=== PATIENT | female | born 1940 | race African-American/Black ===

== ENCOUNTER → 2016-09-17 | Day surgery (SDC) | payer MEDICARE, OTHER ==
[~2016-09-17] MED LIST: ACET325T9 PO; ALBU0.63 NEB; ALPR0.25 PEG; AMLO5TAB2 PEG; ATEN25TA PEG; BYSTOLIC5 MG PO; CEPH-264 PO; CETI10TA16 PO; CITA10TA4 PEG; CYPR4TAB PEG; DIPH25CA58 PO; DONE5TAB33 PEG; DONE5TAB7 PO; FENT1PAT17 TP; FENT1PAT91 TD; FENTANYL PF 100 MCG/2 ML VIAL. IV PRN; IPRA3AMP23 IH; IV RINGERS,LACTATED 1000ML 1,000 ML IV SCH; LEVO750T31 PO; LIDOCAINE 1% 1 ML SYRINGE. ID PRN; METO5SOL2 PEG; MIDAZOLAM HCL 2 MG/2 ML VIAL. IV PRN; ONDA4TAB12 PEG; OXYC-250 PEG; OXYC-323 PEG; OXYC5CAP3 PO; OXYC5SOL PEG; POLY17PO5 PO; PROAIR HFA8.5 GM IH; PROPOFOL 20 ML IV ONE; SACC250C PEG; SULF1TAB3 PO; VALS160T3 PEG
[2016-09-17 09:04] VITALS: BP 149/65
--- NOTE | 2016-09-17 09:58 | PDOC ---
G I PROGRESS NOTE Reason for Follow-up Leaking g-tube. Subjective Patient called office yesterday complaining of leaking tube. Presumed due to tube failure and scheduled for replacement today. On inspection of tube and conversation with patient, the tube itself is still functional, but the "plugs" for the holes in the feeding adaptor have been torn off, hence the leak. Physical Exam Abdomen benign. Tube as above. Flushed easily. Review of Relevant I have reviewed the following items miko (where applicable) has been applied. Medications Lactated Ringer's (Iv Lactated Ringers) 1,000 ml @ 125 mls/hr Q8H IV Last administered on 09/17/16t 09:09; Start 09/17/16 at 09:07; Stop 09/17/16 at 21:06 Active Scripts Active Atenolol 25 Mg Tablet 50 Mg PEG DAILY Amlodipine Besylate 5 Mg Tablet 5 Mg PEG DAILY Reported Bystolic (Nebivolol) 5 Mg Tablet 5 Mg PO DAILY Sulfamethoxazole-Tmp Ds Tablet (Sulfamethoxazole/Trimethoprim) 1 Each Tablet 1 Tab PO BID Oxycodone Hcl 5 Mg/5 Ml Solution 5 Mg PEG Q 4HRS PRN PAIN PRN Aricept (Donepezil Hcl) 5 Mg Tablet 5 Mg PEG DAILY Proair Hfa Inhaler (Albuterol Sulfate) 8.5 Gm Hfa.aer.ad 2 Puff IH PRN Q4-6HRS Albuterol Sulfate Neb Soln (Albuterol Sulfate) 0.63 Mg/3 Ml Vial.neb 1 Vial NEB PRN PRN Florastor (Saccharomyces Boulardii) 250 Mg Capsule 250 Mg PEG DAILY FENTANYL 50mcg/hr (Fentanyl) 1 Each Patch.td72 1 Patch TP Q3DAYS Xanax (Alprazolam) 0.25 Mg Tablet 0.25 Mg PEG DAILY PRN Citalopram Hbr (Citalopram Hydrobromide) 10 Mg Tablet 1 Tab PEG DAILY Ondansetron Odt (Ondansetron) 4 Mg Tab.rapdis 4 Mg PEG QIDPRN PRN Metoclopramide Hcl 5 Mg/5 Ml Solution 2 Mg PEG TID Cyproheptadine Hcl 4 Mg Tablet 2 Mg PEG TID Diovan (Valsartan) 160 Mg Tablet 160 Mg PEG DAILY Vitals/I & O Vital Sign - Last 24 Hours 09/17/16 09/17/16 09:00 09:04 Temp 98.2 98.2 Pulse 78 Resp 18 Pulse Ox 99 O2 Delivery Trach Collar O2 Flow Rate 2 Assessment Damaged feeding adaptor. Plan of Care Note New feeding adaptor attached to tube. Procedure cancelled. To call if any problems. PERRY MARION MD Sep 17, 2016 09:58
== END ==
LOC: SURG 08:22
PROVIDERS: ATTEND Internal Medicine Gastroenterology
DX: Z43.1 Encounter for attention to gastrostomy (principal); Z41.8 Encounter for other procedures for purposes other than remedying health state
CPT/HCPCS: 99211; J2704

== ENCOUNTER 2016-11-18 13:22 | Inpatient (IN) | payer MEDICARE, OTHER ==
[~2016-11-18] VITALS: Ht 170.2 cm; Wt 58.1 kg
[~2016-11-18 13:22] MED LIST changes: -FENTANYL PF 100 MCG/2 ML VIAL. IV PRN; -IV RINGERS,LACTATED 1000ML 1,000 ML IV SCH; -LIDOCAINE 1% 1 ML SYRINGE. ID PRN; -MIDAZOLAM HCL 2 MG/2 ML VIAL. IV PRN; -PROPOFOL 20 ML IV ONE
--- NOTE | 2016-11-18 14:08 | EKG ---
[facility] [address] [place] [address] Test Date: 2016-11-18 Test Time: 13:33:22 Pat Name: BERNARDO DE LEON Department: Room: Gender: F [employer]: : 1940 Requested By: Amanda MONTENEGRO Order Number: [id number] Reading MD: Measurements Intervals [place] Rate: 80 P: 22 CO: 236 QRS: -8 QRSD: 102 T: 41 QT: 404 QTc: 470 Interpretive Statements SINUS RHYTHM PROLONGED CO INTERVAL LEFT ATRIAL ABNORMALITY LEFTWARD AXIS RI6.01 Unconfirmed report No previous ECG available for comparison
[2016-11-18 14:12] LABS: BASO # 0.1 x10^3/uL (0.0-0.2); BASO % 1 % (0-3); EOS % 0 % (0-3); HEMATOCRIT 35.5 % (36.0-47.0); HEMOGLOBIN 11.4 g/dL (12.0-15.5); LYMPH # 2.1 x10^3/uL (1.0-4.8); LYMPH % 13 % (24-48); MEAN CORPUSCULAR HEMOGLOBIN 28 pg (25-35); MEAN CORPUSCULAR HGB CONC 32 g/dL (31-37); MEAN CORPUSCULAR VOLUME 86 fL (79-100); MONO % 5 % (0-9); NEUT % 80 % (31-73); PLATELET COUNT 349 x10^3/uL (140-400); RED BLOOD COUNT 4.15 x10^6/uL (3.50-5.40); RED CELL DISTRIBUTION WIDTH 15.3 % (11.5-14.5); WHITE BLOOD COUNT 15.9 x10^3/uL (4.0-11.0)
[2016-11-18 14:31] LABS: CALCIUM 9.3 mg/dL (8.5-10.1); GFR 65.4; POTASSIUM 3.7 mmol/L (3.5-5.1)
[2016-11-18 14:37] LABS: % BASOS 1 % (0-3)
[2016-11-18 14:39] LABS: PLT ESTIMATE ADEQUATE (ADEQUATE)
[2016-11-18 14:40] LABS: STOMATOCYTES MANY
[2016-11-18 14:42] LABS: TOXIC GRANULATION SLIGHT; TOXIC VACUOLATION SLIGHT
--- NOTE | 2016-11-18 14:50 | RAD ---
EXAM: Chest 2 views. HISTORY: Cough, shortness of breath, lung cancer. COMPARISON: 05/09/2016. FINDINGS: Frontal and lateral views of the chest are obtained. A tracheostomy appliance projects in expected position. A right-sided port catheter has its tip in the superior cavoatrial junction. Surgical clips are seen at the hiatus. A gastrostomy catheter is also noted. Retrocardiac opacity and volume loss is unchanged and corresponds with posttreatment change on prior CT of 07/17/2016. There are mild predominant interstitial opacities in the right base, new since the prior study. There is no pneumothorax or pleural effusion. The heart is not enlarged. There are atherosclerotic calcifications of the aorta. Hyperinflation is consistent with chronic obstructive pulmonary disease. IMPRESSION: 1. Airspace opacity in the right base consistent with aspiration, mild pulmonary edema, or pneumonia. 2. Posttreatment changes in the left lower lobe.
--- NOTE | 2016-11-18 15:14 | PHYS DOC ---
Past Medical History Past Medical History: Cancer, Hypertension, MRSA, Other Additional Past Medical Histor: LUNG AND LYMPH NODES CANCER Past Surgical History: Other Additional Past Surgical Histo: cataract, PEG tube, ca, TRACH Alcohol Use: None Drug Use: None Adult General Chief Complaint Chief Complaint: SHORTNESS OF BREATH HPI HPI Patient is a 76 year old female who presents with cough, dyspnea, and purulent trach sputum worsening over the past few days. She had decreased activity and is not performing her daily activities as well as usual (not feeding herself or giving herself meds). Has some left lower chest pain that is mild and achy. Has been able to ambulate to the restroom with assistance. Denies palpitations , lightheadedness, dizziness, vision changes, numbness, tingling, focal weakness. Review of Systems Review of Systems Constitutional: Denies fever or chills [] Eyes: Denies change in visual acuity, redness, or eye pain [] HENT: Denies nasal congestion or sore throat [] Respiratory: Has cough and shortness of breath [] Cardiovascular: No additional information not addressed in HPI [] GI: Denies abdominal pain, nausea, vomiting, bloody stools or diarrhea [] : Denies dysuria or hematuria [] Musculoskeletal: Denies back pain or joint pain [] Integument: Denies rash or skin lesions [] Neurologic: Denies headache, focal weakness or sensory changes [] Endocrine: Denies polyuria or polydipsia [] Current Medications Current Medications Allergies Allergies Allergies Coded Allergies Type Severity Reaction Last Updated Verified No Known Medication Allergies Allergy Unknown 09/17/16 Yes Physical Exam Physical Exam Constitutional: Well developed, thin, no acute distress, non-toxic appearance. [ ] HENT: Normocephalic, atraumatic, bilateral external ears normal, oropharynx moist, nose normal. [] Eyes: PERRLA, EOMI. [] Neck: Normal range of motion, supple. Trach midline with small amount of purulent discharge, nontender trachea [] Cardiovascular:Heart rate regular rhythm [] Lungs & Thorax: Mildly course bilateral breath sounds, no crackles or wheezing [] Abdomen: Bowel sounds normal, soft, no tenderness. [] Skin: Warm, dry, no erythema, no rash. [] Back: No tenderness, no CVA tenderness. [] Extremities: No tenderness, ROM intact. [] Neurologic: Alert, normal motor function, normal sensory function, no focal deficits noted. [] Psychologic: Affect normal, judgement normal, mood normal. [] Current Patient Data Vital Signs Vital Signs Date Time Temp Pulse Resp B/P Pulse Ox O2 Delivery O2 Flow Rate FiO2 11/18/16 14:58 76 172/79 100 Nasal Cannula 3 11/18/16 13:27 97.8 26 97.8 Lab Values Laboratory Tests Test 11/18/16 14:00 White Blood Count 15.9x10^3/uL (4.0-11.0) H Red Blood Count 4.15x10^6/uL (3.50-5.40) Hemoglobin 11.4g/dL (12.0-15.5) L Hematocrit 35.5% (36.0-47.0) L Mean Corpuscular Volume 86fL (79-100) Mean Corpuscular Hemoglobin 28pg (25-35) Mean Corpuscular Hemoglobin Concent 32g/dL (31-37) Red Cell Distribution Width 15.3% (11.5-14.5) H Platelet Count 349x10^3/uL (140-400) Neutrophils (%) (Auto) 80% (31-73) H Lymphocytes (%) (Auto) 13% (24-48) L Monocytes (%) (Auto) 5% (0-9) Eosinophils (%) (Auto) 0% (0-3) Basophils (%) (Auto) 1% (0-3) Neutrophils # (Auto) 12.8x10^3uL (1.8-7.7) H Lymphocytes # (Auto) 2.1x10^3/uL (1.0-4.8) Monocytes # (Auto) 0.8x10^3/uL (0.0-1.1) Eosinophils # (Auto) 0.1x10^3/uL (0.0-0.7) Basophils # (Auto) 0.1x10^3/uL (0.0-0.2) Segmented Neutrophils % 82% (35-66) H Band Neutrophils % 8% (0-9) Lymphocytes % 8% (24-48) L Monocytes % 1% (0-10) Basophils % 1% (0-3) Toxic Granulation Slight Toxic Vacuolation Slight Platelet Estimate Adequate (ADEQUATE) Stomatocytes Many Sodium Level 135mmol/L (136-145) L Potassium Level 3.7mmol/L (3.5-5.1) Chloride Level 95mmol/L (98-107) L Carbon Dioxide Level 35mmol/L (21-32) H Anion Gap 5 (6-14) L Blood Urea Nitrogen 21mg/dL (7-20) H Creatinine 1.0mg/dL (0.6-1.0) Estimated GFR (Cockcroft-Gault) 65.4 Glucose Level 141mg/dL (70-99) H Calcium Level 9.3mg/dL (8.5-10.1) Laboratory Tests 11/18/16 14:00 Laboratory Tests 11/18/16 14:00 EKG EKG EKG as interpreted by me as normal sinus rhythm with first-degree block, rate 80 , no ST-T changes, AL 236, QTC 470, no ectopy Back there Radiology/Procedures Radiology/Procedures Chest x-ray as interpreted by me as new right lower lung field infiltrate, otherwise nonacute Course & Med Decision Making Course & Med Decision Making Pertinent Labs and Imaging studies reviewed. (See chart for details) She has new oxygen requirement, leukocytosis, and concerning chest film. Will admit for severe community acquired pneumonia. Discussed case with Dr. Nina, who will admit. Román Disclaimer Román Disclaimer This electronic medical record was generated, in whole or in part, using a voice recognition dictation system. Departure Departure Impression: Primary Impression: CAP (community acquired pneumonia) Disposition: ADMITTED INPATIENT Condition: STABLE Referrals: CATHERINE MOSCOSO MD (PCP) Amanda MONTENEGRO MD Nov 18, 2016 15:14
[2016-11-18] MEDS ORDERED: LEVOFLOXACIN PER PHARMACY MC PRN (15:15)
[2016-11-18] MEDS ORDERED: MAG HYDROX/ALUMINUM HYD/SIMETH 30 ML ORAL.SUSP PO PRN (15:45)
[2016-11-18] MEDS ORDERED: LACTULOSE 20 GM/30 ML SOLUTION. PO PRN (15:45)
[2016-11-18] MEDS ORDERED: CALCIUM CARBONATE 500 MG TAB.CHEW PO PRN (15:45)
[2016-11-18] MEDS ORDERED: MAGNESIUM HYDROXIDE 2,400 MG/30 ML ORAL.SUSP. PO PRN (15:45)
[2016-11-18] MEDS ORDERED: ACETAMINOPHEN 325 MG TABLET. PO PRN (15:45)
[2016-11-18] MEDS ORDERED: PIP/TAZO PER PHARMACY MC PRN (15:45)
[2016-11-18] MEDS ORDERED: IBUPROFEN 400 MG TABLET. PO PRN (15:45)
[2016-11-18] MEDS ORDERED: BISACODYL 10 MG SUPP.RECT PR PRN (15:45)
[2016-11-18] MEDS ORDERED: MORPHINE SULFATE 2 MG/ML DISP.SYRIN. IV PRN (15:45)
[2016-11-18] MEDS ORDERED: PROCHLORPERAZINE 10 MG/2 ML VIAL. IV PRN (15:45)
[2016-11-18] MEDS ORDERED: PROCHLORPERAZINE 25 MG SUPP.RECT. PR PRN (15:45)
--- NOTE | 2016-11-18 15:56 | PDOC1 ---
History and Physical Date of Admission Date of Admission DATE: 11/18/16 TIME: 15:48 Identification/Chief Complaint Chief Complaint change in sputum, lots of secretions in trach Source Source: Caregiver, Chart review, Patient History of Present Illness History of Present Illness 76 y.o AA female with hx laryngeal CA with indwelling trach, lung CA stage 3 NO MO s/p radiation and chemo - off tx ( cancer free now), comes in bec of [facility] in secretions in her trach, change in color from green, yellow, gramajo and some admixed with blood. NO fevers, HAs indwelling PEG and she does her own Jevity 1,.2 8 cans a day. Dtr at bedside but pt lives alone at home,. CXR shows PNA on R base and middle lobe with atelectasis, WBC 15.9, no lactate drawn, REst of labs ok,. VS ok Past Medical History Cardiovascular: HTN Pulmonary: Other CENTRAL NERVOUS SYSTEM: Other GI: Other Heme/Onc: Anemia NOS Hepatobiliary: No pertinent hx Psych: No pertinent hx Musculoskeletal: Osteoarthritis Rheumatologic: No pertinent hx Infectious disease: No pertinent hx Renal/: No pertinent hx Endocrine: No pertinent hx Past Surgical History Past Surgical History: Cataract Removal, Other Family History Family History: Heart Disease, Family History Unknown Social History Smoke: Quit ALCOHOL: none Drugs: None Current Problem List Problem List Problems Medical Problems: (1) CAP (community acquired pneumonia) Status: Acute (2) CAP (community acquired pneumonia) Status: Acute Problems: Current Medications Current Medications Current Medications Levofloxacin/ Dextrose 1 each 1 each PRN DAILY PRN MC SEE COMMENTS; Start at 15:15 Levofloxacin/ Dextrose 150 ml @ 100 mls/hr 1X ONCE IV Last administered on t 15:19; Start 11/18/16 at 15:45; Stop 11/18/16 at 17:14 Levofloxacin/ Dextrose (LEVAQUIN 750mg PREMIX) 150 ml @ 100 mls/hr Q48H IV ; Start 11/20/16 at 16:00 Ondansetron HCl (Zofran) 4 mg PRN Q6HRS PRN IV NAUSEA/VOMITING; Start 11/18/16 at 15:45; Status UNV Prochlorperazine Edisylate (Compazine) 10 mg PRN Q6HRS PRN IV NAUSEA/VOMITING; Start 11/18/16 at 15:45; Status UNV Prochlorperazine (Compazine) 25 mg PRN Q12HR PRN [place] NAUSEA/VOMITING; Start 11/18 at 15:45; Status UNV Al Hydroxide/Mg Hydroxide (Mylanta Plus Xs) 30 ml PRN Q3HRS PRN PO HEARTBURN / GAS; Start 11/18/16 at 15:45; Status UNV Calcium Carbonate/ Glycine (Tums) 500 mg PRN Q3HRS PRN PO UPSET STOMACH; Start 11/18/16 at 15:45; Status UNV Oxycodone HCl (Roxicodone) 5 mg PRN Q3HRS PRN PO BREAKTHROUGH PAIN; Start at 15:45; Status UNV Morphine Sulfate 1 mg PRN Q2HR PRN IV PAIN; Start 11/18/16 at 15:45; Status UNV Acetaminophen (Tylenol) 650 mg PRN Q6HRS PRN PO MILD PAIN / TEMP; Start at 15:45; Status UNV Ibuprofen (Motrin) 400 mg PRN Q6HRS PRN PO MILD PAIN; Start 11/18/16 at 15:45; Status UNV Docusate Sodium (Colace) 100 mg BID PO ; Start 11/18/16 at 21:00; Status UNV Magnesium Hydroxide (Milk Of Magnesia) 2,400 mg PRN Q12HR PRN PO CONSTIPATION; Start 11/18/16 at 15:45; Status UNV Lactulose 20 gm PRN Q12HR PRN PO CONSTIPATION; Start 11/18/16 at 15:45; Status UNV Bisacodyl (Dulcolax Supp) 10 mg PRN DAILY PRN [place] CONSTIPATION; Start 11/18/16 at 15:45; Status UNV Enoxaparin Sodium (Lovenox 40mg Syringe) 40 mg Q24H SQ ; Start 11/18/16 at 15:45 ; Status UNV Piperacillin Sod/ Tazobactam Sod (Zosyn Per Pharmacy) 1 each PRN DAILY PRN MC SEE COMMENTS; Start 11/18/16 at 15:45; Status UNV Guaifenesin (Robitussin Dm) 10 ml QID PO ; Start 11/18/16 at 17:00; Status UNV Active Scripts Active Atenolol 25 Mg Tablet 50 Mg PEG DAILY Amlodipine Besylate 5 Mg Tablet 5 Mg PEG DAILY Reported Bystolic (Nebivolol) 5 Mg Tablet 5 Mg PO DAILY Sulfamethoxazole-Tmp Ds Tablet (Sulfamethoxazole/Trimethoprim) 1 Each Tablet 1 Tab PO BID Oxycodone Hcl 5 Mg/5 Ml Solution 5 Mg PEG Q 4HRS PRN PAIN PRN Aricept (Donepezil Hcl) 5 Mg Tablet 5 Mg PEG DAILY Proair Hfa Inhaler (Albuterol Sulfate) 8.5 Gm Hfa.aer.ad 2 Puff IH PRN Q4-6HRS Albuterol Sulfate Neb Soln (Albuterol Sulfate) 0.63 Mg/3 Ml Vial.neb 1 Vial NEB PRN PRN Florastor (Saccharomyces Boulardii) 250 Mg Capsule 250 Mg PEG DAILY FENTANYL 50mcg/hr (Fentanyl) 1 Each Patch.td72 1 Patch TP Q3DAYS Xanax (Alprazolam) 0.25 Mg Tablet 0.25 Mg PEG DAILY PRN Citalopram Hbr (Citalopram Hydrobromide) 10 Mg Tablet 1 Tab PEG DAILY Ondansetron Odt (Ondansetron) 4 Mg Tab.rapdis 4 Mg PEG QIDPRN PRN Metoclopramide Hcl 5 Mg/5 Ml Solution 2 Mg PEG TID Cyproheptadine Hcl 4 Mg Tablet 2 Mg PEG TID Diovan (Valsartan) 160 Mg Tablet 160 Mg PEG DAILY Allergies Allergies: Coded Allergies: No Known Medication Allergies (Verified Allergy, Unknown, 09/17/16) ROS Review of System cant be obtained, trached, weak Physical Exam General: Oriented X3, Cooperative, Other (weak) HEENT: Atraumatic, PERRLA Lungs: Normal air movement, Other (dec BS R base, no wheezes) Heart: S1S2, RRR Cardiovascular: S1, S2 Breasts: Normal Abdomen: Normal bowel sounds, Soft, No tenderness, No hepatosplenomegaly, No masses, Other (indwelling PEG) Rectal Exam: not examined PELVIC: Nml ext genitalia Extremities: No clubbing, No cyanosis, No edema, Normal pulses, No tenderness/ swelling Skin: No rashes, No breakdown, No significant lesion Psych/Mental Status: Mental status NL, Mood NL Vitals Vitals Vital Signs Date Time Temp Pulse Resp B/P Pulse Ox O2 Delivery O2 Flow Rate FiO2 3/7/17 13:27 97.8 80 26 188/87 84 Room Air 97.8 Labs Labs Laboratory Tests Test 11/18/16 14:00 White Blood Count 15.9x10^3/uL (4.0-11.0) Red Blood Count 4.15x10^6/uL (3.50-5.40) Hemoglobin 11.4g/dL (12.0-15.5) Hematocrit 35.5% (36.0-47.0) Mean Corpuscular Volume 86fL (79-100) Mean Corpuscular Hemoglobin 28pg (25-35) Mean Corpuscular Hemoglobin Concent 32g/dL (31-37) Red Cell Distribution Width 15.3% (11.5-14.5) Platelet Count 349x10^3/uL (140-400) Neutrophils (%) (Auto) 80% (31-73) Lymphocytes (%) (Auto) 13% (24-48) Monocytes (%) (Auto) 5% (0-9) Eosinophils (%) (Auto) 0% (0-3) Basophils (%) (Auto) 1% (0-3) Neutrophils # (Auto) 12.8x10^3uL (1.8-7.7) Lymphocytes # (Auto) 2.1x10^3/uL (1.0-4.8) Monocytes # (Auto) 0.8x10^3/uL (0.0-1.1) Eosinophils # (Auto) 0.1x10^3/uL (0.0-0.7) Basophils # (Auto) 0.1x10^3/uL (0.0-0.2) Segmented Neutrophils % 82% (35-66) Band Neutrophils % 8% (0-9) Lymphocytes % 8% (24-48) Monocytes % 1% (0-10) Basophils % 1% (0-3) Toxic Granulation Slight Toxic Vacuolation Slight Platelet Estimate Adequate (ADEQUATE) Stomatocytes Many Sodium Level 135mmol/L (136-145) Potassium Level 3.7mmol/L (3.5-5.1) Chloride Level 95mmol/L (98-107) Carbon Dioxide Level 35mmol/L (21-32) Anion Gap 5 (6-14) Blood Urea Nitrogen 21mg/dL (7-20) Creatinine 1.0mg/dL (0.6-1.0) Estimated GFR (Cockcroft-Gault) 65.4 Glucose Level 141mg/dL (70-99) Calcium Level 9.3mg/dL (8.5-10.1) Laboratory Tests Test 11/18/16 14:00 White Blood Count 15.9x10^3/uL (4.0-11.0) Red Blood Count 4.15x10^6/uL (3.50-5.40) Hemoglobin 11.4g/dL (12.0-15.5) Hematocrit 35.5% (36.0-47.0) Mean Corpuscular Volume 86fL (79-100) Mean Corpuscular Hemoglobin 28pg (25-35) Mean Corpuscular Hemoglobin Concent 32g/dL (31-37) Red Cell Distribution Width 15.3% (11.5-14.5) Platelet Count 349x10^3/uL (140-400) Neutrophils (%) (Auto) 80% (31-73) Lymphocytes (%) (Auto) 13% (24-48) Monocytes (%) (Auto) 5% (0-9) Eosinophils (%) (Auto) 0% (0-3) Basophils (%) (Auto) 1% (0-3) Neutrophils # (Auto) 12.8x10^3uL (1.8-7.7) Lymphocytes # (Auto) 2.1x10^3/uL (1.0-4.8) Monocytes # (Auto) 0.8x10^3/uL (0.0-1.1) Eosinophils # (Auto) 0.1x10^3/uL (0.0-0.7) Basophils # (Auto) 0.1x10^3/uL (0.0-0.2) Segmented Neutrophils % 82% (35-66) Band Neutrophils % 8% (0-9) Lymphocytes % 8% (24-48) Monocytes % 1% (0-10) Basophils % 1% (0-3) Toxic Granulation Slight Toxic Vacuolation Slight Platelet Estimate Adequate (ADEQUATE) Stomatocytes Many Sodium Level 135mmol/L (136-145) Potassium Level 3.7mmol/L (3.5-5.1) Chloride Level 95mmol/L (98-107) Carbon Dioxide Level 35mmol/L (21-32) Anion Gap 5 (6-14) Blood Urea Nitrogen 21mg/dL (7-20) Creatinine 1.0mg/dL (0.6-1.0) Estimated GFR (Cockcroft-Gault) 65.4 Glucose Level 141mg/dL (70-99) Calcium Level 9.3mg/dL (8.5-10.1) VTE Prophylaxis Ordered VTE Prophylaxis Devices: Yes VTE Pharmacological Prophylaxi: Yes Assessment/Plan Assessment/Plan 1. CAP 2. SIRS POA, no sepsis 3. LUng CA stage 3 N0M0, s/p radiation and chemo - claims to be cancer free 4. Laryngeal CA currently trached 5. Dysphagia with indwelling pEG on TF 6. 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 AOCD 8. HTN 9. Hx DVT 10. HX COPD< prev heavy smoker 11. HTN, dyslipdimeia - chronic stable PLAN: Add zosyn to levaquin Consult pulmo given co morbiods DVT prophy given clinical hx Check sputum cx and gram stain NUtrition consult for tF PT/OT Resume home meds COugh med Dw ER and pt and dtr Seen at ER HEAVEN KRAUS MD Nov 18, 2016 15:56
[2016-11-18] MEDS ORDERED: ONDANSETRON ODT 4 MG TAB.RAPDIS PEG PRN (16:00)
--- NOTE | 2016-11-18 16:03 | ACF ---
Admission Forms Criteria PNEUMONIA, COMMUNITY ACQUIRED Clinical Indications for Admission to Inpatient Care ( Place 'X' for any and all applicable criteria): Admission is indicated for ANY ONE of the following (1)(2)(3): [ ]I. Hypoxemia indicated by ANY ONE of the following: [ ]a) Oxygen saturation less than 90% while breathing room air [ ]b) PO2 less than 60 mm Hg (8.0 kPa) while breathing room air [ ]c) Chronic lung disease with significant deterioration from baseline oxygenation [ ]II. Appropriate diagnostic testing and treatment unavailable in outpatient or recovery facility (eg,testing or infection control measures unavailable(10) [X]III. Moderate-risk or high-risk category patients (Pneumonia Severity Index (PSI) class IV or V, or CURB-65 score of 3 or greater). [ ]IV. Outpatient treatment failure as indicated by ANY ONE of the following(9) : [ ]a) Failure to respond to antibiotic (eg, resistant organism) [ ]b) Clinically significant adverse effects from medication (eg, vomiting) [ ]c) Complications of pneumonia (eg, empyema, bacteremia) [ ]d) Significant worsening of comorbid cond necessitating inpatient care (eg, chronic heart failure) [ ]V. Intermediate-risk category patients (eg, PSI class III or CURB-65 score 2) who do not improve with initial therapy and observation. [ ]. Immunocompromised patients (eg, AIDS, chronic steroid use) at moderate or high risk based on clinical evaluation. [ ]VII. Complicated pleural effusions (eg, exudative, loculated) [ ]VIII.Hemodynamic instability [ ] IX. Altered mental status that is severe or persistent. [ ]X. Dehydration that is severe or persistent. [ ]XI. Bacteremia [ ]XII. Respiratory finding (eg. tachypnea) that do not respond to outpatient or observation care treatment Extended stay beyond goal length of stay may be needed for (20) [ ]a) Unclear diagnosis [ ]b) Pleural disease [ ]c) Severe pneumonia or treatment failure (25 [ ]d) Respiratory failure (anticipate invasive or noninvasive ventilatory support) [ ]e) Abnormal serum electrolytes (serum Na concentration less than 135 mEq/L (mmol/L) (32)(33) [ ]f) Clinically significant comorbid illness (eg, heart failure, atrial fibrillation with rapid heart rate, alcohol withdrawal, renal insufficiency)(34)(35) [ ]g) Comorbid acute exacerbation of COPD(36) [ ]h) Concomitant diagnosis of malignancy that may be associated with malnutrition, immunologic impairment, or bronchial obstruction. [ ]i) Concomitant altered mental status [ ]j) Culture-identified Gram-negative or antibiotic-resistant organism (eg, Pseudomonas, methicillin-resistant Staphylococcus aureus)(30) [ ]k) Healthcare-associated pneumonia The original [employer] content created by [employer] has been revised. The portions of the content which have been revised are identified through the use of italic text or in bold, and [facility] has neither reviewed nor approved the modified material. All other unmodified content is copyright [employer]. Please see references footnoted in the original [facility] [employer] edition 2016 Admission Criteria Met?: Yes ENRRIQUE LEWIS Nov 18, 2016 16:03
[2016-11-18] MEDS ORDERED: ALBUTEROL SULFATE 2.5 MG/3 ML NEBU. NEB PRN (16:15)
[2016-11-18 16:24] VITALS: BP 137/80
[2016-11-18] MEDS: DONEPEZIL HCL 5 MG TABLET. PEG SCH (16:30)
[2016-11-18] MEDS: AMLODIPINE BESYLATE 5 MG TABLET PEG SCH (16:30)
[2016-11-18] MEDS: LOSARTAN POTASSIUM 50 MG TABLET. PO SCH (16:30)
[2016-11-18] MEDS: ATENOLOL 25 MG TABLET PEG SCH (16:30)
[2016-11-18] MEDS: PIPERACILLIN/TAZOBACTAM 3.375 GM in IV NORMAL SALINE 50ML 50 ML IV SCH ×2 (17:30→23:31)
[2016-11-18] MEDS: CITALOPRAM 10 MG TABLET. PEG SCH (17:32)
[2016-11-18] MEDS: OXYCODONE IR 5 MG TABLET. PO PRN (17:37)
[2016-11-18] MEDS: METOCLOPRAMIDE HCL 10 MG/10 ML SOLUTION. PO SCH (17:40)
[2016-11-18] MEDS: GUAIFENESIN DM 200MG/20MG 10 ML SYRUP. PO SCH ×2 (18:26→20:13)
[2016-11-18 18:58] VITALS: BP 137/80
[2016-11-18 19:00] VITALS: BP 136/71
[2016-11-18] MEDS: DOCUSATE SODIUM 100 MG CAPSULE PO SCH (20:13)
[2016-11-18] MEDS: METOPROLOL TART IMMED RELEASE 25 MG TABLET PO SCH (20:13)
[2016-11-18] MEDS: CYPROHEPTADINE 4 MG TABLET. PEG SCH (20:14)
[2016-11-18] MEDS: ONDANSETRON PF 4 MG/2 ML VIAL. IV PRN (20:14)
[2016-11-18] MEDS: ALPRAZOLAM 0.25 MG TABLET PEG PRN (20:15)
[2016-11-18] MEDS: ENOXAPARIN 40 MG/0.4 ML DISP.SYRIN. SQ SCH (20:15)
[2016-11-18] MEDS: IPRATRPIUM/ALBUTEROL 0.5/2.5MG 3 ML NEBU. NEB SCH ×2 (20:45→20:59)
[2016-11-18 23:00] VITALS: BP 173/88
[2016-11-19 03:00] VITALS: BP 135/70
[2016-11-19] MEDS: PIPERACILLIN/TAZOBACTAM 3.375 GM in IV NORMAL SALINE 50ML 50 ML IV SCH ×4 (06:23→23:58)
[2016-11-19 06:38] LABS: BASO % 0 % (0-3); EOS % 0 % (0-3); HEMATOCRIT 34.6 % (36.0-47.0); HEMOGLOBIN 10.9 g/dL (12.0-15.5); LYMPH # 2.4 x10^3/uL (1.0-4.8); LYMPH % 17 % (24-48); MEAN CORPUSCULAR HEMOGLOBIN 27 pg (25-35); MEAN CORPUSCULAR HGB CONC 31 g/dL (31-37); MEAN CORPUSCULAR VOLUME 86 fL (79-100); MONO % 6 % (0-9); NEUT % 77 % (31-73); PLATELET COUNT 337 x10^3/uL (140-400); RED BLOOD COUNT 4.01 x10^6/uL (3.50-5.40); RED CELL DISTRIBUTION WIDTH 15.5 % (11.5-14.5); WHITE BLOOD COUNT 13.9 x10^3/uL (4.0-11.0)
[2016-11-19 06:44] LABS: CALCIUM 9.5 mg/dL (8.5-10.1); CREATININE 1.1 mg/dL (0.6-1.0); GFR 58.6; POTASSIUM 3.6 mmol/L (3.5-5.1)
[2016-11-19 07:00] VITALS: BP 145/60
[2016-11-19] MEDS: IPRATRPIUM/ALBUTEROL 0.5/2.5MG 3 ML NEBU. NEB SCH ×4 (07:24→19:47)
[2016-11-19] MEDS: GUAIFENESIN DM 200MG/20MG 10 ML SYRUP. PO SCH ×4 (09:00→22:00)
[2016-11-19] MEDS: DOCUSATE SODIUM 100 MG CAPSULE PO SCH ×3 (09:00→22:02)
[2016-11-19] MEDS: METOCLOPRAMIDE HCL 10 MG/10 ML SOLUTION. PO SCH ×3 (09:42→18:14)
[2016-11-19] MEDS: CYPROHEPTADINE 4 MG TABLET. PEG SCH ×3 (09:43→22:01)
[2016-11-19] MEDS: AMLODIPINE BESYLATE 5 MG TABLET PEG SCH (09:44)
[2016-11-19] MEDS: LOSARTAN POTASSIUM 50 MG TABLET. PO SCH (09:44)
[2016-11-19] MEDS: CITALOPRAM 10 MG TABLET. PEG SCH (09:45)
[2016-11-19] MEDS: ATENOLOL 25 MG TABLET PEG SCH (09:45)
[2016-11-19] MEDS: SACCHAROMYCES BOULARDII 250 MG CAPSULE. PEG SCH (09:45)
[2016-11-19] MEDS: DONEPEZIL HCL 5 MG TABLET. PEG SCH (09:45)
[2016-11-19] MEDS: FENTANYL 50MCG/HR PATCH. TD SCH (09:46)
[2016-11-19] MEDS: METOPROLOL TART IMMED RELEASE 25 MG TABLET PO SCH ×2 (09:46→22:02)
[2016-11-19] MEDS: OXYCODONE IR 5 MG TABLET. PO PRN ×2 (09:58→13:55)
--- NOTE | 2016-11-19 10:37 | PDOC ---
PROGRESS NOTES Chief Complaint Chief Complaint 1. CAP 2. SIRS POA, no sepsis 3. LUng CA stage 3 N0M0, s/p radiation and chemo - claims to be cancer free 4. Laryngeal CA currently trached 5. Dysphagia with indwelling pEG on TF 6. 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 AOCD 8. HTN 9. Hx DVT 10. HX COPD< prev heavy smoker 11. HTN, dyslipdimeia - chronic stable History of Present Illness History of Present Illness Doing ok No fevers Tolerating tube feeds Tracheal secretions have just been sent PLAN: CPM Await pulmo Ff up tracheal secretions sent to lab PT/OT Monitor leukocytosis Vitals Vitals Vital Signs Date Time Temp Pulse Resp B/P Pulse Ox O2 Delivery O2 Flow Rate FiO2 11/19/16 09:58 88 Nasal Cannula 2.0 11/19/16 09:46 85 145/60 11/19/16 07:00 98.7 20 98.7 Physical Exam General: Oriented X3, Cooperative, Other (weak) Lungs: Clear, Other Abdomen: Normal bowel sounds, Soft, No tenderness, No hepatosplenomegaly, No masses, Other (indwelling PEG) Extremities: No clubbing, No cyanosis, No edema, Normal pulses, No tenderness/ swelling Skin: No rashes, No breakdown, No significant lesion Labs LABS Laboratory Tests Test 11/18/16 14:00 11/19/16 06:15 White Blood Count 15.9x10^3/uL (4.0-11.0) 13.9x10^3/uL (4.0-11.0) Red Blood Count 4.15x10^6/uL (3.50-5.40) 4.01x10^6/uL (3.50-5.40) Hemoglobin 11.4g/dL (12.0-15.5) 10.9g/dL (12.0-15.5) Hematocrit 35.5% (36.0-47.0) 34.6% (36.0-47.0) Mean Corpuscular Volume 86fL (79-100) 86fL (79-100) Mean Corpuscular Hemoglobin 28pg (25-35) 27pg (25-35) Mean Corpuscular Hemoglobin Concent 32g/dL (31-37) 31g/dL (31-37) Red Cell Distribution Width 15.3% (11.5-14.5) 15.5% (11.5-14.5) Platelet Count 349x10^3/uL (140-400) 337x10^3/uL (140-400) Neutrophils (%) (Auto) 80% (31-73) 77% (31-73) Lymphocytes (%) (Auto) 13% (24-48) 17% (24-48) Monocytes (%) (Auto) 5% (0-9) 6% (0-9) Eosinophils (%) (Auto) 0% (0-3) 0% (0-3) Basophils (%) (Auto) 1% (0-3) 0% (0-3) Neutrophils # (Auto) 12.8x10^3uL (1.8-7.7) 10.6x10^3uL (1.8-7.7) Lymphocytes # (Auto) 2.1x10^3/uL (1.0-4.8) 2.4x10^3/uL (1.0-4.8) Monocytes # (Auto) 0.8x10^3/uL (0.0-1.1) 0.8x10^3/uL (0.0-1.1) Eosinophils # (Auto) 0.1x10^3/uL (0.0-0.7) 0.0x10^3/uL (0.0-0.7) Basophils # (Auto) 0.1x10^3/uL (0.0-0.2) 0.0x10^3/uL (0.0-0.2) Segmented Neutrophils % 82% (35-66) Band Neutrophils % 8% (0-9) Lymphocytes % 8% (24-48) Monocytes % 1% (0-10) Basophils % 1% (0-3) Toxic Granulation Slight Toxic Vacuolation Slight Platelet Estimate Adequate (ADEQUATE) Stomatocytes Many Sodium Level 135mmol/L (136-145) 136mmol/L (136-145) Potassium Level 3.7mmol/L (3.5-5.1) 3.6mmol/L (3.5-5.1) Chloride Level 95mmol/L (98-107) 98mmol/L (98-107) Carbon Dioxide Level 35mmol/L (21-32) 37mmol/L (21-32) Anion Gap 5 (6-14) 1 (6-14) Blood Urea Nitrogen 21mg/dL (7-20) 19mg/dL (7-20) Creatinine 1.0mg/dL (0.6-1.0) 1.1mg/dL (0.6-1.0) Estimated GFR (Cockcroft-Gault) 65.4 58.6 Glucose Level 141mg/dL (70-99) 102mg/dL (70-99) Calcium Level 9.3mg/dL (8.5-10.1) 9.5mg/dL (8.5-10.1) Review of Systems Review of Systems dementia. trached - unable to obtain Assessment and Plan Assessmemt and Plan Problems Medical Problems: (1) CAP (community acquired pneumonia) Status: Acute (2) CAP (community acquired pneumonia) Status: Acute Problems: Comment Review of Relevant I have reviewed the following items miko (where applicable) has been applied. Labs Laboratory Tests Test 11/18/16 14:00 11/19/16 06:15 White Blood Count 15.9x10^3/uL (4.0-11.0) 13.9x10^3/uL (4.0-11.0) Red Blood Count 4.15x10^6/uL (3.50-5.40) 4.01x10^6/uL (3.50-5.40) Hemoglobin 11.4g/dL (12.0-15.5) 10.9g/dL (12.0-15.5) Hematocrit 35.5% (36.0-47.0) 34.6% (36.0-47.0) Mean Corpuscular Volume 86fL (79-100) 86fL (79-100) Mean Corpuscular Hemoglobin 28pg (25-35) 27pg (25-35) Mean Corpuscular Hemoglobin Concent 32g/dL (31-37) 31g/dL (31-37) Red Cell Distribution Width 15.3% (11.5-14.5) 15.5% (11.5-14.5) Platelet Count 349x10^3/uL (140-400) 337x10^3/uL (140-400) Neutrophils (%) (Auto) 80% (31-73) 77% (31-73) Lymphocytes (%) (Auto) 13% (24-48) 17% (24-48) Monocytes (%) (Auto) 5% (0-9) 6% (0-9) Eosinophils (%) (Auto) 0% (0-3) 0% (0-3) Basophils (%) (Auto) 1% (0-3) 0% (0-3) Neutrophils # (Auto) 12.8x10^3uL (1.8-7.7) 10.6x10^3uL (1.8-7.7) Lymphocytes # (Auto) 2.1x10^3/uL (1.0-4.8) 2.4x10^3/uL (1.0-4.8) Monocytes # (Auto) 0.8x10^3/uL (0.0-1.1) 0.8x10^3/uL (0.0-1.1) Eosinophils # (Auto) 0.1x10^3/uL (0.0-0.7) 0.0x10^3/uL (0.0-0.7) Basophils # (Auto) 0.1x10^3/uL (0.0-0.2) 0.0x10^3/uL (0.0-0.2) Segmented Neutrophils % 82% (35-66) Band Neutrophils % 8% (0-9) Lymphocytes % 8% (24-48) Monocytes % 1% (0-10) Basophils % 1% (0-3) Toxic Granulation Slight Toxic Vacuolation Slight Platelet Estimate Adequate (ADEQUATE) Stomatocytes Many Sodium Level 135mmol/L (136-145) 136mmol/L (136-145) Potassium Level 3.7mmol/L (3.5-5.1) 3.6mmol/L (3.5-5.1) Chloride Level 95mmol/L (98-107) 98mmol/L (98-107) Carbon Dioxide Level 35mmol/L (21-32) 37mmol/L (21-32) Anion Gap 5 (6-14) 1 (6-14) Blood Urea Nitrogen 21mg/dL (7-20) 19mg/dL (7-20) Creatinine 1.0mg/dL (0.6-1.0) 1.1mg/dL (0.6-1.0) Estimated GFR (Cockcroft-Gault) 65.4 58.6 Glucose Level 141mg/dL (70-99) 102mg/dL (70-99) Calcium Level 9.3mg/dL (8.5-10.1) 9.5mg/dL (8.5-10.1) Laboratory Tests Test 11/18/16 14:00 11/19/16 06:15 White Blood Count 15.9x10^3/uL (4.0-11.0) 13.9x10^3/uL (4.0-11.0) Red Blood Count 4.15x10^6/uL (3.50-5.40) 4.01x10^6/uL (3.50-5.40) Hemoglobin 11.4g/dL (12.0-15.5) 10.9g/dL (12.0-15.5) Hematocrit 35.5% (36.0-47.0) 34.6% (36.0-47.0) Mean Corpuscular Volume 86fL (79-100) 86fL (79-100) Mean Corpuscular Hemoglobin 28pg (25-35) 27pg (25-35) Mean Corpuscular Hemoglobin Concent 32g/dL (31-37) 31g/dL (31-37) Red Cell Distribution Width 15.3% (11.5-14.5) 15.5% (11.5-14.5) Platelet Count 349x10^3/uL (140-400) 337x10^3/uL (140-400) Neutrophils (%) (Auto) 80% (31-73) 77% (31-73) Lymphocytes (%) (Auto) 13% (24-48) 17% (24-48) Monocytes (%) (Auto) 5% (0-9) 6% (0-9) Eosinophils (%) (Auto) 0% (0-3) 0% (0-3) Basophils (%) (Auto) 1% (0-3) 0% (0-3) Neutrophils # (Auto) 12.8x10^3uL (1.8-7.7) 10.6x10^3uL (1.8-7.7) Lymphocytes # (Auto) 2.1x10^3/uL (1.0-4.8) 2.4x10^3/uL (1.0-4.8) Monocytes # (Auto) 0.8x10^3/uL (0.0-1.1) 0.8x10^3/uL (0.0-1.1) Eosinophils # (Auto) 0.1x10^3/uL (0.0-0.7) 0.0x10^3/uL (0.0-0.7) Basophils # (Auto) 0.1x10^3/uL (0.0-0.2) 0.0x10^3/uL (0.0-0.2) Segmented Neutrophils % 82% (35-66) Band Neutrophils % 8% (0-9) Lymphocytes % 8% (24-48) Monocytes % 1% (0-10) Basophils % 1% (0-3) Toxic Granulation Slight Toxic Vacuolation Slight Platelet Estimate Adequate (ADEQUATE) Stomatocytes Many Sodium Level 135mmol/L (136-145) 136mmol/L (136-145) Potassium Level 3.7mmol/L (3.5-5.1) 3.6mmol/L (3.5-5.1) Chloride Level 95mmol/L (98-107) 98mmol/L (98-107) Carbon Dioxide Level 35mmol/L (21-32) 37mmol/L (21-32) Anion Gap 5 (6-14) 1 (6-14) Blood Urea Nitrogen 21mg/dL (7-20) 19mg/dL (7-20) Creatinine 1.0mg/dL (0.6-1.0) 1.1mg/dL (0.6-1.0) Estimated GFR (Cockcroft-Gault) 65.4 58.6 Glucose Level 141mg/dL (70-99) 102mg/dL (70-99) Calcium Level 9.3mg/dL (8.5-10.1) 9.5mg/dL (8.5-10.1) Medications Current Medications Levofloxacin/ Dextrose 1 each 1 each PRN DAILY PRN MC SEE COMMENTS; Start at 15:15 Levofloxacin/ Dextrose 150 ml @ 100 mls/hr 1X ONCE IV Last administered on 15:19; Start 11/18/16 at 15:45; Stop 11/18/16 at 17:14; Status DC Levofloxacin/ Dextrose (LEVAQUIN 750mg PREMIX) 150 ml @ 100 mls/hr Q48H IV ; Start 11/20/16 at 16:00 Ondansetron HCl (Zofran) 4 mg PRN Q6HRS PRN IV NAUSEA/VOMITING Last administered on 11/18/16 20:14; Start 11/18/16 at 15:45 Prochlorperazine Edisylate (Compazine) 10 mg PRN Q6HRS PRN IV NAUSEA/VOMITING Last administered on 11/18/16 22:29; Start 11/18/16 at 15:45 Prochlorperazine (Compazine) 25 mg PRN Q12HR PRN DC NAUSEA/VOMITING; Start 11/18 at 15:45 Al Hydroxide/Mg Hydroxide (Mylanta Plus Xs) 30 ml PRN Q3HRS PRN PO HEARTBURN / GAS; Start 11/18/16 at 15:45 Calcium Carbonate/ Glycine (Tums) 500 mg PRN Q3HRS PRN PO UPSET STOMACH; Start 11/18/16 at 15:45 Oxycodone HCl (Roxicodone) 5 mg PRN Q3HRS PRN PO BREAKTHROUGH PAIN Last administered on 11/19/16 09:58; Start 11/18/16 at 15:45 Morphine Sulfate 1 mg PRN Q2HR PRN IV PAIN; Start 11/18/16 at 15:45 Acetaminophen (Tylenol) 650 mg PRN Q6HRS PRN PO MILD PAIN / TEMP; Start at 15:45 Ibuprofen (Motrin) 400 mg PRN Q6HRS PRN PO MILD PAIN; Start 11/18/16 at 15:45 Docusate Sodium (Colace) 100 mg BID PO Last administered on 11/18/16 20:13; Start 11/18/16 at 21:00 Magnesium Hydroxide (Milk Of Magnesia) 2,400 mg PRN Q12HR PRN PO CONSTIPATION; Start 11/18/16 at 15:45 Lactulose 20 gm PRN Q12HR PRN PO CONSTIPATION; Start 11/18/16 at 15:45 Bisacodyl (Dulcolax Supp) 10 mg PRN DAILY PRN DC CONSTIPATION; Start 11/18/16 at 15:45 Enoxaparin Sodium (Lovenox 40mg Syringe) 40 mg Q24H SQ Last administered on 11/18 20:15; Start 11/18/16 at 21:00 Piperacillin Sod/ Tazobactam Sod (Zosyn Per Pharmacy) 1 each PRN DAILY PRN MC SEE COMMENTS; Start 11/18/16 at 15:45 Guaifenesin 10 ml 10 ml QID PO Last administered on 11/18/16 20:13; Start at 17:00 Piperacillin Sod/ Tazobactam Sod/ Sodium Chloride (Zosyn/Iv Sodium Chloride 0.9 % 50ml) 50 ml @ 100 mls/hr Q6HRS IV Last administered on 11/19/16 06:23; Start 11/18/16 at 17:00 Alprazolam (Xanax) 0.25 mg PRN DAILY PRN PEG ANXIETY / AGITATION Last administered on 11/18/16 20:15; Start 11/18/16 at 16:00 Amlodipine Besylate (Norvasc) 5 mg DAILY PEG Last administered on 11/19/16 09: 44; Start 11/18/16 at 16:30 Atenolol (Tenormin) 50 mg DAILY PEG Last administered on 11/19/16 09:45; Start 11/18/16 at 16:30 Citalopram Hydrobromide (Celexa) 10 mg DAILY PEG Last administered on 11/19/16 09:45; Start 11/18/16 at 16:30 Cyproheptadine HCl (Periactin) 2 mg TID PEG Last administered on 11/19/16 09:43 ; Start 11/18/16 at 21:00 Donepezil HCl (Aricept) 5 mg DAILY PEG Last administered on 11/19/16 09:45; Start 11/18/16 at 16:30 Fentanyl (Duragesic 50mcg/ Hr Patch) 1 patch Q3DAYS TD Last administered on 11/19 09:46; Start 11/19/16 at 09:00 Ondansetron HCl (Zofran Odt) 4 mg QIDPRN PRN PEG NAUSEA/VOMITING; Start at 16:00 Oxycodone HCl 5 mg PRN QID PRN PEG PAIN; Start 11/18/16 at 16:00 Saccharomyces Boulardii (Florastor) 250 mg DAILY PEG Last administered on 09:45; Start 11/19/16 at 09:00 Albuterol Sulfate (Ventolin Neb Soln) 2.5 mg PRN Q4HRS PRN NEB SHORTNESS OF BREATH; Start 11/18/16 at 16:15 Metoclopramide HCl (Reglan) 2 mg TIDAC PO Last administered on 11/19/16 09:42; Start 11/18/16 at 16:30 Metoprolol Tartrate (Lopressor) 25 mg BID PO Last administered on 11/19/16 09: 46; Start 11/18/16 at 21:00 Losartan Potassium (Cozaar) 100 mg DAILY PO Last administered on 11/19/16 09:44 ; Start 11/18/16 at 16:30 Albuterol/ Ipratropium (Duoneb) 3 ml RTQID NEB Last administered on 11/19/16 07 :24; Start 11/18/16 at 16:30 Active Scripts Active Atenolol 25 Mg Tablet 50 Mg PEG DAILY Amlodipine Besylate 5 Mg Tablet 5 Mg PEG DAILY Reported Bystolic (Nebivolol) 5 Mg Tablet 5 Mg PO DAILY Sulfamethoxazole-Tmp Ds Tablet (Sulfamethoxazole/Trimethoprim) 1 Each Tablet 1 Tab PO BID Oxycodone Hcl 5 Mg/5 Ml Solution 5 Mg PEG Q 4HRS PRN PAIN PRN Aricept (Donepezil Hcl) 5 Mg Tablet 5 Mg PEG DAILY Proair Hfa Inhaler (Albuterol Sulfate) 8.5 Gm Hfa.aer.ad 2 Puff IH PRN Q4-6HRS Albuterol Sulfate Neb Soln (Albuterol Sulfate) 0.63 Mg/3 Ml Vial.neb 1 Vial NEB PRN PRN Florastor (Saccharomyces Boulardii) 250 Mg Capsule 250 Mg PEG DAILY FENTANYL 50mcg/hr (Fentanyl) 1 Each Patch.td72 1 Patch TP Q3DAYS Xanax (Alprazolam) 0.25 Mg Tablet 0.25 Mg PEG DAILY PRN Citalopram Hbr (Citalopram Hydrobromide) 10 Mg Tablet 1 Tab PEG DAILY Ondansetron Odt (Ondansetron) 4 Mg Tab.rapdis 4 Mg PEG QIDPRN PRN Metoclopramide Hcl 5 Mg/5 Ml Solution 2 Mg PEG TID Cyproheptadine Hcl 4 Mg Tablet 2 Mg PEG TID Diovan (Valsartan) 160 Mg Tablet 160 Mg PEG DAILY Vitals/I & O Vital Sign - Last 24 Hours 11/18/16 11/18/16 11/18/16 11/18/16 13:27 13:58 14:28 14:58 Temp 97.8 97.8 Pulse 80 76 74 76 Resp 26 B/P 188/87 173/81 169/78 172/79 Pulse Ox 84 100 99 100 O2 Delivery Room Air Nasal Cannula Nasal Cannula Nasal Cannula O2 Flow Rate 3 3 3 11/18/16 11/18/16 11/18/16 11/18/16 15:28 16:24 17:37 18:39 Temp 97.7 97.7 Pulse 76 76 Resp 18 B/P 159/74 137/80 Pulse Ox 100 96 96 O2 Delivery Nasal Cannula Nasal Cannula Nasal Cannula Nasal Cannula O2 Flow Rate 3 2.0 2.0 2.0 11/18/16 11/18/16 11/18/16 11/18/16 18:58 19:00 20:00 20:13 Temp 97.7 97.4 97.7 97.4 Pulse 76 88 76 Resp 20 B/P 137/80 136/71 137/80 Pulse Ox 96 95 O2 Delivery Nasal Cannula O2 Flow Rate 2.0 2.0 11/18/16 11/18/16 11/19/16 11/19/16 21:00 23:00 03:00 07:00 Temp 97.8 98.5 98.7 97.8 98.5 98.7 Pulse 90 81 85 Resp 22 18 20 B/P 173/88 135/70 145/60 Pulse Ox 94 96 95 88 O2 Delivery Nasal Cannula Room Air O2 Flow Rate 2.0 11/19/16 11/19/16 11/19/16 11/19/16 07:29 08:00 09:44 09:44 Pulse 85 85 B/P 145/60 145/60 O2 Delivery Nasal Cannula Nasal Cannula O2 Flow Rate 2.0 2.0 11/19/16 11/19/16 11/19/16 11/19/16 09:45 09:46 09:46 09:58 Pulse 85 85 B/P 145/60 145/60 Pulse Ox 88 88 O2 Delivery Nasal Cannula Nasal Cannula O2 Flow Rate 2.0 2.0 Intake and Output 11/18/16 11/18/16 11/19/16 15:00 23:00 07:00 Intake Total 250 ml 500 ml Balance 250 ml 500 ml HEAVEN KRAUS MD Nov 19, 2016 10:37
[2016-11-19 11:00] VITALS: BP 138/68
--- NOTE | 2016-11-19 13:45 | CONS ---
DATE OF CONSULTATION: ATTENDING PHYSICIAN: Dr. Nina. REASON FOR CONSULTATION: Pneumonia, laryngeal cancer, lung cancer, tracheostomy. 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 She was treated with radiation and chemotherapy. She then had biopsy proven recurrence and she underwent tracheostomy at [facility]. 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 The patient has chronic tracheostomy in place. She was brought into the hospital with complaint of increasing purulent secretions through her trach. The color was thick yellow and it was noticeable on her chest as well draining from her trach. It was occasionally mixed with blood. There were no subjective fevers. She has a PEG tube in place for which she receives enteral nutrition. I have reviewed the patient's chest x-ray, which showed new right lower lobe infiltrate. There were some prominent interstitial markings as well. There were post-treatment changes in the left lower lobe. The patient was started on antibiotic Levaquin and Zosyn. I have been asked to see for further evaluation. She has a trach in place with a speaking valve. She is unable to answer any questions, but nods yes and no to questions. PAST MEDICAL HISTORY: History of hypertension, history of osteoarthritis, history of lung cancer stage, status post radiation and chemo, history of laryngeal cancer/radiation, status post tracheostomy. PAST SURGICAL HISTORY: Tracheostomy and PEG tube. ALLERGIES: None. CURRENT MEDICATIONS: Reviewed including broad-spectrum antibiotics. REVIEW OF SYSTEMS: Unable to obtain from the patient. PHYSICAL EXAMINATION: VITAL SIGNS: Blood pressure stable, afebrile, pulse ox 97% on 2 liters. ____. HEENT: Sclerae nonicteric. Trach in place with a speaking valve. LUNGS: Diminished breath sounds with few rhonchi. CARDIOVASCULAR: Regular rate. ABDOMEN: Soft. PEG in place. EXTREMITIES: With no pitting edema. LABORATORY DATA: Reviewed. White cell count was 15.9, hemoglobin 10.9, platelets are 337. Chemistry showed a BUN of 19, creatinine of 1.1. IMPRESSION: 1. Community-acquired right lower lobe pneumonia. 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 I suspect gram-negative pneumonia. We will obtain cultures. 2. 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 Subsequently, she underwent tracheostomy and receive more radiation treatment. 3. 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 RECOMMENDATIONS: 1. Continue with present broad-spectrum antibiotics. 2. Obtain trach secretions./ culture 3. Continue with bronchodilators. 4. DVT prophylaxis with Lovenox. 5. P.r.n. pain medication. 6. Trach suctioning p.r.n. 7. We will follow along with you. MARY LANIER MD DR: AINSLEY/sena JOB#: [id number] / [id number] CATA
[2016-11-19 15:00] VITALS: BP 104/51
[2016-11-19] MEDS: OXYCODONE 5 MG/5 ML ORAL SOLUTION. PEG PRN (18:32)
[2016-11-19 19:00] VITALS: BP 116/54
[2016-11-19] MEDS: ENOXAPARIN 40 MG/0.4 ML DISP.SYRIN. SQ SCH (22:07)
[2016-11-19 23:00] VITALS: BP 121/56
[2016-11-20 02:49] VITALS: BP 131/65
[2016-11-20] MEDS: PIPERACILLIN/TAZOBACTAM 3.375 GM in IV NORMAL SALINE 50ML 50 ML IV SCH ×3 (05:54→16:55)
[2016-11-20] MEDS: OXYCODONE 5 MG/5 ML ORAL SOLUTION. PEG PRN ×2 (06:07→17:48)
[2016-11-20 07:00] VITALS: BP 114/48
[2016-11-20] MEDS: IPRATRPIUM/ALBUTEROL 0.5/2.5MG 3 ML NEBU. NEB SCH ×4 (07:04→19:36)
[2016-11-20] MEDS: CITALOPRAM 10 MG TABLET. PEG SCH (09:10)
[2016-11-20] MEDS: GUAIFENESIN DM 200MG/20MG 10 ML SYRUP. PO SCH ×4 (09:10→22:07)
[2016-11-20] MEDS: DONEPEZIL HCL 5 MG TABLET. PEG SCH (09:10)
[2016-11-20] MEDS: METOPROLOL TART IMMED RELEASE 25 MG TABLET PO SCH ×2 (09:11→22:04)
[2016-11-20] MEDS: SACCHAROMYCES BOULARDII 250 MG CAPSULE. PEG SCH (09:11)
[2016-11-20] MEDS: CYPROHEPTADINE 4 MG TABLET. PEG SCH ×3 (09:11→22:04)
[2016-11-20] MEDS: DOCUSATE SODIUM 100 MG CAPSULE PO SCH ×2 (09:11→21:00)
[2016-11-20] MEDS: LOSARTAN POTASSIUM 50 MG TABLET. PO SCH (09:11)
[2016-11-20] MEDS: METOCLOPRAMIDE HCL 10 MG/10 ML SOLUTION. PO SCH ×3 (09:12→15:51)
[2016-11-20] MEDS: AMLODIPINE BESYLATE 5 MG TABLET PEG SCH (09:12)
[2016-11-20] MEDS: ATENOLOL 25 MG TABLET PEG SCH (09:12)
[2016-11-20] MEDS ORDERED: VANCOMYCIN 1 GM in IV NORMAL SALINE 250ML 250 ML IV SCH (09:15)
[2016-11-20] MEDS ORDERED: VANCOMYCIN 1.5 GM in IV NORMAL SALINE 500ML BAG 500 ML IV ONE (10:00)
[2016-11-20 10:50] VITALS: BP 109/56
--- NOTE | 2016-11-20 11:18 | PDOC ---
PULMONARY PROGRESS NOTES Subjective no soa Vitals Vital Signs Date Time Temp Pulse Resp B/P Pulse Ox O2 Delivery O2 Flow Rate FiO2 11/20/16 10:50 97.8 81 18 109/56 92 Nasal Cannula 2.0 97.8 General: Alert, No acute distress Lungs: Other (decrease bs) Cardiovascular: S1, S2 Abdomen: Soft, Non-tender, Other Neuro Exam: Alert Extremities: No Edema Skin: Warm Labs Laboratory Tests Test 11/18/16 14:00 11/18/16 20:40 11/19/16 06:15 White Blood Count 15.9x10^3/uL (4.0-11.0) 13.9x10^3/uL (4.0-11.0) Red Blood Count 4.15x10^6/uL (3.50-5.40) 4.01x10^6/uL (3.50-5.40) Hemoglobin 11.4g/dL (12.0-15.5) 10.9g/dL (12.0-15.5) Hematocrit 35.5% (36.0-47.0) 34.6% (36.0-47.0) Mean Corpuscular Volume 86fL (79-100) 86fL (79-100) Mean Corpuscular Hemoglobin 28pg (25-35) 27pg (25-35) Mean Corpuscular Hemoglobin Concent 32g/dL (31-37) 31g/dL (31-37) Red Cell Distribution Width 15.3% (11.5-14.5) 15.5% (11.5-14.5) Platelet Count 349x10^3/uL (140-400) 337x10^3/uL (140-400) Neutrophils (%) (Auto) 80% (31-73) 77% (31-73) Lymphocytes (%) (Auto) 13% (24-48) 17% (24-48) Monocytes (%) (Auto) 5% (0-9) 6% (0-9) Eosinophils (%) (Auto) 0% (0-3) 0% (0-3) Basophils (%) (Auto) 1% (0-3) 0% (0-3) Neutrophils # (Auto) 12.8x10^3uL (1.8-7.7) 10.6x10^3uL (1.8-7.7) Lymphocytes # (Auto) 2.1x10^3/uL (1.0-4.8) 2.4x10^3/uL (1.0-4.8) Monocytes # (Auto) 0.8x10^3/uL (0.0-1.1) 0.8x10^3/uL (0.0-1.1) Eosinophils # (Auto) 0.1x10^3/uL (0.0-0.7) 0.0x10^3/uL (0.0-0.7) Basophils # (Auto) 0.1x10^3/uL (0.0-0.2) 0.0x10^3/uL (0.0-0.2) Segmented Neutrophils % 82% (35-66) Band Neutrophils % 8% (0-9) Lymphocytes % 8% (24-48) Monocytes % 1% (0-10) Basophils % 1% (0-3) Toxic Granulation Slight Toxic Vacuolation Slight Platelet Estimate Adequate (ADEQUATE) Stomatocytes Many Sodium Level 135mmol/L (136-145) 136mmol/L (136-145) Potassium Level 3.7mmol/L (3.5-5.1) 3.6mmol/L (3.5-5.1) Chloride Level 95mmol/L (98-107) 98mmol/L (98-107) Carbon Dioxide Level 35mmol/L (21-32) 37mmol/L (21-32) Anion Gap 5 (6-14) 1 (6-14) Blood Urea Nitrogen 21mg/dL (7-20) 19mg/dL (7-20) Creatinine 1.0mg/dL (0.6-1.0) 1.1mg/dL (0.6-1.0) Estimated GFR (Cockcroft-Gault) 65.4 58.6 Glucose Level 141mg/dL (70-99) 102mg/dL (70-99) Calcium Level 9.3mg/dL (8.5-10.1) 9.5mg/dL (8.5-10.1) Nasal Screen MRSA (PCR) Positive (Negative) Medications Active Scripts Medications Dose Route/Sig Days Date Category Bystolic (Nebivolol) 5 Mg Tablet 5 Mg PO DAILY 09/17/16 Reported Atenolol 25 Mg Tablet 50 Mg PEG DAILY 06/05/16 Rx Amlodipine Besylate 5 Mg Tablet 5 Mg PEG DAILY 06/05/16 Rx Sulfamethoxazole-Tmp Ds Tablet (Sulfamethoxazole/Trimethoprim) 1 Each Tablet 1 Tab PO BID 06/02/16 Reported Oxycodone Hcl 5 Mg/5 Ml Solution 5 Mg PEG Q 4HRS PRN PAIN PRN 09/10/15 Reported Aricept (Donepezil Hcl) 5 Mg Tablet 5 Mg PEG DAILY 08/16/15 Reported Proair Hfa Inhaler (Albuterol Sulfate) 8.5 Gm Hfa.aer.ad 2 Puff IH PRN Q4-6HRS 08/16/15 Reported Albuterol Sulfate Neb Soln (Albuterol Sulfate) 0.63 Mg/3 Ml Vial.neb 1 Vial NEB PRN PRN 06/19/14 Reported Florastor (Saccharomyces Boulardii) 250 Mg Capsule 250 Mg PEG DAILY 06/19/14 Reported FENTANYL 50mcg/hr (Fentanyl) 1 Each Patch.td72 1 Patch TP Q3DAYS 06/19/14 Reported Xanax (Alprazolam) 0.25 Mg Tablet 0.25 Mg PEG DAILY PRN 06/19/14 Reported Citalopram Hbr (Citalopram Hydrobromide) 10 Mg Tablet 1 Tab PEG DAILY 06/19/14 Reported Ondansetron Odt (Ondansetron) 4 Mg Tab.rapdis 4 Mg PEG QIDPRN PRN 06/19/14 Reported Metoclopramide Hcl 5 Mg/5 Ml Solution 2 Mg PEG TID 12/02/13 Reported Cyproheptadine Hcl 4 Mg Tablet 2 Mg PEG TID 12/02/13 Reported Diovan (Valsartan) 160 Mg Tablet 160 Mg PEG DAILY 12/02/13 Reported Impression . 1. Community-acquired right lower lobe pneumonia. 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 I suspect gram-negative pneumonia. We will obtain cultures. 2. 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 Subsequently, she underwent tracheostomy and receive more radiation treatment. 3. 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 Plan . 1. Continue with present broad-spectrum antibiotics. 2. Obtain trach secretions./ culture 3. Continue with bronchodilators. 4. DVT prophylaxis with Lovenox. 5. P.r.n. pain medication. 6. Trach suctioning p.r.n. 7. We will follow along with you. MARY LANIER MD Nov 20, 2016 11:17
[2016-11-20 11:25] LABS: OBC FLU VALID
--- NOTE | 2016-11-20 12:30 | PDOC ---
PROGRESS NOTES Chief Complaint Chief Complaint 1. CAP 2. SIRS POA, no sepsis 3. LUng CA stage 3 N0M0, s/p radiation and chemo - claims to be cancer free 4. Laryngeal CA currently trached 5. Dysphagia with indwelling pEG on TF 6. 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 AOCD 8. HTN 9. Hx DVT 10. HX COPD< prev heavy smoker 11. HTN, dyslipdimeia - chronic stable 12. Positive MRSA History of Present Illness History of Present Illness Doing ok - nods No fevers BUt WBc remains 13 NAsal swab is positive for mRSA Tolerating tube feeds Tracheal secretions have just been sent - WAS SPIT not sputum PLAN: Add vanco 1 gm IV qD PT/OT Cont levaquin and zosyn Elytes since on vanc and antibiotics Cont TF COnsider interval CXR rakesh, CBC recheck rakesh MAy include lactate AM labs cont dvt prophy Re send SPUTUM PLS - (tracheal secretions) Vitals Vitals Vital Signs Date Time Temp Pulse Resp B/P Pulse Ox O2 Delivery O2 Flow Rate FiO2 11/20/16 11:37 94 Nasal Cannula 2.0 11/20/16 10:50 97.8 81 18 109/56 97.8 Physical Exam General: Oriented X3, Cooperative, Other (weak) Lungs: Other (decrease bs) Abdomen: Normal bowel sounds, Soft, No tenderness, No hepatosplenomegaly, No masses, Other (indwelling PEG) Extremities: No clubbing, No cyanosis, No edema, Normal pulses, No tenderness/ swelling Skin: No rashes, No breakdown, No significant lesion Labs LABS Laboratory Tests Test 11/20/16 10:45 Influenza Type A Antigen Negative (NEGATIVE) Influenza Type B Antigen Negative (NEGATIVE) Review of Systems Review of Systems non verbal/trached Assessment and Plan Assessmemt and Plan Problems Medical Problems: (1) CAP (community acquired pneumonia) Status: Acute (2) CAP (community acquired pneumonia) Status: Acute Problems: Comment Review of Relevant I have reviewed the following items miko (where applicable) has been applied. Labs Laboratory Tests Test 11/18/16 14:00 11/18/16 20:40 11/19/16 06:15 11/20/16 10:45 White Blood Count 15.9x10^3/uL (4.0-11.0) 13.9x10^3/uL (4.0-11.0) Red Blood Count 4.15x10^6/uL (3.50-5.40) 4.01x10^6/uL (3.50-5.40) Hemoglobin 11.4g/dL (12.0-15.5) 10.9g/dL (12.0-15.5) Hematocrit 35.5% (36.0-47.0) 34.6% (36.0-47.0) Mean Corpuscular Volume 86fL (79-100) 86fL (79-100) Mean Corpuscular Hemoglobin 28pg (25-35) 27pg (25-35) Mean Corpuscular Hemoglobin Concent 32g/dL (31-37) 31g/dL (31-37) Red Cell Distribution Width 15.3% (11.5-14.5) 15.5% (11.5-14.5) Platelet Count 349x10^3/uL (140-400) 337x10^3/uL (140-400) Neutrophils (%) (Auto) 80% (31-73) 77% (31-73) Lymphocytes (%) (Auto) 13% (24-48) 17% (24-48) Monocytes (%) (Auto) 5% (0-9) 6% (0-9) Eosinophils (%) (Auto) 0% (0-3) 0% (0-3) Basophils (%) (Auto) 1% (0-3) 0% (0-3) Neutrophils # (Auto) 12.8x10^3uL (1.8-7.7) 10.6x10^3uL (1.8-7.7) Lymphocytes # (Auto) 2.1x10^3/uL (1.0-4.8) 2.4x10^3/uL (1.0-4.8) Monocytes # (Auto) 0.8x10^3/uL (0.0-1.1) 0.8x10^3/uL (0.0-1.1) Eosinophils # (Auto) 0.1x10^3/uL (0.0-0.7) 0.0x10^3/uL (0.0-0.7) Basophils # (Auto) 0.1x10^3/uL (0.0-0.2) 0.0x10^3/uL (0.0-0.2) Segmented Neutrophils % 82% (35-66) Band Neutrophils % 8% (0-9) Lymphocytes % 8% (24-48) Monocytes % 1% (0-10) Basophils % 1% (0-3) Toxic Granulation Slight Toxic Vacuolation Slight Platelet Estimate Adequate (ADEQUATE) Stomatocytes Many Sodium Level 135mmol/L (136-145) 136mmol/L (136-145) Potassium Level 3.7mmol/L (3.5-5.1) 3.6mmol/L (3.5-5.1) Chloride Level 95mmol/L (98-107) 98mmol/L (98-107) Carbon Dioxide Level 35mmol/L (21-32) 37mmol/L (21-32) Anion Gap 5 (6-14) 1 (6-14) Blood Urea Nitrogen 21mg/dL (7-20) 19mg/dL (7-20) Creatinine 1.0mg/dL (0.6-1.0) 1.1mg/dL (0.6-1.0) Estimated GFR (Cockcroft-Gault) 65.4 58.6 Glucose Level 141mg/dL (70-99) 102mg/dL (70-99) Calcium Level 9.3mg/dL (8.5-10.1) 9.5mg/dL (8.5-10.1) Nasal Screen MRSA (PCR) Positive (Negative) Influenza Type A Antigen Negative (NEGATIVE) Influenza Type B Antigen Negative (NEGATIVE) Laboratory Tests Test 11/20/16 10:45 Influenza Type A Antigen Negative (NEGATIVE) Influenza Type B Antigen Negative (NEGATIVE) Microbiology 11/18/16 Blood Culture - Preliminary, Resulted NO GROWTH AFTER 1 DAY 11/19/16 Gram Stain - Final, Complete Medications Current Medications Levofloxacin/ Dextrose 1 each 1 each PRN DAILY PRN MC SEE COMMENTS; Start at 15:15 Levofloxacin/ Dextrose 150 ml @ 100 mls/hr 1X ONCE IV Last administered on t 15:19; Start 11/18/16 at 15:45; Stop 11/18/16 at 17:14; Status DC Levofloxacin/ Dextrose (LEVAQUIN 750mg PREMIX) 150 ml @ 100 mls/hr Q48H IV ; Start 11/20/16 at 16:00 Ondansetron HCl (Zofran) 4 mg PRN Q6HRS PRN IV NAUSEA/VOMITING Last administered on 11/18/16 20:14; Start 11/18/16 at 15:45 Prochlorperazine Edisylate (Compazine) 10 mg PRN Q6HRS PRN IV NAUSEA/VOMITING Last administered on 11/18/16 22:29; Start 11/18/16 at 15:45 Prochlorperazine (Compazine) 25 mg PRN Q12HR PRN [place] NAUSEA/VOMITING; Start 11/18 at 15:45 Al Hydroxide/Mg Hydroxide (Mylanta Plus Xs) 30 ml PRN Q3HRS PRN PO HEARTBURN / GAS; Start 11/18/16 at 15:45 Calcium Carbonate/ Glycine (Tums) 500 mg PRN Q3HRS PRN PO UPSET STOMACH; Start 11/18/16 at 15:45 Oxycodone HCl (Roxicodone) 5 mg PRN Q3HRS PRN PO BREAKTHROUGH PAIN Last administered on 11/19/16 13:55; Start 11/18/16 at 15:45 Morphine Sulfate 1 mg PRN Q2HR PRN IV SEVERE PAIN; Start 11/18/16 at 15:45 Acetaminophen (Tylenol) 650 mg PRN Q6HRS PRN PO MILD PAIN / TEMP; Start at 15:45 Ibuprofen (Motrin) 400 mg PRN Q6HRS PRN PO MILD PAIN; Start 11/18/16 at 15:45 Docusate Sodium (Colace) 100 mg BID PO Last administered on 11/20/16 09:11; Start 11/18/16 at 21:00 Magnesium Hydroxide (Milk Of Magnesia) 2,400 mg PRN Q12HR PRN PO CONSTIPATION; Start 11/18/16 at 15:45 Lactulose 20 gm PRN Q12HR PRN PO CONSTIPATION; Start 11/18/16 at 15:45 Bisacodyl (Dulcolax Supp) 10 mg PRN DAILY PRN [place] CONSTIPATION; Start 11/18/16 at 15:45 Enoxaparin Sodium (Lovenox 40mg Syringe) 40 mg Q24H SQ Last administered on 11/19 22:07; Start 11/18/16 at 21:00 Piperacillin Sod/ Tazobactam Sod (Zosyn Per Pharmacy) 1 each PRN DAILY PRN MC SEE COMMENTS; Start 11/18/16 at 15:45 Guaifenesin 10 ml 10 ml QID PO Last administered on 11/20/16 09:10; Start at 17:00 Piperacillin Sod/ Tazobactam Sod/ Sodium Chloride (Zosyn/Iv Sodium Chloride 0.9 % 50ml) 50 ml @ 100 mls/hr Q6HRS IV Last administered on 11/20/16 05:54; Start 11/18/16 at 17:00 Alprazolam (Xanax) 0.25 mg PRN DAILY PRN PEG ANXIETY / AGITATION Last administered on 11/18/16 20:15; Start 11/18/16 at 16:00 Amlodipine Besylate (Norvasc) 5 mg DAILY PEG Last administered on 11/20/16 09: 12; Start 11/18/16 at 16:30 Atenolol (Tenormin) 50 mg DAILY PEG Last administered on 11/20/16 09:12; Start 11/18/16 at 16:30 Citalopram Hydrobromide (Celexa) 10 mg DAILY PEG Last administered on 11/20/16 09:10; Start 11/18/16 at 16:30 Cyproheptadine HCl (Periactin) 2 mg TID PEG Last administered on 11/20/16 09:11 ; Start 11/18/16 at 21:00 Donepezil HCl (Aricept) 5 mg DAILY PEG Last administered on 11/20/16 09:10; Start 11/18/16 at 16:30 Fentanyl (Duragesic 50mcg/ Hr Patch) 1 patch Q3DAYS TD Last administered on 11/19 09:46; Start 11/19/16 at 09:00 Ondansetron HCl (Zofran Odt) 4 mg QIDPRN PRN PEG NAUSEA/VOMITING; Start at 16:00 Oxycodone HCl 5 mg PRN QID PRN PEG PAIN Last administered on 11/20/16 06:07; Start 11/18/16 at 16:00 Saccharomyces Boulardii (Florastor) 250 mg DAILY PEG Last administered on 09:11; Start 11/19/16 at 09:00 Albuterol Sulfate (Ventolin Neb Soln) 2.5 mg PRN Q4HRS PRN NEB SHORTNESS OF BREATH; Start 11/18/16 at 16:15 Metoclopramide HCl (Reglan) 2 mg TIDAC PO Last administered on 11/20/16 09:12; Start 11/18/16 at 16:30 Metoprolol Tartrate (Lopressor) 25 mg BID PO Last administered on 11/20/16 09: 11; Start 11/18/16 at 21:00 Losartan Potassium (Cozaar) 100 mg DAILY PO Last administered on 11/20/16 09:11 ; Start 11/18/16 at 16:30 Albuterol/ Ipratropium 3 ml 3 ml RTQID NEB Last administered on 11/20/16 11:36 ; Start 11/18/16 at 16:30 Vancomycin HCl/ Sodium Chloride (Iv Sodium Chloride 0.9% 250ml) 250 ml @ 250 mls/hr Q24H IV ; Start 11/20/16 at 09:15; Stop 11/20/16 at 09:15; Status DC Vancomycin HCl 1 each 1 each PRN DAILY PRN MC SEE COMMENTS; Start 11/20/16 at 09 :15 Vancomycin HCl/ Sodium Chloride (Iv Sodium Chloride 0.9% 500ml Bag) 500 ml @ 250 mls/hr 1X ONCE IV Last administered on 11/20/16 09:51; Start 11/20/16 at 10 :00; Stop 11/20/16 at 11:59; Status DC Active Scripts Active Atenolol 25 Mg Tablet 50 Mg PEG DAILY Amlodipine Besylate 5 Mg Tablet 5 Mg PEG DAILY Reported Bystolic (Nebivolol) 5 Mg Tablet 5 Mg PO DAILY Sulfamethoxazole-Tmp Ds Tablet (Sulfamethoxazole/Trimethoprim) 1 Each Tablet 1 Tab PO BID Oxycodone Hcl 5 Mg/5 Ml Solution 5 Mg PEG Q 4HRS PRN PAIN PRN Aricept (Donepezil Hcl) 5 Mg Tablet 5 Mg PEG DAILY Proair Hfa Inhaler (Albuterol Sulfate) 8.5 Gm Hfa.aer.ad 2 Puff IH PRN Q4-6HRS Albuterol Sulfate Neb Soln (Albuterol Sulfate) 0.63 Mg/3 Ml Vial.neb 1 Vial NEB PRN PRN Florastor (Saccharomyces Boulardii) 250 Mg Capsule 250 Mg PEG DAILY FENTANYL 50mcg/hr (Fentanyl) 1 Each Patch.td72 1 Patch TP Q3DAYS Xanax (Alprazolam) 0.25 Mg Tablet 0.25 Mg PEG DAILY PRN Citalopram Hbr (Citalopram Hydrobromide) 10 Mg Tablet 1 Tab PEG DAILY Ondansetron Odt (Ondansetron) 4 Mg Tab.rapdis 4 Mg PEG QIDPRN PRN Metoclopramide Hcl 5 Mg/5 Ml Solution 2 Mg PEG TID Cyproheptadine Hcl 4 Mg Tablet 2 Mg PEG TID Diovan (Valsartan) 160 Mg Tablet 160 Mg PEG DAILY Vitals/I & O Vital Sign - Last 24 Hours 11/19/16 11/19/16 11/19/16 11/19/16 13:49 13:55 15:00 15:01 Temp 99.0 99.0 Pulse 88 Resp 22 B/P 104/51 Pulse Ox 88 88 92 88 O2 Delivery Nasal Cannula Nasal Cannula Nasal Cannula Nasal Cannula O2 Flow Rate 2.0 2.0 2.0 2.0 11/19/16 11/19/16 11/19/16 11/19/16 15:42 18:32 19:00 19:51 Temp 98.7 98.7 Pulse 91 Resp 18 B/P 116/54 Pulse Ox 94 94 92 O2 Delivery Nasal Cannula Nasal Cannula Nasal Cannula Nasal Cannula O2 Flow Rate 2.0 2.0 2.0 2.0 11/19/16 11/19/16 11/19/16 11/20/16 20:00 22:02 23:00 02:49 Temp 98.7 98.5 98.7 98.5 Pulse 91 79 77 Resp 18 16 B/P 116/54 121/56 131/65 Pulse Ox 91 95 O2 Delivery Nasal Cannula Nasal Cannula Nasal Cannula O2 Flow Rate 2.0 2.0 2.0 11/20/16 11/20/16 11/20/16 11/20/16 06:07 07:00 07:09 07:14 Temp 97.8 97.8 Pulse 78 Resp 19 18 16 B/P 114/48 Pulse Ox 95 93 95 O2 Delivery Nasal Cannula Nasal Cannula Nasal Cannula Nasal Cannula O2 Flow Rate 2.0 2.0 2.0 2.0 11/20/16 11/20/16 11/20/16 11/20/16 08:00 09:11 09:11 09:12 Pulse 78 78 78 B/P 114/48 114/48 114/48 O2 Delivery Nasal Cannula O2 Flow Rate 2.0 11/20/16 11/20/16 11/20/16 09:12 10:50 11:37 Temp 97.8 97.8 Pulse 78 81 Resp 18 B/P 114/48 109/56 Pulse Ox 92 94 O2 Delivery Nasal Cannula Nasal Cannula O2 Flow Rate 2.0 2.0 Intake and Output 11/19/16 11/19/16 11/20/16 15:00 23:00 07:00 Intake Total 350 ml 0 ml Balance 350 ml 0 ml Nutrition Consultation Dietary Evaluation: Recommendations by RD: PPN/TPN Expected Outcomes/Goals: to meet > 75% est nutr needs via PEG TF Malnutrition Findings: Body Fat Depletion (Non Severe: Mild Depletion Reduced Senior [employer] Strength: N/A Weight Status: Appropriate Fluid Accumulation (N/A): N/A HEAVEN KRAUS MD Nov 20, 2016 12:30
[2016-11-20 15:03] VITALS: BP 110/59
[2016-11-20] MEDS: VANCOMYCIN PER PHARMACY MC PRN (16:44)
[2016-11-20 19:00] VITALS: BP 126/66
[2016-11-20] MEDS: OXYCODONE IR 5 MG TABLET. PO PRN (22:04)
[2016-11-20] MEDS: ENOXAPARIN 40 MG/0.4 ML DISP.SYRIN. SQ SCH (22:08)
[2016-11-20] MEDS: ONDANSETRON PF 4 MG/2 ML VIAL. IV PRN (22:38)
[2016-11-20 23:00] VITALS: BP 107/54
[2016-11-21] MEDS: PIPERACILLIN/TAZOBACTAM 3.375 GM in IV NORMAL SALINE 50ML 50 ML IV SCH ×4 (00:10→17:58)
[2016-11-21] MEDS: ALPRAZOLAM 0.25 MG TABLET PEG PRN (02:07)
[2016-11-21 03:00] VITALS: BP 135/68
[2016-11-21 07:00] VITALS: BP 150/72
[2016-11-21] MEDS: IPRATRPIUM/ALBUTEROL 0.5/2.5MG 3 ML NEBU. NEB SCH ×4 (07:56→19:55)
[2016-11-21] MEDS: ONDANSETRON PF 4 MG/2 ML VIAL. IV PRN (08:36)
[2016-11-21] MEDS: METOCLOPRAMIDE HCL 10 MG/10 ML SOLUTION. PO SCH ×3 (08:37→17:58)
[2016-11-21] MEDS: LOSARTAN POTASSIUM 50 MG TABLET. PO SCH (08:38)
[2016-11-21] MEDS: ATENOLOL 25 MG TABLET PEG SCH (08:42)
[2016-11-21] MEDS: METOPROLOL TART IMMED RELEASE 25 MG TABLET PO SCH ×2 (08:44→22:29)
[2016-11-21] MEDS: DONEPEZIL HCL 5 MG TABLET. PEG SCH (08:45)
[2016-11-21] MEDS: DOCUSATE SODIUM 100 MG CAPSULE PO SCH ×2 (08:45→22:28)
[2016-11-21] MEDS: CYPROHEPTADINE 4 MG TABLET. PEG SCH ×3 (08:45→22:27)
[2016-11-21] MEDS: CITALOPRAM 10 MG TABLET. PEG SCH (08:45)
[2016-11-21] MEDS: SACCHAROMYCES BOULARDII 250 MG CAPSULE. PEG SCH (08:46)
[2016-11-21] MEDS: AMLODIPINE BESYLATE 5 MG TABLET PEG SCH (08:46)
[2016-11-21] MEDS: GUAIFENESIN DM 200MG/20MG 10 ML SYRUP. PO SCH ×4 (08:46→22:27)
[2016-11-21] MEDS: OXYCODONE 5 MG/5 ML ORAL SOLUTION. PEG PRN ×2 (08:47→17:58)
[2016-11-21 09:34] LABS: BASO # 0.1 x10^3/uL (0.0-0.2); BASO % 1 % (0-3); EOS % 1 % (0-3); HEMATOCRIT 36.1 % (36.0-47.0); HEMOGLOBIN 11.5 g/dL (12.0-15.5); LYMPH # 3.8 x10^3/uL (1.0-4.8); LYMPH % 22 % (24-48); MEAN CORPUSCULAR HEMOGLOBIN 27 pg (25-35); MEAN CORPUSCULAR HGB CONC 32 g/dL (31-37); MEAN CORPUSCULAR VOLUME 86 fL (79-100); MONO % 6 % (0-9); NEUT % 71 % (31-73); PLATELET COUNT 319 x10^3/uL (140-400); RED BLOOD COUNT 4.21 x10^6/uL (3.50-5.40); RED CELL DISTRIBUTION WIDTH 15.5 % (11.5-14.5); WHITE BLOOD COUNT 17.6 x10^3/uL (4.0-11.0)
--- NOTE | 2016-11-21 09:35 | RAD ---
EXAM: Chest one view. HISTORY: Lung cancer, shortness of breath, follow-up. COMPARISON: 11/18/2016. FINDINGS: A frontal view of the chest is obtained. A right-sided port catheter has its tip in the superior cavoatrial junction. A tracheostomy appliance is in expected position. There are surgical clips at the hiatus. Retrocardiac opacity and volume loss is stable. There is a new small infiltrate lateral to the left hilum. Right basilar infiltrates have improved but not completely resolved. Small pleural effusions cannot be excluded. There is no pneumothorax. The heart is not enlarged. IMPRESSION: 1. New small left perihilar infiltrate. 2. Right basilar infiltrates have improved but not completely resolved. 3. Stable posttreatment retrocardiac opacity and volume loss.
[2016-11-21 09:40] LABS: CALCIUM 9.7 mg/dL (8.5-10.1); GFR 65.4; POTASSIUM 3.7 mmol/L (3.5-5.1)
--- NOTE | 2016-11-21 10:16 | PDOC ---
PROGRESS NOTES Chief Complaint Chief Complaint 1. CAP 2. SIRS POA, no sepsis 3. LUng CA stage 3 N0M0, s/p radiation and chemo - claims to be cancer free 4. Laryngeal CA currently trached 5. Dysphagia with indwelling pEG on TF 6. 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 AOCD 8. HTN 9. Hx DVT 10. HX COPD< prev heavy smoker 11. HTN, dyslipdimeia - chronic stable 12. Positive MRSA nares History of Present Illness History of Present Illness WBC peaks at 17 today lactate normal 1.3 - (did order these labs earlier)_ Low grade temp last night 7 pm 99.3 Still secretions from trach First specimen is spit Second specimen sent now (did order earlier today) TF running via PEG no issues MRSa positive in nares Plan: Involve ID PT/OT TF Supprotve meds Dw RN Vitals Vitals Vital Signs Date Time Temp Pulse Resp B/P Pulse Ox O2 Delivery O2 Flow Rate FiO2 11/21/16 09:10 Nasal Cannula 2.0 11/21/16 08:46 86 150/72 11/21/16 07:59 97 11/21/16 07:00 97.8 18 97.8 Physical Exam General: Oriented X3, Cooperative, Other (weak) Lungs: Other (decrease bs) Abdomen: Normal bowel sounds, Soft, No tenderness, No hepatosplenomegaly, No masses, Other (indwelling PEG) Extremities: No clubbing, No cyanosis, No edema, Normal pulses, No tenderness/ swelling Skin: No rashes, No breakdown, No significant lesion Labs LABS Laboratory Tests Test 11/20/16 10:45 11/21/16 09:25 Influenza Type A Antigen Negative (NEGATIVE) Influenza Type B Antigen Negative (NEGATIVE) White Blood Count 17.6x10^3/uL (4.0-11.0) Red Blood Count 4.21x10^6/uL (3.50-5.40) Hemoglobin 11.5g/dL (12.0-15.5) Hematocrit 36.1% (36.0-47.0) Mean Corpuscular Volume 86fL (79-100) Mean Corpuscular Hemoglobin 27pg (25-35) Mean Corpuscular Hemoglobin Concent 32g/dL (31-37) Red Cell Distribution Width 15.5% (11.5-14.5) Platelet Count 319x10^3/uL (140-400) Neutrophils (%) (Auto) 71% (31-73) Lymphocytes (%) (Auto) 22% (24-48) Monocytes (%) (Auto) 6% (0-9) Eosinophils (%) (Auto) 1% (0-3) Basophils (%) (Auto) 1% (0-3) Neutrophils # (Auto) 12.6x10^3uL (1.8-7.7) Lymphocytes # (Auto) 3.8x10^3/uL (1.0-4.8) Monocytes # (Auto) 1.0x10^3/uL (0.0-1.1) Eosinophils # (Auto) 0.1x10^3/uL (0.0-0.7) Basophils # (Auto) 0.1x10^3/uL (0.0-0.2) Sodium Level 140mmol/L (136-145) Potassium Level 3.7mmol/L (3.5-5.1) Chloride Level 99mmol/L (98-107) Carbon Dioxide Level 33mmol/L (21-32) Anion Gap 8 (6-14) Blood Urea Nitrogen 14mg/dL (7-20) Creatinine 1.0mg/dL (0.6-1.0) Estimated GFR (Cockcroft-Gault) 65.4 Glucose Level 158mg/dL (70-99) Lactic Acid Level 1.3mmol/L (0.4-2.0) Calcium Level 9.7mg/dL (8.5-10.1) Review of Systems Review of Systems non verbal Assessment and Plan Assessmemt and Plan Problems Medical Problems: (1) CAP (community acquired pneumonia) Status: Acute (2) CAP (community acquired pneumonia) Status: Acute Problems: Comment Review of Relevant I have reviewed the following items miko (where applicable) has been applied. Labs Laboratory Tests Test 11/20/16 10:45 11/21/16 09:25 Influenza Type A Antigen Negative (NEGATIVE) Influenza Type B Antigen Negative (NEGATIVE) White Blood Count 17.6x10^3/uL (4.0-11.0) Red Blood Count 4.21x10^6/uL (3.50-5.40) Hemoglobin 11.5g/dL (12.0-15.5) Hematocrit 36.1% (36.0-47.0) Mean Corpuscular Volume 86fL (79-100) Mean Corpuscular Hemoglobin 27pg (25-35) Mean Corpuscular Hemoglobin Concent 32g/dL (31-37) Red Cell Distribution Width 15.5% (11.5-14.5) Platelet Count 319x10^3/uL (140-400) Neutrophils (%) (Auto) 71% (31-73) Lymphocytes (%) (Auto) 22% (24-48) Monocytes (%) (Auto) 6% (0-9) Eosinophils (%) (Auto) 1% (0-3) Basophils (%) (Auto) 1% (0-3) Neutrophils # (Auto) 12.6x10^3uL (1.8-7.7) Lymphocytes # (Auto) 3.8x10^3/uL (1.0-4.8) Monocytes # (Auto) 1.0x10^3/uL (0.0-1.1) Eosinophils # (Auto) 0.1x10^3/uL (0.0-0.7) Basophils # (Auto) 0.1x10^3/uL (0.0-0.2) Sodium Level 140mmol/L (136-145) Potassium Level 3.7mmol/L (3.5-5.1) Chloride Level 99mmol/L (98-107) Carbon Dioxide Level 33mmol/L (21-32) Anion Gap 8 (6-14) Blood Urea Nitrogen 14mg/dL (7-20) Creatinine 1.0mg/dL (0.6-1.0) Estimated GFR (Cockcroft-Gault) 65.4 Glucose Level 158mg/dL (70-99) Lactic Acid Level 1.3mmol/L (0.4-2.0) Calcium Level 9.7mg/dL (8.5-10.1) Laboratory Tests Test 11/20/16 10:45 11/21/16 09:25 Influenza Type A Antigen Negative (NEGATIVE) Influenza Type B Antigen Negative (NEGATIVE) White Blood Count 17.6x10^3/uL (4.0-11.0) Red Blood Count 4.21x10^6/uL (3.50-5.40) Hemoglobin 11.5g/dL (12.0-15.5) Hematocrit 36.1% (36.0-47.0) Mean Corpuscular Volume 86fL (79-100) Mean Corpuscular Hemoglobin 27pg (25-35) Mean Corpuscular Hemoglobin Concent 32g/dL (31-37) Red Cell Distribution Width 15.5% (11.5-14.5) Platelet Count 319x10^3/uL (140-400) Neutrophils (%) (Auto) 71% (31-73) Lymphocytes (%) (Auto) 22% (24-48) Monocytes (%) (Auto) 6% (0-9) Eosinophils (%) (Auto) 1% (0-3) Basophils (%) (Auto) 1% (0-3) Neutrophils # (Auto) 12.6x10^3uL (1.8-7.7) Lymphocytes # (Auto) 3.8x10^3/uL (1.0-4.8) Monocytes # (Auto) 1.0x10^3/uL (0.0-1.1) Eosinophils # (Auto) 0.1x10^3/uL (0.0-0.7) Basophils # (Auto) 0.1x10^3/uL (0.0-0.2) Sodium Level 140mmol/L (136-145) Potassium Level 3.7mmol/L (3.5-5.1) Chloride Level 99mmol/L (98-107) Carbon Dioxide Level 33mmol/L (21-32) Anion Gap 8 (6-14) Blood Urea Nitrogen 14mg/dL (7-20) Creatinine 1.0mg/dL (0.6-1.0) Estimated GFR (Cockcroft-Gault) 65.4 Glucose Level 158mg/dL (70-99) Lactic Acid Level 1.3mmol/L (0.4-2.0) Calcium Level 9.7mg/dL (8.5-10.1) Microbiology 11/18/16 Blood Culture - Preliminary, Resulted NO GROWTH AFTER 2 DAYS 11/19/16 Gram Stain - Final, Complete Medications Current Medications Levofloxacin/ Dextrose 1 each 1 each PRN DAILY PRN MC SEE COMMENTS; Start at 15:15 Levofloxacin/ Dextrose 150 ml @ 100 mls/hr 1X ONCE IV Last administered on 15:19; Start 11/18/16 at 15:45; Stop 11/18/16 at 17:14; Status DC Levofloxacin/ Dextrose (LEVAQUIN 750mg PREMIX) 150 ml @ 100 mls/hr Q48H IV Last administered on 11/20/16 15:50; Start 11/20/16 at 16:00 Ondansetron HCl (Zofran) 4 mg PRN Q6HRS PRN IV NAUSEA/VOMITING Last administered on 11/21/16 08:36; Start 11/18/16 at 15:45 Prochlorperazine Edisylate (Compazine) 10 mg PRN Q6HRS PRN IV NAUSEA/VOMITING Last administered on 11/18/16 22:29; Start 11/18/16 at 15:45 Prochlorperazine (Compazine) 25 mg PRN Q12HR PRN AK NAUSEA/VOMITING; Start 11/18 at 15:45 Al Hydroxide/Mg Hydroxide (Mylanta Plus Xs) 30 ml PRN Q3HRS PRN PO HEARTBURN / GAS; Start 11/18/16 at 15:45 Calcium Carbonate/ Glycine (Tums) 500 mg PRN Q3HRS PRN PO UPSET STOMACH; Start 11/18/16 at 15:45 Oxycodone HCl (Roxicodone) 5 mg PRN Q3HRS PRN PO BREAKTHROUGH PAIN Last administered on 11/20/16 22:04; Start 11/18/16 at 15:45 Morphine Sulfate 1 mg PRN Q2HR PRN IV SEVERE PAIN Last administered on 08:36; Start 11/18/16 at 15:45 Acetaminophen (Tylenol) 650 mg PRN Q6HRS PRN PO MILD PAIN / TEMP; Start at 15:45 Ibuprofen (Motrin) 400 mg PRN Q6HRS PRN PO MILD PAIN; Start 11/18/16 at 15:45 Docusate Sodium (Colace) 100 mg BID PO Last administered on 11/21/16 08:45; Start 11/18/16 at 21:00 Magnesium Hydroxide (Milk Of Magnesia) 2,400 mg PRN Q12HR PRN PO CONSTIPATION; Start 11/18/16 at 15:45 Lactulose 20 gm PRN Q12HR PRN PO CONSTIPATION; Start 11/18/16 at 15:45 Bisacodyl (Dulcolax Supp) 10 mg PRN DAILY PRN [place] CONSTIPATION; Start 11/18/16 at 15:45 Enoxaparin Sodium (Lovenox 40mg Syringe) 40 mg Q24H SQ Last administered on 11/20 22:08; Start 11/18/16 at 21:00 Piperacillin Sod/ Tazobactam Sod (Zosyn Per Pharmacy) 1 each PRN DAILY PRN MC SEE COMMENTS; Start 11/18/16 at 15:45 Guaifenesin 10 ml 10 ml QID PO Last administered on 11/21/16 08:46; Start 11/18 at 17:00 Piperacillin Sod/ Tazobactam Sod/ Sodium Chloride (Zosyn/Iv Sodium Chloride 0.9 % 50ml) 50 ml @ 100 mls/hr Q6HRS IV Last administered on 11/21/16 06:21; Start 11/18/16 at 17:00 Alprazolam (Xanax) 0.25 mg PRN DAILY PRN PEG ANXIETY / AGITATION Last administered on 11/21/16 02:07; Start 11/18/16 at 16:00 Amlodipine Besylate (Norvasc) 5 mg DAILY PEG Last administered on 11/21/16 08: 46; Start 11/18/16 at 16:30 Atenolol (Tenormin) 50 mg DAILY PEG Last administered on 11/21/16 08:42; Start 11/18/16 at 16:30 Citalopram Hydrobromide (Celexa) 10 mg DAILY PEG Last administered on 08:45; Start 11/18/16 at 16:30 Cyproheptadine HCl (Periactin) 2 mg TID PEG Last administered on 11/21/16 08: 45; Start 11/18/16 at 21:00 Donepezil HCl (Aricept) 5 mg DAILY PEG Last administered on 11/21/16 08:45; Start 11/18/16 at 16:30 Fentanyl (Duragesic 50mcg/ Hr Patch) 1 patch Q3DAYS TD Last administered on 11/19 09:46; Start 11/19/16 at 09:00 Ondansetron HCl (Zofran Odt) 4 mg QIDPRN PRN PEG NAUSEA/VOMITING; Start at 16:00 Oxycodone HCl 5 mg PRN QID PRN PEG PAIN Last administered on 11/21/16 08:47; Start 11/18/16 at 16:00 Saccharomyces Boulardii (Florastor) 250 mg DAILY PEG Last administered on 08:46; Start 11/19/16 at 09:00 Albuterol Sulfate (Ventolin Neb Soln) 2.5 mg PRN Q4HRS PRN NEB SHORTNESS OF BREATH; Start 11/18/16 at 16:15 Metoclopramide HCl (Reglan) 2 mg TIDAC PO Last administered on 11/21/16 08:37 ; Start 11/18/16 at 16:30 Metoprolol Tartrate (Lopressor) 25 mg BID PO Last administered on 11/21/16 08: 44; Start 11/18/16 at 21:00 Losartan Potassium (Cozaar) 100 mg DAILY PO Last administered on 11/21/16 08: 38; Start 11/18/16 at 16:30 Albuterol/ Ipratropium 3 ml 3 ml RTQID NEB Last administered on 11/21/16 07:56 ; Start 11/18/16 at 16:30 Vancomycin HCl/ Sodium Chloride (Iv Sodium Chloride 0.9% 250ml) 250 ml @ 250 mls/hr Q24H IV ; Start 11/20/16 at 09:15; Status Cancel Vancomycin HCl 1 each 1 each PRN DAILY PRN MC SEE COMMENTS Last administered on 11/20/16 16:44; Start 11/20/16 at 09:15 Vancomycin HCl 1.5 gm/Sodium Chloride 500 ml @ 250 mls/hr 1X ONCE IV Last administered on 11/20/16 09:51; Start 11/20/16 at 10:00; Stop 11/20/16 at 11:59; Status DC Vancomycin HCl/ Sodium Chloride (Iv Sodium Chloride 0.9% 250ml) 250 ml @ 250 mls/hr Q24H IV ; Start 11/21/16 at 10:00 Vancomycin HCl 1 each 1X ONCE MC ; Start 11/22/16 at 09:30; Stop 11/22/16 at 09 :31 Active Scripts Active Atenolol 25 Mg Tablet 50 Mg PEG DAILY Amlodipine Besylate 5 Mg Tablet 5 Mg PEG DAILY Reported Bystolic (Nebivolol) 5 Mg Tablet 5 Mg PO DAILY Sulfamethoxazole-Tmp Ds Tablet (Sulfamethoxazole/Trimethoprim) 1 Each Tablet 1 Tab PO BID Oxycodone Hcl 5 Mg/5 Ml Solution 5 Mg PEG Q 4HRS PRN PAIN PRN Aricept (Donepezil Hcl) 5 Mg Tablet 5 Mg PEG DAILY Proair Hfa Inhaler (Albuterol Sulfate) 8.5 Gm Hfa.aer.ad 2 Puff IH PRN Q4-6HRS Albuterol Sulfate Neb Soln (Albuterol Sulfate) 0.63 Mg/3 Ml Vial.neb 1 Vial NEB PRN PRN Florastor (Saccharomyces Boulardii) 250 Mg Capsule 250 Mg PEG DAILY FENTANYL 50mcg/hr (Fentanyl) 1 Each Patch.td72 1 Patch TP Q3DAYS Xanax (Alprazolam) 0.25 Mg Tablet 0.25 Mg PEG DAILY PRN Citalopram Hbr (Citalopram Hydrobromide) 10 Mg Tablet 1 Tab PEG DAILY Ondansetron Odt (Ondansetron) 4 Mg Tab.rapdis 4 Mg PEG QIDPRN PRN Metoclopramide Hcl 5 Mg/5 Ml Solution 2 Mg PEG TID Cyproheptadine Hcl 4 Mg Tablet 2 Mg PEG TID Diovan (Valsartan) 160 Mg Tablet 160 Mg PEG DAILY Vitals/I & O Vital Sign - Last 24 Hours 11/20/16 11/20/16 11/20/16 11/20/16 10:50 11:37 15:03 15:24 Temp 97.8 97.7 97.8 97.7 Pulse 81 82 Resp 18 18 B/P 109/56 110/59 Pulse Ox 92 94 93 94 O2 Delivery Nasal Cannula Nasal Cannula Nasal Cannula Nasal Cannula O2 Flow Rate 2.0 2.0 2.0 2.0 11/20/16 11/20/16 11/20/16 11/20/16 17:48 18:40 19:00 19:36 Temp 99.3 99.3 Pulse 90 Resp 18 B/P 126/66 Pulse Ox 94 94 100 94 O2 Delivery Nasal Cannula Nasal Cannula Nasal Cannula Nasal Cannula O2 Flow Rate 2.0 2.0 2.0 2.0 11/20/16 11/20/16 11/20/16 11/20/16 20:00 22:04 22:04 23:00 Temp 98.0 98.0 Pulse 90 87 Resp 16 18 B/P 126/66 107/54 Pulse Ox 94 94 O2 Delivery Nasal Cannula Nasal Cannula Nasal Cannula O2 Flow Rate 2.0 2.0 2.0 11/20/16 11/21/16 11/21/16 11/21/16 23:15 03:00 07:00 07:59 Temp 98.6 97.8 98.6 97.8 Pulse 83 86 Resp 19 18 18 B/P 135/68 150/72 Pulse Ox 94 99 92 97 O2 Delivery Nasal Cannula Nasal Cannula Nasal Cannula Nasal Cannula O2 Flow Rate 2.0 2.0 2.0 2.0 11/21/16 11/21/16 11/21/16 11/21/16 08:36 08:38 08:42 08:44 Pulse 86 86 86 B/P 150/72 150/72 150/72 O2 Delivery Nasal Cannula O2 Flow Rate 2.0 11/21/16 11/21/16 11/21/16 08:46 08:47 09:10 Pulse 86 B/P 150/72 O2 Delivery Nasal Cannula Nasal Cannula O2 Flow Rate 2.0 2.0 Intake and Output 11/20/16 11/20/16 11/21/16 15:00 23:00 07:00 Intake Total 1350 ml 1150 ml 550 ml Balance 1350 ml 1150 ml 550 ml Nutrition Consultation Dietary Evaluation: Recommendations by RD: PPN/TPN Expected Outcomes/Goals: to meet > 75% est nutr needs via PEG TF Malnutrition Findings: Body Fat Depletion (Non Severe: Mild Depletion Reduced Link Trainer Strength: N/A Weight Status: Appropriate Fluid Accumulation (N/A): N/A HEAVEN KRAUS MD Nov 21, 2016 10:16
[2016-11-21 10:41] VITALS: BP 133/62
[2016-11-21] MEDS: VANCOMYCIN 1 GM in IV NORMAL SALINE 250ML 250 ML IV SCH (11:24)
[2016-11-21] MEDS: VANCOMYCIN PER PHARMACY MC PRN (12:49)
--- NOTE | 2016-11-21 13:13 | PDOC ---
PULMONARY PROGRESS NOTES Subjective no soa Vitals Vital Signs Date Time Temp Pulse Resp B/P Pulse Ox O2 Delivery O2 Flow Rate FiO2 11/21/16 11:36 Nasal Cannula 2.0 11/21/16 10:41 97.8 82 18 133/62 98 97.8 General: Alert, No acute distress Lungs: Other (decrease bs) Cardiovascular: S1, S2 Abdomen: Soft, Non-tender, Other Neuro Exam: Alert Extremities: No Edema Skin: Warm Labs Laboratory Tests Test 11/20/16 10:45 11/21/16 09:25 Influenza Type A Antigen Negative (NEGATIVE) Influenza Type B Antigen Negative (NEGATIVE) White Blood Count 17.6x10^3/uL (4.0-11.0) Red Blood Count 4.21x10^6/uL (3.50-5.40) Hemoglobin 11.5g/dL (12.0-15.5) Hematocrit 36.1% (36.0-47.0) Mean Corpuscular Volume 86fL (79-100) Mean Corpuscular Hemoglobin 27pg (25-35) Mean Corpuscular Hemoglobin Concent 32g/dL (31-37) Red Cell Distribution Width 15.5% (11.5-14.5) Platelet Count 319x10^3/uL (140-400) Neutrophils (%) (Auto) 71% (31-73) Lymphocytes (%) (Auto) 22% (24-48) Monocytes (%) (Auto) 6% (0-9) Eosinophils (%) (Auto) 1% (0-3) Basophils (%) (Auto) 1% (0-3) Neutrophils # (Auto) 12.6x10^3uL (1.8-7.7) Lymphocytes # (Auto) 3.8x10^3/uL (1.0-4.8) Monocytes # (Auto) 1.0x10^3/uL (0.0-1.1) Eosinophils # (Auto) 0.1x10^3/uL (0.0-0.7) Basophils # (Auto) 0.1x10^3/uL (0.0-0.2) Sodium Level 140mmol/L (136-145) Potassium Level 3.7mmol/L (3.5-5.1) Chloride Level 99mmol/L (98-107) Carbon Dioxide Level 33mmol/L (21-32) Anion Gap 8 (6-14) Blood Urea Nitrogen 14mg/dL (7-20) Creatinine 1.0mg/dL (0.6-1.0) Estimated GFR (Cockcroft-Gault) 65.4 Glucose Level 158mg/dL (70-99) Lactic Acid Level 1.3mmol/L (0.4-2.0) Calcium Level 9.7mg/dL (8.5-10.1) Laboratory Tests Test 11/21/16 09:25 White Blood Count 17.6x10^3/uL (4.0-11.0) Red Blood Count 4.21x10^6/uL (3.50-5.40) Hemoglobin 11.5g/dL (12.0-15.5) Hematocrit 36.1% (36.0-47.0) Mean Corpuscular Volume 86fL (79-100) Mean Corpuscular Hemoglobin 27pg (25-35) Mean Corpuscular Hemoglobin Concent 32g/dL (31-37) Red Cell Distribution Width 15.5% (11.5-14.5) Platelet Count 319x10^3/uL (140-400) Neutrophils (%) (Auto) 71% (31-73) Lymphocytes (%) (Auto) 22% (24-48) Monocytes (%) (Auto) 6% (0-9) Eosinophils (%) (Auto) 1% (0-3) Basophils (%) (Auto) 1% (0-3) Neutrophils # (Auto) 12.6x10^3uL (1.8-7.7) Lymphocytes # (Auto) 3.8x10^3/uL (1.0-4.8) Monocytes # (Auto) 1.0x10^3/uL (0.0-1.1) Eosinophils # (Auto) 0.1x10^3/uL (0.0-0.7) Basophils # (Auto) 0.1x10^3/uL (0.0-0.2) Sodium Level 140mmol/L (136-145) Potassium Level 3.7mmol/L (3.5-5.1) Chloride Level 99mmol/L (98-107) Carbon Dioxide Level 33mmol/L (21-32) Anion Gap 8 (6-14) Blood Urea Nitrogen 14mg/dL (7-20) Creatinine 1.0mg/dL (0.6-1.0) Estimated GFR (Cockcroft-Gault) 65.4 Glucose Level 158mg/dL (70-99) Lactic Acid Level 1.3mmol/L (0.4-2.0) Calcium Level 9.7mg/dL (8.5-10.1) Medications Active Scripts Medications Dose Route/Sig Days Date Category Bystolic (Nebivolol) 5 Mg Tablet 5 Mg PO DAILY 09/17/16 Reported Atenolol 25 Mg Tablet 50 Mg PEG DAILY 06/05/16 Rx Amlodipine Besylate 5 Mg Tablet 5 Mg PEG DAILY 06/05/16 Rx Sulfamethoxazole-Tmp Ds Tablet (Sulfamethoxazole/Trimethoprim) 1 Each Tablet 1 Tab PO BID 06/02/16 Reported Oxycodone Hcl 5 Mg/5 Ml Solution 5 Mg PEG Q 4HRS PRN PAIN PRN 09/10/15 Reported Aricept (Donepezil Hcl) 5 Mg Tablet 5 Mg PEG DAILY 08/16/15 Reported Proair Hfa Inhaler (Albuterol Sulfate) 8.5 Gm Hfa.aer.ad 2 Puff IH PRN Q4-6HRS 08/16/15 Reported Albuterol Sulfate Neb Soln (Albuterol Sulfate) 0.63 Mg/3 Ml Vial.neb 1 Vial NEB PRN PRN 06/19/14 Reported Florastor (Saccharomyces Boulardii) 250 Mg Capsule 250 Mg PEG DAILY 06/19/14 Reported FENTANYL 50mcg/hr (Fentanyl) 1 Each Patch.td72 1 Patch TP Q3DAYS 06/19/14 Reported Xanax (Alprazolam) 0.25 Mg Tablet 0.25 Mg PEG DAILY PRN 06/19/14 Reported Citalopram Hbr (Citalopram Hydrobromide) 10 Mg Tablet 1 Tab PEG DAILY 06/19/14 Reported Ondansetron Odt (Ondansetron) 4 Mg Tab.rapdis 4 Mg PEG QIDPRN PRN 06/19/14 Reported Metoclopramide Hcl 5 Mg/5 Ml Solution 2 Mg PEG TID 12/02/13 Reported Cyproheptadine Hcl 4 Mg Tablet 2 Mg PEG TID 12/02/13 Reported Diovan (Valsartan) 160 Mg Tablet 160 Mg PEG DAILY 12/02/13 Reported Impression . 1. Community-acquired right lower lobe pneumonia. 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 I suspect gram-negative pneumonia. We will obtain cultures. 2. 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 Subsequently, she underwent tracheostomy and receive more radiation treatment. 3. 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 Plan . 1. Continue with present broad-spectrum antibiotics. 2. repeat trach secretions./ culture 3. Continue with bronchodilators. 4. DVT prophylaxis with Lovenox. 5. P.r.n. pain medication. 6. Trach suctioning p.r.n. 7. CXR 11/21 improving RLL infiltrates MARY LANIER MD Nov 21, 2016 13:13
[2016-11-21] MEDS: OXYCODONE IR 5 MG TABLET. PO PRN (13:38)
--- NOTE | 2016-11-21 14:45 | PDOC ---
Provider Note Provider Note 76 yo woman community acquired pneumonia. 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 She was to ponce seen in f/u 11/20/2016 but was here in hospital for treatment of pneumonia. Doing better overall. No neck ear or throat pain. All nutrition via PEG. No SOB , cough better. CT07/2016 of neck and chest stable. No recurrence or met disease seen. PE neck supple, larynx mobile non-tender, no cervical adenopathy. 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 Doing well 13 mo following retreatment.. Will see again in three months and repeat nasopharyngoscopy at that time. LIEN CUEVAS MD Nov 21, 2016 14:45
[2016-11-21 14:52] VITALS: BP 131/60
[2016-11-21 19:00] VITALS: BP 133/59
[2016-11-21] MEDS: ENOXAPARIN 40 MG/0.4 ML DISP.SYRIN. SQ SCH (22:30)
[2016-11-21 23:00] VITALS: BP 170/73
[2016-11-22] MEDS: PIPERACILLIN/TAZOBACTAM 3.375 GM in IV NORMAL SALINE 50ML 50 ML IV SCH ×4 (01:14→18:06)
[2016-11-22 03:00] VITALS: BP 175/88
[2016-11-22] MEDS: OXYCODONE 5 MG/5 ML ORAL SOLUTION. PEG PRN ×4 (03:37→18:06)
[2016-11-22 07:00] VITALS: BP 160/75
[2016-11-22] MEDS: VANCOMYCIN PER PHARMACY MC PRN ×3 (08:39→12:05)
[2016-11-22] MEDS: IPRATRPIUM/ALBUTEROL 0.5/2.5MG 3 ML NEBU. NEB SCH ×4 (09:10→20:55)
[2016-11-22] MEDS: ATENOLOL 25 MG TABLET PEG SCH (09:18)
[2016-11-22] MEDS: CYPROHEPTADINE 4 MG TABLET. PEG SCH ×3 (09:19→21:20)
[2016-11-22] MEDS: DONEPEZIL HCL 5 MG TABLET. PEG SCH (09:20)
[2016-11-22] MEDS: METOPROLOL TART IMMED RELEASE 25 MG TABLET PO SCH ×2 (09:20→21:21)
[2016-11-22] MEDS: SACCHAROMYCES BOULARDII 250 MG CAPSULE. PEG SCH (09:20)
[2016-11-22] MEDS: DOCUSATE SODIUM 100 MG CAPSULE PO SCH ×2 (09:20→21:19)
[2016-11-22] MEDS: AMLODIPINE BESYLATE 5 MG TABLET PEG SCH (09:21)
[2016-11-22] MEDS: LOSARTAN POTASSIUM 50 MG TABLET. PO SCH (09:21)
[2016-11-22] MEDS: CITALOPRAM 10 MG TABLET. PEG SCH (09:21)
[2016-11-22] MEDS: FENTANYL 50MCG/HR PATCH. TD SCH (09:22)
[2016-11-22] MEDS: GUAIFENESIN DM 200MG/20MG 10 ML SYRUP. PO SCH ×4 (09:22→21:19)
[2016-11-22] MEDS: METOCLOPRAMIDE HCL 10 MG/10 ML SOLUTION. PO SCH ×3 (09:23→16:18)
[2016-11-22 11:00] VITALS: BP 144/80
[2016-11-22] MEDS: VANCOMYCIN 750 MG in IV NORMAL SALINE 250ML 250 ML IV SCH (12:40)
--- NOTE | 2016-11-22 12:46 | PDOC ---
PULMONARY PROGRESS NOTES Subjective no soa Vitals Vital Signs Date Time Temp Pulse Resp B/P Pulse Ox O2 Delivery O2 Flow Rate FiO2 11/22/16 11:37 94 Nasal Cannula 2.0 11/22/16 11:00 97.6 80 22 144/80 97.6 General: Alert, No acute distress Lungs: Other (decrease bs) Cardiovascular: S1, S2 Abdomen: Soft, Non-tender, Other Neuro Exam: Alert Extremities: No Edema Skin: Warm Labs Laboratory Tests Test 11/21/16 09:25 11/22/16 11:00 White Blood Count 17.6x10^3/uL (4.0-11.0) Red Blood Count 4.21x10^6/uL (3.50-5.40) Hemoglobin 11.5g/dL (12.0-15.5) Hematocrit 36.1% (36.0-47.0) Mean Corpuscular Volume 86fL (79-100) Mean Corpuscular Hemoglobin 27pg (25-35) Mean Corpuscular Hemoglobin Concent 32g/dL (31-37) Red Cell Distribution Width 15.5% (11.5-14.5) Platelet Count 319x10^3/uL (140-400) Neutrophils (%) (Auto) 71% (31-73) Lymphocytes (%) (Auto) 22% (24-48) Monocytes (%) (Auto) 6% (0-9) Eosinophils (%) (Auto) 1% (0-3) Basophils (%) (Auto) 1% (0-3) Neutrophils # (Auto) 12.6x10^3uL (1.8-7.7) Lymphocytes # (Auto) 3.8x10^3/uL (1.0-4.8) Monocytes # (Auto) 1.0x10^3/uL (0.0-1.1) Eosinophils # (Auto) 0.1x10^3/uL (0.0-0.7) Basophils # (Auto) 0.1x10^3/uL (0.0-0.2) Sodium Level 140mmol/L (136-145) Potassium Level 3.7mmol/L (3.5-5.1) Chloride Level 99mmol/L (98-107) Carbon Dioxide Level 33mmol/L (21-32) Anion Gap 8 (6-14) Blood Urea Nitrogen 14mg/dL (7-20) Creatinine 1.0mg/dL (0.6-1.0) Estimated GFR (Cockcroft-Gault) 65.4 Glucose Level 158mg/dL (70-99) Lactic Acid Level 1.3mmol/L (0.4-2.0) Calcium Level 9.7mg/dL (8.5-10.1) Vancomycin Level Trough 8.3mcg/mL (10.0-20.0) Vancomycin Last Dose Date 11/21/16 Vancomycin Last Dose Time 1000 Laboratory Tests Test 11/22/16 11:00 Vancomycin Level Trough 8.3mcg/mL (10.0-20.0) Vancomycin Last Dose Date 11/21/16 Vancomycin Last Dose Time 1000 Medications Active Scripts Medications Dose Route/Sig Days Date Category Bystolic (Nebivolol) 5 Mg Tablet 5 Mg PO DAILY 09/17/16 Reported Atenolol 25 Mg Tablet 50 Mg PEG DAILY 06/05/16 Rx Amlodipine Besylate 5 Mg Tablet 5 Mg PEG DAILY 06/05/16 Rx Sulfamethoxazole-Tmp Ds Tablet (Sulfamethoxazole/Trimethoprim) 1 Each Tablet 1 Tab PO BID 06/02/16 Reported Oxycodone Hcl 5 Mg/5 Ml Solution 5 Mg PEG Q 4HRS PRN PAIN PRN 09/10/15 Reported Aricept (Donepezil Hcl) 5 Mg Tablet 5 Mg PEG DAILY 08/16/15 Reported Proair Hfa Inhaler (Albuterol Sulfate) 8.5 Gm Hfa.aer.ad 2 Puff IH PRN Q4-6HRS 08/16/15 Reported Albuterol Sulfate Neb Soln (Albuterol Sulfate) 0.63 Mg/3 Ml Vial.neb 1 Vial NEB PRN PRN 06/19/14 Reported Florastor (Saccharomyces Boulardii) 250 Mg Capsule 250 Mg PEG DAILY 06/19/14 Reported FENTANYL 50mcg/hr (Fentanyl) 1 Each Patch.td72 1 Patch TP Q3DAYS 06/19/14 Reported Xanax (Alprazolam) 0.25 Mg Tablet 0.25 Mg PEG DAILY PRN 06/19/14 Reported Citalopram Hbr (Citalopram Hydrobromide) 10 Mg Tablet 1 Tab PEG DAILY 06/19/14 Reported Ondansetron Odt (Ondansetron) 4 Mg Tab.rapdis 4 Mg PEG QIDPRN PRN 06/19/14 Reported Metoclopramide Hcl 5 Mg/5 Ml Solution 2 Mg PEG TID 12/02/13 Reported Cyproheptadine Hcl 4 Mg Tablet 2 Mg PEG TID 12/02/13 Reported Diovan (Valsartan) 160 Mg Tablet 160 Mg PEG DAILY 12/02/13 Reported Impression . 1. Community-acquired right lower lobe pneumonia. 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 I suspect gram-negative pneumonia. We will obtain cultures. 2. 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 Subsequently, she underwent tracheostomy and receive more radiation treatment. 3. 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 Plan . 1. Continue with present broad-spectrum antibiotics. 2. repeat trach secretions./ culture WITH GRAM POSITIVE RODS 3. Continue with bronchodilators. 4. DVT prophylaxis with Lovenox. 5. P.r.n. pain medication. 6. Trach suctioning p.r.n. 7. CXR 11/21 improving RLL infiltrates MARY LANIER MD Nov 22, 2016 12:46
[2016-11-22] MEDS: VANCOMYCIN 1 GM in IV NORMAL SALINE 250ML 250 ML IV SCH (12:51)
--- NOTE | 2016-11-22 14:41 | PDOC ---
PROGRESS NOTES Chief Complaint Chief Complaint 1. bl CAP 2. SIRS POA, no sepsis 3. LUng CA stage 3 N0M0, s/p radiation and chemo - claims to be cancer free 4. Laryngeal CA currently trached 5. Dysphagia with indwelling pEG on TF 6. 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 AOCD 8. HTN 9. Hx DVT 10. HX COPD< prev heavy smoker 11. HTN, dyslipdimeia - chronic stable 12. Positive MRSA nares plan: 1. fu with RT, PULM, ID 2. onvanco, zosyn, leva 3. TRACH care 4. PEG for feeding guarded prognosis SNF? History of Present Illness History of Present Illness WBC peaks at 17 today lactate normal 1.3 - (did order these labs earlier)_ Low grade temp last night 7 pm 99.3 Still secretions from trach First specimen is spit Second specimen sent now (did order earlier today) TF running via PEG no issues MRSa positive in nares very weak Vitals Vitals Vital Signs Date Time Temp Pulse Resp B/P Pulse Ox O2 Delivery O2 Flow Rate FiO2 11/22/16 11:37 94 Nasal Cannula 2.0 11/22/16 11:00 97.6 80 22 144/80 97.6 Physical Exam General: Oriented X3, Cooperative, Other (weak) Lungs: Other (decrease bs) Abdomen: Normal bowel sounds, Soft, No tenderness, No hepatosplenomegaly, No masses, Other (indwelling PEG) Extremities: No clubbing, No cyanosis, No edema, Normal pulses, No tenderness/ swelling Skin: No rashes, No breakdown, No significant lesion Labs LABS Laboratory Tests Test 11/22/16 11:00 Vancomycin Level Trough 8.3mcg/mL (10.0-20.0) Vancomycin Last Dose Date 11/21/16 Vancomycin Last Dose Time 1000 Review of Systems Review of Systems no fever, chills, chest pain Assessment and Plan Assessmemt and Plan Problems Medical Problems: (1) CAP (community acquired pneumonia) Status: Acute (2) CAP (community acquired pneumonia) Status: Acute Problems: Comment Review of Relevant I have reviewed the following items miko (where applicable) has been applied. Labs Laboratory Tests Test 11/21/16 09:25 11/22/16 11:00 White Blood Count 17.6x10^3/uL (4.0-11.0) Red Blood Count 4.21x10^6/uL (3.50-5.40) Hemoglobin 11.5g/dL (12.0-15.5) Hematocrit 36.1% (36.0-47.0) Mean Corpuscular Volume 86fL (79-100) Mean Corpuscular Hemoglobin 27pg (25-35) Mean Corpuscular Hemoglobin Concent 32g/dL (31-37) Red Cell Distribution Width 15.5% (11.5-14.5) Platelet Count 319x10^3/uL (140-400) Neutrophils (%) (Auto) 71% (31-73) Lymphocytes (%) (Auto) 22% (24-48) Monocytes (%) (Auto) 6% (0-9) Eosinophils (%) (Auto) 1% (0-3) Basophils (%) (Auto) 1% (0-3) Neutrophils # (Auto) 12.6x10^3uL (1.8-7.7) Lymphocytes # (Auto) 3.8x10^3/uL (1.0-4.8) Monocytes # (Auto) 1.0x10^3/uL (0.0-1.1) Eosinophils # (Auto) 0.1x10^3/uL (0.0-0.7) Basophils # (Auto) 0.1x10^3/uL (0.0-0.2) Sodium Level 140mmol/L (136-145) Potassium Level 3.7mmol/L (3.5-5.1) Chloride Level 99mmol/L (98-107) Carbon Dioxide Level 33mmol/L (21-32) Anion Gap 8 (6-14) Blood Urea Nitrogen 14mg/dL (7-20) Creatinine 1.0mg/dL (0.6-1.0) Estimated GFR (Cockcroft-Gault) 65.4 Glucose Level 158mg/dL (70-99) Lactic Acid Level 1.3mmol/L (0.4-2.0) Calcium Level 9.7mg/dL (8.5-10.1) Vancomycin Level Trough 8.3mcg/mL (10.0-20.0) Vancomycin Last Dose Date 11/21/16 Vancomycin Last Dose Time 1000 Laboratory Tests Test 11/22/16 11:00 Vancomycin Level Trough 8.3mcg/mL (10.0-20.0) Vancomycin Last Dose Date 11/21/16 Vancomycin Last Dose Time 1000 Microbiology 11/18/16 Blood Culture - Preliminary, Resulted NO GROWTH AFTER 3 DAYS 11/21/16 Gram Stain - Final, Complete Medications Current Medications Levofloxacin/ Dextrose 1 each 1 each PRN DAILY PRN MC SEE COMMENTS; Start at 15:15 Levofloxacin/ Dextrose 150 ml @ 100 mls/hr 1X ONCE IV Last administered on 15:19; Start 11/18/16 at 15:45; Stop 11/18/16 at 17:14; Status DC Levofloxacin/ Dextrose (LEVAQUIN 750mg PREMIX) 150 ml @ 100 mls/hr Q48H IV Last administered on 11/20/16 15:50; Start 11/20/16 at 16:00 Ondansetron HCl (Zofran) 4 mg PRN Q6HRS PRN IV NAUSEA/VOMITING Last administered on 11/21/16 08:36; Start 11/18/16 at 15:45 Prochlorperazine Edisylate (Compazine) 10 mg PRN Q6HRS PRN IV NAUSEA/VOMITING Last administered on 11/18/16 22:29; Start 11/18/16 at 15:45 Prochlorperazine (Compazine) 25 mg PRN Q12HR PRN UT NAUSEA/VOMITING; Start 11/18 at 15:45 Al Hydroxide/Mg Hydroxide (Mylanta Plus Xs) 30 ml PRN Q3HRS PRN PO HEARTBURN / GAS; Start 11/18/16 at 15:45 Calcium Carbonate/ Glycine (Tums) 500 mg PRN Q3HRS PRN PO UPSET STOMACH; Start 11/18/16 at 15:45 Oxycodone HCl (Roxicodone) 5 mg PRN Q3HRS PRN PO BREAKTHROUGH PAIN Last administered on 11/21/16 13:38; Start 11/18/16 at 15:45 Morphine Sulfate 1 mg PRN Q2HR PRN IV SEVERE PAIN Last administered on 08:36; Start 11/18/16 at 15:45 Acetaminophen (Tylenol) 650 mg PRN Q6HRS PRN PO MILD PAIN / TEMP; Start at 15:45 Ibuprofen (Motrin) 400 mg PRN Q6HRS PRN PO MILD PAIN; Start 11/18/16 at 15:45 Docusate Sodium (Colace) 100 mg BID PO Last administered on 11/22/16 09:20; Start 11/18/16 at 21:00 Magnesium Hydroxide (Milk Of Magnesia) 2,400 mg PRN Q12HR PRN PO CONSTIPATION; Start 11/18/16 at 15:45 Lactulose 20 gm PRN Q12HR PRN PO CONSTIPATION; Start 11/18/16 at 15:45 Bisacodyl (Dulcolax Supp) 10 mg PRN DAILY PRN UT CONSTIPATION; Start 11/18/16 at 15:45 Enoxaparin Sodium (Lovenox 40mg Syringe) 40 mg Q24H SQ Last administered on 22:30; Start 11/18/16 at 21:00 Piperacillin Sod/ Tazobactam Sod (Zosyn Per Pharmacy) 1 each PRN DAILY PRN MC SEE COMMENTS; Start 11/18/16 at 15:45 Guaifenesin 10 ml 10 ml QID PO Last administered on 11/22/16 12:40; Start 11/18 at 17:00 Piperacillin Sod/ Tazobactam Sod/ Sodium Chloride (Zosyn/Iv Sodium Chloride 0.9 % 50ml) 50 ml @ 100 mls/hr Q6HRS IV Last administered on 11/22/16 11:59; Start 11/18/16 at 17:00 Alprazolam (Xanax) 0.25 mg PRN DAILY PRN PEG ANXIETY / AGITATION Last administered on 11/21/16 02:07; Start 11/18/16 at 16:00 Amlodipine Besylate (Norvasc) 5 mg DAILY PEG Last administered on 11/22/16 09: 21; Start 11/18/16 at 16:30 Atenolol (Tenormin) 50 mg DAILY PEG Last administered on 11/22/16 09:18; Start 11/18/16 at 16:30 Citalopram Hydrobromide (Celexa) 10 mg DAILY PEG Last administered on 09:21; Start 11/18/16 at 16:30 Cyproheptadine HCl (Periactin) 2 mg TID PEG Last administered on 11/22/16 13: 58; Start 11/18/16 at 21:00 Donepezil HCl (Aricept) 5 mg DAILY PEG Last administered on 11/22/16 09:20; Start 11/18/16 at 16:30 Fentanyl (Duragesic 50mcg/ Hr Patch) 1 patch Q3DAYS TD Last administered on 09:22; Start 11/19/16 at 09:00 Ondansetron HCl (Zofran Odt) 4 mg QIDPRN PRN PEG NAUSEA/VOMITING Last administered on 11/22/16 09:47; Start 11/18/16 at 16:00 Oxycodone HCl 5 mg PRN QID PRN PEG PAIN Last administered on 11/22/16 13:59; Start 11/18/16 at 16:00 Saccharomyces Boulardii (Florastor) 250 mg DAILY PEG Last administered on 09:20; Start 11/19/16 at 09:00 Albuterol Sulfate (Ventolin Neb Soln) 2.5 mg PRN Q4HRS PRN NEB SHORTNESS OF BREATH; Start 11/18/16 at 16:15 Metoclopramide HCl (Reglan) 2 mg TIDAC PO Last administered on 11/22/16 12:41 ; Start 11/18/16 at 16:30 Metoprolol Tartrate (Lopressor) 25 mg BID PO Last administered on 11/22/16 09: 20; Start 11/18/16 at 21:00 Losartan Potassium (Cozaar) 100 mg DAILY PO Last administered on 11/22/16 09: 21; Start 11/18/16 at 16:30 Albuterol/ Ipratropium 3 ml 3 ml RTQID NEB Last administered on 11/22/16 11:36 ; Start 11/18/16 at 16:30 Vancomycin HCl/ Sodium Chloride (Iv Sodium Chloride 0.9% 250ml) 250 ml @ 250 mls/hr Q24H IV ; Start 11/20/16 at 09:15; Status Cancel Vancomycin HCl 1 each 1 each PRN DAILY PRN MC SEE COMMENTS Last administered on 11/22/16 12:05; Start 11/20/16 at 09:15 Vancomycin HCl 1.5 gm/Sodium Chloride 500 ml @ 250 mls/hr 1X ONCE IV Last administered on 11/20/16 09:51; Start 11/20/16 at 10:00; Stop 11/20/16 at 11:59; Status DC Vancomycin HCl/ Sodium Chloride (Iv Sodium Chloride 0.9% 250ml) 250 ml @ 250 mls/hr Q24H IV Last administered on 11/21/16 11:24; Start 11/21/16 at 10:00; Stop 11/22/16 at 11:57; Status DC Vancomycin HCl 1 each 1 each 1X ONCE MC Last administered on 11/22/16 10:30; Start 11/22/16 at 09:30; Stop 11/22/16 at 09:31; Status DC Vancomycin HCl/ Sodium Chloride (Iv Sodium Chloride 0.9% 250ml) 250 ml @ 250 mls/hr Q12H IV Last administered on 11/22/16 12:40; Start 11/22/16 at 12:00 Active Scripts Active Atenolol 25 Mg Tablet 50 Mg PEG DAILY Amlodipine Besylate 5 Mg Tablet 5 Mg PEG DAILY Reported Bystolic (Nebivolol) 5 Mg Tablet 5 Mg PO DAILY Sulfamethoxazole-Tmp Ds Tablet (Sulfamethoxazole/Trimethoprim) 1 Each Tablet 1 Tab PO BID Oxycodone Hcl 5 Mg/5 Ml Solution 5 Mg PEG Q 4HRS PRN PAIN PRN Aricept (Donepezil Hcl) 5 Mg Tablet 5 Mg PEG DAILY Proair Hfa Inhaler (Albuterol Sulfate) 8.5 Gm Hfa.aer.ad 2 Puff IH PRN Q4-6HRS Albuterol Sulfate Neb Soln (Albuterol Sulfate) 0.63 Mg/3 Ml Vial.neb 1 Vial NEB PRN PRN Florastor (Saccharomyces Boulardii) 250 Mg Capsule 250 Mg PEG DAILY FENTANYL 50mcg/hr (Fentanyl) 1 Each Patch.td72 1 Patch TP Q3DAYS Xanax (Alprazolam) 0.25 Mg Tablet 0.25 Mg PEG DAILY PRN Citalopram Hbr (Citalopram Hydrobromide) 10 Mg Tablet 1 Tab PEG DAILY Ondansetron Odt (Ondansetron) 4 Mg Tab.rapdis 4 Mg PEG QIDPRN PRN Metoclopramide Hcl 5 Mg/5 Ml Solution 2 Mg PEG TID Cyproheptadine Hcl 4 Mg Tablet 2 Mg PEG TID Diovan (Valsartan) 160 Mg Tablet 160 Mg PEG DAILY Vitals/I & O Vital Sign - Last 24 Hours 11/21/16 11/21/16 11/21/16 11/21/16 14:40 14:52 15:50 17:58 Temp 97.8 97.8 Pulse 88 Resp 18 B/P 131/60 Pulse Ox 92 O2 Delivery Nasal Cannula Nasal Cannula Nasal Cannula Nasal Cannula O2 Flow Rate 2.0 2.0 2.0 2.0 11/21/16 11/21/16 11/21/16 11/21/16 19:00 19:58 20:00 22:18 Temp 98.9 98.9 Pulse 94 Resp 22 B/P 133/59 Pulse Ox 89 93 O2 Delivery Nasal Cannula Nasal Cannula Nasal Cannula O2 Flow Rate 2.0 2.0 2.0 11/21/16 11/21/16 11/22/16 11/22/16 22:29 23:00 03:00 03:37 Temp 98.1 98.5 98.1 98.5 Pulse 83 78 85 Resp 20 20 18 B/P 156/78 170/73 175/88 Pulse Ox 93 98 93 O2 Delivery Nasal Cannula O2 Flow Rate 2.0 11/22/16 11/22/16 11/22/16 11/22/16 04:30 07:00 08:00 09:14 Temp 98.0 98.0 Pulse 78 Resp 20 B/P 160/75 Pulse Ox 97 93 O2 Delivery Nasal Cannula Room Air Nasal Cannula Nasal Cannula O2 Flow Rate 2.0 2.0 2.0 11/22/16 11/22/16 11/22/16 11/22/16 09:18 09:20 09:21 09:21 Pulse 78 78 78 78 B/P 160/75 160/75 160/75 160/75 11/22/16 11/22/16 11:00 11:37 Temp 97.6 97.6 Pulse 80 Resp 22 B/P 144/80 Pulse Ox 94 94 O2 Delivery Nasal Cannula Nasal Cannula O2 Flow Rate 2.0 2.0 Intake and Output 11/21/16 11/21/16 11/22/16 15:00 23:00 07:00 Intake Total 2425 ml 1425 ml 1300 ml Balance 2425 ml 1425 ml 1300 ml Nutrition Consultation Dietary Evaluation: Recommendations by RD: PPN/TPN Comments: continue bolus TF Expected Outcomes/Goals: to meet > 75% est nutr needs via PEG TF - met, goal on going Malnutrition Findings: Body Fat Depletion (Non Severe: Mild Depletion Reduced Straightener And Aligner Strength: N/A Weight Status: Appropriate Fluid Accumulation (N/A): N/A JAVIER IRVIN MD Nov 22, 2016 14:41
--- NOTE | 2016-11-22 14:46 | PDOC ---
Infectious Disease Note Vital Sign Vital Signs Vital Signs Date Time Temp Pulse Resp B/P Pulse Ox O2 Delivery O2 Flow Rate FiO2 11/22/16 11:37 94 Nasal Cannula 2.0 11/22/16 09:21 78 160/75 11/22/16 07:00 98.0 20 98.0 Labs Lab Laboratory Tests Test 11/22/16 11:00 Vancomycin Level Trough 8.3mcg/mL (10.0-20.0) Vancomycin Last Dose Date 11/21/16 Vancomycin Last Dose Time 1000 CXR IMPRESSION: 1. New small left perihilar infiltrate. 2. Right basilar infiltrates have improved but not completely resolved. 3. Stable posttreatment retrocardiac opacity and volume loss. Micro BLOOD CULTURE Preliminary NO GROWTH AFTER 3 DAYS Objective Assessment Leukocytosis - clinically looks ok Pneumonia - New on left Abdominal pain -Peg. 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 Plan Plan of Care Vanc, Zosyn and Levaquin Monitor labs and f/u cultures CMP/Procalcitonin in am Thank you Attending Co-Sign Attending Co-Sign The patient was seen and interviewed as well as examined at the bedside. The chart was reviewed. The case was discussed. Agree with the plan of care. ANA PAULA VILLAR APRN Nov 22, 2016 11:56 GWEN MCQUEEN MD Nov 22, 2016 15:05
[2016-11-22 15:00] VITALS: BP 136/67
[2016-11-22 19:00] VITALS: BP 123/64
[2016-11-22] MEDS: ENOXAPARIN 40 MG/0.4 ML DISP.SYRIN. SQ SCH (21:22)
[2016-11-22 22:33] VITALS: BP 139/74
[2016-11-23] MEDS: PIPERACILLIN/TAZOBACTAM 3.375 GM in IV NORMAL SALINE 50ML 50 ML IV SCH ×4 (00:17→17:11)
[2016-11-23] MEDS: VANCOMYCIN 750 MG in IV NORMAL SALINE 250ML 250 ML IV SCH ×2 (01:02→12:35)
[2016-11-23 03:00] VITALS: BP 141/76
[2016-11-23 06:01] LABS: ALBUMIN 2.5 g/dL (3.4-5.0); ALBUMIN/GLOBULIN RATIO 0.5 (1.0-1.7); ALK PHOS 79 U/L (46-116); ALT (SGPT) 29 U/L (14-59); ANION GAP 8 (6-14); AST (SGOT) 18 U/L (15-37); BLOOD UREA NITROGEN 15 mg/dL (7-20); BUN/CREATININE RATIO 17 (6-20); CALCIUM 9.6 mg/dL (8.5-10.1); CARBON DIOXIDE 29 mmol/L (21-32); CHLORIDE 105 mmol/L (98-107); CREATININE 0.9 mg/dL (0.6-1.0); GFR 73.9; GLUCOSE 96 mg/dL (70-99); POTASSIUM 3.6 mmol/L (3.5-5.1); SODIUM 142 mmol/L (136-145); TOTAL BILIRUBIN 0.3 mg/dL (0.2-1.0); TOTAL PROTEIN 7.8 g/dL (6.4-8.2)
[2016-11-23 06:38] LABS: PROCALCITONIN < 0.10 ng/mL (0.00-0.10)
[2016-11-23 07:00] VITALS: BP 149/75
[2016-11-23] MEDS: IPRATRPIUM/ALBUTEROL 0.5/2.5MG 3 ML NEBU. NEB SCH ×4 (07:25→19:18)
[2016-11-23] MEDS: GUAIFENESIN DM 200MG/20MG 10 ML SYRUP. PO SCH ×4 (08:27→21:51)
[2016-11-23] MEDS: METOCLOPRAMIDE HCL 10 MG/10 ML SOLUTION. PO SCH ×3 (08:27→17:11)
[2016-11-23] MEDS: CYPROHEPTADINE 4 MG TABLET. PEG SCH ×3 (08:28→21:49)
[2016-11-23] MEDS: DONEPEZIL HCL 5 MG TABLET. PEG SCH (08:28)
[2016-11-23] MEDS: SACCHAROMYCES BOULARDII 250 MG CAPSULE. PEG SCH (08:28)
[2016-11-23] MEDS: DOCUSATE SODIUM 100 MG CAPSULE PO SCH ×2 (08:28→21:00)
[2016-11-23] MEDS: CITALOPRAM 10 MG TABLET. PEG SCH (08:28)
[2016-11-23] MEDS: LOSARTAN POTASSIUM 50 MG TABLET. PO SCH (08:29)
[2016-11-23] MEDS: METOPROLOL TART IMMED RELEASE 25 MG TABLET PO SCH ×2 (08:29→21:50)
[2016-11-23] MEDS: AMLODIPINE BESYLATE 5 MG TABLET PEG SCH (08:29)
[2016-11-23] MEDS: ATENOLOL 25 MG TABLET PEG SCH (08:30)
--- NOTE | 2016-11-23 11:27 | PDOC ---
PULMONARY PROGRESS NOTES Subjective no soa Vitals Vital Signs Date Time Temp Pulse Resp B/P Pulse Ox O2 Delivery O2 Flow Rate FiO2 11/23/16 11:18 85 18 11/23/16 11:13 Nasal Cannula 2.0 11/23/16 08:30 149/75 11/23/16 07:00 98.6 92 98.6 General: Alert, No acute distress Lungs: Other (decrease bs) Cardiovascular: S1, S2 Abdomen: Soft, Non-tender, Other Neuro Exam: Alert Extremities: No Edema Skin: Warm Labs Laboratory Tests Test 11/22/16 11:00 11/23/16 05:20 Vancomycin Level Trough 8.3mcg/mL (10.0-20.0) Vancomycin Last Dose Date 11/21/16 Vancomycin Last Dose Time 1000 Sodium Level 142mmol/L (136-145) Potassium Level 3.6mmol/L (3.5-5.1) Chloride Level 105mmol/L (98-107) Carbon Dioxide Level 29mmol/L (21-32) Anion Gap 8 (6-14) Blood Urea Nitrogen 15mg/dL (7-20) Creatinine 0.9mg/dL (0.6-1.0) Estimated GFR (Cockcroft-Gault) 73.9 BUN/Creatinine Ratio 17 (6-20) Glucose Level 96mg/dL (70-99) Calcium Level 9.6mg/dL (8.5-10.1) Total Bilirubin 0.3mg/dL (0.2-1.0) Aspartate Amino Transf (AST/SGOT) 18U/L (15-37) Alanine Aminotransferase (ALT/SGPT) 29U/L (14-59) Alkaline Phosphatase 79U/L (46-116) Total Protein 7.8g/dL (6.4-8.2) Albumin 2.5g/dL (3.4-5.0) Albumin/Globulin Ratio 0.5 (1.0-1.7) Procalcitonin < 0.10ng/mL (0.00-0.10) Laboratory Tests Test 11/23/16 05:20 Sodium Level 142mmol/L (136-145) Potassium Level 3.6mmol/L (3.5-5.1) Chloride Level 105mmol/L (98-107) Carbon Dioxide Level 29mmol/L (21-32) Anion Gap 8 (6-14) Blood Urea Nitrogen 15mg/dL (7-20) Creatinine 0.9mg/dL (0.6-1.0) Estimated GFR (Cockcroft-Gault) 73.9 BUN/Creatinine Ratio 17 (6-20) Glucose Level 96mg/dL (70-99) Calcium Level 9.6mg/dL (8.5-10.1) Total Bilirubin 0.3mg/dL (0.2-1.0) Aspartate Amino Transf (AST/SGOT) 18U/L (15-37) Alanine Aminotransferase (ALT/SGPT) 29U/L (14-59) Alkaline Phosphatase 79U/L (46-116) Total Protein 7.8g/dL (6.4-8.2) Albumin 2.5g/dL (3.4-5.0) Albumin/Globulin Ratio 0.5 (1.0-1.7) Procalcitonin < 0.10ng/mL (0.00-0.10) Medications Active Scripts Medications Dose Route/Sig Days Date Category Bystolic (Nebivolol) 5 Mg Tablet 5 Mg PO DAILY 09/17/16 Reported Atenolol 25 Mg Tablet 50 Mg PEG DAILY 06/05/16 Rx Amlodipine Besylate 5 Mg Tablet 5 Mg PEG DAILY 06/05/16 Rx Sulfamethoxazole-Tmp Ds Tablet (Sulfamethoxazole/Trimethoprim) 1 Each Tablet 1 Tab PO BID 06/02/16 Reported Oxycodone Hcl 5 Mg/5 Ml Solution 5 Mg PEG Q 4HRS PRN PAIN PRN 09/10/15 Reported Aricept (Donepezil Hcl) 5 Mg Tablet 5 Mg PEG DAILY 08/16/15 Reported Proair Hfa Inhaler (Albuterol Sulfate) 8.5 Gm Hfa.aer.ad 2 Puff IH PRN Q4-6HRS 08/16/15 Reported Albuterol Sulfate Neb Soln (Albuterol Sulfate) 0.63 Mg/3 Ml Vial.neb 1 Vial NEB PRN PRN 06/19/14 Reported Florastor (Saccharomyces Boulardii) 250 Mg Capsule 250 Mg PEG DAILY 06/19/14 Reported FENTANYL 50mcg/hr (Fentanyl) 1 Each Patch.td72 1 Patch TP Q3DAYS 06/19/14 Reported Xanax (Alprazolam) 0.25 Mg Tablet 0.25 Mg PEG DAILY PRN 06/19/14 Reported Citalopram Hbr (Citalopram Hydrobromide) 10 Mg Tablet 1 Tab PEG DAILY 06/19/14 Reported Ondansetron Odt (Ondansetron) 4 Mg Tab.rapdis 4 Mg PEG QIDPRN PRN 06/19/14 Reported Metoclopramide Hcl 5 Mg/5 Ml Solution 2 Mg PEG TID 12/02/13 Reported Cyproheptadine Hcl 4 Mg Tablet 2 Mg PEG TID 12/02/13 Reported Diovan (Valsartan) 160 Mg Tablet 160 Mg PEG DAILY 12/02/13 Reported Impression . 1. Community-acquired right lower lobe pneumonia. 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 I suspect gram-negative pneumonia. We will obtain cultures. 2. 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 Subsequently, she underwent tracheostomy and receive more radiation treatment. 3. 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 Plan . 1. Continue with present broad-spectrum antibiotics per ID 2. repeat trach secretions./ culture WITH GRAM POSITIVE RODS 3. Continue with bronchodilators. 4. DVT prophylaxis with Lovenox. 5. P.r.n. pain medication. 6. Trach suctioning p.r.n. 7. CXR 11/21 improving RLL infiltrates MARY LANIER MD Nov 23, 2016 11:27
[2016-11-23] MEDS: OXYCODONE 5 MG/5 ML ORAL SOLUTION. PEG PRN ×2 (11:52→21:53)
[2016-11-23 12:45] LABS: BASO # 0.1 x10^3/uL (0.0-0.2); BASO % 1 % (0-3); EOS % 2 % (0-3); HEMATOCRIT 37.7 % (36.0-47.0); LYMPH # 2.3 x10^3/uL (1.0-4.8); LYMPH % 25 % (24-48); MEAN CORPUSCULAR HEMOGLOBIN 27 pg (25-35); MEAN CORPUSCULAR HGB CONC 32 g/dL (31-37); MEAN CORPUSCULAR VOLUME 85 fL (79-100); MONO % 8 % (0-9); NEUT % 65 % (31-73); PLATELET COUNT 353 x10^3/uL (140-400); RED BLOOD COUNT 4.42 x10^6/uL (3.50-5.40); RED CELL DISTRIBUTION WIDTH 15.2 % (11.5-14.5); WHITE BLOOD COUNT 9.4 x10^3/uL (4.0-11.0)
--- NOTE | 2016-11-23 14:03 | PDOC ---
PROGRESS NOTES Chief Complaint Chief Complaint 1. bl CAP 2. SIRS POA, no sepsis 3. LUng CA stage 3 N0M0, s/p radiation and chemo - claims to be cancer free 4. Laryngeal CA currently trached 5. Dysphagia with indwelling pEG on TF 6. 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 AOCD 8. HTN 9. Hx DVT 10. HX COPD< prev heavy smoker 11. HTN, dyslipdimeia - chronic stable 12. Positive MRSA nares plan: 1. fu with RT, PULM, ID 2. onvanco, zosyn, leva 3. TRACH care 4. PEG for feeding guarded prognosis SNF? History of Present Illness History of Present Illness WBC peaks at 17 today lactate normal 1.3 - (did order these labs earlier)_ Low grade temp last night 7 pm 99.3 Still secretions from trach First specimen is spit Second specimen sent now (did order earlier today) TF running via PEG no issues MRSa positive in nares very weak, more awake today Vitals Vitals Vital Signs Date Time Temp Pulse Resp B/P Pulse Ox O2 Delivery O2 Flow Rate FiO2 11/23/16 12:41 18 Nasal Cannula 2.0 11/23/16 11:18 85 11/23/16 08:30 149/75 11/23/16 07:00 98.6 92 98.6 Physical Exam General: Oriented X3, Cooperative, Other (weak) Lungs: Other (decrease bs) Abdomen: Normal bowel sounds, Soft, No tenderness, No hepatosplenomegaly, No masses, Other (indwelling PEG) Extremities: No clubbing, No cyanosis, No edema, Normal pulses, No tenderness/ swelling Skin: No rashes, No breakdown, No significant lesion Labs LABS Laboratory Tests Test 11/23/16 05:20 11/23/16 11:45 Sodium Level 142mmol/L (136-145) Potassium Level 3.6mmol/L (3.5-5.1) Chloride Level 105mmol/L (98-107) Carbon Dioxide Level 29mmol/L (21-32) Anion Gap 8 (6-14) Blood Urea Nitrogen 15mg/dL (7-20) Creatinine 0.9mg/dL (0.6-1.0) Estimated GFR (Cockcroft-Gault) 73.9 BUN/Creatinine Ratio 17 (6-20) Glucose Level 96mg/dL (70-99) Calcium Level 9.6mg/dL (8.5-10.1) Total Bilirubin 0.3mg/dL (0.2-1.0) Aspartate Amino Transf (AST/SGOT) 18U/L (15-37) Alanine Aminotransferase (ALT/SGPT) 29U/L (14-59) Alkaline Phosphatase 79U/L (46-116) Total Protein 7.8g/dL (6.4-8.2) Albumin 2.5g/dL (3.4-5.0) Albumin/Globulin Ratio 0.5 (1.0-1.7) Procalcitonin < 0.10ng/mL (0.00-0.10) White Blood Count 9.4x10^3/uL (4.0-11.0) Red Blood Count 4.42x10^6/uL (3.50-5.40) Hemoglobin 12.0g/dL (12.0-15.5) Hematocrit 37.7% (36.0-47.0) Mean Corpuscular Volume 85fL (79-100) Mean Corpuscular Hemoglobin 27pg (25-35) Mean Corpuscular Hemoglobin Concent 32g/dL (31-37) Red Cell Distribution Width 15.2% (11.5-14.5) Platelet Count 353x10^3/uL (140-400) Neutrophils (%) (Auto) 65% (31-73) Lymphocytes (%) (Auto) 25% (24-48) Monocytes (%) (Auto) 8% (0-9) Eosinophils (%) (Auto) 2% (0-3) Basophils (%) (Auto) 1% (0-3) Neutrophils # (Auto) 6.1x10^3uL (1.8-7.7) Lymphocytes # (Auto) 2.3x10^3/uL (1.0-4.8) Monocytes # (Auto) 0.8x10^3/uL (0.0-1.1) Eosinophils # (Auto) 0.2x10^3/uL (0.0-0.7) Basophils # (Auto) 0.1x10^3/uL (0.0-0.2) Review of Systems Review of Systems no fever, chills, sob or chest pain Assessment and Plan Assessmemt and Plan Problems Medical Problems: (1) CAP (community acquired pneumonia) Status: Acute (2) CAP (community acquired pneumonia) Status: Acute Problems: Comment Review of Relevant I have reviewed the following items miko (where applicable) has been applied. Labs Laboratory Tests Test 11/22/16 11:00 11/23/16 05:20 11/23/16 11:45 Vancomycin Level Trough 8.3mcg/mL (10.0-20.0) Vancomycin Last Dose Date 11/21/16 Vancomycin Last Dose Time 1000 Sodium Level 142mmol/L (136-145) Potassium Level 3.6mmol/L (3.5-5.1) Chloride Level 105mmol/L (98-107) Carbon Dioxide Level 29mmol/L (21-32) Anion Gap 8 (6-14) Blood Urea Nitrogen 15mg/dL (7-20) Creatinine 0.9mg/dL (0.6-1.0) Estimated GFR (Cockcroft-Gault) 73.9 BUN/Creatinine Ratio 17 (6-20) Glucose Level 96mg/dL (70-99) Calcium Level 9.6mg/dL (8.5-10.1) Total Bilirubin 0.3mg/dL (0.2-1.0) Aspartate Amino Transf (AST/SGOT) 18U/L (15-37) Alanine Aminotransferase (ALT/SGPT) 29U/L (14-59) Alkaline Phosphatase 79U/L (46-116) Total Protein 7.8g/dL (6.4-8.2) Albumin 2.5g/dL (3.4-5.0) Albumin/Globulin Ratio 0.5 (1.0-1.7) Procalcitonin < 0.10ng/mL (0.00-0.10) White Blood Count 9.4x10^3/uL (4.0-11.0) Red Blood Count 4.42x10^6/uL (3.50-5.40) Hemoglobin 12.0g/dL (12.0-15.5) Hematocrit 37.7% (36.0-47.0) Mean Corpuscular Volume 85fL (79-100) Mean Corpuscular Hemoglobin 27pg (25-35) Mean Corpuscular Hemoglobin Concent 32g/dL (31-37) Red Cell Distribution Width 15.2% (11.5-14.5) Platelet Count 353x10^3/uL (140-400) Neutrophils (%) (Auto) 65% (31-73) Lymphocytes (%) (Auto) 25% (24-48) Monocytes (%) (Auto) 8% (0-9) Eosinophils (%) (Auto) 2% (0-3) Basophils (%) (Auto) 1% (0-3) Neutrophils # (Auto) 6.1x10^3uL (1.8-7.7) Lymphocytes # (Auto) 2.3x10^3/uL (1.0-4.8) Monocytes # (Auto) 0.8x10^3/uL (0.0-1.1) Eosinophils # (Auto) 0.2x10^3/uL (0.0-0.7) Basophils # (Auto) 0.1x10^3/uL (0.0-0.2) Laboratory Tests Test 11/23/16 05:20 11/23/16 11:45 Sodium Level 142mmol/L (136-145) Potassium Level 3.6mmol/L (3.5-5.1) Chloride Level 105mmol/L (98-107) Carbon Dioxide Level 29mmol/L (21-32) Anion Gap 8 (6-14) Blood Urea Nitrogen 15mg/dL (7-20) Creatinine 0.9mg/dL (0.6-1.0) Estimated GFR (Cockcroft-Gault) 73.9 BUN/Creatinine Ratio 17 (6-20) Glucose Level 96mg/dL (70-99) Calcium Level 9.6mg/dL (8.5-10.1) Total Bilirubin 0.3mg/dL (0.2-1.0) Aspartate Amino Transf (AST/SGOT) 18U/L (15-37) Alanine Aminotransferase (ALT/SGPT) 29U/L (14-59) Alkaline Phosphatase 79U/L (46-116) Total Protein 7.8g/dL (6.4-8.2) Albumin 2.5g/dL (3.4-5.0) Albumin/Globulin Ratio 0.5 (1.0-1.7) Procalcitonin < 0.10ng/mL (0.00-0.10) White Blood Count 9.4x10^3/uL (4.0-11.0) Red Blood Count 4.42x10^6/uL (3.50-5.40) Hemoglobin 12.0g/dL (12.0-15.5) Hematocrit 37.7% (36.0-47.0) Mean Corpuscular Volume 85fL (79-100) Mean Corpuscular Hemoglobin 27pg (25-35) Mean Corpuscular Hemoglobin Concent 32g/dL (31-37) Red Cell Distribution Width 15.2% (11.5-14.5) Platelet Count 353x10^3/uL (140-400) Neutrophils (%) (Auto) 65% (31-73) Lymphocytes (%) (Auto) 25% (24-48) Monocytes (%) (Auto) 8% (0-9) Eosinophils (%) (Auto) 2% (0-3) Basophils (%) (Auto) 1% (0-3) Neutrophils # (Auto) 6.1x10^3uL (1.8-7.7) Lymphocytes # (Auto) 2.3x10^3/uL (1.0-4.8) Monocytes # (Auto) 0.8x10^3/uL (0.0-1.1) Eosinophils # (Auto) 0.2x10^3/uL (0.0-0.7) Basophils # (Auto) 0.1x10^3/uL (0.0-0.2) Microbiology 11/18/16 Blood Culture - Preliminary, Resulted NO GROWTH AFTER 4 DAYS 11/21/16 Gram Stain - Final, Complete Medications Current Medications Levofloxacin/ Dextrose 1 each 1 each PRN DAILY PRN MC SEE COMMENTS; Start at 15:15 Levofloxacin/ Dextrose 150 ml @ 100 mls/hr 1X ONCE IV Last administered on t 15:19; Start 11/18/16 at 15:45; Stop 11/18/16 at 17:14; Status DC Levofloxacin/ Dextrose (LEVAQUIN 750mg PREMIX) 150 ml @ 100 mls/hr Q48H IV Last administered on 11/22/16 16:18; Start 11/20/16 at 16:00 Ondansetron HCl (Zofran) 4 mg PRN Q6HRS PRN IV NAUSEA/VOMITING Last administered on 11/21/16 08:36; Start 11/18/16 at 15:45 Prochlorperazine Edisylate (Compazine) 10 mg PRN Q6HRS PRN IV NAUSEA/VOMITING Last administered on 11/18/16 22:29; Start 11/18/16 at 15:45 Prochlorperazine (Compazine) 25 mg PRN Q12HR PRN MN NAUSEA/VOMITING; Start 11/18 at 15:45 Al Hydroxide/Mg Hydroxide (Mylanta Plus Xs) 30 ml PRN Q3HRS PRN PO HEARTBURN / GAS; Start 11/18/16 at 15:45 Calcium Carbonate/ Glycine (Tums) 500 mg PRN Q3HRS PRN PO UPSET STOMACH; Start 11/18/16 at 15:45 Oxycodone HCl (Roxicodone) 5 mg PRN Q3HRS PRN PO BREAKTHROUGH PAIN Last administered on 11/21/16 13:38; Start 11/18/16 at 15:45 Morphine Sulfate 1 mg PRN Q2HR PRN IV SEVERE PAIN Last administered on 08:36; Start 11/18/16 at 15:45 Acetaminophen (Tylenol) 650 mg PRN Q6HRS PRN PO MILD PAIN / TEMP; Start at 15:45 Ibuprofen (Motrin) 400 mg PRN Q6HRS PRN PO MILD PAIN; Start 11/18/16 at 15:45 Docusate Sodium (Colace) 100 mg BID PO Last administered on 11/23/16 08:28; Start 11/18/16 at 21:00 Magnesium Hydroxide (Milk Of Magnesia) 2,400 mg PRN Q12HR PRN PO CONSTIPATION; Start 11/18/16 at 15:45 Lactulose 20 gm PRN Q12HR PRN PO CONSTIPATION; Start 11/18/16 at 15:45 Bisacodyl (Dulcolax Supp) 10 mg PRN DAILY PRN MN CONSTIPATION; Start 11/18/16 at 15:45 Enoxaparin Sodium (Lovenox 40mg Syringe) 40 mg Q24H SQ Last administered on 21:22; Start 11/18/16 at 21:00 Piperacillin Sod/ Tazobactam Sod (Zosyn Per Pharmacy) 1 each PRN DAILY PRN MC SEE COMMENTS; Start 11/18/16 at 15:45 Guaifenesin 10 ml 10 ml QID PO Last administered on 11/23/16 11:51; Start 11/18 at 17:00 Piperacillin Sod/ Tazobactam Sod/ Sodium Chloride (Zosyn/Iv Sodium Chloride 0.9 % 50ml) 50 ml @ 100 mls/hr Q6HRS IV Last administered on 11/23/16 11:54; Start 11/18/16 at 17:00 Alprazolam (Xanax) 0.25 mg PRN DAILY PRN PEG ANXIETY / AGITATION Last administered on 11/21/16 02:07; Start 11/18/16 at 16:00 Amlodipine Besylate (Norvasc) 5 mg DAILY PEG Last administered on 11/23/16 08: 29; Start 11/18/16 at 16:30 Atenolol (Tenormin) 50 mg DAILY PEG Last administered on 11/23/16 08:30; Start 11/18/16 at 16:30 Citalopram Hydrobromide (Celexa) 10 mg DAILY PEG Last administered on 08:28; Start 11/18/16 at 16:30 Cyproheptadine HCl (Periactin) 2 mg TID PEG Last administered on 11/23/16 12: 56; Start 11/18/16 at 21:00 Donepezil HCl (Aricept) 5 mg DAILY PEG Last administered on 11/23/16 08:28; Start 11/18/16 at 16:30 Fentanyl (Duragesic 50mcg/ Hr Patch) 1 patch Q3DAYS TD Last administered on 09:22; Start 11/19/16 at 09:00 Ondansetron HCl (Zofran Odt) 4 mg QIDPRN PRN PEG NAUSEA/VOMITING Last administered on 11/22/16 09:47; Start 11/18/16 at 16:00 Oxycodone HCl 5 mg PRN QID PRN PEG PAIN Last administered on 11/23/16 11:52; Start 11/18/16 at 16:00 Saccharomyces Boulardii (Florastor) 250 mg DAILY PEG Last administered on 08:28; Start 11/19/16 at 09:00 Albuterol Sulfate (Ventolin Neb Soln) 2.5 mg PRN Q4HRS PRN NEB SHORTNESS OF BREATH; Start 11/18/16 at 16:15 Metoclopramide HCl (Reglan) 2 mg TIDAC PO Last administered on 11/23/16 11:51 ; Start 11/18/16 at 16:30 Metoprolol Tartrate (Lopressor) 25 mg BID PO Last administered on 11/23/16 08: 29; Start 11/18/16 at 21:00 Losartan Potassium (Cozaar) 100 mg DAILY PO Last administered on 11/23/16 08: 29; Start 11/18/16 at 16:30 Albuterol/ Ipratropium 3 ml 3 ml RTQID NEB Last administered on 11/23/16 11:13 ; Start 11/18/16 at 16:30 Vancomycin HCl/ Sodium Chloride (Iv Sodium Chloride 0.9% 250ml) 250 ml @ 250 mls/hr Q24H IV ; Start 11/20/16 at 09:15; Status Cancel Vancomycin HCl 1 each 1 each PRN DAILY PRN MC SEE COMMENTS Last administered on 11/22/16 12:05; Start 11/20/16 at 09:15 Vancomycin HCl 1.5 gm/Sodium Chloride 500 ml @ 250 mls/hr 1X ONCE IV Last administered on 11/20/16 09:51; Start 11/20/16 at 10:00; Stop 11/20/16 at 11:59; Status DC Vancomycin HCl/ Sodium Chloride (Iv Sodium Chloride 0.9% 250ml) 250 ml @ 250 mls/hr Q24H IV Last administered on 11/21/16 11:24; Start 11/21/16 at 10:00; Stop 11/22/16 at 11:57; Status DC Vancomycin HCl 1 each 1 each 1X ONCE MC Last administered on 11/22/16 10:30; Start 11/22/16 at 09:30; Stop 11/22/16 at 09:31; Status DC Vancomycin HCl/ Sodium Chloride (Iv Sodium Chloride 0.9% 250ml) 250 ml @ 250 mls/hr Q12H IV Last administered on 3/12/17at 12:35; Start 11/22/16 at 12:00 Active Scripts Active Atenolol 25 Mg Tablet 50 Mg PEG DAILY Amlodipine Besylate 5 Mg Tablet 5 Mg PEG DAILY Reported Bystolic (Nebivolol) 5 Mg Tablet 5 Mg PO DAILY Sulfamethoxazole-Tmp Ds Tablet (Sulfamethoxazole/Trimethoprim) 1 Each Tablet 1 Tab PO BID Oxycodone Hcl 5 Mg/5 Ml Solution 5 Mg PEG Q 4HRS PRN PAIN PRN Aricept (Donepezil Hcl) 5 Mg Tablet 5 Mg PEG DAILY Proair Hfa Inhaler (Albuterol Sulfate) 8.5 Gm Hfa.aer.ad 2 Puff IH PRN Q4-6HRS Albuterol Sulfate Neb Soln (Albuterol Sulfate) 0.63 Mg/3 Ml Vial.neb 1 Vial NEB PRN PRN Florastor (Saccharomyces Boulardii) 250 Mg Capsule 250 Mg PEG DAILY FENTANYL 50mcg/hr (Fentanyl) 1 Each Patch.td72 1 Patch TP Q3DAYS Xanax (Alprazolam) 0.25 Mg Tablet 0.25 Mg PEG DAILY PRN Citalopram Hbr (Citalopram Hydrobromide) 10 Mg Tablet 1 Tab PEG DAILY Ondansetron Odt (Ondansetron) 4 Mg Tab.rapdis 4 Mg PEG QIDPRN PRN Metoclopramide Hcl 5 Mg/5 Ml Solution 2 Mg PEG TID Cyproheptadine Hcl 4 Mg Tablet 2 Mg PEG TID Diovan (Valsartan) 160 Mg Tablet 160 Mg PEG DAILY Vitals/I & O Vital Sign - Last 24 Hours 11/22/16 11/22/16 11/22/16 11/22/16 15:00 17:03 18:06 19:00 Temp 97.9 98.1 97.9 98.1 Pulse 69 79 Resp 22 18 B/P 136/67 123/64 Pulse Ox 95 94 94 91 O2 Delivery Nasal Cannula Nasal Cannula Nasal Cannula Nasal Cannula O2 Flow Rate 2.0 2.0 2.0 2.0 11/22/16 11/22/16 11/22/16 11/22/16 20:20 20:59 21:21 22:33 Temp 97.6 97.6 Pulse 80 79 Resp 18 B/P 139/74 139/74 Pulse Ox 99 99 O2 Delivery Nasal Cannula Nasal Cannula Nasal Cannula O2 Flow Rate 2.0 2.0 2.0 11/23/16 11/23/16 11/23/16 11/23/16 03:00 04:36 07:00 07:25 Temp 97.9 98.6 97.9 98.6 Pulse 73 105 Resp 16 22 B/P 141/76 149/75 Pulse Ox 96 92 O2 Delivery Nasal Cannula Nasal Cannula Nasal Cannula Nasal Cannula O2 Flow Rate 2.0 2.0 2.0 2.0 11/23/16 11/23/16 11/23/16 11/23/16 08:00 08:29 08:29 08:29 Pulse 105 105 105 B/P 149/75 149/75 149/75 O2 Delivery Nasal Cannula O2 Flow Rate 2.0 11/23/16 11/23/16 11/23/16 11/23/16 08:30 11:13 11:18 11:52 Pulse 105 85 Resp 18 18 B/P 149/75 O2 Delivery Nasal Cannula Nasal Cannula O2 Flow Rate 2.0 2.0 11/23/16 12:41 Resp 18 O2 Delivery Nasal Cannula O2 Flow Rate 2.0 Intake and Output 11/22/16 11/22/16 11/23/16 15:00 23:00 07:00 Intake Total 650 ml 1950 ml 0 ml Output Total 650 ml 300 ml Balance 0 ml 1650 ml 0 ml Nutrition Consultation Dietary Evaluation: Recommendations by RD: PPN/TPN Comments: continue bolus TF Expected Outcomes/Goals: to meet > 75% est nutr needs via PEG TF - met, goal on going Malnutrition Findings: Body Fat Depletion (Non Severe: Mild Depletion 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
--- NOTE | 2016-11-23 14:41 | PDOC ---
Infectious Disease Note Subjective Subjective Sleepy but awakens momentarily ROS ROS Not reliable currently - not as cooperative at the moment Has been doing well today d/w nursing Vital Sign Vital Signs Vital Signs Date Time Temp Pulse Resp B/P Pulse Ox O2 Delivery O2 Flow Rate FiO2 11/23/16 12:41 18 Nasal Cannula 2.0 11/23/16 11:18 85 11/23/16 08:30 149/75 11/23/16 07:00 98.6 92 98.6 Physical Exam PHYSICAL EXAM GENERAL: NAD, resting comfortably. Arouses but back to sleep HEENT: trach NECK: Supple, no JVD, no LN LUNGS: Clear HEART: S1S2, no gallop, no murmur ABD: Soft, NT, no organomegaly, no rebound. 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 3, no focal neurologic deficit SKIN: No rash IV: Right chest port - clean Labs Lab Laboratory Tests Test 11/23/16 05:20 11/23/16 11:45 Sodium Level 142mmol/L (136-145) Potassium Level 3.6mmol/L (3.5-5.1) Chloride Level 105mmol/L (98-107) Carbon Dioxide Level 29mmol/L (21-32) Anion Gap 8 (6-14) Blood Urea Nitrogen 15mg/dL (7-20) Creatinine 0.9mg/dL (0.6-1.0) Estimated GFR (Cockcroft-Gault) 73.9 BUN/Creatinine Ratio 17 (6-20) Glucose Level 96mg/dL (70-99) Calcium Level 9.6mg/dL (8.5-10.1) Total Bilirubin 0.3mg/dL (0.2-1.0) Aspartate Amino Transf (AST/SGOT) 18U/L (15-37) Alanine Aminotransferase (ALT/SGPT) 29U/L (14-59) Alkaline Phosphatase 79U/L (46-116) Total Protein 7.8g/dL (6.4-8.2) Albumin 2.5g/dL (3.4-5.0) Albumin/Globulin Ratio 0.5 (1.0-1.7) Procalcitonin < 0.10ng/mL (0.00-0.10) White Blood Count 9.4x10^3/uL (4.0-11.0) Red Blood Count 4.42x10^6/uL (3.50-5.40) Hemoglobin 12.0g/dL (12.0-15.5) Hematocrit 37.7% (36.0-47.0) Mean Corpuscular Volume 85fL (79-100) Mean Corpuscular Hemoglobin 27pg (25-35) Mean Corpuscular Hemoglobin Concent 32g/dL (31-37) Red Cell Distribution Width 15.2% (11.5-14.5) Platelet Count 353x10^3/uL (140-400) Neutrophils (%) (Auto) 65% (31-73) Lymphocytes (%) (Auto) 25% (24-48) Monocytes (%) (Auto) 8% (0-9) Eosinophils (%) (Auto) 2% (0-3) Basophils (%) (Auto) 1% (0-3) Neutrophils # (Auto) 6.1x10^3uL (1.8-7.7) Lymphocytes # (Auto) 2.3x10^3/uL (1.0-4.8) Monocytes # (Auto) 0.8x10^3/uL (0.0-1.1) Eosinophils # (Auto) 0.2x10^3/uL (0.0-0.7) Basophils # (Auto) 0.1x10^3/uL (0.0-0.2) Objective Assessment Leukocytosis - clinically looks ok - improved. normal Procalcitonin Pneumonia - New on left Abdominal pain -Peg. 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 Plan Plan of Care Cont Vanc, Zosyn and Levaquin for now wean soon Monitor labs and f/u cultures BMP/CBC in am GWEN MCQUEEN MD Nov 23, 2016 14:41
[2016-11-23 15:00] VITALS: BP 149/86
[2016-11-23] MEDS: VANCOMYCIN PER PHARMACY MC PRN (16:17)
--- NOTE | 2016-11-23 18:43 | CONS ---
DATE OF CONSULTATION: 11/21/2016 REFERRING PHYSICIAN: Phylicia Nina MD REASON FOR CONSULTATION: Leukocytosis and low-grade temp. HISTORY OF PRESENT ILLNESS: This patient is a 76-year-old -[place] female with history of stage III carcinoma of piriform sinus status post radiation and chemotherapy in February 2009 with local reoccurrence status post radiation and chemotherapy in 09/2015. She has a chronic tracheostomy as well as a PEG tube for nutritional support. On 11/18/2016, she presented with increased shortness of air, cough, and tracheal secretions associated with generalized malaise and weakness. She had elevated white blood cell count of 15,900 with, seg is 82% and bands 8%. Chest x-ray revealed a right lower lobe infiltrate. Influenza screen negative. No fever reported. She was admitted with pneumonia and started on vancomycin, Zosyn, and levofloxacin. Since admission, however, her white blood cell count has continued to increase. She developed a low-grade temperature of 99.3 last night. Other than feeling tired, the patient is breathing overall. She has less cough, shortness of air, and secretions. Denies headache or sinus issues. Denies chest pain. She has had some mild nausea and abdominal discomfort. Denies vomiting, diarrhea, or constipation. Denies dysuria. Denies muscle aches or joint pains. Denies rash. 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 PAST SURGICAL HISTORY: Cataract extraction, tracheostomy, neck dissection. FAMILY HISTORY: Positive for heart disease, cancer. SOCIAL HISTORY: The patient lives at home. Former smoker. She is . History of heavy alcohol use. ALLERGIES: No known drug allergies. CURRENT MEDICATIONS: Vancomycin, Zosyn, levofloxacin. Other medications are available and have been reviewed on the NOV. REVIEW OF SYSTEMS: Per HPI. PHYSICAL EXAMINATION: GENERAL: Thin -[place] female, propped up in bed, in no apparent distress. VITAL SIGNS: Temperature is 98.0, T-max 99.3, blood pressure 160/75, heart rate 78, respiratory rate 20, pulse oximetry is 94% on 2 L nasal cannula, weight is 128.19 pounds. HEENT: Pupils equally round, normal conjunctivae. Oral mucosa is pink and dry. NECK: She has tracheostomy with a cap. LUNGS: Clear to auscultation, nonlabored. HEART: Normal S1, S2. ABDOMEN: Mildly distended. Bowel sounds are present, soft, and nontender. PEG tube intact. EXTREMITIES: No gross edema or cyanosis. SKIN: Without rash. Warm to touch. NEUROLOGIC: Alert. Responds to questions appropriately. Moves all extremities. LABORATORY DATA: Today's WBC 17.6, hemoglobin 11.5, hematocrit 36.1, platelet count 319,000. Electrolytes are unremarkable. Creatinine 1.0, BUN 14, glucose 158, lactic acid 1.3, vancomycin trough 8.3. MRSA screen positive. Influenza screen negative. Recent chest x-ray shows new small left perihilar infiltrate; right basilar infiltrate have improved but not completely resolved; and stable post-treatment retrocardiac opacity and volume loss. Blood cultures negative to date. Gram-positive rods on sputum Gram stain. IMPRESSION: 1. Leukocytosis. 2. Pneumonia with new infiltrate on the left. 3. Abdominal pain. 4. Methicillin-resistant Staphylococcus aureus screen positive. 5. Chronic tracheostomy. 6. History of stage III squamous cell carcinoma of piriform sinus, status post radiation and chemotherapy. PLAN: The patient clinically looks well. Continue the vancomycin, Zosyn, and levofloxacin. Monitor laboratory values and we will follow up on cultures. Check CMP and procalcitonin in a.m. Supportive care. Thank you Dr. Nina for asking us to participate in this patient's care. Should you have further questions or concerns, please call. The patient was seen, examined, and plan of care implemented by Dr. Gwen Mcqueen. GWEN MCQUEEN MD DR: KIMMY/sena JOB#: [id number] / [id number]
[2016-11-23 19:00] VITALS: BP 165/89
[2016-11-23] MEDS: ENOXAPARIN 40 MG/0.4 ML DISP.SYRIN. SQ SCH (21:52)
[2016-11-23 23:00] VITALS: BP 181/96
[2016-11-24] MEDS: PIPERACILLIN/TAZOBACTAM 3.375 GM in IV NORMAL SALINE 50ML 50 ML IV SCH ×4 (00:38→16:58)
[2016-11-24] MEDS: VANCOMYCIN 750 MG in IV NORMAL SALINE 250ML 250 ML IV SCH (01:46)
[2016-11-24] MEDS ORDERED: BENZONATATE 100 MG CAPSULE. PO PRN (02:15)
[2016-11-24] MEDS: OXYCODONE IR 5 MG TABLET. PO PRN (02:21)
[2016-11-24 03:00] VITALS: BP 160/89
[2016-11-24 06:47] LABS: CALCIUM 9.4 mg/dL (8.5-10.1); CREATININE 0.9 mg/dL (0.6-1.0); GFR 73.9; POTASSIUM 3.9 mmol/L (3.5-5.1)
[2016-11-24 06:54] LABS: BASO % 0 % (0-3); EOS % 2 % (0-3); HEMATOCRIT 35.1 % (36.0-47.0); HEMOGLOBIN 11.2 g/dL (12.0-15.5); LYMPH % 30 % (24-48); MEAN CORPUSCULAR HEMOGLOBIN 27 pg (25-35); MEAN CORPUSCULAR HGB CONC 32 g/dL (31-37); MEAN CORPUSCULAR VOLUME 85 fL (79-100); MONO % 7 % (0-9); NEUT % 61 % (31-73); PLATELET COUNT 335 x10^3/uL (140-400); RED BLOOD COUNT 4.12 x10^6/uL (3.50-5.40); RED CELL DISTRIBUTION WIDTH 15.6 % (11.5-14.5); WHITE BLOOD COUNT 9.7 x10^3/uL (4.0-11.0)
[2016-11-24 07:00] VITALS: BP 128/72
[2016-11-24] MEDS: IPRATRPIUM/ALBUTEROL 0.5/2.5MG 3 ML NEBU. NEB SCH ×4 (07:47→19:57)
[2016-11-24] MEDS: METOCLOPRAMIDE HCL 10 MG/10 ML SOLUTION. PO SCH ×3 (09:20→16:57)
[2016-11-24] MEDS: CYPROHEPTADINE 4 MG TABLET. PEG SCH ×3 (09:21→22:14)
[2016-11-24] MEDS: DOCUSATE SODIUM 100 MG CAPSULE PO SCH ×2 (09:21→22:14)
[2016-11-24] MEDS: ATENOLOL 25 MG TABLET PEG SCH (09:21)
[2016-11-24] MEDS: DONEPEZIL HCL 5 MG TABLET. PEG SCH (09:22)
[2016-11-24] MEDS: CITALOPRAM 10 MG TABLET. PEG SCH (09:22)
[2016-11-24] MEDS: SACCHAROMYCES BOULARDII 250 MG CAPSULE. PEG SCH (09:22)
[2016-11-24] MEDS: AMLODIPINE BESYLATE 5 MG TABLET PEG SCH (09:22)
[2016-11-24] MEDS: METOPROLOL TART IMMED RELEASE 25 MG TABLET PO SCH ×2 (09:23→22:14)
[2016-11-24] MEDS: LOSARTAN POTASSIUM 50 MG TABLET. PO SCH (09:24)
[2016-11-24] MEDS: OXYCODONE 5 MG/5 ML ORAL SOLUTION. PEG PRN ×2 (09:24→14:43)
[2016-11-24] MEDS: GUAIFENESIN DM 200MG/20MG 10 ML SYRUP. PO SCH ×4 (09:24→22:14)
[2016-11-24 11:00] VITALS: BP 140/80
--- NOTE | 2016-11-24 11:48 | PDOC ---
Infectious Disease Note Subjective Subjective Doing well and wants to go home No fever. Occ nausea ROS ROS GEN: Denies fevers, chills, sweats HEENT: Denies blurred vision, sore throat CV: Denies chest pain RESP: Denies shortness of air, cough GI: Denies n/v/d NEURO: Denies confusion, dizziness MSK: Denies weakness, joint pain/swelling Vital Sign Vital Signs Vital Signs Date Time Temp Pulse Resp B/P Pulse Ox O2 Delivery O2 Flow Rate FiO2 11/24/16 11:24 Nasal Cannula 2.0 11/24/16 09:24 74 171/78 11/24/16 07:48 96 11/24/16 07:00 98.0 20 98.0 Physical Exam PHYSICAL EXAM GENERAL: NAD, Alert, coop HEENT: PERRL, OC/OP -clear NECK: Supple, no JVD, no LN, trach LUNGS: Clear HEART: S1S2, no gallop, no murmur ABD: Soft, NT, no organomegaly, no rebound. 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, no focal neurologic deficit SKIN: No rash IV: ok Labs Lab Laboratory Tests Test 11/23/16 11:45 11/24/16 06:20 White Blood Count 9.4x10^3/uL (4.0-11.0) 9.7x10^3/uL (4.0-11.0) Red Blood Count 4.42x10^6/uL (3.50-5.40) 4.12x10^6/uL (3.50-5.40) Hemoglobin 12.0g/dL (12.0-15.5) 11.2g/dL (12.0-15.5) Hematocrit 37.7% (36.0-47.0) 35.1% (36.0-47.0) Mean Corpuscular Volume 85fL (79-100) 85fL (79-100) Mean Corpuscular Hemoglobin 27pg (25-35) 27pg (25-35) Mean Corpuscular Hemoglobin Concent 32g/dL (31-37) 32g/dL (31-37) Red Cell Distribution Width 15.2% (11.5-14.5) 15.6% (11.5-14.5) Platelet Count 353x10^3/uL (140-400) 335x10^3/uL (140-400) Neutrophils (%) (Auto) 65% (31-73) 61% (31-73) Lymphocytes (%) (Auto) 25% (24-48) 30% (24-48) Monocytes (%) (Auto) 8% (0-9) 7% (0-9) Eosinophils (%) (Auto) 2% (0-3) 2% (0-3) Basophils (%) (Auto) 1% (0-3) 0% (0-3) Neutrophils # (Auto) 6.1x10^3uL (1.8-7.7) 5.9x10^3uL (1.8-7.7) Lymphocytes # (Auto) 2.3x10^3/uL (1.0-4.8) 3.0x10^3/uL (1.0-4.8) Monocytes # (Auto) 0.8x10^3/uL (0.0-1.1) 0.7x10^3/uL (0.0-1.1) Eosinophils # (Auto) 0.2x10^3/uL (0.0-0.7) 0.2x10^3/uL (0.0-0.7) Basophils # (Auto) 0.1x10^3/uL (0.0-0.2) 0.0x10^3/uL (0.0-0.2) Sodium Level 142mmol/L (136-145) Potassium Level 3.9mmol/L (3.5-5.1) Chloride Level 104mmol/L (98-107) Carbon Dioxide Level 30mmol/L (21-32) Anion Gap 8 (6-14) Blood Urea Nitrogen 12mg/dL (7-20) Creatinine 0.9mg/dL (0.6-1.0) Estimated GFR (Cockcroft-Gault) 73.9 Glucose Level 95mg/dL (70-99) Calcium Level 9.4mg/dL (8.5-10.1) Objective Assessment Leukocytosis - clinically looks ok - improved. normal Procalcitonin Pneumonia - New on left Abdominal pain -Peg. 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 Plan Plan of Care Discont Vanc Change to Levaquin/Doxy per GWEN GREGG MD Nov 24, 2016 11:48
--- NOTE | 2016-11-24 12:44 | PDOC ---
PROGRESS NOTES Chief Complaint Chief Complaint 1. CAP, bilateral 2. SIRS POA, no sepsis 3. lung cancer stage 3 N0M0, s/p radiation and chemo 4. 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 dysphagia with indwelling PEG on TF 6. mild to mod protein caloric malnutrition 7. AOCD 8. HTN 9. hx DVT 10. hx COPD< prev heavy smoker 11. 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 SW has been in to see the pt, and pt reports wanting to go home instead of going to SNU. Pt has been ambulating, according to RN. Overall, patient continues to be quite weak, but has no new complaints. WBC improved to 9.7 today. Continues to be afebrile. Tube feeding running via PEG, without any problems. Vitals Vitals Vital Signs Date Time Temp Pulse Resp B/P Pulse Ox O2 Delivery O2 Flow Rate FiO2 11/24/16 11:24 Nasal Cannula 2.0 11/24/16 11:00 97.2 69 22 140/80 96 97.2 Physical Exam General: Oriented X3, Cooperative, Other (weak) Heart: Regular rate, Normal S1 Lungs: Other (decrease bs) Abdomen: Normal bowel sounds, Soft, No tenderness, No hepatosplenomegaly, No masses, Other (indwelling PEG) Extremities: No clubbing, No cyanosis, No edema, Normal pulses, No tenderness/ swelling Skin: No rashes, No breakdown, No significant lesion Labs LABS Laboratory Tests Test 11/24/16 06:20 White Blood Count 9.7x10^3/uL (4.0-11.0) Red Blood Count 4.12x10^6/uL (3.50-5.40) Hemoglobin 11.2g/dL (12.0-15.5) Hematocrit 35.1% (36.0-47.0) Mean Corpuscular Volume 85fL (79-100) Mean Corpuscular Hemoglobin 27pg (25-35) Mean Corpuscular Hemoglobin Concent 32g/dL (31-37) Red Cell Distribution Width 15.6% (11.5-14.5) Platelet Count 335x10^3/uL (140-400) Neutrophils (%) (Auto) 61% (31-73) Lymphocytes (%) (Auto) 30% (24-48) Monocytes (%) (Auto) 7% (0-9) Eosinophils (%) (Auto) 2% (0-3) Basophils (%) (Auto) 0% (0-3) Neutrophils # (Auto) 5.9x10^3uL (1.8-7.7) Lymphocytes # (Auto) 3.0x10^3/uL (1.0-4.8) Monocytes # (Auto) 0.7x10^3/uL (0.0-1.1) Eosinophils # (Auto) 0.2x10^3/uL (0.0-0.7) Basophils # (Auto) 0.0x10^3/uL (0.0-0.2) Sodium Level 142mmol/L (136-145) Potassium Level 3.9mmol/L (3.5-5.1) Chloride Level 104mmol/L (98-107) Carbon Dioxide Level 30mmol/L (21-32) Anion Gap 8 (6-14) Blood Urea Nitrogen 12mg/dL (7-20) Creatinine 0.9mg/dL (0.6-1.0) Estimated GFR (Cockcroft-Gault) 73.9 Glucose Level 95mg/dL (70-99) Calcium Level 9.4mg/dL (8.5-10.1) Review of Systems Review of Systems denies fever, chills denies chest pain + occasional nausea Assessment and Plan Assessmemt and Plan ASSESSMENT: - CAP, bilateral - SIRS POA, no sepsis - lung cancer stage 3 N0M0, s/p radiation and chemo - laryngeal cancer currently trach in place - dysphagia with indwelling PEG on TF - mild to mod protein caloric malnutrition - AOCD - HTN - hx DVT - hx COPD< prev heavy smoker - HTN, dyslipdimeia - chronic stable - positive MRSA nares PLAN: - social work in the process of SNU vs HH; pt wanting to go home - Per ID: discontinue Vanc, change to Levaquin/Doxy per PEG - cont trach care - cont PEG feeding - cont trach suctioning PRN, bronchodilators - PTOT - appreciate subspecialist input Problems: Comment Review of Relevant I have reviewed the following items miko (where applicable) has been applied. Labs Laboratory Tests Test 11/23/16 05:20 11/23/16 11:45 11/24/16 06:20 Sodium Level 142mmol/L (136-145) 142mmol/L (136-145) Potassium Level 3.6mmol/L (3.5-5.1) 3.9mmol/L (3.5-5.1) Chloride Level 105mmol/L (98-107) 104mmol/L (98-107) Carbon Dioxide Level 29mmol/L (21-32) 30mmol/L (21-32) Anion Gap 8 (6-14) 8 (6-14) Blood Urea Nitrogen 15mg/dL (7-20) 12mg/dL (7-20) Creatinine 0.9mg/dL (0.6-1.0) 0.9mg/dL (0.6-1.0) Estimated GFR (Cockcroft-Gault) 73.9 73.9 BUN/Creatinine Ratio 17 (6-20) Glucose Level 96mg/dL (70-99) 95mg/dL (70-99) Calcium Level 9.6mg/dL (8.5-10.1) 9.4mg/dL (8.5-10.1) Total Bilirubin 0.3mg/dL (0.2-1.0) Aspartate Amino Transf (AST/SGOT) 18U/L (15-37) Alanine Aminotransferase (ALT/SGPT) 29U/L (14-59) Alkaline Phosphatase 79U/L (46-116) Total Protein 7.8g/dL (6.4-8.2) Albumin 2.5g/dL (3.4-5.0) Albumin/Globulin Ratio 0.5 (1.0-1.7) Procalcitonin < 0.10ng/mL (0.00-0.10) White Blood Count 9.4x10^3/uL (4.0-11.0) 9.7x10^3/uL (4.0-11.0) Red Blood Count 4.42x10^6/uL (3.50-5.40) 4.12x10^6/uL (3.50-5.40) Hemoglobin 12.0g/dL (12.0-15.5) 11.2g/dL (12.0-15.5) Hematocrit 37.7% (36.0-47.0) 35.1% (36.0-47.0) Mean Corpuscular Volume 85fL (79-100) 85fL (79-100) Mean Corpuscular Hemoglobin 27pg (25-35) 27pg (25-35) Mean Corpuscular Hemoglobin Concent 32g/dL (31-37) 32g/dL (31-37) Red Cell Distribution Width 15.2% (11.5-14.5) 15.6% (11.5-14.5) Platelet Count 353x10^3/uL (140-400) 335x10^3/uL (140-400) Neutrophils (%) (Auto) 65% (31-73) 61% (31-73) Lymphocytes (%) (Auto) 25% (24-48) 30% (24-48) Monocytes (%) (Auto) 8% (0-9) 7% (0-9) Eosinophils (%) (Auto) 2% (0-3) 2% (0-3) Basophils (%) (Auto) 1% (0-3) 0% (0-3) Neutrophils # (Auto) 6.1x10^3uL (1.8-7.7) 5.9x10^3uL (1.8-7.7) Lymphocytes # (Auto) 2.3x10^3/uL (1.0-4.8) 3.0x10^3/uL (1.0-4.8) Monocytes # (Auto) 0.8x10^3/uL (0.0-1.1) 0.7x10^3/uL (0.0-1.1) Eosinophils # (Auto) 0.2x10^3/uL (0.0-0.7) 0.2x10^3/uL (0.0-0.7) Basophils # (Auto) 0.1x10^3/uL (0.0-0.2) 0.0x10^3/uL (0.0-0.2) Laboratory Tests Test 11/24/16 06:20 White Blood Count 9.7x10^3/uL (4.0-11.0) Red Blood Count 4.12x10^6/uL (3.50-5.40) Hemoglobin 11.2g/dL (12.0-15.5) Hematocrit 35.1% (36.0-47.0) Mean Corpuscular Volume 85fL (79-100) Mean Corpuscular Hemoglobin 27pg (25-35) Mean Corpuscular Hemoglobin Concent 32g/dL (31-37) Red Cell Distribution Width 15.6% (11.5-14.5) Platelet Count 335x10^3/uL (140-400) Neutrophils (%) (Auto) 61% (31-73) Lymphocytes (%) (Auto) 30% (24-48) Monocytes (%) (Auto) 7% (0-9) Eosinophils (%) (Auto) 2% (0-3) Basophils (%) (Auto) 0% (0-3) Neutrophils # (Auto) 5.9x10^3uL (1.8-7.7) Lymphocytes # (Auto) 3.0x10^3/uL (1.0-4.8) Monocytes # (Auto) 0.7x10^3/uL (0.0-1.1) Eosinophils # (Auto) 0.2x10^3/uL (0.0-0.7) Basophils # (Auto) 0.0x10^3/uL (0.0-0.2) Sodium Level 142mmol/L (136-145) Potassium Level 3.9mmol/L (3.5-5.1) Chloride Level 104mmol/L (98-107) Carbon Dioxide Level 30mmol/L (21-32) Anion Gap 8 (6-14) Blood Urea Nitrogen 12mg/dL (7-20) Creatinine 0.9mg/dL (0.6-1.0) Estimated GFR (Cockcroft-Gault) 73.9 Glucose Level 95mg/dL (70-99) Calcium Level 9.4mg/dL (8.5-10.1) Microbiology 11/18/16 Blood Culture - Final, Complete NO GROWTH AFTER 5 DAYS 11/21/16 Sputum Culture - Final, Complete 11/21/16 Sputum Result 1 - Final, Complete Medications Current Medications Levofloxacin/ Dextrose 1 each 1 each PRN DAILY PRN MC SEE COMMENTS; Start at 15:15 Levofloxacin/ Dextrose 150 ml @ 100 mls/hr 1X ONCE IV Last administered on 15:19; Start 11/18/16 at 15:45; Stop 11/18/16 at 17:14; Status DC Levofloxacin/ Dextrose (LEVAQUIN 750mg PREMIX) 150 ml @ 100 mls/hr Q48H IV Last administered on 11/22/16 16:18; Start 11/20/16 at 16:00; Stop 11/24/16 at 11:47; Status DC Ondansetron HCl (Zofran) 4 mg PRN Q6HRS PRN IV NAUSEA/VOMITING Last administered on 11/21/16 08:36; Start 11/18/16 at 15:45 Prochlorperazine Edisylate (Compazine) 10 mg PRN Q6HRS PRN IV NAUSEA/VOMITING Last administered on 11/18/16 22:29; Start 11/18/16 at 15:45 Prochlorperazine (Compazine) 25 mg PRN Q12HR PRN OK NAUSEA/VOMITING; Start 11/18 at 15:45 Al Hydroxide/Mg Hydroxide (Mylanta Plus Xs) 30 ml PRN Q3HRS PRN PO HEARTBURN / GAS; Start 11/18/16 at 15:45 Calcium Carbonate/ Glycine (Tums) 500 mg PRN Q3HRS PRN PO UPSET STOMACH; Start 11/18/16 at 15:45 Oxycodone HCl (Roxicodone) 5 mg PRN Q3HRS PRN PO BREAKTHROUGH PAIN Last administered on 11/24/16 02:21; Start 11/18/16 at 15:45 Morphine Sulfate 1 mg PRN Q2HR PRN IV SEVERE PAIN Last administered on 08:36; Start 11/18/16 at 15:45 Acetaminophen (Tylenol) 650 mg PRN Q6HRS PRN PO MILD PAIN / TEMP; Start at 15:45 Ibuprofen (Motrin) 400 mg PRN Q6HRS PRN PO MILD PAIN; Start 11/18/16 at 15:45 Docusate Sodium (Colace) 100 mg BID PO Last administered on 11/24/16 09:21; Start 11/18/16 at 21:00 Magnesium Hydroxide (Milk Of Magnesia) 2,400 mg PRN Q12HR PRN PO CONSTIPATION; Start 11/18/16 at 15:45 Lactulose 20 gm PRN Q12HR PRN PO CONSTIPATION; Start 11/18/16 at 15:45 Bisacodyl (Dulcolax Supp) 10 mg PRN DAILY PRN OK CONSTIPATION; Start 11/18/16 at 15:45 Enoxaparin Sodium (Lovenox 40mg Syringe) 40 mg Q24H SQ Last administered on 21:52; Start 11/18/16 at 21:00 Piperacillin Sod/ Tazobactam Sod (Zosyn Per Pharmacy) 1 each PRN DAILY PRN MC SEE COMMENTS; Start 11/18/16 at 15:45 Guaifenesin 10 ml 10 ml QID PO Last administered on 11/24/16 09:24; Start 11/18 at 17:00 Piperacillin Sod/ Tazobactam Sod/ Sodium Chloride (Zosyn/Iv Sodium Chloride 0.9 % 50ml) 50 ml @ 100 mls/hr Q6HRS IV Last administered on 11/24/16 06:00; Start 11/18/16 at 17:00 Alprazolam (Xanax) 0.25 mg PRN DAILY PRN PEG ANXIETY / AGITATION Last administered on 11/21/16 02:07; Start 11/18/16 at 16:00 Amlodipine Besylate (Norvasc) 5 mg DAILY PEG Last administered on 11/24/16 09: 22; Start 11/18/16 at 16:30 Atenolol (Tenormin) 50 mg DAILY PEG Last administered on 11/24/16 09:21; Start 11/18/16 at 16:30 Citalopram Hydrobromide (Celexa) 10 mg DAILY PEG Last administered on 09:22; Start 11/18/16 at 16:30 Cyproheptadine HCl (Periactin) 2 mg TID PEG Last administered on 11/24/16 09: 21; Start 11/18/16 at 21:00 Donepezil HCl (Aricept) 5 mg DAILY PEG Last administered on 11/24/16 09:22; Start 11/18/16 at 16:30 Fentanyl (Duragesic 50mcg/ Hr Patch) 1 patch Q3DAYS TD Last administered on 09:22; Start 11/19/16 at 09:00 Ondansetron HCl (Zofran Odt) 4 mg QIDPRN PRN PEG NAUSEA/VOMITING Last administered on 11/22/16 09:47; Start 11/18/16 at 16:00 Oxycodone HCl 5 mg PRN QID PRN PEG PAIN Last administered on 11/24/16 09:24; Start 11/18/16 at 16:00 Saccharomyces Boulardii (Florastor) 250 mg DAILY PEG Last administered on 09:22; Start 11/19/16 at 09:00 Albuterol Sulfate (Ventolin Neb Soln) 2.5 mg PRN Q4HRS PRN NEB SHORTNESS OF BREATH; Start 11/18/16 at 16:15 Metoclopramide HCl (Reglan) 2 mg TIDAC PO Last administered on 11/24/16 09:20 ; Start 11/18/16 at 16:30 Metoprolol Tartrate (Lopressor) 25 mg BID PO Last administered on 11/24/16 09: 23; Start 11/18/16 at 21:00 Losartan Potassium (Cozaar) 100 mg DAILY PO Last administered on 11/24/16 09: 24; Start 11/18/16 at 16:30 Albuterol/ Ipratropium 3 ml 3 ml RTQID NEB Last administered on 11/24/16 11:24 ; Start 11/18/16 at 16:30 Vancomycin HCl/ Sodium Chloride (Iv Sodium Chloride 0.9% 250ml) 250 ml @ 250 mls/hr Q24H IV ; Start 11/20/16 at 09:15; Status Cancel Vancomycin HCl 1 each 1 each PRN DAILY PRN MC SEE COMMENTS Last administered on 11/23/16 16:17; Start 11/20/16 at 09:15; Stop 11/24/16 at 11:47; Status DC Vancomycin HCl 1.5 gm/Sodium Chloride 500 ml @ 250 mls/hr 1X ONCE IV Last administered on 11/20/16 09:51; Start 11/20/16 at 10:00; Stop 11/20/16 at 11:59; Status DC Vancomycin HCl/ Sodium Chloride (Iv Sodium Chloride 0.9% 250ml) 250 ml @ 250 mls/hr Q24H IV Last administered on 11/21/16 11:24; Start 11/21/16 at 10:00; Stop 11/22/16 at 11:57; Status DC Vancomycin HCl 1 each 1 each 1X ONCE MC Last administered on 11/22/16 10:30; Start 11/22/16 at 09:30; Stop 11/22/16 at 09:31; Status DC Vancomycin HCl/ Sodium Chloride (Iv Sodium Chloride 0.9% 250ml) 250 ml @ 250 mls/hr Q12H IV Last administered on 11/24/16 01:46; Start 11/22/16 at 12:00; Stop 11/24/16 at 11:47; Status DC Benzonatate (Tessalon Perle) 100 mg PRN TID PRN PO COUGH Last administered on 02:21; Start 11/24/16 at 02:15 Levofloxacin (Levaquin) 500 mg DAILY06 PEG ; Start 11/25/16 at 12:00 Doxycycline Hyclate (Vibra-Tab) 100 mg BID PEG ; Start 11/24/16 at 21:00 Active Scripts Active Atenolol 25 Mg Tablet 50 Mg PEG DAILY Amlodipine Besylate 5 Mg Tablet 5 Mg PEG DAILY Reported Bystolic (Nebivolol) 5 Mg Tablet 5 Mg PO DAILY Sulfamethoxazole-Tmp Ds Tablet (Sulfamethoxazole/Trimethoprim) 1 Each Tablet 1 Tab PO BID Oxycodone Hcl 5 Mg/5 Ml Solution 5 Mg PEG Q 4HRS PRN PAIN PRN Aricept (Donepezil Hcl) 5 Mg Tablet 5 Mg PEG DAILY Proair Hfa Inhaler (Albuterol Sulfate) 8.5 Gm Hfa.aer.ad 2 Puff IH PRN Q4-6HRS Albuterol Sulfate Neb Soln (Albuterol Sulfate) 0.63 Mg/3 Ml Vial.neb 1 Vial NEB PRN PRN Florastor (Saccharomyces Boulardii) 250 Mg Capsule 250 Mg PEG DAILY FENTANYL 50mcg/hr (Fentanyl) 1 Each Patch.td72 1 Patch TP Q3DAYS Xanax (Alprazolam) 0.25 Mg Tablet 0.25 Mg PEG DAILY PRN Citalopram Hbr (Citalopram Hydrobromide) 10 Mg Tablet 1 Tab PEG DAILY Ondansetron Odt (Ondansetron) 4 Mg Tab.rapdis 4 Mg PEG QIDPRN PRN Metoclopramide Hcl 5 Mg/5 Ml Solution 2 Mg PEG TID Cyproheptadine Hcl 4 Mg Tablet 2 Mg PEG TID Diovan (Valsartan) 160 Mg Tablet 160 Mg PEG DAILY Vitals/I & O Vital Sign - Last 24 Hours 11/23/16 11/23/16 11/23/16 11/23/16 12:41 15:00 15:08 19:00 Temp 98.4 98.6 98.4 98.6 Pulse 81 89 Resp 18 16 20 B/P 149/86 165/89 Pulse Ox 94 91 O2 Delivery Nasal Cannula Nasal Cannula Tracheal Collar O2 Flow Rate 2.0 2.0 11/23/16 11/23/16 11/23/16 11/23/16 19:19 20:00 21:50 21:53 Pulse 81 B/P 163/86 O2 Delivery Nasal Cannula Nasal Cannula Nasal Cannula O2 Flow Rate 2.0 2.0 2.0 11/23/16 11/23/16 11/24/16 11/24/16 22:53 23:00 02:21 03:00 Temp 98.6 98.6 98.6 98.6 Pulse 93 78 Resp 20 18 B/P 181/96 160/89 Pulse Ox 91 92 O2 Delivery Nasal Cannula Tracheal Collar Nasal Cannula Room Air O2 Flow Rate 2.0 2.0 2.0 11/24/16 11/24/16 11/24/16 11/24/16 07:00 07:48 08:00 09:21 Temp 98.0 98.0 Pulse 74 74 Resp 20 B/P 128/72 171/78 Pulse Ox 98 96 O2 Delivery Room Air Nasal Cannula Nasal Cannula O2 Flow Rate 2.0 2.0 11/24/16 11/24/16 11/24/16 11/24/16 09:22 09:23 09:24 11:00 Temp 97.2 97.2 Pulse 74 74 74 69 Resp 22 B/P 171/78 171/18 171/78 140/80 Pulse Ox 96 O2 Delivery Room Air O2 Flow Rate 2.0 11/24/16 11:24 O2 Delivery Nasal Cannula O2 Flow Rate 2.0 Intake and Output 11/23/16 11/23/16 11/24/16 15:00 23:00 07:00 Intake Total 825 ml 1115 ml 600 ml Output Total 400 ml Balance 825 ml 715 ml 600 ml Nutrition Consultation Dietary Evaluation: Recommendations by RD: PPN/TPN Comments: continue bolus TF Expected Outcomes/Goals: to meet > 75% est nutr needs via PEG TF - met, goal on going Malnutrition Findings: Body Fat Depletion (Non Severe: Mild Depletion Reduced Fixture Maker Strength: N/A Weight Status: Appropriate Fluid Accumulation (N/A): N/A SAMMY WILEY III DO Nov 24, 2016 12:44
[2016-11-24 15:00] VITALS: BP 136/86
--- NOTE | 2016-11-24 15:48 | PDOC ---
PULMONARY PROGRESS NOTES Subjective no soa Vitals Vital Signs Date Time Temp Pulse Resp B/P Pulse Ox O2 Delivery O2 Flow Rate FiO2 11/24/16 11:24 Nasal Cannula 2.0 11/24/16 11:00 97.2 69 22 140/80 96 97.2 General: Alert, No acute distress Lungs: Other (decrease bs) Cardiovascular: S1, S2 Abdomen: Soft, Non-tender, Other Neuro Exam: Alert Extremities: No Edema Skin: Warm Labs Laboratory Tests Test 11/23/16 05:20 11/23/16 11:45 11/24/16 06:20 Sodium Level 142mmol/L (136-145) 142mmol/L (136-145) Potassium Level 3.6mmol/L (3.5-5.1) 3.9mmol/L (3.5-5.1) Chloride Level 105mmol/L (98-107) 104mmol/L (98-107) Carbon Dioxide Level 29mmol/L (21-32) 30mmol/L (21-32) Anion Gap 8 (6-14) 8 (6-14) Blood Urea Nitrogen 15mg/dL (7-20) 12mg/dL (7-20) Creatinine 0.9mg/dL (0.6-1.0) 0.9mg/dL (0.6-1.0) Estimated GFR (Cockcroft-Gault) 73.9 73.9 BUN/Creatinine Ratio 17 (6-20) Glucose Level 96mg/dL (70-99) 95mg/dL (70-99) Calcium Level 9.6mg/dL (8.5-10.1) 9.4mg/dL (8.5-10.1) Total Bilirubin 0.3mg/dL (0.2-1.0) Aspartate Amino Transf (AST/SGOT) 18U/L (15-37) Alanine Aminotransferase (ALT/SGPT) 29U/L (14-59) Alkaline Phosphatase 79U/L (46-116) Total Protein 7.8g/dL (6.4-8.2) Albumin 2.5g/dL (3.4-5.0) Albumin/Globulin Ratio 0.5 (1.0-1.7) Procalcitonin < 0.10ng/mL (0.00-0.10) White Blood Count 9.4x10^3/uL (4.0-11.0) 9.7x10^3/uL (4.0-11.0) Red Blood Count 4.42x10^6/uL (3.50-5.40) 4.12x10^6/uL (3.50-5.40) Hemoglobin 12.0g/dL (12.0-15.5) 11.2g/dL (12.0-15.5) Hematocrit 37.7% (36.0-47.0) 35.1% (36.0-47.0) Mean Corpuscular Volume 85fL (79-100) 85fL (79-100) Mean Corpuscular Hemoglobin 27pg (25-35) 27pg (25-35) Mean Corpuscular Hemoglobin Concent 32g/dL (31-37) 32g/dL (31-37) Red Cell Distribution Width 15.2% (11.5-14.5) 15.6% (11.5-14.5) Platelet Count 353x10^3/uL (140-400) 335x10^3/uL (140-400) Neutrophils (%) (Auto) 65% (31-73) 61% (31-73) Lymphocytes (%) (Auto) 25% (24-48) 30% (24-48) Monocytes (%) (Auto) 8% (0-9) 7% (0-9) Eosinophils (%) (Auto) 2% (0-3) 2% (0-3) Basophils (%) (Auto) 1% (0-3) 0% (0-3) Neutrophils # (Auto) 6.1x10^3uL (1.8-7.7) 5.9x10^3uL (1.8-7.7) Lymphocytes # (Auto) 2.3x10^3/uL (1.0-4.8) 3.0x10^3/uL (1.0-4.8) Monocytes # (Auto) 0.8x10^3/uL (0.0-1.1) 0.7x10^3/uL (0.0-1.1) Eosinophils # (Auto) 0.2x10^3/uL (0.0-0.7) 0.2x10^3/uL (0.0-0.7) Basophils # (Auto) 0.1x10^3/uL (0.0-0.2) 0.0x10^3/uL (0.0-0.2) Laboratory Tests Test 11/24/16 06:20 White Blood Count 9.7x10^3/uL (4.0-11.0) Red Blood Count 4.12x10^6/uL (3.50-5.40) Hemoglobin 11.2g/dL (12.0-15.5) Hematocrit 35.1% (36.0-47.0) Mean Corpuscular Volume 85fL (79-100) Mean Corpuscular Hemoglobin 27pg (25-35) Mean Corpuscular Hemoglobin Concent 32g/dL (31-37) Red Cell Distribution Width 15.6% (11.5-14.5) Platelet Count 335x10^3/uL (140-400) Neutrophils (%) (Auto) 61% (31-73) Lymphocytes (%) (Auto) 30% (24-48) Monocytes (%) (Auto) 7% (0-9) Eosinophils (%) (Auto) 2% (0-3) Basophils (%) (Auto) 0% (0-3) Neutrophils # (Auto) 5.9x10^3uL (1.8-7.7) Lymphocytes # (Auto) 3.0x10^3/uL (1.0-4.8) Monocytes # (Auto) 0.7x10^3/uL (0.0-1.1) Eosinophils # (Auto) 0.2x10^3/uL (0.0-0.7) Basophils # (Auto) 0.0x10^3/uL (0.0-0.2) Sodium Level 142mmol/L (136-145) Potassium Level 3.9mmol/L (3.5-5.1) Chloride Level 104mmol/L (98-107) Carbon Dioxide Level 30mmol/L (21-32) Anion Gap 8 (6-14) Blood Urea Nitrogen 12mg/dL (7-20) Creatinine 0.9mg/dL (0.6-1.0) Estimated GFR (Cockcroft-Gault) 73.9 Glucose Level 95mg/dL (70-99) Calcium Level 9.4mg/dL (8.5-10.1) Medications Active Scripts Medications Dose Route/Sig Days Date Category Bystolic (Nebivolol) 5 Mg Tablet 5 Mg PO DAILY 09/17/16 Reported Atenolol 25 Mg Tablet 50 Mg PEG DAILY 06/05/16 Rx Amlodipine Besylate 5 Mg Tablet 5 Mg PEG DAILY 06/05/16 Rx Sulfamethoxazole-Tmp Ds Tablet (Sulfamethoxazole/Trimethoprim) 1 Each Tablet 1 Tab PO BID 06/02/16 Reported Oxycodone Hcl 5 Mg/5 Ml Solution 5 Mg PEG Q 4HRS PRN PAIN PRN 09/10/15 Reported Aricept (Donepezil Hcl) 5 Mg Tablet 5 Mg PEG DAILY 08/16/15 Reported Proair Hfa Inhaler (Albuterol Sulfate) 8.5 Gm Hfa.aer.ad 2 Puff IH PRN Q4-6HRS 08/16/15 Reported Albuterol Sulfate Neb Soln (Albuterol Sulfate) 0.63 Mg/3 Ml Vial.neb 1 Vial NEB PRN PRN 06/19/14 Reported Florastor (Saccharomyces Boulardii) 250 Mg Capsule 250 Mg PEG DAILY 06/19/14 Reported FENTANYL 50mcg/hr (Fentanyl) 1 Each Patch.td72 1 Patch TP Q3DAYS 06/19/14 Reported Xanax (Alprazolam) 0.25 Mg Tablet 0.25 Mg PEG DAILY PRN 06/19/14 Reported Citalopram Hbr (Citalopram Hydrobromide) 10 Mg Tablet 1 Tab PEG DAILY 06/19/14 Reported Ondansetron Odt (Ondansetron) 4 Mg Tab.rapdis 4 Mg PEG QIDPRN PRN 06/19/14 Reported Metoclopramide Hcl 5 Mg/5 Ml Solution 2 Mg PEG TID 12/02/13 Reported Cyproheptadine Hcl 4 Mg Tablet 2 Mg PEG TID 12/02/13 Reported Diovan (Valsartan) 160 Mg Tablet 160 Mg PEG DAILY 12/02/13 Reported Impression . 1. Community-acquired right lower lobe pneumonia. 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 I suspect gram-negative pneumonia. 2. 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 Subsequently, she underwent tracheostomy and receive more radiation treatment. 3. 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 Plan . slowly improving continue the same 1. Continue with present broad-spectrum antibiotics per ID 2. repeat trach secretions./ culture normal jewell 3. Continue with bronchodilators. 4. DVT prophylaxis with Lovenox. 5. P.r.n. pain medication. 6. Trach suctioning p.r.n. 7. CXR 11/21 improving RLL infiltrates ANURAG LOO MD Nov 24, 2016 15:48
[2016-11-24] MEDS: ONDANSETRON PF 4 MG/2 ML VIAL. IV PRN (18:02)
[2016-11-24 19:00] VITALS: BP 171/90
[2016-11-24] MEDS: DOXYCYCLINE HYCLATE 100 MG TABLET PEG SCH (22:14)
[2016-11-24] MEDS: ENOXAPARIN 40 MG/0.4 ML DISP.SYRIN. SQ SCH (22:15)
[2016-11-24 23:00] VITALS: BP 163/81
[2016-11-25] MEDS: PIPERACILLIN/TAZOBACTAM 3.375 GM in IV NORMAL SALINE 50ML 50 ML IV SCH ×3 (00:12→12:57)
[2016-11-25] MEDS: OXYCODONE 5 MG/5 ML ORAL SOLUTION. PEG PRN ×2 (00:12→07:56)
[2016-11-25] MEDS: ONDANSETRON PF 4 MG/2 ML VIAL. IV PRN (00:23)
[2016-11-25 03:00] VITALS: BP 168/90
[2016-11-25 05:27] LABS: BASO # 0.1 x10^3/uL (0.0-0.2); BASO % 1 % (0-3); EOS % 3 % (0-3); HEMATOCRIT 36.1 % (36.0-47.0); HEMOGLOBIN 11.5 g/dL (12.0-15.5); LYMPH # 2.6 x10^3/uL (1.0-4.8); LYMPH % 29 % (24-48); MEAN CORPUSCULAR HEMOGLOBIN 27 pg (25-35); MEAN CORPUSCULAR HGB CONC 32 g/dL (31-37); MEAN CORPUSCULAR VOLUME 85 fL (79-100); MONO % 7 % (0-9); NEUT % 60 % (31-73); PLATELET COUNT 340 x10^3/uL (140-400); RED BLOOD COUNT 4.24 x10^6/uL (3.50-5.40); RED CELL DISTRIBUTION WIDTH 15.2 % (11.5-14.5)
[2016-11-25 05:44] LABS: CALCIUM 9.5 mg/dL (8.5-10.1); CREATININE 0.8 mg/dL (0.6-1.0); GFR 84.6; POTASSIUM 3.7 mmol/L (3.5-5.1)
[2016-11-25] MEDS: METOCLOPRAMIDE HCL 10 MG/10 ML SOLUTION. PO SCH ×2 (06:24→12:57)
[2016-11-25 07:00] VITALS: BP 122/70
[2016-11-25] MEDS: GUAIFENESIN DM 200MG/20MG 10 ML SYRUP. PO SCH ×2 (07:52→12:57)
[2016-11-25] MEDS: LOSARTAN POTASSIUM 50 MG TABLET. PO SCH (07:53)
[2016-11-25] MEDS: DOXYCYCLINE HYCLATE 100 MG TABLET PEG SCH (07:53)
[2016-11-25] MEDS: DOCUSATE SODIUM 100 MG CAPSULE PO SCH (07:53)
[2016-11-25] MEDS: AMLODIPINE BESYLATE 5 MG TABLET PEG SCH (07:53)
[2016-11-25] MEDS: METOPROLOL TART IMMED RELEASE 25 MG TABLET PO SCH (07:54)
[2016-11-25] MEDS: CITALOPRAM 10 MG TABLET. PEG SCH (07:55)
[2016-11-25] MEDS: SACCHAROMYCES BOULARDII 250 MG CAPSULE. PEG SCH (07:55)
[2016-11-25] MEDS: ATENOLOL 25 MG TABLET PEG SCH (07:55)
[2016-11-25] MEDS: DONEPEZIL HCL 5 MG TABLET. PEG SCH (07:55)
[2016-11-25] MEDS: CYPROHEPTADINE 4 MG TABLET. PEG SCH (07:55)
[2016-11-25] MEDS: FENTANYL 50MCG/HR PATCH. TD SCH (07:56)
[2016-11-25] MEDS: IPRATRPIUM/ALBUTEROL 0.5/2.5MG 3 ML NEBU. NEB SCH ×2 (08:31→11:19)
--- NOTE | 2016-11-25 09:50 | PDOC ---
PULMONARY PROGRESS NOTES Subjective no soa Vitals Vital Signs Date Time Temp Pulse Resp B/P Pulse Ox O2 Delivery O2 Flow Rate FiO2 11/25/16 08:34 100 Nasal Cannula 2.0 11/25/16 07:55 72 122/70 11/25/16 07:00 98.3 16 98.3 General: Alert, No acute distress Lungs: Other (decrease bs) Cardiovascular: S1, S2 Abdomen: Soft, Non-tender, Other Neuro Exam: Alert Extremities: No Edema Skin: Warm Labs Laboratory Tests Test 11/23/16 11:45 11/24/16 06:20 11/25/16 05:20 White Blood Count 9.4x10^3/uL (4.0-11.0) 9.7x10^3/uL (4.0-11.0) 9.0x10^3/uL (4.0-11.0) Red Blood Count 4.42x10^6/uL (3.50-5.40) 4.12x10^6/uL (3.50-5.40) 4.24x10^6/uL (3.50-5.40) Hemoglobin 12.0g/dL (12.0-15.5) 11.2g/dL (12.0-15.5) 11.5g/dL (12.0-15.5) Hematocrit 37.7% (36.0-47.0) 35.1% (36.0-47.0) 36.1% (36.0-47.0) Mean Corpuscular Volume 85fL (79-100) 85fL (79-100) 85fL (79-100) Mean Corpuscular Hemoglobin 27pg (25-35) 27pg (25-35) 27pg (25-35) Mean Corpuscular Hemoglobin Concent 32g/dL (31-37) 32g/dL (31-37) 32g/dL (31-37) Red Cell Distribution Width 15.2% (11.5-14.5) 15.6% (11.5-14.5) 15.2% (11.5-14.5) Platelet Count 353x10^3/uL (140-400) 335x10^3/uL (140-400) 340x10^3/uL (140-400) Neutrophils (%) (Auto) 65% (31-73) 61% (31-73) 60% (31-73) Lymphocytes (%) (Auto) 25% (24-48) 30% (24-48) 29% (24-48) Monocytes (%) (Auto) 8% (0-9) 7% (0-9) 7% (0-9) Eosinophils (%) (Auto) 2% (0-3) 2% (0-3) 3% (0-3) Basophils (%) (Auto) 1% (0-3) 0% (0-3) 1% (0-3) Neutrophils # (Auto) 6.1x10^3uL (1.8-7.7) 5.9x10^3uL (1.8-7.7) 5.4x10^3uL (1.8-7.7) Lymphocytes # (Auto) 2.3x10^3/uL (1.0-4.8) 3.0x10^3/uL (1.0-4.8) 2.6x10^3/uL (1.0-4.8) Monocytes # (Auto) 0.8x10^3/uL (0.0-1.1) 0.7x10^3/uL (0.0-1.1) 0.7x10^3/uL (0.0-1.1) Eosinophils # (Auto) 0.2x10^3/uL (0.0-0.7) 0.2x10^3/uL (0.0-0.7) 0.3x10^3/uL (0.0-0.7) Basophils # (Auto) 0.1x10^3/uL (0.0-0.2) 0.0x10^3/uL (0.0-0.2) 0.1x10^3/uL (0.0-0.2) Sodium Level 142mmol/L (136-145) 142mmol/L (136-145) Potassium Level 3.9mmol/L (3.5-5.1) 3.7mmol/L (3.5-5.1) Chloride Level 104mmol/L (98-107) 103mmol/L (98-107) Carbon Dioxide Level 30mmol/L (21-32) 31mmol/L (21-32) Anion Gap 8 (6-14) 8 (6-14) Blood Urea Nitrogen 12mg/dL (7-20) 12mg/dL (7-20) Creatinine 0.9mg/dL (0.6-1.0) 0.8mg/dL (0.6-1.0) Estimated GFR (Cockcroft-Gault) 73.9 84.6 Glucose Level 95mg/dL (70-99) 96mg/dL (70-99) Calcium Level 9.4mg/dL (8.5-10.1) 9.5mg/dL (8.5-10.1) Laboratory Tests Test 11/25/16 05:20 White Blood Count 9.0x10^3/uL (4.0-11.0) Red Blood Count 4.24x10^6/uL (3.50-5.40) Hemoglobin 11.5g/dL (12.0-15.5) Hematocrit 36.1% (36.0-47.0) Mean Corpuscular Volume 85fL (79-100) Mean Corpuscular Hemoglobin 27pg (25-35) Mean Corpuscular Hemoglobin Concent 32g/dL (31-37) Red Cell Distribution Width 15.2% (11.5-14.5) Platelet Count 340x10^3/uL (140-400) Neutrophils (%) (Auto) 60% (31-73) Lymphocytes (%) (Auto) 29% (24-48) Monocytes (%) (Auto) 7% (0-9) Eosinophils (%) (Auto) 3% (0-3) Basophils (%) (Auto) 1% (0-3) Neutrophils # (Auto) 5.4x10^3uL (1.8-7.7) Lymphocytes # (Auto) 2.6x10^3/uL (1.0-4.8) Monocytes # (Auto) 0.7x10^3/uL (0.0-1.1) Eosinophils # (Auto) 0.3x10^3/uL (0.0-0.7) Basophils # (Auto) 0.1x10^3/uL (0.0-0.2) Sodium Level 142mmol/L (136-145) Potassium Level 3.7mmol/L (3.5-5.1) Chloride Level 103mmol/L (98-107) Carbon Dioxide Level 31mmol/L (21-32) Anion Gap 8 (6-14) Blood Urea Nitrogen 12mg/dL (7-20) Creatinine 0.8mg/dL (0.6-1.0) Estimated GFR (Cockcroft-Gault) 84.6 Glucose Level 96mg/dL (70-99) Calcium Level 9.5mg/dL (8.5-10.1) Medications Active Scripts Medications Dose Route/Sig Days Date Category Bystolic (Nebivolol) 5 Mg Tablet 5 Mg PO DAILY 09/17/16 Reported Atenolol 25 Mg Tablet 50 Mg PEG DAILY 06/05/16 Rx Amlodipine Besylate 5 Mg Tablet 5 Mg PEG DAILY 06/05/16 Rx Sulfamethoxazole-Tmp Ds Tablet (Sulfamethoxazole/Trimethoprim) 1 Each Tablet 1 Tab PO BID 06/02/16 Reported Oxycodone Hcl 5 Mg/5 Ml Solution 5 Mg PEG Q 4HRS PRN PAIN PRN 09/10/15 Reported Aricept (Donepezil Hcl) 5 Mg Tablet 5 Mg PEG DAILY 08/16/15 Reported Proair Hfa Inhaler (Albuterol Sulfate) 8.5 Gm Hfa.aer.ad 2 Puff IH PRN Q4-6HRS 08/16/15 Reported Albuterol Sulfate Neb Soln (Albuterol Sulfate) 0.63 Mg/3 Ml Vial.neb 1 Vial NEB PRN PRN 06/19/14 Reported Florastor (Saccharomyces Boulardii) 250 Mg Capsule 250 Mg PEG DAILY 06/19/14 Reported FENTANYL 50mcg/hr (Fentanyl) 1 Each Patch.td72 1 Patch TP Q3DAYS 06/19/14 Reported Xanax (Alprazolam) 0.25 Mg Tablet 0.25 Mg PEG DAILY PRN 06/19/14 Reported Citalopram Hbr (Citalopram Hydrobromide) 10 Mg Tablet 1 Tab PEG DAILY 06/19/14 Reported Ondansetron Odt (Ondansetron) 4 Mg Tab.rapdis 4 Mg PEG QIDPRN PRN 06/19/14 Reported Metoclopramide Hcl 5 Mg/5 Ml Solution 2 Mg PEG TID 12/02/13 Reported Cyproheptadine Hcl 4 Mg Tablet 2 Mg PEG TID 12/02/13 Reported Diovan (Valsartan) 160 Mg Tablet 160 Mg PEG DAILY 12/02/13 Reported Impression . 1. Community-acquired right lower lobe pneumonia. 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 I suspect gram-negative pneumonia. 2. 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 Subsequently, she underwent tracheostomy and receive more radiation treatment. 3. 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 Plan . slowly improving continue the same 1. Continue with present broad-spectrum antibiotics per ID 2. repeat trach secretions./ culture normal jewell 3. Continue with bronchodilators. 4. DVT prophylaxis with Lovenox. 5. P.r.n. pain medication. 6. Trach suctioning p.r.n. 7. CXR 11/21 improving RLL infiltrates ANURAG LOO MD Nov 25, 2016 09:50
--- NOTE | 2016-11-25 10:12 | PDOC ---
Infectious Disease Note Subjective Subjective Doing well and wants to go home No fever. no nausea ROS ROS GEN: Denies fevers, chills, sweats HEENT: Denies blurred vision, sore throat CV: Denies chest pain RESP: Denies shortness of air, cough GI: Denies n/v/d NEURO: Denies confusion, dizziness MSK: Denies weakness, joint pain/swelling Vital Sign Vital Signs Vital Signs Date Time Temp Pulse Resp B/P Pulse Ox O2 Delivery O2 Flow Rate FiO2 11/25/16 08:34 100 Nasal Cannula 2.0 11/25/16 07:55 72 122/70 11/25/16 07:00 98.3 16 98.3 Physical Exam PHYSICAL EXAM GENERAL: NAD, Alert, coop HEENT: PERRL, OC/OP -clear NECK: Supple, no JVD, no LN, trach LUNGS: Clear HEART: S1S2, no gallop, no murmur ABD: Soft, NT, no organomegaly, no rebound. PEG clean EXT: No edema, no cyanosis [employer]: Alert, oriented x 3, no focal neurologic deficit SKIN: No rash IV: ok Labs Lab Laboratory Tests Test 11/25/16 05:20 White Blood Count 9.0x10^3/uL (4.0-11.0) Red Blood Count 4.24x10^6/uL (3.50-5.40) Hemoglobin 11.5g/dL (12.0-15.5) Hematocrit 36.1% (36.0-47.0) Mean Corpuscular Volume 85fL (79-100) Mean Corpuscular Hemoglobin 27pg (25-35) Mean Corpuscular Hemoglobin Concent 32g/dL (31-37) Red Cell Distribution Width 15.2% (11.5-14.5) Platelet Count 340x10^3/uL (140-400) Neutrophils (%) (Auto) 60% (31-73) Lymphocytes (%) (Auto) 29% (24-48) Monocytes (%) (Auto) 7% (0-9) Eosinophils (%) (Auto) 3% (0-3) Basophils (%) (Auto) 1% (0-3) Neutrophils # (Auto) 5.4x10^3uL (1.8-7.7) Lymphocytes # (Auto) 2.6x10^3/uL (1.0-4.8) Monocytes # (Auto) 0.7x10^3/uL (0.0-1.1) Eosinophils # (Auto) 0.3x10^3/uL (0.0-0.7) Basophils # (Auto) 0.1x10^3/uL (0.0-0.2) Sodium Level 142mmol/L (136-145) Potassium Level 3.7mmol/L (3.5-5.1) Chloride Level 103mmol/L (98-107) Carbon Dioxide Level 31mmol/L (21-32) Anion Gap 8 (6-14) Blood Urea Nitrogen 12mg/dL (7-20) Creatinine 0.8mg/dL (0.6-1.0) Estimated GFR (Cockcroft-Gault) 84.6 Glucose Level 96mg/dL (70-99) Calcium Level 9.5mg/dL (8.5-10.1) Objective Assessment Leukocytosis - clinically looks ok - improved. normal Procalcitonin Pneumonia - New on left Abdominal pain -Peg. 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 Plan Plan of Group Home on Levaquin/Doxy per PEG for 5 days ok Ok to d/c home GWEN MCQUEEN MD Nov 25, 2016 10:12
[2016-11-25 11:02] VITALS: BP 130/69
--- NOTE | 2016-11-25 11:13 | PDOC ---
PROGRESS NOTES Chief Complaint Chief Complaint 1. CAP, bilateral 2. SIRS POA, no sepsis 3. lung cancer stage 3 N0M0, s/p radiation and chemo 4. 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 dysphagia with indwelling PEG on TF 6. mild to mod protein caloric malnutrition 7. AOCD 8. HTN 9. hx DVT 10. hx COPD< prev heavy smoker 11. 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 Patient reports she is feeling well and continues to state she wants to go home. She is still slightly fatigued but overall is improving. PT/OT evaluated patient and recommended home with home health. Vitals Vitals Vital Signs Date Time Temp Pulse Resp B/P Pulse Ox O2 Delivery O2 Flow Rate FiO2 11/25/16 11:02 97.4 70 14 130/69 98 Nasal Cannula 2.0 97.4 Physical Exam General: Oriented X3, Cooperative, Other (mild fatigue) Heart: Regular rate, Normal S1 Lungs: Clear, Other (decreased breath sounds bilaterally ) Abdomen: Soft, No tenderness, Other (PEG in place without surrounding erythema) Extremities: No cyanosis, No edema Skin: No breakdown, No significant lesion Labs LABS Laboratory Tests Test 11/25/16 05:20 White Blood Count 9.0x10^3/uL (4.0-11.0) Red Blood Count 4.24x10^6/uL (3.50-5.40) Hemoglobin 11.5g/dL (12.0-15.5) Hematocrit 36.1% (36.0-47.0) Mean Corpuscular Volume 85fL (79-100) Mean Corpuscular Hemoglobin 27pg (25-35) Mean Corpuscular Hemoglobin Concent 32g/dL (31-37) Red Cell Distribution Width 15.2% (11.5-14.5) Platelet Count 340x10^3/uL (140-400) Neutrophils (%) (Auto) 60% (31-73) Lymphocytes (%) (Auto) 29% (24-48) Monocytes (%) (Auto) 7% (0-9) Eosinophils (%) (Auto) 3% (0-3) Basophils (%) (Auto) 1% (0-3) Neutrophils # (Auto) 5.4x10^3uL (1.8-7.7) Lymphocytes # (Auto) 2.6x10^3/uL (1.0-4.8) Monocytes # (Auto) 0.7x10^3/uL (0.0-1.1) Eosinophils # (Auto) 0.3x10^3/uL (0.0-0.7) Basophils # (Auto) 0.1x10^3/uL (0.0-0.2) Sodium Level 142mmol/L (136-145) Potassium Level 3.7mmol/L (3.5-5.1) Chloride Level 103mmol/L (98-107) Carbon Dioxide Level 31mmol/L (21-32) Anion Gap 8 (6-14) Blood Urea Nitrogen 12mg/dL (7-20) Creatinine 0.8mg/dL (0.6-1.0) Estimated GFR (Cockcroft-Gault) 84.6 Glucose Level 96mg/dL (70-99) Calcium Level 9.5mg/dL (8.5-10.1) Review of Systems Review of Systems Patient denies shortness of breath. Denies chest pain. Denies fever and chills. Reports she is feeling better. Assessment and Plan Assessmemt and Plan Problems Medical Problems: (1) CAP (community acquired pneumonia) Status: Acute (2) CAP (community acquired pneumonia) Status: Acute ASSESSMENT: 1. CAP, bilateral 2. SIRS POA, no sepsis 3. lung cancer stage 3 N0M0, s/p radiation and chemo 4. 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 dysphagia with indwelling PEG on TF 6. mild to mod protein caloric malnutrition 7. AOCD 8. HTN 9. hx DVT 10. hx COPD< prev heavy smoker 11. 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 Labs Laboratory Tests Test 11/23/16 11:45 11/24/16 06:20 11/25/16 05:20 White Blood Count 9.4x10^3/uL (4.0-11.0) 9.7x10^3/uL (4.0-11.0) 9.0x10^3/uL (4.0-11.0) Red Blood Count 4.42x10^6/uL (3.50-5.40) 4.12x10^6/uL (3.50-5.40) 4.24x10^6/uL (3.50-5.40) Hemoglobin 12.0g/dL (12.0-15.5) 11.2g/dL (12.0-15.5) 11.5g/dL (12.0-15.5) Hematocrit 37.7% (36.0-47.0) 35.1% (36.0-47.0) 36.1% (36.0-47.0) Mean Corpuscular Volume 85fL (79-100) 85fL (79-100) 85fL (79-100) Mean Corpuscular Hemoglobin 27pg (25-35) 27pg (25-35) 27pg (25-35) Mean Corpuscular Hemoglobin Concent 32g/dL (31-37) 32g/dL (31-37) 32g/dL (31-37) Red Cell Distribution Width 15.2% (11.5-14.5) 15.6% (11.5-14.5) 15.2% (11.5-14.5) Platelet Count 353x10^3/uL (140-400) 335x10^3/uL (140-400) 340x10^3/uL (140-400) Neutrophils (%) (Auto) 65% (31-73) 61% (31-73) 60% (31-73) Lymphocytes (%) (Auto) 25% (24-48) 30% (24-48) 29% (24-48) Monocytes (%) (Auto) 8% (0-9) 7% (0-9) 7% (0-9) Eosinophils (%) (Auto) 2% (0-3) 2% (0-3) 3% (0-3) Basophils (%) (Auto) 1% (0-3) 0% (0-3) 1% (0-3) Neutrophils # (Auto) 6.1x10^3uL (1.8-7.7) 5.9x10^3uL (1.8-7.7) 5.4x10^3uL (1.8-7.7) Lymphocytes # (Auto) 2.3x10^3/uL (1.0-4.8) 3.0x10^3/uL (1.0-4.8) 2.6x10^3/uL (1.0-4.8) Monocytes # (Auto) 0.8x10^3/uL (0.0-1.1) 0.7x10^3/uL (0.0-1.1) 0.7x10^3/uL (0.0-1.1) Eosinophils # (Auto) 0.2x10^3/uL (0.0-0.7) 0.2x10^3/uL (0.0-0.7) 0.3x10^3/uL (0.0-0.7) Basophils # (Auto) 0.1x10^3/uL (0.0-0.2) 0.0x10^3/uL (0.0-0.2) 0.1x10^3/uL (0.0-0.2) Sodium Level 142mmol/L (136-145) 142mmol/L (136-145) Potassium Level 3.9mmol/L (3.5-5.1) 3.7mmol/L (3.5-5.1) Chloride Level 104mmol/L (98-107) 103mmol/L (98-107) Carbon Dioxide Level 30mmol/L (21-32) 31mmol/L (21-32) Anion Gap 8 (6-14) 8 (6-14) Blood Urea Nitrogen 12mg/dL (7-20) 12mg/dL (7-20) Creatinine 0.9mg/dL (0.6-1.0) 0.8mg/dL (0.6-1.0) Estimated GFR (Cockcroft-Gault) 73.9 84.6 Glucose Level 95mg/dL (70-99) 96mg/dL (70-99) Calcium Level 9.4mg/dL (8.5-10.1) 9.5mg/dL (8.5-10.1) Laboratory Tests Test 11/25/16 05:20 White Blood Count 9.0x10^3/uL (4.0-11.0) Red Blood Count 4.24x10^6/uL (3.50-5.40) Hemoglobin 11.5g/dL (12.0-15.5) Hematocrit 36.1% (36.0-47.0) Mean Corpuscular Volume 85fL (79-100) Mean Corpuscular Hemoglobin 27pg (25-35) Mean Corpuscular Hemoglobin Concent 32g/dL (31-37) Red Cell Distribution Width 15.2% (11.5-14.5) Platelet Count 340x10^3/uL (140-400) Neutrophils (%) (Auto) 60% (31-73) Lymphocytes (%) (Auto) 29% (24-48) Monocytes (%) (Auto) 7% (0-9) Eosinophils (%) (Auto) 3% (0-3) Basophils (%) (Auto) 1% (0-3) Neutrophils # (Auto) 5.4x10^3uL (1.8-7.7) Lymphocytes # (Auto) 2.6x10^3/uL (1.0-4.8) Monocytes # (Auto) 0.7x10^3/uL (0.0-1.1) Eosinophils # (Auto) 0.3x10^3/uL (0.0-0.7) Basophils # (Auto) 0.1x10^3/uL (0.0-0.2) Sodium Level 142mmol/L (136-145) Potassium Level 3.7mmol/L (3.5-5.1) Chloride Level 103mmol/L (98-107) Carbon Dioxide Level 31mmol/L (21-32) Anion Gap 8 (6-14) Blood Urea Nitrogen 12mg/dL (7-20) Creatinine 0.8mg/dL (0.6-1.0) Estimated GFR (Cockcroft-Gault) 84.6 Glucose Level 96mg/dL (70-99) Calcium Level 9.5mg/dL (8.5-10.1) Microbiology 11/18/16 Blood Culture - Final, Complete NO GROWTH AFTER 5 DAYS 11/21/16 Sputum Culture - Final, Complete 11/21/16 Sputum Result 1 - Final, Complete Medications Current Medications Levofloxacin/ Dextrose 1 each 1 each PRN DAILY PRN MC SEE COMMENTS; Start at 15:15; Stop 11/24/16 at 13:55; Status DC Levofloxacin/ Dextrose 150 ml @ 100 mls/hr 1X ONCE IV Last administered on 15:19; Start 11/18/16 at 15:45; Stop 11/18/16 at 17:14; Status DC Levofloxacin/ Dextrose (LEVAQUIN 750mg PREMIX) 150 ml @ 100 mls/hr Q48H IV Last administered on 11/22/16 16:18; Start 11/20/16 at 16:00; Stop 11/24/16 at 11:47; Status DC Ondansetron HCl (Zofran) 4 mg PRN Q6HRS PRN IV NAUSEA/VOMITING, 1ST CHOICE Last administered on 11/25/16 00:23; Start 11/18/16 at 15:45 Prochlorperazine Edisylate (Compazine) 10 mg PRN Q6HRS PRN IV NAUSEA/VOMITING, 2ND CHOICE Last administered on 11/18/16 22:29; Start 11/18/16 at 15:45 Prochlorperazine (Compazine) 25 mg PRN Q12HR PRN [place] NAUSEA/VOMITING; Start 11/18 at 15:45 Al Hydroxide/Mg Hydroxide (Mylanta Plus Xs) 30 ml PRN Q3HRS PRN PO HEARTBURN / GAS; Start 11/18/16 at 15:45 Calcium Carbonate/ Glycine (Tums) 500 mg PRN Q3HRS PRN PO UPSET STOMACH; Start 11/18/16 at 15:45 Oxycodone HCl (Roxicodone) 5 mg PRN Q3HRS PRN PO BREAKTHROUGH PAIN Last administered on 11/24/16 02:21; Start 11/18/16 at 15:45 Morphine Sulfate 1 mg PRN Q2HR PRN IV SEVERE PAIN Last administered on 08:36; Start 11/18/16 at 15:45 Acetaminophen (Tylenol) 650 mg PRN Q6HRS PRN PO MILD PAIN / TEMP; Start at 15:45 Ibuprofen (Motrin) 400 mg PRN Q6HRS PRN PO MILD PAIN; Start 11/18/16 at 15:45 Docusate Sodium (Colace) 100 mg BID PO Last administered on 11/25/16 07:53; Start 11/18/16 at 21:00 Magnesium Hydroxide (Milk Of Magnesia) 2,400 mg PRN Q12HR PRN PO CONSTIPATION; Start 11/18/16 at 15:45 Lactulose 20 gm PRN Q12HR PRN PO CONSTIPATION; Start 11/18/16 at 15:45 Bisacodyl (Dulcolax Supp) 10 mg PRN DAILY PRN [place] CONSTIPATION; Start 11/18/16 at 15:45 Enoxaparin Sodium (Lovenox 40mg Syringe) 40 mg Q24H SQ Last administered on 22:15; Start 11/18/16 at 21:00 Piperacillin Sod/ Tazobactam Sod (Zosyn Per Pharmacy) 1 each PRN DAILY PRN MC SEE COMMENTS; Start 11/18/16 at 15:45 Guaifenesin 10 ml 10 ml QID PO Last administered on 11/25/16 07:52; Start 11/18 at 17:00 Piperacillin Sod/ Tazobactam Sod/ Sodium Chloride (Zosyn/Iv Sodium Chloride 0.9 % 50ml) 50 ml @ 100 mls/hr Q6HRS IV Last administered on 11/25/16 06:24; Start 11/18/16 at 17:00 Alprazolam (Xanax) 0.25 mg PRN DAILY PRN PEG ANXIETY / AGITATION Last administered on 11/21/16 02:07; Start 11/18/16 at 16:00 Amlodipine Besylate (Norvasc) 5 mg DAILY PEG Last administered on 11/25/16 07: 53; Start 11/18/16 at 16:30 Atenolol (Tenormin) 50 mg DAILY PEG Last administered on 11/25/16 07:55; Start 11/18/16 at 16:30 Citalopram Hydrobromide (Celexa) 10 mg DAILY PEG Last administered on 07:55; Start 11/18/16 at 16:30 Cyproheptadine HCl (Periactin) 2 mg TID PEG Last administered on 11/25/16 07: 55; Start 11/18/16 at 21:00 Donepezil HCl (Aricept) 5 mg DAILY PEG Last administered on 11/25/16 07:55; Start 11/18/16 at 16:30 Fentanyl (Duragesic 50mcg/ Hr Patch) 1 patch Q3DAYS TD Last administered on 07:56; Start 11/19/16 at 09:00 Ondansetron HCl (Zofran Odt) 4 mg QIDPRN PRN PEG NAUSEA/VOMITING Last administered on 11/22/16 09:47; Start 11/18/16 at 16:00 Oxycodone HCl 5 mg PRN QID PRN PEG PAIN Last administered on 11/25/16 07:56; Start 11/18/16 at 16:00 Saccharomyces Boulardii (Florastor) 250 mg DAILY PEG Last administered on 07:55; Start 11/19/16 at 09:00 Albuterol Sulfate (Ventolin Neb Soln) 2.5 mg PRN Q4HRS PRN NEB SHORTNESS OF BREATH; Start 11/18/16 at 16:15 Metoclopramide HCl (Reglan) 2 mg TIDAC PO Last administered on 11/25/16 06:24 ; Start 11/18/16 at 16:30 Metoprolol Tartrate (Lopressor) 25 mg BID PO Last administered on 11/25/16 07: 54; Start 11/18/16 at 21:00 Losartan Potassium (Cozaar) 100 mg DAILY PO Last administered on 11/25/16 07: 53; Start 11/18/16 at 16:30 Albuterol/ Ipratropium 3 ml 3 ml RTQID NEB Last administered on 11/25/16 08:31 ; Start 11/18/16 at 16:30 Vancomycin HCl/ Sodium Chloride (Iv Sodium Chloride 0.9% 250ml) 250 ml @ 250 mls/hr Q24H IV ; Start 11/20/16 at 09:15; Status Cancel Vancomycin HCl 1 each 1 each PRN DAILY PRN MC SEE COMMENTS Last administered on 11/23/16 16:17; Start 11/20/16 at 09:15; Stop 11/24/16 at 11:47; Status DC Vancomycin HCl 1.5 gm/Sodium Chloride 500 ml @ 250 mls/hr 1X ONCE IV Last administered on 11/20/16 09:51; Start 11/20/16 at 10:00; Stop 11/20/16 at 11:59; Status DC Vancomycin HCl/ Sodium Chloride (Iv Sodium Chloride 0.9% 250ml) 250 ml @ 250 mls/hr Q24H IV Last administered on 11/21/16 11:24; Start 11/21/16 at 10:00; Stop 11/22/16 at 11:57; Status DC Vancomycin HCl 1 each 1 each 1X ONCE MC Last administered on 11/22/16 10:30; Start 11/22/16 at 09:30; Stop 11/22/16 at 09:31; Status DC Vancomycin HCl/ Sodium Chloride (Iv Sodium Chloride 0.9% 250ml) 250 ml @ 250 mls/hr Q12H IV Last administered on 11/24/16 01:46; Start 11/22/16 at 12:00; Stop 11/24/16 at 11:47; Status DC Benzonatate (Tessalon Perle) 100 mg PRN TID PRN PO COUGH Last administered on 02:21; Start 11/24/16 at 02:15 Levofloxacin (Levaquin) 500 mg DAILY06 PEG ; Start 11/25/16 at 12:00 Doxycycline Hyclate (Vibra-Tab) 100 mg BID PEG Last administered on 11/25/16 07:53; Start 11/24/16 at 21:00 Active Scripts Active Atenolol 25 Mg Tablet 50 Mg PEG DAILY Amlodipine Besylate 5 Mg Tablet 5 Mg PEG DAILY Reported Bystolic (Nebivolol) 5 Mg Tablet 5 Mg PO DAILY Sulfamethoxazole-Tmp Ds Tablet (Sulfamethoxazole/Trimethoprim) 1 Each Tablet 1 Tab PO BID Oxycodone Hcl 5 Mg/5 Ml Solution 5 Mg PEG Q 4HRS PRN PAIN PRN Aricept (Donepezil Hcl) 5 Mg Tablet 5 Mg PEG DAILY Proair Hfa Inhaler (Albuterol Sulfate) 8.5 Gm Hfa.aer.ad 2 Puff IH PRN Q4-6HRS Albuterol Sulfate Neb Soln (Albuterol Sulfate) 0.63 Mg/3 Ml Vial.neb 1 Vial NEB PRN PRN Florastor (Saccharomyces Boulardii) 250 Mg Capsule 250 Mg PEG DAILY FENTANYL 50mcg/hr (Fentanyl) 1 Each Patch.td72 1 Patch TP Q3DAYS Xanax (Alprazolam) 0.25 Mg Tablet 0.25 Mg PEG DAILY PRN Citalopram Hbr (Citalopram Hydrobromide) 10 Mg Tablet 1 Tab PEG DAILY Ondansetron Odt (Ondansetron) 4 Mg Tab.rapdis 4 Mg PEG QIDPRN PRN Metoclopramide Hcl 5 Mg/5 Ml Solution 2 Mg PEG TID Cyproheptadine Hcl 4 Mg Tablet 2 Mg PEG TID Diovan (Valsartan) 160 Mg Tablet 160 Mg PEG DAILY Vitals/I & O Vital Sign - Last 24 Hours 11/24/16 11/24/16 11/24/16 11/24/16 11:24 15:00 17:15 19:00 Temp 97.6 97.5 97.6 97.5 Pulse 78 81 Resp 24 20 B/P 136/86 171/90 Pulse Ox 97 100 O2 Delivery Nasal Cannula Room Air Nasal Cannula Nasal Cannula O2 Flow Rate 2.0 2.0 2.0 2.0 11/24/16 11/24/16 11/24/16 11/24/16 19:58 20:00 22:14 23:00 Temp 98.1 98.1 Pulse 81 88 Resp 20 B/P 171/90 163/81 Pulse Ox 95 100 O2 Delivery Nasal Cannula Nasal Cannula Nasal Cannula O2 Flow Rate 2.0 2.0 2.0 11/25/16 11/25/16 11/25/16 11/25/16 00:12 03:00 07:00 07:53 Temp 98.9 98.3 98.9 98.3 Pulse 75 72 72 Resp 20 16 B/P 168/90 122/70 122/70 Pulse Ox 100 100 92 O2 Delivery Nasal Cannula Nasal Cannula Nasal Cannula O2 Flow Rate 2.0 2.0 2.0 11/25/16 11/25/16 11/25/16 11/25/16 07:53 07:54 07:55 08:22 Pulse 72 72 72 B/P 122/70 122/70 122/70 O2 Delivery Nasal Cannula O2 Flow Rate 2.0 11/25/16 11/25/16 08:34 11:02 Temp 97.4 97.4 Pulse 70 Resp 14 B/P 130/69 Pulse Ox 100 98 O2 Delivery Nasal Cannula Nasal Cannula O2 Flow Rate 2.0 2.0 Intake and Output 11/24/16 11/24/16 11/25/16 15:00 23:00 07:00 Intake Total 900 ml 1075 ml 50 ml Output Total 0 ml Balance 900 ml 1075 ml 50 ml Nutrition Consultation Dietary Evaluation: Recommendations by RD: PPN/TPN Comments: continue bolus TF Expected Outcomes/Goals: to meet > 75% est nutr needs via PEG TF - met, goal on going Malnutrition Findings: Body Fat Depletion (Non Severe: Mild Depletion Reduced Gamb Cutter Strength: N/A Weight Status: Appropriate Fluid Accumulation (N/A): N/A SAMMY WILEY III DO Nov 25, 2016 11:13
[2016-11-25] MEDS ORDERED: HEPARIN PF 500 UNIT/5 ML DISP.SYRIN. IV ONE (11:30)
[2016-11-25] MEDS ORDERED: LEVOFLOXACIN 500 MG TABLET PEG SCH (12:00)
== END 2016-11-25 14:00 | disposition home or self-care (01) | DRG 193 ==
LOC: ER 13:22 → 5 SOUTH 15:00
PROVIDERS: ADMIT Internal Medicine; ATTEND Internal Medicine
DX: J18.9 Pneumonia, unspecified organism (principal); J96.20 Acute and chronic respiratory failure, unspecified whether with hypoxia or hypercapnia; J44.0 Chronic obstructive pulmonary disease with (acute) lower respiratory infection; E44.0 Moderate protein-calorie malnutrition; C34.32 Malignant neoplasm of lower lobe, left bronchus or lung; D63.8 Anemia in other chronic diseases classified elsewhere; Z68.20 Body mass index [BMI] 20.0-20.9, adult; E78.00 Pure hypercholesterolemia, unspecified; F03.90 Unspecified dementia, unspecified severity, without behavioral disturbance, psychotic disturbance, mood disturbance, and anxiety; I10 Essential (primary) hypertension; J45.909 Unspecified asthma, uncomplicated; F41.9 Anxiety disorder, unspecified; M19.90 Unspecified osteoarthritis, unspecified site; B95.62 Methicillin resistant Staphylococcus aureus infection as the cause of diseases classified elsewhere; C32.9 Malignant neoplasm of larynx, unspecified; K21.9 Gastro-esophageal reflux disease without esophagitis; R13.10 Dysphagia, unspecified; Z85.118 Personal history of other malignant neoplasm of bronchus and lung; Z85.21 Personal history of malignant neoplasm of larynx; Z85.818 Personal history of malignant neoplasm of other sites of lip, oral cavity, and pharynx; Z86.718 Personal history of other venous thrombosis and embolism; Z87.11 Personal history of peptic ulcer disease; Z87.891 Personal history of nicotine dependence; Z92.21 Personal history of antineoplastic chemotherapy; Z92.3 Personal history of irradiation; Z93.0 Tracheostomy status; Z93.1 Gastrostomy status
CPT/HCPCS: 31720; 36415; 71010; 71020; 80048; 80053; 80202; 83605; 84145; 85007; 85027; 87040; 87070; 87205; 87641; 87804; 93005; 94250; 94640; 94760; 96374; J0780; J1650; J1956; J2270; J2405; J2543; J3370; J7040; J7050; J7620; J8597; Q0162; 97110; 99285-25; J7030

== ENCOUNTER 2017-01-29 10:26 | Inpatient (IN) | payer MEDICARE, OTHER ==
[~2017-01-29] VITALS: Ht 170.2 cm; Wt 65.1 kg
[~2017-01-29 10:26] MED LIST changes: +POLY17PO29 PO; -POLY17PO5 PO
--- NOTE | 2017-01-29 10:41 | PHYS DOC ---
Past Medical History Past Medical History: Cancer, Hypertension, MRSA, Other Additional Past Medical Histor: LUNG AND LYMPH NODES CANCER Past Surgical History: Other Additional Past Surgical Histo: cataract, PEG tube, ca, TRACH Alcohol Use: None Drug Use: None Adult General Chief Complaint Chief Complaint: CHEST PAIN HPI HPI Patient is a 76 year old -[place] female who presents with chest pain. She states it started this morning it comes and goes and nothing she does makes it feel better or worse, she states is substernal under her left chest and does not radiate. She denies any nausea or vomiting. She denies any shortness of breath associated with this. She states she's never had discomfort like this before. She does have a history of COPD and lung cancer and is on 2-3 L nasal cannula at home. Review of Systems Review of Systems Constitutional: Denies fever or chills [] Eyes: Denies change in visual acuity, redness, or eye pain [] HENT: Denies nasal congestion or sore throat [] Respiratory: Denies cough or shortness of breath [] Cardiovascular: No additional information not addressed in HPI [] GI: Denies abdominal pain, nausea, vomiting, bloody stools or diarrhea [] : Denies dysuria or hematuria [] Musculoskeletal: Denies back pain or joint pain [] Integument: Denies rash or skin lesions [] Neurologic: Denies headache, focal weakness or sensory changes [] Endocrine: Denies polyuria or polydipsia [] Current Medications Current Medications Current Medications Medications (Trade) Dose Ordered Sig/[facility] Start Time Stop Time Status Last Admin Dose Admin Aspirin (Socorro Aspirin) 325 mg 1X ONCE 01/29/17 12:00 01/29/17 12:01 DC 01/29/17 12:00 325 MG Ondansetron HCl (Zofran) 4 mg PRN Q8HRS PRN 01/29/17 13:45 01/30/17 13:44 Allergies Allergies Allergies Coded Allergies Type Severity Reaction Last Updated Verified I S O L A T I O N *CONTACT* Allergy Unknown 11/20/16 Yes No Known Medication Allergies Allergy Unknown 09/17/16 Yes Physical Exam Physical Exam Constitutional: Well developed, well nourished, no acute distress, non-toxic appearance. [] HENT: Normocephalic, atraumatic, bilateral external ears normal, oropharynx moist, no oral exudates, nose normal. [] Eyes: PERRLA, EOMI, conjunctiva normal, no discharge. [] Neck: Normal range of motion, no tenderness, supple, no stridor. [] Cardiovascular:Heart rate regular rhythm, no murmur [] Lungs & Thorax: Breath sounds coarse bilaterally. Abdomen: Bowel sounds normal, soft, no tenderness, no masses, no pulsatile masses. [] Skin: Warm, dry, no erythema, no rash. [] Back: No tenderness, no CVA tenderness. [] Extremities: No tenderness, no cyanosis, no clubbing, ROM intact, no edema. [] Neurologic: Alert and oriented X 3, normal motor function, normal sensory function, no focal deficits noted. [] Psychologic: Affect normal, judgement normal, mood normal. [] Current Patient Data Vital Signs Vital Signs Date Time Temp Pulse Resp B/P (MAP) Pulse Ox O2 Delivery O2 Flow Rate FiO2 01/29/17 13:47 82 20 141/66 (91) 94 01/29/17 10:33 98.3 Room Air 98.3 Lab Values Laboratory Tests Test 01/29/17 11:10 White Blood Count 15.8 x10^3/uL (4.0-11.0) H Red Blood Count 4.56 x10^6/uL (3.50-5.40) Hemoglobin 12.3 g/dL (12.0-15.5) Hematocrit 39.2 % (36.0-47.0) Mean Corpuscular Volume 86 fL (79-100) Mean Corpuscular Hemoglobin 27 pg (25-35) Mean Corpuscular Hemoglobin Concent 31 g/dL (31-37) Red Cell Distribution Width 15.6 % (11.5-14.5) H Platelet Count 404 x10^3/uL (140-400) H Neutrophils (%) (Auto) 71 % (31-73) Lymphocytes (%) (Auto) 22 % (24-48) L Monocytes (%) (Auto) 6 % (0-9) Eosinophils (%) (Auto) 0 % (0-3) Basophils (%) (Auto) 1 % (0-3) Neutrophils # (Auto) 11.2 x10^3uL (1.8-7.7) H Lymphocytes # (Auto) 3.5 x10^3/uL (1.0-4.8) Monocytes # (Auto) 0.9 x10^3/uL (0.0-1.1) Eosinophils # (Auto) 0.1 x10^3/uL (0.0-0.7) Basophils # (Auto) 0.1 x10^3/uL (0.0-0.2) Prothrombin Time 15.1 SEC (11.7-14.0) H Prothrombin Time INR 1.3 (0.8-1.1) H D-Dimer (Deandra) 2.19 ug/mlFEU (0.00-0.50) H Sodium Level 136 mmol/L (136-145) Potassium Level 3.9 mmol/L (3.5-5.1) Chloride Level 94 mmol/L (98-107) L Carbon Dioxide Level 38 mmol/L (21-32) H Anion Gap 4 (6-14) L Blood Urea Nitrogen 32 mg/dL (7-20) H Creatinine 1.3 mg/dL (0.6-1.0) H Estimated GFR (Cockcroft-Gault) 48.3 Glucose Level 120 mg/dL (70-99) H Calcium Level 9.0 mg/dL (8.5-10.1) Magnesium Level 3.4 mg/dL (1.8-2.4) H Total Bilirubin 0.3 mg/dL (0.2-1.0) Direct Bilirubin 0.2 mg/dL (0.0-0.2) Aspartate Amino Transferase (AST) 21 U/L (15-37) Alanine Aminotransferase (ALT) 20 U/L (14-59) Alkaline Phosphatase 72 U/L (46-116) Creatine Kinase 76 U/L (26-192) Creatine Kinase MB (Mass) 0.9 ng/mL (0.0-3.6) Creatine Kinase MB Relative Index 1.2 % (0-4) Troponin I Quantitative 0.069 ng/mL (0.000-0.055) HZ-Ziv-H-Type Natriuretic Peptide 3261 pg/mL (0-449) H Total Protein 8.7 g/dL (6.4-8.2) H Albumin 2.9 g/dL (3.4-5.0) L Lipase 119 U/L (73-393) Thyroid Stimulating Hormone (TSH) 1.839 uIU/mL (0.358-3.74) Laboratory Tests 01/29/17 11:10 Laboratory Tests 01/29/17 11:10 EKG EKG EKG shows sinus rhythm with a rate of 87 bpm, ST elevations noted in leads V2, T -wave inversions noted in leads aVL, left axis deviation, QTC 460 5L sinus, as interpreted by me. Similar to an EKG done November 18, 2016 Radiology/Procedures Radiology/Procedures [facility] [address] [place] [address] IMAGING REPORT Signed PATIENT: BERNARDO DE LEON ACCOUNT: [id number] : 1940 LOCATION: ER AGE: 76 SEX: F EXAM STATUS: PRE ER ORD. PHYSICIAN: BING SOLER MD REASON: chest pain PROCEDURE: PORTABLE CHEST 1V Examination: Single frontal view the chest History: History of chest pain Comparison: 11/21/2016 Findings: Tracheostomy tube appears in place. Mild cardiomegaly. A right-sided Port-A-Cath is unchanged. Minimal prominent appearing bilateral interstitial lung markings grossly similar to prior exam. Mild airspace opacity identified in the left lung base likely atelectasis or infiltrate grossly similar to prior exam. Impression: 1. Mild left lung base airspace opacity likely atelectasis or infiltrate grossly similar to prior exam. 2. Minimal prominent appearing bilateral interstitial lung markings similar to prior exam likely chronic. DICTATED and SIGNED BY: FANNIE PEDERSEN MD DATE: 01/29/17 1050 CC: IBNG SOLER MD; CATHERINE MOSCOSO MD ~ Impressions: Chest pain Elevated d-dimer Course & Med Decision Making Course & Med Decision Making Pertinent Labs and Imaging studies reviewed. (See chart for details) EKG is similar to the previous EKG however her troponin is slightly elevated. She received aspirin and cardiology has been consult.Patient is being admitted to Dr. Garcia . D-dimer is positive a CT angiogram is pending at this time. Cardiology consultation has also been placed. Interim orders have been written. Dragon Disclaimer Dragon Disclaimer This electronic medical record was generated, in whole or in part, using a voice recognition dictation system. Departure Departure Referrals: CATHERINE MOSCOSO MD (PCP) BING SOLER MD January 29, 2017 10:41
--- NOTE | 2017-01-29 10:56 | RAD ---
Examination: Single frontal view the chest History: History of chest pain Comparison: 11/21/2016 Findings: Tracheostomy tube appears in place. Mild cardiomegaly. A right-sided Port-A-Cath is unchanged. Minimal prominent appearing bilateral interstitial lung markings grossly similar to prior exam. Mild airspace opacity identified in the left lung base likely atelectasis or infiltrate grossly similar to prior exam. Impression: 1. Mild left lung base airspace opacity likely atelectasis or infiltrate grossly similar to prior exam. 2. Minimal prominent appearing bilateral interstitial lung markings similar to prior exam likely chronic.
[2017-01-29 11:17] LABS: BASO # 0.1 x10^3/uL (0.0-0.2); BASO % 1 % (0-3); EOS % 0 % (0-3); HEMATOCRIT 39.2 % (36.0-47.0); HEMOGLOBIN 12.3 g/dL (12.0-15.5); LYMPH # 3.5 x10^3/uL (1.0-4.8); LYMPH % 22 % (24-48); MEAN CORPUSCULAR HEMOGLOBIN 27 pg (25-35); MEAN CORPUSCULAR HGB CONC 31 g/dL (31-37); MEAN CORPUSCULAR VOLUME 86 fL (79-100); MONO % 6 % (0-9); NEUT % 71 % (31-73); PLATELET COUNT 404 x10^3/uL (140-400); RED BLOOD COUNT 4.56 x10^6/uL (3.50-5.40); RED CELL DISTRIBUTION WIDTH 15.6 % (11.5-14.5); WHITE BLOOD COUNT 15.8 x10^3/uL (4.0-11.0)
[2017-01-29 11:32] LABS: INR 1.3 (0.8-1.1); PROTHROMBIN TIME PATIENT 15.1 SEC (11.7-14.0)
[2017-01-29 11:39] LABS: CREATININE 1.3 mg/dL (0.6-1.0); GFR 48.3; POTASSIUM 3.9 mmol/L (3.5-5.1)
[2017-01-29 11:45] LABS: ALBUMIN 2.9 g/dL (3.4-5.0); DIRECT BILIRUBIN 0.2 mg/dL (0.0-0.2); MAGNESIUM 3.4 mg/dL (1.8-2.4); TOTAL BILIRUBIN 0.3 mg/dL (0.2-1.0); TOTAL PROTEIN 8.7 g/dL (6.4-8.2)
[2017-01-29 11:56] LABS: CKMB MASS 0.9 ng/mL (0.0-3.6)
[2017-01-29] MEDS ORDERED: ASPIRIN 325 MG TABLET PO ONE (12:00)
--- NOTE | 2017-01-29 12:09 | EKG ---
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
--- NOTE | 2017-01-29 12:21 | ACF ---
Admit Criteria Forms Admit Criteria Forms Admit Criteria Forms CHEST PAIN Clinical Indications for Admission to Inpatient Care (Place 'X' for any and all applicable criteria): Admission is indicated for chest pain and ANY ONE of the following(1)(2)(3)(4)(5 ): [ ]I. Angina with acute coronary syndrome (Also use Myocardial Infarction or Angina guideline) [ ]II. Hemodynamic instability [ ]III. Angina needing acute intervention as indicated by ALL of the following( 11)(12): [ ]a) Unstable angina is present as indicated by angina that is ANY ONE of the following: [ ]i) New onset [ ]ii) Nocturnal [ ]iii) Prolonged at rest [ ]iv) Progressive [ ]b) Angina warrants acute intervention as indicated by ANY ONE of the following: [ ]i) Recurrent angina (e.g, not responding as previously to treatment) [ ]ii) Angina at rest or with low-level activities despite initial medical therapy [ ]iii) New or presumably new ST-segment depression on ECG [ ]iv) Signs or symptoms of heart failure (eg, dyspnea, pulmonary edema) [ ]v) New or worsening mitral regurgitation [ ]vi) Hemodynamic instability [ ]vii) Dangerous arrhythmia (eg, sustained ventricular tachycardia) [ ]viii) History of percutaneous coronary intervention within 6 months [ ]ix) History of coronary artery bypass graft surgery [ ]x) BRODY risk score of 2 or greater[A] [ ]xi) History of Diabetes(14) [ ]xii) High-risk cardiac ischemia findings on noninvasive testing (e.g, echocardiogram, treadmill testing, nuclear scan) [ ]xiii) Chronic renal insufficiency (ie, estimated GFR less than 60 mL/min/1.732m) [ ]xiv) Left ventricular ejection fraction less than 40% [x ]IV. Evidence of TN (eg, cardiac biomarkers positive, ST-segment elevation on ECG) also use Myocardial Infarction Criteria Form. [ ]V. Pulmonary edema [ ]. Respiratory distress [ ]VII. Chest pain indicative of serious diagnosis other than coronary artery disease (eg, aortic dissection) [ ]VIII. Contraindications and/or Inappropriate clinical situations for Observational Care in patients with Chest Pain, when ANY ONE of the following is required: [ ]a) Patient with risk factor for pulmonary embolism, acute coronary syndrome and myocardial infarction (18) [ ]b) Patient with Pulmonary embolism require an average LOS of 4.3 days, therefore emergency department observation management is inappropriate 18,23 [ ]c) Painful condition/s in the elderly, have the highest rate of recidivism after emergency department observation management (10.8%) 20,21,22 [ ]d) Elevated cardiac biomarker requires intensive and exhaustive care (19) [x ]IX. General contraindications and/or Inappropriate clinical situations for Observational Care in patients with Chest Pain, when ANY ONE of the following is required: [ x]a) Prediction of prolongation of LOS based on ANY ONE of the following may be considered as a contraindication for observational care 2, 3, 4, 5, 6, 7, 8, 9, 10, 11 [ x]i) Age > 65 yrs. [ ]ii) Patient arriving by ambulance [ ]iii) Patient with high acuity [ ]iv) Patient requiring vital sign monitoring [ ]v) Patient on IV medication [ ]b) Systolic blood pressures 180mmHg 3,12 [ ]c) Patient with altered mental status including delirium and other alteration of consciousness, (3) [ ]d) Patient whose discharge disposition will be to a [facility] home or rehabilitation home should not be managed in Emergency Department Observation Unit. CMS rule requires 3 days hospital stay before such placement. 3,13 [ ]e) Patient with failure to thrive due to broad array of etiologies 3,16,17 [ ]f) Inability to ambulate 3,14 Extended stay beyond goal length of stay may be needed for (1)(28): [ ]a) Specific condition diagnosed after evaluation (eg, pulmonary embolism, aortic dissection) [ ]b) Unstable angina [ ]c) Continued suspicion of acute coronary syndrome with inability to complete needed cardiac evaluation (eg, patient clinically unable to undergo stress testing) [ ]d) Myocardial infarction (Contents from ANGINA and CHEST PAIN clinical indications for admission to inpatient care have been integrated in this form) The original [employer] content created by [employer] has been revised. The portions of the content which have been revised are identified through the use of italic text or in bold, and [facility] has neither reviewed nor approved the modified material. All other unmodified content is copyright [employer]. Please see references footnoted in the original [facility] edition 2016 CYNDEE MARIA January 29, 2017 12:21
[2017-01-29] MEDS ORDERED: ONDANSETRON PF 4 MG/2 ML VIAL. IV PRN (13:45)
[2017-01-29] MEDS ORDERED: IOHEXOL 300 MG/ML 75 ML VIAL IV ONE (14:00)
[2017-01-29] MEDS ORDERED: CONTRAST GIVEN MC PRN (14:15)
--- NOTE | 2017-01-29 14:20 | PDOC2 ---
CARDIAC CONSULT DATE OF CONSULT Date of Consult DATE: 01/29/17 TIME: 13:49 REASON FOR CONSULT Reason for Consult: chest pain REFERRING PHYSICIAN Referring Physician: Dr. Kiran Goyal SOURCE Source: Caregiver (sister), Chart review HISTORY OF PRESENT ILLNESS HISTORY OF PRESENT ILLNESS 76 year old female with a one month history of hypoxia and O2 sats in the 70s at home. Seen by PCP yesterday with recommendation for hospitalization, however, patient declined this and was started on oral antibiotics. Contacted sister earlier today requesting to go to hospital for left lower sternal chest pain. EKG with T wave inversion in aVL only. No acute changes. Initial troponin was 0.06. Patient too sedated to provide significant information or participate in interview. 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; recurrence treated with radiation) Renal/: No pertinent hx Endocrine: No pertinent hx Dermatology: No pertinent hx PAST SURGICAL HISTORY Past Surgical History Cataract Removal, Other (trach & PEG) FAMILY HISTORY Family History Heart Disease SOCIAL HISTORY Social History Smoke: No ALCOHOL: none Drugs: None CURRENT MEDICATIONS CURRENT MEDICATIONS Current Medications Medications (Trade) Dose Ordered Sig/Yuliana Route PRN Reason Start Time Stop Time Status Last Admin Dose Admin Aspirin (Socorro Aspirin) 325 mg 1X ONCE PO 01/29/17 12:00 01/29/17 12:01 DC 01/29/17 12:00 ALLERGIES ALLERGIES: Coded Allergies: I S O L A T I O N *CONTACT* (Verified Allergy, Unknown, 11/20/16) mrsa No Known Medication Allergies (Verified Allergy, Unknown, 09/17/16) ROS Review of System unobtainable due to sedation PHYSICAL EXAM General: No acute distress, Other (sedated) HEENT: Atraumatic Lungs: Other (diminished anteriorly; coarse; right pectoral port) Heart: Regular rate, Normal S1, Normal S2 Abdomen: Normal bowel sounds, Soft Extremities: Normal pulses, Other (trace LE edema) Skin: No rashes Neuro: Other (unable to assess due to sedation/pain meds) Psych/Mental Status: Other (sedated; on chronic pain meds) MUSCULOSKELETAL: Osteoarthritic changes both hands VITALS VITALS Vital Signs Date Time Temp Pulse Resp B/P (MAP) Pulse Ox O2 Delivery O2 Flow Rate FiO2 01/29/17 13:47 82 20 141/66 (91) 94 01/29/17 10:33 98.3 Room Air 98.3 LABS Lab: Laboratory Tests Test 01/29/17 11:10 White Blood Count 15.8 x10^3/uL (4.0-11.0) Red Blood Count 4.56 x10^6/uL (3.50-5.40) Hemoglobin 12.3 g/dL (12.0-15.5) Hematocrit 39.2 % (36.0-47.0) Mean Corpuscular Volume 86 fL (79-100) Mean Corpuscular Hemoglobin 27 pg (25-35) Mean Corpuscular Hemoglobin Concent 31 g/dL (31-37) Red Cell Distribution Width 15.6 % (11.5-14.5) Platelet Count 404 x10^3/uL (140-400) Neutrophils (%) (Auto) 71 % (31-73) Lymphocytes (%) (Auto) 22 % (24-48) Monocytes (%) (Auto) 6 % (0-9) Eosinophils (%) (Auto) 0 % (0-3) Basophils (%) (Auto) 1 % (0-3) Neutrophils # (Auto) 11.2 x10^3uL (1.8-7.7) Lymphocytes # (Auto) 3.5 x10^3/uL (1.0-4.8) Monocytes # (Auto) 0.9 x10^3/uL (0.0-1.1) Eosinophils # (Auto) 0.1 x10^3/uL (0.0-0.7) Basophils # (Auto) 0.1 x10^3/uL (0.0-0.2) Prothrombin Time 15.1 SEC (11.7-14.0) Prothromb Time International Ratio 1.3 (0.8-1.1) D-Dimer (Deandra) 2.19 ug/mlFEU (0.00-0.50) Sodium Level 136 mmol/L (136-145) Potassium Level 3.9 mmol/L (3.5-5.1) Chloride Level 94 mmol/L (98-107) Carbon Dioxide Level 38 mmol/L (21-32) Anion Gap 4 (6-14) Blood Urea Nitrogen 32 mg/dL (7-20) Creatinine 1.3 mg/dL (0.6-1.0) Estimated GFR (Cockcroft-Gault) 48.3 Glucose Level 120 mg/dL (70-99) Calcium Level 9.0 mg/dL (8.5-10.1) Magnesium Level 3.4 mg/dL (1.8-2.4) Total Bilirubin 0.3 mg/dL (0.2-1.0) Direct Bilirubin 0.2 mg/dL (0.0-0.2) Aspartate Amino Transf (AST/SGOT) 21 U/L (15-37) Alanine Aminotransferase (ALT/SGPT) 20 U/L (14-59) Alkaline Phosphatase 72 U/L (46-116) Creatine Kinase 76 U/L (26-192) Creatine Kinase MB (Mass) 0.9 ng/mL (0.0-3.6) Creatine Kinase MB Relative Index 1.2 % (0-4) Troponin I Quantitative 0.069 ng/mL (0.000-0.055) EB-Nmc-T-Type Natriuretic Peptide 3261 pg/mL (0-449) Total Protein 8.7 g/dL (6.4-8.2) Albumin 2.9 g/dL (3.4-5.0) Lipase 119 U/L (73-393) Thyroid Stimulating Hormone (TSH) 1.839 uIU/mL (0.358-3.74) IMAGES IMAGES CXR: Tracheostomy tube appears in place. Mild cardiomegaly. A right-sided Port-A-Cath is unchanged. Minimal prominent appearing bilateral interstitial lung markings grossly similar to prior exam. Mild airspace opacity identified in the left lung base likely atelectasis or infiltrate grossly similar to prior exam. Impression: 1. Mild left lung base airspace opacity likely atelectasis or infiltrate grossly similar to prior exam. 2. Minimal prominent appearing bilateral interstitial lung markings similar to prior exam likely chronic. EKG EKG no acute changes ECHOCARDIOGRAM ECHOCARDIOGRAM 06/02/2016: TTE: The left ventricular systolic function is normal. The Ejection Fraction is estimated at 60-65%. There is normal LV segmental wall motion. Transmitral Doppler flow pattern is Grade I-abnormal relaxation pattern. Mild mitral regurgitation. Mild tricuspid regurgitation. The PA pressure was estimated at 67 mmHg. There is moderate-severe pulmonary hypertension. There is no evidence of significant pericardial effusion. ASSESSMENT/PLAN ASSESSMENT/PLAN 1. chest pain not clearly reproducible; ? related to GERD or history of esophageal strictures IV Protonix today; thene PPI per FT starting tomorrow no acute changes in EKG and initial troponin with trivial elevation and not consistent with ACS continue serial markers ASA in ER; resume home beta-blockers and ARB limited echo to evaluate LV function and assess for WMA limited functional capacity - ? aggressive evaluation vs medical management - await serial markers and echo results 2. hypertensive heart disease diastolic dysfunction on echo of 05/2016 continue medications 3. 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
[2017-01-29] MEDS ORDERED: PANTOPRAZOLE IV PUSH 40 MG VIAL. IVP ONE (14:30)
--- NOTE | 2017-01-29 14:56 | RAD ---
Examination: CT angiography chest History: History of chest pain Comparison: 05/09/2016 Technique: Axial CT and radiographic images were performed with IV contrast. Coronal sagittal 3-D MIP reformatted performed PQRS Compliance Statement: One or more of the following individualized dose reduction techniques were utilized for this examination: 1. Automated exposure control 2. Adjustment of the mA and/or kV according to patient size 3. Use of iterative reconstruction technique Findings: There is no evidence of filling defect identified in the main pulmonary artery trunk and right and left main pulmonary arteries. There is thinning of the left lower lobe segmental pulmonary arterial branches in the left lower lobe consolidation or atelectasis or mass region grossly similar to prior exam. Left lower lobe medial lung consolidation or atelectasis or mass grossly similar to prior exam. No evidence of aortic aneurysm identified Cardiomegaly unchanged. Diffuse coronary artery calcifications identified. Small mediastinal lymph nodes are identified in the precarinal region with the largest measuring 1.6 cm grossly similar to prior exam. Right-sided Port-A-Cath is identified. Tracheostomy tube is in place. Diffuse bilateral interstitial opacities are again identified particularly in the bibasal lungs which have slightly increased compared to prior exam. There are faint airspace opacities identified in the right middle lobe, bibasal lungs. Emphysematous changes identified in the bilateral lungs. The visualized liver, adrenals grossly appears unremarkable. Small hiatal hernia identified. Mild degenerative disease thoracic spine. Impression: 1. No evidence of central pulmonary embolism. There is thinning of the of the left lower lobe segmental arterial branches in the region of the left lower lobe consolidation or mass grossly similar to prior exam could be extrinsic compression or tumor invasion or thrombus or post therapeutic changes. This is unchanged compared to prior exam. 2. Diffuse bilateral interstitial opacities likely chronic interstitial changes with patchy airspace opacities identified in the bilateral lungs with atelectasis or infiltrates due to pneumonia. 3. Emphysematous changes identified in the lungs. 4. Mediastinal lymphadenopathy similar to prior exam.
[2017-01-29 15:14] VITALS: BP 150/67
[2017-01-29] MEDS ORDERED: ACETAMINOPHEN 325 MG TABLET. PO PRN (15:15)
[2017-01-29] MEDS ORDERED: ALBUTEROL SULFATE 2.5 MG/3 ML NEBU. NEB PRN (15:15)
[2017-01-29] MEDS ORDERED: hydrALAZINE 20 MG/ML VIAL. IVP PRN (15:15)
--- NOTE | 2017-01-29 15:41 | PDOC1 ---
History and Physical Past Medical History Cardiovascular: HTN Pulmonary: Other CENTRAL NERVOUS SYSTEM: Other GI: Other Heme/Onc: Anemia NOS Hepatobiliary: No pertinent hx Psych: No pertinent hx Rheumatologic: No pertinent hx Infectious disease: No pertinent hx Renal/: No pertinent hx Endocrine: No pertinent hx Past Surgical History Past Surgical History: Cataract Removal, Other Family History Family History: Heart Disease, Family History Unknown Social History ALCOHOL: none Drugs: None Current Medications Current Medications Current Medications Medications (Trade) Dose Ordered Sig/Yuliana Start Time Stop Time Status Last Admin Dose Admin Acetaminophen (Tylenol) 325 mg PRN Q6HRS PRN 01/29/17 15:15 Acetaminophen/ Hydrocodone Bitart (Lortab 5/325) 1 tab PRN Q6HRS PRN 01/29/17 15:15 Albuterol Sulfate (Ventolin Neb Soln) 2.5 mg PRN Q4HRS PRN 01/29/17 15:15 Aspirin ([place] Aspirin) 325 mg 1X ONCE 01/29/17 12:00 01/29/17 12:01 DC 01/29/17 12:00 325 MG Hydralazine HCl (Apresoline) 10 mg PRN Q4HRS PRN 01/29/17 15:15 Info (Do NOT chart on this entry -- for MONITORING) 1 each PRN DAILY PRN 01/29/17 14:15 01/31/17 14:14 Iohexol (Omnipaque 300 Mg/ml) 60 ml 1X ONCE 01/29/17 14:00 01/29/17 14:04 DC 01/29/17 14:16 60 ML Lansoprazole (Prevacid) 30 mg DAILY 01/30/17 09:00 Ondansetron HCl (Zofran) 4 mg PRN Q8HRS PRN 01/29/17 13:45 01/30/17 13:44 Pantoprazole Sodium (Protonix Vial) 40 mg 1X ONCE 01/29/17 14:30 01/29/17 14:31 DC Allergies Allergies Allergies Coded Allergies Type Severity Reaction Last Updated Verified I S O L A T I O N *CONTACT* Allergy Unknown 11/20/16 Yes No Known Medication Allergies Allergy Unknown 09/17/16 Yes ROS Review of System CONSTITUTIONAL: No fever or chills EYES: No recent changes SKIN: No rash or itching CARDIOVASCULAR: chest pain, syncope, palpitations, or edema RESPIRATORY: lots of secretions GASTROINTESTINAL: No nausea, vomiting or abdominal pain NEUROLOGICAL: No headaches or weakness ENDOCRINE: No cold or heat intolerance GENITOURINARY: No urgency or frequency of urination MUSCULOSKELETAL: No back pain or joint pain LYMPHATICS: No enlarged lymph nodes PSYCHIATRIC: No anxiety or depression Physical Exam Physical Exam GEN.: No apparent distress. Alert and oriented. HEENT: Head is normocephalic, atraumatic NECK: trach collar LUNGS: Clear to auscultation. rales HEART: RRR, S1, S2 present. Peripheral pulses intact ABDOMEN: Soft, nontender. Positive bowel sounds. PEG for 6 years EXTREMITIES: Without any cyanosis. NEUROLOGIC: Normal speech, normal tone PSYCHIATRIC: Normal affect, normal mood. SKIN: dry. Vitals Vitals Vital Signs Date Time Temp Pulse Resp B/P (MAP) Pulse Ox O2 Delivery O2 Flow Rate FiO2 01/29/17 15:14 97.7 81 18 150/67 (94) 100 97.7 01/29/17 10:33 Room Air Labs Labs Laboratory Tests Test 01/29/17 11:10 White Blood Count 15.8 x10^3/uL (4.0-11.0) Red Blood Count 4.56 x10^6/uL (3.50-5.40) Hemoglobin 12.3 g/dL (12.0-15.5) Hematocrit 39.2 % (36.0-47.0) Mean Corpuscular Volume 86 fL (79-100) Mean Corpuscular Hemoglobin 27 pg (25-35) Mean Corpuscular Hemoglobin Concent 31 g/dL (31-37) Red Cell Distribution Width 15.6 % (11.5-14.5) Platelet Count 404 x10^3/uL (140-400) Neutrophils (%) (Auto) 71 % (31-73) Lymphocytes (%) (Auto) 22 % (24-48) Monocytes (%) (Auto) 6 % (0-9) Eosinophils (%) (Auto) 0 % (0-3) Basophils (%) (Auto) 1 % (0-3) Neutrophils # (Auto) 11.2 x10^3uL (1.8-7.7) Lymphocytes # (Auto) 3.5 x10^3/uL (1.0-4.8) Monocytes # (Auto) 0.9 x10^3/uL (0.0-1.1) Eosinophils # (Auto) 0.1 x10^3/uL (0.0-0.7) Basophils # (Auto) 0.1 x10^3/uL (0.0-0.2) Prothrombin Time 15.1 SEC (11.7-14.0) Prothromb Time International Ratio 1.3 (0.8-1.1) D-Dimer (Deandra) 2.19 ug/mlFEU (0.00-0.50) Sodium Level 136 mmol/L (136-145) Potassium Level 3.9 mmol/L (3.5-5.1) Chloride Level 94 mmol/L (98-107) Carbon Dioxide Level 38 mmol/L (21-32) Anion Gap 4 (6-14) Blood Urea Nitrogen 32 mg/dL (7-20) Creatinine 1.3 mg/dL (0.6-1.0) Estimated GFR (Cockcroft-Gault) 48.3 Glucose Level 120 mg/dL (70-99) Calcium Level 9.0 mg/dL (8.5-10.1) Magnesium Level 3.4 mg/dL (1.8-2.4) Total Bilirubin 0.3 mg/dL (0.2-1.0) Direct Bilirubin 0.2 mg/dL (0.0-0.2) Aspartate Amino Transf (AST/SGOT) 21 U/L (15-37) Alanine Aminotransferase (ALT/SGPT) 20 U/L (14-59) Alkaline Phosphatase 72 U/L (46-116) Creatine Kinase 76 U/L (26-192) Creatine Kinase MB (Mass) 0.9 ng/mL (0.0-3.6) Creatine Kinase MB Relative Index 1.2 % (0-4) Troponin I Quantitative 0.069 ng/mL (0.000-0.055) CE-Njx-C-Type Natriuretic Peptide 3261 pg/mL (0-449) Total Protein 8.7 g/dL (6.4-8.2) Albumin 2.9 g/dL (3.4-5.0) Lipase 119 U/L (73-393) Thyroid Stimulating Hormone (TSH) 1.839 uIU/mL (0.358-3.74) Laboratory Tests Test 01/29/17 11:10 White Blood Count 15.8 x10^3/uL (4.0-11.0) Red Blood Count 4.56 x10^6/uL (3.50-5.40) Hemoglobin 12.3 g/dL (12.0-15.5) Hematocrit 39.2 % (36.0-47.0) Mean Corpuscular Volume 86 fL (79-100) Mean Corpuscular Hemoglobin 27 pg (25-35) Mean Corpuscular Hemoglobin Concent 31 g/dL (31-37) Red Cell Distribution Width 15.6 % (11.5-14.5) Platelet Count 404 x10^3/uL (140-400) Neutrophils (%) (Auto) 71 % (31-73) Lymphocytes (%) (Auto) 22 % (24-48) Monocytes (%) (Auto) 6 % (0-9) Eosinophils (%) (Auto) 0 % (0-3) Basophils (%) (Auto) 1 % (0-3) Neutrophils # (Auto) 11.2 x10^3uL (1.8-7.7) Lymphocytes # (Auto) 3.5 x10^3/uL (1.0-4.8) Monocytes # (Auto) 0.9 x10^3/uL (0.0-1.1) Eosinophils # (Auto) 0.1 x10^3/uL (0.0-0.7) Basophils # (Auto) 0.1 x10^3/uL (0.0-0.2) Prothrombin Time 15.1 SEC (11.7-14.0) Prothromb Time International Ratio 1.3 (0.8-1.1) D-Dimer (Deandra) 2.19 ug/mlFEU (0.00-0.50) Sodium Level 136 mmol/L (136-145) Potassium Level 3.9 mmol/L (3.5-5.1) Chloride Level 94 mmol/L (98-107) Carbon Dioxide Level 38 mmol/L (21-32) Anion Gap 4 (6-14) Blood Urea Nitrogen 32 mg/dL (7-20) Creatinine 1.3 mg/dL (0.6-1.0) Estimated GFR (Cockcroft-Gault) 48.3 Glucose Level 120 mg/dL (70-99) Calcium Level 9.0 mg/dL (8.5-10.1) Magnesium Level 3.4 mg/dL (1.8-2.4) Total Bilirubin 0.3 mg/dL (0.2-1.0) Direct Bilirubin 0.2 mg/dL (0.0-0.2) Aspartate Amino Transf (AST/SGOT) 21 U/L (15-37) Alanine Aminotransferase (ALT/SGPT) 20 U/L (14-59) Alkaline Phosphatase 72 U/L (46-116) Creatine Kinase 76 U/L (26-192) Creatine Kinase MB (Mass) 0.9 ng/mL (0.0-3.6) Creatine Kinase MB Relative Index 1.2 % (0-4) Troponin I Quantitative 0.069 ng/mL (0.000-0.055) LV-Mhx-I-Type Natriuretic Peptide 3261 pg/mL (0-449) Total Protein 8.7 g/dL (6.4-8.2) Albumin 2.9 g/dL (3.4-5.0) Lipase 119 U/L (73-393) Thyroid Stimulating Hormone (TSH) 1.839 uIU/mL (0.358-3.74) VTE Prophylaxis Ordered VTE Prophylaxis Devices: Yes VTE Pharmacological Prophylaxi: Yes AMY MTZ MD January 29, 2017 15:41
[2017-01-29] MEDS ORDERED: VANCOMYCIN 1.5 GM in IV NORMAL SALINE 500ML BAG 500 ML IV ONE (16:00)
[2017-01-29] MEDS ORDERED: NON FORMULARY ITEM (Albuterol Sulfate (Proair Hfa Inhaler) 2 PUFF) IH SCH (16:15)
[2017-01-29] MEDS ORDERED: NON FORMULARY ITEM (Albuterol Sulfate (Albuterol Sulfate Neb Soln) 1 VIAL) NEB PRN (16:15)
[2017-01-29] MEDS ORDERED: ALPRAZolam 0.25 MG TABLET PEG PRN (16:15)
[2017-01-29] MEDS ORDERED: ONDANSETRON ODT 4 MG TAB.RAPDIS. PEG PRN (16:15)
--- NOTE | 2017-01-29 17:52 | CARD ---
APPROVED REPORT EXAM: LIMITED Two-dimensional echocardiogram. Other Information Quality : Average Rhythm : NSR INDICATION LV Function:Systolic 2D DIMENSIONS RVDd2.8 (2.9-3.5cm)Left Atrium(2D)3.0 (1.6-4.0cm) IVSd1.4 (0.7-1.1cm)Aortic Root(2D)3.1 (2.0-3.7cm) LVDd3.2 (3.9-5.9cm)PWd1.4 (0.7-1.1cm) LVDs2.1 (2.5-4.0cm)FS (%) 33.2 % SV25.7 mlLVEF(%)63.2 (>50%) LEFT VENTRICLE The left ventricle is normal size. There is mild concentric left ventricular hypertrophy. Left ventri giovanna systolic function is normal. The Ejection Fraction is 60-65%. There is normal LV segmental wall m otion. RIGHT VENTRICLE The right ventricle is normal size. The right ventricular systolic function is normal. ATRIA The left atrium size is normal. The right atrium size is normal. MITRAL VALVE Posterior mitral leaflet calcification is noted. GREAT VESSELS The aortic root is normal in size. PERICARDIAL EFFUSION There is no evidence of significant pericardial effusion. Critical Notification Critical Value: No <Conclusion> There is mild concentric left ventricular hypertrophy. Left ventricle systolic function is normal. The Ejection Fraction is 60-65%. Posterior mitral leaflet calcification is noted. Limited echo only for LVEF.
[2017-01-29] MEDS: ENOXAPARIN 40 MG/0.4 ML SYRINGE. SQ SCH (17:55)
[2017-01-29] MEDS: VANCOMYCIN PER PHARMACY MC PRN (18:35)
[2017-01-29 19:05] VITALS: BP 150/70
--- NOTE | 2017-01-29 20:20 | HP ---
ADMIT DATE: 01/29/2017 CHIEF COMPLAINT: Chest pain. HISTORY OF THE PRESENT ILLNESS: A 76-year-old female with prior history of laryngeal cancer, currently on tracheostomy and a PEG, brought to the hospital for chest pain symptoms noted this morning, described it as a left lower sternal area, lasting for a few hours. Symptoms resolved at the time of my examination. The patient was seen by primary care doctor yesterday for low saturations. The patient has been running around low 70s. However, the patient declined to come to the hospital. Most of the history is obtained from the old records and the patient's sister at bedside. Her initial EKGs showed a T-wave inversions in the AVL, and troponin was 0.06. She denies any active chest pain, palpitations, shortness of breath, or leg swellings. The patient was diagnosed with laryngeal cancer and lung cancer in 2008. From then, she has been getting chemotherapy and radiations, following with Dr. Stokes and Dr. Bennett, and as per the sister, currently she is cancer-free, taking care of her trach at home and tube feeds. 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 PAST SURGICAL HISTORY: Cataract removal, tracheostomy, and PEG placement. FAMILY HISTORY: Heart disease. PERSONAL HISTORY: No smoking, no alcohol, no drug abuse. Lives at home with sister. ALLERGIES: NKDA. REVIEW OF SYSTEMS: Please see my electronic H and P. PHYSICAL EXAMINATION: Please see my electronic H and P. LABORATORY FINDINGS: CBC: WBC 15.8, hemoglobin is 12.3, and platelets are 404. MCV is 86. Chemistry: Sodium 136, potassium 3.9, chloride is 94, carbon dioxide 38, anion gap is 4, BUN is 32, creatinine is 1.3, and troponin is 0.069. ProBNP is 3261. D-Dimer is 2.19. INR is 1.3. IMAGING STUDIES: CTA of the chest showed diffuse bilateral interstitial opacities, likely chronic interstitial changes with patchy airspace opacities. Emphysematous changes. Mediastinal lymphadenopathy. Chest x-ray with mild left lung base airspace opacity. ASSESSMENT AND PLAN: 1. Chest pain, unclear etiology, less likely acute coronary syndrome, possible gastroesophageal reflux disease related or esophageal stricture related. 2. Pneumonia, present on admission with hypoxic respiratory failure. Currently, the patient was requiring 8 to 9 liters of oxygen. 3. Hypertensive heart disease. 4. History of laryngeal cancer, on tracheostomy. 5. Increased oral secretions. 6. Dysphagia, currently on PEG tube. PLAN: 1. The patient has been started on 9 liters of oxygen for respiratory failure, and I will continue periodic nebulizations with Mucomyst, and consult Pulmonology, and also start her on IV Zosyn for now. 2. Blood cultures will be ordered. 3. Two more sets of troponins are ordered, and Cardiology will follow the patient. 4. Lovenox for DVT prophylaxis. 5. Home medications were reviewed and reconciled. 6. Prior history of MRSA. I will add vancomycin. Pharmacy to dose. 7. Tracheostomy care. 8. Tube feeds. We will consult Nutrition. Prognosis is guarded. Plan was explained to the patient's sister at bedside. AMY MTZ MD DR: SEA/sena JOB#: [id number] / [id number] CATA
[2017-01-29] MEDS: ACETYLCYSTEINE 20% 800 MG/4 ML VIAL. NEB SCH (21:00)
[2017-01-29] MEDS: oxyCODONE IR 5 MG TABLET PEG PRN (21:20)
[2017-01-29] MEDS: CYPROHEPTADINE 4 MG TABLET. PEG SCH (21:21)
[2017-01-29] MEDS: METOPROLOL TART IMMED RELEASE 25 MG TABLET. PEG SCH (21:21)
[2017-01-29] MEDS: METOCLOPRAMIDE HCL 10 MG/10 ML SOLUTION. PO SCH (21:21)
[2017-01-29] MEDS: PIPERACILLIN/TAZOBACTAM 3.375 GM in IV NORMAL SALINE 50ML 50 ML IV SCH (21:22)
[2017-01-29 23:05] VITALS: BP 153/75
[2017-01-30] MEDS: HYDROcodone/APAP 5/325MG 1 TAB TABLET PO PRN (00:14)
[2017-01-30 01:35] LABS: BASO # 0.1 x10^3/uL (0.0-0.2); BASO % 1 % (0-3); EOS % 1 % (0-3); HEMATOCRIT 40.7 % (36.0-47.0); HEMOGLOBIN 12.4 g/dL (12.0-15.5); LYMPH # 2.6 x10^3/uL (1.0-4.8); LYMPH % 23 % (24-48); MEAN CORPUSCULAR HEMOGLOBIN 27 pg (25-35); MEAN CORPUSCULAR HGB CONC 31 g/dL (31-37); MEAN CORPUSCULAR VOLUME 87 fL (79-100); MONO % 5 % (0-9); NEUT % 71 % (31-73); PLATELET COUNT 391 x10^3/uL (140-400); RED BLOOD COUNT 4.66 x10^6/uL (3.50-5.40); RED CELL DISTRIBUTION WIDTH 15.5 % (11.5-14.5); WHITE BLOOD COUNT 11.4 x10^3/uL (4.0-11.0)
[2017-01-30 02:00] LABS: CALCIUM 8.6 mg/dL (8.5-10.1); CREATININE 1.3 mg/dL (0.6-1.0); GFR 48.3
[2017-01-30] MEDS: PIPERACILLIN/TAZOBACTAM 3.375 GM in IV NORMAL SALINE 50ML 50 ML IV SCH ×4 (02:00→17:35)
[2017-01-30 03:10] VITALS: BP 155/74
[2017-01-30 04:10] LABS: CHOLESTEROL/HDL RATIO 3.3
[2017-01-30 07:00] VITALS: BP 137/60
[2017-01-30] MEDS: METOCLOPRAMIDE HCL 10 MG/10 ML SOLUTION. PO SCH ×2 (08:10→21:57)
[2017-01-30] MEDS: METOPROLOL TART IMMED RELEASE 25 MG TABLET. PEG SCH ×2 (08:11→21:58)
[2017-01-30] MEDS: CITALOPRAM 10 MG TABLET. PEG SCH (08:11)
[2017-01-30] MEDS: SACCHAROMYCES BOULARDII 250 MG CAPSULE. PEG SCH (08:11)
[2017-01-30] MEDS: ATENOLOL 25 MG TABLET. PEG SCH (08:11)
[2017-01-30] MEDS: LANSOPRAZOLE 30 MG TAB.RAP.DR FT SCH (08:12)
[2017-01-30] MEDS: CYPROHEPTADINE 4 MG TABLET. PEG SCH ×3 (08:12→21:58)
[2017-01-30] MEDS: DONEPEZIL HCL 5 MG TABLET. PEG SCH (08:12)
[2017-01-30] MEDS: LOSARTAN POTASSIUM 50 MG TABLET. PEG SCH (08:12)
[2017-01-30] MEDS: amLODIPine BESYLATE 5 MG TABLET PEG SCH (08:13)
[2017-01-30] MEDS: oxyCODONE IR 5 MG TABLET PEG PRN ×2 (08:18→18:08)
[2017-01-30] MEDS ORDERED: fentaNYL 50MCG/HR PATCH 1 PATCH PATCH.TD72 TD SCH (09:00)
[2017-01-30] MEDS: ACETYLCYSTEINE 20% 800 MG/4 ML VIAL. NEB SCH (09:00)
--- NOTE | 2017-01-30 09:57 | PDOC ---
Provider Note Provider Note dictated MARY LANIER MD January 30, 2017 09:57
--- NOTE | 2017-01-30 10:06 | PDOC ---
CARDIO Progress Notes Date and Time Date of Service 01/30/17 Time of Evaluation 1015 Subjective Subjective: No Chest Pain, No shortness of breath, Other (cough with increased secretions ) Vitals Vitals Vital Signs Date Time Temp Pulse Resp B/P (MAP) Pulse Ox O2 Delivery O2 Flow Rate FiO2 01/30/17 09:18 91 8.0 01/30/17 08:13 81 137/60 01/30/17 08:00 Trach Collar 01/30/17 07:00 97.3 20 97.3 Weight Weight [ ] Input and Output Intake and Output Intake and Output 01/30/17 07:00 Intake Total 1040 ml Output Total 600 ml Balance 440 ml Intake Oral 0 ml Tube Feeding 1040 ml Output Urine/Stool Mix 600 ml # Voids 1 Laboratory Labs Laboratory Tests Test 01/29/17 11:10 01/29/17 19:15 01/30/17 01:15 White Blood Count 15.8 x10^3/uL (4.0-11.0) 11.4 x10^3/uL (4.0-11.0) Red Blood Count 4.56 x10^6/uL (3.50-5.40) 4.66 x10^6/uL (3.50-5.40) Hemoglobin 12.3 g/dL (12.0-15.5) 12.4 g/dL (12.0-15.5) Hematocrit 39.2 % (36.0-47.0) 40.7 % (36.0-47.0) Mean Corpuscular Volume 86 fL (79-100) 87 fL (79-100) Mean Corpuscular Hemoglobin 27 pg (25-35) 27 pg (25-35) Mean Corpuscular Hemoglobin Concent 31 g/dL (31-37) 31 g/dL (31-37) Red Cell Distribution Width 15.6 % (11.5-14.5) 15.5 % (11.5-14.5) Platelet Count 404 x10^3/uL (140-400) 391 x10^3/uL (140-400) Neutrophils (%) (Auto) 71 % (31-73) 71 % (31-73) Lymphocytes (%) (Auto) 22 % (24-48) 23 % (24-48) Monocytes (%) (Auto) 6 % (0-9) 5 % (0-9) Eosinophils (%) (Auto) 0 % (0-3) 1 % (0-3) Basophils (%) (Auto) 1 % (0-3) 1 % (0-3) Neutrophils # (Auto) 11.2 x10^3uL (1.8-7.7) 8.1 x10^3uL (1.8-7.7) Lymphocytes # (Auto) 3.5 x10^3/uL (1.0-4.8) 2.6 x10^3/uL (1.0-4.8) Monocytes # (Auto) 0.9 x10^3/uL (0.0-1.1) 0.5 x10^3/uL (0.0-1.1) Eosinophils # (Auto) 0.1 x10^3/uL (0.0-0.7) 0.1 x10^3/uL (0.0-0.7) Basophils # (Auto) 0.1 x10^3/uL (0.0-0.2) 0.1 x10^3/uL (0.0-0.2) Prothrombin Time 15.1 SEC (11.7-14.0) Prothromb Time International Ratio 1.3 (0.8-1.1) D-Dimer (Deandra) 2.19 ug/mlFEU (0.00-0.50) Sodium Level 136 mmol/L (136-145) 142 mmol/L (136-145) Potassium Level 3.9 mmol/L (3.5-5.1) 4.0 mmol/L (3.5-5.1) Chloride Level 94 mmol/L (98-107) 101 mmol/L (98-107) Carbon Dioxide Level 38 mmol/L (21-32) 34 mmol/L (21-32) Anion Gap 4 (6-14) 7 (6-14) Blood Urea Nitrogen 32 mg/dL (7-20) 30 mg/dL (7-20) Creatinine 1.3 mg/dL (0.6-1.0) 1.3 mg/dL (0.6-1.0) Estimated GFR (Cockcroft-Gault) 48.3 48.3 Glucose Level 120 mg/dL (70-99) 212 mg/dL (70-99) Calcium Level 9.0 mg/dL (8.5-10.1) 8.6 mg/dL (8.5-10.1) Magnesium Level 3.4 mg/dL (1.8-2.4) Total Bilirubin 0.3 mg/dL (0.2-1.0) Direct Bilirubin 0.2 mg/dL (0.0-0.2) Aspartate Amino Transf (AST/SGOT) 21 U/L (15-37) Alanine Aminotransferase (ALT/SGPT) 20 U/L (14-59) Alkaline Phosphatase 72 U/L (46-116) Creatine Kinase 76 U/L (26-192) Creatine Kinase MB (Mass) 0.9 ng/mL (0.0-3.6) Creatine Kinase MB Relative Index 1.2 % (0-4) Troponin I Quantitative 0.069 ng/mL (0.000-0.055) 0.079 ng/mL (0.000-0.055) 0.060 ng/mL (0.000-0.055) YF-Rjn-B-Type Natriuretic Peptide 3261 pg/mL (0-449) Total Protein 8.7 g/dL (6.4-8.2) Albumin 2.9 g/dL (3.4-5.0) Lipase 119 U/L (73-393) Thyroid Stimulating Hormone (TSH) 1.839 uIU/mL (0.358-3.74) Triglycerides Level 77 mg/dL (0-150) Cholesterol Level 124 mg/dL (0-200) LDL Cholesterol, Calculated 71 mg/dL (0-100) VLDL Cholesterol, Calculated 15 mg/dL (0-40) Non-HDL Cholesterol Calculated 86 mg/dL (0-129) HDL Cholesterol 38 mg/dL (40-60) Cholesterol/HDL Ratio 3.3 Microbiology Micro Microbiology 01/29/17 Gram Stain - Final, Complete Physical Exam HEENT: Neck Supple W Full Motion, Other (trach) Chest: Symmetric LUNGS: Other (diminished bases, right pectoral port) Heart: S1S2, RRR Abdomen: Soft N/T Extremities: Other (trace bilateral LE edema ) Neurology: alert, oriented, follow commands Assessment Assessment 1. chest pain, atypical resolved; ? related to GERD or history of esophageal strictures; continue PPI. GI consulted. troponin peak 0.079; no acute changes in EKG limited echo reveals preserved LV function with an EF of 60-65% discussed further aggressive evaluation including possible stress test/ cardiac cath; patient with like to defer at this time, which is appropriate given preserved LV function and other significant comorbidities. continue medical management 2. hypertensive heart disease diastolic dysfunction on echo of 05/2016 limited echo with preserved LV function continue medications 3. 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
--- NOTE | 2017-01-30 10:38 | PDOC2 ---
GI CONSULT Reason For Consult: Chest pain, ?esophageal stricture HPI: HPI: This 76 y/o AA female known to GI. Consult requested for chest pain and concern for esophageal stricture. Cardiology and pulm also following, has been hypoxic at home (sats in 70s). PMH is significant for pharyngeal cancer s/p chemo/radiation w/ resultant dysphagia requiring PEG tube since about 2008. Additionally, she has h/o lung cancer s/p radiation and has a tracheostomy. EGD w/ PEG replacement performed by Dr. Taylor in 05/2016. Non-erosive gastritis noted. Currently denies pain. She just received oxycodone and is a bit drowsy, not providing much history. Previously pain has been noted sometimes after tube feeds. Sometimes she has nausea. Denies diarrhea, constipation, bleeding. No previous colonoscopy. No PO intake, manages feedings at home by herself. Per RN, feedings going well here, QID. RN has noticed some belching w/ flushing tube after med administration. On Prevacid QD. Additionally on Reglan w/ presumed h/o gastroparesis. In 2013, abd US and upper GI series were unremarkable (w/o obstruction and w/ normal gallbladder). Last year, CT A/P noted unchanged mild dilation of common bile and pancreatic ducts noted along with unchanged mild gallbladder wall thickening/distention were noted. HIDA recommended then; she declined. PMH: PMH: pharyngeal cancer 2008 s/p chemo/radiation, lung cancer 2009 s/p radiation, PEG tube, tracheostomy, HTN/heart disease, COPD, gastroparesis, HTN, squamous cell of pyriform sinus, OA FH: Family History: CAD Social History: ALCOHOL: none Drugs: None ROS: GEN: Denies fevers, chills, sweats HEENT: Denies blurred vision, sore throat CV: +chest pain RESP: +SOA GI: Per HPI : Denies hematuria, dysuria ENDO: Denies weight changes NEURO: Denies confusion, dizziness MSK: Denies weakness, joint pain/swelling SKIN: Denies jaundice, pruritus Vitals: Vitals: Vital Signs Date Time Temp Pulse Resp B/P (MAP) Pulse Ox O2 Delivery O2 Flow Rate FiO2 01/30/17 09:18 91 8.0 01/30/17 08:13 81 137/60 01/30/17 08:00 Trach Collar 01/30/17 07:00 97.3 20 97.3 Labs: Labs: Laboratory Tests Test 01/29/17 11:10 01/29/17 19:15 01/30/17 01:15 White Blood Count 15.8 x10^3/uL (4.0-11.0) 11.4 x10^3/uL (4.0-11.0) Red Blood Count 4.56 x10^6/uL (3.50-5.40) 4.66 x10^6/uL (3.50-5.40) Hemoglobin 12.3 g/dL (12.0-15.5) 12.4 g/dL (12.0-15.5) Hematocrit 39.2 % (36.0-47.0) 40.7 % (36.0-47.0) Mean Corpuscular Volume 86 fL (79-100) 87 fL (79-100) Mean Corpuscular Hemoglobin 27 pg (25-35) 27 pg (25-35) Mean Corpuscular Hemoglobin Concent 31 g/dL (31-37) 31 g/dL (31-37) Red Cell Distribution Width 15.6 % (11.5-14.5) 15.5 % (11.5-14.5) Platelet Count 404 x10^3/uL (140-400) 391 x10^3/uL (140-400) Neutrophils (%) (Auto) 71 % (31-73) 71 % (31-73) Lymphocytes (%) (Auto) 22 % (24-48) 23 % (24-48) Monocytes (%) (Auto) 6 % (0-9) 5 % (0-9) Eosinophils (%) (Auto) 0 % (0-3) 1 % (0-3) Basophils (%) (Auto) 1 % (0-3) 1 % (0-3) Neutrophils # (Auto) 11.2 x10^3uL (1.8-7.7) 8.1 x10^3uL (1.8-7.7) Lymphocytes # (Auto) 3.5 x10^3/uL (1.0-4.8) 2.6 x10^3/uL (1.0-4.8) Monocytes # (Auto) 0.9 x10^3/uL (0.0-1.1) 0.5 x10^3/uL (0.0-1.1) Eosinophils # (Auto) 0.1 x10^3/uL (0.0-0.7) 0.1 x10^3/uL (0.0-0.7) Basophils # (Auto) 0.1 x10^3/uL (0.0-0.2) 0.1 x10^3/uL (0.0-0.2) Prothrombin Time 15.1 SEC (11.7-14.0) Prothromb Time International Ratio 1.3 (0.8-1.1) D-Dimer (Deandra) 2.19 ug/mlFEU (0.00-0.50) Sodium Level 136 mmol/L (136-145) 142 mmol/L (136-145) Potassium Level 3.9 mmol/L (3.5-5.1) 4.0 mmol/L (3.5-5.1) Chloride Level 94 mmol/L (98-107) 101 mmol/L (98-107) Carbon Dioxide Level 38 mmol/L (21-32) 34 mmol/L (21-32) Anion Gap 4 (6-14) 7 (6-14) Blood Urea Nitrogen 32 mg/dL (7-20) 30 mg/dL (7-20) Creatinine 1.3 mg/dL (0.6-1.0) 1.3 mg/dL (0.6-1.0) Estimated GFR (Cockcroft-Gault) 48.3 48.3 Glucose Level 120 mg/dL (70-99) 212 mg/dL (70-99) Calcium Level 9.0 mg/dL (8.5-10.1) 8.6 mg/dL (8.5-10.1) Magnesium Level 3.4 mg/dL (1.8-2.4) Total Bilirubin 0.3 mg/dL (0.2-1.0) Direct Bilirubin 0.2 mg/dL (0.0-0.2) Aspartate Amino Transf (AST/SGOT) 21 U/L (15-37) Alanine Aminotransferase (ALT/SGPT) 20 U/L (14-59) Alkaline Phosphatase 72 U/L (46-116) Creatine Kinase 76 U/L (26-192) Creatine Kinase MB (Mass) 0.9 ng/mL (0.0-3.6) Creatine Kinase MB Relative Index 1.2 % (0-4) Troponin I Quantitative 0.069 ng/mL (0.000-0.055) 0.079 ng/mL (0.000-0.055) 0.060 ng/mL (0.000-0.055) KA-Law-D-Type Natriuretic Peptide 3261 pg/mL (0-449) Total Protein 8.7 g/dL (6.4-8.2) Albumin 2.9 g/dL (3.4-5.0) Lipase 119 U/L (73-393) Thyroid Stimulating Hormone (TSH) 1.839 uIU/mL (0.358-3.74) Triglycerides Level 77 mg/dL (0-150) Cholesterol Level 124 mg/dL (0-200) LDL Cholesterol, Calculated 71 mg/dL (0-100) VLDL Cholesterol, Calculated 15 mg/dL (0-40) Non-HDL Cholesterol Calculated 86 mg/dL (0-129) HDL Cholesterol 38 mg/dL (40-60) Cholesterol/HDL Ratio 3.3 Allergies: Coded Allergies: I S O L A T I O N *CONTACT* (Verified Allergy, Unknown, 11/20/16) mrsa No Known Medication Allergies (Verified Allergy, Unknown, 09/17/16) Medications: Current Medications Medications (Trade) Dose Ordered Sig/Yuliana Route PRN Reason Start Time Stop Time Status Last Admin Dose Admin Aspirin (Socorro Aspirin) 325 mg 1X ONCE PO 01/29/17 12:00 01/29/17 12:01 DC 01/29/17 12:00 Ondansetron HCl (Zofran) 4 mg PRN Q8HRS PRN IV NAUSEA/VOMITING 01/29/17 13:45 01/30/17 13:44 01/29/17 18:37 Iohexol (Omnipaque 300 Mg/ml) 60 ml 1X ONCE IV 01/29/17 14:00 01/29/17 14:04 DC 01/29/17 14:16 Pantoprazole Sodium (Protonix Vial) 40 mg 1X ONCE IVP 01/29/17 14:30 01/29/17 14:31 DC 01/29/17 17:55 Lansoprazole (Prevacid) 30 mg DAILY FT 01/30/17 09:00 01/30/17 08:12 Acetaminophen/ Hydrocodone Bitart (Lortab 5/325) 1 tab PRN Q6HRS PRN PO MODERATE TO SEVERE PAIN 01/29/17 15:15 01/30/17 00:14 Piperacillin Sod/ Tazobactam Sod 3.375 gm/Sodium Chloride 50 ml @ 100 mls/hr Q6HRS IV 01/29/17 16:00 01/30/17 06:36 Enoxaparin Sodium (Lovenox 40mg Syringe) 40 mg Q24H SQ 01/29/17 16:00 01/29/17 17:55 Vancomycin HCl (Vanco Per Pharmacy) 1 each PRN DAILY PRN MC SEE COMMENTS 01/29/17 15:45 01/29/17 18:35 Vancomycin HCl 1.5 gm/Sodium Chloride 500 ml @ 250 mls/hr 1X ONCE IV 01/29/17 16:00 01/29/17 17:59 DC 01/29/17 17:54 Amlodipine Besylate (Norvasc) 5 mg DAILY PEG 01/30/17 09:00 01/30/17 08:13 Atenolol (Tenormin) 50 mg DAILY PEG 01/30/17 09:00 01/30/17 08:11 Citalopram Hydrobromide (CeleXA) 10 mg DAILY PEG 01/30/17 09:00 01/30/17 08:11 Cyproheptadine HCl (Periactin) 2 mg TID PEG 01/29/17 21:00 01/30/17 08:12 Donepezil HCl (Aricept) 5 mg DAILY PEG 01/30/17 09:00 01/30/17 08:12 Fentanyl (Duragesic 50mcg/ Hr Patch) 1 patch Q3DAYS TD 01/30/17 09:00 01/30/17 08:18 Saccharomyces Boulardii (Florastor) 250 mg DAILY PEG 01/30/17 09:00 01/30/17 08:11 Metoclopramide HCl (Reglan) 2 mg BID PO 01/29/17 21:00 01/30/17 08:10 Metoprolol Tartrate (Lopressor) 25 mg BID PEG 01/29/17 21:00 01/30/17 08:11 Oxycodone HCl (Roxicodone) 5 mg PRN Q4HRS PRN PEG PAIN 01/29/17 16:30 01/30/17 08:18 Losartan Potassium (Cozaar) 100 mg DAILY PEG 01/30/17 09:00 01/30/17 08:12 Imaging: Imaging: Echocardiogram <Conclusion> There is mild concentric left ventricular hypertrophy. Left ventricle systolic function is normal. The Ejection Fraction is 60-65%. Posterior mitral leaflet calcification is noted. Limited echo only for LVEF. Chest CTA Impression: 1. No evidence of central pulmonary embolism. There is thinning of the of the left lower lobe segmental arterial branches in the region of the left lower lobe consolidation or mass grossly similar to prior exam could be extrinsic compression or tumor invasion or thrombus or post therapeutic changes. This is unchanged compared to prior exam. 2. Diffuse bilateral interstitial opacities likely chronic interstitial changes with patchy airspace opacities identified in the bilateral lungs with atelectasis or infiltrates due to pneumonia. 3. Emphysematous changes identified in the lungs. 4. Mediastinal lymphadenopathy similar to prior exam. CXR Impression: 1. Mild left lung base airspace opacity likely atelectasis or infiltrate grossly similar to prior exam. 2. Minimal prominent appearing bilateral interstitial lung markings similar to prior exam likely chronic. PE: GEN: NAD, sleeping HEENT: Atraumatic, PERRL LUNGS: trach collar, decreased bilaterally HEART: RRR ABD: NABS, S/ND/NT, PEG in place - tube looks old EXTREMITY: No edema SKIN: No rashes, no jaundice, right Port NEURO/PSYCH: A & O 3, drowsy A/P: A/P: ?chest/abd pain -cardiology following Hypoxia, COPD, h/o lung cancer -elevated D-dimer, no PE -trach, pulm following Dysphagia, h/o laryngeal cancer, PEG in place -replaced 05/2016 H/o gastroparesis -on Reglan Belching -noted by RN when flushing PEG tube -on Prevacid -small hiatal hernia on CT CRC screen -no previous colonoscopy -- Currently denies pain. Continue PPI and Reglan. Poor endoscopy candidate w/ hypoxia. LE ROSENTHAL January 30, 2017 10:38
[2017-01-30 11:00] VITALS: BP 121/60
--- NOTE | 2017-01-30 11:18 | CONS ---
DATE OF CONSULTATION: ATTENDING PHYSICIAN: Dr. Tran. REASON FOR CONSULTATION: Dyspnea, pneumonia, abnormal CT of the chest. HISTORY OF PRESENT ILLNESS: The patient is known to us from previous admission. 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 She was treated with radiation and chemotherapy and she then had biopsy proven reoccurrence and she underwent tracheostomy at [facility]. She has a chronic tracheostomy since then. 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 The patient was brought back to [facility] with complaint of some shortness of breath. She also had some cough with greenish sputum production through her tracheostomy tube. The patient was seen in the Emergency Room. CT of the chest was also performed, which was reviewed by me. The patient has evidence of chronic collapse involving the left lower lobe. There is also new infiltrates involving the right lower lobe and also some in the right middle lobe as well. The patient has no evidence of any pulmonary embolism. There was evidence of emphysematous changes in the lungs and mediastinal adenopathy which is similar to previous exam was noted as well. She did receive her oxycodone, so she did appear to be a bit lethargic, but she is arousable and following commands. PAST MEDICAL HISTORY: History of laryngeal cancer with recurrence, status post tracheostomy. History of squamous cell carcinoma of the lungs, status post sterotactic radiation at [facility], history of hypertension, esophageal stricture, osteoarthritis and COPD. PAST SURGICAL HISTORY: Cataract removal, tracheostomy and PEG tube. FAMILY HISTORY: Heart disease. SOCIAL HISTORY: Has a history of tobacco use for 30 years before quitting. ALLERGIES: None. CURRENT MEDICATIONS: Reviewed as listed in the MRAD including broad-spectrum antibiotic, Zosyn and vancomycin. REVIEW OF SYSTEMS: A 10-point system obtained. Pertinent positives discussed in my history of present illness, otherwise noncontributory. All systems that were negative were reviewed as well. PHYSICAL EXAMINATION: GENERAL: She is awake, following commands, but she appears lethargic. VITAL SIGNS: Blood pressure 137/60. Pulse ox ____ on 8 liters via trach shield. HEENT: Sclerae nonicteric. NECK: Supple. Trach in place. LUNGS: Diminished breath sounds. CARDIOVASCULAR: Regular ____. ABDOMEN: Soft. PEG tube is in place. EXTREMITIES: With trace pitting edema. LABORATORY DATA: Reviewed. White cell count was 15.8 on admission. Platelets 404, hemoglobin 12.3, BUN 30 and creatinine 1.3. IMPRESSION: 1. Acute on chronic hypoxic respiratory failure secondary to healthcare-associated pneumonia. 2. Abnormal CT chest with chronic collapse of the left lower lobe. This is related to her history of known cancer with post-therapeutic radiation changes. There is, however, new infiltrate seen in the right middle and right lower lobe consistent with pneumonia. There is unchanged mediastinal adenopathy. 3. History of chronic obstructive pulmonary disease. 4. 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 5. Dysphagia, currently on PEG tube. RECOMMENDATIONS: 1. Continue with broad-spectrum antibiotics. 2. Gradually wean oxygen, keeping saturation 92% and above. 3. Follow blood cultures. 4. Follow sputum cultures. 5. Lovenox for deep venous thrombosis prophylaxis. 6. Continue enteral nutrition. 7. P.r.n. tracheostomy suctioning. 8. We will follow the clinical response to antibiotics. MARY LANIER MD DR: AINSLEY/sena JOB#: [id number] / [id number] Y Castillo MD MTDD
--- NOTE | 2017-01-30 12:21 | PDOC ---
PROGRESS NOTES Chief Complaint Chief Complaint 1. CP, r.o esoph stricture, vasospasm 2. 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 Dysphagia with indwelling pEG on TF 4. 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 AOCD 6. HTN, controlled 7. Hx DVT 8. HX COPD, prev heavy smoker 9 HTN, dyslipdimeia - chronic stable 10. Hx Sepsis History of Present Illness History of Present Illness Does not complain of CP now On bolus feeding at home Lives at home with sister Verbal NOds to me CAncer free per Sister Follows with Dr. Stokes and Sabrina PEG inspected - RN cocnerned pt might be overfeeding herself? Abd tymnpanitic, non tender, positive BS PEG is brownish, not getting flushed post feedings? PLAN: Can check [facility] consult for hx esoph structure - last EGD was May per GI Supprotive care On DVT prophy Await recs from GI Dw RN and pt Turn q2/PT/OT? Vitals Vitals Vital Signs Date Time Temp Pulse Resp B/P (MAP) Pulse Ox O2 Delivery O2 Flow Rate FiO2 01/30/17 11:00 97.8 79 20 121/60 (80) 90 Tracheal Collar 8.0 97.8 Physical Exam General: No acute distress, Other (sedated) Heart: Regular rate, Normal S1, Normal S2 Lungs: Clear, Other Abdomen: Normal bowel sounds, Soft Extremities: Normal pulses, Other (trace LE edema) Skin: No rashes Labs LABS Laboratory Tests Test 01/29/17 19:15 01/30/17 01:15 Troponin I Quantitative 0.079 ng/mL (0.000-0.055) 0.060 ng/mL (0.000-0.055) White Blood Count 11.4 x10^3/uL (4.0-11.0) Red Blood Count 4.66 x10^6/uL (3.50-5.40) Hemoglobin 12.4 g/dL (12.0-15.5) Hematocrit 40.7 % (36.0-47.0) Mean Corpuscular Volume 87 fL (79-100) Mean Corpuscular Hemoglobin 27 pg (25-35) Mean Corpuscular Hemoglobin Concent 31 g/dL (31-37) Red Cell Distribution Width 15.5 % (11.5-14.5) Platelet Count 391 x10^3/uL (140-400) Neutrophils (%) (Auto) 71 % (31-73) Lymphocytes (%) (Auto) 23 % (24-48) Monocytes (%) (Auto) 5 % (0-9) Eosinophils (%) (Auto) 1 % (0-3) Basophils (%) (Auto) 1 % (0-3) Neutrophils # (Auto) 8.1 x10^3uL (1.8-7.7) Lymphocytes # (Auto) 2.6 x10^3/uL (1.0-4.8) Monocytes # (Auto) 0.5 x10^3/uL (0.0-1.1) Eosinophils # (Auto) 0.1 x10^3/uL (0.0-0.7) Basophils # (Auto) 0.1 x10^3/uL (0.0-0.2) Sodium Level 142 mmol/L (136-145) Potassium Level 4.0 mmol/L (3.5-5.1) Chloride Level 101 mmol/L (98-107) Carbon Dioxide Level 34 mmol/L (21-32) Anion Gap 7 (6-14) Blood Urea Nitrogen 30 mg/dL (7-20) Creatinine 1.3 mg/dL (0.6-1.0) Estimated GFR (Cockcroft-Gault) 48.3 Glucose Level 212 mg/dL (70-99) Calcium Level 8.6 mg/dL (8.5-10.1) Triglycerides Level 77 mg/dL (0-150) Cholesterol Level 124 mg/dL (0-200) LDL Cholesterol, Calculated 71 mg/dL (0-100) VLDL Cholesterol, Calculated 15 mg/dL (0-40) Non-HDL Cholesterol Calculated 86 mg/dL (0-129) HDL Cholesterol 38 mg/dL (40-60) Cholesterol/HDL Ratio 3.3 Review of Systems Review of Systems denies CP, Soa or abd pain, emesis, n/v Comment Review of Relevant I have reviewed the following items miko (where applicable) has been applied. Labs Laboratory Tests Test 01/29/17 11:10 01/29/17 19:15 01/30/17 01:15 White Blood Count 15.8 x10^3/uL (4.0-11.0) 11.4 x10^3/uL (4.0-11.0) Red Blood Count 4.56 x10^6/uL (3.50-5.40) 4.66 x10^6/uL (3.50-5.40) Hemoglobin 12.3 g/dL (12.0-15.5) 12.4 g/dL (12.0-15.5) Hematocrit 39.2 % (36.0-47.0) 40.7 % (36.0-47.0) Mean Corpuscular Volume 86 fL (79-100) 87 fL (79-100) Mean Corpuscular Hemoglobin 27 pg (25-35) 27 pg (25-35) Mean Corpuscular Hemoglobin Concent 31 g/dL (31-37) 31 g/dL (31-37) Red Cell Distribution Width 15.6 % (11.5-14.5) 15.5 % (11.5-14.5) Platelet Count 404 x10^3/uL (140-400) 391 x10^3/uL (140-400) Neutrophils (%) (Auto) 71 % (31-73) 71 % (31-73) Lymphocytes (%) (Auto) 22 % (24-48) 23 % (24-48) Monocytes (%) (Auto) 6 % (0-9) 5 % (0-9) Eosinophils (%) (Auto) 0 % (0-3) 1 % (0-3) Basophils (%) (Auto) 1 % (0-3) 1 % (0-3) Neutrophils # (Auto) 11.2 x10^3uL (1.8-7.7) 8.1 x10^3uL (1.8-7.7) Lymphocytes # (Auto) 3.5 x10^3/uL (1.0-4.8) 2.6 x10^3/uL (1.0-4.8) Monocytes # (Auto) 0.9 x10^3/uL (0.0-1.1) 0.5 x10^3/uL (0.0-1.1) Eosinophils # (Auto) 0.1 x10^3/uL (0.0-0.7) 0.1 x10^3/uL (0.0-0.7) Basophils # (Auto) 0.1 x10^3/uL (0.0-0.2) 0.1 x10^3/uL (0.0-0.2) Prothrombin Time 15.1 SEC (11.7-14.0) Prothromb Time International Ratio 1.3 (0.8-1.1) D-Dimer (Deandra) 2.19 ug/mlFEU (0.00-0.50) Sodium Level 136 mmol/L (136-145) 142 mmol/L (136-145) Potassium Level 3.9 mmol/L (3.5-5.1) 4.0 mmol/L (3.5-5.1) Chloride Level 94 mmol/L (98-107) 101 mmol/L (98-107) Carbon Dioxide Level 38 mmol/L (21-32) 34 mmol/L (21-32) Anion Gap 4 (6-14) 7 (6-14) Blood Urea Nitrogen 32 mg/dL (7-20) 30 mg/dL (7-20) Creatinine 1.3 mg/dL (0.6-1.0) 1.3 mg/dL (0.6-1.0) Estimated GFR (Cockcroft-Gault) 48.3 48.3 Glucose Level 120 mg/dL (70-99) 212 mg/dL (70-99) Calcium Level 9.0 mg/dL (8.5-10.1) 8.6 mg/dL (8.5-10.1) Magnesium Level 3.4 mg/dL (1.8-2.4) Total Bilirubin 0.3 mg/dL (0.2-1.0) Direct Bilirubin 0.2 mg/dL (0.0-0.2) Aspartate Amino Transf (AST/SGOT) 21 U/L (15-37) Alanine Aminotransferase (ALT/SGPT) 20 U/L (14-59) Alkaline Phosphatase 72 U/L (46-116) Creatine Kinase 76 U/L (26-192) Creatine Kinase MB (Mass) 0.9 ng/mL (0.0-3.6) Creatine Kinase MB Relative Index 1.2 % (0-4) Troponin I Quantitative 0.069 ng/mL (0.000-0.055) 0.079 ng/mL (0.000-0.055) 0.060 ng/mL (0.000-0.055) EF-Yzx-L-Type Natriuretic Peptide 3261 pg/mL (0-449) Total Protein 8.7 g/dL (6.4-8.2) Albumin 2.9 g/dL (3.4-5.0) Lipase 119 U/L (73-393) Thyroid Stimulating Hormone (TSH) 1.839 uIU/mL (0.358-3.74) Triglycerides Level 77 mg/dL (0-150) Cholesterol Level 124 mg/dL (0-200) LDL Cholesterol, Calculated 71 mg/dL (0-100) VLDL Cholesterol, Calculated 15 mg/dL (0-40) Non-HDL Cholesterol Calculated 86 mg/dL (0-129) HDL Cholesterol 38 mg/dL (40-60) Cholesterol/HDL Ratio 3.3 Laboratory Tests Test 01/29/17 19:15 01/30/17 01:15 Troponin I Quantitative 0.079 ng/mL (0.000-0.055) 0.060 ng/mL (0.000-0.055) White Blood Count 11.4 x10^3/uL (4.0-11.0) Red Blood Count 4.66 x10^6/uL (3.50-5.40) Hemoglobin 12.4 g/dL (12.0-15.5) Hematocrit 40.7 % (36.0-47.0) Mean Corpuscular Volume 87 fL (79-100) Mean Corpuscular Hemoglobin 27 pg (25-35) Mean Corpuscular Hemoglobin Concent 31 g/dL (31-37) Red Cell Distribution Width 15.5 % (11.5-14.5) Platelet Count 391 x10^3/uL (140-400) Neutrophils (%) (Auto) 71 % (31-73) Lymphocytes (%) (Auto) 23 % (24-48) Monocytes (%) (Auto) 5 % (0-9) Eosinophils (%) (Auto) 1 % (0-3) Basophils (%) (Auto) 1 % (0-3) Neutrophils # (Auto) 8.1 x10^3uL (1.8-7.7) Lymphocytes # (Auto) 2.6 x10^3/uL (1.0-4.8) Monocytes # (Auto) 0.5 x10^3/uL (0.0-1.1) Eosinophils # (Auto) 0.1 x10^3/uL (0.0-0.7) Basophils # (Auto) 0.1 x10^3/uL (0.0-0.2) Sodium Level 142 mmol/L (136-145) Potassium Level 4.0 mmol/L (3.5-5.1) Chloride Level 101 mmol/L (98-107) Carbon Dioxide Level 34 mmol/L (21-32) Anion Gap 7 (6-14) Blood Urea Nitrogen 30 mg/dL (7-20) Creatinine 1.3 mg/dL (0.6-1.0) Estimated GFR (Cockcroft-Gault) 48.3 Glucose Level 212 mg/dL (70-99) Calcium Level 8.6 mg/dL (8.5-10.1) Triglycerides Level 77 mg/dL (0-150) Cholesterol Level 124 mg/dL (0-200) LDL Cholesterol, Calculated 71 mg/dL (0-100) VLDL Cholesterol, Calculated 15 mg/dL (0-40) Non-HDL Cholesterol Calculated 86 mg/dL (0-129) HDL Cholesterol 38 mg/dL (40-60) Cholesterol/HDL Ratio 3.3 Microbiology 01/29/17 Gram Stain - Final, Complete Medications Current Medications Aspirin ([place]orro Aspirin) 325 mg 1X ONCE PO Last administered on 01/29/17 12:00 ; Start 01/29/17 at 12:00; Stop 01/29/17 at 12:01; Status DC Ondansetron HCl (Zofran) 4 mg PRN Q8HRS PRN IV NAUSEA/VOMITING Last administered on 01/29/17 18:37; Start 01/29/17 at 13:45; Stop 01/30/17 at 13:44 Iohexol (Omnipaque 300 Mg/ml) 60 ml 1X ONCE IV Last administered on 01/29/17 14:16; Start 01/29/17 at 14:00; Stop 01/29/17 at 14:04; Status DC Info (Do NOT chart on this entry -- for MONITORING) 1 each PRN DAILY PRN MC SEE COMMENTS; Start 01/29/17 at 14:15; Stop 01/31/17 at 14:14 Pantoprazole Sodium (Protonix Vial) 40 mg 1X ONCE IVP Last administered on 17:55; Start 01/29/17 at 14:30; Stop 01/29/17 at 14:31; Status DC Lansoprazole (Prevacid) 30 mg DAILY FT Last administered on 01/30/17 08:12; Start 01/30/17 at 09:00 Acetaminophen (Tylenol) 325 mg PRN Q6HRS PRN PO MILD PAIN / TEMP; Start at 15:15 Acetaminophen/ Hydrocodone Bitart (Lortab 5/325) 1 tab PRN Q6HRS PRN PO MODERATE TO SEVERE PAIN Last administered on 01/30/17 00:14; Start 01/29/17 at 15:15 Hydralazine HCl (Apresoline) 10 mg PRN Q4HRS PRN IVP ELEVATED BP, SEE COMMENTS ; Start 01/29/17 at 15:15 Albuterol Sulfate (Ventolin Neb Soln) 2.5 mg PRN Q4HRS PRN NEB SHORTNESS OF BREATH; Start 01/29/17 at 15:15 Piperacillin Sod/ Tazobactam Sod 3.375 gm/Sodium Chloride 50 ml @ 100 mls/hr Q6HRS IV Last administered on 01/30/17 06:36; Start 01/29/17 at 16:00 Enoxaparin Sodium (Lovenox 40mg Syringe) 40 mg Q24H SQ Last administered on 17:55; Start 01/29/17 at 16:00 Vancomycin HCl (Vanco Per Pharmacy) 1 each PRN DAILY PRN MC SEE COMMENTS Last administered on 01/29/17 18:35; Start 01/29/17 at 15:45 Acetylcysteine (Mucomyst 20%) 600 mg BID NEB ; Start 01/29/17 at 21:00; Stop at 20:59 Vancomycin HCl 1.5 gm/Sodium Chloride 500 ml @ 250 mls/hr 1X ONCE IV Last administered on 01/29/17 17:54; Start 01/29/17 at 16:00; Stop 01/29/17 at 17:59 ; Status DC Alprazolam (Xanax) 0.25 mg DAILY PRN PEG ANXIETY / AGITATION; Start 01/29/17 at 16:15 Amlodipine Besylate (Norvasc) 5 mg DAILY PEG Last administered on 01/30/17 08: 13; Start 01/30/17 at 09:00 Atenolol (Tenormin) 50 mg DAILY PEG Last administered on 01/30/17 08:11; Start 01/30/17 at 09:00 Citalopram Hydrobromide (CeleXA) 10 mg DAILY PEG Last administered on 08:11; Start 01/30/17 at 09:00 Cyproheptadine HCl (Periactin) 2 mg TID PEG Last administered on 01/30/17 08: 12; Start 01/29/17 at 21:00 Donepezil HCl (Aricept) 5 mg DAILY PEG Last administered on 01/30/17 08:12; Start 01/30/17 at 09:00 Fentanyl (Duragesic 50mcg/ Hr Patch) 1 patch Q3DAYS TD Last administered on 08:18; Start 01/30/17 at 09:00 Ondansetron HCl (Zofran Odt) 4 mg QIDPRN PRN PEG NAUSEA/VOMITING; Start at 16:15 Saccharomyces Boulardii (Florastor) 250 mg DAILY PEG Last administered on 08:11; Start 01/30/17 at 09:00 Non-Formulary Medication 1 vial PRN PRN NEB SHORTNESS OF BREATH; Start 01/29/17 at 16:15; Status UNV Non-Formulary Medication 2 puff PRN Q4-6HRS IH ; Start 01/29/17 at 16:15; Status UNV Metoclopramide HCl (Reglan) 2 mg BID PO Last administered on 01/30/17 08:10; Start 01/29/17 at 21:00 Metoprolol Tartrate (Lopressor) 25 mg BID PEG Last administered on 01/30/17 08 :11; Start 01/29/17 at 21:00 Oxycodone HCl (Roxicodone) 5 mg PRN Q4HRS PRN PEG PAIN Last administered on 08:18; Start 01/29/17 at 16:30 Losartan Potassium (Cozaar) 100 mg DAILY PEG Last administered on 01/30/17t 08: 12; Start 01/30/17 at 09:00 Active Scripts Active Atenolol 25 Mg Tablet 50 Mg PEG DAILY Amlodipine Besylate 5 Mg Tablet 5 Mg PEG DAILY Reported Bystolic (Nebivolol) 5 Mg Tablet 5 Mg PO DAILY Oxycodone Hcl 5 Mg/5 Ml Solution 5 Mg PEG Q 4HRS PRN PAIN PRN Aricept (Donepezil Hcl) 5 Mg Tablet 5 Mg PEG DAILY Proair Hfa Inhaler (Albuterol Sulfate) 8.5 Gm Hfa.aer.ad 2 Puff IH PRN Q4-6HRS Albuterol Sulfate Neb Soln (Albuterol Sulfate) 0.63 Mg/3 Ml Vial.neb 1 Vial NEB PRN PRN Florastor (Saccharomyces Boulardii) 250 Mg Capsule 250 Mg PEG DAILY FENTANYL 50mcg/hr (Fentanyl) 1 Each Patch.td72 1 Patch TP Q3DAYS Xanax (Alprazolam) 0.25 Mg Tablet 0.25 Mg PEG DAILY PRN Citalopram Hbr (Citalopram Hydrobromide) 10 Mg Tablet 1 Tab PEG DAILY Ondansetron Odt (Ondansetron) 4 Mg Tab.rapdis 4 Mg PEG QIDPRN PRN Metoclopramide Hcl 5 Mg/5 Ml Solution 2 Mg PEG TID Cyproheptadine Hcl 4 Mg Tablet 2 Mg PEG TID Diovan (Valsartan) 160 Mg Tablet 160 Mg PEG DAILY Vitals/I & O Vital Sign - Last 24 Hours 01/29/17 01/29/17 01/29/17 01/29/17 13:00 13:47 15:14 15:14 Temp 97.7 97.7 97.7 97.7 Pulse 80 82 81 81 Resp 20 20 18 18 B/P (MAP) 110/57 (74) 141/66 (91) 150/67 (94) 150/67 (94) Pulse Ox 96 94 100 100 01/29/17 01/29/17 01/29/17 01/29/17 16:38 19:05 20:00 21:21 Temp 98.6 98.6 Pulse 104 104 Resp 24 B/P (MAP) 150/70 (96) 150/70 Pulse Ox 93 O2 Delivery Trach Collar Tracheal Collar Trach Collar O2 Flow Rate 8.0 8.0 01/29/17 01/30/17 01/30/17 01/30/17 23:05 03:10 07:00 08:00 Temp 97.7 96.6 97.3 97.7 96.6 97.3 Pulse 86 80 81 Resp 24 24 20 B/P (MAP) 153/75 (101) 155/74 (101) 137/60 (85) Pulse Ox 96 93 91 O2 Delivery Tracheal Collar Tracheal Collar Tracheal Collar Trach Collar O2 Flow Rate 8.0 8.0 8.0 8.0 01/30/17 01/30/17 01/30/17 01/30/17 08:11 08:11 08:12 08:13 Pulse 81 81 81 81 B/P (MAP) 137/60 137/60 137/60 137/60 01/30/17 01/30/17 01/30/17 01/30/17 08:18 08:18 09:18 11:00 Temp 97.8 97.8 Pulse 79 Resp 20 B/P (MAP) 121/60 (80) Pulse Ox 91 91 91 90 O2 Delivery Tracheal Collar O2 Flow Rate 8.0 8.0 8.0 8.0 Intake and Output 01/29/17 01/29/17 01/30/17 15:00 23:00 07:00 Intake Total 560 ml 480 ml Output Total 600 ml Balance 560 ml -120 ml HEAVEN KRAUS MD January 30, 2017 12:21
[2017-01-30] MEDS: VANCOMYCIN PER PHARMACY MC PRN (14:08)
[2017-01-30 15:00] VITALS: BP 142/69
[2017-01-30] MEDS: ONDANSETRON PF 4 MG/2 ML VIAL. IV PRN (16:08)
[2017-01-30] MEDS: ENOXAPARIN 40 MG/0.4 ML SYRINGE. SQ SCH (16:12)
--- NOTE | 2017-01-30 16:47 | RAD ---
Portable abdomen, 01/30/2017: History: Constipation Comparison is made to a study from 03/09/2015. A tube overlying the mid abdomen presumably represents a gastrostomy tube. There are coarse pelvic calcifications related to a fibroid uterus. There is contrast material in the urinary tract from yesterdays CT chest exam. Gas is present in large and small bowel in a nonspecific pattern. There is no evidence of organomegaly. Moderate aortoiliac calcific plaquing is present. Mild degenerative changes are present in the spine. IMPRESSION: 1. No acute abdominal abnormality is detected. 2. Calcified uterine fibroids.
[2017-01-30] MEDS: VANCOMYCIN 1.25 GM in IV NORMAL SALINE 250ML 250 ML IV SCH (17:37)
[2017-01-30 19:15] VITALS: BP 127/76
[2017-01-30 23:15] VITALS: BP 145/61
[2017-01-31] MEDS: PIPERACILLIN/TAZOBACTAM 3.375 GM in IV NORMAL SALINE 50ML 50 ML IV SCH ×5 (01:00→22:58)
[2017-01-31 03:15] VITALS: BP 155/76
[2017-01-31 07:00] VITALS: BP 156/76
[2017-01-31] MEDS: DONEPEZIL HCL 5 MG TABLET. PEG SCH (08:17)
[2017-01-31] MEDS: SACCHAROMYCES BOULARDII 250 MG CAPSULE. PEG SCH (08:17)
[2017-01-31] MEDS: CYPROHEPTADINE 4 MG TABLET. PEG SCH ×5 (08:17→22:51)
[2017-01-31] MEDS: METOPROLOL TART IMMED RELEASE 25 MG TABLET. PEG SCH ×2 (08:18→22:53)
[2017-01-31] MEDS: LANSOPRAZOLE 30 MG TAB.RAP.DR FT SCH (08:18)
[2017-01-31] MEDS: CITALOPRAM 10 MG TABLET. PEG SCH (08:18)
[2017-01-31] MEDS: amLODIPine BESYLATE 5 MG TABLET PEG SCH (08:19)
[2017-01-31] MEDS: LOSARTAN POTASSIUM 50 MG TABLET. PEG SCH (08:20)
[2017-01-31] MEDS: ATENOLOL 25 MG TABLET. PEG SCH (08:20)
[2017-01-31] MEDS: METOCLOPRAMIDE HCL 10 MG/10 ML SOLUTION. PO SCH ×2 (08:21→22:51)
[2017-01-31] MEDS: oxyCODONE IR 5 MG TABLET PEG PRN ×2 (08:30→22:52)
[2017-01-31 10:48] VITALS: BP 116/60
--- NOTE | 2017-01-31 10:54 | PDOC ---
PULMONARY PROGRESS NOTES Subjective no soa Vitals Vital Signs Date Time Temp Pulse Resp B/P (MAP) Pulse Ox O2 Delivery O2 Flow Rate FiO2 01/31/17 10:48 97.5 72 16 116/60 (78) 91 Tracheal Collar 8.0 97.5 General: Alert, No acute distress Lungs: Other (decrease bs) Cardiovascular: S1, S2 Abdomen: Soft, Non-tender, Other Extremities: No Edema Skin: Warm Labs Laboratory Tests Test 01/29/17 11:10 01/29/17 19:15 01/30/17 01:15 White Blood Count 15.8 x10^3/uL (4.0-11.0) 11.4 x10^3/uL (4.0-11.0) Red Blood Count 4.56 x10^6/uL (3.50-5.40) 4.66 x10^6/uL (3.50-5.40) Hemoglobin 12.3 g/dL (12.0-15.5) 12.4 g/dL (12.0-15.5) Hematocrit 39.2 % (36.0-47.0) 40.7 % (36.0-47.0) Mean Corpuscular Volume 86 fL (79-100) 87 fL (79-100) Mean Corpuscular Hemoglobin 27 pg (25-35) 27 pg (25-35) Mean Corpuscular Hemoglobin Concent 31 g/dL (31-37) 31 g/dL (31-37) Red Cell Distribution Width 15.6 % (11.5-14.5) 15.5 % (11.5-14.5) Platelet Count 404 x10^3/uL (140-400) 391 x10^3/uL (140-400) Neutrophils (%) (Auto) 71 % (31-73) 71 % (31-73) Lymphocytes (%) (Auto) 22 % (24-48) 23 % (24-48) Monocytes (%) (Auto) 6 % (0-9) 5 % (0-9) Eosinophils (%) (Auto) 0 % (0-3) 1 % (0-3) Basophils (%) (Auto) 1 % (0-3) 1 % (0-3) Neutrophils # (Auto) 11.2 x10^3uL (1.8-7.7) 8.1 x10^3uL (1.8-7.7) Lymphocytes # (Auto) 3.5 x10^3/uL (1.0-4.8) 2.6 x10^3/uL (1.0-4.8) Monocytes # (Auto) 0.9 x10^3/uL (0.0-1.1) 0.5 x10^3/uL (0.0-1.1) Eosinophils # (Auto) 0.1 x10^3/uL (0.0-0.7) 0.1 x10^3/uL (0.0-0.7) Basophils # (Auto) 0.1 x10^3/uL (0.0-0.2) 0.1 x10^3/uL (0.0-0.2) Prothrombin Time 15.1 SEC (11.7-14.0) Prothromb Time International Ratio 1.3 (0.8-1.1) D-Dimer (Deandra) 2.19 ug/mlFEU (0.00-0.50) Sodium Level 136 mmol/L (136-145) 142 mmol/L (136-145) Potassium Level 3.9 mmol/L (3.5-5.1) 4.0 mmol/L (3.5-5.1) Chloride Level 94 mmol/L (98-107) 101 mmol/L (98-107) Carbon Dioxide Level 38 mmol/L (21-32) 34 mmol/L (21-32) Anion Gap 4 (6-14) 7 (6-14) Blood Urea Nitrogen 32 mg/dL (7-20) 30 mg/dL (7-20) Creatinine 1.3 mg/dL (0.6-1.0) 1.3 mg/dL (0.6-1.0) Estimated GFR (Cockcroft-Gault) 48.3 48.3 Glucose Level 120 mg/dL (70-99) 212 mg/dL (70-99) Calcium Level 9.0 mg/dL (8.5-10.1) 8.6 mg/dL (8.5-10.1) Magnesium Level 3.4 mg/dL (1.8-2.4) Total Bilirubin 0.3 mg/dL (0.2-1.0) Direct Bilirubin 0.2 mg/dL (0.0-0.2) Aspartate Amino Transf (AST/SGOT) 21 U/L (15-37) Alanine Aminotransferase (ALT/SGPT) 20 U/L (14-59) Alkaline Phosphatase 72 U/L (46-116) Creatine Kinase 76 U/L (26-192) Creatine Kinase MB (Mass) 0.9 ng/mL (0.0-3.6) Creatine Kinase MB Relative Index 1.2 % (0-4) Troponin I Quantitative 0.069 ng/mL (0.000-0.055) 0.079 ng/mL (0.000-0.055) 0.060 ng/mL (0.000-0.055) LY-Hdx-X-Type Natriuretic Peptide 3261 pg/mL (0-449) Total Protein 8.7 g/dL (6.4-8.2) Albumin 2.9 g/dL (3.4-5.0) Lipase 119 U/L (73-393) Thyroid Stimulating Hormone (TSH) 1.839 uIU/mL (0.358-3.74) Triglycerides Level 77 mg/dL (0-150) Cholesterol Level 124 mg/dL (0-200) LDL Cholesterol, Calculated 71 mg/dL (0-100) VLDL Cholesterol, Calculated 15 mg/dL (0-40) Non-HDL Cholesterol Calculated 86 mg/dL (0-129) HDL Cholesterol 38 mg/dL (40-60) Cholesterol/HDL Ratio 3.3 Medications Active Scripts Medications Dose Route/Sig Max Daily Dose Days Date Category Bystolic (Nebivolol) 5 Mg Tablet 5 Mg PO DAILY 09/17/16 Reported Atenolol 25 Mg Tablet 50 Mg PEG DAILY 06/05/16 Rx Amlodipine Besylate 5 Mg Tablet 5 Mg PEG DAILY 06/05/16 Rx Oxycodone Hcl 5 Mg/5 Ml Solution 5 Mg PEG Q 4HRS PRN PAIN PRN 09/10/15 Reported Aricept (Donepezil Hcl) 5 Mg Tablet 5 Mg PEG DAILY 08/16/15 Reported Proair Hfa Inhaler (Albuterol Sulfate) 8.5 Gm Hfa.aer.ad 2 Puff IH PRN Q4-6HRS 08/16/15 Reported Albuterol Sulfate Neb Soln (Albuterol Sulfate) 0.63 Mg/3 Ml Vial.neb 1 Vial NEB PRN PRN 06/19/14 Reported Florastor (Saccharomyces Boulardii) 250 Mg Capsule 250 Mg PEG DAILY 06/19/14 Reported FENTANYL 50mcg/hr (Fentanyl) 1 Each Patch.td72 1 Patch TP Q3DAYS 06/19/14 Reported Xanax (Alprazolam) 0.25 Mg Tablet 0.25 Mg PEG DAILY PRN 06/19/14 Reported Citalopram Hbr (Citalopram Hydrobromide) 10 Mg Tablet 1 Tab PEG DAILY 06/19/14 Reported Ondansetron Odt (Ondansetron) 4 Mg Tab.rapdis 4 Mg PEG QIDPRN PRN 06/19/14 Reported Metoclopramide Hcl 5 Mg/5 Ml Solution 2 Mg PEG TID 12/02/13 Reported Cyproheptadine Hcl 4 Mg Tablet 2 Mg PEG TID 12/02/13 Reported Diovan (Valsartan) 160 Mg Tablet 160 Mg PEG DAILY 12/02/13 Reported Impression . 1. Acute on chronic hypoxic respiratory failure secondary to healthcare-associated pneumonia. 2. Abnormal CT chest with chronic collapse of the left lower lobe. This is related to her history of known cancer with post-therapeutic radiation changes. There is, however, new infiltrate seen in the right middle and right lower lobe consistent with pneumonia. There is unchanged mediastinal adenopathy. 3. History of chronic obstructive pulmonary disease. 4. 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 5. Dysphagia, currently on PEG tube. Plan . 1. Continue with broad-spectrum antibiotics. 2. Gradually wean oxygen, keeping saturation 92% and above. 3. Follow blood cultures. 4. Follow sputum cultures. 5. Lovenox for deep venous thrombosis prophylaxis. 6. Continue enteral nutrition. 7. P.r.n. tracheostomy suctioning. 8. We will follow the clinical response to antibiotics. MARY LANIER MD January 31, 2017 10:54
--- NOTE | 2017-01-31 13:53 | PDOC ---
PROGRESS NOTES Chief Complaint Chief Complaint 1. CP, r.o esoph stricture, vasospasm 2. 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 Dysphagia with indwelling pEG on TF 4. 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 AOCD 6. HTN, controlled 7. Hx DVT 8. HX COPD, prev heavy smoker 9 HTN, dyslipdimeia - chronic stable 10. Hx Sepsis History of Present Illness History of Present Illness On iV zosyn NO white ct, no fevers Pt does not voice any complaints PLanned for Home with her current set up EARLIER ENTRY: Does not complain of CP now On bolus feeding at home Lives at home with sister Verbal NOds to me CAncer free per Sister Follows with Dr. Stokes and Sabrina castro - RN cocnerned pt might be overfeeding herself? Abd tymnpanitic, non tender, positive BS PEG is brownish, not getting flushed post feedings? PLAN: No GI plans COnt IV zosyn Check labs rakes[place] I believe if ok i can dc home ra[place] if ok with pulmo Vitals Vitals Vital Signs Date Time Temp Pulse Resp B/P (MAP) Pulse Ox O2 Delivery O2 Flow Rate FiO2 01/31/17 10:48 97.5 72 16 116/60 (78) 91 Tracheal Collar 8.0 97.5 Physical Exam General: No acute distress, Other (sedated) Heart: Regular rate, Normal S1, Normal S2 Lungs: Other (decrease bs) Abdomen: Normal bowel sounds, Soft Extremities: Normal pulses, Other (trace LE edema) Skin: No rashes Review of Systems Review of Systems denies 14 pt Comment Review of Relevant I have reviewed the following items miko (where applicable) has been applied. Labs Laboratory Tests Test 01/29/17 19:15 01/30/17 01:15 Troponin I Quantitative 0.079 ng/mL (0.000-0.055) 0.060 ng/mL (0.000-0.055) White Blood Count 11.4 x10^3/uL (4.0-11.0) Red Blood Count 4.66 x10^6/uL (3.50-5.40) Hemoglobin 12.4 g/dL (12.0-15.5) Hematocrit 40.7 % (36.0-47.0) Mean Corpuscular Volume 87 fL (79-100) Mean Corpuscular Hemoglobin 27 pg (25-35) Mean Corpuscular Hemoglobin Concent 31 g/dL (31-37) Red Cell Distribution Width 15.5 % (11.5-14.5) Platelet Count 391 x10^3/uL (140-400) Neutrophils (%) (Auto) 71 % (31-73) Lymphocytes (%) (Auto) 23 % (24-48) Monocytes (%) (Auto) 5 % (0-9) Eosinophils (%) (Auto) 1 % (0-3) Basophils (%) (Auto) 1 % (0-3) Neutrophils # (Auto) 8.1 x10^3uL (1.8-7.7) Lymphocytes # (Auto) 2.6 x10^3/uL (1.0-4.8) Monocytes # (Auto) 0.5 x10^3/uL (0.0-1.1) Eosinophils # (Auto) 0.1 x10^3/uL (0.0-0.7) Basophils # (Auto) 0.1 x10^3/uL (0.0-0.2) Sodium Level 142 mmol/L (136-145) Potassium Level 4.0 mmol/L (3.5-5.1) Chloride Level 101 mmol/L (98-107) Carbon Dioxide Level 34 mmol/L (21-32) Anion Gap 7 (6-14) Blood Urea Nitrogen 30 mg/dL (7-20) Creatinine 1.3 mg/dL (0.6-1.0) Estimated GFR (Cockcroft-Gault) 48.3 Glucose Level 212 mg/dL (70-99) Calcium Level 8.6 mg/dL (8.5-10.1) Triglycerides Level 77 mg/dL (0-150) Cholesterol Level 124 mg/dL (0-200) LDL Cholesterol, Calculated 71 mg/dL (0-100) VLDL Cholesterol, Calculated 15 mg/dL (0-40) Non-HDL Cholesterol Calculated 86 mg/dL (0-129) HDL Cholesterol 38 mg/dL (40-60) Cholesterol/HDL Ratio 3.3 Microbiology 01/29/17 Gram Stain - Final, Complete Medications Current Medications Aspirin ([place] Aspirin) 325 mg 1X ONCE PO Last administered on 5/18/17at 12:00 ; Start 01/29/17 at 12:00; Stop 01/29/17 at 12:01; Status DC Ondansetron HCl (Zofran) 4 mg PRN Q8HRS PRN IV NAUSEA/VOMITING Last administered on 01/29/17 18:37; Start 01/29/17 at 13:45; Stop 01/30/17 at 13:44 ; Status DC Iohexol (Omnipaque 300 Mg/ml) 60 ml 1X ONCE IV Last administered on 01/29/17 14:16; Start 01/29/17 at 14:00; Stop 01/29/17 at 14:04; Status DC Info (Do NOT chart on this entry -- for MONITORING) 1 each PRN DAILY PRN MC SEE COMMENTS; Start 01/29/17 at 14:15; Stop 01/31/17 at 14:14 Pantoprazole Sodium (Protonix Vial) 40 mg 1X ONCE IVP Last administered on 17:55; Start 01/29/17 at 14:30; Stop 01/29/17 at 14:31; Status DC Lansoprazole (Prevacid) 30 mg DAILY FT Last administered on 01/31/17 08:18; Start 01/30/17 at 09:00 Acetaminophen (Tylenol) 325 mg PRN Q6HRS PRN PO MILD PAIN / TEMP; Start at 15:15 Acetaminophen/ Hydrocodone Bitart (Lortab 5/325) 1 tab PRN Q6HRS PRN PO MODERATE PAIN Last administered on 01/30/17 00:14; Start 01/29/17 at 15:15 Hydralazine HCl (Apresoline) 10 mg PRN Q4HRS PRN IVP ELEVATED BP, SEE COMMENTS ; Start 01/29/17 at 15:15 Albuterol Sulfate (Ventolin Neb Soln) 2.5 mg PRN Q4HRS PRN NEB SHORTNESS OF BREATH; Start 01/29/17 at 15:15 Piperacillin Sod/ Tazobactam Sod 3.375 gm/Sodium Chloride 50 ml @ 100 mls/hr Q6HRS IV Last administered on 01/31/17 12:41; Start 01/29/17 at 16:00 Enoxaparin Sodium (Lovenox 40mg Syringe) 40 mg Q24H SQ Last administered on 16:12; Start 01/29/17 at 16:00 Vancomycin HCl (Vanco Per Pharmacy) 1 each PRN DAILY PRN MC SEE COMMENTS Last administered on 01/30/17 14:08; Start 01/29/17 at 15:45 Acetylcysteine (Mucomyst 20%) 600 mg BID NEB ; Start 01/29/17 at 21:00; Stop at 20:59; Status DC Vancomycin HCl 1.5 gm/Sodium Chloride 500 ml @ 250 mls/hr 1X ONCE IV Last administered on 01/29/17 17:54; Start 01/29/17 at 16:00; Stop 01/29/17 at 17:59 ; Status DC Alprazolam (Xanax) 0.25 mg DAILY PRN PEG ANXIETY / AGITATION; Start 01/29/17 at 16:15 Amlodipine Besylate (Norvasc) 5 mg DAILY PEG Last administered on 01/31/17 08: 19; Start 01/30/17 at 09:00 Atenolol (Tenormin) 50 mg DAILY PEG Last administered on 01/31/17 08:20; Start 01/30/17 at 09:00 Citalopram Hydrobromide (CeleXA) 10 mg DAILY PEG Last administered on 08:18; Start 01/30/17 at 09:00 Cyproheptadine HCl (Periactin) 2 mg TID PEG Last administered on 01/31/17 12: 42; Start 01/29/17 at 21:00 Donepezil HCl (Aricept) 5 mg DAILY PEG Last administered on 01/31/17 08:17; Start 01/30/17 at 09:00 Fentanyl (Duragesic 50mcg/ Hr Patch) 1 patch Q3DAYS TD Last administered on 08:18; Start 01/30/17 at 09:00 Ondansetron HCl (Zofran Odt) 4 mg QIDPRN PRN PEG NAUSEA/VOMITING; Start at 16:15 Saccharomyces Boulardii (Florastor) 250 mg DAILY PEG Last administered on 08:17; Start 01/30/17 at 09:00 Non-Formulary Medication 1 vial PRN PRN NEB SHORTNESS OF BREATH; Start 01/29/17 at 16:15; Status UNV Non-Formulary Medication 2 puff PRN Q4-6HRS IH ; Start 01/29/17 at 16:15; Status UNV Metoclopramide HCl (Reglan) 2 mg BID PO Last administered on 01/31/17 08:21; Start 01/29/17 at 21:00 Metoprolol Tartrate (Lopressor) 25 mg BID PEG Last administered on 01/31/17 08 :18; Start 01/29/17 at 21:00 Oxycodone HCl (Roxicodone) 5 mg PRN Q4HRS PRN PEG SEVERE PAIN Last administered on 01/31/17 08:30; Start 01/29/17 at 16:30 Losartan Potassium (Cozaar) 100 mg DAILY PEG Last administered on 01/31/17 08: 20; Start 01/30/17 at 09:00 Vancomycin HCl 1.25 gm/Sodium Chloride 250 ml @ 167 mls/hr Q24H IV Last administered on 01/30/17 17:37; Start 01/30/17 at 18:00 Vancomycin HCl 1 each 1X ONCE MC ; Start 01/31/17 at 17:30; Stop 01/31/17 at 17 :31 Ondansetron HCl (Zofran) 4 mg PRN Q6HRS PRN IV NAUSEA/VOMITING Last administered on 01/30/17 16:08; Start 01/30/17 at 16:00 Active Scripts Active Atenolol 25 Mg Tablet 50 Mg PEG DAILY Amlodipine Besylate 5 Mg Tablet 5 Mg PEG DAILY Reported Bystolic (Nebivolol) 5 Mg Tablet 5 Mg PO DAILY Oxycodone Hcl 5 Mg/5 Ml Solution 5 Mg PEG Q 4HRS PRN PAIN PRN Aricept (Donepezil Hcl) 5 Mg Tablet 5 Mg PEG DAILY Proair Hfa Inhaler (Albuterol Sulfate) 8.5 Gm Hfa.aer.ad 2 Puff IH PRN Q4-6HRS Albuterol Sulfate Neb Soln (Albuterol Sulfate) 0.63 Mg/3 Ml Vial.neb 1 Vial NEB PRN PRN Florastor (Saccharomyces Boulardii) 250 Mg Capsule 250 Mg PEG DAILY FENTANYL 50mcg/hr (Fentanyl) 1 Each Patch.td72 1 Patch TP Q3DAYS Xanax (Alprazolam) 0.25 Mg Tablet 0.25 Mg PEG DAILY PRN Citalopram Hbr (Citalopram Hydrobromide) 10 Mg Tablet 1 Tab PEG DAILY Ondansetron Odt (Ondansetron) 4 Mg Tab.rapdis 4 Mg PEG QIDPRN PRN Metoclopramide Hcl 5 Mg/5 Ml Solution 2 Mg PEG TID Cyproheptadine Hcl 4 Mg Tablet 2 Mg PEG TID Diovan (Valsartan) 160 Mg Tablet 160 Mg PEG DAILY Vitals/I & O Vital Sign - Last 24 Hours 01/30/17 01/30/17 01/30/17 01/30/17 15:00 18:08 19:08 19:15 Temp 97.3 97.9 97.3 97.9 Pulse 83 83 Resp 20 24 B/P (MAP) 142/69 (93) 127/76 (93) Pulse Ox 91 91 83 O2 Delivery Tracheal Collar Tracheal Collar Tracheal Collar O2 Flow Rate 8.0 8.0 8.0 01/30/17 01/30/17 01/30/17 01/31/17 20:00 21:58 23:15 03:15 Temp 97.7 97.7 97.7 97.7 Pulse 83 83 78 Resp 24 20 B/P (MAP) 127/76 145/61 (89) 155/76 (102) Pulse Ox 94 87 O2 Delivery Trach Collar Tracheal Collar Tracheal Collar O2 Flow Rate 8.0 8.0 8.0 01/31/17 01/31/17 01/31/17 01/31/17 07:00 07:54 08:00 08:18 Temp 98.1 98.1 Pulse 77 77 Resp 19 B/P (MAP) 156/76 (102) 156/76 Pulse Ox 98 98 O2 Delivery Tracheal Collar Tracheal Collar Trach Collar O2 Flow Rate 98.0 10.0 10.0 01/31/17 01/31/17 01/31/17 01/31/17 08:19 08:20 08:20 08:30 Pulse 77 77 77 Resp 16 B/P (MAP) 156/76 156/76 156/76 Pulse Ox 98 O2 Flow Rate 10.0 01/31/17 01/31/17 09:30 10:48 Temp 97.5 97.5 Pulse 72 Resp 16 16 B/P (MAP) 116/60 (78) Pulse Ox 98 91 O2 Delivery Tracheal Collar O2 Flow Rate 10.0 8.0 Intake and Output 01/30/17 01/30/17 01/31/17 15:00 23:00 07:00 Intake Total 1200 ml 0 ml 0 ml Output Total 800 ml 1000 ml Balance 1200 ml -800 ml -1000 ml HEAVEN KRAUS MD January 31, 2017 13:53
[2017-01-31] MEDS: VANCOMYCIN PER PHARMACY MC PRN ×2 (14:43→18:35)
[2017-01-31 15:00] VITALS: BP 130/64
[2017-01-31] MEDS: ENOXAPARIN 40 MG/0.4 ML SYRINGE. SQ SCH (16:33)
[2017-01-31] MEDS: ONDANSETRON PF 4 MG/2 ML VIAL. IV PRN (18:14)
[2017-01-31] MEDS: VANCOMYCIN 1.25 GM in IV NORMAL SALINE 250ML 250 ML IV SCH (18:21)
[2017-01-31 19:15] VITALS: BP 121/59
[2017-01-31 23:52] VITALS: BP 144/67
[2017-02-01 03:37] VITALS: BP 169/89
[2017-02-01] MEDS: PIPERACILLIN/TAZOBACTAM 3.375 GM in IV NORMAL SALINE 50ML 50 ML IV SCH ×3 (06:01→17:04)
[2017-02-01 06:31] LABS: CALCIUM 8.8 mg/dL (8.5-10.1); GFR 65.4; POTASSIUM 3.6 mmol/L (3.5-5.1)
[2017-02-01 06:42] LABS: BASO # 0.1 x10^3/uL (0.0-0.2); BASO % 1 % (0-3); EOS % 4 % (0-3); HEMATOCRIT 38.7 % (36.0-47.0); HEMOGLOBIN 12.6 g/dL (12.0-15.5); LYMPH # 2.7 x10^3/uL (1.0-4.8); LYMPH % 24 % (24-48); MEAN CORPUSCULAR HEMOGLOBIN 27 pg (25-35); MEAN CORPUSCULAR HGB CONC 33 g/dL (31-37); MEAN CORPUSCULAR VOLUME 84 fL (79-100); MONO % 6 % (0-9); NEUT % 66 % (31-73); PLATELET COUNT 460 x10^3/uL (140-400); RED CELL DISTRIBUTION WIDTH 15.3 % (11.5-14.5)
[2017-02-01 07:00] VITALS: BP 157/75
[2017-02-01] MEDS: CYPROHEPTADINE 4 MG TABLET. PEG SCH ×4 (09:05→21:34)
[2017-02-01] MEDS: ATENOLOL 25 MG TABLET. PEG SCH (09:05)
[2017-02-01] MEDS: SACCHAROMYCES BOULARDII 250 MG CAPSULE. PEG SCH (09:06)
[2017-02-01] MEDS: METOCLOPRAMIDE HCL 10 MG/10 ML SOLUTION. PO SCH ×2 (09:06→21:34)
[2017-02-01] MEDS: METOPROLOL TART IMMED RELEASE 25 MG TABLET. PEG SCH ×2 (09:06→21:36)
[2017-02-01] MEDS: LOSARTAN POTASSIUM 50 MG TABLET. PEG SCH (09:06)
[2017-02-01] MEDS: LANSOPRAZOLE 30 MG TAB.RAP.DR FT SCH (09:06)
[2017-02-01] MEDS: HYDROcodone/APAP 5/325MG 1 TAB TABLET PO PRN (09:07)
[2017-02-01] MEDS: CITALOPRAM 10 MG TABLET. PEG SCH (09:07)
[2017-02-01] MEDS: DONEPEZIL HCL 5 MG TABLET. PEG SCH (09:07)
[2017-02-01] MEDS: amLODIPine BESYLATE 5 MG TABLET PEG SCH (09:07)
--- NOTE | 2017-02-01 10:46 | PDOC ---
PULMONARY PROGRESS NOTES Subjective no soa Vitals Vital Signs Date Time Temp Pulse Resp B/P (MAP) Pulse Ox O2 Delivery O2 Flow Rate FiO2 02/01/17 09:07 72 157/75 02/01/17 09:07 Room Air 02/01/17 07:00 98.2 16 97 8.0 98.2 General: Alert, No acute distress Lungs: Other (decrease bs) Cardiovascular: S1, S2 Abdomen: Soft, Non-tender, Other Extremities: No Edema Skin: Warm Labs Laboratory Tests Test 01/31/17 17:35 02/01/17 06:00 Vancomycin Level Trough 12.5 mcg/mL (10.0-20.0) Vancomycin Last Dose Date Vancomycin Last Dose Time White Blood Count 11.0 x10^3/uL (4.0-11.0) Red Blood Count 4.60 x10^6/uL (3.50-5.40) Hemoglobin 12.6 g/dL (12.0-15.5) Hematocrit 38.7 % (36.0-47.0) Mean Corpuscular Volume 84 fL (79-100) Mean Corpuscular Hemoglobin 27 pg (25-35) Mean Corpuscular Hemoglobin Concent 33 g/dL (31-37) Red Cell Distribution Width 15.3 % (11.5-14.5) Platelet Count 460 x10^3/uL (140-400) Neutrophils (%) (Auto) 66 % (31-73) Lymphocytes (%) (Auto) 24 % (24-48) Monocytes (%) (Auto) 6 % (0-9) Eosinophils (%) (Auto) 4 % (0-3) Basophils (%) (Auto) 1 % (0-3) Neutrophils # (Auto) 7.2 x10^3uL (1.8-7.7) Lymphocytes # (Auto) 2.7 x10^3/uL (1.0-4.8) Monocytes # (Auto) 0.6 x10^3/uL (0.0-1.1) Eosinophils # (Auto) 0.4 x10^3/uL (0.0-0.7) Basophils # (Auto) 0.1 x10^3/uL (0.0-0.2) Sodium Level 137 mmol/L (136-145) Potassium Level 3.6 mmol/L (3.5-5.1) Chloride Level 100 mmol/L (98-107) Carbon Dioxide Level 31 mmol/L (21-32) Anion Gap 6 (6-14) Blood Urea Nitrogen 13 mg/dL (7-20) Creatinine 1.0 mg/dL (0.6-1.0) Estimated GFR (Cockcroft-Gault) 65.4 Glucose Level 85 mg/dL (70-99) Calcium Level 8.8 mg/dL (8.5-10.1) Laboratory Tests Test 01/31/17 17:35 02/01/17 06:00 Vancomycin Level Trough 12.5 mcg/mL (10.0-20.0) Vancomycin Last Dose Date Vancomycin Last Dose Time White Blood Count 11.0 x10^3/uL (4.0-11.0) Red Blood Count 4.60 x10^6/uL (3.50-5.40) Hemoglobin 12.6 g/dL (12.0-15.5) Hematocrit 38.7 % (36.0-47.0) Mean Corpuscular Volume 84 fL (79-100) Mean Corpuscular Hemoglobin 27 pg (25-35) Mean Corpuscular Hemoglobin Concent 33 g/dL (31-37) Red Cell Distribution Width 15.3 % (11.5-14.5) Platelet Count 460 x10^3/uL (140-400) Neutrophils (%) (Auto) 66 % (31-73) Lymphocytes (%) (Auto) 24 % (24-48) Monocytes (%) (Auto) 6 % (0-9) Eosinophils (%) (Auto) 4 % (0-3) Basophils (%) (Auto) 1 % (0-3) Neutrophils # (Auto) 7.2 x10^3uL (1.8-7.7) Lymphocytes # (Auto) 2.7 x10^3/uL (1.0-4.8) Monocytes # (Auto) 0.6 x10^3/uL (0.0-1.1) Eosinophils # (Auto) 0.4 x10^3/uL (0.0-0.7) Basophils # (Auto) 0.1 x10^3/uL (0.0-0.2) Sodium Level 137 mmol/L (136-145) Potassium Level 3.6 mmol/L (3.5-5.1) Chloride Level 100 mmol/L (98-107) Carbon Dioxide Level 31 mmol/L (21-32) Anion Gap 6 (6-14) Blood Urea Nitrogen 13 mg/dL (7-20) Creatinine 1.0 mg/dL (0.6-1.0) Estimated GFR (Cockcroft-Gault) 65.4 Glucose Level 85 mg/dL (70-99) Calcium Level 8.8 mg/dL (8.5-10.1) Medications Active Scripts Medications Dose Route/Sig Max Daily Dose Days Date Category Bystolic (Nebivolol) 5 Mg Tablet 5 Mg PO DAILY 09/17/16 Reported Atenolol 25 Mg Tablet 50 Mg PEG DAILY 06/05/16 Rx Amlodipine Besylate 5 Mg Tablet 5 Mg PEG DAILY 06/05/16 Rx Oxycodone Hcl 5 Mg/5 Ml Solution 5 Mg PEG Q 4HRS PRN PAIN PRN 09/10/15 Reported Aricept (Donepezil Hcl) 5 Mg Tablet 5 Mg PEG DAILY 08/16/15 Reported Proair Hfa Inhaler (Albuterol Sulfate) 8.5 Gm Hfa.aer.ad 2 Puff IH PRN Q4-6HRS 08/16/15 Reported Albuterol Sulfate Neb Soln (Albuterol Sulfate) 0.63 Mg/3 Ml Vial.neb 1 Vial NEB PRN PRN 06/19/14 Reported Florastor (Saccharomyces Boulardii) 250 Mg Capsule 250 Mg PEG DAILY 06/19/14 Reported FENTANYL 50mcg/hr (Fentanyl) 1 Each Patch.td72 1 Patch TP Q3DAYS 06/19/14 Reported Xanax (Alprazolam) 0.25 Mg Tablet 0.25 Mg PEG DAILY PRN 06/19/14 Reported Citalopram Hbr (Citalopram Hydrobromide) 10 Mg Tablet 1 Tab PEG DAILY 06/19/14 Reported Ondansetron Odt (Ondansetron) 4 Mg Tab.rapdis 4 Mg PEG QIDPRN PRN 06/19/14 Reported Metoclopramide Hcl 5 Mg/5 Ml Solution 2 Mg PEG TID 12/02/13 Reported Cyproheptadine Hcl 4 Mg Tablet 2 Mg PEG TID 12/02/13 Reported Diovan (Valsartan) 160 Mg Tablet 160 Mg PEG DAILY 12/02/13 Reported Impression . 1. Acute on chronic hypoxic respiratory failure secondary to healthcare-associated pneumonia. 2. Abnormal CT chest with chronic collapse of the left lower lobe. This is related to her history of known cancer with post-therapeutic radiation changes. There is, however, new infiltrate seen in the right middle and right lower lobe consistent with pneumonia. There is unchanged mediastinal adenopathy. 3. History of chronic obstructive pulmonary disease. 4. 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 5. Dysphagia, currently on PEG tube. 6. Sputum with heavy growth of PSA Plan . 1. dc vanc. continue Zosyn. can dc home on PO cipro in am 2. Gradually wean oxygen, keeping saturation 92% and above. 3. Follow blood cultures. 5. Lovenox for deep venous thrombosis prophylaxis. 6. Continue enteral nutrition. 7. P.r.n. tracheostomy suctioning. 8. d/w MARY Bacon MD February 01, 2017 10:46
[2017-02-01 11:00] VITALS: BP 150/71
[2017-02-01] MEDS: VANCOMYCIN PER PHARMACY MC PRN (11:28)
--- NOTE | 2017-02-01 11:40 | PDOC ---
PROGRESS NOTES Chief Complaint Chief Complaint 1. PSEUDOMONAS IN SPUTUM CX 1. CP, r.o esoph stricture, vasospasm 2. 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 Dysphagia with indwelling pEG on TF 4. 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 AOCD 6. HTN, controlled 7. Hx DVT 8. HX COPD, prev heavy smoker 9 HTN, dyslipdimeia - chronic stable 10. Hx Sepsis History of Present Illness History of Present Illness On iV zosyn NO white ct, no fevers Pt does not voice any complaints Wants to go home Will go home with current HH set up -sister very involved NO more CP BUt sputum cx did grow PSEUDOMONAS< pansensitive almost Dw Dr. Ortiz, 1 more day IV zosyn then dc home rakesh on PO CIPRO Dw pt and RN Vitals Vitals Vital Signs Date Time Temp Pulse Resp B/P (MAP) Pulse Ox O2 Delivery O2 Flow Rate FiO2 02/01/17 11:00 98.2 76 18 150/71 (97) 96 Tracheal Collar 8.0 98.2 Physical Exam General: No acute distress, Other (sedated) Heart: Regular rate, Normal S1, Normal S2 Lungs: Other (decrease bs) Abdomen: Normal bowel sounds, Soft Extremities: Normal pulses, Other (trace LE edema) Skin: No rashes Labs LABS Laboratory Tests Test 01/31/17 17:35 02/01/17 06:00 Vancomycin Level Trough 12.5 mcg/mL (10.0-20.0) Vancomycin Last Dose Date Vancomycin Last Dose Time White Blood Count 11.0 x10^3/uL (4.0-11.0) Red Blood Count 4.60 x10^6/uL (3.50-5.40) Hemoglobin 12.6 g/dL (12.0-15.5) Hematocrit 38.7 % (36.0-47.0) Mean Corpuscular Volume 84 fL (79-100) Mean Corpuscular Hemoglobin 27 pg (25-35) Mean Corpuscular Hemoglobin Concent 33 g/dL (31-37) Red Cell Distribution Width 15.3 % (11.5-14.5) Platelet Count 460 x10^3/uL (140-400) Neutrophils (%) (Auto) 66 % (31-73) Lymphocytes (%) (Auto) 24 % (24-48) Monocytes (%) (Auto) 6 % (0-9) Eosinophils (%) (Auto) 4 % (0-3) Basophils (%) (Auto) 1 % (0-3) Neutrophils # (Auto) 7.2 x10^3uL (1.8-7.7) Lymphocytes # (Auto) 2.7 x10^3/uL (1.0-4.8) Monocytes # (Auto) 0.6 x10^3/uL (0.0-1.1) Eosinophils # (Auto) 0.4 x10^3/uL (0.0-0.7) Basophils # (Auto) 0.1 x10^3/uL (0.0-0.2) Sodium Level 137 mmol/L (136-145) Potassium Level 3.6 mmol/L (3.5-5.1) Chloride Level 100 mmol/L (98-107) Carbon Dioxide Level 31 mmol/L (21-32) Anion Gap 6 (6-14) Blood Urea Nitrogen 13 mg/dL (7-20) Creatinine 1.0 mg/dL (0.6-1.0) Estimated GFR (Cockcroft-Gault) 65.4 Glucose Level 85 mg/dL (70-99) Calcium Level 8.8 mg/dL (8.5-10.1) Assessment and Plan Assessmemt and Plan denies 14 pt systems Problems: Comment Review of Relevant I have reviewed the following items miko (where applicable) has been applied. Labs Laboratory Tests Test 01/31/17 17:35 02/01/17 06:00 Vancomycin Level Trough 12.5 mcg/mL (10.0-20.0) Vancomycin Last Dose Date Vancomycin Last Dose Time White Blood Count 11.0 x10^3/uL (4.0-11.0) Red Blood Count 4.60 x10^6/uL (3.50-5.40) Hemoglobin 12.6 g/dL (12.0-15.5) Hematocrit 38.7 % (36.0-47.0) Mean Corpuscular Volume 84 fL (79-100) Mean Corpuscular Hemoglobin 27 pg (25-35) Mean Corpuscular Hemoglobin Concent 33 g/dL (31-37) Red Cell Distribution Width 15.3 % (11.5-14.5) Platelet Count 460 x10^3/uL (140-400) Neutrophils (%) (Auto) 66 % (31-73) Lymphocytes (%) (Auto) 24 % (24-48) Monocytes (%) (Auto) 6 % (0-9) Eosinophils (%) (Auto) 4 % (0-3) Basophils (%) (Auto) 1 % (0-3) Neutrophils # (Auto) 7.2 x10^3uL (1.8-7.7) Lymphocytes # (Auto) 2.7 x10^3/uL (1.0-4.8) Monocytes # (Auto) 0.6 x10^3/uL (0.0-1.1) Eosinophils # (Auto) 0.4 x10^3/uL (0.0-0.7) Basophils # (Auto) 0.1 x10^3/uL (0.0-0.2) Sodium Level 137 mmol/L (136-145) Potassium Level 3.6 mmol/L (3.5-5.1) Chloride Level 100 mmol/L (98-107) Carbon Dioxide Level 31 mmol/L (21-32) Anion Gap 6 (6-14) Blood Urea Nitrogen 13 mg/dL (7-20) Creatinine 1.0 mg/dL (0.6-1.0) Estimated GFR (Cockcroft-Gault) 65.4 Glucose Level 85 mg/dL (70-99) Calcium Level 8.8 mg/dL (8.5-10.1) Laboratory Tests Test 01/31/17 17:35 02/01/17 06:00 Vancomycin Level Trough 12.5 mcg/mL (10.0-20.0) Vancomycin Last Dose Date Vancomycin Last Dose Time White Blood Count 11.0 x10^3/uL (4.0-11.0) Red Blood Count 4.60 x10^6/uL (3.50-5.40) Hemoglobin 12.6 g/dL (12.0-15.5) Hematocrit 38.7 % (36.0-47.0) Mean Corpuscular Volume 84 fL (79-100) Mean Corpuscular Hemoglobin 27 pg (25-35) Mean Corpuscular Hemoglobin Concent 33 g/dL (31-37) Red Cell Distribution Width 15.3 % (11.5-14.5) Platelet Count 460 x10^3/uL (140-400) Neutrophils (%) (Auto) 66 % (31-73) Lymphocytes (%) (Auto) 24 % (24-48) Monocytes (%) (Auto) 6 % (0-9) Eosinophils (%) (Auto) 4 % (0-3) Basophils (%) (Auto) 1 % (0-3) Neutrophils # (Auto) 7.2 x10^3uL (1.8-7.7) Lymphocytes # (Auto) 2.7 x10^3/uL (1.0-4.8) Monocytes # (Auto) 0.6 x10^3/uL (0.0-1.1) Eosinophils # (Auto) 0.4 x10^3/uL (0.0-0.7) Basophils # (Auto) 0.1 x10^3/uL (0.0-0.2) Sodium Level 137 mmol/L (136-145) Potassium Level 3.6 mmol/L (3.5-5.1) Chloride Level 100 mmol/L (98-107) Carbon Dioxide Level 31 mmol/L (21-32) Anion Gap 6 (6-14) Blood Urea Nitrogen 13 mg/dL (7-20) Creatinine 1.0 mg/dL (0.6-1.0) Estimated GFR (Cockcroft-Gault) 65.4 Glucose Level 85 mg/dL (70-99) Calcium Level 8.8 mg/dL (8.5-10.1) Microbiology 01/29/17 Gram Stain - Final, Complete Medications Current Medications Aspirin ([place] Aspirin) 325 mg 1X ONCE PO Last administered on 01/29/17 12:00 ; Start 01/29/17 at 12:00; Stop 01/29/17 at 12:01; Status DC Ondansetron HCl (Zofran) 4 mg PRN Q8HRS PRN IV NAUSEA/VOMITING Last administered on 01/29/17 18:37; Start 01/29/17 at 13:45; Stop 01/30/17 at 13:44 ; Status DC Iohexol (Omnipaque 300 Mg/ml) 60 ml 1X ONCE IV Last administered on 01/29/17 14:16; Start 01/29/17 at 14:00; Stop 01/29/17 at 14:04; Status DC Info (Do NOT chart on this entry -- for MONITORING) 1 each PRN DAILY PRN MC SEE COMMENTS; Start 01/29/17 at 14:15; Stop 01/31/17 at 14:14; Status DC Pantoprazole Sodium (Protonix Vial) 40 mg 1X ONCE IVP Last administered on 17:55; Start 01/29/17 at 14:30; Stop 01/29/17 at 14:31; Status DC Lansoprazole (Prevacid) 30 mg DAILY FT Last administered on 02/01/17 09:06; Start 01/30/17 at 09:00 Acetaminophen (Tylenol) 325 mg PRN Q6HRS PRN PO MILD PAIN / TEMP; Start at 15:15 Acetaminophen/ Hydrocodone Bitart (Lortab 5/325) 1 tab PRN Q6HRS PRN PO MODERATE PAIN Last administered on 02/01/17 09:07; Start 01/29/17 at 15:15 Hydralazine HCl (Apresoline) 10 mg PRN Q4HRS PRN IVP ELEVATED BP, SEE COMMENTS ; Start 01/29/17 at 15:15 Albuterol Sulfate (Ventolin Neb Soln) 2.5 mg PRN Q4HRS PRN NEB SHORTNESS OF BREATH; Start 01/29/17 at 15:15 Piperacillin Sod/ Tazobactam Sod 3.375 gm/Sodium Chloride 50 ml @ 100 mls/hr Q6HRS IV Last administered on 02/01/17 06:01; Start 01/29/17 at 16:00 Enoxaparin Sodium (Lovenox 40mg Syringe) 40 mg Q24H SQ Last administered on 16:33; Start 01/29/17 at 16:00 Vancomycin HCl (Vanco Per Pharmacy) 1 each PRN DAILY PRN MC SEE COMMENTS Last administered on 02/01/17 11:28; Start 01/29/17 at 15:45 Acetylcysteine (Mucomyst 20%) 600 mg BID NEB ; Start 01/29/17 at 21:00; Stop at 20:59; Status DC Vancomycin HCl 1.5 gm/Sodium Chloride 500 ml @ 250 mls/hr 1X ONCE IV Last administered on 01/29/17 17:54; Start 01/29/17 at 16:00; Stop 01/29/17 at 17:59 ; Status DC Alprazolam (Xanax) 0.25 mg DAILY PRN PEG ANXIETY / AGITATION; Start 01/29/17 at 16:15 Amlodipine Besylate (Norvasc) 5 mg DAILY PEG Last administered on 02/01/17 09: 07; Start 01/30/17 at 09:00 Atenolol (Tenormin) 50 mg DAILY PEG Last administered on 02/01/17 09:05; Start 01/30/17 at 09:00 Citalopram Hydrobromide (CeleXA) 10 mg DAILY PEG Last administered on 09:07; Start 01/30/17 at 09:00 Cyproheptadine HCl (Periactin) 2 mg TID PEG Last administered on 01/31/17 17: 48; Start 01/29/17 at 21:00; Stop 01/31/17 at 18:40; Status DC Donepezil HCl (Aricept) 5 mg DAILY PEG Last administered on 02/01/17 09:07; Start 01/30/17 at 09:00 Fentanyl (Duragesic 50mcg/ Hr Patch) 1 patch Q3DAYS TD Last administered on 08:18; Start 01/30/17 at 09:00 Ondansetron HCl (Zofran Odt) 4 mg QIDPRN PRN PEG NAUSEA/VOMITING; Start at 16:15 Saccharomyces Boulardii (Florastor) 250 mg DAILY PEG Last administered on 09:06; Start 01/30/17 at 09:00 Non-Formulary Medication 1 vial PRN PRN NEB SHORTNESS OF BREATH; Start 01/29/17 at 16:15; Status UNV Non-Formulary Medication 2 puff PRN Q4-6HRS IH ; Start 01/29/17 at 16:15; Status UNV Metoclopramide HCl (Reglan) 2 mg BID PO Last administered on 02/01/17 09:06; Start 01/29/17 at 21:00 Metoprolol Tartrate (Lopressor) 25 mg BID PEG Last administered on 02/01/17 09 :06; Start 01/29/17 at 21:00 Oxycodone HCl (Roxicodone) 5 mg PRN Q4HRS PRN PEG SEVERE PAIN Last administered on 01/31/17 22:52; Start 01/29/17 at 16:30 Losartan Potassium (Cozaar) 100 mg DAILY PEG Last administered on 02/01/17 09: 06; Start 01/30/17 at 09:00 Vancomycin HCl 1.25 gm/Sodium Chloride 250 ml @ 167 mls/hr Q24H IV Last administered on 01/31/17 18:21; Start 01/30/17 at 18:00; Stop 01/31/17 at 23:59 ; Status DC Vancomycin HCl 1 each 1X ONCE MC ; Start 01/31/17 at 17:30; Stop 01/31/17 at 17 :31; Status DC Ondansetron HCl (Zofran) 4 mg PRN Q6HRS PRN IV NAUSEA/VOMITING Last administered on 01/31/17 18:14; Start 01/30/17 at 16:00 Cyproheptadine HCl (Periactin) 2 mg QID PEG Last administered on 02/01/17 09: 05; Start 01/31/17 at 18:45 Vancomycin HCl 1.5 gm/Sodium Chloride 500 ml @ 250 mls/hr Q24H IV ; Start 02/01 at 18:00 Active Scripts Active Atenolol 25 Mg Tablet 50 Mg PEG DAILY Amlodipine Besylate 5 Mg Tablet 5 Mg PEG DAILY Reported Bystolic (Nebivolol) 5 Mg Tablet 5 Mg PO DAILY Oxycodone Hcl 5 Mg/5 Ml Solution 5 Mg PEG Q 4HRS PRN PAIN PRN Aricept (Donepezil Hcl) 5 Mg Tablet 5 Mg PEG DAILY Proair Hfa Inhaler (Albuterol Sulfate) 8.5 Gm Hfa.aer.ad 2 Puff IH PRN Q4-6HRS Albuterol Sulfate Neb Soln (Albuterol Sulfate) 0.63 Mg/3 Ml Vial.neb 1 Vial NEB PRN PRN Florastor (Saccharomyces Boulardii) 250 Mg Capsule 250 Mg PEG DAILY FENTANYL 50mcg/hr (Fentanyl) 1 Each Patch.td72 1 Patch TP Q3DAYS Xanax (Alprazolam) 0.25 Mg Tablet 0.25 Mg PEG DAILY PRN Citalopram Hbr (Citalopram Hydrobromide) 10 Mg Tablet 1 Tab PEG DAILY Ondansetron Odt (Ondansetron) 4 Mg Tab.rapdis 4 Mg PEG QIDPRN PRN Metoclopramide Hcl 5 Mg/5 Ml Solution 2 Mg PEG TID Cyproheptadine Hcl 4 Mg Tablet 2 Mg PEG TID Diovan (Valsartan) 160 Mg Tablet 160 Mg PEG DAILY Vitals/I & O Vital Sign - Last 24 Hours 01/31/17 01/31/17 01/31/17 01/31/17 15:00 19:15 20:00 22:53 Temp 97.9 98.6 97.9 98.6 Pulse 72 80 80 Resp 16 16 B/P (MAP) 130/64 (86) 121/59 (79) 121/59 Pulse Ox 95 87 O2 Delivery Tracheal Collar Trach Collar O2 Flow Rate 8.0 01/31/17 01/31/17 02/01/17 02/01/17 23:52 23:58 03:37 07:00 Temp 98.5 98.4 98.2 98.5 98.4 98.2 Pulse 78 74 72 Resp 16 16 16 B/P (MAP) 144/67 (92) 169/89 (115) 157/75 (102) Pulse Ox 93 99 97 O2 Delivery Room Air Room Air Tracheal Collar Tracheal Collar O2 Flow Rate 8.0 8.0 02/01/17 02/01/17 02/01/17 02/01/17 09:05 09:06 09:06 09:07 Pulse 72 72 72 B/P (MAP) 157/75 157/75 157/75 O2 Delivery Room Air 02/01/17 02/01/17 09:07 11:00 Temp 98.2 98.2 Pulse 72 76 Resp 18 B/P (MAP) 157/75 150/71 (97) Pulse Ox 96 O2 Delivery Tracheal Collar O2 Flow Rate 8.0 Intake and Output 01/31/17 01/31/17 02/01/17 15:00 23:00 07:00 Intake Total 100 ml 700 ml 200 ml Output Total 700 ml 950 ml Balance 100 ml 0 ml -750 ml HEAVEN KRAUS MD February 01, 2017 11:40
--- NOTE | 2017-02-01 12:43 | EKG ---
[facility] [address] [place] [address] Test Date: 2017-02-01 Test Time: 11:35:59 Pat Name: BERNARDO DE LEON Department: Room: [facility] Gender: F Assistant Corporate Secretary: : 1940 Requested By: HEAVEN KRAUS Order Number: [id number] Reading MD: Alessandra Bruce Measurements Intervals [place] Rate: 71 P: 56 AR: 208 QRS: -15 QRSD: 94 T: 51 QT: 406 QTc: 441 Interpretive Statements SINUS RHYTHM LEFTWARD AXIS CONSIDER LEFT VENTRICULAR HYPERTROPHY POSSIBLY ABNORMAL ECG Electronically Signed On 02-02-2017 21:39:35 CDT by Alessandra Bruce
[2017-02-01] MEDS ORDERED: fentaNYL 50MCG/HR PATCH 1 PATCH PATCH.TD72 TD SCH (13:00)
[2017-02-01] MEDS: ONDANSETRON PF 4 MG/2 ML VIAL. IV PRN (13:21)
[2017-02-01 15:00] VITALS: BP 166/76
[2017-02-01] MEDS: ENOXAPARIN 40 MG/0.4 ML SYRINGE. SQ SCH (17:03)
[2017-02-01] MEDS: oxyCODONE IR 5 MG TABLET PEG PRN (17:05)
[2017-02-01] MEDS ORDERED: VANCOMYCIN 1.5 GM in IV NORMAL SALINE 500ML BAG 500 ML IV SCH (18:00)
[2017-02-01 19:15] VITALS: BP 167/78
[2017-02-01 23:15] VITALS: BP 169/74
[2017-02-02] MEDS: PIPERACILLIN/TAZOBACTAM 3.375 GM in IV NORMAL SALINE 50ML 50 ML IV SCH ×3 (01:06→12:40)
[2017-02-02 03:20] VITALS: BP 182/85
[2017-02-02 07:00] VITALS: BP 139/71
[2017-02-02] MEDS: METOCLOPRAMIDE HCL 10 MG/10 ML SOLUTION. PO SCH (09:04)
[2017-02-02] MEDS: LOSARTAN POTASSIUM 50 MG TABLET. PEG SCH (09:06)
[2017-02-02] MEDS: SACCHAROMYCES BOULARDII 250 MG CAPSULE. PEG SCH (09:06)
[2017-02-02] MEDS: ATENOLOL 25 MG TABLET. PEG SCH (09:10)
[2017-02-02] MEDS: CYPROHEPTADINE 4 MG TABLET. PEG SCH ×2 (09:10→12:39)
[2017-02-02] MEDS: LANSOPRAZOLE 30 MG TAB.RAP.DR FT SCH (09:11)
[2017-02-02] MEDS: CITALOPRAM 10 MG TABLET. PEG SCH (09:14)
[2017-02-02] MEDS: METOPROLOL TART IMMED RELEASE 25 MG TABLET. PEG SCH (09:14)
[2017-02-02] MEDS: amLODIPine BESYLATE 5 MG TABLET PEG SCH (09:15)
[2017-02-02] MEDS: DONEPEZIL HCL 5 MG TABLET. PEG SCH (09:15)
[2017-02-02] MEDS: HYDROcodone/APAP 5/325MG 1 TAB TABLET PO PRN (09:17)
[2017-02-02] MEDS: VANCOMYCIN PER PHARMACY MC PRN (10:22)
[2017-02-02 11:00] VITALS: BP 125/80
--- NOTE | 2017-02-02 11:21 | PDOC ---
Objective: Objective: Per RN - no chest/abd pain. Did c/o leg pain, given hydrocodone. PEG tube working well. Possible DC today. Vital Signs: Vital Signs Date Time Temp Pulse Resp B/P (MAP) Pulse Ox O2 Delivery O2 Flow Rate FiO2 02/02/17 10:33 92 Room Air 8.0 02/02/17 09:15 72 139/71 02/02/17 07:00 97.9 20 97.9 Labs: Laboratory Tests Test 02/02/17 01:15 02/02/17 05:45 Troponin I Quantitative 0.025 ng/mL 0.019 ng/mL PE: GEN: NAD, was asleep LUNGS: trach HEART: RRR ABD: NABS, S/ND/NT, PEG in place NEURO/PSYCH: opens eyes, nods, doesn't speak A/P: Resp failure w/ trach, hypoxia -h/o lung cancer, HAP Dysphagia, h/o laryngeal cancer, PEG in place -last replaced 05/2016, tube functioning H/o gastroparesis -on Reglan and Prevacid Chest/abd pain - resolved -- PEG functioning. DC per primary. LE ROSENTHAL February 02, 2017 11:21
[2017-02-02] MEDS ORDERED: CEFP100T PO (13:22)
[2017-02-02] MEDS ORDERED: CEFPODOXIME PROXETIL 100 MG TABLET. PO SCH (14:00)
--- NOTE | 2017-02-02 14:09 | PDOC3 ---
Discharge Summary [facility] Date of Admission: January 29, 2017 Discharge Date: February 02, 2017 Admitting Diagnosis 1. PSEUDOMONAS IN SPUTUM CX 1. CP, r.o esoph stricture, vasospasm 2. 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 Dysphagia with indwelling pEG on TF 4. 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 AOCD 6. HTN, controlled 7. Hx DVT 8. HX COPD, prev heavy smoker 9 HTN, dyslipdimeia - chronic stable 10. Hx Sepsis 11. h/o larygeal Ca with PEG, trach Problems: CONSULTS gi pulm Brief Hospital Course Ms. Ch is a 76 old F, with h/o lung Ca, laryngeal Ca with trach, and PEG, comes for chest pain, likely 2/2 gi issues, and cough. sputum + for pseudomonas and ecoli, on zosyn and vanco, dc home with vantin for another 1 week dc time 35min General: No acute distress, Other (sedated) Heart: Regular rate, Normal S1, Normal S2 Lungs: Other (decrease bs) Abdomen: Normal bowel sounds, Soft Extremities: Normal pulses, Other (trace LE edema) Skin: No rashes trach, PEG in place Patient History: Problems: Disposition home CONDITION AT DISCHARGE: Improved Diet PEG feeding Scheduled Albuterol Sulfate (Proair Hfa Inhaler), 2 PUFF IH PRN Q4-6HRS, (Reported) Amlodipine Besylate (Amlodipine Besylate), 5 MG PEG DAILY Atenolol (Atenolol), 50 MG PEG DAILY Cefpodoxime Proxetil (Cefpodoxime Proxetil), 200 MG PO BID Citalopram Hydrobromide (Citalopram Hbr), 1 TAB PEG DAILY, (Reported) Cyproheptadine Hcl (Cyproheptadine Hcl), 2 MG PEG TID, (Reported) Donepezil Hcl (Aricept), 5 MG PEG DAILY, (Reported) Fentanyl (FENTANYL 50mcg/hr), 1 PATCH TP Q3DAYS, (Reported) Metoclopramide Hcl (Metoclopramide Hcl), 2 MG PEG TID, (Reported) Nebivolol Hcl (Bystolic), 5 MG PO DAILY, (Reported) Saccharomyces Boulardii (Florastor), 250 MG PEG DAILY, (Reported) Valsartan (Diovan), 160 MG PEG DAILY, (Reported) Scheduled PRN Albuterol Sulfate (Albuterol Sulfate Neb Soln), 1 VIAL NEB PRN PRN for SHORTNESS OF BREATH, (Reported) Alprazolam (Xanax), 0.25 MG PEG DAILY PRN for ANXIETY / AGITATION, (Reported) Ondansetron (Ondansetron Odt), 4 MG PEG QIDPRN PRN for NAUSEA/VOMITING, ( Reported) Oxycodone Hcl (Oxycodone Hcl), 5 MG PEG q 4hrs prn pain PRN for PAIN, (Reported) Discontinued Medications Sulfamethoxazole/Trimethoprim (Sulfamethoxazole-Tmp Ds Tablet), 1 TAB PO BID, ( Reported) Follow Up fu with pcp in 2 weeks JAVIER IRVIN MD February 02, 2017 14:09
[2017-02-02] MEDS ORDERED: HEPARIN PF 500 UNIT/5 ML DISP.SYRIN. IV ONE (14:15)
--- NOTE | 2017-02-02 16:22 | PDOC ---
PULMONARY PROGRESS NOTES Subjective no soa Vitals Vital Signs Date Time Temp Pulse Resp B/P (MAP) Pulse Ox O2 Delivery O2 Flow Rate FiO2 02/02/17 11:00 98.0 76 20 125/80 (95) 91 Tracheal Collar 8.0 98.0 General: Alert, No acute distress Lungs: Other (decrease bs) Cardiovascular: S1, S2 Abdomen: Soft, Non-tender, Other Extremities: No Edema Skin: Warm Labs Laboratory Tests Test 01/31/17 17:35 02/01/17 06:00 02/01/17 21:53 02/02/17 01:15 Vancomycin Level Trough 12.5 mcg/mL (10.0-20.0) Vancomycin Last Dose Date Vancomycin Last Dose Time White Blood Count 11.0 x10^3/uL (4.0-11.0) Red Blood Count 4.60 x10^6/uL (3.50-5.40) Hemoglobin 12.6 g/dL (12.0-15.5) Hematocrit 38.7 % (36.0-47.0) Mean Corpuscular Volume 84 fL (79-100) Mean Corpuscular Hemoglobin 27 pg (25-35) Mean Corpuscular Hemoglobin Concent 33 g/dL (31-37) Red Cell Distribution Width 15.3 % (11.5-14.5) Platelet Count 460 x10^3/uL (140-400) Neutrophils (%) (Auto) 66 % (31-73) Lymphocytes (%) (Auto) 24 % (24-48) Monocytes (%) (Auto) 6 % (0-9) Eosinophils (%) (Auto) 4 % (0-3) Basophils (%) (Auto) 1 % (0-3) Neutrophils # (Auto) 7.2 x10^3uL (1.8-7.7) Lymphocytes # (Auto) 2.7 x10^3/uL (1.0-4.8) Monocytes # (Auto) 0.6 x10^3/uL (0.0-1.1) Eosinophils # (Auto) 0.4 x10^3/uL (0.0-0.7) Basophils # (Auto) 0.1 x10^3/uL (0.0-0.2) Sodium Level 137 mmol/L (136-145) Potassium Level 3.6 mmol/L (3.5-5.1) Chloride Level 100 mmol/L (98-107) Carbon Dioxide Level 31 mmol/L (21-32) Anion Gap 6 (6-14) Blood Urea Nitrogen 13 mg/dL (7-20) Creatinine 1.0 mg/dL (0.6-1.0) Estimated GFR (Cockcroft-Gault) 65.4 Glucose Level 85 mg/dL (70-99) Calcium Level 8.8 mg/dL (8.5-10.1) Nasal Screen MRSA (PCR) Negative (Negative) Troponin I Quantitative 0.025 ng/mL (0.000-0.055) Test 02/02/17 05:45 Troponin I Quantitative 0.019 ng/mL (0.000-0.055) Laboratory Tests Test 02/01/17 21:53 02/02/17 01:15 02/02/17 05:45 Nasal Screen MRSA (PCR) Negative (Negative) Troponin I Quantitative 0.025 ng/mL (0.000-0.055) 0.019 ng/mL (0.000-0.055) Medications Active Scripts Medications Dose Route/Sig Max Daily Dose Days Date Category Bystolic (Nebivolol) 5 Mg Tablet 5 Mg PO DAILY 09/17/16 Reported Atenolol 25 Mg Tablet 50 Mg PEG DAILY 06/05/16 Rx Amlodipine Besylate 5 Mg Tablet 5 Mg PEG DAILY 06/05/16 Rx Oxycodone Hcl 5 Mg/5 Ml Solution 5 Mg PEG Q 4HRS PRN PAIN PRN 09/10/15 Reported Aricept (Donepezil Hcl) 5 Mg Tablet 5 Mg PEG DAILY 08/16/15 Reported Proair Hfa Inhaler (Albuterol Sulfate) 8.5 Gm Hfa.aer.ad 2 Puff IH PRN Q4-6HRS 08/16/15 Reported Albuterol Sulfate Neb Soln (Albuterol Sulfate) 0.63 Mg/3 Ml Vial.neb 1 Vial NEB PRN PRN 06/19/14 Reported Florastor (Saccharomyces Boulardii) 250 Mg Capsule 250 Mg PEG DAILY 06/19/14 Reported FENTANYL 50mcg/hr (Fentanyl) 1 Each Patch.td72 1 Patch TP Q3DAYS 06/19/14 Reported Xanax (Alprazolam) 0.25 Mg Tablet 0.25 Mg PEG DAILY PRN 06/19/14 Reported Citalopram Hbr (Citalopram Hydrobromide) 10 Mg Tablet 1 Tab PEG DAILY 06/19/14 Reported Ondansetron Odt (Ondansetron) 4 Mg Tab.rapdis 4 Mg PEG QIDPRN PRN 06/19/14 Reported Metoclopramide Hcl 5 Mg/5 Ml Solution 2 Mg PEG TID 12/02/13 Reported Cyproheptadine Hcl 4 Mg Tablet 2 Mg PEG TID 12/02/13 Reported Diovan (Valsartan) 160 Mg Tablet 160 Mg PEG DAILY 12/02/13 Reported Impression . 1. Acute on chronic hypoxic respiratory failure secondary to healthcare-associated pneumonia. 2. Abnormal CT chest with chronic collapse of the left lower lobe. This is related to her history of known cancer with post-therapeutic radiation changes. There is, however, new infiltrate seen in the right middle and right lower lobe consistent with pneumonia. There is unchanged mediastinal adenopathy. 3. History of chronic obstructive pulmonary disease. 4. 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 5. Dysphagia, currently on PEG tube. 6. Sputum with heavy growth of PSA Plan . resp status is compensated 1. dc vanc. continue Zosyn. can dc home on PO cipro today 2. Gradually wean oxygen, keeping saturation 92% and above. 3. Follow blood cultures. 5. Lovenox for deep venous thrombosis prophylaxis. 6. Continue enteral nutrition. 7. P.r.n. tracheostomy suctioning. ANURAG LOO MD February 02, 2017 16:22
== END 2017-02-02 18:00 | disposition home or self-care (01) | DRG 177 ==
LOC: ER 10:26 → OBSVTOIN 13:20 → 6 SOUTH 13:20
PROVIDERS: ADMIT Internal Medicine; ATTEND Internal Medicine
DX: J15.1 Pneumonia due to Pseudomonas (principal); J96.21 Acute and chronic respiratory failure with hypoxia; E44.0 Moderate protein-calorie malnutrition; J44.0 Chronic obstructive pulmonary disease with (acute) lower respiratory infection; K21.9 Gastro-esophageal reflux disease without esophagitis; I11.9 Hypertensive heart disease without heart failure; M19.90 Unspecified osteoarthritis, unspecified site; K29.70 Gastritis, unspecified, without bleeding; R13.12 Dysphagia, oropharyngeal phase; Y95 Nosocomial condition; I73.9 Peripheral vascular disease, unspecified; I27.2 Other secondary pulmonary hypertension; I08.1 Rheumatic disorders of both mitral and tricuspid valves; K22.2 Esophageal obstruction; K31.84 Gastroparesis; D63.8 Anemia in other chronic diseases classified elsewhere; Z82.49 Family history of ischemic heart disease and other diseases of the circulatory system; Z85.21 Personal history of malignant neoplasm of larynx; Z85.818 Personal history of malignant neoplasm of other sites of lip, oral cavity, and pharynx; Z87.891 Personal history of nicotine dependence; Z92.21 Personal history of antineoplastic chemotherapy; Z92.3 Personal history of irradiation; Z93.0 Tracheostomy status; Z93.1 Gastrostomy status; Z86.718 Personal history of other venous thrombosis and embolism; Z85.118 Personal history of other malignant neoplasm of bronchus and lung; Z98.49 Cataract extraction status, unspecified eye; Z79.899 Other long term (current) drug therapy; Z86.14 Personal history of Methicillin resistant Staphylococcus aureus infection
CPT/HCPCS: 36415; 71010; 71275; 74000; 80048; 80061; 80076; 80202; 82553; 83690; 83735; 83880; 84443; 84484; 85027; 85379; 85610; 87070; 87186; 87205; 87641; 93005; 93308; 94640; 94760; C9113; J1650; J2405; J2543; J3370; J7040; J7050; J8597; Q9967; 99285-25; J7030

== ENCOUNTER 2017-02-11 12:13 | Emergency (ER) | payer MEDICARE, OTHER ==
[~2017-02-11] VITALS: Ht 175.3 cm; Wt 64.9 kg
[~2017-02-11 12:13] MED LIST changes: +CEFP100T PO
[2017-02-11] MEDS ORDERED: IV NORMAL SALINE 1000ML BAG 1,000 ML IV SCH (12:42)
[2017-02-11] MEDS ORDERED: 0.9 % SODIUM CHLORIDE 10 ML DISP.SYRIN. IV ONE (12:45)
[2017-02-11] MEDS ORDERED: ASPIRIN CHEWABLE 81 MG TABLET. PO ONE (12:45)
--- NOTE | 2017-02-11 12:55 | PHYS DOC ---
Past Medical History Past Medical History: Cancer, Hypertension, MRSA, Other Additional Past Medical Histor: LUNG AND LYMPH NODES CANCER Past Surgical History: Other Additional Past Surgical Histo: cataract, PEG tube, ca, TRACH Alcohol Use: None Drug Use: None Adult General Chief Complaint Chief Complaint: SHORTNESS OF BREATH [facility] HPI 76-year-old female with prior history of laryngeal cancer, currently on tracheostomy and a PEG, brought to the hospital for shortness of breath symptoms noted this morning, when she woke up this morning described it as a left lower sternal area, lasting for a few hours. Symptoms resolved at the time of my examination. The patient was seen by primary care doctor and in the ER last week for similar symptoms. She denies any fevers, chills but has had a productive cough with this shortness of breath. She denies any recent sick contacts or travel outside the country. Most of the history is obtained from the old records and the patient's sister at bedside. She denies any active chest pain, palpitations,or leg swellings. The patient was diagnosed with laryngeal cancer and lung cancer in 2008. From then, she has been getting chemotherapy and radiations, following with Dr. Stokes and Dr. Bennett, and as per the sister, currently she is cancer-free, taking care of her trach at home and tube feeds. Review of Systems Review of Systems Constitutional: Denies fever or chills [] Eyes: Denies change in visual acuity, redness, or eye pain [] HENT: Denies nasal congestion or sore throat [] Respiratory: She does have a productive cough and shortness of breath Cardiovascular: No additional information not addressed in HPI [] GI: Denies she does have mild abdominal pain with coughing across the anterior portion of her belly. No change in discharge from the PEG tube : Denies dysuria or hematuria [] Musculoskeletal: Denies back pain or joint pain [] Integument: Denies rash or skin lesions [] Neurologic: Denies headache, focal weakness or sensory changes [] Endocrine: Denies polyuria or polydipsia [] Current Medications Current Medications Current Medications Medications (Trade) Dose Ordered Sig/Yuliana Start Time Stop Time Status Last Admin Dose Admin Aspirin (Children'S Aspirin) 324 mg 1X ONCE 02/11/17 12:45 02/11/17 12:47 DC Sodium Chloride 1,000 ml @ 1,000 mls/hr Q1H 02/11/17 12:42 02/11/17 13:41 DC 02/11/17 14:07 1,000 MLS/HR Sodium Chloride (Normal Saline Flush) 10 ml 1X ONCE 02/11/17 12:45 02/11/17 12:47 DC Allergies Allergies Allergies Coded Allergies Type Severity Reaction Last Updated Verified aspirin Allergy Intermediate hives 02/11/17 Yes I S O L A T I O N *CONTACT* Allergy Unknown 11/20/16 Yes No Known Medication Allergies Allergy Unknown 09/17/16 Yes Physical Exam Physical Exam Constitutional: Cachectic looking frail 76-year-old female with trach in place with yellowish mucoid discharge from the trachea. HENT: Normocephalic, atraumatic, bilateral external ears normal, dry mucous membranes with no oral exudates Eyes: PERRLA, EOMI, conjunctiva normal, no discharge. [] Neck: Normal range of motion, no tenderness, supple, no stridor. [] Cardiovascular:Heart rate regular rhythm, no murmur [] 50 g fentanyl patches noted on the left chest wall. Lungs & Thorax: Patient is course rhonchi left greater than right over the posterior portion of the lung szymanski. No wheezing noted Abdomen: Bowel sounds normal, soft, no tenderness, no masses, no pulsatile masses. [] PEG tube in place clean dry and intact Skin: Warm, dry, no erythema, no rash. [] Back: No tenderness, no CVA tenderness. [] Extremities: No tenderness, no cyanosis, no clubbing, ROM intact, no edema. [] Neurologic: Alert and oriented X 3, normal motor function, normal sensory function, no focal deficits noted. [] Psychologic: Affect normal, judgement normal, mood normal. [] Current Patient Data Vital Signs Vital Signs Date Time Temp Pulse Resp B/P (MAP) Pulse Ox O2 Delivery O2 Flow Rate FiO2 02/11/17 15:03 82 18 173/79 (110) 95 Nasal Cannula 2.0 02/11/17 12:30 98.0 98.0 Lab Values Laboratory Tests Test 02/11/17 13:55 02/11/17 14:15 02/11/17 15:00 White Blood Count 11.6 x10^3/uL (4.0-11.0) H Red Blood Count 4.67 x10^6/uL (3.50-5.40) Hemoglobin 12.3 g/dL (12.0-15.5) Hematocrit 39.4 % (36.0-47.0) Mean Corpuscular Volume 84 fL (79-100) Mean Corpuscular Hemoglobin 26 pg (25-35) Mean Corpuscular Hemoglobin Concent 31 g/dL (31-37) Red Cell Distribution Width 15.5 % (11.5-14.5) H Platelet Count 413 x10^3/uL (140-400) H Neutrophils (%) (Auto) 65 % (31-73) Lymphocytes (%) (Auto) 27 % (24-48) Monocytes (%) (Auto) 6 % (0-9) Eosinophils (%) (Auto) 1 % (0-3) Basophils (%) (Auto) 1 % (0-3) Neutrophils # (Auto) 7.5 x10^3uL (1.8-7.7) Lymphocytes # (Auto) 3.2 x10^3/uL (1.0-4.8) Monocytes # (Auto) 0.7 x10^3/uL (0.0-1.1) Eosinophils # (Auto) 0.1 x10^3/uL (0.0-0.7) Basophils # (Auto) 0.1 x10^3/uL (0.0-0.2) Sodium Level 137 mmol/L (136-145) Potassium Level 4.0 mmol/L (3.5-5.1) Chloride Level 97 mmol/L (98-107) L Carbon Dioxide Level 35 mmol/L (21-32) H Anion Gap 5 (6-14) L Blood Urea Nitrogen 26 mg/dL (7-20) H Creatinine 0.8 mg/dL (0.6-1.0) Estimated GFR (Cockcroft-Gault) 84.6 BUN/Creatinine Ratio 33 (6-20) H Glucose Level 93 mg/dL (70-99) Lactic Acid Level 1.1 mmol/L (0.4-2.0) Calcium Level 9.7 mg/dL (8.5-10.1) Magnesium Level 2.8 mg/dL (1.8-2.4) H Total Bilirubin 0.3 mg/dL (0.2-1.0) Aspartate Amino Transferase (AST) 21 U/L (15-37) Alanine Aminotransferase (ALT) 15 U/L (14-59) Alkaline Phosphatase 69 U/L (46-116) Creatine Kinase 64 U/L (26-192) Creatine Kinase MB (Mass) 10.7 ng/mL (0.0-3.6) H Creatine Kinase MB Relative Index 16.7 % (0-4) H Troponin I Quantitative < 0.017 ng/mL (0.000-0.055) RL-Som-S-Type Natriuretic Peptide 426 pg/mL (0-449) Total Protein 8.3 g/dL (6.4-8.2) H Albumin 3.2 g/dL (3.4-5.0) L Albumin/Globulin Ratio 0.6 (1.0-1.7) L Lipase 141 U/L (73-393) Thyroid Stimulating Hormone (TSH) 1.929 uIU/mL (0.358-3.74) Urine Collection Type Unknown Urine Color Yellow Urine Clarity Clear Urine pH 8.0 Urine Specific [place] 1.010 Urine Protein Negative mg/dL (NEG-TRACE) Urine Glucose (UA) Negative mg/dL (NEG) Urine Ketones (Stick) Negative mg/dL (NEG) Urine Blood Negative (NEG) Urine Nitrite Negative (NEG) Urine Bilirubin Negative (NEG) Urine Urobilinogen Dipstick 0.2 mg/dL (0.2 mg/dL) Urine Leukocyte Esterase Negative (NEG) Urine RBC Occ /HPF (0-2) Urine WBC Occ /HPF (0-4) Urine Squamous Epithelial Cells Few /LPF Urine Bacteria 0 /HPF (0-FEW) O2 Saturation 95 % (92-99) Arterial Blood pH 7.45 (7.35-7.45) Arterial Blood pCO2 at Patient Temp 48 mmHg (35-46) H Arterial Blood pO2 at Patient Temp 77 mmHg (65-108) Arterial Blood HCO3 33 mmol/L (21-28) H Arterial Blood Base Excess 8 mmol/L (-3-3) H Oxyhemoglobin 93.4 % Methemoglobin 0.5 % (0.0-1.9) Carbon Monoxide, Quantitative 1.0 % (0.0-1.9) FiO2 28.0 Laboratory Tests 02/11/17 13:55 Laboratory Tests 02/11/17 13:55 EKG EKG EKG timed 12:38 PM 02/11/2017 demonstrates a heart rate of 76 with normal sinus rhythm left atrial enlargement noted by large P wave in lead 2 there is significant left axis deviation read by Dr. Anaya Radiology/Procedures Radiology/Procedures [] Course & Med Decision Making Course & Med Decision Making Pertinent Labs and Imaging studies reviewed. (See chart for details) I reviewed nursing notes vital signs which demonstrated continued hypertension here in the emergency without hypoxia or tachypnea. Patient's x-ray series reviewed by me read by radiology infiltrate not identified. Patient has a slight elevated white blood cell count without left shift this may be margination secondary to pain. Patient's troponin is negative patient's other laboratory work is unremarkable. Patient has a mild elevation in her BUN/ creatinine are presents mild dehydration. Given physical exam findings I can see this is appropriate Impression dyspnea chronic in nature unclear etiology. Disposition PCP follow-up and referral to pulmonology for continued evaluation of chronic COPD/dyspnea [] Dragon Disclaimer Dragon Disclaimer This electronic medical record was generated, in whole or in part, using a voice recognition dictation system. Departure Departure Impression: Primary Impression: Dyspnea Additional Impressions: Hypertension Unspecified protein-calorie malnutrition Disposition: HOME, SELF-CARE Condition: IMPROVED Referrals: CATHERINE MOSCOSO MD (PCP) Patient Instructions: Dehydration, Adult, Hypertension, Shortness of Breath Additional Instructions: you don't have any heart damage on evaluation at this time this is not mean you do not have heart disease. There is no evidence of pulmonary infiltrate at this time or fluid overload in your lungs I would advise continue follow-up with your primary security trainer given your history of lung cancer. I would ask you to return for any questions or concerns might have or worsening symptoms. Problem Qualifiers RADHA ANAYA MD February 11, 2017 12:55
--- NOTE | 2017-02-11 13:26 | RAD ---
Exam: AP portable chest. History: Cough, chest pain. Comparison: 01/29/2017. Findings: Tracheostomy tube is unchanged as is the right chest port. Cardiac silhouette appears within normal limits for size. No pneumothorax or large pleural effusion is seen. Accentuation of interstitial markings is similar previous study. Persistent retrocardiac density is similar to previous study. Impression: 1. No significant interval change. Persistent retrocardiac parenchymal density.
--- NOTE | 2017-02-11 13:56 | EKG ---
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
[2017-02-11 14:13] LABS: BASO # 0.1 x10^3/uL (0.0-0.2); BASO % 1 % (0-3); EOS % 1 % (0-3); HEMATOCRIT 39.4 % (36.0-47.0); HEMOGLOBIN 12.3 g/dL (12.0-15.5); LYMPH # 3.2 x10^3/uL (1.0-4.8); LYMPH % 27 % (24-48); MEAN CORPUSCULAR HEMOGLOBIN 26 pg (25-35); MEAN CORPUSCULAR HGB CONC 31 g/dL (31-37); MEAN CORPUSCULAR VOLUME 84 fL (79-100); MONO % 6 % (0-9); NEUT % 65 % (31-73); PLATELET COUNT 413 x10^3/uL (140-400); RED BLOOD COUNT 4.67 x10^6/uL (3.50-5.40); RED CELL DISTRIBUTION WIDTH 15.5 % (11.5-14.5); WHITE BLOOD COUNT 11.6 x10^3/uL (4.0-11.0)
[2017-02-11 14:23] LABS: BILIRUBIN,URINE NEGATIVE (NEG); GLUCOSE,URINE NEGATIVE (NEG); NITRITE,URINE NEGATIVE (NEG); PROTEIN,URINE NEGATIVE (NEG-TRACE); UROBILINOGEN,URINE 0.2 mg/dL (0.2 mg/dL)
[2017-02-11 14:25] LABS: CALCIUM 9.7 mg/dL (8.5-10.1); CREATININE 0.8 mg/dL (0.6-1.0); GFR 84.6
[2017-02-11 14:31] LABS: BACTERIA,URINE 0 /HPF (0-FEW); RBC,URINE OCC /HPF (0-2); SQUAMOUS EPITHELIAL CELL,UR FEW /LPF; WBC,URINE OCC /HPF (0-4)
[2017-02-11 14:34] LABS: ALBUMIN 3.2 g/dL (3.4-5.0); ALBUMIN/GLOBULIN RATIO 0.6 (1.0-1.7); MAGNESIUM 2.8 mg/dL (1.8-2.4); TOTAL BILIRUBIN 0.3 mg/dL (0.2-1.0); TOTAL PROTEIN 8.3 g/dL (6.4-8.2)
[2017-02-11 14:39] LABS: CKMB MASS 10.7 ng/mL (0.0-3.6)
[2017-02-11 15:02] LABS: BASE EXCESS COOX 8 mmol/L (-3-3); HCO3 COOX 33 mmol/L (21-28); METHEMOGLOBIN 0.5 % (0.0-1.9); OXYHEMOGLOBIN 93.4 %; PCO2 COOX 48 mmHg (35-46); PH COOX 7.45 (7.35-7.45); PO2 COOX 77 mmHg (65-108); SAT O2 COOX 95 % (92-99); TOTAL HEMOGLOBIN 13.1 g/dL
[2017-02-11 15:03] VITALS: BP 173/79
== END 2017-02-11 15:42 | disposition home or self-care (01) ==
LOC: ER 12:13
DX: R06.00 Dyspnea, unspecified (principal); I10 Essential (primary) hypertension; E46 Unspecified protein-calorie malnutrition; Z68.21 Body mass index [BMI] 21.0-21.9, adult; Z88.6 Allergy status to analgesic agent; Z91.041 Radiographic dye allergy status; Z51.11 Encounter for antineoplastic chemotherapy; C78.00 Secondary malignant neoplasm of unspecified lung
CPT/HCPCS: 36415; 36600; 71010; 80053; 81001; 82553; 82805; 83605; 83690; 83735; 83880; 84443; 84484; 85027; 87040; 93005; 96360; 99285; J7030

== ENCOUNTER 2017-06-06 22:44 | Inpatient (IN) | payer MEDICARE, OTHER ==
[~2017-06-06] VITALS: Ht 175.3 cm; Wt 93.0 kg
[~2017-06-06 22:44] MED LIST changes: +ATEN1TAB3 PEG; +CYPR2SYR6 PEG; -DONE5TAB33 PEG; +DONE5TAB56 PEG; +DONE5TAB7 PEG; +METO10TA81 PO; -OXYC-250 PEG; +OXYC-327 PO; +OXYC-328 PEG; +OXYC5CAP PO; -OXYC5CAP3 PO; +PANT40TA5 PEG; +SULF-143 PO; -SULF1TAB3 PO
[2017-06-06] MEDS ORDERED: IPRATRPIUM/ALBUTEROL 0.5/2.5MG 3 ML NEBU. NEB ONE (23:30)
[2017-06-06 23:48] LABS: BASO # 0.1 x10^3/uL (0.0-0.2); BASO % 1 % (0-3); EOS % 0 % (0-3); HEMATOCRIT 38.8 % (36.0-47.0); LYMPH # 1.2 x10^3/uL (1.0-4.8); LYMPH % 5 % (24-48); MEAN CORPUSCULAR HEMOGLOBIN 25 pg (25-35); MEAN CORPUSCULAR HGB CONC 31 g/dL (31-37); MEAN CORPUSCULAR VOLUME 82 fL (79-100); MONO % 4 % (0-9); NEUT % 91 % (31-73); PLATELET COUNT 388 x10^3/uL (140-400); RED BLOOD COUNT 4.76 x10^6/uL (3.50-5.40); RED CELL DISTRIBUTION WIDTH 16.9 % (11.5-14.5); WHITE BLOOD COUNT 24.2 x10^3/uL (4.0-11.0)
[2017-06-07] VITALS (26 sets, daily range): BP systolic 81–153; BP diastolic 45–89
[2017-06-07 00:02] LABS: CALCIUM 9.2 mg/dL (8.5-10.1); CREATININE 1.8 mg/dL (0.6-1.0); GFR 33.1; POTASSIUM 4.1 mmol/L (3.5-5.1)
[2017-06-07 00:04] LABS: ALBUMIN 3.2 g/dL (3.4-5.0); ALBUMIN/GLOBULIN RATIO 0.5 (1.0-1.7); TOTAL BILIRUBIN 0.4 mg/dL (0.2-1.0); TOTAL PROTEIN 9.1 g/dL (6.4-8.2)
--- NOTE | 2017-06-07 00:53 | PHYS DOC ---
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 History is obtained from the sister. Sister reports that the patient lives with her grandkids and they help take care of her. Daughter reports that she comes once a day to help take with care of the trach site. Sr. reports that at baseline the patient is ambulatory and self-care. She reports that she takes care of herself and feeds herself food. She reports that she is right-hand dominant. Reports that she is currently on oxygen all the time. He reports that this evening she had altered mental status and was not acting appropriate and so she came to the ER. Last known well was this morning when she saw her. She reports that this morning the patient was alert awake and oriented 3 and at her baseline mental status. Daughter reports that she's had a partial gastrectomy in the past. No history of kidney disease. No history of diabetes. Does have a history of hypertension. No liver problems in the past no strokes or coronary artery disease. Upon arrival to the ER the patient had a significantly diminished mental status and was not able to follow commands well. Patient's pulse ox was 80-88% on a Ventimask patient had a significant amount of yellow-green secretions coming from her trach site. Patient was not able to maintain her oxygenation despite oxygenation a Ventimask around the trach site. This is soon after aggressive suctioning of her trach site was made to change her over to a 6 Shiley cuffed trach tube and to mechanically ventilate her to assist her with her oxygenation. After mechanical ventilation in the ED the patient's pulse ox improved to 95% and the patient became much more alert awake and responsive to commands. The patient initially had generalized weakness with a questionable weakness to the right side of her body greater than the left however after oxygenation the patient now is able to follow commands much better and is able to squeeze with her right hand 5 out of 5 and right lower extremity 5 out of 5 and equal bilaterally. Constitutional: Denies fever or chills Eyes: Denies change in visual acuity, redness, or eye pain Review of systems difficult to obtain secondary to the patient's mental status and hypoxia. Constitutional: Cachectic appearing female in moderate respiratory distress. HENT: Normocephalic, atraumatic, bilateral external ears normal, oropharynx moist, no oral exudates, nose normal. Eyes: PERRLA, EOMI, conjunctiva normal, Neck: Trach site with copious purulent material around it. Cardiovascular: Tachycardic Lungs & Thorax: Diffuse rhonchi Abdomen: Bowel sounds normal, soft, no tenderness, no masses, no pulsatile masses. Skin: Warm to touch. Diaphoretic. Back: No tenderness, no CVA tenderness. Extremities: No tenderness, no cyanosis, no clubbing, ROM intact, no edema. Neurologic: After ventilation patient is currently Alert and oriented X 3, normal motor function, normal sensory function, no focal deficits noted. Psychologic: Affect normal, judgement normal, mood normal. Assessment and plan This is a 77-year-old female with multiple comorbidities who presents here with a fever shortness of breath and increased tracheal secretions. Patient's chest x -ray is consistent with right lower lobe infiltrate. Patient was started on IV antibiotics for a hospital-acquired pneumonia and will be admitted to the hospital. Critical care time of 35 minutes were utilizing a treatment and management of this patient's respiratory failure and hypoxia. Current Medications Current Medications Current Medications Medications (Trade) Dose Ordered Sig/Yuliana Start Time Stop Time Status Last Admin Dose Admin Albuterol/ Ipratropium (Duoneb) 3 ml 1X ONCE 06/06/17 23:30 06/06/17 23:31 DC 06/07/17 00:01 3 ML Ondansetron HCl (Zofran) 4 mg PRN Q8HRS PRN 06/07/17 01:00 06/08/17 00:59 Piperacillin Sod/ Tazobactam Sod (Zosyn Per Pharmacy) 1 each PRN DAILY PRN 06/07/17 01:00 Sodium Chloride 2,790 ml @ 2,790 mls/hr Q1H 06/07/17 01:00 06/07/17 04:26 DC 06/07/17 04:20 2,790 MLS/HR Vancomycin HCl (Vanco Per Pharmacy) 1 each PRN DAILY PRN 06/07/17 01:00 06/07/17 02:26 1 EACH Allergies Allergies Allergies Coded Allergies Type Severity Reaction Last Updated Verified aspirin Allergy Intermediate hives 03/16/17 Yes Current Patient Data Vital Signs Vital Signs Date Time Temp Pulse Resp B/P (MAP) Pulse Ox O2 Delivery O2 Flow Rate FiO2 06/07/17 01:00 100 Ventilator 06/07/17 00:36 90 22 192/91 (124) 06/06/17 22:44 100.5 100.5 Lab Values Laboratory Tests Test 06/06/17 23:35 06/07/17 00:52 06/07/17 01:00 White Blood Count 24.2 x10^3/uL (4.0-11.0) H Red Blood Count 4.76 x10^6/uL (3.50-5.40) Hemoglobin 12.0 g/dL (12.0-15.5) Hematocrit 38.8 % (36.0-47.0) Mean Corpuscular Volume 82 fL (79-100) Mean Corpuscular Hemoglobin 25 pg (25-35) Mean Corpuscular Hemoglobin Concent 31 g/dL (31-37) Red Cell Distribution Width 16.9 % (11.5-14.5) H Platelet Count 388 x10^3/uL (140-400) Neutrophils (%) (Auto) 91 % (31-73) H Lymphocytes (%) (Auto) 5 % (24-48) L Monocytes (%) (Auto) 4 % (0-9) Eosinophils (%) (Auto) 0 % (0-3) Basophils (%) (Auto) 1 % (0-3) Neutrophils # (Auto) 22.0 x10^3uL (1.8-7.7) H Lymphocytes # (Auto) 1.2 x10^3/uL (1.0-4.8) Monocytes # (Auto) 0.9 x10^3/uL (0.0-1.1) Eosinophils # (Auto) 0.0 x10^3/uL (0.0-0.7) Basophils # (Auto) 0.1 x10^3/uL (0.0-0.2) Segmented Neutrophils % 92 % (35-66) H Lymphocytes % 5 % (24-48) L Monocytes % 3 % (0-10) Platelet Estimate Adequate (ADEQUATE) Polychromasia Slight Anisocytosis Slight Sodium Level 138 mmol/L (136-145) Potassium Level 4.1 mmol/L (3.5-5.1) Chloride Level 95 mmol/L (98-107) L Carbon Dioxide Level 38 mmol/L (21-32) H Anion Gap 5 (6-14) L Blood Urea Nitrogen 70 mg/dL (7-20) H Creatinine 1.8 mg/dL (0.6-1.0) H Estimated GFR (Cockcroft-Gault) 33.1 BUN/Creatinine Ratio 39 (6-20) H Glucose Level 166 mg/dL (70-99) H Calcium Level 9.2 mg/dL (8.5-10.1) Total Bilirubin 0.4 mg/dL (0.2-1.0) Aspartate Amino Transferase (AST) 34 U/L (15-37) Alanine Aminotransferase (ALT) 23 U/L (14-59) Alkaline Phosphatase 96 U/L (46-116) Total Protein 9.1 g/dL (6.4-8.2) H Albumin 3.2 g/dL (3.4-5.0) L Albumin/Globulin Ratio 0.5 (1.0-1.7) L O2 Saturation 100 % (92-99) H Arterial Blood pH 7.44 (7.35-7.45) Arterial Blood pCO2 at Patient Temp 55 mmHg (35-46) H Arterial Blood pO2 at Patient Temp 492 mmHg (65-108) H Arterial Blood HCO3 37 mmol/L (21-28) H Arterial Blood Base Excess 10 mmol/L (-3-3) H FiO2 100.0 Lactic Acid Level 1.4 mmol/L (0.4-2.0) Laboratory Tests 06/06/17 23:35 Laboratory Tests 06/06/17 23:35 EKG EKG [] Radiology/Procedures Radiology/Procedures [] Course & Med Decision Making Course & Med Decision Making Pertinent Labs and Imaging studies reviewed. (See chart for details) [] Dragon Disclaimer Dragon Disclaimer This electronic medical record was generated, in whole or in part, using a voice recognition dictation system. Departure Departure Impression: Primary Impression: Healthcare-associated pneumonia Additional Impression: Sepsis Disposition: 09 ADMITTED INPATIENT Admitting Physician: Leslie Watson Condition: GUARDED Referrals: CATHERINE MOSCOSO MD (PCP) Problem Qualifiers INOCENCIO PEARSON MD Jun 07, 2017 00:53
[2017-06-07 00:55] LABS: HCO3 ABG 37 mmol/L (21-28); PCO2 ABG 55 mmHg (35-46); PH ABG 7.44 (7.35-7.45); PO2 ABG 492 mmHg (65-108); SAT O2 ABG 100 % (92-99)
[2017-06-07] MEDS ORDERED: ONDANSETRON PF 4 MG/2 ML VIAL. IV PRN (01:00)
[2017-06-07] MEDS ORDERED: PIP/TAZO PER PHARMACY MC PRN (01:00)
[2017-06-07] MEDS ORDERED: VANCOMYCIN 1.5 GM in IV NORMAL SALINE 500ML BAG 500 ML IV ONE (01:30)
[2017-06-07] MEDS: IV NORMAL SALINE 1000ML BAG 2,790 ML IV SCH ×4 (01:52→04:20)
[2017-06-07] MEDS: PIPERACILLIN/TAZOBACTAM 2.25 GM in IV NORMAL SALINE 50ML 50 ML IV SCH ×5 (01:53→23:24)
[2017-06-07] MEDS: VANCOMYCIN PER PHARMACY MC PRN ×2 (02:22→02:26)
[2017-06-07 04:21] LABS: ANISOCYTOSIS SLIGHT; PLT ESTIMATE ADEQUATE (ADEQUATE); POLYCHROMASIA SLIGHT
--- NOTE | 2017-06-07 07:49 | PDOC ---
Provider Note Provider Note [id number] acute on chronic resp fail abnl cxr pneumonia ? sepsis cont vent support see orders. SUZANNE STEINER MD Jun 07, 2017 07:49
[2017-06-07] MEDS ORDERED: INFLUENZA VAX SCREEN BY RX. MC ONE (08:00)
[2017-06-07] MEDS ORDERED: PANTOPRAZOLE 40 MG TABLET.DR. PO SCH ×2 (08:00→09:00)
[2017-06-07] MEDS: BUDESONIDE 0.5 MG/2 ML NEBU. NEB SCH ×2 (08:16→19:56)
[2017-06-07] MEDS: IPRATRPIUM/ALBUTEROL 0.5/2.5MG 3 ML NEBU. NEB SCH ×4 (08:16→19:56)
[2017-06-07] MEDS: ENOXAPARIN 30 MG/0.3 ML SYRINGE. SQ SCH (08:31)
[2017-06-07] MEDS ORDERED: traMADol 50 MG TABLET PO PRN (08:45)
[2017-06-07] MEDS ORDERED: ACETAMINOPHEN 325 MG TABLET. PO PRN (08:45)
[2017-06-07] MEDS ORDERED: DOCUSATE SODIUM 100 MG CAPSULE. PO PRN (08:45)
[2017-06-07] MEDS: MORPHINE SULFATE 4 MG/ML DISP.SYRIN. IV PRN ×6 (08:54→23:19)
[2017-06-07 08:57] LABS: HCO3 ABG 29 mmol/L (21-28); PCO2 ABG 37 mmHg (35-46); PH ABG 7.51 (7.35-7.45); PO2 ABG 115 mmHg (65-108); SAT O2 ABG 98 % (92-99)
[2017-06-07 08:58] LABS: FIO2 ABG 40
[2017-06-07] MEDS ORDERED: fentaNYL 50MCG/HR PATCH 1 PATCH PATCH.TD72 TD SCH (09:00)
[2017-06-07] MEDS ORDERED: FLU VACC QS2017-18 (36MOS+)/PF 0.5 ML SYRINGE. VAX IM ONE (09:00)
[2017-06-07] MEDS ORDERED: VALSARTAN 160 MG PEG SCH (09:00)
[2017-06-07] MEDS ORDERED: ALBUTEROL SULFATE 2.5 MG/3 ML NEBU. NEB PRN (09:15)
--- NOTE | 2017-06-07 09:26 | RAD ---
AP portable chest radiograph 06/06/2017 Clinical History: Shortness of breath. An AP portable erect digital radiograph of the chest was obtained. Comparison study is dated 03/15/2017. A tracheostomy tube and right internal jugular Lirzzu-p-Tutb type catheter are unchanged in position. Surgical clips overlie the region of the aortic hiatus. The cardiac silhouette is mildly enlarged. The thoracic aorta is tortuous. Atherosclerotic calcification of the thoracic aorta is seen. Patchy areas of infiltrate/atelectasis are seen involving both lower lobes new since the previous examination. No pneumothorax or pleural effusion is seen. The osseous structures are unchanged. Impression: Patchy areas of infiltrate/atelectasis are seen involving both lower lobes.
[2017-06-07] MEDS: CHLORTHALIDONE 25 MG TABLET. PEG SCH (09:30)
[2017-06-07] MEDS: ATENOLOL 50 MG TABLET. PEG SCH (09:30)
[2017-06-07] MEDS: DONEPEZIL HCL 5 MG TABLET. PEG SCH ×2 (10:00→20:42)
[2017-06-07] MEDS: CYPROHEPTADINE 4 MG TABLET. PEG SCH ×2 (10:00→20:42)
[2017-06-07] MEDS: LANSOPRAZOLE 30 MG TAB.RAP.DR PEG SCH ×2 (10:01→16:30)
[2017-06-07] MEDS: METOCLOPRAMIDE 5 MG TABLET. PO SCH ×4 (10:02→20:42)
--- NOTE | 2017-06-07 10:57 | PDOC ---
Infectious Disease Note Vital Sign Vital Signs Vital Signs Date Time Temp Pulse Resp B/P (MAP) Pulse Ox O2 Delivery O2 Flow Rate FiO2 06/07/17 09:19 100 Ventilator 06/07/17 06:00 69 18 121/59 (79) 06/07/17 04:00 99.0 99.0 Labs Lab Laboratory Tests Test 06/06/17 23:35 06/07/17 00:52 06/07/17 01:00 06/07/17 07:30 White Blood Count 24.2 x10^3/uL (4.0-11.0) Red Blood Count 4.76 x10^6/uL (3.50-5.40) Hemoglobin 12.0 g/dL (12.0-15.5) Hematocrit 38.8 % (36.0-47.0) Mean Corpuscular Volume 82 fL (79-100) Mean Corpuscular Hemoglobin 25 pg (25-35) Mean Corpuscular Hemoglobin Concent 31 g/dL (31-37) Red Cell Distribution Width 16.9 % (11.5-14.5) Platelet Count 388 x10^3/uL (140-400) Neutrophils (%) (Auto) 91 % (31-73) Lymphocytes (%) (Auto) 5 % (24-48) Monocytes (%) (Auto) 4 % (0-9) Eosinophils (%) (Auto) 0 % (0-3) Basophils (%) (Auto) 1 % (0-3) Neutrophils # (Auto) 22.0 x10^3uL (1.8-7.7) Lymphocytes # (Auto) 1.2 x10^3/uL (1.0-4.8) Monocytes # (Auto) 0.9 x10^3/uL (0.0-1.1) Eosinophils # (Auto) 0.0 x10^3/uL (0.0-0.7) Basophils # (Auto) 0.1 x10^3/uL (0.0-0.2) Segmented Neutrophils % 92 % (35-66) Lymphocytes % 5 % (24-48) Monocytes % 3 % (0-10) Platelet Estimate Adequate (ADEQUATE) Polychromasia Slight Anisocytosis Slight Sodium Level 138 mmol/L (136-145) Potassium Level 4.1 mmol/L (3.5-5.1) Chloride Level 95 mmol/L (98-107) Carbon Dioxide Level 38 mmol/L (21-32) Anion Gap 5 (6-14) Blood Urea Nitrogen 70 mg/dL (7-20) Creatinine 1.8 mg/dL (0.6-1.0) Estimated GFR (Cockcroft-Gault) 33.1 BUN/Creatinine Ratio 39 (6-20) Glucose Level 166 mg/dL (70-99) Calcium Level 9.2 mg/dL (8.5-10.1) Total Bilirubin 0.4 mg/dL (0.2-1.0) Aspartate Amino Transf (AST/SGOT) 34 U/L (15-37) Alanine Aminotransferase (ALT/SGPT) 23 U/L (14-59) Alkaline Phosphatase 96 U/L (46-116) Total Protein 9.1 g/dL (6.4-8.2) Albumin 3.2 g/dL (3.4-5.0) Albumin/Globulin Ratio 0.5 (1.0-1.7) O2 Saturation 100 % (92-99) 98 % (92-99) Arterial Blood pH 7.44 (7.35-7.45) 7.51 (7.35-7.45) Arterial Blood pCO2 at Patient Temp 55 mmHg (35-46) 37 mmHg (35-46) Arterial Blood pO2 at Patient Temp 492 mmHg (65-108) 115 mmHg (65-108) Arterial Blood HCO3 37 mmol/L (21-28) 29 mmol/L (21-28) Arterial Blood Base Excess 10 mmol/L (-3-3) 6 mmol/L (-3-3) FiO2 100.0 40 Lactic Acid Level 1.4 mmol/L (0.4-2.0) Objective Assessment HCAP Leukocytosis Acute-on chronic respiratory failure SANCHEZ Hx laryngeal and lung cancer s/p chemoradiation HX MRSA, PSA and C. diff Plan Plan of Care Clinically improving, continue vanc and Zosyn for now. Monitor WBC, renal function and temp f/u cultures Off load heels Thank you [id number] Patient seen and examined. Chart reviewed in detail. Case discussed with MEDIA CONSULTANT [employer]. Agree with above plan. ANA PAULA VILLAR APRN Jun 07, 2017 10:57 EMBER MADDEN MD Jun 07, 2017 21:00
--- NOTE | 2017-06-07 12:52 | EKG ---
[facility] [address] [place] [address] Test Date: 2017-06-06 Test Time: 23:08:18 Pat Name: BERNARDO DE LEON Department: Room: [facility] Gender: F Bone Plant Supervisor: MATT : 1940 Requested By: INOCENCIO PEARSON Order Number: [id number] Reading MD: Alessandra Bruce Measurements Intervals [place] Rate: 88 P: 56 SC: 182 QRS: -18 QRSD: 96 T: 47 QT: 382 QTc: 466 Interpretive Statements SINUS RHYTHM LEFT ATRIAL ABNORMALITY LEFTWARD AXIS CONSIDER LEFT VENTRICULAR HYPERTROPHY Electronically Signed On 06-08-2017 12:13:33 CDT by Alessandra Bruce
--- NOTE | 2017-06-07 13:17 | PDOC1 ---
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 Pt come to this hosp every 1-2 months for same reason. She has trach usually has lots of secretion when has PNA. also has PEG, which was just changed in 2016 for leaking. pt now in ICU, on vent with trach, history is from nurse and ERP. Pt Baseline is ambulatory and self-care, living with grand kids. She is on home o2 all the tiem. Last night ,she was found AMS, not acting well and sent to ER. She was found desat in ER, and then on vent. still has lots of secretions in ICU. c/o chest pain sometime with breathing. no fever, chills, N/V. usually use reglan with PEG feeding qid. h/o cdiff, MRSA, PSA PNA. Past Medical History Cardiovascular: HTN Pulmonary: COPD, Pneumonia, Other CENTRAL NERVOUS SYSTEM: Other GI: Other Heme/Onc: Anemia NOS, Cancer Hepatobiliary: No pertinent hx Psych: No pertinent hx Rheumatologic: No pertinent hx Infectious disease: No pertinent hx Renal/: No pertinent hx Endocrine: No pertinent hx Past Surgical History Past Surgical History: Cataract Removal, Other Family History Family History: Heart Disease Social History Smoke: No ALCOHOL: none Drugs: None Current Problem List Problem List Problems Medical Problems: (1) Healthcare-associated pneumonia Status: Acute (2) Sepsis Status: Acute Current Medications Current Medications Current Medications Medications (Trade) Dose Ordered Sig/Yuliana Start Time Stop Time Status Last Admin Dose Admin Acetaminophen (Tylenol) 650 mg PRN Q6HRS PRN 06/07/17 08:45 Albuterol Sulfate (Ventolin Neb Soln) 2.5 mg PRN Q4HRS PRN 06/07/17 09:15 Albuterol/ Ipratropium (Duoneb) 3 ml RTQID 06/07/17 08:00 06/07/17 11:24 3 ML Atenolol (Tenormin) 50 mg DAILY 06/07/17 09:30 Budesonide (Pulmicort) 0.5 mg RTBID 06/07/17 08:00 06/07/17 08:16 0.5 MG Chlorthalidone (Thalitone) 25 mg DAILY 06/07/17 09:30 Cyproheptadine HCl (Periactin) 2 mg BID 06/07/17 09:30 06/07/17 10:00 2 MG Docusate Sodium (Colace) 100 mg PRN DAILY PRN 06/07/17 08:45 Donepezil HCl (Aricept) 5 mg BID 06/07/17 09:30 06/07/17 10:00 5 MG Enoxaparin Sodium (Lovenox 30mg Syringe) 30 mg Q24H 06/07/17 08:00 06/07/17 08:31 30 MG Famotidine (Pepcid) 20 mg QHS 06/07/17 21:00 06/07/17 21:00 DC Fentanyl (Duragesic 50mcg/ Hr Patch) 1 patch Q3DAYS 06/09/17 09:00 Hydralazine HCl (Apresoline) 10 mg PRN Q4HRS PRN 06/07/17 08:45 Influenza Virus Vaccine Quadrival (Fluarix Quad [id number] Syringe) 0.5 ml ONCE ONCE 06/07/17 09:00 06/07/17 09:04 DC Info (Do NOT chart on this placeholder) 1 each 1X ONCE 06/07/17 08:00 06/07/17 08:01 UNV Lansoprazole (Prevacid) 30 mg BIDBFRMEAL 06/07/17 09:30 06/07/17 10:01 30 MG Metoclopramide HCl (Reglan) 5 mg QIDAFTMEAL 06/07/17 09:30 06/07/17 10:02 5 MG Morphine Sulfate 2 mg PRN Q2HR PRN 06/07/17 09:00 06/07/17 12:55 2 MG Non-Formulary Medication 160 mg DAILY 06/07/17 09:00 06/07/17 09:00 DC Ondansetron HCl (Zofran) 4 mg PRN Q6HRS PRN 06/07/17 08:45 Oxycodone/ Acetaminophen (Percocet 7.5/ 325) 1 tab PRN QID PRN 06/07/17 08:45 Pantoprazole Sodium (Protonix) 40 mg BID 06/07/17 09:00 06/07/17 09:05 DC Piperacillin Sod/ Tazobactam Sod (Zosyn Per Pharmacy) 1 each PRN DAILY PRN 06/07/17 01:00 Piperacillin Sod/ Tazobactam Sod 2.25 gm/Sodium Chloride 50 ml @ 100 mls/hr Q6HRS 06/07/17 01:30 06/07/17 12:55 100 MLS/HR Sodium Chloride 2,790 ml @ 2,790 mls/hr Q1H 06/07/17 01:00 06/07/17 04:26 DC 06/07/17 04:20 2,790 MLS/HR Tramadol HCl (Ultram) 50 mg PRN Q6HRS PRN 06/07/17 08:45 Vancomycin HCl 1 each 1X ONCE 06/09/17 01:30 06/09/17 01:31 Vancomycin HCl (Vanco Per Pharmacy) 1 each PRN DAILY PRN 06/07/17 01:00 06/07/17 02:26 1 EACH Vancomycin HCl 1.5 gm/Sodium Chloride 500 ml @ 250 mls/hr 1X ONCE 06/07/17 01:30 06/07/17 03:29 DC 06/07/17 01:53 250 MLS/HR Vancomycin HCl 1 gm/Sodium Chloride 250 ml @ 250 mls/hr Q24H 06/08/17 02:00 Allergies Allergies Allergies Coded Allergies Type Severity Reaction Last Updated Verified aspirin Allergy Intermediate hives 03/16/17 Yes ROS Review of System CONSTITUTIONAL: No fever or chills EYES: No recent changes SKIN: No rash or itching CARDIOVASCULAR: No chest pain, syncope, palpitations, or edema RESPIRATORY: No SOB or cough GASTROINTESTINAL: No nausea, vomiting or abdominal pain NEUROLOGICAL: No headaches or weakness ENDOCRINE: No cold or heat intolerance GENITOURINARY: No urgency or frequency of urination MUSCULOSKELETAL: No back pain or joint pain LYMPHATICS: No enlarged lymph nodes PSYCHIATRIC: No anxiety or depression Physical Exam Physical Exam GEN.: No apparent distress. Alert and oriented. HEENT: Head is normocephalic, atraumatic NECK: Supple. LUNGS: bl coarse bs. trach on vent. HEART: RRR, S1, S2 present. Peripheral pulses intact ABDOMEN: Soft, nontender. Positive bowel sounds. EXTREMITIES: Without any cyanosis. NEUROLOGIC: Normal speech, normal tone PSYCHIATRIC: Normal affect, normal mood. SKIN: No ulcerations Vitals Vitals Vital Signs Date Time Temp Pulse Resp B/P (MAP) Pulse Ox O2 Delivery O2 Flow Rate FiO2 06/07/17 12:55 Ventilator 06/07/17 11:25 100 06/07/17 06:00 69 18 121/59 (79) 06/07/17 04:00 99.0 99.0 Labs Labs Laboratory Tests Test 06/06/17 23:35 06/07/17 00:52 06/07/17 01:00 06/07/17 07:30 White Blood Count 24.2 x10^3/uL (4.0-11.0) Red Blood Count 4.76 x10^6/uL (3.50-5.40) Hemoglobin 12.0 g/dL (12.0-15.5) Hematocrit 38.8 % (36.0-47.0) Mean Corpuscular Volume 82 fL (79-100) Mean Corpuscular Hemoglobin 25 pg (25-35) Mean Corpuscular Hemoglobin Concent 31 g/dL (31-37) Red Cell Distribution Width 16.9 % (11.5-14.5) Platelet Count 388 x10^3/uL (140-400) Neutrophils (%) (Auto) 91 % (31-73) Lymphocytes (%) (Auto) 5 % (24-48) Monocytes (%) (Auto) 4 % (0-9) Eosinophils (%) (Auto) 0 % (0-3) Basophils (%) (Auto) 1 % (0-3) Neutrophils # (Auto) 22.0 x10^3uL (1.8-7.7) Lymphocytes # (Auto) 1.2 x10^3/uL (1.0-4.8) Monocytes # (Auto) 0.9 x10^3/uL (0.0-1.1) Eosinophils # (Auto) 0.0 x10^3/uL (0.0-0.7) Basophils # (Auto) 0.1 x10^3/uL (0.0-0.2) Segmented Neutrophils % 92 % (35-66) Lymphocytes % 5 % (24-48) Monocytes % 3 % (0-10) Platelet Estimate Adequate (ADEQUATE) Polychromasia Slight Anisocytosis Slight Sodium Level 138 mmol/L (136-145) Potassium Level 4.1 mmol/L (3.5-5.1) Chloride Level 95 mmol/L (98-107) Carbon Dioxide Level 38 mmol/L (21-32) Anion Gap 5 (6-14) Blood Urea Nitrogen 70 mg/dL (7-20) Creatinine 1.8 mg/dL (0.6-1.0) Estimated GFR (Cockcroft-Gault) 33.1 BUN/Creatinine Ratio 39 (6-20) Glucose Level 166 mg/dL (70-99) Calcium Level 9.2 mg/dL (8.5-10.1) Total Bilirubin 0.4 mg/dL (0.2-1.0) Aspartate Amino Transf (AST/SGOT) 34 U/L (15-37) Alanine Aminotransferase (ALT/SGPT) 23 U/L (14-59) Alkaline Phosphatase 96 U/L (46-116) Total Protein 9.1 g/dL (6.4-8.2) Albumin 3.2 g/dL (3.4-5.0) Albumin/Globulin Ratio 0.5 (1.0-1.7) O2 Saturation 100 % (92-99) 98 % (92-99) Arterial Blood pH 7.44 (7.35-7.45) 7.51 (7.35-7.45) Arterial Blood pCO2 at Patient Temp 55 mmHg (35-46) 37 mmHg (35-46) Arterial Blood pO2 at Patient Temp 492 mmHg (65-108) 115 mmHg (65-108) Arterial Blood HCO3 37 mmol/L (21-28) 29 mmol/L (21-28) Arterial Blood Base Excess 10 mmol/L (-3-3) 6 mmol/L (-3-3) FiO2 100.0 40 Lactic Acid Level 1.4 mmol/L (0.4-2.0) Laboratory Tests Test 06/06/17 23:35 06/07/17 00:52 06/07/17 01:00 06/07/17 07:30 White Blood Count 24.2 x10^3/uL (4.0-11.0) Red Blood Count 4.76 x10^6/uL (3.50-5.40) Hemoglobin 12.0 g/dL (12.0-15.5) Hematocrit 38.8 % (36.0-47.0) Mean Corpuscular Volume 82 fL (79-100) Mean Corpuscular Hemoglobin 25 pg (25-35) Mean Corpuscular Hemoglobin Concent 31 g/dL (31-37) Red Cell Distribution Width 16.9 % (11.5-14.5) Platelet Count 388 x10^3/uL (140-400) Neutrophils (%) (Auto) 91 % (31-73) Lymphocytes (%) (Auto) 5 % (24-48) Monocytes (%) (Auto) 4 % (0-9) Eosinophils (%) (Auto) 0 % (0-3) Basophils (%) (Auto) 1 % (0-3) Neutrophils # (Auto) 22.0 x10^3uL (1.8-7.7) Lymphocytes # (Auto) 1.2 x10^3/uL (1.0-4.8) Monocytes # (Auto) 0.9 x10^3/uL (0.0-1.1) Eosinophils # (Auto) 0.0 x10^3/uL (0.0-0.7) Basophils # (Auto) 0.1 x10^3/uL (0.0-0.2) Segmented Neutrophils % 92 % (35-66) Lymphocytes % 5 % (24-48) Monocytes % 3 % (0-10) Platelet Estimate Adequate (ADEQUATE) Polychromasia Slight Anisocytosis Slight Sodium Level 138 mmol/L (136-145) Potassium Level 4.1 mmol/L (3.5-5.1) Chloride Level 95 mmol/L (98-107) Carbon Dioxide Level 38 mmol/L (21-32) Anion Gap 5 (6-14) Blood Urea Nitrogen 70 mg/dL (7-20) Creatinine 1.8 mg/dL (0.6-1.0) Estimated GFR (Cockcroft-Gault) 33.1 BUN/Creatinine Ratio 39 (6-20) Glucose Level 166 mg/dL (70-99) Calcium Level 9.2 mg/dL (8.5-10.1) Total Bilirubin 0.4 mg/dL (0.2-1.0) Aspartate Amino Transf (AST/SGOT) 34 U/L (15-37) Alanine Aminotransferase (ALT/SGPT) 23 U/L (14-59) Alkaline Phosphatase 96 U/L (46-116) Total Protein 9.1 g/dL (6.4-8.2) Albumin 3.2 g/dL (3.4-5.0) Albumin/Globulin Ratio 0.5 (1.0-1.7) O2 Saturation 100 % (92-99) 98 % (92-99) Arterial Blood pH 7.44 (7.35-7.45) 7.51 (7.35-7.45) Arterial Blood pCO2 at Patient Temp 55 mmHg (35-46) 37 mmHg (35-46) Arterial Blood pO2 at Patient Temp 492 mmHg (65-108) 115 mmHg (65-108) Arterial Blood HCO3 37 mmol/L (21-28) 29 mmol/L (21-28) Arterial Blood Base Excess 10 mmol/L (-3-3) 6 mmol/L (-3-3) FiO2 100.0 40 Lactic Acid Level 1.4 mmol/L (0.4-2.0) VTE Prophylaxis Ordered VTE Prophylaxis Devices: Yes VTE Pharmacological Prophylaxi: Yes Assessment/Plan Assessment/Plan AMS, 2/2 hypoxia likely HAP acute on chronic hypoxic and hypercapnic resp failure h/o larygneal Ca with lung meds post chemo and RT, has trach Dysphagia , PEG htn COPD h/o cdiff h/o MRSA h/O pseudomanos PNA SANCHEZ, vasomotor mild malnutrition Sepsis with HAP plan: PULM, ID consult cont home meds, hold ACEi got 2.6L in ER cont PEG feeding ICU care, on vent with trach duoneb, albuterol prn on zosyn and vanco sputum cx labs tmr DVT, GI PPX PTOT admit >2 nights JAVIER IRVIN MD Jun 07, 2017 13:17
--- NOTE | 2017-06-07 20:12 | CONS ---
DATE OF CONSULTATION: 06/07/2017 REASON FOR CONSULTATION: I was asked to see this 77-year-old lady for [id number] respiratory failure, pneumonia. HISTORY OF PRESENT ILLNESS: The patient is currently on the ventilator and opens eyes with verbal stimuli and answers some question with nodding her head, but she does not nod appropriately. All of the information was obtained from chart and nursing staff. She has history of laryngeal cancer and tracheostomy tube and has been on oxygen. She started to have mental status changes yesterday. She had copious amount of secretion. She was brought to the Emergency Room. Oxygen saturation was between 80%-88%. Her tracheostomy tube was changed to cuffed 6 Shiley and she was placed on the ventilator. She has copious amount of secretion. She opens her eyes, answers some of the questions, like when I ask her if she smokes, at the beginning she said yes, then no. Currently, she is on assist control rate of 18, tidal volume of 450, PEEP of 5, FiO2 40%. PAST MEDICAL HISTORY: Laryngeal cancer, status post laryngectomy; tracheostomy tube placement with metastasis; hypertension; PEG tube and cataract. ALLERGIES: ASPIRIN. MEDICATIONS: Currently, she is on vancomycin and Zosyn. SOCIAL HISTORY: Positive for smoking, details are not known. REVIEW OF SYSTEMS: Unable to obtain. REVIEW OF SYSTEMS: As mentioned as above. I have discussed the patient with RN and RT. Other systems are otherwise negative. PHYSICAL EXAMINATION: GENERAL: This is an elderly lady. VITAL SIGNS: Her O2 saturation on 40% FIO2 is 98%, respiratory rate 18, heart rate 69, blood pressure 121/59, temperature 99. HEENT: Normocephalic, atraumatic. Pupils equal, round, reactive to light. Nose is clear. NECK: Tracheostomy tube site is okay, there is some drainage coming around the tracheostomy tube site. There is no JVD, lymphadenopathy or thyromegaly. CARDIOVASCULAR: Regular rate and rhythm. Distant heart sounds. CHEST: Inspection is normal. LUNGS: There are bibasilar crackles, dullness at the bases. ABDOMEN: Soft. Bowel sounds are good. There is no mass. EXTREMITIES: There is no edema. LYMPHATICS: There is no lymphadenopathy. NEUROLOGIC: She opens her eyes at times and follows some commands at times. SKIN: Warm, chronic changes. LYMPHATICS: There is no lymphadenopathy. LABORATORY DATA: I reviewed the following lab data: Chest x-ray shows lower lobe infiltrate, right more than left. WBC 24.2, hemoglobin 12, platelets 388. Sodium 138, potassium 4.1, chloride 95, CO2 38, glucose 166, BUN 70, creatinine 1.8. ABG at midnight, pH 7.44, pCO2 55, pO2 49 on ventilator and 100% FIO2. IMPRESSION: 1. [id number] respiratory failure, multifactorial in etiology. 2. Abnormal chest x-ray. 3. Healthcare-associated pneumonia, I suspect this is bacterial pneumonia. 4. Laryngeal cancer status post laryngectomy. 5. Tracheostomy tube status. 6. History of methicillin-resistant staphylococcus aureus. 7. Leukocytosis. 8. Acute kidney injury. PLAN AND RECOMMENDATIONS: 1. Titrate FiO2 to keep O2 saturation 94%. 2. Continue ventilator support. Ventilator setting was reviewed. 3. Continue antibiotic. 4. Sputum culture and blood culture. Follow up cultures. 5. Bronchodilator. 6. Inhaled corticosteroid. 7. Protonix for stress ulcer prophylaxis. 8. Lovenox for DVT prophylaxis. 9. Continue IV fluid. 10. The findings and recommendations were discussed with RN and RT. Thank you very much for allowing me to participate in care of this very nice lady. SUZANNE STEINER M.D. LIZA Purcell JOB#: [id number] / [id number]
--- NOTE | 2017-06-07 20:15 | CONS ---
DATE OF CONSULTATION: 06/07/2017 REFERRING PHYSICIAN: Dr. Daily. REASON FOR CONSULTATION: Pneumonia. HISTORY OF PRESENT ILLNESS: This patient is a 77-year-old -Burm[place] female who presented to the Emergency Room with altered mental status changes and hypoxia, which have both since improved with mechanical ventilation. She has a history of chronic respiratory failure, status post tracheostomy. She was febrile with elevated white blood cell count of 24,000, segs 92% and a lactic acid of 1.4. A chest x-ray showed patchy areas of infiltrates/atelectasis involving both lower lobes. She was admitted with pneumonia and she was dosed with vancomycin and Zosyn. The patient has a history of laryngeal cancer and squamous cell carcinoma of the left lower lobe, status post chemoradiation. She has had multiple hospitalizations as well as recurrent pneumonia. Previous sputum cultures grew Pseudomonas aeruginosas, intermittent levofloxacin, otherwise sensitive; E. coli sensitive to cefepime, ceftriaxone, imipenem, gentamicin, otherwise resistant. The patient is currently in the intensive care unit. She remains on mechanical ventilation via tracheostomy. She mouths words and nods to questions. She is complaining of left heel pain. Denies injury/trauma to her foot. She denies shortness of air, chest discomfort or increased tracheal secretions. She denies chills or body aches. Denies nausea, vomiting or diarrhea. She has a PEG tube for nutritional support. Denies dysuria. Denies rash. PAST MEDICAL HISTORY: MRSA. Clostridium difficile in February 2017. Pseudomonas aeruginosas, intermediate levofloxacin, otherwise sensitive. E. coli sensitive to cefepime, ceftriaxone, imipenem, gentamicin, otherwise resistant. 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 Chronic respiratory failure. Hypertension, hypercholesterolemia, chronic obstructive pulmonary disease, asthma, sleep apnea, gastroesophageal reflux disease, arthritis, anxiety, chronic leukocytosis, peptic ulcer disease, deep vein thrombosis. PAST SURGICAL HISTORY: Tracheostomy, neck dissections, PEG tube placement, cataract extraction. FAMILY HISTORY: Positive for heart disease and cancer. SOCIAL HISTORY: The patient lives at home. She is a former smoker. She is a . She has a history of heavy alcohol use. ALLERGIES: ASPIRIN. MEDICATIONS: Vancomycin and Zosyn. Other medications are available and have been reviewed on the MAR. REVIEW OF SYSTEMS: Per HPI, otherwise all other review of systems are negative. PHYSICAL EXAMINATION: GENERAL: An -Burmese female, relaxed appearance, in no apparent distress. VITAL SIGNS: Temperature is 99.0, T-max 100.5, blood pressure 121/59, heart rate 69, respiratory rate 18, pulse oximetry is 100% on FiO2 at 40%. HEENT: Pupils equally round. Normal conjunctivae. Oral mucosa is pink and dry. Edentulous. NECK: She has a tracheostomy with clear secretions at the stoma site. LUNGS: Diminished aeration. HEART: Normal S1, S2. Regular rhythm. ABDOMEN: Mildly distended. Bowel sounds are present, soft, nontender. PEG tube intact. EXTREMITIES: No gross edema or cyanosis. SKIN: Without rash. No wounds noted. NEUROLOGIC: Arouses easily to name. Nods and mouths words. Follows commands. Port-A-Cath without signs of infection. LABORATORY DATA: Recent WBC 24.2, hemoglobin 12.0, platelet count 388,000, segs 92%, lymphocytes 5%. Sodium 138, potassium 4.1, creatinine 1.8, BUN 70, glucose 166. Lactic acid 1.4, total bilirubin 0.4, AST 34, ALT 23, albumin 3.2. Blood and sputum culture is pending. MRSA screen pending. Chest x-ray per HPI. IMPRESSION: 1. Healthcare acquired pneumonia. 2. Leukocytosis. 3. Acute on chronic respiratory failure. 4. Acute kidney injury. 5. History of laryngeal and lung cancer. 6. History of methicillin-resistant Staphylococcus aureus, pseudomonas and Clostridium difficile. PLAN: The patient is clinically improving. Continue the vancomycin and Zosyn for now. Monitor WBC count, renal function and temperature. We will follow up on morning laboratory values and cultures. Offload heels. Thank you, Dr. Daily for asking us to participate in this patient's care. Should you have further questions or concerns, please call. EMBER MADDEN MD DR: BROWN/sena JOB#: [id number] / [id number]
[2017-06-07] MEDS ORDERED: FAMOTIDINE 20 MG/2 ML VIAL IVP SCH (21:00)
[2017-06-08] VITALS (24 sets, daily range): BP systolic 97–188; BP diastolic 41–88
[2017-06-08] MEDS: MORPHINE SULFATE 4 MG/ML DISP.SYRIN. IV PRN ×2 (02:11→05:48)
[2017-06-08] MEDS: VANCOMYCIN 1 GM in IV NORMAL SALINE 250ML 250 ML IV SCH (02:20)
[2017-06-08 04:30] LABS: BASO % 0 % (0-3); EOS % 1 % (0-3); HEMATOCRIT 33.2 % (36.0-47.0); LYMPH # 2.3 x10^3/uL (1.0-4.8); LYMPH % 18 % (24-48); MEAN CORPUSCULAR HEMOGLOBIN 25 pg (25-35); MEAN CORPUSCULAR HGB CONC 30 g/dL (31-37); MEAN CORPUSCULAR VOLUME 83 fL (79-100); MONO % 9 % (0-9); NEUT % 73 % (31-73); PLATELET COUNT 313 x10^3/uL (140-400); RED BLOOD COUNT 4.01 x10^6/uL (3.50-5.40); RED CELL DISTRIBUTION WIDTH 16.5 % (11.5-14.5); WHITE BLOOD COUNT 13.1 x10^3/uL (4.0-11.0)
[2017-06-08 04:48] LABS: CALCIUM 8.1 mg/dL (8.5-10.1); CREATININE 1.2 mg/dL (0.6-1.0); GFR 52.9; POTASSIUM 3.5 mmol/L (3.5-5.1)
[2017-06-08] MEDS: PIPERACILLIN/TAZOBACTAM 2.25 GM in IV NORMAL SALINE 50ML 50 ML IV SCH ×3 (05:50→17:17)
--- NOTE | 2017-06-08 07:45 | PDOC ---
Infectious Disease Note Subjective Subjective pt is sleepy, on vent ROS ROS unable to do Vital Sign Vital Signs Vital Signs Date Time Temp Pulse Resp B/P (MAP) Pulse Ox O2 Delivery O2 Flow Rate FiO2 06/08/17 07:00 98.8 92 30 168/76 (106) 100 Ventilator 98.8 Physical Exam PHYSICAL EXAM GENERAL: NAD, on vent HEENT: PERRL, OC/OP NECK: Supple, no JVD, no LN LUNGS: Clear HEART: S1S2, no gallop, no murmur ABD: Soft, NT, no organomegaly, no rebound EXT: No edema, no cyanosis ADVERTISING JOB TITLES: Alert, oriented x 3, no focal neurologic deficit SKIN: No rash IV: ok Labs Lab Laboratory Tests Test 06/08/17 04:05 White Blood Count 13.1 x10^3/uL (4.0-11.0) Red Blood Count 4.01 x10^6/uL (3.50-5.40) Hemoglobin 10.0 g/dL (12.0-15.5) Hematocrit 33.2 % (36.0-47.0) Mean Corpuscular Volume 83 fL (79-100) Mean Corpuscular Hemoglobin 25 pg (25-35) Mean Corpuscular Hemoglobin Concent 30 g/dL (31-37) Red Cell Distribution Width 16.5 % (11.5-14.5) Platelet Count 313 x10^3/uL (140-400) Neutrophils (%) (Auto) 73 % (31-73) Lymphocytes (%) (Auto) 18 % (24-48) Monocytes (%) (Auto) 9 % (0-9) Eosinophils (%) (Auto) 1 % (0-3) Basophils (%) (Auto) 0 % (0-3) Neutrophils # (Auto) 9.6 x10^3uL (1.8-7.7) Lymphocytes # (Auto) 2.3 x10^3/uL (1.0-4.8) Monocytes # (Auto) 1.2 x10^3/uL (0.0-1.1) Eosinophils # (Auto) 0.1 x10^3/uL (0.0-0.7) Basophils # (Auto) 0.0 x10^3/uL (0.0-0.2) Sodium Level 145 mmol/L (136-145) Potassium Level 3.5 mmol/L (3.5-5.1) Chloride Level 108 mmol/L (98-107) Carbon Dioxide Level 33 mmol/L (21-32) Anion Gap 4 (6-14) Blood Urea Nitrogen 31 mg/dL (7-20) Creatinine 1.2 mg/dL (0.6-1.0) Estimated GFR (Cockcroft-Gault) 52.9 Glucose Level 91 mg/dL (70-99) Calcium Level 8.1 mg/dL (8.5-10.1) Micro culture neg Objective Assessment HCAP Leukocytosis Acute-on chronic respiratory failure SANCHEZ Hx laryngeal and lung cancer s/p chemoradiation HX MRSA, PSA and C. diff Dehydration Plan Plan of Care Clinically improving, continue vanc and Zosyn for now. Monitor WBC, renal function and temp f/u cultures Off load heels ASTER MATOS MD Jun 08, 2017 07:45
[2017-06-08] MEDS: IPRATRPIUM/ALBUTEROL 0.5/2.5MG 3 ML NEBU. NEB SCH ×5 (08:06→20:22)
[2017-06-08] MEDS: BUDESONIDE 0.5 MG/2 ML NEBU. NEB SCH (08:06)
[2017-06-08] MEDS: CHLORTHALIDONE 25 MG TABLET. PEG SCH (08:38)
[2017-06-08] MEDS: CYPROHEPTADINE 4 MG TABLET. PEG SCH ×2 (08:38→21:06)
[2017-06-08] MEDS: METOCLOPRAMIDE 5 MG TABLET. PO SCH ×4 (08:39→21:06)
[2017-06-08] MEDS: LANSOPRAZOLE 30 MG TAB.RAP.DR PEG SCH ×2 (08:39→17:16)
[2017-06-08] MEDS: ATENOLOL 50 MG TABLET. PEG SCH (08:39)
[2017-06-08] MEDS: DONEPEZIL HCL 5 MG TABLET. PEG SCH ×2 (08:39→21:06)
[2017-06-08] MEDS: oxyCODONE/APAP 7.5/325 1 TAB TABLET PO PRN ×2 (08:40→17:16)
[2017-06-08] MEDS: ENOXAPARIN 30 MG/0.3 ML SYRINGE. SQ SCH (08:40)
[2017-06-08] MEDS: VANCOMYCIN PER PHARMACY MC PRN (08:52)
[2017-06-08 09:49] LABS: HCO3 ABG 24 mmol/L (21-28); PCO2 ABG 36 mmHg (35-46); PH ABG 7.43 (7.35-7.45); PO2 ABG 107 mmHg (65-108); SAT O2 ABG 98 % (92-99)
[2017-06-08 09:53] LABS: FIO2 ABG 35
--- NOTE | 2017-06-08 10:24 | RAD ---
Examination: Single frontal view of the chest History: History of respiratory failure Comparison: 06/06/2017 Findings: The cardiomediastinal silhouette grossly appears unremarkable. Right-sided Port-A-Cath is unchanged. Tracheostomy tube is in place. The cardiomediastinal silhouette grossly appears unchanged. Patchy foci of airspace opacities identified in the bibasal lungs, right greater than left , grossly similar to prior exam. Impression: Patchy airspace opacities identified in the bibasal lungs, right greater than left , appear similar to prior exam.
[2017-06-08] MEDS: fentaNYL 50MCG/HR PATCH 1 PATCH PATCH.TD72 TD SCH (10:30)
--- NOTE | 2017-06-08 10:41 | PDOC ---
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, has trach Dysphagia , PEG htn COPD h/o cdiff h/o MRSA h/O pseudomanos PNA SANCHEZ, vasomotor mild malnutrition Sepsis with HAP plan: PULM, ID consulted cont home meds, hold ACEi got 2.6L in ER cont PEG feeding ICU care, on vent with trach, fu with pulm to see if can off vent duoneb, albuterol prn on zosyn and vanco sputum cx labs tmr DVT, GI PPX PTOT check cdiff for diarrhea given h/o cdiff History of Present Illness History of Present Illness ROS: no fever, chills, still trach with vent on c/o chest pain some time on PEG feeding has diarrhea overnight labs better Vitals Vitals Vital Signs Date Time Temp Pulse Resp B/P (MAP) Pulse Ox O2 Delivery O2 Flow Rate FiO2 06/08/17 10:00 90 28 97/41 (59) 100 Ventilator 06/08/17 07:00 98.8 98.8 Physical Exam General: Alert, Oriented X3 Heart: Regular rate, Normal S1, Normal S2 Lungs: Other (bl coarse bs) Abdomen: Normal bowel sounds, Soft Extremities: No clubbing, No cyanosis Skin: No rashes, No breakdown Labs LABS Laboratory Tests Test 06/08/17 04:05 06/08/17 09:20 White Blood Count 13.1 x10^3/uL (4.0-11.0) Red Blood Count 4.01 x10^6/uL (3.50-5.40) Hemoglobin 10.0 g/dL (12.0-15.5) Hematocrit 33.2 % (36.0-47.0) Mean Corpuscular Volume 83 fL (79-100) Mean Corpuscular Hemoglobin 25 pg (25-35) Mean Corpuscular Hemoglobin Concent 30 g/dL (31-37) Red Cell Distribution Width 16.5 % (11.5-14.5) Platelet Count 313 x10^3/uL (140-400) Neutrophils (%) (Auto) 73 % (31-73) Lymphocytes (%) (Auto) 18 % (24-48) Monocytes (%) (Auto) 9 % (0-9) Eosinophils (%) (Auto) 1 % (0-3) Basophils (%) (Auto) 0 % (0-3) Neutrophils # (Auto) 9.6 x10^3uL (1.8-7.7) Lymphocytes # (Auto) 2.3 x10^3/uL (1.0-4.8) Monocytes # (Auto) 1.2 x10^3/uL (0.0-1.1) Eosinophils # (Auto) 0.1 x10^3/uL (0.0-0.7) Basophils # (Auto) 0.0 x10^3/uL (0.0-0.2) Sodium Level 145 mmol/L (136-145) Potassium Level 3.5 mmol/L (3.5-5.1) Chloride Level 108 mmol/L (98-107) Carbon Dioxide Level 33 mmol/L (21-32) Anion Gap 4 (6-14) Blood Urea Nitrogen 31 mg/dL (7-20) Creatinine 1.2 mg/dL (0.6-1.0) Estimated GFR (Cockcroft-Gault) 52.9 Glucose Level 91 mg/dL (70-99) Calcium Level 8.1 mg/dL (8.5-10.1) O2 Saturation 98 % (92-99) Arterial Blood pH 7.43 (7.35-7.45) Arterial Blood pCO2 at Patient Temp 36 mmHg (35-46) Arterial Blood pO2 at Patient Temp 107 mmHg (65-108) Arterial Blood HCO3 24 mmol/L (21-28) Arterial Blood Base Excess 0 mmol/L (-3-3) FiO2 35 Assessment and Plan Assessmemt and Plan Problems Medical Problems: (1) Healthcare-associated pneumonia Status: Acute (2) Sepsis Status: Acute Problems: Comment Review of Relevant I have reviewed the following items miko (where applicable) has been applied. Labs Laboratory Tests Test 06/06/17 23:35 06/07/17 00:52 06/07/17 01:00 06/07/17 01:50 White Blood Count 24.2 x10^3/uL (4.0-11.0) Red Blood Count 4.76 x10^6/uL (3.50-5.40) Hemoglobin 12.0 g/dL (12.0-15.5) Hematocrit 38.8 % (36.0-47.0) Mean Corpuscular Volume 82 fL (79-100) Mean Corpuscular Hemoglobin 25 pg (25-35) Mean Corpuscular Hemoglobin Concent 31 g/dL (31-37) Red Cell Distribution Width 16.9 % (11.5-14.5) Platelet Count 388 x10^3/uL (140-400) Neutrophils (%) (Auto) 91 % (31-73) Lymphocytes (%) (Auto) 5 % (24-48) Monocytes (%) (Auto) 4 % (0-9) Eosinophils (%) (Auto) 0 % (0-3) Basophils (%) (Auto) 1 % (0-3) Neutrophils # (Auto) 22.0 x10^3uL (1.8-7.7) Lymphocytes # (Auto) 1.2 x10^3/uL (1.0-4.8) Monocytes # (Auto) 0.9 x10^3/uL (0.0-1.1) Eosinophils # (Auto) 0.0 x10^3/uL (0.0-0.7) Basophils # (Auto) 0.1 x10^3/uL (0.0-0.2) Segmented Neutrophils % 92 % (35-66) Lymphocytes % 5 % (24-48) Monocytes % 3 % (0-10) Platelet Estimate Adequate (ADEQUATE) Polychromasia Slight Anisocytosis Slight Sodium Level 138 mmol/L (136-145) Potassium Level 4.1 mmol/L (3.5-5.1) Chloride Level 95 mmol/L (98-107) Carbon Dioxide Level 38 mmol/L (21-32) Anion Gap 5 (6-14) Blood Urea Nitrogen 70 mg/dL (7-20) Creatinine 1.8 mg/dL (0.6-1.0) Estimated GFR (Cockcroft-Gault) 33.1 BUN/Creatinine Ratio 39 (6-20) Glucose Level 166 mg/dL (70-99) Calcium Level 9.2 mg/dL (8.5-10.1) Total Bilirubin 0.4 mg/dL (0.2-1.0) Aspartate Amino Transf (AST/SGOT) 34 U/L (15-37) Alanine Aminotransferase (ALT/SGPT) 23 U/L (14-59) Alkaline Phosphatase 96 U/L (46-116) Total Protein 9.1 g/dL (6.4-8.2) Albumin 3.2 g/dL (3.4-5.0) Albumin/Globulin Ratio 0.5 (1.0-1.7) O2 Saturation 100 % (92-99) Arterial Blood pH 7.44 (7.35-7.45) Arterial Blood pCO2 at Patient Temp 55 mmHg (35-46) Arterial Blood pO2 at Patient Temp 492 mmHg (65-108) Arterial Blood HCO3 37 mmol/L (21-28) Arterial Blood Base Excess 10 mmol/L (-3-3) FiO2 100.0 Lactic Acid Level 1.4 mmol/L (0.4-2.0) Nasal Screen MRSA (PCR) Negative (Negative) Test 06/07/17 07:30 06/08/17 04:05 06/08/17 09:20 O2 Saturation 98 % (92-99) 98 % (92-99) Arterial Blood pH 7.51 (7.35-7.45) 7.43 (7.35-7.45) Arterial Blood pCO2 at Patient Temp 37 mmHg (35-46) 36 mmHg (35-46) Arterial Blood pO2 at Patient Temp 115 mmHg (65-108) 107 mmHg (65-108) Arterial Blood HCO3 29 mmol/L (21-28) 24 mmol/L (21-28) Arterial Blood Base Excess 6 mmol/L (-3-3) 0 mmol/L (-3-3) FiO2 40 35 White Blood Count 13.1 x10^3/uL (4.0-11.0) Red Blood Count 4.01 x10^6/uL (3.50-5.40) Hemoglobin 10.0 g/dL (12.0-15.5) Hematocrit 33.2 % (36.0-47.0) Mean Corpuscular Volume 83 fL (79-100) Mean Corpuscular Hemoglobin 25 pg (25-35) Mean Corpuscular Hemoglobin Concent 30 g/dL (31-37) Red Cell Distribution Width 16.5 % (11.5-14.5) Platelet Count 313 x10^3/uL (140-400) Neutrophils (%) (Auto) 73 % (31-73) Lymphocytes (%) (Auto) 18 % (24-48) Monocytes (%) (Auto) 9 % (0-9) Eosinophils (%) (Auto) 1 % (0-3) Basophils (%) (Auto) 0 % (0-3) Neutrophils # (Auto) 9.6 x10^3uL (1.8-7.7) Lymphocytes # (Auto) 2.3 x10^3/uL (1.0-4.8) Monocytes # (Auto) 1.2 x10^3/uL (0.0-1.1) Eosinophils # (Auto) 0.1 x10^3/uL (0.0-0.7) Basophils # (Auto) 0.0 x10^3/uL (0.0-0.2) Sodium Level 145 mmol/L (136-145) Potassium Level 3.5 mmol/L (3.5-5.1) Chloride Level 108 mmol/L (98-107) Carbon Dioxide Level 33 mmol/L (21-32) Anion Gap 4 (6-14) Blood Urea Nitrogen 31 mg/dL (7-20) Creatinine 1.2 mg/dL (0.6-1.0) Estimated GFR (Cockcroft-Gault) 52.9 Glucose Level 91 mg/dL (70-99) Calcium Level 8.1 mg/dL (8.5-10.1) Laboratory Tests Test 06/08/17 04:05 06/08/17 09:20 White Blood Count 13.1 x10^3/uL (4.0-11.0) Red Blood Count 4.01 x10^6/uL (3.50-5.40) Hemoglobin 10.0 g/dL (12.0-15.5) Hematocrit 33.2 % (36.0-47.0) Mean Corpuscular Volume 83 fL (79-100) Mean Corpuscular Hemoglobin 25 pg (25-35) Mean Corpuscular Hemoglobin Concent 30 g/dL (31-37) Red Cell Distribution Width 16.5 % (11.5-14.5) Platelet Count 313 x10^3/uL (140-400) Neutrophils (%) (Auto) 73 % (31-73) Lymphocytes (%) (Auto) 18 % (24-48) Monocytes (%) (Auto) 9 % (0-9) Eosinophils (%) (Auto) 1 % (0-3) Basophils (%) (Auto) 0 % (0-3) Neutrophils # (Auto) 9.6 x10^3uL (1.8-7.7) Lymphocytes # (Auto) 2.3 x10^3/uL (1.0-4.8) Monocytes # (Auto) 1.2 x10^3/uL (0.0-1.1) Eosinophils # (Auto) 0.1 x10^3/uL (0.0-0.7) Basophils # (Auto) 0.0 x10^3/uL (0.0-0.2) Sodium Level 145 mmol/L (136-145) Potassium Level 3.5 mmol/L (3.5-5.1) Chloride Level 108 mmol/L (98-107) Carbon Dioxide Level 33 mmol/L (21-32) Anion Gap 4 (6-14) Blood Urea Nitrogen 31 mg/dL (7-20) Creatinine 1.2 mg/dL (0.6-1.0) Estimated GFR (Cockcroft-Gault) 52.9 Glucose Level 91 mg/dL (70-99) Calcium Level 8.1 mg/dL (8.5-10.1) O2 Saturation 98 % (92-99) Arterial Blood pH 7.43 (7.35-7.45) Arterial Blood pCO2 at Patient Temp 36 mmHg (35-46) Arterial Blood pO2 at Patient Temp 107 mmHg (65-108) Arterial Blood HCO3 24 mmol/L (21-28) Arterial Blood Base Excess 0 mmol/L (-3-3) FiO2 35 Microbiology 06/07/17 Blood Culture - Preliminary, Resulted NO GROWTH AFTER 1 DAY 06/07/17 - Final, Complete 06/07/17 - Final, Complete 06/07/17 - Final, Complete 06/07/17 Gram Stain Evaluation - Final, Complete Medications Current Medications Albuterol/ Ipratropium (Duoneb) 3 ml 1X ONCE NEB Last administered on 00:01; Start 06/06/17 at 23:30; Stop 06/06/17 at 23:31; Status DC Vancomycin HCl (Vanco Per Pharmacy) 1 each PRN DAILY PRN MC SEE COMMENTS Last administered on 06/08/17 08:52; Start 06/07/17 at 01:00 Piperacillin Sod/ Tazobactam Sod (Zosyn Per Pharmacy) 1 each PRN DAILY PRN MC SEE COMMENTS; Start 06/07/17 at 01:00 Sodium Chloride 2,790 ml @ 2,790 mls/hr Q1H IV Last administered on 06/07/17 04:20; Start 06/07/17 at 01:00; Stop 06/07/17 at 04:26; Status DC Ondansetron HCl (Zofran) 4 mg PRN Q8HRS PRN IV NAUSEA/VOMITING; Start 06/07/17 at 01:00; Stop 06/07/17 at 09:00; Status DC Vancomycin HCl 1.5 gm/Sodium Chloride 500 ml @ 250 mls/hr 1X ONCE IV Last administered on 06/07/17 01:53; Start 06/07/17 at 01:30; Stop 06/07/17 at 03:29 ; Status DC Piperacillin Sod/ Tazobactam Sod 2.25 gm/Sodium Chloride 50 ml @ 100 mls/hr Q6HRS IV Last administered on 06/08/17 05:50; Start 06/07/17 at 01:30 Vancomycin HCl 1 gm/Sodium Chloride 250 ml @ 250 mls/hr Q24H IV Last administered on 06/08/17 02:20; Start 06/08/17 at 02:00 Vancomycin HCl 1 each 1X ONCE MC ; Start 06/09/17 at 01:30; Stop 06/09/17 at 01 :31 Info (Do NOT chart on this placeholder) 1 each 1X ONCE MC ; Start 06/07/17 at 08:00; Stop 06/07/17 at 08:01; Status UNV Influenza Virus Vaccine Quadrival (Fluarix Quad [id number] Syringe) 0.5 ml ONCE ONCE VAX IM ; Start 06/07/17 at 09:00; Stop 06/07/17 at 09:01; Status Cancel Pantoprazole Sodium (Protonix) 40 mg DAILYAC PO ; Start 06/07/17 at 08:00; Stop 06/07/17 at 08:12; Status DC Enoxaparin Sodium (Lovenox 30mg Syringe) 30 mg Q24H SQ Last administered on 08:40; Start 06/07/17 at 08:00 Albuterol/ Ipratropium (Duoneb) 3 ml RTQID NEB Last administered on 06/08/17 08:06; Start 06/07/17 at 08:00 Budesonide (Pulmicort) 0.5 mg RTBID NEB Last administered on 06/08/17 08:06; Start 06/07/17 at 08:00 Famotidine (Pepcid) 20 mg QHS IVP ; Start 06/07/17 at 21:00; Stop 06/07/17 at 21 :00; Status DC Donepezil HCl (Aricept) 5 mg BID PEG Last administered on 06/08/17 08:39; Start 06/07/17 at 09:30 Fentanyl (Duragesic 50mcg/ Hr Patch) 1 patch Q3DAYS TD ; Start 06/07/17 at 09:00 ; Stop 06/07/17 at 09:00; Status DC Metoclopramide HCl (Reglan) 5 mg QIDAFTMEAL PO Last administered on 06/08/17 08:39; Start 06/07/17 at 09:30 Oxycodone/ Acetaminophen (Percocet 7.5/ 325) 1 tab PRN QID PRN PO PAIN Last administered on 06/08/17 08:40; Start 06/07/17 at 08:45 Pantoprazole Sodium (Protonix) 40 mg BID PO ; Start 06/07/17 at 09:00; Stop at 09:05; Status DC Albuterol Sulfate (Ventolin Neb Soln) 2.5 mg PRN Q4HRS PRN NEB SHORTNESS OF BREATH; Start 06/07/17 at 09:15 Atenolol (Tenormin) 50 mg DAILY PEG Last administered on 06/08/17 08:39; Start 06/07/17 at 09:30 Cyproheptadine HCl (Periactin) 2 mg BID PEG Last administered on 06/08/17 08: 38; Start 06/07/17 at 09:30 Non-Formulary Medication 160 mg DAILY PEG ; Start 06/07/17 at 09:00; Stop at 09:00; Status DC Acetaminophen (Tylenol) 650 mg PRN Q6HRS PRN PO FEVER; Start 06/07/17 at 08:45 Ondansetron HCl (Zofran) 4 mg PRN Q6HRS PRN IV NAUSEA/VOMITING; Start 06/07/17 at 08:45 Morphine Sulfate 2 mg PRN Q2HR PRN IV PAIN Last administered on 06/08/17 05:48 ; Start 06/07/17 at 09:00 Tramadol HCl (Ultram) 50 mg PRN Q6HRS PRN PO PAIN; Start 06/07/17 at 08:45 Hydralazine HCl (Apresoline) 10 mg PRN Q4HRS PRN IVP ELEVATED BP, SEE COMMENTS ; Start 06/07/17 at 08:45 Docusate Sodium (Colace) 100 mg PRN DAILY PRN PO CONSTIPATION; Start 06/07/17 at 08:45 Fentanyl (Duragesic 50mcg/ Hr Patch) 1 patch Q3DAYS TD ; Start 06/08/17 at 10:30 Lansoprazole (Prevacid) 30 mg BIDBFRMEAL PEG Last administered on 06/08/17 08: 39; Start 06/07/17 at 09:30 Chlorthalidone (Thalitone) 25 mg DAILY PEG Last administered on 06/08/17 08:38 ; Start 06/07/17 at 09:30 Influenza Virus Vaccine Quadrival (Fluarix Quad [id number] Syringe) 0.5 ml ONCE ONCE VAX IM ; Start 06/10/17 at 09:00; Stop 06/10/17 at 09:01 Active Scripts Active Reported Diovan (Valsartan) 160 Mg Tablet 160 Mg PEG DAILY Pantoprazole Sodium 40 Mg Tablet. 40 Mg PEG BID Donepezil Hcl 5 Mg Tablet 5 Mg PEG BID Reglan (Metoclopramide Hcl) 10 Mg Tablet 5 Mg PO QIDAFTMEAL Atenolol-Chlorthal 50-25 Tb (Atenolol/Chlorthalidone) 1 Each Tablet 1 Tab PEG DAILY Cyproheptadine Hcl 2 Mg/5 Ml Syrup 2 Mg PEG BID Percocet 7.5-325 Mg Tablet (Oxycodone/Acetaminophen) 1 Each Tablet 1 Tab PO QID PRN Proair Hfa Inhaler (Albuterol Sulfate) 8.5 Gm Hfa.aer.ad 2 Puff IH PRN Q4-6HRS FENTANYL 50mcg/hr (Fentanyl) 1 Each Patch.td72 1 Patch TP Q3DAYS Ondansetron Odt (Ondansetron) 4 Mg Tab.rapdis 4 Mg PEG QIDPRN PRN Vitals/I & O Vital Sign - Last 24 Hours 06/07/17 06/07/17 06/07/17 06/07/17 11:00 11:25 12:00 12:00 Temp 99.1 99.1 Pulse 71 78 Resp 15 15 B/P (MAP) 104/54 (71) 120/54 (76) Pulse Ox 100 100 100 O2 Delivery Ventilator Ventilator Ventilator Mechanical Ventilator 06/07/17 06/07/17 06/07/17 06/07/17 12:55 13:00 13:34 14:00 Pulse 80 76 Resp 15 15 B/P (MAP) 153/60 (91) 118/57 (77) Pulse Ox 100 100 99 O2 Delivery Ventilator Ventilator Ventilator Ventilator 06/07/17 06/07/17 06/07/17 06/07/17 15:00 15:12 15:31 16:00 Temp 98.9 98.9 Pulse 75 73 Resp 15 15 B/P (MAP) 117/68 (84) 101/52 (68) Pulse Ox 100 100 99 O2 Delivery Ventilator Ventilator Ventilator Ventilator 06/07/17 06/07/17 06/07/17 06/07/17 16:00 17:00 18:00 18:00 Pulse 72 76 Resp 15 15 B/P (MAP) 105/52 (69) 109/50 (69) Pulse Ox 100 100 99 O2 Delivery Mechanical Ventilator Ventilator Ventilator Ventilator 06/07/17 06/07/17 06/07/17 06/07/17 19:00 19:57 19:59 20:00 Temp 98.3 98.3 Pulse 84 Resp 19 B/P (MAP) 118/54 (75) Pulse Ox 99 100 100 O2 Delivery Ventilator Ventilator Ventilator Mechanical Ventilator 06/07/17 06/07/17 06/07/17 06/07/17 20:00 20:42 21:00 22:00 Pulse 82 80 69 Resp 18 24 24 16 B/P (MAP) 140/64 (89) 122/58 (79) 115/60 (78) Pulse Ox 99 100 100 100 O2 Delivery Ventilator Ventilator Ventilator Ventilator 06/07/17 06/07/17 06/07/17 06/08/17 22:23 23:00 23:19 00:00 Temp 98.7 98.7 Pulse 70 Resp 15 B/P (MAP) 137/62 (87) Pulse Ox 100 100 100 O2 Delivery Ventilator Ventilator Ventilator Mechanical Ventilator 06/08/17 06/08/17 06/08/17 06/08/17 00:19 01:00 02:00 02:11 Pulse 70 71 Resp 18 18 23 B/P (MAP) 145/68 (93) 156/74 (101) Pulse Ox 100 100 100 100 O2 Delivery Ventilator Ventilator Ventilator 06/08/17 06/08/17 06/08/17 06/08/17 02:25 03:00 04:00 04:00 Temp 98.5 98.5 Pulse 67 75 Resp 15 18 B/P (MAP) 147/67 (93) 141/71 (94) Pulse Ox 100 100 100 O2 Delivery Ventilator Ventilator Mechanical Ventilator Ventilator 06/08/17 06/08/17 06/08/17 06/08/17 05:00 05:16 05:48 06:00 Temp 98.5 98.5 Pulse 74 81 Resp 23 23 30 B/P (MAP) 178/84 (115) 188/79 (115) Pulse Ox 100 100 100 100 O2 Delivery Ventilator Ventilator Ventilator Ventilator 06/08/17 06/08/17 06/08/17 06/08/17 07:00 07:55 08:00 08:06 Temp 98.8 98.8 Pulse 92 87 Resp 30 24 B/P (MAP) 168/76 (106) 121/53 (75) Pulse Ox 100 100 100 O2 Delivery Ventilator Mechanical Ventilator Ventilator Ventilator 06/08/17 06/08/17 06/08/17 06/08/17 08:39 08:40 09:00 09:45 Pulse 87 90 Resp 28 28 22 B/P (MAP) 121/53 142/80 (100) Pulse Ox 100 100 100 O2 Delivery Ventilator Ventilator Ventilator 06/08/17 10:00 Pulse 90 Resp 28 B/P (MAP) 97/41 (59) Pulse Ox 100 O2 Delivery Ventilator Intake and Output 06/08/17 06/08/17 06/09/17 15:00 23:00 07:00 Intake Total 440 ml Balance 440 ml JAVIER IRVIN MD Jun 08, 2017 10:41
[2017-06-08] MEDS: ONDANSETRON PF 4 MG/2 ML VIAL. IV PRN (10:43)
[2017-06-08] MEDS: hydrALAZINE 20 MG/ML VIAL. IVP PRN ×2 (11:12→22:40)
--- NOTE | 2017-06-08 12:32 | PDOC ---
PULMONARY PROGRESS NOTES Subjective PT ON VENT COMPLAINTS OF SOA AND CHEST DISCOMFORT Vitals Vital Signs Date Time Temp Pulse Resp B/P (MAP) Pulse Ox O2 Delivery O2 Flow Rate FiO2 06/08/17 12:00 78 20 99/57 (71) 99 Ventilator 06/08/17 11:00 99.0 99.0 General: Alert Lungs: Crackles Cardiovascular: S1, S2 Abdomen: Soft, Non-tender, Other Neuro Exam: Alert Extremities: No Edema Skin: Warm, Dry Labs Laboratory Tests Test 06/06/17 23:35 06/07/17 00:52 06/07/17 01:00 06/07/17 01:50 White Blood Count 24.2 x10^3/uL (4.0-11.0) Red Blood Count 4.76 x10^6/uL (3.50-5.40) Hemoglobin 12.0 g/dL (12.0-15.5) Hematocrit 38.8 % (36.0-47.0) Mean Corpuscular Volume 82 fL (79-100) Mean Corpuscular Hemoglobin 25 pg (25-35) Mean Corpuscular Hemoglobin Concent 31 g/dL (31-37) Red Cell Distribution Width 16.9 % (11.5-14.5) Platelet Count 388 x10^3/uL (140-400) Neutrophils (%) (Auto) 91 % (31-73) Lymphocytes (%) (Auto) 5 % (24-48) Monocytes (%) (Auto) 4 % (0-9) Eosinophils (%) (Auto) 0 % (0-3) Basophils (%) (Auto) 1 % (0-3) Neutrophils # (Auto) 22.0 x10^3uL (1.8-7.7) Lymphocytes # (Auto) 1.2 x10^3/uL (1.0-4.8) Monocytes # (Auto) 0.9 x10^3/uL (0.0-1.1) Eosinophils # (Auto) 0.0 x10^3/uL (0.0-0.7) Basophils # (Auto) 0.1 x10^3/uL (0.0-0.2) Segmented Neutrophils % 92 % (35-66) Lymphocytes % 5 % (24-48) Monocytes % 3 % (0-10) Platelet Estimate Adequate (ADEQUATE) Polychromasia Slight Anisocytosis Slight Sodium Level 138 mmol/L (136-145) Potassium Level 4.1 mmol/L (3.5-5.1) Chloride Level 95 mmol/L (98-107) Carbon Dioxide Level 38 mmol/L (21-32) Anion Gap 5 (6-14) Blood Urea Nitrogen 70 mg/dL (7-20) Creatinine 1.8 mg/dL (0.6-1.0) Estimated GFR (Cockcroft-Gault) 33.1 BUN/Creatinine Ratio 39 (6-20) Glucose Level 166 mg/dL (70-99) Calcium Level 9.2 mg/dL (8.5-10.1) Total Bilirubin 0.4 mg/dL (0.2-1.0) Aspartate Amino Transf (AST/SGOT) 34 U/L (15-37) Alanine Aminotransferase (ALT/SGPT) 23 U/L (14-59) Alkaline Phosphatase 96 U/L (46-116) Total Protein 9.1 g/dL (6.4-8.2) Albumin 3.2 g/dL (3.4-5.0) Albumin/Globulin Ratio 0.5 (1.0-1.7) O2 Saturation 100 % (92-99) Arterial Blood pH 7.44 (7.35-7.45) Arterial Blood pCO2 at Patient Temp 55 mmHg (35-46) Arterial Blood pO2 at Patient Temp 492 mmHg (65-108) Arterial Blood HCO3 37 mmol/L (21-28) Arterial Blood Base Excess 10 mmol/L (-3-3) FiO2 100.0 Lactic Acid Level 1.4 mmol/L (0.4-2.0) Nasal Screen MRSA (PCR) Negative (Negative) Test 06/07/17 07:30 06/08/17 04:05 06/08/17 09:20 O2 Saturation 98 % (92-99) 98 % (92-99) Arterial Blood pH 7.51 (7.35-7.45) 7.43 (7.35-7.45) Arterial Blood pCO2 at Patient Temp 37 mmHg (35-46) 36 mmHg (35-46) Arterial Blood pO2 at Patient Temp 115 mmHg (65-108) 107 mmHg (65-108) Arterial Blood HCO3 29 mmol/L (21-28) 24 mmol/L (21-28) Arterial Blood Base Excess 6 mmol/L (-3-3) 0 mmol/L (-3-3) FiO2 40 35 White Blood Count 13.1 x10^3/uL (4.0-11.0) Red Blood Count 4.01 x10^6/uL (3.50-5.40) Hemoglobin 10.0 g/dL (12.0-15.5) Hematocrit 33.2 % (36.0-47.0) Mean Corpuscular Volume 83 fL (79-100) Mean Corpuscular Hemoglobin 25 pg (25-35) Mean Corpuscular Hemoglobin Concent 30 g/dL (31-37) Red Cell Distribution Width 16.5 % (11.5-14.5) Platelet Count 313 x10^3/uL (140-400) Neutrophils (%) (Auto) 73 % (31-73) Lymphocytes (%) (Auto) 18 % (24-48) Monocytes (%) (Auto) 9 % (0-9) Eosinophils (%) (Auto) 1 % (0-3) Basophils (%) (Auto) 0 % (0-3) Neutrophils # (Auto) 9.6 x10^3uL (1.8-7.7) Lymphocytes # (Auto) 2.3 x10^3/uL (1.0-4.8) Monocytes # (Auto) 1.2 x10^3/uL (0.0-1.1) Eosinophils # (Auto) 0.1 x10^3/uL (0.0-0.7) Basophils # (Auto) 0.0 x10^3/uL (0.0-0.2) Sodium Level 145 mmol/L (136-145) Potassium Level 3.5 mmol/L (3.5-5.1) Chloride Level 108 mmol/L (98-107) Carbon Dioxide Level 33 mmol/L (21-32) Anion Gap 4 (6-14) Blood Urea Nitrogen 31 mg/dL (7-20) Creatinine 1.2 mg/dL (0.6-1.0) Estimated GFR (Cockcroft-Gault) 52.9 Glucose Level 91 mg/dL (70-99) Calcium Level 8.1 mg/dL (8.5-10.1) Laboratory Tests Test 06/08/17 04:05 06/08/17 09:20 White Blood Count 13.1 x10^3/uL (4.0-11.0) Red Blood Count 4.01 x10^6/uL (3.50-5.40) Hemoglobin 10.0 g/dL (12.0-15.5) Hematocrit 33.2 % (36.0-47.0) Mean Corpuscular Volume 83 fL (79-100) Mean Corpuscular Hemoglobin 25 pg (25-35) Mean Corpuscular Hemoglobin Concent 30 g/dL (31-37) Red Cell Distribution Width 16.5 % (11.5-14.5) Platelet Count 313 x10^3/uL (140-400) Neutrophils (%) (Auto) 73 % (31-73) Lymphocytes (%) (Auto) 18 % (24-48) Monocytes (%) (Auto) 9 % (0-9) Eosinophils (%) (Auto) 1 % (0-3) Basophils (%) (Auto) 0 % (0-3) Neutrophils # (Auto) 9.6 x10^3uL (1.8-7.7) Lymphocytes # (Auto) 2.3 x10^3/uL (1.0-4.8) Monocytes # (Auto) 1.2 x10^3/uL (0.0-1.1) Eosinophils # (Auto) 0.1 x10^3/uL (0.0-0.7) Basophils # (Auto) 0.0 x10^3/uL (0.0-0.2) Sodium Level 145 mmol/L (136-145) Potassium Level 3.5 mmol/L (3.5-5.1) Chloride Level 108 mmol/L (98-107) Carbon Dioxide Level 33 mmol/L (21-32) Anion Gap 4 (6-14) Blood Urea Nitrogen 31 mg/dL (7-20) Creatinine 1.2 mg/dL (0.6-1.0) Estimated GFR (Cockcroft-Gault) 52.9 Glucose Level 91 mg/dL (70-99) Calcium Level 8.1 mg/dL (8.5-10.1) O2 Saturation 98 % (92-99) Arterial Blood pH 7.43 (7.35-7.45) Arterial Blood pCO2 at Patient Temp 36 mmHg (35-46) Arterial Blood pO2 at Patient Temp 107 mmHg (65-108) Arterial Blood HCO3 24 mmol/L (21-28) Arterial Blood Base Excess 0 mmol/L (-3-3) FiO2 35 Medications Active Scripts Medications Dose Route/Sig Max Daily Dose Days Date Category Diovan (Valsartan) 160 Mg Tablet 160 Mg PEG DAILY 03/11/17 Reported Pantoprazole Sodium 40 Mg Tablet.dr 40 Mg PEG BID 03/11/17 Reported Donepezil Hcl 5 Mg Tablet 5 Mg PEG BID 03/11/17 Reported Reglan (Metoclopramide Hcl) 10 Mg Tablet 5 Mg PO QIDAFTMEAL 03/11/17 Reported Atenolol-Chlorthal 50-25 Tb (Atenolol/Chlorthalidone) 1 Each Tablet 1 Tab PEG DAILY 03/11/17 Reported Cyproheptadine Hcl 2 Mg/5 Ml Syrup 2 Mg PEG BID 03/11/17 Reported Percocet 7.5-325 Mg Tablet (Oxycodone/Acetaminophen) 1 Each Tablet 1 Tab PO QID PRN 03/11/17 Reported Proair Hfa Inhaler (Albuterol Sulfate) 8.5 Gm Hfa.aer.ad 2 Puff IH PRN Q4-6HRS 08/16/15 Reported FENTANYL 50mcg/hr (Fentanyl) 1 Each Patch.td72 1 Patch TP Q3DAYS 06/19/14 Reported Ondansetron Odt (Ondansetron) 4 Mg Tab.rapdis 4 Mg PEG QIDPRN PRN 06/19/14 Reported Impression . 1. Nqviq-vl-veqxvak respiratory failure, multifactorial in etiology. 2. Abnormal chest x-ray. 3. suspect Gram pos and gram neg pneumonia 4. Laryngeal cancer status post laryngectomy. 5. Tracheostomy tube 6. History of methicillin-resistant staphylococcus aureus. 7. Leukocytosis. 8. Acute kidney injury. Plan . Continue antibx will change tube feeding to continues DVT/GI prophylaxis add benzo for anxiety d/w ANURAG SMITH MD Jun 08, 2017 12:32
[2017-06-08] MEDS ORDERED: FAMOTIDINE 20 MG TABLET. PEG SCH (21:00)
[2017-06-09] VITALS (20 sets, daily range): BP systolic 120–186; BP diastolic 60–104
[2017-06-09] MEDS: PIPERACILLIN/TAZOBACTAM 2.25 GM in IV NORMAL SALINE 50ML 50 ML IV SCH ×2 (00:17→05:31)
[2017-06-09] MEDS: VANCOMYCIN 1 GM in IV NORMAL SALINE 250ML 250 ML IV SCH (02:03)
[2017-06-09] MEDS: VANCOMYCIN PER PHARMACY MC PRN (02:39)
[2017-06-09 05:56] LABS: BASO % 0 % (0-3); EOS % 1 % (0-3); HEMATOCRIT 33.9 % (36.0-47.0); HEMOGLOBIN 10.4 g/dL (12.0-15.5); LYMPH # 2.1 x10^3/uL (1.0-4.8); LYMPH % 17 % (24-48); MEAN CORPUSCULAR HEMOGLOBIN 25 pg (25-35); MEAN CORPUSCULAR HGB CONC 31 g/dL (31-37); MEAN CORPUSCULAR VOLUME 81 fL (79-100); MONO % 8 % (0-9); NEUT % 74 % (31-73); PLATELET COUNT 356 x10^3/uL (140-400); RED BLOOD COUNT 4.19 x10^6/uL (3.50-5.40); RED CELL DISTRIBUTION WIDTH 16.8 % (11.5-14.5); WHITE BLOOD COUNT 12.9 x10^3/uL (4.0-11.0)
[2017-06-09 06:20] LABS: CALCIUM 8.8 mg/dL (8.5-10.1); GFR 65.2; POTASSIUM 3.7 mmol/L (3.5-5.1)
--- NOTE | 2017-06-09 07:46 | PDOC ---
Infectious Disease Note Subjective Subjective awake on vent ROS ROS no n/v/d/pain/fever Vital Sign Vital Signs Vital Signs Date Time Temp Pulse Resp B/P (MAP) Pulse Ox O2 Delivery O2 Flow Rate FiO2 06/09/17 06:00 77 15 165/78 (107) 93 Ventilator 06/09/17 04:00 99.1 99.1 Physical Exam PHYSICAL EXAM GENERAL: NAD, Alert on vent HEENT: PERRL, OC/OP NECK: Supple, no JVD, no LN LUNGS: Clear HEART: S1S2, no gallop, no murmur ABD: Soft, NT, no organomegaly, no rebound EXT: No edema, no cyanosis DERMATOLOGY PHYSICIAN: Alert, oriented x 3, no focal neurologic deficit SKIN: No rash IV: ok Labs Lab Laboratory Tests Test 06/08/17 09:20 06/09/17 01:24 06/09/17 05:35 O2 Saturation 98 % (92-99) Arterial Blood pH 7.43 (7.35-7.45) Arterial Blood pCO2 at Patient Temp 36 mmHg (35-46) Arterial Blood pO2 at Patient Temp 107 mmHg (65-108) Arterial Blood HCO3 24 mmol/L (21-28) Arterial Blood Base Excess 0 mmol/L (-3-3) FiO2 35 Vancomycin Level Trough 11.8 mcg/mL (10.0-20.0) Vancomycin Last Dose Date Vancomycin Last Dose Time 0200 White Blood Count 12.9 x10^3/uL (4.0-11.0) Red Blood Count 4.19 x10^6/uL (3.50-5.40) Hemoglobin 10.4 g/dL (12.0-15.5) Hematocrit 33.9 % (36.0-47.0) Mean Corpuscular Volume 81 fL (79-100) Mean Corpuscular Hemoglobin 25 pg (25-35) Mean Corpuscular Hemoglobin Concent 31 g/dL (31-37) Red Cell Distribution Width 16.8 % (11.5-14.5) Platelet Count 356 x10^3/uL (140-400) Neutrophils (%) (Auto) 74 % (31-73) Lymphocytes (%) (Auto) 17 % (24-48) Monocytes (%) (Auto) 8 % (0-9) Eosinophils (%) (Auto) 1 % (0-3) Basophils (%) (Auto) 0 % (0-3) Neutrophils # (Auto) 9.5 x10^3uL (1.8-7.7) Lymphocytes # (Auto) 2.1 x10^3/uL (1.0-4.8) Monocytes # (Auto) 1.0 x10^3/uL (0.0-1.1) Eosinophils # (Auto) 0.2 x10^3/uL (0.0-0.7) Basophils # (Auto) 0.0 x10^3/uL (0.0-0.2) Sodium Level 143 mmol/L (136-145) Potassium Level 3.7 mmol/L (3.5-5.1) Chloride Level 107 mmol/L (98-107) Carbon Dioxide Level 31 mmol/L (21-32) Anion Gap 5 (6-14) Blood Urea Nitrogen 17 mg/dL (7-20) Creatinine 1.0 mg/dL (0.6-1.0) Estimated GFR (Cockcroft-Gault) 65.2 Glucose Level 104 mg/dL (70-99) Calcium Level 8.8 mg/dL (8.5-10.1) Micro BC culture neg Sputum G neg rehan Objective Assessment HCAP Leukocytosis Acute-on chronic respiratory failure SANCHEZ Hx laryngeal and lung cancer s/p chemoradiation HX MRSA, PSA and C. diff Dehydration Plan Plan of Care Clinically improving, continue Zosyn for now. d/c vanc Monitor WBC, renal function and temp f/u cultures Off load heels ASTER MATOS MD Jun 09, 2017 07:46
[2017-06-09] MEDS: IPRATRPIUM/ALBUTEROL 0.5/2.5MG 3 ML NEBU. NEB SCH ×4 (08:02→19:27)
[2017-06-09 08:13] LABS: HCO3 ABG 27 mmol/L (21-28); PCO2 ABG 40 mmHg (35-46); PH ABG 7.44 (7.35-7.45); PO2 ABG 53 mmHg (65-108); SAT O2 ABG 87 % (92-99)
[2017-06-09 08:20] LABS: FIO2 ABG 35
[2017-06-09] MEDS: MORPHINE SULFATE 4 MG/ML DISP.SYRIN. IV PRN (09:01)
[2017-06-09] MEDS: CHLORTHALIDONE 25 MG TABLET. PEG SCH (09:20)
[2017-06-09] MEDS: CYPROHEPTADINE 4 MG TABLET. PEG SCH ×2 (09:21→21:22)
[2017-06-09] MEDS: ENOXAPARIN 30 MG/0.3 ML SYRINGE. SQ SCH (09:22)
[2017-06-09] MEDS: DONEPEZIL HCL 5 MG TABLET. PEG SCH ×2 (09:22→21:22)
[2017-06-09] MEDS: ATENOLOL 50 MG TABLET. PEG SCH (09:22)
[2017-06-09] MEDS: METOCLOPRAMIDE 5 MG TABLET. PO SCH ×4 (09:26→21:21)
[2017-06-09] MEDS: LANSOPRAZOLE 30 MG TAB.RAP.DR PEG SCH ×2 (09:26→18:56)
--- NOTE | 2017-06-09 11:05 | PDOC ---
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, has trach Dysphagia , PEG htn COPD h/o cdiff h/o MRSA h/O pseudomonas PNA SANCHEZ, vasomotor mild malnutrition Sepsis with HAP History of Present Illness History of Present Illness KNown to me Seen in ICU Awake watching tv, no distress TF running thru PEG On the vent thru trach Otherwise at baseline hAS GOOD ADLS - plays with grandkids ONIV ABx by ID - fulfilled sepsis criteria NO leg edema PLAN: CPm LAbs NO new IM orders COnt other supportive meds Vitals Vitals Vital Signs Date Time Temp Pulse Resp B/P (MAP) Pulse Ox O2 Delivery O2 Flow Rate FiO2 06/09/17 09:22 83 170/77 06/09/17 09:09 94 Ventilator 06/09/17 09:01 16 06/09/17 04:00 99.1 99.1 Physical Exam General: Alert, Oriented X3 Heart: Regular rate, Normal S1, Normal S2 Lungs: Crackles Abdomen: Normal bowel sounds, Soft Extremities: No clubbing, No cyanosis Skin: No rashes, No breakdown Labs LABS Laboratory Tests Test 06/09/17 01:24 06/09/17 05:35 06/09/17 08:05 Vancomycin Level Trough 11.8 mcg/mL (10.0-20.0) Vancomycin Last Dose Date Vancomycin Last Dose Time 020 White Blood Count 12.9 x10^3/uL (4.0-11.0) Red Blood Count 4.19 x10^6/uL (3.50-5.40) Hemoglobin 10.4 g/dL (12.0-15.5) Hematocrit 33.9 % (36.0-47.0) Mean Corpuscular Volume 81 fL (79-100) Mean Corpuscular Hemoglobin 25 pg (25-35) Mean Corpuscular Hemoglobin Concent 31 g/dL (31-37) Red Cell Distribution Width 16.8 % (11.5-14.5) Platelet Count 356 x10^3/uL (140-400) Neutrophils (%) (Auto) 74 % (31-73) Lymphocytes (%) (Auto) 17 % (24-48) Monocytes (%) (Auto) 8 % (0-9) Eosinophils (%) (Auto) 1 % (0-3) Basophils (%) (Auto) 0 % (0-3) Neutrophils # (Auto) 9.5 x10^3uL (1.8-7.7) Lymphocytes # (Auto) 2.1 x10^3/uL (1.0-4.8) Monocytes # (Auto) 1.0 x10^3/uL (0.0-1.1) Eosinophils # (Auto) 0.2 x10^3/uL (0.0-0.7) Basophils # (Auto) 0.0 x10^3/uL (0.0-0.2) Sodium Level 143 mmol/L (136-145) Potassium Level 3.7 mmol/L (3.5-5.1) Chloride Level 107 mmol/L (98-107) Carbon Dioxide Level 31 mmol/L (21-32) Anion Gap 5 (6-14) Blood Urea Nitrogen 17 mg/dL (7-20) Creatinine 1.0 mg/dL (0.6-1.0) Estimated GFR (Cockcroft-Gault) 65.2 Glucose Level 104 mg/dL (70-99) Calcium Level 8.8 mg/dL (8.5-10.1) O2 Saturation 87 % (92-99) Arterial Blood pH 7.44 (7.35-7.45) Arterial Blood pCO2 at Patient Temp 40 mmHg (35-46) Arterial Blood pO2 at Patient Temp 53 mmHg (65-108) Arterial Blood HCO3 27 mmol/L (21-28) Arterial Blood Base Excess 3 mmol/L (-3-3) FiO2 35 Review of Systems Review of Systems denies 14 pt Assessment and Plan Assessmemt and Plan Problems Medical Problems: (1) Healthcare-associated pneumonia Status: Acute (2) Sepsis Status: Acute Problems: Comment Review of Relevant I have reviewed the following items miko (where applicable) has been applied. Labs Laboratory Tests Test 06/08/17 04:05 06/08/17 09:20 06/09/17 01:24 06/09/17 05:35 White Blood Count 13.1 x10^3/uL (4.0-11.0) 12.9 x10^3/uL (4.0-11.0) Red Blood Count 4.01 x10^6/uL (3.50-5.40) 4.19 x10^6/uL (3.50-5.40) Hemoglobin 10.0 g/dL (12.0-15.5) 10.4 g/dL (12.0-15.5) Hematocrit 33.2 % (36.0-47.0) 33.9 % (36.0-47.0) Mean Corpuscular Volume 83 fL (79-100) 81 fL (79-100) Mean Corpuscular Hemoglobin 25 pg (25-35) 25 pg (25-35) Mean Corpuscular Hemoglobin Concent 30 g/dL (31-37) 31 g/dL (31-37) Red Cell Distribution Width 16.5 % (11.5-14.5) 16.8 % (11.5-14.5) Platelet Count 313 x10^3/uL (140-400) 356 x10^3/uL (140-400) Neutrophils (%) (Auto) 73 % (31-73) 74 % (31-73) Lymphocytes (%) (Auto) 18 % (24-48) 17 % (24-48) Monocytes (%) (Auto) 9 % (0-9) 8 % (0-9) Eosinophils (%) (Auto) 1 % (0-3) 1 % (0-3) Basophils (%) (Auto) 0 % (0-3) 0 % (0-3) Neutrophils # (Auto) 9.6 x10^3uL (1.8-7.7) 9.5 x10^3uL (1.8-7.7) Lymphocytes # (Auto) 2.3 x10^3/uL (1.0-4.8) 2.1 x10^3/uL (1.0-4.8) Monocytes # (Auto) 1.2 x10^3/uL (0.0-1.1) 1.0 x10^3/uL (0.0-1.1) Eosinophils # (Auto) 0.1 x10^3/uL (0.0-0.7) 0.2 x10^3/uL (0.0-0.7) Basophils # (Auto) 0.0 x10^3/uL (0.0-0.2) 0.0 x10^3/uL (0.0-0.2) Sodium Level 145 mmol/L (136-145) 143 mmol/L (136-145) Potassium Level 3.5 mmol/L (3.5-5.1) 3.7 mmol/L (3.5-5.1) Chloride Level 108 mmol/L (98-107) 107 mmol/L (98-107) Carbon Dioxide Level 33 mmol/L (21-32) 31 mmol/L (21-32) Anion Gap 4 (6-14) 5 (6-14) Blood Urea Nitrogen 31 mg/dL (7-20) 17 mg/dL (7-20) Creatinine 1.2 mg/dL (0.6-1.0) 1.0 mg/dL (0.6-1.0) Estimated GFR (Cockcroft-Gault) 52.9 65.2 Glucose Level 91 mg/dL (70-99) 104 mg/dL (70-99) Calcium Level 8.1 mg/dL (8.5-10.1) 8.8 mg/dL (8.5-10.1) O2 Saturation 98 % (92-99) Arterial Blood pH 7.43 (7.35-7.45) Arterial Blood pCO2 at Patient Temp 36 mmHg (35-46) Arterial Blood pO2 at Patient Temp 107 mmHg (65-108) Arterial Blood HCO3 24 mmol/L (21-28) Arterial Blood Base Excess 0 mmol/L (-3-3) FiO2 35 Vancomycin Level Trough 11.8 mcg/mL (10.0-20.0) Vancomycin Last Dose Date Vancomycin Last Dose Time 199 Test 06/09/17 08:05 O2 Saturation 87 % (92-99) Arterial Blood pH 7.44 (7.35-7.45) Arterial Blood pCO2 at Patient Temp 40 mmHg (35-46) Arterial Blood pO2 at Patient Temp 53 mmHg (65-108) Arterial Blood HCO3 27 mmol/L (21-28) Arterial Blood Base Excess 3 mmol/L (-3-3) FiO2 35 Laboratory Tests Test 06/09/17 01:24 06/09/17 05:35 06/09/17 08:05 Vancomycin Level Trough 11.8 mcg/mL (10.0-20.0) Vancomycin Last Dose Date [id number] Vancomycin Last Dose Time 0200 White Blood Count 12.9 x10^3/uL (4.0-11.0) Red Blood Count 4.19 x10^6/uL (3.50-5.40) Hemoglobin 10.4 g/dL (12.0-15.5) Hematocrit 33.9 % (36.0-47.0) Mean Corpuscular Volume 81 fL (79-100) Mean Corpuscular Hemoglobin 25 pg (25-35) Mean Corpuscular Hemoglobin Concent 31 g/dL (31-37) Red Cell Distribution Width 16.8 % (11.5-14.5) Platelet Count 356 x10^3/uL (140-400) Neutrophils (%) (Auto) 74 % (31-73) Lymphocytes (%) (Auto) 17 % (24-48) Monocytes (%) (Auto) 8 % (0-9) Eosinophils (%) (Auto) 1 % (0-3) Basophils (%) (Auto) 0 % (0-3) Neutrophils # (Auto) 9.5 x10^3uL (1.8-7.7) Lymphocytes # (Auto) 2.1 x10^3/uL (1.0-4.8) Monocytes # (Auto) 1.0 x10^3/uL (0.0-1.1) Eosinophils # (Auto) 0.2 x10^3/uL (0.0-0.7) Basophils # (Auto) 0.0 x10^3/uL (0.0-0.2) Sodium Level 143 mmol/L (136-145) Potassium Level 3.7 mmol/L (3.5-5.1) Chloride Level 107 mmol/L (98-107) Carbon Dioxide Level 31 mmol/L (21-32) Anion Gap 5 (6-14) Blood Urea Nitrogen 17 mg/dL (7-20) Creatinine 1.0 mg/dL (0.6-1.0) Estimated GFR (Cockcroft-Gault) 65.2 Glucose Level 104 mg/dL (70-99) Calcium Level 8.8 mg/dL (8.5-10.1) O2 Saturation 87 % (92-99) Arterial Blood pH 7.44 (7.35-7.45) Arterial Blood pCO2 at Patient Temp 40 mmHg (35-46) Arterial Blood pO2 at Patient Temp 53 mmHg (65-108) Arterial Blood HCO3 27 mmol/L (21-28) Arterial Blood Base Excess 3 mmol/L (-3-3) FiO2 35 Microbiology 06/07/17 Blood Culture - Preliminary, Resulted NO GROWTH AFTER 2 DAYS 06/07/17 - Final, Resulted 06/07/17 - Final, Resulted 06/07/17 - Final, Resulted 06/07/17 Gram Stain Evaluation - Final, Resulted 06/07/17 Sputum Culture - Preliminary, Resulted 06/07/17 Sputum Result 1 - Final, Resulted Medications Current Medications Albuterol/ Ipratropium (Duoneb) 3 ml 1X ONCE NEB Last administered on 00:01; Start 06/06/17 at 23:30; Stop 06/06/17 at 23:31; Status DC Vancomycin HCl (Vanco Per Pharmacy) 1 each PRN DAILY PRN MC SEE COMMENTS Last administered on 06/09/17 02:39; Start 06/07/17 at 01:00; Stop 06/09/17 at 07:47 ; Status DC Piperacillin Sod/ Tazobactam Sod (Zosyn Per Pharmacy) 1 each PRN DAILY PRN MC SEE COMMENTS; Start 06/07/17 at 01:00; Stop 06/09/17 at 09:12; Status DC Sodium Chloride 2,790 ml @ 2,790 mls/hr Q1H IV Last administered on 06/07/17 04:20; Start 06/07/17 at 01:00; Stop 06/07/17 at 04:26; Status DC Ondansetron HCl (Zofran) 4 mg PRN Q8HRS PRN IV NAUSEA/VOMITING; Start 06/07/17 at 01:00; Stop 06/07/17 at 09:00; Status DC Vancomycin HCl 1.5 gm/Sodium Chloride 500 ml @ 250 mls/hr 1X ONCE IV Last administered on 06/07/17 01:53; Start 06/07/17 at 01:30; Stop 06/07/17 at 03:29 ; Status DC Piperacillin Sod/ Tazobactam Sod 2.25 gm/Sodium Chloride 50 ml @ 100 mls/hr Q6HRS IV Last administered on 06/09/17 05:31; Start 06/07/17 at 01:30; Stop at 10:59; Status DC Vancomycin HCl 1 gm/Sodium Chloride 250 ml @ 250 mls/hr Q24H IV Last administered on 06/09/17 02:03; Start 06/08/17 at 02:00; Stop 06/09/17 at 02:25 ; Status DC Vancomycin HCl 1 each 1X ONCE MC Last administered on 06/09/17 01:30; Start 06/09/17 at 01:30; Stop 06/09/17 at 01:31; Status DC Info (Do NOT chart on this placeholder) 1 each 1X ONCE MC ; Start 06/07/17 at 08:00; Stop 06/07/17 at 08:01; Status UNV Influenza Virus Vaccine Quadrival (Fluarix Quad 0230-0642 Syringe) 0.5 ml ONCE ONCE VAX IM ; Start 06/07/17 at 09:00; Stop 06/07/17 at 09:01; Status Cancel Pantoprazole Sodium (Protonix) 40 mg DAILYAC PO ; Start 06/07/17 at 08:00; Stop 06/07/17 at 08:12; Status DC Enoxaparin Sodium (Lovenox 30mg Syringe) 30 mg Q24H SQ Last administered on 09:22; Start 06/07/17 at 08:00; Stop 06/09/17 at 11:00; Status DC Albuterol/ Ipratropium (Duoneb) 3 ml RTQID NEB Last administered on 06/09/17 10:59; Start 06/07/17 at 08:00 Budesonide (Pulmicort) 0.5 mg RTBID NEB Last administered on 06/08/17 08:06; Start 06/07/17 at 08:00; Stop 06/08/17 at 15:40; Status DC Famotidine (Pepcid) 20 mg QHS IVP ; Start 06/07/17 at 21:00; Stop 06/07/17 at 21 :00; Status DC Donepezil HCl (Aricept) 5 mg BID PEG Last administered on 06/09/17 09:22; Start 06/07/17 at 09:30 Fentanyl (Duragesic 50mcg/ Hr Patch) 1 patch Q3DAYS TD ; Start 06/07/17 at 09:00 ; Stop 06/07/17 at 09:00; Status DC Metoclopramide HCl (Reglan) 5 mg QIDAFTMEAL PO Last administered on 06/09/17 09:26; Start 06/07/17 at 09:30 Oxycodone/ Acetaminophen (Percocet 7.5/ 325) 1 tab PRN QID PRN PO PAIN Last administered on 06/08/17 17:16; Start 06/07/17 at 08:45 Pantoprazole Sodium (Protonix) 40 mg BID PO ; Start 06/07/17 at 09:00; Stop at 09:05; Status DC Albuterol Sulfate (Ventolin Neb Soln) 2.5 mg PRN Q4HRS PRN NEB SHORTNESS OF BREATH; Start 06/07/17 at 09:15 Atenolol (Tenormin) 50 mg DAILY PEG Last administered on 06/09/17 09:22; Start 06/07/17 at 09:30 Cyproheptadine HCl (Periactin) 2 mg BID PEG Last administered on 06/09/17 09: 21; Start 06/07/17 at 09:30 Non-Formulary Medication 160 mg DAILY PEG ; Start 06/07/17 at 09:00; Stop at 09:00; Status DC Acetaminophen (Tylenol) 650 mg PRN Q6HRS PRN PO FEVER; Start 06/07/17 at 08:45 Ondansetron HCl (Zofran) 4 mg PRN Q6HRS PRN IV NAUSEA/VOMITING Last administered on 06/08/17 10:43; Start 06/07/17 at 08:45 Morphine Sulfate 2 mg PRN Q2HR PRN IV PAIN Last administered on 06/09/17 09:01 ; Start 06/07/17 at 09:00 Tramadol HCl (Ultram) 50 mg PRN Q6HRS PRN PO PAIN; Start 06/07/17 at 08:45; Stop 06/08/17 at 15:40; Status DC Hydralazine HCl (Apresoline) 10 mg PRN Q4HRS PRN IVP ELEVATED BP, SEE COMMENTS Last administered on 06/08/17 22:40; Start 06/07/17 at 08:45 Docusate Sodium (Colace) 100 mg PRN DAILY PRN PO CONSTIPATION; Start 06/07/17 at 08:45 Fentanyl (Duragesic 50mcg/ Hr Patch) 1 patch Q3DAYS TD Last administered on 10:30; Start 06/08/17 at 10:30 Lansoprazole (Prevacid) 30 mg BIDBFRMEAL PEG Last administered on 06/09/17 09: 26; Start 06/07/17 at 09:30 Chlorthalidone (Thalitone) 25 mg DAILY PEG Last administered on 06/09/17 09:20 ; Start 06/07/17 at 09:30 Influenza Virus Vaccine Quadrival (Fluarix Quad 4778-1750 Syringe) 0.5 ml ONCE ONCE VAX IM ; Start 06/10/17 at 09:00; Stop 06/10/17 at 09:01 Famotidine (Pepcid) 20 mg QHS PEG ; Start 06/08/17 at 21:00; Status Cancel Lorazepam (Ativan) 2 mg PRN Q4HRS PRN IV ANXIETY / AGITATION; Start 06/08/17 at 15:45 Vancomycin HCl 1.25 gm/Sodium Chloride 250 ml @ 167 mls/hr Q24H IV ; Start at 14:00; Stop 06/09/17 at 14:00; Status DC Vancomycin HCl 1 each 1X ONCE MC ; Start 06/11/17 at 13:30; Stop 06/11/17 at 13 :31; Status Cancel Piperacillin Sod/ Tazobactam Sod 4.5 gm/Sodium Chloride 100 ml @ 200 mls/hr Q6HRS IV ; Start 06/09/17 at 12:00 Enoxaparin Sodium (Lovenox 40mg Syringe) 40 mg DAILY SQ ; Start 06/10/17 at 09: 00 Active Scripts Active Reported Diovan (Valsartan) 160 Mg Tablet 160 Mg PEG DAILY Pantoprazole Sodium 40 Mg Tablet.dr 40 Mg PEG BID Donepezil Hcl 5 Mg Tablet 5 Mg PEG BID Reglan (Metoclopramide Hcl) 10 Mg Tablet 5 Mg PO QIDAFTMEAL Atenolol-Chlorthal 50-25 Tb (Atenolol/Chlorthalidone) 1 Each Tablet 1 Tab PEG DAILY Cyproheptadine Hcl 2 Mg/5 Ml Syrup 2 Mg PEG BID Percocet 7.5-325 Mg Tablet (Oxycodone/Acetaminophen) 1 Each Tablet 1 Tab PO QID PRN Proair Hfa Inhaler (Albuterol Sulfate) 8.5 Gm Hfa.aer.ad 2 Puff IH PRN Q4-6HRS FENTANYL 50mcg/hr (Fentanyl) 1 Each Patch.td72 1 Patch TP Q3DAYS Ondansetron Odt (Ondansetron) 4 Mg Tab.rapdis 4 Mg PEG QIDPRN PRN Vitals/I & O Vital Sign - Last 24 Hours 06/08/17 06/08/17 06/08/17 06/08/17 11:12 12:00 12:00 12:08 Pulse 84 78 Resp 20 B/P (MAP) 205/106 99/57 (71) Pulse Ox 99 100 O2 Delivery Ventilator Mechanical Ventilator Ventilator 06/08/17 06/08/17 06/08/17 06/08/17 13:00 13:45 14:00 14:30 Pulse 88 78 Resp 18 18 20 B/P (MAP) 97/46 (63) 113/55 (74) Pulse Ox 99 100 99 100 O2 Delivery Ventilator Ventilator Ventilator 06/08/17 06/08/17 06/08/17 06/08/17 15:00 15:45 16:00 16:00 Temp 99.1 99.1 Pulse 82 88 Resp 18 18 B/P (MAP) 124/63 (83) 163/80 (107) Pulse Ox 100 100 100 O2 Delivery Ventilator Ventilator Ventilator Mechanical Ventilator 06/08/17 06/08/17 06/08/17 06/08/17 17:00 17:05 17:16 18:00 Pulse 82 83 Resp 24 20 22 B/P (MAP) 149/72 (97) 131/63 (85) Pulse Ox 100 100 100 100 O2 Delivery Ventilator Ventilator Ventilator Ventilator 06/08/17 06/08/17 06/08/17 06/08/17 18:16 19:00 19:35 20:00 Pulse 86 Resp 20 17 B/P (MAP) 133/61 (85) Pulse Ox 100 100 100 O2 Delivery Ventilator Ventilator Ventilator Mechanical Ventilator 06/08/17 06/08/17 06/08/17 06/08/17 20:00 20:22 21:00 22:00 Temp 99.0 99.0 Pulse 78 82 86 Resp 24 25 20 B/P (MAP) 153/72 (99) 169/78 (108) 178/88 (118) Pulse Ox 100 100 100 100 O2 Delivery Ventilator Ventilator Ventilator Ventilator 06/08/17 06/08/17 06/08/17 06/08/17 22:30 22:40 23:00 23:50 Pulse 79 78 Resp 18 B/P (MAP) 178/81 (113) 178/81 142/67 (92) Pulse Ox 100 99 O2 Delivery Ventilator Ventilator 06/09/17 06/09/17 06/09/17 06/09/17 00:00 00:00 01:00 02:00 Temp 99.1 99.1 Pulse 84 78 73 Resp 23 12 16 B/P (MAP) 140/64 (89) 130/63 (85) 150/70 (96) Pulse Ox 100 100 99 O2 Delivery Ventilator Mechanical Ventilator Ventilator Ventilator 06/09/17 06/09/17 06/09/17 06/09/17 02:20 03:00 04:00 04:00 Temp 99.1 99.1 Pulse 79 72 Resp 23 20 B/P (MAP) 149/75 (99) 146/67 (93) Pulse Ox 100 99 99 O2 Delivery Ventilator Ventilator Mechanical Ventilator Ventilator 06/09/17 06/09/17 06/09/17 06/09/17 05:00 05:30 06:00 07:05 Pulse 70 77 Resp 20 15 B/P (MAP) 120/60 (80) 165/78 (107) Pulse Ox 92 100 93 94 O2 Delivery Ventilator Ventilator Ventilator Ventilator 06/09/17 06/09/17 06/09/17 06/09/17 08:00 08:15 09:01 09:09 Resp 16 Pulse Ox 45 94 O2 Delivery Mechanical Ventilator Ventilator Ventilator Ventilator 06/09/17 09:22 Pulse 83 B/P (MAP) 170/77 Intake and Output 06/09/17 06/09/17 06/10/17 15:00 23:00 07:00 Intake Total 80 ml Output Total 0 ml Balance 80 ml HEAVEN KRAUS MD Jun 09, 2017 11:05
[2017-06-09] MEDS ORDERED: FLU VACC QS2017-18 (36MOS+)/PF 0.5 ML SYRINGE. VAX IM ONE (11:30)
--- NOTE | 2017-06-09 12:10 | PDOC ---
PULMONARY PROGRESS NOTES Subjective PT OFF VENT NO DISTRESS SITTING ON CHAIR Vitals Vital Signs Date Time Temp Pulse Resp B/P (MAP) Pulse Ox O2 Delivery O2 Flow Rate FiO2 06/09/17 11:00 100 Ventilator 06/09/17 09:22 83 170/77 06/09/17 09:01 16 06/09/17 04:00 99.1 99.1 ROS: No Nausea, No Chest Pain, No Abdominal Pain, No Increase Cough General: Alert Lungs: Crackles Cardiovascular: S1, S2 Abdomen: Soft, Non-tender, Other Neuro Exam: Alert Extremities: No Edema Skin: Warm, Dry Labs Laboratory Tests Test 06/08/17 04:05 06/08/17 09:20 06/09/17 01:24 06/09/17 05:35 White Blood Count 13.1 x10^3/uL (4.0-11.0) 12.9 x10^3/uL (4.0-11.0) Red Blood Count 4.01 x10^6/uL (3.50-5.40) 4.19 x10^6/uL (3.50-5.40) Hemoglobin 10.0 g/dL (12.0-15.5) 10.4 g/dL (12.0-15.5) Hematocrit 33.2 % (36.0-47.0) 33.9 % (36.0-47.0) Mean Corpuscular Volume 83 fL (79-100) 81 fL (79-100) Mean Corpuscular Hemoglobin 25 pg (25-35) 25 pg (25-35) Mean Corpuscular Hemoglobin Concent 30 g/dL (31-37) 31 g/dL (31-37) Red Cell Distribution Width 16.5 % (11.5-14.5) 16.8 % (11.5-14.5) Platelet Count 313 x10^3/uL (140-400) 356 x10^3/uL (140-400) Neutrophils (%) (Auto) 73 % (31-73) 74 % (31-73) Lymphocytes (%) (Auto) 18 % (24-48) 17 % (24-48) Monocytes (%) (Auto) 9 % (0-9) 8 % (0-9) Eosinophils (%) (Auto) 1 % (0-3) 1 % (0-3) Basophils (%) (Auto) 0 % (0-3) 0 % (0-3) Neutrophils # (Auto) 9.6 x10^3uL (1.8-7.7) 9.5 x10^3uL (1.8-7.7) Lymphocytes # (Auto) 2.3 x10^3/uL (1.0-4.8) 2.1 x10^3/uL (1.0-4.8) Monocytes # (Auto) 1.2 x10^3/uL (0.0-1.1) 1.0 x10^3/uL (0.0-1.1) Eosinophils # (Auto) 0.1 x10^3/uL (0.0-0.7) 0.2 x10^3/uL (0.0-0.7) Basophils # (Auto) 0.0 x10^3/uL (0.0-0.2) 0.0 x10^3/uL (0.0-0.2) Sodium Level 145 mmol/L (136-145) 143 mmol/L (136-145) Potassium Level 3.5 mmol/L (3.5-5.1) 3.7 mmol/L (3.5-5.1) Chloride Level 108 mmol/L (98-107) 107 mmol/L (98-107) Carbon Dioxide Level 33 mmol/L (21-32) 31 mmol/L (21-32) Anion Gap 4 (6-14) 5 (6-14) Blood Urea Nitrogen 31 mg/dL (7-20) 17 mg/dL (7-20) Creatinine 1.2 mg/dL (0.6-1.0) 1.0 mg/dL (0.6-1.0) Estimated GFR (Cockcroft-Gault) 52.9 65.2 Glucose Level 91 mg/dL (70-99) 104 mg/dL (70-99) Calcium Level 8.1 mg/dL (8.5-10.1) 8.8 mg/dL (8.5-10.1) O2 Saturation 98 % (92-99) Arterial Blood pH 7.43 (7.35-7.45) Arterial Blood pCO2 at Patient Temp 36 mmHg (35-46) Arterial Blood pO2 at Patient Temp 107 mmHg (65-108) Arterial Blood HCO3 24 mmol/L (21-28) Arterial Blood Base Excess 0 mmol/L (-3-3) FiO2 35 Vancomycin Level Trough 11.8 mcg/mL (10.0-20.0) Vancomycin Last Dose Date Vancomycin Last Dose Time 0200 Test 06/09/17 08:05 O2 Saturation 87 % (92-99) Arterial Blood pH 7.44 (7.35-7.45) Arterial Blood pCO2 at Patient Temp 40 mmHg (35-46) Arterial Blood pO2 at Patient Temp 53 mmHg (65-108) Arterial Blood HCO3 27 mmol/L (21-28) Arterial Blood Base Excess 3 mmol/L (-3-3) FiO2 35 Laboratory Tests Test 06/09/17 01:24 06/09/17 05:35 06/09/17 08:05 Vancomycin Level Trough 11.8 mcg/mL (10.0-20.0) Vancomycin Last Dose Date Vancomycin Last Dose Time 0200 White Blood Count 12.9 x10^3/uL (4.0-11.0) Red Blood Count 4.19 x10^6/uL (3.50-5.40) Hemoglobin 10.4 g/dL (12.0-15.5) Hematocrit 33.9 % (36.0-47.0) Mean Corpuscular Volume 81 fL (79-100) Mean Corpuscular Hemoglobin 25 pg (25-35) Mean Corpuscular Hemoglobin Concent 31 g/dL (31-37) Red Cell Distribution Width 16.8 % (11.5-14.5) Platelet Count 356 x10^3/uL (140-400) Neutrophils (%) (Auto) 74 % (31-73) Lymphocytes (%) (Auto) 17 % (24-48) Monocytes (%) (Auto) 8 % (0-9) Eosinophils (%) (Auto) 1 % (0-3) Basophils (%) (Auto) 0 % (0-3) Neutrophils # (Auto) 9.5 x10^3uL (1.8-7.7) Lymphocytes # (Auto) 2.1 x10^3/uL (1.0-4.8) Monocytes # (Auto) 1.0 x10^3/uL (0.0-1.1) Eosinophils # (Auto) 0.2 x10^3/uL (0.0-0.7) Basophils # (Auto) 0.0 x10^3/uL (0.0-0.2) Sodium Level 143 mmol/L (136-145) Potassium Level 3.7 mmol/L (3.5-5.1) Chloride Level 107 mmol/L (98-107) Carbon Dioxide Level 31 mmol/L (21-32) Anion Gap 5 (6-14) Blood Urea Nitrogen 17 mg/dL (7-20) Creatinine 1.0 mg/dL (0.6-1.0) Estimated GFR (Cockcroft-Gault) 65.2 Glucose Level 104 mg/dL (70-99) Calcium Level 8.8 mg/dL (8.5-10.1) O2 Saturation 87 % (92-99) Arterial Blood pH 7.44 (7.35-7.45) Arterial Blood pCO2 at Patient Temp 40 mmHg (35-46) Arterial Blood pO2 at Patient Temp 53 mmHg (65-108) Arterial Blood HCO3 27 mmol/L (21-28) Arterial Blood Base Excess 3 mmol/L (-3-3) FiO2 35 Medications Active Scripts Medications Dose Route/Sig Max Daily Dose Days Date Category Diovan (Valsartan) 160 Mg Tablet 160 Mg PEG DAILY 03/11/17 Reported Pantoprazole Sodium 40 Mg Tablet.dr 40 Mg PEG BID 03/11/17 Reported Donepezil Hcl 5 Mg Tablet 5 Mg PEG BID 03/11/17 Reported Reglan (Metoclopramide Hcl) 10 Mg Tablet 5 Mg PO QIDAFTMEAL 03/11/17 Reported Atenolol-Chlorthal 50-25 Tb (Atenolol/Chlorthalidone) 1 Each Tablet 1 Tab PEG DAILY 03/11/17 Reported Cyproheptadine Hcl 2 Mg/5 Ml Syrup 2 Mg PEG BID 03/11/17 Reported Percocet 7.5-325 Mg Tablet (Oxycodone/Acetaminophen) 1 Each Tablet 1 Tab PO QID PRN 03/11/17 Reported Proair Hfa Inhaler (Albuterol Sulfate) 8.5 Gm Hfa.aer.ad 2 Puff IH PRN Q4-6HRS 08/16/15 Reported FENTANYL 50mcg/hr (Fentanyl) 1 Each Patch.td72 1 Patch TP Q3DAYS 06/19/14 Reported Ondansetron Odt (Ondansetron) 4 Mg Tab.rapdis 4 Mg PEG QIDPRN PRN 06/19/14 Reported Impression . 1. [id number] respiratory failure, multifactorial in etiology. 2. Abnormal chest x-ray. 3. suspect Gram pos and gram neg pneumonia 4. Laryngeal cancer status post laryngectomy. 5. Tracheostomy tube 6. History of methicillin-resistant staphylococcus aureus. 7. Leukocytosis. 8. Acute kidney injury. Plan . Off vent unless distress Continue antibx will change tube feeding to continues DVT/GI prophylaxis add benzo for anxiety d/w RN/RT ANURAG LOO MD Jun 09, 2017 12:10
[2017-06-09] MEDS: PIPERACILLIN/TAZOBACTAM 4.5 GM in IV NORMAL SALINE 100ML 100 ML IV SCH ×2 (12:11→18:56)
[2017-06-09] MEDS ORDERED: VANCOMYCIN 1.25 GM in IV NORMAL SALINE 250ML 250 ML IV SCH (14:00)
[2017-06-09] MEDS: hydrALAZINE 20 MG/ML VIAL. IVP PRN (14:57)
[2017-06-10] VITALS (24 sets, daily range): BP systolic 105–189; BP diastolic 56–99
[2017-06-10] MEDS: PIPERACILLIN/TAZOBACTAM 4.5 GM in IV NORMAL SALINE 100ML 100 ML IV SCH (00:10)
[2017-06-10] MEDS: oxyCODONE/APAP 7.5/325 1 TAB TABLET PO PRN (04:56)
[2017-06-10] MEDS ORDERED: ALPRAZolam 0.25 MG TABLET PO PRN (05:00)
[2017-06-10] MEDS ORDERED: ALTEPLASE 2 MG VIAL INT CAT ONE (05:30)
[2017-06-10 07:15] LABS: BASO # 0.1 x10^3/uL (0.0-0.2); BASO % 1 % (0-3); EOS % 4 % (0-3); HEMATOCRIT 36.5 % (36.0-47.0); LYMPH # 2.1 x10^3/uL (1.0-4.8); LYMPH % 18 % (24-48); MEAN CORPUSCULAR HEMOGLOBIN 24 pg (25-35); MEAN CORPUSCULAR HGB CONC 30 g/dL (31-37); MEAN CORPUSCULAR VOLUME 81 fL (79-100); MONO % 7 % (0-9); NEUT % 70 % (31-73); PLATELET COUNT 368 x10^3/uL (140-400); RED CELL DISTRIBUTION WIDTH 16.6 % (11.5-14.5); WHITE BLOOD COUNT 11.5 x10^3/uL (4.0-11.0)
[2017-06-10 07:37] LABS: CALCIUM 9.2 mg/dL (8.5-10.1); GFR 65.2; POTASSIUM 3.7 mmol/L (3.5-5.1)
--- NOTE | 2017-06-10 07:59 | PDOC ---
Infectious Disease Note Subjective Subjective awake, feeling good, says ready to go home ROS ROS GEN: Denies fevers, chills, sweats HEENT: Denies blurred vision, sore throat CV: Denies chest pain RESP: Denies shortness of air, cough GI: Denies n/v/d NEURO: Denies confusion, dizziness MSK: Denies weakness, joint pain/swelling Vital Sign Vital Signs Vital Signs Date Time Temp Pulse Resp B/P (MAP) Pulse Ox O2 Delivery O2 Flow Rate FiO2 06/10/17 07:00 66 19 133/66 (88) 100 Ventilator 06/10/17 04:00 98.3 98.3 Physical Exam PHYSICAL EXAM GENERAL: NAD, Alert , trach shield HEENT: PERRL, OC/OP NECK: Supple, no JVD, no LN LUNGS: Clear HEART: S1S2, no gallop, no murmur ABD: Soft, NT, no organomegaly, no rebound EXT: No edema, no cyanosis 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, 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 3, no focal neurologic deficit SKIN: No rash IV: ok Labs Lab Laboratory Tests Test 06/09/17 08:05 06/10/17 07:03 O2 Saturation 87 % (92-99) Arterial Blood pH 7.44 (7.35-7.45) Arterial Blood pCO2 at Patient Temp 40 mmHg (35-46) Arterial Blood pO2 at Patient Temp 53 mmHg (65-108) Arterial Blood HCO3 27 mmol/L (21-28) Arterial Blood Base Excess 3 mmol/L (-3-3) FiO2 35 White Blood Count 11.5 x10^3/uL (4.0-11.0) Red Blood Count 4.50 x10^6/uL (3.50-5.40) Hemoglobin 11.0 g/dL (12.0-15.5) Hematocrit 36.5 % (36.0-47.0) Mean Corpuscular Volume 81 fL (79-100) Mean Corpuscular Hemoglobin 24 pg (25-35) Mean Corpuscular Hemoglobin Concent 30 g/dL (31-37) Red Cell Distribution Width 16.6 % (11.5-14.5) Platelet Count 368 x10^3/uL (140-400) Neutrophils (%) (Auto) 70 % (31-73) Lymphocytes (%) (Auto) 18 % (24-48) Monocytes (%) (Auto) 7 % (0-9) Eosinophils (%) (Auto) 4 % (0-3) Basophils (%) (Auto) 1 % (0-3) Neutrophils # (Auto) 8.1 x10^3uL (1.8-7.7) Lymphocytes # (Auto) 2.1 x10^3/uL (1.0-4.8) Monocytes # (Auto) 0.8 x10^3/uL (0.0-1.1) Eosinophils # (Auto) 0.4 x10^3/uL (0.0-0.7) Basophils # (Auto) 0.1 x10^3/uL (0.0-0.2) Sodium Level 141 mmol/L (136-145) Potassium Level 3.7 mmol/L (3.5-5.1) Chloride Level 105 mmol/L (98-107) Carbon Dioxide Level 30 mmol/L (21-32) Anion Gap 6 (6-14) Blood Urea Nitrogen 14 mg/dL (7-20) Creatinine 1.0 mg/dL (0.6-1.0) Estimated GFR (Cockcroft-Gault) 65.2 Glucose Level 105 mg/dL (70-99) Calcium Level 9.2 mg/dL (8.5-10.1) Micro BC culture neg Sputum SPUTUM CULT RES 1 Final Escherichia coli Light growth * This is a corrected result. * A prior result that was reported as final has been changed. ANTIMICROBIAL SUSCEPTIBILITY Final Comment CONTINUED ON NEXT PAGE RUN DATE: 06/09/17 PAGE 2 RUN TIME: 1119 [facility] [address] [place] [address] Jorge Tierney M.D., Director Institution SPEC: [id number] PATIENT: BERNARDO DE LEON [id number] ( Continued) Procedure Result ANTIMICROBIAL SUSCEPTIBILITY Final (continued) S = Susceptible; I = Intermediate; R = Resistant P = Positive; N = Negative MICS are expressed in micrograms per mL Antibiotic RSLT#1 RSLT#2 RSLT#3 RSLT#4 Amoxicillin/Clavulanic Acid S Ampicillin R Cefepime S Ceftriaxone S Cefuroxime S Ciprofloxacin R Ertapenem S Gentamicin S Imipenem S Levofloxacin R Piperacillin R Tetracycline R Tobramycin I Trimethoprim/Sulfa R Performed at: [address] [id number] Technical Coordinator: Nicole Freire MD, Phone: [phone] Objective Assessment HCAP Leukocytosis Acute-on chronic respiratory failure SANCHEZ Hx laryngeal and lung cancer s/p chemoradiation HX MRSA, PSA and C. diff Dehydration Plan Plan of Care Clinically improving, change zosyn to meropenem, cont until pt is here, for d/c change to vantin through tube Monitor WBC, renal function and temp f/u cultures Off load heels ASTER MATOS MD Jun 10, 2017 07:59
[2017-06-10] MEDS: IPRATRPIUM/ALBUTEROL 0.5/2.5MG 3 ML NEBU. NEB SCH ×4 (08:29→20:15)
[2017-06-10] MEDS: CHLORTHALIDONE 25 MG TABLET. PEG SCH (08:41)
[2017-06-10] MEDS: MEROPENEM 500 MG in IV NORMAL SALINE 50ML 50 ML IV SCH ×3 (08:41→22:15)
[2017-06-10] MEDS: CYPROHEPTADINE 4 MG TABLET. PEG SCH ×2 (08:41→20:50)
[2017-06-10] MEDS: DONEPEZIL HCL 5 MG TABLET. PEG SCH ×2 (08:41→20:50)
[2017-06-10] MEDS: ENOXAPARIN 40 MG/0.4 ML SYRINGE. SQ SCH (08:41)
[2017-06-10] MEDS: LANSOPRAZOLE 30 MG TAB.RAP.DR PEG SCH ×2 (08:42→16:41)
[2017-06-10] MEDS: ATENOLOL 50 MG TABLET. PEG SCH (08:42)
--- NOTE | 2017-06-10 09:10 | PDOC ---
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, has trach Dysphagia , PEG htn COPD h/o cdiff h/o MRSA h/O pseudomonas PNA SANCHEZ, vasomotor mild malnutrition Sepsis with HAP History of Present Illness History of Present Illness KNown to me Seen in ICU Awake watching tv, no distress E coli on sputum cx - on IV zosyn, ID will shift to PO when we will dc to home NO fevers WBC coming down ON trach shield started mid day yesterday ON PSV during the nights PLAN: WIll dc when ok with pulmo, and to shift on PO abx TYRONE [employer] Vitals Vitals Vital Signs Date Time Temp Pulse Resp B/P (MAP) Pulse Ox O2 Delivery O2 Flow Rate FiO2 06/10/17 08:42 77 143/68 06/10/17 08:30 100 Ventilator 06/10/17 08:00 98.3 98.3 06/10/17 07:00 19 Physical Exam General: Alert, Oriented X3 Heart: Regular rate, Normal S1, Normal S2 Lungs: Crackles Abdomen: Normal bowel sounds, Soft Extremities: No clubbing, No cyanosis Skin: No rashes, No breakdown Labs LABS Laboratory Tests Test 06/10/17 07:03 White Blood Count 11.5 x10^3/uL (4.0-11.0) Red Blood Count 4.50 x10^6/uL (3.50-5.40) Hemoglobin 11.0 g/dL (12.0-15.5) Hematocrit 36.5 % (36.0-47.0) Mean Corpuscular Volume 81 fL (79-100) Mean Corpuscular Hemoglobin 24 pg (25-35) Mean Corpuscular Hemoglobin Concent 30 g/dL (31-37) Red Cell Distribution Width 16.6 % (11.5-14.5) Platelet Count 368 x10^3/uL (140-400) Neutrophils (%) (Auto) 70 % (31-73) Lymphocytes (%) (Auto) 18 % (24-48) Monocytes (%) (Auto) 7 % (0-9) Eosinophils (%) (Auto) 4 % (0-3) Basophils (%) (Auto) 1 % (0-3) Neutrophils # (Auto) 8.1 x10^3uL (1.8-7.7) Lymphocytes # (Auto) 2.1 x10^3/uL (1.0-4.8) Monocytes # (Auto) 0.8 x10^3/uL (0.0-1.1) Eosinophils # (Auto) 0.4 x10^3/uL (0.0-0.7) Basophils # (Auto) 0.1 x10^3/uL (0.0-0.2) Sodium Level 141 mmol/L (136-145) Potassium Level 3.7 mmol/L (3.5-5.1) Chloride Level 105 mmol/L (98-107) Carbon Dioxide Level 30 mmol/L (21-32) Anion Gap 6 (6-14) Blood Urea Nitrogen 14 mg/dL (7-20) Creatinine 1.0 mg/dL (0.6-1.0) Estimated GFR (Cockcroft-Gault) 65.2 Glucose Level 105 mg/dL (70-99) Calcium Level 9.2 mg/dL (8.5-10.1) Review of Systems Review of Systems denies 14 pt Assessment and Plan Assessmemt and Plan Problems Medical Problems: (1) Healthcare-associated pneumonia Status: Acute (2) Sepsis Status: Acute Problems: Comment Review of Relevant I have reviewed the following items miko (where applicable) has been applied. Labs Laboratory Tests Test 06/08/17 09:20 06/09/17 01:24 06/09/17 05:35 06/09/17 08:05 O2 Saturation 98 % (92-99) 87 % (92-99) Arterial Blood pH 7.43 (7.35-7.45) 7.44 (7.35-7.45) Arterial Blood pCO2 at Patient Temp 36 mmHg (35-46) 40 mmHg (35-46) Arterial Blood pO2 at Patient Temp 107 mmHg (65-108) 53 mmHg (65-108) Arterial Blood HCO3 24 mmol/L (21-28) 27 mmol/L (21-28) Arterial Blood Base Excess 0 mmol/L (-3-3) 3 mmol/L (-3-3) FiO2 35 35 Vancomycin Level Trough 11.8 mcg/mL (10.0-20.0) Vancomycin Last Dose Date Vancomycin Last Dose Time 0200 White Blood Count 12.9 x10^3/uL (4.0-11.0) Red Blood Count 4.19 x10^6/uL (3.50-5.40) Hemoglobin 10.4 g/dL (12.0-15.5) Hematocrit 33.9 % (36.0-47.0) Mean Corpuscular Volume 81 fL (79-100) Mean Corpuscular Hemoglobin 25 pg (25-35) Mean Corpuscular Hemoglobin Concent 31 g/dL (31-37) Red Cell Distribution Width 16.8 % (11.5-14.5) Platelet Count 356 x10^3/uL (140-400) Neutrophils (%) (Auto) 74 % (31-73) Lymphocytes (%) (Auto) 17 % (24-48) Monocytes (%) (Auto) 8 % (0-9) Eosinophils (%) (Auto) 1 % (0-3) Basophils (%) (Auto) 0 % (0-3) Neutrophils # (Auto) 9.5 x10^3uL (1.8-7.7) Lymphocytes # (Auto) 2.1 x10^3/uL (1.0-4.8) Monocytes # (Auto) 1.0 x10^3/uL (0.0-1.1) Eosinophils # (Auto) 0.2 x10^3/uL (0.0-0.7) Basophils # (Auto) 0.0 x10^3/uL (0.0-0.2) Sodium Level 143 mmol/L (136-145) Potassium Level 3.7 mmol/L (3.5-5.1) Chloride Level 107 mmol/L (98-107) Carbon Dioxide Level 31 mmol/L (21-32) Anion Gap 5 (6-14) Blood Urea Nitrogen 17 mg/dL (7-20) Creatinine 1.0 mg/dL (0.6-1.0) Estimated GFR (Cockcroft-Gault) 65.2 Glucose Level 104 mg/dL (70-99) Calcium Level 8.8 mg/dL (8.5-10.1) Test 06/10/17 07:03 White Blood Count 11.5 x10^3/uL (4.0-11.0) Red Blood Count 4.50 x10^6/uL (3.50-5.40) Hemoglobin 11.0 g/dL (12.0-15.5) Hematocrit 36.5 % (36.0-47.0) Mean Corpuscular Volume 81 fL (79-100) Mean Corpuscular Hemoglobin 24 pg (25-35) Mean Corpuscular Hemoglobin Concent 30 g/dL (31-37) Red Cell Distribution Width 16.6 % (11.5-14.5) Platelet Count 368 x10^3/uL (140-400) Neutrophils (%) (Auto) 70 % (31-73) Lymphocytes (%) (Auto) 18 % (24-48) Monocytes (%) (Auto) 7 % (0-9) Eosinophils (%) (Auto) 4 % (0-3) Basophils (%) (Auto) 1 % (0-3) Neutrophils # (Auto) 8.1 x10^3uL (1.8-7.7) Lymphocytes # (Auto) 2.1 x10^3/uL (1.0-4.8) Monocytes # (Auto) 0.8 x10^3/uL (0.0-1.1) Eosinophils # (Auto) 0.4 x10^3/uL (0.0-0.7) Basophils # (Auto) 0.1 x10^3/uL (0.0-0.2) Sodium Level 141 mmol/L (136-145) Potassium Level 3.7 mmol/L (3.5-5.1) Chloride Level 105 mmol/L (98-107) Carbon Dioxide Level 30 mmol/L (21-32) Anion Gap 6 (6-14) Blood Urea Nitrogen 14 mg/dL (7-20) Creatinine 1.0 mg/dL (0.6-1.0) Estimated GFR (Cockcroft-Gault) 65.2 Glucose Level 105 mg/dL (70-99) Calcium Level 9.2 mg/dL (8.5-10.1) Laboratory Tests Test 06/10/17 07:03 White Blood Count 11.5 x10^3/uL (4.0-11.0) Red Blood Count 4.50 x10^6/uL (3.50-5.40) Hemoglobin 11.0 g/dL (12.0-15.5) Hematocrit 36.5 % (36.0-47.0) Mean Corpuscular Volume 81 fL (79-100) Mean Corpuscular Hemoglobin 24 pg (25-35) Mean Corpuscular Hemoglobin Concent 30 g/dL (31-37) Red Cell Distribution Width 16.6 % (11.5-14.5) Platelet Count 368 x10^3/uL (140-400) Neutrophils (%) (Auto) 70 % (31-73) Lymphocytes (%) (Auto) 18 % (24-48) Monocytes (%) (Auto) 7 % (0-9) Eosinophils (%) (Auto) 4 % (0-3) Basophils (%) (Auto) 1 % (0-3) Neutrophils # (Auto) 8.1 x10^3uL (1.8-7.7) Lymphocytes # (Auto) 2.1 x10^3/uL (1.0-4.8) Monocytes # (Auto) 0.8 x10^3/uL (0.0-1.1) Eosinophils # (Auto) 0.4 x10^3/uL (0.0-0.7) Basophils # (Auto) 0.1 x10^3/uL (0.0-0.2) Sodium Level 141 mmol/L (136-145) Potassium Level 3.7 mmol/L (3.5-5.1) Chloride Level 105 mmol/L (98-107) Carbon Dioxide Level 30 mmol/L (21-32) Anion Gap 6 (6-14) Blood Urea Nitrogen 14 mg/dL (7-20) Creatinine 1.0 mg/dL (0.6-1.0) Estimated GFR (Cockcroft-Gault) 65.2 Glucose Level 105 mg/dL (70-99) Calcium Level 9.2 mg/dL (8.5-10.1) Microbiology 06/07/17 Blood Culture - Preliminary, Resulted NO GROWTH AFTER 3 DAYS 06/07/17 - Final, Complete 06/07/17 - Final, Complete 06/07/17 - Final, Complete 06/07/17 Gram Stain Evaluation - Final, Complete 06/07/17 Sputum Culture - Final, Complete 06/07/17 Sputum Result 1 - Final, Complete 06/07/17 Antimicrobic Susceptibility - Final, Complete Medications Current Medications Albuterol/ Ipratropium (Duoneb) 3 ml 1X ONCE NEB Last administered on 00:01; Start 06/06/17 at 23:30; Stop 06/06/17 at 23:31; Status DC Vancomycin HCl (Vanco Per Pharmacy) 1 each PRN DAILY PRN MC SEE COMMENTS Last administered on 06/09/17 02:39; Start 06/07/17 at 01:00; Stop 06/09/17 at 07:47 ; Status DC Piperacillin Sod/ Tazobactam Sod (Zosyn Per Pharmacy) 1 each PRN DAILY PRN MC SEE COMMENTS; Start 06/07/17 at 01:00; Stop 06/09/17 at 09:12; Status DC Sodium Chloride 2,790 ml @ 2,790 mls/hr Q1H IV Last administered on 06/07/17 04:20; Start 06/07/17 at 01:00; Stop 06/07/17 at 04:26; Status DC Ondansetron HCl (Zofran) 4 mg PRN Q8HRS PRN IV NAUSEA/VOMITING; Start 06/07/17 at 01:00; Stop 06/07/17 at 09:00; Status DC Vancomycin HCl 1.5 gm/Sodium Chloride 500 ml @ 250 mls/hr 1X ONCE IV Last administered on 06/07/17 01:53; Start 06/07/17 at 01:30; Stop 06/07/17 at 03:29 ; Status DC Piperacillin Sod/ Tazobactam Sod 2.25 gm/Sodium Chloride 50 ml @ 100 mls/hr Q6HRS IV Last administered on 06/09/17 05:31; Start 06/07/17 at 01:30; Stop at 10:59; Status DC Vancomycin HCl 1 gm/Sodium Chloride 250 ml @ 250 mls/hr Q24H IV Last administered on 06/09/17 02:03; Start 06/08/17 at 02:00; Stop 06/09/17 at 02:25 ; Status DC Vancomycin HCl 1 each 1X ONCE MC Last administered on 06/09/17 01:30; Start 06/09/17 at 01:30; Stop 06/09/17 at 01:31; Status DC Info (Do NOT chart on this placeholder) 1 each 1X ONCE MC ; Start 06/07/17 at 08:00; Stop 06/07/17 at 08:01; Status UNV Influenza Virus Vaccine Quadrival (Fluarix Quad 5316-4777 Syringe) 0.5 ml ONCE ONCE VAX IM ; Start 06/07/17 at 09:00; Stop 06/07/17 at 09:01; Status Cancel Pantoprazole Sodium (Protonix) 40 mg DAILYAC PO ; Start 06/07/17 at 08:00; Stop 06/07/17 at 08:12; Status DC Enoxaparin Sodium (Lovenox 30mg Syringe) 30 mg Q24H SQ Last administered on 09:22; Start 06/07/17 at 08:00; Stop 06/09/17 at 11:00; Status DC Albuterol/ Ipratropium (Duoneb) 3 ml RTQID NEB Last administered on 06/10/17 08:29; Start 06/07/17 at 08:00 Budesonide (Pulmicort) 0.5 mg RTBID NEB Last administered on 06/08/17 08:06; Start 06/07/17 at 08:00; Stop 06/08/17 at 15:40; Status DC Famotidine (Pepcid) 20 mg QHS IVP ; Start 06/07/17 at 21:00; Stop 06/07/17 at 21 :00; Status DC Donepezil HCl (Aricept) 5 mg BID PEG Last administered on 06/10/17 08:41; Start 06/07/17 at 09:30 Fentanyl (Duragesic 50mcg/ Hr Patch) 1 patch Q3DAYS TD ; Start 06/07/17 at 09:00 ; Stop 06/07/17 at 09:00; Status DC Metoclopramide HCl (Reglan) 5 mg QIDAFTMEAL PO Last administered on 06/09/17 21:21; Start 06/07/17 at 09:30 Oxycodone/ Acetaminophen (Percocet 7.5/ 325) 1 tab PRN QID PRN PO PAIN Last administered on 06/10/17 04:56; Start 06/07/17 at 08:45 Pantoprazole Sodium (Protonix) 40 mg BID PO ; Start 06/07/17 at 09:00; Stop at 09:05; Status DC Albuterol Sulfate (Ventolin Neb Soln) 2.5 mg PRN Q4HRS PRN NEB SHORTNESS OF BREATH; Start 06/07/17 at 09:15 Atenolol (Tenormin) 50 mg DAILY PEG Last administered on 06/10/17 08:42; Start 06/07/17 at 09:30 Cyproheptadine HCl (Periactin) 2 mg BID PEG Last administered on 06/10/17 08: 41; Start 06/07/17 at 09:30 Non-Formulary Medication 160 mg DAILY PEG ; Start 06/07/17 at 09:00; Stop at 09:00; Status DC Acetaminophen (Tylenol) 650 mg PRN Q6HRS PRN PO FEVER; Start 06/07/17 at 08:45 Ondansetron HCl (Zofran) 4 mg PRN Q6HRS PRN IV NAUSEA/VOMITING Last administered on 06/08/17 10:43; Start 06/07/17 at 08:45 Morphine Sulfate 2 mg PRN Q2HR PRN IV PAIN Last administered on 06/09/17 09:01 ; Start 06/07/17 at 09:00 Tramadol HCl (Ultram) 50 mg PRN Q6HRS PRN PO PAIN; Start 06/07/17 at 08:45; Stop 06/08/17 at 15:40; Status DC Hydralazine HCl (Apresoline) 10 mg PRN Q4HRS PRN IVP ELEVATED BP, SEE COMMENTS Last administered on 06/09/17 14:57; Start 06/07/17 at 08:45 Docusate Sodium (Colace) 100 mg PRN DAILY PRN PO CONSTIPATION; Start 06/07/17 at 08:45 Fentanyl (Duragesic 50mcg/ Hr Patch) 1 patch Q3DAYS TD Last administered on 10:30; Start 06/08/17 at 10:30 Lansoprazole (Prevacid) 30 mg BIDBFRMEAL PEG Last administered on 06/10/17 08: 42; Start 06/07/17 at 09:30 Chlorthalidone (Thalitone) 25 mg DAILY PEG Last administered on 06/10/17 08:41 ; Start 06/07/17 at 09:30 Influenza Virus Vaccine Quadrival (Fluarix Quad 5332-5040 Syringe) 0.5 ml ONCE ONCE VAX IM Last administered on 06/09/17 11:44; Start 06/09/17 at 11:30; Stop 06/09/17 at 11:31; Status DC Famotidine (Pepcid) 20 mg QHS PEG ; Start 06/08/17 at 21:00; Status Cancel Lorazepam (Ativan) 2 mg PRN Q4HRS PRN IV ANXIETY / AGITATION; Start 06/08/17 at 15:45 Vancomycin HCl 1.25 gm/Sodium Chloride 250 ml @ 167 mls/hr Q24H IV ; Start at 14:00; Stop 06/09/17 at 14:00; Status DC Vancomycin HCl 1 each 1X ONCE MC ; Start 06/11/17 at 13:30; Stop 06/11/17 at 13 :31; Status Cancel Piperacillin Sod/ Tazobactam Sod 4.5 gm/Sodium Chloride 100 ml @ 200 mls/hr Q6HRS IV Last administered on 06/10/17 00:10; Start 06/09/17 at 12:00; Stop at 07:56; Status DC Enoxaparin Sodium (Lovenox 40mg Syringe) 40 mg DAILY SQ Last administered on 08:41; Start 06/10/17 at 09:00 Alprazolam (Xanax) 0.25 mg PRN Q8HRS PRN PO ANXIETY / AGITATION; Start at 05:00 Alteplase, Recombinant (Cathflo) 2 mg 1X ONCE INT CAT Last administered on 05:30; Start 06/10/17 at 05:30; Stop 06/10/17 at 05:31; Status DC Meropenem 500 mg/ Sodium Chloride 50 ml @ 100 mls/hr Q8HRS IV Last administered on 06/10/17 08:41; Start 06/10/17 at 08:00 Active Scripts Active Reported Diovan (Valsartan) 160 Mg Tablet 160 Mg PEG DAILY Pantoprazole Sodium 40 Mg Tablet.dr 40 Mg PEG BID Donepezil Hcl 5 Mg Tablet 5 Mg PEG BID Reglan (Metoclopramide Hcl) 10 Mg Tablet 5 Mg PO QIDAFTMEAL Atenolol-Chlorthal 50-25 Tb (Atenolol/Chlorthalidone) 1 Each Tablet 1 Tab PEG DAILY Cyproheptadine Hcl 2 Mg/5 Ml Syrup 2 Mg PEG BID Percocet 7.5-325 Mg Tablet (Oxycodone/Acetaminophen) 1 Each Tablet 1 Tab PO QID PRN Proair Hfa Inhaler (Albuterol Sulfate) 8.5 Gm Hfa.aer.ad 2 Puff IH PRN Q4-6HRS FENTANYL 50mcg/hr (Fentanyl) 1 Each Patch.td72 1 Patch TP Q3DAYS Ondansetron Odt (Ondansetron) 4 Mg Tab.rapdis 4 Mg PEG QIDPRN PRN Vitals/I & O Vital Sign - Last 24 Hours 06/09/17 06/09/17 06/09/17 06/09/17 09:09 09:22 10:00 11:00 Pulse 83 76 82 Resp 24 26 B/P (MAP) 170/77 152/72 (98) 166/80 (108) Pulse Ox 94 95 99 O2 Delivery Ventilator Ventilator Tracheal Collar 06/09/17 06/09/17 06/09/17 06/09/17 11:00 12:00 12:00 13:00 Pulse 78 Resp 28 24 B/P (MAP) 180/60 (100) Pulse Ox 100 99 96 O2 Delivery Ventilator Mechanical Ventilator Tracheal Collar Tracheal Collar 06/09/17 06/09/17 06/09/17 06/09/17 13:05 13:40 14:57 15:00 Temp 98.4 98.4 Pulse 76 75 76 Resp 24 24 B/P (MAP) 173/76 (108) 186/104 186/104 (131) Pulse Ox 100 94 O2 Delivery Tracheal Collar Tracheal Collar Tracheal Collar 06/09/17 06/09/17 06/09/17 06/09/17 16:00 16:18 18:00 19:00 Pulse 77 77 Resp 22 21 B/P (MAP) 166/76 (106) 157/66 (96) Pulse Ox 99 100 O2 Delivery Mechanical Ventilator Tracheal Collar Tracheal Collar Tracheal Collar 06/09/17 06/09/17 06/09/17 06/09/17 19:27 20:00 20:00 21:00 Temp 98.9 98.9 Pulse 82 76 Resp 21 15 B/P (MAP) 155/69 (97) 174/76 (108) Pulse Ox 100 100 100 O2 Delivery Tracheal Collar Tracheal Collar Trach Collar Tracheal Collar 06/09/17 06/09/17 06/09/17 06/09/17 22:00 22:00 23:00 23:30 Pulse 70 66 Resp 19 17 B/P (MAP) 167/77 (107) 123/62 (82) Pulse Ox 100 100 99 100 O2 Delivery Ventilator Ventilator Ventilator Ventilator 06/10/17 06/10/17 06/10/17 06/10/17 00:00 00:00 01:00 02:00 Temp 98.9 98.9 Pulse 72 68 68 Resp 23 22 16 B/P (MAP) 144/68 (93) 105/57 (73) 119/60 (79) Pulse Ox 100 100 100 O2 Delivery Ventilator Mechanical Ventilator Ventilator Ventilator 06/10/17 06/10/17 06/10/17 06/10/17 02:10 03:00 04:00 04:00 Temp 98.3 98.3 Pulse 70 68 Resp 15 16 B/P (MAP) 116/61 (79) 113/62 (79) Pulse Ox 100 100 100 O2 Delivery Ventilator Ventilator Ventilator Mechanical Ventilator 06/10/17 06/10/17 06/10/17 06/10/17 04:56 05:00 05:00 06:00 Pulse 77 67 Resp 16 12 B/P (MAP) 150/77 (101) 143/69 (93) Pulse Ox 100 100 100 O2 Delivery Ventilator Ventilator Ventilator Ventilator 06/10/17 06/10/17 06/10/17 06/10/17 07:00 08:00 08:30 08:42 Temp 98.3 98.3 Pulse 66 82 77 Resp 19 B/P (MAP) 133/66 (88) 143/68 (93) 143/68 Pulse Ox 100 100 100 O2 Delivery Ventilator Tracheal Collar Ventilator Intake and Output 06/10/17 06/10/17 06/11/17 15:00 23:00 07:00 Intake Total 30 ml Balance 30 ml HEAVEN KRAUS MD Jun 10, 2017 09:10
--- NOTE | 2017-06-10 10:02 | PDOC ---
PULMONARY PROGRESS NOTES Subjective PT OFF VENT NO DISTRESS Vitals Vital Signs Date Time Temp Pulse Resp B/P (MAP) Pulse Ox O2 Delivery O2 Flow Rate FiO2 06/10/17 09:00 77 16 170/80 (110) 100 Tracheal Collar 06/10/17 08:00 98.3 98.3 ROS: No Nausea, No Chest Pain, No Abdominal Pain, No Increase Cough General: Alert Lungs: Crackles Cardiovascular: S1, S2 Abdomen: Soft, Non-tender, Other Neuro Exam: Alert Extremities: No Edema Skin: Warm, Dry Labs Laboratory Tests Test 06/09/17 01:24 06/09/17 05:35 06/09/17 08:05 06/10/17 07:03 Vancomycin Level Trough 11.8 mcg/mL (10.0-20.0) Vancomycin Last Dose Date Vancomycin Last Dose Time 0200 White Blood Count 12.9 x10^3/uL (4.0-11.0) 11.5 x10^3/uL (4.0-11.0) Red Blood Count 4.19 x10^6/uL (3.50-5.40) 4.50 x10^6/uL (3.50-5.40) Hemoglobin 10.4 g/dL (12.0-15.5) 11.0 g/dL (12.0-15.5) Hematocrit 33.9 % (36.0-47.0) 36.5 % (36.0-47.0) Mean Corpuscular Volume 81 fL (79-100) 81 fL (79-100) Mean Corpuscular Hemoglobin 25 pg (25-35) 24 pg (25-35) Mean Corpuscular Hemoglobin Concent 31 g/dL (31-37) 30 g/dL (31-37) Red Cell Distribution Width 16.8 % (11.5-14.5) 16.6 % (11.5-14.5) Platelet Count 356 x10^3/uL (140-400) 368 x10^3/uL (140-400) Neutrophils (%) (Auto) 74 % (31-73) 70 % (31-73) Lymphocytes (%) (Auto) 17 % (24-48) 18 % (24-48) Monocytes (%) (Auto) 8 % (0-9) 7 % (0-9) Eosinophils (%) (Auto) 1 % (0-3) 4 % (0-3) Basophils (%) (Auto) 0 % (0-3) 1 % (0-3) Neutrophils # (Auto) 9.5 x10^3uL (1.8-7.7) 8.1 x10^3uL (1.8-7.7) Lymphocytes # (Auto) 2.1 x10^3/uL (1.0-4.8) 2.1 x10^3/uL (1.0-4.8) Monocytes # (Auto) 1.0 x10^3/uL (0.0-1.1) 0.8 x10^3/uL (0.0-1.1) Eosinophils # (Auto) 0.2 x10^3/uL (0.0-0.7) 0.4 x10^3/uL (0.0-0.7) Basophils # (Auto) 0.0 x10^3/uL (0.0-0.2) 0.1 x10^3/uL (0.0-0.2) Sodium Level 143 mmol/L (136-145) 141 mmol/L (136-145) Potassium Level 3.7 mmol/L (3.5-5.1) 3.7 mmol/L (3.5-5.1) Chloride Level 107 mmol/L (98-107) 105 mmol/L (98-107) Carbon Dioxide Level 31 mmol/L (21-32) 30 mmol/L (21-32) Anion Gap 5 (6-14) 6 (6-14) Blood Urea Nitrogen 17 mg/dL (7-20) 14 mg/dL (7-20) Creatinine 1.0 mg/dL (0.6-1.0) 1.0 mg/dL (0.6-1.0) Estimated GFR (Cockcroft-Gault) 65.2 65.2 Glucose Level 104 mg/dL (70-99) 105 mg/dL (70-99) Calcium Level 8.8 mg/dL (8.5-10.1) 9.2 mg/dL (8.5-10.1) O2 Saturation 87 % (92-99) Arterial Blood pH 7.44 (7.35-7.45) Arterial Blood pCO2 at Patient Temp 40 mmHg (35-46) Arterial Blood pO2 at Patient Temp 53 mmHg (65-108) Arterial Blood HCO3 27 mmol/L (21-28) Arterial Blood Base Excess 3 mmol/L (-3-3) FiO2 35 Laboratory Tests Test 06/10/17 07:03 White Blood Count 11.5 x10^3/uL (4.0-11.0) Red Blood Count 4.50 x10^6/uL (3.50-5.40) Hemoglobin 11.0 g/dL (12.0-15.5) Hematocrit 36.5 % (36.0-47.0) Mean Corpuscular Volume 81 fL (79-100) Mean Corpuscular Hemoglobin 24 pg (25-35) Mean Corpuscular Hemoglobin Concent 30 g/dL (31-37) Red Cell Distribution Width 16.6 % (11.5-14.5) Platelet Count 368 x10^3/uL (140-400) Neutrophils (%) (Auto) 70 % (31-73) Lymphocytes (%) (Auto) 18 % (24-48) Monocytes (%) (Auto) 7 % (0-9) Eosinophils (%) (Auto) 4 % (0-3) Basophils (%) (Auto) 1 % (0-3) Neutrophils # (Auto) 8.1 x10^3uL (1.8-7.7) Lymphocytes # (Auto) 2.1 x10^3/uL (1.0-4.8) Monocytes # (Auto) 0.8 x10^3/uL (0.0-1.1) Eosinophils # (Auto) 0.4 x10^3/uL (0.0-0.7) Basophils # (Auto) 0.1 x10^3/uL (0.0-0.2) Sodium Level 141 mmol/L (136-145) Potassium Level 3.7 mmol/L (3.5-5.1) Chloride Level 105 mmol/L (98-107) Carbon Dioxide Level 30 mmol/L (21-32) Anion Gap 6 (6-14) Blood Urea Nitrogen 14 mg/dL (7-20) Creatinine 1.0 mg/dL (0.6-1.0) Estimated GFR (Cockcroft-Gault) 65.2 Glucose Level 105 mg/dL (70-99) Calcium Level 9.2 mg/dL (8.5-10.1) Medications Active Scripts Medications Dose Route/Sig Max Daily Dose Days Date Category Diovan (Valsartan) 160 Mg Tablet 160 Mg PEG DAILY 03/11/17 Reported Pantoprazole Sodium 40 Mg Tablet.dr 40 Mg PEG BID 03/11/17 Reported Donepezil Hcl 5 Mg Tablet 5 Mg PEG BID 03/11/17 Reported Reglan (Metoclopramide Hcl) 10 Mg Tablet 5 Mg PO QIDAFTMEAL 03/11/17 Reported Atenolol-Chlorthal 50-25 Tb (Atenolol/Chlorthalidone) 1 Each Tablet 1 Tab PEG DAILY 03/11/17 Reported Cyproheptadine Hcl 2 Mg/5 Ml Syrup 2 Mg PEG BID 03/11/17 Reported Percocet 7.5-325 Mg Tablet (Oxycodone/Acetaminophen) 1 Each Tablet 1 Tab PO QID PRN 03/11/17 Reported Proair Hfa Inhaler (Albuterol Sulfate) 8.5 Gm Hfa.aer.ad 2 Puff IH PRN Q4-6HRS 08/16/15 Reported FENTANYL 50mcg/hr (Fentanyl) 1 Each Patch.td72 1 Patch TP Q3DAYS 06/19/14 Reported Ondansetron Odt (Ondansetron) 4 Mg Tab.rapdis 4 Mg PEG QIDPRN PRN 06/19/14 Reported Impression . 1. [id number] respiratory failure, multifactorial in etiology. 2. Abnormal chest x-ray. 3. suspect Gram pos and gram neg pneumonia 4. Laryngeal cancer status post laryngectomy. 5. Tracheostomy tube 6. History of methicillin-resistant staphylococcus aureus. 7. Leukocytosis. 8. Acute kidney injury. Plan . Vent QHS Continue antibx Tolerating tube feeding DVT/GI prophylaxis add benzo for anxiety d/w RN/RT ANURAG LOO MD Jun 10, 2017 10:02
[2017-06-10] MEDS: ONDANSETRON PF 4 MG/2 ML VIAL. IV PRN (10:18)
[2017-06-10] MEDS: METOCLOPRAMIDE 5 MG TABLET. PO SCH ×4 (10:18→20:50)
[2017-06-10] MEDS: MORPHINE SULFATE 4 MG/ML DISP.SYRIN. IV PRN (20:50)
[2017-06-10] MEDS: hydrALAZINE 20 MG/ML VIAL. IVP PRN (21:15)
[2017-06-11] VITALS (8 sets, daily range): BP systolic 98–175; BP diastolic 51–82
[2017-06-11] MEDS: oxyCODONE/APAP 7.5/325 1 TAB TABLET PO PRN ×2 (05:10→13:12)
[2017-06-11] MEDS: MEROPENEM 500 MG in IV NORMAL SALINE 50ML 50 ML IV SCH ×2 (06:03→14:00)
--- NOTE | 2017-06-11 07:57 | PDOC ---
Infectious Disease Note Subjective Subjective awake, feeling good, says ready to go home ROS ROS no n/v/d/pain Vital Sign Vital Signs Vital Signs Date Time Temp Pulse Resp B/P (MAP) Pulse Ox O2 Delivery O2 Flow Rate FiO2 06/11/17 06:00 94 18 156/75 (102) 97 Tracheal Collar 06/11/17 04:00 98.0 98.0 06/10/17 20:16 15.0 Physical Exam PHYSICAL EXAM GENERAL: NAD, Alert HEENT: PERRL, OC/OP NECK: Supple, no JVD, no LN LUNGS: Clear HEART: S1S2, no gallop, no murmur ABD: Soft, NT, no organomegaly, no rebound EXT: No edema, no cyanosis CERTIFIED DRUG COUNSELOR: Alert, oriented x 3, no focal neurologic deficit SKIN: No rash IV: ok Labs Micro BC culture neg Sputum SPUTUM CULT RES 1 Final Escherichia coli Light growth * This is a corrected result. * A prior result that was reported as final has been changed. ANTIMICROBIAL SUSCEPTIBILITY Final Comment CONTINUED ON NEXT PAGE RUN DATE: 06/09/17 PAGE 2 RUN TIME: 1119 [facility] [address] [place] [address] Jroge Tierney M.D., Trim Master Operator SPEC: [id number] PATIENT: BERNARDO DE LEON [id number] ( Continued) Procedure Result ANTIMICROBIAL SUSCEPTIBILITY Final (continued) S = Susceptible; I = Intermediate; R = Resistant P = Positive; N = Negative MICS are expressed in micrograms per mL Antibiotic RSLT#1 RSLT#2 RSLT#3 RSLT#4 Amoxicillin/Clavulanic Acid S Ampicillin R Cefepime S Ceftriaxone S Cefuroxime S Ciprofloxacin R Ertapenem S Gentamicin S Imipenem S Levofloxacin R Piperacillin R Tetracycline R Tobramycin I Trimethoprim/Sulfa R Performed at: [address] [id number] Flavor Tank Tender: Nicole Freire MD, Phone: [phone] Objective Assessment HCAP Leukocytosis Acute-on chronic respiratory failure SANCHEZ Hx laryngeal and lung cancer s/p chemoradiation HX MRSA, PSA and C. diff Dehydration Plan Plan of Care meropenem, cont until pt is here, for d/c change to vantin through tube,, d/c today ok Monitor WBC, renal function and temp f/u cultures Off load heels ASTER MATOS MD Jun 11, 2017 07:57
--- NOTE | 2017-06-11 08:50 | PDOC3 ---
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, has trach Dysphagia , PEG htn COPD h/o cdiff h/o MRSA h/O pseudomonas PNA SANCHEZ, vasomotor mild malnutrition Sepsis with HAP Final Diagnosis Problems Medical Problems: (1) Healthcare-associated pneumonia Status: Acute (2) Sepsis Status: Acute Brief Hospital Course Allergies Allergies Coded Allergies Type Severity Reaction Last Updated Verified aspirin Allergy Intermediate hives 03/16/17 Yes Vital Signs Vital Signs Date Time Temp Pulse Resp B/P (MAP) Pulse Ox O2 Delivery O2 Flow Rate FiO2 06/11/17 06:00 94 18 156/75 (102) 97 Tracheal Collar 06/11/17 04:00 98.0 98.0 06/10/17 20:16 15.0 Lab Results Laboratory Tests Test 06/10/17 07:03 White Blood Count 11.5 x10^3/uL (4.0-11.0) Red Blood Count 4.50 x10^6/uL (3.50-5.40) Hemoglobin 11.0 g/dL (12.0-15.5) Hematocrit 36.5 % (36.0-47.0) Mean Corpuscular Volume 81 fL (79-100) Mean Corpuscular Hemoglobin 24 pg (25-35) Mean Corpuscular Hemoglobin Concent 30 g/dL (31-37) Red Cell Distribution Width 16.6 % (11.5-14.5) Platelet Count 368 x10^3/uL (140-400) Neutrophils (%) (Auto) 70 % (31-73) Lymphocytes (%) (Auto) 18 % (24-48) Monocytes (%) (Auto) 7 % (0-9) Eosinophils (%) (Auto) 4 % (0-3) Basophils (%) (Auto) 1 % (0-3) Neutrophils # (Auto) 8.1 x10^3uL (1.8-7.7) Lymphocytes # (Auto) 2.1 x10^3/uL (1.0-4.8) Monocytes # (Auto) 0.8 x10^3/uL (0.0-1.1) Eosinophils # (Auto) 0.4 x10^3/uL (0.0-0.7) Basophils # (Auto) 0.1 x10^3/uL (0.0-0.2) Sodium Level 141 mmol/L (136-145) Potassium Level 3.7 mmol/L (3.5-5.1) Chloride Level 105 mmol/L (98-107) Carbon Dioxide Level 30 mmol/L (21-32) Anion Gap 6 (6-14) Blood Urea Nitrogen 14 mg/dL (7-20) Creatinine 1.0 mg/dL (0.6-1.0) Estimated GFR (Cockcroft-Gault) 65.2 Glucose Level 105 mg/dL (70-99) Calcium Level 9.2 mg/dL (8.5-10.1) Brief Hospital Course Ms. Ch is a 77 old AA female who despite stage 4 cancer (trached and pegd) has good ADLs, admitted for pneumonia in an immuncomp,. COmanaged with ID , grew E coli in sputum, resistant to zosyn so was shifted to meropnemen, BC always neg, No fevers, WBC signif came down, To dc on PO vantin 200 BID x [address] Kavya unger, Lots of secretions which she will have, CAn try scopolamine patch and some robitussin with phenergan for CP while coughing Discharge Information Condition at Discharge: Improved, Stable Disposition/Orders: D/C to Home w/ HH Scheduled Albuterol Sulfate (Proair Hfa Inhaler), 2 PUFF IH PRN Q4-6HRS, (Reported) Atenolol/Chlorthalidone (Atenolol-Chlorthal 50-25 Tb), 1 TAB PEG DAILY, ( Reported) Cyproheptadine Hcl (Cyproheptadine Hcl), 2 MG PEG BID, (Reported) Donepezil Hcl (Donepezil Hcl), 5 MG PEG BID, (Reported) Fentanyl (FENTANYL 50mcg/hr), 1 PATCH TP Q3DAYS, (Reported) Metoclopramide Hcl (Reglan), 5 MG PO QIDAFTMEAL, (Reported) Pantoprazole Sodium (Pantoprazole Sodium), 40 MG PEG BID, (Reported) Valsartan (Diovan), 160 MG PEG DAILY, (Reported) Scheduled PRN Ondansetron (Ondansetron Odt), 4 MG PEG QIDPRN PRN for NAUSEA/VOMITING, ( Reported) Oxycodone/Apap 7.5-325 (Percocet 7.5-325 Mg Tablet), 1 TAB PO QID PRN for PAIN, (Reported) HEAVEN KRAUS MD Jun 11, 2017 08:50
[2017-06-11] MEDS: IPRATRPIUM/ALBUTEROL 0.5/2.5MG 3 ML NEBU. NEB SCH ×2 (09:00→12:15)
[2017-06-11] MEDS ORDERED: SCOPOLAMINE 1.5MG PATCH. TD SCH (09:00)
[2017-06-11] MEDS ORDERED: PROMETH/CODEINE 6.25/10MG 5 ML SYRUP. PO PRN (09:00)
[2017-06-11] MEDS: fentaNYL 50MCG/HR PATCH 1 PATCH PATCH.TD72 TD SCH (09:14)
[2017-06-11] MEDS: CHLORTHALIDONE 25 MG TABLET. PEG SCH (09:15)
[2017-06-11] MEDS: DONEPEZIL HCL 5 MG TABLET. PEG SCH (09:15)
[2017-06-11] MEDS: CYPROHEPTADINE 4 MG TABLET. PEG SCH (09:15)
[2017-06-11] MEDS: METOCLOPRAMIDE 5 MG TABLET. PO SCH ×2 (09:15→13:11)
[2017-06-11] MEDS: ENOXAPARIN 40 MG/0.4 ML SYRINGE. SQ SCH (09:15)
[2017-06-11] MEDS: ATENOLOL 50 MG TABLET. PEG SCH (09:15)
[2017-06-11] MEDS: LANSOPRAZOLE 30 MG TAB.RAP.DR PEG SCH (09:16)
--- NOTE | 2017-06-11 09:29 | PDOC ---
PULMONARY PROGRESS NOTES Subjective PT OFF VENT NO DISTRESS wants to go home Vitals Vital Signs Date Time Temp Pulse Resp B/P (MAP) Pulse Ox O2 Delivery O2 Flow Rate FiO2 06/11/17 09:15 90 165/82 06/11/17 09:14 28 100 06/11/17 09:05 Tracheal Collar 8.0 06/11/17 04:00 98.0 98.0 ROS: No Nausea, No Chest Pain, No Abdominal Pain, No Increase Cough General: Alert Lungs: Crackles Cardiovascular: S1, S2 Abdomen: Soft, Non-tender, Other Neuro Exam: Alert Extremities: No Edema Skin: Warm, Dry Labs Laboratory Tests Test 06/10/17 07:03 White Blood Count 11.5 x10^3/uL (4.0-11.0) Red Blood Count 4.50 x10^6/uL (3.50-5.40) Hemoglobin 11.0 g/dL (12.0-15.5) Hematocrit 36.5 % (36.0-47.0) Mean Corpuscular Volume 81 fL (79-100) Mean Corpuscular Hemoglobin 24 pg (25-35) Mean Corpuscular Hemoglobin Concent 30 g/dL (31-37) Red Cell Distribution Width 16.6 % (11.5-14.5) Platelet Count 368 x10^3/uL (140-400) Neutrophils (%) (Auto) 70 % (31-73) Lymphocytes (%) (Auto) 18 % (24-48) Monocytes (%) (Auto) 7 % (0-9) Eosinophils (%) (Auto) 4 % (0-3) Basophils (%) (Auto) 1 % (0-3) Neutrophils # (Auto) 8.1 x10^3uL (1.8-7.7) Lymphocytes # (Auto) 2.1 x10^3/uL (1.0-4.8) Monocytes # (Auto) 0.8 x10^3/uL (0.0-1.1) Eosinophils # (Auto) 0.4 x10^3/uL (0.0-0.7) Basophils # (Auto) 0.1 x10^3/uL (0.0-0.2) Sodium Level 141 mmol/L (136-145) Potassium Level 3.7 mmol/L (3.5-5.1) Chloride Level 105 mmol/L (98-107) Carbon Dioxide Level 30 mmol/L (21-32) Anion Gap 6 (6-14) Blood Urea Nitrogen 14 mg/dL (7-20) Creatinine 1.0 mg/dL (0.6-1.0) Estimated GFR (Cockcroft-Gault) 65.2 Glucose Level 105 mg/dL (70-99) Calcium Level 9.2 mg/dL (8.5-10.1) Medications Active Scripts Medications Dose Route/Sig Max Daily Dose Days Date Category Diovan (Valsartan) 160 Mg Tablet 160 Mg PEG DAILY 03/11/17 Reported Pantoprazole Sodium 40 Mg Tablet.dr 40 Mg PEG BID 03/11/17 Reported Donepezil Hcl 5 Mg Tablet 5 Mg PEG BID 03/11/17 Reported Reglan (Metoclopramide Hcl) 10 Mg Tablet 5 Mg PO QIDAFTMEAL 03/11/17 Reported Atenolol-Chlorthal 50-25 Tb (Atenolol/Chlorthalidone) 1 Each Tablet 1 Tab PEG DAILY 03/11/17 Reported Cyproheptadine Hcl 2 Mg/5 Ml Syrup 2 Mg PEG BID 03/11/17 Reported Percocet 7.5-325 Mg Tablet (Oxycodone/Acetaminophen) 1 Each Tablet 1 Tab PO QID PRN 03/11/17 Reported Proair Hfa Inhaler (Albuterol Sulfate) 8.5 Gm Hfa.aer.ad 2 Puff IH PRN Q4-6HRS 08/16/15 Reported FENTANYL 50mcg/hr (Fentanyl) 1 Each Patch.td72 1 Patch TP Q3DAYS 06/19/14 Reported Ondansetron Odt (Ondansetron) 4 Mg Tab.rapdis 4 Mg PEG QIDPRN PRN 06/19/14 Reported Impression . 1. Azawm-rs-hdqqggz respiratory failure, multifactorial in etiology. 2. Abnormal chest x-ray. 3. suspect Gram pos and gram neg pneumonia 4. Laryngeal cancer status post laryngectomy. 5. Tracheostomy tube 6. History of methicillin-resistant staphylococcus aureus. 7. Leukocytosis. 8. Acute kidney injury. Plan . Ok to d/c home follow up with me as needed anitbx per ANURAG ELLER MD Jun 11, 2017 09:29
== END 2017-06-11 16:25 | disposition home health service (06) | DRG 871 ==
LOC: ER 22:44 → 1 WEST ICU 06-07 01:01
PROVIDERS: ADMIT Internal Medicine; ATTEND Internal Medicine
PROC: 5A1945Z Respiratory Ventilation, 24-96 Consecutive Hours (ICD-10-PCS; principal; 2017-06-07)
PROC: 0BH17EZ Insertion of Endotracheal Airway into Trachea, Via Natural or Artificial Opening (ICD-10-PCS; 2017-06-07)
DX: A41.9 Sepsis, unspecified organism (principal); J96.21 Acute and chronic respiratory failure with hypoxia; N17.0 Acute kidney failure with tubular necrosis; J18.9 Pneumonia, unspecified organism; J44.0 Chronic obstructive pulmonary disease with (acute) lower respiratory infection; Z93.0 Tracheostomy status; Z99.81 Dependence on supplemental oxygen; E86.0 Dehydration; J96.22 Acute and chronic respiratory failure with hypercapnia; E44.1 Mild protein-calorie malnutrition; E78.00 Pure hypercholesterolemia, unspecified; G47.30 Sleep apnea, unspecified; I10 Essential (primary) hypertension; K21.9 Gastro-esophageal reflux disease without esophagitis; B96.20 Unspecified Escherichia coli [E. coli] as the cause of diseases classified elsewhere; Z16.20 Resistance to unspecified antibiotic; Y95 Nosocomial condition; Z68.30 Body mass index [BMI] 30.0-30.9, adult; Z85.118 Personal history of other malignant neoplasm of bronchus and lung; Z85.21 Personal history of malignant neoplasm of larynx; Z86.14 Personal history of Methicillin resistant Staphylococcus aureus infection; Z87.01 Personal history of pneumonia (recurrent); Z87.11 Personal history of peptic ulcer disease; Z87.891 Personal history of nicotine dependence; Z90.02 Acquired absence of larynx; Z90.3 Acquired absence of stomach [part of]; Z92.21 Personal history of antineoplastic chemotherapy; Z92.3 Personal history of irradiation; Z93.3 Colostomy status; Z98.49 Cataract extraction status, unspecified eye; Z82.49 Family history of ischemic heart disease and other diseases of the circulatory system; Z88.8 Allergy status to other drugs, medicaments and biological substances
CPT/HCPCS: 36415; 36600; 71010; 80048; 80053; 80202; 82805; 83605; 85007; 85025; 86850; 86900; 86901; 87040; 87070; 87186; 87205; 87641; 90686; 93005; 94002; 94003; 94640; J0360; J1650; J2060; J2185; J2270; J2405; J2543; J2997; J3370; J7030; J7040; J7050; J7620; J7626; J8597; 97110; 97116; 97535; 99291-25

== ENCOUNTER 2017-06-30 11:08 | Inpatient (IN) | payer MEDICARE, OTHER ==
[~2017-06-30] VITALS: Ht 167.6 cm; Wt 58.5 kg
[2017-06-30] MEDS ORDERED: IV NORMAL SALINE 1000ML BAG 1,000 ML IV SCH (11:53)
[2017-06-30] MEDS ORDERED: 0.9 % SODIUM CHLORIDE 10 ML DISP.SYRIN. IV PRN (12:00)
--- NOTE | 2017-06-30 12:05 | PHYS DOC ---
Past Medical History Past Medical History: Cancer, Hypertension, MRSA, Pneumonia, Other Additional Past Medical Histor: LUNG AND LYMPH NODES CANCER, orig dx: 2009. Had chemo & radiation in 2008 Past Surgical History: Other Additional Past Surgical Histo: cataract, PEG tube, ca, TRACH, COLOSTOMY Alcohol Use: None Drug Use: None Adult General Chief Complaint Chief Complaint: SHORTNESS OF BREATH HPI HPI She is a pleasant 77-year-old female who lives at home with family with a history of hypertension, and prior lung lung cancer requiring chemotherapy and radiation therapy, who has a residual PEG tube and tracheostomy secondary to respiratory problems who presents with respiratory distress. Patient on Thursday had an issue with hypertensive episode and possible aspiration pneumonia. Family did not seek treatment at that time but they did note increasing oxygen demand from 3 L normally to now 5 L of nasal cannula is.. Patient today was found this morning with decreased saturation to 51% and decreased mental status changes. Patient has had no change in medications but family has noted increased oxygen demand as well as URI symptoms of increasing secretions in her nose, production of a cough and mucus from her tracheostomy. Family is also increased weakness and decreased oral intake or patient is now so somnolent she actually does not complete her feedings through her PEG tube. There is no apparent complaint of abdominal pain change in stooling habits. No fevers been documented. Family is initially concerned with this increased weakness that they actually had follow-up arranged for later this week. Review of Systems Review of Systems Constitutional: Subjective fevers but nothing measured. Eyes: Denies change in visual acuity, redness, or eye pain [] HENT: Crease nasal congestion secretions from the tracheostomy tube Respiratory: cough and increasing shortness of breath noted Cardiovascular: No additional information not addressed in HPI [] GI: Denies abdominal pain, nausea, vomiting, bloody stools or diarrhea [] : Denies dysuria or hematuria [] Musculoskeletal: Denies back pain or joint pain [] Integument: Denies rash or skin lesions [] Neurologic: She has no specific complaint of headache but increasing weakness generally. Current Medications Current Medications Current Medications Medications (Trade) Dose Ordered Sig/Yuliana Start Time Stop Time Status Last Admin Dose Admin Azithromycin 250 ml @ 250 mls/hr 1X ONCE 06/30/17 13:30 06/30/17 14:29 Azithromycin 500 mg/Sodium Chloride 250 ml @ 250 mls/hr 1X ONCE 06/30/17 13:15 06/30/17 14:14 UNV Ceftriaxone Sodium 1 gm/ Dextrose 50 ml @ 100 mls/hr Q24H 07/01/17 14:00 Ceftriaxone Sodium 50 ml @ 100 mls/hr 1X ONCE 06/30/17 13:30 06/30/17 13:59 Sodium Chloride (NORMAL SALINE FLUSH for STERILE FIELD) 10 ml STK-MED ONCE 06/30/17 12:44 06/30/17 12:45 DC Sodium Chloride (Normal Saline Flush) 10 ml QSHIFT PRN 06/30/17 12:00 Allergies Allergies Allergies Coded Allergies Type Severity Reaction Last Updated Verified aspirin Allergy Intermediate hives 03/16/17 Yes Physical Exam Physical Exam Vital signs recorded on the chart within normal limits. Patient not hypoxic on 3 L by nasal cannula Constitutional: sHe is thin and cachectic with a significant dehydrated state with dry mucous membranes, tracheostomy tube with secretions noted around the base. HENT: Normocephalic, atraumatic, bilateral external ears normal, very dry mucous membrane no oral exudates, nose normal. [] Eyes: PERRLA, EOMI, conjunctiva normal, no discharge. [] Neck: Normal range of motion, no tenderness, supple, no stridor. [] Cardiovascular:Heart rate regular rhythm, no murmur [] Lungs & Thorax: Significantly coarse breath sounds and decreased breath sounds throughout coarse rhonchi's. Abdomen: Bowel sounds normal, soft, no tenderness, no masses, no pulsatile masses. [] Skin: Warm, dry, no erythema, no rash. [] Back: No tenderness, no CVA tenderness. [] Extremities: No tenderness, no cyanosis, no clubbing, ROM intact, no edema. [] Neurologic: Patient is somnolent but arousable Current Patient Data Vital Signs Vital Signs Date Time Temp Pulse Resp B/P (MAP) Pulse Ox O2 Delivery O2 Flow Rate FiO2 06/30/17 12:04 100 Tracheal Collar 3.0 06/30/17 11:10 99.0 86 18 116/63 (80) 99.0 Lab Values Laboratory Tests Test 06/30/17 12:14 O2 Saturation 98 % (92-99) Arterial Blood pH 7.42 (7.35-7.45) Arterial Blood pCO2 at Patient Temp 51 mmHg (35-46) H Arterial Blood pO2 at Patient Temp 135 mmHg (65-108) H Arterial Blood HCO3 32 mmol/L (21-28) H Arterial Blood Base Excess 7 mmol/L (-3-3) H FiO2 32 EKG EKG []EKG timed 11:28 AM 06/30/2017 read by me demonstrate a heart rate of 84 with or is a P to every QRS Imitrex normal sinus rhythm, there is a left axis deviation, left atrial murmurs based on P wave morphology in lead 2 patient has some nonspecific T-wave inversion in the anterior leads V1 physical or T-wave inversion cyst with acute cardiac ischemia. Radiology/Procedures Radiology/Procedures [] [facility] [address] [place] [address] IMAGING REPORT Signed PATIENT: BERNARDO DE LEON ACCOUNT: [id number] : 1940 LOCATION: ER AGE: 77 SEX: F EXAM STATUS: REG ER ORD. PHYSICIAN: RADHA ANAYA MD REASON: cough hypoxia PROCEDURE: PORTABLE CHEST 1V Indication cough. Difficulty breathing. A single view of the chest was obtained. Comparison is made to an examination 06/08/2017. Volume loss at the lung bases left greater than right has worsened relative to the previous exam. Findings are compatible with atelectasis or pneumonia. There are bilateral pleural effusions which appear larger. There are suspect background changes of mild congestive heart failure. Tracheostomy tube and right Port-A-Cath are noted. IMPRESSION: Interval worsening. Volume loss at the lung bases has progressed. Findings may reflect atelectasis or pneumonia. There are bilateral pleural effusions which appear somewhat larger. There are suspect background changes of mild congestive heart failure DICTATED and SIGNED BY: MIKE DURHAM MD DATE: 06/30/17 1221 CC: RADHA ANAYA MD; CATHERINE MOSCOSO MD ~ Course & Med Decision Making Course & Med Decision Making Pertinent Labs and Imaging studies reviewed. (See chart for details) []A she presents with difficulty breathing and hypoxia noted at home by the family. Questionable aspiration 3 days ago while at home. Patient is normally on tube feeds and she has had difficulty tolerating feeds with increasing and was weakness and ability.Differential diagnosis: Acute myocardial ischemia, heart failure, cardiac tamponade, bronchospasm, pulmonary embolism, pneumothorax, pulmonary infection i.e. bronchitis or pneumonia, upper airway obstruction, anaphylaxis, aspiration, psychogenic, pulmonary contusion, toxidrome, pneumomediastinum, noncardiogenic pulmonary edema or ARDS, COPD, tuberculosis, cystic fibrosis, asthma, high altitude pulmonary edema, valvular dysfunction, cardiac dysrhythmia, stroke, neuromuscular diseases like myasthenia gravis gravis, ALS, Guillain-Diaz syndrome, metabolic acidosis to include diabetic ketoacidosis, sepsis, and obstructive disorders like massive obesity she first arrived patient was initially suctioned through the tracheostomy and had improvement of her saturation from 60% to 100% on 3 L nasal cannula's. Patient' s family did note increasing oxygen demand over the last several days increased to 3 L to 5 L. In the history of possible aspiration I've elected to do blood cultures, CMP, CBC, troponin, lactic acid, EKG and appropriate supportive medications. Time is now 12:30 laboratory work still not returned patient is resting comfortably normotensive not hypoxic. I'm is now 12:40 PM chest x-ray read by radiology shows increasing interval change of decreasing lung volumes and possible pneumonia. Patient's laboratory work still has not returned. Time is now 1:30 PM it is noted that the staff has had a difficult time getting non-lysed blood specimens for laboratory work and now has just completed that withdrawal symptoms to lab. In the interim given patient's pneumonia patient is received fluids, antibiotics to include Rocephin and azithromycin and I've elected to admit her to the hospital under the care of the hospitalist group Dynamics Ax Developer note: Dr. Nina Dynamics Ax Developer called at of the service internal medicine service 1:30 pm Consult called back at 1:30 physician was in ER Discussed the case I presented and they agreed with admission. Time of acceptance 1:30 Román Disclaimer Lulyon Disclaimer This electronic medical record was generated, in whole or in part, using a voice recognition dictation system. Departure Departure Impression: Primary Impression: CAP (community acquired pneumonia) Additional Impressions: Dyspnea Unspecified protein-calorie malnutrition Disposition: ADMITTED INPATIENT Admitting Physician: Phylicia Nina Condition: GUARDED Referrals: CATHERINE MOSCOSO MD (PCP) Problem Qualifiers RADHA ANAYA MD Jun 30, 2017 12:05
[2017-06-30 12:20] LABS: HCO3 ABG 32 mmol/L (21-28); PCO2 ABG 51 mmHg (35-46); PH ABG 7.42 (7.35-7.45); PO2 ABG 135 mmHg (65-108); SAT O2 ABG 98 % (92-99)
[2017-06-30 12:21] LABS: FIO2 ABG 32
--- NOTE | 2017-06-30 12:25 | RAD ---
Indication cough. Difficulty breathing. A single view of the chest was obtained. Comparison is made to an examination 06/08/2017. Volume loss at the lung bases left greater than right has worsened relative to the previous exam. Findings are compatible with atelectasis or pneumonia. There are bilateral pleural effusions which appear larger. There are suspect background changes of mild congestive heart failure. Tracheostomy tube and right Port-A-Cath are noted. IMPRESSION: Interval worsening. Volume loss at the lung bases has progressed. Findings may reflect atelectasis or pneumonia. There are bilateral pleural effusions which appear somewhat larger. There are suspect background changes of mild congestive heart failure
[2017-06-30] MEDS ORDERED: 0.9 % SOD CHL for STERILE FIELD 10 ML DISP.SYRIN. ONE (12:44)
--- NOTE | 2017-06-30 12:48 | EKG ---
[facility] [address] [place] [address] Test Date: 2017-06-30 Test Time: 11:28:42 Pat Name: BERNARDO DE LEON Department: Room: Gender: F Obstetrics Gynecology Physician: : 1940 Requested By: RADHA ANAYA Order Number: [id number] Reading MD: Measurements Intervals Gaston Rate: 84 P: 36 ND: 176 QRS: -22 QRSD: 86 T: 34 QT: 378 QTc: 450 Interpretive Statements SINUS RHYTHM LEFT ATRIAL ABNORMALITY LEFTWARD AXIS QRS(T) CONTOUR ABNORMALITY CONSIDER ANTEROLATERAL MYOCARDIAL DAMAGE RI6.01 Unconfirmed report No previous ECG available for comparison
[2017-06-30] MEDS ORDERED: AZITHROMYCIN 500 MG in IV NORMAL SALINE 250ML 250 ML IV ONE (13:15)
[2017-06-30] MEDS ORDERED: AZITHRMYCN 500MG IVPB FOR OMNI 250 ML IV ONE (13:30)
[2017-06-30 13:43] LABS: BASO # 0.1 x10^3/uL (0.0-0.2); BASO % 1 % (0-3); EOS % 1 % (0-3); HEMOGLOBIN 10.5 g/dL (12.0-15.5); LYMPH # 3.5 x10^3/uL (1.0-4.8); LYMPH % 17 % (24-48); MEAN CORPUSCULAR HEMOGLOBIN 25 pg (25-35); MEAN CORPUSCULAR HGB CONC 31 g/dL (31-37); MEAN CORPUSCULAR VOLUME 80 fL (79-100); MONO % 8 % (0-9); NEUT % 74 % (31-73); PLATELET COUNT 387 x10^3/uL (140-400); RED BLOOD COUNT 4.23 x10^6/uL (3.50-5.40); RED CELL DISTRIBUTION WIDTH 18.1 % (11.5-14.5); WHITE BLOOD COUNT 20.2 x10^3/uL (4.0-11.0)
[2017-06-30] MEDS ORDERED: ONDANSETRON PF 4 MG/2 ML VIAL. IV PRN (13:45)
--- NOTE | 2017-06-30 14:01 | PDOC1 ---
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, has trach Dysphagia , PEG htn COPD h/o cdiff h/o MRSA h/O pseudomonas PNA SANCHEZ, vasomotor mild malnutrition Sepsis with HAP She was reportedly weak, falling asleep while doing tube feeds herself,.She does have HH, I did ask the sisters who are at bedside re codes tatus and this time considering hospice, THE ISSUE IS THEY ASKED THE PATIENT HERSELF THIS BEFORE COMING TO HOSP, AND THE PATIENT HERSELF WANTS TO BE AGGRESSIVE, I couldnot verify this with potato chip frier t ER now as she doxes off, VS ok, getting labs now, all else is pending, BUt likely given hx and clinical picture, AGAIN ASPIRATING. Past Medical History Cardiovascular: HTN Pulmonary: COPD, Pneumonia, Other CENTRAL NERVOUS SYSTEM: Other GI: Other Heme/Onc: Anemia NOS, Cancer Hepatobiliary: No pertinent hx Psych: No pertinent hx Musculoskeletal: Osteoarthritis Rheumatologic: No pertinent hx Infectious disease: No pertinent hx Renal/: No pertinent hx Endocrine: No pertinent hx Past Surgical History Past Surgical History: Cataract Removal, Other Family History Family History: Heart Disease Social History Smoke: No ALCOHOL: none Drugs: None Current Problem List Problem List Problems Medical Problems: (1) CAP (community acquired pneumonia) Status: Acute (2) Dyspnea Status: Acute (3) Unspecified protein-calorie malnutrition Status: Acute Problems: Current Medications Current Medications Current Medications Sodium Chloride 1,000 ml @ 1,000 mls/hr Q1H IV Last administered on t 12:18; Start 06/30/17 at 11:53; Stop 06/30/17 at 12:52; Status DC Sodium Chloride (Normal Saline Flush) 10 ml QSHIFT PRN IV AFTER MEDS AND BLOOD DRAWS; Start 06/30/17 at 12:00 Sodium Chloride (NORMAL SALINE FLUSH for STERILE FIELD) 10 ml STK-MED ONCE .ROUTE ; Start 06/30/17 at 12:44; Stop 06/30/17 at 12:45; Status DC Ceftriaxone Sodium 1 gm/ Dextrose 50 ml @ 100 mls/hr Q24H IV ; Start 07/01/17 at 14:00 Azithromycin 500 mg/Sodium Chloride 250 ml @ 250 mls/hr 1X ONCE IV ; Start at 13:15; Stop 06/30/17 at 14:14; Status UNV Ceftriaxone Sodium 50 ml @ 100 mls/hr 1X ONCE IV ; Start 06/30/17 at 13:30; Stop 06/30/17 at 13:59 Azithromycin 250 ml @ 250 mls/hr 1X ONCE IV ; Start 06/30/17 at 13:30; Stop 06/30/17 at 14:29 Ondansetron HCl (Zofran) 4 mg PRN Q8HRS PRN IV NAUSEA/VOMITING; Start at 13:45; Stop 07/01/17 at 13:44 Sodium Chloride 1,000 ml @ 100 mls/hr Q10H IV ; Start 06/30/17 at 14:00; Stop 07/01/17 at 13:59 Active Scripts Active Reported Diovan (Valsartan) 160 Mg Tablet 160 Mg PEG DAILY Pantoprazole Sodium 40 Mg Tablet.dr 40 Mg PEG BID Donepezil Hcl 5 Mg Tablet 5 Mg PEG BID Reglan (Metoclopramide Hcl) 10 Mg Tablet 5 Mg PO QIDAFTMEAL Atenolol-Chlorthal 50-25 Tb (Atenolol/Chlorthalidone) 1 Each Tablet 1 Tab PEG DAILY Cyproheptadine Hcl 2 Mg/5 Ml Syrup 2 Mg PEG BID Percocet 7.5-325 Mg Tablet (Oxycodone/Acetaminophen) 1 Each Tablet 1 Tab PO QID PRN Proair Hfa Inhaler (Albuterol Sulfate) 8.5 Gm Hfa.aer.ad 2 Puff IH PRN Q4-6HRS FENTANYL 50mcg/hr (Fentanyl) 1 Each Patch.td72 1 Patch TP Q3DAYS Ondansetron Odt (Ondansetron) 4 Mg Tab.rapdis 4 Mg PEG QIDPRN PRN Allergies Allergies: Coded Allergies: aspirin (Verified Allergy, Intermediate, hives, 03/16/17) ROS Review of System drowsy. limited ROS Physical Exam General: No acute distress, Other (yellowish sputum in trach) Lungs: Normal air movement, Other (dec BS, crackles, no wheezes) Heart: S1S2, RRR, no thrills, no rubs, no gallops, no murmurs Cardiovascular: S1, S2 Breasts: Normal, Rt breast nml w/o mass, Lt breast nml w/o mass, Nipples normal Abdomen: Soft, Other (PEg in place) Rectal Exam: not examined PELVIC: Nml ext genitalia Extremities: Other (minimal subQ tissue) Skin: No rashes, No breakdown, No significant lesion Neuro: Reflexes 2+ Vitals Vitals Vital Signs Date Time Temp Pulse Resp B/P (MAP) Pulse Ox O2 Delivery O2 Flow Rate FiO2 06/30/17 12:04 100 Tracheal Collar 3.0 06/30/17 11:10 99.0 86 18 116/63 (80) 99.0 Labs Labs Laboratory Tests Test 06/30/17 12:14 06/30/17 13:25 O2 Saturation 98 % (92-99) Arterial Blood pH 7.42 (7.35-7.45) Arterial Blood pCO2 at Patient Temp 51 mmHg (35-46) Arterial Blood pO2 at Patient Temp 135 mmHg (65-108) Arterial Blood HCO3 32 mmol/L (21-28) Arterial Blood Base Excess 7 mmol/L (-3-3) FiO2 32 White Blood Count 20.2 x10^3/uL (4.0-11.0) Red Blood Count 4.23 x10^6/uL (3.50-5.40) Hemoglobin 10.5 g/dL (12.0-15.5) Hematocrit 34.0 % (36.0-47.0) Mean Corpuscular Volume 80 fL (79-100) Mean Corpuscular Hemoglobin 25 pg (25-35) Mean Corpuscular Hemoglobin Concent 31 g/dL (31-37) Red Cell Distribution Width 18.1 % (11.5-14.5) Platelet Count 387 x10^3/uL (140-400) Neutrophils (%) (Auto) 74 % (31-73) Lymphocytes (%) (Auto) 17 % (24-48) Monocytes (%) (Auto) 8 % (0-9) Eosinophils (%) (Auto) 1 % (0-3) Basophils (%) (Auto) 1 % (0-3) Neutrophils # (Auto) 15.0 x10^3uL (1.8-7.7) Lymphocytes # (Auto) 3.5 x10^3/uL (1.0-4.8) Monocytes # (Auto) 1.6 x10^3/uL (0.0-1.1) Eosinophils # (Auto) 0.1 x10^3/uL (0.0-0.7) Basophils # (Auto) 0.1 x10^3/uL (0.0-0.2) Laboratory Tests Test 06/30/17 12:14 06/30/17 13:25 O2 Saturation 98 % (92-99) Arterial Blood pH 7.42 (7.35-7.45) Arterial Blood pCO2 at Patient Temp 51 mmHg (35-46) Arterial Blood pO2 at Patient Temp 135 mmHg (65-108) Arterial Blood HCO3 32 mmol/L (21-28) Arterial Blood Base Excess 7 mmol/L (-3-3) FiO2 32 White Blood Count 20.2 x10^3/uL (4.0-11.0) Red Blood Count 4.23 x10^6/uL (3.50-5.40) Hemoglobin 10.5 g/dL (12.0-15.5) Hematocrit 34.0 % (36.0-47.0) Mean Corpuscular Volume 80 fL (79-100) Mean Corpuscular Hemoglobin 25 pg (25-35) Mean Corpuscular Hemoglobin Concent 31 g/dL (31-37) Red Cell Distribution Width 18.1 % (11.5-14.5) Platelet Count 387 x10^3/uL (140-400) Neutrophils (%) (Auto) 74 % (31-73) Lymphocytes (%) (Auto) 17 % (24-48) Monocytes (%) (Auto) 8 % (0-9) Eosinophils (%) (Auto) 1 % (0-3) Basophils (%) (Auto) 1 % (0-3) Neutrophils # (Auto) 15.0 x10^3uL (1.8-7.7) Lymphocytes # (Auto) 3.5 x10^3/uL (1.0-4.8) Monocytes # (Auto) 1.6 x10^3/uL (0.0-1.1) Eosinophils # (Auto) 0.1 x10^3/uL (0.0-0.7) Basophils # (Auto) 0.1 x10^3/uL (0.0-0.2) VTE Prophylaxis Ordered VTE Prophylaxis Devices: Yes VTE Pharmacological Prophylaxi: Yes Assessment/Plan Assessment/Plan ASpiration HIGH LIKELIHOOD, PNEUMONITIS VS PNA - pENDING CXR AMS, 2/2 above HAP, GNR ( E tali on sputum cx in may 2017) 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
[2017-06-30 14:02] LABS: CALCIUM 8.2 mg/dL (8.5-10.1); CREATININE 2.1 mg/dL (0.6-1.0); GFR 27.7; POTASSIUM 4.6 mmol/L (3.5-5.1)
[2017-06-30 14:07] LABS: ALBUMIN 2.2 g/dL (3.4-5.0); ALBUMIN/GLOBULIN RATIO 0.4 (1.0-1.7); MAGNESIUM 4.4 mg/dL (1.8-2.4); TOTAL BILIRUBIN 0.2 mg/dL (0.2-1.0); TOTAL PROTEIN 8.1 g/dL (6.4-8.2)
[2017-06-30 14:18] LABS: CREATINE KINASE 36 U/L (26-192)
[2017-06-30 14:20] LABS: % EOS 1 % (0-5)
[2017-06-30 14:22] LABS: ANISOCYTOSIS SLIGHT; HYPOCHROMIA MOD; PLT ESTIMATE ADEQUATE (ADEQUATE); TOXIC GRANULATION SLIGHT; TOXIC VACUOLATION SLIGHT
[2017-06-30 14:39] LABS: CKMB MASS < 0.5 ng/mL (0.0-3.6)
[2017-06-30] MEDS ORDERED: ALBUTEROL SULFATE 2.5 MG/3 ML NEBU. NEB PRN (14:45)
[2017-06-30] MEDS ORDERED: PANTOPRAZOLE 40 MG TABLET.DR. PO SCH (16:30)
[2017-06-30] MEDS: IV NORMAL SALINE 1000ML BAG 1,000 ML IV SCH (16:32)
[2017-06-30 16:51] VITALS: BP 123/83
[2017-06-30] MEDS: METOCLOPRAMIDE 5 MG TABLET. PO SCH ×2 (17:48→23:31)
[2017-06-30] MEDS ORDERED: PIP/TAZO PER PHARMACY MC PRN ×2 (18:00→21:00)
--- NOTE | 2017-06-30 18:22 | PDOC ---
PULMONARY PROGRESS NOTES Vitals Vital Signs Date Time Temp Pulse Resp B/P (MAP) Pulse Ox O2 Delivery O2 Flow Rate FiO2 06/30/17 16:51 98.3 88 17 123/83 (96) 94 Nasal Cannula 4.0 98.3 Lungs: Crackles Cardiovascular: S1, S2 Abdomen: Soft, Non-tender, Other Extremities: No Edema Labs Laboratory Tests Test 06/30/17 12:14 06/30/17 13:25 O2 Saturation 98 % (92-99) Arterial Blood pH 7.42 (7.35-7.45) Arterial Blood pCO2 at Patient Temp 51 mmHg (35-46) Arterial Blood pO2 at Patient Temp 135 mmHg (65-108) Arterial Blood HCO3 32 mmol/L (21-28) Arterial Blood Base Excess 7 mmol/L (-3-3) FiO2 32 White Blood Count 20.2 x10^3/uL (4.0-11.0) Red Blood Count 4.23 x10^6/uL (3.50-5.40) Hemoglobin 10.5 g/dL (12.0-15.5) Hematocrit 34.0 % (36.0-47.0) Mean Corpuscular Volume 80 fL (79-100) Mean Corpuscular Hemoglobin 25 pg (25-35) Mean Corpuscular Hemoglobin Concent 31 g/dL (31-37) Red Cell Distribution Width 18.1 % (11.5-14.5) Platelet Count 387 x10^3/uL (140-400) Neutrophils (%) (Auto) 74 % (31-73) Lymphocytes (%) (Auto) 17 % (24-48) Monocytes (%) (Auto) 8 % (0-9) Eosinophils (%) (Auto) 1 % (0-3) Basophils (%) (Auto) 1 % (0-3) Neutrophils # (Auto) 15.0 x10^3uL (1.8-7.7) Lymphocytes # (Auto) 3.5 x10^3/uL (1.0-4.8) Monocytes # (Auto) 1.6 x10^3/uL (0.0-1.1) Eosinophils # (Auto) 0.1 x10^3/uL (0.0-0.7) Basophils # (Auto) 0.1 x10^3/uL (0.0-0.2) Segmented Neutrophils % 62 % (35-66) Band Neutrophils % 12 % (0-9) Lymphocytes % 20 % (24-48) Monocytes % 4 % (0-10) Eosinophils % 1 % (0-5) Myelocytes % 1 % (0-0) Toxic Granulation Slight Toxic Vacuolation Slight Platelet Estimate Adequate (ADEQUATE) Hypochromasia Mod Anisocytosis Slight Sodium Level 135 mmol/L (136-145) Potassium Level 4.6 mmol/L (3.5-5.1) Chloride Level 96 mmol/L (98-107) Carbon Dioxide Level 35 mmol/L (21-32) Anion Gap 4 (6-14) Blood Urea Nitrogen 68 mg/dL (7-20) Creatinine 2.1 mg/dL (0.6-1.0) Estimated GFR (Cockcroft-Gault) 27.7 BUN/Creatinine Ratio 32 (6-20) Glucose Level 105 mg/dL (70-99) Lactic Acid Level 1.0 mmol/L (0.4-2.0) Calcium Level 8.2 mg/dL (8.5-10.1) Magnesium Level 4.4 mg/dL (1.8-2.4) Total Bilirubin 0.2 mg/dL (0.2-1.0) Aspartate Amino Transf (AST/SGOT) 19 U/L (15-37) Alanine Aminotransferase (ALT/SGPT) 15 U/L (14-59) Alkaline Phosphatase 91 U/L (46-116) Creatine Kinase 36 U/L (26-192) Creatine Kinase MB (Mass) < 0.5 ng/mL (0.0-3.6) Creatine Kinase MB Relative Index 1.4 % (0-4) Troponin I Quantitative 0.026 ng/mL (0.000-0.055) VS-Msr-I-Type Natriuretic Peptide 9203 pg/mL (0-449) Total Protein 8.1 g/dL (6.4-8.2) Albumin 2.2 g/dL (3.4-5.0) Albumin/Globulin Ratio 0.4 (1.0-1.7) Lipase 110 U/L (73-393) Thyroid Stimulating Hormone (TSH) 2.016 uIU/mL (0.358-3.74) Laboratory Tests Test 06/30/17 12:14 06/30/17 13:25 O2 Saturation 98 % (92-99) Arterial Blood pH 7.42 (7.35-7.45) Arterial Blood pCO2 at Patient Temp 51 mmHg (35-46) Arterial Blood pO2 at Patient Temp 135 mmHg (65-108) Arterial Blood HCO3 32 mmol/L (21-28) Arterial Blood Base Excess 7 mmol/L (-3-3) FiO2 32 White Blood Count 20.2 x10^3/uL (4.0-11.0) Red Blood Count 4.23 x10^6/uL (3.50-5.40) Hemoglobin 10.5 g/dL (12.0-15.5) Hematocrit 34.0 % (36.0-47.0) Mean Corpuscular Volume 80 fL (79-100) Mean Corpuscular Hemoglobin 25 pg (25-35) Mean Corpuscular Hemoglobin Concent 31 g/dL (31-37) Red Cell Distribution Width 18.1 % (11.5-14.5) Platelet Count 387 x10^3/uL (140-400) Neutrophils (%) (Auto) 74 % (31-73) Lymphocytes (%) (Auto) 17 % (24-48) Monocytes (%) (Auto) 8 % (0-9) Eosinophils (%) (Auto) 1 % (0-3) Basophils (%) (Auto) 1 % (0-3) Neutrophils # (Auto) 15.0 x10^3uL (1.8-7.7) Lymphocytes # (Auto) 3.5 x10^3/uL (1.0-4.8) Monocytes # (Auto) 1.6 x10^3/uL (0.0-1.1) Eosinophils # (Auto) 0.1 x10^3/uL (0.0-0.7) Basophils # (Auto) 0.1 x10^3/uL (0.0-0.2) Segmented Neutrophils % 62 % (35-66) Band Neutrophils % 12 % (0-9) Lymphocytes % 20 % (24-48) Monocytes % 4 % (0-10) Eosinophils % 1 % (0-5) Myelocytes % 1 % (0-0) Toxic Granulation Slight Toxic Vacuolation Slight Platelet Estimate Adequate (ADEQUATE) Hypochromasia Mod Anisocytosis Slight Sodium Level 135 mmol/L (136-145) Potassium Level 4.6 mmol/L (3.5-5.1) Chloride Level 96 mmol/L (98-107) Carbon Dioxide Level 35 mmol/L (21-32) Anion Gap 4 (6-14) Blood Urea Nitrogen 68 mg/dL (7-20) Creatinine 2.1 mg/dL (0.6-1.0) Estimated GFR (Cockcroft-Gault) 27.7 BUN/Creatinine Ratio 32 (6-20) Glucose Level 105 mg/dL (70-99) Lactic Acid Level 1.0 mmol/L (0.4-2.0) Calcium Level 8.2 mg/dL (8.5-10.1) Magnesium Level 4.4 mg/dL (1.8-2.4) Total Bilirubin 0.2 mg/dL (0.2-1.0) Aspartate Amino Transf (AST/SGOT) 19 U/L (15-37) Alanine Aminotransferase (ALT/SGPT) 15 U/L (14-59) Alkaline Phosphatase 91 U/L (46-116) Creatine Kinase 36 U/L (26-192) Creatine Kinase MB (Mass) < 0.5 ng/mL (0.0-3.6) Creatine Kinase MB Relative Index 1.4 % (0-4) Troponin I Quantitative 0.026 ng/mL (0.000-0.055) TD-Ant-O-Type Natriuretic Peptide 9203 pg/mL (0-449) Total Protein 8.1 g/dL (6.4-8.2) Albumin 2.2 g/dL (3.4-5.0) Albumin/Globulin Ratio 0.4 (1.0-1.7) Lipase 110 U/L (73-393) Thyroid Stimulating Hormone (TSH) 2.016 uIU/mL (0.358-3.74) Medications Active Scripts Medications Dose Route/Sig Max Daily Dose Days Date Category Diovan (Valsartan) 160 Mg Tablet 160 Mg PEG DAILY 03/11/17 Reported Pantoprazole Sodium 40 Mg Tablet.dr 40 Mg PEG BID 03/11/17 Reported Donepezil Hcl 5 Mg Tablet 5 Mg PEG BID 03/11/17 Reported Reglan (Metoclopramide Hcl) 10 Mg Tablet 5 Mg PO QIDAFTMEAL 03/11/17 Reported Atenolol-Chlorthal 50-25 Tb (Atenolol/Chlorthalidone) 1 Each Tablet 1 Tab PEG DAILY 03/11/17 Reported Cyproheptadine Hcl 2 Mg/5 Ml Syrup 2 Mg PEG BID 03/11/17 Reported Percocet 7.5-325 Mg Tablet (Oxycodone/Acetaminophen) 1 Each Tablet 1 Tab PO QID PRN 03/11/17 Reported Proair Hfa Inhaler (Albuterol Sulfate) 8.5 Gm Hfa.aer.ad 2 Puff IH PRN Q4-6HRS 08/16/15 Reported FENTANYL 50mcg/hr (Fentanyl) 1 Each Patch.td72 1 Patch TP Q3DAYS 06/19/14 Reported Ondansetron Odt (Ondansetron) 4 Mg Tab.rapdis 4 Mg PEG QIDPRN PRN 06/19/14 Reported Impression . NOTE DICTATED A/C RF GRAM -/+ PNEUMONIA ZYVOX ANURAG LOO MD Jun 30, 2017 18:22
[2017-06-30] MEDS: PIPERACILLIN/TAZOBACTAM 2.25 GM in IV NORMAL SALINE 50ML 50 ML IV SCH ×2 (18:32→23:46)
[2017-06-30 19:00] VITALS: BP 115/55
[2017-06-30] MEDS: IPRATRPIUM/ALBUTEROL 0.5/2.5MG 3 ML NEBU. NEB SCH (20:02)
[2017-06-30] MEDS ORDERED: FUROSEMIDE 20 MG/2 ML VIAL. IVP ONE (22:00)
[2017-06-30 23:00] VITALS: BP 95/49
[2017-06-30] MEDS: DONEPEZIL HCL 5 MG TABLET. PEG SCH (23:30)
[2017-06-30] MEDS: CYPROHEPTADINE 4 MG TABLET. PEG SCH (23:31)
[2017-06-30] MEDS: SCOPOLAMINE 1.5MG PATCH. TD SCH (23:33)
[2017-07-01 03:00] VITALS: BP 92/69
--- NOTE | 2017-07-01 03:51 | CONS ---
DATE OF CONSULTATION: 06/30/2017 ATTENDING PHYSICIAN: Phylicia Nnia MD. REASON FOR CONSULTATION: The patient seen in pulmonary consultation at the request of Dr. Nina for increasing shortness of breath, abnormal chest x-ray in a patient with a history of lung cancer diagnosed in 2008. The patient is a 77-year-old with chronic trach in place, has a prior history of lung cancer requiring chemotherapy and radiation. She has status post PEG tube and tracheostomy tube, presented with increasing respiratory distress. She had some emesis. There was some concern about the possibility of aspiration. She was noted to have increased oxygen demands from 3 liters now to 5 liters in the Emergency Department. The patient also had decreased saturation down to 51% and decreased level of consciousness. She was admitted. Chest x-ray was obtained, which revealed bilateral pulmonary infiltrates. I reviewed and in comparison to previous films, is worsening volume loss in the bases. There is also bilateral effusions, may be some underlying vascular congestion. No further history is obtained from the patient herself. She is somnolent, but awakens to stimuli. PAST MEDICAL HISTORY: 1. Chronic respiratory failure, status post tracheotomy for laryngeal carcinoma, diagnosed initially in 2008, treated with chemo and radiation. 2. MRSA pneumonia. 3. Hypertension. 4. Status post PEG. CURRENT MEDICATION: List was reviewed. Please see the MRAD. ALLERGIES: ASPIRIN. REVIEW OF SYSTEMS: As indicated above. Otherwise other systems could not be adequately reviewed. SOCIAL HISTORY: There is a remote history of tobacco use. PHYSICAL EXAMINATION: GENERAL: The patient appeared to be in no respiratory distress, currently on trach shield, afebrile. HEENT: Eyes: The sclerae were nonicteric. NECK: Jugular venous distention was not elevated. LUNGS: Bilateral rhonchi, diminished breath sounds in the bases. CARDIOVASCULAR: Regular rate and rhythm with S1 and S2, no S3. ABDOMEN: Soft, nontender, nondistended. EXTREMITIES: No clubbing, cyanosis or edema. NEUROLOGIC: The patient was somnolent, but arousable. A detailed neuro exam was not performed. LABORATORY DATA: Arterial blood gas; pH of 7.42, PaCO2 of 51, pO2 of 135 on 32%. White count was elevated at 20,000. Hemoglobin and hematocrit were noted. Electrolytes were abnormal. BUN was elevated. Creatinine was elevated. BNP was elevated. Albumin was low. IMPRESSION: 1. Acute on chronic respiratory failure, multifactorial. 2. Gram-negative and gram-positive pneumonia. 3. Abnormal x-ray compatible with the above. 4. 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 5. History of Pseudomonas and methicillin-resistant Staphylococcus aureus pneumonia. PLAN: 1. I recommend continue oxygen supplementation. 2. Broad antibiotics will cover both gram negative such as Pseudomonas and gram-positive. 3. Continue tube feeding. 4. I believe palliative care has been involved in the past. I recommend discharge home with hospice once she has improved. I do appreciate the privilege in sharing in the patient's care. ANURAG LOO MD DR: MAGGIE/sena JOB#: [id number] / [id number]
[2017-07-01] MEDS: IV NORMAL SALINE 1000ML BAG 1,000 ML IV SCH (05:47)
[2017-07-01] MEDS: PIPERACILLIN/TAZOBACTAM 2.25 GM in IV NORMAL SALINE 50ML 50 ML IV SCH (05:47)
[2017-07-01 07:00] VITALS: BP 148/67
[2017-07-01] MEDS: IPRATRPIUM/ALBUTEROL 0.5/2.5MG 3 ML NEBU. NEB SCH ×4 (07:36→20:22)
--- NOTE | 2017-07-01 08:52 | PDOC ---
PULMONARY PROGRESS NOTES Subjective PT MORE RESPONSIVE THAN YESTERDAY NOT MORE SOA Vitals Vital Signs Date Time Temp Pulse Resp B/P (MAP) Pulse Ox O2 Delivery O2 Flow Rate FiO2 07/01/17 07:53 90 ap neb 8.0 07/01/17 07:00 97.9 83 18 148/67 (94) 97.9 ROS: No Nausea, No Chest Pain, No Abdominal Pain, No Increase Cough General: Alert Lungs: Wheezing, Crackles Cardiovascular: S1, S2 Abdomen: Soft, Non-tender, Other Neuro Exam: Alert Extremities: No Edema Skin: Warm Labs Laboratory Tests Test 06/30/17 12:14 06/30/17 13:25 O2 Saturation 98 % (92-99) Arterial Blood pH 7.42 (7.35-7.45) Arterial Blood pCO2 at Patient Temp 51 mmHg (35-46) Arterial Blood pO2 at Patient Temp 135 mmHg (65-108) Arterial Blood HCO3 32 mmol/L (21-28) Arterial Blood Base Excess 7 mmol/L (-3-3) FiO2 32 White Blood Count 20.2 x10^3/uL (4.0-11.0) Red Blood Count 4.23 x10^6/uL (3.50-5.40) Hemoglobin 10.5 g/dL (12.0-15.5) Hematocrit 34.0 % (36.0-47.0) Mean Corpuscular Volume 80 fL (79-100) Mean Corpuscular Hemoglobin 25 pg (25-35) Mean Corpuscular Hemoglobin Concent 31 g/dL (31-37) Red Cell Distribution Width 18.1 % (11.5-14.5) Platelet Count 387 x10^3/uL (140-400) Neutrophils (%) (Auto) 74 % (31-73) Lymphocytes (%) (Auto) 17 % (24-48) Monocytes (%) (Auto) 8 % (0-9) Eosinophils (%) (Auto) 1 % (0-3) Basophils (%) (Auto) 1 % (0-3) Neutrophils # (Auto) 15.0 x10^3uL (1.8-7.7) Lymphocytes # (Auto) 3.5 x10^3/uL (1.0-4.8) Monocytes # (Auto) 1.6 x10^3/uL (0.0-1.1) Eosinophils # (Auto) 0.1 x10^3/uL (0.0-0.7) Basophils # (Auto) 0.1 x10^3/uL (0.0-0.2) Segmented Neutrophils % 62 % (35-66) Band Neutrophils % 12 % (0-9) Lymphocytes % 20 % (24-48) Monocytes % 4 % (0-10) Eosinophils % 1 % (0-5) Myelocytes % 1 % (0-0) Toxic Granulation Slight Toxic Vacuolation Slight Platelet Estimate Adequate (ADEQUATE) Hypochromasia Mod Anisocytosis Slight Sodium Level 135 mmol/L (136-145) Potassium Level 4.6 mmol/L (3.5-5.1) Chloride Level 96 mmol/L (98-107) Carbon Dioxide Level 35 mmol/L (21-32) Anion Gap 4 (6-14) Blood Urea Nitrogen 68 mg/dL (7-20) Creatinine 2.1 mg/dL (0.6-1.0) Estimated GFR (Cockcroft-Gault) 27.7 BUN/Creatinine Ratio 32 (6-20) Glucose Level 105 mg/dL (70-99) Lactic Acid Level 1.0 mmol/L (0.4-2.0) Calcium Level 8.2 mg/dL (8.5-10.1) Magnesium Level 4.4 mg/dL (1.8-2.4) Total Bilirubin 0.2 mg/dL (0.2-1.0) Aspartate Amino Transf (AST/SGOT) 19 U/L (15-37) Alanine Aminotransferase (ALT/SGPT) 15 U/L (14-59) Alkaline Phosphatase 91 U/L (46-116) Creatine Kinase 36 U/L (26-192) Creatine Kinase MB (Mass) < 0.5 ng/mL (0.0-3.6) Creatine Kinase MB Relative Index 1.4 % (0-4) Troponin I Quantitative 0.026 ng/mL (0.000-0.055) EU-Wlf-E-Type Natriuretic Peptide 9203 pg/mL (0-449) Total Protein 8.1 g/dL (6.4-8.2) Albumin 2.2 g/dL (3.4-5.0) Albumin/Globulin Ratio 0.4 (1.0-1.7) Lipase 110 U/L (73-393) Thyroid Stimulating Hormone (TSH) 2.016 uIU/mL (0.358-3.74) Laboratory Tests Test 06/30/17 12:14 06/30/17 13:25 O2 Saturation 98 % (92-99) Arterial Blood pH 7.42 (7.35-7.45) Arterial Blood pCO2 at Patient Temp 51 mmHg (35-46) Arterial Blood pO2 at Patient Temp 135 mmHg (65-108) Arterial Blood HCO3 32 mmol/L (21-28) Arterial Blood Base Excess 7 mmol/L (-3-3) FiO2 32 White Blood Count 20.2 x10^3/uL (4.0-11.0) Red Blood Count 4.23 x10^6/uL (3.50-5.40) Hemoglobin 10.5 g/dL (12.0-15.5) Hematocrit 34.0 % (36.0-47.0) Mean Corpuscular Volume 80 fL (79-100) Mean Corpuscular Hemoglobin 25 pg (25-35) Mean Corpuscular Hemoglobin Concent 31 g/dL (31-37) Red Cell Distribution Width 18.1 % (11.5-14.5) Platelet Count 387 x10^3/uL (140-400) Neutrophils (%) (Auto) 74 % (31-73) Lymphocytes (%) (Auto) 17 % (24-48) Monocytes (%) (Auto) 8 % (0-9) Eosinophils (%) (Auto) 1 % (0-3) Basophils (%) (Auto) 1 % (0-3) Neutrophils # (Auto) 15.0 x10^3uL (1.8-7.7) Lymphocytes # (Auto) 3.5 x10^3/uL (1.0-4.8) Monocytes # (Auto) 1.6 x10^3/uL (0.0-1.1) Eosinophils # (Auto) 0.1 x10^3/uL (0.0-0.7) Basophils # (Auto) 0.1 x10^3/uL (0.0-0.2) Segmented Neutrophils % 62 % (35-66) Band Neutrophils % 12 % (0-9) Lymphocytes % 20 % (24-48) Monocytes % 4 % (0-10) Eosinophils % 1 % (0-5) Myelocytes % 1 % (0-0) Toxic Granulation Slight Toxic Vacuolation Slight Platelet Estimate Adequate (ADEQUATE) Hypochromasia Mod Anisocytosis Slight Sodium Level 135 mmol/L (136-145) Potassium Level 4.6 mmol/L (3.5-5.1) Chloride Level 96 mmol/L (98-107) Carbon Dioxide Level 35 mmol/L (21-32) Anion Gap 4 (6-14) Blood Urea Nitrogen 68 mg/dL (7-20) Creatinine 2.1 mg/dL (0.6-1.0) Estimated GFR (Cockcroft-Gault) 27.7 BUN/Creatinine Ratio 32 (6-20) Glucose Level 105 mg/dL (70-99) Lactic Acid Level 1.0 mmol/L (0.4-2.0) Calcium Level 8.2 mg/dL (8.5-10.1) Magnesium Level 4.4 mg/dL (1.8-2.4) Total Bilirubin 0.2 mg/dL (0.2-1.0) Aspartate Amino Transf (AST/SGOT) 19 U/L (15-37) Alanine Aminotransferase (ALT/SGPT) 15 U/L (14-59) Alkaline Phosphatase 91 U/L (46-116) Creatine Kinase 36 U/L (26-192) Creatine Kinase MB (Mass) < 0.5 ng/mL (0.0-3.6) Creatine Kinase MB Relative Index 1.4 % (0-4) Troponin I Quantitative 0.026 ng/mL (0.000-0.055) AD-Rkb-F-Type Natriuretic Peptide 9203 pg/mL (0-449) Total Protein 8.1 g/dL (6.4-8.2) Albumin 2.2 g/dL (3.4-5.0) Albumin/Globulin Ratio 0.4 (1.0-1.7) Lipase 110 U/L (73-393) Thyroid Stimulating Hormone (TSH) 2.016 uIU/mL (0.358-3.74) Medications Active Scripts Medications Dose Route/Sig Max Daily Dose Days Date Category Diovan (Valsartan) 160 Mg Tablet 160 Mg PEG DAILY 03/11/17 Reported Pantoprazole Sodium 40 Mg Tablet.dr 40 Mg PEG BID 03/11/17 Reported Donepezil Hcl 5 Mg Tablet 5 Mg PEG BID 03/11/17 Reported Reglan (Metoclopramide Hcl) 10 Mg Tablet 5 Mg PO QIDAFTMEAL 03/11/17 Reported Atenolol-Chlorthal 50-25 Tb (Atenolol/Chlorthalidone) 1 Each Tablet 1 Tab PEG DAILY 03/11/17 Reported Cyproheptadine Hcl 2 Mg/5 Ml Syrup 2 Mg PEG BID 03/11/17 Reported Percocet 7.5-325 Mg Tablet (Oxycodone/Acetaminophen) 1 Each Tablet 1 Tab PO QID PRN 03/11/17 Reported Proair Hfa Inhaler (Albuterol Sulfate) 8.5 Gm Hfa.aer.ad 2 Puff IH PRN Q4-6HRS 08/16/15 Reported FENTANYL 50mcg/hr (Fentanyl) 1 Each Patch.td72 1 Patch TP Q3DAYS 06/19/14 Reported Ondansetron Odt (Ondansetron) 4 Mg Tab.rapdis 4 Mg PEG QIDPRN PRN 06/19/14 Reported Impression . 1. Acute on chronic respiratory failure, multifactorial. 2. Gram-negative and gram-positive pneumonia. 3. Abnormal x-ray compatible with the above. 4. 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 5. History of Pseudomonas and methicillin-resistant Staphylococcus aureus pneumonia. 6. Possible Aspiration PN Plan . d/w DNR WITH PT SHE WISHES TO BE RESUSCITATED 1. I recommend continue oxygen supplementation. 2. Broad antibiotics will cover both gram negative such as Pseudomonas and gram-positive. 3. Continue tube feeding. ANURAG LOO MD Jul 01, 2017 08:52
[2017-07-01] MEDS: DONEPEZIL HCL 5 MG TABLET. PEG SCH ×2 (09:01→21:00)
[2017-07-01] MEDS: METOCLOPRAMIDE 5 MG TABLET. PO SCH ×4 (09:01→21:01)
[2017-07-01] MEDS: CYPROHEPTADINE 4 MG TABLET. PEG SCH ×2 (09:02→21:01)
[2017-07-01] MEDS: LOSARTAN POTASSIUM 50 MG TABLET. PO SCH (09:02)
[2017-07-01] MEDS: LANSOPRAZOLE 30 MG TAB.RAP.DR FT SCH ×2 (09:02→17:20)
[2017-07-01] MEDS: oxyCODONE/APAP 7.5/325 1 TAB TABLET PO PRN ×3 (09:03→21:02)
[2017-07-01] MEDS: ATENOLOL 50 MG TABLET. PEG SCH (09:03)
[2017-07-01] MEDS: fentaNYL 50MCG/HR PATCH 1 PATCH PATCH.TD72 TD SCH (09:04)
--- NOTE | 2017-07-01 09:27 | PDOC ---
Infectious Disease Note ROS ROS Vital Sign Vital Signs Vital Signs Date Time Temp Pulse Resp B/P (MAP) Pulse Ox O2 Delivery O2 Flow Rate FiO2 07/01/17 07:53 90 ap neb 8.0 07/01/17 07:00 97.9 83 18 148/67 (94) 97.9 Physical Exam PHYSICAL EXAM Labs Lab Laboratory Tests Test 06/30/17 12:14 06/30/17 13:25 O2 Saturation 98 % (92-99) Arterial Blood pH 7.42 (7.35-7.45) Arterial Blood pCO2 at Patient Temp 51 mmHg (35-46) Arterial Blood pO2 at Patient Temp 135 mmHg (65-108) Arterial Blood HCO3 32 mmol/L (21-28) Arterial Blood Base Excess 7 mmol/L (-3-3) FiO2 32 White Blood Count 20.2 x10^3/uL (4.0-11.0) Red Blood Count 4.23 x10^6/uL (3.50-5.40) Hemoglobin 10.5 g/dL (12.0-15.5) Hematocrit 34.0 % (36.0-47.0) Mean Corpuscular Volume 80 fL (79-100) Mean Corpuscular Hemoglobin 25 pg (25-35) Mean Corpuscular Hemoglobin Concent 31 g/dL (31-37) Red Cell Distribution Width 18.1 % (11.5-14.5) Platelet Count 387 x10^3/uL (140-400) Neutrophils (%) (Auto) 74 % (31-73) Lymphocytes (%) (Auto) 17 % (24-48) Monocytes (%) (Auto) 8 % (0-9) Eosinophils (%) (Auto) 1 % (0-3) Basophils (%) (Auto) 1 % (0-3) Neutrophils # (Auto) 15.0 x10^3uL (1.8-7.7) Lymphocytes # (Auto) 3.5 x10^3/uL (1.0-4.8) Monocytes # (Auto) 1.6 x10^3/uL (0.0-1.1) Eosinophils # (Auto) 0.1 x10^3/uL (0.0-0.7) Basophils # (Auto) 0.1 x10^3/uL (0.0-0.2) Segmented Neutrophils % 62 % (35-66) Band Neutrophils % 12 % (0-9) Lymphocytes % 20 % (24-48) Monocytes % 4 % (0-10) Eosinophils % 1 % (0-5) Myelocytes % 1 % (0-0) Toxic Granulation Slight Toxic Vacuolation Slight Platelet Estimate Adequate (ADEQUATE) Hypochromasia Mod Anisocytosis Slight Sodium Level 135 mmol/L (136-145) Potassium Level 4.6 mmol/L (3.5-5.1) Chloride Level 96 mmol/L (98-107) Carbon Dioxide Level 35 mmol/L (21-32) Anion Gap 4 (6-14) Blood Urea Nitrogen 68 mg/dL (7-20) Creatinine 2.1 mg/dL (0.6-1.0) Estimated GFR (Cockcroft-Gault) 27.7 BUN/Creatinine Ratio 32 (6-20) Glucose Level 105 mg/dL (70-99) Lactic Acid Level 1.0 mmol/L (0.4-2.0) Calcium Level 8.2 mg/dL (8.5-10.1) Magnesium Level 4.4 mg/dL (1.8-2.4) Total Bilirubin 0.2 mg/dL (0.2-1.0) Aspartate Amino Transf (AST/SGOT) 19 U/L (15-37) Alanine Aminotransferase (ALT/SGPT) 15 U/L (14-59) Alkaline Phosphatase 91 U/L (46-116) Creatine Kinase 36 U/L (26-192) Creatine Kinase MB (Mass) < 0.5 ng/mL (0.0-3.6) Creatine Kinase MB Relative Index 1.4 % (0-4) Troponin I Quantitative 0.026 ng/mL (0.000-0.055) WO-Bap-G-Type Natriuretic Peptide 9203 pg/mL (0-449) Total Protein 8.1 g/dL (6.4-8.2) Albumin 2.2 g/dL (3.4-5.0) Albumin/Globulin Ratio 0.4 (1.0-1.7) Lipase 110 U/L (73-393) Thyroid Stimulating Hormone (TSH) 2.016 uIU/mL (0.358-3.74) Objective Assessment Acute resp failure ? aspiration Leukocytosis SANCHEZ Recent Ecoli as mentions above Plan Plan of Care Agree with Zyvox I added zosyn yesterday after informed of aspiration change to meropenem ( received Rocephin 06/30) given worsening oxygenation Labs now F/u labs and cults in am Thank you # [id number] GWEN MCQUEEN MD Jul 01, 2017 09:27
--- NOTE | 2017-07-01 10:11 | PDOC ---
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, has trach Dysphagia , PEG htn COPD h/o cdiff h/o MRSA h/O pseudomonas PNA SANCHEZ, vasomotor mild malnutrition Sepsis with HAP History of Present Illness History of Present Illness Wakes to my voice then falls asleep\ WBC better NO fevers ON IV zyvox and IV meropnem by pulmo and ID, respectively CXR some effusion and edema On IVF at [id number] - ER bridge Creat 2-3 PLAN COnsult renal - Ji meyers Dr Let IVF ER bridge fall off Lytes tmr PT/OT DVt ppx Supportive care Pt HERSELF WANTS FULL CODE and AGGRESSIVE CARE Vitals Vitals Vital Signs Date Time Temp Pulse Resp B/P (MAP) Pulse Ox O2 Delivery O2 Flow Rate FiO2 07/01/17 09:04 Tracheal Collar 07/01/17 09:03 83 148/67 07/01/17 09:03 3.0 07/01/17 07:53 90 07/01/17 07:00 97.9 18 97.9 Physical Exam General: Cooperative, No acute distress, Other (yellowish sputum in trach) Heart: Regular rate Lungs: Crackles Abdomen: Soft, Other (PEg in place) Extremities: Other (minimal subQ tissue) Skin: No rashes, No breakdown, No significant lesion Labs LABS Laboratory Tests Test 06/30/17 12:14 06/30/17 13:25 O2 Saturation 98 % (92-99) Arterial Blood pH 7.42 (7.35-7.45) Arterial Blood pCO2 at Patient Temp 51 mmHg (35-46) Arterial Blood pO2 at Patient Temp 135 mmHg (65-108) Arterial Blood HCO3 32 mmol/L (21-28) Arterial Blood Base Excess 7 mmol/L (-3-3) FiO2 32 White Blood Count 20.2 x10^3/uL (4.0-11.0) Red Blood Count 4.23 x10^6/uL (3.50-5.40) Hemoglobin 10.5 g/dL (12.0-15.5) Hematocrit 34.0 % (36.0-47.0) Mean Corpuscular Volume 80 fL (79-100) Mean Corpuscular Hemoglobin 25 pg (25-35) Mean Corpuscular Hemoglobin Concent 31 g/dL (31-37) Red Cell Distribution Width 18.1 % (11.5-14.5) Platelet Count 387 x10^3/uL (140-400) Neutrophils (%) (Auto) 74 % (31-73) Lymphocytes (%) (Auto) 17 % (24-48) Monocytes (%) (Auto) 8 % (0-9) Eosinophils (%) (Auto) 1 % (0-3) Basophils (%) (Auto) 1 % (0-3) Neutrophils # (Auto) 15.0 x10^3uL (1.8-7.7) Lymphocytes # (Auto) 3.5 x10^3/uL (1.0-4.8) Monocytes # (Auto) 1.6 x10^3/uL (0.0-1.1) Eosinophils # (Auto) 0.1 x10^3/uL (0.0-0.7) Basophils # (Auto) 0.1 x10^3/uL (0.0-0.2) Segmented Neutrophils % 62 % (35-66) Band Neutrophils % 12 % (0-9) Lymphocytes % 20 % (24-48) Monocytes % 4 % (0-10) Eosinophils % 1 % (0-5) Myelocytes % 1 % (0-0) Toxic Granulation Slight Toxic Vacuolation Slight Platelet Estimate Adequate (ADEQUATE) Hypochromasia Mod Anisocytosis Slight Sodium Level 135 mmol/L (136-145) Potassium Level 4.6 mmol/L (3.5-5.1) Chloride Level 96 mmol/L (98-107) Carbon Dioxide Level 35 mmol/L (21-32) Anion Gap 4 (6-14) Blood Urea Nitrogen 68 mg/dL (7-20) Creatinine 2.1 mg/dL (0.6-1.0) Estimated GFR (Cockcroft-Gault) 27.7 BUN/Creatinine Ratio 32 (6-20) Glucose Level 105 mg/dL (70-99) Lactic Acid Level 1.0 mmol/L (0.4-2.0) Calcium Level 8.2 mg/dL (8.5-10.1) Magnesium Level 4.4 mg/dL (1.8-2.4) Total Bilirubin 0.2 mg/dL (0.2-1.0) Aspartate Amino Transf (AST/SGOT) 19 U/L (15-37) Alanine Aminotransferase (ALT/SGPT) 15 U/L (14-59) Alkaline Phosphatase 91 U/L (46-116) Creatine Kinase 36 U/L (26-192) Creatine Kinase MB (Mass) < 0.5 ng/mL (0.0-3.6) Creatine Kinase MB Relative Index 1.4 % (0-4) Troponin I Quantitative 0.026 ng/mL (0.000-0.055) MB-Hcp-X-Type Natriuretic Peptide 9203 pg/mL (0-449) Total Protein 8.1 g/dL (6.4-8.2) Albumin 2.2 g/dL (3.4-5.0) Albumin/Globulin Ratio 0.4 (1.0-1.7) Lipase 110 U/L (73-393) Thyroid Stimulating Hormone (TSH) 2.016 uIU/mL (0.358-3.74) Review of Systems Review of Systems weak, no cp, abd pain, emesis, no edema Assessment and Plan Assessmemt and Plan Problems Medical Problems: (1) CAP (community acquired pneumonia) Status: Acute (2) Dyspnea Status: Acute (3) Unspecified protein-calorie malnutrition Status: Acute Problems: Comment Review of Relevant I have reviewed the following items miko (where applicable) has been applied. Labs Laboratory Tests Test 06/30/17 12:14 06/30/17 13:25 O2 Saturation 98 % (92-99) Arterial Blood pH 7.42 (7.35-7.45) Arterial Blood pCO2 at Patient Temp 51 mmHg (35-46) Arterial Blood pO2 at Patient Temp 135 mmHg (65-108) Arterial Blood HCO3 32 mmol/L (21-28) Arterial Blood Base Excess 7 mmol/L (-3-3) FiO2 32 White Blood Count 20.2 x10^3/uL (4.0-11.0) Red Blood Count 4.23 x10^6/uL (3.50-5.40) Hemoglobin 10.5 g/dL (12.0-15.5) Hematocrit 34.0 % (36.0-47.0) Mean Corpuscular Volume 80 fL (79-100) Mean Corpuscular Hemoglobin 25 pg (25-35) Mean Corpuscular Hemoglobin Concent 31 g/dL (31-37) Red Cell Distribution Width 18.1 % (11.5-14.5) Platelet Count 387 x10^3/uL (140-400) Neutrophils (%) (Auto) 74 % (31-73) Lymphocytes (%) (Auto) 17 % (24-48) Monocytes (%) (Auto) 8 % (0-9) Eosinophils (%) (Auto) 1 % (0-3) Basophils (%) (Auto) 1 % (0-3) Neutrophils # (Auto) 15.0 x10^3uL (1.8-7.7) Lymphocytes # (Auto) 3.5 x10^3/uL (1.0-4.8) Monocytes # (Auto) 1.6 x10^3/uL (0.0-1.1) Eosinophils # (Auto) 0.1 x10^3/uL (0.0-0.7) Basophils # (Auto) 0.1 x10^3/uL (0.0-0.2) Segmented Neutrophils % 62 % (35-66) Band Neutrophils % 12 % (0-9) Lymphocytes % 20 % (24-48) Monocytes % 4 % (0-10) Eosinophils % 1 % (0-5) Myelocytes % 1 % (0-0) Toxic Granulation Slight Toxic Vacuolation Slight Platelet Estimate Adequate (ADEQUATE) Hypochromasia Mod Anisocytosis Slight Sodium Level 135 mmol/L (136-145) Potassium Level 4.6 mmol/L (3.5-5.1) Chloride Level 96 mmol/L (98-107) Carbon Dioxide Level 35 mmol/L (21-32) Anion Gap 4 (6-14) Blood Urea Nitrogen 68 mg/dL (7-20) Creatinine 2.1 mg/dL (0.6-1.0) Estimated GFR (Cockcroft-Gault) 27.7 BUN/Creatinine Ratio 32 (6-20) Glucose Level 105 mg/dL (70-99) Lactic Acid Level 1.0 mmol/L (0.4-2.0) Calcium Level 8.2 mg/dL (8.5-10.1) Magnesium Level 4.4 mg/dL (1.8-2.4) Total Bilirubin 0.2 mg/dL (0.2-1.0) Aspartate Amino Transf (AST/SGOT) 19 U/L (15-37) Alanine Aminotransferase (ALT/SGPT) 15 U/L (14-59) Alkaline Phosphatase 91 U/L (46-116) Creatine Kinase 36 U/L (26-192) Creatine Kinase MB (Mass) < 0.5 ng/mL (0.0-3.6) Creatine Kinase MB Relative Index 1.4 % (0-4) Troponin I Quantitative 0.026 ng/mL (0.000-0.055) PP-Urt-W-Type Natriuretic Peptide 9203 pg/mL (0-449) Total Protein 8.1 g/dL (6.4-8.2) Albumin 2.2 g/dL (3.4-5.0) Albumin/Globulin Ratio 0.4 (1.0-1.7) Lipase 110 U/L (73-393) Thyroid Stimulating Hormone (TSH) 2.016 uIU/mL (0.358-3.74) Laboratory Tests Test 06/30/17 12:14 06/30/17 13:25 O2 Saturation 98 % (92-99) Arterial Blood pH 7.42 (7.35-7.45) Arterial Blood pCO2 at Patient Temp 51 mmHg (35-46) Arterial Blood pO2 at Patient Temp 135 mmHg (65-108) Arterial Blood HCO3 32 mmol/L (21-28) Arterial Blood Base Excess 7 mmol/L (-3-3) FiO2 32 White Blood Count 20.2 x10^3/uL (4.0-11.0) Red Blood Count 4.23 x10^6/uL (3.50-5.40) Hemoglobin 10.5 g/dL (12.0-15.5) Hematocrit 34.0 % (36.0-47.0) Mean Corpuscular Volume 80 fL (79-100) Mean Corpuscular Hemoglobin 25 pg (25-35) Mean Corpuscular Hemoglobin Concent 31 g/dL (31-37) Red Cell Distribution Width 18.1 % (11.5-14.5) Platelet Count 387 x10^3/uL (140-400) Neutrophils (%) (Auto) 74 % (31-73) Lymphocytes (%) (Auto) 17 % (24-48) Monocytes (%) (Auto) 8 % (0-9) Eosinophils (%) (Auto) 1 % (0-3) Basophils (%) (Auto) 1 % (0-3) Neutrophils # (Auto) 15.0 x10^3uL (1.8-7.7) Lymphocytes # (Auto) 3.5 x10^3/uL (1.0-4.8) Monocytes # (Auto) 1.6 x10^3/uL (0.0-1.1) Eosinophils # (Auto) 0.1 x10^3/uL (0.0-0.7) Basophils # (Auto) 0.1 x10^3/uL (0.0-0.2) Segmented Neutrophils % 62 % (35-66) Band Neutrophils % 12 % (0-9) Lymphocytes % 20 % (24-48) Monocytes % 4 % (0-10) Eosinophils % 1 % (0-5) Myelocytes % 1 % (0-0) Toxic Granulation Slight Toxic Vacuolation Slight Platelet Estimate Adequate (ADEQUATE) Hypochromasia Mod Anisocytosis Slight Sodium Level 135 mmol/L (136-145) Potassium Level 4.6 mmol/L (3.5-5.1) Chloride Level 96 mmol/L (98-107) Carbon Dioxide Level 35 mmol/L (21-32) Anion Gap 4 (6-14) Blood Urea Nitrogen 68 mg/dL (7-20) Creatinine 2.1 mg/dL (0.6-1.0) Estimated GFR (Cockcroft-Gault) 27.7 BUN/Creatinine Ratio 32 (6-20) Glucose Level 105 mg/dL (70-99) Lactic Acid Level 1.0 mmol/L (0.4-2.0) Calcium Level 8.2 mg/dL (8.5-10.1) Magnesium Level 4.4 mg/dL (1.8-2.4) Total Bilirubin 0.2 mg/dL (0.2-1.0) Aspartate Amino Transf (AST/SGOT) 19 U/L (15-37) Alanine Aminotransferase (ALT/SGPT) 15 U/L (14-59) Alkaline Phosphatase 91 U/L (46-116) Creatine Kinase 36 U/L (26-192) Creatine Kinase MB (Mass) < 0.5 ng/mL (0.0-3.6) Creatine Kinase MB Relative Index 1.4 % (0-4) Troponin I Quantitative 0.026 ng/mL (0.000-0.055) DP-Stk-O-Type Natriuretic Peptide 9203 pg/mL (0-449) Total Protein 8.1 g/dL (6.4-8.2) Albumin 2.2 g/dL (3.4-5.0) Albumin/Globulin Ratio 0.4 (1.0-1.7) Lipase 110 U/L (73-393) Thyroid Stimulating Hormone (TSH) 2.016 uIU/mL (0.358-3.74) Medications Current Medications Sodium Chloride 1,000 ml @ 1,000 mls/hr Q1H IV Last administered on 12:18; Start 06/30/17 at 11:53; Stop 06/30/17 at 12:52; Status DC Sodium Chloride (Normal Saline Flush) 10 ml QSHIFT PRN IV AFTER MEDS AND BLOOD DRAWS; Start 06/30/17 at 12:00 Sodium Chloride (NORMAL SALINE FLUSH for STERILE FIELD) 10 ml STK-MED ONCE .ROUTE ; Start 06/30/17 at 12:44; Stop 06/30/17 at 12:45; Status DC Ceftriaxone Sodium 1 gm/ Dextrose 50 ml @ 100 mls/hr Q24H IV ; Start 07/01/17 at 14:00; Stop 07/01/17 at 14:00; Status DC Azithromycin 500 mg/Sodium Chloride 250 ml @ 250 mls/hr 1X ONCE IV ; Start at 13:15; Stop 06/30/17 at 14:14; Status UNV Ceftriaxone Sodium 50 ml @ 100 mls/hr 1X ONCE IV Last administered on 13:50; Start 06/30/17 at 13:30; Stop 06/30/17 at 13:59; Status DC Azithromycin 250 ml @ 250 mls/hr 1X ONCE IV Last administered on 06/30/17t 14:25; Start 06/30/17 at 13:30; Stop 06/30/17 at 14:29; Status DC Ondansetron HCl (Zofran) 4 mg PRN Q8HRS PRN IV NAUSEA/VOMITING; Start at 13:45; Stop 06/30/17 at 14:30; Status DC Sodium Chloride 1,000 ml @ 75 mls/hr [id number] IV Last administered on 05:47; Start 06/30/17 at 14:00; Stop 07/01/17 at 13:59 Prochlorperazine Edisylate (Compazine) 10 mg PRN Q6HRS PRN IV NAUSEA/VOMITING; Start 06/30/17 at 14:15 Ondansetron HCl (Zofran) 4 mg PRN Q6HRS PRN IV NAUSEA/VOMITING; Start at 14:15 Donepezil HCl (Aricept) 5 mg BID PEG Last administered on 07/01/17 09:01; Start 06/30/17 at 21:00 Fentanyl (Duragesic 50mcg/ Hr Patch) 1 patch Q3DAYS TD ; Start 07/03/17 at 09: 00; Stop 07/03/17 at 09:00; Status DC Metoclopramide HCl (Reglan) 5 mg QIDAFTMEAL PO Last administered on 07/01/17 09:01; Start 06/30/17 at 18:00 Ondansetron HCl (Zofran Odt) 4 mg QIDPRN PRN PEG NAUSEA/VOMITING; Start at 14:15 Oxycodone/ Acetaminophen (Percocet 7.5/ 325) 1 tab PRN QID PRN PO PAIN Last administered on 07/01/17 09:03; Start 06/30/17 at 14:15 Pantoprazole Sodium (Protonix) 40 mg BIDAC PO ; Start 06/30/17 at 16:30; Stop 06/30/17 at 16:49; Status DC Albuterol Sulfate (Ventolin Neb Soln) 2.5 mg PRN Q4HRS PRN NEB SHORTNESS OF BREATH Last administered on 06/30/17 16:17; Start 06/30/17 at 14:45 Atenolol (Tenormin) 50 mg DAILY PEG Last administered on 07/01/17 09:03; Start 07/01/17 at 09:00 Cyproheptadine HCl (Periactin) 2 mg BID PEG Last administered on 07/01/17 09: 02; Start 06/30/17 at 21:00 Losartan Potassium (Cozaar) 100 mg DAILY PO Last administered on 07/01/17 09: 02; Start 07/01/17 at 09:00 Chlorthalidone (Thalitone) 25 mg DAILY PEG ; Start 07/01/17 at 09:00 Lansoprazole (Prevacid) 30 mg BIDBFRMEAL FT Last administered on 07/01/17 09: 02; Start 07/01/17 at 07:30 Piperacillin Sod/ Tazobactam Sod (Zosyn Per Pharmacy) 1 each PRN DAILY PRN MC SEE COMMENTS; Start 06/30/17 at 21:00; Stop 06/30/17 at 21:00; Status DC Piperacillin Sod/ Tazobactam Sod (Zosyn Per Pharmacy) 1 each PRN DAILY PRN MC SEE COMMENTS; Start 06/30/17 at 18:00; Stop 07/01/17 at 09:25; Status DC Piperacillin Sod/ Tazobactam Sod 2.25 gm/Sodium Chloride 50 ml @ 100 mls/hr Q6HRS IV Last administered on 07/01/17 05:47; Start 06/30/17 at 18:30; Stop 07/01/17 at 09:25; Status DC Linezolid 300 ml @ 300 mls/hr Q12HR IV Last administered on 07/01/17 09:01; Start 06/30/17 at 19:30 Albuterol/ Ipratropium (Duoneb) 3 ml RTQID NEB Last administered on 07/01/17 07:36; Start 06/30/17 at 20:00 Scopolamine (Transderm-Scop) 1 patch Q3DAYS TD Last administered on 06/30/17 23:33; Start 06/30/17 at 22:00 Furosemide (Lasix) 20 mg 1X ONCE IVP Last administered on 06/30/17 23:25; Start 06/30/17 at 22:00; Stop 06/30/17 at 22:01; Status DC Fentanyl (Duragesic 50mcg/ Hr Patch) 1 patch Q3DAYS TD Last administered on 09:04; Start 07/01/17 at 09:00 Meropenem 1 gm/ Sodium Chloride 100 ml @ 200 mls/hr Q12HR IV ; Start 07/01/17 at 10:00 Active Scripts Active Reported Diovan (Valsartan) 160 Mg Tablet 160 Mg PEG DAILY Pantoprazole Sodium 40 Mg Tablet.dr 40 Mg PEG BID Donepezil Hcl 5 Mg Tablet 5 Mg PEG BID Reglan (Metoclopramide Hcl) 10 Mg Tablet 5 Mg PO QIDAFTMEAL Atenolol-Chlorthal 50-25 Tb (Atenolol/Chlorthalidone) 1 Each Tablet 1 Tab PEG DAILY Cyproheptadine Hcl 2 Mg/5 Ml Syrup 2 Mg PEG BID Percocet 7.5-325 Mg Tablet (Oxycodone/Acetaminophen) 1 Each Tablet 1 Tab PO QID PRN Proair Hfa Inhaler (Albuterol Sulfate) 8.5 Gm Hfa.aer.ad 2 Puff IH PRN Q4-6HRS FENTANYL 50mcg/hr (Fentanyl) 1 Each Patch.td72 1 Patch TP Q3DAYS Ondansetron Odt (Ondansetron) 4 Mg Tab.rapdis 4 Mg PEG QIDPRN PRN Vitals/I & O Vital Sign - Last 24 Hours 06/30/17 06/30/17 06/30/17 06/30/17 11:10 11:44 12:04 12:44 Temp 99.0 99.0 Pulse 86 80 78 Resp 18 23 23 B/P (MAP) 116/63 (80) 104/62 (76) 98/61 (73) Pulse Ox 99 100 100 100 O2 Delivery Tracheal Collar Tracheal Collar Tracheal Collar Tracheal Collar O2 Flow Rate 3.0 3.0 3.0 3.0 06/30/17 06/30/17 06/30/17 06/30/17 13:44 14:44 15:15 15:15 Pulse 78 76 78 Resp 23 18 20 B/P (MAP) 92/55 (67) 101/65 (77) 120/67 (84) Pulse Ox 100 100 100 O2 Delivery Tracheal Collar Tracheal Collar Tracheal Collar Tracheal Collar O2 Flow Rate 3.0 3.0 3.0 2.0 06/30/17 06/30/17 06/30/17 06/30/17 16:20 16:51 18:04 19:00 Temp 98.3 97.9 98.3 97.9 Pulse 88 89 Resp 17 16 B/P (MAP) 123/83 (96) 115/55 (75) Pulse Ox 85 94 77 O2 Delivery Tracheal Collar Nasal Cannula Trach Collar Tracheal Collar O2 Flow Rate 5.0 4.0 4.0 06/30/17 06/30/17 06/30/17 07/01/17 20:00 20:06 23:00 00:11 Temp 97.6 97.6 Pulse 77 Resp 18 B/P (MAP) 95/49 (64) Pulse Ox 70 100 94 O2 Delivery Trach Collar Tracheal Collar Tracheal Collar ap neb O2 Flow Rate 3.0 5.0 4.0 8.0 07/01/17 07/01/17 07/01/17 07/01/17 01:43 03:00 05:44 07:00 Temp 97.6 97.9 97.6 97.9 Pulse 77 83 Resp 18 18 B/P (MAP) 92/69 (77) 148/67 (94) Pulse Ox 94 94 92 93 O2 Delivery ap neb Tracheal Collar ap neb Tracheal Collar O2 Flow Rate 8.0 4.0 8.0 4.0 07/01/17 07/01/17 07/01/17 07/01/17 07:53 09:02 09:03 09:03 Pulse 83 83 B/P (MAP) 148/67 148/67 Pulse Ox 90 O2 Delivery ap neb Tracheal Collar O2 Flow Rate 8.0 3.0 07/01/17 09:04 O2 Delivery Tracheal Collar HEAVEN KRAUS MD Jul 01, 2017 10:11
[2017-07-01] MEDS: CHLORTHALIDONE 25 MG TABLET. PEG SCH (10:28)
[2017-07-01] MEDS: MEROPENEM 1 GM in IV NORMAL SALINE 100ML 100 ML IV SCH ×2 (10:29→20:59)
[2017-07-01 10:33] LABS: BASO # 0.1 x10^3/uL (0.0-0.2); BASO % 0 % (0-3); EOS % 2 % (0-3); HEMOGLOBIN 10.6 g/dL (12.0-15.5); LYMPH # 1.9 x10^3/uL (1.0-4.8); LYMPH % 14 % (24-48); MEAN CORPUSCULAR HEMOGLOBIN 25 pg (25-35); MEAN CORPUSCULAR HGB CONC 31 g/dL (31-37); MEAN CORPUSCULAR VOLUME 80 fL (79-100); MONO % 9 % (0-9); NEUT % 76 % (31-73); PLATELET COUNT 364 x10^3/uL (140-400); RED BLOOD COUNT 4.28 x10^6/uL (3.50-5.40); RED CELL DISTRIBUTION WIDTH 18.2 % (11.5-14.5)
[2017-07-01 10:39] LABS: CALCIUM 8.5 mg/dL (8.5-10.1); CREATININE 1.5 mg/dL (0.6-1.0); GFR 40.9; POTASSIUM 3.7 mmol/L (3.5-5.1)
[2017-07-01 11:00] VITALS: BP 139/63
--- NOTE | 2017-07-01 13:57 | PDOC2 ---
CONSULT Date of Consult Date of Consult DATE: 07/01/17 TIME: 13:51 Reason for Consult Reason for Consult: SANCHEZ Referring Physician Referring Physician: Dr Nina Identification/Chief Complaint Chief Complaint ^ed O2 Needs Problems: Source Source: Caregiver History of Present Illness Reason for Visit: as dictated Past Medical History Cardiovascular: HTN Pulmonary: COPD, Pneumonia, Other CENTRAL NERVOUS SYSTEM: Other GI: Other Heme/Onc: Anemia NOS, Cancer Hepatobiliary: No pertinent hx Psych: No pertinent hx Musculoskeletal: Osteoarthritis Rheumatologic: No pertinent hx Infectious disease: No pertinent hx Renal/: No pertinent hx Endocrine: No pertinent hx Past Surgical History Past Surgical History: Cataract Removal, Other Family History Family History: Heart Disease Social History No ALCOHOL: none Drugs: None Lives: with Family Domestic Violence: Neg Current Problem List Problem List Problems Medical Problems: (1) CAP (community acquired pneumonia) Status: Acute (2) Dyspnea Status: Acute (3) Unspecified protein-calorie malnutrition Status: Acute Current Medications Current Medications Current Medications Sodium Chloride 1,000 ml @ 1,000 mls/hr Q1H IV Last administered on 12:18; Start 06/30/17 at 11:53; Stop 06/30/17 at 12:52; Status DC Sodium Chloride (Normal Saline Flush) 10 ml QSHIFT PRN IV AFTER MEDS AND BLOOD DRAWS; Start 06/30/17 at 12:00 Sodium Chloride (NORMAL SALINE FLUSH for STERILE FIELD) 10 ml STK-MED ONCE .ROUTE ; Start 06/30/17 at 12:44; Stop 06/30/17 at 12:45; Status DC Ceftriaxone Sodium 1 gm/ Dextrose 50 ml @ 100 mls/hr Q24H IV ; Start 07/01/17 at 14:00; Stop 07/01/17 at 14:00; Status DC Azithromycin 500 mg/Sodium Chloride 250 ml @ 250 mls/hr 1X ONCE IV ; Start at 13:15; Stop 06/30/17 at 14:14; Status UNV Ceftriaxone Sodium 50 ml @ 100 mls/hr 1X ONCE IV Last administered on 13:50; Start 06/30/17 at 13:30; Stop 06/30/17 at 13:59; Status DC Azithromycin 250 ml @ 250 mls/hr 1X ONCE IV Last administered on 06/30/17 14:25; Start 06/30/17 at 13:30; Stop 06/30/17 at 14:29; Status DC Ondansetron HCl (Zofran) 4 mg PRN Q8HRS PRN IV NAUSEA/VOMITING; Start at 13:45; Stop 06/30/17 at 14:30; Status DC Sodium Chloride 1,000 ml @ 75 mls/hr [id number] IV Last administered on 05:47; Start 06/30/17 at 14:00; Stop 07/01/17 at 13:59 Prochlorperazine Edisylate (Compazine) 10 mg PRN Q6HRS PRN IV NAUSEA/VOMITING; Start 06/30/17 at 14:15 Ondansetron HCl (Zofran) 4 mg PRN Q6HRS PRN IV NAUSEA/VOMITING; Start at 14:15 Donepezil HCl (Aricept) 5 mg BID PEG Last administered on 07/01/17 09:01; Start 06/30/17 at 21:00 Fentanyl (Duragesic 50mcg/ Hr Patch) 1 patch Q3DAYS TD ; Start 07/03/17 at 09: 00; Stop 07/03/17 at 09:00; Status DC Metoclopramide HCl (Reglan) 5 mg QIDAFTMEAL PO Last administered on 07/01/17 09:01; Start 06/30/17 at 18:00 Ondansetron HCl (Zofran Odt) 4 mg QIDPRN PRN PEG NAUSEA/VOMITING; Start at 14:15 Oxycodone/ Acetaminophen (Percocet 7.5/ 325) 1 tab PRN QID PRN PO PAIN Last administered on 07/01/17 09:03; Start 06/30/17 at 14:15 Pantoprazole Sodium (Protonix) 40 mg BIDAC PO ; Start 06/30/17 at 16:30; Stop 06/30/17 at 16:49; Status DC Albuterol Sulfate (Ventolin Neb Soln) 2.5 mg PRN Q4HRS PRN NEB SHORTNESS OF BREATH Last administered on 06/30/17 16:17; Start 06/30/17 at 14:45 Atenolol (Tenormin) 50 mg DAILY PEG Last administered on 07/01/17 09:03; Start 07/01/17 at 09:00 Cyproheptadine HCl (Periactin) 2 mg BID PEG Last administered on 07/01/17 09: 02; Start 06/30/17 at 21:00 Losartan Potassium (Cozaar) 100 mg DAILY PO Last administered on 07/01/17 09: 02; Start 07/01/17 at 09:00 Chlorthalidone (Thalitone) 25 mg DAILY PEG Last administered on 07/01/17 10: 28; Start 07/01/17 at 09:00 Lansoprazole (Prevacid) 30 mg BIDBFRMEAL FT Last administered on 07/01/17 09: 02; Start 07/01/17 at 07:30 Piperacillin Sod/ Tazobactam Sod (Zosyn Per Pharmacy) 1 each PRN DAILY PRN MC SEE COMMENTS; Start 06/30/17 at 21:00; Stop 06/30/17 at 21:00; Status DC Piperacillin Sod/ Tazobactam Sod (Zosyn Per Pharmacy) 1 each PRN DAILY PRN MC SEE COMMENTS; Start 06/30/17 at 18:00; Stop 07/01/17 at 09:25; Status DC Piperacillin Sod/ Tazobactam Sod 2.25 gm/Sodium Chloride 50 ml @ 100 mls/hr Q6HRS IV Last administered on 07/01/17 05:47; Start 06/30/17 at 18:30; Stop 07/01/17 at 09:25; Status DC Linezolid 300 ml @ 300 mls/hr Q12HR IV Last administered on 07/01/17 09:01; Start 06/30/17 at 19:30 Albuterol/ Ipratropium (Duoneb) 3 ml RTQID NEB Last administered on 07/01/17 10:55; Start 06/30/17 at 20:00 Scopolamine (Transderm-Scop) 1 patch Q3DAYS TD Last administered on 06/30/17 23:33; Start 06/30/17 at 22:00 Furosemide (Lasix) 20 mg 1X ONCE IVP Last administered on 06/30/17 23:25; Start 06/30/17 at 22:00; Stop 06/30/17 at 22:01; Status DC Fentanyl (Duragesic 50mcg/ Hr Patch) 1 patch Q3DAYS TD Last administered on 09:04; Start 07/01/17 at 09:00 Meropenem 1 gm/ Sodium Chloride 100 ml @ 200 mls/hr Q12HR IV Last administered on 07/01/17t 10:29; Start 07/01/17 at 10:00 Active Scripts Active Reported Diovan (Valsartan) 160 Mg Tablet 160 Mg PEG DAILY Pantoprazole Sodium 40 Mg Tablet.dr 40 Mg PEG BID Donepezil Hcl 5 Mg Tablet 5 Mg PEG BID Reglan (Metoclopramide Hcl) 10 Mg Tablet 5 Mg PO QIDAFTMEAL Atenolol-Chlorthal 50-25 Tb (Atenolol/Chlorthalidone) 1 Each Tablet 1 Tab PEG DAILY Cyproheptadine Hcl 2 Mg/5 Ml Syrup 2 Mg PEG BID Percocet 7.5-325 Mg Tablet (Oxycodone/Acetaminophen) 1 Each Tablet 1 Tab PO QID PRN Proair Hfa Inhaler (Albuterol Sulfate) 8.5 Gm Hfa.aer.ad 2 Puff IH PRN Q4-6HRS FENTANYL 50mcg/hr (Fentanyl) 1 Each Patch.td72 1 Patch TP Q3DAYS Ondansetron Odt (Ondansetron) 4 Mg Tab.rapdis 4 Mg PEG QIDPRN PRN Allergies Allergies: Coded Allergies: aspirin (Verified Allergy, Intermediate, hives, 03/16/17) ROS Review of System Unable to obtain from pt dueto trached status, she does nod her head to yes/no Qs. Caregiver answers ROS as outlined in HPI Physical Exam Physical Exam General Appearance: Awake rel Alert Oriented x ? In no obvious Distress Eyes: sclera Anicteric Conjunctiva Normal EN: No EN Drainage Mucous Memb. moist Neck: no JVD min JVP Supple no Thyromegaly - Trached and T-tube CVS: S1 S2 no Murmur No Gallop No Rub no Edema Resp: + richy Rales no Rhonchi no Acc. Muscle use GI: BAS +ve NO Bruit Non Tender Non Distended PEG tube : no CVA tenderness; no Suprapubic Tenderness SKIN: no visible Rashes Breast Exam deferred Mu.Sk: Adequate ROM ch Muscle Atrophy Heme: Unable to palpate Obvious LAD no plap Splenomegaly NEURO: decreased strength, OK tone. no asterixis Psych: ? Depressed no Active hallucination Vital Signs Vital Signs Date Time Temp Pulse Resp B/P (MAP) Pulse Ox O2 Delivery O2 Flow Rate FiO2 07/01/17 11:00 74 18 139/63 (88) 90 Tracheal Collar 4.0 07/01/17 07:00 97.9 97.9 Assessment & Plan SANCHEZ - suspect due to NSAID use. Creat is better despite Lasix use yest. Agree with DC IVF for now given tenous resp status. Current FLuid and E-lyte status does not necessitate emergent need for Dialysis. Will re-evaluate for Dialysis in am a SOB - defer to Pulm - ? Asp Pn HypoAlbuminemia - consider Eval for GI issues - since pt does not [place] TF well per family in room ? intravascualr Vol depelton is a possibiility - (^ed Bicarb) hold IVF since Resp status is tenous currently Discussed Plan of Care and prognosis etc. at length with family. Labs Labs Laboratory Tests Test 06/30/17 12:14 06/30/17 13:25 06/30/17 16:20 07/01/17 09:50 O2 Saturation 98 % (92-99) Arterial Blood pH 7.42 (7.35-7.45) Arterial Blood pCO2 at Patient Temp 51 mmHg (35-46) Arterial Blood pO2 at Patient Temp 135 mmHg (65-108) Arterial Blood HCO3 32 mmol/L (21-28) Arterial Blood Base Excess 7 mmol/L (-3-3) FiO2 32 White Blood Count 20.2 x10^3/uL (4.0-11.0) 14.0 x10^3/uL (4.0-11.0) Red Blood Count 4.23 x10^6/uL (3.50-5.40) 4.28 x10^6/uL (3.50-5.40) Hemoglobin 10.5 g/dL (12.0-15.5) 10.6 g/dL (12.0-15.5) Hematocrit 34.0 % (36.0-47.0) 34.0 % (36.0-47.0) Mean Corpuscular Volume 80 fL (79-100) 80 fL (79-100) Mean Corpuscular Hemoglobin 25 pg (25-35) 25 pg (25-35) Mean Corpuscular Hemoglobin Concent 31 g/dL (31-37) 31 g/dL (31-37) Red Cell Distribution Width 18.1 % (11.5-14.5) 18.2 % (11.5-14.5) Platelet Count 387 x10^3/uL (140-400) 364 x10^3/uL (140-400) Neutrophils (%) (Auto) 74 % (31-73) 76 % (31-73) Lymphocytes (%) (Auto) 17 % (24-48) 14 % (24-48) Monocytes (%) (Auto) 8 % (0-9) 9 % (0-9) Eosinophils (%) (Auto) 1 % (0-3) 2 % (0-3) Basophils (%) (Auto) 1 % (0-3) 0 % (0-3) Neutrophils # (Auto) 15.0 x10^3uL (1.8-7.7) 10.6 x10^3uL (1.8-7.7) Lymphocytes # (Auto) 3.5 x10^3/uL (1.0-4.8) 1.9 x10^3/uL (1.0-4.8) Monocytes # (Auto) 1.6 x10^3/uL (0.0-1.1) 1.2 x10^3/uL (0.0-1.1) Eosinophils # (Auto) 0.1 x10^3/uL (0.0-0.7) 0.2 x10^3/uL (0.0-0.7) Basophils # (Auto) 0.1 x10^3/uL (0.0-0.2) 0.1 x10^3/uL (0.0-0.2) Segmented Neutrophils % 62 % (35-66) Band Neutrophils % 12 % (0-9) Lymphocytes % 20 % (24-48) Monocytes % 4 % (0-10) Eosinophils % 1 % (0-5) Myelocytes % 1 % (0-0) Toxic Granulation Slight Toxic Vacuolation Slight Platelet Estimate Adequate (ADEQUATE) Hypochromasia Mod Anisocytosis Slight Sodium Level 135 mmol/L (136-145) 141 mmol/L (136-145) Potassium Level 4.6 mmol/L (3.5-5.1) 3.7 mmol/L (3.5-5.1) Chloride Level 96 mmol/L (98-107) 101 mmol/L (98-107) Carbon Dioxide Level 35 mmol/L (21-32) 37 mmol/L (21-32) Anion Gap 4 (6-14) 3 (6-14) Blood Urea Nitrogen 68 mg/dL (7-20) 43 mg/dL (7-20) Creatinine 2.1 mg/dL (0.6-1.0) 1.5 mg/dL (0.6-1.0) Estimated GFR (Cockcroft-Gault) 27.7 40.9 BUN/Creatinine Ratio 32 (6-20) Glucose Level 105 mg/dL (70-99) 144 mg/dL (70-99) Lactic Acid Level 1.0 mmol/L (0.4-2.0) Calcium Level 8.2 mg/dL (8.5-10.1) 8.5 mg/dL (8.5-10.1) Magnesium Level 4.4 mg/dL (1.8-2.4) Total Bilirubin 0.2 mg/dL (0.2-1.0) Aspartate Amino Transf (AST/SGOT) 19 U/L (15-37) Alanine Aminotransferase (ALT/SGPT) 15 U/L (14-59) Alkaline Phosphatase 91 U/L (46-116) Creatine Kinase 36 U/L (26-192) Creatine Kinase MB (Mass) < 0.5 ng/mL (0.0-3.6) Creatine Kinase MB Relative Index 1.4 % (0-4) Troponin I Quantitative 0.026 ng/mL (0.000-0.055) VG-Yjg-P-Type Natriuretic Peptide 9203 pg/mL (0-449) Total Protein 8.1 g/dL (6.4-8.2) Albumin 2.2 g/dL (3.4-5.0) Albumin/Globulin Ratio 0.4 (1.0-1.7) Lipase 110 U/L (73-393) Thyroid Stimulating Hormone (TSH) 2.016 uIU/mL (0.358-3.74) Nasal Screen MRSA (PCR) Negative (Negative) Laboratory Tests Test 06/30/17 16:20 07/01/17 09:50 Nasal Screen MRSA (PCR) Negative (Negative) White Blood Count 14.0 x10^3/uL (4.0-11.0) Red Blood Count 4.28 x10^6/uL (3.50-5.40) Hemoglobin 10.6 g/dL (12.0-15.5) Hematocrit 34.0 % (36.0-47.0) Mean Corpuscular Volume 80 fL (79-100) Mean Corpuscular Hemoglobin 25 pg (25-35) Mean Corpuscular Hemoglobin Concent 31 g/dL (31-37) Red Cell Distribution Width 18.2 % (11.5-14.5) Platelet Count 364 x10^3/uL (140-400) Neutrophils (%) (Auto) 76 % (31-73) Lymphocytes (%) (Auto) 14 % (24-48) Monocytes (%) (Auto) 9 % (0-9) Eosinophils (%) (Auto) 2 % (0-3) Basophils (%) (Auto) 0 % (0-3) Neutrophils # (Auto) 10.6 x10^3uL (1.8-7.7) Lymphocytes # (Auto) 1.9 x10^3/uL (1.0-4.8) Monocytes # (Auto) 1.2 x10^3/uL (0.0-1.1) Eosinophils # (Auto) 0.2 x10^3/uL (0.0-0.7) Basophils # (Auto) 0.1 x10^3/uL (0.0-0.2) Sodium Level 141 mmol/L (136-145) Potassium Level 3.7 mmol/L (3.5-5.1) Chloride Level 101 mmol/L (98-107) Carbon Dioxide Level 37 mmol/L (21-32) Anion Gap 3 (6-14) Blood Urea Nitrogen 43 mg/dL (7-20) Creatinine 1.5 mg/dL (0.6-1.0) Estimated GFR (Cockcroft-Gault) 40.9 Glucose Level 144 mg/dL (70-99) Calcium Level 8.5 mg/dL (8.5-10.1) Images Images IMPRESSION: Interval worsening. Volume loss at the lung bases has progressed. Findings may reflect atelectasis or pneumonia. There are bilateral pleural effusions which appear somewhat larger. There are suspect background changes of mild congestive heart failure FRANCISCO MATOS MD Jul 01, 2017 13:57
[2017-07-01 15:00] VITALS: BP 133/65
--- NOTE | 2017-07-01 15:02 | CONS ---
DATE OF CONSULTATION: 07/01/2017 DATE OF SERVICE: 07/01/2017 PRIMARY PHYSICIAN: Dr. Nina. REASON FOR CONSULTATION: Acute renal failure. HISTORY OF PRESENT ILLNESS: The patient is a 77-year-old -[place] female who lives at home with help from family members, but mostly independent. She is known to have a tracheostomy and uses minimal oxygen. She is also known to have a PEG tube and feeds herself through it. She is known to have a prior history of lung cancer requiring chemotherapy and radiation. She had increased oxygen demands at home and was brought to the ER. She thinks she urinates adequately especially after she was given Lasix in the ER. She was treated for community-acquired pneumonia through the ER. She has also had increased weakness. The family thinks that she does not take all her tube feeds as outlined because she falls asleep and they have noticed quite some of the tube feeds leaked out onto the furniture at home. At presentation, she did have a temperature of 99. They are not aware of known underlying renal insufficiency. Baseline creatinine available to me as recently as last month was 1.0. She was noted to have an abnormal chest x-ray as outlined in the electronic renal consult note. At presentation, she was noted to have a creatinine of 2.1, which despite negative fluid balance and diureses is down to 1.5 today. The patient admits to taking Advil from time to time. She could not tell me how much she has taken in the recent past. REVIEW OF SYSTEMS: She denies nausea, vomiting, diarrhea, dysuria, urgency or frequency currently as best ascertainable from the patient. Other review of systems were unable to be obtained. She is noted to be on chlorthalidone also. DICTATION ENDS HERE FRANCISCO MATOS MD DR: FCO/sena JOB#: [id number] / [id number]
--- NOTE | 2017-07-01 16:47 | CONS ---
DATE OF CONSULTATION: 07/01/2017 DATE OF CONSULTATION: 07/01/2017. LOCATION: The patient is in room 512. REQUESTING PHYSICIAN: Dr. Nina. REASON FOR CONSULTATION: Aspiration pneumonia. HISTORY OF PRESENT ILLNESS: The patient is a 77-year-old -[place] female with a history of laryngeal cancer, squamous cell carcinoma of the left lung, has received radiation and has a chronic trach. She was recently treated for healthcare-associated pneumonia. She does have a history of MRSA, pseudomonas C. diff and an E. coli from her sputum on the that was resistant to ampicillin, ciprofloxacin, tetracycline, Bactrim and piperacillin, but she received Zosyn during her last hospitalization and was discharged on Vantin and did fairly well. She is now brought back to [facility] Emergency Room on 06/30/2017 secondary to hypertensive episode and possible aspiration. Apparently, her oxygen demand increased from 3 liters to 5 liters, but developed decreased saturations 51% and decreased mental status change on the 06/30/2017. Hence, she was brought to [facility]. T-max has been 99. On arrival, her white blood cell count was 20.2 with 12% bands and her creatinine was at 2.1. Chest x-ray was performed and showed interval worsening, some volume loss and progressed, findings may reflect atelectasis or pneumonia, some bilateral pleural effusions, left was worse than the right. No urine was obtained. I was contacted yesterday afternoon with report of aspiration pneumonia and instituted Zosyn. She had received azithromycin and Rocephin x 1 and Zyvox has since been ordered. Currently, the patient is sitting upright in bed. She appeared weak, but cooperative. She is on oxygen via trach. PAST MEDICAL HISTORY: Positive for MRSA, history of Clostridium difficile, Pseudomonas aeruginosa, intermediate to Levaquin and otherwise sensitive E. coli as mentioned above. 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 She has chronic respiratory failure, hypertension, hypercholesterolemia, chronic obstructive pulmonary disease, asthma, sleep apnea, gastroesophageal reflux disease, arthritis, anxiety, chronic leukocytosis, peptic ulcer disease and deep vein thrombosis. PAST SURGICAL HISTORY: Positive for tracheostomy, neck dissections, PEG tube placement, cataract extraction. REVIEW OF SYSTEMS: Difficult to ascertain. ALLERGIES: Listed as aspirin. SOCIAL HISTORY: Lives at home. Former smoker and history of heavy alcohol use. FAMILY HISTORY: Positive for heart disease and cancer. CURRENT MEDICATIONS: Include azithromycin, Rocephin x 1, currently on Zyvox, also on Zosyn, albuterol, Tenormin, chlorthalidone, fentanyl patch, Lasix, Prevacid, Cozaar, Reglan, Protonix, scopolamine. Other meds are available and reviewed in the chart. PHYSICAL EXAMINATION: VITAL SIGNS: She is afebrile, temperature 97.9, pulse 83, respirations 18, blood pressure 148/67 and satting 90% now on 8 liters of oxygen. CONSTITUTIONAL: She is alert, but she appears fatigued. She is in no acute distress. HEENT: Pupils are equal and reactive. She has normal conjunctivae. Oral cavity, pharynx is edentulous and dry. NECK: Trach in place. LUNGS: Had decreased base sounds. No gross crackles. HEART: S1, S2. ABDOMEN: Soft, nontender. PEG without signs of any complications. EXTREMITIES: No clubbing, cyanosis or gross edema. SKIN: Without signs of rash. Warm to touch. NEUROLOGIC: She is alert and follows simple commands. Right-sided Port-A-Cath without signs of complications. LABORATORY DATA: On arrival, white cell count was 20.2, hemoglobin 10.5, platelets 307, neutrophils 62, bands 12, lymphs 20, creatinine was 2.1, glucose of 105. Normal liver function study tests. Chest x-ray reviewed in the history of present illness. IMPRESSION: 1. Acute respiratory failure, questionable aspiration. 2. Leukocytosis. 3. Acute kidney injury. 4. Recent Escherichia coli as mentioned above. RECOMMENDATIONS: Agree with Zyvox. I did add Zosyn yesterday and after informed for aspiration; however, and she has received a dose of Rocephin to which her previous E. coli was sensitive to, however, now with increasing oxygen to 8 liters, changed to Merrem and we will followup, will order a CBC, BMP now as there were no labs ordered this morning. We will follow up labs and cultures. Thank you for allowing me to see and participate in the patient's care. If you have any questions, please do not hesitate to contact me. GWEN MCQUEEN MD DR: Alexandra JOB#: [id number] / [id number]
[2017-07-01 19:00] VITALS: BP 157/71
[2017-07-01] MEDS: ONDANSETRON PF 4 MG/2 ML VIAL. IV PRN (22:40)
[2017-07-01 22:58] VITALS: BP 116/53
[2017-07-02 03:33] VITALS: BP 153/75
[2017-07-02 05:00] LABS: BASO # 0.1 x10^3/uL (0.0-0.2); BASO % 1 % (0-3); EOS % 3 % (0-3); HEMATOCRIT 33.1 % (36.0-47.0); HEMOGLOBIN 10.2 g/dL (12.0-15.5); LYMPH # 2.6 x10^3/uL (1.0-4.8); LYMPH % 16 % (24-48); MEAN CORPUSCULAR HEMOGLOBIN 25 pg (25-35); MEAN CORPUSCULAR HGB CONC 31 g/dL (31-37); MEAN CORPUSCULAR VOLUME 80 fL (79-100); MONO % 6 % (0-9); NEUT % 75 % (31-73); PLATELET COUNT 367 x10^3/uL (140-400); RED BLOOD COUNT 4.13 x10^6/uL (3.50-5.40); RED CELL DISTRIBUTION WIDTH 17.5 % (11.5-14.5); WHITE BLOOD COUNT 16.4 x10^3/uL (4.0-11.0)
[2017-07-02 05:20] LABS: CALCIUM 9.1 mg/dL (8.5-10.1); CREATININE 1.1 mg/dL (0.6-1.0); GFR 58.4
[2017-07-02] MEDS: oxyCODONE/APAP 7.5/325 1 TAB TABLET PO PRN ×3 (05:35→20:57)
[2017-07-02 07:30] VITALS: BP 152/83
[2017-07-02] MEDS: IPRATRPIUM/ALBUTEROL 0.5/2.5MG 3 ML NEBU. NEB SCH ×4 (07:30→19:31)
[2017-07-02] MEDS: LOSARTAN POTASSIUM 50 MG TABLET. PO SCH (08:46)
[2017-07-02] MEDS: CYPROHEPTADINE 4 MG TABLET. PEG SCH ×2 (08:46→20:57)
[2017-07-02] MEDS: LANSOPRAZOLE 30 MG TAB.RAP.DR FT SCH ×2 (08:47→16:30)
[2017-07-02] MEDS: CHLORTHALIDONE 25 MG TABLET. PEG SCH (08:47)
[2017-07-02] MEDS: DONEPEZIL HCL 5 MG TABLET. PEG SCH ×2 (08:47→20:57)
[2017-07-02] MEDS: METOCLOPRAMIDE 5 MG TABLET. PO SCH ×4 (08:47→20:58)
[2017-07-02] MEDS: ATENOLOL 50 MG TABLET. PEG SCH (08:47)
[2017-07-02] MEDS: MEROPENEM 1 GM in IV NORMAL SALINE 100ML 100 ML IV SCH ×2 (08:48→20:58)
--- NOTE | 2017-07-02 09:44 | PDOC ---
SUBJECTIVE ROS F/up for SANCHEZ Doing same OBJECTIVE Vital Signs Vital Signs Date Time Temp Pulse Resp B/P (MAP) Pulse Ox O2 Delivery O2 Flow Rate FiO2 07/02/17 08:47 85 152/83 07/02/17 07:32 92 ap neb 8.0 07/02/17 07:30 98.6 18 98.6 PHYSICAL EXAM Physical Exam General Appearance: Awake: Alert Oriented x 1-2 Neck: No JVD or JVP Chest: CTA Jens - occ rales Heart: S1 S2 Abdomen - Soft NTND Extremities - No Edema DIAGNOSIS/ASSESSMENT Assessment & Plan SANCHEZ - resolved Will be available prn Problems: COMMENT/RELEVANT DATA Meds Current Medications Medications (Trade) Dose Ordered Sig/Yuliana Start Time Stop Time Status Last Admin Dose Admin Albuterol Sulfate (Ventolin Neb Soln) 2.5 mg PRN Q4HRS PRN 06/30/17 14:45 06/30/17 16:17 2.5 MG Albuterol/ Ipratropium (Duoneb) 3 ml RTQID 06/30/17 20:00 07/02/17 07:30 3 ML Atenolol (Tenormin) 50 mg DAILY 07/01/17 09:00 07/02/17 08:47 50 MG Azithromycin 250 ml @ 250 mls/hr 1X ONCE 06/30/17 13:30 06/30/17 14:29 DC 06/30/17 14:25 250 MLS/HR Azithromycin 500 mg/Sodium Chloride 250 ml @ 250 mls/hr 1X ONCE 06/30/17 13:15 06/30/17 14:14 UNV Ceftriaxone Sodium 1 gm/ Dextrose 50 ml @ 100 mls/hr Q24H 07/01/17 14:00 07/01/17 14:00 DC Ceftriaxone Sodium 50 ml @ 100 mls/hr 1X ONCE 06/30/17 13:30 06/30/17 13:59 DC 06/30/17 13:50 100 MLS/HR Chlorthalidone (Thalitone) 25 mg DAILY 07/01/17 09:00 07/02/17 08:47 25 MG Cyproheptadine HCl (Periactin) 2 mg BID 06/30/17 21:00 07/02/17 08:46 2 MG Donepezil HCl (Aricept) 5 mg BID 06/30/17 21:00 07/02/17 08:47 5 MG Fentanyl (Duragesic 50mcg/ Hr Patch) 1 patch Q3DAYS 07/01/17 09:00 07/01/17 09:04 1 PATCH Furosemide (Lasix) 20 mg 1X ONCE 06/30/17 22:00 06/30/17 22:01 DC 06/30/17 23:25 20 MG Lansoprazole (Prevacid) 30 mg BIDBFRMEAL 07/01/17 07:30 07/02/17 08:47 30 MG Linezolid 300 ml @ 300 mls/hr Q12HR 06/30/17 19:30 07/02/17 08:48 300 MLS/HR Losartan Potassium (Cozaar) 100 mg DAILY 07/01/17 09:00 07/02/17 08:46 100 MG Meropenem 1 gm/ Sodium Chloride 100 ml @ 200 mls/hr Q12HR 07/01/17 10:00 07/02/17 08:48 200 MLS/HR Metoclopramide HCl (Reglan) 5 mg QIDAFTMEAL 06/30/17 18:00 07/02/17 08:47 5 MG Ondansetron HCl (Zofran Odt) 4 mg QIDPRN PRN 06/30/17 14:15 Ondansetron HCl (Zofran) 4 mg PRN Q6HRS PRN 06/30/17 14:15 07/01/17 22:40 4 MG Oxycodone/ Acetaminophen (Percocet 7.5/ 325) 1 tab PRN QID PRN 06/30/17 14:15 07/02/17 05:35 1 TAB Pantoprazole Sodium (Protonix) 40 mg BIDAC 06/30/17 16:30 06/30/17 16:49 DC Piperacillin Sod/ Tazobactam Sod (Zosyn Per Pharmacy) 1 each PRN DAILY PRN 06/30/17 18:00 07/01/17 09:25 DC Piperacillin Sod/ Tazobactam Sod 2.25 gm/Sodium Chloride 50 ml @ 100 mls/hr Q6HRS 06/30/17 18:30 07/01/17 09:25 DC 07/01/17 05:47 100 MLS/HR Prochlorperazine Edisylate (Compazine) 10 mg PRN Q6HRS PRN 06/30/17 14:15 Scopolamine (Transderm-Scop) 1 patch Q3DAYS 06/30/17 22:00 06/30/17 23:33 1 PATCH Sodium Chloride 1,000 ml @ 75 mls/hr [id number] 06/30/17 14:00 07/01/17 13:59 DC 07/01/17 05:47 75 MLS/HR Sodium Chloride (NORMAL SALINE FLUSH for STERILE FIELD) 10 ml STK-MED ONCE 06/30/17 12:44 06/30/17 12:45 DC Sodium Chloride (Normal Saline Flush) 10 ml QSHIFT PRN 06/30/17 12:00 Lab Laboratory Tests Test 07/01/17 09:50 07/02/17 04:40 White Blood Count 14.0 x10^3/uL (4.0-11.0) 16.4 x10^3/uL (4.0-11.0) Red Blood Count 4.28 x10^6/uL (3.50-5.40) 4.13 x10^6/uL (3.50-5.40) Hemoglobin 10.6 g/dL (12.0-15.5) 10.2 g/dL (12.0-15.5) Hematocrit 34.0 % (36.0-47.0) 33.1 % (36.0-47.0) Mean Corpuscular Volume 80 fL (79-100) 80 fL (79-100) Mean Corpuscular Hemoglobin 25 pg (25-35) 25 pg (25-35) Mean Corpuscular Hemoglobin Concent 31 g/dL (31-37) 31 g/dL (31-37) Red Cell Distribution Width 18.2 % (11.5-14.5) 17.5 % (11.5-14.5) Platelet Count 364 x10^3/uL (140-400) 367 x10^3/uL (140-400) Neutrophils (%) (Auto) 76 % (31-73) 75 % (31-73) Lymphocytes (%) (Auto) 14 % (24-48) 16 % (24-48) Monocytes (%) (Auto) 9 % (0-9) 6 % (0-9) Eosinophils (%) (Auto) 2 % (0-3) 3 % (0-3) Basophils (%) (Auto) 0 % (0-3) 1 % (0-3) Neutrophils # (Auto) 10.6 x10^3uL (1.8-7.7) 12.3 x10^3uL (1.8-7.7) Lymphocytes # (Auto) 1.9 x10^3/uL (1.0-4.8) 2.6 x10^3/uL (1.0-4.8) Monocytes # (Auto) 1.2 x10^3/uL (0.0-1.1) 1.1 x10^3/uL (0.0-1.1) Eosinophils # (Auto) 0.2 x10^3/uL (0.0-0.7) 0.4 x10^3/uL (0.0-0.7) Basophils # (Auto) 0.1 x10^3/uL (0.0-0.2) 0.1 x10^3/uL (0.0-0.2) Sodium Level 141 mmol/L (136-145) 142 mmol/L (136-145) Potassium Level 3.7 mmol/L (3.5-5.1) 4.0 mmol/L (3.5-5.1) Chloride Level 101 mmol/L (98-107) 103 mmol/L (98-107) Carbon Dioxide Level 37 mmol/L (21-32) 32 mmol/L (21-32) Anion Gap 3 (6-14) 7 (6-14) Blood Urea Nitrogen 43 mg/dL (7-20) 29 mg/dL (7-20) Creatinine 1.5 mg/dL (0.6-1.0) 1.1 mg/dL (0.6-1.0) Estimated GFR (Cockcroft-Gault) 40.9 58.4 Glucose Level 144 mg/dL (70-99) 93 mg/dL (70-99) Calcium Level 8.5 mg/dL (8.5-10.1) 9.1 mg/dL (8.5-10.1) FRANCISCO MATOS MD Jul 02, 2017 09:44
--- NOTE | 2017-07-02 10:03 | PDOC2 ---
GI CONSULT Reason For Consult: Bloody stool, constipation HPI: HPI: 77 y/o AA female well-known to GI. PMH is significant for laryngeal cancer s/p chemo/radiation w/ resultant dysphagia requiring PEG tube since about 2008. Additionally, she has h/o lung cancer s/p radiation and has a tracheostomy. Admitted w/ resp failure/hypoxia, possible aspiration. Overnight had two bloody stools. She denies abd pain, asks when she can go home. Hgb has remained stable in 10s. SANCHEZ this admission; BUN and Cr improving. EGD w/ PEG replacement performed by Dr. Taylor in 05/2016. Attempted endoscopic replacement in 03/2017 - not successful due to upper esophageal stricture/extrinsic compression from trach and scar tissue. Surgery replaced at bedside. PEG functioning currently. On Prevacid QD. No previous colonoscopy. Additionally on Reglan w/ suspected h/o gastroparesis. H/o C Diff. CTs have noted chronic mild dilation of CBD. HIDA has been recommended in the past; she declined. 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 Denies pain. Says breathing okay. Vitals: Vitals: Vital Signs Date Time Temp Pulse Resp B/P (MAP) Pulse Ox O2 Delivery O2 Flow Rate FiO2 07/02/17 08:47 85 152/83 07/02/17 08:00 Trach Collar 10.0 07/02/17 07:32 92 07/02/17 07:30 98.6 18 98.6 Labs: Labs: Laboratory Tests Test 07/02/17 04:40 White Blood Count 16.4 x10^3/uL (4.0-11.0) Red Blood Count 4.13 x10^6/uL (3.50-5.40) Hemoglobin 10.2 g/dL (12.0-15.5) Hematocrit 33.1 % (36.0-47.0) Mean Corpuscular Volume 80 fL (79-100) Mean Corpuscular Hemoglobin 25 pg (25-35) Mean Corpuscular Hemoglobin Concent 31 g/dL (31-37) Red Cell Distribution Width 17.5 % (11.5-14.5) Platelet Count 367 x10^3/uL (140-400) Neutrophils (%) (Auto) 75 % (31-73) Lymphocytes (%) (Auto) 16 % (24-48) Monocytes (%) (Auto) 6 % (0-9) Eosinophils (%) (Auto) 3 % (0-3) Basophils (%) (Auto) 1 % (0-3) Neutrophils # (Auto) 12.3 x10^3uL (1.8-7.7) Lymphocytes # (Auto) 2.6 x10^3/uL (1.0-4.8) Monocytes # (Auto) 1.1 x10^3/uL (0.0-1.1) Eosinophils # (Auto) 0.4 x10^3/uL (0.0-0.7) Basophils # (Auto) 0.1 x10^3/uL (0.0-0.2) Sodium Level 142 mmol/L (136-145) Potassium Level 4.0 mmol/L (3.5-5.1) Chloride Level 103 mmol/L (98-107) Carbon Dioxide Level 32 mmol/L (21-32) Anion Gap 7 (6-14) Blood Urea Nitrogen 29 mg/dL (7-20) Creatinine 1.1 mg/dL (0.6-1.0) Estimated GFR (Cockcroft-Gault) 58.4 Glucose Level 93 mg/dL (70-99) Calcium Level 9.1 mg/dL (8.5-10.1) Allergies: Coded Allergies: aspirin (Verified Allergy, Intermediate, hives, 03/16/17) Medications: Current Medications Medications (Trade) Dose Ordered Sig/Yuliana Route PRN Reason Start Time Stop Time Status Last Admin Dose Admin Meropenem 1 gm/ Sodium Chloride 100 ml @ 200 mls/hr Q12HR IV 07/01/17 10:00 07/02/17 08:48 Imaging: Imaging: CXR IMPRESSION: Interval worsening. Volume loss at the lung bases has progressed. Findings may reflect atelectasis or pneumonia. There are bilateral pleural effusions which appear somewhat larger. There are suspect background changes of mild congestive heart failure. PE: GEN: NAD HEENT: Atraumatic, PERRL LUNGS: trach/shield HEART: RRR ABD: NABS, S/ND/NT, PEG tube looks old, site clean EXTREMITY: No edema SKIN: No rashes, no jaundice NEURO/PSYCH: A & O 3 A/P: A/P: Bloody stools -twice overnight, stable Hgb -no previous colonoscopy -on PPI -h/o C Diff Resp failure Oropharyngeal dysphagia -h/o laryngeal and lung cancer w/ trach and PEG in place -unable to replace endoscopically in 03/2017; surgery replaced at bedside -- Stable Hgb - monitor for now. If rebleeds, consider imaging. ?constipation/?stercoral ulcer Has C Diff history... if stools not formed, check this. LE ROSENTHAL Jul 02, 2017 10:03
--- NOTE | 2017-07-02 10:10 | PDOC ---
Infectious Disease Note Subjective Subjective More alert but still weak ROS ROS GEN: Denies fevers, chills, sweats HEENT: sore throat CV: Denies chest pain RESP: Denies shortness of air, does have a cough GI: Denies n/v/d NEURO: Denies confusion, dizziness MSK: Denies weakness, joint pain/swelling Vital Sign Vital Signs Vital Signs Date Time Temp Pulse Resp B/P (MAP) Pulse Ox O2 Delivery O2 Flow Rate FiO2 07/02/17 08:47 85 152/83 07/02/17 08:00 Trach Collar 10.0 07/02/17 07:32 92 07/02/17 07:30 98.6 18 98.6 Physical Exam PHYSICAL EXAM GENERAL: NAD, Alert but appears weak HEENT: PERRL, OC/OP - dry NECK: Supple, no JVD, no LN. Trach clean but with colored sputum on chest LUNGS: Clear HEART: S1S2, no gallop, no murmur ABD: Soft, NT, no organomegaly, no rebound. PEG - clean EXT: No edema, no cyanosis [employer] FI[employer]ER: Alert, oriented x 3, no focal neurologic deficit SKIN: No rash IV: Port Right chest clean Labs Lab Laboratory Tests Test 07/02/17 04:40 White Blood Count 16.4 x10^3/uL (4.0-11.0) Red Blood Count 4.13 x10^6/uL (3.50-5.40) Hemoglobin 10.2 g/dL (12.0-15.5) Hematocrit 33.1 % (36.0-47.0) Mean Corpuscular Volume 80 fL (79-100) Mean Corpuscular Hemoglobin 25 pg (25-35) Mean Corpuscular Hemoglobin Concent 31 g/dL (31-37) Red Cell Distribution Width 17.5 % (11.5-14.5) Platelet Count 367 x10^3/uL (140-400) Neutrophils (%) (Auto) 75 % (31-73) Lymphocytes (%) (Auto) 16 % (24-48) Monocytes (%) (Auto) 6 % (0-9) Eosinophils (%) (Auto) 3 % (0-3) Basophils (%) (Auto) 1 % (0-3) Neutrophils # (Auto) 12.3 x10^3uL (1.8-7.7) Lymphocytes # (Auto) 2.6 x10^3/uL (1.0-4.8) Monocytes # (Auto) 1.1 x10^3/uL (0.0-1.1) Eosinophils # (Auto) 0.4 x10^3/uL (0.0-0.7) Basophils # (Auto) 0.1 x10^3/uL (0.0-0.2) Sodium Level 142 mmol/L (136-145) Potassium Level 4.0 mmol/L (3.5-5.1) Chloride Level 103 mmol/L (98-107) Carbon Dioxide Level 32 mmol/L (21-32) Anion Gap 7 (6-14) Blood Urea Nitrogen 29 mg/dL (7-20) Creatinine 1.1 mg/dL (0.6-1.0) Estimated GFR (Cockcroft-Gault) 58.4 Glucose Level 93 mg/dL (70-99) Calcium Level 9.1 mg/dL (8.5-10.1) Objective Assessment Acute resp failure ? aspiration on 9 liters Leukocytosis - mild increase today SANCHEZ - better Encephalopathy - some better today Recent Ecoli as mentions above Plan Plan of Care Agree with Zyvox Cont meropenem (received Rocephin 06/30) added 07/01 given worsening oxygenation Sputum cult C-diff ordered per GI recent + 02/2017 F/u labs and cults in am GWEN MCQUEEN MD Jul 02, 2017 10:10
[2017-07-02 10:30] VITALS: BP 131/75
[2017-07-02 13:12] LABS: NEG OBC FOB NEG; POS OBC FOB POS
--- NOTE | 2017-07-02 14:01 | PDOC ---
PROGRESS NOTES Chief Complaint Chief Complaint ASpiration HIGH LIKELIHOOD, PNEUMONITIS VS PNA - pENDING CXR AMS, 2/2 above, resolved HAP, GNR ( E coli on sputum cx in may 2017) acute on chronic hypoxic and hypercapnic resp failure h/o larygneal Ca with lung meds post chemo and RT, has trach Dysphagia , PEG htn COPD h/o cdiff h/o MRSA h/O pseudomonas PNA SANCHEZ, vasomotor CKD 3 mild malnutrition Sepsis with HAP plan: FU WIth Gi, bleeding scan ordered fobt neg, hb stable on zyvox and meropenum, fu with ID duoneb trach collar o2 8-10L local trach care cdiff pending PEG feeding History of Present Illness History of Present Illness ROS: no fever, chills, sob or chest pain WBC up to 16, still need high O2 on trach collar 8-10L NO fevers ON IV zyvox and IV meropnem by pulmo and ID, respectively CXR some effusion and edema bloody stool neg fobt Vitals Vitals Vital Signs Date Time Temp Pulse Resp B/P (MAP) Pulse Ox O2 Delivery O2 Flow Rate FiO2 07/02/17 11:05 92 ap neb 8.0 07/02/17 10:30 98.5 81 18 131/75 (93) 98.5 Physical Exam General: Cooperative, No acute distress, Other (yellowish sputum in trach) Heart: Regular rate Lungs: Crackles, Other (bl rhonchis) Abdomen: Soft, Other (PEg in place) Extremities: Other (minimal subQ tissue) Skin: No rashes, No breakdown, No significant lesion Labs LABS Laboratory Tests Test 07/02/17 04:40 07/02/17 12:50 White Blood Count 16.4 x10^3/uL (4.0-11.0) Red Blood Count 4.13 x10^6/uL (3.50-5.40) Hemoglobin 10.2 g/dL (12.0-15.5) Hematocrit 33.1 % (36.0-47.0) Mean Corpuscular Volume 80 fL (79-100) Mean Corpuscular Hemoglobin 25 pg (25-35) Mean Corpuscular Hemoglobin Concent 31 g/dL (31-37) Red Cell Distribution Width 17.5 % (11.5-14.5) Platelet Count 367 x10^3/uL (140-400) Neutrophils (%) (Auto) 75 % (31-73) Lymphocytes (%) (Auto) 16 % (24-48) Monocytes (%) (Auto) 6 % (0-9) Eosinophils (%) (Auto) 3 % (0-3) Basophils (%) (Auto) 1 % (0-3) Neutrophils # (Auto) 12.3 x10^3uL (1.8-7.7) Lymphocytes # (Auto) 2.6 x10^3/uL (1.0-4.8) Monocytes # (Auto) 1.1 x10^3/uL (0.0-1.1) Eosinophils # (Auto) 0.4 x10^3/uL (0.0-0.7) Basophils # (Auto) 0.1 x10^3/uL (0.0-0.2) Sodium Level 142 mmol/L (136-145) Potassium Level 4.0 mmol/L (3.5-5.1) Chloride Level 103 mmol/L (98-107) Carbon Dioxide Level 32 mmol/L (21-32) Anion Gap 7 (6-14) Blood Urea Nitrogen 29 mg/dL (7-20) Creatinine 1.1 mg/dL (0.6-1.0) Estimated GFR (Cockcroft-Gault) 58.4 Glucose Level 93 mg/dL (70-99) Calcium Level 9.1 mg/dL (8.5-10.1) Stool Occult Blood Negative (NEG) Assessment and Plan Assessmemt and Plan Problems Medical Problems: (1) CAP (community acquired pneumonia) Status: Acute (2) Dyspnea Status: Acute (3) Unspecified protein-calorie malnutrition Status: Acute Problems: Comment Review of Relevant I have reviewed the following items miko (where applicable) has been applied. Labs Laboratory Tests Test 06/30/17 16:20 07/01/17 09:50 07/02/17 04:40 07/02/17 12:50 Nasal Screen MRSA (PCR) Negative (Negative) White Blood Count 14.0 x10^3/uL (4.0-11.0) 16.4 x10^3/uL (4.0-11.0) Red Blood Count 4.28 x10^6/uL (3.50-5.40) 4.13 x10^6/uL (3.50-5.40) Hemoglobin 10.6 g/dL (12.0-15.5) 10.2 g/dL (12.0-15.5) Hematocrit 34.0 % (36.0-47.0) 33.1 % (36.0-47.0) Mean Corpuscular Volume 80 fL (79-100) 80 fL (79-100) Mean Corpuscular Hemoglobin 25 pg (25-35) 25 pg (25-35) Mean Corpuscular Hemoglobin Concent 31 g/dL (31-37) 31 g/dL (31-37) Red Cell Distribution Width 18.2 % (11.5-14.5) 17.5 % (11.5-14.5) Platelet Count 364 x10^3/uL (140-400) 367 x10^3/uL (140-400) Neutrophils (%) (Auto) 76 % (31-73) 75 % (31-73) Lymphocytes (%) (Auto) 14 % (24-48) 16 % (24-48) Monocytes (%) (Auto) 9 % (0-9) 6 % (0-9) Eosinophils (%) (Auto) 2 % (0-3) 3 % (0-3) Basophils (%) (Auto) 0 % (0-3) 1 % (0-3) Neutrophils # (Auto) 10.6 x10^3uL (1.8-7.7) 12.3 x10^3uL (1.8-7.7) Lymphocytes # (Auto) 1.9 x10^3/uL (1.0-4.8) 2.6 x10^3/uL (1.0-4.8) Monocytes # (Auto) 1.2 x10^3/uL (0.0-1.1) 1.1 x10^3/uL (0.0-1.1) Eosinophils # (Auto) 0.2 x10^3/uL (0.0-0.7) 0.4 x10^3/uL (0.0-0.7) Basophils # (Auto) 0.1 x10^3/uL (0.0-0.2) 0.1 x10^3/uL (0.0-0.2) Sodium Level 141 mmol/L (136-145) 142 mmol/L (136-145) Potassium Level 3.7 mmol/L (3.5-5.1) 4.0 mmol/L (3.5-5.1) Chloride Level 101 mmol/L (98-107) 103 mmol/L (98-107) Carbon Dioxide Level 37 mmol/L (21-32) 32 mmol/L (21-32) Anion Gap 3 (6-14) 7 (6-14) Blood Urea Nitrogen 43 mg/dL (7-20) 29 mg/dL (7-20) Creatinine 1.5 mg/dL (0.6-1.0) 1.1 mg/dL (0.6-1.0) Estimated GFR (Cockcroft-Gault) 40.9 58.4 Glucose Level 144 mg/dL (70-99) 93 mg/dL (70-99) Calcium Level 8.5 mg/dL (8.5-10.1) 9.1 mg/dL (8.5-10.1) Stool Occult Blood Negative (NEG) Laboratory Tests Test 07/02/17 04:40 07/02/17 12:50 White Blood Count 16.4 x10^3/uL (4.0-11.0) Red Blood Count 4.13 x10^6/uL (3.50-5.40) Hemoglobin 10.2 g/dL (12.0-15.5) Hematocrit 33.1 % (36.0-47.0) Mean Corpuscular Volume 80 fL (79-100) Mean Corpuscular Hemoglobin 25 pg (25-35) Mean Corpuscular Hemoglobin Concent 31 g/dL (31-37) Red Cell Distribution Width 17.5 % (11.5-14.5) Platelet Count 367 x10^3/uL (140-400) Neutrophils (%) (Auto) 75 % (31-73) Lymphocytes (%) (Auto) 16 % (24-48) Monocytes (%) (Auto) 6 % (0-9) Eosinophils (%) (Auto) 3 % (0-3) Basophils (%) (Auto) 1 % (0-3) Neutrophils # (Auto) 12.3 x10^3uL (1.8-7.7) Lymphocytes # (Auto) 2.6 x10^3/uL (1.0-4.8) Monocytes # (Auto) 1.1 x10^3/uL (0.0-1.1) Eosinophils # (Auto) 0.4 x10^3/uL (0.0-0.7) Basophils # (Auto) 0.1 x10^3/uL (0.0-0.2) Sodium Level 142 mmol/L (136-145) Potassium Level 4.0 mmol/L (3.5-5.1) Chloride Level 103 mmol/L (98-107) Carbon Dioxide Level 32 mmol/L (21-32) Anion Gap 7 (6-14) Blood Urea Nitrogen 29 mg/dL (7-20) Creatinine 1.1 mg/dL (0.6-1.0) Estimated GFR (Cockcroft-Gault) 58.4 Glucose Level 93 mg/dL (70-99) Calcium Level 9.1 mg/dL (8.5-10.1) Stool Occult Blood Negative (NEG) Microbiology 06/30/17 Blood Culture - Preliminary, Resulted NO GROWTH AFTER 1 DAY Medications Current Medications Sodium Chloride 1,000 ml @ 1,000 mls/hr Q1H IV Last administered on t 12:18; Start 06/30/17 at 11:53; Stop 06/30/17 at 12:52; Status DC Sodium Chloride (Normal Saline Flush) 10 ml QSHIFT PRN IV AFTER MEDS AND BLOOD DRAWS; Start 06/30/17 at 12:00 Sodium Chloride (NORMAL SALINE FLUSH for STERILE FIELD) 10 ml STK-MED ONCE .ROUTE ; Start 06/30/17 at 12:44; Stop 06/30/17 at 12:45; Status DC Ceftriaxone Sodium 1 gm/ Dextrose 50 ml @ 100 mls/hr Q24H IV ; Start 07/01/17 at 14:00; Stop 07/01/17 at 14:00; Status DC Azithromycin 500 mg/Sodium Chloride 250 ml @ 250 mls/hr 1X ONCE IV ; Start at 13:15; Stop 06/30/17 at 14:14; Status UNV Ceftriaxone Sodium 50 ml @ 100 mls/hr 1X ONCE IV Last administered on t 13:50; Start 06/30/17 at 13:30; Stop 06/30/17 at 13:59; Status DC Azithromycin 250 ml @ 250 mls/hr 1X ONCE IV Last administered on 06/30/17 14:25; Start 06/30/17 at 13:30; Stop 06/30/17 at 14:29; Status DC Ondansetron HCl (Zofran) 4 mg PRN Q8HRS PRN IV NAUSEA/VOMITING; Start at 13:45; Stop 06/30/17 at 14:30; Status DC Sodium Chloride 1,000 ml @ 75 mls/hr [id number] IV Last administered on 05:47; Start 06/30/17 at 14:00; Stop 07/01/17 at 13:59; Status DC Prochlorperazine Edisylate (Compazine) 10 mg PRN Q6HRS PRN IV NAUSEA/VOMITING; Start 06/30/17 at 14:15 Ondansetron HCl (Zofran) 4 mg PRN Q6HRS PRN IV NAUSEA/VOMITING Last administered on 07/01/17 22:40; Start 06/30/17 at 14:15 Donepezil HCl (Aricept) 5 mg BID PEG Last administered on 07/02/17 08:47; Start 06/30/17 at 21:00 Fentanyl (Duragesic 50mcg/ Hr Patch) 1 patch Q3DAYS TD ; Start 07/03/17 at 09: 00; Stop 07/03/17 at 09:00; Status DC Metoclopramide HCl (Reglan) 5 mg QIDAFTMEAL PO Last administered on 07/02/17 08:47; Start 06/30/17 at 18:00 Ondansetron HCl (Zofran Odt) 4 mg QIDPRN PRN PEG NAUSEA/VOMITING; Start at 14:15 Oxycodone/ Acetaminophen (Percocet 7.5/ 325) 1 tab PRN QID PRN PO PAIN Last administered on 07/02/17 05:35; Start 06/30/17 at 14:15 Pantoprazole Sodium (Protonix) 40 mg BIDAC PO ; Start 06/30/17 at 16:30; Stop 06/30/17 at 16:49; Status DC Albuterol Sulfate (Ventolin Neb Soln) 2.5 mg PRN Q4HRS PRN NEB SHORTNESS OF BREATH Last administered on 06/30/17 16:17; Start 06/30/17 at 14:45 Atenolol (Tenormin) 50 mg DAILY PEG Last administered on 07/02/17 08:47; Start 07/01/17 at 09:00 Cyproheptadine HCl (Periactin) 2 mg BID PEG Last administered on 07/02/17 08: 46; Start 06/30/17 at 21:00 Losartan Potassium (Cozaar) 100 mg DAILY PO Last administered on 07/02/17 08: 46; Start 07/01/17 at 09:00 Chlorthalidone (Thalitone) 25 mg DAILY PEG Last administered on 07/02/17 08: 47; Start 07/01/17 at 09:00 Lansoprazole (Prevacid) 30 mg BIDBFRMEAL FT Last administered on 07/02/17 08: 47; Start 07/01/17 at 07:30 Piperacillin Sod/ Tazobactam Sod (Zosyn Per Pharmacy) 1 each PRN DAILY PRN MC SEE COMMENTS; Start 06/30/17 at 21:00; Stop 06/30/17 at 21:00; Status DC Piperacillin Sod/ Tazobactam Sod (Zosyn Per Pharmacy) 1 each PRN DAILY PRN MC SEE COMMENTS; Start 06/30/17 at 18:00; Stop 07/01/17 at 09:25; Status DC Piperacillin Sod/ Tazobactam Sod 2.25 gm/Sodium Chloride 50 ml @ 100 mls/hr Q6HRS IV Last administered on 07/01/17 05:47; Start 06/30/17 at 18:30; Stop 07/01/17 at 09:25; Status DC Linezolid 300 ml @ 300 mls/hr Q12HR IV Last administered on 07/02/17 08:48; Start 06/30/17 at 19:30 Albuterol/ Ipratropium (Duoneb) 3 ml RTQID NEB Last administered on 07/02/17 11:04; Start 06/30/17 at 20:00 Scopolamine (Transderm-Scop) 1 patch Q3DAYS TD Last administered on 06/30/17 23:33; Start 06/30/17 at 22:00 Furosemide (Lasix) 20 mg 1X ONCE IVP Last administered on 06/30/17 23:25; Start 06/30/17 at 22:00; Stop 06/30/17 at 22:01; Status DC Fentanyl (Duragesic 50mcg/ Hr Patch) 1 patch Q3DAYS TD Last administered on 09:04; Start 07/01/17 at 09:00 Meropenem 1 gm/ Sodium Chloride 100 ml @ 200 mls/hr Q12HR IV Last administered on 07/02/17 08:48; Start 07/01/17 at 10:00 Active Scripts Active Reported Diovan (Valsartan) 160 Mg Tablet 160 Mg PEG DAILY Pantoprazole Sodium 40 Mg Tablet.dr 40 Mg PEG BID Donepezil Hcl 5 Mg Tablet 5 Mg PEG BID Reglan (Metoclopramide Hcl) 10 Mg Tablet 5 Mg PO QIDAFTMEAL Atenolol-Chlorthal 50-25 Tb (Atenolol/Chlorthalidone) 1 Each Tablet 1 Tab PEG DAILY Cyproheptadine Hcl 2 Mg/5 Ml Syrup 2 Mg PEG BID Percocet 7.5-325 Mg Tablet (Oxycodone/Acetaminophen) 1 Each Tablet 1 Tab PO QID PRN Proair Hfa Inhaler (Albuterol Sulfate) 8.5 Gm Hfa.aer.ad 2 Puff IH PRN Q4-6HRS FENTANYL 50mcg/hr (Fentanyl) 1 Each Patch.td72 1 Patch TP Q3DAYS Ondansetron Odt (Ondansetron) 4 Mg Tab.rapdis 4 Mg PEG QIDPRN PRN Vitals/I & O Vital Sign - Last 24 Hours 07/01/17 07/01/17 07/01/17 07/01/17 15:00 15:35 19:00 20:00 Temp 97.7 96.4 97.7 96.4 Pulse 92 80 Resp 18 18 B/P (MAP) 133/65 (87) 157/71 (99) Pulse Ox 98 92 98 O2 Delivery Tracheal Collar ap neb Tracheal Collar Trach Collar O2 Flow Rate 4.0 8.0 4.0 07/01/17 07/01/17 07/01/17 07/01/17 20:36 21:02 22:02 22:58 Temp 97.7 97.7 Pulse 89 Resp 18 B/P (MAP) 116/53 (74) Pulse Ox 92 93 O2 Delivery ap neb Tracheal Collar Tracheal Collar Tracheal Collar O2 Flow Rate 8.0 4.0 07/02/17 07/02/17 07/02/17 07/02/17 03:33 05:35 07:30 07:32 Temp 97.9 98.6 97.9 98.6 Pulse 82 85 Resp 22 18 B/P (MAP) 153/75 (101) 152/83 (106) Pulse Ox 90 90 92 O2 Delivery Tracheal Collar Tracheal Collar Tracheal Collar ap neb O2 Flow Rate 10.0 8.0 07/02/17 07/02/17 07/02/17 07/02/17 08:00 08:46 08:47 10:30 Temp 98.5 98.5 Pulse 85 85 81 Resp 18 B/P (MAP) 152/83 152/83 131/75 (93) Pulse Ox 90 O2 Delivery Trach Collar Tracheal Collar O2 Flow Rate 10.0 10.0 07/02/17 11:05 Pulse Ox 92 O2 Delivery ap neb O2 Flow Rate 8.0 Intake and Output 07/02/17 07/02/17 07/03/17 15:00 23:00 07:00 Output Total 501 ml Balance -501 ml Nutrition Consultation Dietary Evaluation: Comments: continue TF for total nutrition Expected Outcomes/Goals: to meet > 75% est nutr needs Malnutrition Findings: Body Fat Depletion (Non Severe: Mild Depletion Weight Status: Appropriate JAVIER IRVIN MD Jul 02, 2017 14:00
[2017-07-02 14:39] VITALS: BP 156/82
--- NOTE | 2017-07-02 16:08 | RAD ---
Tagged with blood cell scan 07/02/2017 Indication: Hematochezia Comparison study: None Discussion: Imaging over the abdomen was performed following the administration of the patient's own red blood cells labeled with technetium 99 (UltraTag protocol). No abnormal accumulation of radiotracer suggesting active gastrointestinal hemorrhage is identified. No other abnormal radiotracer uptake is appreciated. Impression: No evidence of active gastrointestinal hemorrhage
--- NOTE | 2017-07-02 17:52 | PDOC ---
PULMONARY PROGRESS NOTES Subjective PT MORE RESPONSIVE THAN YESTERDAY NOT MORE SOA Vitals Vital Signs Date Time Temp Pulse Resp B/P (MAP) Pulse Ox O2 Delivery O2 Flow Rate FiO2 07/02/17 14:39 97.8 77 17 156/82 (106) 96 Tracheal Collar 10.0 97.8 ROS: No Nausea, No Chest Pain, No Abdominal Pain, No Increase Cough General: Alert Lungs: Crackles, Other Cardiovascular: S1, S2 Abdomen: Soft, Non-tender, Other Neuro Exam: Alert Extremities: No Edema Skin: Warm Labs Laboratory Tests Test 07/01/17 09:50 07/02/17 04:40 07/02/17 12:50 White Blood Count 14.0 x10^3/uL (4.0-11.0) 16.4 x10^3/uL (4.0-11.0) Red Blood Count 4.28 x10^6/uL (3.50-5.40) 4.13 x10^6/uL (3.50-5.40) Hemoglobin 10.6 g/dL (12.0-15.5) 10.2 g/dL (12.0-15.5) Hematocrit 34.0 % (36.0-47.0) 33.1 % (36.0-47.0) Mean Corpuscular Volume 80 fL (79-100) 80 fL (79-100) Mean Corpuscular Hemoglobin 25 pg (25-35) 25 pg (25-35) Mean Corpuscular Hemoglobin Concent 31 g/dL (31-37) 31 g/dL (31-37) Red Cell Distribution Width 18.2 % (11.5-14.5) 17.5 % (11.5-14.5) Platelet Count 364 x10^3/uL (140-400) 367 x10^3/uL (140-400) Neutrophils (%) (Auto) 76 % (31-73) 75 % (31-73) Lymphocytes (%) (Auto) 14 % (24-48) 16 % (24-48) Monocytes (%) (Auto) 9 % (0-9) 6 % (0-9) Eosinophils (%) (Auto) 2 % (0-3) 3 % (0-3) Basophils (%) (Auto) 0 % (0-3) 1 % (0-3) Neutrophils # (Auto) 10.6 x10^3uL (1.8-7.7) 12.3 x10^3uL (1.8-7.7) Lymphocytes # (Auto) 1.9 x10^3/uL (1.0-4.8) 2.6 x10^3/uL (1.0-4.8) Monocytes # (Auto) 1.2 x10^3/uL (0.0-1.1) 1.1 x10^3/uL (0.0-1.1) Eosinophils # (Auto) 0.2 x10^3/uL (0.0-0.7) 0.4 x10^3/uL (0.0-0.7) Basophils # (Auto) 0.1 x10^3/uL (0.0-0.2) 0.1 x10^3/uL (0.0-0.2) Sodium Level 141 mmol/L (136-145) 142 mmol/L (136-145) Potassium Level 3.7 mmol/L (3.5-5.1) 4.0 mmol/L (3.5-5.1) Chloride Level 101 mmol/L (98-107) 103 mmol/L (98-107) Carbon Dioxide Level 37 mmol/L (21-32) 32 mmol/L (21-32) Anion Gap 3 (6-14) 7 (6-14) Blood Urea Nitrogen 43 mg/dL (7-20) 29 mg/dL (7-20) Creatinine 1.5 mg/dL (0.6-1.0) 1.1 mg/dL (0.6-1.0) Estimated GFR (Cockcroft-Gault) 40.9 58.4 Glucose Level 144 mg/dL (70-99) 93 mg/dL (70-99) Calcium Level 8.5 mg/dL (8.5-10.1) 9.1 mg/dL (8.5-10.1) Stool Occult Blood Negative (NEG) Laboratory Tests Test 07/02/17 04:40 07/02/17 12:50 White Blood Count 16.4 x10^3/uL (4.0-11.0) Red Blood Count 4.13 x10^6/uL (3.50-5.40) Hemoglobin 10.2 g/dL (12.0-15.5) Hematocrit 33.1 % (36.0-47.0) Mean Corpuscular Volume 80 fL (79-100) Mean Corpuscular Hemoglobin 25 pg (25-35) Mean Corpuscular Hemoglobin Concent 31 g/dL (31-37) Red Cell Distribution Width 17.5 % (11.5-14.5) Platelet Count 367 x10^3/uL (140-400) Neutrophils (%) (Auto) 75 % (31-73) Lymphocytes (%) (Auto) 16 % (24-48) Monocytes (%) (Auto) 6 % (0-9) Eosinophils (%) (Auto) 3 % (0-3) Basophils (%) (Auto) 1 % (0-3) Neutrophils # (Auto) 12.3 x10^3uL (1.8-7.7) Lymphocytes # (Auto) 2.6 x10^3/uL (1.0-4.8) Monocytes # (Auto) 1.1 x10^3/uL (0.0-1.1) Eosinophils # (Auto) 0.4 x10^3/uL (0.0-0.7) Basophils # (Auto) 0.1 x10^3/uL (0.0-0.2) Sodium Level 142 mmol/L (136-145) Potassium Level 4.0 mmol/L (3.5-5.1) Chloride Level 103 mmol/L (98-107) Carbon Dioxide Level 32 mmol/L (21-32) Anion Gap 7 (6-14) Blood Urea Nitrogen 29 mg/dL (7-20) Creatinine 1.1 mg/dL (0.6-1.0) Estimated GFR (Cockcroft-Gault) 58.4 Glucose Level 93 mg/dL (70-99) Calcium Level 9.1 mg/dL (8.5-10.1) Stool Occult Blood Negative (NEG) Medications Active Scripts Medications Dose Route/Sig Max Daily Dose Days Date Category Diovan (Valsartan) 160 Mg Tablet 160 Mg PEG DAILY 03/11/17 Reported Pantoprazole Sodium 40 Mg Tablet.dr 40 Mg PEG BID 03/11/17 Reported Donepezil Hcl 5 Mg Tablet 5 Mg PEG BID 03/11/17 Reported Reglan (Metoclopramide Hcl) 10 Mg Tablet 5 Mg PO QIDAFTMEAL 03/11/17 Reported Atenolol-Chlorthal 50-25 Tb (Atenolol/Chlorthalidone) 1 Each Tablet 1 Tab PEG DAILY 03/11/17 Reported Cyproheptadine Hcl 2 Mg/5 Ml Syrup 2 Mg PEG BID 03/11/17 Reported Percocet 7.5-325 Mg Tablet (Oxycodone/Acetaminophen) 1 Each Tablet 1 Tab PO QID PRN 03/11/17 Reported Proair Hfa Inhaler (Albuterol Sulfate) 8.5 Gm Hfa.aer.ad 2 Puff IH PRN Q4-6HRS 08/16/15 Reported FENTANYL 50mcg/hr (Fentanyl) 1 Each Patch.td72 1 Patch TP Q3DAYS 06/19/14 Reported Ondansetron Odt (Ondansetron) 4 Mg Tab.rapdis 4 Mg PEG QIDPRN PRN 06/19/14 Reported Impression . 1. Acute on chronic respiratory failure, multifactorial. 2. Gram-negative and gram-positive pneumonia. 3. Abnormal x-ray compatible with the above. 4. 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 5. History of Pseudomonas and methicillin-resistant Staphylococcus aureus pneumonia. 6. Possible Aspiration PN Plan . CONTINUE THE SAME d/w DNR WITH PT SHE WISHES TO BE RESUSCITATED 1. I recommend continue oxygen supplementation. 2. Broad antibiotics will cover both gram negative such as Pseudomonas and gram-positive. 3. Continue tube feeding. ANURAG LOO MD Jul 02, 2017 17:52
[2017-07-02 19:00] VITALS: BP 156/68
[2017-07-02] MEDS: metroNIDAZOLE 500 MG TABLET PO SCH (20:57)
[2017-07-02] MEDS: LACTOBACILLUS RHAMNOSUS GG 1 CAPSULE. PO SCH (20:57)
[2017-07-02] MEDS: IV NORMAL SALINE 1000ML BAG 1,000 ML IV SCH (20:58)
[2017-07-02 23:00] VITALS: BP 155/67
[2017-07-03 03:00] VITALS: BP 175/77
[2017-07-03] MEDS: metroNIDAZOLE 500 MG TABLET PO SCH (04:51)
[2017-07-03 06:26] LABS: BASO # 0.2 x10^3/uL (0.0-0.2); BASO % 1 % (0-3); EOS % 3 % (0-3); HEMOGLOBIN 10.5 g/dL (12.0-15.5); LYMPH # 2.6 x10^3/uL (1.0-4.8); LYMPH % 18 % (24-48); MEAN CORPUSCULAR HEMOGLOBIN 25 pg (25-35); MEAN CORPUSCULAR HGB CONC 31 g/dL (31-37); MEAN CORPUSCULAR VOLUME 81 fL (79-100); MONO % 6 % (0-9); NEUT % 72 % (31-73); PLATELET COUNT 341 x10^3/uL (140-400); RED BLOOD COUNT 4.18 x10^6/uL (3.50-5.40); RED CELL DISTRIBUTION WIDTH 18.1 % (11.5-14.5); WHITE BLOOD COUNT 14.6 x10^3/uL (4.0-11.0)
[2017-07-03 06:44] LABS: CALCIUM 9.3 mg/dL (8.5-10.1); CREATININE 0.9 mg/dL (0.6-1.0); GFR 73.7; POTASSIUM 3.6 mmol/L (3.5-5.1)
[2017-07-03 07:00] VITALS: BP 163/81
[2017-07-03] MEDS: IPRATRPIUM/ALBUTEROL 0.5/2.5MG 3 ML NEBU. NEB SCH ×4 (07:42→19:57)
[2017-07-03] MEDS: MEROPENEM 1 GM in IV NORMAL SALINE 100ML 100 ML IV SCH ×2 (08:10→21:33)
[2017-07-03] MEDS: LANSOPRAZOLE 30 MG TAB.RAP.DR FT SCH ×2 (08:11→17:36)
[2017-07-03] MEDS: DONEPEZIL HCL 5 MG TABLET. PEG SCH ×2 (08:11→21:00)
[2017-07-03] MEDS: SCOPOLAMINE 1.5MG PATCH. TD SCH (08:11)
[2017-07-03] MEDS: CYPROHEPTADINE 4 MG TABLET. PEG SCH ×2 (08:12→21:00)
[2017-07-03] MEDS: LOSARTAN POTASSIUM 50 MG TABLET. PO SCH (08:13)
[2017-07-03] MEDS: ATENOLOL 50 MG TABLET. PEG SCH (08:13)
[2017-07-03] MEDS: CHLORTHALIDONE 25 MG TABLET. PEG SCH (08:14)
[2017-07-03] MEDS: METOCLOPRAMIDE 5 MG TABLET. PO SCH ×4 (08:14→21:00)
[2017-07-03] MEDS: oxyCODONE/APAP 7.5/325 1 TAB TABLET PO PRN ×2 (08:14→15:02)
[2017-07-03] MEDS: LACTOBACILLUS RHAMNOSUS GG 1 CAPSULE. PO SCH ×2 (08:14→21:00)
[2017-07-03] MEDS: IV NORMAL SALINE 1000ML BAG 1,000 ML IV SCH ×2 (08:15→21:17)
[2017-07-03] MEDS ORDERED: fentaNYL 50MCG/HR PATCH 1 PATCH PATCH.TD72 TD SCH (09:00)
--- NOTE | 2017-07-03 09:25 | PDOC ---
PULMONARY PROGRESS NOTES Subjective PT WITH NO SOA Vitals Vital Signs Date Time Temp Pulse Resp B/P (MAP) Pulse Ox O2 Delivery O2 Flow Rate FiO2 07/03/17 08:13 78 163/81 07/03/17 07:42 92 ap neb 8.0 07/03/17 07:00 98.3 18 98.3 ROS: No Nausea, No Chest Pain, No Abdominal Pain, No Increase Cough General: Alert Lungs: Other Cardiovascular: S1, S2 Abdomen: Soft, Non-tender, Other Neuro Exam: Alert Extremities: No Edema Skin: Warm Labs Laboratory Tests Test 07/01/17 09:50 07/02/17 04:40 07/02/17 12:50 07/03/17 05:10 White Blood Count 14.0 x10^3/uL (4.0-11.0) 16.4 x10^3/uL (4.0-11.0) 14.6 x10^3/uL (4.0-11.0) Red Blood Count 4.28 x10^6/uL (3.50-5.40) 4.13 x10^6/uL (3.50-5.40) 4.18 x10^6/uL (3.50-5.40) Hemoglobin 10.6 g/dL (12.0-15.5) 10.2 g/dL (12.0-15.5) 10.5 g/dL (12.0-15.5) Hematocrit 34.0 % (36.0-47.0) 33.1 % (36.0-47.0) 34.0 % (36.0-47.0) Mean Corpuscular Volume 80 fL (79-100) 80 fL (79-100) 81 fL (79-100) Mean Corpuscular Hemoglobin 25 pg (25-35) 25 pg (25-35) 25 pg (25-35) Mean Corpuscular Hemoglobin Concent 31 g/dL (31-37) 31 g/dL (31-37) 31 g/dL (31-37) Red Cell Distribution Width 18.2 % (11.5-14.5) 17.5 % (11.5-14.5) 18.1 % (11.5-14.5) Platelet Count 364 x10^3/uL (140-400) 367 x10^3/uL (140-400) 341 x10^3/uL (140-400) Neutrophils (%) (Auto) 76 % (31-73) 75 % (31-73) 72 % (31-73) Lymphocytes (%) (Auto) 14 % (24-48) 16 % (24-48) 18 % (24-48) Monocytes (%) (Auto) 9 % (0-9) 6 % (0-9) 6 % (0-9) Eosinophils (%) (Auto) 2 % (0-3) 3 % (0-3) 3 % (0-3) Basophils (%) (Auto) 0 % (0-3) 1 % (0-3) 1 % (0-3) Neutrophils # (Auto) 10.6 x10^3uL (1.8-7.7) 12.3 x10^3uL (1.8-7.7) 10.5 x10^3uL (1.8-7.7) Lymphocytes # (Auto) 1.9 x10^3/uL (1.0-4.8) 2.6 x10^3/uL (1.0-4.8) 2.6 x10^3/uL (1.0-4.8) Monocytes # (Auto) 1.2 x10^3/uL (0.0-1.1) 1.1 x10^3/uL (0.0-1.1) 0.9 x10^3/uL (0.0-1.1) Eosinophils # (Auto) 0.2 x10^3/uL (0.0-0.7) 0.4 x10^3/uL (0.0-0.7) 0.5 x10^3/uL (0.0-0.7) Basophils # (Auto) 0.1 x10^3/uL (0.0-0.2) 0.1 x10^3/uL (0.0-0.2) 0.2 x10^3/uL (0.0-0.2) Sodium Level 141 mmol/L (136-145) 142 mmol/L (136-145) 139 mmol/L (136-145) Potassium Level 3.7 mmol/L (3.5-5.1) 4.0 mmol/L (3.5-5.1) 3.6 mmol/L (3.5-5.1) Chloride Level 101 mmol/L (98-107) 103 mmol/L (98-107) 101 mmol/L (98-107) Carbon Dioxide Level 37 mmol/L (21-32) 32 mmol/L (21-32) 31 mmol/L (21-32) Anion Gap 3 (6-14) 7 (6-14) 7 (6-14) Blood Urea Nitrogen 43 mg/dL (7-20) 29 mg/dL (7-20) 15 mg/dL (7-20) Creatinine 1.5 mg/dL (0.6-1.0) 1.1 mg/dL (0.6-1.0) 0.9 mg/dL (0.6-1.0) Estimated GFR (Cockcroft-Gault) 40.9 58.4 73.7 Glucose Level 144 mg/dL (70-99) 93 mg/dL (70-99) 84 mg/dL (70-99) Calcium Level 8.5 mg/dL (8.5-10.1) 9.1 mg/dL (8.5-10.1) 9.3 mg/dL (8.5-10.1) Stool Occult Blood Negative (NEG) Clostridium difficile Toxin (PCR) Positive (Negative) Laboratory Tests Test 07/02/17 12:50 07/03/17 05:10 Stool Occult Blood Negative (NEG) Clostridium difficile Toxin (PCR) Positive (Negative) White Blood Count 14.6 x10^3/uL (4.0-11.0) Red Blood Count 4.18 x10^6/uL (3.50-5.40) Hemoglobin 10.5 g/dL (12.0-15.5) Hematocrit 34.0 % (36.0-47.0) Mean Corpuscular Volume 81 fL (79-100) Mean Corpuscular Hemoglobin 25 pg (25-35) Mean Corpuscular Hemoglobin Concent 31 g/dL (31-37) Red Cell Distribution Width 18.1 % (11.5-14.5) Platelet Count 341 x10^3/uL (140-400) Neutrophils (%) (Auto) 72 % (31-73) Lymphocytes (%) (Auto) 18 % (24-48) Monocytes (%) (Auto) 6 % (0-9) Eosinophils (%) (Auto) 3 % (0-3) Basophils (%) (Auto) 1 % (0-3) Neutrophils # (Auto) 10.5 x10^3uL (1.8-7.7) Lymphocytes # (Auto) 2.6 x10^3/uL (1.0-4.8) Monocytes # (Auto) 0.9 x10^3/uL (0.0-1.1) Eosinophils # (Auto) 0.5 x10^3/uL (0.0-0.7) Basophils # (Auto) 0.2 x10^3/uL (0.0-0.2) Sodium Level 139 mmol/L (136-145) Potassium Level 3.6 mmol/L (3.5-5.1) Chloride Level 101 mmol/L (98-107) Carbon Dioxide Level 31 mmol/L (21-32) Anion Gap 7 (6-14) Blood Urea Nitrogen 15 mg/dL (7-20) Creatinine 0.9 mg/dL (0.6-1.0) Estimated GFR (Cockcroft-Gault) 73.7 Glucose Level 84 mg/dL (70-99) Calcium Level 9.3 mg/dL (8.5-10.1) Medications Active Scripts Medications Dose Route/Sig Max Daily Dose Days Date Category Diovan (Valsartan) 160 Mg Tablet 160 Mg PEG DAILY 03/11/17 Reported Pantoprazole Sodium 40 Mg Tablet.dr 40 Mg PEG BID 03/11/17 Reported Donepezil Hcl 5 Mg Tablet 5 Mg PEG BID 03/11/17 Reported Reglan (Metoclopramide Hcl) 10 Mg Tablet 5 Mg PO QIDAFTMEAL 03/11/17 Reported Atenolol-Chlorthal 50-25 Tb (Atenolol/Chlorthalidone) 1 Each Tablet 1 Tab PEG DAILY 03/11/17 Reported Cyproheptadine Hcl 2 Mg/5 Ml Syrup 2 Mg PEG BID 03/11/17 Reported Percocet 7.5-325 Mg Tablet (Oxycodone/Acetaminophen) 1 Each Tablet 1 Tab PO QID PRN 03/11/17 Reported Proair Hfa Inhaler (Albuterol Sulfate) 8.5 Gm Hfa.aer.ad 2 Puff IH PRN Q4-6HRS 08/16/15 Reported FENTANYL 50mcg/hr (Fentanyl) 1 Each Patch.td72 1 Patch TP Q3DAYS 06/19/14 Reported Ondansetron Odt (Ondansetron) 4 Mg Tab.rapdis 4 Mg PEG QIDPRN PRN 06/19/14 Reported Impression . 1. Acute on chronic respiratory failure, multifactorial. 2. Suspected Gram-negative and gram-positive pneumonia. 3. Abnormal x-ray compatible with the above. 4. 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 5. History of Pseudomonas and methicillin-resistant Staphylococcus aureus pneumonia. 6. Possible Aspiration PN Plan . CONTINUE THE SAME d/w DNR WITH PT SHE WISHES TO BE RESUSCITATED 1. I recommend continue oxygen supplementation. 2. Broad antibiotics will cover both gram negative such as Pseudomonas and gram-positive. 3. Continue tube feeding. 4. repeat CXR in few days MARY LANIER MD Jul 03, 2017 09:25
--- NOTE | 2017-07-03 09:53 | PDOC ---
Subjective: Subjective: Denies further bleeding, would like to restart feeds. Objective: Vital Signs: Vital Signs Date Time Temp Pulse Resp B/P (MAP) Pulse Ox O2 Delivery O2 Flow Rate FiO2 07/03/17 08:13 78 163/81 07/03/17 07:42 92 ap neb 8.0 07/03/17 07:00 98.3 18 98.3 Labs: Laboratory Tests Test 07/02/17 12:50 07/03/17 05:10 Stool Occult Blood Negative Clostridium difficile Toxin (PCR) Positive White Blood Count 14.6 x10^3/uL Red Blood Count 4.18 x10^6/uL Hemoglobin 10.5 g/dL Hematocrit 34.0 % Mean Corpuscular Volume 81 fL Mean Corpuscular Hemoglobin 25 pg Mean Corpuscular Hemoglobin Concent 31 g/dL Red Cell Distribution Width 18.1 % Platelet Count 341 x10^3/uL Neutrophils (%) (Auto) 72 % Lymphocytes (%) (Auto) 18 % Monocytes (%) (Auto) 6 % Eosinophils (%) (Auto) 3 % Basophils (%) (Auto) 1 % Neutrophils # (Auto) 10.5 x10^3uL Lymphocytes # (Auto) 2.6 x10^3/uL Monocytes # (Auto) 0.9 x10^3/uL Eosinophils # (Auto) 0.5 x10^3/uL Basophils # (Auto) 0.2 x10^3/uL Sodium Level 139 mmol/L Potassium Level 3.6 mmol/L Chloride Level 101 mmol/L Carbon Dioxide Level 31 mmol/L Anion Gap 7 Blood Urea Nitrogen 15 mg/dL Creatinine 0.9 mg/dL Estimated GFR (Cockcroft-Gault) 73.7 Glucose Level 84 mg/dL Calcium Level 9.3 mg/dL Imaging: GI Bleed Scan 07/02/17 Impression: No evidence of active gastrointestinal hemorrhage. PE: GEN: NAD LUNGS: trach HEART: RRR ABD: non-tender, PEG site clean NEURO/PSYCH: A & O 3 A/P: C Diff, recurrent "Bloody stools" - fecal occult negative -Hgb stable w/ normal BUN, no previous colonoscopy -on PPI Resp failure Oropharyngeal dysphagia -h/o laryngeal and lung cancer w/ trach and PEG in place -unable to replace endoscopically in 03/2017; surgery replaced at bedside -- Resume tube feeds. Continue atbx for C Diff - she is on Flagyl, would consider PO vanc. LE ROSENTHAL Jul 03, 2017 09:53
[2017-07-03 11:00] VITALS: BP 138/75
--- NOTE | 2017-07-03 11:18 | PDOC ---
Infectious Disease Note Subjective Subjective c/o abdominal pain, recent pain med Tube feeds ROS ROS GEN: Denies fevers, chills, sweats CV: Denies chest pain RESP: Denies shortness of air, cough GI: Denies n/v/d Vital Sign Vital Signs Vital Signs Date Time Temp Pulse Resp B/P (MAP) Pulse Ox O2 Delivery O2 Flow Rate FiO2 07/03/17 11:08 92 ap neb 8.0 07/03/17 08:13 78 163/81 07/03/17 07:00 98.3 18 98.3 Physical Exam PHYSICAL EXAM GENERAL: Propped up in bed, tired, weak appearance NECK: Tach shield LUNGS: Clear anteriorly HEART: S1 and S2 ABD: Soft, NT, BS active, PEG EXT: No edema, no cyanosis STEAM TABLE ATTENDANT: Awake, responds appropriately SKIN: No rash Labs Lab Laboratory Tests Test 07/02/17 12:50 07/03/17 05:10 Stool Occult Blood Negative (NEG) Clostridium difficile Toxin (PCR) Positive (Negative) White Blood Count 14.6 x10^3/uL (4.0-11.0) Red Blood Count 4.18 x10^6/uL (3.50-5.40) Hemoglobin 10.5 g/dL (12.0-15.5) Hematocrit 34.0 % (36.0-47.0) Mean Corpuscular Volume 81 fL (79-100) Mean Corpuscular Hemoglobin 25 pg (25-35) Mean Corpuscular Hemoglobin Concent 31 g/dL (31-37) Red Cell Distribution Width 18.1 % (11.5-14.5) Platelet Count 341 x10^3/uL (140-400) Neutrophils (%) (Auto) 72 % (31-73) Lymphocytes (%) (Auto) 18 % (24-48) Monocytes (%) (Auto) 6 % (0-9) Eosinophils (%) (Auto) 3 % (0-3) Basophils (%) (Auto) 1 % (0-3) Neutrophils # (Auto) 10.5 x10^3uL (1.8-7.7) Lymphocytes # (Auto) 2.6 x10^3/uL (1.0-4.8) Monocytes # (Auto) 0.9 x10^3/uL (0.0-1.1) Eosinophils # (Auto) 0.5 x10^3/uL (0.0-0.7) Basophils # (Auto) 0.2 x10^3/uL (0.0-0.2) Sodium Level 139 mmol/L (136-145) Potassium Level 3.6 mmol/L (3.5-5.1) Chloride Level 101 mmol/L (98-107) Carbon Dioxide Level 31 mmol/L (21-32) Anion Gap 7 (6-14) Blood Urea Nitrogen 15 mg/dL (7-20) Creatinine 0.9 mg/dL (0.6-1.0) Estimated GFR (Cockcroft-Gault) 73.7 Glucose Level 84 mg/dL (70-99) Calcium Level 9.3 mg/dL (8.5-10.1) Micro BLOOD CULTURE Preliminary NO GROWTH AFTER 2 DAYS Objective Assessment + C. diff 07/02 Acute resp failure ? aspiration Leukocytosis - better SANCHEZ - better Encephalopathy - some better today Recent Ecoli as mentions above Plan Plan of Care Zyvox and meropenem Sputum cult pending Attending Co-Sign The patient was seen and interviewed as well as examined at the bedside. The chart was reviewed. The case was discussed. Agree with the plan of care. d/c zyvox, change flagyl to po ANA PAULA Chu APRN Jul 03, 2017 11:18 ASTER MATOS MD Jul 03, 2017 14:02
--- NOTE | 2017-07-03 12:42 | PDOC ---
PROGRESS NOTES Chief Complaint Chief Complaint ASpiration HIGH LIKELIHOOD, PNEUMONITIS VS PNA AMS, 2/2 above, resolved HAP, GNR ( E coli on sputum cx in may 2017) acute on chronic hypoxic and hypercapnic resp failure h/o larygneal Ca with lung meds post chemo and RT, has trach chronic Dysphagia , PEG htn COPD h/o cdiff, pos+ 07/02 h/o MRSA h/O pseudomonas PNA SANCHEZ, vasomotor CKD 3 mild malnutrition Sepsis with HAP bloody stool with neg FOBT AND neg bleeding scan plan: FU WIth Gi fobt neg, hb stable on zyvox and meropenum, fu with ID cdiff +. add flagyl po, fu with id duoneb trach collar o2 8-10L local trach care PEG feeding resume 07/03, dc IVF tmr History of Present Illness History of Present Illness ROS: no fever, chills, sob or chest pain WBC up to 16, then back to 14.6 today still need high O2 on trach collar 8-10L NO fevers ON IV zyvox and IV meropnem by pulmo and ID, respectively CXR some effusion and edema bloody stool on night of 07/01, 07/02, but neg fobt, neg bleeding scan. hb stable at 10.5 Vitals Vitals Vital Signs Date Time Temp Pulse Resp B/P (MAP) Pulse Ox O2 Delivery O2 Flow Rate FiO2 07/03/17 11:08 92 ap neb 8.0 07/03/17 11:00 97.2 69 18 138/75 (96) 97.2 Physical Exam General: Cooperative, No acute distress, Other (yellowish sputum in trach) Heart: Regular rate, Normal S1, Normal S2 Lungs: Other (bl coarse bs) Abdomen: Soft, Other (PEg in place) Extremities: Other (minimal subQ tissue) Skin: No rashes, No breakdown, No significant lesion Labs LABS Laboratory Tests Test 07/02/17 12:50 07/03/17 05:10 Stool Occult Blood Negative (NEG) Clostridium difficile Toxin (PCR) Positive (Negative) White Blood Count 14.6 x10^3/uL (4.0-11.0) Red Blood Count 4.18 x10^6/uL (3.50-5.40) Hemoglobin 10.5 g/dL (12.0-15.5) Hematocrit 34.0 % (36.0-47.0) Mean Corpuscular Volume 81 fL (79-100) Mean Corpuscular Hemoglobin 25 pg (25-35) Mean Corpuscular Hemoglobin Concent 31 g/dL (31-37) Red Cell Distribution Width 18.1 % (11.5-14.5) Platelet Count 341 x10^3/uL (140-400) Neutrophils (%) (Auto) 72 % (31-73) Lymphocytes (%) (Auto) 18 % (24-48) Monocytes (%) (Auto) 6 % (0-9) Eosinophils (%) (Auto) 3 % (0-3) Basophils (%) (Auto) 1 % (0-3) Neutrophils # (Auto) 10.5 x10^3uL (1.8-7.7) Lymphocytes # (Auto) 2.6 x10^3/uL (1.0-4.8) Monocytes # (Auto) 0.9 x10^3/uL (0.0-1.1) Eosinophils # (Auto) 0.5 x10^3/uL (0.0-0.7) Basophils # (Auto) 0.2 x10^3/uL (0.0-0.2) Sodium Level 139 mmol/L (136-145) Potassium Level 3.6 mmol/L (3.5-5.1) Chloride Level 101 mmol/L (98-107) Carbon Dioxide Level 31 mmol/L (21-32) Anion Gap 7 (6-14) Blood Urea Nitrogen 15 mg/dL (7-20) Creatinine 0.9 mg/dL (0.6-1.0) Estimated GFR (Cockcroft-Gault) 73.7 Glucose Level 84 mg/dL (70-99) Calcium Level 9.3 mg/dL (8.5-10.1) Assessment and Plan Assessmemt and Plan Problems Medical Problems: (1) CAP (community acquired pneumonia) Status: Acute (2) Dyspnea Status: Acute (3) Unspecified protein-calorie malnutrition Status: Acute Problems: Comment Review of Relevant I have reviewed the following items miko (where applicable) has been applied. Labs Laboratory Tests Test 07/02/17 04:40 07/02/17 12:50 07/03/17 05:10 White Blood Count 16.4 x10^3/uL (4.0-11.0) 14.6 x10^3/uL (4.0-11.0) Red Blood Count 4.13 x10^6/uL (3.50-5.40) 4.18 x10^6/uL (3.50-5.40) Hemoglobin 10.2 g/dL (12.0-15.5) 10.5 g/dL (12.0-15.5) Hematocrit 33.1 % (36.0-47.0) 34.0 % (36.0-47.0) Mean Corpuscular Volume 80 fL (79-100) 81 fL (79-100) Mean Corpuscular Hemoglobin 25 pg (25-35) 25 pg (25-35) Mean Corpuscular Hemoglobin Concent 31 g/dL (31-37) 31 g/dL (31-37) Red Cell Distribution Width 17.5 % (11.5-14.5) 18.1 % (11.5-14.5) Platelet Count 367 x10^3/uL (140-400) 341 x10^3/uL (140-400) Neutrophils (%) (Auto) 75 % (31-73) 72 % (31-73) Lymphocytes (%) (Auto) 16 % (24-48) 18 % (24-48) Monocytes (%) (Auto) 6 % (0-9) 6 % (0-9) Eosinophils (%) (Auto) 3 % (0-3) 3 % (0-3) Basophils (%) (Auto) 1 % (0-3) 1 % (0-3) Neutrophils # (Auto) 12.3 x10^3uL (1.8-7.7) 10.5 x10^3uL (1.8-7.7) Lymphocytes # (Auto) 2.6 x10^3/uL (1.0-4.8) 2.6 x10^3/uL (1.0-4.8) Monocytes # (Auto) 1.1 x10^3/uL (0.0-1.1) 0.9 x10^3/uL (0.0-1.1) Eosinophils # (Auto) 0.4 x10^3/uL (0.0-0.7) 0.5 x10^3/uL (0.0-0.7) Basophils # (Auto) 0.1 x10^3/uL (0.0-0.2) 0.2 x10^3/uL (0.0-0.2) Sodium Level 142 mmol/L (136-145) 139 mmol/L (136-145) Potassium Level 4.0 mmol/L (3.5-5.1) 3.6 mmol/L (3.5-5.1) Chloride Level 103 mmol/L (98-107) 101 mmol/L (98-107) Carbon Dioxide Level 32 mmol/L (21-32) 31 mmol/L (21-32) Anion Gap 7 (6-14) 7 (6-14) Blood Urea Nitrogen 29 mg/dL (7-20) 15 mg/dL (7-20) Creatinine 1.1 mg/dL (0.6-1.0) 0.9 mg/dL (0.6-1.0) Estimated GFR (Cockcroft-Gault) 58.4 73.7 Glucose Level 93 mg/dL (70-99) 84 mg/dL (70-99) Calcium Level 9.1 mg/dL (8.5-10.1) 9.3 mg/dL (8.5-10.1) Stool Occult Blood Negative (NEG) Clostridium difficile Toxin (PCR) Positive (Negative) Laboratory Tests Test 07/02/17 12:50 07/03/17 05:10 Stool Occult Blood Negative (NEG) Clostridium difficile Toxin (PCR) Positive (Negative) White Blood Count 14.6 x10^3/uL (4.0-11.0) Red Blood Count 4.18 x10^6/uL (3.50-5.40) Hemoglobin 10.5 g/dL (12.0-15.5) Hematocrit 34.0 % (36.0-47.0) Mean Corpuscular Volume 81 fL (79-100) Mean Corpuscular Hemoglobin 25 pg (25-35) Mean Corpuscular Hemoglobin Concent 31 g/dL (31-37) Red Cell Distribution Width 18.1 % (11.5-14.5) Platelet Count 341 x10^3/uL (140-400) Neutrophils (%) (Auto) 72 % (31-73) Lymphocytes (%) (Auto) 18 % (24-48) Monocytes (%) (Auto) 6 % (0-9) Eosinophils (%) (Auto) 3 % (0-3) Basophils (%) (Auto) 1 % (0-3) Neutrophils # (Auto) 10.5 x10^3uL (1.8-7.7) Lymphocytes # (Auto) 2.6 x10^3/uL (1.0-4.8) Monocytes # (Auto) 0.9 x10^3/uL (0.0-1.1) Eosinophils # (Auto) 0.5 x10^3/uL (0.0-0.7) Basophils # (Auto) 0.2 x10^3/uL (0.0-0.2) Sodium Level 139 mmol/L (136-145) Potassium Level 3.6 mmol/L (3.5-5.1) Chloride Level 101 mmol/L (98-107) Carbon Dioxide Level 31 mmol/L (21-32) Anion Gap 7 (6-14) Blood Urea Nitrogen 15 mg/dL (7-20) Creatinine 0.9 mg/dL (0.6-1.0) Estimated GFR (Cockcroft-Gault) 73.7 Glucose Level 84 mg/dL (70-99) Calcium Level 9.3 mg/dL (8.5-10.1) Microbiology 06/30/17 Blood Culture - Preliminary, Resulted NO GROWTH AFTER 2 DAYS Medications Current Medications Sodium Chloride 1,000 ml @ 1,000 mls/hr Q1H IV Last administered on t 12:18; Start 06/30/17 at 11:53; Stop 06/30/17 at 12:52; Status DC Sodium Chloride (Normal Saline Flush) 10 ml QSHIFT PRN IV AFTER MEDS AND BLOOD DRAWS; Start 06/30/17 at 12:00 Sodium Chloride (NORMAL SALINE FLUSH for STERILE FIELD) 10 ml STK-MED ONCE .ROUTE ; Start 06/30/17 at 12:44; Stop 06/30/17 at 12:45; Status DC Ceftriaxone Sodium 1 gm/ Dextrose 50 ml @ 100 mls/hr Q24H IV ; Start 07/01/17 at 14:00; Stop 07/01/17 at 14:00; Status DC Azithromycin 500 mg/Sodium Chloride 250 ml @ 250 mls/hr 1X ONCE IV ; Start at 13:15; Stop 06/30/17 at 14:14; Status UNV Ceftriaxone Sodium 50 ml @ 100 mls/hr 1X ONCE IV Last administered on 13:50; Start 06/30/17 at 13:30; Stop 06/30/17 at 13:59; Status DC Azithromycin 250 ml @ 250 mls/hr 1X ONCE IV Last administered on 06/30/17 14:25; Start 06/30/17 at 13:30; Stop 06/30/17 at 14:29; Status DC Ondansetron HCl (Zofran) 4 mg PRN Q8HRS PRN IV NAUSEA/VOMITING; Start at 13:45; Stop 06/30/17 at 14:30; Status DC Sodium Chloride 1,000 ml @ 75 mls/hr [id number] IV Last administered on 05:47; Start 06/30/17 at 14:00; Stop 07/01/17 at 13:59; Status DC Prochlorperazine Edisylate (Compazine) 10 mg PRN Q6HRS PRN IV NAUSEA/VOMITING; Start 06/30/17 at 14:15 Ondansetron HCl (Zofran) 4 mg PRN Q6HRS PRN IV NAUSEA/VOMITING Last administered on 07/01/17 22:40; Start 06/30/17 at 14:15 Donepezil HCl (Aricept) 5 mg BID PEG Last administered on 07/03/17 08:11; Start 06/30/17 at 21:00 Fentanyl (Duragesic 50mcg/ Hr Patch) 1 patch Q3DAYS TD ; Start 07/03/17 at 09: 00; Stop 07/03/17 at 09:00; Status DC Metoclopramide HCl (Reglan) 5 mg QIDAFTMEAL PO Last administered on 07/03/17 08:14; Start 06/30/17 at 18:00 Ondansetron HCl (Zofran Odt) 4 mg QIDPRN PRN PEG NAUSEA/VOMITING; Start at 14:15 Oxycodone/ Acetaminophen (Percocet 7.5/ 325) 1 tab PRN QID PRN PO PAIN Last administered on 07/03/17 08:14; Start 06/30/17 at 14:15 Pantoprazole Sodium (Protonix) 40 mg BIDAC PO ; Start 06/30/17 at 16:30; Stop 06/30/17 at 16:49; Status DC Albuterol Sulfate (Ventolin Neb Soln) 2.5 mg PRN Q4HRS PRN NEB SHORTNESS OF BREATH Last administered on 06/30/17 16:17; Start 06/30/17 at 14:45 Atenolol (Tenormin) 50 mg DAILY PEG Last administered on 07/03/17 08:13; Start 07/01/17 at 09:00 Cyproheptadine HCl (Periactin) 2 mg BID PEG Last administered on 07/03/17 08: 12; Start 06/30/17 at 21:00 Losartan Potassium (Cozaar) 100 mg DAILY PO Last administered on 07/03/17 08: 13; Start 07/01/17 at 09:00 Chlorthalidone (Thalitone) 25 mg DAILY PEG Last administered on 07/03/17 08: 14; Start 07/01/17 at 09:00 Lansoprazole (Prevacid) 30 mg BIDBFRMEAL FT Last administered on 07/03/17 08: 11; Start 07/01/17 at 07:30 Piperacillin Sod/ Tazobactam Sod (Zosyn Per Pharmacy) 1 each PRN DAILY PRN MC SEE COMMENTS; Start 06/30/17 at 21:00; Stop 06/30/17 at 21:00; Status DC Piperacillin Sod/ Tazobactam Sod (Zosyn Per Pharmacy) 1 each PRN DAILY PRN MC SEE COMMENTS; Start 06/30/17 at 18:00; Stop 07/01/17 at 09:25; Status DC Piperacillin Sod/ Tazobactam Sod 2.25 gm/Sodium Chloride 50 ml @ 100 mls/hr Q6HRS IV Last administered on 07/01/17 05:47; Start 06/30/17 at 18:30; Stop 07/01/17 at 09:25; Status DC Linezolid 300 ml @ 300 mls/hr Q12HR IV Last administered on 07/03/17 10:13; Start 06/30/17 at 19:30 Albuterol/ Ipratropium (Duoneb) 3 ml RTQID NEB Last administered on 07/03/17 11:03; Start 06/30/17 at 20:00 Scopolamine (Transderm-Scop) 1 patch Q3DAYS TD Last administered on 07/03/17 08:11; Start 06/30/17 at 22:00 Furosemide (Lasix) 20 mg 1X ONCE IVP Last administered on 06/30/17 23:25; Start 06/30/17 at 22:00; Stop 06/30/17 at 22:01; Status DC Fentanyl (Duragesic 50mcg/ Hr Patch) 1 patch Q3DAYS TD Last administered on 09:04; Start 07/01/17 at 09:00 Meropenem 1 gm/ Sodium Chloride 100 ml @ 200 mls/hr Q12HR IV Last administered on 07/03/17 08:10; Start 07/01/17 at 10:00 Sodium Chloride 1,000 ml @ 75 mls/hr [id number] IV Last administered on 08:15; Start 07/02/17 at 17:45 Lactobacillus Rhamnosus (Culturelle) 1 cap BID PO Last administered on 08:14; Start 07/02/17 at 21:00 Metronidazole (Flagyl) 500 mg Q8HRS PO Last administered on 07/03/17 04:51; Start 07/02/17 at 20:00 Active Scripts Active Reported Diovan (Valsartan) 160 Mg Tablet 160 Mg PEG DAILY Pantoprazole Sodium 40 Mg Tablet.dr 40 Mg PEG BID Donepezil Hcl 5 Mg Tablet 5 Mg PEG BID Reglan (Metoclopramide Hcl) 10 Mg Tablet 5 Mg PO QIDAFTMEAL Atenolol-Chlorthal 50-25 Tb (Atenolol/Chlorthalidone) 1 Each Tablet 1 Tab PEG DAILY Cyproheptadine Hcl 2 Mg/5 Ml Syrup 2 Mg PEG BID Percocet 7.5-325 Mg Tablet (Oxycodone/Acetaminophen) 1 Each Tablet 1 Tab PO QID PRN Proair Hfa Inhaler (Albuterol Sulfate) 8.5 Gm Hfa.aer.ad 2 Puff IH PRN Q4-6HRS FENTANYL 50mcg/hr (Fentanyl) 1 Each Patch.td72 1 Patch TP Q3DAYS Ondansetron Odt (Ondansetron) 4 Mg Tab.rapdis 4 Mg PEG QIDPRN PRN Vitals/I & O Vital Sign - Last 24 Hours 07/02/17 07/02/17 07/02/17 07/02/17 14:18 14:39 19:00 20:14 Temp 97.8 97.5 97.8 97.5 Pulse 77 77 Resp 17 18 B/P (MAP) 156/82 (106) 156/68 (97) Pulse Ox 96 93 O2 Delivery Tracheal Collar Tracheal Collar Trach Collar O2 Flow Rate 8.0 10.0 10.0 10.0 07/02/17 07/02/17 07/03/17 07/03/17 20:57 23:00 03:00 07:00 Temp 97.7 97.5 98.3 97.7 97.5 98.3 Pulse 76 78 78 Resp 18 18 18 B/P (MAP) 155/67 (96) 175/77 (109) 163/81 (108) Pulse Ox 96 91 94 94 O2 Delivery Tracheal Collar Tracheal Collar Room Air O2 Flow Rate 10.0 10.0 10.0 07/03/17 07/03/17 07/03/17 07/03/17 07:42 08:13 08:13 09:14 Pulse 78 78 B/P (MAP) 163/81 163/81 Pulse Ox 92 92 O2 Delivery ap neb O2 Flow Rate 8.0 8.0 07/03/17 07/03/17 11:00 11:08 Temp 97.2 97.2 Pulse 69 Resp 18 B/P (MAP) 138/75 (96) Pulse Ox 97 92 O2 Delivery Room Air ap neb O2 Flow Rate 8.0 Nutrition Consultation Dietary Evaluation: Comments: continue TF for total nutrition Expected Outcomes/Goals: to meet > 75% est nutr needs- not met, TF on hold for GI scan, resumed and bolus feeding given this am per nursing - tolerating well- goal ongoing Malnutrition Findings: Body Fat Depletion (Non Severe: Mild Depletion Weight Status: Appropriate JAVIER IRVIN MD Jul 03, 2017 12:42
[2017-07-03 15:00] VITALS: BP 133/63
[2017-07-03] MEDS: VANCOMYCIN 125 MG/2.5 ML ORAL SOLUTION. PO SCH ×2 (17:36→21:00)
[2017-07-03 19:00] VITALS: BP 178/88
[2017-07-03] MEDS ORDERED: methylPREDNISolone SOD SUCC PF 125 MG/2 ML VIAL. IV ONE (20:00)
[2017-07-03] MEDS ORDERED: FUROSEMIDE 20 MG/2 ML VIAL. IVP ONE (20:00)
--- NOTE | 2017-07-03 20:13 | RAD ---
Exam: AP portable chest History: Evaluate for aspiration, shortness of air. Comparison: June 06, 2017. Findings: Cardiac silhouette appears within normal limits for size. Tracheostomy tube is seen. Right chest port and catheter are unchanged. There is interval improvement in aeration of the right lung base. There is patchy density involving the left lower lung field. Impression: 1. Improved aeration of the right lung base. 2. Persistent patchy density involving the left lung. This is nonspecific and could represent atelectasis versus pneumonia versus aspiration. Electronically signed by: Thuan Schaefer MD (07/03/2017 8:10 PM) [facility]
[2017-07-03] MEDS: PROCHLORPERAZINE 10 MG/2 ML VIAL. IV PRN (21:14)
[2017-07-03] MEDS: ONDANSETRON PF 4 MG/2 ML VIAL. IV PRN (21:15)
[2017-07-03] MEDS: MORPHINE SULFATE 4 MG/ML DISP.SYRIN. IV PRN (21:15)
[2017-07-03 23:00] VITALS: BP 169/91
[2017-07-04] MEDS: MORPHINE SULFATE 4 MG/ML DISP.SYRIN. IV PRN ×3 (02:52→17:09)
[2017-07-04 03:00] VITALS: BP 158/83
[2017-07-04] MEDS: IPRATRPIUM/ALBUTEROL 0.5/2.5MG 3 ML NEBU. NEB SCH ×7 (03:38→23:52)
[2017-07-04 07:00] VITALS: BP 128/72
[2017-07-04] MEDS: LANSOPRAZOLE 30 MG TAB.RAP.DR FT SCH ×2 (07:30→10:38)
--- NOTE | 2017-07-04 09:14 | PDOC ---
PULMONARY PROGRESS NOTES Subjective yesterday evening, had vomiting, then increase 02 need, steroid given, bronchodilators increased to q 4hrs, now back on 02 3lpm, via tm, feels better, has occ cough, sob better, no pain Vitals Vital Signs Date Time Temp Pulse Resp B/P (MAP) Pulse Ox O2 Delivery O2 Flow Rate FiO2 07/04/17 08:15 99 ap neb 10.0 07/04/17 07:00 97.6 80 24 128/72 (90) 97.6 ROS: No Nausea, No Chest Pain, No Abdominal Pain, No Increase Cough General: Alert Lungs: Wheezing, Other (bl coarse bs) Cardiovascular: S1, S2 Abdomen: Soft, Non-tender, Other Neuro Exam: Alert Extremities: No Edema Skin: Warm Labs Laboratory Tests Test 07/02/17 12:50 07/03/17 05:10 Stool Occult Blood Negative (NEG) Clostridium difficile Toxin (PCR) Positive (Negative) White Blood Count 14.6 x10^3/uL (4.0-11.0) Red Blood Count 4.18 x10^6/uL (3.50-5.40) Hemoglobin 10.5 g/dL (12.0-15.5) Hematocrit 34.0 % (36.0-47.0) Mean Corpuscular Volume 81 fL (79-100) Mean Corpuscular Hemoglobin 25 pg (25-35) Mean Corpuscular Hemoglobin Concent 31 g/dL (31-37) Red Cell Distribution Width 18.1 % (11.5-14.5) Platelet Count 341 x10^3/uL (140-400) Neutrophils (%) (Auto) 72 % (31-73) Lymphocytes (%) (Auto) 18 % (24-48) Monocytes (%) (Auto) 6 % (0-9) Eosinophils (%) (Auto) 3 % (0-3) Basophils (%) (Auto) 1 % (0-3) Neutrophils # (Auto) 10.5 x10^3uL (1.8-7.7) Lymphocytes # (Auto) 2.6 x10^3/uL (1.0-4.8) Monocytes # (Auto) 0.9 x10^3/uL (0.0-1.1) Eosinophils # (Auto) 0.5 x10^3/uL (0.0-0.7) Basophils # (Auto) 0.2 x10^3/uL (0.0-0.2) Sodium Level 139 mmol/L (136-145) Potassium Level 3.6 mmol/L (3.5-5.1) Chloride Level 101 mmol/L (98-107) Carbon Dioxide Level 31 mmol/L (21-32) Anion Gap 7 (6-14) Blood Urea Nitrogen 15 mg/dL (7-20) Creatinine 0.9 mg/dL (0.6-1.0) Estimated GFR (Cockcroft-Gault) 73.7 Glucose Level 84 mg/dL (70-99) Calcium Level 9.3 mg/dL (8.5-10.1) Medications Active Scripts Medications Dose Route/Sig Max Daily Dose Days Date Category Diovan (Valsartan) 160 Mg Tablet 160 Mg PEG DAILY 03/11/17 Reported Pantoprazole Sodium 40 Mg Tablet.dr 40 Mg PEG BID 03/11/17 Reported Donepezil Hcl 5 Mg Tablet 5 Mg PEG BID 03/11/17 Reported Reglan (Metoclopramide Hcl) 10 Mg Tablet 5 Mg PO QIDAFTMEAL 03/11/17 Reported Atenolol-Chlorthal 50-25 Tb (Atenolol/Chlorthalidone) 1 Each Tablet 1 Tab PEG DAILY 03/11/17 Reported Cyproheptadine Hcl 2 Mg/5 Ml Syrup 2 Mg PEG BID 03/11/17 Reported Percocet 7.5-325 Mg Tablet (Oxycodone/Acetaminophen) 1 Each Tablet 1 Tab PO QID PRN 03/11/17 Reported Proair Hfa Inhaler (Albuterol Sulfate) 8.5 Gm Hfa.aer.ad 2 Puff IH PRN Q4-6HRS 08/16/15 Reported FENTANYL 50mcg/hr (Fentanyl) 1 Each Patch.td72 1 Patch TP Q3DAYS 06/19/14 Reported Ondansetron Odt (Ondansetron) 4 Mg Tab.rapdis 4 Mg PEG QIDPRN PRN 06/19/14 Reported Impression . 1. Acute on chronic respiratory failure, multifactorial. 2. Suspected Gram-negative and gram-positive pneumonia. 3. Abnormal x-ray compatible with the above. 4. 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 5. History of Pseudomonas and methicillin-resistant Staphylococcus aureus pneumonia. 6. Possible Aspiration PN 7. wheezing 8. c diff colitis Plan . CONTINUE THE SAME dr bullock discussed code status with PT SHE WISHES TO BE RESUSCITATED 1. I recommend continue oxygen supplementation. cont bronchodilator q 4hrs, add ics, 2. Broad antibiotics per id 3. restart tube feeding cautiously, dc iv fluid if tolerates tf 4. repeat CXR in few days 5. elevate hob discussed w rn, pt SUZANNE STEINER MD Jul 04, 2017 09:14
[2017-07-04] MEDS: IV NORMAL SALINE 1000ML BAG 1,000 ML IV SCH ×2 (09:45→23:05)
[2017-07-04] MEDS: ATENOLOL 50 MG TABLET. PEG SCH (10:37)
[2017-07-04] MEDS: fentaNYL 50MCG/HR PATCH 1 PATCH PATCH.TD72 TD SCH (10:37)
[2017-07-04] MEDS: LACTOBACILLUS RHAMNOSUS GG 1 CAPSULE. PO SCH ×2 (10:37→20:58)
[2017-07-04] MEDS: VANCOMYCIN 125 MG/2.5 ML ORAL SOLUTION. PO SCH ×4 (10:37→20:58)
[2017-07-04] MEDS: METOCLOPRAMIDE 5 MG TABLET. PO SCH ×4 (10:38→20:58)
[2017-07-04] MEDS: PROCHLORPERAZINE 10 MG/2 ML VIAL. IV PRN ×2 (10:38→17:06)
[2017-07-04] MEDS: DONEPEZIL HCL 5 MG TABLET. PEG SCH ×2 (10:38→20:58)
[2017-07-04] MEDS: LOSARTAN POTASSIUM 50 MG TABLET. PO SCH (10:38)
[2017-07-04] MEDS: oxyCODONE/APAP 7.5/325 1 TAB TABLET PO PRN ×2 (10:39→20:58)
[2017-07-04] MEDS: CHLORTHALIDONE 25 MG TABLET. PEG SCH (10:39)
[2017-07-04] MEDS: CYPROHEPTADINE 4 MG TABLET. PEG SCH ×2 (10:39→20:58)
[2017-07-04] MEDS: MEROPENEM 1 GM in IV NORMAL SALINE 100ML 100 ML IV SCH ×2 (10:49→20:58)
[2017-07-04 11:23] VITALS: BP 103/56
--- NOTE | 2017-07-04 14:19 | PDOC ---
PROGRESS NOTES Chief Complaint Chief Complaint Aspiration, PNEUMONITIS VS PNA and sepsis acute metabolic encephalopathy improved HAP, GNR ( E coli on sputum cx in may 2017) acute on chronic hypoxic and hypercapnic respiratory failure h/o larygneal Ca with lung meds post chemo and RT, has trach chronic Dysphagia , PEG COPD h/o cdiff, pos+ 07/02 h/o MRSA h/O pseudomonas PNA SANCHEZ, vasomotor on CKD 3 mild malnutrition POA History of Present Illness History of Present Illness plan: FU WIth Gi fobt neg, hb stable on zyvox and meropenum, fu with ID cdiff +. add flagyl po, fu with id duoneb trach collar o2 8-10L local trach care PEG feeding resume 07/03, dc IVF tmr Vitals Vitals Vital Signs Date Time Temp Pulse Resp B/P (MAP) Pulse Ox O2 Delivery O2 Flow Rate FiO2 07/04/17 13:43 20 97 Tracheal Collar 3.0 07/04/17 11:23 97.5 102 103/56 (72) 97.5 Physical Exam General: Cooperative, No acute distress, Other (yellowish sputum in trach) Heart: Regular rate, Normal S1, Normal S2 Lungs: Wheezing, Other (bl coarse bs) Abdomen: Soft, Other (PEg in place) Extremities: Other (minimal subQ tissue) Skin: No rashes, No breakdown, No significant lesion Review of Systems Review of Systems ROS: no fever, chills, sob or chest pain WBC ok still need high O2 on trach collar 3 liters at baseline, cont IV abx NO fevers ON IV zyvox and IV meropnem by pulmo and ID, Assessment and Plan Assessmemt and Plan consider DC soon, Problems Medical Problems: (1) CAP (community acquired pneumonia) Status: Acute (2) Dyspnea Status: Acute (3) Unspecified protein-calorie malnutrition Status: Acute Problems: Comment Review of Relevant I have reviewed the following items miko (where applicable) has been applied. Labs Laboratory Tests Test 07/03/17 05:10 White Blood Count 14.6 x10^3/uL (4.0-11.0) Red Blood Count 4.18 x10^6/uL (3.50-5.40) Hemoglobin 10.5 g/dL (12.0-15.5) Hematocrit 34.0 % (36.0-47.0) Mean Corpuscular Volume 81 fL (79-100) Mean Corpuscular Hemoglobin 25 pg (25-35) Mean Corpuscular Hemoglobin Concent 31 g/dL (31-37) Red Cell Distribution Width 18.1 % (11.5-14.5) Platelet Count 341 x10^3/uL (140-400) Neutrophils (%) (Auto) 72 % (31-73) Lymphocytes (%) (Auto) 18 % (24-48) Monocytes (%) (Auto) 6 % (0-9) Eosinophils (%) (Auto) 3 % (0-3) Basophils (%) (Auto) 1 % (0-3) Neutrophils # (Auto) 10.5 x10^3uL (1.8-7.7) Lymphocytes # (Auto) 2.6 x10^3/uL (1.0-4.8) Monocytes # (Auto) 0.9 x10^3/uL (0.0-1.1) Eosinophils # (Auto) 0.5 x10^3/uL (0.0-0.7) Basophils # (Auto) 0.2 x10^3/uL (0.0-0.2) Sodium Level 139 mmol/L (136-145) Potassium Level 3.6 mmol/L (3.5-5.1) Chloride Level 101 mmol/L (98-107) Carbon Dioxide Level 31 mmol/L (21-32) Anion Gap 7 (6-14) Blood Urea Nitrogen 15 mg/dL (7-20) Creatinine 0.9 mg/dL (0.6-1.0) Estimated GFR (Cockcroft-Gault) 73.7 Glucose Level 84 mg/dL (70-99) Calcium Level 9.3 mg/dL (8.5-10.1) Microbiology 06/30/17 Blood Culture - Preliminary, Resulted NO GROWTH AFTER 3 DAYS 07/02/17 - Final, Resulted 07/02/17 - Final, Resulted 07/02/17 - Final, Resulted 07/02/17 Gram Stain Evaluation - Final, Resulted 07/02/17 Sputum Culture - Preliminary, Resulted 07/02/17 Sputum Result 1 - Final, Resulted Medications Current Medications Sodium Chloride 1,000 ml @ 1,000 mls/hr Q1H IV Last administered on t 12:18; Start 06/30/17 at 11:53; Stop 06/30/17 at 12:52; Status DC Sodium Chloride (Normal Saline Flush) 10 ml QSHIFT PRN IV AFTER MEDS AND BLOOD DRAWS; Start 06/30/17 at 12:00 Sodium Chloride (NORMAL SALINE FLUSH for STERILE FIELD) 10 ml STK-MED ONCE .ROUTE ; Start 06/30/17 at 12:44; Stop 06/30/17 at 12:45; Status DC Ceftriaxone Sodium 1 gm/ Dextrose 50 ml @ 100 mls/hr Q24H IV ; Start 07/01/17 at 14:00; Stop 07/01/17 at 14:00; Status DC Azithromycin 500 mg/Sodium Chloride 250 ml @ 250 mls/hr 1X ONCE IV ; Start at 13:15; Stop 06/30/17 at 14:14; Status UNV Ceftriaxone Sodium 50 ml @ 100 mls/hr 1X ONCE IV Last administered on 13:50; Start 06/30/17 at 13:30; Stop 06/30/17 at 13:59; Status DC Azithromycin 250 ml @ 250 mls/hr 1X ONCE IV Last administered on 06/30/17t 14:25; Start 06/30/17 at 13:30; Stop 06/30/17 at 14:29; Status DC Ondansetron HCl (Zofran) 4 mg PRN Q8HRS PRN IV NAUSEA/VOMITING; Start at 13:45; Stop 06/30/17 at 14:30; Status DC Sodium Chloride 1,000 ml @ 75 mls/hr [id number] IV Last administered on 05:47; Start 06/30/17 at 14:00; Stop 07/01/17 at 13:59; Status DC Prochlorperazine Edisylate (Compazine) 10 mg PRN Q6HRS PRN IV NAUSEA/VOMITING Last administered on 07/04/17t 10:38; Start 06/30/17 at 14:15 Ondansetron HCl (Zofran) 4 mg PRN Q6HRS PRN IV NAUSEA/VOMITING Last administered on 07/03/17 21:15; Start 06/30/17 at 14:15 Donepezil HCl (Aricept) 5 mg BID PEG Last administered on 07/04/17 10:38; Start 06/30/17 at 21:00 Fentanyl (Duragesic 50mcg/ Hr Patch) 1 patch Q3DAYS TD ; Start 07/03/17 at 09: 00; Stop 07/03/17 at 09:00; Status DC Metoclopramide HCl (Reglan) 5 mg QIDAFTMEAL PO Last administered on 07/04/17 12:59; Start 06/30/17 at 18:00 Ondansetron HCl (Zofran Odt) 4 mg QIDPRN PRN PEG NAUSEA/VOMITING; Start at 14:15 Oxycodone/ Acetaminophen (Percocet 7.5/ 325) 1 tab PRN QID PRN PO PAIN Last administered on 07/04/17 10:39; Start 06/30/17 at 14:15 Pantoprazole Sodium (Protonix) 40 mg BIDAC PO ; Start 06/30/17 at 16:30; Stop 06/30/17 at 16:49; Status DC Albuterol Sulfate (Ventolin Neb Soln) 2.5 mg PRN Q4HRS PRN NEB SHORTNESS OF BREATH Last administered on 06/30/17 16:17; Start 06/30/17 at 14:45 Atenolol (Tenormin) 50 mg DAILY PEG Last administered on 07/04/17 10:37; Start 07/01/17 at 09:00 Cyproheptadine HCl (Periactin) 2 mg BID PEG Last administered on 07/04/17 10: 39; Start 06/30/17 at 21:00 Losartan Potassium (Cozaar) 100 mg DAILY PO Last administered on 07/04/17 10: 38; Start 07/01/17 at 09:00 Chlorthalidone (Thalitone) 25 mg DAILY PEG Last administered on 07/04/17 10: 39; Start 07/01/17 at 09:00 Lansoprazole (Prevacid) 30 mg BIDBFRMEAL FT Last administered on 07/04/17 10: 38; Start 07/01/17 at 07:30; Stop 07/04/17 at 13:20; Status DC Piperacillin Sod/ Tazobactam Sod (Zosyn Per Pharmacy) 1 each PRN DAILY PRN MC SEE COMMENTS; Start 06/30/17 at 21:00; Stop 06/30/17 at 21:00; Status DC Piperacillin Sod/ Tazobactam Sod (Zosyn Per Pharmacy) 1 each PRN DAILY PRN MC SEE COMMENTS; Start 06/30/17 at 18:00; Stop 07/01/17 at 09:25; Status DC Piperacillin Sod/ Tazobactam Sod 2.25 gm/Sodium Chloride 50 ml @ 100 mls/hr Q6HRS IV Last administered on 07/01/17 05:47; Start 06/30/17 at 18:30; Stop 07/01/17 at 09:25; Status DC Linezolid 300 ml @ 300 mls/hr Q12HR IV Last administered on 07/03/17 10:13; Start 06/30/17 at 19:30; Stop 07/03/17 at 14:01; Status DC Albuterol/ Ipratropium (Duoneb) 3 ml RTQID NEB Last administered on 07/03/17 16:27; Start 06/30/17 at 20:00; Stop 07/03/17 at 19:53; Status DC Scopolamine (Transderm-Scop) 1 patch Q3DAYS TD Last administered on 07/03/17 08:11; Start 06/30/17 at 22:00 Furosemide (Lasix) 20 mg 1X ONCE IVP Last administered on 06/30/17 23:25; Start 06/30/17 at 22:00; Stop 06/30/17 at 22:01; Status DC Fentanyl (Duragesic 50mcg/ Hr Patch) 1 patch Q3DAYS TD Last administered on 10:37; Start 07/01/17 at 09:00 Meropenem 1 gm/ Sodium Chloride 100 ml @ 200 mls/hr Q12HR IV Last administered on 07/04/17 10:49; Start 07/01/17 at 10:00 Sodium Chloride 1,000 ml @ 75 mls/hr [id number] IV Last administered on 21:17; Start 07/02/17 at 17:45 Lactobacillus Rhamnosus (Culturelle) 1 cap BID PO Last administered on 10:37; Start 07/02/17 at 21:00 Metronidazole (Flagyl) 500 mg Q8HRS PO Last administered on 07/03/17 04:51; Start 07/02/17 at 20:00; Stop 07/03/17 at 14:01; Status DC Vancomycin HCl 125 mg [id number] PO Last administered on 07/04/17 13:00; Start 07/03/17 at 17:00 Albuterol/ Ipratropium (Duoneb) 3 ml Q4HRS NEB Last administered on 07/04/17 11:00; Start 07/03/17 at 20:00 Furosemide (Lasix) 20 mg 1X ONCE IVP Last administered on 07/03/17 21:14; Start 07/03/17 at 20:00; Stop 07/03/17 at 20:01; Status DC Methylprednisolone Sodium Succinate (SOLU-Medrol 125MG VIAL) 125 mg 1X ONCE IV Last administered on 07/03/17 21:14; Start 07/03/17 at 20:00; Stop at 20:01; Status DC Morphine Sulfate 4 mg PRN Q2HR PRN IV PAIN Last administered on 07/04/17 13: 43; Start 07/03/17 at 20:45 Famotidine (Pepcid) 20 mg BID PO ; Start 07/04/17 at 21:00 Active Scripts Active Reported Diovan (Valsartan) 160 Mg Tablet 160 Mg PEG DAILY Pantoprazole Sodium 40 Mg Tablet.dr 40 Mg PEG BID Donepezil Hcl 5 Mg Tablet 5 Mg PEG BID Reglan (Metoclopramide Hcl) 10 Mg Tablet 5 Mg PO QIDAFTMEAL Atenolol-Chlorthal 50-25 Tb (Atenolol/Chlorthalidone) 1 Each Tablet 1 Tab PEG DAILY Cyproheptadine Hcl 2 Mg/5 Ml Syrup 2 Mg PEG BID Percocet 7.5-325 Mg Tablet (Oxycodone/Acetaminophen) 1 Each Tablet 1 Tab PO QID PRN Proair Hfa Inhaler (Albuterol Sulfate) 8.5 Gm Hfa.aer.ad 2 Puff IH PRN Q4-6HRS FENTANYL 50mcg/hr (Fentanyl) 1 Each Patch.td72 1 Patch TP Q3DAYS Ondansetron Odt (Ondansetron) 4 Mg Tab.rapdis 4 Mg PEG QIDPRN PRN Vitals/I & O Vital Sign - Last 24 Hours 07/03/17 07/03/17 07/03/17 07/03/17 15:00 15:02 16:27 19:00 Temp 97.7 97.6 97.7 97.6 Pulse 74 82 Resp 18 21 B/P (MAP) 133/63 (86) 178/88 (118) Pulse Ox 94 93 95 O2 Delivery Room Air Tracheal Collar ap neb Tracheal Collar O2 Flow Rate 10.0 8.0 10.0 07/03/17 07/03/17 07/03/17 07/03/17 19:59 20:16 21:15 21:45 Resp 18 Pulse Ox 98 98 98 O2 Delivery BiPAP/CPAP Trach Collar BiPAP/CPAP O2 Flow Rate 8.0 8.0 07/03/17 07/03/17 07/03/17 07/04/17 21:55 23:00 23:59 02:52 Temp 97.8 97.8 Pulse 86 Resp 22 20 B/P (MAP) 169/91 (117) Pulse Ox 97 90 90 O2 Delivery Tracheal Collar Tracheal Collar ap neb O2 Flow Rate 10.0 10.0 10.0 07/04/17 07/04/17 07/04/17 07/04/17 03:00 03:25 03:37 07:00 Temp 97.5 97.6 97.5 97.6 Pulse 87 80 Resp 22 20 24 B/P (MAP) 158/83 (108) 128/72 (90) Pulse Ox 93 93 92 100 O2 Delivery Tracheal Collar ap neb Tracheal Collar O2 Flow Rate 10.0 10.0 10.0 10.0 07/04/17 07/04/17 07/04/17 07/04/17 08:00 08:15 10:37 10:37 Pulse 80 Resp 15 B/P (MAP) 128/72 Pulse Ox 99 100 O2 Delivery Trach Collar ap neb Tracheal Collar O2 Flow Rate 10.0 10.0 3.0 07/04/17 07/04/17 07/04/17 07/04/17 10:38 11:00 11:23 11:39 Temp 97.5 97.5 Pulse 80 102 Resp 20 B/P (MAP) 128/72 103/56 (72) Pulse Ox 98 98 O2 Delivery ap neb Tracheal Collar O2 Flow Rate 10.0 10.0 10.0 07/04/17 13:43 Resp 20 Pulse Ox 97 O2 Delivery Tracheal Collar O2 Flow Rate 3.0 Intake and Output 07/04/17 07/04/17 07/05/17 15:00 23:00 07:00 Intake Total 900 ml Balance 900 ml Nutrition Consultation Dietary Evaluation: Comments: continue TF for total nutrition Expected Outcomes/Goals: to meet > 75% est nutr needs- not met, TF on hold for GI scan, resumed and bolus feeding given this am per nursing - tolerating well- goal ongoing Malnutrition Findings: Body Fat Depletion (Non Severe: Mild Depletion Weight Status: Appropriate RUDDY QUEZADA MD Jul 04, 2017 14:19
--- NOTE | 2017-07-04 14:35 | PDOC ---
Infectious Disease Note Subjective Subjective Sleeping, didn't wake her Vital Sign Vital Signs Vital Signs Date Time Temp Pulse Resp B/P (MAP) Pulse Ox O2 Delivery O2 Flow Rate FiO2 07/04/17 13:43 20 97 Tracheal Collar 3.0 07/04/17 11:23 97.5 102 103/56 (72) 97.5 Physical Exam PHYSICAL EXAM GENERAL: Resting, appears comfortable NECK: Tach shield LUNGS: Clear anteriorly HEART: S1 and S2 ABD: Soft, BS active, PEG EXT: No edema, no cyanosis BELT BACK OPERATOR: NA SKIN: No rash Port clean Labs Micro BLOOD CULTURE NO GROWTH to date SPUTUM CULT RES 1 Final Pseudomonas species Objective Assessment + C. diff 07/02 Acute resp failure ? aspiration. Pseudomonas Leukocytosis - better SANCHEZ - better Encephalopathy - some better today Recent Ecoli Plan Plan of Care meropenem and po vanc Await PSA susceptibilities f/u am labs Patient seen and examined. Chart reviewed in detail. Case discussed with ELECTRICAL SUBCONTRACTOR. Agree with above plan. ANA PAULA VILLAR APRN Jul 04, 2017 14:35 EMBER MADDEN MD Jul 04, 2017 17:37
[2017-07-04 15:15] VITALS: BP 103/58
[2017-07-04 19:00] VITALS: BP 138/113
[2017-07-04] MEDS: FAMOTIDINE 20 MG TABLET. PO SCH (20:57)
[2017-07-04] MEDS: ONDANSETRON ODT 4 MG TAB.RAPDIS. PEG PRN (20:58)
[2017-07-04 23:00] VITALS: BP 115/53
[2017-07-05 03:00] VITALS: BP 132/68
[2017-07-05] MEDS: IPRATRPIUM/ALBUTEROL 0.5/2.5MG 3 ML NEBU. NEB SCH ×5 (03:51→20:13)
[2017-07-05 04:58] LABS: BASO # 0.1 x10^3/uL (0.0-0.2); BASO % 0 % (0-3); EOS % 0 % (0-3); HEMATOCRIT 35.7 % (36.0-47.0); LYMPH # 2.9 x10^3/uL (1.0-4.8); LYMPH % 12 % (24-48); MEAN CORPUSCULAR HEMOGLOBIN 25 pg (25-35); MEAN CORPUSCULAR HGB CONC 31 g/dL (31-37); MEAN CORPUSCULAR VOLUME 81 fL (79-100); MONO % 4 % (0-9); NEUT % 83 % (31-73); PLATELET COUNT 428 x10^3/uL (140-400); RED BLOOD COUNT 4.39 x10^6/uL (3.50-5.40); RED CELL DISTRIBUTION WIDTH 18.2 % (11.5-14.5); WHITE BLOOD COUNT 24.9 x10^3/uL (4.0-11.0)
[2017-07-05 05:26] LABS: ALBUMIN 2.2 g/dL (3.4-5.0); ALBUMIN/GLOBULIN RATIO 0.4 (1.0-1.7); CALCIUM 9.3 mg/dL (8.5-10.1); CREATININE 1.1 mg/dL (0.6-1.0); GFR 58.4; POTASSIUM 3.8 mmol/L (3.5-5.1); TOTAL BILIRUBIN 0.2 mg/dL (0.2-1.0)
[2017-07-05 07:00] VITALS: BP 126/61
[2017-07-05] MEDS: CYPROHEPTADINE 4 MG TABLET. PEG SCH ×2 (07:37→20:46)
[2017-07-05] MEDS: CHLORTHALIDONE 25 MG TABLET. PEG SCH (07:37)
[2017-07-05] MEDS: PROCHLORPERAZINE 10 MG/2 ML VIAL. IV PRN (07:37)
[2017-07-05] MEDS: ATENOLOL 50 MG TABLET. PEG SCH (07:38)
[2017-07-05] MEDS: METOCLOPRAMIDE 5 MG TABLET. PO SCH ×4 (07:38→20:46)
[2017-07-05] MEDS: DONEPEZIL HCL 5 MG TABLET. PEG SCH ×2 (07:39→20:46)
[2017-07-05] MEDS: oxyCODONE/APAP 7.5/325 1 TAB TABLET PO PRN ×2 (07:39→20:46)
[2017-07-05] MEDS: LOSARTAN POTASSIUM 50 MG TABLET. PO SCH (07:39)
[2017-07-05] MEDS: MEROPENEM 1 GM in IV NORMAL SALINE 100ML 100 ML IV SCH ×2 (07:40→20:47)
[2017-07-05] MEDS: FAMOTIDINE 20 MG TABLET. PO SCH ×2 (07:40→20:46)
[2017-07-05] MEDS: LACTOBACILLUS RHAMNOSUS GG 1 CAPSULE. PO SCH (07:40)
[2017-07-05] MEDS: VANCOMYCIN 125 MG/2.5 ML ORAL SOLUTION. PO SCH ×4 (07:46→20:46)
--- NOTE | 2017-07-05 09:17 | PDOC ---
PULMONARY PROGRESS NOTES Subjective on 02 3lpm, via tm, feels better, has occ cough, sob better, no pain, has nausea Vitals Vital Signs Date Time Temp Pulse Resp B/P (MAP) Pulse Ox O2 Delivery O2 Flow Rate FiO2 07/05/17 08:39 92 3.0 07/05/17 08:30 ap neb 07/05/17 07:39 77 121/61 07/05/17 03:00 18 07/04/17 23:00 98.0 98.0 ROS: No Chest Pain, No Abdominal Pain, No Increase Cough General: Alert HEENT: Other (nc at perrl) Lungs: Other (bl coarse bs) Cardiovascular: S1, S2 Abdomen: Soft, Non-tender, Other Neuro Exam: Alert Extremities: No Edema Skin: Warm Labs Laboratory Tests Test 07/05/17 04:20 White Blood Count 24.9 x10^3/uL (4.0-11.0) Red Blood Count 4.39 x10^6/uL (3.50-5.40) Hemoglobin 11.0 g/dL (12.0-15.5) Hematocrit 35.7 % (36.0-47.0) Mean Corpuscular Volume 81 fL (79-100) Mean Corpuscular Hemoglobin 25 pg (25-35) Mean Corpuscular Hemoglobin Concent 31 g/dL (31-37) Red Cell Distribution Width 18.2 % (11.5-14.5) Platelet Count 428 x10^3/uL (140-400) Neutrophils (%) (Auto) 83 % (31-73) Lymphocytes (%) (Auto) 12 % (24-48) Monocytes (%) (Auto) 4 % (0-9) Eosinophils (%) (Auto) 0 % (0-3) Basophils (%) (Auto) 0 % (0-3) Neutrophils # (Auto) 20.7 x10^3uL (1.8-7.7) Lymphocytes # (Auto) 2.9 x10^3/uL (1.0-4.8) Monocytes # (Auto) 1.1 x10^3/uL (0.0-1.1) Eosinophils # (Auto) 0.0 x10^3/uL (0.0-0.7) Basophils # (Auto) 0.1 x10^3/uL (0.0-0.2) Sodium Level 143 mmol/L (136-145) Potassium Level 3.8 mmol/L (3.5-5.1) Chloride Level 107 mmol/L (98-107) Carbon Dioxide Level 28 mmol/L (21-32) Anion Gap 8 (6-14) Blood Urea Nitrogen 31 mg/dL (7-20) Creatinine 1.1 mg/dL (0.6-1.0) Estimated GFR (Cockcroft-Gault) 58.4 BUN/Creatinine Ratio 28 (6-20) Glucose Level 92 mg/dL (70-99) Calcium Level 9.3 mg/dL (8.5-10.1) Total Bilirubin 0.2 mg/dL (0.2-1.0) Aspartate Amino Transf (AST/SGOT) 22 U/L (15-37) Alanine Aminotransferase (ALT/SGPT) 13 U/L (14-59) Alkaline Phosphatase 81 U/L (46-116) Total Protein 8.0 g/dL (6.4-8.2) Albumin 2.2 g/dL (3.4-5.0) Albumin/Globulin Ratio 0.4 (1.0-1.7) Laboratory Tests Test 07/05/17 04:20 White Blood Count 24.9 x10^3/uL (4.0-11.0) Red Blood Count 4.39 x10^6/uL (3.50-5.40) Hemoglobin 11.0 g/dL (12.0-15.5) Hematocrit 35.7 % (36.0-47.0) Mean Corpuscular Volume 81 fL (79-100) Mean Corpuscular Hemoglobin 25 pg (25-35) Mean Corpuscular Hemoglobin Concent 31 g/dL (31-37) Red Cell Distribution Width 18.2 % (11.5-14.5) Platelet Count 428 x10^3/uL (140-400) Neutrophils (%) (Auto) 83 % (31-73) Lymphocytes (%) (Auto) 12 % (24-48) Monocytes (%) (Auto) 4 % (0-9) Eosinophils (%) (Auto) 0 % (0-3) Basophils (%) (Auto) 0 % (0-3) Neutrophils # (Auto) 20.7 x10^3uL (1.8-7.7) Lymphocytes # (Auto) 2.9 x10^3/uL (1.0-4.8) Monocytes # (Auto) 1.1 x10^3/uL (0.0-1.1) Eosinophils # (Auto) 0.0 x10^3/uL (0.0-0.7) Basophils # (Auto) 0.1 x10^3/uL (0.0-0.2) Sodium Level 143 mmol/L (136-145) Potassium Level 3.8 mmol/L (3.5-5.1) Chloride Level 107 mmol/L (98-107) Carbon Dioxide Level 28 mmol/L (21-32) Anion Gap 8 (6-14) Blood Urea Nitrogen 31 mg/dL (7-20) Creatinine 1.1 mg/dL (0.6-1.0) Estimated GFR (Cockcroft-Gault) 58.4 BUN/Creatinine Ratio 28 (6-20) Glucose Level 92 mg/dL (70-99) Calcium Level 9.3 mg/dL (8.5-10.1) Total Bilirubin 0.2 mg/dL (0.2-1.0) Aspartate Amino Transf (AST/SGOT) 22 U/L (15-37) Alanine Aminotransferase (ALT/SGPT) 13 U/L (14-59) Alkaline Phosphatase 81 U/L (46-116) Total Protein 8.0 g/dL (6.4-8.2) Albumin 2.2 g/dL (3.4-5.0) Albumin/Globulin Ratio 0.4 (1.0-1.7) Medications Active Scripts Medications Dose Route/Sig Max Daily Dose Days Date Category Diovan (Valsartan) 160 Mg Tablet 160 Mg PEG DAILY 03/11/17 Reported Pantoprazole Sodium 40 Mg Tablet.dr 40 Mg PEG BID 03/11/17 Reported Donepezil Hcl 5 Mg Tablet 5 Mg PEG BID 03/11/17 Reported Reglan (Metoclopramide Hcl) 10 Mg Tablet 5 Mg PO QIDAFTMEAL 03/11/17 Reported Atenolol-Chlorthal 50-25 Tb (Atenolol/Chlorthalidone) 1 Each Tablet 1 Tab PEG DAILY 03/11/17 Reported Cyproheptadine Hcl 2 Mg/5 Ml Syrup 2 Mg PEG BID 03/11/17 Reported Percocet 7.5-325 Mg Tablet (Oxycodone/Acetaminophen) 1 Each Tablet 1 Tab PO QID PRN 03/11/17 Reported Proair Hfa Inhaler (Albuterol Sulfate) 8.5 Gm Hfa.aer.ad 2 Puff IH PRN Q4-6HRS 08/16/15 Reported FENTANYL 50mcg/hr (Fentanyl) 1 Each Patch.td72 1 Patch TP Q3DAYS 06/19/14 Reported Ondansetron Odt (Ondansetron) 4 Mg Tab.rapdis 4 Mg PEG QIDPRN PRN 06/19/14 Reported Impression . 1. Acute on chronic respiratory failure, multifactorial. 2. Suspected Gram-negative and gram-positive pneumonia. 3. Abnormal x-ray compatible with the above. 4. 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 5. History of Pseudomonas and methicillin-resistant Staphylococcus aureus pneumonia. 6. Possible Aspiration PN 7. wheezing 8. c diff colitis Plan . dr bullock discussed code status with PT SHE WISHES TO BE RESUSCITATED 1. continue oxygen supplementation. cont bronchodilator q 4hrs, ics, 2. Broad antibiotics per id 3. tolerating tube feeding 4. repeat CXR in am 5. elevate hob discussed w rn, pt SUZANNE STEINER MD Jul 05, 2017 09:17
--- NOTE | 2017-07-05 10:55 | PDOC ---
Infectious Disease Note Subjective Subjective Breathing w/o effort Denies increase cough, tracheal secessions or sanctioning No increase FiO2 demands Diarrhea and nausea ROS ROS GEN: Denies fevers, chills, sweats CV: Denies chest pain GI: Denies vomiting Vital Sign Vital Signs Vital Signs Date Time Temp Pulse Resp B/P (MAP) Pulse Ox O2 Delivery O2 Flow Rate FiO2 07/05/17 08:39 92 3.0 07/05/17 08:30 ap neb 07/05/17 07:39 77 121/61 07/05/17 07:00 97.7 18 97.7 Physical Exam PHYSICAL EXAM GENERAL: Resting, appears comfortable NECK: Tach shield LUNGS: Clear anteriorly HEART: S1 and S2 ABD: Soft, BS active, PEG EXT: No edema, no cyanosis JEWELRY COATER: Arouses easily to name, nods o questions appropriately SKIN: No rash Port clean Labs Lab Laboratory Tests Test 07/05/17 04:20 White Blood Count 24.9 x10^3/uL (4.0-11.0) Red Blood Count 4.39 x10^6/uL (3.50-5.40) Hemoglobin 11.0 g/dL (12.0-15.5) Hematocrit 35.7 % (36.0-47.0) Mean Corpuscular Volume 81 fL (79-100) Mean Corpuscular Hemoglobin 25 pg (25-35) Mean Corpuscular Hemoglobin Concent 31 g/dL (31-37) Red Cell Distribution Width 18.2 % (11.5-14.5) Platelet Count 428 x10^3/uL (140-400) Neutrophils (%) (Auto) 83 % (31-73) Lymphocytes (%) (Auto) 12 % (24-48) Monocytes (%) (Auto) 4 % (0-9) Eosinophils (%) (Auto) 0 % (0-3) Basophils (%) (Auto) 0 % (0-3) Neutrophils # (Auto) 20.7 x10^3uL (1.8-7.7) Lymphocytes # (Auto) 2.9 x10^3/uL (1.0-4.8) Monocytes # (Auto) 1.1 x10^3/uL (0.0-1.1) Eosinophils # (Auto) 0.0 x10^3/uL (0.0-0.7) Basophils # (Auto) 0.1 x10^3/uL (0.0-0.2) Sodium Level 143 mmol/L (136-145) Potassium Level 3.8 mmol/L (3.5-5.1) Chloride Level 107 mmol/L (98-107) Carbon Dioxide Level 28 mmol/L (21-32) Anion Gap 8 (6-14) Blood Urea Nitrogen 31 mg/dL (7-20) Creatinine 1.1 mg/dL (0.6-1.0) Estimated GFR (Cockcroft-Gault) 58.4 BUN/Creatinine Ratio 28 (6-20) Glucose Level 92 mg/dL (70-99) Calcium Level 9.3 mg/dL (8.5-10.1) Total Bilirubin 0.2 mg/dL (0.2-1.0) Aspartate Amino Transf (AST/SGOT) 22 U/L (15-37) Alanine Aminotransferase (ALT/SGPT) 13 U/L (14-59) Alkaline Phosphatase 81 U/L (46-116) Total Protein 8.0 g/dL (6.4-8.2) Albumin 2.2 g/dL (3.4-5.0) Albumin/Globulin Ratio 0.4 (1.0-1.7) Micro BLOOD CULTURE NO GROWTH to date SPUTUM CULT RES 1 Final Pseudomonas species Objective Assessment + C. diff 07/02 Acute resp failure ? aspiration. Pseudomonas Leukocytosis - better SANCHEZ - better Encephalopathy - some better today Recent Ecoli Plan Plan of Care meropenem and po vanc Await PSA susceptibilities f/u cxr Patient see and examined. Chart reviewed in detail. Case discussed with REEL [employer]ADE [employer]. Agree with above plan. ANA PAULA VILLAR APRN Jul 05, 2017 10:55 EMBER MADDEN MD Jul 05, 2017 17:32
[2017-07-05 11:00] VITALS: BP 105/56
--- NOTE | 2017-07-05 12:14 | PDOC ---
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 add flagyl po, fu with id duoneb trach collar o2 8-10L local trach care PEG feeding resume 07/03, dc IVF tmr Vitals Vitals Vital Signs Date Time Temp Pulse Resp B/P (MAP) Pulse Ox O2 Delivery O2 Flow Rate FiO2 07/05/17 08:39 92 3.0 07/05/17 08:30 ap neb 07/05/17 07:39 77 121/61 07/05/17 07:00 97.7 18 97.7 Physical Exam General: Cooperative, No acute distress, Other (yellowish sputum in trach) Heart: Regular rate, Normal S1, Normal S2 Lungs: Wheezing, Other (bl coarse bs) Abdomen: Soft, Other (PEg in place) Extremities: Other (minimal subQ tissue) Skin: No rashes, No breakdown, No significant lesion Labs LABS Laboratory Tests Test 07/05/17 04:20 White Blood Count 24.9 x10^3/uL (4.0-11.0) Red Blood Count 4.39 x10^6/uL (3.50-5.40) Hemoglobin 11.0 g/dL (12.0-15.5) Hematocrit 35.7 % (36.0-47.0) Mean Corpuscular Volume 81 fL (79-100) Mean Corpuscular Hemoglobin 25 pg (25-35) Mean Corpuscular Hemoglobin Concent 31 g/dL (31-37) Red Cell Distribution Width 18.2 % (11.5-14.5) Platelet Count 428 x10^3/uL (140-400) Neutrophils (%) (Auto) 83 % (31-73) Lymphocytes (%) (Auto) 12 % (24-48) Monocytes (%) (Auto) 4 % (0-9) Eosinophils (%) (Auto) 0 % (0-3) Basophils (%) (Auto) 0 % (0-3) Neutrophils # (Auto) 20.7 x10^3uL (1.8-7.7) Lymphocytes # (Auto) 2.9 x10^3/uL (1.0-4.8) Monocytes # (Auto) 1.1 x10^3/uL (0.0-1.1) Eosinophils # (Auto) 0.0 x10^3/uL (0.0-0.7) Basophils # (Auto) 0.1 x10^3/uL (0.0-0.2) Sodium Level 143 mmol/L (136-145) Potassium Level 3.8 mmol/L (3.5-5.1) Chloride Level 107 mmol/L (98-107) Carbon Dioxide Level 28 mmol/L (21-32) Anion Gap 8 (6-14) Blood Urea Nitrogen 31 mg/dL (7-20) Creatinine 1.1 mg/dL (0.6-1.0) Estimated GFR (Cockcroft-Gault) 58.4 BUN/Creatinine Ratio 28 (6-20) Glucose Level 92 mg/dL (70-99) Calcium Level 9.3 mg/dL (8.5-10.1) Total Bilirubin 0.2 mg/dL (0.2-1.0) Aspartate Amino Transf (AST/SGOT) 22 U/L (15-37) Alanine Aminotransferase (ALT/SGPT) 13 U/L (14-59) Alkaline Phosphatase 81 U/L (46-116) Total Protein 8.0 g/dL (6.4-8.2) Albumin 2.2 g/dL (3.4-5.0) Albumin/Globulin Ratio 0.4 (1.0-1.7) Review of Systems Review of Systems no n.v.d weak Assessment and Plan Assessmemt and Plan Problems Medical Problems: (1) CAP (community acquired pneumonia) Status: Acute (2) Dyspnea Status: Acute (3) Unspecified protein-calorie malnutrition Status: Acute Problems: Comment Review of Relevant I have reviewed the following items miko (where applicable) has been applied. Labs Laboratory Tests Test 07/05/17 04:20 White Blood Count 24.9 x10^3/uL (4.0-11.0) Red Blood Count 4.39 x10^6/uL (3.50-5.40) Hemoglobin 11.0 g/dL (12.0-15.5) Hematocrit 35.7 % (36.0-47.0) Mean Corpuscular Volume 81 fL (79-100) Mean Corpuscular Hemoglobin 25 pg (25-35) Mean Corpuscular Hemoglobin Concent 31 g/dL (31-37) Red Cell Distribution Width 18.2 % (11.5-14.5) Platelet Count 428 x10^3/uL (140-400) Neutrophils (%) (Auto) 83 % (31-73) Lymphocytes (%) (Auto) 12 % (24-48) Monocytes (%) (Auto) 4 % (0-9) Eosinophils (%) (Auto) 0 % (0-3) Basophils (%) (Auto) 0 % (0-3) Neutrophils # (Auto) 20.7 x10^3uL (1.8-7.7) Lymphocytes # (Auto) 2.9 x10^3/uL (1.0-4.8) Monocytes # (Auto) 1.1 x10^3/uL (0.0-1.1) Eosinophils # (Auto) 0.0 x10^3/uL (0.0-0.7) Basophils # (Auto) 0.1 x10^3/uL (0.0-0.2) Sodium Level 143 mmol/L (136-145) Potassium Level 3.8 mmol/L (3.5-5.1) Chloride Level 107 mmol/L (98-107) Carbon Dioxide Level 28 mmol/L (21-32) Anion Gap 8 (6-14) Blood Urea Nitrogen 31 mg/dL (7-20) Creatinine 1.1 mg/dL (0.6-1.0) Estimated GFR (Cockcroft-Gault) 58.4 BUN/Creatinine Ratio 28 (6-20) Glucose Level 92 mg/dL (70-99) Calcium Level 9.3 mg/dL (8.5-10.1) Total Bilirubin 0.2 mg/dL (0.2-1.0) Aspartate Amino Transf (AST/SGOT) 22 U/L (15-37) Alanine Aminotransferase (ALT/SGPT) 13 U/L (14-59) Alkaline Phosphatase 81 U/L (46-116) Total Protein 8.0 g/dL (6.4-8.2) Albumin 2.2 g/dL (3.4-5.0) Albumin/Globulin Ratio 0.4 (1.0-1.7) Laboratory Tests Test 07/05/17 04:20 White Blood Count 24.9 x10^3/uL (4.0-11.0) Red Blood Count 4.39 x10^6/uL (3.50-5.40) Hemoglobin 11.0 g/dL (12.0-15.5) Hematocrit 35.7 % (36.0-47.0) Mean Corpuscular Volume 81 fL (79-100) Mean Corpuscular Hemoglobin 25 pg (25-35) Mean Corpuscular Hemoglobin Concent 31 g/dL (31-37) Red Cell Distribution Width 18.2 % (11.5-14.5) Platelet Count 428 x10^3/uL (140-400) Neutrophils (%) (Auto) 83 % (31-73) Lymphocytes (%) (Auto) 12 % (24-48) Monocytes (%) (Auto) 4 % (0-9) Eosinophils (%) (Auto) 0 % (0-3) Basophils (%) (Auto) 0 % (0-3) Neutrophils # (Auto) 20.7 x10^3uL (1.8-7.7) Lymphocytes # (Auto) 2.9 x10^3/uL (1.0-4.8) Monocytes # (Auto) 1.1 x10^3/uL (0.0-1.1) Eosinophils # (Auto) 0.0 x10^3/uL (0.0-0.7) Basophils # (Auto) 0.1 x10^3/uL (0.0-0.2) Sodium Level 143 mmol/L (136-145) Potassium Level 3.8 mmol/L (3.5-5.1) Chloride Level 107 mmol/L (98-107) Carbon Dioxide Level 28 mmol/L (21-32) Anion Gap 8 (6-14) Blood Urea Nitrogen 31 mg/dL (7-20) Creatinine 1.1 mg/dL (0.6-1.0) Estimated GFR (Cockcroft-Gault) 58.4 BUN/Creatinine Ratio 28 (6-20) Glucose Level 92 mg/dL (70-99) Calcium Level 9.3 mg/dL (8.5-10.1) Total Bilirubin 0.2 mg/dL (0.2-1.0) Aspartate Amino Transf (AST/SGOT) 22 U/L (15-37) Alanine Aminotransferase (ALT/SGPT) 13 U/L (14-59) Alkaline Phosphatase 81 U/L (46-116) Total Protein 8.0 g/dL (6.4-8.2) Albumin 2.2 g/dL (3.4-5.0) Albumin/Globulin Ratio 0.4 (1.0-1.7) Microbiology 06/30/17 Blood Culture - Preliminary, Resulted NO GROWTH AFTER 4 DAYS 07/02/17 - Final, Resulted 07/02/17 - Final, Resulted 07/02/17 - Final, Resulted 07/02/17 Gram Stain Evaluation - Final, Resulted 07/02/17 Sputum Culture - Preliminary, Resulted 07/02/17 Sputum Result 1 - Final, Resulted Medications Current Medications Sodium Chloride 1,000 ml @ 1,000 mls/hr Q1H IV Last administered on t 12:18; Start 06/30/17 at 11:53; Stop 06/30/17 at 12:52; Status DC Sodium Chloride (Normal Saline Flush) 10 ml QSHIFT PRN IV AFTER MEDS AND BLOOD DRAWS; Start 06/30/17 at 12:00 Sodium Chloride (NORMAL SALINE FLUSH for STERILE FIELD) 10 ml STK-MED ONCE .ROUTE ; Start 06/30/17 at 12:44; Stop 06/30/17 at 12:45; Status DC Ceftriaxone Sodium 1 gm/ Dextrose 50 ml @ 100 mls/hr Q24H IV ; Start 07/01/17 at 14:00; Stop 07/01/17 at 14:00; Status DC Azithromycin 500 mg/Sodium Chloride 250 ml @ 250 mls/hr 1X ONCE IV ; Start at 13:15; Stop 06/30/17 at 14:14; Status UNV Ceftriaxone Sodium 50 ml @ 100 mls/hr 1X ONCE IV Last administered on 13:50; Start 06/30/17 at 13:30; Stop 06/30/17 at 13:59; Status DC Azithromycin 250 ml @ 250 mls/hr 1X ONCE IV Last administered on 06/30/17 14:25; Start 06/30/17 at 13:30; Stop 06/30/17 at 14:29; Status DC Ondansetron HCl (Zofran) 4 mg PRN Q8HRS PRN IV NAUSEA/VOMITING; Start at 13:45; Stop 06/30/17 at 14:30; Status DC Sodium Chloride 1,000 ml @ 75 mls/hr [id number] IV Last administered on 05:47; Start 06/30/17 at 14:00; Stop 07/01/17 at 13:59; Status DC Prochlorperazine Edisylate (Compazine) 10 mg PRN Q6HRS PRN IV NAUSEA/VOMITING Last administered on 07/05/17 07:37; Start 06/30/17 at 14:15 Ondansetron HCl (Zofran) 4 mg PRN Q6HRS PRN IV NAUSEA/VOMITING Last administered on 07/03/17 21:15; Start 06/30/17 at 14:15 Donepezil HCl (Aricept) 5 mg BID PEG Last administered on 07/05/17 07:39; Start 06/30/17 at 21:00 Fentanyl (Duragesic 50mcg/ Hr Patch) 1 patch Q3DAYS TD ; Start 07/03/17 at 09: 00; Stop 07/03/17 at 09:00; Status DC Metoclopramide HCl (Reglan) 5 mg QIDAFTMEAL PO Last administered on 07/05/17 07:38; Start 06/30/17 at 18:00 Ondansetron HCl (Zofran Odt) 4 mg QIDPRN PRN PEG NAUSEA/VOMITING Last administered on 07/04/17 20:58; Start 06/30/17 at 14:15 Oxycodone/ Acetaminophen (Percocet 7.5/ 325) 1 tab PRN QID PRN PO PAIN Last administered on 07/05/17 07:39; Start 06/30/17 at 14:15 Pantoprazole Sodium (Protonix) 40 mg BIDAC PO ; Start 06/30/17 at 16:30; Stop 06/30/17 at 16:49; Status DC Albuterol Sulfate (Ventolin Neb Soln) 2.5 mg PRN Q4HRS PRN NEB SHORTNESS OF BREATH Last administered on 06/30/17 16:17; Start 06/30/17 at 14:45 Atenolol (Tenormin) 50 mg DAILY PEG Last administered on 07/05/17 07:38; Start 07/01/17 at 09:00 Cyproheptadine HCl (Periactin) 2 mg BID PEG Last administered on 07/05/17 07: 37; Start 06/30/17 at 21:00 Losartan Potassium (Cozaar) 100 mg DAILY PO Last administered on 07/05/17 07: 39; Start 07/01/17 at 09:00 Chlorthalidone (Thalitone) 25 mg DAILY PEG Last administered on 07/05/17 07: 37; Start 07/01/17 at 09:00 Lansoprazole (Prevacid) 30 mg BIDBFRMEAL FT Last administered on 07/04/17 10: 38; Start 07/01/17 at 07:30; Stop 07/04/17 at 13:20; Status DC Piperacillin Sod/ Tazobactam Sod (Zosyn Per Pharmacy) 1 each PRN DAILY PRN MC SEE COMMENTS; Start 06/30/17 at 21:00; Stop 06/30/17 at 21:00; Status DC Piperacillin Sod/ Tazobactam Sod (Zosyn Per Pharmacy) 1 each PRN DAILY PRN MC SEE COMMENTS; Start 06/30/17 at 18:00; Stop 07/01/17 at 09:25; Status DC Piperacillin Sod/ Tazobactam Sod 2.25 gm/Sodium Chloride 50 ml @ 100 mls/hr Q6HRS IV Last administered on 07/01/17 05:47; Start 06/30/17 at 18:30; Stop 07/01/17 at 09:25; Status DC Linezolid 300 ml @ 300 mls/hr Q12HR IV Last administered on 07/03/17 10:13; Start 06/30/17 at 19:30; Stop 07/03/17 at 14:01; Status DC Albuterol/ Ipratropium (Duoneb) 3 ml RTQID NEB Last administered on 07/03/17 16:27; Start 06/30/17 at 20:00; Stop 07/03/17 at 19:53; Status DC Scopolamine (Transderm-Scop) 1 patch Q3DAYS TD Last administered on 07/03/17 08:11; Start 06/30/17 at 22:00 Furosemide (Lasix) 20 mg 1X ONCE IVP Last administered on 06/30/17 23:25; Start 06/30/17 at 22:00; Stop 06/30/17 at 22:01; Status DC Fentanyl (Duragesic 50mcg/ Hr Patch) 1 patch Q3DAYS TD Last administered on 10:37; Start 07/01/17 at 09:00 Meropenem 1 gm/ Sodium Chloride 100 ml @ 200 mls/hr Q12HR IV Last administered on 07/05/17 07:40; Start 07/01/17 at 10:00 Sodium Chloride 1,000 ml @ 75 mls/hr [id number] IV Last administered on 21:17; Start 07/02/17 at 17:45 Lactobacillus Rhamnosus (Culturelle) 1 cap BID PO Last administered on 07:40; Start 07/02/17 at 21:00; Stop 07/05/17 at 07:49; Status DC Metronidazole (Flagyl) 500 mg Q8HRS PO Last administered on 07/03/17 04:51; Start 07/02/17 at 20:00; Stop 07/03/17 at 14:01; Status DC Vancomycin HCl 125 mg [id number] PO Last administered on 07/05/17 07:46; Start 07/03/17 at 17:00 Albuterol/ Ipratropium (Duoneb) 3 ml Q4HRS NEB Last administered on 07/05/17 08:28; Start 07/03/17 at 20:00 Furosemide (Lasix) 20 mg 1X ONCE IVP Last administered on 07/03/17 21:14; Start 07/03/17 at 20:00; Stop 07/03/17 at 20:01; Status DC Methylprednisolone Sodium Succinate (SOLU-Medrol 125MG VIAL) 125 mg 1X ONCE IV Last administered on 07/03/17 21:14; Start 07/03/17 at 20:00; Stop at 20:01; Status DC Morphine Sulfate 4 mg PRN Q2HR PRN IV PAIN Last administered on 07/04/17 17: 09; Start 07/03/17 at 20:45 Famotidine (Pepcid) 20 mg BID PO Last administered on 07/05/17 07:40; Start 07/04/17 at 21:00 Lactobacillus Rhamnosus (Culturelle) 1 cap BID PO ; Start 07/06/17 at 21:00 Active Scripts Active Reported Diovan (Valsartan) 160 Mg Tablet 160 Mg PEG DAILY Pantoprazole Sodium 40 Mg Tablet.dr 40 Mg PEG BID Donepezil Hcl 5 Mg Tablet 5 Mg PEG BID Reglan (Metoclopramide Hcl) 10 Mg Tablet 5 Mg PO QIDAFTMEAL Atenolol-Chlorthal 50-25 Tb (Atenolol/Chlorthalidone) 1 Each Tablet 1 Tab PEG DAILY Cyproheptadine Hcl 2 Mg/5 Ml Syrup 2 Mg PEG BID Percocet 7.5-325 Mg Tablet (Oxycodone/Acetaminophen) 1 Each Tablet 1 Tab PO QID PRN Proair Hfa Inhaler (Albuterol Sulfate) 8.5 Gm Hfa.aer.ad 2 Puff IH PRN Q4-6HRS FENTANYL 50mcg/hr (Fentanyl) 1 Each Patch.td72 1 Patch TP Q3DAYS Ondansetron Odt (Ondansetron) 4 Mg Tab.rapdis 4 Mg PEG QIDPRN PRN Vitals/I & O Vital Sign - Last 24 Hours 07/04/17 07/04/17 07/04/17 07/04/17 13:43 14:13 14:37 14:59 Resp 20 Pulse Ox 97 94 94 O2 Delivery Tracheal Collar ap neb O2 Flow Rate 3.0 3.0 10.0 07/04/17 07/04/17 07/04/17 07/04/17 15:15 17:09 17:39 19:00 Temp 97.5 97.9 97.5 97.9 Pulse 105 81 Resp 20 18 B/P (MAP) 103/58 (73) 138/113 (121) Pulse Ox 94 91 O2 Delivery Tracheal Collar Tracheal Collar O2 Flow Rate 10.0 3.0 3.0 10.0 07/04/17 07/04/17 07/04/17 07/04/17 20:06 20:13 20:58 23:00 Temp 98.0 98.0 Pulse 87 Resp 20 B/P (MAP) 115/53 (73) Pulse Ox 96 96 98 O2 Delivery ap neb Trach Collar Tracheal Collar O2 Flow Rate 10.0 10.0 10.0 10.0 07/04/17 07/05/17 07/05/17 07/05/17 23:51 03:00 03:35 07:00 Temp 97.7 97.7 Pulse 87 77 Resp 18 18 B/P (MAP) 132/68 (89) 126/61 (82) Pulse Ox 92 92 97 O2 Delivery ap neb Tracheal Collar ap neb Tracheal Collar O2 Flow Rate 8.0 10.0 8.0 10.0 07/05/17 07/05/17 07/05/17 07/05/17 07:38 07:39 07:39 08:00 Pulse 77 77 B/P (MAP) 121/61 121/61 O2 Delivery Tracheal Collar Trach Collar O2 Flow Rate 3.0 3.0 07/05/17 07/05/17 08:30 08:39 Pulse Ox 92 O2 Delivery ap neb O2 Flow Rate 8.0 3.0 Intake and Output 07/05/17 07/05/17 07/06/17 15:00 23:00 07:00 Intake Total 250 ml Balance 250 ml Nutrition Consultation Dietary Evaluation: Comments: continue TF for total nutrition Expected Outcomes/Goals: to meet > 75% est nutr needs- not met, TF on hold for GI scan, resumed and bolus feeding given this am per nursing - tolerating well- goal ongoing Malnutrition Findings: Body Fat Depletion (Non Severe: Mild Depletion Weight Status: Appropriate RUDDY QUEZADA MD Jul 05, 2017 12:14
[2017-07-05] MEDS: IV NORMAL SALINE 1000ML BAG 1,000 ML IV SCH (12:25)
[2017-07-05] MEDS: MORPHINE SULFATE 4 MG/ML DISP.SYRIN. IV PRN (12:59)
[2017-07-05] MEDS: ONDANSETRON PF 4 MG/2 ML VIAL. IV PRN (12:59)
[2017-07-05 15:00] VITALS: BP 87/47
[2017-07-05] MEDS: ONDANSETRON ODT 4 MG TAB.RAPDIS. PEG PRN ×2 (18:22→20:46)
[2017-07-05 19:00] VITALS: BP 123/67
[2017-07-05 22:52] VITALS: BP 138/69
[2017-07-06] MEDS: IPRATRPIUM/ALBUTEROL 0.5/2.5MG 3 ML NEBU. NEB SCH ×7 (00:01→23:05)
[2017-07-06] MEDS: IV NORMAL SALINE 1000ML BAG 1,000 ML IV SCH (01:23)
[2017-07-06 03:00] VITALS: BP 135/70
[2017-07-06] MEDS: oxyCODONE/APAP 7.5/325 1 TAB TABLET PO PRN ×2 (05:21→18:14)
[2017-07-06 07:00] VITALS: BP 172/85
[2017-07-06] MEDS: CYPROHEPTADINE 4 MG TABLET. PEG SCH ×2 (10:05→22:00)
[2017-07-06] MEDS: LOSARTAN POTASSIUM 50 MG TABLET. PO SCH (10:06)
[2017-07-06] MEDS: DONEPEZIL HCL 5 MG TABLET. PEG SCH ×2 (10:07→21:59)
[2017-07-06] MEDS: CHLORTHALIDONE 25 MG TABLET. PEG SCH (10:07)
[2017-07-06] MEDS: ATENOLOL 50 MG TABLET. PEG SCH (10:07)
[2017-07-06] MEDS: FAMOTIDINE 20 MG TABLET. PO SCH ×2 (10:07→21:59)
[2017-07-06] MEDS: ONDANSETRON ODT 4 MG TAB.RAPDIS. PEG PRN (10:08)
[2017-07-06] MEDS: METOCLOPRAMIDE 5 MG TABLET. PO SCH ×4 (10:08→21:59)
[2017-07-06] MEDS: VANCOMYCIN 125 MG/2.5 ML ORAL SOLUTION. PO SCH ×4 (10:09→21:59)
[2017-07-06] MEDS: SCOPOLAMINE 1.5MG PATCH. TD SCH (10:09)
--- NOTE | 2017-07-06 10:35 | PDOC ---
Subjective: Subjective: No bleeding, no abd pain. Objective: Objective: No GI concerns per RN - PEG functioning, no bleeding, no diarrhea. Vital Signs: Vital Signs Date Time Temp Pulse Resp B/P (MAP) Pulse Ox O2 Delivery O2 Flow Rate FiO2 07/06/17 10:07 82 172/85 07/06/17 07:39 98 ap neb 8.0 07/06/17 07:00 98.1 18 98.1 PE: GEN: NAD, on bedpan LUNGS: trach HEART: RRR ABD: PEG site clean/dry, soft, non-tender NEURO/PSYCH: A & O 3 A/P: C Diff, recurrent -on PO vanc "Bloody stools" (fecal occult negative, Hgb stable) - resolved -Hgb stable w/ normal BUN, no previous colonoscopy -apparently PPI stopped but is on BID H2 dinora Resp failure, oropharyngeal dysphagia -h/o laryngeal and lung cancer w/ trach and PEG in place/functioning -unable to replace PEG endoscopically in 03/2017; surgery replaced at bedside -- Improved/stable GI-locke. Continue atbx for C Diff. LE ROSENTHAL Jul 06, 2017 10:35
--- NOTE | 2017-07-06 11:07 | PDOC ---
Infectious Disease Note Subjective Subjective Better Denies increase cough, tracheal secessions or sanctioning No increase FiO2 demands Diarrhea and nausea ROS ROS GEN: Denies fevers, chills, sweats HEENT: Denies blurred vision, sore throat CV: Denies chest pain RESP: Denies shortness of air, cough NEURO: Denies confusion, dizziness MSK: Denies weakness, Vital Sign Vital Signs Vital Signs Date Time Temp Pulse Resp B/P (MAP) Pulse Ox O2 Delivery O2 Flow Rate FiO2 07/06/17 10:07 82 172/85 07/06/17 07:39 98 ap neb 8.0 07/06/17 07:00 98.1 18 98.1 Physical Exam PHYSICAL EXAM GENERAL: Resting, appears comfortable. alert and coop NECK: Tach shield LUNGS: Clear anteriorly HEART: S1 and S2 ABD: Soft, BS active, PEG EXT: No edema, no cyanosis CAUSTIC PREPARER: Arouses easily to name, nods to questions appropriately SKIN: No rash Port clean Periperal IV - out Labs Micro Pseudomonas aeruginosa Moderate growth * This is a corrected result. * A prior result that was reported as final has been changed. CONTINUED ON NEXT PAGE RUN DATE: 07/05/17 PAGE 2 RUN TIME: 1214 [facility] [address] [place] [address] Jorge Tierney M.D., Cell Phone Repair Technician SPEC: [id number] PATIENT: BERNARDO DE LEON [id number] ( Continued) Procedure Result ANTIMICROBIAL SUSCEPTIBILITY Final Sputum 07/02 Comment S = Susceptible; I = Intermediate; R = Resistant P = Positive; N = Negative MICS are expressed in micrograms per mL Antibiotic RSLT#1 RSLT#2 RSLT#3 RSLT#4 Amikacin S Cefepime S Ceftazidime S Ciprofloxacin S Gentamicin S Imipenem R Levofloxacin S Meropenem S Piperacillin S Ticarcillin R Tobramycin S Performed at: [facility] Objective Assessment Acute resp failure ? aspiration PSA in sputum 07/02 on Meropenem Leukocytosis - mild increase today -solumedrol 07/03 SANHCEZ - better Encephalopathy - some better today Recent Ecoli as mentions above Plan Plan of Care D/c meropenem and narrow to cipro per PEG Cont po vanc/probiotics . GWEN MCQUEEN MD Jul 06, 2017 11:07
[2017-07-06 11:30] VITALS: BP 155/85
--- NOTE | 2017-07-06 12:41 | PDOC ---
PULMONARY PROGRESS NOTES Subjective on 02 3lpm, via tm, feels better, has occ cough, sob better, no pain, has nausea Vitals Vital Signs Date Time Temp Pulse Resp B/P (MAP) Pulse Ox O2 Delivery O2 Flow Rate FiO2 07/06/17 11:30 98.4 84 18 155/85 (108) 100 Tracheal Collar 98.4 07/06/17 07:39 8.0 ROS: No Chest Pain, No Abdominal Pain, No Increase Cough General: Alert HEENT: Other (nc at perrl) Lungs: Other (bl coarse bs) Cardiovascular: S1, S2 Abdomen: Soft, Non-tender, Other Neuro Exam: Alert Extremities: No Edema Skin: Warm Labs Laboratory Tests Test 07/05/17 04:20 White Blood Count 24.9 x10^3/uL (4.0-11.0) Red Blood Count 4.39 x10^6/uL (3.50-5.40) Hemoglobin 11.0 g/dL (12.0-15.5) Hematocrit 35.7 % (36.0-47.0) Mean Corpuscular Volume 81 fL (79-100) Mean Corpuscular Hemoglobin 25 pg (25-35) Mean Corpuscular Hemoglobin Concent 31 g/dL (31-37) Red Cell Distribution Width 18.2 % (11.5-14.5) Platelet Count 428 x10^3/uL (140-400) Neutrophils (%) (Auto) 83 % (31-73) Lymphocytes (%) (Auto) 12 % (24-48) Monocytes (%) (Auto) 4 % (0-9) Eosinophils (%) (Auto) 0 % (0-3) Basophils (%) (Auto) 0 % (0-3) Neutrophils # (Auto) 20.7 x10^3uL (1.8-7.7) Lymphocytes # (Auto) 2.9 x10^3/uL (1.0-4.8) Monocytes # (Auto) 1.1 x10^3/uL (0.0-1.1) Eosinophils # (Auto) 0.0 x10^3/uL (0.0-0.7) Basophils # (Auto) 0.1 x10^3/uL (0.0-0.2) Sodium Level 143 mmol/L (136-145) Potassium Level 3.8 mmol/L (3.5-5.1) Chloride Level 107 mmol/L (98-107) Carbon Dioxide Level 28 mmol/L (21-32) Anion Gap 8 (6-14) Blood Urea Nitrogen 31 mg/dL (7-20) Creatinine 1.1 mg/dL (0.6-1.0) Estimated GFR (Cockcroft-Gault) 58.4 BUN/Creatinine Ratio 28 (6-20) Glucose Level 92 mg/dL (70-99) Calcium Level 9.3 mg/dL (8.5-10.1) Total Bilirubin 0.2 mg/dL (0.2-1.0) Aspartate Amino Transf (AST/SGOT) 22 U/L (15-37) Alanine Aminotransferase (ALT/SGPT) 13 U/L (14-59) Alkaline Phosphatase 81 U/L (46-116) Total Protein 8.0 g/dL (6.4-8.2) Albumin 2.2 g/dL (3.4-5.0) Albumin/Globulin Ratio 0.4 (1.0-1.7) Medications Active Scripts Medications Dose Route/Sig Max Daily Dose Days Date Category Diovan (Valsartan) 160 Mg Tablet 160 Mg PEG DAILY 03/11/17 Reported Pantoprazole Sodium 40 Mg Tablet.dr 40 Mg PEG BID 03/11/17 Reported Donepezil Hcl 5 Mg Tablet 5 Mg PEG BID 03/11/17 Reported Reglan (Metoclopramide Hcl) 10 Mg Tablet 5 Mg PO QIDAFTMEAL 03/11/17 Reported Atenolol-Chlorthal 50-25 Tb (Atenolol/Chlorthalidone) 1 Each Tablet 1 Tab PEG DAILY 03/11/17 Reported Cyproheptadine Hcl 2 Mg/5 Ml Syrup 2 Mg PEG BID 03/11/17 Reported Percocet 7.5-325 Mg Tablet (Oxycodone/Acetaminophen) 1 Each Tablet 1 Tab PO QID PRN 03/11/17 Reported Proair Hfa Inhaler (Albuterol Sulfate) 8.5 Gm Hfa.aer.ad 2 Puff IH PRN Q4-6HRS 08/16/15 Reported FENTANYL 50mcg/hr (Fentanyl) 1 Each Patch.td72 1 Patch TP Q3DAYS 06/19/14 Reported Ondansetron Odt (Ondansetron) 4 Mg Tab.rapdis 4 Mg PEG QIDPRN PRN 06/19/14 Reported Impression . 1. Acute on chronic respiratory failure, multifactorial. 2. Suspected Gram-negative and gram-positive pneumonia. 3. Abnormal x-ray compatible with the above. 4. 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 5. History of Pseudomonas and methicillin-resistant Staphylococcus aureus pneumonia. 6. Possible Aspiration PN 7. wheezing 8. c diff colitis Plan . 1. continue oxygen supplementation. cont bronchodilator , ics, 2. Broad antibiotics per id. change to PO today. d/w Dr Aparicio 3. tolerating tube feeding 4. possible dc home in 24 hrs 5. elevate hob 6. monitor wbc MARY LANIER MD Jul 06, 2017 12:41
[2017-07-06] MEDS: CIPROFLOXACIN HCL 250 MG TABLET. PEG SCH ×2 (12:51→21:59)
--- NOTE | 2017-07-06 13:15 | PDOC ---
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, has trach chronic Dysphagia , PEG htn COPD h/o cdiff, pos+ 07/02 h/o MRSA h/O pseudomonas PNA SANCHEZ, vasomotor CKD 3 mild malnutrition Sepsis with HAP bloody stool with neg FOBT AND neg bleeding scan family always wants aggressive treatment, FC, no refused snf plan: FU WIth Gi , pulm, ID fobt neg, hb stable dc zyvox and meropenum, change to cipro on 07/06 with ID cdiff + on vancop ol duoneb trach collar o2 8-10L, asked nurse to taper local trach care PEG feeding resume 07/03, dc IVF History of Present Illness History of Present Illness ROS: no fever, chills, sob or chest pain WBC up to 24 07/06 still need high O2 on trach collar 8L, some sputum from trach NO fevers repeated CXR last week better bloody stool on night of 07/01, 07/02, but neg fobt, neg bleeding scan. hb stable at 10.5-11 Vitals Vitals Vital Signs Date Time Temp Pulse Resp B/P (MAP) Pulse Ox O2 Delivery O2 Flow Rate FiO2 07/06/17 11:30 98.4 84 18 155/85 (108) 100 Tracheal Collar 98.4 07/06/17 07:39 8.0 Physical Exam General: Cooperative, No acute distress, Other (yellowish sputum in trach) Heart: Regular rate, Normal S1, Normal S2 Lungs: Other (bl coarse bs) Abdomen: Soft, Other (PEg in place) Extremities: Other (minimal subQ tissue) Skin: No rashes, No breakdown, No significant lesion Assessment and Plan Assessmemt and Plan Problems Medical Problems: (1) CAP (community acquired pneumonia) Status: Acute (2) Dyspnea Status: Acute (3) Unspecified protein-calorie malnutrition Status: Acute Problems: Comment Review of Relevant I have reviewed the following items miko (where applicable) has been applied. Labs Laboratory Tests Test 07/05/17 04:20 White Blood Count 24.9 x10^3/uL (4.0-11.0) Red Blood Count 4.39 x10^6/uL (3.50-5.40) Hemoglobin 11.0 g/dL (12.0-15.5) Hematocrit 35.7 % (36.0-47.0) Mean Corpuscular Volume 81 fL (79-100) Mean Corpuscular Hemoglobin 25 pg (25-35) Mean Corpuscular Hemoglobin Concent 31 g/dL (31-37) Red Cell Distribution Width 18.2 % (11.5-14.5) Platelet Count 428 x10^3/uL (140-400) Neutrophils (%) (Auto) 83 % (31-73) Lymphocytes (%) (Auto) 12 % (24-48) Monocytes (%) (Auto) 4 % (0-9) Eosinophils (%) (Auto) 0 % (0-3) Basophils (%) (Auto) 0 % (0-3) Neutrophils # (Auto) 20.7 x10^3uL (1.8-7.7) Lymphocytes # (Auto) 2.9 x10^3/uL (1.0-4.8) Monocytes # (Auto) 1.1 x10^3/uL (0.0-1.1) Eosinophils # (Auto) 0.0 x10^3/uL (0.0-0.7) Basophils # (Auto) 0.1 x10^3/uL (0.0-0.2) Sodium Level 143 mmol/L (136-145) Potassium Level 3.8 mmol/L (3.5-5.1) Chloride Level 107 mmol/L (98-107) Carbon Dioxide Level 28 mmol/L (21-32) Anion Gap 8 (6-14) Blood Urea Nitrogen 31 mg/dL (7-20) Creatinine 1.1 mg/dL (0.6-1.0) Estimated GFR (Cockcroft-Gault) 58.4 BUN/Creatinine Ratio 28 (6-20) Glucose Level 92 mg/dL (70-99) Calcium Level 9.3 mg/dL (8.5-10.1) Total Bilirubin 0.2 mg/dL (0.2-1.0) Aspartate Amino Transf (AST/SGOT) 22 U/L (15-37) Alanine Aminotransferase (ALT/SGPT) 13 U/L (14-59) Alkaline Phosphatase 81 U/L (46-116) Total Protein 8.0 g/dL (6.4-8.2) Albumin 2.2 g/dL (3.4-5.0) Albumin/Globulin Ratio 0.4 (1.0-1.7) Microbiology 06/30/17 Blood Culture - Final, Complete NO GROWTH AFTER 5 DAYS 07/02/17 - Final, Complete 07/02/17 - Final, Complete 07/02/17 - Final, Complete 07/02/17 Gram Stain Evaluation - Final, Complete 07/02/17 Sputum Culture - Final, Complete 07/02/17 Sputum Result 1 - Final, Complete 07/02/17 Antimicrobic Susceptibility - Final, Complete Medications Current Medications Sodium Chloride 1,000 ml @ 1,000 mls/hr Q1H IV Last administered on t 12:18; Start 06/30/17 at 11:53; Stop 06/30/17 at 12:52; Status DC Sodium Chloride (Normal Saline Flush) 10 ml QSHIFT PRN IV AFTER MEDS AND BLOOD DRAWS; Start 06/30/17 at 12:00 Sodium Chloride (NORMAL SALINE FLUSH for STERILE FIELD) 10 ml STK-MED ONCE .ROUTE ; Start 06/30/17 at 12:44; Stop 06/30/17 at 12:45; Status DC Ceftriaxone Sodium 1 gm/ Dextrose 50 ml @ 100 mls/hr Q24H IV ; Start 07/01/17 at 14:00; Stop 07/01/17 at 14:00; Status DC Azithromycin 500 mg/Sodium Chloride 250 ml @ 250 mls/hr 1X ONCE IV ; Start at 13:15; Stop 06/30/17 at 14:14; Status UNV Ceftriaxone Sodium 50 ml @ 100 mls/hr 1X ONCE IV Last administered on t 13:50; Start 06/30/17 at 13:30; Stop 06/30/17 at 13:59; Status DC Azithromycin 250 ml @ 250 mls/hr 1X ONCE IV Last administered on 06/30/17t 14:25; Start 06/30/17 at 13:30; Stop 06/30/17 at 14:29; Status DC Ondansetron HCl (Zofran) 4 mg PRN Q8HRS PRN IV NAUSEA/VOMITING; Start at 13:45; Stop 06/30/17 at 14:30; Status DC Sodium Chloride 1,000 ml @ 75 mls/hr [id number] IV Last administered on 05:47; Start 06/30/17 at 14:00; Stop 07/01/17 at 13:59; Status DC Prochlorperazine Edisylate (Compazine) 10 mg PRN Q6HRS PRN IV NAUSEA/VOMITING Last administered on 07/05/17 07:37; Start 06/30/17 at 14:15 Ondansetron HCl (Zofran) 4 mg PRN Q6HRS PRN IV NAUSEA/VOMITING Last administered on 07/05/17 12:59; Start 06/30/17 at 14:15 Donepezil HCl (Aricept) 5 mg BID PEG Last administered on 07/06/17 10:07; Start 06/30/17 at 21:00 Fentanyl (Duragesic 50mcg/ Hr Patch) 1 patch Q3DAYS TD ; Start 07/03/17 at 09: 00; Stop 07/03/17 at 09:00; Status DC Metoclopramide HCl (Reglan) 5 mg QIDAFTMEAL PO Last administered on 07/06/17 12:51; Start 06/30/17 at 18:00 Ondansetron HCl (Zofran Odt) 4 mg QIDPRN PRN PEG NAUSEA/VOMITING Last administered on 07/06/17 10:08; Start 06/30/17 at 14:15 Oxycodone/ Acetaminophen (Percocet 7.5/ 325) 1 tab PRN QID PRN PO PAIN Last administered on 07/06/17 05:21; Start 06/30/17 at 14:15 Pantoprazole Sodium (Protonix) 40 mg BIDAC PO ; Start 06/30/17 at 16:30; Stop 06/30/17 at 16:49; Status DC Albuterol Sulfate (Ventolin Neb Soln) 2.5 mg PRN Q4HRS PRN NEB SHORTNESS OF BREATH Last administered on 06/30/17 16:17; Start 06/30/17 at 14:45 Atenolol (Tenormin) 50 mg DAILY PEG Last administered on 07/06/17 10:07; Start 07/01/17 at 09:00 Cyproheptadine HCl (Periactin) 2 mg BID PEG Last administered on 07/06/17 10: 05; Start 06/30/17 at 21:00 Losartan Potassium (Cozaar) 100 mg DAILY PO Last administered on 07/06/17 10: 06; Start 07/01/17 at 09:00 Chlorthalidone (Thalitone) 25 mg DAILY PEG Last administered on 07/06/17 10: 07; Start 07/01/17 at 09:00 Lansoprazole (Prevacid) 30 mg BIDBFRMEAL FT Last administered on 07/04/17 10: 38; Start 07/01/17 at 07:30; Stop 07/04/17 at 13:20; Status DC Piperacillin Sod/ Tazobactam Sod (Zosyn Per Pharmacy) 1 each PRN DAILY PRN MC SEE COMMENTS; Start 06/30/17 at 21:00; Stop 06/30/17 at 21:00; Status DC Piperacillin Sod/ Tazobactam Sod (Zosyn Per Pharmacy) 1 each PRN DAILY PRN MC SEE COMMENTS; Start 06/30/17 at 18:00; Stop 07/01/17 at 09:25; Status DC Piperacillin Sod/ Tazobactam Sod 2.25 gm/Sodium Chloride 50 ml @ 100 mls/hr Q6HRS IV Last administered on 07/01/17 05:47; Start 06/30/17 at 18:30; Stop 07/01/17 at 09:25; Status DC Linezolid 300 ml @ 300 mls/hr Q12HR IV Last administered on 07/03/17 10:13; Start 06/30/17 at 19:30; Stop 07/03/17 at 14:01; Status DC Albuterol/ Ipratropium (Duoneb) 3 ml RTQID NEB Last administered on 07/03/17 16:27; Start 06/30/17 at 20:00; Stop 07/03/17 at 19:53; Status DC Scopolamine (Transderm-Scop) 1 patch Q3DAYS TD Last administered on 07/06/17 10:09; Start 06/30/17 at 22:00 Furosemide (Lasix) 20 mg 1X ONCE IVP Last administered on 06/30/17 23:25; Start 06/30/17 at 22:00; Stop 06/30/17 at 22:01; Status DC Fentanyl (Duragesic 50mcg/ Hr Patch) 1 patch Q3DAYS TD Last administered on 10:37; Start 07/01/17 at 09:00 Meropenem 1 gm/ Sodium Chloride 100 ml @ 200 mls/hr Q12HR IV Last administered on 07/05/17 20:47; Start 07/01/17 at 10:00; Stop 07/06/17 at 11 :08; Status DC Sodium Chloride 1,000 ml @ 75 mls/hr [id number] IV Last administered on 21:17; Start 07/02/17 at 17:45; Stop 07/06/17 at 11:31; Status DC Lactobacillus Rhamnosus (Culturelle) 1 cap BID PO Last administered on 07:40; Start 07/02/17 at 21:00; Stop 07/05/17 at 07:49; Status DC Metronidazole (Flagyl) 500 mg Q8HRS PO Last administered on 07/03/17 04:51; Start 07/02/17 at 20:00; Stop 07/03/17 at 14:01; Status DC Vancomycin HCl 125 mg [id number] PO Last administered on 07/06/17 12:51; Start 07/03/17 at 17:00 Albuterol/ Ipratropium (Duoneb) 3 ml Q4HRS NEB Last administered on 07/06/17 12:21; Start 07/03/17 at 20:00 Furosemide (Lasix) 20 mg 1X ONCE IVP Last administered on 07/03/17 21:14; Start 07/03/17 at 20:00; Stop 07/03/17 at 20:01; Status DC Methylprednisolone Sodium Succinate (SOLU-Medrol 125MG VIAL) 125 mg 1X ONCE IV Last administered on 07/03/17 21:14; Start 07/03/17 at 20:00; Stop at 20:01; Status DC Morphine Sulfate 4 mg PRN Q2HR PRN IV PAIN Last administered on 07/05/17 12: 59; Start 07/03/17 at 20:45 Famotidine (Pepcid) 20 mg BID PO Last administered on 07/06/17 10:07; Start 07/04/17 at 21:00 Lactobacillus Rhamnosus (Culturelle) 1 cap BID PO ; Start 07/06/17 at 21:00 Ciprofloxacin (Cipro) 500 mg BID PEG Last administered on 07/06/17 12:51; Start 07/06/17 at 11:00 Active Scripts Active Reported Diovan (Valsartan) 160 Mg Tablet 160 Mg PEG DAILY Pantoprazole Sodium 40 Mg Tablet.dr 40 Mg PEG BID Donepezil Hcl 5 Mg Tablet 5 Mg PEG BID Reglan (Metoclopramide Hcl) 10 Mg Tablet 5 Mg PO QIDAFTMEAL Atenolol-Chlorthal 50-25 Tb (Atenolol/Chlorthalidone) 1 Each Tablet 1 Tab PEG DAILY Cyproheptadine Hcl 2 Mg/5 Ml Syrup 2 Mg PEG BID Percocet 7.5-325 Mg Tablet (Oxycodone/Acetaminophen) 1 Each Tablet 1 Tab PO QID PRN Proair Hfa Inhaler (Albuterol Sulfate) 8.5 Gm Hfa.aer.ad 2 Puff IH PRN Q4-6HRS FENTANYL 50mcg/hr (Fentanyl) 1 Each Patch.td72 1 Patch TP Q3DAYS Ondansetron Odt (Ondansetron) 4 Mg Tab.rapdis 4 Mg PEG QIDPRN PRN Vitals/I & O Vital Sign - Last 24 Hours 07/05/17 07/05/17 07/05/17 07/05/17 13:29 15:00 15:44 19:00 Temp 97.6 97.7 97.6 97.7 Pulse 80 89 Resp 18 18 B/P (MAP) 87/47 (60) 123/67 (85) Pulse Ox 98 94 98 O2 Delivery Tracheal Collar ap neb Tracheal Collar O2 Flow Rate 3.0 10.0 8.0 10.0 07/05/17 07/05/17 07/05/17 07/05/17 19:45 20:14 20:46 22:52 Temp 97.7 97.7 Pulse 85 Resp 18 B/P (MAP) 138/69 (92) Pulse Ox 98 98 97 O2 Delivery Trach Collar ap neb Tracheal Collar O2 Flow Rate 8.0 8.0 8.0 10.0 1007/06/17 07/06/17 07/06/17 00:01 03:00 04:01 05:21 Temp 96.8 96.8 Pulse 79 Resp 18 B/P (MAP) 135/70 (91) Pulse Ox 99 100 99 99 O2 Delivery ap neb Tracheal Collar ap neb O2 Flow Rate 8.0 10.0 8.0 8.0 07/06/17 07/06/17 07/06/17 07/06/17 06:21 07:00 07:39 10:06 Temp 98.1 98.1 Pulse 82 82 Resp 18 B/P (MAP) 172/85 (114) 172/85 Pulse Ox 99 95 98 O2 Delivery Tracheal Collar ap neb O2 Flow Rate 8.0 8.0 07/06/17 07/06/17 10:07 11:30 Temp 98.4 98.4 Pulse 82 84 Resp 18 B/P (MAP) 172/85 155/85 (108) Pulse Ox 100 O2 Delivery Tracheal Collar Nutrition Consultation Dietary Evaluation: Comments: continue TF for total nutrition Expected Outcomes/Goals: to meet > 75% est nutr needs- not met, TF on hold for GI scan, resumed and bolus feeding given this am per nursing - tolerating well- goal ongoing Malnutrition Findings: Body Fat Depletion (Non Severe: Mild Depletion Weight Status: Appropriate JAVIER IRVIN MD Jul 06, 2017 13:15
[2017-07-06 15:00] VITALS: BP 160/81
--- NOTE | 2017-07-06 17:33 | RAD ---
INDICATION: resp fail COMPARISON: 07/03/2017 FINDINGS: Single view of chest obtained. Tracheostomy tube is seen. Port with tip near the expected location of the atriocaval junction. Mild interstitial opacities within the bilateral lungs. IMPRESSION: Mild interstitial opacities within the bilateral lungs as well as mild alveolar component near lung base is again seen. Could be secondary to mild edema or interstitial infiltrate although a portion of this is likely secondary to the patient's known chronic lung disease. Overall similar in severity when compared to prior.
[2017-07-06 19:00] VITALS: BP 140/77
[2017-07-06] MEDS: LACTOBACILLUS RHAMNOSUS GG 1 CAPSULE. PO SCH (21:59)
[2017-07-06 23:08] VITALS: BP 176/89
[2017-07-06] MEDS ORDERED: SCOPOLAMINE 1.5MG PATCH. TD ONE (23:30)
[2017-07-07] MEDS: oxyCODONE/APAP 7.5/325 1 TAB TABLET PO PRN ×2 (00:21→09:02)
[2017-07-07 02:53] VITALS: BP 170/92
[2017-07-07] MEDS: IPRATRPIUM/ALBUTEROL 0.5/2.5MG 3 ML NEBU. NEB SCH ×4 (03:23→15:07)
[2017-07-07 06:32] LABS: BASO # 0.1 x10^3/uL (0.0-0.2); BASO % 1 % (0-3); EOS % 2 % (0-3); HEMATOCRIT 36.7 % (36.0-47.0); HEMOGLOBIN 11.4 g/dL (12.0-15.5); LYMPH # 3.3 x10^3/uL (1.0-4.8); LYMPH % 22 % (24-48); MEAN CORPUSCULAR HEMOGLOBIN 25 pg (25-35); MEAN CORPUSCULAR HGB CONC 31 g/dL (31-37); MEAN CORPUSCULAR VOLUME 80 fL (79-100); MONO % 6 % (0-9); NEUT % 69 % (31-73); PLATELET COUNT 400 x10^3/uL (140-400); RED BLOOD COUNT 4.57 x10^6/uL (3.50-5.40); RED CELL DISTRIBUTION WIDTH 18.2 % (11.5-14.5); WHITE BLOOD COUNT 15.2 x10^3/uL (4.0-11.0)
[2017-07-07 06:48] LABS: CALCIUM 9.8 mg/dL (8.5-10.1); CREATININE 0.9 mg/dL (0.6-1.0); GFR 73.7; POTASSIUM 3.9 mmol/L (3.5-5.1)
[2017-07-07 07:00] VITALS: BP 182/90
[2017-07-07] MEDS: FAMOTIDINE 20 MG TABLET. PO SCH (09:03)
[2017-07-07] MEDS: LACTOBACILLUS RHAMNOSUS GG 1 CAPSULE. PO SCH (09:03)
[2017-07-07] MEDS: fentaNYL 50MCG/HR PATCH 1 PATCH PATCH.TD72 TD SCH (09:03)
[2017-07-07] MEDS: CIPROFLOXACIN HCL 250 MG TABLET. PEG SCH (09:03)
[2017-07-07] MEDS: LOSARTAN POTASSIUM 50 MG TABLET. PO SCH (09:03)
[2017-07-07] MEDS: CHLORTHALIDONE 25 MG TABLET. PEG SCH (09:04)
[2017-07-07] MEDS: ATENOLOL 50 MG TABLET. PEG SCH (09:04)
[2017-07-07] MEDS: CYPROHEPTADINE 4 MG TABLET. PEG SCH (09:05)
[2017-07-07] MEDS: VANCOMYCIN 125 MG/2.5 ML ORAL SOLUTION. PO SCH ×2 (09:05→12:39)
[2017-07-07] MEDS: METOCLOPRAMIDE 5 MG TABLET. PO SCH ×2 (09:05→12:39)
[2017-07-07] MEDS: DONEPEZIL HCL 5 MG TABLET. PEG SCH (09:05)
--- NOTE | 2017-07-07 10:31 | PDOC ---
Infectious Disease Note Subjective Subjective Better Denies increase cough, tracheal secessions or sanctioning No increase FiO2 demands Diarrhea and nausea ROS ROS GEN: Denies fevers, chills, sweats HEENT: Denies blurred vision, sore throat CV: Denies chest pain RESP: Denies shortness of air, cough GI: Denies n/v/d NEURO: Denies confusion, dizziness MSK: Denies weakness, joint pain/swelling Vital Sign Vital Signs Vital Signs Date Time Temp Pulse Resp B/P (MAP) Pulse Ox O2 Delivery O2 Flow Rate FiO2 07/07/17 09:04 90 182/90 07/07/17 09:03 Tracheal Collar 7.0 07/07/17 07:32 99 07/07/17 07:00 97.9 18 97.9 Physical Exam PHYSICAL EXAM GENERAL: NAD, coop, appears comfortable. alert and coop NECK: Tach shield LUNGS: Clear anteriorly HEART: S1 and S2 ABD: Soft, BS active, PEG EXT: No edema, no cyanosis PORTFOLIO ADMINISTRATOR: Arouses easily to name, nods to questions appropriately SKIN: No rash Port clean Periperal IV - out Labs Lab Laboratory Tests Test 07/07/17 05:05 White Blood Count 15.2 x10^3/uL (4.0-11.0) Red Blood Count 4.57 x10^6/uL (3.50-5.40) Hemoglobin 11.4 g/dL (12.0-15.5) Hematocrit 36.7 % (36.0-47.0) Mean Corpuscular Volume 80 fL (79-100) Mean Corpuscular Hemoglobin 25 pg (25-35) Mean Corpuscular Hemoglobin Concent 31 g/dL (31-37) Red Cell Distribution Width 18.2 % (11.5-14.5) Platelet Count 400 x10^3/uL (140-400) Neutrophils (%) (Auto) 69 % (31-73) Lymphocytes (%) (Auto) 22 % (24-48) Monocytes (%) (Auto) 6 % (0-9) Eosinophils (%) (Auto) 2 % (0-3) Basophils (%) (Auto) 1 % (0-3) Neutrophils # (Auto) 10.5 x10^3uL (1.8-7.7) Lymphocytes # (Auto) 3.3 x10^3/uL (1.0-4.8) Monocytes # (Auto) 0.9 x10^3/uL (0.0-1.1) Eosinophils # (Auto) 0.4 x10^3/uL (0.0-0.7) Basophils # (Auto) 0.1 x10^3/uL (0.0-0.2) Sodium Level 134 mmol/L (136-145) Potassium Level 3.9 mmol/L (3.5-5.1) Chloride Level 96 mmol/L (98-107) Carbon Dioxide Level 31 mmol/L (21-32) Anion Gap 7 (6-14) Blood Urea Nitrogen 19 mg/dL (7-20) Creatinine 0.9 mg/dL (0.6-1.0) Estimated GFR (Cockcroft-Gault) 73.7 Glucose Level 90 mg/dL (70-99) Calcium Level 9.8 mg/dL (8.5-10.1) Micro Pseudomonas aeruginosa Moderate growth * This is a corrected result. * A prior result that was reported as final has been changed. CONTINUED ON NEXT PAGE RUN DATE: 07/05/17 PAGE 2 RUN TIME: 1214 [facility] [address] [place] [address] Jorge Tierney M.D., Electronic Data Processing Auditor SPEC: [id number] PATIENT: BERNARDO DE LEON [id number] ( Continued) Procedure Result ANTIMICROBIAL SUSCEPTIBILITY Final Sputum 07/02 Comment S = Susceptible; I = Intermediate; R = Resistant P = Positive; N = Negative MICS are expressed in micrograms per mL Antibiotic RSLT#1 RSLT#2 RSLT#3 RSLT#4 Amikacin S Cefepime S Ceftazidime S Ciprofloxacin S Gentamicin S Imipenem R Levofloxacin S Meropenem S Piperacillin S Ticarcillin R Tobramycin S Performed at: [facility] Objective Assessment Acute resp failure ? aspiration PSA in sputum 07/02 on Meropenem Leukocytosis - mild increase today -solumedrol 07/03 SANCHEZ - better Encephalopathy - some better today Recent Ecoli as mentions above Plan Plan of Care Cont cipro per PEG until 07/12 Cont po vanc/probiotics QID until 07/25 then begin BID for 30 days F/u ID office 3 weeks [phone] . GWEN MCQUEEN MD Jul 07, 2017 10:30
[2017-07-07 11:00] VITALS: BP 144/73
--- NOTE | 2017-07-07 11:21 | PDOC ---
Objective: Objective: Per RN - no GI concerns. Vital Signs: Vital Signs Date Time Temp Pulse Resp B/P (MAP) Pulse Ox O2 Delivery O2 Flow Rate FiO2 07/07/17 11:06 Nasal Cannula 7.0 07/07/17 11:00 98.1 82 18 144/73 (96) 97 98.1 Labs: Laboratory Tests Test 07/07/17 05:05 White Blood Count 15.2 x10^3/uL Red Blood Count 4.57 x10^6/uL Hemoglobin 11.4 g/dL Hematocrit 36.7 % Mean Corpuscular Volume 80 fL Mean Corpuscular Hemoglobin 25 pg Mean Corpuscular Hemoglobin Concent 31 g/dL Red Cell Distribution Width 18.2 % Platelet Count 400 x10^3/uL Neutrophils (%) (Auto) 69 % Lymphocytes (%) (Auto) 22 % Monocytes (%) (Auto) 6 % Eosinophils (%) (Auto) 2 % Basophils (%) (Auto) 1 % Neutrophils # (Auto) 10.5 x10^3uL Lymphocytes # (Auto) 3.3 x10^3/uL Monocytes # (Auto) 0.9 x10^3/uL Eosinophils # (Auto) 0.4 x10^3/uL Basophils # (Auto) 0.1 x10^3/uL Sodium Level 134 mmol/L Potassium Level 3.9 mmol/L Chloride Level 96 mmol/L Carbon Dioxide Level 31 mmol/L Anion Gap 7 Blood Urea Nitrogen 19 mg/dL Creatinine 0.9 mg/dL Estimated GFR (Cockcroft-Gault) 73.7 Glucose Level 90 mg/dL Calcium Level 9.8 mg/dL PE: GEN: NAD LUNGS: trach HEART: RRR ABD: soft NEURO/PSYCH: sleeping, did not awaken during exam A/P: C Diff, recurrent -on PO vanc "Bloody stools" (fecal occult negative, Hgb stable) - resolved -Hgb stable w/ normal BUN, no previous colonoscopy -on BID H2 dinora Resp failure, oropharyngeal dysphagia -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 DC per primary. LE ROSENTHAL Jul 07, 2017 11:21
[2017-07-07] MEDS ORDERED: VANC500V PO (12:00)
[2017-07-07] MEDS ORDERED: CIPR250T30 PEG (12:00)
[2017-07-07] MEDS ORDERED: LACT1CAP19 PO (12:00)
--- NOTE | 2017-07-07 14:23 | PDOC3 ---
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 Ch is a 77 old F, has h/o larygeal Ca with mets, s/p sx. has trach , usually requires night o2, comes to hosp every month for PNA, sob, resp failure. family always wants aggressive treatment and cont FC. This time, again, pt is treated with iv abx for HAP, sputum cx + pseudomonas. need trach collar 8-10L for a few days, now off o2, and sat is ok. She also has thick sputum coming out around trach sometimes. She has PEG feeding, was found some bloody stool x2 nights, hb stable, fobt neg , gi on board, bleeding scan neg, no intervention. cdiff + again this time, no diarrhea, vanco started. dc home with HH, cont cipro for another 5ds, cont vanco then bid x30d. dc time 35min. General: Cooperative, No acute distress, Other (yellowish sputum in trach) Heart: Regular rate, Normal S1, Normal S2 Lungs: Other (bl coarse bs) Abdomen: Soft, Other (PEg in place) Extremities: Other (minimal subQ tissue) Skin: No rashes, No breakdown, No significant lesion Patient History: FH: HTN (hypertension) G8 BROTHER, Onset:Unknown G8 SISTER, Onset:Unknown G8 SISTER, Onset:Unknown G8 SISTER, Onset:Unknown G8 SISTER, Onset:Unknown FH: cancer G8 BROTHER, , Age:Unknown, Onset:Unknown G8 BROTHER, , Age:Unknown, Onset:Unknown G8 BROTHER, , Age:Unknown, Onset:Unknown G8 SON, , Age:Unknown, Onset:Unknown G8 SISTER, , Age:Unknown, Onset:Unknown G8 SISTER, , Age:Unknown, Onset:Unknown FH: diabetes mellitus G8 BROTHER, Onset:Unknown 32 MOTHER, , Age:60 years and older, Onset:Unknown G8 SISTER, Onset:Unknown FH: heart disease 32 MOTHER, , Age:60 years and older, Onset:Unknown FH: lung cancer 33 FATHER, , Age:40's - 50, Onset:Unknown Problems: Disposition HH CONDITION AT DISCHARGE: Improved, Stable Diet PEG feeding Scheduled Albuterol Sulfate (Proair Hfa Inhaler), 2 PUFF IH PRN Q4-6HRS, (Reported) Atenolol/Chlorthalidone (Atenolol-Chlorthal 50-25 Tb), 1 TAB PEG DAILY, ( Reported) Ciprofloxacin Hcl (Cipro), 500 MG PEG BID Cyproheptadine Hcl (Cyproheptadine Hcl), 2 MG PEG BID, (Reported) Donepezil Hcl (Donepezil Hcl), 5 MG PEG BID, (Reported) Fentanyl (FENTANYL 50mcg/hr), 1 PATCH TP Q3DAYS, (Reported) Lactobacillus Rhamnosus Gg (Culturelle), 1 CAP PO BID Metoclopramide Hcl (Reglan), 5 MG PO QIDAFTMEAL, (Reported) Pantoprazole Sodium (Pantoprazole Sodium), 40 MG PEG BID, (Reported) Valsartan (Diovan), 160 MG PEG DAILY, (Reported) Vancomycin Hcl (Vancomycin Hcl), 125 MG PO [id number] Scheduled PRN Ondansetron (Ondansetron Odt), 4 MG PEG QIDPRN PRN for NAUSEA/VOMITING, ( Reported) Oxycodone/Apap 7.5-325 (Percocet 7.5-325 Mg Tablet), 1 TAB PO QID PRN for PAIN, (Reported) Follow Up pcp in 2 weeks JAVIER IRVIN MD Jul 07, 2017 14:23
--- NOTE | 2017-07-07 14:39 | PDOC ---
PULMONARY PROGRESS NOTES Subjective PT FEELS BETTER LESS SOA Vitals Vital Signs Date Time Temp Pulse Resp B/P (MAP) Pulse Ox O2 Delivery O2 Flow Rate FiO2 07/07/17 11:16 96 ap neb 8.0 07/07/17 11:00 98.1 82 18 144/73 (96) 98.1 ROS: No Chest Pain, No Increase Cough General: Alert HEENT: Other Lungs: Other (bl coarse bs) Cardiovascular: S1, S2 Abdomen: Soft, Non-tender, Other Neuro Exam: Alert Extremities: No Edema Skin: Warm Labs Laboratory Tests Test 07/07/17 05:05 White Blood Count 15.2 x10^3/uL (4.0-11.0) Red Blood Count 4.57 x10^6/uL (3.50-5.40) Hemoglobin 11.4 g/dL (12.0-15.5) Hematocrit 36.7 % (36.0-47.0) Mean Corpuscular Volume 80 fL (79-100) Mean Corpuscular Hemoglobin 25 pg (25-35) Mean Corpuscular Hemoglobin Concent 31 g/dL (31-37) Red Cell Distribution Width 18.2 % (11.5-14.5) Platelet Count 400 x10^3/uL (140-400) Neutrophils (%) (Auto) 69 % (31-73) Lymphocytes (%) (Auto) 22 % (24-48) Monocytes (%) (Auto) 6 % (0-9) Eosinophils (%) (Auto) 2 % (0-3) Basophils (%) (Auto) 1 % (0-3) Neutrophils # (Auto) 10.5 x10^3uL (1.8-7.7) Lymphocytes # (Auto) 3.3 x10^3/uL (1.0-4.8) Monocytes # (Auto) 0.9 x10^3/uL (0.0-1.1) Eosinophils # (Auto) 0.4 x10^3/uL (0.0-0.7) Basophils # (Auto) 0.1 x10^3/uL (0.0-0.2) Sodium Level 134 mmol/L (136-145) Potassium Level 3.9 mmol/L (3.5-5.1) Chloride Level 96 mmol/L (98-107) Carbon Dioxide Level 31 mmol/L (21-32) Anion Gap 7 (6-14) Blood Urea Nitrogen 19 mg/dL (7-20) Creatinine 0.9 mg/dL (0.6-1.0) Estimated GFR (Cockcroft-Gault) 73.7 Glucose Level 90 mg/dL (70-99) Calcium Level 9.8 mg/dL (8.5-10.1) Laboratory Tests Test 07/07/17 05:05 White Blood Count 15.2 x10^3/uL (4.0-11.0) Red Blood Count 4.57 x10^6/uL (3.50-5.40) Hemoglobin 11.4 g/dL (12.0-15.5) Hematocrit 36.7 % (36.0-47.0) Mean Corpuscular Volume 80 fL (79-100) Mean Corpuscular Hemoglobin 25 pg (25-35) Mean Corpuscular Hemoglobin Concent 31 g/dL (31-37) Red Cell Distribution Width 18.2 % (11.5-14.5) Platelet Count 400 x10^3/uL (140-400) Neutrophils (%) (Auto) 69 % (31-73) Lymphocytes (%) (Auto) 22 % (24-48) Monocytes (%) (Auto) 6 % (0-9) Eosinophils (%) (Auto) 2 % (0-3) Basophils (%) (Auto) 1 % (0-3) Neutrophils # (Auto) 10.5 x10^3uL (1.8-7.7) Lymphocytes # (Auto) 3.3 x10^3/uL (1.0-4.8) Monocytes # (Auto) 0.9 x10^3/uL (0.0-1.1) Eosinophils # (Auto) 0.4 x10^3/uL (0.0-0.7) Basophils # (Auto) 0.1 x10^3/uL (0.0-0.2) Sodium Level 134 mmol/L (136-145) Potassium Level 3.9 mmol/L (3.5-5.1) Chloride Level 96 mmol/L (98-107) Carbon Dioxide Level 31 mmol/L (21-32) Anion Gap 7 (6-14) Blood Urea Nitrogen 19 mg/dL (7-20) Creatinine 0.9 mg/dL (0.6-1.0) Estimated GFR (Cockcroft-Gault) 73.7 Glucose Level 90 mg/dL (70-99) Calcium Level 9.8 mg/dL (8.5-10.1) Medications Active Scripts Medications Dose Route/Sig Max Daily Dose Days Date Category Diovan (Valsartan) 160 Mg Tablet 160 Mg PEG DAILY 03/11/17 Reported Pantoprazole Sodium 40 Mg Tablet.dr 40 Mg PEG BID 03/11/17 Reported Donepezil Hcl 5 Mg Tablet 5 Mg PEG BID 03/11/17 Reported Reglan (Metoclopramide Hcl) 10 Mg Tablet 5 Mg PO QIDAFTMEAL 03/11/17 Reported Atenolol-Chlorthal 50-25 Tb (Atenolol/Chlorthalidone) 1 Each Tablet 1 Tab PEG DAILY 03/11/17 Reported Cyproheptadine Hcl 2 Mg/5 Ml Syrup 2 Mg PEG BID 03/11/17 Reported Percocet 7.5-325 Mg Tablet (Oxycodone/Acetaminophen) 1 Each Tablet 1 Tab PO QID PRN 03/11/17 Reported Proair Hfa Inhaler (Albuterol Sulfate) 8.5 Gm Hfa.aer.ad 2 Puff IH PRN Q4-6HRS 08/16/15 Reported FENTANYL 50mcg/hr (Fentanyl) 1 Each Patch.td72 1 Patch TP Q3DAYS 06/19/14 Reported Ondansetron Odt (Ondansetron) 4 Mg Tab.rapdis 4 Mg PEG QIDPRN PRN 06/19/14 Reported Impression . 1. Acute on chronic respiratory failure, multifactorial. 2. Suspected Gram-negative and gram-positive pneumonia. 3. Abnormal x-ray compatible with the above. 4. 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 5. History of Pseudomonas and methicillin-resistant Staphylococcus aureus pneumonia. 6. Possible Aspiration PN 7. wheezing 8. c diff colitis Plan . D/C TODAY 1. continue oxygen supplementation. cont bronchodilator , ics, 2. ANTIBX PE ID 3. tolerating tube feeding 4. D/C TODAY 5. elevate hob 6. monitor wbc ANURAG LOO MD Jul 07, 2017 14:39
[2017-07-07 15:00] VITALS: BP 153/81
[2017-07-09] MEDS ORDERED: SCOPOLAMINE 1.5MG PATCH. TD SCH (09:00)
== END 2017-07-07 18:40 | disposition home health service (06) | DRG 871 ==
LOC: ER 11:08 → ED HOLD 11:10 → 5 NORTH 15:20
PROVIDERS: ADMIT Internal Medicine; ATTEND Internal Medicine
DX: A41.9 Sepsis, unspecified organism (principal); J69.0 Pneumonitis due to inhalation of food and vomit; J96.21 Acute and chronic respiratory failure with hypoxia; N17.0 Acute kidney failure with tubular necrosis; G93.41 Metabolic encephalopathy; A04.71 Enterocolitis due to Clostridium difficile, recurrent; J90 Pleural effusion, not elsewhere classified; J96.22 Acute and chronic respiratory failure with hypercapnia; C78.00 Secondary malignant neoplasm of unspecified lung; E44.1 Mild protein-calorie malnutrition; Z43.1 Encounter for attention to gastrostomy; C32.9 Malignant neoplasm of larynx, unspecified; E11.22 Type 2 diabetes mellitus with diabetic chronic kidney disease; E11.43 Type 2 diabetes mellitus with diabetic autonomic (poly)neuropathy; Z68.20 Body mass index [BMI] 20.0-20.9, adult; E78.00 Pure hypercholesterolemia, unspecified; G47.30 Sleep apnea, unspecified; I12.9 Hypertensive chronic kidney disease with stage 1 through stage 4 chronic kidney disease, or unspecified chronic kidney disease; J44.9 Chronic obstructive pulmonary disease, unspecified; K21.9 Gastro-esophageal reflux disease without esophagitis; K31.84 Gastroparesis; K59.00 Constipation, unspecified; N18.3 Chronic kidney disease, stage 3 (moderate); R13.12 Dysphagia, oropharyngeal phase; Y95 Nosocomial condition; F41.9 Anxiety disorder, unspecified; M19.90 Unspecified osteoarthritis, unspecified site; R13.10 Dysphagia, unspecified; Z16.11 Resistance to penicillins; Z82.49 Family history of ischemic heart disease and other diseases of the circulatory system; Z85.118 Personal history of other malignant neoplasm of bronchus and lung; Z85.21 Personal history of malignant neoplasm of larynx; Z86.14 Personal history of Methicillin resistant Staphylococcus aureus infection; Z87.11 Personal history of peptic ulcer disease; Z87.891 Personal history of nicotine dependence; Z92.21 Personal history of antineoplastic chemotherapy; Z92.3 Personal history of irradiation; Z93.0 Tracheostomy status; Z93.1 Gastrostomy status; Z93.3 Colostomy status
CPT/HCPCS: 36415; 36600; 71010; 78278; 80048; 80053; 82274; 82553; 82805; 83605; 83690; 83735; 83880; 84443; 84484; 85007; 85025; 87040; 87070; 87186; 87205; 87324; 87641; 93005; 94640; 94660; 94760; 96361; 96365; 96367; 96374; A9560; J0456; J0690; J0780; J2020; J2185; J2270; J2405; J2543; J2930; J7030; J7613; J7620; J8597; Q0162; 97110; 99285-25

== ENCOUNTER 2017-08-01 23:44 | Emergency (ER) | payer MEDICARE, OTHER ==
[~2017-08-01] VITALS: Ht 175.3 cm; Wt 59.0 kg
[~2017-08-01 23:44] MED LIST changes: +CIPR250T30 PEG; +LACT1CAP19 PO; +VANC500V PO
--- NOTE | 2017-08-01 23:58 | PHYS DOC ---
Past Medical History Past Medical History: Cancer, Hypertension, MRSA, Pneumonia, Other Additional Past Medical Histor: LUNG AND LYMPH NODES CANCER, orig dx: 2009. Had chemo & radiation in 2008 Past Surgical History: Other Additional Past Surgical Histo: cataract, PEG tube, ca, TRACH, COLOSTOMY Alcohol Use: None Drug Use: None Adult General Chief Complaint Chief Complaint: OTHER COMPLAINTS HPI HPI Patient is a 77 year old F who presents with PEG tube pulled out. Patient was brought in by daughter who is her caregiver and states they were attempting to use the feeding tube tonight and it fell out. Patient has no other complaints. Patient did bring in the feeding tube however unable to read what Austrian it is. Review of Systems Review of Systems GEN: Denies fevers, chills, sweats HEENT: Denies blurred vision, sore throat CV: Denies chest pain RESP: Denies shortness of air, cough GI: Denies n/v/d NEURO: Denies confusion, dizziness MSK: Denies weakness, joint pain/swelling All other systems were reviewed and found to be within normal limits, except as documented in this note. Allergies Allergies Allergies Coded Allergies Type Severity Reaction Last Updated Verified aspirin Allergy Intermediate hives 03/16/17 Yes Physical Exam Physical Exam GEN.: No apparent distress. Alert and oriented. HEENT: Head is normocephalic, atraumatic NECK: Supple, trachea whole in place LUNGS: Coarse breath sounds bilaterally. HEART: RRR, S1, S2 present. Peripheral pulses intact ABDOMEN: Soft, nontender, G-tube hole left upper quadrant. Positive bowel sounds. EXTREMITIES: Without any cyanosis. NEUROLOGIC: Normal speech, normal tone PSYCHIATRIC: Normal affect, normal mood. SKIN: No ulcerations Current Patient Data Vital Signs Vital Signs Date Time Temp Pulse Resp B/P (MAP) Pulse Ox O2 Delivery O2 Flow Rate FiO2 08/02/17 01:25 80 18 175/75 (108) 94 Tracheal Collar 4.0 08/01/17 23:50 98.6 98.6 EKG EKG [] Radiology/Procedures Radiology/Procedures PEG-tube insertion: Area was cleaned and prepped with chlorhexidine 18 Austrian PEG tube was inserted and 6 mL of sterile water was used to inflate the balloon Confirmatory x-ray was ordered KUB: PEG tube in place[] Course & Med Decision Making Course & Med Decision Making Pertinent Labs and Imaging studies reviewed. (See chart for details) MDM: After reviewing the chart, CC/HPI/PMH, physical exam, [radiological results], I do not believe the patient has emergent medical condition warranting further workup and/or admission at this time. Patient just needed her PEG tube replaced and the tube was replaced without any complications and a confirmatory x-ray confirmed placement. She was stable for discharge. Additional verbal discharge instructions were provided to the patient and that if symptoms get worse or any new symptoms arise that are worrisome to the patient she is to return to the emergency room immediately [] Dragon Disclaimer Dragon Disclaimer This electronic medical record was generated, in whole or in part, using a voice recognition dictation system. Departure Departure Impression: Primary Impression: PEG tube malfunction Disposition: 01 HOME, SELF-CARE Condition: STABLE Referrals: CATHERINE MOSCOSO MD (PCP) Patient Instructions: PEG, Home Care, [id number] Additional Instructions: Please follow-up with your family doctor in the next one to 2 days return if symptoms increase JAMEEL ROMERO DO Aug 01, 2017 23:58
--- NOTE | 2017-08-02 01:12 | RAD ---
KUB: Reason for examination: G-tube was pulled on. G-tube placement with contrast. 20 cc Omnipaque 240 was administered through the G-tube during G tube placement. G-tube is present in the right upper quadrant and there is contrast seen in the region of the stomach. There is no gross organomegaly. Psoas muscles are symmetric. The bowel gas pattern is nonspecific. IMPRESSION: G-tube present in the right upper quadrant with contrast appearing to be within the stomach. Electronically signed by: Eleanor Strauss MD (08/02/2017 1:10 AM) [facility]
[2017-08-02 01:25] VITALS: BP 175/75
== END 2017-08-02 01:25 | disposition home or self-care (01) ==
LOC: ER 23:44
DX: K94.23 Gastrostomy malfunction (principal); I10 Essential (primary) hypertension; Z88.6 Allergy status to analgesic agent; Z87.01 Personal history of pneumonia (recurrent); Z98.49 Cataract extraction status, unspecified eye
CPT/HCPCS: 43760; 74000; 99284-25

== ENCOUNTER 2017-11-03 13:07 | Emergency (ER) | payer MEDICARE, OTHER ==
[2017-11-03 13:58] LABS: BILIRUBIN,URINE NEGATIVE (NEG); CLARITY,URINE CLOUDY; COLOR,URINE YELLOW; GLUCOSE,URINE NEGATIVE (NEG); NITRITE,URINE NEGATIVE (NEG); PROTEIN,URINE NEGATIVE (NEG-TRACE); UROBILINOGEN,URINE 0.2 mg/dL (0.2 mg/dL)
[2017-11-03 13:59] LABS: BACTERIA,URINE 0 /HPF (0-FEW); RBC,URINE 0 /HPF (0-2); SQUAMOUS EPITHELIAL CELL,UR FEW /LPF; WBC,URINE 0 /HPF (0-4)
[2017-11-03] MEDS: IV NORMAL SALINE 1000ML BAG 1,000 ML IV ×2 (14:29)
[2017-11-03 14:37] LABS: ADD MAN DIFF? NO
[2017-11-03 14:41] LABS: BASO # 0.1 x10^3/uL (0.0-0.2); BASO % 1 % (0-3); EOS # 0.2 x10^3/uL (0.0-0.7); EOS % 2 % (0-3); HEMATOCRIT 34.4 % (36.0-47.0); HEMOGLOBIN 11.1 g/dL (12.0-15.5); LYMPH # 3.4 x10^3/uL (1.0-4.8); LYMPH % 38 % (24-48); MEAN CORPUSCULAR HEMOGLOBIN 27 pg (25-35); MEAN CORPUSCULAR HGB CONC 32 g/dL (31-37); MEAN CORPUSCULAR VOLUME 84 fL (79-100); MONO # 0.7 x10^3/uL (0.0-1.1); MONO % 8 % (0-9); NEUT # 4.6 x10^3uL (1.8-7.7); NEUT % 52 % (31-73); PLATELET COUNT 318 x10^3/uL (140-400); RED BLOOD COUNT 4.08 x10^6/uL (3.50-5.40); RED CELL DISTRIBUTION WIDTH 15.7 % (11.5-14.5); WHITE BLOOD COUNT 8.9 x10^3/uL (4.0-11.0)
[2017-11-03 14:48] LABS: ANION GAP 5 (6-14); BLOOD UREA NITROGEN 50 mg/dL (7-20); BUN/CREATININE RATIO 28 (6-20); CALCIUM 8.8 mg/dL (8.5-10.1); CARBON DIOXIDE 38 mmol/L (21-32); CHLORIDE 94 mmol/L (98-107); CREATININE 1.8 mg/dL (0.6-1.0); GFR 33.1; GLUCOSE 82 mg/dL (70-99); POTASSIUM 3.7 mmol/L (3.5-5.1); SODIUM 137 mmol/L (136-145)
[2017-11-03 14:55] LABS: ALBUMIN 2.9 g/dL (3.4-5.0); ALBUMIN/GLOBULIN RATIO 0.5 (1.0-1.7); ALK PHOS 81 U/L (46-116); ALT (SGPT) 30 U/L (14-59); AST (SGOT) 32 U/L (15-37); TOTAL BILIRUBIN 0.4 mg/dL (0.2-1.0); TOTAL PROTEIN 8.2 g/dL (6.4-8.2)
[2017-11-03] MEDS: HEPARIN PF 500 UNIT/5 ML DISP.SYRIN. IV ×2 (16:13)
== END 2017-11-03 16:20 | disposition home or self-care (01) ==
LOC: ER 13:07
DX: N28.9 Disorder of kidney and ureter, unspecified (principal); E86.0 Dehydration; I10 Essential (primary) hypertension; Z93.3 Colostomy status; Z88.6 Allergy status to analgesic agent
CPT/HCPCS: 36415; 80053; 81001; 85025; 87086; 93005; 96361; 96374; 99285-25; J7030

== ENCOUNTER 2017-12-05 08:08 | Emergency (ER) | payer MEDICARE, OTHER ==
[2017-12-05] MEDS: OXYMETAZOLINE 0.05% NASAL SPRAY 30ML BOTTLE. NS (08:35)
[2017-12-05] MEDS: PHYTONADIONE 10 MG/ML AMPUL. IM (08:48)
[2017-12-05 08:50] LABS: ADD MAN DIFF? NO
[2017-12-05 08:57] LABS: BASO % 1 % (0-3); EOS # 0.2 x10^3/uL (0.0-0.7); EOS % 2 % (0-3); HEMATOCRIT 37.8 % (36.0-47.0); LYMPH # 2.5 x10^3/uL (1.0-4.8); LYMPH % 31 % (24-48); MEAN CORPUSCULAR HEMOGLOBIN 27 pg (25-35); MEAN CORPUSCULAR HGB CONC 32 g/dL (31-37); MEAN CORPUSCULAR VOLUME 85 fL (79-100); MONO # 0.7 x10^3/uL (0.0-1.1); MONO % 9 % (0-9); NEUT # 4.6 x10^3uL (1.8-7.7); NEUT % 58 % (31-73); PLATELET COUNT 387 x10^3/uL (140-400); RED BLOOD COUNT 4.44 x10^6/uL (3.50-5.40); RED CELL DISTRIBUTION WIDTH 15.3 % (11.5-14.5)
[2017-12-05 09:06] LABS: ANION GAP 5 (6-14); BLOOD UREA NITROGEN 33 mg/dL (7-20); BUN/CREATININE RATIO 28 (6-20); CALCIUM 9.6 mg/dL (8.5-10.1); CARBON DIOXIDE 35 mmol/L (21-32); CHLORIDE 98 mmol/L (98-107); CREATININE 1.2 mg/dL (0.6-1.0); GFR 52.9; GLUCOSE 107 mg/dL (70-99); POTASSIUM 3.7 mmol/L (3.5-5.1); SODIUM 138 mmol/L (136-145)
[2017-12-05 09:11] LABS: ALBUMIN 3.1 g/dL (3.4-5.0); ALBUMIN/GLOBULIN RATIO 0.6 (1.0-1.7); ALK PHOS 77 U/L (46-116); ALT (SGPT) 22 U/L (14-59); AST (SGOT) 22 U/L (15-37); TOTAL BILIRUBIN 0.3 mg/dL (0.2-1.0); TOTAL PROTEIN 8.6 g/dL (6.4-8.2)
[2017-12-05 13:33] LABS: ISTAT INR 1.2 (0.9-1.1); ISTAT PT 14.7 Sec (10.0-14.0)
== END 2017-12-05 11:20 | disposition home or self-care (01) ==
LOC: ER 11:20
DX: R04.0 Epistaxis (principal); I10 Essential (primary) hypertension; Z86.14 Personal history of Methicillin resistant Staphylococcus aureus infection; Z88.6 Allergy status to analgesic agent
CPT/HCPCS: 31502; 36415; 80053; 85025; 85610; 96372; 99284-25; J3430

== ENCOUNTER 2017-12-14 10:50 | Inpatient (IN) | payer MEDICARE, OTHER ==
[2017-12-14] MEDS: IPRATRPIUM/ALBUTEROL 0.5/2.5MG 3 ML NEBU. NEB ×3 (11:51→19:51)
[2017-12-14] MEDS: oxyCODONE/APAP 7.5/325 1 TAB TABLET PO (11:57)
[2017-12-14 12:04] LABS: BASO # 0.1 x10^3/uL (0.0-0.2); BASO % 0 % (0-3); EOS % 0 % (0-3); HEMATOCRIT 34.4 % (36.0-47.0); HEMOGLOBIN 11.1 g/dL (12.0-15.5); LYMPH % 9 % (24-48); MEAN CORPUSCULAR HEMOGLOBIN 27 pg (25-35); MEAN CORPUSCULAR HGB CONC 32 g/dL (31-37); MEAN CORPUSCULAR VOLUME 84 fL (79-100); MONO # 0.6 x10^3/uL (0.0-1.1); MONO % 3 % (0-9); NEUT # 19.5 x10^3uL (1.8-7.7); NEUT % 88 % (31-73); PLATELET COUNT 375 x10^3/uL (140-400); RED BLOOD COUNT 4.09 x10^6/uL (3.50-5.40); RED CELL DISTRIBUTION WIDTH 15.1 % (11.5-14.5); WHITE BLOOD COUNT 22.2 x10^3/uL (4.0-11.0)
[2017-12-14 12:06] LABS: ADD MAN DIFF? YES
[2017-12-14 12:13] LABS: ANION GAP 7 (6-14); BLOOD UREA NITROGEN 30 mg/dL (7-20); CALCIUM 9.6 mg/dL (8.5-10.1); CARBON DIOXIDE 35 mmol/L (21-32); CHLORIDE 97 mmol/L (98-107); CREATININE 1.3 mg/dL (0.6-1.0); GFR 48.2; GLUCOSE 144 mg/dL (70-99); POTASSIUM 3.8 mmol/L (3.5-5.1); SODIUM 139 mmol/L (136-145)
[2017-12-14 13:02] LABS: % LYMPHS 7 % (24-48); % MONOS 7 % (0-10); % SEGS 86 % (35-66); ANISOCYTOSIS SLIGHT; PLT ESTIMATE ADEQUATE (ADEQUATE)
[2017-12-14] MEDS ORDERED: levOFLOXacin PER PHARMACY. MC (13:30)
[2017-12-14] MEDS ORDERED: PIP/TAZO PER PHARMACY MC (13:30)
[2017-12-14] MEDS: PIPERACILLIN/TAZOBACTAM 3.375 GM in IV NORMAL SALINE 100ML 100 ML IV (13:57)
[2017-12-14] MEDS: IV NORMAL SALINE 1000ML BAG 1,000 ML IV ×2 (13:58→23:39)
[2017-12-14] MEDS: VANCOMYCIN 1.5 GM in IV DEXTROSE 5% 500 ML IV (13:59)
[2017-12-14] MEDS: ACETAMINOPHEN 325 MG TABLET. PO (14:36)
[2017-12-14 15:39] LABS: LACTIC ACID 1.3 mmol/L (0.4-2.0)
[2017-12-14] MEDS: VANCOMYCIN PER PHARMACY MC ×2 (16:38→16:45)
[2017-12-14] MEDS ORDERED: METOCLOPRAMIDE 10 MG TABLET. PO (18:00)
[2017-12-14] MEDS ORDERED: ONDANSETRON ODT 4 MG TAB.RAPDIS. PEG (18:00)
[2017-12-14] MEDS ORDERED: oxyCODONE/APAP 7.5/325 1 TAB TABLET PO (18:00)
[2017-12-14] MEDS ORDERED: ALBUTEROL SULFATE 2.5 MG/3 ML NEBU. NEB (18:15)
[2017-12-14] MEDS: fentaNYL 50MCG/HR PATCH 1 PATCH PATCH.TD72 TD (18:42)
[2017-12-14] MEDS: LANSOPRAZOLE 30 MG TAB.RAP.DR FT (18:43)
[2017-12-14] MEDS: METOCLOPRAMIDE 10 MG TABLET. PEG ×2 (18:43→21:13)
[2017-12-14] MEDS: PIPERACILLIN/TAZOBACTAM 3.375 GM in IV NORMAL SALINE 50ML 50 ML IV (21:11)
[2017-12-14] MEDS: LACTOBACILLUS RHAMNOSUS GG 1 CAPSULE. PO (21:12)
[2017-12-14] MEDS: DONEPEZIL HCL 5 MG TABLET. PEG (21:12)
[2017-12-14] MEDS: CYPROHEPTADINE 4 MG TABLET. PEG (21:12)
[2017-12-14] MEDS: oxyCODONE/APAP 7.5/325 1 TAB TABLET PEG (21:12)
[2017-12-14] MEDS: ONDANSETRON PF 4 MG/2 ML VIAL. IV (21:49)
[2017-12-15] MEDS: PIPERACILLIN/TAZOBACTAM 3.375 GM in IV NORMAL SALINE 50ML 50 ML IV ×5 (00:44→23:17)
[2017-12-15 06:17] LABS: ADD MAN DIFF? NO
[2017-12-15 06:29] LABS: BASO # 0.1 x10^3/uL (0.0-0.2); BASO % 0 % (0-3); EOS # 0.1 x10^3/uL (0.0-0.7); EOS % 1 % (0-3); HEMATOCRIT 31.2 % (36.0-47.0); HEMOGLOBIN 9.8 g/dL (12.0-15.5); LYMPH # 2.9 x10^3/uL (1.0-4.8); LYMPH % 18 % (24-48); MEAN CORPUSCULAR HEMOGLOBIN 27 pg (25-35); MEAN CORPUSCULAR HGB CONC 31 g/dL (31-37); MEAN CORPUSCULAR VOLUME 86 fL (79-100); MONO # 1.2 x10^3/uL (0.0-1.1); MONO % 7 % (0-9); NEUT % 74 % (31-73); PLATELET COUNT 321 x10^3/uL (140-400); RED BLOOD COUNT 3.64 x10^6/uL (3.50-5.40); RED CELL DISTRIBUTION WIDTH 15.5 % (11.5-14.5); WHITE BLOOD COUNT 16.2 x10^3/uL (4.0-11.0)
[2017-12-15 06:51] LABS: ANION GAP 9 (6-14); BLOOD UREA NITROGEN 21 mg/dL (7-20); CARBON DIOXIDE 30 mmol/L (21-32); CHLORIDE 102 mmol/L (98-107); CREATININE 1.3 mg/dL (0.6-1.0); GFR 48.2; GLUCOSE 84 mg/dL (70-99); POTASSIUM 3.1 mmol/L (3.5-5.1); SODIUM 141 mmol/L (136-145)
[2017-12-15] MEDS: IPRATRPIUM/ALBUTEROL 0.5/2.5MG 3 ML NEBU. NEB ×4 (08:02→20:00)
[2017-12-15] MEDS: IV NORMAL SALINE 1000ML BAG 1,000 ML IV (08:46)
[2017-12-15] MEDS: ATENOLOL 50 MG TABLET. PEG (08:47)
[2017-12-15] MEDS: LANSOPRAZOLE 30 MG TAB.RAP.DR FT ×2 (08:47→16:00)
[2017-12-15] MEDS: LOSARTAN POTASSIUM 50 MG TABLET. PEG (08:48)
[2017-12-15] MEDS: LACTOBACILLUS RHAMNOSUS GG 1 CAPSULE. PO ×2 (08:48→21:28)
[2017-12-15] MEDS: DONEPEZIL HCL 5 MG TABLET. PEG ×2 (08:48→21:28)
[2017-12-15] MEDS: CYPROHEPTADINE 4 MG TABLET. PEG ×2 (08:48→21:28)
[2017-12-15] MEDS: METOCLOPRAMIDE 10 MG TABLET. PEG ×4 (08:48→21:28)
[2017-12-15] MEDS: VANCOMYCIN 1 GM in IV DEXTROSE 5 %-0.2 % NACL 250 ML IV (15:58)
[2017-12-16] MEDS: PIPERACILLIN/TAZOBACTAM 3.375 GM in IV NORMAL SALINE 50ML 50 ML IV ×3 (05:10→21:10)
[2017-12-16 06:22] LABS: CREATININE 0.9 mg/dL (0.6-1.0)
[2017-12-16 06:22] LABS: GFR 73.7
[2017-12-16] MEDS: IPRATRPIUM/ALBUTEROL 0.5/2.5MG 3 ML NEBU. NEB ×4 (07:57→19:39)
[2017-12-16] MEDS: CYPROHEPTADINE 4 MG TABLET. PEG ×2 (08:29→21:11)
[2017-12-16] MEDS: LACTOBACILLUS RHAMNOSUS GG 1 CAPSULE. PO ×2 (08:29→21:11)
[2017-12-16] MEDS: METOCLOPRAMIDE 10 MG TABLET. PEG ×4 (08:29→21:11)
[2017-12-16] MEDS: LANSOPRAZOLE 30 MG TAB.RAP.DR FT ×2 (08:29→17:35)
[2017-12-16] MEDS: DONEPEZIL HCL 5 MG TABLET. PEG ×2 (08:29→21:11)
[2017-12-16] MEDS: ATENOLOL 50 MG TABLET. PEG (08:30)
[2017-12-16] MEDS: oxyCODONE/APAP 7.5/325 1 TAB TABLET PEG ×3 (08:30→21:56)
[2017-12-16] MEDS: LOSARTAN POTASSIUM 50 MG TABLET. PEG (08:31)
[2017-12-16 13:57] LABS: VANC TR 11.5 mcg/mL (10.0-20.0)
[2017-12-16] MEDS: VANCOMYCIN PER PHARMACY MC (14:50)
[2017-12-16] MEDS: VANCOMYCIN 1 GM in IV DEXTROSE 5 %-0.2 % NACL 250 ML IV (16:07)
[2017-12-17] MEDS: PIPERACILLIN/TAZOBACTAM 3.375 GM in IV NORMAL SALINE 50ML 50 ML IV ×4 (01:34→17:39)
[2017-12-17] MEDS: oxyCODONE/APAP 7.5/325 1 TAB TABLET PEG ×2 (04:15→17:27)
[2017-12-17 06:24] LABS: CREATININE 0.9 mg/dL (0.6-1.0)
[2017-12-17 06:24] LABS: GFR 73.7
[2017-12-17] MEDS: IPRATRPIUM/ALBUTEROL 0.5/2.5MG 3 ML NEBU. NEB ×4 (07:38→20:11)
[2017-12-17] MEDS: VANCOMYCIN 1 GM in IV DEXTROSE 5 %-0.2 % NACL 250 ML IV (08:19)
[2017-12-17] MEDS: DONEPEZIL HCL 5 MG TABLET. PEG ×2 (08:20→20:50)
[2017-12-17] MEDS: fentaNYL 50MCG/HR PATCH 1 PATCH PATCH.TD72 TD (08:20)
[2017-12-17] MEDS: LANSOPRAZOLE 30 MG TAB.RAP.DR FT ×2 (08:20→17:27)
[2017-12-17] MEDS: LOSARTAN POTASSIUM 50 MG TABLET. PEG (08:21)
[2017-12-17] MEDS: METOCLOPRAMIDE 10 MG TABLET. PEG ×4 (08:21→20:51)
[2017-12-17] MEDS: CYPROHEPTADINE 4 MG TABLET. PEG ×2 (08:22→20:50)
[2017-12-17] MEDS: ATENOLOL 50 MG TABLET. PEG (08:22)
[2017-12-17] MEDS: LACTOBACILLUS RHAMNOSUS GG 1 CAPSULE. PO ×2 (08:22→20:50)
[2017-12-17] MEDS: VANCOMYCIN PER PHARMACY MC ×2 (14:49→14:51)
[2017-12-17] MEDS ORDERED: VANCOMYCIN 1 GM in IV DEXTROSE 5 %-0.2 % NACL 250 ML IV (21:00)
[2017-12-18] MEDS: PIPERACILLIN/TAZOBACTAM 3.375 GM in IV NORMAL SALINE 50ML 50 ML IV ×2 (00:39→06:22)
[2017-12-18] MEDS: oxyCODONE/APAP 7.5/325 1 TAB TABLET PEG ×2 (00:43→09:36)
[2017-12-18] MEDS: VANCOMYCIN 1 GM in IV DEXTROSE 5 %-0.2 % NACL 250 ML IV (00:56)
[2017-12-18] MEDS: IPRATRPIUM/ALBUTEROL 0.5/2.5MG 3 ML NEBU. NEB ×3 (08:00→15:54)
[2017-12-18] MEDS: ATENOLOL 50 MG TABLET. PEG (09:30)
[2017-12-18] MEDS: METOCLOPRAMIDE 10 MG TABLET. PEG ×2 (09:30→13:29)
[2017-12-18] MEDS: LANSOPRAZOLE 30 MG TAB.RAP.DR FT (09:30)
[2017-12-18] MEDS: LACTOBACILLUS RHAMNOSUS GG 1 CAPSULE. PO (09:30)
[2017-12-18] MEDS: LOSARTAN POTASSIUM 50 MG TABLET. PEG (09:31)
[2017-12-18] MEDS: CYPROHEPTADINE 4 MG TABLET. PEG (09:31)
[2017-12-18] MEDS: DONEPEZIL HCL 5 MG TABLET. PEG (09:31)
[2017-12-18] MEDS: VANCOMYCIN PER PHARMACY MC (11:17)
[2017-12-18 12:49] LABS: HEMATOCRIT 31.8 % (36.0-47.0); HEMOGLOBIN 10.2 g/dL (12.0-15.5); MEAN CORPUSCULAR HEMOGLOBIN 27 pg (25-35); MEAN CORPUSCULAR HGB CONC 32 g/dL (31-37); MEAN CORPUSCULAR VOLUME 84 fL (79-100); PLATELET COUNT 374 x10^3/uL (140-400); RED BLOOD COUNT 3.77 x10^6/uL (3.50-5.40); RED CELL DISTRIBUTION WIDTH 15.4 % (11.5-14.5); WHITE BLOOD COUNT 10.3 x10^3/uL (4.0-11.0)
[2017-12-18] MEDS: HEPARIN PF 500 UNIT/5 ML DISP.SYRIN. IV (16:03)
[2017-12-18] MEDS ORDERED: AMOXICILLIN/K CLAV 500/125MG TABLET. PO (21:00)
== END 2017-12-18 17:00 | disposition home health service (06) | DRG 177 ==
LOC: ER 10:50 → 6 SOUTH 13:15
DX: J15.6 Pneumonia due to other Gram-negative bacteria (principal); E43 Unspecified severe protein-calorie malnutrition; J96.21 Acute and chronic respiratory failure with hypoxia; J44.0 Chronic obstructive pulmonary disease with (acute) lower respiratory infection; J98.11 Atelectasis; K94.23 Gastrostomy malfunction; K22.2 Esophageal obstruction; F03.90 Unspecified dementia, unspecified severity, without behavioral disturbance, psychotic disturbance, mood disturbance, and anxiety; I10 Essential (primary) hypertension; K31.84 Gastroparesis; R13.12 Dysphagia, oropharyngeal phase; Y95 Nosocomial condition; M19.90 Unspecified osteoarthritis, unspecified site; Z82.49 Family history of ischemic heart disease and other diseases of the circulatory system; Z85.118 Personal history of other malignant neoplasm of bronchus and lung; Z85.21 Personal history of malignant neoplasm of larynx; Z86.14 Personal history of Methicillin resistant Staphylococcus aureus infection; Z87.01 Personal history of pneumonia (recurrent); Z87.891 Personal history of nicotine dependence; Z92.21 Personal history of antineoplastic chemotherapy; Z92.3 Personal history of irradiation; Z88.8 Allergy status to other drugs, medicaments and biological substances; Z68.21 Body mass index [BMI] 21.0-21.9, adult
CPT/HCPCS: 36415; 71045; 71250; 80048; 80202; 82565; 83605; 83735; 85007; 85025; 85027; 87040; 93005; 94640; 94760; J1956; J2405; J2543; J3370; J7030; J7620; J8597

== ENCOUNTER 2018-04-15 09:41 | Emergency (ER) | payer MEDICARE, OTHER ==
[2018-04-15] MEDS: IPRATRPIUM/ALBUTEROL 0.5/2.5MG 3 ML NEBU. NEB (10:11)
== END 2018-04-15 12:58 | disposition home or self-care (01) ==
LOC: ER 09:41
DX: S09.90XA Unspecified injury of head, initial encounter (principal); I10 Essential (primary) hypertension; J44.1 Chronic obstructive pulmonary disease with (acute) exacerbation; Z86.14 Personal history of Methicillin resistant Staphylococcus aureus infection; Z91.041 Radiographic dye allergy status; Z88.6 Allergy status to analgesic agent; W18.39XA Other fall on same level, initial encounter; Y93.89 Activity, other specified; Y99.8 Other external cause status; Y92.89 Other specified places as the place of occurrence of the external cause
CPT/HCPCS: 70450; 72125; 94640; 99284-25; J7620

== ENCOUNTER 2018-04-22 21:48 | Emergency (ER) | payer MEDICARE, OTHER ==
[~2018-04-22] VITALS: Ht 175.3 cm; Wt 59.0 kg
[~2018-04-22 21:48] MED LIST changes: +AMLO10TA2 PO; +AMOX1TAB10 PO; -CYPR4TAB PEG; +CYPR4TAB31 PEG; +GABA300C8 PO
[2018-04-22 21:55] VITALS: BP 120/65
--- NOTE | 2018-04-22 22:09 | PHYS DOC ---
Past Medical History Past Medical History: Hypertension, MRSA, Pneumonia, Other Additional Past Medical Histor: Lung CA Past Surgical History: Other Additional Past Surgical Histo: Cataract,PEG tube,CA trach,PORT Alcohol Use: None Drug Use: None Adult General Chief Complaint Chief Complaint: GTUBE REPLACEMENT/MALFUNCTION HPI HPI Patient is a 78 year old who needs a new topical to the tip of the G-tube the plastic piece broke Allergies Allergies Allergies Coded Allergies Type Severity Reaction Last Updated Verified aspirin Allergy Intermediate hives 03/16/17 Yes I S O L A T I O N *CONTACT* Allergy Unknown 02/15/18 Yes Physical Exam Physical Exam Constitutional: Well developed, well nourished, no acute distress, non-toxic appearance. [] HENT: Normocephalic, atraumatic, bilateral external ears normal, oropharynx moist, no oral exudates, nose normal. [] Eyes: PERRLA, EOMI, conjunctiva normal, no discharge. [] Neck: Normal range of motion, no tenderness, supple, no stridor. [] Normal effort no increased work of breathing Abdomen: G-tube in position the purple plastic piece does look broken. EKG EKG [] Radiology/Procedures Radiology/Procedures [] Course & Med Decision Making Course & Med Decision Making Pertinent Labs and Imaging studies reviewed. (See chart for details) []Did give the patient a new purple plastic piece she was reassured she had no further issues. Dragon Disclaimer Dragon Disclaimer This electronic medical record was generated, in whole or in part, using a voice recognition dictation system. Departure Departure Impression: Primary Impression: Malfunction of gastrostomy tube Disposition: HOME, SELF-CARE Condition: STABLE Referrals: CATHERINE MOSCOSO MD (PCP) Additional Instructions: Thank you for coming to the emergency room we did give you a new Tear G-tube please return for any new concerns or issues. KELVIN PICHARDO MD Apr 22, 2018 22:09
== END 2018-04-22 22:15 | disposition home or self-care (01) ==
LOC: ER 21:48
DX: K94.23 Gastrostomy malfunction (principal); I10 Essential (primary) hypertension; Z86.14 Personal history of Methicillin resistant Staphylococcus aureus infection; Z88.6 Allergy status to analgesic agent; Z91.041 Radiographic dye allergy status
CPT/HCPCS: 99284

== ENCOUNTER 2018-04-29 17:14 | Inpatient (IN) | payer MEDICARE, OTHER ==
[~2018-04-29] VITALS: Ht 175.3 cm; Wt 54.4 kg
[2018-04-29] MEDS ORDERED: IPRATRPIUM/ALBUTEROL 0.5/2.5MG 3 ML NEBU. NEB ONE (17:45)
[2018-04-29 17:54] LABS: BILIRUBIN,URINE NEGATIVE (NEG); CLARITY,URINE CLEAR; COLOR,URINE YELLOW; NITRITE,URINE NEGATIVE (NEG); PH,URINE 7.5; PROTEIN,URINE NEGATIVE (NEG-TRACE); UROBILINOGEN,URINE 0.2 mg/dL (0.2 mg/dL)
[2018-04-29 18:00] LABS: BACTERIA,URINE FEW /HPF (0-FEW); SQUAMOUS EPITHELIAL CELL,UR FEW /LPF
[2018-04-29 18:01] LABS: RBC,URINE OCC /HPF (0-2)
--- NOTE | 2018-04-29 18:12 | PHYS DOC ---
Past Medical History Past Medical History: Hypertension, MRSA, Pneumonia, Other Additional Past Medical Histor: Lung CA Past Surgical History: Other Additional Past Surgical Histo: Cataract,PEG tube,CA trach,PORT Alcohol Use: None Drug Use: None Adult General Chief Complaint Chief Complaint: SHORTNESS OF BREATH HPI HPI Pt is a 78 y/o AAF who has a Hx of a PEG and Trach, who presents to the ED from home for increased SOB. The patient's arrival in the emergency department proceeded my arrival at 6 PM, so I was not present on the patient's initial presentation but reports were that the patient was increasingly short of breath. She required several rounds of suctioning by respiratory therapy, and by the time I unable to assess the patient she appears to be breathing comfortably on a tracheostomy collar, with a normal oxygen saturation. The patient is sleepy, and is not complaining of any pain, and is a very limited historian. She is unable to provide any meaningful history. There are no known alleviating or exacerbating factors to her symptoms. She does have a history of sepsis and pneumonia in the past. Review of Systems Review of Systems Unable to abscess review of systems, secondary to patient being a poor historian. Current Medications Current Medications Current Medications Medications (Trade) Dose Ordered Sig/Yuliana Start Time Stop Time Status Last Admin Dose Admin Albuterol/ Ipratropium (Duoneb) 3 ml 1X ONCE 04/29/18 17:45 04/29/18 17:46 DC 04/29/18 17:56 3 ML Piperacillin Sod/ Tazobactam Sod (Zosyn Per Pharmacy) 1 each PRN DAILY PRN 04/29/18 19:30 UNV Vancomycin HCl (Vanco Per Pharmacy) 1 each PRN DAILY PRN 04/29/18 19:30 UNV Allergies Allergies Allergies Coded Allergies Type Severity Reaction Last Updated Verified aspirin Allergy Intermediate hives 03/16/17 Yes I S O L A T I O N *CONTACT* Allergy Unknown 02/15/18 Yes Physical Exam Physical Exam PHYSICAL EXAM: CONSTITUTIONAL: Well developed, well nourished HEAD: normocephalic, atraumatic EENT: PERRL, EOMI. pupils are 2-3 mm bilaterally and reactive. Conjunctivae normal color, sclerae non-icteric; moist mucous membranes. NECK: Supple, non-tender; no meningismus. Tracheostomy tube is present. LUNGS: Are coarse, scattered rhonchi in all lung szymanski, with unlabored breathing. Normal air movement. HEART: Regular rate and rhythm, no murmur CHEST: No deformity; non-tender ABDOMEN: The abdomen is soft, and non-tender, no masses or bruits. EXTREM: Normal ROM; no deformity, no calf tenderness. Normal pulses palpable in all extremities. There is no pedal edema. SKIN: No rash; no diaphoresis. There is a fentanyl patch on the anterior chest. NEURO: Patient is somnolent, but arousable, denies any pain and is able to follow very basic commands ; CN's grossly intact; strength grossly intact without focal deficit. BACK: No CVA TTP. Current Patient Data Vital Signs Vital Signs Date Time Temp Pulse Resp B/P (MAP) Pulse Ox O2 Delivery O2 Flow Rate FiO2 04/29/18 18:47 Tracheal Collar 15.0 04/29/18 18:05 98 04/29/18 17:32 99.5 84 20 142/67 (92) 99.5 Lab Values Laboratory Tests Test 04/29/18 17:40 04/29/18 18:10 04/29/18 18:29 Urine Collection Type Unknown Urine Color Yellow Urine Clarity Clear Urine pH 7.5 Urine Specific [place] 1.010 Urine Protein Negative mg/dL (NEG-TRACE) Urine Glucose (UA) Negative mg/dL (NEG) Urine Ketones (Stick) Negative mg/dL (NEG) Urine Blood Negative (NEG) Urine Nitrite Negative (NEG) Urine Bilirubin Negative (NEG) Urine Urobilinogen Dipstick 0.2 mg/dL (0.2 mg/dL) Urine Leukocyte Esterase Trace (NEG) Urine RBC Occ /HPF (0-2) Urine WBC 1-4 /HPF (0-4) Urine Squamous Epithelial Cells Few /LPF Urine Bacteria Few /HPF (0-FEW) White Blood Count 14.3 x10^3/uL (4.0-11.0) H Red Blood Count 4.18 x10^6/uL (3.50-5.40) Hemoglobin 10.5 g/dL (12.0-15.5) L Hematocrit 34.3 % (36.0-47.0) L Mean Corpuscular Volume 82 fL (79-100) Mean Corpuscular Hemoglobin 25 pg (25-35) Mean Corpuscular Hemoglobin Concent 31 g/dL (31-37) Red Cell Distribution Width 18.8 % (11.5-14.5) H Platelet Count 415 x10^3/uL (140-400) H Neutrophils (%) (Auto) 72 % (31-73) Lymphocytes (%) (Auto) 17 % (24-48) L Monocytes (%) (Auto) 8 % (0-9) Eosinophils (%) (Auto) 2 % (0-3) Basophils (%) (Auto) 1 % (0-3) Neutrophils # (Auto) 10.4 x10^3uL (1.8-7.7) H Lymphocytes # (Auto) 2.4 x10^3/uL (1.0-4.8) Monocytes # (Auto) 1.1 x10^3/uL (0.0-1.1) Eosinophils # (Auto) 0.3 x10^3/uL (0.0-0.7) Basophils # (Auto) 0.1 x10^3/uL (0.0-0.2) Prothrombin Time 14.1 SEC (11.7-14.0) H Prothrombin Time INR 1.1 (0.8-1.1) PTT 35 SEC (24-38) Sodium Level 136 mmol/L (136-145) Potassium Level 4.5 mmol/L (3.5-5.1) Chloride Level 98 mmol/L (98-107) Carbon Dioxide Level 35 mmol/L (21-32) H Anion Gap 3 (6-14) L Blood Urea Nitrogen 43 mg/dL (7-20) H Creatinine 1.2 mg/dL (0.6-1.0) H Estimated GFR (Cockcroft-Gault) 52.7 Glucose Level 103 mg/dL (70-99) H Lactic Acid Level 0.6 mmol/L (0.4-2.0) Calcium Level 8.9 mg/dL (8.5-10.1) Total Bilirubin 0.3 mg/dL (0.2-1.0) Direct Bilirubin 0.1 mg/dL (0.0-0.2) Aspartate Amino Transferase (AST) 17 U/L (15-37) Alanine Aminotransferase (ALT) 13 U/L (14-59) L Alkaline Phosphatase 82 U/L (46-116) Troponin I Quantitative 0.017 ng/mL (0.000-0.055) DN-Ryj-R-Type Natriuretic Peptide 8964 pg/mL (0-449) H Total Protein 8.2 g/dL (6.4-8.2) Albumin 3.0 g/dL (3.4-5.0) L Procalcitonin 0.27 ng/mL (0.00-0.10) H O2 Saturation 96 % (92-99) Arterial Blood pH 7.37 (7.35-7.45) Arterial Blood pCO2 at Patient Temp 64 mmHg (35-46) *H Arterial Blood pO2 at Patient Temp 88 mmHg (65-108) Arterial Blood HCO3 36 mmol/L (21-28) H Arterial Blood Base Excess 9 mmol/L (-3-3) H FiO2 50 Laboratory Tests 04/29/18 18:10 Laboratory Tests 04/29/18 18:10 EKG EKG [Normal sinus rhythm at a rate of 90 bpm, left axis deviation, normal intervals , there are no acute ischemic ST/T changes.] Radiology/Procedures Radiology/Procedures ER physician preliminary chest X interpretation: Patchy prominent interstitial markings without definite confluent infiltrate.[] Course & Med Decision Making Course & Med Decision Making Pertinent Labs and Imaging studies reviewed. (See chart for details) [] Dragon Disclaimer Dragon Disclaimer This electronic medical record was generated, in whole or in part, using a voice recognition dictation system. Departure Departure Impression: Primary Impression: Dyspnea Additional Impression: Chronic respiratory failure Disposition: ADMITTED INPATIENT Admitting Physician: Miguel Eng Condition: GUARDED Referrals: CATHERINE MOSCOSO MD (PCP) Problem Qualifiers MARYSE REDDY MD Apr 29, 2018 18:12
[2018-04-29 18:27] LABS: BASO # 0.1 x10^3/uL (0.0-0.2); BASO % 1 % (0-3); EOS # 0.3 x10^3/uL (0.0-0.7); EOS % 2 % (0-3); HEMATOCRIT 34.3 % (36.0-47.0); HEMOGLOBIN 10.5 g/dL (12.0-15.5); LYMPH # 2.4 x10^3/uL (1.0-4.8); LYMPH % 17 % (24-48); MEAN CORPUSCULAR HEMOGLOBIN 25 pg (25-35); MEAN CORPUSCULAR HGB CONC 31 g/dL (31-37); MEAN CORPUSCULAR VOLUME 82 fL (79-100); MONO # 1.1 x10^3/uL (0.0-1.1); MONO % 8 % (0-9); NEUT # 10.4 x10^3uL (1.8-7.7); NEUT % 72 % (31-73); PLATELET COUNT 415 x10^3/uL (140-400); RED BLOOD COUNT 4.18 x10^6/uL (3.50-5.40); RED CELL DISTRIBUTION WIDTH 18.8 % (11.5-14.5); WHITE BLOOD COUNT 14.3 x10^3/uL (4.0-11.0)
[2018-04-29 18:35] LABS: PROTHROMBIN TIME PATIENT 14.1 SEC (11.7-14.0)
[2018-04-29 18:37] LABS: CALCIUM 8.9 mg/dL (8.5-10.1); CREATININE 1.2 mg/dL (0.6-1.0); GFR 52.7; POTASSIUM 4.5 mmol/L (3.5-5.1)
[2018-04-29 18:41] LABS: BASE EXCESS ABG 9 mmol/L (-3-3); HCO3 ABG 36 mmol/L (21-28); PO2 ABG 88 mmHg (65-108); SAT O2 ABG 96 % (92-99)
[2018-04-29 18:46] LABS: PCO2 ABG 64 mmHg (35-46)
[2018-04-29 18:47] LABS: FIO2 ABG 50
[2018-04-29 18:54] LABS: DIRECT BILIRUBIN 0.1 mg/dL (0.0-0.2); TOTAL BILIRUBIN 0.3 mg/dL (0.2-1.0); TOTAL PROTEIN 8.2 g/dL (6.4-8.2)
[2018-04-29] MEDS ORDERED: VANCOMYCIN PER PHARMACY MC PRN (19:30)
[2018-04-29] MEDS ORDERED: PIP/TAZO PER PHARMACY MC PRN (19:30)
[2018-04-29] MEDS ORDERED: PIPERACILLIN/TAZOBACTAM 4.5 GM in IV NORMAL SALINE 100ML 100 ML IV ONE (19:45)
[2018-04-29] MEDS ORDERED: VANCOMYCIN 1.25 GM in IV NORMAL SALINE 250ML 250 ML IV ONE (20:00)
--- NOTE | 2018-04-29 20:39 | EKG ---
[facility] [address] [place] [address] Test Date: 2018-04-29 Test Time: 17:47:37 Pat Name: BERNARDO DE LEON Department: Room: Gender: F [employer]: : 1940 Requested By: BERENICE ROBLES Order Number: [id number] Reading MD: Glen Dyson MD Measurements Intervals [place] Rate: 90 P: 41 DE: 182 QRS: -24 QRSD: 92 T: 42 QT: 356 QTc: 440 Interpretive Statements SINUS RHYTHM Electronically Signed On 05-03-2018 10:33:11 CDT by Glen Dyson MD
[2018-04-29] MEDS ORDERED: oxyCODONE/APAP 7.5/325 1 TAB TABLET PO ONE (21:15)
[2018-04-29 23:00] VITALS: BP 149/96
[2018-04-30 03:05] VITALS: BP 129/66
[2018-04-30 06:15] LABS: BASO # 0.1 x10^3/uL (0.0-0.2); BASO % 1 % (0-3); EOS # 0.4 x10^3/uL (0.0-0.7); EOS % 2 % (0-3); HEMATOCRIT 34.3 % (36.0-47.0); HEMOGLOBIN 10.7 g/dL (12.0-15.5); LYMPH % 13 % (24-48); MEAN CORPUSCULAR HEMOGLOBIN 26 pg (25-35); MEAN CORPUSCULAR HGB CONC 31 g/dL (31-37); MEAN CORPUSCULAR VOLUME 81 fL (79-100); MONO # 0.9 x10^3/uL (0.0-1.1); MONO % 6 % (0-9); NEUT # 12.2 x10^3uL (1.8-7.7); NEUT % 78 % (31-73); PLATELET COUNT 424 x10^3/uL (140-400); RED BLOOD COUNT 4.21 x10^6/uL (3.50-5.40); RED CELL DISTRIBUTION WIDTH 18.4 % (11.5-14.5); WHITE BLOOD COUNT 15.6 x10^3/uL (4.0-11.0)
[2018-04-30 06:25] LABS: CALCIUM 9.1 mg/dL (8.5-10.1); CREATININE 1.1 mg/dL (0.6-1.0); GFR 58.3
[2018-04-30] MEDS: PIPERACILLIN/TAZOBACTAM 2.25 GM in IV NORMAL SALINE 50ML 50 ML IV SCH ×2 (06:29→11:44)
[2018-04-30 07:00] VITALS: BP 162/66
--- NOTE | 2018-04-30 07:55 | RAD ---
EXAM: Portable AP upright view of the chest DATE: 04/29/2018 5:41 PM INDICATION: HYPOXIA COMPARISON: 03/19/2018, 04/06/2018 FINDINGS: Tracheostomy tube is in stable position. Right Port-A-Cath tip terminates over the distal SVC. Surgical clips project over the lower chest. Cardiomediastinal silhouette is grossly stable accounting for differences in positioning and technique. Dense left lung base parenchymal airspace opacities possibly atelectasis or developing consolidation. Diffuse bilateral interstitial prominence. Small left pleural effusion. No pneumothorax. IMPRESSION: 1. Interstitial prominence with small left pleural effusion, nonspecific but suspect interstitial edema or atypical infection. 2. Dense left lung base airspace opacities is increased, possibly atelectasis or consolidative process such as pneumonia. Electronically signed by: Tremaine Neal MD (04/30/2018 7:51 AM) [facility]
[2018-04-30] MEDS ORDERED: NON FORMULARY ITEM (Albuterol Sulfate (Proair Hfa Inhaler) 2 PUFF) IH SCH (08:45)
[2018-04-30] MEDS ORDERED: guaiFENesin DM 200MG/20MG 10 ML SYRUP PO PRN (08:45)
[2018-04-30] MEDS ORDERED: ACETAMINOPHEN 650 MG/20.3 ML SOLUTION. PEG PRN (08:45)
[2018-04-30] MEDS ORDERED: oxyCODONE/APAP 7.5/325 1 TAB TABLET PO PRN (08:45)
[2018-04-30] MEDS ORDERED: ONDANSETRON ODT 4 MG TAB.RAPDIS. PO PRN (08:45)
[2018-04-30] MEDS ORDERED: LACTOBACILLUS RHAMNOSUS GG 1 CAPSULE. PO SCH (09:00)
[2018-04-30] MEDS ORDERED: CYPROHEPTADINE 4 MG TABLET. PO SCH (09:45)
[2018-04-30] MEDS ORDERED: METOCLOPRAMIDE 10 MG TABLET. PO SCH (09:45)
[2018-04-30] MEDS ORDERED: PANTOPRAZOLE 40 MG TABLET.DR. PO SCH (09:45)
[2018-04-30] MEDS ORDERED: guaiFENesin DM 200MG/20MG 10 ML SYRUP PEG PRN (09:48)
[2018-04-30] MEDS ORDERED: ALBUTEROL SULFATE 2.5 MG/3 ML NEBU. NEB PRN (10:00)
[2018-04-30] MEDS ORDERED: SCOPOLAMINE 1.5MG PATCH. TD ONE (10:15)
--- NOTE | 2018-04-30 10:21 | PDOC1 ---
History and Physical Date of Admission Date of Admission DATE: 04/30/18 TIME: 10:15 Identification/Chief Complaint Chief Complaint SOA, lots of secretions Source Source: Caregiver, Chart review History of Present Illness History of Present Illness 78-year-old female has current home health, known to us because of previous admits for pneumonia, lots of secretions. She is trached and pegged. Full code. Usually she can play with her grandkids if she is well. She is chronically tube feed. Comes in because of SOA and lots of secretions. Chest x-ray reads maybe some atelectasis and interstitial edema, may be pneumonia. I consulted pulmonary. Hitting with broad-spectrum antibiotics, continuing meds-I have resume home meds And adding scopo patch Very well known to pulmonary and ID services ABG shows normal pH CO2 60s, normal O2 LOoks not in distress in my encounter Past Medical History Cardiovascular: HTN Pulmonary: COPD, Pneumonia, Other CENTRAL NERVOUS SYSTEM: Other GI: Other Heme/Onc: Anemia NOS, Cancer Hepatobiliary: No pertinent hx Psych: No pertinent hx Musculoskeletal: Osteoarthritis Rheumatologic: No pertinent hx Infectious disease: No pertinent hx Renal/: No pertinent hx Endocrine: No pertinent hx Past Surgical History Past Surgical History: Cataract Removal, Other Family History Family History: Heart Disease Social History Smoke: No ALCOHOL: none Drugs: None Current Problem List Problem List Problems Medical Problems: (1) Chronic respiratory failure Status: Acute (2) Dyspnea Status: Acute Current Medications Current Medications Current Medications Albuterol/ Ipratropium (Duoneb) 3 ml 1X ONCE NEB Last administered on at 17:56; Start 04/29/18 at 17:45; Stop 04/29/18 at 17:46; Status DC Piperacillin Sod/ Tazobactam Sod (Zosyn Per Pharmacy) 1 each PRN DAILY PRN MC SEE COMMENTS; Start 04/29/18 at 19:30 Vancomycin HCl (Vanco Per Pharmacy) 1 each PRN DAILY PRN MC SEE COMMENTS Last administered on 04/30/18at 01:00; Start 04/29/18 at 19:30 Piperacillin Sod/ Tazobactam Sod 4.5 gm/Sodium Chloride 100 ml @ 200 mls/hr 1X ONCE IV Last administered on 04/29/18at 19:56; Start 04/29/18 at 19:45; Stop 04/29/18 at 20:14; Status DC Vancomycin HCl 1.25 gm/Sodium Chloride 250 ml @ 167 mls/hr ONCE ONCE IV Last administered on 04/29/18at 19:56; Start 04/29/18 at 20:00; Stop 04/29/18 at 21:29 ; Status DC Oxycodone/ Acetaminophen (Percocet 7.5/ 325) 1 tab 1X ONCE PO Last administered on 04/29/18at 21:44; Start 04/29/18 at 21:15; Stop 04/29/18 at 21:16 ; Status DC Piperacillin Sod/ Tazobactam Sod 2.25 gm/Sodium Chloride 50 ml @ 100 mls/hr Q6HRS IV Last administered on 04/30/18at 06:29; Start 04/30/18 at 06:00 Vancomycin HCl 1 gm/Sodium Chloride 250 ml @ 250 mls/hr Q24H IV ; Start at 20:00 Vancomycin HCl (Vancomycin Trough Level) 1 each 1X ONCE MC ; Start 05/01/18 at 19:30; Stop 05/01/18 at 19:31 Lactobacillus Rhamnosus (Culturelle) 1 cap BID PO ; Start 04/30/18 at 09:00; Status Cancel Acetaminophen (Tylenol) 650 mg PRN Q6HRS PRN PEG MILD PAIN / TEMP; Start at 08:45 Ondansetron HCl (Zofran) 4 mg PRN Q6HRS PRN IV NAUSEA/VOMITING; Start 04/30/18 at 08:45 Ondansetron HCl (Zofran Odt) 4 mg PRN Q6HRS PRN PO NAUSEA/VOMITING; Start 04/30 at 08:45; Status Cancel Fentanyl (Duragesic 50mcg/ Hr Patch) 1 patch Q3DAYS TD ; Start 04/30/18 at 10:00 Lactobacillus Rhamnosus (Culturelle) 1 cap BID PO ; Start 04/30/18 at 10:00 Metoclopramide HCl (Reglan) 5 mg QIDAFTMEAL PO ; Start 04/30/18 at 09:45; Stop 04/30/18 at 09:47; Status DC Ondansetron HCl (Zofran Odt) 4 mg QIDPRN PRN PEG NAUSEA/VOMITING; Start at 08:45 Oxycodone/ Acetaminophen (Percocet 7.5/ 325) 1 tab PRN QID PRN PO MODERATE TO SEVERE PAIN; Start 04/30/18 at 08:45; Stop 04/30/18 at 09:49; Status DC Pantoprazole Sodium (Protonix) 40 mg BIDAC PO ; Start 04/30/18 at 09:45; Stop at 09:52; Status DC Non-Formulary Medication (Albuterol Sulfate (Proair Hfa Inhaler)) 2 puff PRN Q4- 6HRS IH ; Start 04/30/18 at 08:45; Status UNV Atenolol (Tenormin) 50 mg DAILY PEG ; Start 04/30/18 at 10:00 Cyproheptadine HCl (Periactin) 2 mg BID PO ; Start 04/30/18 at 09:45; Stop 04/30 at 09:48; Status DC Donepezil HCl (Aricept) 5 mg BID PEG ; Start 05/01/18 at 10:00 Gabapentin (Neurontin) 300 mg TID PO ; Start 04/30/18 at 10:00 Losartan Potassium (Cozaar) 100 mg DAILY PEG ; Start 05/01/18 at 09:00 Enoxaparin Sodium (Lovenox 40mg Syringe) 40 mg Q24H SQ ; Start 04/30/18 at 10:00 Morphine Sulfate (Morphine Sulfate) 1 mg PRN Q2HR PRN IV PAIN; Start 04/30/18 at 08:45 Albuterol/ Ipratropium (Duoneb) 3 ml RTQID NEB ; Start 04/30/18 at 12:00 Guaifenesin (Robitussin Dm) 10 ml PRN Q6HRS PRN PO COUGH; Start 04/30/18 at 08: 45; Stop 04/30/18 at 09:48; Status DC Metoclopramide HCl (Reglan Oral Solution) 5 mg QIDAFTMEAL PEG ; Start 04/30/18 at 09:47 Cyproheptadine HCl (Periactin) 2 mg BID PEG ; Start 04/30/18 at 09:48 Guaifenesin (Robitussin Dm) 10 ml PRN Q6HRS PRN PEG COUGH; Start 04/30/18 at 09 :48 Oxycodone/ Acetaminophen (Percocet 7.5/ 325) 1 tab PRN QID PRN PEG MODERATE TO SEVERE PAIN; Start 04/30/18 at 09:49 Lansoprazole (Prevacid) 30 mg BIDAC PEG ; Start 04/30/18 at 10:00 Chlorthalidone (Thalitone) 25 mg DAILY PEG ; Start 04/30/18 at 10:00 Albuterol Sulfate (Ventolin Neb Soln) 2.5 mg PRN Q4HRS PRN NEB SHORTNESS OF BREATH; Start 04/30/18 at 10:00 Active Scripts Active Gabapentin 300 Mg Capsule 300 Mg PO TID 30 Days Culturelle (Lactobacillus Rhamnosus Gg) 1 Each Cap.sprink 1 Cap PO BID 30 Days Reported Diovan (Valsartan) 160 Mg Tablet 160 Mg PEG DAILY Pantoprazole Sodium 40 Mg Tablet.dr 40 Mg PEG BID Donepezil Hcl 5 Mg Tablet 5 Mg PEG BID Reglan (Metoclopramide Hcl) 10 Mg Tablet 5 Mg PO QIDAFTMEAL Atenolol-Chlorthal 50-25 Tb (Atenolol/Chlorthalidone) 1 Each Tablet 1 Tab PEG DAILY Cyproheptadine Hcl 2 Mg/5 Ml Syrup 2 Mg PEG BID Percocet 7.5-325 Mg Tablet (Oxycodone/Acetaminophen) 1 Each Tablet 1 Tab PO QID PRN Proair Hfa Inhaler (Albuterol Sulfate) 8.5 Gm Hfa.aer.ad 2 Puff IH PRN Q4-6HRS FENTANYL 50mcg/hr (Fentanyl) 1 Each Patch.td72 1 Patch TP Q3DAYS Ondansetron Odt (Ondansetron) 4 Mg Tab.rapdis 4 Mg PEG QIDPRN PRN Allergies Allergies: Coded Allergies: aspirin (Verified Allergy, Intermediate, hives, 03/16/17) I S O L A T I O N *CONTACT* (Verified Allergy, Unknown, 02/15/18) (R) PSA in sputum ROS Review of System Trach and PEG, weak today hence limited ROS Physical Exam General: No acute distress HEENT: Atraumatic, PERRLA, EOMI Lungs: Normal air movement, Other (no wheezing, course, decreased breath sounds tender to poor effort) Heart: S1S2, RRR, no thrills, no rubs, no gallops, no murmurs Cardiovascular: S1, S2 Breasts: Normal, Rt breast nml w/o mass, Lt breast nml w/o mass, Nipples normal Abdomen: Normal bowel sounds, Soft, No tenderness, No hepatosplenomegaly, No masses, Other (PEG) Extremities: No clubbing, No cyanosis, No edema, Normal pulses, No tenderness/ swelling Skin: Other (Minimal subcutaneous tissue, senile skin turgor) Vitals Vitals Vital Signs Date Time Temp Pulse Resp B/P (MAP) Pulse Ox O2 Delivery O2 Flow Rate FiO2 04/30/18 07:45 Trach Collar 15.0 04/30/18 07:00 98.1 92 18 162/66 (98) 98 98.1 Labs Labs Laboratory Tests Test 04/29/18 17:40 04/29/18 18:10 04/29/18 18:29 04/30/18 05:50 Urine Collection Type Unknown Urine Color Yellow Urine Clarity Clear Urine pH 7.5 Urine Specific [place] 1.010 Urine Protein Negative mg/dL (NEG-TRACE) Urine Glucose (UA) Negative mg/dL (NEG) Urine Ketones (Stick) Negative mg/dL (NEG) Urine Blood Negative (NEG) Urine Nitrite Negative (NEG) Urine Bilirubin Negative (NEG) Urine Urobilinogen Dipstick 0.2 mg/dL (0.2 mg/dL) Urine Leukocyte Esterase Trace (NEG) Urine RBC Occ /HPF (0-2) Urine WBC 1-4 /HPF (0-4) Urine Squamous Epithelial Cells Few /LPF Urine Bacteria Few /HPF (0-FEW) White Blood Count 14.3 x10^3/uL (4.0-11.0) 15.6 x10^3/uL (4.0-11.0) Red Blood Count 4.18 x10^6/uL (3.50-5.40) 4.21 x10^6/uL (3.50-5.40) Hemoglobin 10.5 g/dL (12.0-15.5) 10.7 g/dL (12.0-15.5) Hematocrit 34.3 % (36.0-47.0) 34.3 % (36.0-47.0) Mean Corpuscular Volume 82 fL (79-100) 81 fL (79-100) Mean Corpuscular Hemoglobin 25 pg (25-35) 26 pg (25-35) Mean Corpuscular Hemoglobin Concent 31 g/dL (31-37) 31 g/dL (31-37) Red Cell Distribution Width 18.8 % (11.5-14.5) 18.4 % (11.5-14.5) Platelet Count 415 x10^3/uL (140-400) 424 x10^3/uL (140-400) Neutrophils (%) (Auto) 72 % (31-73) 78 % (31-73) Lymphocytes (%) (Auto) 17 % (24-48) 13 % (24-48) Monocytes (%) (Auto) 8 % (0-9) 6 % (0-9) Eosinophils (%) (Auto) 2 % (0-3) 2 % (0-3) Basophils (%) (Auto) 1 % (0-3) 1 % (0-3) Neutrophils # (Auto) 10.4 x10^3uL (1.8-7.7) 12.2 x10^3uL (1.8-7.7) Lymphocytes # (Auto) 2.4 x10^3/uL (1.0-4.8) 2.0 x10^3/uL (1.0-4.8) Monocytes # (Auto) 1.1 x10^3/uL (0.0-1.1) 0.9 x10^3/uL (0.0-1.1) Eosinophils # (Auto) 0.3 x10^3/uL (0.0-0.7) 0.4 x10^3/uL (0.0-0.7) Basophils # (Auto) 0.1 x10^3/uL (0.0-0.2) 0.1 x10^3/uL (0.0-0.2) Prothrombin Time 14.1 SEC (11.7-14.0) Prothromb Time International Ratio 1.1 (0.8-1.1) Activated Partial Thromboplast Time 35 SEC (24-38) Sodium Level 136 mmol/L (136-145) 137 mmol/L (136-145) Potassium Level 4.5 mmol/L (3.5-5.1) 4.0 mmol/L (3.5-5.1) Chloride Level 98 mmol/L (98-107) 100 mmol/L (98-107) Carbon Dioxide Level 35 mmol/L (21-32) 37 mmol/L (21-32) Anion Gap 3 (6-14) 0 (6-14) Blood Urea Nitrogen 43 mg/dL (7-20) 31 mg/dL (7-20) Creatinine 1.2 mg/dL (0.6-1.0) 1.1 mg/dL (0.6-1.0) Estimated GFR (Cockcroft-Gault) 52.7 58.3 Glucose Level 103 mg/dL (70-99) 122 mg/dL (70-99) Lactic Acid Level 0.6 mmol/L (0.4-2.0) Calcium Level 8.9 mg/dL (8.5-10.1) 9.1 mg/dL (8.5-10.1) Total Bilirubin 0.3 mg/dL (0.2-1.0) Direct Bilirubin 0.1 mg/dL (0.0-0.2) Aspartate Amino Transf (AST/SGOT) 17 U/L (15-37) Alanine Aminotransferase (ALT/SGPT) 13 U/L (14-59) Alkaline Phosphatase 82 U/L (46-116) Troponin I Quantitative 0.017 ng/mL (0.000-0.055) < 0.017 ng/mL (0.000-0.055) WK-Xzx-C-Type Natriuretic Peptide 8964 pg/mL (0-449) Total Protein 8.2 g/dL (6.4-8.2) Albumin 3.0 g/dL (3.4-5.0) Procalcitonin 0.27 ng/mL (0.00-0.10) O2 Saturation 96 % (92-99) Arterial Blood pH 7.37 (7.35-7.45) Arterial Blood pCO2 at Patient Temp 64 mmHg (35-46) Arterial Blood pO2 at Patient Temp 88 mmHg (65-108) Arterial Blood HCO3 36 mmol/L (21-28) Arterial Blood Base Excess 9 mmol/L (-3-3) FiO2 50 Laboratory Tests Test 04/29/18 17:40 04/29/18 18:10 04/29/18 18:29 04/30/18 05:50 Urine Collection Type Unknown Urine Color Yellow Urine Clarity Clear Urine pH 7.5 Urine Specific [place] 1.010 Urine Protein Negative mg/dL (NEG-TRACE) Urine Glucose (UA) Negative mg/dL (NEG) Urine Ketones (Stick) Negative mg/dL (NEG) Urine Blood Negative (NEG) Urine Nitrite Negative (NEG) Urine Bilirubin Negative (NEG) Urine Urobilinogen Dipstick 0.2 mg/dL (0.2 mg/dL) Urine Leukocyte Esterase Trace (NEG) Urine RBC Occ /HPF (0-2) Urine WBC 1-4 /HPF (0-4) Urine Squamous Epithelial Cells Few /LPF Urine Bacteria Few /HPF (0-FEW) White Blood Count 14.3 x10^3/uL (4.0-11.0) 15.6 x10^3/uL (4.0-11.0) Red Blood Count 4.18 x10^6/uL (3.50-5.40) 4.21 x10^6/uL (3.50-5.40) Hemoglobin 10.5 g/dL (12.0-15.5) 10.7 g/dL (12.0-15.5) Hematocrit 34.3 % (36.0-47.0) 34.3 % (36.0-47.0) Mean Corpuscular Volume 82 fL (79-100) 81 fL (79-100) Mean Corpuscular Hemoglobin 25 pg (25-35) 26 pg (25-35) Mean Corpuscular Hemoglobin Concent 31 g/dL (31-37) 31 g/dL (31-37) Red Cell Distribution Width 18.8 % (11.5-14.5) 18.4 % (11.5-14.5) Platelet Count 415 x10^3/uL (140-400) 424 x10^3/uL (140-400) Neutrophils (%) (Auto) 72 % (31-73) 78 % (31-73) Lymphocytes (%) (Auto) 17 % (24-48) 13 % (24-48) Monocytes (%) (Auto) 8 % (0-9) 6 % (0-9) Eosinophils (%) (Auto) 2 % (0-3) 2 % (0-3) Basophils (%) (Auto) 1 % (0-3) 1 % (0-3) Neutrophils # (Auto) 10.4 x10^3uL (1.8-7.7) 12.2 x10^3uL (1.8-7.7) Lymphocytes # (Auto) 2.4 x10^3/uL (1.0-4.8) 2.0 x10^3/uL (1.0-4.8) Monocytes # (Auto) 1.1 x10^3/uL (0.0-1.1) 0.9 x10^3/uL (0.0-1.1) Eosinophils # (Auto) 0.3 x10^3/uL (0.0-0.7) 0.4 x10^3/uL (0.0-0.7) Basophils # (Auto) 0.1 x10^3/uL (0.0-0.2) 0.1 x10^3/uL (0.0-0.2) Prothrombin Time 14.1 SEC (11.7-14.0) Prothromb Time International Ratio 1.1 (0.8-1.1) Activated Partial Thromboplast Time 35 SEC (24-38) Sodium Level 136 mmol/L (136-145) 137 mmol/L (136-145) Potassium Level 4.5 mmol/L (3.5-5.1) 4.0 mmol/L (3.5-5.1) Chloride Level 98 mmol/L (98-107) 100 mmol/L (98-107) Carbon Dioxide Level 35 mmol/L (21-32) 37 mmol/L (21-32) Anion Gap 3 (6-14) 0 (6-14) Blood Urea Nitrogen 43 mg/dL (7-20) 31 mg/dL (7-20) Creatinine 1.2 mg/dL (0.6-1.0) 1.1 mg/dL (0.6-1.0) Estimated GFR (Cockcroft-Gault) 52.7 58.3 Glucose Level 103 mg/dL (70-99) 122 mg/dL (70-99) Lactic Acid Level 0.6 mmol/L (0.4-2.0) Calcium Level 8.9 mg/dL (8.5-10.1) 9.1 mg/dL (8.5-10.1) Total Bilirubin 0.3 mg/dL (0.2-1.0) Direct Bilirubin 0.1 mg/dL (0.0-0.2) Aspartate Amino Transf (AST/SGOT) 17 U/L (15-37) Alanine Aminotransferase (ALT/SGPT) 13 U/L (14-59) Alkaline Phosphatase 82 U/L (46-116) Troponin I Quantitative 0.017 ng/mL (0.000-0.055) < 0.017 ng/mL (0.000-0.055) JT-Tpi-B-Type Natriuretic Peptide 8964 pg/mL (0-449) Total Protein 8.2 g/dL (6.4-8.2) Albumin 3.0 g/dL (3.4-5.0) Procalcitonin 0.27 ng/mL (0.00-0.10) O2 Saturation 96 % (92-99) Arterial Blood pH 7.37 (7.35-7.45) Arterial Blood pCO2 at Patient Temp 64 mmHg (35-46) Arterial Blood pO2 at Patient Temp 88 mmHg (65-108) Arterial Blood HCO3 36 mmol/L (21-28) Arterial Blood Base Excess 9 mmol/L (-3-3) FiO2 50 VTE Prophylaxis Ordered VTE Prophylaxis Devices: Yes VTE Pharmacological Prophylaxi: Yes Assessment/Plan Assessment/Plan Acute hypercapnic respiratory failure on top of chronic respiratory failure, chronically trached Lots of secretions History of H,CAP Atelectasis Small pleural effusion Cachexia Chronic dysphagia, chronically PEG on tube feeds Severe PCM Allergies to aspirin History bacteremia Full code Anemia of chronic disease Plan: Admit 2 midnights, scopolamine patch I have reconciled home meds Lovenox for DVT prophylaxis Nutrition consult for tube feeds and PCM severe ID and primary consults DuoNedonna's Cough medicine Supportive meds Full code PT OT when able Discussed with infectious disease HEAVEN KRAUS MD Apr 30, 2018 10:21
[2018-04-30] MEDS: fentaNYL 50MCG/HR PATCH 1 PATCH PATCH.TD72 TD SCH (10:27)
[2018-04-30] MEDS: ATENOLOL 50 MG TABLET. PEG SCH (10:28)
[2018-04-30] MEDS: GABAPENTIN 300 MG CAPSULE. PO SCH ×3 (10:28→21:15)
[2018-04-30] MEDS: LACTOBACILLUS RHAMNOSUS GG 1 CAPSULE. PO SCH ×2 (10:28→21:15)
[2018-04-30] MEDS: CHLORTHALIDONE 25 MG TABLET. PEG SCH (10:28)
[2018-04-30] MEDS: ENOXAPARIN 40 MG/0.4 ML SYRINGE. SQ SCH (10:29)
[2018-04-30 10:36] VITALS: BP 177/83
[2018-04-30] MEDS: SCOPOLAMINE 1.5MG PATCH. TD SCH (10:47)
--- NOTE | 2018-04-30 11:42 | CONS ---
DATE OF CONSULTATION: ATTENDING PHYSICIAN: Dr. Nina. REASON FOR CONSULTATION: Pneumonia, abnormal ABGs, respiratory failure. HISTORY OF PRESENT ILLNESS: The patient is very well known to us. She is a 78-year-old female who has history of multiple admissions for pneumonias including MRSA, pseudomonas. 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 She has received radiation. She was brought into the hospital with increasing trach secretions. She has copious amount of secretions coming out of the trach. She was a bit lethargic as well. Arterial blood gases revealed a pH of 7.37, pCO2 of 64, and pO2 of 88 on 50% FiO2. I have reviewed her chest x-ray and it shows some left lower lobe infiltrates along with atelectasis. The patient was started on antibiotics, vancomycin and Zosyn. I have been asked to see her for further evaluation. Her recent hospitalization in March had shown that she had pseudomonas which was sensitive only to aminoglycosides. PAST MEDICAL HISTORY: Extensive and has been well mentioned in past consults, remarkable for chronic respiratory failure secondary to history of laryngeal carcinoma and history of carcinoma of the left lung, status post radiation and has a chronic tracheostomy. Multiple hospitalizations for pneumonia including MRSA and multidrug resistant pseudomonas. C. diff along with the previous E. coli. History of gastroesophageal reflux, sleep apnea, peptic ulcer disease, DVT in the past and gastroparesis, history of chronic back surgeries, tracheostomy, neck dissection, cataract extraction, Port-A-Cath and PEG. ALLERGIES: None. MEDICATIONS: Reviewed as listed in the MRAD. REVIEW OF SYSTEMS: Unable to obtain from the patient. PHYSICAL EXAMINATION: GENERAL: She is awake, somewhat lethargic, but answers "yes" and "no" to questions. VITAL SIGNS: Blood pressure 177/83, afebrile. Pulse ox 95% on trach collar. HEENT: Sclerae nonicteric. NECK: Supple. Trach in place. LUNGS: With diminished breath sounds with few anterior rhonchi. CARDIOVASCULAR: Regular rate. ABDOMEN: Soft. PEG in place. EXTREMITIES: No pitting edema. LABORATORY DATA: Reviewed. ABGs as discussed in my history of present illness. BUN 31, creatinine 1.1. INR 1.1. White cell count 15.6, hemoglobin 10.7, platelets are 424. IMPRESSION: 1. Acute on chronic respiratory failure secondary to severe, recurrent tracheobronchitis and suspected left lung pneumonia. This is a patient who had pneumonias with multiple organisms including MRSA and multi-resistant pseudomonas pneumonia recently in March. I would recommend Infectious Disease consult. 2. History of chronic respiratory failure with chronic tracheostomy. 3. History of laryngeal carcinoma and history of left lung cancer, status post radiation. 4. Leukocytosis. 5. Chronic dysphagia. RECOMMENDATIONS: 1. Continue with present Trach care with p.r.n. aggressive suction. 2. We will hold bronchoscopy for now. 3. Broad-spectrum antibiotics have been initiated. Would recommend Infectious Disease consult due to history of multi-resistant pseudomonas pneumonia and MRSA. 4. Aggressive bronchodilators. 5. Pulmonary toilet. 6. Discussed with RN and we will follow along with you. d/w Dr Workman MARY LANIER MD DR: AINSLEY/sena JOB#: [id number] / [id number] CATA
[2018-04-30] MEDS: IPRATRPIUM/ALBUTEROL 0.5/2.5MG 3 ML NEBU. NEB SCH ×3 (12:34→20:49)
[2018-04-30] MEDS: METOCLOPRAMIDE ORAL SOLN 10 MG/10 ML SOLUTION. PEG SCH ×3 (12:59→21:15)
[2018-04-30] MEDS: MORPHINE SULFATE 2 MG/ML VIAL. IV PRN (13:20)
[2018-04-30] MEDS: CEFTOLOZANE/TAZOBACTAM 1,500 MG in IV NORMAL SALINE 100ML 100 ML IV SCH ×2 (14:39→21:18)
[2018-04-30 15:00] VITALS: BP 118/58
[2018-04-30] MEDS: LANSOPRAZOLE 30 MG TAB.RAP.DR PEG SCH (16:44)
[2018-04-30 19:00] VITALS: BP 133/53
[2018-04-30] MEDS ORDERED: VANCOMYCIN 1 GM in IV NORMAL SALINE 250ML 250 ML IV SCH (20:00)
[2018-04-30] MEDS: CYPROHEPTADINE 4 MG TABLET. PEG SCH (21:16)
--- NOTE | 2018-04-30 22:37 | CONS ---
DATE OF CONSULTATION: 04/30/2018 REQUESTING PHYSICIAN: Dr. Ortiz. REASON FOR CONSULTATION: Multidrug-resistant Pseudomonas history with pneumonia. HISTORY OF PRESENT ILLNESS: This is a 78-year-old female, with a history of trach and multidrug-resistant Pseudomonas in the past, comes in with shortness of breath, cough, thick purulent secretion from the trach. The patient has been started on vancomycin and Zosyn and consult has been requested. The patient denies any fever, denies any nausea, vomiting, diarrhea. Denies any chest pain, abdominal pain, urinary symptoms or bowel symptoms. PAST MEDICAL HISTORY: Positive for chronic respiratory failure, has had laryngeal carcinoma and carcinoma of the lung, received surgery and radiation and has a trach for a long time. The patient has had multiple hospitalizations with a history of multidrug-resistant Pseudomonas, also has had MRSA, history of C. diff. SOCIAL HISTORY: Negative for smoking, alcohol or illicit drug use. ALLERGIES: No known drug allergies. CURRENT MEDICATIONS: The patient is on vancomycin and Zosyn. REVIEW OF SYSTEMS: As per HPI. All other systems reviewed and are negative. PHYSICAL EXAMINATION: GENERAL: Alert and oriented female, not in any distress. VITAL SIGNS: Stable, afebrile. HEENT: NAD. NECK: Supple, no JVP, no lymphadenopathy. Tracheostomy in place. LUNGS: Decreased breath sounds. HEART: S1, S2 regular. No gallop or murmur. ABDOMEN: Soft, nontender, no organomegaly. EXTREMITIES: No edema or cyanosis. SKIN: Unremarkable other than being thin and cachectic. LABORATORY DATA: White count is 15.6. BUN 31, creatinine 1.1. Urinalysis unremarkable. Culture from the tracheal aspirate is not ordered, I will order it. Chest x-ray is showing interstitial prominence with small left pleural effusion, dense left lung base airspace opacity, which is increased. Her last month Pseudomonas was multidrug resistant, is resistant to everything except aminoglycoside. IMPRESSION: 1. Pneumonia with multidrug-resistant organism in the past. 2. Chronic respiratory failure. 3. Leukocytosis. 4. History of lung cancer. 5. History of laryngeal cancer. RECOMMENDATIONS: We will change vancomycin and Zosyn to Zerbaxa. Supportive care. We will get the tracheal aspirate for culture. Blood culture has been done and we will continue to follow. Thank you very much, Dr. Ortiz, for giving me the opportunity to participate in this patient's care. ASTER MATOS MD DR: BAUTISTA/sena JOB#: [id number] / [id number]
[2018-04-30 23:00] VITALS: BP 124/62
[2018-05-01 03:16] VITALS: BP 114/64
[2018-05-01] MEDS: CEFTOLOZANE/TAZOBACTAM 1,500 MG in IV NORMAL SALINE 100ML 100 ML IV SCH ×3 (06:10→22:58)
[2018-05-01 07:00] VITALS: BP 150/74
[2018-05-01] MEDS: IPRATRPIUM/ALBUTEROL 0.5/2.5MG 3 ML NEBU. NEB SCH ×4 (07:30→20:29)
[2018-05-01] MEDS: GABAPENTIN 300 MG CAPSULE. PO SCH ×3 (08:30→21:23)
[2018-05-01] MEDS: LANSOPRAZOLE 30 MG TAB.RAP.DR PEG SCH ×2 (08:30→17:18)
[2018-05-01] MEDS: ATENOLOL 50 MG TABLET. PEG SCH (08:31)
[2018-05-01] MEDS: CHLORTHALIDONE 25 MG TABLET. PEG SCH (08:31)
[2018-05-01] MEDS: CYPROHEPTADINE 4 MG TABLET. PEG SCH ×2 (08:31→21:00)
[2018-05-01] MEDS: METOCLOPRAMIDE ORAL SOLN 10 MG/10 ML SOLUTION. PEG SCH ×4 (08:32→21:23)
[2018-05-01] MEDS: LACTOBACILLUS RHAMNOSUS GG 1 CAPSULE. PO SCH ×2 (08:32→21:23)
[2018-05-01] MEDS: LOSARTAN POTASSIUM 50 MG TABLET. PEG SCH (08:32)
--- NOTE | 2018-05-01 09:54 | PDOC ---
PULMONARY PROGRESS NOTES Subjective trach, sob, cough better, no pain, is tired Vitals Vital Signs Date Time Temp Pulse Resp B/P (MAP) Pulse Ox O2 Delivery O2 Flow Rate FiO2 05/01/18 08:32 81 150/74 05/01/18 07:32 100 10.0 05/01/18 07:00 97.7 18 Tracheal Collar 97.7 ROS: No Nausea, No Chest Pain General: Alert HEENT: Other (nc at perrl. nose throat clear. trach site ok) Lungs: Wheezing, Crackles Cardiovascular: S1, S2 Abdomen: Soft, Non-tender Neuro Exam: Alert Extremities: No Edema Skin: Warm Labs Laboratory Tests Test 04/29/18 17:40 04/29/18 18:10 04/29/18 18:29 04/29/18 23:28 Urine Collection Type Unknown Urine Color Yellow Urine Clarity Clear Urine pH 7.5 Urine Specific [place] 1.010 Urine Protein Negative mg/dL (NEG-TRACE) Urine Glucose (UA) Negative mg/dL (NEG) Urine Ketones (Stick) Negative mg/dL (NEG) Urine Blood Negative (NEG) Urine Nitrite Negative (NEG) Urine Bilirubin Negative (NEG) Urine Urobilinogen Dipstick 0.2 mg/dL (0.2 mg/dL) Urine Leukocyte Esterase Trace (NEG) Urine RBC Occ /HPF (0-2) Urine WBC 1-4 /HPF (0-4) Urine Squamous Epithelial Cells Few /LPF Urine Bacteria Few /HPF (0-FEW) White Blood Count 14.3 x10^3/uL (4.0-11.0) Red Blood Count 4.18 x10^6/uL (3.50-5.40) Hemoglobin 10.5 g/dL (12.0-15.5) Hematocrit 34.3 % (36.0-47.0) Mean Corpuscular Volume 82 fL (79-100) Mean Corpuscular Hemoglobin 25 pg (25-35) Mean Corpuscular Hemoglobin Concent 31 g/dL (31-37) Red Cell Distribution Width 18.8 % (11.5-14.5) Platelet Count 415 x10^3/uL (140-400) Neutrophils (%) (Auto) 72 % (31-73) Lymphocytes (%) (Auto) 17 % (24-48) Monocytes (%) (Auto) 8 % (0-9) Eosinophils (%) (Auto) 2 % (0-3) Basophils (%) (Auto) 1 % (0-3) Neutrophils # (Auto) 10.4 x10^3uL (1.8-7.7) Lymphocytes # (Auto) 2.4 x10^3/uL (1.0-4.8) Monocytes # (Auto) 1.1 x10^3/uL (0.0-1.1) Eosinophils # (Auto) 0.3 x10^3/uL (0.0-0.7) Basophils # (Auto) 0.1 x10^3/uL (0.0-0.2) Prothrombin Time 14.1 SEC (11.7-14.0) Prothromb Time International Ratio 1.1 (0.8-1.1) Activated Partial Thromboplast Time 35 SEC (24-38) Sodium Level 136 mmol/L (136-145) Potassium Level 4.5 mmol/L (3.5-5.1) Chloride Level 98 mmol/L (98-107) Carbon Dioxide Level 35 mmol/L (21-32) Anion Gap 3 (6-14) Blood Urea Nitrogen 43 mg/dL (7-20) Creatinine 1.2 mg/dL (0.6-1.0) Estimated GFR (Cockcroft-Gault) 52.7 Glucose Level 103 mg/dL (70-99) Lactic Acid Level 0.6 mmol/L (0.4-2.0) Calcium Level 8.9 mg/dL (8.5-10.1) Total Bilirubin 0.3 mg/dL (0.2-1.0) Direct Bilirubin 0.1 mg/dL (0.0-0.2) Aspartate Amino Transf (AST/SGOT) 17 U/L (15-37) Alanine Aminotransferase (ALT/SGPT) 13 U/L (14-59) Alkaline Phosphatase 82 U/L (46-116) Troponin I Quantitative 0.017 ng/mL (0.000-0.055) EF-Rjl-W-Type Natriuretic Peptide 8964 pg/mL (0-449) Total Protein 8.2 g/dL (6.4-8.2) Albumin 3.0 g/dL (3.4-5.0) Procalcitonin 0.27 ng/mL (0.00-0.10) O2 Saturation 96 % (92-99) Arterial Blood pH 7.37 (7.35-7.45) Arterial Blood pCO2 at Patient Temp 64 mmHg (35-46) Arterial Blood pO2 at Patient Temp 88 mmHg (65-108) Arterial Blood HCO3 36 mmol/L (21-28) Arterial Blood Base Excess 9 mmol/L (-3-3) FiO2 50 Nasal Screen MRSA (PCR) Negative (Negative) Test 04/30/18 05:50 White Blood Count 15.6 x10^3/uL (4.0-11.0) Red Blood Count 4.21 x10^6/uL (3.50-5.40) Hemoglobin 10.7 g/dL (12.0-15.5) Hematocrit 34.3 % (36.0-47.0) Mean Corpuscular Volume 81 fL (79-100) Mean Corpuscular Hemoglobin 26 pg (25-35) Mean Corpuscular Hemoglobin Concent 31 g/dL (31-37) Red Cell Distribution Width 18.4 % (11.5-14.5) Platelet Count 424 x10^3/uL (140-400) Neutrophils (%) (Auto) 78 % (31-73) Lymphocytes (%) (Auto) 13 % (24-48) Monocytes (%) (Auto) 6 % (0-9) Eosinophils (%) (Auto) 2 % (0-3) Basophils (%) (Auto) 1 % (0-3) Neutrophils # (Auto) 12.2 x10^3uL (1.8-7.7) Lymphocytes # (Auto) 2.0 x10^3/uL (1.0-4.8) Monocytes # (Auto) 0.9 x10^3/uL (0.0-1.1) Eosinophils # (Auto) 0.4 x10^3/uL (0.0-0.7) Basophils # (Auto) 0.1 x10^3/uL (0.0-0.2) Sodium Level 137 mmol/L (136-145) Potassium Level 4.0 mmol/L (3.5-5.1) Chloride Level 100 mmol/L (98-107) Carbon Dioxide Level 37 mmol/L (21-32) Anion Gap 0 (6-14) Blood Urea Nitrogen 31 mg/dL (7-20) Creatinine 1.1 mg/dL (0.6-1.0) Estimated GFR (Cockcroft-Gault) 58.3 Glucose Level 122 mg/dL (70-99) Calcium Level 9.1 mg/dL (8.5-10.1) Troponin I Quantitative < 0.017 ng/mL (0.000-0.055) Medications Active Scripts Medications Dose Route/Sig Max Daily Dose Days Date Category Gabapentin 300 Mg Capsule 300 Mg PO TID 30 02/18/18 Rx Culturelle (Lactobacillus Rhamnosus Gg) 1 Each Cap.sprink 1 Cap PO BID 30 07/07/17 Rx Diovan (Valsartan) 160 Mg Tablet 160 Mg PEG DAILY 03/11/17 Reported Pantoprazole Sodium 40 Mg Tablet.dr 40 Mg PEG BID 03/11/17 Reported Donepezil Hcl 5 Mg Tablet 5 Mg PEG BID 03/11/17 Reported Reglan (Metoclopramide Hcl) 10 Mg Tablet 5 Mg PO QIDAFTMEAL 03/11/17 Reported Atenolol-Chlorthal 50-25 Tb (Atenolol/Chlorthalidone) 1 Each Tablet 1 Tab PEG DAILY 03/11/17 Reported Cyproheptadine Hcl 2 Mg/5 Ml Syrup 2 Mg PEG BID 03/11/17 Reported Percocet 7.5-325 Mg Tablet (Oxycodone/Acetaminophen) 1 Each Tablet 1 Tab PO QID PRN 03/11/17 Reported Proair Hfa Inhaler (Albuterol Sulfate) 8.5 Gm Hfa.aer.ad 2 Puff IH PRN Q4-6HRS 08/16/15 Reported FENTANYL 50mcg/hr (Fentanyl) 1 Each Patch.td72 1 Patch TP Q3DAYS 06/19/14 Reported Ondansetron Odt (Ondansetron) 4 Mg Tab.rapdis 4 Mg PEG QIDPRN PRN 06/19/14 Reported Impression . IMPRESSION: 1. Acute on chronic respiratory failure secondary to severe, recurrent tracheobronchitis and suspected left lung pneumonia. This is a patient who had pneumonias with multiple organisms including MRSA and multi-resistant pseudomonas pneumonia recently in March. I would recommend Infectious Disease consult. 2. History of chronic respiratory failure with chronic tracheostomy. 3. History of laryngeal carcinoma and history of left lung cancer, status post radiation. 4. Leukocytosis. 5. Chronic dysphagia. Plan . RECOMMENDATIONS: 1. Continue with present Trach care with p.r.n. aggressive suction. 2. no need for bronchoscopy now. 3. antibiotics per ID. has history of multi-resistant pseudomonas pneumonia and MRSA. 4. Aggressive bronchodilators. add ICS 5. Pulmonary toilet. 6. Lovenox, Prevacid for prophylaxis discussed w SUZANNE Gallagher MD May 01, 2018 09:54
[2018-05-01] MEDS: ONDANSETRON PF 4 MG/2 ML VIAL. IV PRN (10:42)
[2018-05-01] MEDS: BUDESONIDE 0.5 MG/2 ML NEBU. NEB SCH ×2 (11:16→20:25)
[2018-05-01] MEDS: ENOXAPARIN 40 MG/0.4 ML SYRINGE. SQ SCH (11:26)
[2018-05-01] MEDS: DONEPEZIL HCL 5 MG TABLET. PEG SCH ×2 (11:26→21:23)
--- NOTE | 2018-05-01 11:55 | PDOC ---
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 14.History of lung cancer. 15.History of laryngeal cancer. 16.GNR in urine from 04/29. UA neg History of Present Illness History of Present Illness continue ABx Lovenox for DVT prophylaxis Nutrition consult for tube feeds and PCM severe DuoNeb's Cough medicine Supportive meds Full code PT OT when able Vitals Vitals Vital Signs Date Time Temp Pulse Resp B/P (MAP) Pulse Ox O2 Delivery O2 Flow Rate FiO2 05/01/18 11:19 100 10.0 05/01/18 08:32 81 150/74 05/01/18 08:15 Trach Collar 05/01/18 07:00 97.7 18 97.7 Physical Exam General: Alert, No acute distress Heart: Regular rate, Normal S1, No murmurs Lungs: Wheezing, Crackles Abdomen: Normal bowel sounds, Soft, No tenderness, No hepatosplenomegaly, No masses, Other (PEG) Extremities: No clubbing, No cyanosis, No edema, Normal pulses, No tenderness/ swelling Skin: Other (Minimal subcutaneous tissue, senile skin turgor) Assessment and Plan Assessmemt and Plan Problems Medical Problems: (1) Chronic respiratory failure Status: Acute (2) Dyspnea Status: Acute Comment Review of Relevant I have reviewed the following items miko (where applicable) has been applied. Labs Laboratory Tests Test 04/29/18 17:40 04/29/18 18:10 04/29/18 18:29 04/29/18 23:28 Urine Collection Type Unknown Urine Color Yellow Urine Clarity Clear Urine pH 7.5 Urine Specific [place] 1.010 Urine Protein Negative mg/dL (NEG-TRACE) Urine Glucose (UA) Negative mg/dL (NEG) Urine Ketones (Stick) Negative mg/dL (NEG) Urine Blood Negative (NEG) Urine Nitrite Negative (NEG) Urine Bilirubin Negative (NEG) Urine Urobilinogen Dipstick 0.2 mg/dL (0.2 mg/dL) Urine Leukocyte Esterase Trace (NEG) Urine RBC Occ /HPF (0-2) Urine WBC 1-4 /HPF (0-4) Urine Squamous Epithelial Cells Few /LPF Urine Bacteria Few /HPF (0-FEW) White Blood Count 14.3 x10^3/uL (4.0-11.0) Red Blood Count 4.18 x10^6/uL (3.50-5.40) Hemoglobin 10.5 g/dL (12.0-15.5) Hematocrit 34.3 % (36.0-47.0) Mean Corpuscular Volume 82 fL (79-100) Mean Corpuscular Hemoglobin 25 pg (25-35) Mean Corpuscular Hemoglobin Concent 31 g/dL (31-37) Red Cell Distribution Width 18.8 % (11.5-14.5) Platelet Count 415 x10^3/uL (140-400) Neutrophils (%) (Auto) 72 % (31-73) Lymphocytes (%) (Auto) 17 % (24-48) Monocytes (%) (Auto) 8 % (0-9) Eosinophils (%) (Auto) 2 % (0-3) Basophils (%) (Auto) 1 % (0-3) Neutrophils # (Auto) 10.4 x10^3uL (1.8-7.7) Lymphocytes # (Auto) 2.4 x10^3/uL (1.0-4.8) Monocytes # (Auto) 1.1 x10^3/uL (0.0-1.1) Eosinophils # (Auto) 0.3 x10^3/uL (0.0-0.7) Basophils # (Auto) 0.1 x10^3/uL (0.0-0.2) Prothrombin Time 14.1 SEC (11.7-14.0) Prothromb Time International Ratio 1.1 (0.8-1.1) Activated Partial Thromboplast Time 35 SEC (24-38) Sodium Level 136 mmol/L (136-145) Potassium Level 4.5 mmol/L (3.5-5.1) Chloride Level 98 mmol/L (98-107) Carbon Dioxide Level 35 mmol/L (21-32) Anion Gap 3 (6-14) Blood Urea Nitrogen 43 mg/dL (7-20) Creatinine 1.2 mg/dL (0.6-1.0) Estimated GFR (Cockcroft-Gault) 52.7 Glucose Level 103 mg/dL (70-99) Lactic Acid Level 0.6 mmol/L (0.4-2.0) Calcium Level 8.9 mg/dL (8.5-10.1) Total Bilirubin 0.3 mg/dL (0.2-1.0) Direct Bilirubin 0.1 mg/dL (0.0-0.2) Aspartate Amino Transf (AST/SGOT) 17 U/L (15-37) Alanine Aminotransferase (ALT/SGPT) 13 U/L (14-59) Alkaline Phosphatase 82 U/L (46-116) Troponin I Quantitative 0.017 ng/mL (0.000-0.055) EU-Nqc-S-Type Natriuretic Peptide 8964 pg/mL (0-449) Total Protein 8.2 g/dL (6.4-8.2) Albumin 3.0 g/dL (3.4-5.0) Procalcitonin 0.27 ng/mL (0.00-0.10) O2 Saturation 96 % (92-99) Arterial Blood pH 7.37 (7.35-7.45) Arterial Blood pCO2 at Patient Temp 64 mmHg (35-46) Arterial Blood pO2 at Patient Temp 88 mmHg (65-108) Arterial Blood HCO3 36 mmol/L (21-28) Arterial Blood Base Excess 9 mmol/L (-3-3) FiO2 50 Nasal Screen MRSA (PCR) Negative (Negative) Test 04/30/18 05:50 White Blood Count 15.6 x10^3/uL (4.0-11.0) Red Blood Count 4.21 x10^6/uL (3.50-5.40) Hemoglobin 10.7 g/dL (12.0-15.5) Hematocrit 34.3 % (36.0-47.0) Mean Corpuscular Volume 81 fL (79-100) Mean Corpuscular Hemoglobin 26 pg (25-35) Mean Corpuscular Hemoglobin Concent 31 g/dL (31-37) Red Cell Distribution Width 18.4 % (11.5-14.5) Platelet Count 424 x10^3/uL (140-400) Neutrophils (%) (Auto) 78 % (31-73) Lymphocytes (%) (Auto) 13 % (24-48) Monocytes (%) (Auto) 6 % (0-9) Eosinophils (%) (Auto) 2 % (0-3) Basophils (%) (Auto) 1 % (0-3) Neutrophils # (Auto) 12.2 x10^3uL (1.8-7.7) Lymphocytes # (Auto) 2.0 x10^3/uL (1.0-4.8) Monocytes # (Auto) 0.9 x10^3/uL (0.0-1.1) Eosinophils # (Auto) 0.4 x10^3/uL (0.0-0.7) Basophils # (Auto) 0.1 x10^3/uL (0.0-0.2) Sodium Level 137 mmol/L (136-145) Potassium Level 4.0 mmol/L (3.5-5.1) Chloride Level 100 mmol/L (98-107) Carbon Dioxide Level 37 mmol/L (21-32) Anion Gap 0 (6-14) Blood Urea Nitrogen 31 mg/dL (7-20) Creatinine 1.1 mg/dL (0.6-1.0) Estimated GFR (Cockcroft-Gault) 58.3 Glucose Level 122 mg/dL (70-99) Calcium Level 9.1 mg/dL (8.5-10.1) Troponin I Quantitative < 0.017 ng/mL (0.000-0.055) Microbiology 04/29/18 Blood Culture - Preliminary, Resulted NO GROWTH AFTER 1 DAY 04/29/18 Urine Culture - Preliminary, Resulted 04/29/18 Urine Culture Result 1 (VANITA) - Preliminary, Resulted Medications Current Medications Albuterol/ Ipratropium (Duoneb) 3 ml 1X ONCE NEB Last administered on at 17:56; Start 04/29/18 at 17:45; Stop 04/29/18 at 17:46; Status DC Piperacillin Sod/ Tazobactam Sod (Zosyn Per Pharmacy) 1 each PRN DAILY PRN MC SEE COMMENTS; Start 04/29/18 at 19:30 Vancomycin HCl (Vanco Per Pharmacy) 1 each PRN DAILY PRN MC SEE COMMENTS Last administered on 04/30/18at 01:00; Start 04/29/18 at 19:30; Stop 04/30/18 at 12:28 ; Status DC Piperacillin Sod/ Tazobactam Sod 4.5 gm/Sodium Chloride 100 ml @ 200 mls/hr 1X ONCE IV Last administered on 04/29/18at 19:56; Start 04/29/18 at 19:45; Stop 04/29/18 at 20:14; Status DC Vancomycin HCl 1.25 gm/Sodium Chloride 250 ml @ 167 mls/hr ONCE ONCE IV Last administered on 04/29/18at 19:56; Start 04/29/18 at 20:00; Stop 04/29/18 at 21:29 ; Status DC Oxycodone/ Acetaminophen (Percocet 7.5/ 325) 1 tab 1X ONCE PO Last administered on 04/29/18at 21:44; Start 04/29/18 at 21:15; Stop 04/29/18 at 21:16 ; Status DC Piperacillin Sod/ Tazobactam Sod 2.25 gm/Sodium Chloride 50 ml @ 100 mls/hr Q6HRS IV Last administered on 04/30/18at 11:44; Start 04/30/18 at 06:00; Stop at 12:12; Status DC Vancomycin HCl 1 gm/Sodium Chloride 250 ml @ 250 mls/hr Q24H IV ; Start at 20:00; Stop 04/30/18 at 20:00; Status DC Vancomycin HCl (Vancomycin Trough Level) 1 each 1X ONCE MC ; Start 05/01/18 at 19:30; Stop 05/01/18 at 19:30; Status DC Lactobacillus Rhamnosus (Culturelle) 1 cap BID PO ; Start 04/30/18 at 09:00; Status Cancel Acetaminophen (Tylenol) 650 mg PRN Q6HRS PRN PEG MILD PAIN / TEMP; Start at 08:45 Ondansetron HCl (Zofran) 4 mg PRN Q6HRS PRN IV NAUSEA/VOMITING Last administered on 05/01/18at 10:42; Start 04/30/18 at 08:45 Ondansetron HCl (Zofran Odt) 4 mg PRN Q6HRS PRN PO NAUSEA/VOMITING; Start 04/30 at 08:45; Status Cancel Fentanyl (Duragesic 50mcg/ Hr Patch) 1 patch Q3DAYS TD Last administered on at 10:27; Start 04/30/18 at 10:00 Lactobacillus Rhamnosus (Culturelle) 1 cap BID PO Last administered on at 08:32; Start 04/30/18 at 10:00 Metoclopramide HCl (Reglan) 5 mg QIDAFTMEAL PO ; Start 04/30/18 at 09:45; Stop 04/30/18 at 09:47; Status DC Ondansetron HCl (Zofran Odt) 4 mg QIDPRN PRN PEG NAUSEA/VOMITING; Start at 08:45 Oxycodone/ Acetaminophen (Percocet 7.5/ 325) 1 tab PRN QID PRN PO MODERATE TO SEVERE PAIN; Start 04/30/18 at 08:45; Stop 04/30/18 at 09:49; Status DC Pantoprazole Sodium (Protonix) 40 mg BIDAC PO ; Start 04/30/18 at 09:45; Stop at 09:52; Status DC Non-Formulary Medication (Albuterol Sulfate (Proair Hfa Inhaler)) 2 puff PRN Q4- 6HRS IH ; Start 04/30/18 at 08:45; Status UNV Atenolol (Tenormin) 50 mg DAILY PEG Last administered on 05/01/18at 08:31; Start 04/30/18 at 10:00 Cyproheptadine HCl (Periactin) 2 mg BID PO ; Start 04/30/18 at 09:45; Stop 04/30 at 09:48; Status DC Donepezil HCl (Aricept) 5 mg BID PEG Last administered on 05/01/18at 11:26; Start 05/01/18 at 10:00 Gabapentin (Neurontin) 300 mg TID PO Last administered on 05/01/18 08:30; Start 04/30/18 at 10:00 Losartan Potassium (Cozaar) 100 mg DAILY PEG Last administered on 05/01/18at 08: 32; Start 05/01/18 at 09:00 Enoxaparin Sodium (Lovenox 40mg Syringe) 40 mg Q24H SQ Last administered on at 11:26; Start 04/30/18 at 10:00 Morphine Sulfate (Morphine Sulfate) 1 mg PRN Q2HR PRN IV PAIN Last administered on 04/30/18at 13:20; Start 04/30/18 at 08:45 Albuterol/ Ipratropium (Duoneb) 3 ml RTQID NEB Last administered on 05/01/18at 11:16; Start 04/30/18 at 12:00 Guaifenesin (Robitussin Dm) 10 ml PRN Q6HRS PRN PO COUGH; Start 04/30/18 at 08: 45; Stop 04/30/18 at 09:48; Status DC Metoclopramide HCl (Reglan Oral Solution) 5 mg QIDAFTMEAL PEG Last administered on 05/01/18 08:32; Start 04/30/18 at 09:47 Cyproheptadine HCl (Periactin) 2 mg BID PEG Last administered on 05/01/18at 08: 31; Start 04/30/18 at 09:48 Guaifenesin (Robitussin Dm) 10 ml PRN Q6HRS PRN PEG COUGH; Start 04/30/18 at 09 :48 Oxycodone/ Acetaminophen (Percocet 7.5/ 325) 1 tab PRN QID PRN PEG MODERATE TO SEVERE PAIN; Start 04/30/18 at 09:49 Lansoprazole (Prevacid) 30 mg BIDAC PEG Last administered on 05/01/18at 08:30; Start 04/30/18 at 10:00 Chlorthalidone (Thalitone) 25 mg DAILY PEG Last administered on 05/01/18at 08:31 ; Start 04/30/18 at 10:00 Albuterol Sulfate (Ventolin Neb Soln) 2.5 mg PRN Q4HRS PRN NEB SHORTNESS OF BREATH; Start 04/30/18 at 10:00 Scopolamine (Transderm-Scop) 1 patch Q3DAYS TD Last administered on 04/30/18at 10:47; Start 04/30/18 at 11:00 Scopolamine (Transderm-Scop) 1 patch 1X ONCE TD ; Start 04/30/18 at 10:15; Stop 04/30/18 at 10:16; Status UNV Ceftolozane/ Tazobactam 1500 mg/Sodium Chloride 100 ml @ 100 mls/hr Q8HRS IV Last administered on 05/01/18at 06:10; Start 04/30/18 at 14:00 Budesonide (Pulmicort) 0.5 mg RTBID NEB Last administered on 05/01/18at 11:16; Start 05/01/18 at 10:30 Active Scripts Active Gabapentin 300 Mg Capsule 300 Mg PO TID 30 Days Culturelle (Lactobacillus Rhamnosus Gg) 1 Each Cap.sprink 1 Cap PO BID 30 Days Reported Diovan (Valsartan) 160 Mg Tablet 160 Mg PEG DAILY Pantoprazole Sodium 40 Mg Tablet.dr 40 Mg PEG BID Donepezil Hcl 5 Mg Tablet 5 Mg PEG BID Reglan (Metoclopramide Hcl) 10 Mg Tablet 5 Mg PO QIDAFTMEAL Atenolol-Chlorthal 50-25 Tb (Atenolol/Chlorthalidone) 1 Each Tablet 1 Tab PEG DAILY Cyproheptadine Hcl 2 Mg/5 Ml Syrup 2 Mg PEG BID Percocet 7.5-325 Mg Tablet (Oxycodone/Acetaminophen) 1 Each Tablet 1 Tab PO QID PRN Proair Hfa Inhaler (Albuterol Sulfate) 8.5 Gm Hfa.aer.ad 2 Puff IH PRN Q4-6HRS FENTANYL 50mcg/hr (Fentanyl) 1 Each Patch.td72 1 Patch TP Q3DAYS Ondansetron Odt (Ondansetron) 4 Mg Tab.rapdis 4 Mg PEG QIDPRN PRN Vitals/I & O Vital Sign - Last 24 Hours 04/30/18 04/30/18 04/30/18 04/30/18 12:50 13:20 14:39 14:39 Pulse Ox 100 O2 Delivery Tracheal Collar Tracheal Collar Tracheal Collar Tracheal Collar O2 Flow Rate 10.0 04/30/18 04/30/18 04/30/18 04/30/18 15:00 15:43 19:00 20:00 Temp 97.7 98.8 97.7 98.8 Pulse 91 94 Resp 18 20 B/P (MAP) 118/58 (78) 133/53 (79) Pulse Ox 86 91 O2 Delivery Tracheal Collar Tracheal Collar Tracheal Collar Trach Collar O2 Flow Rate 10.0 10.0 04/30/18 04/30/18 05/01/18 05/01/18 20:49 23:00 03:16 04:00 Temp 99.0 99.2 99.0 99.2 Pulse 100 87 Resp 20 20 B/P (MAP) 124/62 (82) 114/64 (81) Pulse Ox 100 91 92 100 O2 Delivery Tracheal Collar Tracheal Collar Tracheal Collar O2 Flow Rate 10.0 10.0 05/01/18 05/01/18 05/01/18 05/01/18 07:00 07:32 08:15 08:31 Temp 97.7 97.7 Pulse 81 81 Resp 18 B/P (MAP) 150/74 (99) 150/74 Pulse Ox 94 100 O2 Delivery Tracheal Collar Trach Collar O2 Flow Rate 10.0 10.0 05/01/18 05/01/18 08:32 11:19 Pulse 81 B/P (MAP) 150/74 Pulse Ox 100 O2 Flow Rate 10.0 Intake and Output 04/30/18 04/30/18 05/01/18 15:00 23:00 07:00 Intake Total 50 ml 0 ml 700 ml Output Total 550 ml 300 ml Balance 50 ml -550 ml 400 ml Nutrition Consultation Dietary Evaluation: Comments: continue bolus TF via PEG Expected Outcomes/Goals: wt maintanence Malnutrition Findings: Body Fat Depletion (Non Severe: Mild Depletion Weight Status: Underweight HELEN DICKSON MD May 01, 2018 11:55
[2018-05-01 15:00] VITALS: BP 112/56
--- NOTE | 2018-05-01 16:39 | PDOC ---
Infectious Disease Note Subjective Subjective Not feeling well Denies SOA/CP Denies F/C/aches Denies N/V/D ROS ROS per HPI Vital Sign Vital Signs Vital Signs Date Time Temp Pulse Resp B/P (MAP) Pulse Ox O2 Delivery O2 Flow Rate FiO2 05/01/18 15:36 100 10.0 05/01/18 08:32 81 150/74 05/01/18 08:15 Trach Collar 05/01/18 07:00 97.7 18 97.7 Physical Exam PHYSICAL EXAM GENERAL: Propped up in bed, weak appearing NECK: Tracheostomy in place, LUNGS: Decreased breath sounds. HEART: S1, S2 regular. ABDOMEN: Soft, nontender, PEG EXTREMITIES: No edema or cyanosis. SKIN: without rash [employer]: Arouses easily to name, nods to questions Port Labs Micro URINE CULTURE RES 1 Preliminary Gram negative rods 10,000-25,000 colony forming units per mL BLOOD CULTURE Preliminary NO GROWTH AFTER 1 DAY Objective Assessment Pneumonia with multidrug-resistant organism in the past. Chronic respiratory failure. Leukocytosis. History of lung cancer. History of laryngeal cancer. GNR in urine from 04/29. UA neg Plan Plan of Care Zerbaxa f/u am labs and cultures Supportive care RAISA VILLAR APRN May 01, 2018 16:39 EMBER MADDEN MD May 01, 2018 19:48
[2018-05-01 20:05] VITALS: BP 108/58
[2018-05-01 23:28] VITALS: BP 107/62
[2018-05-02] MEDS: MORPHINE SULFATE 2 MG/ML VIAL. IV PRN (01:51)
[2018-05-02 03:00] VITALS: BP 136/73
[2018-05-02 05:50] LABS: HEMATOCRIT 31.4 % (36.0-47.0); HEMOGLOBIN 9.8 g/dL (12.0-15.5); RED BLOOD COUNT 3.82 x10^6/uL (3.50-5.40); RED CELL DISTRIBUTION WIDTH 18.7 % (11.5-14.5); WHITE BLOOD COUNT 11.1 x10^3/uL (4.0-11.0)
[2018-05-02] MEDS: CEFTOLOZANE/TAZOBACTAM 1,500 MG in IV NORMAL SALINE 100ML 100 ML IV SCH ×3 (06:11→21:56)
[2018-05-02 06:12] LABS: ALBUMIN 2.4 g/dL (3.4-5.0); ALBUMIN/GLOBULIN RATIO 0.4 (1.0-1.7); CALCIUM 9.5 mg/dL (8.5-10.1); CREATININE 1.1 mg/dL (0.6-1.0); GFR 58.3; POTASSIUM 3.9 mmol/L (3.5-5.1); TOTAL BILIRUBIN 0.3 mg/dL (0.2-1.0)
[2018-05-02 07:00] VITALS: BP 165/69
[2018-05-02] MEDS: BUDESONIDE 0.5 MG/2 ML NEBU. NEB SCH ×2 (07:15→19:53)
[2018-05-02] MEDS: IPRATRPIUM/ALBUTEROL 0.5/2.5MG 3 ML NEBU. NEB SCH ×4 (07:15→19:53)
[2018-05-02] MEDS: CHLORTHALIDONE 25 MG TABLET. PEG SCH (08:37)
[2018-05-02] MEDS: ATENOLOL 50 MG TABLET. PEG SCH (08:37)
[2018-05-02] MEDS: METOCLOPRAMIDE ORAL SOLN 10 MG/10 ML SOLUTION. PEG SCH ×4 (08:37→21:10)
[2018-05-02] MEDS: LANSOPRAZOLE 30 MG TAB.RAP.DR PEG SCH ×2 (08:38→14:25)
[2018-05-02] MEDS: LACTOBACILLUS RHAMNOSUS GG 1 CAPSULE. PO SCH ×2 (08:38→21:02)
[2018-05-02] MEDS: DONEPEZIL HCL 5 MG TABLET. PEG SCH ×2 (08:38→21:02)
[2018-05-02] MEDS: GABAPENTIN 300 MG CAPSULE. PO SCH ×3 (08:38→21:02)
[2018-05-02] MEDS: LOSARTAN POTASSIUM 50 MG TABLET. PEG SCH (08:38)
[2018-05-02] MEDS: CYPROHEPTADINE 4 MG TABLET. PEG SCH ×2 (08:38→21:00)
[2018-05-02] MEDS: ENOXAPARIN 40 MG/0.4 ML SYRINGE. SQ SCH (08:39)
--- NOTE | 2018-05-02 09:29 | PDOC ---
PULMONARY PROGRESS NOTES Subjective trach, sob, cough better, no pain Vitals Vital Signs Date Time Temp Pulse Resp B/P (MAP) Pulse Ox O2 Delivery O2 Flow Rate FiO2 05/02/18 08:38 81 136/73 05/02/18 07:17 96 10.0 05/02/18 07:00 97.8 18 Tracheal Collar 97.8 ROS: No Nausea, No Chest Pain General: Alert HEENT: Other (nc at perrl. nose throat clear. trach site ok) Lungs: Crackles Cardiovascular: S1, S2 Abdomen: Soft, Non-tender Neuro Exam: Alert Extremities: No Edema Skin: Warm Labs Laboratory Tests Test 05/02/18 05:25 White Blood Count 11.1 x10^3/uL (4.0-11.0) Red Blood Count 3.82 x10^6/uL (3.50-5.40) Hemoglobin 9.8 g/dL (12.0-15.5) Hematocrit 31.4 % (36.0-47.0) Mean Corpuscular Volume 82 fL (79-100) Mean Corpuscular Hemoglobin 26 pg (25-35) Mean Corpuscular Hemoglobin Concent 31 g/dL (31-37) Red Cell Distribution Width 18.7 % (11.5-14.5) Platelet Count 402 x10^3/uL (140-400) Sodium Level 142 mmol/L (136-145) Potassium Level 3.9 mmol/L (3.5-5.1) Chloride Level 104 mmol/L (98-107) Carbon Dioxide Level 33 mmol/L (21-32) Anion Gap 5 (6-14) Blood Urea Nitrogen 25 mg/dL (7-20) Creatinine 1.1 mg/dL (0.6-1.0) Estimated GFR (Cockcroft-Gault) 58.3 BUN/Creatinine Ratio 23 (6-20) Glucose Level 128 mg/dL (70-99) Calcium Level 9.5 mg/dL (8.5-10.1) Total Bilirubin 0.3 mg/dL (0.2-1.0) Aspartate Amino Transf (AST/SGOT) 17 U/L (15-37) Alanine Aminotransferase (ALT/SGPT) 18 U/L (14-59) Alkaline Phosphatase 76 U/L (46-116) Total Protein 8.0 g/dL (6.4-8.2) Albumin 2.4 g/dL (3.4-5.0) Albumin/Globulin Ratio 0.4 (1.0-1.7) Laboratory Tests Test 05/02/18 05:25 White Blood Count 11.1 x10^3/uL (4.0-11.0) Red Blood Count 3.82 x10^6/uL (3.50-5.40) Hemoglobin 9.8 g/dL (12.0-15.5) Hematocrit 31.4 % (36.0-47.0) Mean Corpuscular Volume 82 fL (79-100) Mean Corpuscular Hemoglobin 26 pg (25-35) Mean Corpuscular Hemoglobin Concent 31 g/dL (31-37) Red Cell Distribution Width 18.7 % (11.5-14.5) Platelet Count 402 x10^3/uL (140-400) Sodium Level 142 mmol/L (136-145) Potassium Level 3.9 mmol/L (3.5-5.1) Chloride Level 104 mmol/L (98-107) Carbon Dioxide Level 33 mmol/L (21-32) Anion Gap 5 (6-14) Blood Urea Nitrogen 25 mg/dL (7-20) Creatinine 1.1 mg/dL (0.6-1.0) Estimated GFR (Cockcroft-Gault) 58.3 BUN/Creatinine Ratio 23 (6-20) Glucose Level 128 mg/dL (70-99) Calcium Level 9.5 mg/dL (8.5-10.1) Total Bilirubin 0.3 mg/dL (0.2-1.0) Aspartate Amino Transf (AST/SGOT) 17 U/L (15-37) Alanine Aminotransferase (ALT/SGPT) 18 U/L (14-59) Alkaline Phosphatase 76 U/L (46-116) Total Protein 8.0 g/dL (6.4-8.2) Albumin 2.4 g/dL (3.4-5.0) Albumin/Globulin Ratio 0.4 (1.0-1.7) Medications Active Scripts Medications Dose Route/Sig Max Daily Dose Days Date Category Gabapentin 300 Mg Capsule 300 Mg PO TID 30 02/18/18 Rx Culturelle (Lactobacillus Rhamnosus Gg) 1 Each Cap.sprink 1 Cap PO BID 30 07/07/17 Rx Diovan (Valsartan) 160 Mg Tablet 160 Mg PEG DAILY 03/11/17 Reported Pantoprazole Sodium 40 Mg Tablet.dr 40 Mg PEG BID 03/11/17 Reported Donepezil Hcl 5 Mg Tablet 5 Mg PEG BID 03/11/17 Reported Reglan (Metoclopramide Hcl) 10 Mg Tablet 5 Mg PO QIDAFTMEAL 03/11/17 Reported Atenolol-Chlorthal 50-25 Tb (Atenolol/Chlorthalidone) 1 Each Tablet 1 Tab PEG DAILY 03/11/17 Reported Cyproheptadine Hcl 2 Mg/5 Ml Syrup 2 Mg PEG BID 03/11/17 Reported Percocet 7.5-325 Mg Tablet (Oxycodone/Acetaminophen) 1 Each Tablet 1 Tab PO QID PRN 03/11/17 Reported Proair Hfa Inhaler (Albuterol Sulfate) 8.5 Gm Hfa.aer.ad 2 Puff IH PRN Q4-6HRS 08/16/15 Reported FENTANYL 50mcg/hr (Fentanyl) 1 Each Patch.td72 1 Patch TP Q3DAYS 06/19/14 Reported Ondansetron Odt (Ondansetron) 4 Mg Tab.rapdis 4 Mg PEG QIDPRN PRN 06/19/14 Reported Impression . IMPRESSION: 1. Acute on chronic respiratory failure secondary to severe, recurrent tracheobronchitis and suspected left lung pneumonia. This is a patient who had pneumonias with multiple organisms including MRSA and multi-resistant pseudomonas pneumonia recently in March. . 2. History of chronic respiratory failure with chronic tracheostomy. 3. History of laryngeal carcinoma and history of left lung cancer, status post radiation. 4. Leukocytosis. 5. Chronic dysphagia. Plan . RECOMMENDATIONS: 1. Continue with present Trach care with p.r.n. aggressive suction. 2. no need for bronchoscopy now. 3. antibiotics per ID. has history of multi-resistant pseudomonas pneumonia and MRSA. 4. Aggressive bronchodilators. ICS 5. Pulmonary toilet. 6. Lovenox, Prevacid for prophylaxis discussed w SUZANNE Gallagher MD May 02, 2018 09:29
[2018-05-02 10:49] VITALS: BP 162/64
--- NOTE | 2018-05-02 11:34 | PDOC ---
Infectious Disease Note Subjective Subjective Feeling better today Fever Tmax 101.7 last evening Denies SOA/CP Denies N/V/D ROS ROS per HPI Vital Sign Vital Signs Vital Signs Date Time Temp Pulse Resp B/P (MAP) Pulse Ox O2 Delivery O2 Flow Rate FiO2 05/02/18 10:49 97.9 98 18 162/64 (96) 92 Tracheal Collar 97.9 05/02/18 08:00 10.0 Physical Exam PHYSICAL EXAM GENERAL: Propped up in bed, weak appearing NECK: Tracheostomy in place, LUNGS: Decreased breath sounds. HEART: S1, S2 regular. ABDOMEN: Soft, nontender, PEG EXTREMITIES: No edema or cyanosis. 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: Arouses easily to name, nods to questions Port Labs Lab Laboratory Tests Test 05/02/18 05:25 White Blood Count 11.1 x10^3/uL (4.0-11.0) Red Blood Count 3.82 x10^6/uL (3.50-5.40) Hemoglobin 9.8 g/dL (12.0-15.5) Hematocrit 31.4 % (36.0-47.0) Mean Corpuscular Volume 82 fL (79-100) Mean Corpuscular Hemoglobin 26 pg (25-35) Mean Corpuscular Hemoglobin Concent 31 g/dL (31-37) Red Cell Distribution Width 18.7 % (11.5-14.5) Platelet Count 402 x10^3/uL (140-400) Sodium Level 142 mmol/L (136-145) Potassium Level 3.9 mmol/L (3.5-5.1) Chloride Level 104 mmol/L (98-107) Carbon Dioxide Level 33 mmol/L (21-32) Anion Gap 5 (6-14) Blood Urea Nitrogen 25 mg/dL (7-20) Creatinine 1.1 mg/dL (0.6-1.0) Estimated GFR (Cockcroft-Gault) 58.3 BUN/Creatinine Ratio 23 (6-20) Glucose Level 128 mg/dL (70-99) Calcium Level 9.5 mg/dL (8.5-10.1) Total Bilirubin 0.3 mg/dL (0.2-1.0) Aspartate Amino Transf (AST/SGOT) 17 U/L (15-37) Alanine Aminotransferase (ALT/SGPT) 18 U/L (14-59) Alkaline Phosphatase 76 U/L (46-116) Total Protein 8.0 g/dL (6.4-8.2) Albumin 2.4 g/dL (3.4-5.0) Albumin/Globulin Ratio 0.4 (1.0-1.7) Micro URINE CULTURE RES 1 Final Comment Mixed urogenital jewell 10,000-25,000 colony forming units per mL THIS IS AN UPDATED REPORT BLOOD CULTURE Preliminary NO GROWTH AFTER 2 DAY Objective Assessment Pneumonia with multidrug-resistant organism in the past. Chronic respiratory failure. Leukocytosis - trending down History of lung cancer. History of laryngeal cancer. Normal jewell in urine from 04/29. Previous reported GNR. UA neg. Plan Plan of Care Zerbaxa Sputum culture pending Supportive care Patient seen and examined. Chart reviewed in detail. Case discussed with OPTICIAN MANAGER. Agree with above plan. RAISA VILLAR APRN May 02, 2018 11:34 EMBER MADDEN MD May 02, 2018 21:27
[2018-05-02] MEDS: oxyCODONE/APAP 7.5/325 1 TAB TABLET PEG PRN ×2 (14:33→21:11)
[2018-05-02 15:00] VITALS: BP 124/64
--- NOTE | 2018-05-02 15:03 | PDOC ---
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 14.History of lung cancer. 15.History of laryngeal cancer. 16.GNR in urine from 04/29. UA neg History of Present Illness History of Present Illness continue ABx Lovenox for DVT prophylaxis Nutrition consult for tube feeds and PCM severe DuoNeb's Cough medicine Supportive meds Full code PT OT when able slight improvement Vitals Vitals Vital Signs Date Time Temp Pulse Resp B/P (MAP) Pulse Ox O2 Delivery O2 Flow Rate FiO2 05/02/18 14:33 96 10.0 05/02/18 10:49 97.9 98 18 162/64 (96) Tracheal Collar 97.9 Physical Exam Physical Exam GENERAL: Propped up in bed, weak appearing NECK: Tracheostomy in place, LUNGS: Decreased breath sounds. HEART: S1, S2 regular. ABDOMEN: Soft, nontender, PEG EXTREMITIES: No edema or cyanosis. SKIN: without rash PROJECT MANAGEMENT SPECIALIST: Arouses easily to name, nods to questions Port General: Alert, No acute distress Heart: Regular rate, Normal S1, No murmurs Lungs: Crackles Abdomen: Normal bowel sounds, Soft, No tenderness, No hepatosplenomegaly, No masses, Other (PEG) Extremities: No clubbing, No cyanosis, No edema, Normal pulses, No tenderness/ swelling Skin: Other (Minimal subcutaneous tissue, senile skin turgor) Labs LABS Laboratory Tests Test 05/02/18 05:25 White Blood Count 11.1 x10^3/uL (4.0-11.0) Red Blood Count 3.82 x10^6/uL (3.50-5.40) Hemoglobin 9.8 g/dL (12.0-15.5) Hematocrit 31.4 % (36.0-47.0) Mean Corpuscular Volume 82 fL (79-100) Mean Corpuscular Hemoglobin 26 pg (25-35) Mean Corpuscular Hemoglobin Concent 31 g/dL (31-37) Red Cell Distribution Width 18.7 % (11.5-14.5) Platelet Count 402 x10^3/uL (140-400) Sodium Level 142 mmol/L (136-145) Potassium Level 3.9 mmol/L (3.5-5.1) Chloride Level 104 mmol/L (98-107) Carbon Dioxide Level 33 mmol/L (21-32) Anion Gap 5 (6-14) Blood Urea Nitrogen 25 mg/dL (7-20) Creatinine 1.1 mg/dL (0.6-1.0) Estimated GFR (Cockcroft-Gault) 58.3 BUN/Creatinine Ratio 23 (6-20) Glucose Level 128 mg/dL (70-99) Calcium Level 9.5 mg/dL (8.5-10.1) Total Bilirubin 0.3 mg/dL (0.2-1.0) Aspartate Amino Transf (AST/SGOT) 17 U/L (15-37) Alanine Aminotransferase (ALT/SGPT) 18 U/L (14-59) Alkaline Phosphatase 76 U/L (46-116) Total Protein 8.0 g/dL (6.4-8.2) Albumin 2.4 g/dL (3.4-5.0) Albumin/Globulin Ratio 0.4 (1.0-1.7) Assessment and Plan Assessmemt and Plan Problems Medical Problems: (1) Chronic respiratory failure Status: Acute (2) Dyspnea Status: Acute Comment Review of Relevant I have reviewed the following items miko (where applicable) has been applied. Labs Laboratory Tests Test 05/02/18 05:25 White Blood Count 11.1 x10^3/uL (4.0-11.0) Red Blood Count 3.82 x10^6/uL (3.50-5.40) Hemoglobin 9.8 g/dL (12.0-15.5) Hematocrit 31.4 % (36.0-47.0) Mean Corpuscular Volume 82 fL (79-100) Mean Corpuscular Hemoglobin 26 pg (25-35) Mean Corpuscular Hemoglobin Concent 31 g/dL (31-37) Red Cell Distribution Width 18.7 % (11.5-14.5) Platelet Count 402 x10^3/uL (140-400) Sodium Level 142 mmol/L (136-145) Potassium Level 3.9 mmol/L (3.5-5.1) Chloride Level 104 mmol/L (98-107) Carbon Dioxide Level 33 mmol/L (21-32) Anion Gap 5 (6-14) Blood Urea Nitrogen 25 mg/dL (7-20) Creatinine 1.1 mg/dL (0.6-1.0) Estimated GFR (Cockcroft-Gault) 58.3 BUN/Creatinine Ratio 23 (6-20) Glucose Level 128 mg/dL (70-99) Calcium Level 9.5 mg/dL (8.5-10.1) Total Bilirubin 0.3 mg/dL (0.2-1.0) Aspartate Amino Transf (AST/SGOT) 17 U/L (15-37) Alanine Aminotransferase (ALT/SGPT) 18 U/L (14-59) Alkaline Phosphatase 76 U/L (46-116) Total Protein 8.0 g/dL (6.4-8.2) Albumin 2.4 g/dL (3.4-5.0) Albumin/Globulin Ratio 0.4 (1.0-1.7) Laboratory Tests Test 05/02/18 05:25 White Blood Count 11.1 x10^3/uL (4.0-11.0) Red Blood Count 3.82 x10^6/uL (3.50-5.40) Hemoglobin 9.8 g/dL (12.0-15.5) Hematocrit 31.4 % (36.0-47.0) Mean Corpuscular Volume 82 fL (79-100) Mean Corpuscular Hemoglobin 26 pg (25-35) Mean Corpuscular Hemoglobin Concent 31 g/dL (31-37) Red Cell Distribution Width 18.7 % (11.5-14.5) Platelet Count 402 x10^3/uL (140-400) Sodium Level 142 mmol/L (136-145) Potassium Level 3.9 mmol/L (3.5-5.1) Chloride Level 104 mmol/L (98-107) Carbon Dioxide Level 33 mmol/L (21-32) Anion Gap 5 (6-14) Blood Urea Nitrogen 25 mg/dL (7-20) Creatinine 1.1 mg/dL (0.6-1.0) Estimated GFR (Cockcroft-Gault) 58.3 BUN/Creatinine Ratio 23 (6-20) Glucose Level 128 mg/dL (70-99) Calcium Level 9.5 mg/dL (8.5-10.1) Total Bilirubin 0.3 mg/dL (0.2-1.0) Aspartate Amino Transf (AST/SGOT) 17 U/L (15-37) Alanine Aminotransferase (ALT/SGPT) 18 U/L (14-59) Alkaline Phosphatase 76 U/L (46-116) Total Protein 8.0 g/dL (6.4-8.2) Albumin 2.4 g/dL (3.4-5.0) Albumin/Globulin Ratio 0.4 (1.0-1.7) Microbiology 04/29/18 Blood Culture - Preliminary, Resulted NO GROWTH AFTER 2 DAYS 04/29/18 Urine Culture - Final, Complete 04/29/18 Urine Culture Result 1 (VANITA) - Final, Complete Medications Current Medications Albuterol/ Ipratropium (Duoneb) 3 ml 1X ONCE NEB Last administered on at 17:56; Start 04/29/18 at 17:45; Stop 04/29/18 at 17:46; Status DC Piperacillin Sod/ Tazobactam Sod (Zosyn Per Pharmacy) 1 each PRN DAILY PRN MC SEE COMMENTS; Start 04/29/18 at 19:30; Stop 05/01/18 at 14:22; Status DC Vancomycin HCl (Vanco Per Pharmacy) 1 each PRN DAILY PRN MC SEE COMMENTS Last administered on 04/30/18at 01:00; Start 04/29/18 at 19:30; Stop 04/30/18 at 12:28 ; Status DC Piperacillin Sod/ Tazobactam Sod 4.5 gm/Sodium Chloride 100 ml @ 200 mls/hr 1X ONCE IV Last administered on 04/29/18at 19:56; Start 04/29/18 at 19:45; Stop 04/29/18 at 20:14; Status DC Vancomycin HCl 1.25 gm/Sodium Chloride 250 ml @ 167 mls/hr ONCE ONCE IV Last administered on 04/29/18at 19:56; Start 04/29/18 at 20:00; Stop 04/29/18 at 21:29 ; Status DC Oxycodone/ Acetaminophen (Percocet 7.5/ 325) 1 tab 1X ONCE PO Last administered on 04/29/18at 21:44; Start 04/29/18 at 21:15; Stop 04/29/18 at 21:16 ; Status DC Piperacillin Sod/ Tazobactam Sod 2.25 gm/Sodium Chloride 50 ml @ 100 mls/hr Q6HRS IV Last administered on 04/30/18at 11:44; Start 04/30/18 at 06:00; Stop at 12:12; Status DC Vancomycin HCl 1 gm/Sodium Chloride 250 ml @ 250 mls/hr Q24H IV ; Start at 20:00; Stop 04/30/18 at 20:00; Status DC Vancomycin HCl (Vancomycin Trough Level) 1 each 1X ONCE MC ; Start 05/01/18 at 19:30; Stop 05/01/18 at 19:30; Status DC Lactobacillus Rhamnosus (Culturelle) 1 cap BID PO ; Start 04/30/18 at 09:00; Status Cancel Acetaminophen (Tylenol) 650 mg PRN Q6HRS PRN PEG MILD PAIN / TEMP; Start at 08:45 Ondansetron HCl (Zofran) 4 mg PRN Q6HRS PRN IV NAUSEA/VOMITING Last administered on 05/01/18at 10:42; Start 04/30/18 at 08:45 Ondansetron HCl (Zofran Odt) 4 mg PRN Q6HRS PRN PO NAUSEA/VOMITING; Start 04/30 at 08:45; Status Cancel Fentanyl (Duragesic 50mcg/ Hr Patch) 1 patch Q3DAYS TD Last administered on at 10:27; Start 04/30/18 at 10:00 Lactobacillus Rhamnosus (Culturelle) 1 cap BID PO Last administered on at 08:38; Start 04/30/18 at 10:00 Metoclopramide HCl (Reglan) 5 mg QIDAFTMEAL PO ; Start 04/30/18 at 09:45; Stop 04/30/18 at 09:47; Status DC Ondansetron HCl (Zofran Odt) 4 mg QIDPRN PRN PEG NAUSEA/VOMITING; Start at 08:45 Oxycodone/ Acetaminophen (Percocet 7.5/ 325) 1 tab PRN QID PRN PO MODERATE TO SEVERE PAIN; Start 04/30/18 at 08:45; Stop 04/30/18 at 09:49; Status DC Pantoprazole Sodium (Protonix) 40 mg BIDAC PO ; Start 04/30/18 at 09:45; Stop at 09:52; Status DC Non-Formulary Medication (Albuterol Sulfate (Proair Hfa Inhaler)) 2 puff PRN Q4- 6HRS IH ; Start 04/30/18 at 08:45; Status UNV Atenolol (Tenormin) 50 mg DAILY PEG Last administered on 05/02/18at 08:37; Start 04/30/18 at 10:00 Cyproheptadine HCl (Periactin) 2 mg BID PO ; Start 04/30/18 at 09:45; Stop 04/30 at 09:48; Status DC Donepezil HCl (Aricept) 5 mg BID PEG Last administered on 05/02/18at 08:38; Start 05/01/18 at 10:00 Gabapentin (Neurontin) 300 mg TID PO Last administered on 05/02/18 14:25; Start 04/30/18 at 10:00 Losartan Potassium (Cozaar) 100 mg DAILY PEG Last administered on 05/02/18at 08: 38; Start 05/01/18 at 09:00 Enoxaparin Sodium (Lovenox 40mg Syringe) 40 mg Q24H SQ Last administered on 08:39; Start 04/30/18 at 10:00 Morphine Sulfate (Morphine Sulfate) 1 mg PRN Q2HR PRN IV PAIN Last administered on 05/02/18at 01:51; Start 04/30/18 at 08:45 Albuterol/ Ipratropium (Duoneb) 3 ml RTQID NEB Last administered on 05/02/18at 11:43; Start 04/30/18 at 12:00 Guaifenesin (Robitussin Dm) 10 ml PRN Q6HRS PRN PO COUGH; Start 04/30/18 at 08: 45; Stop 04/30/18 at 09:48; Status DC Metoclopramide HCl (Reglan Oral Solution) 5 mg QIDAFTMEAL PEG Last administered on 05/02/18at 14:25; Start 04/30/18 at 09:47 Cyproheptadine HCl (Periactin) 2 mg BID PEG Last administered on 05/02/18at 08: 38; Start 04/30/18 at 09:48 Guaifenesin (Robitussin Dm) 10 ml PRN Q6HRS PRN PEG COUGH; Start 04/30/18 at 09 :48 Oxycodone/ Acetaminophen (Percocet 7.5/ 325) 1 tab PRN QID PRN PEG MODERATE TO SEVERE PAIN Last administered on 05/02/18at 14:33; Start 04/30/18 at 09:49 Lansoprazole (Prevacid) 30 mg BIDAC PEG Last administered on 05/02/18at 14:25; Start 04/30/18 at 10:00 Chlorthalidone (Thalitone) 25 mg DAILY PEG Last administered on 05/02/18at 08:37 ; Start 04/30/18 at 10:00 Albuterol Sulfate (Ventolin Neb Soln) 2.5 mg PRN Q4HRS PRN NEB SHORTNESS OF BREATH; Start 04/30/18 at 10:00 Scopolamine (Transderm-Scop) 1 patch Q3DAYS TD Last administered on 04/30/18at 10:47; Start 04/30/18 at 11:00 Scopolamine (Transderm-Scop) 1 patch 1X ONCE TD ; Start 04/30/18 at 10:15; Stop 04/30/18 at 10:16; Status UNV Ceftolozane/ Tazobactam 1500 mg/Sodium Chloride 100 ml @ 100 mls/hr Q8HRS IV Last administered on 05/02/18at 14:25; Start 04/30/18 at 14:00 Budesonide (Pulmicort) 0.5 mg RTBID NEB Last administered on 05/02/18at 07:15; Start 05/01/18 at 10:30 Active Scripts Active Gabapentin 300 Mg Capsule 300 Mg PO TID 30 Days Culturelle (Lactobacillus Rhamnosus Gg) 1 Each Cap.sprink 1 Cap PO BID 30 Days Reported Diovan (Valsartan) 160 Mg Tablet 160 Mg PEG DAILY Pantoprazole Sodium 40 Mg Tablet.dr 40 Mg PEG BID Donepezil Hcl 5 Mg Tablet 5 Mg PEG BID Reglan (Metoclopramide Hcl) 10 Mg Tablet 5 Mg PO QIDAFTMEAL Atenolol-Chlorthal 50-25 Tb (Atenolol/Chlorthalidone) 1 Each Tablet 1 Tab PEG DAILY Cyproheptadine Hcl 2 Mg/5 Ml Syrup 2 Mg PEG BID Percocet 7.5-325 Mg Tablet (Oxycodone/Acetaminophen) 1 Each Tablet 1 Tab PO QID PRN Proair Hfa Inhaler (Albuterol Sulfate) 8.5 Gm Hfa.aer.ad 2 Puff IH PRN Q4-6HRS FENTANYL 50mcg/hr (Fentanyl) 1 Each Patch.td72 1 Patch TP Q3DAYS Ondansetron Odt (Ondansetron) 4 Mg Tab.rapdis 4 Mg PEG QIDPRN PRN Vitals/I & O Vital Sign - Last 24 Hours 05/01/18 05/01/18 05/01/18 05/01/18 15:36 19:00 20:00 20:05 Temp 98.7 98.7 Pulse 83 Resp 17 B/P (MAP) 108/58 (75) Pulse Ox 100 91 O2 Delivery Tracheal Collar Trach Collar Tracheal Collar O2 Flow Rate 10.0 10.0 05/01/18 05/01/18 05/01/18 05/01/18 20:30 20:32 21:00 23:28 Temp 101.7 98.3 101.7 98.3 Pulse 92 Resp 17 B/P (MAP) 107/62 (77) Pulse Ox 94 94 91 O2 Delivery Tracheal Collar O2 Flow Rate 10.0 10.0 05/02/18 05/02/18 05/02/18 05/02/18 01:51 02:30 03:00 07:00 Temp 98.7 97.8 98.7 97.8 Pulse 81 98 Resp 18 18 18 B/P (MAP) 136/73 (94) 165/69 (101) Pulse Ox 91 91 96 93 O2 Delivery Tracheal Collar Tracheal Collar Tracheal Collar O2 Flow Rate 10.0 10.0 05/02/18 05/02/18 05/02/18 05/02/18 07:17 08:00 08:37 08:38 Pulse 81 81 B/P (MAP) 136/73 136/73 Pulse Ox 96 O2 Delivery Trach Collar O2 Flow Rate 10.0 10.0 05/02/18 05/02/18 05/02/18 10:49 11:45 14:33 Temp 97.9 97.9 Pulse 98 Resp 18 B/P (MAP) 162/64 (96) Pulse Ox 92 96 96 O2 Delivery Tracheal Collar O2 Flow Rate 10.0 10.0 Intake and Output 05/01/18 05/01/18 05/02/18 15:01 23:01 07:01 Intake Total 560 ml 1810 ml 320 ml Output Total 0 ml Balance 560 ml 1810 ml 320 ml Nutrition Consultation Dietary Evaluation: Comments: continue bolus TF via PEG Expected Outcomes/Goals: wt maintanence Malnutrition Findings: Body Fat Depletion (Non Severe: Mild Depletion Weight Status: Underweight HELEN DICKSON MD May 02, 2018 15:03
[2018-05-02 19:00] VITALS: BP 132/69
[2018-05-02 23:00] VITALS: BP 113/62
[2018-05-03 03:00] VITALS: BP 147/77
[2018-05-03] MEDS: METOCLOPRAMIDE ORAL SOLN 10 MG/10 ML SOLUTION. PEG SCH ×4 (04:12→21:42)
[2018-05-03 04:39] LABS: HEMATOCRIT 34.4 % (36.0-47.0); HEMOGLOBIN 10.7 g/dL (12.0-15.5); RED BLOOD COUNT 4.2 x10^6/uL (3.50-5.40); RED CELL DISTRIBUTION WIDTH 18.3 % (11.5-14.5)
[2018-05-03] MEDS: CEFTOLOZANE/TAZOBACTAM 1,500 MG in IV NORMAL SALINE 100ML 100 ML IV SCH ×3 (05:47→23:18)
[2018-05-03 05:50] LABS: ALBUMIN 2.6 g/dL (3.4-5.0); ALBUMIN/GLOBULIN RATIO 0.4 (1.0-1.7); CALCIUM 9.5 mg/dL (8.5-10.1); CREATININE 0.9 mg/dL (0.6-1.0); GFR 73.5; TOTAL BILIRUBIN 0.5 mg/dL (0.2-1.0); TOTAL PROTEIN 8.7 g/dL (6.4-8.2)
[2018-05-03 07:00] VITALS: BP 152/76
[2018-05-03] MEDS: LACTOBACILLUS RHAMNOSUS GG 1 CAPSULE. PO SCH ×2 (08:33→21:42)
[2018-05-03] MEDS: ATENOLOL 50 MG TABLET. PEG SCH (08:34)
[2018-05-03] MEDS: LANSOPRAZOLE 30 MG TAB.RAP.DR PEG SCH ×2 (08:34→21:02)
[2018-05-03] MEDS: LOSARTAN POTASSIUM 50 MG TABLET. PEG SCH (08:34)
[2018-05-03] MEDS: GABAPENTIN 300 MG CAPSULE. PO SCH ×3 (08:35→21:42)
[2018-05-03] MEDS: CHLORTHALIDONE 25 MG TABLET. PEG SCH (08:35)
[2018-05-03] MEDS: DONEPEZIL HCL 5 MG TABLET. PEG SCH ×2 (08:35→21:42)
[2018-05-03] MEDS: ENOXAPARIN 40 MG/0.4 ML SYRINGE. SQ SCH (08:35)
[2018-05-03] MEDS: CYPROHEPTADINE 4 MG TABLET. PEG SCH ×2 (08:36→21:00)
[2018-05-03] MEDS: SCOPOLAMINE 1.5MG PATCH. TD SCH (08:41)
[2018-05-03] MEDS: BUDESONIDE 0.5 MG/2 ML NEBU. NEB SCH ×2 (08:42→19:54)
[2018-05-03] MEDS: fentaNYL 50MCG/HR PATCH 1 PATCH PATCH.TD72 TD SCH (08:42)
[2018-05-03] MEDS: IPRATRPIUM/ALBUTEROL 0.5/2.5MG 3 ML NEBU. NEB SCH ×4 (08:42→19:54)
--- NOTE | 2018-05-03 10:08 | PDOC ---
PULMONARY PROGRESS NOTES Subjective trach, sob, cough better, no pain Vitals Vital Signs Date Time Temp Pulse Resp B/P (MAP) Pulse Ox O2 Delivery O2 Flow Rate FiO2 05/03/18 08:48 97 10.0 05/03/18 08:42 18 Tracheal Collar 05/03/18 08:34 82 152/76 05/03/18 07:00 97.8 97.8 ROS: No Nausea, No Chest Pain General: Alert, No acute distress HEENT: Other (nc at perrl. nose throat clear. trach site ok) Lungs: Other (decrease bs) Cardiovascular: S1, S2 Abdomen: Soft, Non-tender Neuro Exam: Alert Extremities: No Edema Skin: Warm Labs Laboratory Tests Test 05/02/18 05:25 05/03/18 04:30 White Blood Count 11.1 x10^3/uL (4.0-11.0) 15.0 x10^3/uL (4.0-11.0) Red Blood Count 3.82 x10^6/uL (3.50-5.40) 4.20 x10^6/uL (3.50-5.40) Hemoglobin 9.8 g/dL (12.0-15.5) 10.7 g/dL (12.0-15.5) Hematocrit 31.4 % (36.0-47.0) 34.4 % (36.0-47.0) Mean Corpuscular Volume 82 fL (79-100) 82 fL (79-100) Mean Corpuscular Hemoglobin 26 pg (25-35) 25 pg (25-35) Mean Corpuscular Hemoglobin Concent 31 g/dL (31-37) 31 g/dL (31-37) Red Cell Distribution Width 18.7 % (11.5-14.5) 18.3 % (11.5-14.5) Platelet Count 402 x10^3/uL (140-400) 438 x10^3/uL (140-400) Sodium Level 142 mmol/L (136-145) 138 mmol/L (136-145) Potassium Level 3.9 mmol/L (3.5-5.1) 4.0 mmol/L (3.5-5.1) Chloride Level 104 mmol/L (98-107) 102 mmol/L (98-107) Carbon Dioxide Level 33 mmol/L (21-32) 31 mmol/L (21-32) Anion Gap 5 (6-14) 5 (6-14) Blood Urea Nitrogen 25 mg/dL (7-20) 17 mg/dL (7-20) Creatinine 1.1 mg/dL (0.6-1.0) 0.9 mg/dL (0.6-1.0) Estimated GFR (Cockcroft-Gault) 58.3 73.5 BUN/Creatinine Ratio 23 (6-20) 19 (6-20) Glucose Level 128 mg/dL (70-99) 171 mg/dL (70-99) Calcium Level 9.5 mg/dL (8.5-10.1) 9.5 mg/dL (8.5-10.1) Total Bilirubin 0.3 mg/dL (0.2-1.0) 0.5 mg/dL (0.2-1.0) Aspartate Amino Transf (AST/SGOT) 17 U/L (15-37) 17 U/L (15-37) Alanine Aminotransferase (ALT/SGPT) 18 U/L (14-59) 6 U/L (14-59) Alkaline Phosphatase 76 U/L (46-116) 80 U/L (46-116) Total Protein 8.0 g/dL (6.4-8.2) 8.7 g/dL (6.4-8.2) Albumin 2.4 g/dL (3.4-5.0) 2.6 g/dL (3.4-5.0) Albumin/Globulin Ratio 0.4 (1.0-1.7) 0.4 (1.0-1.7) Laboratory Tests Test 05/03/18 04:30 White Blood Count 15.0 x10^3/uL (4.0-11.0) Red Blood Count 4.20 x10^6/uL (3.50-5.40) Hemoglobin 10.7 g/dL (12.0-15.5) Hematocrit 34.4 % (36.0-47.0) Mean Corpuscular Volume 82 fL (79-100) Mean Corpuscular Hemoglobin 25 pg (25-35) Mean Corpuscular Hemoglobin Concent 31 g/dL (31-37) Red Cell Distribution Width 18.3 % (11.5-14.5) Platelet Count 438 x10^3/uL (140-400) Sodium Level 138 mmol/L (136-145) Potassium Level 4.0 mmol/L (3.5-5.1) Chloride Level 102 mmol/L (98-107) Carbon Dioxide Level 31 mmol/L (21-32) Anion Gap 5 (6-14) Blood Urea Nitrogen 17 mg/dL (7-20) Creatinine 0.9 mg/dL (0.6-1.0) Estimated GFR (Cockcroft-Gault) 73.5 BUN/Creatinine Ratio 19 (6-20) Glucose Level 171 mg/dL (70-99) Calcium Level 9.5 mg/dL (8.5-10.1) Total Bilirubin 0.5 mg/dL (0.2-1.0) Aspartate Amino Transf (AST/SGOT) 17 U/L (15-37) Alanine Aminotransferase (ALT/SGPT) 6 U/L (14-59) Alkaline Phosphatase 80 U/L (46-116) Total Protein 8.7 g/dL (6.4-8.2) Albumin 2.6 g/dL (3.4-5.0) Albumin/Globulin Ratio 0.4 (1.0-1.7) Medications Active Scripts Medications Dose Route/Sig Max Daily Dose Days Date Category Gabapentin 300 Mg Capsule 300 Mg PO TID 30 02/18/18 Rx Culturelle (Lactobacillus Rhamnosus Gg) 1 Each Cap.sprink 1 Cap PO BID 30 07/07/17 Rx Diovan (Valsartan) 160 Mg Tablet 160 Mg PEG DAILY 03/11/17 Reported Pantoprazole Sodium 40 Mg Tablet.dr 40 Mg PEG BID 03/11/17 Reported Donepezil Hcl 5 Mg Tablet 5 Mg PEG BID 03/11/17 Reported Reglan (Metoclopramide Hcl) 10 Mg Tablet 5 Mg PO QIDAFTMEAL 03/11/17 Reported Atenolol-Chlorthal 50-25 Tb (Atenolol/Chlorthalidone) 1 Each Tablet 1 Tab PEG DAILY 03/11/17 Reported Cyproheptadine Hcl 2 Mg/5 Ml Syrup 2 Mg PEG BID 03/11/17 Reported Percocet 7.5-325 Mg Tablet (Oxycodone/Acetaminophen) 1 Each Tablet 1 Tab PO QID PRN 03/11/17 Reported Proair Hfa Inhaler (Albuterol Sulfate) 8.5 Gm Hfa.aer.ad 2 Puff IH PRN Q4-6HRS 08/16/15 Reported FENTANYL 50mcg/hr (Fentanyl) 1 Each Patch.td72 1 Patch TP Q3DAYS 06/19/14 Reported Ondansetron Odt (Ondansetron) 4 Mg Tab.rapdis 4 Mg PEG QIDPRN PRN 06/19/14 Reported Impression . IMPRESSION: 1. Acute on chronic respiratory failure secondary to severe, recurrent tracheobronchitis and suspected left lung pneumonia. This is a patient who had pneumonias with multiple organisms including MRSA and multi-resistant pseudomonas pneumonia recently in March. . 2. History of chronic respiratory failure with chronic tracheostomy. 3. History of laryngeal carcinoma and history of left lung cancer, status post radiation. 4. Leukocytosis. 5. Chronic dysphagia. Plan . RECOMMENDATIONS: 1. Continue with present Trach care with p.r.n. aggressive suction. 2. no need for bronchoscopy now. 3. antibiotics per ID. has history of multi-resistant pseudomonas pneumonia and MRSA. Gram neg rods on sputum now 4. Aggressive bronchodilators. ICS 5. Pulmonary toilet. 6. Lovenox, Prevacid for prophylaxis discussed w pt MARY LANIER MD May 03, 2018 10:08
--- NOTE | 2018-05-03 10:21 | PDOC ---
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 14.History of lung cancer. 15.History of laryngeal cancer. 16.GNR in urine from 04/29. UA neg History of Present Illness History of Present Illness continue ABx Lovenox for DVT prophylaxis Nutrition consult for tube feeds and PCM severe DuoNeb's Cough medicine Supportive meds Full code PT OT when able slight improvement Vitals Vitals Vital Signs Date Time Temp Pulse Resp B/P (MAP) Pulse Ox O2 Delivery O2 Flow Rate FiO2 05/03/18 08:48 97 10.0 05/03/18 08:42 18 Tracheal Collar 05/03/18 08:34 82 152/76 05/03/18 07:00 97.8 97.8 Physical Exam Physical Exam GENERAL: Propped up in bed, weak appearing NECK: Tracheostomy in place, LUNGS: Decreased breath sounds. HEART: S1, S2 regular. ABDOMEN: Soft, nontender, PEG EXTREMITIES: No edema or cyanosis. 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 Port General: Alert, Cooperative, No acute distress Heart: Regular rate, Normal S1, No murmurs Lungs: Crackles, Other (decrease bs) Abdomen: Normal bowel sounds, Soft, No tenderness, No hepatosplenomegaly, No masses, Other (PEG) Extremities: No clubbing, No cyanosis, No edema, Normal pulses, No tenderness/ swelling Skin: Other (Minimal subcutaneous tissue, senile skin turgor) Labs LABS Laboratory Tests Test 05/03/18 04:30 White Blood Count 15.0 x10^3/uL (4.0-11.0) Red Blood Count 4.20 x10^6/uL (3.50-5.40) Hemoglobin 10.7 g/dL (12.0-15.5) Hematocrit 34.4 % (36.0-47.0) Mean Corpuscular Volume 82 fL (79-100) Mean Corpuscular Hemoglobin 25 pg (25-35) Mean Corpuscular Hemoglobin Concent 31 g/dL (31-37) Red Cell Distribution Width 18.3 % (11.5-14.5) Platelet Count 438 x10^3/uL (140-400) Sodium Level 138 mmol/L (136-145) Potassium Level 4.0 mmol/L (3.5-5.1) Chloride Level 102 mmol/L (98-107) Carbon Dioxide Level 31 mmol/L (21-32) Anion Gap 5 (6-14) Blood Urea Nitrogen 17 mg/dL (7-20) Creatinine 0.9 mg/dL (0.6-1.0) Estimated GFR (Cockcroft-Gault) 73.5 BUN/Creatinine Ratio 19 (6-20) Glucose Level 171 mg/dL (70-99) Calcium Level 9.5 mg/dL (8.5-10.1) Total Bilirubin 0.5 mg/dL (0.2-1.0) Aspartate Amino Transf (AST/SGOT) 17 U/L (15-37) Alanine Aminotransferase (ALT/SGPT) 6 U/L (14-59) Alkaline Phosphatase 80 U/L (46-116) Total Protein 8.7 g/dL (6.4-8.2) Albumin 2.6 g/dL (3.4-5.0) Albumin/Globulin Ratio 0.4 (1.0-1.7) Assessment and Plan Assessmemt and Plan Problems Medical Problems: (1) Chronic respiratory failure Status: Acute (2) Dyspnea Status: Acute Comment Review of Relevant I have reviewed the following items miko (where applicable) has been applied. Labs Laboratory Tests Test 05/02/18 05:25 05/03/18 04:30 White Blood Count 11.1 x10^3/uL (4.0-11.0) 15.0 x10^3/uL (4.0-11.0) Red Blood Count 3.82 x10^6/uL (3.50-5.40) 4.20 x10^6/uL (3.50-5.40) Hemoglobin 9.8 g/dL (12.0-15.5) 10.7 g/dL (12.0-15.5) Hematocrit 31.4 % (36.0-47.0) 34.4 % (36.0-47.0) Mean Corpuscular Volume 82 fL (79-100) 82 fL (79-100) Mean Corpuscular Hemoglobin 26 pg (25-35) 25 pg (25-35) Mean Corpuscular Hemoglobin Concent 31 g/dL (31-37) 31 g/dL (31-37) Red Cell Distribution Width 18.7 % (11.5-14.5) 18.3 % (11.5-14.5) Platelet Count 402 x10^3/uL (140-400) 438 x10^3/uL (140-400) Sodium Level 142 mmol/L (136-145) 138 mmol/L (136-145) Potassium Level 3.9 mmol/L (3.5-5.1) 4.0 mmol/L (3.5-5.1) Chloride Level 104 mmol/L (98-107) 102 mmol/L (98-107) Carbon Dioxide Level 33 mmol/L (21-32) 31 mmol/L (21-32) Anion Gap 5 (6-14) 5 (6-14) Blood Urea Nitrogen 25 mg/dL (7-20) 17 mg/dL (7-20) Creatinine 1.1 mg/dL (0.6-1.0) 0.9 mg/dL (0.6-1.0) Estimated GFR (Cockcroft-Gault) 58.3 73.5 BUN/Creatinine Ratio 23 (6-20) 19 (6-20) Glucose Level 128 mg/dL (70-99) 171 mg/dL (70-99) Calcium Level 9.5 mg/dL (8.5-10.1) 9.5 mg/dL (8.5-10.1) Total Bilirubin 0.3 mg/dL (0.2-1.0) 0.5 mg/dL (0.2-1.0) Aspartate Amino Transf (AST/SGOT) 17 U/L (15-37) 17 U/L (15-37) Alanine Aminotransferase (ALT/SGPT) 18 U/L (14-59) 6 U/L (14-59) Alkaline Phosphatase 76 U/L (46-116) 80 U/L (46-116) Total Protein 8.0 g/dL (6.4-8.2) 8.7 g/dL (6.4-8.2) Albumin 2.4 g/dL (3.4-5.0) 2.6 g/dL (3.4-5.0) Albumin/Globulin Ratio 0.4 (1.0-1.7) 0.4 (1.0-1.7) Laboratory Tests Test 05/03/18 04:30 White Blood Count 15.0 x10^3/uL (4.0-11.0) Red Blood Count 4.20 x10^6/uL (3.50-5.40) Hemoglobin 10.7 g/dL (12.0-15.5) Hematocrit 34.4 % (36.0-47.0) Mean Corpuscular Volume 82 fL (79-100) Mean Corpuscular Hemoglobin 25 pg (25-35) Mean Corpuscular Hemoglobin Concent 31 g/dL (31-37) Red Cell Distribution Width 18.3 % (11.5-14.5) Platelet Count 438 x10^3/uL (140-400) Sodium Level 138 mmol/L (136-145) Potassium Level 4.0 mmol/L (3.5-5.1) Chloride Level 102 mmol/L (98-107) Carbon Dioxide Level 31 mmol/L (21-32) Anion Gap 5 (6-14) Blood Urea Nitrogen 17 mg/dL (7-20) Creatinine 0.9 mg/dL (0.6-1.0) Estimated GFR (Cockcroft-Gault) 73.5 BUN/Creatinine Ratio 19 (6-20) Glucose Level 171 mg/dL (70-99) Calcium Level 9.5 mg/dL (8.5-10.1) Total Bilirubin 0.5 mg/dL (0.2-1.0) Aspartate Amino Transf (AST/SGOT) 17 U/L (15-37) Alanine Aminotransferase (ALT/SGPT) 6 U/L (14-59) Alkaline Phosphatase 80 U/L (46-116) Total Protein 8.7 g/dL (6.4-8.2) Albumin 2.6 g/dL (3.4-5.0) Albumin/Globulin Ratio 0.4 (1.0-1.7) Microbiology 04/29/18 Blood Culture - Preliminary, Resulted NO GROWTH AFTER 3 DAYS 04/30/18 - Final, Resulted 04/30/18 - Final, Resulted 04/30/18 - Final, Resulted 04/30/18 Gram Stain Evaluation - Final, Resulted 04/30/18 Sputum Culture, Resulted Pending 04/29/18 Urine Culture - Final, Complete 04/29/18 Urine Culture Result 1 (VANITA) - Final, Complete Medications Current Medications Albuterol/ Ipratropium (Duoneb) 3 ml 1X ONCE NEB Last administered on at 17:56; Start 04/29/18 at 17:45; Stop 04/29/18 at 17:46; Status DC Piperacillin Sod/ Tazobactam Sod (Zosyn Per Pharmacy) 1 each PRN DAILY PRN MC SEE COMMENTS; Start 04/29/18 at 19:30; Stop 05/01/18 at 14:22; Status DC Vancomycin HCl (Vanco Per Pharmacy) 1 each PRN DAILY PRN MC SEE COMMENTS Last administered on 04/30/18at 01:00; Start 04/29/18 at 19:30; Stop 04/30/18 at 12:28 ; Status DC Piperacillin Sod/ Tazobactam Sod 4.5 gm/Sodium Chloride 100 ml @ 200 mls/hr 1X ONCE IV Last administered on 04/29/18at 19:56; Start 04/29/18 at 19:45; Stop 04/29/18 at 20:14; Status DC Vancomycin HCl 1.25 gm/Sodium Chloride 250 ml @ 167 mls/hr ONCE ONCE IV Last administered on 04/29/18at 19:56; Start 04/29/18 at 20:00; Stop 04/29/18 at 21:29 ; Status DC Oxycodone/ Acetaminophen (Percocet 7.5/ 325) 1 tab 1X ONCE PO Last administered on 04/29/18at 21:44; Start 04/29/18 at 21:15; Stop 04/29/18 at 21:16 ; Status DC Piperacillin Sod/ Tazobactam Sod 2.25 gm/Sodium Chloride 50 ml @ 100 mls/hr Q6HRS IV Last administered on 04/30/18at 11:44; Start 04/30/18 at 06:00; Stop at 12:12; Status DC Vancomycin HCl 1 gm/Sodium Chloride 250 ml @ 250 mls/hr Q24H IV ; Start at 20:00; Stop 04/30/18 at 20:00; Status DC Vancomycin HCl (Vancomycin Trough Level) 1 each 1X ONCE MC ; Start 05/01/18 at 19:30; Stop 05/01/18 at 19:30; Status DC Lactobacillus Rhamnosus (Culturelle) 1 cap BID PO ; Start 04/30/18 at 09:00; Status Cancel Acetaminophen (Tylenol) 650 mg PRN Q6HRS PRN PEG MILD PAIN / TEMP; Start at 08:45 Ondansetron HCl (Zofran) 4 mg PRN Q6HRS PRN IV NAUSEA/VOMITING Last administered on 05/01/18at 10:42; Start 04/30/18 at 08:45 Ondansetron HCl (Zofran Odt) 4 mg PRN Q6HRS PRN PO NAUSEA/VOMITING; Start 04/30 at 08:45; Status Cancel Fentanyl (Duragesic 50mcg/ Hr Patch) 1 patch Q3DAYS TD Last administered on at 08:42; Start 04/30/18 at 10:00 Lactobacillus Rhamnosus (Culturelle) 1 cap BID PO Last administered on at 08:33; Start 04/30/18 at 10:00 Metoclopramide HCl (Reglan) 5 mg QIDAFTMEAL PO ; Start 04/30/18 at 09:45; Stop 04/30/18 at 09:47; Status DC Ondansetron HCl (Zofran Odt) 4 mg QIDPRN PRN PEG NAUSEA/VOMITING; Start at 08:45 Oxycodone/ Acetaminophen (Percocet 7.5/ 325) 1 tab PRN QID PRN PO MODERATE TO SEVERE PAIN; Start 04/30/18 at 08:45; Stop 04/30/18 at 09:49; Status DC Pantoprazole Sodium (Protonix) 40 mg BIDAC PO ; Start 04/30/18 at 09:45; Stop at 09:52; Status DC Non-Formulary Medication (Albuterol Sulfate (Proair Hfa Inhaler)) 2 puff PRN Q4- 6HRS IH ; Start 04/30/18 at 08:45; Status UNV Atenolol (Tenormin) 50 mg DAILY PEG Last administered on 05/03/18 08:34; Start 04/30/18 at 10:00 Cyproheptadine HCl (Periactin) 2 mg BID PO ; Start 04/30/18 at 09:45; Stop 04/30 at 09:48; Status DC Donepezil HCl (Aricept) 5 mg BID PEG Last administered on 05/03/18 08:35; Start 05/01/18 at 10:00 Gabapentin (Neurontin) 300 mg TID PO Last administered on 05/03/18 08:35; Start 04/30/18 at 10:00 Losartan Potassium (Cozaar) 100 mg DAILY PEG Last administered on 05/03/18 08: 34; Start 05/01/18 at 09:00 Enoxaparin Sodium (Lovenox 40mg Syringe) 40 mg Q24H SQ Last administered on 08:35; Start 04/30/18 at 10:00 Morphine Sulfate (Morphine Sulfate) 1 mg PRN Q2HR PRN IV PAIN Last administered on 05/02/18at 01:51; Start 04/30/18 at 08:45 Albuterol/ Ipratropium (Duoneb) 3 ml RTQID NEB Last administered on 05/03/18at 08:42; Start 04/30/18 at 12:00 Guaifenesin (Robitussin Dm) 10 ml PRN Q6HRS PRN PO COUGH; Start 04/30/18 at 08: 45; Stop 04/30/18 at 09:48; Status DC Metoclopramide HCl (Reglan Oral Solution) 5 mg QIDAFTMEAL PEG Last administered on 05/02/18at 16:50; Start 04/30/18 at 09:47; Stop 05/02/18 at 17:22 ; Status DC Cyproheptadine HCl (Periactin) 2 mg BID PEG Last administered on 05/03/18at 08: 36; Start 04/30/18 at 09:48 Guaifenesin (Robitussin Dm) 10 ml PRN Q6HRS PRN PEG COUGH; Start 04/30/18 at 09 :48 Oxycodone/ Acetaminophen (Percocet 7.5/ 325) 1 tab PRN QID PRN PEG MODERATE TO SEVERE PAIN Last administered on 05/02/18 21:11; Start 04/30/18 at 09:49 Lansoprazole (Prevacid) 30 mg BIDAC PEG Last administered on 05/02/18 14:25; Start 04/30/18 at 10:00; Stop 05/02/18 at 17:22; Status DC Chlorthalidone (Thalitone) 25 mg DAILY PEG Last administered on 05/03/18 08:35 ; Start 04/30/18 at 10:00 Albuterol Sulfate (Ventolin Neb Soln) 2.5 mg PRN Q4HRS PRN NEB SHORTNESS OF BREATH; Start 04/30/18 at 10:00 Scopolamine (Transderm-Scop) 1 patch Q3DAYS TD Last administered on 05/03/18 08:41; Start 04/30/18 at 11:00 Scopolamine (Transderm-Scop) 1 patch 1X ONCE TD ; Start 04/30/18 at 10:15; Stop 04/30/18 at 10:16; Status UNV Ceftolozane/ Tazobactam 1500 mg/Sodium Chloride 100 ml @ 100 mls/hr Q8HRS IV Last administered on 05/03/18 05:47; Start 04/30/18 at 14:00 Budesonide (Pulmicort) 0.5 mg RTBID NEB Last administered on 05/03/18 08:42; Start 05/01/18 at 10:30 Lansoprazole (Prevacid) 30 mg 0800,2000 PEG Last administered on 05/03/18 08: 34; Start 05/03/18 at 08:00 Metoclopramide HCl (Reglan Oral Solution) 5 mg 0400,1000,1600,2200 PEG Last administered on 05/03/18at 08:33; Start 05/02/18 at 22:00 Active Scripts Active Gabapentin 300 Mg Capsule 300 Mg PO TID 30 Days Culturelle (Lactobacillus Rhamnosus Gg) 1 Each Cap.sprink 1 Cap PO BID 30 Days Reported Diovan (Valsartan) 160 Mg Tablet 160 Mg PEG DAILY Pantoprazole Sodium 40 Mg Tablet.dr 40 Mg PEG BID Donepezil Hcl 5 Mg Tablet 5 Mg PEG BID Reglan (Metoclopramide Hcl) 10 Mg Tablet 5 Mg PO QIDAFTMEAL Atenolol-Chlorthal 50-25 Tb (Atenolol/Chlorthalidone) 1 Each Tablet 1 Tab PEG DAILY Cyproheptadine Hcl 2 Mg/5 Ml Syrup 2 Mg PEG BID Percocet 7.5-325 Mg Tablet (Oxycodone/Acetaminophen) 1 Each Tablet 1 Tab PO QID PRN Proair Hfa Inhaler (Albuterol Sulfate) 8.5 Gm Hfa.aer.ad 2 Puff IH PRN Q4-6HRS FENTANYL 50mcg/hr (Fentanyl) 1 Each Patch.td72 1 Patch TP Q3DAYS Ondansetron Odt (Ondansetron) 4 Mg Tab.rapdis 4 Mg PEG QIDPRN PRN Vitals/I & O Vital Sign - Last 24 Hours 05/02/18 05/02/18 05/02/18 05/02/18 10:49 11:45 14:33 15:00 Temp 97.9 97.9 97.9 97.9 Pulse 98 91 Resp 18 18 B/P (MAP) 162/64 (96) 124/64 (84) Pulse Ox 92 96 96 97 O2 Delivery Tracheal Collar Tracheal Collar O2 Flow Rate 10.0 10.0 05/02/18 05/02/18 05/02/18 05/02/18 15:29 19:00 20:00 20:01 Temp 98.7 98.7 Pulse 78 Resp 20 B/P (MAP) 132/69 (90) Pulse Ox 96 99 O2 Delivery Tracheal Collar Trach Collar O2 Flow Rate 10.0 50.0 10.0 10.0 05/02/18 05/02/18 05/02/18 05/02/18 20:02 21:11 22:22 23:00 Temp 98.7 98.7 Pulse 84 Resp 18 20 B/P (MAP) 113/62 (79) Pulse Ox 99 99 96 O2 Delivery Tracheal Collar Tracheal Collar O2 Flow Rate 10.0 10.0 10.0 50.0 05/03/18 05/03/18 05/03/18 05/03/18 03:00 07:00 08:00 08:34 Temp 98.8 97.8 98.8 97.8 Pulse 77 82 82 Resp 20 18 B/P (MAP) 147/77 (100) 152/76 (101) 152/76 Pulse Ox 98 97 O2 Delivery Tracheal Collar Tracheal Collar Trach Collar O2 Flow Rate 50.0 10.0 05/03/18 05/03/18 05/03/18 05/03/18 08:34 08:42 08:45 08:48 Pulse 82 Resp 18 B/P (MAP) 152/76 Pulse Ox 98 97 97 O2 Delivery Tracheal Collar O2 Flow Rate 10.0 10.0 Intake and Output 05/02/18 05/02/18 05/03/18 15:01 23:01 07:01 Intake Total 1040 ml 1000 ml 620 ml Output Total 200 ml Balance 1040 ml 800 ml 620 ml Nutrition Consultation Dietary Evaluation: Comments: continue bolus TF via PEG Expected Outcomes/Goals: wt maintanence Malnutrition Findings: Body Fat Depletion (Non Severe: Mild Depletion Weight Status: Underweight CUONG SHIRLEY MD May 03, 2018 10:21
[2018-05-03 11:00] VITALS: BP 128/69
--- NOTE | 2018-05-03 11:43 | PDOC ---
Infectious Disease Note Subjective Subjective Feeling better today Denies SOA/CP Denies N/V/D Vital Sign Vital Signs Vital Signs Date Time Temp Pulse Resp B/P (MAP) Pulse Ox O2 Delivery O2 Flow Rate FiO2 05/03/18 08:48 97 10.0 05/03/18 08:42 18 Tracheal Collar 05/03/18 08:34 82 152/76 05/03/18 07:00 97.8 97.8 Physical Exam PHYSICAL EXAM GENERAL: Propped up in bed, weak appearing NECK: Tracheostomy in place, LUNGS: Decreased breath sounds. HEART: S1, S2 regular. ABDOMEN: Soft, nontender, PEG EXTREMITIES: No edema or cyanosis. 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 Port Labs Lab Laboratory Tests Test 05/03/18 04:30 White Blood Count 15.0 x10^3/uL (4.0-11.0) Red Blood Count 4.20 x10^6/uL (3.50-5.40) Hemoglobin 10.7 g/dL (12.0-15.5) Hematocrit 34.4 % (36.0-47.0) Mean Corpuscular Volume 82 fL (79-100) Mean Corpuscular Hemoglobin 25 pg (25-35) Mean Corpuscular Hemoglobin Concent 31 g/dL (31-37) Red Cell Distribution Width 18.3 % (11.5-14.5) Platelet Count 438 x10^3/uL (140-400) Sodium Level 138 mmol/L (136-145) Potassium Level 4.0 mmol/L (3.5-5.1) Chloride Level 102 mmol/L (98-107) Carbon Dioxide Level 31 mmol/L (21-32) Anion Gap 5 (6-14) Blood Urea Nitrogen 17 mg/dL (7-20) Creatinine 0.9 mg/dL (0.6-1.0) Estimated GFR (Cockcroft-Gault) 73.5 BUN/Creatinine Ratio 19 (6-20) Glucose Level 171 mg/dL (70-99) Calcium Level 9.5 mg/dL (8.5-10.1) Total Bilirubin 0.5 mg/dL (0.2-1.0) Aspartate Amino Transf (AST/SGOT) 17 U/L (15-37) Alanine Aminotransferase (ALT/SGPT) 6 U/L (14-59) Alkaline Phosphatase 80 U/L (46-116) Total Protein 8.7 g/dL (6.4-8.2) Albumin 2.6 g/dL (3.4-5.0) Albumin/Globulin Ratio 0.4 (1.0-1.7) Micro G neg rehan Objective Assessment 1. Pneumonia with multidrug-resistant organism in the past. 2. Chronic respiratory failure. 3. Leukocytosis. 4. History of lung cancer. 5. History of laryngeal cancer. Plan Plan of Care Zerbaxa Sputum culture pending Supportive care ASTER MATOS MD May 03, 2018 11:43
[2018-05-03 15:00] VITALS: BP 125/72
--- NOTE | 2018-05-03 16:45 | RAD ---
Portable chest, 05/03/2018: HISTORY: Follow-up pneumonia Comparison is made to a study from January 27, 2018. The tracheostomy tube in the right Port-A-Cath are unchanged in positions. The heart is at the upper limits of normal in size. Interstitial prominence has improved with better definition of the pulmonary vasculature. Mild left basilar infiltrate persists. No new pulmonary abnormality is seen. No definite pleural fluid is identified. IMPRESSION: Improving pulmonary infiltrates. Electronically signed by: Jarret Gallegos MD (05/03/2018 4:41 PM) [facility]
[2018-05-03 19:00] VITALS: BP 143/71
[2018-05-03 23:00] VITALS: BP 141/68
[2018-05-04] MEDS ORDERED: fentaNYL 50MCG/HR PATCH 1 PATCH PATCH.TD72 TD SCH (01:00)
[2018-05-04] MEDS: ONDANSETRON PF 4 MG/2 ML VIAL. IV PRN ×2 (01:33→09:44)
[2018-05-04 03:00] VITALS: BP 175/82
[2018-05-04] MEDS: METOCLOPRAMIDE ORAL SOLN 10 MG/10 ML SOLUTION. PEG SCH ×4 (03:47→21:14)
[2018-05-04] MEDS: oxyCODONE/APAP 7.5/325 1 TAB TABLET PEG PRN ×2 (03:47→21:14)
[2018-05-04] MEDS: CEFTOLOZANE/TAZOBACTAM 1,500 MG in IV NORMAL SALINE 100ML 100 ML IV SCH ×3 (06:00→21:14)
[2018-05-04 07:00] VITALS: BP 176/82
[2018-05-04] MEDS: IPRATRPIUM/ALBUTEROL 0.5/2.5MG 3 ML NEBU. NEB SCH ×4 (07:50→19:36)
[2018-05-04] MEDS: BUDESONIDE 0.5 MG/2 ML NEBU. NEB SCH ×2 (07:50→19:36)
[2018-05-04] MEDS: CYPROHEPTADINE 4 MG TABLET. PEG SCH ×2 (09:00→21:14)
[2018-05-04] MEDS: CHLORTHALIDONE 25 MG TABLET. PEG SCH (09:39)
[2018-05-04] MEDS: LACTOBACILLUS RHAMNOSUS GG 1 CAPSULE. PO SCH ×2 (09:40→21:14)
[2018-05-04] MEDS: MORPHINE SULFATE 2 MG/ML VIAL. IV PRN ×2 (09:40→14:51)
[2018-05-04] MEDS: ATENOLOL 50 MG TABLET. PEG SCH (09:41)
[2018-05-04] MEDS: LOSARTAN POTASSIUM 50 MG TABLET. PEG SCH (09:41)
[2018-05-04] MEDS: DONEPEZIL HCL 5 MG TABLET. PEG SCH ×2 (09:42→21:14)
[2018-05-04] MEDS: LANSOPRAZOLE 30 MG TAB.RAP.DR PEG SCH ×2 (09:42→21:14)
[2018-05-04] MEDS: ENOXAPARIN 40 MG/0.4 ML SYRINGE. SQ SCH (09:43)
[2018-05-04] MEDS: GABAPENTIN 300 MG CAPSULE. PO SCH ×3 (09:43→21:13)
[2018-05-04 11:00] VITALS: BP 145/82
--- NOTE | 2018-05-04 11:13 | PDOC ---
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 14.History of lung cancer. 15.History of laryngeal cancer. 16.GNR in urine from 04/29. UA neg Zerbaxa Sputum culture pending History of Present Illness History of Present Illness continue ABx Lovenox for DVT prophylaxis Nutrition consult for tube feeds and PCM severe DuoNeb's Cough medicine Supportive meds Full code PT OT when able slight improvement Vitals Vitals Vital Signs Date Time Temp Pulse Resp B/P (MAP) Pulse Ox O2 Delivery O2 Flow Rate FiO2 05/04/18 10:10 14 100 10.0 05/04/18 09:41 76 176/82 05/04/18 07:00 97.7 Tracheal Collar 97.7 Physical Exam Physical Exam GENERAL: Propped up in bed, weak appearing NECK: Tracheostomy in place, LUNGS: Decreased breath sounds. HEART: S1, S2 regular. ABDOMEN: Soft, nontender, PEG EXTREMITIES: No edema or cyanosis. 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 Port General: Alert, Cooperative, No acute distress, mild distress Heart: Regular rate, Normal S1, No murmurs Lungs: Crackles (LLL CRACKLES), Other (decrease bs) Abdomen: Normal bowel sounds, Soft, No tenderness, No hepatosplenomegaly, No masses, Other (PEG) Extremities: No clubbing, No cyanosis, No edema, Normal pulses, No tenderness/ swelling Skin: Other (Minimal subcutaneous tissue, senile skin turgor) Assessment and Plan Assessmemt and Plan Problems Medical Problems: (1) Chronic respiratory failure Status: Acute (2) Dyspnea Status: Acute Comment Review of Relevant I have reviewed the following items miko (where applicable) has been applied. Labs Laboratory Tests Test 05/03/18 04:30 White Blood Count 15.0 x10^3/uL (4.0-11.0) Red Blood Count 4.20 x10^6/uL (3.50-5.40) Hemoglobin 10.7 g/dL (12.0-15.5) Hematocrit 34.4 % (36.0-47.0) Mean Corpuscular Volume 82 fL (79-100) Mean Corpuscular Hemoglobin 25 pg (25-35) Mean Corpuscular Hemoglobin Concent 31 g/dL (31-37) Red Cell Distribution Width 18.3 % (11.5-14.5) Platelet Count 438 x10^3/uL (140-400) Sodium Level 138 mmol/L (136-145) Potassium Level 4.0 mmol/L (3.5-5.1) Chloride Level 102 mmol/L (98-107) Carbon Dioxide Level 31 mmol/L (21-32) Anion Gap 5 (6-14) Blood Urea Nitrogen 17 mg/dL (7-20) Creatinine 0.9 mg/dL (0.6-1.0) Estimated GFR (Cockcroft-Gault) 73.5 BUN/Creatinine Ratio 19 (6-20) Glucose Level 171 mg/dL (70-99) Calcium Level 9.5 mg/dL (8.5-10.1) Total Bilirubin 0.5 mg/dL (0.2-1.0) Aspartate Amino Transf (AST/SGOT) 17 U/L (15-37) Alanine Aminotransferase (ALT/SGPT) 6 U/L (14-59) Alkaline Phosphatase 80 U/L (46-116) Total Protein 8.7 g/dL (6.4-8.2) Albumin 2.6 g/dL (3.4-5.0) Albumin/Globulin Ratio 0.4 (1.0-1.7) Microbiology 04/29/18 Blood Culture - Preliminary, Resulted NO GROWTH AFTER 4 DAYS 04/30/18 - Final, Resulted 04/30/18 - Final, Resulted 04/30/18 - Final, Resulted 04/30/18 Gram Stain Evaluation - Final, Resulted 04/30/18 Sputum Culture, Resulted Pending 04/29/18 Urine Culture - Final, Complete 04/29/18 Urine Culture Result 1 (VANITA) - Final, Complete Medications Current Medications Albuterol/ Ipratropium (Duoneb) 3 ml 1X ONCE NEB Last administered on at 17:56; Start 04/29/18 at 17:45; Stop 04/29/18 at 17:46; Status DC Piperacillin Sod/ Tazobactam Sod (Zosyn Per Pharmacy) 1 each PRN DAILY PRN MC SEE COMMENTS; Start 04/29/18 at 19:30; Stop 05/01/18 at 14:22; Status DC Vancomycin HCl (Vanco Per Pharmacy) 1 each PRN DAILY PRN MC SEE COMMENTS Last administered on 04/30/18at 01:00; Start 04/29/18 at 19:30; Stop 04/30/18 at 12:28 ; Status DC Piperacillin Sod/ Tazobactam Sod 4.5 gm/Sodium Chloride 100 ml @ 200 mls/hr 1X ONCE IV Last administered on 04/29/18at 19:56; Start 04/29/18 at 19:45; Stop 04/29/18 at 20:14; Status DC Vancomycin HCl 1.25 gm/Sodium Chloride 250 ml @ 167 mls/hr ONCE ONCE IV Last administered on 04/29/18at 19:56; Start 04/29/18 at 20:00; Stop 04/29/18 at 21:29 ; Status DC Oxycodone/ Acetaminophen (Percocet 7.5/ 325) 1 tab 1X ONCE PO Last administered on 04/29/18at 21:44; Start 04/29/18 at 21:15; Stop 04/29/18 at 21:16 ; Status DC Piperacillin Sod/ Tazobactam Sod 2.25 gm/Sodium Chloride 50 ml @ 100 mls/hr Q6HRS IV Last administered on 04/30/18at 11:44; Start 04/30/18 at 06:00; Stop at 12:12; Status DC Vancomycin HCl 1 gm/Sodium Chloride 250 ml @ 250 mls/hr Q24H IV ; Start at 20:00; Stop 04/30/18 at 20:00; Status DC Vancomycin HCl (Vancomycin Trough Level) 1 each 1X ONCE MC ; Start 05/01/18 at 19:30; Stop 05/01/18 at 19:30; Status DC Lactobacillus Rhamnosus (Culturelle) 1 cap BID PO ; Start 04/30/18 at 09:00; Status Cancel Acetaminophen (Tylenol) 650 mg PRN Q6HRS PRN PEG MILD PAIN / TEMP; Start at 08:45 Ondansetron HCl (Zofran) 4 mg PRN Q6HRS PRN IV NAUSEA/VOMITING Last administered on 05/04/18at 09:44; Start 04/30/18 at 08:45 Ondansetron HCl (Zofran Odt) 4 mg PRN Q6HRS PRN PO NAUSEA/VOMITING; Start 04/30 at 08:45; Status Cancel Fentanyl (Duragesic 50mcg/ Hr Patch) 1 patch Q3DAYS TD Last administered on at 08:42; Start 04/30/18 at 10:00; Stop 05/04/18 at 00:35; Status DC Lactobacillus Rhamnosus (Culturelle) 1 cap BID PO Last administered on at 09:40; Start 04/30/18 at 10:00 Metoclopramide HCl (Reglan) 5 mg QIDAFTMEAL PO ; Start 04/30/18 at 09:45; Stop 04/30/18 at 09:47; Status DC Ondansetron HCl (Zofran Odt) 4 mg QIDPRN PRN PEG NAUSEA/VOMITING; Start at 08:45 Oxycodone/ Acetaminophen (Percocet 7.5/ 325) 1 tab PRN QID PRN PO MODERATE TO SEVERE PAIN; Start 04/30/18 at 08:45; Stop 04/30/18 at 09:49; Status DC Pantoprazole Sodium (Protonix) 40 mg BIDAC PO ; Start 04/30/18 at 09:45; Stop at 09:52; Status DC Non-Formulary Medication (Albuterol Sulfate (Proair Hfa Inhaler)) 2 puff PRN Q4- 6HRS IH ; Start 04/30/18 at 08:45; Status UNV Atenolol (Tenormin) 50 mg DAILY PEG Last administered on 05/04/18at 09:41; Start 04/30/18 at 10:00 Cyproheptadine HCl (Periactin) 2 mg BID PO ; Start 04/30/18 at 09:45; Stop 04/30 at 09:48; Status DC Donepezil HCl (Aricept) 5 mg BID PEG Last administered on 05/04/18at 09:42; Start 05/01/18 at 10:00 Gabapentin (Neurontin) 300 mg TID PO Last administered on 05/04/18 09:43; Start 04/30/18 at 10:00 Losartan Potassium (Cozaar) 100 mg DAILY PEG Last administered on 05/04/18 09: 41; Start 05/01/18 at 09:00 Enoxaparin Sodium (Lovenox 40mg Syringe) 40 mg Q24H SQ Last administered on 09:43; Start 04/30/18 at 10:00 Morphine Sulfate (Morphine Sulfate) 1 mg PRN Q2HR PRN IV PAIN Last administered on 05/04/18 09:40; Start 04/30/18 at 08:45 Albuterol/ Ipratropium (Duoneb) 3 ml RTQID NEB Last administered on 05/04/18 07:50; Start 04/30/18 at 12:00 Guaifenesin (Robitussin Dm) 10 ml PRN Q6HRS PRN PO COUGH; Start 04/30/18 at 08: 45; Stop 04/30/18 at 09:48; Status DC Metoclopramide HCl (Reglan Oral Solution) 5 mg QIDAFTMEAL PEG Last administered on 05/02/18 16:50; Start 04/30/18 at 09:47; Stop 05/02/18 at 17:22 ; Status DC Cyproheptadine HCl (Periactin) 2 mg BID PEG Last administered on 05/04/18 09: 00; Start 04/30/18 at 09:48 Guaifenesin (Robitussin Dm) 10 ml PRN Q6HRS PRN PEG COUGH; Start 04/30/18 at 09 :48 Oxycodone/ Acetaminophen (Percocet 7.5/ 325) 1 tab PRN QID PRN PEG MODERATE TO SEVERE PAIN Last administered on 05/04/18 03:47; Start 04/30/18 at 09:49 Lansoprazole (Prevacid) 30 mg BIDAC PEG Last administered on 05/02/18 14:25; Start 04/30/18 at 10:00; Stop 05/02/18 at 17:22; Status DC Chlorthalidone (Thalitone) 25 mg DAILY PEG Last administered on 05/04/18 09:39 ; Start 04/30/18 at 10:00 Albuterol Sulfate (Ventolin Neb Soln) 2.5 mg PRN Q4HRS PRN NEB SHORTNESS OF BREATH; Start 04/30/18 at 10:00 Scopolamine (Transderm-Scop) 1 patch Q3DAYS TD Last administered on 05/03/18at 08:41; Start 04/30/18 at 11:00 Scopolamine (Transderm-Scop) 1 patch 1X ONCE TD ; Start 04/30/18 at 10:15; Stop 04/30/18 at 10:16; Status UNV Ceftolozane/ Tazobactam 1500 mg/Sodium Chloride 100 ml @ 100 mls/hr Q8HRS IV Last administered on 05/03/18at 23:18; Start 04/30/18 at 14:00 Budesonide (Pulmicort) 0.5 mg RTBID NEB Last administered on 05/04/18at 07:50; Start 05/01/18 at 10:30 Lansoprazole (Prevacid) 30 mg 0800,2000 PEG Last administered on 05/04/18at 09: 42; Start 05/03/18 at 08:00 Metoclopramide HCl (Reglan Oral Solution) 5 mg 0400,1000,1600,2200 PEG Last administered on 05/04/18at 09:38; Start 05/02/18 at 22:00 Fentanyl (Duragesic 50mcg/ Hr Patch) 1 patch Q3DAYS TD Last administered on at 00:42; Start 05/04/18 at 01:00 Active Scripts Active Gabapentin 300 Mg Capsule 300 Mg PO TID 30 Days Culturelle (Lactobacillus Rhamnosus Gg) 1 Each Cap.sprink 1 Cap PO BID 30 Days Reported Diovan (Valsartan) 160 Mg Tablet 160 Mg PEG DAILY Pantoprazole Sodium 40 Mg Tablet.dr 40 Mg PEG BID Donepezil Hcl 5 Mg Tablet 5 Mg PEG BID Reglan (Metoclopramide Hcl) 10 Mg Tablet 5 Mg PO QIDAFTMEAL Atenolol-Chlorthal 50-25 Tb (Atenolol/Chlorthalidone) 1 Each Tablet 1 Tab PEG DAILY Cyproheptadine Hcl 2 Mg/5 Ml Syrup 2 Mg PEG BID Percocet 7.5-325 Mg Tablet (Oxycodone/Acetaminophen) 1 Each Tablet 1 Tab PO QID PRN Proair Hfa Inhaler (Albuterol Sulfate) 8.5 Gm Hfa.aer.ad 2 Puff IH PRN Q4-6HRS FENTANYL 50mcg/hr (Fentanyl) 1 Each Patch.td72 1 Patch TP Q3DAYS Ondansetron Odt (Ondansetron) 4 Mg Tab.rapdis 4 Mg PEG QIDPRN PRN Vitals/I & O Vital Sign - Last 24 Hours 05/03/18 05/03/18 05/03/18 05/03/18 12:27 12:35 15:00 15:51 Temp 98.9 98.9 Pulse 78 Resp 18 18 B/P (MAP) 125/72 (89) Pulse Ox 98 98 O2 Delivery Tracheal Collar Tracheal Collar O2 Flow Rate 10.0 10.0 10.0 05/03/18 05/03/18 05/03/18 05/03/18 19:00 20:00 20:18 20:19 Temp 98.1 98.1 Pulse 71 Resp 18 B/P (MAP) 143/71 (95) Pulse Ox 100 100 100 O2 Delivery Tracheal Collar Trach Collar O2 Flow Rate 10.0 10.0 10.0 05/03/18 05/04/18 05/04/18 05/04/18 23:00 03:00 07:00 07:52 Temp 98.3 98.3 97.7 98.3 98.3 97.7 Pulse 81 97 76 Resp 18 18 18 B/P (MAP) 141/68 (92) 175/82 (113) 176/82 (113) Pulse Ox 96 97 94 100 O2 Delivery Tracheal Collar Tracheal Collar O2 Flow Rate 10.0 10.0 10.0 05/04/18 05/04/18 05/04/18 05/04/18 09:40 09:41 09:41 10:10 Pulse 76 76 Resp 14 B/P (MAP) 176/82 176/82 Pulse Ox 100 100 O2 Flow Rate 10.0 10.0 Intake and Output 05/03/18 05/03/18 05/04/18 14:59 22:59 06:59 Intake Total 800 ml 400 ml 150 ml Balance 800 ml 400 ml 150 ml Nutrition Consultation Dietary Evaluation: Comments: continue bolus TF via PEG Expected Outcomes/Goals: wt maintanence Malnutrition Findings: Body Fat Depletion (Non Severe: Mild Depletion Weight Status: Underweight CUONG SHIRLEY MD May 04, 2018 11:13
--- NOTE | 2018-05-04 12:32 | PDOC ---
Infectious Disease Note Subjective Subjective Feeling better today Denies SOA/CP Denies N/V/D ROS ROS no n/v/d/sob Vital Sign Vital Signs Vital Signs Date Time Temp Pulse Resp B/P (MAP) Pulse Ox O2 Delivery O2 Flow Rate FiO2 05/04/18 11:40 10.0 05/04/18 11:00 97.8 78 18 145/82 (103) 95 Tracheal Collar 97.8 Physical Exam PHYSICAL EXAM GENERAL: Propped up in bed, weak appearing NECK: Tracheostomy in place, LUNGS: Decreased breath sounds. HEART: S1, S2 regular. ABDOMEN: Soft, nontender, PEG EXTREMITIES: No edema or cyanosis. 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 Pneumonia with multidrug-resistant organism in the past. 2. Chronic respiratory failure. 3. Leukocytosis. 4. History of lung cancer. 5. History of laryngeal cancer. Plan Plan of Care Zerbaxa Sputum culture pending Supportive care ASTER MATOS MD May 04, 2018 12:32
--- NOTE | 2018-05-04 13:43 | PDOC ---
PULMONARY PROGRESS NOTES Subjective trach, sob, cough better, no pain Vitals Vital Signs Date Time Temp Pulse Resp B/P (MAP) Pulse Ox O2 Delivery O2 Flow Rate FiO2 05/04/18 11:40 10.0 05/04/18 11:00 97.8 78 18 145/82 (103) 95 Tracheal Collar 97.8 ROS: No Nausea, No Chest Pain General: Alert, No acute distress HEENT: Other (nc at perrl. nose throat clear. trach site ok) Lungs: Other (decrease bs) Cardiovascular: S1, S2 Abdomen: Soft, Non-tender Neuro Exam: Alert Extremities: No Edema Skin: Warm Labs Laboratory Tests Test 05/03/18 04:30 White Blood Count 15.0 x10^3/uL (4.0-11.0) Red Blood Count 4.20 x10^6/uL (3.50-5.40) Hemoglobin 10.7 g/dL (12.0-15.5) Hematocrit 34.4 % (36.0-47.0) Mean Corpuscular Volume 82 fL (79-100) Mean Corpuscular Hemoglobin 25 pg (25-35) Mean Corpuscular Hemoglobin Concent 31 g/dL (31-37) Red Cell Distribution Width 18.3 % (11.5-14.5) Platelet Count 438 x10^3/uL (140-400) Sodium Level 138 mmol/L (136-145) Potassium Level 4.0 mmol/L (3.5-5.1) Chloride Level 102 mmol/L (98-107) Carbon Dioxide Level 31 mmol/L (21-32) Anion Gap 5 (6-14) Blood Urea Nitrogen 17 mg/dL (7-20) Creatinine 0.9 mg/dL (0.6-1.0) Estimated GFR (Cockcroft-Gault) 73.5 BUN/Creatinine Ratio 19 (6-20) Glucose Level 171 mg/dL (70-99) Calcium Level 9.5 mg/dL (8.5-10.1) Total Bilirubin 0.5 mg/dL (0.2-1.0) Aspartate Amino Transf (AST/SGOT) 17 U/L (15-37) Alanine Aminotransferase (ALT/SGPT) 6 U/L (14-59) Alkaline Phosphatase 80 U/L (46-116) Total Protein 8.7 g/dL (6.4-8.2) Albumin 2.6 g/dL (3.4-5.0) Albumin/Globulin Ratio 0.4 (1.0-1.7) Medications Active Scripts Medications Dose Route/Sig Max Daily Dose Days Date Category Gabapentin 300 Mg Capsule 300 Mg PO TID 30 02/18/18 Rx Culturelle (Lactobacillus Rhamnosus Gg) 1 Each Cap.sprink 1 Cap PO BID 30 07/07/17 Rx Diovan (Valsartan) 160 Mg Tablet 160 Mg PEG DAILY 03/11/17 Reported Pantoprazole Sodium 40 Mg Tablet.dr 40 Mg PEG BID 03/11/17 Reported Donepezil Hcl 5 Mg Tablet 5 Mg PEG BID 03/11/17 Reported Reglan (Metoclopramide Hcl) 10 Mg Tablet 5 Mg PO QIDAFTMEAL 03/11/17 Reported Atenolol-Chlorthal 50-25 Tb (Atenolol/Chlorthalidone) 1 Each Tablet 1 Tab PEG DAILY 03/11/17 Reported Cyproheptadine Hcl 2 Mg/5 Ml Syrup 2 Mg PEG BID 03/11/17 Reported Percocet 7.5-325 Mg Tablet (Oxycodone/Acetaminophen) 1 Each Tablet 1 Tab PO QID PRN 03/11/17 Reported Proair Hfa Inhaler (Albuterol Sulfate) 8.5 Gm Hfa.aer.ad 2 Puff IH PRN Q4-6HRS 08/16/15 Reported FENTANYL 50mcg/hr (Fentanyl) 1 Each Patch.td72 1 Patch TP Q3DAYS 06/19/14 Reported Ondansetron Odt (Ondansetron) 4 Mg Tab.rapdis 4 Mg PEG QIDPRN PRN 06/19/14 Reported Impression . IMPRESSION: 1. Acute on chronic respiratory failure secondary to severe, recurrent tracheobronchitis and suspected left lung pneumonia. This is a patient who had pneumonias with multiple organisms including MRSA and multi-resistant pseudomonas pneumonia recently in March. . 2. History of chronic respiratory failure with chronic tracheostomy. 3. History of laryngeal carcinoma and history of left lung cancer, status post radiation. 4. Leukocytosis. 5. Chronic dysphagia. Plan . RECOMMENDATIONS: 1. Continue with present Trach care with p.r.n. aggressive suction. 2. no need for bronchoscopy now. clinically much better 3. antibiotics per ID. has history of multi-resistant pseudomonas pneumonia and MRSA. Gram neg rods on sputum now, PSA again 4. Aggressive bronchodilators. ICS 5. Pulmonary toilet. 6. Lovenox, Prevacid for prophylaxis discussed w pt MARY LANIER MD May 04, 2018 13:43
[2018-05-04 15:00] VITALS: BP 135/74
[2018-05-04] MEDS: POLYETHYLENE GLYCOL 3350 17 GM PACKET. PO SCH (16:40)
[2018-05-04 19:00] VITALS: BP 131/64
[2018-05-04 23:00] VITALS: BP 117/53
[2018-05-05 03:00] VITALS: BP 145/71
[2018-05-05] MEDS: METOCLOPRAMIDE ORAL SOLN 10 MG/10 ML SOLUTION. PEG SCH ×4 (05:27→21:03)
[2018-05-05] MEDS: CEFTOLOZANE/TAZOBACTAM 1,500 MG in IV NORMAL SALINE 100ML 100 ML IV SCH ×3 (05:28→21:10)
[2018-05-05 07:00] VITALS: BP 131/61
[2018-05-05] MEDS: IPRATRPIUM/ALBUTEROL 0.5/2.5MG 3 ML NEBU. NEB SCH ×4 (07:32→19:52)
[2018-05-05] MEDS: BUDESONIDE 0.5 MG/2 ML NEBU. NEB SCH ×2 (07:32→19:52)
[2018-05-05] MEDS: ATENOLOL 50 MG TABLET. PEG SCH (08:14)
[2018-05-05] MEDS: CHLORTHALIDONE 25 MG TABLET. PEG SCH (08:14)
[2018-05-05] MEDS: CYPROHEPTADINE 4 MG TABLET. PEG SCH ×2 (08:15→21:04)
[2018-05-05] MEDS: GABAPENTIN 300 MG CAPSULE. PO SCH ×3 (08:15→21:05)
[2018-05-05] MEDS: LACTOBACILLUS RHAMNOSUS GG 1 CAPSULE. PO SCH ×2 (08:15→21:04)
[2018-05-05] MEDS: LANSOPRAZOLE 30 MG TAB.RAP.DR PEG SCH ×2 (08:15→21:04)
[2018-05-05] MEDS: DONEPEZIL HCL 5 MG TABLET. PEG SCH ×2 (08:16→21:05)
[2018-05-05] MEDS: POLYETHYLENE GLYCOL 3350 17 GM PACKET. PO SCH (08:16)
[2018-05-05] MEDS: LOSARTAN POTASSIUM 50 MG TABLET. PEG SCH (08:16)
[2018-05-05] MEDS: ENOXAPARIN 40 MG/0.4 ML SYRINGE. SQ SCH (08:17)
[2018-05-05] MEDS: ONDANSETRON PF 4 MG/2 ML VIAL. IV PRN (09:04)
--- NOTE | 2018-05-05 09:10 | PDOC ---
PULMONARY PROGRESS NOTES Subjective trach, sob, cough better, no pain Vitals Vital Signs Date Time Temp Pulse Resp B/P (MAP) Pulse Ox O2 Delivery O2 Flow Rate FiO2 05/05/18 08:16 64 131/61 05/05/18 07:34 Tracheal Collar 10.0 05/05/18 07:00 97.5 16 97 97.5 ROS: No Nausea, No Chest Pain General: Alert, No acute distress HEENT: Other (nc at perrl. nose throat clear. trach site ok) Lungs: Other (decrease bs) Cardiovascular: S1, S2 Abdomen: Soft, Non-tender Neuro Exam: Alert Extremities: No Edema Skin: Warm Medications Active Scripts Medications Dose Route/Sig Max Daily Dose Days Date Category Gabapentin 300 Mg Capsule 300 Mg PO TID 30 02/18/18 Rx Culturelle (Lactobacillus Rhamnosus Gg) 1 Each Cap.sprink 1 Cap PO BID 30 07/07/17 Rx Diovan (Valsartan) 160 Mg Tablet 160 Mg PEG DAILY 03/11/17 Reported Pantoprazole Sodium 40 Mg Tablet.dr 40 Mg PEG BID 03/11/17 Reported Donepezil Hcl 5 Mg Tablet 5 Mg PEG BID 03/11/17 Reported Reglan (Metoclopramide Hcl) 10 Mg Tablet 5 Mg PO QIDAFTMEAL 03/11/17 Reported Atenolol-Chlorthal 50-25 Tb (Atenolol/Chlorthalidone) 1 Each Tablet 1 Tab PEG DAILY 03/11/17 Reported Cyproheptadine Hcl 2 Mg/5 Ml Syrup 2 Mg PEG BID 03/11/17 Reported Percocet 7.5-325 Mg Tablet (Oxycodone/Acetaminophen) 1 Each Tablet 1 Tab PO QID PRN 03/11/17 Reported Proair Hfa Inhaler (Albuterol Sulfate) 8.5 Gm Hfa.aer.ad 2 Puff IH PRN Q4-6HRS 08/16/15 Reported FENTANYL 50mcg/hr (Fentanyl) 1 Each Patch.td72 1 Patch TP Q3DAYS 06/19/14 Reported Ondansetron Odt (Ondansetron) 4 Mg Tab.rapdis 4 Mg PEG QIDPRN PRN 06/19/14 Reported Impression . IMPRESSION: 1. Acute on chronic respiratory failure secondary to severe, recurrent tracheobronchitis and suspected left lung pneumonia. This is a patient who had pneumonias with multiple organisms including MRSA and multi-resistant pseudomonas pneumonia recently in March. . 2. History of chronic respiratory failure with chronic tracheostomy. 3. History of laryngeal carcinoma and history of left lung cancer, status post radiation. 4. Leukocytosis. 5. Chronic dysphagia. Plan . RECOMMENDATIONS: 1. Continue with present Trach care with p.r.n. aggressive suction. 2. no need for bronchoscopy now. clinically much better 3. antibiotics per ID. has history of multi-resistant pseudomonas pneumonia and MRSA. Gram neg rods on sputum now, PSA again 4. Aggressive bronchodilators. ICS 5. Pulmonary toilet. 6. Lovenox, Prevacid for prophylaxis discussed w pt MARY LANIER MD May 05, 2018 09:10
--- NOTE | 2018-05-05 09:48 | PDOC ---
Infectious Disease Note Subjective Subjective Feeling better today Denies SOA/CP Denies N/V/D Vital Sign Vital Signs Vital Signs Date Time Temp Pulse Resp B/P (MAP) Pulse Ox O2 Delivery O2 Flow Rate FiO2 05/05/18 08:16 64 131/61 05/05/18 07:34 Tracheal Collar 10.0 05/05/18 07:00 97.5 16 97 97.5 Physical Exam PHYSICAL EXAM GENERAL: Propped up in bed, weak appearing NECK: Tracheostomy in place, LUNGS: Decreased breath sounds. HEART: S1, S2 regular. ABDOMEN: Soft, nontender, PEG EXTREMITIES: No edema or cyanosis. 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 GRAM STAIN EVALUATION Final Comment This specimen is of good quality and is acceptable for routine bacterial culture. Performed at: [facility] [id number], [place], [place] [id number] Tobacco Sampler: YANG Lawrence MD, Phone: [phone] SPUTUM CULTURE-LC Preliminary Preliminary report SPUTUM CULT RES 1 Final Comment Pseudomonas aeruginosa 1+ SPUTUM CULT RES 2 Final Comment Routine respiratory jewell 3+ Performed at: [address], [place], [place] [id number] Tobacco Sampler: YANG Lawrence MD, Phone: [phone] Objective Assessment 1. Pneumonia with multidrug-resistant organism in the past. 2. Chronic respiratory failure. 3. Leukocytosis. 4. History of lung cancer. 5. History of laryngeal cancer. Plan Plan of Care Zerbaxa PSA susceptibility pending , pt refuses to go to SNF, will see if she has home iv coverage Supportive care ASTER MATOS MD May 05, 2018 09:48
--- NOTE | 2018-05-05 10:39 | PDOC ---
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 14.History of lung cancer. 15.History of laryngeal cancer. 16.GNR in urine from 04/29. UA neg Zerbaxa refusing snf Sputum culture pending History of Present Illness History of Present Illness continue ABx Lovenox for DVT prophylaxis Nutrition consult for tube feeds and PCM severe DuoNeb's Cough medicine Supportive meds Full code PT OT when able slight improvement Vitals Vitals Vital Signs Date Time Temp Pulse Resp B/P (MAP) Pulse Ox O2 Delivery O2 Flow Rate FiO2 05/05/18 08:16 64 131/61 05/05/18 08:00 Trach Collar 10.0 05/05/18 07:00 97.5 16 97 97.5 Physical Exam Physical Exam GENERAL: Propped up in bed, weak appearing NECK: Tracheostomy in place, LUNGS: Decreased breath sounds. HEART: S1, S2 regular. ABDOMEN: Soft, nontender, PEG EXTREMITIES: No edema or cyanosis. 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 GRAM STAIN EVALUATION Final Comment This specimen is of good quality and is acceptable for routine bacterial culture. Performed at: - [facility] [address], [place], [place] [id number] Forklift Supervisor: YANG Lawrence MD, Phone: [phone] SPUTUM CULTURE- Final Final report SPUTUM CULT RES 1 Final Comment Carbapenem-resistant Pseudomonas aeruginosa 1+ Multi-Drug Resistant Organism * This is a corrected result. * A prior result that was reported as final has been changed. CONTINUED ON NEXT PAGE RUN DATE: 05/05/18 PAGE 2 RUN TIME: 1213 [facility] [address] [place] [address] Jorge Tierney M.D., Corporate Law Assistant SPEC: [id number] PATIENT: BERNARDO DE LEON [id number] ( Continued) Procedure Result SPUTUM CULT RES 2 Final Comment Routine respiratory jewell 3+ Performed at: [address] [id number] Forklift Supervisor: YANG Lawrence MD, Phone: [phone] ANTIMICROBIAL SUSCEPTIBILITY Final Comment S = Susceptible; I = Intermediate; R = Resistant P = Positive; N = Negative MICS are expressed in micrograms per mL Antibiotic RSLT#1 RSLT#2 RSLT#3 RSLT#4 Amikacin S<=2 Cefepime R =32 Ceftazidime R>=64 Ciprofloxacin I =2 Gentamicin S<=1 Imipenem R>=16 Levofloxacin I =4 Meropenem R>=16 Piperacillin R>=128 Ticarcillin R>=128 Tobramycin S<=1 Performed at: [id number], [place], [place] [id number] Forklift Supervisor: YANG Lawrence MD, Phone: [phone] Assessment and Plan Assessmemt and Plan Problems Medical Problems: (1) Chronic respiratory failure Status: Acute (2) Dyspnea Status: Acute Comment Review of Relevant I have reviewed the following items miko (where applicable) has been applied. Labs Microbiology 04/29/18 Blood Culture - Final, Complete NO GROWTH AFTER 5 DAYS 04/30/18 - Final, Resulted 04/30/18 - Final, Resulted 04/30/18 - Final, Resulted 04/30/18 Gram Stain Evaluation - Final, Resulted 04/30/18 Sputum Culture - Preliminary, Resulted 04/30/18 Sputum Result 1 - Final, Resulted 04/30/18 Sputum Result 2 - Final, Resulted 04/29/18 Urine Culture - Final, Complete 04/29/18 Urine Culture Result 1 (VANITA) - Final, Complete Medications Current Medications Albuterol/ Ipratropium (Duoneb) 3 ml 1X ONCE NEB Last administered on at 17:56; Start 04/29/18 at 17:45; Stop 04/29/18 at 17:46; Status DC Piperacillin Sod/ Tazobactam Sod (Zosyn Per Pharmacy) 1 each PRN DAILY PRN MC SEE COMMENTS; Start 04/29/18 at 19:30; Stop 05/01/18 at 14:22; Status DC Vancomycin HCl (Vanco Per Pharmacy) 1 each PRN DAILY PRN MC SEE COMMENTS Last administered on 04/30/18at 01:00; Start 04/29/18 at 19:30; Stop 04/30/18 at 12:28 ; Status DC Piperacillin Sod/ Tazobactam Sod 4.5 gm/Sodium Chloride 100 ml @ 200 mls/hr 1X ONCE IV Last administered on 04/29/18at 19:56; Start 04/29/18 at 19:45; Stop 04/29/18 at 20:14; Status DC Vancomycin HCl 1.25 gm/Sodium Chloride 250 ml @ 167 mls/hr ONCE ONCE IV Last administered on 04/29/18at 19:56; Start 04/29/18 at 20:00; Stop 04/29/18 at 21:29 ; Status DC Oxycodone/ Acetaminophen (Percocet 7.5/ 325) 1 tab 1X ONCE PO Last administered on 04/29/18at 21:44; Start 04/29/18 at 21:15; Stop 04/29/18 at 21:16 ; Status DC Piperacillin Sod/ Tazobactam Sod 2.25 gm/Sodium Chloride 50 ml @ 100 mls/hr Q6HRS IV Last administered on 04/30/18at 11:44; Start 04/30/18 at 06:00; Stop at 12:12; Status DC Vancomycin HCl 1 gm/Sodium Chloride 250 ml @ 250 mls/hr Q24H IV ; Start at 20:00; Stop 04/30/18 at 20:00; Status DC Vancomycin HCl (Vancomycin Trough Level) 1 each 1X ONCE MC ; Start 05/01/18 at 19:30; Stop 05/01/18 at 19:30; Status DC Lactobacillus Rhamnosus (Culturelle) 1 cap BID PO ; Start 04/30/18 at 09:00; Status Cancel Acetaminophen (Tylenol) 650 mg PRN Q6HRS PRN PEG MILD PAIN / TEMP; Start at 08:45 Ondansetron HCl (Zofran) 4 mg PRN Q6HRS PRN IV NAUSEA/VOMITING Last administered on 05/05/18at 09:04; Start 04/30/18 at 08:45 Ondansetron HCl (Zofran Odt) 4 mg PRN Q6HRS PRN PO NAUSEA/VOMITING; Start 04/30 at 08:45; Status Cancel Fentanyl (Duragesic 50mcg/ Hr Patch) 1 patch Q3DAYS TD Last administered on at 08:42; Start 04/30/18 at 10:00; Stop 05/04/18 at 00:35; Status DC Lactobacillus Rhamnosus (Culturelle) 1 cap BID PO Last administered on at 08:15; Start 04/30/18 at 10:00 Metoclopramide HCl (Reglan) 5 mg QIDAFTMEAL PO ; Start 04/30/18 at 09:45; Stop 04/30/18 at 09:47; Status DC Ondansetron HCl (Zofran Odt) 4 mg QIDPRN PRN PEG NAUSEA/VOMITING; Start at 08:45 Oxycodone/ Acetaminophen (Percocet 7.5/ 325) 1 tab PRN QID PRN PO MODERATE TO SEVERE PAIN; Start 04/30/18 at 08:45; Stop 04/30/18 at 09:49; Status DC Pantoprazole Sodium (Protonix) 40 mg BIDAC PO ; Start 04/30/18 at 09:45; Stop at 09:52; Status DC Non-Formulary Medication (Albuterol Sulfate (Proair Hfa Inhaler)) 2 puff PRN Q4- 6HRS IH ; Start 04/30/18 at 08:45; Status UNV Atenolol (Tenormin) 50 mg DAILY PEG Last administered on 05/05/18at 08:14; Start 04/30/18 at 10:00 Cyproheptadine HCl (Periactin) 2 mg BID PO ; Start 04/30/18 at 09:45; Stop 04/30 at 09:48; Status DC Donepezil HCl (Aricept) 5 mg BID PEG Last administered on 05/05/18 08:16; Start 05/01/18 at 10:00 Gabapentin (Neurontin) 300 mg TID PO Last administered on 05/05/18 08:15; Start 04/30/18 at 10:00 Losartan Potassium (Cozaar) 100 mg DAILY PEG Last administered on 05/05/18 08: 16; Start 05/01/18 at 09:00 Enoxaparin Sodium (Lovenox 40mg Syringe) 40 mg Q24H SQ Last administered on 08:17; Start 04/30/18 at 10:00 Morphine Sulfate (Morphine Sulfate) 1 mg PRN Q2HR PRN IV PAIN Last administered on 05/04/18 14:51; Start 04/30/18 at 08:45 Albuterol/ Ipratropium (Duoneb) 3 ml RTQID NEB Last administered on 05/05/18at 07:32; Start 04/30/18 at 12:00 Guaifenesin (Robitussin Dm) 10 ml PRN Q6HRS PRN PO COUGH; Start 04/30/18 at 08: 45; Stop 04/30/18 at 09:48; Status DC Metoclopramide HCl (Reglan Oral Solution) 5 mg QIDAFTMEAL PEG Last administered on 05/02/18at 16:50; Start 04/30/18 at 09:47; Stop 05/02/18 at 17:22 ; Status DC Cyproheptadine HCl (Periactin) 2 mg BID PEG Last administered on 05/05/18 08: 15; Start 04/30/18 at 09:48 Guaifenesin (Robitussin Dm) 10 ml PRN Q6HRS PRN PEG COUGH; Start 04/30/18 at 09 :48 Oxycodone/ Acetaminophen (Percocet 7.5/ 325) 1 tab PRN QID PRN PEG MODERATE TO SEVERE PAIN Last administered on 05/04/18at 21:14; Start 04/30/18 at 09:49 Lansoprazole (Prevacid) 30 mg BIDAC PEG Last administered on 05/02/18at 14:25; Start 04/30/18 at 10:00; Stop 05/02/18 at 17:22; Status DC Chlorthalidone (Thalitone) 25 mg DAILY PEG Last administered on 05/05/18at 08:14 ; Start 04/30/18 at 10:00 Albuterol Sulfate (Ventolin Neb Soln) 2.5 mg PRN Q4HRS PRN NEB SHORTNESS OF BREATH; Start 04/30/18 at 10:00 Scopolamine (Transderm-Scop) 1 patch Q3DAYS TD Last administered on 05/03/18at 08:41; Start 04/30/18 at 11:00 Scopolamine (Transderm-Scop) 1 patch 1X ONCE TD ; Start 04/30/18 at 10:15; Stop 04/30/18 at 10:16; Status UNV Ceftolozane/ Tazobactam 1500 mg/Sodium Chloride 100 ml @ 100 mls/hr Q8HRS IV Last administered on 05/05/18at 05:28; Start 04/30/18 at 14:00 Budesonide (Pulmicort) 0.5 mg RTBID NEB Last administered on 05/05/18at 07:32; Start 05/01/18 at 10:30 Lansoprazole (Prevacid) 30 mg 0800,2000 PEG Last administered on 05/05/18at 08: 15; Start 05/03/18 at 08:00 Metoclopramide HCl (Reglan Oral Solution) 5 mg 0400,1000,1600,2200 PEG Last administered on 05/05/18at 08:15; Start 05/02/18 at 22:00 Fentanyl (Duragesic 50mcg/ Hr Patch) 1 patch Q3DAYS TD Last administered on at 00:42; Start 05/04/18 at 01:00 Polyethylene Glycol (miraLAX PACKET) 17 gm DAILY PO Last administered on at 08:16; Start 05/04/18 at 16:00 Active Scripts Active Gabapentin 300 Mg Capsule 300 Mg PO TID 30 Days Culturelle (Lactobacillus Rhamnosus Gg) 1 Each Cap.sprink 1 Cap PO BID 30 Days Reported Diovan (Valsartan) 160 Mg Tablet 160 Mg PEG DAILY Pantoprazole Sodium 40 Mg Tablet.dr 40 Mg PEG BID Donepezil Hcl 5 Mg Tablet 5 Mg PEG BID Reglan (Metoclopramide Hcl) 10 Mg Tablet 5 Mg PO QIDAFTMEAL Atenolol-Chlorthal 50-25 Tb (Atenolol/Chlorthalidone) 1 Each Tablet 1 Tab PEG DAILY Cyproheptadine Hcl 2 Mg/5 Ml Syrup 2 Mg PEG BID Percocet 7.5-325 Mg Tablet (Oxycodone/Acetaminophen) 1 Each Tablet 1 Tab PO QID PRN Proair Hfa Inhaler (Albuterol Sulfate) 8.5 Gm Hfa.aer.ad 2 Puff IH PRN Q4-6HRS FENTANYL 50mcg/hr (Fentanyl) 1 Each Patch.td72 1 Patch TP Q3DAYS Ondansetron Odt (Ondansetron) 4 Mg Tab.rapdis 4 Mg PEG QIDPRN PRN Vitals/I & O Vital Sign - Last 24 Hours 05/04/18 05/04/18 05/04/18 05/04/18 11:00 11:40 14:51 15:00 Temp 97.8 97.8 97.8 97.8 Pulse 78 70 Resp 18 16 18 B/P (MAP) 145/82 (103) 135/74 (94) Pulse Ox 95 95 94 O2 Delivery Tracheal Collar Room Air O2 Flow Rate 10.0 10.0 05/04/18 05/04/18 05/04/18 05/04/18 15:15 15:21 19:00 19:36 Temp 98.1 98.1 Pulse 75 Resp 16 18 B/P (MAP) 131/64 (86) Pulse Ox 94 96 97 O2 Delivery Room Air Tracheal Collar O2 Flow Rate 10.0 10.0 10.0 05/04/18 05/04/18 05/04/18 05/04/18 20:00 21:14 22:17 23:00 Temp 98.3 98.3 Pulse 88 Resp 18 B/P (MAP) 117/53 (74) Pulse Ox 94 O2 Delivery Trach Collar Tracheal Collar Tracheal Collar Room Air O2 Flow Rate 10.0 10.0 10.0 10.0 05/05/18 05/05/18 05/05/18 05/05/18 03:00 07:00 07:34 08:00 Temp 98.6 97.5 98.6 97.5 Pulse 68 64 Resp 18 16 B/P (MAP) 145/71 (95) 131/61 (84) Pulse Ox 98 97 O2 Delivery Tracheal Collar Tracheal Collar Trach Collar O2 Flow Rate 10.0 40.0 10.0 10.0 05/05/18 05/05/18 08:14 08:16 Pulse 64 64 B/P (MAP) 131/61 131/61 Intake and Output 05/04/18 05/04/18 05/05/18 15:00 23:00 07:00 Intake Total 840 ml 475 ml 60 ml Output Total 300 ml Balance 840 ml 175 ml 60 ml Nutrition Consultation Dietary Evaluation: Comments: continue bolus TF via PEG Expected Outcomes/Goals: wt maintanence - met within +/1 5 lbs, goal ongoing Malnutrition Findings: Body Fat Depletion (Non Severe: Mild Depletion Weight Status: Underweight CUONG SHIRLEY MD May 05, 2018 10:39
[2018-05-05 11:00] VITALS: BP 98/46
[2018-05-05] MEDS: MORPHINE SULFATE 2 MG/ML VIAL. IV PRN (13:56)
[2018-05-05 15:00] VITALS: BP 114/59
--- NOTE | 2018-05-05 15:48 | RAD ---
EXAM: Chest, single view. HISTORY: Shortness of breath. COMPARISON: 04/29/2018 FINDINGS: A frontal view of the chest is obtained. There is stable diffuse increased interstitial opacity. There is no pleural effusion or pneumothorax. The heart is normal in size. There is a tracheostomy device in expected position. There is a right chest wall port catheter with the tip in the superior vena cava. There are surgical clips overlying the gastroesophageal junction. There is a stent suspected gastrostomy tube. IMPRESSION: Stable diffuse increased interstitial opacity likely due to interstitial infiltrate. Electronically signed by: Argenis Ryan MD (05/05/2018 3:46 PM) [place] [id number]
[2018-05-05 19:00] VITALS: BP 130/38
[2018-05-05] MEDS: oxyCODONE/APAP 7.5/325 1 TAB TABLET PEG PRN (21:04)
[2018-05-05 23:00] VITALS: BP 124/60
[2018-05-06 02:47] VITALS: BP 123/69
[2018-05-06] MEDS: METOCLOPRAMIDE ORAL SOLN 10 MG/10 ML SOLUTION. PEG SCH ×3 (04:21→16:50)
[2018-05-06] MEDS: CEFTOLOZANE/TAZOBACTAM 1,500 MG in IV NORMAL SALINE 100ML 100 ML IV SCH ×3 (04:21→16:49)
[2018-05-06 05:07] LABS: BASO # 0.1 x10^3/uL (0.0-0.2); BASO % 1 % (0-3); EOS # 0.2 x10^3/uL (0.0-0.7); EOS % 3 % (0-3); HEMATOCRIT 33.6 % (36.0-47.0); HEMOGLOBIN 10.6 g/dL (12.0-15.5); LYMPH # 2.4 x10^3/uL (1.0-4.8); LYMPH % 29 % (24-48); MEAN CORPUSCULAR HEMOGLOBIN 26 pg (25-35); MEAN CORPUSCULAR HGB CONC 31 g/dL (31-37); MEAN CORPUSCULAR VOLUME 82 fL (79-100); MONO # 0.5 x10^3/uL (0.0-1.1); MONO % 6 % (0-9); NEUT % 61 % (31-73); PLATELET COUNT 413 x10^3/uL (140-400); RED BLOOD COUNT 4.11 x10^6/uL (3.50-5.40); RED CELL DISTRIBUTION WIDTH 17.7 % (11.5-14.5); WHITE BLOOD COUNT 8.2 x10^3/uL (4.0-11.0)
[2018-05-06 05:45] LABS: ALBUMIN 2.6 g/dL (3.4-5.0); ALBUMIN/GLOBULIN RATIO 0.5 (1.0-1.7); CALCIUM 9.4 mg/dL (8.5-10.1); CREATININE 1.1 mg/dL (0.6-1.0); GFR 58.3; POTASSIUM 3.5 mmol/L (3.5-5.1); TOTAL BILIRUBIN 0.3 mg/dL (0.2-1.0); TOTAL PROTEIN 8.3 g/dL (6.4-8.2)
[2018-05-06 07:00] VITALS: BP 147/72
[2018-05-06] MEDS: IPRATRPIUM/ALBUTEROL 0.5/2.5MG 3 ML NEBU. NEB SCH ×3 (07:40→14:47)
[2018-05-06] MEDS: BUDESONIDE 0.5 MG/2 ML NEBU. NEB SCH (07:40)
[2018-05-06] MEDS: LACTOBACILLUS RHAMNOSUS GG 1 CAPSULE. PO SCH (08:40)
[2018-05-06] MEDS: CYPROHEPTADINE 4 MG TABLET. PEG SCH (08:40)
[2018-05-06] MEDS: ATENOLOL 50 MG TABLET. PEG SCH (08:41)
[2018-05-06] MEDS: CHLORTHALIDONE 25 MG TABLET. PEG SCH (08:41)
[2018-05-06] MEDS: LANSOPRAZOLE 30 MG TAB.RAP.DR PEG SCH (08:42)
[2018-05-06] MEDS: DONEPEZIL HCL 5 MG TABLET. PEG SCH (08:42)
[2018-05-06] MEDS: LOSARTAN POTASSIUM 50 MG TABLET. PEG SCH (08:42)
[2018-05-06] MEDS: ONDANSETRON ODT 4 MG TAB.RAPDIS. PEG PRN ×2 (08:42→12:46)
[2018-05-06] MEDS: POLYETHYLENE GLYCOL 3350 17 GM PACKET. PO SCH (08:43)
[2018-05-06] MEDS: GABAPENTIN 300 MG CAPSULE. PO SCH ×2 (08:43→13:31)
[2018-05-06] MEDS: ENOXAPARIN 40 MG/0.4 ML SYRINGE. SQ SCH (08:43)
[2018-05-06] MEDS: SCOPOLAMINE 1.5MG PATCH. TD SCH (08:43)
--- NOTE | 2018-05-06 10:45 | PDOC ---
PULMONARY PROGRESS NOTES Subjective no new complain Vitals Vital Signs Date Time Temp Pulse Resp B/P (MAP) Pulse Ox O2 Delivery O2 Flow Rate FiO2 05/06/18 08:42 82 147/72 05/06/18 07:48 Trach Collar 10.0 05/06/18 07:00 98.1 16 96 98.1 ROS: No Nausea, No Chest Pain General: Alert, No acute distress HEENT: Other (nc at perrl. nose throat clear. trach site ok) Lungs: Other (decrease bs) Cardiovascular: S1, S2 Abdomen: Soft, Non-tender Neuro Exam: Alert Extremities: No Edema Skin: Warm Labs Laboratory Tests Test 05/06/18 04:50 White Blood Count 8.2 x10^3/uL (4.0-11.0) Red Blood Count 4.11 x10^6/uL (3.50-5.40) Hemoglobin 10.6 g/dL (12.0-15.5) Hematocrit 33.6 % (36.0-47.0) Mean Corpuscular Volume 82 fL (79-100) Mean Corpuscular Hemoglobin 26 pg (25-35) Mean Corpuscular Hemoglobin Concent 31 g/dL (31-37) Red Cell Distribution Width 17.7 % (11.5-14.5) Platelet Count 413 x10^3/uL (140-400) Neutrophils (%) (Auto) 61 % (31-73) Lymphocytes (%) (Auto) 29 % (24-48) Monocytes (%) (Auto) 6 % (0-9) Eosinophils (%) (Auto) 3 % (0-3) Basophils (%) (Auto) 1 % (0-3) Neutrophils # (Auto) 5.0 x10^3uL (1.8-7.7) Lymphocytes # (Auto) 2.4 x10^3/uL (1.0-4.8) Monocytes # (Auto) 0.5 x10^3/uL (0.0-1.1) Eosinophils # (Auto) 0.2 x10^3/uL (0.0-0.7) Basophils # (Auto) 0.1 x10^3/uL (0.0-0.2) Sodium Level 132 mmol/L (136-145) Potassium Level 3.5 mmol/L (3.5-5.1) Chloride Level 96 mmol/L (98-107) Carbon Dioxide Level 27 mmol/L (21-32) Anion Gap 9 (6-14) Blood Urea Nitrogen 22 mg/dL (7-20) Creatinine 1.1 mg/dL (0.6-1.0) Estimated GFR (Cockcroft-Gault) 58.3 BUN/Creatinine Ratio 20 (6-20) Glucose Level 238 mg/dL (70-99) Calcium Level 9.4 mg/dL (8.5-10.1) Total Bilirubin 0.3 mg/dL (0.2-1.0) Aspartate Amino Transf (AST/SGOT) 15 U/L (15-37) Alanine Aminotransferase (ALT/SGPT) 12 U/L (14-59) Alkaline Phosphatase 69 U/L (46-116) Total Protein 8.3 g/dL (6.4-8.2) Albumin 2.6 g/dL (3.4-5.0) Albumin/Globulin Ratio 0.5 (1.0-1.7) Laboratory Tests Test 05/06/18 04:50 White Blood Count 8.2 x10^3/uL (4.0-11.0) Red Blood Count 4.11 x10^6/uL (3.50-5.40) Hemoglobin 10.6 g/dL (12.0-15.5) Hematocrit 33.6 % (36.0-47.0) Mean Corpuscular Volume 82 fL (79-100) Mean Corpuscular Hemoglobin 26 pg (25-35) Mean Corpuscular Hemoglobin Concent 31 g/dL (31-37) Red Cell Distribution Width 17.7 % (11.5-14.5) Platelet Count 413 x10^3/uL (140-400) Neutrophils (%) (Auto) 61 % (31-73) Lymphocytes (%) (Auto) 29 % (24-48) Monocytes (%) (Auto) 6 % (0-9) Eosinophils (%) (Auto) 3 % (0-3) Basophils (%) (Auto) 1 % (0-3) Neutrophils # (Auto) 5.0 x10^3uL (1.8-7.7) Lymphocytes # (Auto) 2.4 x10^3/uL (1.0-4.8) Monocytes # (Auto) 0.5 x10^3/uL (0.0-1.1) Eosinophils # (Auto) 0.2 x10^3/uL (0.0-0.7) Basophils # (Auto) 0.1 x10^3/uL (0.0-0.2) Sodium Level 132 mmol/L (136-145) Potassium Level 3.5 mmol/L (3.5-5.1) Chloride Level 96 mmol/L (98-107) Carbon Dioxide Level 27 mmol/L (21-32) Anion Gap 9 (6-14) Blood Urea Nitrogen 22 mg/dL (7-20) Creatinine 1.1 mg/dL (0.6-1.0) Estimated GFR (Cockcroft-Gault) 58.3 BUN/Creatinine Ratio 20 (6-20) Glucose Level 238 mg/dL (70-99) Calcium Level 9.4 mg/dL (8.5-10.1) Total Bilirubin 0.3 mg/dL (0.2-1.0) Aspartate Amino Transf (AST/SGOT) 15 U/L (15-37) Alanine Aminotransferase (ALT/SGPT) 12 U/L (14-59) Alkaline Phosphatase 69 U/L (46-116) Total Protein 8.3 g/dL (6.4-8.2) Albumin 2.6 g/dL (3.4-5.0) Albumin/Globulin Ratio 0.5 (1.0-1.7) Medications Active Scripts Medications Dose Route/Sig Max Daily Dose Days Date Category Gabapentin 300 Mg Capsule 300 Mg PO TID 30 02/18/18 Rx Culturelle (Lactobacillus Rhamnosus Gg) 1 Each Cap.sprink 1 Cap PO BID 30 07/07/17 Rx Diovan (Valsartan) 160 Mg Tablet 160 Mg PEG DAILY 03/11/17 Reported Pantoprazole Sodium 40 Mg Tablet.dr 40 Mg PEG BID 03/11/17 Reported Donepezil Hcl 5 Mg Tablet 5 Mg PEG BID 03/11/17 Reported Reglan (Metoclopramide Hcl) 10 Mg Tablet 5 Mg PO QIDAFTMEAL 03/11/17 Reported Atenolol-Chlorthal 50-25 Tb (Atenolol/Chlorthalidone) 1 Each Tablet 1 Tab PEG DAILY 03/11/17 Reported Cyproheptadine Hcl 2 Mg/5 Ml Syrup 2 Mg PEG BID 03/11/17 Reported Percocet 7.5-325 Mg Tablet (Oxycodone/Acetaminophen) 1 Each Tablet 1 Tab PO QID PRN 03/11/17 Reported Proair Hfa Inhaler (Albuterol Sulfate) 8.5 Gm Hfa.aer.ad 2 Puff IH PRN Q4-6HRS 08/16/15 Reported FENTANYL 50mcg/hr (Fentanyl) 1 Each Patch.td72 1 Patch TP Q3DAYS 06/19/14 Reported Ondansetron Odt (Ondansetron) 4 Mg Tab.rapdis 4 Mg PEG QIDPRN PRN 06/19/14 Reported Impression . IMPRESSION: 1. Acute on chronic respiratory failure secondary to severe, recurrent tracheobronchitis and suspected left lung pneumonia. This is a patient who had pneumonias with multiple organisms including MRSA and multi-resistant pseudomonas pneumonia recently in March. .now again with MDR PSA 2. History of chronic respiratory failure with chronic tracheostomy. 3. History of laryngeal carcinoma and history of left lung cancer, status post radiation. 4. Leukocytosis. 5. Chronic dysphagia. Plan . 1. Continue with present Trach care with p.r.n. aggressive suction. 2. clinically much better 3. antibiotics per ID. multi-resistant pseudomonas pneumonia .duration of RX per ID 4. Aggressive bronchodilators. ICS 5. Pulmonary toilet. 6. Lovenox, Prevacid for prophylaxis discussed w pt MARY LANIER MD May 06, 2018 10:45
[2018-05-06 11:00] VITALS: BP 130/68
--- NOTE | 2018-05-06 11:09 | PDOC ---
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 14.History of lung cancer. 15.History of laryngeal cancer. 16.GNR in urine from 04/29. UA neg Zerbaxa refusing snf, agrees to home health today History of Present Illness History of Present Illness continue ABx Lovenox for DVT prophylaxis Nutrition consult for tube feeds and PCM severe DuoNeb's Cough medicine Supportive meds Full code PT OT when able slight improvement Vitals Vitals Vital Signs Date Time Temp Pulse Resp B/P (MAP) Pulse Ox O2 Delivery O2 Flow Rate FiO2 05/06/18 11:00 Room Air 05/06/18 08:42 82 147/72 05/06/18 07:48 10.0 05/06/18 07:00 98.1 16 96 98.1 Physical Exam Physical Exam GENERAL: Propped up in bed, weak appearing NECK: Tracheostomy in place, LUNGS: Decreased breath sounds. HEART: S1, S2 regular. ABDOMEN: Soft, nontender, PEG EXTREMITIES: No edema or cyanosis. SKIN: without rash [employer]: Arouses easily to name, nods to questions Port General: Alert, Oriented X3, Cooperative, No acute distress, mild distress Heart: Regular rate, Normal S1, No murmurs Lungs: Other (decrease bs) Abdomen: Normal bowel sounds, Soft, No tenderness, No hepatosplenomegaly, No masses, Other (PEG) Extremities: No clubbing, No cyanosis, No edema, Normal pulses, No tenderness/ swelling Skin: Other (Minimal subcutaneous tissue, senile skin turgor) Labs LABS Laboratory Tests Test 05/06/18 04:50 White Blood Count 8.2 x10^3/uL (4.0-11.0) Red Blood Count 4.11 x10^6/uL (3.50-5.40) Hemoglobin 10.6 g/dL (12.0-15.5) Hematocrit 33.6 % (36.0-47.0) Mean Corpuscular Volume 82 fL (79-100) Mean Corpuscular Hemoglobin 26 pg (25-35) Mean Corpuscular Hemoglobin Concent 31 g/dL (31-37) Red Cell Distribution Width 17.7 % (11.5-14.5) Platelet Count 413 x10^3/uL (140-400) Neutrophils (%) (Auto) 61 % (31-73) Lymphocytes (%) (Auto) 29 % (24-48) Monocytes (%) (Auto) 6 % (0-9) Eosinophils (%) (Auto) 3 % (0-3) Basophils (%) (Auto) 1 % (0-3) Neutrophils # (Auto) 5.0 x10^3uL (1.8-7.7) Lymphocytes # (Auto) 2.4 x10^3/uL (1.0-4.8) Monocytes # (Auto) 0.5 x10^3/uL (0.0-1.1) Eosinophils # (Auto) 0.2 x10^3/uL (0.0-0.7) Basophils # (Auto) 0.1 x10^3/uL (0.0-0.2) Sodium Level 132 mmol/L (136-145) Potassium Level 3.5 mmol/L (3.5-5.1) Chloride Level 96 mmol/L (98-107) Carbon Dioxide Level 27 mmol/L (21-32) Anion Gap 9 (6-14) Blood Urea Nitrogen 22 mg/dL (7-20) Creatinine 1.1 mg/dL (0.6-1.0) Estimated GFR (Cockcroft-Gault) 58.3 BUN/Creatinine Ratio 20 (6-20) Glucose Level 238 mg/dL (70-99) Calcium Level 9.4 mg/dL (8.5-10.1) Total Bilirubin 0.3 mg/dL (0.2-1.0) Aspartate Amino Transf (AST/SGOT) 15 U/L (15-37) Alanine Aminotransferase (ALT/SGPT) 12 U/L (14-59) Alkaline Phosphatase 69 U/L (46-116) Total Protein 8.3 g/dL (6.4-8.2) Albumin 2.6 g/dL (3.4-5.0) Albumin/Globulin Ratio 0.5 (1.0-1.7) Assessment and Plan Assessmemt and Plan Problems Medical Problems: (1) Chronic respiratory failure Status: Acute (2) Dyspnea Status: Acute Comment Review of Relevant I have reviewed the following items miko (where applicable) has been applied. Labs Laboratory Tests Test 05/06/18 04:50 White Blood Count 8.2 x10^3/uL (4.0-11.0) Red Blood Count 4.11 x10^6/uL (3.50-5.40) Hemoglobin 10.6 g/dL (12.0-15.5) Hematocrit 33.6 % (36.0-47.0) Mean Corpuscular Volume 82 fL (79-100) Mean Corpuscular Hemoglobin 26 pg (25-35) Mean Corpuscular Hemoglobin Concent 31 g/dL (31-37) Red Cell Distribution Width 17.7 % (11.5-14.5) Platelet Count 413 x10^3/uL (140-400) Neutrophils (%) (Auto) 61 % (31-73) Lymphocytes (%) (Auto) 29 % (24-48) Monocytes (%) (Auto) 6 % (0-9) Eosinophils (%) (Auto) 3 % (0-3) Basophils (%) (Auto) 1 % (0-3) Neutrophils # (Auto) 5.0 x10^3uL (1.8-7.7) Lymphocytes # (Auto) 2.4 x10^3/uL (1.0-4.8) Monocytes # (Auto) 0.5 x10^3/uL (0.0-1.1) Eosinophils # (Auto) 0.2 x10^3/uL (0.0-0.7) Basophils # (Auto) 0.1 x10^3/uL (0.0-0.2) Sodium Level 132 mmol/L (136-145) Potassium Level 3.5 mmol/L (3.5-5.1) Chloride Level 96 mmol/L (98-107) Carbon Dioxide Level 27 mmol/L (21-32) Anion Gap 9 (6-14) Blood Urea Nitrogen 22 mg/dL (7-20) Creatinine 1.1 mg/dL (0.6-1.0) Estimated GFR (Cockcroft-Gault) 58.3 BUN/Creatinine Ratio 20 (6-20) Glucose Level 238 mg/dL (70-99) Calcium Level 9.4 mg/dL (8.5-10.1) Total Bilirubin 0.3 mg/dL (0.2-1.0) Aspartate Amino Transf (AST/SGOT) 15 U/L (15-37) Alanine Aminotransferase (ALT/SGPT) 12 U/L (14-59) Alkaline Phosphatase 69 U/L (46-116) Total Protein 8.3 g/dL (6.4-8.2) Albumin 2.6 g/dL (3.4-5.0) Albumin/Globulin Ratio 0.5 (1.0-1.7) Laboratory Tests Test 05/06/18 04:50 White Blood Count 8.2 x10^3/uL (4.0-11.0) Red Blood Count 4.11 x10^6/uL (3.50-5.40) Hemoglobin 10.6 g/dL (12.0-15.5) Hematocrit 33.6 % (36.0-47.0) Mean Corpuscular Volume 82 fL (79-100) Mean Corpuscular Hemoglobin 26 pg (25-35) Mean Corpuscular Hemoglobin Concent 31 g/dL (31-37) Red Cell Distribution Width 17.7 % (11.5-14.5) Platelet Count 413 x10^3/uL (140-400) Neutrophils (%) (Auto) 61 % (31-73) Lymphocytes (%) (Auto) 29 % (24-48) Monocytes (%) (Auto) 6 % (0-9) Eosinophils (%) (Auto) 3 % (0-3) Basophils (%) (Auto) 1 % (0-3) Neutrophils # (Auto) 5.0 x10^3uL (1.8-7.7) Lymphocytes # (Auto) 2.4 x10^3/uL (1.0-4.8) Monocytes # (Auto) 0.5 x10^3/uL (0.0-1.1) Eosinophils # (Auto) 0.2 x10^3/uL (0.0-0.7) Basophils # (Auto) 0.1 x10^3/uL (0.0-0.2) Sodium Level 132 mmol/L (136-145) Potassium Level 3.5 mmol/L (3.5-5.1) Chloride Level 96 mmol/L (98-107) Carbon Dioxide Level 27 mmol/L (21-32) Anion Gap 9 (6-14) Blood Urea Nitrogen 22 mg/dL (7-20) Creatinine 1.1 mg/dL (0.6-1.0) Estimated GFR (Cockcroft-Gault) 58.3 BUN/Creatinine Ratio 20 (6-20) Glucose Level 238 mg/dL (70-99) Calcium Level 9.4 mg/dL (8.5-10.1) Total Bilirubin 0.3 mg/dL (0.2-1.0) Aspartate Amino Transf (AST/SGOT) 15 U/L (15-37) Alanine Aminotransferase (ALT/SGPT) 12 U/L (14-59) Alkaline Phosphatase 69 U/L (46-116) Total Protein 8.3 g/dL (6.4-8.2) Albumin 2.6 g/dL (3.4-5.0) Albumin/Globulin Ratio 0.5 (1.0-1.7) Microbiology 04/29/18 Blood Culture - Final, Complete NO GROWTH AFTER 5 DAYS 04/30/18 - Final, Complete 04/30/18 - Final, Complete 04/30/18 - Final, Complete 04/30/18 Gram Stain Evaluation - Final, Complete 04/30/18 Sputum Culture - Final, Complete 04/30/18 Sputum Result 1 - Final, Complete 04/30/18 Sputum Result 2 - Final, Complete 04/30/18 Antimicrobic Susceptibility - Final, Complete 04/29/18 Urine Culture - Final, Complete 04/29/18 Urine Culture Result 1 (VANITA) - Final, Complete Medications Current Medications Albuterol/ Ipratropium (Duoneb) 3 ml 1X ONCE NEB Last administered on at 17:56; Start 04/29/18 at 17:45; Stop 04/29/18 at 17:46; Status DC Piperacillin Sod/ Tazobactam Sod (Zosyn Per Pharmacy) 1 each PRN DAILY PRN MC SEE COMMENTS; Start 04/29/18 at 19:30; Stop 05/01/18 at 14:22; Status DC Vancomycin HCl (Vanco Per Pharmacy) 1 each PRN DAILY PRN MC SEE COMMENTS Last administered on 04/30/18at 01:00; Start 04/29/18 at 19:30; Stop 04/30/18 at 12:28 ; Status DC Piperacillin Sod/ Tazobactam Sod 4.5 gm/Sodium Chloride 100 ml @ 200 mls/hr 1X ONCE IV Last administered on 04/29/18at 19:56; Start 04/29/18 at 19:45; Stop 04/29/18 at 20:14; Status DC Vancomycin HCl 1.25 gm/Sodium Chloride 250 ml @ 167 mls/hr ONCE ONCE IV Last administered on 04/29/18at 19:56; Start 04/29/18 at 20:00; Stop 04/29/18 at 21:29 ; Status DC Oxycodone/ Acetaminophen (Percocet 7.5/ 325) 1 tab 1X ONCE PO Last administered on 04/29/18at 21:44; Start 04/29/18 at 21:15; Stop 04/29/18 at 21:16 ; Status DC Piperacillin Sod/ Tazobactam Sod 2.25 gm/Sodium Chloride 50 ml @ 100 mls/hr Q6HRS IV Last administered on 04/30/18at 11:44; Start 04/30/18 at 06:00; Stop at 12:12; Status DC Vancomycin HCl 1 gm/Sodium Chloride 250 ml @ 250 mls/hr Q24H IV ; Start at 20:00; Stop 04/30/18 at 20:00; Status DC Vancomycin HCl (Vancomycin Trough Level) 1 each 1X ONCE MC ; Start 05/01/18 at 19:30; Stop 05/01/18 at 19:30; Status DC Lactobacillus Rhamnosus (Culturelle) 1 cap BID PO ; Start 04/30/18 at 09:00; Status Cancel Acetaminophen (Tylenol) 650 mg PRN Q6HRS PRN PEG MILD PAIN / TEMP; Start at 08:45 Ondansetron HCl (Zofran) 4 mg PRN Q6HRS PRN IV NAUSEA/VOMITING Last administered on 05/05/18at 09:04; Start 04/30/18 at 08:45 Ondansetron HCl (Zofran Odt) 4 mg PRN Q6HRS PRN PO NAUSEA/VOMITING; Start 04/30 at 08:45; Status Cancel Fentanyl (Duragesic 50mcg/ Hr Patch) 1 patch Q3DAYS TD Last administered on 08:42; Start 04/30/18 at 10:00; Stop 05/04/18 at 00:35; Status DC Lactobacillus Rhamnosus (Culturelle) 1 cap BID PO Last administered on at 08:40; Start 04/30/18 at 10:00 Metoclopramide HCl (Reglan) 5 mg QIDAFTMEAL PO ; Start 04/30/18 at 09:45; Stop 04/30/18 at 09:47; Status DC Ondansetron HCl (Zofran Odt) 4 mg QIDPRN PRN PEG NAUSEA/VOMITING Last administered on 05/06/18 08:42; Start 04/30/18 at 08:45 Oxycodone/ Acetaminophen (Percocet 7.5/ 325) 1 tab PRN QID PRN PO MODERATE TO SEVERE PAIN; Start 04/30/18 at 08:45; Stop 04/30/18 at 09:49; Status DC Pantoprazole Sodium (Protonix) 40 mg BIDAC PO ; Start 04/30/18 at 09:45; Stop at 09:52; Status DC Non-Formulary Medication (Albuterol Sulfate (Proair Hfa Inhaler)) 2 puff PRN Q4- 6HRS IH ; Start 04/30/18 at 08:45; Status UNV Atenolol (Tenormin) 50 mg DAILY PEG Last administered on 05/06/18at 08:41; Start 04/30/18 at 10:00 Cyproheptadine HCl (Periactin) 2 mg BID PO ; Start 04/30/18 at 09:45; Stop 04/30 at 09:48; Status DC Donepezil HCl (Aricept) 5 mg BID PEG Last administered on 05/06/18at 08:42; Start 05/01/18 at 10:00 Gabapentin (Neurontin) 300 mg TID PO Last administered on 05/06/18 08:43; Start 04/30/18 at 10:00 Losartan Potassium (Cozaar) 100 mg DAILY PEG Last administered on 05/06/18at 08: 42; Start 05/01/18 at 09:00 Enoxaparin Sodium (Lovenox 40mg Syringe) 40 mg Q24H SQ Last administered on 08:43; Start 04/30/18 at 10:00 Morphine Sulfate (Morphine Sulfate) 1 mg PRN Q2HR PRN IV PAIN Last administered on 05/05/18 13:56; Start 04/30/18 at 08:45 Albuterol/ Ipratropium (Duoneb) 3 ml RTQID NEB Last administered on 05/06/18 11:00; Start 04/30/18 at 12:00 Guaifenesin (Robitussin Dm) 10 ml PRN Q6HRS PRN PO COUGH; Start 04/30/18 at 08: 45; Stop 04/30/18 at 09:48; Status DC Metoclopramide HCl (Reglan Oral Solution) 5 mg QIDAFTMEAL PEG Last administered on 05/02/18 16:50; Start 04/30/18 at 09:47; Stop 05/02/18 at 17:22 ; Status DC Cyproheptadine HCl (Periactin) 2 mg BID PEG Last administered on 05/06/18 08: 40; Start 04/30/18 at 09:48 Guaifenesin (Robitussin Dm) 10 ml PRN Q6HRS PRN PEG COUGH; Start 04/30/18 at 09 :48 Oxycodone/ Acetaminophen (Percocet 7.5/ 325) 1 tab PRN QID PRN PEG MODERATE TO SEVERE PAIN Last administered on 05/05/18 21:04; Start 04/30/18 at 09:49 Lansoprazole (Prevacid) 30 mg BIDAC PEG Last administered on 05/02/18at 14:25; Start 04/30/18 at 10:00; Stop 05/02/18 at 17:22; Status DC Chlorthalidone (Thalitone) 25 mg DAILY PEG Last administered on 05/06/18 08:41 ; Start 04/30/18 at 10:00 Albuterol Sulfate (Ventolin Neb Soln) 2.5 mg PRN Q4HRS PRN NEB SHORTNESS OF BREATH; Start 04/30/18 at 10:00 Scopolamine (Transderm-Scop) 1 patch Q3DAYS TD Last administered on 05/06/18 08:43; Start 04/30/18 at 11:00 Scopolamine (Transderm-Scop) 1 patch 1X ONCE TD ; Start 04/30/18 at 10:15; Stop 04/30/18 at 10:16; Status UNV Ceftolozane/ Tazobactam 1500 mg/Sodium Chloride 100 ml @ 100 mls/hr Q8HRS IV Last administered on 05/06/18at 04:21; Start 04/30/18 at 14:00 Budesonide (Pulmicort) 0.5 mg RTBID NEB Last administered on 05/06/18at 07:40; Start 05/01/18 at 10:30 Lansoprazole (Prevacid) 30 mg 0800,2000 PEG Last administered on 05/06/18 08: 42; Start 05/03/18 at 08:00 Metoclopramide HCl (Reglan Oral Solution) 5 mg 0400,1000,1600,2200 PEG Last administered on 05/06/18at 08:41; Start 05/02/18 at 22:00 Fentanyl (Duragesic 50mcg/ Hr Patch) 1 patch Q3DAYS TD Last administered on at 00:42; Start 05/04/18 at 01:00 Polyethylene Glycol (miraLAX PACKET) 17 gm DAILY PO Last administered on at 08:43; Start 05/04/18 at 16:00 Active Scripts Active Gabapentin 300 Mg Capsule 300 Mg PO TID 30 Days Culturelle (Lactobacillus Rhamnosus Gg) 1 Each Cap.sprink 1 Cap PO BID 30 Days Reported Diovan (Valsartan) 160 Mg Tablet 160 Mg PEG DAILY Pantoprazole Sodium 40 Mg Tablet.dr 40 Mg PEG BID Donepezil Hcl 5 Mg Tablet 5 Mg PEG BID Reglan (Metoclopramide Hcl) 10 Mg Tablet 5 Mg PO QIDAFTMEAL Atenolol-Chlorthal 50-25 Tb (Atenolol/Chlorthalidone) 1 Each Tablet 1 Tab PEG DAILY Cyproheptadine Hcl 2 Mg/5 Ml Syrup 2 Mg PEG BID Percocet 7.5-325 Mg Tablet (Oxycodone/Acetaminophen) 1 Each Tablet 1 Tab PO QID PRN Proair Hfa Inhaler (Albuterol Sulfate) 8.5 Gm Hfa.aer.ad 2 Puff IH PRN Q4-6HRS FENTANYL 50mcg/hr (Fentanyl) 1 Each Patch.td72 1 Patch TP Q3DAYS Ondansetron Odt (Ondansetron) 4 Mg Tab.rapdis 4 Mg PEG QIDPRN PRN Vitals/I & O Vital Sign - Last 24 Hours 05/05/18 05/05/18 05/05/18 05/05/18 11:20 13:56 14:43 15:00 Temp 97.7 97.7 Pulse 87 Resp 18 B/P (MAP) 114/59 (77) Pulse Ox 97 40 40 98 O2 Delivery Tracheal Collar Tracheal Collar Tracheal Collar Tracheal Collar O2 Flow Rate 10.0 10.0 10.0 40.0 05/05/18 05/05/18 05/05/18 05/05/18 16:11 19:00 19:54 20:00 Temp 97.8 97.8 Pulse 77 Resp 16 B/P (MAP) 130/38 (68) Pulse Ox 93 O2 Delivery Tracheal Collar Tracheal Collar Tracheal Collar Trach Collar O2 Flow Rate 10.0 40.0 10.0 10.0 05/05/18 05/05/18 05/05/18 05/05/18 21:04 22:04 23:00 23:10 Pulse 82 Resp 18 18 17 B/P (MAP) 124/60 (81) Pulse Ox 93 93 98 98 O2 Delivery Tracheal Collar O2 Flow Rate 10.0 10.0 40.0 10.0 05/06/18 05/06/18 05/06/18 05/06/18 02:47 07:00 07:42 07:48 Temp 98.3 98.1 98.3 98.1 Pulse 68 82 Resp 18 16 B/P (MAP) 123/69 (87) 147/72 (97) Pulse Ox 98 96 O2 Delivery Tracheal Collar Tracheal Collar Tracheal Collar Trach Collar O2 Flow Rate 10.0 10.0 05/06/18 05/06/18 05/06/18 08:41 08:42 11:00 Pulse 82 82 B/P (MAP) 147/72 147/72 O2 Delivery Room Air Intake and Output 05/05/18 05/05/18 05/06/18 15:00 23:00 07:00 Intake Total 660 ml 450 ml 450 ml Balance 660 ml 450 ml 450 ml Nutrition Consultation Dietary Evaluation: Comments: continue bolus TF via PEG Expected Outcomes/Goals: wt maintanence - met within +/1 5 lbs, goal ongoing Malnutrition Findings: Body Fat Depletion (Non Severe: Mild Depletion Weight Status: Underweight CUONG SHIRLEY MD May 06, 2018 11:09
[2018-05-06] MEDS: oxyCODONE/APAP 7.5/325 1 TAB TABLET PEG PRN (12:45)
--- NOTE | 2018-05-06 13:17 | PDOC3 ---
Discharge Summary Date of Admission: Apr 29, 2018 Date of Discharge: May 06, 2018 Follow-Up: 1-2 days Admitting Diagnosis comment: discharge diagnosis Chief Complaint 1.Acute hypercapnic respiratory failure on top of chronic respiratory failure, chronically trached 2.marked resp secretions 3.History of H,CAP and multi drug resistant organism SPUTUM CULT RES 1 Final Comment Carbapenem-resistant Pseudomonas aeruginosa 4.Atelectasis 5.Small pleural effusion 6.Cachexia 7.Chronic dysphagia, chronically PEG on tube feeds 8.Severe PCM 9.Allergies to aspirin 10.History bacteremia 11.Full code 12.Anemia of chronic disease 13.Leukocytosis. 14.History of lung cancer. 15.History of laryngeal cancer. 16.GNR in urine from 04/29. UA neg Zerbaxa refusing snf, agrees to home health today History of Present Illness History of Present Illness continue ABx Lovenox for DVT prophylaxis Nutrition consult for tube feeds and PCM severe DuoNeb's Cough medicine Supportive meds Full code PT OT when able slight improvement Vitals Vitals Vital Signs Date Time Temp Pulse Resp B/P (MAP) Pulse Ox O2 Delivery O2 Flow Rate FiO2 05/06/18 11:00 Room Air 05/06/18 08:42 82 147/72 05/06/18 07:48 10.0 05/06/18 07:00 98.1 16 96 98.1 Physical Exam Physical Exam GENERAL: awake, good spirits NECK: Tracheostomy in place, LUNGS: Decreased breath sounds. HEART: S1, S2 regular. ABDOMEN: Soft, nontender, PEG EXTREMITIES: No edema or cyanosis. SKIN: without rash General: Alert, Oriented X3, Cooperative, No acute distress, Heart: Regular rate, Normal S1, No murmurs Lungs: Other (decrease bs) Abdomen: Normal bowel sounds, Soft, No tenderness, No hepatosplenomegaly, No masses, Other (PEG) Extremities: No clubbing, No cyanosis, No edema, Normal pulses, No tenderness/ swelling Skin: Other (Minimal subcutaneous tissue, senile skin turgor) Labs FINAL DIAGNOSIS Problems Medical Problems: (1) Chronic respiratory failure Status: Acute (2) Dyspnea Status: Acute GRAM STAIN WHITE BLOOD CELLS Final None seen GRAM STAIN EPITHELIAL CELLS Final None seen GRAM STAIN RESULT 1 Final Comment Few gram negative rods. GRAM STAIN EVALUATION Final Comment This specimen is of good quality and is acceptable for routine bacterial culture. Performed at: - [facility] [place] [address], [place], [place] [id number] Traveling Inventory Associate: YANG Lawrence MD, Phone: [phone] SPUTUM CULTURE-LC Final Final report SPUTUM CULT RES 1 Final Comment Carbapenem-resistant Pseudomonas aeruginosa 1+ Multi-Drug Resistant Organism * This is a corrected result. * A prior result that was reported as final has been changed. Brief Hospital Course Ms. Ch is a 78 old [sex] who presented with [ ] Discharge Medications Current Medications Albuterol/ Ipratropium (Duoneb) 3 ml 1X ONCE NEB Last administered on at 17:56; Start 04/29/18 at 17:45; Stop 04/29/18 at 17:46; Status DC Piperacillin Sod/ Tazobactam Sod (Zosyn Per Pharmacy) 1 each PRN DAILY PRN MC SEE COMMENTS; Start 04/29/18 at 19:30; Stop 05/01/18 at 14:22; Status DC Vancomycin HCl (Vanco Per Pharmacy) 1 each PRN DAILY PRN MC SEE COMMENTS Last administered on 04/30/18at 01:00; Start 04/29/18 at 19:30; Stop 04/30/18 at 12:28 ; Status DC Piperacillin Sod/ Tazobactam Sod 4.5 gm/Sodium Chloride 100 ml @ 200 mls/hr 1X ONCE IV Last administered on 04/29/18at 19:56; Start 04/29/18 at 19:45; Stop 04/29/18 at 20:14; Status DC Vancomycin HCl 1.25 gm/Sodium Chloride 250 ml @ 167 mls/hr ONCE ONCE IV Last administered on 04/29/18at 19:56; Start 04/29/18 at 20:00; Stop 04/29/18 at 21:29 ; Status DC Oxycodone/ Acetaminophen (Percocet 7.5/ 325) 1 tab 1X ONCE PO Last administered on 04/29/18at 21:44; Start 04/29/18 at 21:15; Stop 04/29/18 at 21:16 ; Status DC Piperacillin Sod/ Tazobactam Sod 2.25 gm/Sodium Chloride 50 ml @ 100 mls/hr Q6HRS IV Last administered on 04/30/18at 11:44; Start 04/30/18 at 06:00; Stop at 12:12; Status DC Vancomycin HCl 1 gm/Sodium Chloride 250 ml @ 250 mls/hr Q24H IV ; Start at 20:00; Stop 04/30/18 at 20:00; Status DC Vancomycin HCl (Vancomycin Trough Level) 1 each 1X ONCE MC ; Start 05/01/18 at 19:30; Stop 05/01/18 at 19:30; Status DC Lactobacillus Rhamnosus (Culturelle) 1 cap BID PO ; Start 04/30/18 at 09:00; Status Cancel Acetaminophen (Tylenol) 650 mg PRN Q6HRS PRN PEG MILD PAIN / TEMP; Start at 08:45 Ondansetron HCl (Zofran) 4 mg PRN Q6HRS PRN IV NAUSEA/VOMITING Last administered on 05/05/18at 09:04; Start 04/30/18 at 08:45 Ondansetron HCl (Zofran Odt) 4 mg PRN Q6HRS PRN PO NAUSEA/VOMITING; Start 04/30 at 08:45; Status Cancel Fentanyl (Duragesic 50mcg/ Hr Patch) 1 patch Q3DAYS TD Last administered on at 08:42; Start 04/30/18 at 10:00; Stop 05/04/18 at 00:35; Status DC Lactobacillus Rhamnosus (Culturelle) 1 cap BID PO Last administered on at 08:40; Start 04/30/18 at 10:00 Metoclopramide HCl (Reglan) 5 mg QIDAFTMEAL PO ; Start 04/30/18 at 09:45; Stop 04/30/18 at 09:47; Status DC Ondansetron HCl (Zofran Odt) 4 mg QIDPRN PRN PEG NAUSEA/VOMITING Last administered on 05/06/18at 12:46; Start 04/30/18 at 08:45 Oxycodone/ Acetaminophen (Percocet 7.5/ 325) 1 tab PRN QID PRN PO MODERATE TO SEVERE PAIN; Start 04/30/18 at 08:45; Stop 04/30/18 at 09:49; Status DC Pantoprazole Sodium (Protonix) 40 mg BIDAC PO ; Start 04/30/18 at 09:45; Stop at 09:52; Status DC Non-Formulary Medication (Albuterol Sulfate (Proair Hfa Inhaler)) 2 puff PRN Q4- 6HRS IH ; Start 04/30/18 at 08:45; Status UNV Atenolol (Tenormin) 50 mg DAILY PEG Last administered on 05/06/18 08:41; Start 04/30/18 at 10:00 Cyproheptadine HCl (Periactin) 2 mg BID PO ; Start 04/30/18 at 09:45; Stop 04/30 at 09:48; Status DC Donepezil HCl (Aricept) 5 mg BID PEG Last administered on 05/06/18at 08:42; Start 05/01/18 at 10:00 Gabapentin (Neurontin) 300 mg TID PO Last administered on 05/06/18 08:43; Start 04/30/18 at 10:00 Losartan Potassium (Cozaar) 100 mg DAILY PEG Last administered on 05/06/18 08: 42; Start 05/01/18 at 09:00 Enoxaparin Sodium (Lovenox 40mg Syringe) 40 mg Q24H SQ Last administered on 08:43; Start 04/30/18 at 10:00 Morphine Sulfate (Morphine Sulfate) 1 mg PRN Q2HR PRN IV PAIN Last administered on 05/05/18 13:56; Start 04/30/18 at 08:45 Albuterol/ Ipratropium (Duoneb) 3 ml RTQID NEB Last administered on 05/06/18at 11:00; Start 04/30/18 at 12:00 Guaifenesin (Robitussin Dm) 10 ml PRN Q6HRS PRN PO COUGH; Start 04/30/18 at 08: 45; Stop 04/30/18 at 09:48; Status DC Metoclopramide HCl (Reglan Oral Solution) 5 mg QIDAFTMEAL PEG Last administered on 05/02/18 16:50; Start 04/30/18 at 09:47; Stop 05/02/18 at 17:22 ; Status DC Cyproheptadine HCl (Periactin) 2 mg BID PEG Last administered on 05/06/18 08: 40; Start 04/30/18 at 09:48 Guaifenesin (Robitussin Dm) 10 ml PRN Q6HRS PRN PEG COUGH; Start 04/30/18 at 09 :48 Oxycodone/ Acetaminophen (Percocet 7.5/ 325) 1 tab PRN QID PRN PEG MODERATE TO SEVERE PAIN Last administered on 05/06/18 12:45; Start 04/30/18 at 09:49 Lansoprazole (Prevacid) 30 mg BIDAC PEG Last administered on 05/02/18 14:25; Start 04/30/18 at 10:00; Stop 05/02/18 at 17:22; Status DC Chlorthalidone (Thalitone) 25 mg DAILY PEG Last administered on 05/06/18 08:41 ; Start 04/30/18 at 10:00 Albuterol Sulfate (Ventolin Neb Soln) 2.5 mg PRN Q4HRS PRN NEB SHORTNESS OF BREATH; Start 04/30/18 at 10:00 Scopolamine (Transderm-Scop) 1 patch Q3DAYS TD Last administered on 05/06/18 08:43; Start 04/30/18 at 11:00 Scopolamine (Transderm-Scop) 1 patch 1X ONCE TD ; Start 04/30/18 at 10:15; Stop 04/30/18 at 10:16; Status UNV Ceftolozane/ Tazobactam 1500 mg/Sodium Chloride 100 ml @ 100 mls/hr Q8HRS IV Last administered on 05/06/18 04:21; Start 04/30/18 at 14:00 Budesonide (Pulmicort) 0.5 mg RTBID NEB Last administered on 05/06/18 07:40; Start 05/01/18 at 10:30 Lansoprazole (Prevacid) 30 mg 0800,2000 PEG Last administered on 05/06/18 08: 42; Start 05/03/18 at 08:00 Metoclopramide HCl (Reglan Oral Solution) 5 mg 0400,1000,1600,2200 PEG Last administered on 05/06/18at 08:41; Start 05/02/18 at 22:00 Fentanyl (Duragesic 50mcg/ Hr Patch) 1 patch Q3DAYS TD Last administered on at 00:42; Start 05/04/18 at 01:00 Polyethylene Glycol (miraLAX PACKET) 17 gm DAILY PO Last administered on at 08:43; Start 05/04/18 at 16:00 Active Scripts Active Gabapentin 300 Mg Capsule 300 Mg PO TID 30 Days Culturelle (Lactobacillus Rhamnosus Gg) 1 Each Cap.sprink 1 Cap PO BID 30 Days Reported Diovan (Valsartan) 160 Mg Tablet 160 Mg PEG DAILY Pantoprazole Sodium 40 Mg Tablet.dr 40 Mg PEG BID Donepezil Hcl 5 Mg Tablet 5 Mg PEG BID Reglan (Metoclopramide Hcl) 10 Mg Tablet 5 Mg PO QIDAFTMEAL Atenolol-Chlorthal 50-25 Tb (Atenolol/Chlorthalidone) 1 Each Tablet 1 Tab PEG DAILY Cyproheptadine Hcl 2 Mg/5 Ml Syrup 2 Mg PEG BID Percocet 7.5-325 Mg Tablet (Oxycodone/Acetaminophen) 1 Each Tablet 1 Tab PO QID PRN Proair Hfa Inhaler (Albuterol Sulfate) 8.5 Gm Hfa.aer.ad 2 Puff IH PRN Q4-6HRS FENTANYL 50mcg/hr (Fentanyl) 1 Each Patch.td72 1 Patch TP Q3DAYS Ondansetron Odt (Ondansetron) 4 Mg Tab.rapdis 4 Mg PEG QIDPRN PRN Vital Signs Vital Signs Date Time Temp Pulse Resp B/P (MAP) Pulse Ox O2 Delivery O2 Flow Rate FiO2 05/06/18 12:45 40 Tracheal Collar 10.0 05/06/18 11:00 97.9 71 16 130/68 (88) 97.9 Labs Laboratory Tests Test 05/06/18 04:50 White Blood Count 8.2 x10^3/uL (4.0-11.0) Red Blood Count 4.11 x10^6/uL (3.50-5.40) Hemoglobin 10.6 g/dL (12.0-15.5) Hematocrit 33.6 % (36.0-47.0) Mean Corpuscular Volume 82 fL (79-100) Mean Corpuscular Hemoglobin 26 pg (25-35) Mean Corpuscular Hemoglobin Concent 31 g/dL (31-37) Red Cell Distribution Width 17.7 % (11.5-14.5) Platelet Count 413 x10^3/uL (140-400) Neutrophils (%) (Auto) 61 % (31-73) Lymphocytes (%) (Auto) 29 % (24-48) Monocytes (%) (Auto) 6 % (0-9) Eosinophils (%) (Auto) 3 % (0-3) Basophils (%) (Auto) 1 % (0-3) Neutrophils # (Auto) 5.0 x10^3uL (1.8-7.7) Lymphocytes # (Auto) 2.4 x10^3/uL (1.0-4.8) Monocytes # (Auto) 0.5 x10^3/uL (0.0-1.1) Eosinophils # (Auto) 0.2 x10^3/uL (0.0-0.7) Basophils # (Auto) 0.1 x10^3/uL (0.0-0.2) Sodium Level 132 mmol/L (136-145) Potassium Level 3.5 mmol/L (3.5-5.1) Chloride Level 96 mmol/L (98-107) Carbon Dioxide Level 27 mmol/L (21-32) Anion Gap 9 (6-14) Blood Urea Nitrogen 22 mg/dL (7-20) Creatinine 1.1 mg/dL (0.6-1.0) Estimated GFR (Cockcroft-Gault) 58.3 BUN/Creatinine Ratio 20 (6-20) Glucose Level 238 mg/dL (70-99) Calcium Level 9.4 mg/dL (8.5-10.1) Total Bilirubin 0.3 mg/dL (0.2-1.0) Aspartate Amino Transf (AST/SGOT) 15 U/L (15-37) Alanine Aminotransferase (ALT/SGPT) 12 U/L (14-59) Alkaline Phosphatase 69 U/L (46-116) Total Protein 8.3 g/dL (6.4-8.2) Albumin 2.6 g/dL (3.4-5.0) Albumin/Globulin Ratio 0.5 (1.0-1.7) Laboratory Tests Test 05/06/18 04:50 White Blood Count 8.2 x10^3/uL (4.0-11.0) Red Blood Count 4.11 x10^6/uL (3.50-5.40) Hemoglobin 10.6 g/dL (12.0-15.5) Hematocrit 33.6 % (36.0-47.0) Mean Corpuscular Volume 82 fL (79-100) Mean Corpuscular Hemoglobin 26 pg (25-35) Mean Corpuscular Hemoglobin Concent 31 g/dL (31-37) Red Cell Distribution Width 17.7 % (11.5-14.5) Platelet Count 413 x10^3/uL (140-400) Neutrophils (%) (Auto) 61 % (31-73) Lymphocytes (%) (Auto) 29 % (24-48) Monocytes (%) (Auto) 6 % (0-9) Eosinophils (%) (Auto) 3 % (0-3) Basophils (%) (Auto) 1 % (0-3) Neutrophils # (Auto) 5.0 x10^3uL (1.8-7.7) Lymphocytes # (Auto) 2.4 x10^3/uL (1.0-4.8) Monocytes # (Auto) 0.5 x10^3/uL (0.0-1.1) Eosinophils # (Auto) 0.2 x10^3/uL (0.0-0.7) Basophils # (Auto) 0.1 x10^3/uL (0.0-0.2) Sodium Level 132 mmol/L (136-145) Potassium Level 3.5 mmol/L (3.5-5.1) Chloride Level 96 mmol/L (98-107) Carbon Dioxide Level 27 mmol/L (21-32) Anion Gap 9 (6-14) Blood Urea Nitrogen 22 mg/dL (7-20) Creatinine 1.1 mg/dL (0.6-1.0) Estimated GFR (Cockcroft-Gault) 58.3 BUN/Creatinine Ratio 20 (6-20) Glucose Level 238 mg/dL (70-99) Calcium Level 9.4 mg/dL (8.5-10.1) Total Bilirubin 0.3 mg/dL (0.2-1.0) Aspartate Amino Transf (AST/SGOT) 15 U/L (15-37) Alanine Aminotransferase (ALT/SGPT) 12 U/L (14-59) Alkaline Phosphatase 69 U/L (46-116) Total Protein 8.3 g/dL (6.4-8.2) Albumin 2.6 g/dL (3.4-5.0) Albumin/Globulin Ratio 0.5 (1.0-1.7) Allergies Allergies Coded Allergies Type Severity Reaction Last Updated Verified aspirin Allergy Intermediate hives 03/16/17 Yes I S O L A T I O N *CONTACT* Allergy Unknown 02/15/18 Yes Disposition/Orders: D/C to Home w/ HH Patient Instructions d/c planning 35 min CUONG SHIRLEY MD May 06, 2018 13:17
[2018-05-06 15:00] VITALS: BP 86/49
[2018-05-06] MEDS ORDERED: HEPARIN PF 500 UNIT/5 ML DISP.SYRIN. IV ONE (18:15)
== END 2018-05-06 19:44 | disposition home health service (06) | DRG 177 ==
LOC: ER 17:14 → EEVIPCON 17:14 → 5 SOUTH 19:30 → EEVIPCON 19:30
PROVIDERS: ADMIT Family Medicine; ATTEND Family Medicine
DX: J69.0 Pneumonitis due to inhalation of food and vomit (principal); E43 Unspecified severe protein-calorie malnutrition; J96.02 Acute respiratory failure with hypercapnia; J96.21 Acute and chronic respiratory failure with hypoxia; J96.22 Acute and chronic respiratory failure with hypercapnia; Z68.1 Body mass index [BMI] 19.9 or less, adult; J44.0 Chronic obstructive pulmonary disease with (acute) lower respiratory infection; J98.11 Atelectasis; R64 Cachexia; J15.6 Pneumonia due to other Gram-negative bacteria; D63.8 Anemia in other chronic diseases classified elsewhere; G47.30 Sleep apnea, unspecified; I10 Essential (primary) hypertension; Z88.8 Allergy status to other drugs, medicaments and biological substances; K21.9 Gastro-esophageal reflux disease without esophagitis; M19.90 Unspecified osteoarthritis, unspecified site; R13.10 Dysphagia, unspecified; Z16.19 Resistance to other specified beta lactam antibiotics; Z16.24 Resistance to multiple antibiotics; Z85.118 Personal history of other malignant neoplasm of bronchus and lung; Z85.21 Personal history of malignant neoplasm of larynx; Z86.14 Personal history of Methicillin resistant Staphylococcus aureus infection; Z86.718 Personal history of other venous thrombosis and embolism; Z87.01 Personal history of pneumonia (recurrent); Z87.11 Personal history of peptic ulcer disease; Z88.6 Allergy status to analgesic agent; Z92.3 Personal history of irradiation; Z93.0 Tracheostomy status
CPT/HCPCS: 31720; 36415; 36600; 71045; 80048; 80053; 80076; 81001; 82805; 83605; 83880; 84145; 84484; 85025; 85027; 85610; 85730; 87040; 87070; 87086; 87186; 87205; 87641; 93005; 94640; 94760; 96365; 96368; J1650; J2270; J2405; J2543; J3370; J7050; J7620; J7626; J8597; Q0162; 97110; 97530; 99285-25; C9452; J7030

== ENCOUNTER 2018-05-06 20:11 | Emergency (ER) | payer MEDICARE, OTHER ==
[~2018-05-06] VITALS: Ht 162.6 cm; Wt 54.4 kg
[2018-05-06 20:22] VITALS: BP 127/69
--- NOTE | 2018-05-06 21:00 | PHYS DOC ---
Past Medical History Past Medical History: Hypertension, MRSA, Pneumonia, Other Additional Past Medical Histor: Lung CA Past Surgical History: Other Additional Past Surgical Histo: Cataract,PEG tube,CA trach,PORT Alcohol Use: None Drug Use: None Adult General Chief Complaint Chief Complaint: GTUBE REPLACEMENT/MALFUNCTION HPI HPI Patient is a 78-year-old female who presents with report that her gastrostomy tube had fallen out about an hour before her arrival to the emergency room. She presents requesting that a replacement tube be placed. She does not have tube with her. She denies any abdominal pain, nausea or vomiting. Patient denies any other complaints. Patient is unsure the last time she had her gastrostomy tube changed. Review of Systems Review of Systems Constitutional: Denies fever or chills [] Respiratory: Denies cough or shortness of breath [] Cardiovascular: Denies chest pain[] GI: Denies abdominal pain, nausea, vomiting, bloody stools or diarrhea [] Allergies Allergies Allergies Coded Allergies Type Severity Reaction Last Updated Verified aspirin Allergy Intermediate hives 03/16/17 Yes I S O L A T I O N *CONTACT* Allergy Unknown 02/15/18 Yes Physical Exam Physical Exam Constitutional: Well developed, well nourished, no acute distress, non-toxic appearance. [] Neck: Normal range of motion, no tenderness, supple, no stridor. [] Cardiovascular:Heart rate regular rhythm [] Lungs & Thorax: Bilateral breath sounds clear to auscultation [] Abdomen: Bowel sounds normal, soft, no tenderness. [] Skin: Warm, dry, no erythema, no rash. [] Current Patient Data Vital Signs Vital Signs Date Time Temp Pulse Resp B/P (MAP) Pulse Ox O2 Delivery O2 Flow Rate FiO2 05/06/18 20:22 98.4 79 18 127/69 (88) 91 Tracheal Collar 8.0 98.4 EKG EKG [] Radiology/Procedures Radiology/Procedures [] Course & Med Decision Making Course & Med Decision Making Pertinent Labs and Imaging studies reviewed. (See chart for details) A 20 [place] gastrostomy tube was placed without difficulty. Balloon was inflated with 15 mL's of sterile saline. Patient tolerated procedure well. Dragon Disclaimer Dragon Disclaimer This electronic medical record was generated, in whole or in part, using a voice recognition dictation system. Departure Departure Impression: Primary Impression: Malfunction of gastrostomy tube Disposition: HOME, SELF-CARE Condition: STABLE Referrals: CATHERINE MOSCOSO MD (PCP) Patient Instructions: Gastric Tube Replacement Additional Instructions: Follow-up with your primary care provider in the next few days. ANA CUADRA Jr. DO May 06, 2018 21:00
== END 2018-05-06 21:30 | disposition home or self-care (01) ==
LOC: ER 20:11
DX: K94.23 Gastrostomy malfunction (principal); I10 Essential (primary) hypertension; Z88.6 Allergy status to analgesic agent; Z91.041 Radiographic dye allergy status
CPT/HCPCS: 43760; 49450; 99284

== ENCOUNTER → 2018-05-18 | Outpatient (CLI) | payer MEDICARE, OTHER ==
[2018-05-06 20:22] VITALS: BP 127/69
[~2018-05-18] MED LIST changes: -AMLO10TA2 PO; +AMLO10TA6 PO; -AMLO5TAB2 PEG; +AMLO5TAB7 PEG; +GADOBUTROL 7.5 MMOL/7.5 ML VIAL IV ONE
--- NOTE | 2018-05-18 14:58 | RAD ---
MRI study of the left thigh with and without contrast Clinical indications: Mid left thigh pain for 3 months. 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 TECHNIQUE: Pre and postcontrast enhanced MRI sequences of the left thigh were performed in all 3 planes. A total of 5 cc of Gadavist was given intravenously. FINDINGS: No cortical fracture or osteomyelitis is seen. There is linear increased signal involving the distal metaphysis of the left femur. This is consistent with stress reaction. There is medial subluxation of the patella with respect to the trochlea. The medial and lateral retinacular ligaments appear intact. No significant knee joint effusion is seen involving the suprapatellar recess. No muscle edema or soft tissue mass or soft tissue edema is seen. No enhancing mass lesion is seen. IMPRESSION: Stress fracture of the distal left femoral metaphysis. Electronically signed by: Mu Mead MD (05/18/2018 2:55 PM) [id number]
== END | disposition home or self-care (01) ==
LOC: MRI 11:09
PROVIDERS: ATTEND Internal Medicine Hematology & Oncology
DX: S83.092A Other subluxation of left patella, initial encounter (principal); M84.352A Stress fracture, left femur, initial encounter for fracture; I13.0 Hypertensive heart and chronic kidney disease with heart failure and stage 1 through stage 4 chronic kidney disease, or unspecified chronic kidney disease; E11.22 Type 2 diabetes mellitus with diabetic chronic kidney disease; I50.32 Chronic diastolic (congestive) heart failure; N18.3 Chronic kidney disease, stage 3 (moderate); E78.00 Pure hypercholesterolemia, unspecified; J43.9 Emphysema, unspecified; K21.9 Gastro-esophageal reflux disease without esophagitis; D63.8 Anemia in other chronic diseases classified elsewhere; Z85.818 Personal history of malignant neoplasm of other sites of lip, oral cavity, and pharynx; Z85.22 Personal history of malignant neoplasm of nasal cavities, middle ear, and accessory sinuses; Z86.718 Personal history of other venous thrombosis and embolism; Z86.19 Personal history of other infectious and parasitic diseases; Z87.891 Personal history of nicotine dependence; Z86.14 Personal history of Methicillin resistant Staphylococcus aureus infection; Z85.21 Personal history of malignant neoplasm of larynx; Z85.01 Personal history of malignant neoplasm of esophagus; Z85.118 Personal history of other malignant neoplasm of bronchus and lung; Z92.3 Personal history of irradiation; Z68.1 Body mass index [BMI] 19.9 or less, adult; Z88.6 Allergy status to analgesic agent; Z88.8 Allergy status to other drugs, medicaments and biological substances; Z82.49 Family history of ischemic heart disease and other diseases of the circulatory system; Z80.1 Family history of malignant neoplasm of trachea, bronchus and lung; X58.XXXA Exposure to other specified factors, initial encounter; Y93.89 Activity, other specified; Y92.89 Other specified places as the place of occurrence of the external cause; Y99.8 Other external cause status
CPT/HCPCS: 73720; A9585

== ENCOUNTER 2018-06-14 09:09 | Inpatient (IN) | payer MEDICARE, OTHER ==
[~2018-06-14] VITALS: Ht 157.5 cm; Wt 56.7 kg
[~2018-06-14 09:09] MED LIST changes: -GADOBUTROL 7.5 MMOL/7.5 ML VIAL IV ONE
--- NOTE | 2018-06-14 09:14 | PHYS DOC ---
Past Medical History Past Medical History: Dementia, Hypertension, MRSA, Pneumonia, Other Additional Past Medical Histor: Lung CA Past Medical History Limited due to dementia Past Surgical History: Other Additional Past Surgical Histo: Cataract,PEG tube,CA trach,PORT Past Surgical History Limited due to dementia Alcohol Use: None Drug Use: None Social History Limited due to dementia Adult General HPI HPI 78-year-old female with past medical history of dementia resents via EMS with report of difficulty breathing. EMS noted patient hypoxic upon arrival with large thick dark sputum noted and trach. EMS reports performing tracheal suctioning with interval improvement of symptoms and O2 sat. Patient with history of prior pneumonia. No known fever. Patient poor historian. History of present illness limited due to patient's dementia and current condition. Review of Systems Review of Systems Constitutional: Denies fever or chills [] Respiratory: Reports shortness of breath and tracheal mucus plugging GI: Denies nausea, vomiting, : Denies dysuria or hematuria [] Musculoskeletal: Denies calf pain or leg swelling Integument: Denies rash or skin lesions [] Review of systems limited due to patient's history of dementia and current condition Current Medications Current Medications Current Medications Medications (Trade) Dose Ordered Sig/Yuliana Start Time Stop Time Status Last Admin Dose Admin Albuterol/ Ipratropium (Duoneb) 3 ml 1X ONCE 06/14/18 09:15 06/14/18 09:22 DC 06/14/18 09:34 3 ML Bumetanide (Bumex) 0.5 mg 1X ONCE 06/14/18 11:15 06/14/18 11:16 DC Dexamethasone Sodium Phosphate (Decadron) 10 mg 1X ONCE 06/14/18 12:00 06/14/18 12:01 DC Sodium Chloride 1,000 ml @ 1,000 mls/hr 1X ONCE 06/14/18 09:15 06/14/18 10:14 DC 06/14/18 09:42 1,000 MLS/HR Allergies Allergies Allergies Coded Allergies Type Severity Reaction Last Updated Verified aspirin Allergy Intermediate hives 03/16/17 Yes I S O L A T I O N *CONTACT* Allergy Unknown 02/15/18 Yes Physical Exam Physical Exam Constitutional: Cachectic patient who appears generally weak and frail HENT: Normocephalic, atraumatic, trach noted, no surrounding erythema Eyes: EOMI, conjunctiva normal, no discharge. [] Neck: Normal range of motion, no tenderness, supple, no stridor. [] Cardiovascular: Heart rate regular rhythm, no murmur [] Lungs & Thorax: Coarse breath sounds throughout [] Abdomen: Soft, no tenderness Skin: Warm, dry, no erythema, no rash. [] Extremities: No tenderness, no edema. [] Neurologic: Alert and oriented X 1, normal motor function, normal sensory function, no focal deficits noted. [] Current Patient Data Vital Signs Vital Signs Date Time Temp Pulse Resp B/P (MAP) Pulse Ox O2 Delivery O2 Flow Rate FiO2 06/14/18 10:33 70 18 96/44 (61) 100 Simple Mask 4.0 06/14/18 09:09 98.9 98.9 Lab Values Laboratory Tests Test 06/14/18 09:22 06/14/18 10:09 06/14/18 10:20 White Blood Count 11.9 x10^3/uL (4.0-11.0) H Red Blood Count 4.21 x10^6/uL (3.50-5.40) Hemoglobin 10.3 g/dL (12.0-15.5) L Hematocrit 33.5 % (36.0-47.0) L Mean Corpuscular Volume 79 fL (79-100) Mean Corpuscular Hemoglobin 25 pg (25-35) Mean Corpuscular Hemoglobin Concent 31 g/dL (31-37) Red Cell Distribution Width 17.3 % (11.5-14.5) H Platelet Count 344 x10^3/uL (140-400) Neutrophils (%) (Auto) 69 % (31-73) Lymphocytes (%) (Auto) 23 % (24-48) L Monocytes (%) (Auto) 8 % (0-9) Eosinophils (%) (Auto) 1 % (0-3) Basophils (%) (Auto) 1 % (0-3) Neutrophils # (Auto) 8.2 x10^3uL (1.8-7.7) H Lymphocytes # (Auto) 2.7 x10^3/uL (1.0-4.8) Monocytes # (Auto) 0.9 x10^3/uL (0.0-1.1) Eosinophils # (Auto) 0.1 x10^3/uL (0.0-0.7) Basophils # (Auto) 0.1 x10^3/uL (0.0-0.2) Lactic Acid Level 1.5 mmol/L (0.4-2.0) Urine Collection Type U cath Urine Color Yellow Urine Clarity Clear Urine pH 6.0 Urine Specific [place] 1.010 Urine Protein Negative mg/dL (NEG-TRACE) Urine Glucose (UA) Negative mg/dL (NEG) Urine Ketones (Stick) Negative mg/dL (NEG) Urine Blood Negative (NEG) Urine Nitrite Negative (NEG) Urine Bilirubin Negative (NEG) Urine Urobilinogen Dipstick 0.2 mg/dL (0.2 mg/dL) Urine Leukocyte Esterase Negative (NEG) Urine RBC 0 /HPF (0-2) Urine WBC 0 /HPF (0-4) Urine Squamous Epithelial Cells Occ /LPF Urine Bacteria 0 /HPF (0-FEW) Sodium Level 131 mmol/L (136-145) L Potassium Level 3.9 mmol/L (3.5-5.1) Chloride Level 94 mmol/L (98-107) L Carbon Dioxide Level 32 mmol/L (21-32) Anion Gap 5 (6-14) L Blood Urea Nitrogen 45 mg/dL (7-20) H Creatinine 1.6 mg/dL (0.6-1.0) H Estimated GFR (Cockcroft-Gault) 37.8 BUN/Creatinine Ratio 28 (6-20) H Glucose Level 127 mg/dL (70-99) H Calcium Level 8.1 mg/dL (8.5-10.1) L Magnesium Level 4.0 mg/dL (1.8-2.4) H Total Bilirubin 0.3 mg/dL (0.2-1.0) Aspartate Amino Transferase (AST) 22 U/L (15-37) Alanine Aminotransferase (ALT) 33 U/L (14-59) Alkaline Phosphatase 69 U/L (46-116) Creatine Kinase 31 U/L (26-192) Creatine Kinase MB (Mass) < 0.5 ng/mL (0.0-3.6) Creatine Kinase MB Relative Index % (0-4) Troponin I Quantitative < 0.017 ng/mL (0.000-0.055) UI-Bvb-I-Type Natriuretic Peptide 1215 pg/mL (0-449) H Total Protein 6.8 g/dL (6.4-8.2) Albumin 2.5 g/dL (3.4-5.0) L Albumin/Globulin Ratio 0.6 (1.0-1.7) L Laboratory Tests 06/14/18 09:22 Laboratory Tests 06/14/18 10:20 EKG EKG @0918 Significant baseline artifact noted, regular QRS noted at 77bpm, appears to have p wave prior to QRS complex but artifact also appreciated, No ST elevation noted Radiology/Procedures Radiology/Procedures PROCEDURE: PORTABLE CHEST 1V Examination: PORTABLE CHEST 1V History: DYSPNEA AND HYPOXIA Comparison/Correlation: 05/05/2018 portable chest x-ray exam Findings: Portable upright frontal view of the chest was obtained. The gastric tube is in place. Right-sided infusion port catheter terminates overlying the right atrium. Heart size is normal. Pulmonary vasculature is congested with interstitial edema identified. Mild retrocardiac opacification is similar to previous exam. No pneumothorax. No definite or significant pleural effusions. Epigastric surgical clips are noted. Impression: Increased bony vasculature congestion and interstitial edema in the interval. Electronically signed by: Joshua Coburn MD (06/14/2018 9:34 AM) [id number] Course & Med Decision Making Course & Med Decision Making Pertinent Labs and Imaging studies reviewed. (See chart for details) Patient with tracheostomy presents via EMS with report of respiratory distress and hypoxia. EMS reports significant mucous plugging noted and after suctioning with interval improvement of symptoms. Patient with coarse breath sounds on presentation. DuoNeb provided. Additional suctioning provided again with interval improvement of symptoms. Labs obtained and posted to chart. WBC less than 12. Lactic acid within normal limits. BNP greater than 1200. Troponin within normal limits. BUN and and creatinine elevated from baseline. EKG with baseline artifact, otherwise without acute process. CXR with increased vascular congestion. Bumex provided. Patient requiring admission for further evaluation and treatment. Discussed with Dr. Daily (hospitalist) who is in agreement with admission. Discussed findings and plan with patient and family, who acknowledge understanding and agreement. Dragon Disclaimer Dragon Disclaimer This electronic medical record was generated, in whole or in part, using a voice recognition dictation system. Departure Departure Impression: Primary Impression: Respiratory distress Additional Impressions: Hypoxia CHF (congestive heart failure) Disposition: ADMITTED INPATIENT Admitting Physician: Xie. Cazares Condition: GUARDED Referrals: CATHERINE MOSCOSO MD (PCP) Critical Care Time Critical care time was 30 minutes which includes time at bedside, spent in discussion of patient's care with specialists and/or family members, with interpretation of laboratory and/or radiological studies and is exclusive of procedures. Problem Qualifiers Additional Impressions: CHF (congestive heart failure) Heart failure type: unspecified Heart failure chronicity: unspecified Qualified Codes: I50.9 - Heart failure, unspecified PERRY PAGAN DO Jun 14, 2018 09:14
[2018-06-14] MEDS ORDERED: IPRATRPIUM/ALBUTEROL 0.5/2.5MG 3 ML NEBU. NEB ONE (09:15)
[2018-06-14] MEDS ORDERED: IV NORMAL SALINE 1000ML BAG 1,000 ML IV ONE (09:15)
--- NOTE | 2018-06-14 09:24 | EKG ---
[facility] [address] [place] [address] Test Date: 2018-06-14 Test Time: 09:18:17 Pat Name: BERNARDO DE LEON Department: Room: Gender: F [employer] Analyst: : 1940 Requested By: PERRY PAGAN Order Number: [id number] Reading MD: Glen Dyson MD Measurements Intervals [place] Rate: 77 P: RI: QRS: -13 QRSD: 104 T: 30 QT: 380 QTc: 432 Interpretive Statements SR BASELINE ARTIFACT Electronically Signed On 06-14-2018 14:08:37 CDT by Geln Dyson MD
--- NOTE | 2018-06-14 09:38 | RAD ---
Examination: PORTABLE CHEST 1V History: DYSPNEA AND HYPOXIA Comparison/Correlation: 05/05/2018 portable chest x-ray exam Findings: Portable upright frontal view of the chest was obtained. The gastric tube is in place. Right-sided infusion port catheter terminates overlying the right atrium. Heart size is normal. Pulmonary vasculature is congested with interstitial edema identified. Mild retrocardiac opacification is similar to previous exam. No pneumothorax. No definite or significant pleural effusions. Epigastric surgical clips are noted. Impression: Increased bony vasculature congestion and interstitial edema in the interval. Electronically signed by: Joshua Coburn MD (06/14/2018 9:34 AM) [id number]
[2018-06-14 09:42] LABS: BASO # 0.1 x10^3/uL (0.0-0.2); BASO % 1 % (0-3); EOS # 0.1 x10^3/uL (0.0-0.7); EOS % 1 % (0-3); HEMATOCRIT 33.5 % (36.0-47.0); HEMOGLOBIN 10.3 g/dL (12.0-15.5); LYMPH # 2.7 x10^3/uL (1.0-4.8); LYMPH % 23 % (24-48); MEAN CORPUSCULAR HEMOGLOBIN 25 pg (25-35); MEAN CORPUSCULAR HGB CONC 31 g/dL (31-37); MEAN CORPUSCULAR VOLUME 79 fL (79-100); MONO # 0.9 x10^3/uL (0.0-1.1); MONO % 8 % (0-9); NEUT # 8.2 x10^3uL (1.8-7.7); NEUT % 69 % (31-73); PLATELET COUNT 344 x10^3/uL (140-400); RED BLOOD COUNT 4.21 x10^6/uL (3.50-5.40); RED CELL DISTRIBUTION WIDTH 17.3 % (11.5-14.5); WHITE BLOOD COUNT 11.9 x10^3/uL (4.0-11.0)
[2018-06-14 10:35] LABS: BILIRUBIN,URINE NEGATIVE (NEG); CLARITY,URINE CLEAR; COLOR,URINE YELLOW; NITRITE,URINE NEGATIVE (NEG); PROTEIN,URINE NEGATIVE (NEG-TRACE); UROBILINOGEN,URINE 0.2 mg/dL (0.2 mg/dL)
[2018-06-14 10:41] LABS: CALCIUM 8.1 mg/dL (8.5-10.1); CREATININE 1.6 mg/dL (0.6-1.0); GFR 37.8; POTASSIUM 3.9 mmol/L (3.5-5.1)
[2018-06-14 10:46] LABS: ALBUMIN 2.5 g/dL (3.4-5.0); ALBUMIN/GLOBULIN RATIO 0.6 (1.0-1.7); TOTAL BILIRUBIN 0.3 mg/dL (0.2-1.0); TOTAL PROTEIN 6.8 g/dL (6.4-8.2)
[2018-06-14 10:48] LABS: BACTERIA,URINE 0 /HPF (0-FEW); RBC,URINE 0 /HPF (0-2); SQUAMOUS EPITHELIAL CELL,UR OCC /LPF; WBC,URINE 0 /HPF (0-4)
[2018-06-14 11:05] LABS: CREATINE KINASE 31 U/L (26-192)
[2018-06-14] MEDS ORDERED: BUMETANIDE 1 MG/4 ML VIAL. IV ONE (11:15)
[2018-06-14] MEDS ORDERED: DEXAMETHASONE SOD PHOS 20 MG/5 ML VIAL. IV ONE (12:00)
[2018-06-14] MEDS ORDERED: fentaNYL PF VIAL 100 MCG/2 ML VIAL IV PRN (12:15)
[2018-06-14] MEDS ORDERED: ONDANSETRON PF 4 MG/2 ML VIAL. IV PRN ×2 (12:15→16:15)
[2018-06-14 14:52] VITALS: BP 99/40
[2018-06-14] MEDS ORDERED: LIDO700A39 TP (15:16)
[2018-06-14] MEDS ORDERED: CETI10TA16 PO (15:16)
[2018-06-14] MEDS ORDERED: LOSA100T7 PO (15:16)
[2018-06-14] MEDS ORDERED: C.DIFF MED SCREEN BY RX. MC ONE (15:45)
[2018-06-14] MEDS ORDERED: ONDANSETRON ODT 4 MG TAB.RAPDIS. PEG PRN (16:00)
[2018-06-14] MEDS ORDERED: VANCOMYCIN 1.5 GM in IV NORMAL SALINE 500ML BAG 500 ML IV SCH (16:00)
--- NOTE | 2018-06-14 16:05 | PDOC1 ---
History and Physical Date of Admission Date of Admission 06/14/18 Identification/Chief Complaint Chief Complaint sob, weakness Source Source: Caregiver, Chart review History of Present Illness History of Present Illness HPI 78-year-old female with past medical history of dementia resents via EMS with report of difficulty breathing. pt comes here every 1-2 months for similar symptoms , with sob, or PNA, or secretions from her trach. She has h/o laryngeal Ca, lung Ca, has chronic trach, chronic secretion. sister said pt has fever last night at 102, weak for a few days, noticed sob today and she sucked out a largch thick dark mucus from the trach. sister found sat down to 60% with NC 5L at home. then called EMS. Pt looks calm now, but very weak, follow commands, but not talk to me. She is knows to have multi drug resistant bacteria PNA in the past. Past Medical History Cardiovascular: HTN Pulmonary: COPD, Pneumonia, Other CENTRAL NERVOUS SYSTEM: Other GI: Other Heme/Onc: Anemia NOS, Cancer Hepatobiliary: No pertinent hx Psych: No pertinent hx Rheumatologic: No pertinent hx Infectious disease: No pertinent hx Renal/: No pertinent hx Endocrine: No pertinent hx Past Surgical History Past Surgical History: Cataract Removal, Other Family History Family History: Heart Disease Social History Smoke: No ALCOHOL: none Drugs: None Current Problem List Problem List Problems Medical Problems: (1) Acute on chronic renal insufficiency Status: Acute (2) Hypermagnesemia Status: Acute (3) Hypoxia Status: Acute (4) Respiratory distress Status: Acute Current Medications Current Medications Current Medications Medications (Trade) Dose Ordered Sig/Yuliana Start Time Stop Time Status Last Admin Dose Admin Albuterol/ Ipratropium (Duoneb) 3 ml 1X ONCE 06/14/18 09:15 06/14/18 09:22 DC 06/14/18 09:34 3 ML Bumetanide (Bumex) 0.5 mg 1X ONCE 06/14/18 11:15 06/14/18 11:16 DC 06/14/18 13:32 0.5 MG Dexamethasone Sodium Phosphate (Decadron) 10 mg 1X ONCE 06/14/18 12:00 06/14/18 12:01 DC 06/14/18 13:32 10 MG Fentanyl Citrate (Fentanyl 2ml Vial) 50 mcg PRN Q2HR PRN 06/14/18 12:15 06/15/18 12:14 Influenza Virus Vaccine (Afluria Trivalent [id number] Syringe) 0.5 ml ONCE ONCE 06/14/18 16:00 06/14/18 16:01 Ondansetron HCl (Zofran) 4 mg PRN Q8HRS PRN 06/14/18 12:15 06/15/18 12:14 Pharmacy Consult ([facility] Screen By Rx) 1 each 1X ONCE 06/14/18 15:45 06/14/18 15:46 UNV Sodium Chloride 1,000 ml @ 1,000 mls/hr 1X ONCE 06/14/18 09:15 06/14/18 10:14 DC 06/14/18 09:42 1,000 MLS/HR Allergies Allergies Allergies Coded Allergies Type Severity Reaction Last Updated Verified aspirin Allergy Intermediate hives 03/16/17 Yes I S O L A T I O N *CONTACT* Allergy Unknown 02/15/18 Yes ROS Review of System CONSTITUTIONAL: No fever or chills EYES: No recent changes SKIN: No rash or itching CARDIOVASCULAR: No chest pain, syncope, palpitations, or edema RESPIRATORY: No SOB or cough GASTROINTESTINAL: No nausea, vomiting or abdominal pain NEUROLOGICAL: No headaches or weakness ENDOCRINE: No cold or heat intolerance GENITOURINARY: No urgency or frequency of urination MUSCULOSKELETAL: No back pain or joint pain LYMPHATICS: No enlarged lymph nodes PSYCHIATRIC: No anxiety or depression Physical Exam Physical Exam GEN.: No apparent distress. Alert and oriented. not talk, follow commands HEENT: Head is normocephalic, atraumatic, has a trach, not much secretion at this time point. connected to 4l TO THE trach. NECK: Supple. LUNGS: Clear to auscultation. HEART: RRR, S1, S2 present. Peripheral pulses intact ABDOMEN: Soft, nontender. Positive bowel sounds. EXTREMITIES: Without any cyanosis. NEUROLOGIC: Normal speech, normal tone PSYCHIATRIC: Normal affect, normal mood. SKIN: No ulcerations Vitals Vitals Vital Signs Date Time Temp Pulse Resp B/P (MAP) Pulse Ox O2 Delivery O2 Flow Rate FiO2 06/14/18 14:52 97.1 64 20 99/40 (59) 100 Tracheal Collar 4.0 97.1 Labs Labs Laboratory Tests Test 06/14/18 09:22 06/14/18 10:09 06/14/18 10:20 06/14/18 14:55 White Blood Count 11.9 x10^3/uL (4.0-11.0) Red Blood Count 4.21 x10^6/uL (3.50-5.40) Hemoglobin 10.3 g/dL (12.0-15.5) Hematocrit 33.5 % (36.0-47.0) Mean Corpuscular Volume 79 fL (79-100) Mean Corpuscular Hemoglobin 25 pg (25-35) Mean Corpuscular Hemoglobin Concent 31 g/dL (31-37) Red Cell Distribution Width 17.3 % (11.5-14.5) Platelet Count 344 x10^3/uL (140-400) Neutrophils (%) (Auto) 69 % (31-73) Lymphocytes (%) (Auto) 23 % (24-48) Monocytes (%) (Auto) 8 % (0-9) Eosinophils (%) (Auto) 1 % (0-3) Basophils (%) (Auto) 1 % (0-3) Neutrophils # (Auto) 8.2 x10^3uL (1.8-7.7) Lymphocytes # (Auto) 2.7 x10^3/uL (1.0-4.8) Monocytes # (Auto) 0.9 x10^3/uL (0.0-1.1) Eosinophils # (Auto) 0.1 x10^3/uL (0.0-0.7) Basophils # (Auto) 0.1 x10^3/uL (0.0-0.2) Lactic Acid Level 1.5 mmol/L (0.4-2.0) Urine Collection Type U cath Urine Color Yellow Urine Clarity Clear Urine pH 6.0 Urine Specific [place] 1.010 Urine Protein Negative mg/dL (NEG-TRACE) Urine Glucose (UA) Negative mg/dL (NEG) Urine Ketones (Stick) Negative mg/dL (NEG) Urine Blood Negative (NEG) Urine Nitrite Negative (NEG) Urine Bilirubin Negative (NEG) Urine Urobilinogen Dipstick 0.2 mg/dL (0.2 mg/dL) Urine Leukocyte Esterase Negative (NEG) Urine RBC 0 /HPF (0-2) Urine WBC 0 /HPF (0-4) Urine Squamous Epithelial Cells Occ /LPF Urine Bacteria 0 /HPF (0-FEW) Sodium Level 131 mmol/L (136-145) Potassium Level 3.9 mmol/L (3.5-5.1) Chloride Level 94 mmol/L (98-107) Carbon Dioxide Level 32 mmol/L (21-32) Anion Gap 5 (6-14) Blood Urea Nitrogen 45 mg/dL (7-20) Creatinine 1.6 mg/dL (0.6-1.0) Estimated GFR (Cockcroft-Gault) 37.8 BUN/Creatinine Ratio 28 (6-20) Glucose Level 127 mg/dL (70-99) Calcium Level 8.1 mg/dL (8.5-10.1) Magnesium Level 4.0 mg/dL (1.8-2.4) Total Bilirubin 0.3 mg/dL (0.2-1.0) Aspartate Amino Transf (AST/SGOT) 22 U/L (15-37) Alanine Aminotransferase (ALT/SGPT) 33 U/L (14-59) Alkaline Phosphatase 69 U/L (46-116) Creatine Kinase 31 U/L (26-192) Creatine Kinase MB (Mass) < 0.5 ng/mL (0.0-3.6) Creatine Kinase MB Relative Index % (0-4) Troponin I Quantitative < 0.017 ng/mL (0.000-0.055) < 0.017 ng/mL (0.000-0.055) MN-Izd-F-Type Natriuretic Peptide 1215 pg/mL (0-449) Total Protein 6.8 g/dL (6.4-8.2) Albumin 2.5 g/dL (3.4-5.0) Albumin/Globulin Ratio 0.6 (1.0-1.7) Laboratory Tests Test 06/14/18 09:22 06/14/18 10:09 06/14/18 10:20 06/14/18 14:55 White Blood Count 11.9 x10^3/uL (4.0-11.0) Red Blood Count 4.21 x10^6/uL (3.50-5.40) Hemoglobin 10.3 g/dL (12.0-15.5) Hematocrit 33.5 % (36.0-47.0) Mean Corpuscular Volume 79 fL (79-100) Mean Corpuscular Hemoglobin 25 pg (25-35) Mean Corpuscular Hemoglobin Concent 31 g/dL (31-37) Red Cell Distribution Width 17.3 % (11.5-14.5) Platelet Count 344 x10^3/uL (140-400) Neutrophils (%) (Auto) 69 % (31-73) Lymphocytes (%) (Auto) 23 % (24-48) Monocytes (%) (Auto) 8 % (0-9) Eosinophils (%) (Auto) 1 % (0-3) Basophils (%) (Auto) 1 % (0-3) Neutrophils # (Auto) 8.2 x10^3uL (1.8-7.7) Lymphocytes # (Auto) 2.7 x10^3/uL (1.0-4.8) Monocytes # (Auto) 0.9 x10^3/uL (0.0-1.1) Eosinophils # (Auto) 0.1 x10^3/uL (0.0-0.7) Basophils # (Auto) 0.1 x10^3/uL (0.0-0.2) Lactic Acid Level 1.5 mmol/L (0.4-2.0) Urine Collection Type U cath Urine Color Yellow Urine Clarity Clear Urine pH 6.0 Urine Specific [place] 1.010 Urine Protein Negative mg/dL (NEG-TRACE) Urine Glucose (UA) Negative mg/dL (NEG) Urine Ketones (Stick) Negative mg/dL (NEG) Urine Blood Negative (NEG) Urine Nitrite Negative (NEG) Urine Bilirubin Negative (NEG) Urine Urobilinogen Dipstick 0.2 mg/dL (0.2 mg/dL) Urine Leukocyte Esterase Negative (NEG) Urine RBC 0 /HPF (0-2) Urine WBC 0 /HPF (0-4) Urine Squamous Epithelial Cells Occ /LPF Urine Bacteria 0 /HPF (0-FEW) Sodium Level 131 mmol/L (136-145) Potassium Level 3.9 mmol/L (3.5-5.1) Chloride Level 94 mmol/L (98-107) Carbon Dioxide Level 32 mmol/L (21-32) Anion Gap 5 (6-14) Blood Urea Nitrogen 45 mg/dL (7-20) Creatinine 1.6 mg/dL (0.6-1.0) Estimated GFR (Cockcroft-Gault) 37.8 BUN/Creatinine Ratio 28 (6-20) Glucose Level 127 mg/dL (70-99) Calcium Level 8.1 mg/dL (8.5-10.1) Magnesium Level 4.0 mg/dL (1.8-2.4) Total Bilirubin 0.3 mg/dL (0.2-1.0) Aspartate Amino Transf (AST/SGOT) 22 U/L (15-37) Alanine Aminotransferase (ALT/SGPT) 33 U/L (14-59) Alkaline Phosphatase 69 U/L (46-116) Creatine Kinase 31 U/L (26-192) Creatine Kinase MB (Mass) < 0.5 ng/mL (0.0-3.6) Creatine Kinase MB Relative Index % (0-4) Troponin I Quantitative < 0.017 ng/mL (0.000-0.055) < 0.017 ng/mL (0.000-0.055) OY-Tpm-B-Type Natriuretic Peptide 1215 pg/mL (0-449) Total Protein 6.8 g/dL (6.4-8.2) Albumin 2.5 g/dL (3.4-5.0) Albumin/Globulin Ratio 0.6 (1.0-1.7) VTE Prophylaxis Ordered VTE Prophylaxis Devices: Yes VTE Pharmacological Prophylaxi: Yes Assessment/Plan Assessment/Plan .Acute hypercapnic respiratory failure on top of chronic respiratory failure, chronically trached marked resp secretions History of H,CAP and multi drug resistant organism Carbapenem- resistant Pseudomonas aeruginosa sepsis Cachexia Chronic dysphagia, chronically PEG on tube feeds .Severe PCM Allergies to aspirin .History bacteremia Full code Anemia of chronic disease Leukocytosis. History of lung cancer. .History of laryngeal cancer. mild dementia HTN plan: pulm, id consult add marco antonio myers for now, sputum cx o2 as needed trach care duoneb cont home meds hold HTN meds for now given bp lower side PEG feeding family, as usual, want aggressive treatment JAVIER IRVIN MD Jun 14, 2018 16:05
[2018-06-14] MEDS ORDERED: DOCUSATE SODIUM 100 MG CAPSULE. PO PRN (16:15)
[2018-06-14] MEDS ORDERED: ALBUTEROL SULFATE 2.5 MG/3 ML NEBU. NEB PRN (16:15)
[2018-06-14] MEDS ORDERED: traMADol 50 MG TABLET PO PRN (16:15)
[2018-06-14] MEDS ORDERED: ACETAMINOPHEN 325 MG TABLET. PO PRN (16:15)
[2018-06-14] MEDS ORDERED: PIP/TAZO PER PHARMACY MC PRN (16:15)
[2018-06-14] MEDS ORDERED: VANCOMYCIN 1.25 GM in IV NORMAL SALINE 250ML 250 ML IV ONE (17:00)
[2018-06-14] MEDS: METOCLOPRAMIDE 10 MG TABLET. PO SCH ×2 (17:13→20:57)
[2018-06-14] MEDS: PANTOPRAZOLE 40 MG TABLET.DR. PO SCH (17:13)
[2018-06-14] MEDS: PIPERACILLIN/TAZOBACTAM 3.375 GM in IV NORMAL SALINE 50ML 50 ML IV SCH ×2 (17:14→22:54)
[2018-06-14] MEDS: oxyCODONE/APAP 7.5/325 1 TAB TABLET PO PRN ×2 (18:04→20:59)
[2018-06-14] MEDS: VANCOMYCIN PER PHARMACY MC PRN (18:45)
[2018-06-14 19:00] VITALS: BP 117/61
[2018-06-14] MEDS: IPRATRPIUM/ALBUTEROL 0.5/2.5MG 3 ML NEBU. NEB SCH (20:01)
[2018-06-14] MEDS: MORPHINE SULFATE 2 MG/ML VIAL. IV PRN (20:25)
[2018-06-14] MEDS: GABAPENTIN 300 MG CAPSULE. PO SCH (20:56)
[2018-06-14] MEDS: LACTOBACILLUS RHAMNOSUS GG 1 CAPSULE. PO SCH (20:57)
[2018-06-14] MEDS: DONEPEZIL HCL 5 MG TABLET. PEG SCH (20:57)
[2018-06-14] MEDS: CYPROHEPTADINE 4 MG TABLET. PO SCH (20:57)
[2018-06-14] MEDS ORDERED: MEROPENEM 500 MG in IV NORMAL SALINE 50ML 50 ML IV SCH (22:00)
[2018-06-14 23:00] VITALS: BP 89/51
--- NOTE | 2018-06-14 23:12 | CONS ---
DATE OF CONSULTATION: Pulmonary Consultation ATTENDING PHYSICIAN: Eyal Daily MD REASON FOR CONSULTATION: Hypoxia, abnormal chest x-ray, pneumonia. HISTORY OF PRESENT ILLNESS: The patient is a 78-year-old female who has history of underlying dementia, history of chronic respiratory failure, history of laryngeal cancer, lung cancer and also has been treated with multiple organisms in her lungs/pneumonia. She is pretty much in the hospital every month. She was brought into the hospital after sister said that the patient had a fever last night of 102. She does not wear oxygen with her trach. There was also noticed to have large amount of thick, dark mucus from the trach. She was found to have saturation of 60% with nasal cannula at 5 L and as a result, EMS was called. She appears to be comfortable. Since she is in the hospital, she has been afebrile. Her chest x-ray showed bilateral patchy infiltrates. Clinically, less likely CHF. She was started on vancomycin and Zosyn. I have been asked to see her for further evaluation. PAST MEDICAL HISTORY: History of laryngeal cancer, history of lung cancer. History of chronic respiratory failure with chronic trach. History of recurrent pneumonias with multiple organisms. History of anemia. Dysphagia, status post PEG tube. PAST SURGICAL HISTORY: PEG tube, tracheostomy, and cataract removal. FAMILY HISTORY: Heart disease. SOCIAL HISTORY: Does not smoke anymore. ALLERGIES: None. CURRENT MEDICATIONS: Reviewed as listed in the MRAD. SYSTEM REVIEW: Unable to obtain from the patient, as she does not vocalize. PHYSICAL EXAMINATION: VITAL SIGNS: Reviewed. Blood pressure is stable, afebrile, pulse ox is 94% on trach collar at 4 L. HEENT: Sclerae are nonicteric. NECK: Supple. Trach in place. LUNGS: With diminished breath sounds. CARDIOVASCULAR: Regular rate. ABDOMEN: Soft. PEG tube is in place. EXTREMITIES: With no pitting edema. LABORATORY DATA: Reviewed. White cell count 11.9, hemoglobin 10.3, and platelets are 344. BUN is 45, creatinine 1.6. IMPRESSION: 1. Acute on chronic hypoxic respiratory failure secondary to most likely Gram-negative and Gram-positive pneumonia. 2. Abnormal chest x-ray with bilateral patchy infiltrates, more favoring pneumonia than congestive heart failure. We will obtain a noncontrast CT chest for better evaluation. 3. History of laryngeal cancer and lung cancer. Status post tracheostomy with multiple admissions for recurrent pneumonias. History of multidrug resistant Pseudomonas aeruginosa pneumonia in the past. 4. History of azotemia. 5. Severe protein-calorie malnutrition. RECOMMENDATIONS: 1. Continue with present antibiotics. 2. Continue with trach collar. Keep saturation 92% and above. 3. Obtain trach secretions for C and S. 4. We will do a noncontrast CT chest to better assess for pneumonia. 5. Consider ID consult, as the patient has pneumonias with multidrug resistant organisms in the past. 6. Discussed with RN. We will follow along with you. MARY LANIER MD DR: AINSLEY/sena JOB#: [id number] / [id number]
[2018-06-15] MEDS: MORPHINE SULFATE 2 MG/ML VIAL. IV PRN ×3 (00:51→20:37)
[2018-06-15 03:04] VITALS: BP 98/45
[2018-06-15] MEDS: PIPERACILLIN/TAZOBACTAM 3.375 GM in IV NORMAL SALINE 50ML 50 ML IV SCH (04:58)
[2018-06-15 05:35] LABS: BASO % 0 % (0-3); EOS % 0 % (0-3); HEMOGLOBIN 10.7 g/dL (12.0-15.5); LYMPH # 1.4 x10^3/uL (1.0-4.8); LYMPH % 16 % (24-48); MEAN CORPUSCULAR HEMOGLOBIN 25 pg (25-35); MEAN CORPUSCULAR HGB CONC 32 g/dL (31-37); MEAN CORPUSCULAR VOLUME 80 fL (79-100); MONO # 0.4 x10^3/uL (0.0-1.1); MONO % 4 % (0-9); NEUT # 6.9 x10^3uL (1.8-7.7); NEUT % 80 % (31-73); PLATELET COUNT 335 x10^3/uL (140-400); RED BLOOD COUNT 4.26 x10^6/uL (3.50-5.40); RED CELL DISTRIBUTION WIDTH 17.1 % (11.5-14.5); WHITE BLOOD COUNT 8.7 x10^3/uL (4.0-11.0)
[2018-06-15 05:53] LABS: CALCIUM 8.5 mg/dL (8.5-10.1); CREATININE 1.2 mg/dL (0.6-1.0); GFR 52.7; POTASSIUM 4.4 mmol/L (3.5-5.1)
[2018-06-15 07:00] VITALS: BP 108/56
[2018-06-15] MEDS: IPRATRPIUM/ALBUTEROL 0.5/2.5MG 3 ML NEBU. NEB SCH ×4 (08:30→19:18)
[2018-06-15] MEDS ORDERED: fentaNYL 50MCG/HR PATCH 1 PATCH PATCH.TD72 TD SCH (09:00)
[2018-06-15] MEDS ORDERED: NON FORMULARY ITEM (Atenolol/Chlorthalidone (Atenolol-Chlorthal 50-25 Tb) 1 TAB) PEG SCH (09:00)
[2018-06-15] MEDS: LACTOBACILLUS RHAMNOSUS GG 1 CAPSULE. PO SCH ×2 (09:39→20:37)
[2018-06-15] MEDS: CETIRIZINE HCL 10 MG TABLET. PO SCH (09:39)
[2018-06-15] MEDS: PANTOPRAZOLE 40 MG TABLET.DR. PO SCH ×2 (09:39→17:46)
[2018-06-15] MEDS: CYPROHEPTADINE 4 MG TABLET. PO SCH ×3 (09:41→20:37)
[2018-06-15] MEDS: DONEPEZIL HCL 5 MG TABLET. PEG SCH ×2 (09:41→20:37)
[2018-06-15] MEDS: METOCLOPRAMIDE 10 MG TABLET. PO SCH ×4 (09:41→20:37)
[2018-06-15] MEDS: GABAPENTIN 300 MG CAPSULE. PO SCH ×3 (09:41→20:37)
[2018-06-15] MEDS: oxyCODONE/APAP 7.5/325 1 TAB TABLET PO PRN ×2 (09:43→17:45)
[2018-06-15] MEDS: LIDOCAINE (700MG/PATCH) PATCH. TD SCH (09:43)
--- NOTE | 2018-06-15 10:02 | RAD ---
CT of the chest without contrast, 06/15/2018: HISTORY: Pneumonia Noncontrast scans were obtained as requested and compared to a study from 02/17/2018. Emphysematous changes are present in both lungs. There are scattered pleural/parenchymal scars. The previous study demonstrated bronchiectasis and moderate streaky right basilar opacities. There is now more dense infiltrate in the right lower lobe posteriorly compatible with superimposed pneumonia. Chronic atelectasis/consolidation posterior medially in the left lung base appears unchanged. No significant pleural fluid is evident. A tracheostomy tube is in satisfactory position. A right Port-A-Cath extends to the level of the atriocaval junction. There is moderate calcific plaquing of the thoracic aorta and its branches. Scattered coronary artery calcifications are present. The heart is generally enlarged. Borderline adenopathy at the AP window level is unchanged. A subcarinal density is more prominent than on the previous study, although the collapsed esophagus may be contributing to this density. There are surgical clips in the region of the GE junction. A portion of a gastrostomy tube is evident in the stomach IMPRESSION: 1. Emphysema with pleural/parenchymal scarring. 2. Worsening right lower lobe infiltrate compatible with pneumonia with underlying bronchiectasis. 3. Chronic atelectasis/consolidation posterior medially in the left lower lobe, similar to that seen on 02/17/2018 4. Borderline mediastinal adenopathy with probable slight worsening in the subcarinal region. 5. Cardiomegaly with calcific plaquing of the aorta and coronary arteries. PQRS Compliance Statement: One or more of the following individualized dose reduction techniques were utilized for this examination: 1. Automated exposure control 2. Adjustment of the mA and/or kV according to patient size 3. Use of iterative reconstruction technique Electronically signed by: Jarret Gallegos MD (06/15/2018 9:58 AM) [facility]
[2018-06-15 11:00] VITALS: BP 136/68
--- NOTE | 2018-06-15 11:25 | PDOC ---
Infectious Disease Note Vital Sign Vital Signs Vital Signs Date Time Temp Pulse Resp B/P (MAP) Pulse Ox O2 Delivery O2 Flow Rate FiO2 06/15/18 09:43 4.0 06/15/18 08:36 90 Room Air 06/15/18 07:00 96.6 75 20 108/56 (73) 96.6 Labs Lab Laboratory Tests Test 06/14/18 14:55 06/14/18 15:55 06/14/18 18:10 06/15/18 05:05 Troponin I Quantitative < 0.017 ng/mL (0.000-0.055) < 0.017 ng/mL (0.000-0.055) Nasal Screen MRSA (PCR) Negative (Negative) White Blood Count 8.7 x10^3/uL (4.0-11.0) Red Blood Count 4.26 x10^6/uL (3.50-5.40) Hemoglobin 10.7 g/dL (12.0-15.5) Hematocrit 34.0 % (36.0-47.0) Mean Corpuscular Volume 80 fL (79-100) Mean Corpuscular Hemoglobin 25 pg (25-35) Mean Corpuscular Hemoglobin Concent 32 g/dL (31-37) Red Cell Distribution Width 17.1 % (11.5-14.5) Platelet Count 335 x10^3/uL (140-400) Neutrophils (%) (Auto) 80 % (31-73) Lymphocytes (%) (Auto) 16 % (24-48) Monocytes (%) (Auto) 4 % (0-9) Eosinophils (%) (Auto) 0 % (0-3) Basophils (%) (Auto) 0 % (0-3) Neutrophils # (Auto) 6.9 x10^3uL (1.8-7.7) Lymphocytes # (Auto) 1.4 x10^3/uL (1.0-4.8) Monocytes # (Auto) 0.4 x10^3/uL (0.0-1.1) Eosinophils # (Auto) 0.0 x10^3/uL (0.0-0.7) Basophils # (Auto) 0.0 x10^3/uL (0.0-0.2) Sodium Level 135 mmol/L (136-145) Potassium Level 4.4 mmol/L (3.5-5.1) Chloride Level 95 mmol/L (98-107) Carbon Dioxide Level 32 mmol/L (21-32) Anion Gap 8 (6-14) Blood Urea Nitrogen 43 mg/dL (7-20) Creatinine 1.2 mg/dL (0.6-1.0) Estimated GFR (Cockcroft-Gault) 52.7 Glucose Level 134 mg/dL (70-99) Calcium Level 8.5 mg/dL (8.5-10.1) Micro Microbiology 06/14/18 Blood Culture - Preliminary, Resulted NO GROWTH AFTER 1 DAY Objective Assessment HCAP with CRE PSA in past Leukocytosis which has improved [id number] respiratory failure SANCHEZ Dysphagia, on tube feedings h/x lung ca h/o c. diff in 2017 h/o MRSA Plan Plan of Care Continue vanc for now change Zosyn to Zerbexa for h/o MDRO Contact isolation Influenza screen f/u cultures Monitor renal function closely Thank you [phone] Attending Co-Sign The patient was seen and interviewed as well as examined at the bedside. The chart was reviewed. The case was discussed. Agree with the plan of care. RAISA VILLAR APRN Jun 15, 2018 11:25 ASTER MATOS MD Jun 15, 2018 12:08
[2018-06-15] MEDS: VANCOMYCIN PER PHARMACY MC PRN ×3 (12:24→12:29)
[2018-06-15] MEDS ORDERED: ATEN1TAB3 PEG (12:41)
--- NOTE | 2018-06-15 13:23 | PDOC ---
PROGRESS NOTES Chief Complaint Chief Complaint sepsis Acute on chronic hypercapnic respiratory failure w. trach marked resp secretions History of H,CAP and multi drug resistant organism Cachexia Chronic dysphagia, chronically PEG on tube feeds .Severe PCM Allergies to aspirin .History bacteremia Anemia of chronic disease Leukocytosis. History of lung cancer. .History of laryngeal cancer. mild dementia HTN History of Present Illness History of Present Illness pulm, id consult broad abx cont current feels well I was called by her pharmacy to fill atelolol/thiazine pill for 90 days, script written and left on chart Vitals Vitals Vital Signs Date Time Temp Pulse Resp B/P (MAP) Pulse Ox O2 Delivery O2 Flow Rate FiO2 06/15/18 12:22 90 Room Air 06/15/18 11:00 97.7 88 20 136/68 (90) 97.7 06/15/18 09:43 4.0 Physical Exam Physical Exam thin, weak General: Alert, Cooperative, No acute distress Heart: Normal S1, No murmurs Lungs: Other Abdomen: Normal bowel sounds, No tenderness Extremities: No clubbing, No cyanosis, No edema Skin: No significant lesion Labs LABS Laboratory Tests Test 06/14/18 14:55 06/14/18 15:55 06/14/18 18:10 06/15/18 05:05 Troponin I Quantitative < 0.017 ng/mL (0.000-0.055) < 0.017 ng/mL (0.000-0.055) Nasal Screen MRSA (PCR) Negative (Negative) White Blood Count 8.7 x10^3/uL (4.0-11.0) Red Blood Count 4.26 x10^6/uL (3.50-5.40) Hemoglobin 10.7 g/dL (12.0-15.5) Hematocrit 34.0 % (36.0-47.0) Mean Corpuscular Volume 80 fL (79-100) Mean Corpuscular Hemoglobin 25 pg (25-35) Mean Corpuscular Hemoglobin Concent 32 g/dL (31-37) Red Cell Distribution Width 17.1 % (11.5-14.5) Platelet Count 335 x10^3/uL (140-400) Neutrophils (%) (Auto) 80 % (31-73) Lymphocytes (%) (Auto) 16 % (24-48) Monocytes (%) (Auto) 4 % (0-9) Eosinophils (%) (Auto) 0 % (0-3) Basophils (%) (Auto) 0 % (0-3) Neutrophils # (Auto) 6.9 x10^3uL (1.8-7.7) Lymphocytes # (Auto) 1.4 x10^3/uL (1.0-4.8) Monocytes # (Auto) 0.4 x10^3/uL (0.0-1.1) Eosinophils # (Auto) 0.0 x10^3/uL (0.0-0.7) Basophils # (Auto) 0.0 x10^3/uL (0.0-0.2) Sodium Level 135 mmol/L (136-145) Potassium Level 4.4 mmol/L (3.5-5.1) Chloride Level 95 mmol/L (98-107) Carbon Dioxide Level 32 mmol/L (21-32) Anion Gap 8 (6-14) Blood Urea Nitrogen 43 mg/dL (7-20) Creatinine 1.2 mg/dL (0.6-1.0) Estimated GFR (Cockcroft-Gault) 52.7 Glucose Level 134 mg/dL (70-99) Calcium Level 8.5 mg/dL (8.5-10.1) Review of Systems Review of Systems no n.v.d cough better marked secretions from trach, but she feels clearing well Assessment and Plan Assessmemt and Plan Problems Medical Problems: (1) Acute on chronic renal insufficiency Status: Acute (2) Hypermagnesemia Status: Acute (3) Hypoxia Status: Acute (4) Respiratory distress Status: Acute Comment Review of Relevant I have reviewed the following items miko (where applicable) has been applied. Labs Laboratory Tests Test 06/14/18 09:22 06/14/18 10:09 06/14/18 10:20 06/14/18 14:55 White Blood Count 11.9 x10^3/uL (4.0-11.0) Red Blood Count 4.21 x10^6/uL (3.50-5.40) Hemoglobin 10.3 g/dL (12.0-15.5) Hematocrit 33.5 % (36.0-47.0) Mean Corpuscular Volume 79 fL (79-100) Mean Corpuscular Hemoglobin 25 pg (25-35) Mean Corpuscular Hemoglobin Concent 31 g/dL (31-37) Red Cell Distribution Width 17.3 % (11.5-14.5) Platelet Count 344 x10^3/uL (140-400) Neutrophils (%) (Auto) 69 % (31-73) Lymphocytes (%) (Auto) 23 % (24-48) Monocytes (%) (Auto) 8 % (0-9) Eosinophils (%) (Auto) 1 % (0-3) Basophils (%) (Auto) 1 % (0-3) Neutrophils # (Auto) 8.2 x10^3uL (1.8-7.7) Lymphocytes # (Auto) 2.7 x10^3/uL (1.0-4.8) Monocytes # (Auto) 0.9 x10^3/uL (0.0-1.1) Eosinophils # (Auto) 0.1 x10^3/uL (0.0-0.7) Basophils # (Auto) 0.1 x10^3/uL (0.0-0.2) Lactic Acid Level 1.5 mmol/L (0.4-2.0) Urine Collection Type U cath Urine Color Yellow Urine Clarity Clear Urine pH 6.0 Urine Specific Red [place] 1.010 Urine Protein Negative mg/dL (NEG-TRACE) Urine Glucose (UA) Negative mg/dL (NEG) Urine Ketones (Stick) Negative mg/dL (NEG) Urine Blood Negative (NEG) Urine Nitrite Negative (NEG) Urine Bilirubin Negative (NEG) Urine Urobilinogen Dipstick 0.2 mg/dL (0.2 mg/dL) Urine Leukocyte Esterase Negative (NEG) Urine RBC 0 /HPF (0-2) Urine WBC 0 /HPF (0-4) Urine Squamous Epithelial Cells Occ /LPF Urine Bacteria 0 /HPF (0-FEW) Sodium Level 131 mmol/L (136-145) Potassium Level 3.9 mmol/L (3.5-5.1) Chloride Level 94 mmol/L (98-107) Carbon Dioxide Level 32 mmol/L (21-32) Anion Gap 5 (6-14) Blood Urea Nitrogen 45 mg/dL (7-20) Creatinine 1.6 mg/dL (0.6-1.0) Estimated GFR (Cockcroft-Gault) 37.8 BUN/Creatinine Ratio 28 (6-20) Glucose Level 127 mg/dL (70-99) Calcium Level 8.1 mg/dL (8.5-10.1) Magnesium Level 4.0 mg/dL (1.8-2.4) Total Bilirubin 0.3 mg/dL (0.2-1.0) Aspartate Amino Transf (AST/SGOT) 22 U/L (15-37) Alanine Aminotransferase (ALT/SGPT) 33 U/L (14-59) Alkaline Phosphatase 69 U/L (46-116) Creatine Kinase 31 U/L (26-192) Creatine Kinase MB (Mass) < 0.5 ng/mL (0.0-3.6) Creatine Kinase MB Relative Index % (0-4) Troponin I Quantitative < 0.017 ng/mL (0.000-0.055) < 0.017 ng/mL (0.000-0.055) SO-Wme-N-Type Natriuretic Peptide 1215 pg/mL (0-449) Total Protein 6.8 g/dL (6.4-8.2) Albumin 2.5 g/dL (3.4-5.0) Albumin/Globulin Ratio 0.6 (1.0-1.7) Test 06/14/18 15:55 06/14/18 18:10 06/15/18 05:05 Nasal Screen MRSA (PCR) Negative (Negative) Troponin I Quantitative < 0.017 ng/mL (0.000-0.055) White Blood Count 8.7 x10^3/uL (4.0-11.0) Red Blood Count 4.26 x10^6/uL (3.50-5.40) Hemoglobin 10.7 g/dL (12.0-15.5) Hematocrit 34.0 % (36.0-47.0) Mean Corpuscular Volume 80 fL (79-100) Mean Corpuscular Hemoglobin 25 pg (25-35) Mean Corpuscular Hemoglobin Concent 32 g/dL (31-37) Red Cell Distribution Width 17.1 % (11.5-14.5) Platelet Count 335 x10^3/uL (140-400) Neutrophils (%) (Auto) 80 % (31-73) Lymphocytes (%) (Auto) 16 % (24-48) Monocytes (%) (Auto) 4 % (0-9) Eosinophils (%) (Auto) 0 % (0-3) Basophils (%) (Auto) 0 % (0-3) Neutrophils # (Auto) 6.9 x10^3uL (1.8-7.7) Lymphocytes # (Auto) 1.4 x10^3/uL (1.0-4.8) Monocytes # (Auto) 0.4 x10^3/uL (0.0-1.1) Eosinophils # (Auto) 0.0 x10^3/uL (0.0-0.7) Basophils # (Auto) 0.0 x10^3/uL (0.0-0.2) Sodium Level 135 mmol/L (136-145) Potassium Level 4.4 mmol/L (3.5-5.1) Chloride Level 95 mmol/L (98-107) Carbon Dioxide Level 32 mmol/L (21-32) Anion Gap 8 (6-14) Blood Urea Nitrogen 43 mg/dL (7-20) Creatinine 1.2 mg/dL (0.6-1.0) Estimated GFR (Cockcroft-Gault) 52.7 Glucose Level 134 mg/dL (70-99) Calcium Level 8.5 mg/dL (8.5-10.1) Laboratory Tests Test 06/14/18 14:55 06/14/18 15:55 06/14/18 18:10 06/15/18 05:05 Troponin I Quantitative < 0.017 ng/mL (0.000-0.055) < 0.017 ng/mL (0.000-0.055) Nasal Screen MRSA (PCR) Negative (Negative) White Blood Count 8.7 x10^3/uL (4.0-11.0) Red Blood Count 4.26 x10^6/uL (3.50-5.40) Hemoglobin 10.7 g/dL (12.0-15.5) Hematocrit 34.0 % (36.0-47.0) Mean Corpuscular Volume 80 fL (79-100) Mean Corpuscular Hemoglobin 25 pg (25-35) Mean Corpuscular Hemoglobin Concent 32 g/dL (31-37) Red Cell Distribution Width 17.1 % (11.5-14.5) Platelet Count 335 x10^3/uL (140-400) Neutrophils (%) (Auto) 80 % (31-73) Lymphocytes (%) (Auto) 16 % (24-48) Monocytes (%) (Auto) 4 % (0-9) Eosinophils (%) (Auto) 0 % (0-3) Basophils (%) (Auto) 0 % (0-3) Neutrophils # (Auto) 6.9 x10^3uL (1.8-7.7) Lymphocytes # (Auto) 1.4 x10^3/uL (1.0-4.8) Monocytes # (Auto) 0.4 x10^3/uL (0.0-1.1) Eosinophils # (Auto) 0.0 x10^3/uL (0.0-0.7) Basophils # (Auto) 0.0 x10^3/uL (0.0-0.2) Sodium Level 135 mmol/L (136-145) Potassium Level 4.4 mmol/L (3.5-5.1) Chloride Level 95 mmol/L (98-107) Carbon Dioxide Level 32 mmol/L (21-32) Anion Gap 8 (6-14) Blood Urea Nitrogen 43 mg/dL (7-20) Creatinine 1.2 mg/dL (0.6-1.0) Estimated GFR (Cockcroft-Gault) 52.7 Glucose Level 134 mg/dL (70-99) Calcium Level 8.5 mg/dL (8.5-10.1) Microbiology 06/14/18 Blood Culture - Preliminary, Resulted NO GROWTH AFTER 1 DAY Medications Current Medications Albuterol/ Ipratropium (Duoneb) 3 ml 1X ONCE NEB Last administered on at 09:34; Start 06/14/18 at 09:15; Stop 06/14/18 at 09:22; Status DC Sodium Chloride 1,000 ml @ 1,000 mls/hr 1X ONCE IV Last administered on at 09:42; Start 06/14/18 at 09:15; Stop 06/14/18 at 10:14; Status DC Bumetanide (Bumex) 0.5 mg 1X ONCE IV Last administered on 06/14/18at 13:32; Start 06/14/18 at 11:15; Stop 06/14/18 at 11:16; Status DC Dexamethasone Sodium Phosphate (Decadron) 10 mg 1X ONCE IV Last administered on 06/14/18at 13:32; Start 06/14/18 at 12:00; Stop 06/14/18 at 12:01; Status DC Ondansetron HCl (Zofran) 4 mg PRN Q8HRS PRN IV NAUSEA/VOMITING; Start 06/14/18 at 12:15; Stop 06/15/18 at 12:14; Status DC Fentanyl Citrate (Fentanyl 2ml Vial) 50 mcg PRN Q2HR PRN IV PAIN Last administered on 06/14/18at 22:55; Start 06/14/18 at 12:15; Stop 06/15/18 at 12:14 ; Status DC Pharmacy Consult (C.diff Med Screen By Rx) 1 each 1X ONCE MC ; Start 06/14/18 at 15:45; Stop 06/14/18 at 15:46; Status UNV Influenza Virus Vaccine (Afluria Trivalent [id number] Syringe) 0.5 ml ONCE ONCE VAX IM Last administered on 06/14/18at 16:01; Start 06/14/18 at 16:00; Stop 06/14/18 at 16:01; Status DC Cetirizine HCl (ZyrTEC) 10 mg DAILY PO Last administered on 06/15/18at 09:39; Start 06/15/18 at 09:00 Fentanyl (Duragesic 50mcg/ Hr Patch) 1 patch Q3DAYS TD ; Start 06/15/18 at 09:00 ; Stop 06/15/18 at 09:00; Status DC Lactobacillus Rhamnosus (Culturelle) 1 cap BID PO Last administered on at 09:39; Start 06/14/18 at 21:00 Metoclopramide HCl (Reglan) 5 mg QIDACHS PO Last administered on 06/15/18at 09: 41; Start 06/14/18 at 16:30 Ondansetron HCl (Zofran Odt) 4 mg QIDPRN PRN PEG NAUSEA/VOMITING; Start at 16:00 Oxycodone/ Acetaminophen (Percocet 7.5/ 325) 1 tab QID PRN PO PAIN Last administered on 06/15/18at 09:43; Start 06/14/18 at 16:00 Pantoprazole Sodium (Protonix) 40 mg BIDAC PO Last administered on 06/15/18at 09 :39; Start 06/14/18 at 16:30 Non-Formulary Medication (Atenolol/ Chlorthalidone (Atenolol-Chlorthal 50-25 Tb) ) 1 tab DAILY PEG ; Start 06/15/18 at 09:00; Stop 06/15/18 at 09:00; Status DC Cyproheptadine HCl (Periactin) 10 mg TID PO Last administered on 06/15/18at 09: 41; Start 06/14/18 at 21:00 Donepezil HCl (Aricept) 5 mg BID PEG Last administered on 06/15/18at 09:41; Start 06/14/18 at 21:00 Gabapentin (Neurontin) 300 mg TID PO Last administered on 06/15/18at 09:41; Start 06/14/18 at 21:00 Lidocaine (Lidoderm) 1 patch DAILY TD Last administered on 06/15/18at 09:43; Start 06/15/18 at 09:00 Vancomycin HCl 1.5 gm/Sodium Chloride 500 ml @ 250 mls/hr Q12H IV ; Start 06/14 at 16:00; Status UNV Vancomycin HCl (Vanco Per Pharmacy) 1 each PRN DAILY PRN MC SEE COMMENTS Last administered on 06/15/18at 12:29; Start 06/14/18 at 16:00 Meropenem 500 mg/ Sodium Chloride 50 ml @ 100 mls/hr Q8HRS IV ; Start 06/14/18 at 22:00; Stop 06/14/18 at 22:00; Status DC Piperacillin Sod/ Tazobactam Sod 3.375 gm/Sodium Chloride 50 ml @ 100 mls/hr Q6HRS IV Last administered on 06/15/18at 04:58; Start 06/14/18 at 17:00; Stop 06/15/18 at 11:10; Status DC Piperacillin Sod/ Tazobactam Sod (Zosyn Per Pharmacy) 1 each PRN DAILY PRN MC SEE COMMENTS; Start 06/14/18 at 16:15; Status UNV Acetaminophen (Tylenol) 650 mg PRN Q6HRS PRN PO FEVER; Start 06/14/18 at 16:15 Ondansetron HCl (Zofran) 4 mg PRN Q6HRS PRN IV NAUSEA/VOMITING; Start 06/14/18 at 16:15 Morphine Sulfate (Morphine Sulfate) 2 mg PRN Q2HR PRN IV MODERATE TO SEVERE PAIN Last administered on 06/15/18at 00:51; Start 06/14/18 at 16:15 Tramadol HCl (Ultram) 50 mg PRN Q6HRS PRN PO MILD PAIN; Start 06/14/18 at 16:15 Docusate Sodium (Colace) 100 mg PRN DAILY PRN PO CONSTIPATION; Start 06/14/18 at 16:15 Albuterol/ Ipratropium (Duoneb) 3 ml RTQID NEB Last administered on 06/15/18at 12:21; Start 06/14/18 at 20:00 Albuterol Sulfate (Ventolin Neb Soln) 2.5 mg PRN Q2HR PRN NEB SHORTNESS OF BREATH; Start 06/14/18 at 16:15 Guaifenesin (Mucinex) 600 mg BID PO ; Start 06/14/18 at 21:00; Stop 06/14/18 at 21:00; Status DC Vancomycin HCl 1.25 gm/Sodium Chloride 250 ml @ 166.667 mls/hr 1X ONCE IV Last administered on 06/14/18at 18:04; Start 06/14/18 at 17:00; Stop 06/14/18 at 18:29; Status DC Fentanyl (Duragesic 50mcg/ Hr Patch) 1 patch Q3DAYS TD ; Start 06/17/18 at 09:00 ; Stop 06/30/18 at 08:59 Vancomycin HCl 1 gm/Sodium Chloride 250 ml @ 250 mls/hr Q48H IV ; Start at 18:00; Stop 06/16/18 at 18:00; Status DC Vancomycin HCl (Vancomycin Trough Level) 1 each 1X ONCE MC ; Start 06/18/18 at 17:30; Stop 06/18/18 at 17:31 Ceftolozane/ Tazobactam 750 mg/ Sodium Chloride 50 ml @ 50 mls/hr Q8HRS IV ; Start 06/15/18 at 14:00 Vancomycin HCl 0.75 gm/Sodium Chloride 250 ml @ 250 mls/hr Q24H IV ; Start 06/15/18 at 18:00 Active Scripts Active Atenolol-Chlorthal 50-25 Tb (Atenolol/Chlorthalidone) 1 Each Tablet 1 Tab PEG DAILY Gabapentin 300 Mg Capsule 300 Mg PO TID 30 Days Culturelle (Lactobacillus Rhamnosus Gg) 1 Each Cap.sprink 1 Cap PO BID 30 Days Reported Lidocaine 1 Each Adh..patch 1 Each TP DAILY Cetirizine Hcl 10 Mg Tablet 1 Tab PO DAILY Losartan Potassium 100 Mg Tablet 100 Mg PO DAILY Pantoprazole Sodium 40 Mg Tablet.dr 40 Mg PEG BID Donepezil Hcl 5 Mg Tablet 5 Mg PEG BID Reglan (Metoclopramide Hcl) 10 Mg Tablet 5 Mg PO QIDACHS Cyproheptadine Hcl 2 Mg/5 Ml Syrup 10 Ml PEG TID Percocet 7.5-325 Mg Tablet (Oxycodone/Acetaminophen) 1 Each Tablet 1 Tab PO QID PRN FENTANYL 50mcg/hr (Fentanyl) 1 Each Patch.td72 1 Patch TP Q3DAYS Ondansetron Odt (Ondansetron) 4 Mg Tab.rapdis 4 Mg PEG QIDPRN PRN Vitals/I & O Vital Sign - Last 24 Hours 06/14/18 06/14/18 06/14/18 06/14/18 13:30 14:52 16:11 18:04 Temp 97.1 97.1 Pulse 72 64 Resp 18 20 B/P (MAP) 99/49 (66) 99/40 (59) Pulse Ox 97 100 O2 Delivery Simple Mask Tracheal Collar Trach Collar Tracheal Collar O2 Flow Rate 4.0 4.0 4.0 06/14/18 06/14/18 06/14/18 06/14/18 19:00 19:56 20:01 20:25 Temp 97.6 97.6 Pulse 89 Resp 20 18 B/P (MAP) 117/61 (79) Pulse Ox 94 90 90 O2 Delivery Tracheal Collar Trach Collar Tracheal Collar O2 Flow Rate 4.0 4.0 4.0 06/14/18 06/14/18 06/14/18 06/14/18 20:59 21:59 22:55 23:00 Temp 97.6 97.6 Pulse 77 Resp 18 18 20 B/P (MAP) 89/51 (64) Pulse Ox 90 90 90 95 O2 Delivery Tracheal Collar O2 Flow Rate 4.0 4.0 4.0 06/14/18 06/15/18 06/15/18 06/15/18 23:25 00:51 01:21 03:04 Temp 97.6 97.6 Pulse 80 Resp 18 18 18 20 B/P (MAP) 98/45 (62) Pulse Ox 95 95 95 97 O2 Delivery Tracheal Collar O2 Flow Rate 4.0 4.0 4.0 06/15/18 06/15/18 06/15/18 06/15/18 07:00 08:36 09:43 11:00 Temp 96.6 97.7 96.6 97.7 Pulse 75 88 Resp 20 20 B/P (MAP) 108/56 (73) 136/68 (90) Pulse Ox 100 90 99 O2 Delivery Tracheal Collar Room Air Tracheal Collar O2 Flow Rate 4.0 06/15/18 12:22 Pulse Ox 90 O2 Delivery Room Air Intake and Output 06/14/18 06/14/18 06/15/18 15:00 23:00 07:00 Intake Total 952 ml 1404 ml Output Total 900 ml 1200 ml Balance 52 ml 204 ml Nutrition Consultation Dietary Evaluation: Comments: continue bolus TF via PEG TF order updated w/ flushes Expected Outcomes/Goals: to meet > 75% est nutr needs Malnutrition Findings: Body Fat Depletion (Non Severe: Mod to Severe Weight Status: Underweight RUDDY QUEZADA MD Jun 15, 2018 13:23
--- NOTE | 2018-06-15 13:34 | PDOC ---
PULMONARY PROGRESS NOTES Subjective no soa Vitals Vital Signs Date Time Temp Pulse Resp B/P (MAP) Pulse Ox O2 Delivery O2 Flow Rate FiO2 06/15/18 12:22 90 Room Air 06/15/18 11:00 97.7 88 20 136/68 (90) 97.7 06/15/18 09:43 4.0 General: Alert, No acute distress Lungs: Other (decrease bs) Cardiovascular: S1, S2 Abdomen: Soft, Non-tender Neuro Exam: Alert Extremities: No Edema Skin: Warm Labs Laboratory Tests Test 06/14/18 09:22 06/14/18 10:09 06/14/18 10:20 06/14/18 14:55 White Blood Count 11.9 x10^3/uL (4.0-11.0) Red Blood Count 4.21 x10^6/uL (3.50-5.40) Hemoglobin 10.3 g/dL (12.0-15.5) Hematocrit 33.5 % (36.0-47.0) Mean Corpuscular Volume 79 fL (79-100) Mean Corpuscular Hemoglobin 25 pg (25-35) Mean Corpuscular Hemoglobin Concent 31 g/dL (31-37) Red Cell Distribution Width 17.3 % (11.5-14.5) Platelet Count 344 x10^3/uL (140-400) Neutrophils (%) (Auto) 69 % (31-73) Lymphocytes (%) (Auto) 23 % (24-48) Monocytes (%) (Auto) 8 % (0-9) Eosinophils (%) (Auto) 1 % (0-3) Basophils (%) (Auto) 1 % (0-3) Neutrophils # (Auto) 8.2 x10^3uL (1.8-7.7) Lymphocytes # (Auto) 2.7 x10^3/uL (1.0-4.8) Monocytes # (Auto) 0.9 x10^3/uL (0.0-1.1) Eosinophils # (Auto) 0.1 x10^3/uL (0.0-0.7) Basophils # (Auto) 0.1 x10^3/uL (0.0-0.2) Lactic Acid Level 1.5 mmol/L (0.4-2.0) Urine Collection Type U cath Urine Color Yellow Urine Clarity Clear Urine pH 6.0 Urine Specific [place] 1.010 Urine Protein Negative mg/dL (NEG-TRACE) Urine Glucose (UA) Negative mg/dL (NEG) Urine Ketones (Stick) Negative mg/dL (NEG) Urine Blood Negative (NEG) Urine Nitrite Negative (NEG) Urine Bilirubin Negative (NEG) Urine Urobilinogen Dipstick 0.2 mg/dL (0.2 mg/dL) Urine Leukocyte Esterase Negative (NEG) Urine RBC 0 /HPF (0-2) Urine WBC 0 /HPF (0-4) Urine Squamous Epithelial Cells Occ /LPF Urine Bacteria 0 /HPF (0-FEW) Sodium Level 131 mmol/L (136-145) Potassium Level 3.9 mmol/L (3.5-5.1) Chloride Level 94 mmol/L (98-107) Carbon Dioxide Level 32 mmol/L (21-32) Anion Gap 5 (6-14) Blood Urea Nitrogen 45 mg/dL (7-20) Creatinine 1.6 mg/dL (0.6-1.0) Estimated GFR (Cockcroft-Gault) 37.8 BUN/Creatinine Ratio 28 (6-20) Glucose Level 127 mg/dL (70-99) Calcium Level 8.1 mg/dL (8.5-10.1) Magnesium Level 4.0 mg/dL (1.8-2.4) Total Bilirubin 0.3 mg/dL (0.2-1.0) Aspartate Amino Transf (AST/SGOT) 22 U/L (15-37) Alanine Aminotransferase (ALT/SGPT) 33 U/L (14-59) Alkaline Phosphatase 69 U/L (46-116) Creatine Kinase 31 U/L (26-192) Creatine Kinase MB (Mass) < 0.5 ng/mL (0.0-3.6) Creatine Kinase MB Relative Index % (0-4) Troponin I Quantitative < 0.017 ng/mL (0.000-0.055) < 0.017 ng/mL (0.000-0.055) FT-Fss-U-Type Natriuretic Peptide 1215 pg/mL (0-449) Total Protein 6.8 g/dL (6.4-8.2) Albumin 2.5 g/dL (3.4-5.0) Albumin/Globulin Ratio 0.6 (1.0-1.7) Test 10/1/18 15:55 06/14/18 18:10 06/15/18 05:05 Nasal Screen MRSA (PCR) Negative (Negative) Troponin I Quantitative < 0.017 ng/mL (0.000-0.055) White Blood Count 8.7 x10^3/uL (4.0-11.0) Red Blood Count 4.26 x10^6/uL (3.50-5.40) Hemoglobin 10.7 g/dL (12.0-15.5) Hematocrit 34.0 % (36.0-47.0) Mean Corpuscular Volume 80 fL (79-100) Mean Corpuscular Hemoglobin 25 pg (25-35) Mean Corpuscular Hemoglobin Concent 32 g/dL (31-37) Red Cell Distribution Width 17.1 % (11.5-14.5) Platelet Count 335 x10^3/uL (140-400) Neutrophils (%) (Auto) 80 % (31-73) Lymphocytes (%) (Auto) 16 % (24-48) Monocytes (%) (Auto) 4 % (0-9) Eosinophils (%) (Auto) 0 % (0-3) Basophils (%) (Auto) 0 % (0-3) Neutrophils # (Auto) 6.9 x10^3uL (1.8-7.7) Lymphocytes # (Auto) 1.4 x10^3/uL (1.0-4.8) Monocytes # (Auto) 0.4 x10^3/uL (0.0-1.1) Eosinophils # (Auto) 0.0 x10^3/uL (0.0-0.7) Basophils # (Auto) 0.0 x10^3/uL (0.0-0.2) Sodium Level 135 mmol/L (136-145) Potassium Level 4.4 mmol/L (3.5-5.1) Chloride Level 95 mmol/L (98-107) Carbon Dioxide Level 32 mmol/L (21-32) Anion Gap 8 (6-14) Blood Urea Nitrogen 43 mg/dL (7-20) Creatinine 1.2 mg/dL (0.6-1.0) Estimated GFR (Cockcroft-Gault) 52.7 Glucose Level 134 mg/dL (70-99) Calcium Level 8.5 mg/dL (8.5-10.1) Laboratory Tests Test 06/14/18 14:55 06/14/18 15:55 06/14/18 18:10 06/15/18 05:05 Troponin I Quantitative < 0.017 ng/mL (0.000-0.055) < 0.017 ng/mL (0.000-0.055) Nasal Screen MRSA (PCR) Negative (Negative) White Blood Count 8.7 x10^3/uL (4.0-11.0) Red Blood Count 4.26 x10^6/uL (3.50-5.40) Hemoglobin 10.7 g/dL (12.0-15.5) Hematocrit 34.0 % (36.0-47.0) Mean Corpuscular Volume 80 fL (79-100) Mean Corpuscular Hemoglobin 25 pg (25-35) Mean Corpuscular Hemoglobin Concent 32 g/dL (31-37) Red Cell Distribution Width 17.1 % (11.5-14.5) Platelet Count 335 x10^3/uL (140-400) Neutrophils (%) (Auto) 80 % (31-73) Lymphocytes (%) (Auto) 16 % (24-48) Monocytes (%) (Auto) 4 % (0-9) Eosinophils (%) (Auto) 0 % (0-3) Basophils (%) (Auto) 0 % (0-3) Neutrophils # (Auto) 6.9 x10^3uL (1.8-7.7) Lymphocytes # (Auto) 1.4 x10^3/uL (1.0-4.8) Monocytes # (Auto) 0.4 x10^3/uL (0.0-1.1) Eosinophils # (Auto) 0.0 x10^3/uL (0.0-0.7) Basophils # (Auto) 0.0 x10^3/uL (0.0-0.2) Sodium Level 135 mmol/L (136-145) Potassium Level 4.4 mmol/L (3.5-5.1) Chloride Level 95 mmol/L (98-107) Carbon Dioxide Level 32 mmol/L (21-32) Anion Gap 8 (6-14) Blood Urea Nitrogen 43 mg/dL (7-20) Creatinine 1.2 mg/dL (0.6-1.0) Estimated GFR (Cockcroft-Gault) 52.7 Glucose Level 134 mg/dL (70-99) Calcium Level 8.5 mg/dL (8.5-10.1) Medications Active Scripts Medications Dose Route/Sig Max Daily Dose Days Date Category Atenolol-Chlorthal 50-25 Tb (Atenolol/Chlorthalidone) 1 Each Tablet 1 Tab PEG DAILY 06/15/18 Rx Lidocaine 1 Each Adh..patch 1 Each TP DAILY 06/14/18 Reported Cetirizine Hcl 10 Mg Tablet 1 Tab PO DAILY 06/14/18 Reported Losartan Potassium 100 Mg Tablet 100 Mg PO DAILY 06/14/18 Reported Gabapentin 300 Mg Capsule 300 Mg PO TID 30 02/18/18 Rx Culturelle (Lactobacillus Rhamnosus Gg) 1 Each Cap.sprink 1 Cap PO BID 30 07/07/17 Rx Pantoprazole Sodium 40 Mg Tablet.dr 40 Mg PEG BID 03/11/17 Reported Donepezil Hcl 5 Mg Tablet 5 Mg PEG BID 03/11/17 Reported Reglan (Metoclopramide Hcl) 10 Mg Tablet 5 Mg PO QIDACHS 03/11/17 Reported Cyproheptadine Hcl 2 Mg/5 Ml Syrup 10 Ml PEG TID 03/11/17 Reported Percocet 7.5-325 Mg Tablet (Oxycodone/Acetaminophen) 1 Each Tablet 1 Tab PO QID PRN 03/11/17 Reported FENTANYL 50mcg/hr (Fentanyl) 1 Each Patch.td72 1 Patch TP Q3DAYS 06/19/14 Reported Ondansetron Odt (Ondansetron) 4 Mg Tab.rapdis 4 Mg PEG QIDPRN PRN 06/19/[address] CHEST 1. Emphysema with pleural/parenchymal scarring. 2. Worsening right lower lobe infiltrate compatible with pneumonia with underlying bronchiectasis. 3. Chronic atelectasis/consolidation posterior medially in the left lower lobe, similar to that seen on 02/17/2018 4. Borderline mediastinal adenopathy with probable slight worsening in the subcarinal region. 5. Cardiomegaly with calcific plaquing of the aorta and coronary arteries. Impression . 1. Acute on chronic hypoxic respiratory failure secondary to most likely Gram-negative and Gram-positive pneumonia. 2. Abnormal chest x-ray with bilateral patchy infiltrates, more favoring pneumonia than congestive heart failure. 3. History of laryngeal cancer and lung cancer. Status post tracheostomy with multiple admissions for recurrent pneumonias. History of multidrug resistant Pseudomonas aeruginosa pneumonia in the past. 4. History of azotemia. 5. Severe protein-calorie malnutrition. 6. CT CHEST WITH Chronic atelectasis/consolidation posterior medially in the left lower lobe, similar to that seen on 02/17/2018. Borderline mediastinal adenopathy with probable slight worsening in the subcarinal region. ? RECURRENT MALIGNANCY Plan . 1. Continue with present antibiotics. 2. Continue with trach collar. Keep saturation 92% and above. 3. Obtain trach secretions for C and S. 4. F/U CT chest IN 3-4 months to f/u on worsening adenopathy 5. ID consulted,. patient has pneumonias with multidrug resistant organisms in the past. 6. Discussed with RN. We will follow along with you. MARY LANIER MD Jun 15, 2018 13:34
[2018-06-15] MEDS: CEFTOLOZANE IV SCH ×2 (14:05→21:32)
[2018-06-15] MEDS: TAZOBACTAM IV SCH ×2 (14:05→21:32)
[2018-06-15] MEDS: NORMAL SALINE IV SCH ×2 (14:05→21:32)
[2018-06-15 15:00] VITALS: BP 115/52
[2018-06-15 15:33] LABS: INFLUENZA A PATIENT NEGATIVE (NEGATIVE); INFLUENZA B PATIENT NEGATIVE (NEGATIVE)
[2018-06-15] MEDS: VANCOMYCIN 0.75 GM in IV NORMAL SALINE 250ML 250 ML IV SCH (17:45)
[2018-06-15 19:00] VITALS: BP 107/53
[2018-06-15 23:03] VITALS: BP 96/47
--- NOTE | 2018-06-16 01:50 | CONS ---
DATE OF CONSULTATION: 06/15/2018 REQUESTING PHYSICIAN: Dr. Daily. REASON FOR CONSULTATION: Pneumonia. HISTORY OF PRESENT ILLNESS: This patient is a 78-year-old female who presented from home with a fever of 102, increased tracheal secretions and hypoxia. She has a history of lung cancer, laryngeal cancer and chronic respiratory failure with a tracheostomy. A chest x-ray with a followup CT chest showed worsening right lower lobe infiltrate compatible with pneumonia with underlying bronchial ectasis as well as chronic atelectasis/consolidation in the left lower lobe. She was admitted, and she is currently on vancomycin and Zosyn. The patient says she is not feeling very well. She indicates she is having less work of breathing and is satting above 95% on 4 liters of oxygen. She complains of some abdominal discomfort about the PEG tube. Denies nausea, vomiting, diarrhea or cramps. She has had a history of multiple hospitalizations, most recently admitted in May for CRE pneumonia and treated with Zerbaxa. PAST MEDICAL HISTORY: History of laryngeal cancer, history of lung cancer, chronic respiratory failure, dysphagia, history of Clostridium difficile in 2016, history of multidrug resistant/CRE pseudomonas and pneumonia. Dementia, peripheral neuropathy, hyperlipidemia, congestive heart failure, hypertension, chronic obstructive pulmonary disease, sleep apnea, oxygen dependency, arthritis, anxiety, left femur fracture, history of MRSA. PAST SURGICAL HISTORY: Cataract extraction, oral surgery, tonsillectomy, tracheostomy, PEG tube placement. FAMILY HISTORY: Positive for lung cancer, heart disease, diabetes mellitus and hypertension. SOCIAL HISTORY: The patient lives at home. Former smoker. ALLERGIES: ASPIRIN. MEDICATIONS: Vancomycin, Zosyn. Probiotics and also one-time dose of dexamethasone on 06/14/2018. Other medications are available and have been reviewed on the NOV. REVIEW OF SYSTEMS: Per HPI, otherwise all other review of systems are negative. PHYSICAL EXAMINATION: GENERAL: The patient is propped up in bed, tired and weak appearance, in no apparent distress. VITAL SIGNS: Temperature is 96.6, blood pressure 108/56, heart rate 75, respiratory rate 20, pulse oximetry is 90% on 4 liters nasal cannula. BMI 21. HEENT: Normal conjunctivae. Oral mucosa is pink and moist. In dentures. NECK: Tracheostomy. LUNGS: Rhonchi in lower lung szymanski. Nonlabored. HEART: S1 and S2. ABDOMEN: Bowel sounds active, soft, nontender. PEG tube intact. EXTREMITIES: Trace edema. No cyanosis. SKIN: Warm without rash. NEUROLOGIC: Arouses easily to name, responds appropriately to simple questions and follows commands. LINES: Peripheral IV looks okay. She has a right-sided port that is not accessed and without signs of infection. LABORATORY DATA: Today's WBC 8.7 from 11.9, hemoglobin 10.7, platelet count 335,000. Creatinine 1.2 from 1.6 on admission, BUN 43, sodium 135, potassium 4.4, total bilirubin 0.3, AST 22, ALT 33, albumin 2.5. Urinalysis unremarkable for infection. MRSA screen negative. Blood cultures negative to date. IMAGING: Per HPI. Sputum culture pending. IMPRESSION: 1. Healthcare-associated pneumonia with history of carbapenem-resistant Enterobacteriaceae Pseudomonas in the past. 2. Leukocytosis, which has improved. 3. Acute on chronic respiratory failure. 4. Acute kidney injury. 5. Dysphagia, on tube feedings. 6. History of lung cancer. 7. History of Clostridium difficile in 2017. 8. History of methicillin-resistant Staphylococcus aureus. PLAN: Continue the vancomycin for now. Change Zosyn to Zerbaxa given history of multi-drug resistant organisms. She is to remain in contact isolation. We will check influenza screen and follow up on culture results. Monitor renal function closely assessment or impression. Thank you, Dr. Daily for asking us to participate in this patient's care. Should you have further questions or concerns, please call. ASTER MATOS MD DR: BROWN/sena JOB#: [id number] / [id number]
[2018-06-16 03:13] VITALS: BP 113/63
[2018-06-16] MEDS: TAZOBACTAM IV SCH ×3 (05:45→20:44)
[2018-06-16] MEDS: NORMAL SALINE IV SCH ×3 (05:45→20:44)
[2018-06-16] MEDS: CEFTOLOZANE IV SCH ×3 (05:45→20:44)
[2018-06-16 07:00] VITALS: BP 140/65
[2018-06-16] MEDS: IPRATRPIUM/ALBUTEROL 0.5/2.5MG 3 ML NEBU. NEB SCH ×4 (07:37→20:05)
[2018-06-16] MEDS: METOCLOPRAMIDE 10 MG TABLET. PO SCH ×4 (07:53→20:44)
[2018-06-16] MEDS: PANTOPRAZOLE 40 MG TABLET.DR. PO SCH ×2 (07:54→17:18)
--- NOTE | 2018-06-16 09:10 | PDOC ---
PULMONARY PROGRESS NOTES Subjective no soa Vitals Vital Signs Date Time Temp Pulse Resp B/P (MAP) Pulse Ox O2 Delivery O2 Flow Rate FiO2 06/16/18 07:37 90 Tracheal Collar 8.0 06/16/18 03:13 97.7 63 20 113/63 (80) 97.7 General: Alert, No acute distress Lungs: Other (decrease bs) Cardiovascular: S1, S2 Abdomen: Soft, Non-tender Neuro Exam: Alert Extremities: No Edema Skin: Warm Labs Laboratory Tests Test 06/14/18 09:22 06/14/18 10:09 06/14/18 10:20 06/14/18 14:55 White Blood Count 11.9 x10^3/uL (4.0-11.0) Red Blood Count 4.21 x10^6/uL (3.50-5.40) Hemoglobin 10.3 g/dL (12.0-15.5) Hematocrit 33.5 % (36.0-47.0) Mean Corpuscular Volume 79 fL (79-100) Mean Corpuscular Hemoglobin 25 pg (25-35) Mean Corpuscular Hemoglobin Concent 31 g/dL (31-37) Red Cell Distribution Width 17.3 % (11.5-14.5) Platelet Count 344 x10^3/uL (140-400) Neutrophils (%) (Auto) 69 % (31-73) Lymphocytes (%) (Auto) 23 % (24-48) Monocytes (%) (Auto) 8 % (0-9) Eosinophils (%) (Auto) 1 % (0-3) Basophils (%) (Auto) 1 % (0-3) Neutrophils # (Auto) 8.2 x10^3uL (1.8-7.7) Lymphocytes # (Auto) 2.7 x10^3/uL (1.0-4.8) Monocytes # (Auto) 0.9 x10^3/uL (0.0-1.1) Eosinophils # (Auto) 0.1 x10^3/uL (0.0-0.7) Basophils # (Auto) 0.1 x10^3/uL (0.0-0.2) Lactic Acid Level 1.5 mmol/L (0.4-2.0) Urine Collection Type U cath Urine Color Yellow Urine Clarity Clear Urine pH 6.0 Urine Specific [place] 1.010 Urine Protein Negative mg/dL (NEG-TRACE) Urine Glucose (UA) Negative mg/dL (NEG) Urine Ketones (Stick) Negative mg/dL (NEG) Urine Blood Negative (NEG) Urine Nitrite Negative (NEG) Urine Bilirubin Negative (NEG) Urine Urobilinogen Dipstick 0.2 mg/dL (0.2 mg/dL) Urine Leukocyte Esterase Negative (NEG) Urine RBC 0 /HPF (0-2) Urine WBC 0 /HPF (0-4) Urine Squamous Epithelial Cells Occ /LPF Urine Bacteria 0 /HPF (0-FEW) Sodium Level 131 mmol/L (136-145) Potassium Level 3.9 mmol/L (3.5-5.1) Chloride Level 94 mmol/L (98-107) Carbon Dioxide Level 32 mmol/L (21-32) Anion Gap 5 (6-14) Blood Urea Nitrogen 45 mg/dL (7-20) Creatinine 1.6 mg/dL (0.6-1.0) Estimated GFR (Cockcroft-Gault) 37.8 BUN/Creatinine Ratio 28 (6-20) Glucose Level 127 mg/dL (70-99) Calcium Level 8.1 mg/dL (8.5-10.1) Magnesium Level 4.0 mg/dL (1.8-2.4) Total Bilirubin 0.3 mg/dL (0.2-1.0) Aspartate Amino Transf (AST/SGOT) 22 U/L (15-37) Alanine Aminotransferase (ALT/SGPT) 33 U/L (14-59) Alkaline Phosphatase 69 U/L (46-116) Creatine Kinase 31 U/L (26-192) Creatine Kinase MB (Mass) < 0.5 ng/mL (0.0-3.6) Creatine Kinase MB Relative Index % (0-4) Troponin I Quantitative < 0.017 ng/mL (0.000-0.055) < 0.017 ng/mL (0.000-0.055) [id number]-[id number]-Type Natriuretic Peptide 1215 pg/mL (0-449) Total Protein 6.8 g/dL (6.4-8.2) Albumin 2.5 g/dL (3.4-5.0) Albumin/Globulin Ratio 0.6 (1.0-1.7) Test 06/14/18 15:55 06/14/18 18:10 06/15/18 05:05 06/15/18 13:00 Nasal Screen MRSA (PCR) Negative (Negative) Troponin I Quantitative < 0.017 ng/mL (0.000-0.055) White Blood Count 8.7 x10^3/uL (4.0-11.0) Red Blood Count 4.26 x10^6/uL (3.50-5.40) Hemoglobin 10.7 g/dL (12.0-15.5) Hematocrit 34.0 % (36.0-47.0) Mean Corpuscular Volume 80 fL (79-100) Mean Corpuscular Hemoglobin 25 pg (25-35) Mean Corpuscular Hemoglobin Concent 32 g/dL (31-37) Red Cell Distribution Width 17.1 % (11.5-14.5) Platelet Count 335 x10^3/uL (140-400) Neutrophils (%) (Auto) 80 % (31-73) Lymphocytes (%) (Auto) 16 % (24-48) Monocytes (%) (Auto) 4 % (0-9) Eosinophils (%) (Auto) 0 % (0-3) Basophils (%) (Auto) 0 % (0-3) Neutrophils # (Auto) 6.9 x10^3uL (1.8-7.7) Lymphocytes # (Auto) 1.4 x10^3/uL (1.0-4.8) Monocytes # (Auto) 0.4 x10^3/uL (0.0-1.1) Eosinophils # (Auto) 0.0 x10^3/uL (0.0-0.7) Basophils # (Auto) 0.0 x10^3/uL (0.0-0.2) Sodium Level 135 mmol/L (136-145) Potassium Level 4.4 mmol/L (3.5-5.1) Chloride Level 95 mmol/L (98-107) Carbon Dioxide Level 32 mmol/L (21-32) Anion Gap 8 (6-14) Blood Urea Nitrogen 43 mg/dL (7-20) Creatinine 1.2 mg/dL (0.6-1.0) Estimated GFR (Cockcroft-Gault) 52.7 Glucose Level 134 mg/dL (70-99) Calcium Level 8.5 mg/dL (8.5-10.1) Influenza Type A Antigen Negative (NEGATIVE) Influenza Type B Antigen Negative (NEGATIVE) Laboratory Tests Test 06/15/18 13:00 Influenza Type A Antigen Negative (NEGATIVE) Influenza Type B Antigen Negative (NEGATIVE) Medications Active Scripts Medications Dose Route/Sig Max Daily Dose Days Date Category Atenolol-Chlorthal 50-25 Tb (Atenolol/Chlorthalidone) 1 Each Tablet 1 Tab PEG DAILY 06/15/18 Rx Lidocaine 1 Each Adh..patch 1 Each TP DAILY 06/14/18 Reported Cetirizine Hcl 10 Mg Tablet 1 Tab PO DAILY 06/14/18 Reported Losartan Potassium 100 Mg Tablet 100 Mg PO DAILY 06/14/18 Reported Gabapentin 300 Mg Capsule 300 Mg PO TID 30 02/18/18 Rx Culturelle (Lactobacillus Rhamnosus Gg) 1 Each Cap.sprink 1 Cap PO BID 30 07/07/17 Rx Pantoprazole Sodium 40 Mg Tablet.dr 40 Mg PEG BID 03/11/17 Reported Donepezil Hcl 5 Mg Tablet 5 Mg PEG BID 03/11/17 Reported Reglan (Metoclopramide Hcl) 10 Mg Tablet 5 Mg PO QIDACHS 03/11/17 Reported Cyproheptadine Hcl 2 Mg/5 Ml Syrup 10 Ml PEG TID 03/11/17 Reported Percocet 7.5-325 Mg Tablet (Oxycodone/Acetaminophen) 1 Each Tablet 1 Tab PO QID PRN 03/11/17 Reported FENTANYL 50mcg/hr (Fentanyl) 1 Each Patch.td72 1 Patch TP Q3DAYS 06/19/14 Reported Ondansetron Odt (Ondansetron) 4 Mg Tab.rapdis 4 Mg PEG QIDPRN PRN 06/19/[address] CHEST 1. Emphysema with pleural/parenchymal scarring. 2. Worsening right lower lobe infiltrate compatible with pneumonia with underlying bronchiectasis. 3. Chronic atelectasis/consolidation posterior medially in the left lower lobe, similar to that seen on 02/17/2018 4. Borderline mediastinal adenopathy with probable slight worsening in the subcarinal region. 5. Cardiomegaly with calcific plaquing of the aorta and coronary arteries. Impression . 1. Acute on chronic hypoxic respiratory failure secondary to most likely Gram-negative and Gram-positive pneumonia. h/o MDR PSA 2. Abnormal chest x-ray with bilateral patchy infiltrates, more favoring pneumonia than congestive heart failure. 3. History of laryngeal cancer and lung cancer. Status post tracheostomy with multiple admissions for recurrent pneumonias. History of multidrug resistant Pseudomonas aeruginosa pneumonia in the past. 4. History of azotemia. 5. Severe protein-calorie malnutrition. 6. CT CHEST WITH Chronic atelectasis/ Persistent mass like consolidation posterior medially in the left lower lobe, similar to that seen on 02/17/2018, also in december. suspect known cancer .Borderline mediastinal adenopathy with probable slight worsening in the subcarinal region. reactive vs related to malignancy. Poor candidate for further treatment Plan . 1. Continue with present antibiotics. 2. Continue with trach collar. Keep saturation 92% and above. 3. Obtain trach secretions for C and S. 4. F/U CT chest IN 3-4 months to f/u on worsening adenopathy 5. Abx per ID,. patient has pneumonias with multidrug resistant organisms in the past. 6. Discussed with RN. We will follow along with you. MARY LANIER MD Jun 16, 2018 09:10
[2018-06-16] MEDS: LACTOBACILLUS RHAMNOSUS GG 1 CAPSULE. PO SCH ×2 (09:51→20:44)
[2018-06-16] MEDS: CETIRIZINE HCL 10 MG TABLET. PO SCH (09:51)
[2018-06-16] MEDS: DONEPEZIL HCL 5 MG TABLET. PEG SCH ×2 (09:51→20:44)
[2018-06-16] MEDS: CYPROHEPTADINE 4 MG TABLET. PO SCH ×3 (09:52→20:44)
[2018-06-16] MEDS: GABAPENTIN 300 MG CAPSULE. PO SCH ×3 (09:52→20:44)
[2018-06-16 11:00] VITALS: BP 135/65
--- NOTE | 2018-06-16 11:34 | PDOC ---
Infectious Disease Note Subjective Subjective pt is feeling better ROS ROS no n/v/d/sob Vital Sign Vital Signs Vital Signs Date Time Temp Pulse Resp B/P (MAP) Pulse Ox O2 Delivery O2 Flow Rate FiO2 06/16/18 11:22 Tracheal Collar 8.0 06/16/18 07:37 90 06/16/18 07:00 97.1 70 18 140/65 (90) 97.1 Physical Exam PHYSICAL EXAM GENERAL: The patient is propped up in bed, tired and weak appearance, in no apparent distress. VITAL SIGNS: stable HEENT: Normal conjunctivae. Oral mucosa is pink and moist. In dentures. NECK: Tracheostomy. LUNGS: Rhonchi in lower lung szymanski. Nonlabored. HEART: S1 and S2. ABDOMEN: Bowel sounds active, soft, nontender. PEG tube intact. EXTREMITIES: Trace edema. No cyanosis. SKIN: Warm without rash. NEUROLOGIC: Arouses easily to name, responds appropriately to simple questions and follows commands. LINES: Peripheral IV looks okay. She has a right-sided port that is not accessed and without signs of infection. Labs Lab Laboratory Tests Test 06/15/18 13:00 Influenza Type A Antigen Negative (NEGATIVE) Influenza Type B Antigen Negative (NEGATIVE) Micro Microbiology 06/14/18 Blood Culture - Preliminary, Resulted NO GROWTH AFTER 2 DAYS Objective Assessment 1. Healthcare-associated pneumonia with history of carbapenem-resistant Enterobacteriaceae Pseudomonas in the past. 2. Leukocytosis, which has improved. 3. Acute on chronic respiratory failure. 4. Acute kidney injury. 5. Dysphagia, on tube feedings. 6. History of lung cancer. 7. History of Clostridium difficile in 2017. 8. History of methicillin-resistant Staphylococcus aureus. Plan Plan of Care Continue vanc for now change Zosyn to Zerbexa for h/o MDRO Contact isolation Influenza screen f/u cultures Monitor renal function closely ASTER MATOS MD Jun 16, 2018 11:34
--- NOTE | 2018-06-16 13:16 | PDOC ---
PROGRESS NOTES Chief Complaint Chief Complaint sepsis Acute on chronic hypercapnic respiratory failure w. trach marked resp secretions History of H,CAP and multi drug resistant organism Cachexia Chronic dysphagia, chronically PEG on tube feeds .Severe PCM Allergies to aspirin .History bacteremia Anemia of chronic disease Leukocytosis. History of lung cancer. .History of laryngeal cancer. mild dementia HTN History of Present Illness History of Present Illness pulm, id consult broad abx cont current looks improved Vitals Vitals Vital Signs Date Time Temp Pulse Resp B/P (MAP) Pulse Ox O2 Delivery O2 Flow Rate FiO2 06/16/18 11:22 Tracheal Collar 8.0 06/16/18 11:00 97.7 67 18 135/65 (88) 98 97.7 Physical Exam Physical Exam GENERAL: The patient is propped up in bed, tired and weak appearance, in no apparent distress. VITAL SIGNS: stable HEENT: Normal conjunctivae. Oral mucosa is pink and moist. In dentures. NECK: Tracheostomy. LUNGS: Rhonchi in lower lung szymanski. Nonlabored. HEART: S1 and S2. ABDOMEN: Bowel sounds active, soft, nontender. PEG tube intact. EXTREMITIES: Trace edema. No cyanosis. SKIN: Warm without rash. NEUROLOGIC: Arouses easily to name, responds appropriately to simple questions and follows commands. LINES: Peripheral IV looks okay. She has a right-sided port that is not accessed and without signs of infection. General: Alert, Cooperative, No acute distress Heart: Normal S1, No murmurs Lungs: Other (decrease bs) Abdomen: Normal bowel sounds, No tenderness Extremities: No clubbing, No cyanosis, No edema Skin: No significant lesion Assessment and Plan Assessmemt and Plan Problems Medical Problems: (1) Acute on chronic renal insufficiency Status: Acute (2) Hypermagnesemia Status: Acute (3) Hypoxia Status: Acute (4) Respiratory distress Status: Acute Comment Review of Relevant I have reviewed the following items miko (where applicable) has been applied. Labs Laboratory Tests Test 06/14/18 14:55 06/14/18 15:55 06/14/18 18:10 06/15/18 05:05 Troponin I Quantitative < 0.017 ng/mL (0.000-0.055) < 0.017 ng/mL (0.000-0.055) Nasal Screen MRSA (PCR) Negative (Negative) White Blood Count 8.7 x10^3/uL (4.0-11.0) Red Blood Count 4.26 x10^6/uL (3.50-5.40) Hemoglobin 10.7 g/dL (12.0-15.5) Hematocrit 34.0 % (36.0-47.0) Mean Corpuscular Volume 80 fL (79-100) Mean Corpuscular Hemoglobin 25 pg (25-35) Mean Corpuscular Hemoglobin Concent 32 g/dL (31-37) Red Cell Distribution Width 17.1 % (11.5-14.5) Platelet Count 335 x10^3/uL (140-400) Neutrophils (%) (Auto) 80 % (31-73) Lymphocytes (%) (Auto) 16 % (24-48) Monocytes (%) (Auto) 4 % (0-9) Eosinophils (%) (Auto) 0 % (0-3) Basophils (%) (Auto) 0 % (0-3) Neutrophils # (Auto) 6.9 x10^3uL (1.8-7.7) Lymphocytes # (Auto) 1.4 x10^3/uL (1.0-4.8) Monocytes # (Auto) 0.4 x10^3/uL (0.0-1.1) Eosinophils # (Auto) 0.0 x10^3/uL (0.0-0.7) Basophils # (Auto) 0.0 x10^3/uL (0.0-0.2) Sodium Level 135 mmol/L (136-145) Potassium Level 4.4 mmol/L (3.5-5.1) Chloride Level 95 mmol/L (98-107) Carbon Dioxide Level 32 mmol/L (21-32) Anion Gap 8 (6-14) Blood Urea Nitrogen 43 mg/dL (7-20) Creatinine 1.2 mg/dL (0.6-1.0) Estimated GFR (Cockcroft-Gault) 52.7 Glucose Level 134 mg/dL (70-99) Calcium Level 8.5 mg/dL (8.5-10.1) Test 06/15/18 13:00 Influenza Type A Antigen Negative (NEGATIVE) Influenza Type B Antigen Negative (NEGATIVE) Microbiology 06/14/18 Blood Culture - Preliminary, Resulted NO GROWTH AFTER 2 DAYS Medications Current Medications Albuterol/ Ipratropium (Duoneb) 3 ml 1X ONCE NEB Last administered on at 09:34; Start 06/14/18 at 09:15; Stop 06/14/18 at 09:22; Status DC Sodium Chloride 1,000 ml @ 1,000 mls/hr 1X ONCE IV Last administered on at 09:42; Start 06/14/18 at 09:15; Stop 06/14/18 at 10:14; Status DC Bumetanide (Bumex) 0.5 mg 1X ONCE IV Last administered on 06/14/18at 13:32; Start 06/14/18 at 11:15; Stop 06/14/18 at 11:16; Status DC Dexamethasone Sodium Phosphate (Decadron) 10 mg 1X ONCE IV Last administered on 06/14/18at 13:32; Start 06/14/18 at 12:00; Stop 06/14/18 at 12:01; Status DC Ondansetron HCl (Zofran) 4 mg PRN Q8HRS PRN IV NAUSEA/VOMITING; Start 06/14/18 at 12:15; Stop 06/15/18 at 12:14; Status DC Fentanyl Citrate (Fentanyl 2ml Vial) 50 mcg PRN Q2HR PRN IV PAIN Last administered on 06/14/18at 22:55; Start 06/14/18 at 12:15; Stop 06/15/18 at 12:14 ; Status DC Pharmacy Consult (C.diff Med Screen By Rx) 1 each 1X ONCE MC ; Start 06/14/18 at 15:45; Stop 06/14/18 at 15:46; Status UNV Influenza Virus Vaccine (Afluria Trivalent [id number] Syringe) 0.5 ml ONCE ONCE VAX IM Last administered on 06/14/18at 16:01; Start 06/14/18 at 16:00; Stop 06/14/18 at 16:01; Status DC Cetirizine HCl (ZyrTEC) 10 mg DAILY PO Last administered on 06/16/18at 09:51; Start 06/15/18 at 09:00 Fentanyl (Duragesic 50mcg/ Hr Patch) 1 patch Q3DAYS TD ; Start 06/15/18 at 09:00 ; Stop 06/15/18 at 09:00; Status DC Lactobacillus Rhamnosus (Culturelle) 1 cap BID PO Last administered on 09:51; Start 06/14/18 at 21:00 Metoclopramide HCl (Reglan) 5 mg QIDACHS PO Last administered on 06/16/18at 12: 15; Start 06/14/18 at 16:30 Ondansetron HCl (Zofran Odt) 4 mg QIDPRN PRN PEG NAUSEA/VOMITING; Start at 16:00 Oxycodone/ Acetaminophen (Percocet 7.5/ 325) 1 tab QID PRN PO PAIN Last administered on 06/15/18 17:45; Start 06/14/18 at 16:00 Pantoprazole Sodium (Protonix) 40 mg BIDAC PO Last administered on 06/16/18 07 :54; Start 06/14/18 at 16:30 Non-Formulary Medication (Atenolol/ Chlorthalidone (Atenolol-Chlorthal 50-25 Tb) ) 1 tab DAILY PEG ; Start 06/15/18 at 09:00; Stop 06/15/18 at 09:00; Status DC Cyproheptadine HCl (Periactin) 10 mg TID PO Last administered on 06/16/18 09: 52; Start 06/14/18 at 21:00 Donepezil HCl (Aricept) 5 mg BID PEG Last administered on 06/16/18 09:51; Start 06/14/18 at 21:00 Gabapentin (Neurontin) 300 mg TID PO Last administered on 06/16/18at 09:52; Start 06/14/18 at 21:00 Lidocaine (Lidoderm) 1 patch DAILY TD Last administered on 06/15/18at 09:43; Start 06/15/18 at 09:00 Vancomycin HCl 1.5 gm/Sodium Chloride 500 ml @ 250 mls/hr Q12H IV ; Start 06/14 at 16:00; Status UNV Vancomycin HCl (Vanco Per Pharmacy) 1 each PRN DAILY PRN MC SEE COMMENTS Last administered on 06/15/18at 12:29; Start 06/14/18 at 16:00 Meropenem 500 mg/ Sodium Chloride 50 ml @ 100 mls/hr Q8HRS IV ; Start 06/14/18 at 22:00; Stop 06/14/18 at 22:00; Status DC Piperacillin Sod/ Tazobactam Sod 3.375 gm/Sodium Chloride 50 ml @ 100 mls/hr Q6HRS IV Last administered on 06/15/18at 04:58; Start 06/14/18 at 17:00; Stop 06/15/18 at 11:10; Status DC Piperacillin Sod/ Tazobactam Sod (Zosyn Per Pharmacy) 1 each PRN DAILY PRN MC SEE COMMENTS; Start 06/14/18 at 16:15; Status UNV Acetaminophen (Tylenol) 650 mg PRN Q6HRS PRN PO FEVER; Start 06/14/18 at 16:15 Ondansetron HCl (Zofran) 4 mg PRN Q6HRS PRN IV NAUSEA/VOMITING Last administered on 06/15/18at 14:04; Start 06/14/18 at 16:15 Morphine Sulfate (Morphine Sulfate) 2 mg PRN Q2HR PRN IV MODERATE TO SEVERE PAIN Last administered on 06/15/18at 20:37; Start 06/14/18 at 16:15 Tramadol HCl (Ultram) 50 mg PRN Q6HRS PRN PO MILD PAIN; Start 06/14/18 at 16:15 Docusate Sodium (Colace) 100 mg PRN DAILY PRN PO CONSTIPATION; Start 06/14/18 at 16:15 Albuterol/ Ipratropium (Duoneb) 3 ml RTQID NEB Last administered on 06/16/18at 11:22; Start 06/14/18 at 20:00 Albuterol Sulfate (Ventolin Neb Soln) 2.5 mg PRN Q2HR PRN NEB SHORTNESS OF BREATH; Start 06/14/18 at 16:15 Guaifenesin (Mucinex) 600 mg BID PO ; Start 06/14/18 at 21:00; Stop 06/14/18 at 21:00; Status DC Vancomycin HCl 1.25 gm/Sodium Chloride 250 ml @ 166.667 mls/hr 1X ONCE IV Last administered on 06/14/18at 18:04; Start 06/14/18 at 17:00; Stop 06/14/18 at 18:29; Status DC Fentanyl (Duragesic 50mcg/ Hr Patch) 1 patch Q3DAYS TD ; Start 06/17/18 at 09:00 ; Stop 06/30/18 at 08:59 Vancomycin HCl 1 gm/Sodium Chloride 250 ml @ 250 mls/hr Q48H IV ; Start at 18:00; Stop 06/16/18 at 18:00; Status DC Vancomycin HCl (Vancomycin Trough Level) 1 each 1X ONCE MC ; Start 06/17/18 at 17:30; Stop 06/17/18 at 17:31 Ceftolozane/ Tazobactam 750 mg/ Sodium Chloride 50 ml @ 50 mls/hr Q8HRS IV Last administered on 06/16/18at 05:45; Start 06/15/18 at 14:00 Vancomycin HCl 0.75 gm/Sodium Chloride 250 ml @ 250 mls/hr Q24H IV Last administered on 06/15/18at 17:45; Start 06/15/18 at 18:00 Active Scripts Active Atenolol-Chlorthal 50-25 Tb (Atenolol/Chlorthalidone) 1 Each Tablet 1 Tab PEG DAILY Gabapentin 300 Mg Capsule 300 Mg PO TID 30 Days Culturelle (Lactobacillus Rhamnosus Gg) 1 Each Cap.sprink 1 Cap PO BID 30 Days Reported Lidocaine 1 Each Adh..patch 1 Each TP DAILY Cetirizine Hcl 10 Mg Tablet 1 Tab PO DAILY Losartan Potassium 100 Mg Tablet 100 Mg PO DAILY Pantoprazole Sodium 40 Mg Tablet.dr 40 Mg PEG BID Donepezil Hcl 5 Mg Tablet 5 Mg PEG BID Reglan (Metoclopramide Hcl) 10 Mg Tablet 5 Mg PO QIDACHS Cyproheptadine Hcl 2 Mg/5 Ml Syrup 10 Ml PEG TID Percocet 7.5-325 Mg Tablet (Oxycodone/Acetaminophen) 1 Each Tablet 1 Tab PO QID PRN FENTANYL 50mcg/hr (Fentanyl) 1 Each Patch.td72 1 Patch TP Q3DAYS Ondansetron Odt (Ondansetron) 4 Mg Tab.rapdis 4 Mg PEG QIDPRN PRN Vitals/I & O Vital Sign - Last 24 Hours 06/15/18 06/15/18 06/15/18 06/15/18 13:59 15:00 15:56 17:45 Temp 97.7 97.7 Pulse 83 Resp 20 B/P (MAP) 115/52 (73) Pulse Ox 97 O2 Delivery Tracheal Collar Tracheal Collar O2 Flow Rate 4.0 10.0 10.0 06/15/18 06/15/18 06/15/18 06/15/18 18:45 19:00 19:20 19:45 Temp 97.9 97.9 Pulse 82 Resp 20 B/P (MAP) 107/53 (71) Pulse Ox 97 97 95 O2 Delivery Tracheal Collar Tracheal Collar Trach Collar O2 Flow Rate 10.0 10.0 10.0 06/15/18 06/15/18 06/15/18 06/16/18 20:37 21:07 23:03 03:13 Temp 97.7 97.7 97.7 97.7 Pulse 81 63 Resp 20 20 B/P (MAP) 96/47 (63) 113/63 (80) Pulse Ox 95 95 94 100 O2 Delivery Tracheal Collar Tracheal Collar O2 Flow Rate 10.0 10.0 06/16/18 06/16/18 06/16/18 06/16/18 07:00 07:37 08:25 11:00 Temp 97.1 97.7 97.1 97.7 Pulse 70 67 Resp 18 18 B/P (MAP) 140/65 (90) 135/65 (88) Pulse Ox 98 90 98 O2 Delivery Tracheal Collar Tracheal Collar Trach Collar Tracheal Collar O2 Flow Rate 10.0 8.0 8.0 10.0 06/16/18 11:22 O2 Delivery Tracheal Collar O2 Flow Rate 8.0 Intake and Output 06/15/18 06/15/18 06/16/18 15:00 23:00 07:00 Intake Total 1332 ml 990 ml 50 ml Output Total 350 ml Balance 1332 ml 990 ml -300 ml Nutrition Consultation Dietary Evaluation: Comments: continue bolus TF via PEG TF order updated w/ flushes Expected Outcomes/Goals: to meet > 75% est nutr needs Malnutrition Findings: Body Fat Depletion (Non Severe: Mod to Severe Weight Status: Underweight RUDDY QUEZADA MD Jun 16, 2018 13:16
[2018-06-16 15:00] VITALS: BP 116/57
[2018-06-16] MEDS: VANCOMYCIN PER PHARMACY MC PRN (17:05)
[2018-06-16] MEDS: LIDOCAINE (700MG/PATCH) PATCH. TD SCH (17:21)
[2018-06-16] MEDS: oxyCODONE/APAP 7.5/325 1 TAB TABLET PO PRN (17:35)
[2018-06-16] MEDS ORDERED: VANCOMYCIN 1 GM in IV NORMAL SALINE 250ML 250 ML IV SCH (18:00)
[2018-06-16] MEDS: VANCOMYCIN 0.75 GM in IV NORMAL SALINE 250ML 250 ML IV SCH (18:22)
[2018-06-16 19:00] VITALS: BP 116/62
[2018-06-16 23:00] VITALS: BP 115/77
[2018-06-17] MEDS: MORPHINE SULFATE 2 MG/ML VIAL. IV PRN (02:34)
[2018-06-17 03:00] VITALS: BP 159/81
[2018-06-17] MEDS: CEFTOLOZANE IV SCH ×3 (05:38→21:35)
[2018-06-17] MEDS: TAZOBACTAM IV SCH ×3 (05:38→21:35)
[2018-06-17] MEDS: NORMAL SALINE IV SCH ×3 (05:38→21:35)
[2018-06-17 07:00] VITALS: BP 165/74
[2018-06-17] MEDS: PANTOPRAZOLE 40 MG TABLET.DR. PO SCH ×2 (07:30→08:45)
[2018-06-17] MEDS: IPRATRPIUM/ALBUTEROL 0.5/2.5MG 3 ML NEBU. NEB SCH ×4 (07:44→20:09)
[2018-06-17] MEDS: DONEPEZIL HCL 5 MG TABLET. PEG SCH ×2 (08:44→21:22)
[2018-06-17] MEDS: GABAPENTIN 300 MG CAPSULE. PO SCH ×3 (08:44→21:21)
[2018-06-17] MEDS: oxyCODONE/APAP 7.5/325 1 TAB TABLET PO PRN (08:45)
[2018-06-17] MEDS: METOCLOPRAMIDE 10 MG TABLET. PO SCH ×4 (08:46→21:22)
[2018-06-17] MEDS: CETIRIZINE HCL 10 MG TABLET. PO SCH (08:46)
[2018-06-17] MEDS: LACTOBACILLUS RHAMNOSUS GG 1 CAPSULE. PO SCH ×2 (08:46→21:22)
[2018-06-17] MEDS: CYPROHEPTADINE 4 MG TABLET. PO SCH ×3 (08:46→21:21)
[2018-06-17] MEDS: LIDOCAINE (700MG/PATCH) PATCH. TD SCH (08:47)
[2018-06-17] MEDS ORDERED: fentaNYL 50MCG/HR PATCH 1 PATCH PATCH.TD72 TD SCH (09:00)
[2018-06-17] MEDS: LANSOPRAZOLE 30 MG TAB.RAP.DR FT SCH ×2 (10:07→17:04)
--- NOTE | 2018-06-17 10:49 | PDOC ---
Infectious Disease Note Subjective Subjective pt is feeling better ROS ROS no n/v/d/sob Vital Sign Vital Signs Vital Signs Date Time Temp Pulse Resp B/P (MAP) Pulse Ox O2 Delivery O2 Flow Rate FiO2 06/17/18 08:45 Tracheal Collar 06/17/18 08:00 10.0 06/17/18 07:00 97.6 81 18 165/74 (104) 100 97.6 Physical Exam PHYSICAL EXAM GENERAL: The patient is propped up in bed, tired and weak appearance, in no apparent distress. VITAL SIGNS: stable HEENT: Normal conjunctivae. Oral mucosa is pink and moist. In dentures. NECK: Tracheostomy. LUNGS: Rhonchi in lower lung szymanski. Nonlabored. HEART: S1 and S2. ABDOMEN: Bowel sounds active, soft, nontender. PEG tube intact. EXTREMITIES: Trace edema. No cyanosis. SKIN: Warm without rash. NEUROLOGIC: Arouses easily to name, responds appropriately to simple questions and follows commands. LINES: Peripheral IV looks okay. She has a right-sided port that is not accessed and without signs of infection. Labs Micro GRAM STAIN WHITE BLOOD CELLS Final Few GRAM STAIN EPITHELIAL CELLS Final Few GRAM STAIN RESULT 1 Final Comment Few gram negative rods. GRAM STAIN RESULT 2 Final Comment Few gram positive cocci GRAM STAIN RESULT 3 Final Comment Few gram positive rods. GRAM STAIN EVALUATION Final Comment This specimen is of good quality and is acceptable for routine bacterial culture. Performed at: [facility], [place], [place] [id number] Oil Extractor: YANG Lawrence MD, Phone: [phone] SPUTUM CULTURE-LC PENDING Objective Assessment 1. Healthcare-associated pneumonia with history of carbapenem-resistant Enterobacteriaceae Pseudomonas in the past. 2. Leukocytosis, which has improved. 3. Acute on chronic respiratory failure. 4. Acute kidney injury. 5. Dysphagia, on tube feedings. 6. History of lung cancer. 7. History of Clostridium difficile in 2017. 8. History of methicillin-resistant Staphylococcus aureus. Plan Plan of Care Continue vanc and Zerbexa for h/o MDRO Contact isolation Influenza screen f/u cultures Monitor renal function closely ASTER MATOS MD Jun 17, 2018 10:49
[2018-06-17 11:00] VITALS: BP 116/61
--- NOTE | 2018-06-17 11:26 | PDOC ---
PULMONARY PROGRESS NOTES Subjective no soa Vitals Vital Signs Date Time Temp Pulse Resp B/P (MAP) Pulse Ox O2 Delivery O2 Flow Rate FiO2 06/17/18 08:45 Tracheal Collar 06/17/18 08:00 10.0 06/17/18 07:00 97.6 81 18 165/74 (104) 100 97.6 General: Alert, No acute distress Lungs: Other (decrease bs) Cardiovascular: S1, S2 Abdomen: Soft, Non-tender Neuro Exam: Alert Extremities: No Edema Skin: Warm Labs Laboratory Tests Test 06/15/18 13:00 Influenza Type A Antigen Negative (NEGATIVE) Influenza Type B Antigen Negative (NEGATIVE) Medications Active Scripts Medications Dose Route/Sig Max Daily Dose Days Date Category Atenolol-Chlorthal 50-25 Tb (Atenolol/Chlorthalidone) 1 Each Tablet 1 Tab PEG DAILY 06/15/18 Rx Lidocaine 1 Each Adh..patch 1 Each TP DAILY 06/14/18 Reported Cetirizine Hcl 10 Mg Tablet 1 Tab PO DAILY 06/14/18 Reported Losartan Potassium 100 Mg Tablet 100 Mg PO DAILY 06/14/18 Reported Gabapentin 300 Mg Capsule 300 Mg PO TID 30 02/18/18 Rx Culturelle (Lactobacillus Rhamnosus Gg) 1 Each Cap.sprink 1 Cap PO BID 30 07/07/17 Rx Pantoprazole Sodium 40 Mg Tablet.dr 40 Mg PEG BID 03/11/17 Reported Donepezil Hcl 5 Mg Tablet 5 Mg PEG BID 03/11/17 Reported Reglan (Metoclopramide Hcl) 10 Mg Tablet 5 Mg PO QIDACHS 03/11/17 Reported Cyproheptadine Hcl 2 Mg/5 Ml Syrup 10 Ml PEG TID 03/11/17 Reported Percocet 7.5-325 Mg Tablet (Oxycodone/Acetaminophen) 1 Each Tablet 1 Tab PO QID PRN 03/11/17 Reported FENTANYL 50mcg/hr (Fentanyl) 1 Each Patch.td72 1 Patch TP Q3DAYS 06/19/14 Reported Ondansetron Odt (Ondansetron) 4 Mg Tab.rapdis 4 Mg PEG QIDPRN PRN 06/19/[address] CHEST 1. Emphysema with pleural/parenchymal scarring. 2. Worsening right lower lobe infiltrate compatible with pneumonia with underlying bronchiectasis. 3. Chronic atelectasis/consolidation posterior medially in the left lower lobe, similar to that seen on 02/17/2018 4. Borderline mediastinal adenopathy with probable slight worsening in the subcarinal region. 5. Cardiomegaly with calcific plaquing of the aorta and coronary arteries. Impression . 1. Acute on chronic hypoxic respiratory failure secondary to most likely Gram-negative and Gram-positive pneumonia. h/o MDR PSA 2. Abnormal chest x-ray with bilateral patchy infiltrates, more favoring pneumonia than congestive heart failure. 3. History of laryngeal cancer and lung cancer. Status post tracheostomy with multiple admissions for recurrent pneumonias. History of multidrug resistant Pseudomonas aeruginosa pneumonia in the past. 4. History of azotemia. 5. Severe protein-calorie malnutrition. 6. CT CHEST WITH Chronic atelectasis/ Persistent mass like consolidation posterior medially in the left lower lobe, similar to that seen on 02/17/2018, also in December. suspect known cancer .Borderline mediastinal adenopathy with probable slight worsening in the subcarinal region. reactive vs related to malignancy. Poor candidate for further treatment Plan . 1. Continue with present antibiotics. 2. Continue with trach collar. Keep saturation 92% and above. 3. trach secretions with gram + rods 4. F/U CT chest IN 3-4 months to f/u on worsening adenopathy 5. Abx per ID,. patient has pneumonias with multidrug resistant organisms in the past. 6. Discussed with RN. We will follow along with you. MRAY LANIER MD Jun 17, 2018 11:26
[2018-06-17 15:00] VITALS: BP 158/76
--- NOTE | 2018-06-17 15:05 | PDOC ---
PROGRESS NOTES Chief Complaint Chief Complaint sepsis Acute on chronic hypercapnic respiratory failure w. trach marked resp secretions History of H,CAP and multi drug resistant organism Cachexia Chronic dysphagia, chronically PEG on tube feeds .Severe PCM Allergies to aspirin .History bacteremia Anemia of chronic disease Leukocytosis. History of lung cancer. .History of laryngeal cancer. mild dementia HTN History of Present Illness History of Present Illness broad abx cont current looks improved Vitals Vitals Vital Signs Date Time Temp Pulse Resp B/P (MAP) Pulse Ox O2 Delivery O2 Flow Rate FiO2 06/17/18 12:46 High Flow Nasal Cannula 06/17/18 11:00 97.5 83 16 116/61 (79) 97 10.0 97.5 Physical Exam Physical Exam GENERAL: The patient is propped up in bed, tired and weak appearance, in no apparent distress. VITAL SIGNS: stable HEENT: Normal conjunctivae. Oral mucosa is pink and moist. In dentures. NECK: Tracheostomy. LUNGS: Rhonchi in lower lung szymanski. Nonlabored. HEART: S1 and S2. ABDOMEN: Bowel sounds active, soft, nontender. PEG tube intact. EXTREMITIES: Trace edema. No cyanosis. SKIN: Warm without rash. NEUROLOGIC: Arouses easily to name, responds appropriately to simple questions and follows commands. LINES: Peripheral IV looks okay. She has a right-sided port that is not accessed and without signs of infection. General: Alert, Cooperative, No acute distress Heart: Normal S1, No murmurs Lungs: Other (decrease bs) Abdomen: Normal bowel sounds, No tenderness Extremities: No clubbing, No cyanosis, No edema Skin: No significant lesion Assessment and Plan Assessmemt and Plan Problems Medical Problems: (1) Acute on chronic renal insufficiency Status: Acute (2) Hypermagnesemia Status: Acute (3) Hypoxia Status: Acute (4) Respiratory distress Status: Acute Comment Review of Relevant I have reviewed the following items miko (where applicable) has been applied. Labs Microbiology 06/14/18 Blood Culture - Preliminary, Resulted NO GROWTH AFTER 3 DAYS 06/14/18 - Final, Resulted 06/14/18 - Final, Resulted 06/14/18 - Final, Resulted 06/14/18 - Final, Resulted 06/14/18 - Final, Resulted 06/14/18 Gram Stain Evaluation - Final, Resulted 06/14/18 Sputum Culture - Preliminary, Resulted 06/14/18 Sputum Result 1 - Final, Resulted 06/14/18 Sputum Result 2 - Final, Resulted Medications Current Medications Albuterol/ Ipratropium (Duoneb) 3 ml 1X ONCE NEB Last administered on at 09:34; Start 06/14/18 at 09:15; Stop 06/14/18 at 09:22; Status DC Sodium Chloride 1,000 ml @ 1,000 mls/hr 1X ONCE IV Last administered on at 09:42; Start 06/14/18 at 09:15; Stop 06/14/18 at 10:14; Status DC Bumetanide (Bumex) 0.5 mg 1X ONCE IV Last administered on 06/14/18at 13:32; Start 06/14/18 at 11:15; Stop 06/14/18 at 11:16; Status DC Dexamethasone Sodium Phosphate (Decadron) 10 mg 1X ONCE IV Last administered on 06/14/18at 13:32; Start 06/14/18 at 12:00; Stop 06/14/18 at 12:01; Status DC Ondansetron HCl (Zofran) 4 mg PRN Q8HRS PRN IV NAUSEA/VOMITING; Start 06/14/18 at 12:15; Stop 06/15/18 at 12:14; Status DC Fentanyl Citrate (Fentanyl 2ml Vial) 50 mcg PRN Q2HR PRN IV PAIN Last administered on 06/14/18at 22:55; Start 06/14/18 at 12:15; Stop 06/15/18 at 12:14 ; Status DC Pharmacy Consult (C.diff Med Screen By Rx) 1 each 1X ONCE MC ; Start 06/14/18 at 15:45; Stop 06/14/18 at 15:46; Status UNV Influenza Virus Vaccine (Afluria Trivalent [id number] Syringe) 0.5 ml ONCE ONCE VAX IM Last administered on 06/14/18at 16:01; Start 06/14/18 at 16:00; Stop 06/14/18 at 16:01; Status DC Cetirizine HCl (ZyrTEC) 10 mg DAILY PO Last administered on 06/17/18at 08:46; Start 06/15/18 at 09:00 Fentanyl (Duragesic 50mcg/ Hr Patch) 1 patch Q3DAYS TD ; Start 06/15/18 at 09:00 ; Stop 06/15/18 at 09:00; Status DC Lactobacillus Rhamnosus (Culturelle) 1 cap BID PO Last administered on at 08:46; Start 06/14/18 at 21:00 Metoclopramide HCl (Reglan) 5 mg QIDACHS PO Last administered on 06/17/18at 11: 54; Start 06/14/18 at 16:30 Ondansetron HCl (Zofran Odt) 4 mg QIDPRN PRN PEG NAUSEA/VOMITING; Start at 16:00 Oxycodone/ Acetaminophen (Percocet 7.5/ 325) 1 tab QID PRN PO MODERATE - SEVERE PAIN Last administered on 06/17/18 08:45; Start 06/14/18 at 16:00 Pantoprazole Sodium (Protonix) 40 mg BIDAC PO Last administered on 06/17/18 07 :30; Start 06/14/18 at 16:30; Stop 06/17/18 at 09:47; Status DC Non-Formulary Medication (Atenolol/ Chlorthalidone (Atenolol-Chlorthal 50-25 Tb) ) 1 tab DAILY PEG ; Start 06/15/18 at 09:00; Stop 06/15/18 at 09:00; Status DC Cyproheptadine HCl (Periactin) 10 mg TID PO Last administered on 06/17/18 13: 23; Start 06/14/18 at 21:00 Donepezil HCl (Aricept) 5 mg BID PEG Last administered on 06/17/18at 08:44; Start 06/14/18 at 21:00 Gabapentin (Neurontin) 300 mg TID PO Last administered on 06/17/18 13:23; Start 06/14/18 at 21:00 Lidocaine (Lidoderm) 1 patch DAILY TD Last administered on 06/17/18 08:47; Start 06/15/18 at 09:00 Vancomycin HCl 1.5 gm/Sodium Chloride 500 ml @ 250 mls/hr Q12H IV ; Start 06/14 at 16:00; Status UNV Vancomycin HCl (Vanco Per Pharmacy) 1 each PRN DAILY PRN MC SEE COMMENTS Last administered on 06/16/18at 17:05; Start 06/14/18 at 16:00 Meropenem 500 mg/ Sodium Chloride 50 ml @ 100 mls/hr Q8HRS IV ; Start 06/14/18 at 22:00; Stop 06/14/18 at 22:00; Status DC Piperacillin Sod/ Tazobactam Sod 3.375 gm/Sodium Chloride 50 ml @ 100 mls/hr Q6HRS IV Last administered on 06/15/18at 04:58; Start 06/14/18 at 17:00; Stop 06/15/18 at 11:10; Status DC Piperacillin Sod/ Tazobactam Sod (Zosyn Per Pharmacy) 1 each PRN DAILY PRN MC SEE COMMENTS; Start 06/14/18 at 16:15; Status UNV Acetaminophen (Tylenol) 650 mg PRN Q6HRS PRN PO FEVER; Start 06/14/18 at 16:15 Ondansetron HCl (Zofran) 4 mg PRN Q6HRS PRN IV NAUSEA/VOMITING Last administered on 06/15/18at 14:04; Start 06/14/18 at 16:15 Morphine Sulfate (Morphine Sulfate) 2 mg PRN Q2HR PRN IV MODERATE TO SEVERE PAIN Last administered on 06/17/18at 02:34; Start 06/14/18 at 16:15 Tramadol HCl (Ultram) 50 mg PRN Q6HRS PRN PO MILD PAIN; Start 06/14/18 at 16:15 Docusate Sodium (Colace) 100 mg PRN DAILY PRN PO CONSTIPATION; Start 06/14/18 at 16:15 Albuterol/ Ipratropium (Duoneb) 3 ml RTQID NEB Last administered on 06/17/18at 11:47; Start 06/14/18 at 20:00 Albuterol Sulfate (Ventolin Neb Soln) 2.5 mg PRN Q2HR PRN NEB SHORTNESS OF BREATH; Start 06/14/18 at 16:15 Guaifenesin (Mucinex) 600 mg BID PO ; Start 06/14/18 at 21:00; Stop 06/14/18 at 21:00; Status DC Vancomycin HCl 1.25 gm/Sodium Chloride 250 ml @ 166.667 mls/hr 1X ONCE IV Last administered on 06/14/18at 18:04; Start 06/14/18 at 17:00; Stop 06/14/18 at 18:29; Status DC Fentanyl (Duragesic 50mcg/ Hr Patch) 1 patch Q3DAYS TD Last administered on 06/17/18at 08:46; Start 06/17/18 at 09:00; Stop 06/30/18 at 08:59 Vancomycin HCl 1 gm/Sodium Chloride 250 ml @ 250 mls/hr Q48H IV ; Start at 18:00; Stop 06/16/18 at 18:00; Status DC Vancomycin HCl (Vancomycin Trough Level) 1 each 1X ONCE MC ; Start 06/17/18 at 17:30; Stop 06/17/18 at 17:31 Ceftolozane/ Tazobactam 750 mg/ Sodium Chloride 50 ml @ 50 mls/hr Q8HRS IV Last administered on 06/17/18at 14:01; Start 06/15/18 at 14:00 Vancomycin HCl 0.75 gm/Sodium Chloride 250 ml @ 250 mls/hr Q24H IV Last administered on 06/16/18at 18:22; Start 06/15/18 at 18:00 Lansoprazole (Prevacid) 30 mg BIDAC FT ; Start 06/17/18 at 10:30 Active Scripts Active Atenolol-Chlorthal 50-25 Tb (Atenolol/Chlorthalidone) 1 Each Tablet 1 Tab PEG DAILY Gabapentin 300 Mg Capsule 300 Mg PO TID 30 Days Culturelle (Lactobacillus Rhamnosus Gg) 1 Each Cap.sprink 1 Cap PO BID 30 Days Reported Lidocaine 1 Each Adh..patch 1 Each TP DAILY Cetirizine Hcl 10 Mg Tablet 1 Tab PO DAILY Losartan Potassium 100 Mg Tablet 100 Mg PO DAILY Pantoprazole Sodium 40 Mg Tablet.dr 40 Mg PEG BID Donepezil Hcl 5 Mg Tablet 5 Mg PEG BID Reglan (Metoclopramide Hcl) 10 Mg Tablet 5 Mg PO QIDACHS Cyproheptadine Hcl 2 Mg/5 Ml Syrup 10 Ml PEG TID Percocet 7.5-325 Mg Tablet (Oxycodone/Acetaminophen) 1 Each Tablet 1 Tab PO QID PRN FENTANYL 50mcg/hr (Fentanyl) 1 Each Patch.td72 1 Patch TP Q3DAYS Ondansetron Odt (Ondansetron) 4 Mg Tab.rapdis 4 Mg PEG QIDPRN PRN Vitals/I & O Vital Sign - Last 24 Hours 1006/16/18 06/16/18 06/16/18 15:11 17:35 18:40 19:00 Temp 97.7 97.7 Pulse 83 Resp 18 B/P (MAP) 116/62 (80) Pulse Ox 99 98 O2 Delivery Tracheal Collar Tracheal Collar Tracheal Collar O2 Flow Rate 8.0 8.0 10.0 06/16/18 06/16/18 06/16/18 06/17/18 19:23 20:06 23:00 02:34 Temp 98.6 98.6 Pulse 86 Resp 18 B/P (MAP) 115/77 (90) Pulse Ox 98 95 95 O2 Delivery Trach Collar Tracheal Collar Tracheal Collar O2 Flow Rate 8.0 8.0 10.0 10.0 06/17/18 06/17/18 06/17/18 06/17/18 03:00 03:04 07:00 08:00 Temp 97.9 97.6 97.9 97.6 Pulse 77 81 Resp 18 B/P (MAP) 159/81 (107) 165/74 (104) Pulse Ox 100 95 100 O2 Delivery Trach Collar O2 Flow Rate 10.0 10.0 10.0 10.0 06/17/18 06/17/18 06/17/18 06/17/18 08:45 09:45 11:00 12:46 Temp 97.5 97.5 Pulse 83 Resp 16 B/P (MAP) 116/61 (79) Pulse Ox 97 O2 Delivery Tracheal Collar Tracheal Collar High Flow Nasal Cannula O2 Flow Rate 10.0 Intake and Output 06/16/18 06/16/18 06/17/18 15:00 23:00 07:00 Intake Total 984 ml 1212 ml 50 ml Balance 984 ml 1212 ml 50 ml Nutrition Consultation Dietary Evaluation: Comments: continue bolus TF via PEG TF order updated w/ flushes Expected Outcomes/Goals: to meet > 75% est nutr needs Malnutrition Findings: Body Fat Depletion (Non Severe: Mod to Severe Weight Status: Underweight RUDDY QUEZADA MD Jun 17, 2018 15:05
[2018-06-17 18:50] LABS: VANC TR 8.6 mcg/mL (10.0-20.0)
[2018-06-17 19:00] VITALS: BP 147/76
[2018-06-17] MEDS: VANCOMYCIN PER PHARMACY MC PRN ×2 (19:02→19:36)
[2018-06-17] MEDS: VANCOMYCIN 0.75 GM in IV NORMAL SALINE 250ML 250 ML IV SCH (19:14)
[2018-06-17 23:00] VITALS: BP 159/83
[2018-06-18 03:00] VITALS: BP 170/86
[2018-06-18] MEDS: TAZOBACTAM IV SCH ×3 (06:27→21:49)
[2018-06-18] MEDS: CEFTOLOZANE IV SCH ×3 (06:27→21:49)
[2018-06-18] MEDS: NORMAL SALINE IV SCH ×3 (06:27→21:49)
[2018-06-18] MEDS: VANCOMYCIN 0.75 GM in IV NORMAL SALINE 250ML 250 ML IV SCH ×2 (06:46→17:06)
[2018-06-18 07:00] VITALS: BP 183/82
[2018-06-18] MEDS: METOCLOPRAMIDE 10 MG TABLET. PO SCH ×4 (07:51→20:41)
[2018-06-18] MEDS: LACTOBACILLUS RHAMNOSUS GG 1 CAPSULE. PO SCH ×2 (07:51→20:41)
[2018-06-18] MEDS: DONEPEZIL HCL 5 MG TABLET. PEG SCH ×2 (07:51→20:41)
[2018-06-18] MEDS: LANSOPRAZOLE 30 MG TAB.RAP.DR FT SCH ×2 (07:51→17:05)
[2018-06-18] MEDS: GABAPENTIN 300 MG CAPSULE. PO SCH ×3 (07:51→20:41)
[2018-06-18] MEDS: CETIRIZINE HCL 10 MG TABLET. PO SCH (07:51)
[2018-06-18] MEDS: CYPROHEPTADINE 4 MG TABLET. PO SCH ×3 (07:57→20:41)
--- NOTE | 2018-06-18 08:40 | PDOC ---
PROGRESS NOTES Chief Complaint Chief Complaint sepsis Acute on chronic hypercapnic respiratory failure - s/p. trach History of H,CAP and multi drug resistant organism Chronic dysphagia, chronically PEG on tube feeds Severe malnutrition Anemia of chronic disease History of lung cancer and laryngeal cancer. mild dementia HTN History of Present Illness History of Present Illness broad abx cont current looks improved Vitals Vitals Vital Signs Date Time Temp Pulse Resp B/P (MAP) Pulse Ox O2 Delivery O2 Flow Rate FiO2 06/18/18 03:00 97.6 84 17 170/86 (114) 92 10.0 97.6 06/17/18 20:10 Tracheal Collar Physical Exam Physical Exam GENERAL: The patient is propped up in bed, tired and weak appearance, in no apparent distress. VITAL SIGNS: stable HEENT: Normal conjunctivae. Oral mucosa is pink and moist. In dentures. NECK: Tracheostomy. LUNGS: Rhonchi in lower lung szymanski. Nonlabored. HEART: S1 and S2. ABDOMEN: Bowel sounds active, soft, nontender. PEG tube intact. EXTREMITIES: Trace edema. No cyanosis. SKIN: Warm without rash. NEUROLOGIC: Arouses easily to name, responds appropriately to simple questions and follows commands. LINES: Peripheral IV looks okay. She has a right-sided port that is not accessed and without signs of infection. General: Alert, Cooperative, No acute distress Heart: Normal S1, No murmurs Lungs: Other (decrease bs) Abdomen: Normal bowel sounds, No tenderness Extremities: No clubbing, No cyanosis, No edema Skin: No significant lesion Labs LABS Laboratory Tests Test 06/17/18 18:15 Vancomycin Level Trough 8.6 mcg/mL (10.0-20.0) Vancomycin Last Dose Date 06/16/18 Vancomycin Last Dose Time 1800 Assessment and Plan Assessmemt and Plan Problems Medical Problems: (1) Acute on chronic renal insufficiency Status: Acute (2) Hypermagnesemia Status: Acute (3) Hypoxia Status: Acute (4) Respiratory distress Status: Acute Comment Review of Relevant I have reviewed the following items miko (where applicable) has been applied. Labs Laboratory Tests Test 06/17/18 18:15 Vancomycin Level Trough 8.6 mcg/mL (10.0-20.0) Vancomycin Last Dose Date 06/16/18 Vancomycin Last Dose Time 1800 Laboratory Tests Test 06/17/18 18:15 Vancomycin Level Trough 8.6 mcg/mL (10.0-20.0) Vancomycin Last Dose Date 06/16/18 Vancomycin Last Dose Time 1800 Microbiology 06/14/18 Blood Culture - Preliminary, Resulted NO GROWTH AFTER 3 DAYS 06/14/18 - Final, Resulted 06/14/18 - Final, Resulted 06/14/18 - Final, Resulted 06/14/18 - Final, Resulted 06/14/18 - Final, Resulted 06/14/18 Gram Stain Evaluation - Final, Resulted 06/14/18 Sputum Culture - Preliminary, Resulted 06/14/18 Sputum Result 1 - Final, Resulted 06/14/18 Sputum Result 2 - Final, Resulted Medications Current Medications Albuterol/ Ipratropium (Duoneb) 3 ml 1X ONCE NEB Last administered on at 09:34; Start 06/14/18 at 09:15; Stop 06/14/18 at 09:22; Status DC Sodium Chloride 1,000 ml @ 1,000 mls/hr 1X ONCE IV Last administered on at 09:42; Start 06/14/18 at 09:15; Stop 06/14/18 at 10:14; Status DC Bumetanide (Bumex) 0.5 mg 1X ONCE IV Last administered on 06/14/18at 13:32; Start 06/14/18 at 11:15; Stop 06/14/18 at 11:16; Status DC Dexamethasone Sodium Phosphate (Decadron) 10 mg 1X ONCE IV Last administered on 06/14/18at 13:32; Start 06/14/18 at 12:00; Stop 06/14/18 at 12:01; Status DC Ondansetron HCl (Zofran) 4 mg PRN Q8HRS PRN IV NAUSEA/VOMITING; Start 06/14/18 at 12:15; Stop 06/15/18 at 12:14; Status DC Fentanyl Citrate (Fentanyl 2ml Vial) 50 mcg PRN Q2HR PRN IV PAIN Last administered on 06/14/18at 22:55; Start 06/14/18 at 12:15; Stop 06/15/18 at 12:14 ; Status DC Pharmacy Consult (C.diff Med Screen By Rx) 1 each 1X ONCE MC ; Start 06/14/18 at 15:45; Stop 06/14/18 at 15:46; Status UNV Influenza Virus Vaccine (Afluria Trivalent [id number] Syringe) 0.5 ml ONCE ONCE VAX IM Last administered on 06/14/18at 16:01; Start 06/14/18 at 16:00; Stop 06/14/18 at 16:01; Status DC Cetirizine HCl (ZyrTEC) 10 mg DAILY PO Last administered on 06/18/18 07:51; Start 06/15/18 at 09:00 Fentanyl (Duragesic 50mcg/ Hr Patch) 1 patch Q3DAYS TD ; Start 06/15/18 at 09:00 ; Stop 06/15/18 at 09:00; Status DC Lactobacillus Rhamnosus (Culturelle) 1 cap BID PO Last administered on 07:51; Start 06/14/18 at 21:00 Metoclopramide HCl (Reglan) 5 mg QIDACHS PO Last administered on 06/18/18 07: 51; Start 06/14/18 at 16:30 Ondansetron HCl (Zofran Odt) 4 mg QIDPRN PRN PEG NAUSEA/VOMITING; Start at 16:00 Oxycodone/ Acetaminophen (Percocet 7.5/ 325) 1 tab QID PRN PO MODERATE - SEVERE PAIN Last administered on 06/17/18at 08:45; Start 06/14/18 at 16:00 Pantoprazole Sodium (Protonix) 40 mg BIDAC PO Last administered on 06/17/18at 07 :30; Start 06/14/18 at 16:30; Stop 06/17/18 at 09:47; Status DC Non-Formulary Medication (Atenolol/ Chlorthalidone (Atenolol-Chlorthal 50-25 Tb) ) 1 tab DAILY PEG ; Start 06/15/18 at 09:00; Stop 06/15/18 at 09:00; Status DC Cyproheptadine HCl (Periactin) 10 mg TID PO Last administered on 06/18/18 07: 57; Start 06/14/18 at 21:00 Donepezil HCl (Aricept) 5 mg BID PEG Last administered on 06/18/18 07:51; Start 06/14/18 at 21:00 Gabapentin (Neurontin) 300 mg TID PO Last administered on 06/18/18 07:51; Start 06/14/18 at 21:00 Lidocaine (Lidoderm) 1 patch DAILY TD Last administered on 06/17/18at 08:47; Start 06/15/18 at 09:00 Vancomycin HCl 1.5 gm/Sodium Chloride 500 ml @ 250 mls/hr Q12H IV ; Start 06/14 at 16:00; Status UNV Vancomycin HCl (Vanco Per Pharmacy) 1 each PRN DAILY PRN MC SEE COMMENTS Last administered on 06/17/18at 19:36; Start 06/14/18 at 16:00 Meropenem 500 mg/ Sodium Chloride 50 ml @ 100 mls/hr Q8HRS IV ; Start 06/14/18 at 22:00; Stop 06/14/18 at 22:00; Status DC Piperacillin Sod/ Tazobactam Sod 3.375 gm/Sodium Chloride 50 ml @ 100 mls/hr Q6HRS IV Last administered on 06/15/18at 04:58; Start 06/14/18 at 17:00; Stop 06/15/18 at 11:10; Status DC Piperacillin Sod/ Tazobactam Sod (Zosyn Per Pharmacy) 1 each PRN DAILY PRN MC SEE COMMENTS; Start 06/14/18 at 16:15; Status UNV Acetaminophen (Tylenol) 650 mg PRN Q6HRS PRN PO FEVER; Start 06/14/18 at 16:15 Ondansetron HCl (Zofran) 4 mg PRN Q6HRS PRN IV NAUSEA/VOMITING Last administered on 06/15/18at 14:04; Start 06/14/18 at 16:15 Morphine Sulfate (Morphine Sulfate) 2 mg PRN Q2HR PRN IV MODERATE TO SEVERE PAIN Last administered on 06/17/18at 02:34; Start 06/14/18 at 16:15 Tramadol HCl (Ultram) 50 mg PRN Q6HRS PRN PO MILD PAIN; Start 06/14/18 at 16:15 Docusate Sodium (Colace) 100 mg PRN DAILY PRN PO CONSTIPATION; Start 06/14/18 at 16:15 Albuterol/ Ipratropium (Duoneb) 3 ml RTQID NEB Last administered on 06/17/18at 20:09; Start 06/14/18 at 20:00 Albuterol Sulfate (Ventolin Neb Soln) 2.5 mg PRN Q2HR PRN NEB SHORTNESS OF BREATH; Start 06/14/18 at 16:15 Guaifenesin (Mucinex) 600 mg BID PO ; Start 06/14/18 at 21:00; Stop 06/14/18 at 21:00; Status DC Vancomycin HCl 1.25 gm/Sodium Chloride 250 ml @ 166.667 mls/hr 1X ONCE IV Last administered on 06/14/18at 18:04; Start 06/14/18 at 17:00; Stop 06/14/18 at 18:29; Status DC Fentanyl (Duragesic 50mcg/ Hr Patch) 1 patch Q3DAYS TD Last administered on 06/17/18at 08:46; Start 06/17/18 at 09:00; Stop 06/30/18 at 08:59 Vancomycin HCl 1 gm/Sodium Chloride 250 ml @ 250 mls/hr Q48H IV ; Start at 18:00; Stop 06/16/18 at 18:00; Status DC Vancomycin HCl (Vancomycin Trough Level) 1 each 1X ONCE MC Last administered on 06/17/18at 18:30; Start 06/17/18 at 17:30; Stop 06/17/18 at 17:31; Status DC Ceftolozane/ Tazobactam 750 mg/ Sodium Chloride 50 ml @ 50 mls/hr Q8HRS IV Last administered on 06/18/18at 06:27; Start 06/15/18 at 14:00 Vancomycin HCl 0.75 gm/Sodium Chloride 250 ml @ 250 mls/hr Q24H IV Last administered on 06/17/18at 19:14; Start 06/15/18 at 18:00; Stop 06/17/18 at 20:00 ; Status DC Lansoprazole (Prevacid) 30 mg BIDAC FT Last administered on 06/18/18at 07:51; Start 06/17/18 at 10:30 Vancomycin HCl 0.75 gm/Sodium Chloride 250 ml @ 250 mls/hr Q12H IV Last administered on 06/18/18at 06:46; Start 06/18/18 at 06:00 Vancomycin HCl (Vancomycin Trough Level) 1 each 1X ONCE MC ; Start 06/18/18 at 05:30; Stop 06/18/18 at 05:31; Status DC Vancomycin HCl (Vancomycin Trough Level) 1 each 1X ONCE MC ; Start 06/19/18 at 05:30; Stop 06/19/18 at 05:31 Active Scripts Active Atenolol-Chlorthal 50-25 Tb (Atenolol/Chlorthalidone) 1 Each Tablet 1 Tab PEG DAILY Gabapentin 300 Mg Capsule 300 Mg PO TID 30 Days Culturelle (Lactobacillus Rhamnosus Gg) 1 Each Cap.sprink 1 Cap PO BID 30 Days Reported Lidocaine 1 Each Adh..patch 1 Each TP DAILY Cetirizine Hcl 10 Mg Tablet 1 Tab PO DAILY Losartan Potassium 100 Mg Tablet 100 Mg PO DAILY Pantoprazole Sodium 40 Mg Tablet.dr 40 Mg PEG BID Donepezil Hcl 5 Mg Tablet 5 Mg PEG BID Reglan (Metoclopramide Hcl) 10 Mg Tablet 5 Mg PO QIDACHS Cyproheptadine Hcl 2 Mg/5 Ml Syrup 10 Ml PEG TID Percocet 7.5-325 Mg Tablet (Oxycodone/Acetaminophen) 1 Each Tablet 1 Tab PO QID PRN FENTANYL 50mcg/hr (Fentanyl) 1 Each Patch.td72 1 Patch TP Q3DAYS Ondansetron Odt (Ondansetron) 4 Mg Tab.rapdis 4 Mg PEG QIDPRN PRN Vitals/I & O Vital Sign - Last 24 Hours 06/17/18 06/17/18 06/17/18 06/17/18 08:45 09:45 11:00 12:46 Temp 97.5 97.5 Pulse 83 Resp 16 B/P (MAP) 116/61 (79) Pulse Ox 97 O2 Delivery Tracheal Collar Tracheal Collar High Flow Nasal Cannula O2 Flow Rate 10.0 06/17/18 06/17/18 06/17/18 06/17/18 15:00 15:37 19:00 20:04 Temp 97.5 98.1 97.5 98.1 Pulse 93 82 Resp 17 17 B/P (MAP) 158/76 (103) 147/76 (99) Pulse Ox 98 97 O2 Delivery Tracheal Collar Trach Collar O2 Flow Rate 10.0 8.0 10.0 8.0 06/17/18 06/17/18 06/18/18 20:10 23:00 03:00 Temp 98.1 97.6 98.1 97.6 Pulse 91 84 Resp 17 17 B/P (MAP) 159/83 (108) 170/86 (114) Pulse Ox 97 93 92 O2 Delivery Tracheal Collar O2 Flow Rate 8.0 10.0 10.0 Intake and Output 06/17/18 06/17/18 06/18/18 15:00 23:00 07:00 Intake Total 525 ml 600 ml Balance 525 ml 600 ml Nutrition Consultation Dietary Evaluation: Comments: continue bolus TF via PEG TF order updated w/ flushes Expected Outcomes/Goals: to meet > 75% est nutr needs Malnutrition Findings: Body Fat Depletion (Non Severe: Mod to Severe Weight Status: Underweight RUDDY QUEZADA MD Jun 18, 2018 08:40
[2018-06-18] MEDS: LIDOCAINE (700MG/PATCH) PATCH. TD SCH (09:00)
[2018-06-18] MEDS: IPRATRPIUM/ALBUTEROL 0.5/2.5MG 3 ML NEBU. NEB SCH ×4 (09:06→19:25)
--- NOTE | 2018-06-18 10:03 | PDOC ---
Infectious Disease Note Subjective Subjective pt is feeling better ROS ROS no n/v/d/sob Vital Sign Vital Signs Vital Signs Date Time Temp Pulse Resp B/P (MAP) Pulse Ox O2 Delivery O2 Flow Rate FiO2 06/18/18 09:07 Tracheal Collar 8.0 06/18/18 07:00 97.7 100 16 183/82 (115) 100 97.7 Physical Exam PHYSICAL EXAM GENERAL: The patient is propped up in bed, tired and weak appearance, in no apparent distress. VITAL SIGNS: stable HEENT: Normal conjunctivae. Oral mucosa is pink and moist. In dentures. NECK: Tracheostomy. LUNGS: Rhonchi in lower lung szymanski. Nonlabored. HEART: S1 and S2. ABDOMEN: Bowel sounds active, soft, nontender. PEG tube intact. EXTREMITIES: Trace edema. No cyanosis. SKIN: Warm without rash. NEUROLOGIC: Arouses easily to name, responds appropriately to simple questions and follows commands. LINES: Peripheral IV looks okay. She has a right-sided port that is not accessed and without signs of infection. Labs Lab Laboratory Tests Test 06/17/18 18:15 Vancomycin Level Trough 8.6 mcg/mL (10.0-20.0) Vancomycin Last Dose Date 06/16/18 Vancomycin Last Dose Time 1800 Micro Result GRAM STAIN WHITE BLOOD CELLS Final Few GRAM STAIN EPITHELIAL CELLS Final Few GRAM STAIN RESULT 1 Final Comment Few gram negative rods. GRAM STAIN RESULT 2 Final Comment Few gram positive cocci GRAM STAIN RESULT 3 Final Comment Few gram positive rods. GRAM STAIN EVALUATION Final Comment This specimen is of good quality and is acceptable for routine bacterial culture. Performed at: [address], [place], [place] [id number] [employer] Machine Operator: YANG Lawrence MD, Phone: [phone] SPUTUM CULTURE-LC Preliminary Preliminary report SPUTUM CULT RES 1 Final Comment CONTINUED ON NEXT PAGE RUN DATE: 06/17/18 PAGE 2 RUN TIME: 1324 [facility] [address] [facility] [place] [address] Jorge Tierney M.D., [employer] SPEC: [id number] PATIENT: BERNARDO DE LEON [id number] ( Continued) Procedure Result SPUTUM CULT RES 1 Final (continued) Pseudomonas aeruginosa 4+ SPUTUM CULT RES 2 Final Comment Routine respiratory jewell 1+ Performed at: DA - [facility] [address], [place], [place] [id number] [employer]ing Machine Operator: YANG Lawrence MD, Phone: [phone] Objective Assessment 1. Healthcare-associated pneumonia with history of carbapenem-resistant Enterobacteriaceae Pseudomonas in the past. 2. Leukocytosis, which has improved. 3. Acute on chronic respiratory failure. 4. Acute kidney injury. 5. Dysphagia, on tube feedings. 6. History of lung cancer. 7. History of Clostridium difficile in 2017. 8. History of methicillin-resistant Staphylococcus aureus. Plan Plan of Care Continue vanc and Zerbexa for h/o MDRO Contact isolation Influenza screen f/u cultures Monitor renal function closely ASTER MATOS MD Jun 18, 2018 10:03
[2018-06-18 11:00] VITALS: BP 138/73
--- NOTE | 2018-06-18 11:22 | PDOC ---
PULMONARY PROGRESS NOTES Subjective no soa Vitals Vital Signs Date Time Temp Pulse Resp B/P (MAP) Pulse Ox O2 Delivery O2 Flow Rate FiO2 06/18/18 10:00 Trach Collar 8.0 06/18/18 07:00 97.7 100 16 183/82 (115) 100 97.7 General: Alert, No acute distress Lungs: Other (decrease bs) Cardiovascular: S1, S2 Abdomen: Soft, Non-tender Neuro Exam: Alert Extremities: No Edema Skin: Warm Labs Laboratory Tests Test 06/17/18 18:15 Vancomycin Level Trough 8.6 mcg/mL (10.0-20.0) Vancomycin Last Dose Date 06/16/18 Vancomycin Last Dose Time 1800 Laboratory Tests Test 06/17/18 18:15 Vancomycin Level Trough 8.6 mcg/mL (10.0-20.0) Vancomycin Last Dose Date 06/16/18 Vancomycin Last Dose Time 1800 Medications Active Scripts Medications Dose Route/Sig Max Daily Dose Days Date Category Atenolol-Chlorthal 50-25 Tb (Atenolol/Chlorthalidone) 1 Each Tablet 1 Tab PEG DAILY 06/15/18 Rx Lidocaine 1 Each Adh..patch 1 Each TP DAILY 06/14/18 Reported Cetirizine Hcl 10 Mg Tablet 1 Tab PO DAILY 06/14/18 Reported Losartan Potassium 100 Mg Tablet 100 Mg PO DAILY 06/14/18 Reported Gabapentin 300 Mg Capsule 300 Mg PO TID 30 02/18/18 Rx Culturelle (Lactobacillus Rhamnosus Gg) 1 Each Cap.sprink 1 Cap PO BID 30 07/07/17 Rx Pantoprazole Sodium 40 Mg Tablet.dr 40 Mg PEG BID 03/11/17 Reported Donepezil Hcl 5 Mg Tablet 5 Mg PEG BID 03/11/17 Reported Reglan (Metoclopramide Hcl) 10 Mg Tablet 5 Mg PO QIDACHS 03/11/17 Reported Cyproheptadine Hcl 2 Mg/5 Ml Syrup 10 Ml PEG TID 03/11/17 Reported Percocet 7.5-325 Mg Tablet (Oxycodone/Acetaminophen) 1 Each Tablet 1 Tab PO QID PRN 03/11/17 Reported FENTANYL 50mcg/hr (Fentanyl) 1 Each Patch.td72 1 Patch TP Q3DAYS 06/19/14 Reported Ondansetron Odt (Ondansetron) 4 Mg Tab.rapdis 4 Mg PEG QIDPRN PRN 06/19/[address] CHEST 1. Emphysema with pleural/parenchymal scarring. 2. Worsening right lower lobe infiltrate compatible with pneumonia with underlying bronchiectasis. 3. Chronic atelectasis/consolidation posterior medially in the left lower lobe, similar to that seen on 02/17/2018 4. Borderline mediastinal adenopathy with probable slight worsening in the subcarinal region. 5. Cardiomegaly with calcific plaquing of the aorta and coronary arteries. Impression . 1. Acute on chronic hypoxic respiratory failure secondary to most likely Gram-negative and Gram-positive pneumonia. h/o MDR PSA 2. Abnormal chest x-ray with bilateral patchy infiltrates, more favoring pneumonia than congestive heart failure. 3. History of laryngeal cancer and lung cancer. Status post tracheostomy with multiple admissions for recurrent pneumonias. History of multidrug resistant Pseudomonas aeruginosa pneumonia in the past. 4. History of azotemia. 5. Severe protein-calorie malnutrition. 6. CT CHEST WITH Chronic atelectasis/ Persistent mass like consolidation posterior medially in the left lower lobe, similar to that seen on 02/17/2018, also in December. suspect known cancer .Borderline mediastinal adenopathy with probable slight worsening in the subcarinal region. reactive vs related to malignancy. Poor candidate for further treatment Plan . 1. Continue with present antibiotics. 2. Continue with trach collar. Keep saturation 92% and above. 3. trach secretions with gram + rods 4. F/U CT chest IN 3-4 months to f/u on worsening adenopathy 5. Abx per ID,. patient has pneumonias with multidrug resistant PSA 6. Discussed with RN. We will follow along with you. MARY LANIER MD Jun 18, 2018 11:22
[2018-06-18] MEDS: VANCOMYCIN PER PHARMACY MC PRN (12:16)
[2018-06-18 15:00] VITALS: BP 131/65
[2018-06-18 19:00] VITALS: BP 123/76
[2018-06-18 23:03] VITALS: BP 145/80
[2018-06-19 03:02] VITALS: BP 165/95
[2018-06-19] MEDS: NORMAL SALINE IV SCH (05:20)
[2018-06-19] MEDS: CEFTOLOZANE IV SCH (05:20)
[2018-06-19] MEDS: TAZOBACTAM IV SCH (05:20)
[2018-06-19 05:41] LABS: CALCIUM 9.3 mg/dL (8.5-10.1); CREATININE 0.7 mg/dL (0.6-1.0); GFR 98.2; POTASSIUM 3.9 mmol/L (3.5-5.1)
[2018-06-19 05:49] LABS: VANC TR 17.4 mcg/mL (10.0-20.0)
[2018-06-19] MEDS: VANCOMYCIN 0.75 GM in IV NORMAL SALINE 250ML 250 ML IV SCH (06:00)
[2018-06-19] MEDS: VANCOMYCIN PER PHARMACY MC PRN (06:17)
[2018-06-19 07:00] VITALS: BP 176/104
--- NOTE | 2018-06-19 07:48 | PDOC ---
PULMONARY PROGRESS NOTES Subjective trach on tm, sob better, no cough, no pain Vitals Vital Signs Date Time Temp Pulse Resp B/P (MAP) Pulse Ox O2 Delivery O2 Flow Rate FiO2 06/19/18 03:02 98.0 96 20 165/95 (118) 98 Tracheal Collar 98.0 06/18/18 19:35 8.0 General: Alert, No acute distress HEENT: Other (trach site ok) Lungs: Crackles, Other (decrease bs) Cardiovascular: S1, S2 Abdomen: Soft, Non-tender Neuro Exam: Alert Extremities: No Edema Skin: Warm Labs Laboratory Tests Test 06/17/18 18:15 06/19/18 04:45 Vancomycin Level Trough 8.6 mcg/mL (10.0-20.0) 17.4 mcg/mL (10.0-20.0) Vancomycin Last Dose Date 06/16/18 06/18/18 Vancomycin Last Dose Time 1800 1830 Sodium Level 140 mmol/L (136-145) Potassium Level 3.9 mmol/L (3.5-5.1) Chloride Level 101 mmol/L (98-107) Carbon Dioxide Level 33 mmol/L (21-32) Anion Gap 6 (6-14) Blood Urea Nitrogen 13 mg/dL (7-20) Creatinine 0.7 mg/dL (0.6-1.0) Estimated GFR (Cockcroft-Gault) 98.2 Glucose Level 84 mg/dL (70-99) Calcium Level 9.3 mg/dL (8.5-10.1) Laboratory Tests Test 06/19/18 04:45 Sodium Level 140 mmol/L (136-145) Potassium Level 3.9 mmol/L (3.5-5.1) Chloride Level 101 mmol/L (98-107) Carbon Dioxide Level 33 mmol/L (21-32) Anion Gap 6 (6-14) Blood Urea Nitrogen 13 mg/dL (7-20) Creatinine 0.7 mg/dL (0.6-1.0) Estimated GFR (Cockcroft-Gault) 98.2 Glucose Level 84 mg/dL (70-99) Calcium Level 9.3 mg/dL (8.5-10.1) Vancomycin Level Trough 17.4 mcg/mL (10.0-20.0) Vancomycin Last Dose Date 06/18/18 Vancomycin Last Dose Time 1830 Medications Active Scripts Medications Dose Route/Sig Max Daily Dose Days Date Category Atenolol-Chlorthal 50-25 Tb (Atenolol/Chlorthalidone) 1 Each Tablet 1 Tab PEG DAILY 06/15/18 Rx Lidocaine 1 Each Adh..patch 1 Each TP DAILY 06/14/18 Reported Cetirizine Hcl 10 Mg Tablet 1 Tab PO DAILY 06/14/18 Reported Losartan Potassium 100 Mg Tablet 100 Mg PO DAILY 06/14/18 Reported Gabapentin 300 Mg Capsule 300 Mg PO TID 30 02/18/18 Rx Culturelle (Lactobacillus Rhamnosus Gg) 1 Each Cap.sprink 1 Cap PO BID 30 07/07/17 Rx Pantoprazole Sodium 40 Mg Tablet.dr 40 Mg PEG BID 03/11/17 Reported Donepezil Hcl 5 Mg Tablet 5 Mg PEG BID 03/11/17 Reported Reglan (Metoclopramide Hcl) 10 Mg Tablet 5 Mg PO QIDACHS 03/11/17 Reported Cyproheptadine Hcl 2 Mg/5 Ml Syrup 10 Ml PEG TID 03/11/17 Reported Percocet 7.5-325 Mg Tablet (Oxycodone/Acetaminophen) 1 Each Tablet 1 Tab PO QID PRN 03/11/17 Reported FENTANYL 50mcg/hr (Fentanyl) 1 Each Patch.td72 1 Patch TP Q3DAYS 06/19/14 Reported Ondansetron Odt (Ondansetron) 4 Mg Tab.rapdis 4 Mg PEG QIDPRN PRN 06/19/[address] CHEST 1. Emphysema with pleural/parenchymal scarring. 2. Worsening right lower lobe infiltrate compatible with pneumonia with underlying bronchiectasis. 3. Chronic atelectasis/consolidation posterior medially in the left lower lobe, similar to that seen on 02/17/2018 4. Borderline mediastinal adenopathy with probable slight worsening in the subcarinal region. 5. Cardiomegaly with calcific plaquing of the aorta and coronary arteries. Impression . 1. Acute on chronic hypoxic respiratory failure secondary to most likely Gram-negative and Gram-positive pneumonia. h/o MDR PSA 2. Abnormal chest x-ray with bilateral patchy infiltrates, more favoring pneumonia than congestive heart failure. 3. History of laryngeal cancer and lung cancer. Status post tracheostomy with multiple admissions for recurrent pneumonias. History of multidrug resistant Pseudomonas aeruginosa pneumonia in the past. 4. History of azotemia. 5. Severe protein-calorie malnutrition. 6. CT CHEST WITH Chronic atelectasis/ Persistent mass like consolidation posterior medially in the left lower lobe, similar to that seen on 02/17/2018, also in December. suspect known cancer .Borderline mediastinal adenopathy with probable slight worsening in the subcarinal region. reactive vs related to malignancy. Poor candidate for further treatment Plan . 1. 02 titration 2. Continue with trach mask. Keep saturation 92% and above. 3. sputum, Carbapenem-resistant Pseudomonas aeruginosa, 4+, Multi-Drug Resistant Organism 4. F/U CT chest IN 3-4 months to f/u on worsening adenopathy 5. Abx per ID,. 6. bronchodilator Discussed with RN, pt. We will follow along with you. SUZANNE STEINER MD Jun 19, 2018 07:48
[2018-06-19] MEDS: IPRATRPIUM/ALBUTEROL 0.5/2.5MG 3 ML NEBU. NEB SCH (08:09)
[2018-06-19] MEDS: DONEPEZIL HCL 5 MG TABLET. PEG SCH (08:20)
[2018-06-19] MEDS: CYPROHEPTADINE 4 MG TABLET. PO SCH (08:20)
[2018-06-19] MEDS: LANSOPRAZOLE 30 MG TAB.RAP.DR FT SCH (08:20)
[2018-06-19] MEDS: GABAPENTIN 300 MG CAPSULE. PO SCH (08:20)
[2018-06-19] MEDS: LACTOBACILLUS RHAMNOSUS GG 1 CAPSULE. PO SCH (08:20)
[2018-06-19] MEDS: METOCLOPRAMIDE 10 MG TABLET. PO SCH (08:21)
[2018-06-19] MEDS: CETIRIZINE HCL 10 MG TABLET. PO SCH (08:21)
[2018-06-19] MEDS: oxyCODONE/APAP 7.5/325 1 TAB TABLET PO PRN (08:23)
[2018-06-19] MEDS: LIDOCAINE (700MG/PATCH) PATCH. TD SCH (08:31)
--- NOTE | 2018-06-19 08:52 | PDOC ---
PROGRESS NOTES Chief Complaint Chief Complaint sepsis Acute on chronic hypercapnic respiratory failure - s/p. trach History of H,CAP and multi drug resistant organism Chronic dysphagia, chronically PEG on tube feeds Severe malnutrition Anemia of chronic disease History of lung cancer and laryngeal cancer. mild dementia HTN History of Present Illness History of Present Illness Vanc trough 17 broad abx cont current looks improved Vitals Vitals Vital Signs Date Time Temp Pulse Resp B/P (MAP) Pulse Ox O2 Delivery O2 Flow Rate FiO2 06/19/18 08:10 100 Tracheal Collar 8.0 06/19/18 03:02 98.0 96 20 165/95 (118) 98.0 Physical Exam Physical Exam GENERAL: The patient is propped up in bed, tired and weak appearance, in no apparent distress. VITAL SIGNS: stable HEENT: Normal conjunctivae. Oral mucosa is pink and moist. In dentures. NECK: Tracheostomy. LUNGS: Rhonchi in lower lung szymanski. Nonlabored. HEART: S1 and S2. ABDOMEN: Bowel sounds active, soft, nontender. PEG tube intact. EXTREMITIES: Trace edema. No cyanosis. SKIN: Warm without rash. NEUROLOGIC: Arouses easily to name, responds appropriately to simple questions and follows commands. LINES: Peripheral IV looks okay. She has a right-sided port that is not accessed and without signs of infection. General: Alert, Cooperative, No acute distress Heart: Normal S1, No murmurs Lungs: Other (decrease bs) Abdomen: Normal bowel sounds, No tenderness Extremities: No clubbing, No cyanosis, No edema Skin: No significant lesion Labs LABS Laboratory Tests Test 06/19/18 04:45 Sodium Level 140 mmol/L (136-145) Potassium Level 3.9 mmol/L (3.5-5.1) Chloride Level 101 mmol/L (98-107) Carbon Dioxide Level 33 mmol/L (21-32) Anion Gap 6 (6-14) Blood Urea Nitrogen 13 mg/dL (7-20) Creatinine 0.7 mg/dL (0.6-1.0) Estimated GFR (Cockcroft-Gault) 98.2 Glucose Level 84 mg/dL (70-99) Calcium Level 9.3 mg/dL (8.5-10.1) Vancomycin Level Trough 17.4 mcg/mL (10.0-20.0) Vancomycin Last Dose Date 06/18/18 Vancomycin Last Dose Time 1830 Assessment and Plan Assessmemt and Plan Problems Medical Problems: (1) Acute on chronic renal insufficiency Status: Acute (2) Hypermagnesemia Status: Acute (3) Hypoxia Status: Acute (4) Respiratory distress Status: Acute Comment Review of Relevant I have reviewed the following items miko (where applicable) has been applied. Labs Laboratory Tests Test 06/17/18 18:15 06/19/18 04:45 Vancomycin Level Trough 8.6 mcg/mL (10.0-20.0) 17.4 mcg/mL (10.0-20.0) Vancomycin Last Dose Date 06/16/18 06/18/18 Vancomycin Last Dose Time 1800 1830 Sodium Level 140 mmol/L (136-145) Potassium Level 3.9 mmol/L (3.5-5.1) Chloride Level 101 mmol/L (98-107) Carbon Dioxide Level 33 mmol/L (21-32) Anion Gap 6 (6-14) Blood Urea Nitrogen 13 mg/dL (7-20) Creatinine 0.7 mg/dL (0.6-1.0) Estimated GFR (Cockcroft-Gault) 98.2 Glucose Level 84 mg/dL (70-99) Calcium Level 9.3 mg/dL (8.5-10.1) Laboratory Tests Test 06/19/18 04:45 Sodium Level 140 mmol/L (136-145) Potassium Level 3.9 mmol/L (3.5-5.1) Chloride Level 101 mmol/L (98-107) Carbon Dioxide Level 33 mmol/L (21-32) Anion Gap 6 (6-14) Blood Urea Nitrogen 13 mg/dL (7-20) Creatinine 0.7 mg/dL (0.6-1.0) Estimated GFR (Cockcroft-Gault) 98.2 Glucose Level 84 mg/dL (70-99) Calcium Level 9.3 mg/dL (8.5-10.1) Vancomycin Level Trough 17.4 mcg/mL (10.0-20.0) Vancomycin Last Dose Date 06/18/18 Vancomycin Last Dose Time 1830 Microbiology 06/14/18 Blood Culture - Preliminary, Resulted NO GROWTH AFTER 4 DAYS 06/14/18 - Final, Complete 06/14/18 - Final, Complete 06/14/18 - Final, Complete 06/14/18 - Final, Complete 06/14/18 - Final, Complete 06/14/18 Gram Stain Evaluation - Final, Complete 06/14/18 Sputum Culture - Final, Complete 06/14/18 Sputum Result 1 - Final, Complete 06/14/18 Sputum Result 2 - Final, Complete 06/14/18 Antimicrobic Susceptibility - Final, Complete Medications Current Medications Albuterol/ Ipratropium (Duoneb) 3 ml 1X ONCE NEB Last administered on at 09:34; Start 06/14/18 at 09:15; Stop 06/14/18 at 09:22; Status DC Sodium Chloride 1,000 ml @ 1,000 mls/hr 1X ONCE IV Last administered on at 09:42; Start 06/14/18 at 09:15; Stop 06/14/18 at 10:14; Status DC Bumetanide (Bumex) 0.5 mg 1X ONCE IV Last administered on 06/14/18at 13:32; Start 06/14/18 at 11:15; Stop 06/14/18 at 11:16; Status DC Dexamethasone Sodium Phosphate (Decadron) 10 mg 1X ONCE IV Last administered on 06/14/18at 13:32; Start 06/14/18 at 12:00; Stop 06/14/18 at 12:01; Status DC Ondansetron HCl (Zofran) 4 mg PRN Q8HRS PRN IV NAUSEA/VOMITING; Start 06/14/18 at 12:15; Stop 06/15/18 at 12:14; Status DC Fentanyl Citrate (Fentanyl 2ml Vial) 50 mcg PRN Q2HR PRN IV PAIN Last administered on 06/14/18at 22:55; Start 06/14/18 at 12:15; Stop 06/15/18 at 12:14 ; Status DC Pharmacy Consult (C.diff Med Screen By Rx) 1 each 1X ONCE MC ; Start 06/14/18 at 15:45; Stop 06/14/18 at 15:46; Status UNV Influenza Virus Vaccine (Afluria Trivalent [id number] Syringe) 0.5 ml ONCE ONCE VAX IM Last administered on 06/14/18at 16:01; Start 06/14/18 at 16:00; Stop 06/14/18 at 16:01; Status DC Cetirizine HCl (ZyrTEC) 10 mg DAILY PO Last administered on 06/19/18 08:21; Start 06/15/18 at 09:00 Fentanyl (Duragesic 50mcg/ Hr Patch) 1 patch Q3DAYS TD ; Start 06/15/18 at 09:00 ; Stop 06/15/18 at 09:00; Status DC Lactobacillus Rhamnosus (Culturelle) 1 cap BID PO Last administered on at 08:20; Start 06/14/18 at 21:00 Metoclopramide HCl (Reglan) 5 mg QIDACHS PO Last administered on 06/19/18 08: 21; Start 06/14/18 at 16:30 Ondansetron HCl (Zofran Odt) 4 mg QIDPRN PRN PEG NAUSEA/VOMITING; Start at 16:00 Oxycodone/ Acetaminophen (Percocet 7.5/ 325) 1 tab QID PRN PO MODERATE - SEVERE PAIN Last administered on 06/19/18at 08:23; Start 06/14/18 at 16:00 Pantoprazole Sodium (Protonix) 40 mg BIDAC PO Last administered on 06/17/18at 07 :30; Start 06/14/18 at 16:30; Stop 06/17/18 at 09:47; Status DC Non-Formulary Medication (Atenolol/ Chlorthalidone (Atenolol-Chlorthal 50-25 Tb) ) 1 tab DAILY PEG ; Start 06/15/18 at 09:00; Stop 06/15/18 at 09:00; Status DC Cyproheptadine HCl (Periactin) 10 mg TID PO Last administered on 06/19/18 08: 20; Start 06/14/18 at 21:00 Donepezil HCl (Aricept) 5 mg BID PEG Last administered on 06/19/18 08:20; Start 06/14/18 at 21:00 Gabapentin (Neurontin) 300 mg TID PO Last administered on 06/19/18 08:20; Start 06/14/18 at 21:00 Lidocaine (Lidoderm) 1 patch DAILY TD Last administered on 06/19/18at 08:31; Start 06/15/18 at 09:00 Vancomycin HCl 1.5 gm/Sodium Chloride 500 ml @ 250 mls/hr Q12H IV ; Start 06/14 at 16:00; Status UNV Vancomycin HCl (Vanco Per Pharmacy) 1 each PRN DAILY PRN MC SEE COMMENTS Last administered on 06/19/18at 06:17; Start 06/14/18 at 16:00 Meropenem 500 mg/ Sodium Chloride 50 ml @ 100 mls/hr Q8HRS IV ; Start 06/14/18 at 22:00; Stop 06/14/18 at 22:00; Status DC Piperacillin Sod/ Tazobactam Sod 3.375 gm/Sodium Chloride 50 ml @ 100 mls/hr Q6HRS IV Last administered on 06/15/18at 04:58; Start 06/14/18 at 17:00; Stop 06/15/18 at 11:10; Status DC Piperacillin Sod/ Tazobactam Sod (Zosyn Per Pharmacy) 1 each PRN DAILY PRN MC SEE COMMENTS; Start 06/14/18 at 16:15; Status UNV Acetaminophen (Tylenol) 650 mg PRN Q6HRS PRN PO FEVER; Start 06/14/18 at 16:15 Ondansetron HCl (Zofran) 4 mg PRN Q6HRS PRN IV NAUSEA/VOMITING Last administered on 06/15/18at 14:04; Start 06/14/18 at 16:15 Morphine Sulfate (Morphine Sulfate) 2 mg PRN Q2HR PRN IV MODERATE TO SEVERE PAIN Last administered on 06/17/18at 02:34; Start 06/14/18 at 16:15 Tramadol HCl (Ultram) 50 mg PRN Q6HRS PRN PO MILD PAIN; Start 06/14/18 at 16:15 Docusate Sodium (Colace) 100 mg PRN DAILY PRN PO CONSTIPATION; Start 06/14/18 at 16:15 Albuterol/ Ipratropium (Duoneb) 3 ml RTQID NEB Last administered on 06/19/18at 08:09; Start 06/14/18 at 20:00 Albuterol Sulfate (Ventolin Neb Soln) 2.5 mg PRN Q2HR PRN NEB SHORTNESS OF BREATH; Start 06/14/18 at 16:15 Guaifenesin (Mucinex) 600 mg BID PO ; Start 06/14/18 at 21:00; Stop 06/14/18 at 21:00; Status DC Vancomycin HCl 1.25 gm/Sodium Chloride 250 ml @ 166.667 mls/hr 1X ONCE IV Last administered on 06/14/18at 18:04; Start 06/14/18 at 17:00; Stop 06/14/18 at 18:29; Status DC Fentanyl (Duragesic 50mcg/ Hr Patch) 1 patch Q3DAYS TD Last administered on 06/17/18at 08:46; Start 06/17/18 at 09:00; Stop 06/30/18 at 08:59 Vancomycin HCl 1 gm/Sodium Chloride 250 ml @ 250 mls/hr Q48H IV ; Start at 18:00; Stop 06/16/18 at 18:00; Status DC Vancomycin HCl (Vancomycin Trough Level) 1 each 1X ONCE MC Last administered on 06/17/18at 18:30; Start 06/17/18 at 17:30; Stop 06/17/18 at 17:31; Status DC Ceftolozane/ Tazobactam 750 mg/ Sodium Chloride 50 ml @ 50 mls/hr Q8HRS IV Last administered on 06/19/18at 05:20; Start 06/15/18 at 14:00 Vancomycin HCl 0.75 gm/Sodium Chloride 250 ml @ 250 mls/hr Q24H IV Last administered on 06/17/18at 19:14; Start 06/15/18 at 18:00; Stop 06/17/18 at 20:00 ; Status DC Lansoprazole (Prevacid) 30 mg BIDAC FT Last administered on 06/19/18at 08:20; Start 06/17/18 at 10:30 Vancomycin HCl 0.75 gm/Sodium Chloride 250 ml @ 250 mls/hr Q12H IV Last administered on 06/19/18at 06:00; Start 06/18/18 at 06:00 Vancomycin HCl (Vancomycin Trough Level) 1 each 1X ONCE MC ; Start 06/18/18 at 05:30; Stop 06/18/18 at 05:31; Status DC Vancomycin HCl (Vancomycin Trough Level) 1 each 1X ONCE MC Last administered on 06/19/18at 05:30; Start 06/19/18 at 05:30; Stop 06/19/18 at 05:31; Status DC Active Scripts Active Atenolol-Chlorthal 50-25 Tb (Atenolol/Chlorthalidone) 1 Each Tablet 1 Tab PEG DAILY Gabapentin 300 Mg Capsule 300 Mg PO TID 30 Days Culturelle (Lactobacillus Rhamnosus Gg) 1 Each Cap.sprink 1 Cap PO BID 30 Days Reported Lidocaine 1 Each Adh..patch 1 Each TP DAILY Cetirizine Hcl 10 Mg Tablet 1 Tab PO DAILY Losartan Potassium 100 Mg Tablet 100 Mg PO DAILY Pantoprazole Sodium 40 Mg Tablet.dr 40 Mg PEG BID Donepezil Hcl 5 Mg Tablet 5 Mg PEG BID Reglan (Metoclopramide Hcl) 10 Mg Tablet 5 Mg PO QIDACHS Cyproheptadine Hcl 2 Mg/5 Ml Syrup 10 Ml PEG TID Percocet 7.5-325 Mg Tablet (Oxycodone/Acetaminophen) 1 Each Tablet 1 Tab PO QID PRN FENTANYL 50mcg/hr (Fentanyl) 1 Each Patch.td72 1 Patch TP Q3DAYS Ondansetron Odt (Ondansetron) 4 Mg Tab.rapdis 4 Mg PEG QIDPRN PRN Vitals/I & O Vital Sign - Last 24 Hours 06/18/18 06/18/18 06/18/18 06/18/18 09:07 10:00 11:00 12:24 Temp 97.7 97.7 Pulse 88 Resp 16 B/P (MAP) 138/73 (94) Pulse Ox 98 95 O2 Delivery Tracheal Collar Trach Collar Tracheal Collar Tracheal Collar O2 Flow Rate 8.0 8.0 10.0 8.0 06/18/18 06/18/18 06/18/18 06/18/18 15:00 16:30 19:00 19:25 Temp 98.1 98.6 98.1 98.6 Pulse 97 95 Resp 16 20 B/P (MAP) 131/65 (87) 123/76 (92) Pulse Ox 94 100 O2 Delivery Tracheal Collar Tracheal Collar Tracheal Collar Tracheal Collar O2 Flow Rate 10.0 8.0 8.0 06/18/18 06/18/18 06/19/18 06/19/18 19:35 23:03 03:02 08:10 Temp 98.5 98.0 98.5 98.0 Pulse 92 96 Resp 20 20 B/P (MAP) 145/80 (101) 165/95 (118) Pulse Ox 91 98 100 O2 Delivery Trach Collar Tracheal Collar Tracheal Collar Tracheal Collar O2 Flow Rate 8.0 8.0 Intake and Output 10/01/2906/18/18 06/19/18 15:00 23:00 07:00 Intake Total 1636 ml 2034 ml 300 ml Output Total 0 ml Balance 1636 ml 2034 ml 300 ml Nutrition Consultation Dietary Evaluation: Comments: continue bolus TF via PEG TF order updated w/ flushes Expected Outcomes/Goals: to meet > 75% est nutr needs Malnutrition Findings: Body Fat Depletion (Non Severe: Mod to Severe Weight Status: Underweight ARINA GALLEGOS MD Jun 19, 2018 08:52
[2018-06-19] MEDS ORDERED: oxyCODONE/APAP 7.5/325 1 TAB TABLET PO PRN (09:00)
[2018-06-19 09:32] VITALS: BP 155/79
[2018-06-19] MEDS ORDERED: CEFT1.5V IV (09:49)
--- NOTE | 2018-06-19 09:53 | DISCH ---
DISCHARGE WITH HOME HEALTH DISCHARGE INFORMATION: Discharge Date: Jun 19, 2018 Final Diagnosis: Problems Medical Problems: (1) Acute on chronic renal insufficiency Status: Acute (2) Hypermagnesemia Status: Acute (3) Hypoxia Status: Acute (4) Respiratory distress Status: Acute Condition on Discharge: Stable CODE STATUS: Code Status: Full HOME HEALTH: Face to Face: I certify this patient is under my care and that I, or a nurse practitioner or physician's assistant director of nursing working with me, had a face to face encounter that meets the physician face to face encounter requirements with this patient on 06/19/18. Medical Complications: COPD, Pneumonia, Other (MDRO pneumonia on trach collar) Nursing Home For: Enteral Feeding Care, IV Infusion Therapy, Medication Management Home Health Aide For: Self-care REPAIRER HANDTOOLS For: Community Resources Pt Meets Homebound Status: Poor coordination w/ amb., Poor cognition POST DISCHARGE ORDERS: Activity Instructions for Disc: Activity as tolerated Weight Bearing Status after Di: As tolerated DIET AFTER DISCHARGE: Cardiac Wound/Incision Care: No wound care needed CHECKS AFTER DISCHARGE: Checks after discharge: Check blood press - daily, Check blood sugar, ac/hs FOLLOW-UP: Follow up with: Infectious Disease - Dr. Workman Follow Up With: Pulmonology - Dr. Diana SANDY TO [facility] LABS: BMP 06/22/18, Q 8 hours 750mg Zerbexa for MDRO PNA TREATMENT/EQUIPMENT ORDERS: Adaptive Equipment Issued: None Infusion Equipment, home use: Feeding Tube, PortaCath Discharge Respiratory Equipmen: Oxygen, Nebulizer CERTIFICATION STATEMENT: Certification Statement: Certification Statement: Based on the above finding, I certify that this patient is confined to the home and needs intermittent fci care, physical therapy and/or speech therapy, or continues to need occupational therapy.~ This patient is under my care, and I have initiated the establishment of the plan of care.~ This patient will be followed by myself or a community physician who will periodically review the plan of care. Home Meds Active Scripts Ceftolozane/Tazobactam (Zerbaxa 1-0.5 Gram Vial) 1.5 Gm Vial, 0.75 GM IV Q8HRS for 7 Days, #11 EACH Prov:ARINA GALLEGOS MD 06/19/18 Atenolol/Chlorthalidone (ATENOLOL-CHLORTHAL 50-25 TB) 1 Each Tablet, 1 TAB PEG DAILY, #90 TAB 1 Refill Prov:RUDDY QUEZADA MD 06/15/18 Gabapentin (Gabapentin) 300 Mg Capsule, 300 MG PO TID for 30 Days, #90 CAP Prov:JAVIER IRVIN MD 02/18/18 Lactobacillus Rhamnosus Gg (CULTURELLE) 1 Each Cap.sprink, 1 CAP PO BID for 30 Days, #60 CAP Prov:JAVIER IRVIN MD 07/07/17 Reported Medications Lidocaine (Lidocaine) 1 Each Adh..patch, 1 EACH TP DAILY, PATCH 06/14/18 Cetirizine Hcl (CETIRIZINE HCL) 10 Mg Tablet, 1 TAB PO DAILY, #30 TAB 5 Refills 06/14/18 Losartan Potassium (LOSARTAN POTASSIUM) 100 Mg Tablet, 100 MG PO DAILY, TAB 06/14/18 Pantoprazole Sodium (PANTOPRAZOLE SODIUM) 40 Mg Tablet.dr, 40 MG PEG BID, TAB 03/11/17 Donepezil Hcl (DONEPEZIL HCL) 5 Mg Tablet, 5 MG PEG BID 03/11/17 Metoclopramide Hcl (REGLAN) 10 Mg Tablet, 5 MG PO QIDACHS 03/11/17 Cyproheptadine Hcl (CYPROHEPTADINE HCL) 2 Mg/5 Ml Syrup, 10 ML PEG TID, MISC 03/11/17 Oxycodone/Apap 7.5-325 (PERCOCET 7.5-325 MG TABLET) 1 Each Tablet, 1 TAB PO QID PRN for PAIN 03/11/17 Fentanyl (FENTANYL 50mcg/hr) 1 Each Patch.td72, 1 PATCH TP Q3DAYS 06/19/14 Ondansetron (ONDANSETRON ODT) 4 Mg Tab.rapdis, 4 MG PEG QIDPRN PRN for NAUSEA/ VOMITING 06/19/14 Discontinued Reported Medications Valsartan (DIOVAN) 160 Mg Tablet, 160 MG PEG DAILY, TAB 03/11/17 Albuterol Sulfate (PROAIR HFA INHALER) 8.5 Gm Hfa.aer.ad, 2 PUFF IH PRN Q4-6HRS 08/16/15 ARINA GALLEGOS MD Jun 19, 2018 09:53
--- NOTE | 2018-06-19 11:23 | PDOC ---
Infectious Disease Note Subjective Subjective Feeling alright, hoping to go home soon + tracheal secretions, no more than usual c/o some left leg pain Denies F/C/S/aches/SOA/CP/N/V/D ROS ROS per HPI otherwise neg Vital Sign Vital Signs Vital Signs Date Time Temp Pulse Resp B/P (MAP) Pulse Ox O2 Delivery O2 Flow Rate FiO2 06/19/18 09:32 155/79 (104) 06/19/18 08:10 100 Tracheal Collar 8.0 06/19/18 07:00 98.4 90 16 98.4 Physical Exam PHYSICAL EXAM GENERAL: Propped up in bed, alert, relaxed appearance HEENT: Normal conjunctivae. Oral mucosa is pink and moist. Edentulous NECK: Tracheostomy. LUNGS: Improved aeration, nonlabored HEART: S1 and S2. ABDOMEN: Bowel sounds active, soft, nontender. PEG tube intact. EXTREMITIES: Trace edema. No cyanosis. DP palpable SKIN: Warm without rash. NEUROLOGIC: Alert, communicating nonverbally, follows commands Port clean Labs Lab Laboratory Tests Test 06/19/18 04:45 Sodium Level 140 mmol/L (136-145) Potassium Level 3.9 mmol/L (3.5-5.1) Chloride Level 101 mmol/L (98-107) Carbon Dioxide Level 33 mmol/L (21-32) Anion Gap 6 (6-14) Blood Urea Nitrogen 13 mg/dL (7-20) Creatinine 0.7 mg/dL (0.6-1.0) Estimated GFR (Cockcroft-Gault) 98.2 Glucose Level 84 mg/dL (70-99) Calcium Level 9.3 mg/dL (8.5-10.1) Vancomycin Level Trough 17.4 mcg/mL (10.0-20.0) Vancomycin Last Dose Date 06/18/18 Vancomycin Last Dose Time 1830 Micro 06/14/18 Blood Culture - Preliminary, Resulted NO GROWTH AFTER 5 DAY GRAM STAIN RESULT 1 Final Few gram negative rods. GRAM STAIN RESULT 2 Final Few gram positive cocci GRAM STAIN RESULT 3 Final Few gram positive rods. SPUTUM CULT RES 1 Final Carbapenem-resistant Pseudomonas aeruginosa 4+ Multi-Drug Resistant Organism SPUTUM CULT RES 2 Final Routine respiratory jewell Antibiotic RSLT#1 Amikacin S<=2 Cefepime R>=64 Ceftazidime R>=64 Ciprofloxacin I =2 Gentamicin S<=1 Imipenem R>=16 Levofloxacin I =4 Meropenem I =8 Piperacillin R>=128 Ticarcillin R>=128 Tobramycin S<=1 Objective Assessment HCAP with MDR/CRE PSA. No oral options Leukocytosis which has improved Fmzaf-il-gwfqyoo respiratory failure SANCHEZ - improved Dysphagia, on tube feedings h/x lung ca h/o c. diff in 2017 h/o MRSA Plan Plan of Care Continue Zerbexa (started 06/15) D/c vanc Contact isolation Influenza screen neg DID NOT SEE OR DISCUSS PATIENT Attending Co-Sign Attending Co-Sign The patient was seen and interviewed as well as examined at the bedside. The chart was reviewed. The case was discussed. Agree with the plan of care. RAISA VILLAR APRN Jun 19, 2018 11:23 GWEN MCQUEEN MD Jun 19, 2018 16:25
== END 2018-06-19 11:28 | disposition home health service (06) | DRG 871 ==
LOC: ER 09:09 → 5 NORTH 12:00
PROVIDERS: ADMIT Internal Medicine; ATTEND Internal Medicine
DX: A41.9 Sepsis, unspecified organism (principal); J96.21 Acute and chronic respiratory failure with hypoxia; E43 Unspecified severe protein-calorie malnutrition; J96.22 Acute and chronic respiratory failure with hypercapnia; J18.9 Pneumonia, unspecified organism; I13.0 Hypertensive heart and chronic kidney disease with heart failure and stage 1 through stage 4 chronic kidney disease, or unspecified chronic kidney disease; J44.0 Chronic obstructive pulmonary disease with (acute) lower respiratory infection; J98.11 Atelectasis; N17.9 Acute kidney failure, unspecified; R64 Cachexia; D63.8 Anemia in other chronic diseases classified elsewhere; E78.5 Hyperlipidemia, unspecified; E83.41 Hypermagnesemia; F03.90 Unspecified dementia, unspecified severity, without behavioral disturbance, psychotic disturbance, mood disturbance, and anxiety; I50.9 Heart failure, unspecified; N18.9 Chronic kidney disease, unspecified; R13.10 Dysphagia, unspecified; F41.9 Anxiety disorder, unspecified; G62.9 Polyneuropathy, unspecified; M19.90 Unspecified osteoarthritis, unspecified site; Y95 Nosocomial condition; Z80.1 Family history of malignant neoplasm of trachea, bronchus and lung; Z82.49 Family history of ischemic heart disease and other diseases of the circulatory system; Z83.3 Family history of diabetes mellitus; Z85.118 Personal history of other malignant neoplasm of bronchus and lung; Z85.21 Personal history of malignant neoplasm of larynx; Z86.14 Personal history of Methicillin resistant Staphylococcus aureus infection; Z87.891 Personal history of nicotine dependence; Z88.6 Allergy status to analgesic agent; Z93.0 Tracheostomy status; Z93.1 Gastrostomy status; Z99.81 Dependence on supplemental oxygen; Z98.49 Cataract extraction status, unspecified eye; Z68.22 Body mass index [BMI] 22.0-22.9, adult; Z79.899 Other long term (current) drug therapy
CPT/HCPCS: 31720; 36415; 71045; 71250; 80048; 80053; 80202; 81001; 82553; 83605; 83735; 83880; 84484; 85025; 87040; 87070; 87186; 87205; 87641; 87804; 90471; 90756; 93005; 94640; 94760; 96361; 96374; 96375; J1100; J2270; J2405; J2543; J3010; J3370; J3490; J7030; J7050; J7620; J8597; 99285-25; C9452; Q2035

== ENCOUNTER 2018-06-29 14:47 | Emergency (ER) | payer MEDICARE, OTHER ==
[~2018-06-29] VITALS: Ht 157.5 cm; Wt 56.7 kg
[~2018-06-29 14:47] MED LIST changes: +CEFT1.5V IV; +LIDO700A39 TP; +LOSA100T7 PO
--- NOTE | 2018-06-29 16:05 | PHYS DOC ---
Past Medical History Past Medical History: Dementia, Hypertension, MRSA, Pneumonia, Other Additional Past Medical Histor: Lung CA Past Surgical History: Other Additional Past Surgical Histo: Cataract,PEG tube,CA trach,PORT Alcohol Use: None Drug Use: None Adult General Chief Complaint Chief Complaint: OTHER COMPLAINTS HPI HPI 78-year-old female presents to ER with complaints that her Port-A-Cath is not flushing and she is having pain when anything is attempted to be flushed. Patient was recently discharged from hospital with IV antibiotics for pneumonia and her home health nurse attempted to flush Port-A-Cath this morning when patient experienced the discomfort. Patient denies any chest pain, shortness of air, or palpitations. Patient's son who is at bedside reports patient has been doing really well since discharge from hospital and is having no other issues. Review of Systems Review of Systems Constitutional: Denies fever or chills [] Eyes: Denies change in visual acuity, redness, or eye pain [] HENT: Denies nasal congestion or sore throat [] Respiratory: Denies cough or shortness of breath [] Cardiovascular: No additional information not addressed in HPI [] GI: Denies abdominal pain, nausea, vomiting, bloody stools or diarrhea [] : Denies dysuria or hematuria [] Musculoskeletal: Denies back pain or joint pain [] Integument: Denies rash or skin lesions [] Neurologic: Denies headache, focal weakness or sensory changes [] Endocrine: Denies polyuria or polydipsia [] All other systems were reviewed and found to be within normal limits, except as documented in this note. Allergies Allergies Allergies Coded Allergies Type Severity Reaction Last Updated Verified aspirin Allergy Intermediate hives 03/16/17 Yes I S O L A T I O N *CONTACT* Allergy Unknown 02/15/18 Yes Physical Exam Physical Exam Constitutional: Well developed, well nourished, no acute distress, non-toxic appearance. [] HENT: Normocephalic, atraumatic, bilateral external ears normal, oropharynx moist, no oral exudates, nose normal. [] Eyes: PERRLA, EOMI, conjunctiva normal, no discharge. [] Neck: Normal range of motion, no tenderness, supple, no stridor. [] Cardiovascular:Heart rate regular rhythm, no murmur [] Lungs & Thorax: Bilateral breath sounds clear to auscultation [] Abdomen: Bowel sounds normal, soft, no tenderness, no masses, no pulsatile masses. [] Skin: Warm, dry, no erythema, no rash. [] Back: No tenderness, no CVA tenderness. [] Extremities: No tenderness, no cyanosis, no clubbing, ROM intact, no edema. [] Neurologic: Alert and oriented X 3, normal motor function, normal sensory function, no focal deficits noted. [] Psychologic: Affect normal, judgement normal, mood normal. [] Current Patient Data Vital Signs Vital Signs Date Time Temp Pulse Resp B/P (MAP) Pulse Ox O2 Delivery O2 Flow Rate FiO2 06/29/18 16:50 68 20 119/56 (77) 93 06/29/18 15:14 98.6 Tracheal Collar 3.0 98.6 EKG EKG [] Radiology/Procedures Radiology/Procedures [] Course & Med Decision Making Course & Med Decision Making During initial examination patient and family all reported that her Port-A-Cath had not been recently changed; however during further discussion with patient she reports the home health nurse had re-accessed her port this morning and that 's when she started having the pain with any type of port flushing. Patient was evaluated in the ER as her Port-A-Cath which was changed this morning and was causing her pain and would not flush per family at bedside. Exam found Port-A-Cath needle to be barely into subcutaneous skin and so that needle was removed and new Port-A-Cath needle used to re-access. This provider was able to easily access port with blood return and patient experienced no chest pain, shortness of air, or palpitations. Patient had no pain with flushing of the Port-A-Cath. Following Port-A-Cath placement patient was in no visible distress and both patient and family are comfortable with home discharge with no testing or additional care. Dragon Disclaimer Dragon Disclaimer This electronic medical record was generated, in whole or in part, using a voice recognition dictation system. Departure Departure Impression: Primary Impression: Encounter for care related to Port-a-Cath Disposition: HOME, SELF-CARE Condition: STABLE Referrals: CATHERINE MOSCOSO MD (PCP) Patient Instructions: Implanted Port Instructions Additional Instructions: Home health should continue caring for your Port-A-Cath as previously done. With any concerns follow-up with your primary care physician for reevaluation of site. Your Port-A-Cath was reaccessed while in the ER and was working appropriately with no pain with saline flushes. EMANUEL QUESADA APRN Jun 29, 2018 16:05
[2018-06-29 16:50] VITALS: BP 119/56
== END 2018-06-29 16:54 | disposition home or self-care (01) ==
LOC: ER 14:47
DX: Z45.2 Encounter for adjustment and management of vascular access device (principal); I10 Essential (primary) hypertension; Z88.6 Allergy status to analgesic agent
CPT/HCPCS: 99281; 99285

== ENCOUNTER 2018-07-13 06:51 | Inpatient (IN) | payer MEDICARE, OTHER ==
[2018-07-13] VITALS (16 sets, daily range): BP systolic 82–156; BP diastolic 44–77
[~2018-07-13] VITALS: Ht 157.5 cm; Wt 54.6 kg
[2018-07-13] MEDS ORDERED: IPRATRPIUM/ALBUTEROL 0.5/2.5MG 3 ML NEBU. NEB ONE (07:00)
--- NOTE | 2018-07-13 07:21 | EKG ---
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
[2018-07-13 07:34] LABS: CALCIUM 8.5 mg/dL (8.5-10.1); CREATININE 1.3 mg/dL (0.6-1.0); GFR 48.1; POTASSIUM 4.1 mmol/L (3.5-5.1)
[2018-07-13 07:37] LABS: BASO # 0.1 x10^3/uL (0.0-0.2); BASO % 1 % (0-3); EOS # 0.1 x10^3/uL (0.0-0.7); EOS % 0 % (0-3); HEMATOCRIT 32.6 % (36.0-47.0); HEMOGLOBIN 10.5 g/dL (12.0-15.5); LYMPH # 1.5 x10^3/uL (1.0-4.8); LYMPH % 12 % (24-48); MEAN CORPUSCULAR HEMOGLOBIN 26 pg (25-35); MEAN CORPUSCULAR HGB CONC 32 g/dL (31-37); MEAN CORPUSCULAR VOLUME 80 fL (79-100); MONO % 8 % (0-9); NEUT # 10.1 x10^3uL (1.8-7.7); NEUT % 79 % (31-73); PLATELET COUNT 374 x10^3/uL (140-400); RED CELL DISTRIBUTION WIDTH 18.1 % (11.5-14.5); WHITE BLOOD COUNT 12.8 x10^3/uL (4.0-11.0)
--- NOTE | 2018-07-13 08:09 | RAD ---
Indication:DYSPNEA AND HYPOXIA TECHNIQUE:Portable AP chest X-ray COMPARISON:06/14/2018 FINDINGS: Stable position of tracheostomy tube. Stable position of right-sided Chemo-Port with its tip in the SVC. Heart is normal in size. Diffuse interstitial opacities are seen. Mild left basilar consolidation likely subsegmental atelectasis. No pneumothorax or pleural effusion. Visualized bony thorax is within normal limits. IMPRESSION: Findings suggests interstitial pulmonary edema or atypical/viral infection. Electronically signed by: Collin Glasgow DO (07/13/2018 8:06 AM) [facility]
[2018-07-13] MEDS ORDERED: PIP/TAZO PER PHARMACY MC PRN (08:30)
[2018-07-13] MEDS ORDERED: ONDANSETRON PF 4 MG/2 ML VIAL. IV PRN (08:30)
[2018-07-13] MEDS ORDERED: ALBUTEROL SULFATE 2.5 MG/3 ML NEBU. NEB PRN ×2 (08:45→14:15)
[2018-07-13] MEDS ORDERED: IV NORMAL SALINE 500ML BAG 500 ML IV ONE (08:45)
[2018-07-13] MEDS ORDERED: PIPERACILLIN/TAZOBACTAM 3.375 GM in IV NORMAL SALINE 50ML 50 ML IV ONE (08:45)
--- NOTE | 2018-07-13 08:59 | PHYS DOC ---
Past Medical History Past Medical History: Dementia, Hypertension, MRSA, Pneumonia, Other Additional Past Medical Histor: Lung CA Past Surgical History: Other Additional Past Surgical Histo: Cataract,PEG tube,CA trach,PORT Alcohol Use: None Drug Use: None Adult General Chief Complaint Chief Complaint: DYSPNEA/RESPIRATOY DISTRESS HPI HPI Patient is a 78 year old female who presents with hypoxia. Patient has prior history of lung cancer. She is not currently undergoing any treatments. The patient is chronically ill however and lives at home and requires a lot of care which her family provides. The patient has a tracheostomy as well as feeding tube and a IV access port in the right chest. At baseline, the patient has room air oxygen saturations in the 50s to 60s. She does have an oxygen concentrator at home. This morning, family noted the patient to be hypoxic more than usual. She is ordinarily able to attain oxygen levels greater than 90% with her concentrator but this morning her saturations remained in the 40s and 50s despite the concentrator being turned up all the way. Family member also reports the patient has had some mental decline this morning. The patient was last admitted less than one month ago to this facility when she was diagnosed with pneumonia. She was treated with IV antibiotics and infectious disease was consulted. No fever is reported today. Review of Systems Review of Systems ROS not available from this patient on arrival as she is nonverbal All other systems were reviewed and found to be within normal limits, except as documented in this note. Current Medications Current Medications Current Medications Medications (Trade) Dose Ordered Sig/Yuliana Start Time Stop Time Status Last Admin Dose Admin Albuterol/ Ipratropium (Duoneb) 3 ml 1X ONCE 07/13/18 07:00 07/13/18 07:01 DC 07/13/18 07:24 3 ML Ondansetron HCl (Zofran) 4 mg PRN Q8HRS PRN 07/13/18 08:30 07/14/18 08:29 Piperacillin Sod/ Tazobactam Sod (Zosyn Per Pharmacy) 1 each PRN DAILY PRN 07/13/18 08:30 Vancomycin HCl (Vanco Per Pharmacy) 1 each PRN DAILY PRN 07/13/18 08:30 Allergies Allergies Allergies Coded Allergies Type Severity Reaction Last Updated Verified aspirin Allergy Intermediate hives 03/16/17 Yes I S O L A T I O N *CONTACT* Allergy Unknown 02/15/18 Yes Physical Exam Physical Exam Constitutional: chronically ill-appearing female, frail HENT: Normocephalic, atraumatic, bilateral external ears normal Eyes: PERRLA, EOMI, conjunctiva normal, no discharge, arcus senilis Neck: Normal range of motion, no tenderness, supple, no JVD, trach is present and congested Cardiovascular:Heart rate regular rhythm, no murmur Lungs & Thorax: diminished with few scattered wheezes, no increased work of breathing Abdomen: Bowel sounds normal, G-tube present and well-appearing skin surrounding Skin: Warm, dry, no erythema Extremities: no edema Neurologic: No facial asymmetry. Patient moves all extremities. She does not respond verbally but she does open eyes to command, depressed mental status according to family member at bedside. Current Patient Data Vital Signs Vital Signs Date Time Temp Pulse Resp B/P (MAP) Pulse Ox O2 Delivery O2 Flow Rate FiO2 07/13/18 08:20 76 20 96/51 (66) 98 Tracheal Collar 07/13/18 07:33 15.0 07/13/18 06:51 99.0 99.0 Lab Values Laboratory Tests Test 07/13/18 07:10 White Blood Count 12.8 x10^3/uL (4.0-11.0) H Red Blood Count 4.10 x10^6/uL (3.50-5.40) Hemoglobin 10.5 g/dL (12.0-15.5) L Hematocrit 32.6 % (36.0-47.0) L Mean Corpuscular Volume 80 fL (79-100) Mean Corpuscular Hemoglobin 26 pg (25-35) Mean Corpuscular Hemoglobin Concent 32 g/dL (31-37) Red Cell Distribution Width 18.1 % (11.5-14.5) H Platelet Count 374 x10^3/uL (140-400) Neutrophils (%) (Auto) 79 % (31-73) H Lymphocytes (%) (Auto) 12 % (24-48) L Monocytes (%) (Auto) 8 % (0-9) Eosinophils (%) (Auto) 0 % (0-3) Basophils (%) (Auto) 1 % (0-3) Neutrophils # (Auto) 10.1 x10^3uL (1.8-7.7) H Lymphocytes # (Auto) 1.5 x10^3/uL (1.0-4.8) Monocytes # (Auto) 1.0 x10^3/uL (0.0-1.1) Eosinophils # (Auto) 0.1 x10^3/uL (0.0-0.7) Basophils # (Auto) 0.1 x10^3/uL (0.0-0.2) Sodium Level 134 mmol/L (136-145) L Potassium Level 4.1 mmol/L (3.5-5.1) Chloride Level 95 mmol/L (98-107) L Carbon Dioxide Level 38 mmol/L (21-32) H Anion Gap 1 (6-14) L Blood Urea Nitrogen 31 mg/dL (7-20) H Creatinine 1.3 mg/dL (0.6-1.0) H Estimated GFR (Cockcroft-Gault) 48.1 Glucose Level 124 mg/dL (70-99) H Lactic Acid Level 0.6 mmol/L (0.4-2.0) Calcium Level 8.5 mg/dL (8.5-10.1) Troponin I Quantitative < 0.017 ng/mL (0.000-0.055) WG-Row-W-Type Natriuretic Peptide 2336 pg/mL (0-449) H Laboratory Tests 07/13/18 07:10 Laboratory Tests 07/13/18 07:10 EKG EKG No STEMI Interpretation Time: 07:00 Radiology/Procedures Radiology/Procedures FINDINGS: Stable position of tracheostomy tube. Stable position of right-sided Chemo-Port with its tip in the SVC. Heart is normal in size. Diffuse interstitial opacities are seen. Mild left basilar consolidation likely subsegmental atelectasis. No pneumothorax or pleural effusion. Visualized bony thorax is within normal limits. IMPRESSION: Findings suggests interstitial pulmonary edema or atypical/viral infection. Course & Med Decision Making Course & Med Decision Making Pertinent Labs and Imaging studies reviewed. (See chart for details) Patient is evaluated in the emergency Department for hypoxia and some decreased mental status. In the emergency department, she was given 1 albuterol nebulized treatment. She was given a gentle fluid bolus of 250 mL. Following the bolus, the patient did have some improvement in her mental status and was responding closer to baseline according to family member. Chest x-ray is concerning for pneumonia. The patient has history of multidrug resistant pneumonias. On 50% oxygen in the ER, her oxygen saturations did remain above 90%. The patient had no acute dyspnea. Plan is for admission to the hospital. Consultation was placed for infectious disease and pulmonary to see the patient. Given her recent hospitalization, she is empirically treated for hospital-acquired pneumonia with vancomycin, Zosyn, Levaquin. Dragon Disclaimer Dragon Disclaimer This electronic medical record was generated, in whole or in part, using a voice recognition dictation system. Departure Departure Referrals: CATHERINE MOSCOSO MD (PCP) NAMITA MARIN DO Jul 13, 2018 08:59
[2018-07-13] MEDS ORDERED: VANCOMYCIN 1.5 GM in IV NORMAL SALINE 500ML BAG 500 ML IV ONE (09:00)
--- NOTE | 2018-07-13 10:40 | RAD ---
PQRS Compliance Statement: One or more of the following individualized dose reduction techniques were utilized for this examination: 1. Automated exposure control 2. Adjustment of the mA and/or kV according to patient size 3. Use of iterative reconstruction technique CT HEAD WITHOUT CONTRAST History: Declining mental status Comparison: CT head without contrast, April 15, 2018. Technique: Axial images are obtained of the head from the skull base through the vertex without IV contrast. Findings: No mass-effect, midline shift, extra-axial fluid collection, hemorrhage, or obvious acute infarction is identified. Basilar cisterns are patent. The ventricles and sulci are normal for patient age. Bone windows demonstrate no acute calvarial abnormality. Moderate mucosal thickening bilateral ethmoid sinuses. No air-fluid level. Mastoid air cells are well aerated. IMPRESSION: No acute intracranial abnormality. Electronically signed by: Hayden Anand MD (07/13/2018 10:37 AM) [id number]
--- NOTE | 2018-07-13 10:56 | CONS ---
DATE OF CONSULTATION: ATTENDING PHYSICIAN: Dr. Daily. REASON FOR CONSULTATION: Respiratory failure. HISTORY OF PRESENT ILLNESS: The patient is very well known to us. She is a 78-year-old female who has chronic respiratory failure, has a chronic tracheostomy, history of lung cancer and laryngeal cancer. She has required hospitalizations on almost twice a month with recurrent respiratory failure. She has history of multidrug resistant pseudomonas pneumonias and also MRSA pneumonias. During her recent admission in early June, she also had a followup CT chest, which showed chronic mass-like consolidation in the left lower lobe, borderline mediastinal adenopathy and also infiltrate in the right lower lobe. She was brought into the hospital with increasing hypoxia and less responsiveness. She was noted to have saturations in the 40s and 50s despite her concentrator being turned up all the way. There has been thick purulent sputum coming through the tracheostomy tube. The patient was evaluated in the Emergency Room and a chest x-ray was obtained, which was reviewed by me. There are bilateral interstitial infiltrates. Appears to be worse than her last admission. White cell count was elevated. She also has some mild prerenal azotemia. The patient's CT head was also performed and the report is not available yet. Currently, she is requiring 50% oxygen via trach shield. She is arousable to commands, but becomes sleepy. PAST MEDICAL HISTORY: Extensive history of lung cancer, history of laryngeal cancer status post radiation and chemo and CT scan shows persistent mass-like consolidation in the left lower lobe. History of recurrent pneumonias, history of multidrug resistant pseudomonas pneumonia, history of MRSA. PAST SURGICAL HISTORY: Cataract surgery, PEG tube and tracheostomy tube. ALLERGIES: ASPIRIN. MEDICATIONS: Medications that were given in the ER were reviewed. REVIEW OF SYSTEMS: Unable to obtain from the patient. SOCIAL HISTORY: She has history of tobacco use in the past. Lives with her family. PHYSICAL EXAMINATION: GENERAL: She is arousable, but lethargic. VITAL SIGNS: Her blood pressure is stable at 109/59, T-max of 99, pulse ox 97% on 50% trach collar. HEENT: Sclerae nonicteric. Trach in place with purulent secretion. LUNGS: With coarse breath sounds bilaterally. CARDIOVASCULAR: Regular rate. ABDOMEN: Soft and a PEG in place. EXTREMITIES: With no pitting edema. LABORATORY DATA: Reviewed. BUN and creatinine 31 and 1.3. White cell count 12.8, hemoglobin 10.5 and platelets of 374. IMPRESSION: 1. Zqigk-qd-qrtgmjo hypoxic and suspect hypercapnic respiratory failure secondary to recurrent pneumonia and mucus plugging. 2. Abnormal chest x-ray with bilateral infiltrates, more suggesting pneumonia. 3. History of lung cancer and laryngeal cancer, status post chemo and radiation, status post tracheostomy. She has ongoing left lower lobe mass-like consolidation, which is most likely a residual tumor on a previous CT. 4. Encephalopathy secondary to pneumonia and possible early sepsis. RECOMMENDATIONS: 1. Continue with present trach collar at 50%. 2. Once she is more stabilized in the next 24 hours, we will consider doing a bronchoscopy. 3. Would add empiric antibiotic Zosyn and vancomycin. 4. Consult Infectious Disease due to her drug resistant pneumonias. 5. Bronchodilators. 6. DVT prophylaxis. 7. Enteral nutrition. 8. Would recommend having a palliative care consult regarding discussion of goals of care as well as advanced directives. 9. Discussed with RN and RT. We will follow along with you. We will obtain ABGs to rule out hypercapnia as well. Critical care time 37 minutes. MARY LANIER MD DR: AINSLEY/sena JOB#: [id number] / [id number] CATA
[2018-07-13 11:21] LABS: BASE EXCESS ABG 14 mmol/L (-3-3); HCO3 ABG 41 mmol/L (21-28); PO2 ABG 62 mmHg (65-108); SAT O2 ABG 89 % (92-99)
[2018-07-13 11:33] LABS: PCO2 ABG 72 mmHg (35-46)
[2018-07-13 11:34] LABS: FIO2 ABG 30% APN TRACH SHIELD
[2018-07-13] MEDS ORDERED: 0.9 % SODIUM CHLORIDE 10 ML DISP.SYRIN. IV PRN (12:00)
[2018-07-13] MEDS ORDERED: LIDOCAINE 2% VISCOUS 100 ML BOTTLE. MM PRN (12:00)
[2018-07-13] MEDS ORDERED: LIDOCAINE 1% Multi-Dose 50 ML VIAL. INJ PRN (12:00)
--- NOTE | 2018-07-13 12:56 | OP ---
DATE OF SURGERY: INDICATIONS: Pneumonia, mucus plugging and hypoxic respiratory failure. PROCEDURE: Informed consent was obtained from the patient's sister who is the DPOA. All risks and benefits were explained. She agreed to proceed with the procedure. Bronch was introduced through the tracheostomy tube. The patient had blood-tinged secretions in the trachea and also in the left main stem bronchus. The right lung was first examined. There were purulent secretions seen of the right lower lobe. Saline irrigation done and all secretions were removed. No definite endobronchial lesion or any hemorrhage seen on the right lung. Left lung was then examined. There was oozing of blood seen in the posterior medial subsegment of the left lower lobe. After careful inspection, no obvious endobronchial lesion seen in the subsegment. Bronchoalveolar lavage x 2 was performed from that area. Oozing of blood did stop and no active bleeding was observed. There was evidence of bronchomalacia in that subsegment, causing some narrowing at the opening. Left upper lobe, lingula and left lower lobe were all examined. The patient did have drop in saturation during the procedure and it did improve upon withdrawal of the scope. IMPRESSION: 1. Purulent secretions seen in the right lower lobe. 2. Blood-tinged secretions seen in the left mainstem and some active oozing of blood seen in the posterior medial subsegment of the left lower lobe. No definite endobronchial lesion seen. Bronchoalveolar lavage x 2 was performed from that area. 3. Follow the culture results and cytology. MARY LANIER MD DR: AINSLEY/sena JOB#: [id number] / [id number] CATA
[2018-07-13] MEDS ORDERED: PIPERACILLIN/TAZOBACTAM 3.375 GM in IV NORMAL SALINE 50ML 50 ML IV SCH (13:00)
--- NOTE | 2018-07-13 14:07 | PDOC1 ---
History and Physical Date of Admission Date of Admission 07/13/18 Identification/Chief Complaint Chief Complaint sob, desat Source Source: Chart review History of Present Illness History of Present Illness HPI 78-year-old female with past medical history of dementia resents via EMS with report of difficulty breathing. pt comes here every 1-2 months for similar symptoms , with sob, or PNA, or secretions from her trach. She has h/o laryngeal Ca, lung Ca, has chronic trach, chronic secretion. Today, as per ERP, and ICU nurse, pt's family found her sat droppes to 40s with max o2 at home. EMS was then called. currently pt looks calm, ICU nurse suctioned a lots of secretion, on trach collar, sat 90s. She is knows to have multi drug resistant bacteria PNA in the past. The patient was last admitted less than 20ds ago to this facility when she was diagnosed with pneumonia. She was dced with zerbaxa with HH. BP drop from 130s to 80s systolic. Past Medical History Cardiovascular: HTN Pulmonary: COPD, Previously Intubated, Pneumonia, Other CENTRAL NERVOUS SYSTEM: Other GI: Other Heme/Onc: Anemia NOS, Cancer Hepatobiliary: No pertinent hx Psych: No pertinent hx Rheumatologic: No pertinent hx Infectious disease: No pertinent hx Renal/: No pertinent hx Endocrine: No pertinent hx Past Surgical History Past Surgical History: Cataract Removal, Other Family History Family History: Heart Disease Social History Smoke: No ALCOHOL: none Drugs: None Current Medications Current Medications Current Medications Medications (Trade) Dose Ordered Sig/Yuliana Start Time Stop Time Status Last Admin Dose Admin Albuterol Sulfate (Ventolin Neb Soln) 2.5 mg PRN Q3HRS PRN 07/13/18 08:45 Albuterol/ Ipratropium (Duoneb) 3 ml 1X ONCE 07/13/18 07:00 07/13/18 07:01 DC 07/13/18 07:24 3 ML Levofloxacin/ Dextrose 150 ml @ 100 mls/hr 1X ONCE 07/13/18 09:00 07/13/18 10:29 DC 07/13/18 09:51 100 MLS/HR Lidocaine HCl (Lidocaine 1% 50ml Vial) 50 ml PRN 1X PRN 07/13/18 12:00 07/14/18 11:59 07/13/18 12:04 50 ML Ondansetron HCl (Zofran) 4 mg PRN Q8HRS PRN 07/13/18 08:30 07/14/18 08:29 Piperacillin Sod/ Tazobactam Sod (Zosyn Per Pharmacy) 1 each PRN DAILY PRN 07/13/18 08:30 Piperacillin Sod/ Tazobactam Sod 3.375 gm/Sodium Chloride 50 ml @ 100 mls/hr Q6HRS 07/13/18 13:00 07/13/18 12:58 100 MLS/HR Sodium Chloride (Normal Saline Flush) 3 ml QSHIFT PRN 07/13/18 12:00 Vancomycin HCl (Vanco Per Pharmacy) 1 each PRN DAILY PRN 07/13/18 08:30 Vancomycin HCl 1.5 gm/Sodium Chloride 500 ml @ 250 mls/hr 1X ONCE 07/13/18 09:00 07/13/18 10:59 DC 07/13/18 12:58 250 MLS/HR Allergies Allergies Allergies Coded Allergies Type Severity Reaction Last Updated Verified aspirin Allergy Intermediate hives 03/16/17 Yes I S O L A T I O N *CONTACT* Allergy Unknown 02/15/18 Yes ROS Review of System CONSTITUTIONAL: No fever or chills EYES: No recent changes SKIN: No rash or itching CARDIOVASCULAR: No chest pain, syncope, palpitations, or edema RESPIRATORY: No SOB or cough GASTROINTESTINAL: No nausea, vomiting or abdominal pain NEUROLOGICAL: No headaches or weakness ENDOCRINE: No cold or heat intolerance GENITOURINARY: No urgency or frequency of urination MUSCULOSKELETAL: No back pain or joint pain LYMPHATICS: No enlarged lymph nodes PSYCHIATRIC: No anxiety or depression Physical Exam Physical Exam GEN.: No apparent distress. not talking to me, follow commands by squeezing my hands. HEENT: Head is normocephalic, atraumatic. has trach with trach collar. NECK: Supple. LUNGS: bl mild coarse bs. HEART: RRR, S1, S2 present. Peripheral pulses intact ABDOMEN: Soft, nontender. Positive bowel sounds. has PEG. EXTREMITIES: Without any cyanosis. NEUROLOGIC: Normal speech, normal tone PSYCHIATRIC: Normal affect, normal mood. SKIN: No ulcerations Vitals Vitals Vital Signs Date Time Temp Pulse Resp B/P (MAP) Pulse Ox O2 Delivery O2 Flow Rate FiO2 07/13/18 12:00 Trach Collar 10.0 10/30/18 11:11 93 07/13/18 09:11 85 20 109/59 (76) 07/13/18 06:51 99.0 99.0 Labs Labs Laboratory Tests Test 07/13/18 07:10 07/13/18 11:20 White Blood Count 12.8 x10^3/uL (4.0-11.0) Red Blood Count 4.10 x10^6/uL (3.50-5.40) Hemoglobin 10.5 g/dL (12.0-15.5) Hematocrit 32.6 % (36.0-47.0) Mean Corpuscular Volume 80 fL (79-100) Mean Corpuscular Hemoglobin 26 pg (25-35) Mean Corpuscular Hemoglobin Concent 32 g/dL (31-37) Red Cell Distribution Width 18.1 % (11.5-14.5) Platelet Count 374 x10^3/uL (140-400) Neutrophils (%) (Auto) 79 % (31-73) Lymphocytes (%) (Auto) 12 % (24-48) Monocytes (%) (Auto) 8 % (0-9) Eosinophils (%) (Auto) 0 % (0-3) Basophils (%) (Auto) 1 % (0-3) Neutrophils # (Auto) 10.1 x10^3uL (1.8-7.7) Lymphocytes # (Auto) 1.5 x10^3/uL (1.0-4.8) Monocytes # (Auto) 1.0 x10^3/uL (0.0-1.1) Eosinophils # (Auto) 0.1 x10^3/uL (0.0-0.7) Basophils # (Auto) 0.1 x10^3/uL (0.0-0.2) Sodium Level 134 mmol/L (136-145) Potassium Level 4.1 mmol/L (3.5-5.1) Chloride Level 95 mmol/L (98-107) Carbon Dioxide Level 38 mmol/L (21-32) Anion Gap 1 (6-14) Blood Urea Nitrogen 31 mg/dL (7-20) Creatinine 1.3 mg/dL (0.6-1.0) Estimated GFR (Cockcroft-Gault) 48.1 Glucose Level 124 mg/dL (70-99) Lactic Acid Level 0.6 mmol/L (0.4-2.0) Calcium Level 8.5 mg/dL (8.5-10.1) Troponin I Quantitative < 0.017 ng/mL (0.000-0.055) [id number]-Type Natriuretic Peptide 2336 pg/mL (0-449) Procalcitonin 0.15 ng/mL (0.00-0.10) O2 Saturation 89 % (92-99) Arterial Blood pH 7.38 (7.35-7.45) Arterial Blood pCO2 at Patient Temp 72 mmHg (35-46) Arterial Blood pO2 at Patient Temp 62 mmHg (65-108) Arterial Blood HCO3 41 mmol/L (21-28) Arterial Blood Base Excess 14 mmol/L (-3-3) 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 [facility] Laboratory Tests Test 07/13/18 07:10 07/13/18 11:20 White Blood Count 12.8 x10^3/uL (4.0-11.0) Red Blood Count 4.10 x10^6/uL (3.50-5.40) Hemoglobin 10.5 g/dL (12.0-15.5) Hematocrit 32.6 % (36.0-47.0) Mean Corpuscular Volume 80 fL (79-100) Mean Corpuscular Hemoglobin 26 pg (25-35) Mean Corpuscular Hemoglobin Concent 32 g/dL (31-37) Red Cell Distribution Width 18.1 % (11.5-14.5) Platelet Count 374 x10^3/uL (140-400) Neutrophils (%) (Auto) 79 % (31-73) Lymphocytes (%) (Auto) 12 % (24-48) Monocytes (%) (Auto) 8 % (0-9) Eosinophils (%) (Auto) 0 % (0-3) Basophils (%) (Auto) 1 % (0-3) Neutrophils # (Auto) 10.1 x10^3uL (1.8-7.7) Lymphocytes # (Auto) 1.5 x10^3/uL (1.0-4.8) Monocytes # (Auto) 1.0 x10^3/uL (0.0-1.1) Eosinophils # (Auto) 0.1 x10^3/uL (0.0-0.7) Basophils # (Auto) 0.1 x10^3/uL (0.0-0.2) Sodium Level 134 mmol/L (136-145) Potassium Level 4.1 mmol/L (3.5-5.1) Chloride Level 95 mmol/L (98-107) Carbon Dioxide Level 38 mmol/L (21-32) Anion Gap 1 (6-14) Blood Urea Nitrogen 31 mg/dL (7-20) Creatinine 1.3 mg/dL (0.6-1.0) Estimated GFR (Cockcroft-Gault) 48.1 Glucose Level 124 mg/dL (70-99) Lactic Acid Level 0.6 mmol/L (0.4-2.0) Calcium Level 8.5 mg/dL (8.5-10.1) Troponin I Quantitative < 0.017 ng/mL (0.000-0.055) ET-[id number]-[id number]-Type Natriuretic Peptide 2336 pg/mL (0-449) Procalcitonin 0.15 ng/mL (0.00-0.10) O2 Saturation 89 % (92-99) Arterial Blood pH 7.38 (7.35-7.45) Arterial Blood pCO2 at Patient Temp 72 mmHg (35-46) Arterial Blood pO2 at Patient Temp 62 mmHg (65-108) Arterial Blood HCO3 41 mmol/L (21-28) Arterial Blood Base Excess 14 mmol/L (-3-3) 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 History of lung cancer. .History of laryngeal cancer. mild dementia HTN with hypotention now chronic anemia CKD3 plan: pulm, id consulted , restart zebaxa trach collar as needed bronch today with pulm duoneb cont home meds hold HTN meds for now given bp lower side, pressors if need to keep MAP >65 PEG feeding after bronch discussed with ICU nurse JAVIER IRVIN MD Jul 13, 2018 14:07
--- NOTE | 2018-07-13 14:07 | PDOC ---
Infectious Disease Note Vital Signs: Vital Signs Vital Signs Date Time Temp Pulse Resp B/P (MAP) Pulse Ox O2 Delivery O2 Flow Rate FiO2 07/13/18 12:00 Trach Collar 10.0 07/13/18 11:11 93 07/13/18 09:11 85 20 109/59 (76) 07/13/18 06:51 99.0 99.0 Medications: Inpatient Meds: Current Medications Medications (Trade) Dose Ordered Sig/Yuliana Start Time Stop Time Status Last Admin Dose Admin Albuterol Sulfate (Ventolin Neb Soln) 2.5 mg PRN Q3HRS PRN 07/13/18 08:45 Albuterol/ Ipratropium (Duoneb) 3 ml 1X ONCE 07/13/18 07:00 07/13/18 07:01 DC 07/13/18 07:24 3 ML Levofloxacin/ Dextrose 150 ml @ 100 mls/hr 1X ONCE 07/13/18 09:00 07/13/18 10:29 DC 07/13/18 09:51 100 MLS/HR Lidocaine HCl (Lidocaine 1% 50ml Vial) 50 ml PRN 1X PRN 07/13/18 12:00 07/14/18 11:59 07/13/18 12:04 50 ML Ondansetron HCl (Zofran) 4 mg PRN Q8HRS PRN 07/13/18 08:30 07/14/18 08:29 Piperacillin Sod/ Tazobactam Sod (Zosyn Per Pharmacy) 1 each PRN DAILY PRN 07/13/18 08:30 Piperacillin Sod/ Tazobactam Sod 3.375 gm/Sodium Chloride 50 ml @ 100 mls/hr Q6HRS 07/13/18 13:00 07/13/18 12:58 100 MLS/HR Sodium Chloride (Normal Saline Flush) 3 ml QSHIFT PRN 07/13/18 12:00 Vancomycin HCl (Vanco Per Pharmacy) 1 each PRN DAILY PRN 07/13/18 08:30 Vancomycin HCl 1.5 gm/Sodium Chloride 500 ml @ 250 mls/hr 1X ONCE 07/13/18 09:00 07/13/18 10:59 DC 07/13/18 12:58 250 MLS/HR Labs: Lab Laboratory Tests Test 07/13/18 07:10 07/13/18 11:20 White Blood Count 12.8 x10^3/uL (4.0-11.0) Red Blood Count 4.10 x10^6/uL (3.50-5.40) Hemoglobin 10.5 g/dL (12.0-15.5) Hematocrit 32.6 % (36.0-47.0) Mean Corpuscular Volume 80 fL (79-100) Mean Corpuscular Hemoglobin 26 pg (25-35) Mean Corpuscular Hemoglobin Concent 32 g/dL (31-37) Red Cell Distribution Width 18.1 % (11.5-14.5) Platelet Count 374 x10^3/uL (140-400) Neutrophils (%) (Auto) 79 % (31-73) Lymphocytes (%) (Auto) 12 % (24-48) Monocytes (%) (Auto) 8 % (0-9) Eosinophils (%) (Auto) 0 % (0-3) Basophils (%) (Auto) 1 % (0-3) Neutrophils # (Auto) 10.1 x10^3uL (1.8-7.7) Lymphocytes # (Auto) 1.5 x10^3/uL (1.0-4.8) Monocytes # (Auto) 1.0 x10^3/uL (0.0-1.1) Eosinophils # (Auto) 0.1 x10^3/uL (0.0-0.7) Basophils # (Auto) 0.1 x10^3/uL (0.0-0.2) Sodium Level 134 mmol/L (136-145) Potassium Level 4.1 mmol/L (3.5-5.1) Chloride Level 95 mmol/L (98-107) Carbon Dioxide Level 38 mmol/L (21-32) Anion Gap 1 (6-14) Blood Urea Nitrogen 31 mg/dL (7-20) Creatinine 1.3 mg/dL (0.6-1.0) Estimated GFR (Cockcroft-Gault) 48.1 Glucose Level 124 mg/dL (70-99) Lactic Acid Level 0.6 mmol/L (0.4-2.0) Calcium Level 8.5 mg/dL (8.5-10.1) Troponin I Quantitative < 0.017 ng/mL (0.000-0.055) TJ-Wbn-G-Type Natriuretic Peptide 2336 pg/mL (0-449) Procalcitonin 0.15 ng/mL (0.00-0.10) O2 Saturation 89 % (92-99) Arterial Blood pH 7.38 (7.35-7.45) Arterial Blood pCO2 at Patient Temp 72 mmHg (35-46) Arterial Blood pO2 at Patient Temp 62 mmHg (65-108) Arterial Blood HCO3 41 mmol/L (21-28) Arterial Blood Base Excess 14 mmol/L (-3-3) 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 SANCHEZ Dysphagia, on tube feedings h/x lung and laryngeal ca h/o c. 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
[2018-07-13] MEDS ORDERED: ONDANSETRON ODT 4 MG TAB.RAPDIS. PEG PRN (14:15)
[2018-07-13] MEDS ORDERED: ACETAMINOPHEN 325 MG TABLET. PO PRN (14:15)
[2018-07-13] MEDS ORDERED: traMADol 50 MG TABLET PO PRN (14:15)
[2018-07-13] MEDS ORDERED: DOCUSATE SODIUM 100 MG CAPSULE. PO PRN (14:15)
[2018-07-13] MEDS: IPRATRPIUM/ALBUTEROL 0.5/2.5MG 3 ML NEBU. NEB SCH ×2 (16:00→19:32)
[2018-07-13] MEDS: TAZOBACTAM IV SCH ×2 (16:16→21:24)
[2018-07-13] MEDS: NORMAL SALINE IV SCH ×2 (16:16→21:24)
[2018-07-13] MEDS: CEFTOLOZANE IV SCH ×2 (16:16→21:24)
[2018-07-13] MEDS: CYPROHEPTADINE 4 MG TABLET. PO SCH ×2 (16:17→21:23)
[2018-07-13] MEDS: LIDOCAINE (700MG/PATCH) PATCH. TD SCH (16:17)
[2018-07-13] MEDS: METOCLOPRAMIDE 10 MG TABLET. PO SCH ×2 (16:17→21:24)
[2018-07-13] MEDS: CETIRIZINE HCL 10 MG TABLET. PO SCH (16:17)
[2018-07-13] MEDS: fentaNYL 50MCG/HR PATCH 1 PATCH PATCH.TD72 TD SCH (16:17)
[2018-07-13] MEDS: DONEPEZIL HCL 5 MG TABLET. PEG SCH (16:18)
[2018-07-13] MEDS: PANTOPRAZOLE 40 MG TABLET.DR. PO SCH (16:18)
[2018-07-13] MEDS: VANCOMYCIN PER PHARMACY MC PRN (16:51)
[2018-07-13] MEDS: GABAPENTIN 300 MG CAPSULE. PO SCH (21:23)
[2018-07-13] MEDS: LACTOBACILLUS RHAMNOSUS GG 1 CAPSULE. PO SCH (21:23)
[2018-07-13] MEDS: HEPARIN for SUB-Q USE 5,000 UNIT/ML VIAL. SQ SCH (21:25)
[2018-07-13 21:56] LABS: INFLUENZA A PATIENT NEGATIVE (NEGATIVE); INFLUENZA B PATIENT NEGATIVE (NEGATIVE)
[2018-07-14] VITALS (12 sets, daily range): BP systolic 92–151; BP diastolic 45–78
--- NOTE | 2018-07-14 01:45 | CONS ---
DATE OF CONSULTATION: 07/13/2018 REFERRING PHYSICIAN: Dr. Ortiz. REASON FOR CONSULTATION: History of multidrug-resistant organism pneumonia. HISTORY OF PRESENT ILLNESS: A 78-year-old female, well known to us, presented to the ER with hypoxia. The patient has had history of prior lung cancer. She has history of chronic respiratory failure with tracheostomy. The patient has history of multidrug resistant/CRE Pseudomonas pneumonia. She has had multiple hospitalizations earlier this year for the same. The patient was found hypoxic before presentation at home by her family. With the use of the concentrator, her oxygen saturation was over 90%, but they remained around 40-50 despite turning it up all the way. They also found her to have confusion. She was brought to the hospital and admitted to ICU. The patient was started on empiric IV vancomycin and Zosyn. Chest x-ray showed bilateral interstitial infiltrates, which was worse compared to prior exam. She also had mild acute kidney injury. Lactate was normal at 0.6. She underwent head CT, which was negative for any acute intracranial abnormality. She underwent a bronchoscopy by Pulmonary earlier this morning with purulent secretions seen in the right lower lobe and blood-tinged secretions seen in the left mainstem and some active oozing of blood seen in the posterior medial subsegment of the left lower lobe. No definite endobronchial lesion was seen. Bronchoalveolar lavage was performed and fluid was sent for culture and susceptibility results. She had history of multiple hospitalizations, most recently in June for CRE pneumonia and was treated with Zerbaxa. PAST MEDICAL HISTORY: Laryngeal cancer, history of lung cancer, chronic respiratory failure, on trach, dysphagia, history of C. difficile in 2017, history of multidrug resistant/CRE Pseudomonas pneumonia, dementia, peripheral neuropathy, hyperlipidemia, congestive heart failure, hypertension, chronic obstructive pulmonary disease, sleep apnea, oxygen dependency, arthritis, anxiety, left femur fracture, history of MRSA. PAST SURGICAL HISTORY: Cataract extraction, oral surgery, tonsillectomy, tracheostomy, PEG tube placement. FAMILY HISTORY: As per HPI. SOCIAL HISTORY: The patient lives at home. Former smoker. ALLERGIES: ASPIRIN. CURRENT MEDICATIONS: Include vancomycin and Zosyn. Other medications reviewed in medication list. REVIEW OF SYSTEMS: Unable to obtain as the patient is sleepy. Discussed with RN. PHYSICAL EXAMINATION: VITAL SIGNS: Temperature 99, pulse 85, respiratory rate 20, blood pressure 109/59, oxygen saturation 93% on 10 liters. GENERAL: Drowsy, but arousable female, lying comfortably in bed. HEENT: Normocephalic, atraumatic. Sclerae are anicteric. NECK: Trach in place with purulent secretion. LUNGS: Coarse breath sounds bilaterally. HEART: S1, S2. ABDOMEN: Soft, bowel sounds present, nontender. PEG tube intact. EXTREMITIES: No edema, no cyanosis. DERMATOLOGIC: Warm without generalized rash. NEUROLOGIC: Drowsy, arousable, answering simple questions. CENTRAL NERVOUS SYSTEM: Sleepy, but arousable. Lines, PIV looks okay, right-sided port. LABORATORY DATA: WBC 12.8, hemoglobin 10.5, hematocrit 32.5, platelets 374. Sodium 134, potassium 4.1, chloride 95, bicarbonate 38, BUN 31, creatinine 1.3. Lactate 0.6. BNP 2336. Procalcitonin 0.15. Blood cultures done. Bronch cultures done. RADIOLOGY: Chest x-ray, interstitial pulmonary edema or atypical/viral infection. Head CT, no acute abnormality noted. IMPRESSION: 1. Acute on chronic hypoxic respiratory failure, suspect recurrent pneumonia versus mucus plugging with increased trach secretions, status post bronchoscopy with purulent secretions and blood stained sputum. 2. History of healthcare-associated pneumonia with history of carbapenem-resistant Pseudomonas multiple times this year, treated with Zerbaxa. 3. Leukocytosis. 4. Acute on chronic respiratory failure. 5. Acute kidney injury. 6. Encephalopathy, multifactorial. 7. History of lung cancer and laryngeal cancer, status post chemo and radiation, status post tracheostomy with ongoing left lower lobe mass-like consolidation, likely residual tumor. 8. History of methicillin-resistant Staphylococcus aureus. 9. History of Clostridium difficile in 2017. 10. Dysphagia, on tube feedings. RECOMMENDATIONS: 1. Continue empiric vancomycin. 2. Change Zosyn to Zerbaxa given the history of multidrug-resistant organism infection CRE Pneumonias in the past. 3. Maintain contact isolation. 4. We will check influenza screen. 5. Follow up cultures and lab in a.m. 6. Monitor renal functions closely. 7. Continue supportive care. 8. Agree with palliative care consult regarding discussion of goals of care due to recurrent admissions this year with MDRO infections. 9. Discussed with RN. Thank you, Dr. Ortiz for consulting Infectious Disease to participate in this patient's care. Critical care time 35 minutes. ELIE MATOS MD DR: HARI/sena JOB#: [id number] / [id number] CATA
[2018-07-14] MEDS: CEFTOLOZANE IV SCH ×3 (05:04→23:36)
[2018-07-14] MEDS: TAZOBACTAM IV SCH ×3 (05:04→23:36)
[2018-07-14] MEDS: NORMAL SALINE IV SCH ×3 (05:04→23:36)
[2018-07-14] MEDS: HEPARIN for SUB-Q USE 5,000 UNIT/ML VIAL. SQ SCH ×3 (06:03→23:37)
[2018-07-14] MEDS: VANCOMYCIN 1 GM in IV NORMAL SALINE 250ML 250 ML IV SCH (06:04)
[2018-07-14 06:32] LABS: BASO % 0 % (0-3); EOS # 0.2 x10^3/uL (0.0-0.7); EOS % 2 % (0-3); HEMATOCRIT 31.2 % (36.0-47.0); HEMOGLOBIN 9.7 g/dL (12.0-15.5); LYMPH # 2.1 x10^3/uL (1.0-4.8); LYMPH % 19 % (24-48); MEAN CORPUSCULAR HEMOGLOBIN 25 pg (25-35); MEAN CORPUSCULAR HGB CONC 31 g/dL (31-37); MEAN CORPUSCULAR VOLUME 80 fL (79-100); MONO # 0.9 x10^3/uL (0.0-1.1); MONO % 8 % (0-9); NEUT # 8.3 x10^3uL (1.8-7.7); NEUT % 72 % (31-73); PLATELET COUNT 349 x10^3/uL (140-400); RED BLOOD COUNT 3.89 x10^6/uL (3.50-5.40); RED CELL DISTRIBUTION WIDTH 17.7 % (11.5-14.5); WHITE BLOOD COUNT 11.5 x10^3/uL (4.0-11.0)
--- NOTE | 2018-07-14 07:56 | PDOC ---
Infectious Disease Note Subjective: Subjective pt is sleepy but arousable more awake today says feels better some sob and cough no f/c/d/n/v ROS: ROS Negative except for above. Vital Signs: Vital Signs Vital Signs Date Time Temp Pulse Resp B/P (MAP) Pulse Ox O2 Delivery O2 Flow Rate FiO2 07/14/18 07:34 98.9 74 16 125/58 (80) 97 tach shield 98.9 07/14/18 04:00 15.0 Physical Exam: PHYSICAL EXAM GENERAL: sleepy but arousable female, more alert today lying comfortably in bed. HEENT: Normocephalic, atraumatic. Sclerae are anicteric. NECK: Trach in place with purulent secretion. LUNGS: Coarse breath sounds bilaterally. HEART: S1, S2. ABDOMEN: Soft, bowel sounds present, nontender. PEG tube intact. EXTREMITIES: No edema, no cyanosis. DERMATOLOGIC: Warm without generalized rash. NEUROLOGIC: Drowsy, arousable, answering simple questions. CENTRAL NERVOUS SYSTEM: Sleepy, but arousable. Lines, PIV looks okay, right-sided port looks clean. Medications: Inpatient Meds: Current Medications Medications (Trade) Dose Ordered Sig/Yuliana Start Time Stop Time Status Last Admin Dose Admin Acetaminophen (Tylenol) 650 mg PRN Q6HRS PRN 07/13/18 14:15 Albuterol Sulfate (Ventolin Neb Soln) 2.5 mg PRN Q2HR PRN 07/13/18 14:15 Albuterol/ Ipratropium (Duoneb) 3 ml RTQID 07/13/18 16:00 07/13/18 19:32 3 ML Ceftolozane/ Tazobactam 750 mg/ Sodium Chloride 100 ml @ 100 mls/hr Q8HRS 07/13/18 14:30 07/14/18 05:04 100 MLS/HR Cetirizine HCl (ZyrTEC) 10 mg DAILY 07/13/18 15:00 07/13/18 16:17 10 MG Cyproheptadine HCl (Periactin) 4 mg TID 07/13/18 15:00 07/13/18 21:23 4 MG Docusate Sodium (Colace) 100 mg PRN DAILY PRN 07/13/18 14:15 Donepezil HCl (Aricept) 5 mg DAILY 07/13/18 15:00 07/13/18 16:18 5 MG Fentanyl (Duragesic 50mcg/ Hr Patch) 1 patch Q3DAYS 07/13/18 15:00 07/13/18 16:17 1 PATCH Gabapentin (Neurontin) 300 mg TID 07/13/18 21:00 07/13/18 21:23 300 MG Guaifenesin (Mucinex) 600 mg BID 07/13/18 21:00 07/13/18 21:23 600 MG Heparin Sodium (Porcine) (Heparin Sodium) 5,000 unit Q8HRS 07/13/18 22:00 07/14/18 06:03 5,000 UNIT Lactobacillus Rhamnosus (Culturelle) 1 cap BID 07/13/18 21:00 07/13/18 21:23 1 CAP Levofloxacin/ Dextrose 150 ml @ 100 mls/hr 1X ONCE 07/13/18 09:00 07/13/18 10:29 DC 07/13/18 09:51 100 MLS/HR Lidocaine (Lidoderm) 1 patch DAILY 07/13/18 15:00 07/13/18 16:17 1 PATCH Lidocaine HCl (Lidocaine 1% 50ml Vial) 50 ml PRN 1X PRN 07/13/18 12:00 07/14/18 11:59 07/13/18 12:04 50 ML Metoclopramide HCl (Reglan) 5 mg QIDACHS 07/13/18 16:30 07/13/18 21:24 5 MG Morphine Sulfate (Morphine Sulfate) 2 mg PRN Q2HR PRN 07/13/18 14:15 Ondansetron HCl (Zofran Odt) 4 mg QIDPRN PRN 07/13/18 14:15 Ondansetron HCl (Zofran) 4 mg PRN Q6HRS PRN 07/13/18 14:15 Oxycodone/ Acetaminophen (Percocet 7.5/ 325) 1 tab QID PRN 07/13/18 14:15 Pantoprazole Sodium (Protonix) 40 mg BIDAC 07/13/18 16:30 07/13/18 16:18 40 MG Piperacillin Sod/ Tazobactam Sod (Zosyn Per Pharmacy) 1 each PRN DAILY PRN 07/13/18 08:30 07/13/18 14:06 DC Piperacillin Sod/ Tazobactam Sod 3.375 gm/Sodium Chloride 50 ml @ 100 mls/hr Q6HRS 07/13/18 13:00 07/13/18 14:06 DC 07/13/18 12:58 100 MLS/HR Sodium Chloride (Normal Saline Flush) 3 ml QSHIFT PRN 07/13/18 12:00 Tramadol HCl (Ultram) 50 mg PRN Q6HRS PRN 07/13/18 14:15 Vancomycin HCl (Vanco Per Pharmacy) 1 each PRN DAILY PRN 07/13/18 08:30 07/13/18 16:51 1 EACH Vancomycin HCl (Vancomycin Trough Level) 1 each 1X ONCE 07/14/18 23:30 07/14/18 23:31 Vancomycin HCl 1.5 gm/Sodium Chloride 500 ml @ 250 mls/hr 1X ONCE 07/13/18 09:00 07/13/18 10:59 DC 07/13/18 12:58 250 MLS/HR Vancomycin HCl 1 gm/Sodium Chloride 250 ml @ 250 mls/hr Q18H 07/14/18 06:00 07/14/18 06:04 250 MLS/HR Labs: Lab Laboratory Tests Test 07/13/18 11:00 07/13/18 11:20 07/13/18 20:45 07/14/18 06:15 Nasal Screen MRSA (PCR) Negative (Negative) O2 Saturation 89 % (92-99) Arterial Blood pH 7.38 (7.35-7.45) Arterial Blood pCO2 at Patient Temp 72 mmHg (35-46) Arterial Blood pO2 at Patient Temp 62 mmHg (65-108) Arterial Blood HCO3 41 mmol/L (21-28) Arterial Blood Base Excess 14 mmol/L (-3-3) 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 Influenza Type A Antigen Negative (NEGATIVE) Influenza Type B Antigen Negative (NEGATIVE) White Blood Count 11.5 x10^3/uL (4.0-11.0) Red Blood Count 3.89 x10^6/uL (3.50-5.40) Hemoglobin 9.7 g/dL (12.0-15.5) Hematocrit 31.2 % (36.0-47.0) Mean Corpuscular Volume 80 fL (79-100) Mean Corpuscular Hemoglobin 25 pg (25-35) Mean Corpuscular Hemoglobin Concent 31 g/dL (31-37) Red Cell Distribution Width 17.7 % (11.5-14.5) Platelet Count 349 x10^3/uL (140-400) Neutrophils (%) (Auto) 72 % (31-73) Lymphocytes (%) (Auto) 19 % (24-48) Monocytes (%) (Auto) 8 % (0-9) Eosinophils (%) (Auto) 2 % (0-3) Basophils (%) (Auto) 0 % (0-3) Neutrophils # (Auto) 8.3 x10^3uL (1.8-7.7) Lymphocytes # (Auto) 2.1 x10^3/uL (1.0-4.8) Monocytes # (Auto) 0.9 x10^3/uL (0.0-1.1) Eosinophils # (Auto) 0.2 x10^3/uL (0.0-0.7) Basophils # (Auto) 0.0 x10^3/uL (0.0-0.2) Micro Objective: Assessment: Acute resp failure on chronic resp failure purulent sec on bronch from today h/o MDR /CRE PSAE HCAP leucocytosis. SANCHEZ Dysphagia, on tube feedings h/x lung and laryngeal ca h/o c. 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
[2018-07-14] MEDS: DONEPEZIL HCL 5 MG TABLET. PEG SCH (08:09)
[2018-07-14] MEDS: PANTOPRAZOLE 40 MG TABLET.DR. PO SCH ×2 (08:09→16:30)
[2018-07-14] MEDS: METOCLOPRAMIDE 10 MG TABLET. PO SCH ×4 (08:09→21:04)
[2018-07-14] MEDS: LACTOBACILLUS RHAMNOSUS GG 1 CAPSULE. PO SCH ×2 (08:09→21:04)
[2018-07-14] MEDS: GABAPENTIN 300 MG CAPSULE. PO SCH ×3 (08:10→21:04)
[2018-07-14] MEDS: CETIRIZINE HCL 10 MG TABLET. PO SCH (08:10)
[2018-07-14] MEDS: CYPROHEPTADINE 4 MG TABLET. PO SCH ×3 (08:10→21:04)
[2018-07-14] MEDS: LIDOCAINE (700MG/PATCH) PATCH. TD SCH (08:10)
[2018-07-14] MEDS: IPRATRPIUM/ALBUTEROL 0.5/2.5MG 3 ML NEBU. NEB SCH ×4 (08:50→20:26)
[2018-07-14 08:56] LABS: CALCIUM 8.5 mg/dL (8.5-10.1); GFR 65.1; POTASSIUM 3.9 mmol/L (3.5-5.1)
--- NOTE | 2018-07-14 12:04 | PDOC ---
PULMONARY PROGRESS NOTES Subjective fully awake Vitals Vital Signs Date Time Temp Pulse Resp B/P (MAP) Pulse Ox O2 Delivery O2 Flow Rate FiO2 07/14/18 11:37 Tracheal Collar 15.0 07/14/18 07:34 98.9 74 16 125/58 (80) 97 98.9 General: Alert, No acute distress HEENT: Other Lungs: Crackles Cardiovascular: S1, S2 Abdomen: Soft, Non-tender Extremities: No Edema Skin: Warm Labs Laboratory Tests Test 07/13/18 07:10 07/13/18 11:00 07/13/18 11:20 07/13/18 20:45 White Blood Count 12.8 x10^3/uL (4.0-11.0) Red Blood Count 4.10 x10^6/uL (3.50-5.40) Hemoglobin 10.5 g/dL (12.0-15.5) Hematocrit 32.6 % (36.0-47.0) Mean Corpuscular Volume 80 fL (79-100) Mean Corpuscular Hemoglobin 26 pg (25-35) Mean Corpuscular Hemoglobin Concent 32 g/dL (31-37) Red Cell Distribution Width 18.1 % (11.5-14.5) Platelet Count 374 x10^3/uL (140-400) Neutrophils (%) (Auto) 79 % (31-73) Lymphocytes (%) (Auto) 12 % (24-48) Monocytes (%) (Auto) 8 % (0-9) Eosinophils (%) (Auto) 0 % (0-3) Basophils (%) (Auto) 1 % (0-3) Neutrophils # (Auto) 10.1 x10^3uL (1.8-7.7) Lymphocytes # (Auto) 1.5 x10^3/uL (1.0-4.8) Monocytes # (Auto) 1.0 x10^3/uL (0.0-1.1) Eosinophils # (Auto) 0.1 x10^3/uL (0.0-0.7) Basophils # (Auto) 0.1 x10^3/uL (0.0-0.2) Sodium Level 134 mmol/L (136-145) Potassium Level 4.1 mmol/L (3.5-5.1) Chloride Level 95 mmol/L (98-107) Carbon Dioxide Level 38 mmol/L (21-32) Anion Gap 1 (6-14) Blood Urea Nitrogen 31 mg/dL (7-20) Creatinine 1.3 mg/dL (0.6-1.0) Estimated GFR (Cockcroft-Gault) 48.1 Glucose Level 124 mg/dL (70-99) Lactic Acid Level 0.6 mmol/L (0.4-2.0) Calcium Level 8.5 mg/dL (8.5-10.1) Troponin I Quantitative < 0.017 ng/mL (0.000-0.055) BB-Sbq-M-Type Natriuretic Peptide 2336 pg/mL (0-449) Procalcitonin 0.15 ng/mL (0.00-0.10) Nasal Screen MRSA (PCR) Negative (Negative) O2 Saturation 89 % (92-99) Arterial Blood pH 7.38 (7.35-7.45) Arterial Blood pCO2 at Patient Temp 72 mmHg (35-46) Arterial Blood pO2 at Patient Temp 62 mmHg (65-108) Arterial Blood HCO3 41 mmol/L (21-28) Arterial Blood Base Excess 14 mmol/L (-3-3) FiO2 30% director database [facility] Influenza Type A Antigen Negative (NEGATIVE) Influenza Type B Antigen Negative (NEGATIVE) Test 07/14/18 06:15 White Blood Count 11.5 x10^3/uL (4.0-11.0) Red Blood Count 3.89 x10^6/uL (3.50-5.40) Hemoglobin 9.7 g/dL (12.0-15.5) Hematocrit 31.2 % (36.0-47.0) Mean Corpuscular Volume 80 fL (79-100) Mean Corpuscular Hemoglobin 25 pg (25-35) Mean Corpuscular Hemoglobin Concent 31 g/dL (31-37) Red Cell Distribution Width 17.7 % (11.5-14.5) Platelet Count 349 x10^3/uL (140-400) Neutrophils (%) (Auto) 72 % (31-73) Lymphocytes (%) (Auto) 19 % (24-48) Monocytes (%) (Auto) 8 % (0-9) Eosinophils (%) (Auto) 2 % (0-3) Basophils (%) (Auto) 0 % (0-3) Neutrophils # (Auto) 8.3 x10^3uL (1.8-7.7) Lymphocytes # (Auto) 2.1 x10^3/uL (1.0-4.8) Monocytes # (Auto) 0.9 x10^3/uL (0.0-1.1) Eosinophils # (Auto) 0.2 x10^3/uL (0.0-0.7) Basophils # (Auto) 0.0 x10^3/uL (0.0-0.2) Sodium Level 141 mmol/L (136-145) Potassium Level 3.9 mmol/L (3.5-5.1) Chloride Level 102 mmol/L (98-107) Carbon Dioxide Level 35 mmol/L (21-32) Anion Gap 4 (6-14) Blood Urea Nitrogen 18 mg/dL (7-20) Creatinine 1.0 mg/dL (0.6-1.0) Estimated GFR (Cockcroft-Gault) 65.1 Glucose Level 96 mg/dL (70-99) Calcium Level 8.5 mg/dL (8.5-10.1) Laboratory Tests Test 07/13/18 20:45 07/14/18 06:15 Influenza Type A Antigen Negative (NEGATIVE) Influenza Type B Antigen Negative (NEGATIVE) White Blood Count 11.5 x10^3/uL (4.0-11.0) Red Blood Count 3.89 x10^6/uL (3.50-5.40) Hemoglobin 9.7 g/dL (12.0-15.5) Hematocrit 31.2 % (36.0-47.0) Mean Corpuscular Volume 80 fL (79-100) Mean Corpuscular Hemoglobin 25 pg (25-35) Mean Corpuscular Hemoglobin Concent 31 g/dL (31-37) Red Cell Distribution Width 17.7 % (11.5-14.5) Platelet Count 349 x10^3/uL (140-400) Neutrophils (%) (Auto) 72 % (31-73) Lymphocytes (%) (Auto) 19 % (24-48) Monocytes (%) (Auto) 8 % (0-9) Eosinophils (%) (Auto) 2 % (0-3) Basophils (%) (Auto) 0 % (0-3) Neutrophils # (Auto) 8.3 x10^3uL (1.8-7.7) Lymphocytes # (Auto) 2.1 x10^3/uL (1.0-4.8) Monocytes # (Auto) 0.9 x10^3/uL (0.0-1.1) Eosinophils # (Auto) 0.2 x10^3/uL (0.0-0.7) Basophils # (Auto) 0.0 x10^3/uL (0.0-0.2) Sodium Level 141 mmol/L (136-145) Potassium Level 3.9 mmol/L (3.5-5.1) Chloride Level 102 mmol/L (98-107) Carbon Dioxide Level 35 mmol/L (21-32) Anion Gap 4 (6-14) Blood Urea Nitrogen 18 mg/dL (7-20) Creatinine 1.0 mg/dL (0.6-1.0) Estimated GFR (Cockcroft-Gault) 65.1 Glucose Level 96 mg/dL (70-99) Calcium Level 8.5 mg/dL (8.5-10.1) Medications Active Scripts Medications Dose Route/Sig Max Daily Dose Days Date Category Zerbaxa 1-0.5 Gram Vial (Ceftolozane/Tazobactam) 1.5 Gm Vial 0.75 Gm IV Q8HRS 7 06/19/18 Rx Atenolol-Chlorthal 50-25 Tb (Atenolol/Chlorthalidone) 1 Each Tablet 1 Tab PEG DAILY 06/15/18 Rx Lidocaine 1 Each Adh..patch 1 Each TP DAILY 06/14/18 Reported Cetirizine Hcl 10 Mg Tablet 1 Tab PO DAILY 06/14/18 Reported Losartan Potassium 100 Mg Tablet 100 Mg PO DAILY 06/14/18 Reported Gabapentin 300 Mg Capsule 300 Mg PO TID 30 02/18/18 Rx Culturelle (Lactobacillus Rhamnosus Gg) 1 Each Cap.sprink 1 Cap PO BID 30 07/07/17 Rx Pantoprazole Sodium 40 Mg Tablet.dr 40 Mg PEG BID 03/11/17 Reported Donepezil Hcl 5 Mg Tablet 5 Mg PEG BID 03/11/17 Reported Reglan (Metoclopramide Hcl) 10 Mg Tablet 5 Mg PO QIDACHS 03/11/17 Reported Cyproheptadine Hcl 2 Mg/5 Ml Syrup 10 Ml PEG TID 03/11/17 Reported Percocet 7.5-325 Mg Tablet (Oxycodone/Acetaminophen) 1 Each Tablet 1 Tab PO QID PRN 03/11/17 Reported FENTANYL 50mcg/hr (Fentanyl) 1 Each Patch.td72 1 Patch TP Q3DAYS 06/19/14 Reported Ondansetron Odt (Ondansetron) 4 Mg Tab.rapdis 4 Mg PEG QIDPRN PRN 06/19/14 Reported Impression . 1. Astin-yp-wddqndr hypoxic and suspect hypercapnic respiratory failure secondary to recurrent pneumonia and mucus plugging. 2. Abnormal chest x-ray with bilateral infiltrates, more suggesting pneumonia. 3. History of lung cancer and laryngeal cancer, status post chemo and radiation, status post tracheostomy. She has ongoing left lower lobe mass-like consolidation, which is most likely a residual tumor on a previous CT. 4. Encephalopathy secondary to pneumonia and possible early sepsis.resolved Plan . 1. Continue with present trach collar . 2. s/p bronchoscopy. follow cultures 3. empiric antibiotic per ID 4. Consulted Infectious Disease due to her drug resistant pneumonias. 5. Bronchodilators. 6. DVT prophylaxis. 7. Enteral nutrition. 8. Would recommend having a palliative care consult regarding discussion of goals of care as well as advanced directives. 9. Discussed with RN and RT. transfer to floor MARY LANIER MD Jul 14, 2018 12:04
--- NOTE | 2018-07-14 12:22 | PDOC ---
PROGRESS NOTES Chief Complaint Chief Complaint Lzoky-hs-hpramck hypoxic and suspect hypercapnic respiratory failure secondary to recurrent pneumonia and mucus plugging, chronic trach Abnormal chest x-ray with bilateral infiltrates, more suggesting pneumonia. History of lung cancer and laryngeal cancer, status post chemo and radiation, status post tracheostomy. She has ongoing left lower lobe mass-like consolidation, which is most likely a residual tumor on a previous CT. 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 Mild dementia H/o HTN CKD stage 3 History of Present Illness History of Present Illness Pt seen and examined in ICU Laying in bed, chronic trach, alert and cooperative Discussed with RN Vitals Vitals Vital Signs Date Time Temp Pulse Resp B/P (MAP) Pulse Ox O2 Delivery O2 Flow Rate FiO2 07/14/18 11:37 Tracheal Collar 15.0 07/14/18 11:00 82 18 142/62 (88) 98 07/14/18 07:34 98.9 98.9 Physical Exam Physical Exam GENERAL: sleepy but arousable female, more alert today lying comfortably in bed. HEENT: Normocephalic, atraumatic. Sclerae are anicteric. NECK: Trach in place with purulent secretion. LUNGS: Coarse breath sounds bilaterally. HEART: S1, S2. ABDOMEN: Soft, bowel sounds present, nontender. PEG tube intact. EXTREMITIES: No edema, no cyanosis. DERMATOLOGIC: Warm without generalized rash. NEUROLOGIC: Drowsy, arousable, answering simple questions. CENTRAL NERVOUS SYSTEM: Sleepy, but arousable. Lines, PIV looks okay, right-sided port looks clean. General: Alert, Cooperative, No acute distress Heart: Regular rate, Normal S1, Normal S2 Lungs: Crackles (bilaterally) Abdomen: Normal bowel sounds, Soft Extremities: No clubbing, No cyanosis Skin: No rashes, No breakdown Labs LABS Laboratory Tests Test 07/13/18 20:45 07/14/18 06:15 Influenza Type A Antigen Negative (NEGATIVE) Influenza Type B Antigen Negative (NEGATIVE) White Blood Count 11.5 x10^3/uL (4.0-11.0) Red Blood Count 3.89 x10^6/uL (3.50-5.40) Hemoglobin 9.7 g/dL (12.0-15.5) Hematocrit 31.2 % (36.0-47.0) Mean Corpuscular Volume 80 fL (79-100) Mean Corpuscular Hemoglobin 25 pg (25-35) Mean Corpuscular Hemoglobin Concent 31 g/dL (31-37) Red Cell Distribution Width 17.7 % (11.5-14.5) Platelet Count 349 x10^3/uL (140-400) Neutrophils (%) (Auto) 72 % (31-73) Lymphocytes (%) (Auto) 19 % (24-48) Monocytes (%) (Auto) 8 % (0-9) Eosinophils (%) (Auto) 2 % (0-3) Basophils (%) (Auto) 0 % (0-3) Neutrophils # (Auto) 8.3 x10^3uL (1.8-7.7) Lymphocytes # (Auto) 2.1 x10^3/uL (1.0-4.8) Monocytes # (Auto) 0.9 x10^3/uL (0.0-1.1) Eosinophils # (Auto) 0.2 x10^3/uL (0.0-0.7) Basophils # (Auto) 0.0 x10^3/uL (0.0-0.2) Sodium Level 141 mmol/L (136-145) Potassium Level 3.9 mmol/L (3.5-5.1) Chloride Level 102 mmol/L (98-107) Carbon Dioxide Level 35 mmol/L (21-32) Anion Gap 4 (6-14) Blood Urea Nitrogen 18 mg/dL (7-20) Creatinine 1.0 mg/dL (0.6-1.0) Estimated GFR (Cockcroft-Gault) 65.1 Glucose Level 96 mg/dL (70-99) Calcium Level 8.5 mg/dL (8.5-10.1) Review of Systems Review of Systems Pt with no complaints, denies any chills, GRIFFIN, CP, or abd pain. Assessment and Plan Assessmemt and Plan Assessment: Pkejs-[id number] hypoxic and suspect hypercapnic respiratory failure secondary to recurrent pneumonia and mucus plugging, chronic trach Abnormal chest x-ray with bilateral infiltrates, more suggesting pneumonia. History of lung cancer and laryngeal cancer, status post chemo and radiation, status post tracheostomy. She has ongoing left lower lobe mass-like consolidation, which is most likely a residual tumor on a previous CT. 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 Mild dementia H/o HTN CKD stage 3 Plan: ICU monitoring Monitor labs Abx Breathing treatments Oxygen Trach care PEG feeds Home meds Appreciate pulm and ID input DVT ppx Possible downgrade to medical floor Comment Review of Relevant I have reviewed the following items miko (where applicable) has been applied. Labs Laboratory Tests Test 07/13/18 07:10 07/13/18 11:00 07/13/18 11:20 07/13/18 20:45 White Blood Count 12.8 x10^3/uL (4.0-11.0) Red Blood Count 4.10 x10^6/uL (3.50-5.40) Hemoglobin 10.5 g/dL (12.0-15.5) Hematocrit 32.6 % (36.0-47.0) Mean Corpuscular Volume 80 fL (79-100) Mean Corpuscular Hemoglobin 26 pg (25-35) Mean Corpuscular Hemoglobin Concent 32 g/dL (31-37) Red Cell Distribution Width 18.1 % (11.5-14.5) Platelet Count 374 x10^3/uL (140-400) Neutrophils (%) (Auto) 79 % (31-73) Lymphocytes (%) (Auto) 12 % (24-48) Monocytes (%) (Auto) 8 % (0-9) Eosinophils (%) (Auto) 0 % (0-3) Basophils (%) (Auto) 1 % (0-3) Neutrophils # (Auto) 10.1 x10^3uL (1.8-7.7) Lymphocytes # (Auto) 1.5 x10^3/uL (1.0-4.8) Monocytes # (Auto) 1.0 x10^3/uL (0.0-1.1) Eosinophils # (Auto) 0.1 x10^3/uL (0.0-0.7) Basophils # (Auto) 0.1 x10^3/uL (0.0-0.2) Sodium Level 134 mmol/L (136-145) Potassium Level 4.1 mmol/L (3.5-5.1) Chloride Level 95 mmol/L (98-107) Carbon Dioxide Level 38 mmol/L (21-32) Anion Gap 1 (6-14) Blood Urea Nitrogen 31 mg/dL (7-20) Creatinine 1.3 mg/dL (0.6-1.0) Estimated GFR (Cockcroft-Gault) 48.1 Glucose Level 124 mg/dL (70-99) Lactic Acid Level 0.6 mmol/L (0.4-2.0) Calcium Level 8.5 mg/dL (8.5-10.1) Troponin I Quantitative < 0.017 ng/mL (0.000-0.055) SH-Dai-V-Type Natriuretic Peptide 2336 pg/mL (0-449) Procalcitonin 0.15 ng/mL (0.00-0.10) Nasal Screen MRSA (PCR) Negative (Negative) O2 Saturation 89 % (92-99) Arterial Blood pH 7.38 (7.35-7.45) Arterial Blood pCO2 at Patient Temp 72 mmHg (35-46) Arterial Blood pO2 at Patient Temp 62 mmHg (65-108) Arterial Blood HCO3 41 mmol/L (21-28) Arterial Blood Base Excess 14 mmol/L (-3-3) 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 Influenza Type A Antigen Negative (NEGATIVE) Influenza Type B Antigen Negative (NEGATIVE) Test 07/14/18 06:15 White Blood Count 11.5 x10^3/uL (4.0-11.0) Red Blood Count 3.89 x10^6/uL (3.50-5.40) Hemoglobin 9.7 g/dL (12.0-15.5) Hematocrit 31.2 % (36.0-47.0) Mean Corpuscular Volume 80 fL (79-100) Mean Corpuscular Hemoglobin 25 pg (25-35) Mean Corpuscular Hemoglobin Concent 31 g/dL (31-37) Red Cell Distribution Width 17.7 % (11.5-14.5) Platelet Count 349 x10^3/uL (140-400) Neutrophils (%) (Auto) 72 % (31-73) Lymphocytes (%) (Auto) 19 % (24-48) Monocytes (%) (Auto) 8 % (0-9) Eosinophils (%) (Auto) 2 % (0-3) Basophils (%) (Auto) 0 % (0-3) Neutrophils # (Auto) 8.3 x10^3uL (1.8-7.7) Lymphocytes # (Auto) 2.1 x10^3/uL (1.0-4.8) Monocytes # (Auto) 0.9 x10^3/uL (0.0-1.1) Eosinophils # (Auto) 0.2 x10^3/uL (0.0-0.7) Basophils # (Auto) 0.0 x10^3/uL (0.0-0.2) Sodium Level 141 mmol/L (136-145) Potassium Level 3.9 mmol/L (3.5-5.1) Chloride Level 102 mmol/L (98-107) Carbon Dioxide Level 35 mmol/L (21-32) Anion Gap 4 (6-14) Blood Urea Nitrogen 18 mg/dL (7-20) Creatinine 1.0 mg/dL (0.6-1.0) Estimated GFR (Cockcroft-Gault) 65.1 Glucose Level 96 mg/dL (70-99) Calcium Level 8.5 mg/dL (8.5-10.1) Laboratory Tests Test 07/13/18 20:45 07/14/18 06:15 Influenza Type A Antigen Negative (NEGATIVE) Influenza Type B Antigen Negative (NEGATIVE) White Blood Count 11.5 x10^3/uL (4.0-11.0) Red Blood Count 3.89 x10^6/uL (3.50-5.40) Hemoglobin 9.7 g/dL (12.0-15.5) Hematocrit 31.2 % (36.0-47.0) Mean Corpuscular Volume 80 fL (79-100) Mean Corpuscular Hemoglobin 25 pg (25-35) Mean Corpuscular Hemoglobin Concent 31 g/dL (31-37) Red Cell Distribution Width 17.7 % (11.5-14.5) Platelet Count 349 x10^3/uL (140-400) Neutrophils (%) (Auto) 72 % (31-73) Lymphocytes (%) (Auto) 19 % (24-48) Monocytes (%) (Auto) 8 % (0-9) Eosinophils (%) (Auto) 2 % (0-3) Basophils (%) (Auto) 0 % (0-3) Neutrophils # (Auto) 8.3 x10^3uL (1.8-7.7) Lymphocytes # (Auto) 2.1 x10^3/uL (1.0-4.8) Monocytes # (Auto) 0.9 x10^3/uL (0.0-1.1) Eosinophils # (Auto) 0.2 x10^3/uL (0.0-0.7) Basophils # (Auto) 0.0 x10^3/uL (0.0-0.2) Sodium Level 141 mmol/L (136-145) Potassium Level 3.9 mmol/L (3.5-5.1) Chloride Level 102 mmol/L (98-107) Carbon Dioxide Level 35 mmol/L (21-32) Anion Gap 4 (6-14) Blood Urea Nitrogen 18 mg/dL (7-20) Creatinine 1.0 mg/dL (0.6-1.0) Estimated GFR (Cockcroft-Gault) 65.1 Glucose Level 96 mg/dL (70-99) Calcium Level 8.5 mg/dL (8.5-10.1) Microbiology 07/13/18 Blood Culture - Final, Complete 07/13/18 - Final, Complete Medications Current Medications Albuterol/ Ipratropium (Duoneb) 3 ml 1X ONCE NEB Last administered on at 07:24; Start 07/13/18 at 07:00; Stop 07/13/18 at 07:01; Status DC Ondansetron HCl (Zofran) 4 mg PRN Q8HRS PRN IV NAUSEA/VOMITING; Start at 08:30; Stop 07/14/18 at 08:29; Status DC Vancomycin HCl (Vanco Per Pharmacy) 1 each PRN DAILY PRN MC SEE COMMENTS Last administered on 07/13/18at 16:51; Start 07/13/18 at 08:30 Piperacillin Sod/ Tazobactam Sod (Zosyn Per Pharmacy) 1 each PRN DAILY PRN MC SEE COMMENTS; Start 07/13/18 at 08:30; Stop 07/13/18 at 14:06; Status DC Levofloxacin/ Dextrose 150 ml @ 100 mls/hr 1X ONCE IV Last administered on at 09:51; Start 07/13/18 at 09:00; Stop 07/13/18 at 10:29; Status DC Albuterol Sulfate (Ventolin Neb Soln) 2.5 mg PRN Q3HRS PRN NEB SHORTNESS OF BREATH; Start 07/13/18 at 08:45; Stop 07/13/18 at 14:23; Status DC Sodium Chloride 500 ml @ 250 mls/hr 1X ONCE IV Last administered on at 08:42; Start 07/13/18 at 08:45; Stop 07/13/18 at 10:44; Status DC Piperacillin Sod/ Tazobactam Sod 3.375 gm/Sodium Chloride 50 ml @ 100 mls/hr 1X ONCE IV Last administered on 07/13/18at 08:54; Start 07/13/18 at 08:45; Stop 07/13/18 at 14:06; Status DC Vancomycin HCl 1.5 gm/Sodium Chloride 500 ml @ 250 mls/hr 1X ONCE IV Last administered on 07/13/18at 12:58; Start 07/13/18 at 09:00; Stop 07/13/18 at 10 :59; Status DC Piperacillin Sod/ Tazobactam Sod 3.375 gm/Sodium Chloride 50 ml @ 100 mls/hr Q6HRS IV Last administered on 07/13/18at 12:58; Start 07/13/18 at 13:00; Stop 07/13/18 at 14:06; Status DC Sodium Chloride (Normal Saline Flush) 3 ml QSHIFT PRN IV AFTER MEDS AND BLOOD DRAWS; Start 07/13/18 at 12:00 Lidocaine HCl 100 ml PRN 1X PRN MM MOUTH PAIN Last administered on 07/13/18at 12:03; Start 07/13/18 at 12:00; Stop 07/14/18 at 11:59; Status DC Lidocaine HCl (Lidocaine 1% 50ml Vial) 50 ml PRN 1X PRN INJ SEE COMMENTS Last administered on 07/13/18at 12:04; Start 07/13/18 at 12:00; Stop 07/14/18 at 11 :59; Status DC Ceftolozane/ Tazobactam 750 mg/ Sodium Chloride 100 ml @ 100 mls/hr Q8HRS IV Last administered on 07/14/18 05:04; Start 07/13/18 at 14:30 Cetirizine HCl (ZyrTEC) 10 mg DAILY PO Last administered on 07/14/18 08:10; Start 07/13/18 at 15:00 Fentanyl (Duragesic 50mcg/ Hr Patch) 1 patch Q3DAYS TD Last administered on 16:17; Start 07/13/18 at 15:00 Lactobacillus Rhamnosus (Culturelle) 1 cap BID PO Last administered on 08:09; Start 07/13/18 at 21:00 Metoclopramide HCl (Reglan) 5 mg QIDACHS PO Last administered on 07/14/18 08: 09; Start 07/13/18 at 16:30 Ondansetron HCl (Zofran Odt) 4 mg QIDPRN PRN PEG NAUSEA/VOMITING; Start at 14:15 Oxycodone/ Acetaminophen (Percocet 7.5/ 325) 1 tab QID PRN PO SEVERE PAIN; Start 07/13/18 at 14:15 Pantoprazole Sodium (Protonix) 40 mg BIDAC PO Last administered on 07/14/18 08:09; Start 07/13/18 at 16:30 Cyproheptadine HCl (Periactin) 4 mg TID PO Last administered on 07/14/18 08: 10; Start 07/13/18 at 15:00 Donepezil HCl (Aricept) 5 mg DAILY PEG Last administered on 07/14/18 08:09; Start 07/13/18 at 15:00 Gabapentin (Neurontin) 300 mg TID PO Last administered on 07/14/18 08:10; Start 07/13/18 at 21:00 Lidocaine (Lidoderm) 1 patch DAILY TD Last administered on 07/14/18 08:10; Start 07/13/18 at 15:00 Acetaminophen (Tylenol) 650 mg PRN Q6HRS PRN PO FEVER; Start 07/13/18 at 14:15 Ondansetron HCl (Zofran) 4 mg PRN Q6HRS PRN IV NAUSEA/VOMITING; Start at 14:15 Morphine Sulfate (Morphine Sulfate) 2 mg PRN Q2HR PRN IV MODERATE TO SEVERE PAIN; Start 07/13/18 at 14:15 Tramadol HCl (Ultram) 50 mg PRN Q6HRS PRN PO MILD TO MODERATE PAIN; Start at 14:15 Docusate Sodium (Colace) 100 mg PRN DAILY PRN PO CONSTIPATION; Start 07/13/18 at 14:15 Albuterol/ Ipratropium (Duoneb) 3 ml RTQID NEB Last administered on 07/14/18at 11:37; Start 07/13/18 at 16:00 Albuterol Sulfate (Ventolin Neb Soln) 2.5 mg PRN Q2HR PRN NEB SHORTNESS OF BREATH; Start 07/13/18 at 14:15 Guaifenesin (Mucinex) 600 mg BID PO Last administered on 07/14/18at 08:10; Start 07/13/18 at 21:00 Heparin Sodium (Porcine) (Heparin Sodium) 5,000 unit Q8HRS SQ Last administered on 07/14/18at 06:03; Start 07/13/18 at 22:00 Vancomycin HCl 1 gm/Sodium Chloride 250 ml @ 250 mls/hr Q18H IV Last administered on 07/14/18at 06:04; Start 07/14/18 at 06:00 Vancomycin HCl (Vancomycin Trough Level) 1 each 1X ONCE MC ; Start 07/14/18 at 23:30; Stop 07/14/18 at 23:31 Active Scripts Active Zerbaxa 1-0.5 Gram Vial (Ceftolozane/Tazobactam) 1.5 Gm Vial 0.75 Gm IV Q8HRS 7 Days Atenolol-Chlorthal 50-25 Tb (Atenolol/Chlorthalidone) 1 Each Tablet 1 Tab PEG DAILY Gabapentin 300 Mg Capsule 300 Mg PO TID 30 Days Culturelle (Lactobacillus Rhamnosus Gg) 1 Each Cap.sprink 1 Cap PO BID 30 Days Reported Lidocaine 1 Each Adh..patch 1 Each TP DAILY Cetirizine Hcl 10 Mg Tablet 1 Tab PO DAILY Losartan Potassium 100 Mg Tablet 100 Mg PO DAILY Pantoprazole Sodium 40 Mg Tablet.dr 40 Mg PEG BID Donepezil Hcl 5 Mg Tablet 5 Mg PEG BID Reglan (Metoclopramide Hcl) 10 Mg Tablet 5 Mg PO QIDACHS Cyproheptadine Hcl 2 Mg/5 Ml Syrup 10 Ml PEG TID Percocet 7.5-325 Mg Tablet (Oxycodone/Acetaminophen) 1 Each Tablet 1 Tab PO QID PRN FENTANYL 50mcg/hr (Fentanyl) 1 Each Patch.td72 1 Patch TP Q3DAYS Ondansetron Odt (Ondansetron) 4 Mg Tab.rapdis 4 Mg PEG QIDPRN PRN Vitals/I & O Vital Sign - Last 24 Hours 07/13/18 07/13/18 07/13/18 07/13/18 12:30 13:00 14:00 15:00 Pulse 90 88 80 82 B/P (MAP) 153/76 (101) 156/54 (88) 109/48 (68) 129/59 (82) Pulse Ox 93 95 95 95 O2 Delivery Trach. Shield Trach. Shield Trach. Shield Trach. Shield O2 Flow Rate 10.0 10.0 10.0 10.0 07/13/18 07/13/18 07/13/18 07/13/18 16:00 16:00 16:07 16:17 Temp 98.5 98.5 Pulse 80 Resp 19 B/P (MAP) 110/54 (72) Pulse Ox 96 95 95 O2 Delivery Trach Collar Trach. Shield Tracheal Collar O2 Flow Rate 10.0 8.0 15.0 15.0 07/13/18 07/13/18 07/13/18 07/13/18 17:00 18:00 19:00 19:33 Temp 99.1 99.1 Pulse 88 82 78 Resp 19 20 B/P (MAP) 102/51 (68) 113/46 (68) 105/52 (69) Pulse Ox 97 92 98 96 O2 Delivery Trach. Shield Trach. Shield trach shield Tracheal Collar O2 Flow Rate 8.0 8.0 15.0 07/13/18 07/13/18 07/13/18 07/13/18 20:00 20:15 20:20 21:30 Pulse 88 84 Resp 20 20 20 B/P (MAP) 124/77 (93) 123/60 (81) Pulse Ox 97 95 95 O2 Delivery Trach Collar trach shield trach shield O2 Flow Rate 15.0 07/13/18 07/13/18 07/14/18 07/14/18 22:00 23:00 00:00 00:00 Temp 98.7 98.7 Pulse 84 84 76 B/P (MAP) 123/59 (80) 97/49 (65) Pulse Ox 97 100 95 O2 Delivery trach shield trach shield Trach Collar O2 Flow Rate 15.0 07/14/18 07/14/18 07/14/18 07/14/18 01:00 01:15 02:00 03:00 Pulse 86 78 74 Resp 20 20 20 B/P (MAP) 137/78 (97) 92/45 (61) 98/49 (65) Pulse Ox 98 99 99 O2 Delivery TRACH SHIELD Tracheal Collar trach shield TRACH SHIELD O2 Flow Rate 15.0 07/14/18 07/14/18 07/14/18 07/14/18 04:00 04:00 05:00 06:00 Temp 98.4 98.4 Pulse 74 76 76 Resp 20 20 B/P (MAP) 112/54 (73) 106/54 (71) 118/56 (76) Pulse Ox 99 97 99 O2 Delivery trach shield Trach Collar trach shield trach shield O2 Flow Rate 15.0 07/14/18 07/14/18 07/14/18 07/14/18 07:34 08:00 08:51 11:00 Temp 98.9 98.9 Pulse 74 82 Resp 16 18 B/P (MAP) 125/58 (80) 142/62 (88) Pulse Ox 97 98 O2 Delivery tach shield Trach Collar Tracheal Collar trach shield O2 Flow Rate 10.0 15.0 07/14/18 11:37 O2 Delivery Tracheal Collar O2 Flow Rate 15.0 Intake and Output 07/13/18 07/13/18 07/14/18 15:00 23:00 07:00 Intake Total 750 ml 450 ml 718 ml Output Total 800 ml 400 ml 675 ml Balance -50 ml 50 ml 43 ml Nutrition Consultation Dietary Evaluation: Recommendations by RD: Increase Calorie Intake Comments: REC TF per following: Jevity 1.5 bolus QID, 1 carton/237 ml per bolus, w/100 ml water flushes before and after each feeding Expected Outcomes/Goals: TF intake to meet >75% est needs Malnutrition Findings: Body Fat Depletion (Non Severe: Mild Depletion SAMMY WILEY III DO Jul 14, 2018 12:22
[2018-07-14] MEDS: MORPHINE SULFATE 2 MG/ML VIAL. IV PRN (13:31)
[2018-07-14] MEDS: VANCOMYCIN PER PHARMACY MC PRN (13:46)
--- NOTE | 2018-07-14 17:51 | PDOC2 ---
PALLIATIVE CARE Palliative Care Note Palliative Care Consult requested by Dr. Ortiz to address goals of care. Medical Assessment per medical record; 1. [id number] hypoxic and suspect hypercapnic respiratory failure secondary to recurrent pneumonia and mucus plugging. 2. Abnormal chest x-ray with bilateral infiltrates, more suggesting pneumonia. 3. History of lung cancer and laryngeal cancer, status post chemo and radiation, status post tracheostomy. She has ongoing left lower lobe mass-like consolidation, which is most likely a residual tumor on a previous CT. 4. Encephalopathy secondary to pneumonia and possible early sepsis.resolved Patient alert. Trach shield in place. Denies pain or SOB Received permission to call family to arrange family meeting. Attempted to reach DPOA Mark Martinez-----message left to return call WARREN MOODY Jul 14, 2018 17:51
--- NOTE | 2018-07-14 18:06 | PATHOLOGY ---
Note [facility] Accession Number: [id number] TESTS RESULT FLAG UNITS REF RANGE LAB Clinician Provided Cytology Information No. of containers..01 Other (Miscellaneous) Source: LLL BAL DIAGNOSIS: LLL BAL NEGATIVE FOR MALIGNANT CELLS. FEW BRONCHIAL EPITHELIAL CELLS AND PULMONARY MACROPHAGES IDENTIFIED WITHIN A BACKGROUND OF ACUTE INFLAMMATORY CELLS. THIS EVALUATION INCLUDES EXAMINATION OF A CELL BLOCK. Signed out by: 02 Jorge Tierney MD, Pathologist NPI- [id number] Performed by: Stephany Singer, Saw Superintendent ([facility]) Gross description: 01 .5ML, PINK, CLOUDY /LCS FLAG LEGEND: L-Low Normal,H-High Normal,LL-Alert Low,HH-Alert High <-Panic Low,>-Panic High,A-Abnormal,AA-Critical Abnormal Performed at: [address] [address] Khanh Jacobson MD, 02 [facility] [address] [place] [address] Jorge Tierney MD, Specimen Comment: A courtesy copy of this report has been sent to Specimen Comment: [phone]. Specimen Comment: Report sent to Specimen Comment: A duplicate report has been generated due to demographic updates. Performed at: [address], [place], [place] [id number] MD Khanh Jacobson MD Phone: [phone]
--- NOTE | 2018-07-14 18:06 | PATHOLOGY ---
Note [facility] Accession Number: [id number] TESTS RESULT FLAG UNITS REF RANGE LAB Clinician Provided Cytology Information No. of containers..01 Other (Miscellaneous) Source: 01 RLL BRONCH WASH DIAGNOSIS: 02 RLL BRONCH WASH NEGATIVE FOR MALIGNANT CELLS. FEW BRONCHIAL EPTHELIAL CELLS AND PULMONARY MACROPHAGES IDENTIFIED WITHIN A BACKGROUND OF ACUTE INFLAMMATORY CELLS. Signed out by: 02 Jorge Tierney MD, Pathologist NPI- [id number] Performed by: Stephany Singer, Boring Machine Set Up Operator Jig ([facility]) Gross description: 01 5ML, RED, CLOUDY /LCS FLAG LEGEND: L-Low Normal,H-High Normal,LL-Alert Low,HH-Alert High <-Panic Low,>-Panic High,A-Abnormal,AA-Critical Abnormal Performed at: [address] [address] Khanh Jacobson MD, 02 [facility] [address] [place] [address] Jorge Tierney MD, Specimen Comment: A courtesy copy of this report has been sent to Specimen Comment: [phone]. Specimen Comment: Report sent to Specimen Comment: A duplicate report has been generated due to demographic updates. Performed at: [address] [place] [id number] MD Khanh Jacobson MD Phone: [phone]
[2018-07-15] MEDS: VANCOMYCIN 1 GM in IV NORMAL SALINE 250ML 250 ML IV SCH ×2 (00:35→21:15)
[2018-07-15] MEDS: VANCOMYCIN PER PHARMACY MC PRN ×2 (02:45→09:40)
[2018-07-15 03:00] VITALS: BP 151/68
[2018-07-15] MEDS: ONDANSETRON PF 4 MG/2 ML VIAL. IV PRN ×2 (03:48→21:17)
--- NOTE | 2018-07-15 04:15 | RAD ---
PORTABLE CHEST 1V, KUB Clinical History: NAUSEA, VOMITING; CHECK TRACH PLACEMENT Technique: AP view of the chest was obtained at 07/15/2018 3:52 AM. Comparison: July 13, 2018. Findings: The tracheostomy device and right Port-A-Cath is again seen unchanged. The heart is mildly enlarged. The pulmonary vessels appear normal. There is patchy opacities of the lungs and obscuration left hemidiaphragm. Impression: Diffuse pulmonary infiltrates unchanged and increasing left lower lobe consolidation. Electronically signed by: Fidel Samuels III, MD (07/15/2018 4:12 AM) [facility]
--- NOTE | 2018-07-15 04:15 | RAD ---
PORTABLE CHEST 1V, KUB Clinical History: NAUSEA, VOMITING; CHECK TRACH PLACEMENT Technique: AP view of the chest was obtained at 07/15/2018 3:52 AM. Comparison: July 13, 2018. Findings: The tracheostomy device and right Port-A-Cath is again seen unchanged. The heart is mildly enlarged. The pulmonary vessels appear normal. There is patchy opacities of the lungs and obscuration left hemidiaphragm. Impression: Diffuse pulmonary infiltrates unchanged and increasing left lower lobe consolidation. Electronically signed by: Fidel Samuels III, MD (07/15/2018 4:12 AM) [facility]
[2018-07-15] MEDS: TAZOBACTAM IV SCH ×3 (06:03→23:28)
[2018-07-15] MEDS: CEFTOLOZANE IV SCH ×3 (06:03→23:28)
[2018-07-15] MEDS: NORMAL SALINE IV SCH ×3 (06:03→23:28)
[2018-07-15] MEDS: MORPHINE SULFATE 2 MG/ML VIAL. IV PRN (06:03)
[2018-07-15] MEDS: HEPARIN for SUB-Q USE 5,000 UNIT/ML VIAL. SQ SCH ×3 (06:05→21:23)
[2018-07-15 06:30] LABS: BASO % 1 % (0-3); EOS # 0.4 x10^3/uL (0.0-0.7); EOS % 4 % (0-3); HEMATOCRIT 31.9 % (36.0-47.0); HEMOGLOBIN 9.9 g/dL (12.0-15.5); LYMPH # 1.4 x10^3/uL (1.0-4.8); LYMPH % 13 % (24-48); MEAN CORPUSCULAR HEMOGLOBIN 25 pg (25-35); MEAN CORPUSCULAR HGB CONC 31 g/dL (31-37); MEAN CORPUSCULAR VOLUME 81 fL (79-100); MONO # 0.8 x10^3/uL (0.0-1.1); MONO % 7 % (0-9); NEUT # 8.1 x10^3uL (1.8-7.7); NEUT % 76 % (31-73); PLATELET COUNT 361 x10^3/uL (140-400); RED BLOOD COUNT 3.96 x10^6/uL (3.50-5.40); RED CELL DISTRIBUTION WIDTH 17.9 % (11.5-14.5); WHITE BLOOD COUNT 10.7 x10^3/uL (4.0-11.0)
[2018-07-15 06:31] LABS: CALCIUM 8.8 mg/dL (8.5-10.1); CREATININE 0.9 mg/dL (0.6-1.0); GFR 73.5
[2018-07-15] MEDS ORDERED: DEXTROSE 50% 25 GM / 50ML DISP.SYRIN. IV ONE ×2 (06:41→07:00)
[2018-07-15] MEDS: PANTOPRAZOLE 40 MG TABLET.DR. PO SCH ×2 (07:30→15:03)
[2018-07-15 08:00] VITALS: BP 138/65
[2018-07-15] MEDS: CETIRIZINE HCL 10 MG TABLET. PO SCH (09:00)
[2018-07-15] MEDS: IPRATRPIUM/ALBUTEROL 0.5/2.5MG 3 ML NEBU. NEB SCH ×4 (09:03→20:27)
--- NOTE | 2018-07-15 09:03 | PDOC ---
Infectious Disease Note Subjective Subjective Not feeling very good this morning Tired, weak No fevers/chills + tracheal secretions Denies SOA/CP Tube feedings ROS ROS per HPI otherwise neg Vital Sign Vital Signs Vital Signs Date Time Temp Pulse Resp B/P (MAP) Pulse Ox O2 Delivery O2 Flow Rate FiO2 07/15/18 08:00 Trach Collar 8.0 07/15/18 06:33 16 98 07/15/18 05:00 98.2 98.2 07/15/18 03:00 96 151/68 (95) Physical Exam PHYSICAL EXAM GENERAL: Resting quietly, appears comfortable HEENT: Oral cavity pink, moist NECK: Trach to trach shield LUNGS: Improved aeration HEART: S1, S2, regular ABDOMEN: Soft, bowel sounds present, nontender. PEG tube intact. EXTREMITIES: No edema, no cyanosis. DERMATOLOGIC: Warm without generalized rash. NEUROLOGIC: Arouses to name, nods to questions, sleepy Port - ok Labs Lab Laboratory Tests Test 07/14/18 23:30 07/15/18 06:10 07/15/18 06:18 Vancomycin Level Trough 15.0 mcg/mL (10.0-20.0) Vancomycin Last Dose Date 07/14/18 Vancomycin Last Dose Time 0600 Glucose (Fingerstick) 57 mg/dL (70-99) White Blood Count 10.7 x10^3/uL (4.0-11.0) Red Blood Count 3.96 x10^6/uL (3.50-5.40) Hemoglobin 9.9 g/dL (12.0-15.5) Hematocrit 31.9 % (36.0-47.0) Mean Corpuscular Volume 81 fL (79-100) Mean Corpuscular Hemoglobin 25 pg (25-35) Mean Corpuscular Hemoglobin Concent 31 g/dL (31-37) Red Cell Distribution Width 17.9 % (11.5-14.5) Platelet Count 361 x10^3/uL (140-400) Neutrophils (%) (Auto) 76 % (31-73) Lymphocytes (%) (Auto) 13 % (24-48) Monocytes (%) (Auto) 7 % (0-9) Eosinophils (%) (Auto) 4 % (0-3) Basophils (%) (Auto) 1 % (0-3) Neutrophils # (Auto) 8.1 x10^3uL (1.8-7.7) Lymphocytes # (Auto) 1.4 x10^3/uL (1.0-4.8) Monocytes # (Auto) 0.8 x10^3/uL (0.0-1.1) Eosinophils # (Auto) 0.4 x10^3/uL (0.0-0.7) Basophils # (Auto) 0.0 x10^3/uL (0.0-0.2) Sodium Level 142 mmol/L (136-145) Potassium Level 4.0 mmol/L (3.5-5.1) Chloride Level 104 mmol/L (98-107) Carbon Dioxide Level 33 mmol/L (21-32) Anion Gap 5 (6-14) Blood Urea Nitrogen 16 mg/dL (7-20) Creatinine 0.9 mg/dL (0.6-1.0) Estimated GFR (Cockcroft-Gault) 73.5 Glucose Level 60 mg/dL (70-99) Calcium Level 8.8 mg/dL (8.5-10.1) CXR Diffuse pulmonary infiltrates unchanged and increasing left lower lobe consolidation. Micro 07/13. BLOOD CULTURE Final GRAM POSITIVE COCCIIN CLUSTERS 1SET DRAWN, 1 OF 2 POSITIVE 07/13. bronch BRONCHIAL GRAM STAIN Final WBCS MANY RBCS MANY GRAM POSITIVE COCCI OCCASIONAL GRAM POSITIVE RODS OCCASIONAL AFB CULTURE GRAM STAIN Final Negative Objective Assessment Acute on chronic resp failure s/p bronch 07/13. GOC & GPR GPC bacteremia POA on 07/13 (1 of 2 bottles) h/o MDR /CRE PSAE HCAP Leucocytosis - improved SANCHEZ - better Dysphagia, on tube feedings h/x lung and laryngeal ca h/o c. diff in 2017 h/o MRSA Encephalopathy likely multifactorial - better Plan Plan of Care cont Zerbaxa and vanc Trough 15.0 Probiotics monitor labs/renal functions closely s/p one dose of Levaquin 07/13 f/u cultures Supportive care D/w sister Attending Co-Sign Attending Co-Sign The patient was seen and interviewed as well as examined at the bedside. The chart was reviewed. The case was discussed. Agree with the plan of care. RAISA VILLAR APRN Jul 15, 2018 09:03 GWEN MCQUEEN MD Jul 15, 2018 13:13
[2018-07-15] MEDS: GABAPENTIN 300 MG CAPSULE. PO SCH ×3 (09:14→21:16)
[2018-07-15] MEDS: LACTOBACILLUS RHAMNOSUS GG 1 CAPSULE. PO SCH ×2 (09:14→21:16)
[2018-07-15] MEDS: CYPROHEPTADINE 4 MG TABLET. PO SCH ×3 (09:14→21:16)
[2018-07-15] MEDS: LIDOCAINE (700MG/PATCH) PATCH. TD SCH (09:14)
[2018-07-15] MEDS: DONEPEZIL HCL 5 MG TABLET. PEG SCH (09:14)
[2018-07-15] MEDS: METOCLOPRAMIDE 10 MG TABLET. PO SCH ×4 (09:15→21:16)
[2018-07-15 11:00] VITALS: BP 127/58
--- NOTE | 2018-07-15 12:39 | PDOC ---
PROGRESS NOTES Chief Complaint Chief Complaint Paebo-fs-upwtwbg hypoxic and suspect hypercapnic respiratory failure secondary to recurrent pneumonia and mucus plugging, chronic trach Abnormal chest x-ray with bilateral infiltrates, more suggesting pneumonia. History of lung cancer and laryngeal cancer, status post chemo and radiation, status post tracheostomy. She has ongoing left lower lobe mass-like consolidation, which is most likely a residual tumor on a previous CT. 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 Mild dementia H/o HTN CKD stage 3 History of Present Illness History of Present Illness Pt seen and examined in ICU Laying in bed, chronic trach with trach shield, alert and cooperative Discussed with RN Vitals Vitals Vital Signs Date Time Temp Pulse Resp B/P (MAP) Pulse Ox O2 Delivery O2 Flow Rate FiO2 07/15/18 12:12 99 Tracheal Collar 8.0 07/15/18 11:00 98.5 85 17 127/58 (81) 98.5 Physical Exam Physical Exam GENERAL: Resting quietly, appears comfortable HEENT: Oral cavity pink, moist NECK: Trach to trach shield LUNGS: Improved aeration HEART: S1, S2, regular ABDOMEN: Soft, bowel sounds present, nontender. PEG tube intact. EXTREMITIES: No edema, no cyanosis. DERMATOLOGIC: Warm without generalized rash. NEUROLOGIC: Arouses to name, nods to questions, sleepy Port - ok General: Alert, Cooperative, No acute distress Heart: Regular rate, Normal S1, Normal S2 Lungs: Crackles (bilaterally) Abdomen: Soft, No tenderness Extremities: No clubbing, No cyanosis Skin: No rashes, No breakdown Labs LABS Laboratory Tests Test 07/14/18 23:30 07/15/18 06:10 07/15/18 06:18 07/15/18 09:27 Vancomycin Level Trough 15.0 mcg/mL (10.0-20.0) Vancomycin Last Dose Date 07/14/18 Vancomycin Last Dose Time 0600 Glucose (Fingerstick) 57 mg/dL (70-99) 88 mg/dL (70-99) White Blood Count 10.7 x10^3/uL (4.0-11.0) Red Blood Count 3.96 x10^6/uL (3.50-5.40) Hemoglobin 9.9 g/dL (12.0-15.5) Hematocrit 31.9 % (36.0-47.0) Mean Corpuscular Volume 81 fL (79-100) Mean Corpuscular Hemoglobin 25 pg (25-35) Mean Corpuscular Hemoglobin Concent 31 g/dL (31-37) Red Cell Distribution Width 17.9 % (11.5-14.5) Platelet Count 361 x10^3/uL (140-400) Neutrophils (%) (Auto) 76 % (31-73) Lymphocytes (%) (Auto) 13 % (24-48) Monocytes (%) (Auto) 7 % (0-9) Eosinophils (%) (Auto) 4 % (0-3) Basophils (%) (Auto) 1 % (0-3) Neutrophils # (Auto) 8.1 x10^3uL (1.8-7.7) Lymphocytes # (Auto) 1.4 x10^3/uL (1.0-4.8) Monocytes # (Auto) 0.8 x10^3/uL (0.0-1.1) Eosinophils # (Auto) 0.4 x10^3/uL (0.0-0.7) Basophils # (Auto) 0.0 x10^3/uL (0.0-0.2) Sodium Level 142 mmol/L (136-145) Potassium Level 4.0 mmol/L (3.5-5.1) Chloride Level 104 mmol/L (98-107) Carbon Dioxide Level 33 mmol/L (21-32) Anion Gap 5 (6-14) Blood Urea Nitrogen 16 mg/dL (7-20) Creatinine 0.9 mg/dL (0.6-1.0) Estimated GFR (Cockcroft-Gault) 73.5 Glucose Level 60 mg/dL (70-99) Calcium Level 8.8 mg/dL (8.5-10.1) Review of Systems Review of Systems Pt denies CP and abdominal pain. Assessment and Plan Assessmemt and Plan Assessment: Jiaxh-xs-dgwtfre hypoxic and suspect hypercapnic respiratory failure secondary to recurrent pneumonia and mucus plugging, chronic trach Abnormal chest x-ray with bilateral infiltrates, more suggesting pneumonia. History of lung cancer and laryngeal cancer, status post chemo and radiation, status post tracheostomy. She has ongoing left lower lobe mass-like consolidation, which is most likely a residual tumor on a previous CT. 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 Mild dementia H/o HTN CKD stage 3 Plan: ICU monitoring Monitor labs Abx Breathing treatments Trach care Cont PEG feeds Home meds Appreciate subspecialist input DVT ppx Palliative to arrange family meeting Comment Review of Relevant I have reviewed the following items miko (where applicable) has been applied. Labs Laboratory Tests Test 07/13/18 20:45 07/14/18 06:15 07/14/18 23:30 07/15/18 06:10 Influenza Type A Antigen Negative (NEGATIVE) Influenza Type B Antigen Negative (NEGATIVE) White Blood Count 11.5 x10^3/uL (4.0-11.0) Red Blood Count 3.89 x10^6/uL (3.50-5.40) Hemoglobin 9.7 g/dL (12.0-15.5) Hematocrit 31.2 % (36.0-47.0) Mean Corpuscular Volume 80 fL (79-100) Mean Corpuscular Hemoglobin 25 pg (25-35) Mean Corpuscular Hemoglobin Concent 31 g/dL (31-37) Red Cell Distribution Width 17.7 % (11.5-14.5) Platelet Count 349 x10^3/uL (140-400) Neutrophils (%) (Auto) 72 % (31-73) Lymphocytes (%) (Auto) 19 % (24-48) Monocytes (%) (Auto) 8 % (0-9) Eosinophils (%) (Auto) 2 % (0-3) Basophils (%) (Auto) 0 % (0-3) Neutrophils # (Auto) 8.3 x10^3uL (1.8-7.7) Lymphocytes # (Auto) 2.1 x10^3/uL (1.0-4.8) Monocytes # (Auto) 0.9 x10^3/uL (0.0-1.1) Eosinophils # (Auto) 0.2 x10^3/uL (0.0-0.7) Basophils # (Auto) 0.0 x10^3/uL (0.0-0.2) Sodium Level 141 mmol/L (136-145) Potassium Level 3.9 mmol/L (3.5-5.1) Chloride Level 102 mmol/L (98-107) Carbon Dioxide Level 35 mmol/L (21-32) Anion Gap 4 (6-14) Blood Urea Nitrogen 18 mg/dL (7-20) Creatinine 1.0 mg/dL (0.6-1.0) Estimated GFR (Cockcroft-Gault) 65.1 Glucose Level 96 mg/dL (70-99) Calcium Level 8.5 mg/dL (8.5-10.1) Vancomycin Level Trough 15.0 mcg/mL (10.0-20.0) Vancomycin Last Dose Date 07/14/18 Vancomycin Last Dose Time 0600 Glucose (Fingerstick) 57 mg/dL (70-99) Test 07/15/18 06:18 07/15/18 09:27 White Blood Count 10.7 x10^3/uL (4.0-11.0) Red Blood Count 3.96 x10^6/uL (3.50-5.40) Hemoglobin 9.9 g/dL (12.0-15.5) Hematocrit 31.9 % (36.0-47.0) Mean Corpuscular Volume 81 fL (79-100) Mean Corpuscular Hemoglobin 25 pg (25-35) Mean Corpuscular Hemoglobin Concent 31 g/dL (31-37) Red Cell Distribution Width 17.9 % (11.5-14.5) Platelet Count 361 x10^3/uL (140-400) Neutrophils (%) (Auto) 76 % (31-73) Lymphocytes (%) (Auto) 13 % (24-48) Monocytes (%) (Auto) 7 % (0-9) Eosinophils (%) (Auto) 4 % (0-3) Basophils (%) (Auto) 1 % (0-3) Neutrophils # (Auto) 8.1 x10^3uL (1.8-7.7) Lymphocytes # (Auto) 1.4 x10^3/uL (1.0-4.8) Monocytes # (Auto) 0.8 x10^3/uL (0.0-1.1) Eosinophils # (Auto) 0.4 x10^3/uL (0.0-0.7) Basophils # (Auto) 0.0 x10^3/uL (0.0-0.2) Sodium Level 142 mmol/L (136-145) Potassium Level 4.0 mmol/L (3.5-5.1) Chloride Level 104 mmol/L (98-107) Carbon Dioxide Level 33 mmol/L (21-32) Anion Gap 5 (6-14) Blood Urea Nitrogen 16 mg/dL (7-20) Creatinine 0.9 mg/dL (0.6-1.0) Estimated GFR (Cockcroft-Gault) 73.5 Glucose Level 60 mg/dL (70-99) Calcium Level 8.8 mg/dL (8.5-10.1) Glucose (Fingerstick) 88 mg/dL (70-99) Laboratory Tests Test 07/14/18 23:30 07/15/18 06:10 07/15/18 06:18 07/15/18 09:27 Vancomycin Level Trough 15.0 mcg/mL (10.0-20.0) Vancomycin Last Dose Date 07/14/18 Vancomycin Last Dose Time 0600 Glucose (Fingerstick) 57 mg/dL (70-99) 88 mg/dL (70-99) White Blood Count 10.7 x10^3/uL (4.0-11.0) Red Blood Count 3.96 x10^6/uL (3.50-5.40) Hemoglobin 9.9 g/dL (12.0-15.5) Hematocrit 31.9 % (36.0-47.0) Mean Corpuscular Volume 81 fL (79-100) Mean Corpuscular Hemoglobin 25 pg (25-35) Mean Corpuscular Hemoglobin Concent 31 g/dL (31-37) Red Cell Distribution Width 17.9 % (11.5-14.5) Platelet Count 361 x10^3/uL (140-400) Neutrophils (%) (Auto) 76 % (31-73) Lymphocytes (%) (Auto) 13 % (24-48) Monocytes (%) (Auto) 7 % (0-9) Eosinophils (%) (Auto) 4 % (0-3) Basophils (%) (Auto) 1 % (0-3) Neutrophils # (Auto) 8.1 x10^3uL (1.8-7.7) Lymphocytes # (Auto) 1.4 x10^3/uL (1.0-4.8) Monocytes # (Auto) 0.8 x10^3/uL (0.0-1.1) Eosinophils # (Auto) 0.4 x10^3/uL (0.0-0.7) Basophils # (Auto) 0.0 x10^3/uL (0.0-0.2) Sodium Level 142 mmol/L (136-145) Potassium Level 4.0 mmol/L (3.5-5.1) Chloride Level 104 mmol/L (98-107) Carbon Dioxide Level 33 mmol/L (21-32) Anion Gap 5 (6-14) Blood Urea Nitrogen 16 mg/dL (7-20) Creatinine 0.9 mg/dL (0.6-1.0) Estimated GFR (Cockcroft-Gault) 73.5 Glucose Level 60 mg/dL (70-99) Calcium Level 8.8 mg/dL (8.5-10.1) Microbiology 07/13/18 Blood Culture - Final, Complete 07/13/18 AFB Specimen Processing Tissue - Final, Resulted 07/13/18 Acid Fast Bacilli Culture, Resulted Pending 07/13/18 Gram Stain - Final, Resulted 07/13/18 Fungal Culture, Resulted Pending 07/13/18 Fungal Culture Result 1, Resulted Pending Medications Current Medications Albuterol/ Ipratropium (Duoneb) 3 ml 1X ONCE NEB Last administered on at 07:24; Start 07/13/18 at 07:00; Stop 07/13/18 at 07:01; Status DC Ondansetron HCl (Zofran) 4 mg PRN Q8HRS PRN IV NAUSEA/VOMITING; Start at 08:30; Stop 07/14/18 at 08:29; Status DC Vancomycin HCl (Vanco Per Pharmacy) 1 each PRN DAILY PRN MC SEE COMMENTS Last administered on 07/15/18at 09:40; Start 07/13/18 at 08:30 Piperacillin Sod/ Tazobactam Sod (Zosyn Per Pharmacy) 1 each PRN DAILY PRN MC SEE COMMENTS; Start 07/13/18 at 08:30; Stop 07/13/18 at 14:06; Status DC Levofloxacin/ Dextrose 150 ml @ 100 mls/hr 1X ONCE IV Last administered on at 09:51; Start 07/13/18 at 09:00; Stop 07/13/18 at 10:29; Status DC Albuterol Sulfate (Ventolin Neb Soln) 2.5 mg PRN Q3HRS PRN NEB SHORTNESS OF BREATH; Start 07/13/18 at 08:45; Stop 07/13/18 at 14:23; Status DC Sodium Chloride 500 ml @ 250 mls/hr 1X ONCE IV Last administered on at 08:42; Start 07/13/18 at 08:45; Stop 07/13/18 at 10:44; Status DC Piperacillin Sod/ Tazobactam Sod 3.375 gm/Sodium Chloride 50 ml @ 100 mls/hr 1X ONCE IV Last administered on 07/13/18at 08:54; Start 07/13/18 at 08:45; Stop 07/13/18 at 14:06; Status DC Vancomycin HCl 1.5 gm/Sodium Chloride 500 ml @ 250 mls/hr 1X ONCE IV Last administered on 07/13/18at 12:58; Start 07/13/18 at 09:00; Stop 07/13/18 at 10 :59; Status DC Piperacillin Sod/ Tazobactam Sod 3.375 gm/Sodium Chloride 50 ml @ 100 mls/hr Q6HRS IV Last administered on 07/13/18at 12:58; Start 07/13/18 at 13:00; Stop 07/13/18 at 14:06; Status DC Sodium Chloride (Normal Saline Flush) 3 ml QSHIFT PRN IV AFTER MEDS AND BLOOD DRAWS; Start 07/13/18 at 12:00 Lidocaine HCl 100 ml PRN 1X PRN MM MOUTH PAIN Last administered on 07/13/18at 12:03; Start 07/13/18 at 12:00; Stop 07/14/18 at 11:59; Status DC Lidocaine HCl (Lidocaine 1% 50ml Vial) 50 ml PRN 1X PRN INJ SEE COMMENTS Last administered on 07/13/18at 12:04; Start 07/13/18 at 12:00; Stop 07/14/18 at 11 :59; Status DC Ceftolozane/ Tazobactam 750 mg/ Sodium Chloride 100 ml @ 100 mls/hr Q8HRS IV Last administered on 07/15/18 06:03; Start 07/13/18 at 14:30 Cetirizine HCl (ZyrTEC) 10 mg DAILY PO Last administered on 07/15/18 09:00; Start 07/13/18 at 15:00 Fentanyl (Duragesic 50mcg/ Hr Patch) 1 patch Q3DAYS TD Last administered on 16:17; Start 07/13/18 at 15:00 Lactobacillus Rhamnosus (Culturelle) 1 cap BID PO Last administered on 09:14; Start 07/13/18 at 21:00 Metoclopramide HCl (Reglan) 5 mg QIDACHS PO Last administered on 07/15/18 09: 15; Start 07/13/18 at 16:30 Ondansetron HCl (Zofran Odt) 4 mg QIDPRN PRN PEG NAUSEA/VOMITING; Start at 14:15 Oxycodone/ Acetaminophen (Percocet 7.5/ 325) 1 tab QID PRN PO SEVERE PAIN; Start 07/13/18 at 14:15 Pantoprazole Sodium (Protonix) 40 mg BIDAC PO Last administered on 07/14/18 08:09; Start 07/13/18 at 16:30 Cyproheptadine HCl (Periactin) 4 mg TID PO Last administered on 07/15/18 09:14 ; Start 07/13/18 at 15:00 Donepezil HCl (Aricept) 5 mg DAILY PEG Last administered on 07/15/18 09:14; Start 07/13/18 at 15:00 Gabapentin (Neurontin) 300 mg TID PO Last administered on 07/15/18 09:14; Start 07/13/18 at 21:00 Lidocaine (Lidoderm) 1 patch DAILY TD Last administered on 07/15/18 09:14; Start 07/13/18 at 15:00 Acetaminophen (Tylenol) 650 mg PRN Q6HRS PRN PO FEVER Last administered on 07/15 09:14; Start 07/13/18 at 14:15 Ondansetron HCl (Zofran) 4 mg PRN Q6HRS PRN IV NAUSEA/VOMITING Last administered on 11/1/18at 03:48; Start 07/13/18 at 14:15 Morphine Sulfate (Morphine Sulfate) 2 mg PRN Q2HR PRN IV MODERATE TO SEVERE PAIN Last administered on 07/15/18at 06:03; Start 07/13/18 at 14:15 Tramadol HCl (Ultram) 50 mg PRN Q6HRS PRN PO MILD TO MODERATE PAIN; Start at 14:15 Docusate Sodium (Colace) 100 mg PRN DAILY PRN PO CONSTIPATION; Start 07/13/18 at 14:15 Albuterol/ Ipratropium (Duoneb) 3 ml RTQID NEB Last administered on 07/15/18at 12:11; Start 07/13/18 at 16:00 Albuterol Sulfate (Ventolin Neb Soln) 2.5 mg PRN Q2HR PRN NEB SHORTNESS OF BREATH; Start 07/13/18 at 14:15 Guaifenesin (Mucinex) 600 mg BID PO Last administered on 07/15/18at 09:14; Start 07/13/18 at 21:00 Heparin Sodium (Porcine) (Heparin Sodium) 5,000 unit Q8HRS SQ Last administered on 07/15/18at 06:05; Start 07/13/18 at 22:00 Vancomycin HCl 1 gm/Sodium Chloride 250 ml @ 250 mls/hr Q18H IV Last administered on 07/15/18at 00:35; Start 07/14/18 at 06:00 Vancomycin HCl (Vancomycin Trough Level) 1 each 1X ONCE MC ; Start 07/14/18 at 23:30; Stop 07/14/18 at 23:31; Status DC Vancomycin HCl (Vancomycin Trough Level) 1 each 1X ONCE MC ; Start 07/18/18 at 17:30; Stop 07/18/18 at 17:31 Dextrose (Dextrose 50%-Water Syringe) 25 gm STK-MED ONCE IV ; Start 07/15/18 at 06:41; Stop 07/15/18 at 06:42; Status DC Dextrose (Dextrose 50%-Water Syringe) 25 gm STK-MED ONCE IV ; Start 07/15/18 at 07:00; Stop 07/15/18 at 08:54; Status DC Active Scripts Active Zerbaxa 1-0.5 Gram Vial (Ceftolozane/Tazobactam) 1.5 Gm Vial 0.75 Gm IV Q8HRS 7 Days Atenolol-Chlorthal 50-25 Tb (Atenolol/Chlorthalidone) 1 Each Tablet 1 Tab PEG DAILY Gabapentin 300 Mg Capsule 300 Mg PO TID 30 Days Culturelle (Lactobacillus Rhamnosus Gg) 1 Each Cap.sprink 1 Cap PO BID 30 Days Reported Lidocaine 1 Each Adh..patch 1 Each TP DAILY Cetirizine Hcl 10 Mg Tablet 1 Tab PO DAILY Losartan Potassium 100 Mg Tablet 100 Mg PO DAILY Pantoprazole Sodium 40 Mg Tablet.dr 40 Mg PEG BID Donepezil Hcl 5 Mg Tablet 5 Mg PEG BID Reglan (Metoclopramide Hcl) 10 Mg Tablet 5 Mg PO QIDACHS Cyproheptadine Hcl 2 Mg/5 Ml Syrup 10 Ml PEG TID Percocet 7.5-325 Mg Tablet (Oxycodone/Acetaminophen) 1 Each Tablet 1 Tab PO QID PRN FENTANYL 50mcg/hr (Fentanyl) 1 Each Patch.td72 1 Patch TP Q3DAYS Ondansetron Odt (Ondansetron) 4 Mg Tab.rapdis 4 Mg PEG QIDPRN PRN Vitals/I & O Vital Sign - Last 24 Hours 07/14/18 07/14/18 07/14/18 07/14/18 13:31 16:00 20:00 20:00 Temp 98.4 98.4 Pulse 82 101 Resp 17 B/P (MAP) 144/67 (92) 133/65 (87) Pulse Ox 96 100 99 O2 Delivery tach shirld trach shield trach shield Trach Collar O2 Flow Rate 15.0 07/14/18 07/14/18 07/15/18 07/15/18 20:27 23:00 03:00 05:00 Temp 98.2 98.2 Pulse 93 96 Resp 19 20 B/P (MAP) 151/68 (95) 151/68 (95) Pulse Ox 100 98 98 O2 Delivery Tracheal Collar O2 Flow Rate 8.0 07/15/18 07/15/18 07/15/18 07/15/18 06:33 08:00 08:00 09:13 Temp 98.5 98.5 Pulse 84 Resp 16 18 B/P (MAP) 138/65 (89) Pulse Ox 98 100 99 O2 Delivery Trach Shield trach shield Trach Collar Tracheal Collar O2 Flow Rate 8.0 8.0 8.0 07/15/18 07/15/18 11:00 12:12 Temp 98.5 98.5 Pulse 85 Resp 17 B/P (MAP) 127/58 (81) Pulse Ox 100 99 O2 Delivery trach shield Tracheal Collar O2 Flow Rate 8.0 Intake and Output 07/14/18 07/14/18 07/15/18 15:00 23:00 07:00 Intake Total 200 ml 1000 ml Output Total 600 ml 1200 ml 750 ml Balance -400 ml -200 ml -750 ml Nutrition Consultation Dietary Evaluation: Recommendations by RD: Increase Calorie Intake Comments: REC TF per following: Jevity 1.5 bolus QID, 1 carton/237 ml per bolus, w/100 ml water flushes before and after each feeding Expected Outcomes/Goals: TF intake to meet >75% est needs Malnutrition Findings: Body Fat Depletion (Non Severe: Mild Depletion SAMMY WILEY III DO Jul 15, 2018 12:39
--- NOTE | 2018-07-15 13:01 | PDOC ---
PULMONARY PROGRESS NOTES Subjective fully awake Vitals Vital Signs Date Time Temp Pulse Resp B/P (MAP) Pulse Ox O2 Delivery O2 Flow Rate FiO2 07/15/18 12:12 99 Tracheal Collar 8.0 07/15/18 11:00 98.5 85 17 127/58 (81) 98.5 General: Alert, No acute distress HEENT: Other Lungs: Other (decrease bases) Cardiovascular: S1, S2 Abdomen: Soft, Non-tender Neuro Exam: Alert Extremities: No Edema Skin: Warm Labs Laboratory Tests Test 07/13/18 20:45 07/14/18 06:15 07/14/18 23:30 07/15/18 06:10 Influenza Type A Antigen Negative (NEGATIVE) Influenza Type B Antigen Negative (NEGATIVE) White Blood Count 11.5 x10^3/uL (4.0-11.0) Red Blood Count 3.89 x10^6/uL (3.50-5.40) Hemoglobin 9.7 g/dL (12.0-15.5) Hematocrit 31.2 % (36.0-47.0) Mean Corpuscular Volume 80 fL (79-100) Mean Corpuscular Hemoglobin 25 pg (25-35) Mean Corpuscular Hemoglobin Concent 31 g/dL (31-37) Red Cell Distribution Width 17.7 % (11.5-14.5) Platelet Count 349 x10^3/uL (140-400) Neutrophils (%) (Auto) 72 % (31-73) Lymphocytes (%) (Auto) 19 % (24-48) Monocytes (%) (Auto) 8 % (0-9) Eosinophils (%) (Auto) 2 % (0-3) Basophils (%) (Auto) 0 % (0-3) Neutrophils # (Auto) 8.3 x10^3uL (1.8-7.7) Lymphocytes # (Auto) 2.1 x10^3/uL (1.0-4.8) Monocytes # (Auto) 0.9 x10^3/uL (0.0-1.1) Eosinophils # (Auto) 0.2 x10^3/uL (0.0-0.7) Basophils # (Auto) 0.0 x10^3/uL (0.0-0.2) Sodium Level 141 mmol/L (136-145) Potassium Level 3.9 mmol/L (3.5-5.1) Chloride Level 102 mmol/L (98-107) Carbon Dioxide Level 35 mmol/L (21-32) Anion Gap 4 (6-14) Blood Urea Nitrogen 18 mg/dL (7-20) Creatinine 1.0 mg/dL (0.6-1.0) Estimated GFR (Cockcroft-Gault) 65.1 Glucose Level 96 mg/dL (70-99) Calcium Level 8.5 mg/dL (8.5-10.1) Vancomycin Level Trough 15.0 mcg/mL (10.0-20.0) Vancomycin Last Dose Date 07/14/18 Vancomycin Last Dose Time 0600 Glucose (Fingerstick) 57 mg/dL (70-99) Test 07/15/18 06:18 07/15/18 09:27 White Blood Count 10.7 x10^3/uL (4.0-11.0) Red Blood Count 3.96 x10^6/uL (3.50-5.40) Hemoglobin 9.9 g/dL (12.0-15.5) Hematocrit 31.9 % (36.0-47.0) Mean Corpuscular Volume 81 fL (79-100) Mean Corpuscular Hemoglobin 25 pg (25-35) Mean Corpuscular Hemoglobin Concent 31 g/dL (31-37) Red Cell Distribution Width 17.9 % (11.5-14.5) Platelet Count 361 x10^3/uL (140-400) Neutrophils (%) (Auto) 76 % (31-73) Lymphocytes (%) (Auto) 13 % (24-48) Monocytes (%) (Auto) 7 % (0-9) Eosinophils (%) (Auto) 4 % (0-3) Basophils (%) (Auto) 1 % (0-3) Neutrophils # (Auto) 8.1 x10^3uL (1.8-7.7) Lymphocytes # (Auto) 1.4 x10^3/uL (1.0-4.8) Monocytes # (Auto) 0.8 x10^3/uL (0.0-1.1) Eosinophils # (Auto) 0.4 x10^3/uL (0.0-0.7) Basophils # (Auto) 0.0 x10^3/uL (0.0-0.2) Sodium Level 142 mmol/L (136-145) Potassium Level 4.0 mmol/L (3.5-5.1) Chloride Level 104 mmol/L (98-107) Carbon Dioxide Level 33 mmol/L (21-32) Anion Gap 5 (6-14) Blood Urea Nitrogen 16 mg/dL (7-20) Creatinine 0.9 mg/dL (0.6-1.0) Estimated GFR (Cockcroft-Gault) 73.5 Glucose Level 60 mg/dL (70-99) Calcium Level 8.8 mg/dL (8.5-10.1) Glucose (Fingerstick) 88 mg/dL (70-99) Laboratory Tests Test 07/14/18 23:30 07/15/18 06:10 07/15/18 06:18 07/15/18 09:27 Vancomycin Level Trough 15.0 mcg/mL (10.0-20.0) Vancomycin Last Dose Date 07/14/18 Vancomycin Last Dose Time 0600 Glucose (Fingerstick) 57 mg/dL (70-99) 88 mg/dL (70-99) White Blood Count 10.7 x10^3/uL (4.0-11.0) Red Blood Count 3.96 x10^6/uL (3.50-5.40) Hemoglobin 9.9 g/dL (12.0-15.5) Hematocrit 31.9 % (36.0-47.0) Mean Corpuscular Volume 81 fL (79-100) Mean Corpuscular Hemoglobin 25 pg (25-35) Mean Corpuscular Hemoglobin Concent 31 g/dL (31-37) Red Cell Distribution Width 17.9 % (11.5-14.5) Platelet Count 361 x10^3/uL (140-400) Neutrophils (%) (Auto) 76 % (31-73) Lymphocytes (%) (Auto) 13 % (24-48) Monocytes (%) (Auto) 7 % (0-9) Eosinophils (%) (Auto) 4 % (0-3) Basophils (%) (Auto) 1 % (0-3) Neutrophils # (Auto) 8.1 x10^3uL (1.8-7.7) Lymphocytes # (Auto) 1.4 x10^3/uL (1.0-4.8) Monocytes # (Auto) 0.8 x10^3/uL (0.0-1.1) Eosinophils # (Auto) 0.4 x10^3/uL (0.0-0.7) Basophils # (Auto) 0.0 x10^3/uL (0.0-0.2) Sodium Level 142 mmol/L (136-145) Potassium Level 4.0 mmol/L (3.5-5.1) Chloride Level 104 mmol/L (98-107) Carbon Dioxide Level 33 mmol/L (21-32) Anion Gap 5 (6-14) Blood Urea Nitrogen 16 mg/dL (7-20) Creatinine 0.9 mg/dL (0.6-1.0) Estimated GFR (Cockcroft-Gault) 73.5 Glucose Level 60 mg/dL (70-99) Calcium Level 8.8 mg/dL (8.5-10.1) Medications Active Scripts Medications Dose Route/Sig Max Daily Dose Days Date Category Zerbaxa 1-0.5 Gram Vial (Ceftolozane/Tazobactam) 1.5 Gm Vial 0.75 Gm IV Q8HRS 7 06/19/18 Rx Atenolol-Chlorthal 50-25 Tb (Atenolol/Chlorthalidone) 1 Each Tablet 1 Tab PEG DAILY 06/15/18 Rx Lidocaine 1 Each Adh..patch 1 Each TP DAILY 06/14/18 Reported Cetirizine Hcl 10 Mg Tablet 1 Tab PO DAILY 06/14/18 Reported Losartan Potassium 100 Mg Tablet 100 Mg PO DAILY 06/14/18 Reported Gabapentin 300 Mg Capsule 300 Mg PO TID 30 02/18/18 Rx Culturelle (Lactobacillus Rhamnosus Gg) 1 Each Cap.sprink 1 Cap PO BID 30 07/07/17 Rx Pantoprazole Sodium 40 Mg Tablet.dr 40 Mg PEG BID 03/11/17 Reported Donepezil Hcl 5 Mg Tablet 5 Mg PEG BID 03/11/17 Reported Reglan (Metoclopramide Hcl) 10 Mg Tablet 5 Mg PO QIDACHS 03/11/17 Reported Cyproheptadine Hcl 2 Mg/5 Ml Syrup 10 Ml PEG TID 03/11/17 Reported Percocet 7.5-325 Mg Tablet (Oxycodone/Acetaminophen) 1 Each Tablet 1 Tab PO QID PRN 03/11/17 Reported FENTANYL 50mcg/hr (Fentanyl) 1 Each Patch.td72 1 Patch TP Q3DAYS 06/19/14 Reported Ondansetron Odt (Ondansetron) 4 Mg Tab.rapdis 4 Mg PEG QIDPRN PRN 06/19/14 Reported Impression . 1. Nivnl-py-xqobdds hypoxic and suspect hypercapnic respiratory failure secondary to recurrent pneumonia and mucus plugging. 2. Abnormal chest x-ray with bilateral infiltrates, more suggesting pneumonia. 3. History of lung cancer and laryngeal cancer, status post chemo and radiation, status post tracheostomy. She has ongoing left lower lobe mass-like consolidation, which is most likely a residual tumor on a previous CT. 4. Encephalopathy secondary to pneumonia and possible early sepsis.resolved 5. GPC bacteremia POA on 07/13 (1 of 2 bottles) Plan . 1. Continue with present trach collar . 2. s/p bronchoscopy. follow final cultures 3. empiric antibiotic 4. 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 5. Bronchodilators. 6. DVT prophylaxis. 7. Enteral nutrition. 8. Would recommend having a palliative care consult regarding discussion of goals of care as well as advanced directives. 9. Discussed with wire transfer clerk to floor MARY LANIER MD Jul 15, 2018 13:00
--- NOTE | 2018-07-15 13:58 | PDOC2 ---
PALLIATIVE CARE Palliative Care Note Palliative Care Patient alert. Met with patient and sister/DPOA Mark Reviewed medical condition. hypercapnic respiratory failure secondary to recurrent pneumonia and mucus plugging. History of lung cancer and laryngeal cancer, status post chemo and radiation, status post tracheostomy. GPC bacteremia POA on 07/13 (1 of 2 bottles) Patient and Mark adamant that they want to continue full code and full aggressive care. Patient is cared for at home by family. Discussed Code Status extensively; Patient and sister informed of the risks of CPR--fractured ribs, lung injury, and lack of oxygen to brain. "stated that they would make the decision at the time" Understands that healthcare providers will continue full code. Mark voiced concern about lack of care of if patient were made DNR. Support provided that same aggressive care could be provided up to the point of needing resuscitation. Plan; Continue current treatment plan Full Code Full Aggressive Care. WARREN MOODY Jul 15, 2018 13:58
[2018-07-15 15:00] VITALS: BP 147/64
[2018-07-15 19:00] VITALS: BP 169/91
[2018-07-15] MEDS: oxyCODONE/APAP 7.5/325 1 TAB TABLET PO PRN (21:24)
[2018-07-15 23:00] VITALS: BP 142/77
[2018-07-16 03:00] VITALS: BP 159/82
[2018-07-16] MEDS: ONDANSETRON PF 4 MG/2 ML VIAL. IV PRN ×3 (03:49→21:35)
[2018-07-16] MEDS: oxyCODONE/APAP 7.5/325 1 TAB TABLET PO PRN ×2 (03:49→21:36)
[2018-07-16] MEDS: TAZOBACTAM IV SCH ×3 (05:50→21:34)
[2018-07-16] MEDS: CEFTOLOZANE IV SCH ×3 (05:50→21:34)
[2018-07-16] MEDS: NORMAL SALINE IV SCH ×3 (05:50→21:34)
[2018-07-16] MEDS: HEPARIN for SUB-Q USE 5,000 UNIT/ML VIAL. SQ SCH ×3 (05:59→21:54)
[2018-07-16 06:23] LABS: BASO % 0 % (0-3); EOS # 0.2 x10^3/uL (0.0-0.7); EOS % 2 % (0-3); HEMATOCRIT 33.7 % (36.0-47.0); HEMOGLOBIN 10.6 g/dL (12.0-15.5); LYMPH # 1.7 x10^3/uL (1.0-4.8); LYMPH % 16 % (24-48); MEAN CORPUSCULAR HEMOGLOBIN 25 pg (25-35); MEAN CORPUSCULAR HGB CONC 31 g/dL (31-37); MEAN CORPUSCULAR VOLUME 79 fL (79-100); MONO # 0.6 x10^3/uL (0.0-1.1); MONO % 6 % (0-9); NEUT # 8.2 x10^3uL (1.8-7.7); NEUT % 77 % (31-73); PLATELET COUNT 388 x10^3/uL (140-400); RED BLOOD COUNT 4.26 x10^6/uL (3.50-5.40); RED CELL DISTRIBUTION WIDTH 17.9 % (11.5-14.5); WHITE BLOOD COUNT 10.8 x10^3/uL (4.0-11.0)
[2018-07-16 06:36] LABS: CALCIUM 9.3 mg/dL (8.5-10.1); CREATININE 0.9 mg/dL (0.6-1.0); GFR 73.5; POTASSIUM 3.8 mmol/L (3.5-5.1)
[2018-07-16 07:00] VITALS: BP 157/86
[2018-07-16] MEDS: IPRATRPIUM/ALBUTEROL 0.5/2.5MG 3 ML NEBU. NEB SCH ×4 (07:38→20:59)
[2018-07-16] MEDS: METOCLOPRAMIDE 10 MG TABLET. PO SCH ×4 (08:58→21:35)
[2018-07-16] MEDS: LACTOBACILLUS RHAMNOSUS GG 1 CAPSULE. PO SCH ×2 (08:58→21:35)
[2018-07-16] MEDS: CETIRIZINE HCL 10 MG TABLET. PO SCH (08:58)
[2018-07-16] MEDS: CYPROHEPTADINE 4 MG TABLET. PO SCH ×3 (08:58→21:35)
[2018-07-16] MEDS: PANTOPRAZOLE 40 MG TABLET.DR. PO SCH ×2 (08:58→17:55)
[2018-07-16] MEDS: LIDOCAINE (700MG/PATCH) PATCH. TD SCH (08:58)
[2018-07-16] MEDS: GABAPENTIN 300 MG CAPSULE. PO SCH ×3 (08:58→21:36)
[2018-07-16] MEDS: DONEPEZIL HCL 5 MG TABLET. PEG SCH (08:58)
[2018-07-16] MEDS: fentaNYL 50MCG/HR PATCH 1 PATCH PATCH.TD72 TD SCH (08:59)
[2018-07-16 11:00] VITALS: BP 167/88
--- NOTE | 2018-07-16 11:12 | PDOC ---
PULMONARY PROGRESS NOTES Subjective no soa some trach secretions Vitals Vital Signs Date Time Temp Pulse Resp B/P (MAP) Pulse Ox O2 Delivery O2 Flow Rate FiO2 07/16/18 08:59 20 95 Tracheal Collar 8.0 07/16/18 07:00 98.4 93 157/86 (109) 98.4 General: Alert, No acute distress HEENT: Other Lungs: Other (decrease bases) Cardiovascular: S1, S2 Abdomen: Soft, Non-tender Neuro Exam: Alert Extremities: No Edema Skin: Warm Labs Laboratory Tests Test 07/14/18 23:30 07/15/18 06:10 07/15/18 06:18 07/15/18 09:27 Vancomycin Level Trough 15.0 mcg/mL (10.0-20.0) Vancomycin Last Dose Date 07/14/18 Vancomycin Last Dose Time 0600 Glucose (Fingerstick) 57 mg/dL (70-99) 88 mg/dL (70-99) White Blood Count 10.7 x10^3/uL (4.0-11.0) Red Blood Count 3.96 x10^6/uL (3.50-5.40) Hemoglobin 9.9 g/dL (12.0-15.5) Hematocrit 31.9 % (36.0-47.0) Mean Corpuscular Volume 81 fL (79-100) Mean Corpuscular Hemoglobin 25 pg (25-35) Mean Corpuscular Hemoglobin Concent 31 g/dL (31-37) Red Cell Distribution Width 17.9 % (11.5-14.5) Platelet Count 361 x10^3/uL (140-400) Neutrophils (%) (Auto) 76 % (31-73) Lymphocytes (%) (Auto) 13 % (24-48) Monocytes (%) (Auto) 7 % (0-9) Eosinophils (%) (Auto) 4 % (0-3) Basophils (%) (Auto) 1 % (0-3) Neutrophils # (Auto) 8.1 x10^3uL (1.8-7.7) Lymphocytes # (Auto) 1.4 x10^3/uL (1.0-4.8) Monocytes # (Auto) 0.8 x10^3/uL (0.0-1.1) Eosinophils # (Auto) 0.4 x10^3/uL (0.0-0.7) Basophils # (Auto) 0.0 x10^3/uL (0.0-0.2) Sodium Level 142 mmol/L (136-145) Potassium Level 4.0 mmol/L (3.5-5.1) Chloride Level 104 mmol/L (98-107) Carbon Dioxide Level 33 mmol/L (21-32) Anion Gap 5 (6-14) Blood Urea Nitrogen 16 mg/dL (7-20) Creatinine 0.9 mg/dL (0.6-1.0) Estimated GFR (Cockcroft-Gault) 73.5 Glucose Level 60 mg/dL (70-99) Calcium Level 8.8 mg/dL (8.5-10.1) Test 07/16/18 00:47 07/16/18 05:30 07/16/18 07:14 07/16/18 07:28 Glucose (Fingerstick) 94 mg/dL (70-99) 98 mg/dL (70-99) 93 mg/dL (70-99) White Blood Count 10.8 x10^3/uL (4.0-11.0) Red Blood Count 4.26 x10^6/uL (3.50-5.40) Hemoglobin 10.6 g/dL (12.0-15.5) Hematocrit 33.7 % (36.0-47.0) Mean Corpuscular Volume 79 fL (79-100) Mean Corpuscular Hemoglobin 25 pg (25-35) Mean Corpuscular Hemoglobin Concent 31 g/dL (31-37) Red Cell Distribution Width 17.9 % (11.5-14.5) Platelet Count 388 x10^3/uL (140-400) Neutrophils (%) (Auto) 77 % (31-73) Lymphocytes (%) (Auto) 16 % (24-48) Monocytes (%) (Auto) 6 % (0-9) Eosinophils (%) (Auto) 2 % (0-3) Basophils (%) (Auto) 0 % (0-3) Neutrophils # (Auto) 8.2 x10^3uL (1.8-7.7) Lymphocytes # (Auto) 1.7 x10^3/uL (1.0-4.8) Monocytes # (Auto) 0.6 x10^3/uL (0.0-1.1) Eosinophils # (Auto) 0.2 x10^3/uL (0.0-0.7) Basophils # (Auto) 0.0 x10^3/uL (0.0-0.2) Sodium Level 140 mmol/L (136-145) Potassium Level 3.8 mmol/L (3.5-5.1) Chloride Level 102 mmol/L (98-107) Carbon Dioxide Level 33 mmol/L (21-32) Anion Gap 5 (6-14) Blood Urea Nitrogen 13 mg/dL (7-20) Creatinine 0.9 mg/dL (0.6-1.0) Estimated GFR (Cockcroft-Gault) 73.5 Glucose Level 93 mg/dL (70-99) Calcium Level 9.3 mg/dL (8.5-10.1) Laboratory Tests Test 07/16/18 00:47 07/16/18 05:30 07/16/18 07:14 07/16/18 07:28 Glucose (Fingerstick) 94 mg/dL (70-99) 98 mg/dL (70-99) 93 mg/dL (70-99) White Blood Count 10.8 x10^3/uL (4.0-11.0) Red Blood Count 4.26 x10^6/uL (3.50-5.40) Hemoglobin 10.6 g/dL (12.0-15.5) Hematocrit 33.7 % (36.0-47.0) Mean Corpuscular Volume 79 fL (79-100) Mean Corpuscular Hemoglobin 25 pg (25-35) Mean Corpuscular Hemoglobin Concent 31 g/dL (31-37) Red Cell Distribution Width 17.9 % (11.5-14.5) Platelet Count 388 x10^3/uL (140-400) Neutrophils (%) (Auto) 77 % (31-73) Lymphocytes (%) (Auto) 16 % (24-48) Monocytes (%) (Auto) 6 % (0-9) Eosinophils (%) (Auto) 2 % (0-3) Basophils (%) (Auto) 0 % (0-3) Neutrophils # (Auto) 8.2 x10^3uL (1.8-7.7) Lymphocytes # (Auto) 1.7 x10^3/uL (1.0-4.8) Monocytes # (Auto) 0.6 x10^3/uL (0.0-1.1) Eosinophils # (Auto) 0.2 x10^3/uL (0.0-0.7) Basophils # (Auto) 0.0 x10^3/uL (0.0-0.2) Sodium Level 140 mmol/L (136-145) Potassium Level 3.8 mmol/L (3.5-5.1) Chloride Level 102 mmol/L (98-107) Carbon Dioxide Level 33 mmol/L (21-32) Anion Gap 5 (6-14) Blood Urea Nitrogen 13 mg/dL (7-20) Creatinine 0.9 mg/dL (0.6-1.0) Estimated GFR (Cockcroft-Gault) 73.5 Glucose Level 93 mg/dL (70-99) Calcium Level 9.3 mg/dL (8.5-10.1) Medications Active Scripts Medications Dose Route/Sig Max Daily Dose Days Date Category Zerbaxa 1-0.5 Gram Vial (Ceftolozane/Tazobactam) 1.5 Gm Vial 0.75 Gm IV Q8HRS 7 06/19/18 Rx Atenolol-Chlorthal 50-25 Tb (Atenolol/Chlorthalidone) 1 Each Tablet 1 Tab PEG DAILY 06/15/18 Rx Lidocaine 1 Each Adh..patch 1 Each TP DAILY 06/14/18 Reported Cetirizine Hcl 10 Mg Tablet 1 Tab PO DAILY 06/14/18 Reported Losartan Potassium 100 Mg Tablet 100 Mg PO DAILY 06/14/18 Reported Gabapentin 300 Mg Capsule 300 Mg PO TID 30 02/18/18 Rx Culturelle (Lactobacillus Rhamnosus Gg) 1 Each Cap.sprink 1 Cap PO BID 30 07/07/17 Rx Pantoprazole Sodium 40 Mg Tablet.dr 40 Mg PEG BID 03/11/17 Reported Donepezil Hcl 5 Mg Tablet 5 Mg PEG BID 03/11/17 Reported Reglan (Metoclopramide Hcl) 10 Mg Tablet 5 Mg PO QIDACHS 03/11/17 Reported Cyproheptadine Hcl 2 Mg/5 Ml Syrup 10 Ml PEG TID 03/11/17 Reported Percocet 7.5-325 Mg Tablet (Oxycodone/Acetaminophen) 1 Each Tablet 1 Tab PO QID PRN 03/11/17 Reported FENTANYL 50mcg/hr (Fentanyl) 1 Each Patch.td72 1 Patch TP Q3DAYS 06/19/14 Reported Ondansetron Odt (Ondansetron) 4 Mg Tab.rapdis 4 Mg PEG QIDPRN PRN 06/19/14 Reported Impression . 1. Vnzae-lv-zlvcutl hypoxic/ hypercapnic respiratory failure secondary to recurrent pneumonia and mucus plugging. 2. Abnormal chest x-ray with bilateral infiltrates, more suggesting pneumonia. 3. History of lung cancer and laryngeal cancer, status post chemo and radiation, status post tracheostomy. She has ongoing left lower lobe mass-like consolidation, which is most likely a residual tumor on a previous CT. 4. Encephalopathy secondary to pneumonia and possible early sepsis.resolved 5. GPC bacteremia POA on 07/13 (1 of 2 bottles) Plan . 1. Continue with present trach collar . 2. s/p bronchoscopy. follow final cultures 3. empiric antibiotic 4. 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 5. Bronchodilators. 6. DVT prophylaxis. 7. Enteral nutrition. MARY LANIER MD Jul 16, 2018 11:12
--- NOTE | 2018-07-16 11:43 | PDOC ---
PROGRESS NOTES Chief Complaint Chief Complaint [id number] hypoxic and suspect hypercapnic respiratory failure secondary to recurrent pneumonia and mucus plugging, chronic trach Abnormal chest x-ray with bilateral infiltrates, more suggesting pneumonia. History of lung cancer and laryngeal cancer, status post chemo and radiation, status post tracheostomy. She has ongoing left lower lobe mass-like consolidation, which is most likely a residual tumor on a previous CT. 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 Mild dementia H/o HTN CKD stage 3 History of Present Illness History of Present Illness Pt seen and examined Laying in bed, chronic trach with trach shield, alert and cooperative Discussed with RN Vitals Vitals Vital Signs Date Time Temp Pulse Resp B/P (MAP) Pulse Ox O2 Delivery O2 Flow Rate FiO2 07/16/18 11:00 98.0 106 18 167/88 (114) 95 5L 98.0 07/16/18 08:59 8.0 Physical Exam Physical Exam GENERAL: Resting quietly, appears comfortable HEENT: Oral cavity pink, moist NECK: Trach to trach shield LUNGS: Improved aeration HEART: S1, S2, regular ABDOMEN: Soft, bowel sounds present, nontender. PEG tube intact. EXTREMITIES: No edema, no cyanosis. DERMATOLOGIC: Warm without generalized rash. NEUROLOGIC: Arouses to name, nods to questions, sleepy [place] - ok General: Alert, Cooperative, No acute distress Heart: Regular rate, Normal S1, Normal S2 Lungs: Crackles, Other (decrease bases) Abdomen: Soft, No tenderness Extremities: No clubbing, No cyanosis Skin: No rashes, No breakdown Labs LABS Laboratory Tests Test 07/16/18 00:47 07/16/18 05:30 07/16/18 07:14 07/16/18 07:28 Glucose (Fingerstick) 94 mg/dL (70-99) 98 mg/dL (70-99) 93 mg/dL (70-99) White Blood Count 10.8 x10^3/uL (4.0-11.0) Red Blood Count 4.26 x10^6/uL (3.50-5.40) Hemoglobin 10.6 g/dL (12.0-15.5) Hematocrit 33.7 % (36.0-47.0) Mean Corpuscular Volume 79 fL (79-100) Mean Corpuscular Hemoglobin 25 pg (25-35) Mean Corpuscular Hemoglobin Concent 31 g/dL (31-37) Red Cell Distribution Width 17.9 % (11.5-14.5) Platelet Count 388 x10^3/uL (140-400) Neutrophils (%) (Auto) 77 % (31-73) Lymphocytes (%) (Auto) 16 % (24-48) Monocytes (%) (Auto) 6 % (0-9) Eosinophils (%) (Auto) 2 % (0-3) Basophils (%) (Auto) 0 % (0-3) Neutrophils # (Auto) 8.2 x10^3uL (1.8-7.7) Lymphocytes # (Auto) 1.7 x10^3/uL (1.0-4.8) Monocytes # (Auto) 0.6 x10^3/uL (0.0-1.1) Eosinophils # (Auto) 0.2 x10^3/uL (0.0-0.7) Basophils # (Auto) 0.0 x10^3/uL (0.0-0.2) Sodium Level 140 mmol/L (136-145) Potassium Level 3.8 mmol/L (3.5-5.1) Chloride Level 102 mmol/L (98-107) Carbon Dioxide Level 33 mmol/L (21-32) Anion Gap 5 (6-14) Blood Urea Nitrogen 13 mg/dL (7-20) Creatinine 0.9 mg/dL (0.6-1.0) Estimated GFR (Cockcroft-Gault) 73.5 Glucose Level 93 mg/dL (70-99) Calcium Level 9.3 mg/dL (8.5-10.1) Comment Review of Relevant I have reviewed the following items miko (where applicable) has been applied. Labs Laboratory Tests Test 07/14/18 23:30 07/15/18 06:10 07/15/18 06:18 07/15/18 09:27 Vancomycin Level Trough 15.0 mcg/mL (10.0-20.0) Vancomycin Last Dose Date 07/14/18 Vancomycin Last Dose Time 0600 Glucose (Fingerstick) 57 mg/dL (70-99) 88 mg/dL (70-99) White Blood Count 10.7 x10^3/uL (4.0-11.0) Red Blood Count 3.96 x10^6/uL (3.50-5.40) Hemoglobin 9.9 g/dL (12.0-15.5) Hematocrit 31.9 % (36.0-47.0) Mean Corpuscular Volume 81 fL (79-100) Mean Corpuscular Hemoglobin 25 pg (25-35) Mean Corpuscular Hemoglobin Concent 31 g/dL (31-37) Red Cell Distribution Width 17.9 % (11.5-14.5) Platelet Count 361 x10^3/uL (140-400) Neutrophils (%) (Auto) 76 % (31-73) Lymphocytes (%) (Auto) 13 % (24-48) Monocytes (%) (Auto) 7 % (0-9) Eosinophils (%) (Auto) 4 % (0-3) Basophils (%) (Auto) 1 % (0-3) Neutrophils # (Auto) 8.1 x10^3uL (1.8-7.7) Lymphocytes # (Auto) 1.4 x10^3/uL (1.0-4.8) Monocytes # (Auto) 0.8 x10^3/uL (0.0-1.1) Eosinophils # (Auto) 0.4 x10^3/uL (0.0-0.7) Basophils # (Auto) 0.0 x10^3/uL (0.0-0.2) Sodium Level 142 mmol/L (136-145) Potassium Level 4.0 mmol/L (3.5-5.1) Chloride Level 104 mmol/L (98-107) Carbon Dioxide Level 33 mmol/L (21-32) Anion Gap 5 (6-14) Blood Urea Nitrogen 16 mg/dL (7-20) Creatinine 0.9 mg/dL (0.6-1.0) Estimated GFR (Cockcroft-Gault) 73.5 Glucose Level 60 mg/dL (70-99) Calcium Level 8.8 mg/dL (8.5-10.1) Test 07/16/18 00:47 07/16/18 05:30 07/16/18 07:14 07/16/18 07:28 Glucose (Fingerstick) 94 mg/dL (70-99) 98 mg/dL (70-99) 93 mg/dL (70-99) White Blood Count 10.8 x10^3/uL (4.0-11.0) Red Blood Count 4.26 x10^6/uL (3.50-5.40) Hemoglobin 10.6 g/dL (12.0-15.5) Hematocrit 33.7 % (36.0-47.0) Mean Corpuscular Volume 79 fL (79-100) Mean Corpuscular Hemoglobin 25 pg (25-35) Mean Corpuscular Hemoglobin Concent 31 g/dL (31-37) Red Cell Distribution Width 17.9 % (11.5-14.5) Platelet Count 388 x10^3/uL (140-400) Neutrophils (%) (Auto) 77 % (31-73) Lymphocytes (%) (Auto) 16 % (24-48) Monocytes (%) (Auto) 6 % (0-9) Eosinophils (%) (Auto) 2 % (0-3) Basophils (%) (Auto) 0 % (0-3) Neutrophils # (Auto) 8.2 x10^3uL (1.8-7.7) Lymphocytes # (Auto) 1.7 x10^3/uL (1.0-4.8) Monocytes # (Auto) 0.6 x10^3/uL (0.0-1.1) Eosinophils # (Auto) 0.2 x10^3/uL (0.0-0.7) Basophils # (Auto) 0.0 x10^3/uL (0.0-0.2) Sodium Level 140 mmol/L (136-145) Potassium Level 3.8 mmol/L (3.5-5.1) Chloride Level 102 mmol/L (98-107) Carbon Dioxide Level 33 mmol/L (21-32) Anion Gap 5 (6-14) Blood Urea Nitrogen 13 mg/dL (7-20) Creatinine 0.9 mg/dL (0.6-1.0) Estimated GFR (Cockcroft-Gault) 73.5 Glucose Level 93 mg/dL (70-99) Calcium Level 9.3 mg/dL (8.5-10.1) Laboratory Tests Test 11/2/18 00:47 07/16/18 05:30 07/16/18 07:14 07/16/18 07:28 Glucose (Fingerstick) 94 mg/dL (70-99) 98 mg/dL (70-99) 93 mg/dL (70-99) White Blood Count 10.8 x10^3/uL (4.0-11.0) Red Blood Count 4.26 x10^6/uL (3.50-5.40) Hemoglobin 10.6 g/dL (12.0-15.5) Hematocrit 33.7 % (36.0-47.0) Mean Corpuscular Volume 79 fL (79-100) Mean Corpuscular Hemoglobin 25 pg (25-35) Mean Corpuscular Hemoglobin Concent 31 g/dL (31-37) Red Cell Distribution Width 17.9 % (11.5-14.5) Platelet Count 388 x10^3/uL (140-400) Neutrophils (%) (Auto) 77 % (31-73) Lymphocytes (%) (Auto) 16 % (24-48) Monocytes (%) (Auto) 6 % (0-9) Eosinophils (%) (Auto) 2 % (0-3) Basophils (%) (Auto) 0 % (0-3) Neutrophils # (Auto) 8.2 x10^3uL (1.8-7.7) Lymphocytes # (Auto) 1.7 x10^3/uL (1.0-4.8) Monocytes # (Auto) 0.6 x10^3/uL (0.0-1.1) Eosinophils # (Auto) 0.2 x10^3/uL (0.0-0.7) Basophils # (Auto) 0.0 x10^3/uL (0.0-0.2) Sodium Level 140 mmol/L (136-145) Potassium Level 3.8 mmol/L (3.5-5.1) Chloride Level 102 mmol/L (98-107) Carbon Dioxide Level 33 mmol/L (21-32) Anion Gap 5 (6-14) Blood Urea Nitrogen 13 mg/dL (7-20) Creatinine 0.9 mg/dL (0.6-1.0) Estimated GFR (Cockcroft-Gault) 73.5 Glucose Level 93 mg/dL (70-99) Calcium Level 9.3 mg/dL (8.5-10.1) Microbiology 07/13/18 Blood Culture - Final, Complete 07/13/18 AFB Specimen Processing Tissue - Final, Resulted 07/13/18 Acid Fast Bacilli Culture, Resulted Pending 07/13/18 Gram Stain - Final, Resulted 07/13/18 Fungal Culture, Resulted Pending 07/13/18 Fungal Culture Result 1, Resulted Pending Medications Current Medications Albuterol/ Ipratropium (Duoneb) 3 ml 1X ONCE NEB Last administered on at 07:24; Start 07/13/18 at 07:00; Stop 07/13/18 at 07:01; Status DC Ondansetron HCl (Zofran) 4 mg PRN Q8HRS PRN IV NAUSEA/VOMITING; Start at 08:30; Stop 07/14/18 at 08:29; Status DC Vancomycin HCl (Vanco Per Pharmacy) 1 each PRN DAILY PRN MC SEE COMMENTS Last administered on 07/15/18at 09:40; Start 07/13/18 at 08:30 Piperacillin Sod/ Tazobactam Sod (Zosyn Per Pharmacy) 1 each PRN DAILY PRN MC SEE COMMENTS; Start 07/13/18 at 08:30; Stop 07/13/18 at 14:06; Status DC Levofloxacin/ Dextrose 150 ml @ 100 mls/hr 1X ONCE IV Last administered on at 09:51; Start 07/13/18 at 09:00; Stop 07/13/18 at 10:29; Status DC Albuterol Sulfate (Ventolin Neb Soln) 2.5 mg PRN Q3HRS PRN NEB SHORTNESS OF BREATH; Start 07/13/18 at 08:45; Stop 07/13/18 at 14:23; Status DC Sodium Chloride 500 ml @ 250 mls/hr 1X ONCE IV Last administered on at 08:42; Start 07/13/18 at 08:45; Stop 07/13/18 at 10:44; Status DC Piperacillin Sod/ Tazobactam Sod 3.375 gm/Sodium Chloride 50 ml @ 100 mls/hr 1X ONCE IV Last administered on 07/13/18at 08:54; Start 07/13/18 at 08:45; Stop 07/13/18 at 14:06; Status DC Vancomycin HCl 1.5 gm/Sodium Chloride 500 ml @ 250 mls/hr 1X ONCE IV Last administered on 07/13/18at 12:58; Start 07/13/18 at 09:00; Stop 07/13/18 at 10 :59; Status DC Piperacillin Sod/ Tazobactam Sod 3.375 gm/Sodium Chloride 50 ml @ 100 mls/hr Q6HRS IV Last administered on 07/13/18at 12:58; Start 07/13/18 at 13:00; Stop 07/13/18 at 14:06; Status DC Sodium Chloride (Normal Saline Flush) 3 ml QSHIFT PRN IV AFTER MEDS AND BLOOD DRAWS; Start 07/13/18 at 12:00 Lidocaine HCl 100 ml PRN 1X PRN MM MOUTH PAIN Last administered on 07/13/18at 12:03; Start 07/13/18 at 12:00; Stop 07/14/18 at 11:59; Status DC Lidocaine HCl (Lidocaine 1% 50ml Vial) 50 ml PRN 1X PRN INJ SEE COMMENTS Last administered on 07/13/18at 12:04; Start 07/13/18 at 12:00; Stop 07/14/18 at 11 :59; Status DC Ceftolozane/ Tazobactam 750 mg/ Sodium Chloride 100 ml @ 100 mls/hr Q8HRS IV Last administered on 07/16/18at 05:50; Start 07/13/18 at 14:30 Cetirizine HCl (ZyrTEC) 10 mg DAILY PO Last administered on 07/16/18at 08:58; Start 07/13/18 at 15:00 Fentanyl (Duragesic 50mcg/ Hr Patch) 1 patch Q3DAYS TD Last administered on 07/16/18at 08:59; Start 07/13/18 at 15:00 Lactobacillus Rhamnosus (Culturelle) 1 cap BID PO Last administered on at 08:58; Start 07/13/18 at 21:00 Metoclopramide HCl (Reglan) 5 mg QIDACHS PO Last administered on 07/16/18at 08: 58; Start 07/13/18 at 16:30 Ondansetron HCl (Zofran Odt) 4 mg QIDPRN PRN PEG NAUSEA/VOMITING; Start at 14:15 Oxycodone/ Acetaminophen (Percocet 7.5/ 325) 1 tab QID PRN PO SEVERE PAIN Last administered on 07/16/18 03:49; Start 07/13/18 at 14:15 Pantoprazole Sodium (Protonix) 40 mg BIDAC PO Last administered on 07/16/18 08 :58; Start 07/13/18 at 16:30 Cyproheptadine HCl (Periactin) 4 mg TID PO Last administered on 07/16/18 08:58 ; Start 07/13/18 at 15:00 Donepezil HCl (Aricept) 5 mg DAILY PEG Last administered on 07/16/18 08:58; Start 07/13/18 at 15:00 Gabapentin (Neurontin) 300 mg TID PO Last administered on 07/16/18 08:58; Start 07/13/18 at 21:00 Lidocaine (Lidoderm) 1 patch DAILY TD Last administered on 07/16/18 08:58; Start 07/13/18 at 15:00 Acetaminophen (Tylenol) 650 mg PRN Q6HRS PRN PO FEVER Last administered on 07/15at 09:14; Start 07/13/18 at 14:15 Ondansetron HCl (Zofran) 4 mg PRN Q6HRS PRN IV NAUSEA/VOMITING Last administered on 07/16/18at 10:11; Start 07/13/18 at 14:15 Morphine Sulfate (Morphine Sulfate) 2 mg PRN Q2HR PRN IV MODERATE TO SEVERE PAIN Last administered on 07/15/18at 06:03; Start 07/13/18 at 14:15 Tramadol HCl (Ultram) 50 mg PRN Q6HRS PRN PO MILD TO MODERATE PAIN; Start at 14:15 Docusate Sodium (Colace) 100 mg PRN DAILY PRN PO CONSTIPATION; Start 07/13/18 at 14:15 Albuterol/ Ipratropium (Duoneb) 3 ml RTQID NEB Last administered on 07/16/18at 07:38; Start 07/13/18 at 16:00 Albuterol Sulfate (Ventolin Neb Soln) 2.5 mg PRN Q2HR PRN NEB SHORTNESS OF BREATH; Start 07/13/18 at 14:15 Guaifenesin (Mucinex) 600 mg BID PO Last administered on 07/16/18at 08:58; Start 07/13/18 at 21:00 Heparin Sodium (Porcine) (Heparin Sodium) 5,000 unit Q8HRS SQ Last administered on 07/16/18at 05:59; Start 07/13/18 at 22:00 Vancomycin HCl 1 gm/Sodium Chloride 250 ml @ 250 mls/hr Q18H IV Last administered on 07/15/18at 21:15; Start 07/14/18 at 06:00 Vancomycin HCl (Vancomycin Trough Level) 1 each 1X ONCE MC ; Start 07/14/18 at 23:30; Stop 07/14/18 at 23:31; Status DC Vancomycin HCl (Vancomycin Trough Level) 1 each 1X ONCE MC ; Start 07/18/18 at 17:30; Stop 07/18/18 at 17:31 Dextrose (Dextrose 50%-Water Syringe) 25 gm STK-MED ONCE IV ; Start 07/15/18 at 06:41; Stop 07/15/18 at 06:42; Status DC Dextrose (Dextrose 50%-Water Syringe) 25 gm STK-MED ONCE IV ; Start 07/15/18 at 07:00; Stop 07/15/18 at 08:54; Status DC Active Scripts Active Zerbaxa 1-0.5 Gram Vial (Ceftolozane/Tazobactam) 1.5 Gm Vial 0.75 Gm IV Q8HRS 7 Days Atenolol-Chlorthal 50-25 Tb (Atenolol/Chlorthalidone) 1 Each Tablet 1 Tab PEG DAILY Gabapentin 300 Mg Capsule 300 Mg PO TID 30 Days Culturelle (Lactobacillus Rhamnosus Gg) 1 Each Cap.sprink 1 Cap PO BID 30 Days Reported Lidocaine 1 Each Adh..patch 1 Each TP DAILY Cetirizine Hcl 10 Mg Tablet 1 Tab PO DAILY Losartan Potassium 100 Mg Tablet 100 Mg PO DAILY Pantoprazole Sodium 40 Mg Tablet.dr 40 Mg PEG BID Donepezil Hcl 5 Mg Tablet 5 Mg PEG BID Reglan (Metoclopramide Hcl) 10 Mg Tablet 5 Mg PO QIDACHS Cyproheptadine Hcl 2 Mg/5 Ml Syrup 10 Ml PEG TID Percocet 7.5-325 Mg Tablet (Oxycodone/Acetaminophen) 1 Each Tablet 1 Tab PO QID PRN FENTANYL 50mcg/hr (Fentanyl) 1 Each Patch.td72 1 Patch TP Q3DAYS Ondansetron Odt (Ondansetron) 4 Mg Tab.rapdis 4 Mg PEG QIDPRN PRN Vitals/I & O Vital Sign - Last 24 Hours 07/15/18 07/15/18 07/15/18 07/15/18 12:12 15:00 15:42 19:00 Temp 98.6 98.6 Pulse 96 104 Resp 15 22 B/P (MAP) 147/64 (91) 169/91 (117) Pulse Ox 99 100 97 90 O2 Delivery Tracheal Collar trach shield Tracheal Collar O2 Flow Rate 8.0 8.0 07/15/18 07/15/18 07/15/18 07/15/18 19:54 20:30 21:24 23:00 Temp 98.1 98.1 Pulse 94 Resp 18 16 B/P (MAP) 142/77 (98) Pulse Ox 97 97 90 O2 Delivery Trach Collar Tracheal Collar O2 Flow Rate 8.0 8.0 8.0 07/16/18 07/16/18 07/16/18 07/16/18 03:00 03:49 05:21 07:00 Temp 99.1 98.4 99.1 98.4 Pulse 111 93 Resp 20 18 18 18 B/P (MAP) 159/82 (107) 157/86 (109) Pulse Ox 93 90 90 98 O2 Delivery 5L O2 Flow Rate 8.0 8.0 07/16/18 07/16/18 07/16/18 07:38 08:59 11:00 Temp 98.0 98.0 Pulse 106 Resp 20 18 B/P (MAP) 167/88 (114) Pulse Ox 95 95 95 O2 Delivery Tracheal Collar Tracheal Collar 5L O2 Flow Rate 8.0 8.0 Intake and Output 07/15/18 07/15/18 07/16/18 15:00 23:00 07:00 Intake Total 200 ml 550 ml 880 ml Output Total 1050 ml 150 ml 400 ml Balance -850 ml 400 ml 480 ml Nutrition Consultation Dietary Evaluation: Recommendations by RD: Increase Calorie Intake Comments: REC continue TF per following: Jevity 1.5 bolus QID, 1 carton/237 ml per bolus, w/100 ml water flushes before and after each feeding Expected Outcomes/Goals: TF intake to meet >75% est needs - goal ongoing Malnutrition Findings: Body Fat Depletion (Non Severe: Mild Depletion Weight Status: Appropriate CUONG SHIRLEY MD Jul 16, 2018 11:43
--- NOTE | 2018-07-16 12:09 | PDOC ---
Infectious Disease Note Subjective Subjective Transferred to floor Still not feeling feeling well, says tired and weak Breathing alright, no SOA/CP No fevers/chills/N/V/D ROS ROS per HPI otherwise neg Vital Sign Vital Signs Vital Signs Date Time Temp Pulse Resp B/P (MAP) Pulse Ox O2 Delivery O2 Flow Rate FiO2 07/16/18 11:55 Tracheal Collar 8.0 07/16/18 11:00 98.0 106 18 167/88 (114) 95 98.0 Physical Exam PHYSICAL EXAM GENERAL: Resting quietly, appears comfortable HEENT: Oral cavity pink, moist NECK: Trach to trach shield LUNGS: Improved aeration HEART: S1, S2, regular ABDOMEN: Soft, bowel sounds present, nontender. PEG tube intact. EXTREMITIES: No edema, no cyanosis. DERMATOLOGIC: Warm without generalized rash. NEUROLOGIC: Arouses to name, nods to questions, sleepy Port - ok Labs Lab Laboratory Tests Test 07/16/18 00:47 07/16/18 05:30 07/16/18 07:14 07/16/18 07:28 Glucose (Fingerstick) 94 mg/dL (70-99) 98 mg/dL (70-99) 93 mg/dL (70-99) White Blood Count 10.8 x10^3/uL (4.0-11.0) Red Blood Count 4.26 x10^6/uL (3.50-5.40) Hemoglobin 10.6 g/dL (12.0-15.5) Hematocrit 33.7 % (36.0-47.0) Mean Corpuscular Volume 79 fL (79-100) Mean Corpuscular Hemoglobin 25 pg (25-35) Mean Corpuscular Hemoglobin Concent 31 g/dL (31-37) Red Cell Distribution Width 17.9 % (11.5-14.5) Platelet Count 388 x10^3/uL (140-400) Neutrophils (%) (Auto) 77 % (31-73) Lymphocytes (%) (Auto) 16 % (24-48) Monocytes (%) (Auto) 6 % (0-9) Eosinophils (%) (Auto) 2 % (0-3) Basophils (%) (Auto) 0 % (0-3) Neutrophils # (Auto) 8.2 x10^3uL (1.8-7.7) Lymphocytes # (Auto) 1.7 x10^3/uL (1.0-4.8) Monocytes # (Auto) 0.6 x10^3/uL (0.0-1.1) Eosinophils # (Auto) 0.2 x10^3/uL (0.0-0.7) Basophils # (Auto) 0.0 x10^3/uL (0.0-0.2) Sodium Level 140 mmol/L (136-145) Potassium Level 3.8 mmol/L (3.5-5.1) Chloride Level 102 mmol/L (98-107) Carbon Dioxide Level 33 mmol/L (21-32) Anion Gap 5 (6-14) Blood Urea Nitrogen 13 mg/dL (7-20) Creatinine 0.9 mg/dL (0.6-1.0) Estimated GFR (Cockcroft-Gault) 73.5 Glucose Level 93 mg/dL (70-99) Calcium Level 9.3 mg/dL (8.5-10.1) Micro 07/13. BLOOD CULTURE Final GRAM POSITIVE COCCIIN CLUSTERS 1SET DRAWN, 1 OF 2 POSITIVE 07/13. bronch Routine respiratory jewell AFB CULTURE GRAM STAIN Final Negative Objective Assessment Acute on chronic resp failure s/p bronch 07/13. routine jewell GPC bacteremia POA on 07/13 (1 of 2 bottles) h/o MDR /CRE PSAE HCAP Leucocytosis - improved SANCHEZ - better Dysphagia, on tube feedings h/x lung and laryngeal ca h/o c. diff in 2017 h/o MRSA Encephalopathy likely multifactorial Plan Plan of Care cont Zerbaxa and vanc Trough 15.0 Probiotics monitor labs/renal functions closely s/p one dose of Levaquin 07/13 Awaiting GPC ID in blood Supportive care Attending Co-Sign Attending Co-Sign The patient was seen and interviewed as well as examined at the bedside. The chart was reviewed. The case was discussed. Agree with the plan of care. RAISA VILLAR APRN Jul 16, 2018 12:09 GWEN MCQUEEN MD Jul 16, 2018 15:37
[2018-07-16] MEDS: VANCOMYCIN 1 GM in IV NORMAL SALINE 250ML 250 ML IV SCH (12:40)
[2018-07-16 15:00] VITALS: BP 159/91
[2018-07-16] MEDS: VANCOMYCIN PER PHARMACY MC PRN (15:18)
[2018-07-16 19:00] VITALS: BP 147/88
[2018-07-16] MEDS ORDERED: IPRATRPIUM/ALBUTEROL 0.5/2.5MG 3 ML NEBU. NEB SCH (20:00)
[2018-07-16 22:49] VITALS: BP 129/75
[2018-07-17] VITALS (8 sets, daily range): BP systolic 136–166; BP diastolic 73–86
[2018-07-17] MEDS: ONDANSETRON PF 4 MG/2 ML VIAL. IV PRN ×3 (03:57→21:57)
[2018-07-17] MEDS: oxyCODONE/APAP 7.5/325 1 TAB TABLET PO PRN ×2 (03:57→18:50)
[2018-07-17] MEDS: VANCOMYCIN 1 GM in IV NORMAL SALINE 250ML 250 ML IV SCH (05:28)
[2018-07-17] MEDS: NORMAL SALINE IV SCH ×3 (06:18→21:59)
[2018-07-17] MEDS: TAZOBACTAM IV SCH ×3 (06:18→21:59)
[2018-07-17] MEDS: CEFTOLOZANE IV SCH ×3 (06:18→21:59)
[2018-07-17] MEDS: HEPARIN for SUB-Q USE 5,000 UNIT/ML VIAL. SQ SCH ×3 (06:25→22:19)
[2018-07-17 06:49] LABS: CALCIUM 9.1 mg/dL (8.5-10.1); CREATININE 0.9 mg/dL (0.6-1.0); GFR 73.5; POTASSIUM 3.8 mmol/L (3.5-5.1)
[2018-07-17 06:51] LABS: BASO % 1 % (0-3); EOS # 0.2 x10^3/uL (0.0-0.7); EOS % 3 % (0-3); HEMATOCRIT 34.5 % (36.0-47.0); HEMOGLOBIN 10.6 g/dL (12.0-15.5); LYMPH # 1.6 x10^3/uL (1.0-4.8); LYMPH % 25 % (24-48); MEAN CORPUSCULAR HEMOGLOBIN 25 pg (25-35); MEAN CORPUSCULAR HGB CONC 31 g/dL (31-37); MEAN CORPUSCULAR VOLUME 81 fL (79-100); MONO # 0.6 x10^3/uL (0.0-1.1); MONO % 9 % (0-9); NEUT # 4.1 x10^3uL (1.8-7.7); NEUT % 63 % (31-73); PLATELET COUNT 316 x10^3/uL (140-400); RED BLOOD COUNT 4.28 x10^6/uL (3.50-5.40); RED CELL DISTRIBUTION WIDTH 17.6 % (11.5-14.5); WHITE BLOOD COUNT 6.6 x10^3/uL (4.0-11.0)
[2018-07-17] MEDS: IPRATRPIUM/ALBUTEROL 0.5/2.5MG 3 ML NEBU. NEB SCH ×4 (07:26→19:19)
--- NOTE | 2018-07-17 08:29 | PDOC ---
PROGRESS NOTES Chief Complaint Chief Complaint Pbvut-sm-[id number] hypoxic and suspect hypercapnic respiratory failure secondary to recurrent pneumonia and mucus plugging, chronic trach Abnormal chest x-ray with bilateral infiltrates, more suggesting pneumonia. History of lung cancer and laryngeal cancer, status post chemo and radiation, status post tracheostomy. She has ongoing left lower lobe mass-like consolidation, which is most likely a residual tumor on a previous CT. 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 Mild dementia H/o HTN CKD stage 3 History of Present Illness History of Present Illness Pt seen and examined Laying in bed, chronic trach with trach shield, alert and cooperative Discussed with RN Vitals Vitals Vital Signs Date Time Temp Pulse Resp B/P (MAP) Pulse Ox O2 Delivery O2 Flow Rate FiO2 07/17/18 07:26 97 Tracheal Collar 8.0 07/17/18 05:12 18 07/17/18 03:00 97.8 81 136/86 (103) 97.8 Physical Exam Physical Exam GENERAL: Resting quietly, appears comfortable HEENT: Oral cavity pink, moist NECK: Trach to trach shield LUNGS: Improved aeration HEART: S1, S2, regular ABDOMEN: Soft, bowel sounds present, nontender. PEG tube intact. EXTREMITIES: No edema, no cyanosis. DERMATOLOGIC: Warm without generalized rash. NEUROLOGIC: Arouses to name, nods to questions, sleepy [place] - ok General: Alert, Cooperative, No acute distress Heart: Regular rate, Normal S1, Normal S2 Lungs: Crackles, Other (decrease bases) Abdomen: Soft, No tenderness Extremities: No clubbing, No cyanosis Skin: No rashes, No breakdown Labs LABS Laboratory Tests Test 07/16/18 12:59 07/16/18 23:57 07/17/18 05:00 07/17/18 05:55 Glucose (Fingerstick) 76 mg/dL (70-99) 81 mg/dL (70-99) 82 mg/dL (70-99) White Blood Count 6.6 x10^3/uL (4.0-11.0) Red Blood Count 4.28 x10^6/uL (3.50-5.40) Hemoglobin 10.6 g/dL (12.0-15.5) Hematocrit 34.5 % (36.0-47.0) Mean Corpuscular Volume 81 fL (79-100) Mean Corpuscular Hemoglobin 25 pg (25-35) Mean Corpuscular Hemoglobin Concent 31 g/dL (31-37) Red Cell Distribution Width 17.6 % (11.5-14.5) Platelet Count 316 x10^3/uL (140-400) Neutrophils (%) (Auto) 63 % (31-73) Lymphocytes (%) (Auto) 25 % (24-48) Monocytes (%) (Auto) 9 % (0-9) Eosinophils (%) (Auto) 3 % (0-3) Basophils (%) (Auto) 1 % (0-3) Neutrophils # (Auto) 4.1 x10^3uL (1.8-7.7) Lymphocytes # (Auto) 1.6 x10^3/uL (1.0-4.8) Monocytes # (Auto) 0.6 x10^3/uL (0.0-1.1) Eosinophils # (Auto) 0.2 x10^3/uL (0.0-0.7) Basophils # (Auto) 0.0 x10^3/uL (0.0-0.2) Sodium Level 139 mmol/L (136-145) Potassium Level 3.8 mmol/L (3.5-5.1) Chloride Level 101 mmol/L (98-107) Carbon Dioxide Level 28 mmol/L (21-32) Anion Gap 10 (6-14) Blood Urea Nitrogen 10 mg/dL (7-20) Creatinine 0.9 mg/dL (0.6-1.0) Estimated GFR (Cockcroft-Gault) 73.5 Glucose Level 105 mg/dL (70-99) Calcium Level 9.1 mg/dL (8.5-10.1) Comment Review of Relevant I have reviewed the following items miko (where applicable) has been applied. Labs Laboratory Tests Test 07/15/18 09:27 07/16/18 00:47 07/16/18 05:30 07/16/18 07:14 Glucose (Fingerstick) 88 mg/dL (70-99) 94 mg/dL (70-99) 98 mg/dL (70-99) White Blood Count 10.8 x10^3/uL (4.0-11.0) Red Blood Count 4.26 x10^6/uL (3.50-5.40) Hemoglobin 10.6 g/dL (12.0-15.5) Hematocrit 33.7 % (36.0-47.0) Mean Corpuscular Volume 79 fL (79-100) Mean Corpuscular Hemoglobin 25 pg (25-35) Mean Corpuscular Hemoglobin Concent 31 g/dL (31-37) Red Cell Distribution Width 17.9 % (11.5-14.5) Platelet Count 388 x10^3/uL (140-400) Neutrophils (%) (Auto) 77 % (31-73) Lymphocytes (%) (Auto) 16 % (24-48) Monocytes (%) (Auto) 6 % (0-9) Eosinophils (%) (Auto) 2 % (0-3) Basophils (%) (Auto) 0 % (0-3) Neutrophils # (Auto) 8.2 x10^3uL (1.8-7.7) Lymphocytes # (Auto) 1.7 x10^3/uL (1.0-4.8) Monocytes # (Auto) 0.6 x10^3/uL (0.0-1.1) Eosinophils # (Auto) 0.2 x10^3/uL (0.0-0.7) Basophils # (Auto) 0.0 x10^3/uL (0.0-0.2) Sodium Level 140 mmol/L (136-145) Potassium Level 3.8 mmol/L (3.5-5.1) Chloride Level 102 mmol/L (98-107) Carbon Dioxide Level 33 mmol/L (21-32) Anion Gap 5 (6-14) Blood Urea Nitrogen 13 mg/dL (7-20) Creatinine 0.9 mg/dL (0.6-1.0) Estimated GFR (Cockcroft-Gault) 73.5 Glucose Level 93 mg/dL (70-99) Calcium Level 9.3 mg/dL (8.5-10.1) Test 07/16/18 07:28 07/16/18 12:59 07/16/18 23:57 07/17/18 05:00 Glucose (Fingerstick) 93 mg/dL (70-99) 76 mg/dL (70-99) 81 mg/dL (70-99) White Blood Count 6.6 x10^3/uL (4.0-11.0) Red Blood Count 4.28 x10^6/uL (3.50-5.40) Hemoglobin 10.6 g/dL (12.0-15.5) Hematocrit 34.5 % (36.0-47.0) Mean Corpuscular Volume 81 fL (79-100) Mean Corpuscular Hemoglobin 25 pg (25-35) Mean Corpuscular Hemoglobin Concent 31 g/dL (31-37) Red Cell Distribution Width 17.6 % (11.5-14.5) Platelet Count 316 x10^3/uL (140-400) Neutrophils (%) (Auto) 63 % (31-73) Lymphocytes (%) (Auto) 25 % (24-48) Monocytes (%) (Auto) 9 % (0-9) Eosinophils (%) (Auto) 3 % (0-3) Basophils (%) (Auto) 1 % (0-3) Neutrophils # (Auto) 4.1 x10^3uL (1.8-7.7) Lymphocytes # (Auto) 1.6 x10^3/uL (1.0-4.8) Monocytes # (Auto) 0.6 x10^3/uL (0.0-1.1) Eosinophils # (Auto) 0.2 x10^3/uL (0.0-0.7) Basophils # (Auto) 0.0 x10^3/uL (0.0-0.2) Sodium Level 139 mmol/L (136-145) Potassium Level 3.8 mmol/L (3.5-5.1) Chloride Level 101 mmol/L (98-107) Carbon Dioxide Level 28 mmol/L (21-32) Anion Gap 10 (6-14) Blood Urea Nitrogen 10 mg/dL (7-20) Creatinine 0.9 mg/dL (0.6-1.0) Estimated GFR (Cockcroft-Gault) 73.5 Glucose Level 105 mg/dL (70-99) Calcium Level 9.1 mg/dL (8.5-10.1) Test 07/17/18 05:55 Glucose (Fingerstick) 82 mg/dL (70-99) Laboratory Tests Test 07/16/18 12:59 07/16/18 23:57 07/17/18 05:00 07/17/18 05:55 Glucose (Fingerstick) 76 mg/dL (70-99) 81 mg/dL (70-99) 82 mg/dL (70-99) White Blood Count 6.6 x10^3/uL (4.0-11.0) Red Blood Count 4.28 x10^6/uL (3.50-5.40) Hemoglobin 10.6 g/dL (12.0-15.5) Hematocrit 34.5 % (36.0-47.0) Mean Corpuscular Volume 81 fL (79-100) Mean Corpuscular Hemoglobin 25 pg (25-35) Mean Corpuscular Hemoglobin Concent 31 g/dL (31-37) Red Cell Distribution Width 17.6 % (11.5-14.5) Platelet Count 316 x10^3/uL (140-400) Neutrophils (%) (Auto) 63 % (31-73) Lymphocytes (%) (Auto) 25 % (24-48) Monocytes (%) (Auto) 9 % (0-9) Eosinophils (%) (Auto) 3 % (0-3) Basophils (%) (Auto) 1 % (0-3) Neutrophils # (Auto) 4.1 x10^3uL (1.8-7.7) Lymphocytes # (Auto) 1.6 x10^3/uL (1.0-4.8) Monocytes # (Auto) 0.6 x10^3/uL (0.0-1.1) Eosinophils # (Auto) 0.2 x10^3/uL (0.0-0.7) Basophils # (Auto) 0.0 x10^3/uL (0.0-0.2) Sodium Level 139 mmol/L (136-145) Potassium Level 3.8 mmol/L (3.5-5.1) Chloride Level 101 mmol/L (98-107) Carbon Dioxide Level 28 mmol/L (21-32) Anion Gap 10 (6-14) Blood Urea Nitrogen 10 mg/dL (7-20) Creatinine 0.9 mg/dL (0.6-1.0) Estimated GFR (Cockcroft-Gault) 73.5 Glucose Level 105 mg/dL (70-99) Calcium Level 9.1 mg/dL (8.5-10.1) Microbiology 07/13/18 Blood Culture - Preliminary, Resulted 07/13/18 Blood Culture Result 1 (VANITA) - Preliminary, Resulted 07/13/18 AFB Specimen Processing Tissue - Final, Resulted 07/13/18 Acid Fast Bacilli Culture, Resulted Pending 07/13/18 Gram Stain - Final, Resulted 07/13/18 Fungal Culture, Resulted Pending 07/13/18 Fungal Culture Result 1, Resulted Pending Medications Current Medications Albuterol/ Ipratropium (Duoneb) 3 ml 1X ONCE NEB Last administered on at 07:24; Start 07/13/18 at 07:00; Stop 07/13/18 at 07:01; Status DC Ondansetron HCl (Zofran) 4 mg PRN Q8HRS PRN IV NAUSEA/VOMITING; Start at 08:30; Stop 07/14/18 at 08:29; Status DC Vancomycin HCl (Vanco Per Pharmacy) 1 each PRN DAILY PRN MC SEE COMMENTS Last administered on 07/16/18at 15:18; Start 07/13/18 at 08:30 Piperacillin Sod/ Tazobactam Sod (Zosyn Per Pharmacy) 1 each PRN DAILY PRN MC SEE COMMENTS; Start 07/13/18 at 08:30; Stop 07/13/18 at 14:06; Status DC Levofloxacin/ Dextrose 150 ml @ 100 mls/hr 1X ONCE IV Last administered on at 09:51; Start 07/13/18 at 09:00; Stop 07/13/18 at 10:29; Status DC Albuterol Sulfate (Ventolin Neb Soln) 2.5 mg PRN Q3HRS PRN NEB SHORTNESS OF BREATH; Start 07/13/18 at 08:45; Stop 07/13/18 at 14:23; Status DC Sodium Chloride 500 ml @ 250 mls/hr 1X ONCE IV Last administered on at 08:42; Start 07/13/18 at 08:45; Stop 07/13/18 at 10:44; Status DC Piperacillin Sod/ Tazobactam Sod 3.375 gm/Sodium Chloride 50 ml @ 100 mls/hr 1X ONCE IV Last administered on 07/13/18at 08:54; Start 07/13/18 at 08:45; Stop 07/13/18 at 14:06; Status DC Vancomycin HCl 1.5 gm/Sodium Chloride 500 ml @ 250 mls/hr 1X ONCE IV Last administered on 07/13/18at 12:58; Start 07/13/18 at 09:00; Stop 07/13/18 at 10 :59; Status DC Piperacillin Sod/ Tazobactam Sod 3.375 gm/Sodium Chloride 50 ml @ 100 mls/hr Q6HRS IV Last administered on 07/13/18at 12:58; Start 07/13/18 at 13:00; Stop 07/13/18 at 14:06; Status DC Sodium Chloride (Normal Saline Flush) 3 ml QSHIFT PRN IV AFTER MEDS AND BLOOD DRAWS; Start 07/13/18 at 12:00 Lidocaine HCl 100 ml PRN 1X PRN MM MOUTH PAIN Last administered on 07/13/18at 12:03; Start 07/13/18 at 12:00; Stop 07/14/18 at 11:59; Status DC Lidocaine HCl (Lidocaine 1% 50ml Vial) 50 ml PRN 1X PRN INJ SEE COMMENTS Last administered on 07/13/18at 12:04; Start 07/13/18 at 12:00; Stop 07/14/18 at 11 :59; Status DC Ceftolozane/ Tazobactam 750 mg/ Sodium Chloride 100 ml @ 100 mls/hr Q8HRS IV Last administered on 07/17/18at 06:18; Start 07/13/18 at 14:30 Cetirizine HCl (ZyrTEC) 10 mg DAILY PO Last administered on 07/16/18at 08:58; Start 07/13/18 at 15:00 Fentanyl (Duragesic 50mcg/ Hr Patch) 1 patch Q3DAYS TD Last administered on 07/16/18at 08:59; Start 07/13/18 at 15:00 Lactobacillus Rhamnosus (Culturelle) 1 cap BID PO Last administered on at 21:35; Start 07/13/18 at 21:00 Metoclopramide HCl (Reglan) 5 mg QIDACHS PO Last administered on 07/16/18at 21: 35; Start 07/13/18 at 16:30 Ondansetron HCl (Zofran Odt) 4 mg QIDPRN PRN PEG NAUSEA/VOMITING; Start at 14:15 Oxycodone/ Acetaminophen (Percocet 7.5/ 325) 1 tab QID PRN PO SEVERE PAIN Last administered on 07/17/18 03:57; Start 07/13/18 at 14:15 Pantoprazole Sodium (Protonix) 40 mg BIDAC PO Last administered on 07/16/18 17 :55; Start 07/13/18 at 16:30 Cyproheptadine HCl (Periactin) 4 mg TID PO Last administered on 07/16/18 21:35 ; Start 07/13/18 at 15:00 Donepezil HCl (Aricept) 5 mg DAILY PEG Last administered on 07/16/18 08:58; Start 07/13/18 at 15:00 Gabapentin (Neurontin) 300 mg TID PO Last administered on 07/16/18 21:36; Start 07/13/18 at 21:00 Lidocaine (Lidoderm) 1 patch DAILY TD Last administered on 07/16/18 08:58; Start 07/13/18 at 15:00 Acetaminophen (Tylenol) 650 mg PRN Q6HRS PRN PO FEVER Last administered on 07/15at 09:14; Start 07/13/18 at 14:15 Ondansetron HCl (Zofran) 4 mg PRN Q6HRS PRN IV NAUSEA/VOMITING Last administered on 07/17/18 03:57; Start 07/13/18 at 14:15 Morphine Sulfate (Morphine Sulfate) 2 mg PRN Q2HR PRN IV MODERATE TO SEVERE PAIN Last administered on 07/15/18at 06:03; Start 07/13/18 at 14:15 Tramadol HCl (Ultram) 50 mg PRN Q6HRS PRN PO MILD TO MODERATE PAIN; Start at 14:15 Docusate Sodium (Colace) 100 mg PRN DAILY PRN PO CONSTIPATION; Start 07/13/18 at 14:15 Albuterol/ Ipratropium (Duoneb) 3 ml RTQID NEB Last administered on 07/17/18at 07:26; Start 07/13/18 at 16:00 Albuterol Sulfate (Ventolin Neb Soln) 2.5 mg PRN Q2HR PRN NEB SHORTNESS OF BREATH; Start 07/13/18 at 14:15 Guaifenesin (Mucinex) 600 mg BID PO Last administered on 07/16/18at 21:36; Start 07/13/18 at 21:00 Heparin Sodium (Porcine) (Heparin Sodium) 5,000 unit Q8HRS SQ Last administered on 07/17/18at 06:25; Start 07/13/18 at 22:00 Vancomycin HCl 1 gm/Sodium Chloride 250 ml @ 250 mls/hr Q18H IV Last administered on 07/17/18at 05:28; Start 07/14/18 at 06:00 Vancomycin HCl (Vancomycin Trough Level) 1 each 1X ONCE MC ; Start 07/14/18 at 23:30; Stop 07/14/18 at 23:31; Status DC Vancomycin HCl (Vancomycin Trough Level) 1 each 1X ONCE MC ; Start 07/18/18 at 17:30; Stop 07/18/18 at 17:31 Dextrose (Dextrose 50%-Water Syringe) 25 gm STK-MED ONCE IV ; Start 07/15/18 at 06:41; Stop 07/15/18 at 06:42; Status DC Dextrose (Dextrose 50%-Water Syringe) 25 gm STK-MED ONCE IV ; Start 07/15/18 at 07:00; Stop 07/15/18 at 08:54; Status DC Albuterol/ Ipratropium (Duoneb) 3 ml RTQID NEB ; Start 07/16/18 at 20:00; Status UNV Active Scripts Active Zerbaxa 1-0.5 Gram Vial (Ceftolozane/Tazobactam) 1.5 Gm Vial 0.75 Gm IV Q8HRS 7 Days Atenolol-Chlorthal 50-25 Tb (Atenolol/Chlorthalidone) 1 Each Tablet 1 Tab PEG DAILY Gabapentin 300 Mg Capsule 300 Mg PO TID 30 Days Culturelle (Lactobacillus Rhamnosus Gg) 1 Each Cap.sprink 1 Cap PO BID 30 Days Reported Lidocaine 1 Each Adh..patch 1 Each TP DAILY Cetirizine Hcl 10 Mg Tablet 1 Tab PO DAILY Losartan Potassium 100 Mg Tablet 100 Mg PO DAILY Pantoprazole Sodium 40 Mg Tablet.dr 40 Mg PEG BID Donepezil Hcl 5 Mg Tablet 5 Mg PEG BID Reglan (Metoclopramide Hcl) 10 Mg Tablet 5 Mg PO QIDACHS Cyproheptadine Hcl 2 Mg/5 Ml Syrup 10 Ml PEG TID Percocet 7.5-325 Mg Tablet (Oxycodone/Acetaminophen) 1 Each Tablet 1 Tab PO QID PRN FENTANYL 50mcg/hr (Fentanyl) 1 Each Patch.td72 1 Patch TP Q3DAYS Ondansetron Odt (Ondansetron) 4 Mg Tab.rapdis 4 Mg PEG QIDPRN PRN Vitals/I & O Vital Sign - Last 24 Hours 07/16/18 07/16/18 07/16/18 07/16/18 08:59 11:00 11:55 13:00 Temp 98.0 98.0 Pulse 106 Resp 20 18 B/P (MAP) 167/88 (114) Pulse Ox 95 95 95 O2 Delivery Tracheal Collar 5L Tracheal Collar O2 Flow Rate 8.0 8.0 8.0 07/16/18 07/16/18 07/16/18 07/16/18 15:00 16:22 19:00 20:06 Temp 98.4 98.2 98.4 98.2 Pulse 96 93 Resp 18 19 B/P (MAP) 159/91 (113) 147/88 (107) Pulse Ox 98 92 O2 Delivery 5L Tracheal Collar Tracheal Collar Trach Collar O2 Flow Rate 8.0 5.0 8.0 07/16/18 07/16/18 07/16/18 07/17/18 21:04 21:36 22:49 03:00 Temp 97.7 97.8 97.7 97.8 Pulse 83 81 Resp 18 16 14 B/P (MAP) 129/75 (93) 136/86 (103) Pulse Ox 99 99 100 96 O2 Delivery Tracheal Collar Tracheal Collar Room Air O2 Flow Rate 8.0 8.0 5.0 07/17/18 07/17/18 07/17/18 03:57 05:12 07:26 Resp 18 18 Pulse Ox 96 96 97 O2 Delivery Tracheal Collar Tracheal Collar O2 Flow Rate 5.0 5.0 8.0 Intake and Output 07/16/18 07/16/18 07/17/18 15:00 23:00 07:00 Intake Total 100 ml 250 ml Balance 100 ml 250 ml Nutrition Consultation Dietary Evaluation: Recommendations by RD: Increase Calorie Intake Comments: REC continue TF per following: Jevity 1.5 bolus QID, 1 carton/237 ml per bolus, w/100 ml water flushes before and after each feeding Expected Outcomes/Goals: TF intake to meet >75% est needs - goal ongoing Malnutrition Findings: Body Fat Depletion (Non Severe: Mild Depletion Weight Status: Appropriate CUONG SHIRLEY MD Jul 17, 2018 08:29
--- NOTE | 2018-07-17 09:23 | PDOC ---
PULMONARY PROGRESS NOTES Subjective no soa some trach secretions Vitals Vital Signs Date Time Temp Pulse Resp B/P (MAP) Pulse Ox O2 Delivery O2 Flow Rate FiO2 07/17/18 07:26 97 Tracheal Collar 8.0 07/17/18 07:00 98.0 77 18 160/77 (104) 98.0 General: Alert, No acute distress HEENT: Other Lungs: Crackles, Other (decrease bases) Cardiovascular: S1, S2 Abdomen: Soft, Non-tender Neuro Exam: Alert Extremities: No Edema Skin: Warm Labs Laboratory Tests Test 07/15/18 09:27 07/16/18 00:47 07/16/18 05:30 07/16/18 07:14 Glucose (Fingerstick) 88 mg/dL (70-99) 94 mg/dL (70-99) 98 mg/dL (70-99) White Blood Count 10.8 x10^3/uL (4.0-11.0) Red Blood Count 4.26 x10^6/uL (3.50-5.40) Hemoglobin 10.6 g/dL (12.0-15.5) Hematocrit 33.7 % (36.0-47.0) Mean Corpuscular Volume 79 fL (79-100) Mean Corpuscular Hemoglobin 25 pg (25-35) Mean Corpuscular Hemoglobin Concent 31 g/dL (31-37) Red Cell Distribution Width 17.9 % (11.5-14.5) Platelet Count 388 x10^3/uL (140-400) Neutrophils (%) (Auto) 77 % (31-73) Lymphocytes (%) (Auto) 16 % (24-48) Monocytes (%) (Auto) 6 % (0-9) Eosinophils (%) (Auto) 2 % (0-3) Basophils (%) (Auto) 0 % (0-3) Neutrophils # (Auto) 8.2 x10^3uL (1.8-7.7) Lymphocytes # (Auto) 1.7 x10^3/uL (1.0-4.8) Monocytes # (Auto) 0.6 x10^3/uL (0.0-1.1) Eosinophils # (Auto) 0.2 x10^3/uL (0.0-0.7) Basophils # (Auto) 0.0 x10^3/uL (0.0-0.2) Sodium Level 140 mmol/L (136-145) Potassium Level 3.8 mmol/L (3.5-5.1) Chloride Level 102 mmol/L (98-107) Carbon Dioxide Level 33 mmol/L (21-32) Anion Gap 5 (6-14) Blood Urea Nitrogen 13 mg/dL (7-20) Creatinine 0.9 mg/dL (0.6-1.0) Estimated GFR (Cockcroft-Gault) 73.5 Glucose Level 93 mg/dL (70-99) Calcium Level 9.3 mg/dL (8.5-10.1) Test 07/16/18 07:28 07/16/18 12:59 07/16/18 23:57 07/17/18 05:00 Glucose (Fingerstick) 93 mg/dL (70-99) 76 mg/dL (70-99) 81 mg/dL (70-99) White Blood Count 6.6 x10^3/uL (4.0-11.0) Red Blood Count 4.28 x10^6/uL (3.50-5.40) Hemoglobin 10.6 g/dL (12.0-15.5) Hematocrit 34.5 % (36.0-47.0) Mean Corpuscular Volume 81 fL (79-100) Mean Corpuscular Hemoglobin 25 pg (25-35) Mean Corpuscular Hemoglobin Concent 31 g/dL (31-37) Red Cell Distribution Width 17.6 % (11.5-14.5) Platelet Count 316 x10^3/uL (140-400) Neutrophils (%) (Auto) 63 % (31-73) Lymphocytes (%) (Auto) 25 % (24-48) Monocytes (%) (Auto) 9 % (0-9) Eosinophils (%) (Auto) 3 % (0-3) Basophils (%) (Auto) 1 % (0-3) Neutrophils # (Auto) 4.1 x10^3uL (1.8-7.7) Lymphocytes # (Auto) 1.6 x10^3/uL (1.0-4.8) Monocytes # (Auto) 0.6 x10^3/uL (0.0-1.1) Eosinophils # (Auto) 0.2 x10^3/uL (0.0-0.7) Basophils # (Auto) 0.0 x10^3/uL (0.0-0.2) Sodium Level 139 mmol/L (136-145) Potassium Level 3.8 mmol/L (3.5-5.1) Chloride Level 101 mmol/L (98-107) Carbon Dioxide Level 28 mmol/L (21-32) Anion Gap 10 (6-14) Blood Urea Nitrogen 10 mg/dL (7-20) Creatinine 0.9 mg/dL (0.6-1.0) Estimated GFR (Cockcroft-Gault) 73.5 Glucose Level 105 mg/dL (70-99) Calcium Level 9.1 mg/dL (8.5-10.1) Test 07/17/18 05:55 Glucose (Fingerstick) 82 mg/dL (70-99) Laboratory Tests Test 07/16/18 12:59 07/16/18 23:57 07/17/18 05:00 07/17/18 05:55 Glucose (Fingerstick) 76 mg/dL (70-99) 81 mg/dL (70-99) 82 mg/dL (70-99) White Blood Count 6.6 x10^3/uL (4.0-11.0) Red Blood Count 4.28 x10^6/uL (3.50-5.40) Hemoglobin 10.6 g/dL (12.0-15.5) Hematocrit 34.5 % (36.0-47.0) Mean Corpuscular Volume 81 fL (79-100) Mean Corpuscular Hemoglobin 25 pg (25-35) Mean Corpuscular Hemoglobin Concent 31 g/dL (31-37) Red Cell Distribution Width 17.6 % (11.5-14.5) Platelet Count 316 x10^3/uL (140-400) Neutrophils (%) (Auto) 63 % (31-73) Lymphocytes (%) (Auto) 25 % (24-48) Monocytes (%) (Auto) 9 % (0-9) Eosinophils (%) (Auto) 3 % (0-3) Basophils (%) (Auto) 1 % (0-3) Neutrophils # (Auto) 4.1 x10^3uL (1.8-7.7) Lymphocytes # (Auto) 1.6 x10^3/uL (1.0-4.8) Monocytes # (Auto) 0.6 x10^3/uL (0.0-1.1) Eosinophils # (Auto) 0.2 x10^3/uL (0.0-0.7) Basophils # (Auto) 0.0 x10^3/uL (0.0-0.2) Sodium Level 139 mmol/L (136-145) Potassium Level 3.8 mmol/L (3.5-5.1) Chloride Level 101 mmol/L (98-107) Carbon Dioxide Level 28 mmol/L (21-32) Anion Gap 10 (6-14) Blood Urea Nitrogen 10 mg/dL (7-20) Creatinine 0.9 mg/dL (0.6-1.0) Estimated GFR (Cockcroft-Gault) 73.5 Glucose Level 105 mg/dL (70-99) Calcium Level 9.1 mg/dL (8.5-10.1) Medications Active Scripts Medications Dose Route/Sig Max Daily Dose Days Date Category Zerbaxa 1-0.5 Gram Vial (Ceftolozane/Tazobactam) 1.5 Gm Vial 0.75 Gm IV Q8HRS 7 06/19/18 Rx Atenolol-Chlorthal 50-25 Tb (Atenolol/Chlorthalidone) 1 Each Tablet 1 Tab PEG DAILY 06/15/18 Rx Lidocaine 1 Each Adh..patch 1 Each TP DAILY 06/14/18 Reported Cetirizine Hcl 10 Mg Tablet 1 Tab PO DAILY 06/14/18 Reported Losartan Potassium 100 Mg Tablet 100 Mg PO DAILY 06/14/18 Reported Gabapentin 300 Mg Capsule 300 Mg PO TID 30 02/18/18 Rx Culturelle (Lactobacillus Rhamnosus Gg) 1 Each Cap.sprink 1 Cap PO BID 30 07/07/17 Rx Pantoprazole Sodium 40 Mg Tablet.dr 40 Mg PEG BID 03/11/17 Reported Donepezil Hcl 5 Mg Tablet 5 Mg PEG BID 03/11/17 Reported Reglan (Metoclopramide Hcl) 10 Mg Tablet 5 Mg PO QIDACHS 03/11/17 Reported Cyproheptadine Hcl 2 Mg/5 Ml Syrup 10 Ml PEG TID 03/11/17 Reported Percocet 7.5-325 Mg Tablet (Oxycodone/Acetaminophen) 1 Each Tablet 1 Tab PO QID PRN 03/11/17 Reported FENTANYL 50mcg/hr (Fentanyl) 1 Each Patch.td72 1 Patch TP Q3DAYS 06/19/14 Reported Ondansetron Odt (Ondansetron) 4 Mg Tab.rapdis 4 Mg PEG QIDPRN PRN 06/19/14 Reported Impression . 1. Sfrho-ow-wstawim hypoxic/ hypercapnic respiratory failure secondary to recurrent pneumonia and mucus plugging. 2. Abnormal chest x-ray with bilateral infiltrates, more suggesting pneumonia. 3. History of lung cancer and laryngeal cancer, status post chemo and radiation, status post tracheostomy. She has ongoing left lower lobe mass-like consolidation, which is most likely a residual tumor on a previous CT. 4. Encephalopathy secondary to pneumonia and possible early sepsis.resolved 5. GPC bacteremia POA on 07/13 (1 of 2 bottles) , staph coag neg Plan . 1. Continue with present trach collar . 2. s/p bronchoscopy. No growth on final cultures 3. empiric antibiotic 4. Infectious Disease following 5. Bronchodilators. 6. DVT prophylaxis. 7. Enteral nutrition. MARY LANIER MD Jul 17, 2018 09:23
[2018-07-17] MEDS: LACTOBACILLUS RHAMNOSUS GG 1 CAPSULE. PO SCH ×2 (10:40→21:58)
[2018-07-17] MEDS: METOCLOPRAMIDE 10 MG TABLET. PO SCH ×4 (10:40→21:58)
[2018-07-17] MEDS: CYPROHEPTADINE 4 MG TABLET. PO SCH ×3 (10:41→21:58)
[2018-07-17] MEDS: GABAPENTIN 300 MG CAPSULE. PO SCH ×3 (10:41→21:58)
[2018-07-17] MEDS: DONEPEZIL HCL 5 MG TABLET. PEG SCH (10:41)
[2018-07-17] MEDS: PANTOPRAZOLE 40 MG TABLET.DR. PO SCH ×2 (10:41→17:42)
[2018-07-17] MEDS: CETIRIZINE HCL 10 MG TABLET. PO SCH (10:41)
[2018-07-17] MEDS: LIDOCAINE (700MG/PATCH) PATCH. TD SCH (10:43)
--- NOTE | 2018-07-17 11:45 | PDOC ---
Infectious Disease Note Subjective Subjective Feeling pretty good this morning Hoping to go home soon No fevers/chills/SOA ROS ROS per HPI otherwise neg Vital Sign Vital Signs Vital Signs Date Time Temp Pulse Resp B/P (MAP) Pulse Ox O2 Delivery O2 Flow Rate FiO2 07/17/18 11:24 Tracheal Collar 8.0 07/17/18 09:49 98.1 77 18 160/77 (104) 97 98.1 Physical Exam PHYSICAL EXAM GENERAL: Propped up in bed, alert, NAD, looks well HEENT: Oral cavity pink NECK: Trach to trach shield LUNGS: Clear anteriorly HEART: S1, S2, regular ABDOMEN: Soft, bowel sounds present, nontender. PEG tube intact. EXTREMITIES: No edema, no cyanosis. DERMATOLOGIC: Warm without generalized rash. NEUROLOGIC: Alert, responds appropriately Port - ok Labs Lab Laboratory Tests Test 07/16/18 12:59 07/16/18 23:57 07/17/18 05:00 07/17/18 05:55 Glucose (Fingerstick) 76 mg/dL (70-99) 81 mg/dL (70-99) 82 mg/dL (70-99) White Blood Count 6.6 x10^3/uL (4.0-11.0) Red Blood Count 4.28 x10^6/uL (3.50-5.40) Hemoglobin 10.6 g/dL (12.0-15.5) Hematocrit 34.5 % (36.0-47.0) Mean Corpuscular Volume 81 fL (79-100) Mean Corpuscular Hemoglobin 25 pg (25-35) Mean Corpuscular Hemoglobin Concent 31 g/dL (31-37) Red Cell Distribution Width 17.6 % (11.5-14.5) Platelet Count 316 x10^3/uL (140-400) Neutrophils (%) (Auto) 63 % (31-73) Lymphocytes (%) (Auto) 25 % (24-48) Monocytes (%) (Auto) 9 % (0-9) Eosinophils (%) (Auto) 3 % (0-3) Basophils (%) (Auto) 1 % (0-3) Neutrophils # (Auto) 4.1 x10^3uL (1.8-7.7) Lymphocytes # (Auto) 1.6 x10^3/uL (1.0-4.8) Monocytes # (Auto) 0.6 x10^3/uL (0.0-1.1) Eosinophils # (Auto) 0.2 x10^3/uL (0.0-0.7) Basophils # (Auto) 0.0 x10^3/uL (0.0-0.2) Sodium Level 139 mmol/L (136-145) Potassium Level 3.8 mmol/L (3.5-5.1) Chloride Level 101 mmol/L (98-107) Carbon Dioxide Level 28 mmol/L (21-32) Anion Gap 10 (6-14) Blood Urea Nitrogen 10 mg/dL (7-20) Creatinine 0.9 mg/dL (0.6-1.0) Estimated GFR (Cockcroft-Gault) 73.5 Glucose Level 105 mg/dL (70-99) Calcium Level 9.1 mg/dL (8.5-10.1) Micro 07/13. BLOOD CULTURE Final BLD CULT RESULT 1 Preliminary Comment Coagulase negative Staphylococcus species. 07/13. bronch Routine respiratory [employer] CULTURE GRAM STAIN Final Negative Objective Assessment Acute on chronic resp failure s/p bronch 07/13. routine jewell GPC bacteremia POA on 07/13 (1 of 2 bottles) CoNS, likely contaminate h/o MDR /CRE PSAE HCAP Leucocytosis - improved SANCHEZ - better Dysphagia, on tube feedings h/x lung and laryngeal ca h/o c. diff in 2017 h/o MRSA Encephalopathy likely multifactorial Plan Plan of Care Zerbaxa D/c vanc Trough 15.0 Probiotics monitor labs/renal functions closely - s/p one dose of Levaquin 07/13 Supportive care Attending Co-Sign Attending Co-Sign The patient was seen and interviewed as well as examined at the bedside. The chart was reviewed. The case was discussed. Agree with the plan of care. RAISA VILLAR APRN Jul 17, 2018 11:45 GWEN MCQUEEN MD Jul 17, 2018 13:24
--- NOTE | 2018-07-17 15:26 | RAD ---
CHEST AP ONLY dated 07/17/2018 2:54 PM. Comparison: 07/15/2018 Clinical Indication: SHORT OF AIR. PNEUMONIA Findings: Single upright portable exam performed. Heart and mediastinal contours are stable. Tracheostomy tube in place, unchanged. Right-sided port in place, unchanged. There is consolidation at the retrocardiac left base, similar to prior study. Patchy airspace disease bilaterally with ill-definition of the vascular interstitium. No new infiltrate or pneumothorax. Impression: No significant interval change compared to 07/15/2018. Electronically signed by: Thuan Hyde MD (07/17/2018 3:23 PM) [facility] [place]
[2018-07-18 02:44] VITALS: BP 162/93
[2018-07-18 04:45] LABS: BASO # 0.1 x10^3/uL (0.0-0.2); BASO % 1 % (0-3); EOS # 0.3 x10^3/uL (0.0-0.7); EOS % 3 % (0-3); HEMATOCRIT 37.3 % (36.0-47.0); HEMOGLOBIN 11.9 g/dL (12.0-15.5); LYMPH % 21 % (24-48); MEAN CORPUSCULAR HEMOGLOBIN 25 pg (25-35); MEAN CORPUSCULAR HGB CONC 32 g/dL (31-37); MEAN CORPUSCULAR VOLUME 79 fL (79-100); MONO # 0.7 x10^3/uL (0.0-1.1); MONO % 7 % (0-9); NEUT # 6.7 x10^3uL (1.8-7.7); NEUT % 69 % (31-73); PLATELET COUNT 324 x10^3/uL (140-400); RED BLOOD COUNT 4.73 x10^6/uL (3.50-5.40); RED CELL DISTRIBUTION WIDTH 17.4 % (11.5-14.5); WHITE BLOOD COUNT 9.7 x10^3/uL (4.0-11.0)
[2018-07-18] MEDS: ONDANSETRON PF 4 MG/2 ML VIAL. IV PRN ×2 (05:29→12:07)
[2018-07-18] MEDS: CEFTOLOZANE IV SCH ×3 (05:29→20:53)
[2018-07-18] MEDS: NORMAL SALINE IV SCH ×3 (05:29→20:53)
[2018-07-18] MEDS: TAZOBACTAM IV SCH ×3 (05:29→20:53)
[2018-07-18] MEDS: oxyCODONE/APAP 7.5/325 1 TAB TABLET PO PRN (05:30)
[2018-07-18] MEDS: HEPARIN for SUB-Q USE 5,000 UNIT/ML VIAL. SQ SCH ×3 (05:50→20:55)
[2018-07-18 06:31] VITALS: BP 142/62
[2018-07-18 06:40] LABS: CALCIUM 9.6 mg/dL (8.5-10.1); CREATININE 0.9 mg/dL (0.6-1.0); GFR 73.5; POTASSIUM 4.4 mmol/L (3.5-5.1)
[2018-07-18] MEDS: IPRATRPIUM/ALBUTEROL 0.5/2.5MG 3 ML NEBU. NEB SCH ×4 (07:23→19:54)
[2018-07-18] MEDS: GABAPENTIN 300 MG CAPSULE. PO SCH ×3 (08:54→20:52)
[2018-07-18] MEDS: DONEPEZIL HCL 5 MG TABLET. PEG SCH (08:54)
[2018-07-18] MEDS: CETIRIZINE HCL 10 MG TABLET. PO SCH (08:54)
[2018-07-18] MEDS: PANTOPRAZOLE 40 MG TABLET.DR. PO SCH ×2 (08:54→16:21)
[2018-07-18] MEDS: LACTOBACILLUS RHAMNOSUS GG 1 CAPSULE. PO SCH ×2 (08:54→20:52)
[2018-07-18] MEDS: METOCLOPRAMIDE 10 MG TABLET. PO SCH ×4 (08:54→20:52)
[2018-07-18] MEDS: CYPROHEPTADINE 4 MG TABLET. PO SCH ×3 (08:55→20:52)
[2018-07-18] MEDS: LIDOCAINE (700MG/PATCH) PATCH. TD SCH (08:56)
--- NOTE | 2018-07-18 09:12 | PDOC ---
PROGRESS NOTES Chief Complaint Chief Complaint [id number]-qa-[id number] hypoxic and suspect hypercapnic respiratory failure secondary to recurrent pneumonia and mucus plugging, chronic trach Abnormal chest x-ray with bilateral infiltrates, more suggesting pneumonia. History of lung cancer and laryngeal cancer, status post chemo and radiation, status post tracheostomy. She has ongoing left lower lobe mass-like consolidation, which is most likely a residual tumor on a previous CT. 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 Mild dementia H/o HTN CKD stage 3 History of Present Illness History of Present Illness Pt seen and examined Laying in bed, chronic trach with trach shield, alert and cooperative Discussed with RN Vitals Vitals Vital Signs Date Time Temp Pulse Resp B/P (MAP) Pulse Ox O2 Delivery O2 Flow Rate FiO2 07/18/18 07:26 96 Tracheal Collar 8.0 07/18/18 06:31 97.9 90 15 142/62 (88) 97.9 Physical Exam Physical Exam GENERAL: Propped up in bed, alert, NAD, looks well HEENT: Oral cavity pink NECK: Trach to trach shield LUNGS: Clear anteriorly HEART: S1, S2, regular ABDOMEN: Soft, bowel sounds present, nontender. PEG tube intact. EXTREMITIES: No edema, no cyanosis. DERMATOLOGIC: Warm without generalized rash. NEUROLOGIC: Alert, responds appropriately Port - ok General: Alert, Cooperative, No acute distress Heart: Regular rate, Normal S1, Normal S2 Lungs: Crackles, Other (decrease bases) Abdomen: Soft, No tenderness Extremities: No clubbing, No cyanosis Skin: No rashes, No breakdown Labs LABS Laboratory Tests Test 07/17/18 12:57 07/18/18 00:52 07/18/18 04:00 07/18/18 06:45 Glucose (Fingerstick) 137 mg/dL (70-99) 96 mg/dL (70-99) 84 mg/dL (70-99) White Blood Count 9.7 x10^3/uL (4.0-11.0) Red Blood Count 4.73 x10^6/uL (3.50-5.40) Hemoglobin 11.9 g/dL (12.0-15.5) Hematocrit 37.3 % (36.0-47.0) Mean Corpuscular Volume 79 fL (79-100) Mean Corpuscular Hemoglobin 25 pg (25-35) Mean Corpuscular Hemoglobin Concent 32 g/dL (31-37) Red Cell Distribution Width 17.4 % (11.5-14.5) Platelet Count 324 x10^3/uL (140-400) Neutrophils (%) (Auto) 69 % (31-73) Lymphocytes (%) (Auto) 21 % (24-48) Monocytes (%) (Auto) 7 % (0-9) Eosinophils (%) (Auto) 3 % (0-3) Basophils (%) (Auto) 1 % (0-3) Neutrophils # (Auto) 6.7 x10^3uL (1.8-7.7) Lymphocytes # (Auto) 2.0 x10^3/uL (1.0-4.8) Monocytes # (Auto) 0.7 x10^3/uL (0.0-1.1) Eosinophils # (Auto) 0.3 x10^3/uL (0.0-0.7) Basophils # (Auto) 0.1 x10^3/uL (0.0-0.2) Sodium Level 141 mmol/L (136-145) Potassium Level 4.4 mmol/L (3.5-5.1) Chloride Level 102 mmol/L (98-107) Carbon Dioxide Level 31 mmol/L (21-32) Anion Gap 8 (6-14) Blood Urea Nitrogen 11 mg/dL (7-20) Creatinine 0.9 mg/dL (0.6-1.0) Estimated GFR (Cockcroft-Gault) 73.5 Glucose Level 80 mg/dL (70-99) Calcium Level 9.6 mg/dL (8.5-10.1) Comment Review of Relevant I have reviewed the following items miko (where applicable) has been applied. Labs Laboratory Tests Test 07/16/18 12:59 07/16/18 23:57 07/17/18 05:00 07/17/18 05:55 Glucose (Fingerstick) 76 mg/dL (70-99) 81 mg/dL (70-99) 82 mg/dL (70-99) White Blood Count 6.6 x10^3/uL (4.0-11.0) Red Blood Count 4.28 x10^6/uL (3.50-5.40) Hemoglobin 10.6 g/dL (12.0-15.5) Hematocrit 34.5 % (36.0-47.0) Mean Corpuscular Volume 81 fL (79-100) Mean Corpuscular Hemoglobin 25 pg (25-35) Mean Corpuscular Hemoglobin Concent 31 g/dL (31-37) Red Cell Distribution Width 17.6 % (11.5-14.5) Platelet Count 316 x10^3/uL (140-400) Neutrophils (%) (Auto) 63 % (31-73) Lymphocytes (%) (Auto) 25 % (24-48) Monocytes (%) (Auto) 9 % (0-9) Eosinophils (%) (Auto) 3 % (0-3) Basophils (%) (Auto) 1 % (0-3) Neutrophils # (Auto) 4.1 x10^3uL (1.8-7.7) Lymphocytes # (Auto) 1.6 x10^3/uL (1.0-4.8) Monocytes # (Auto) 0.6 x10^3/uL (0.0-1.1) Eosinophils # (Auto) 0.2 x10^3/uL (0.0-0.7) Basophils # (Auto) 0.0 x10^3/uL (0.0-0.2) Sodium Level 139 mmol/L (136-145) Potassium Level 3.8 mmol/L (3.5-5.1) Chloride Level 101 mmol/L (98-107) Carbon Dioxide Level 28 mmol/L (21-32) Anion Gap 10 (6-14) Blood Urea Nitrogen 10 mg/dL (7-20) Creatinine 0.9 mg/dL (0.6-1.0) Estimated GFR (Cockcroft-Gault) 73.5 Glucose Level 105 mg/dL (70-99) Calcium Level 9.1 mg/dL (8.5-10.1) Test 07/17/18 12:57 07/18/18 00:52 07/18/18 04:00 07/18/18 06:45 Glucose (Fingerstick) 137 mg/dL (70-99) 96 mg/dL (70-99) 84 mg/dL (70-99) White Blood Count 9.7 x10^3/uL (4.0-11.0) Red Blood Count 4.73 x10^6/uL (3.50-5.40) Hemoglobin 11.9 g/dL (12.0-15.5) Hematocrit 37.3 % (36.0-47.0) Mean Corpuscular Volume 79 fL (79-100) Mean Corpuscular Hemoglobin 25 pg (25-35) Mean Corpuscular Hemoglobin Concent 32 g/dL (31-37) Red Cell Distribution Width 17.4 % (11.5-14.5) Platelet Count 324 x10^3/uL (140-400) Neutrophils (%) (Auto) 69 % (31-73) Lymphocytes (%) (Auto) 21 % (24-48) Monocytes (%) (Auto) 7 % (0-9) Eosinophils (%) (Auto) 3 % (0-3) Basophils (%) (Auto) 1 % (0-3) Neutrophils # (Auto) 6.7 x10^3uL (1.8-7.7) Lymphocytes # (Auto) 2.0 x10^3/uL (1.0-4.8) Monocytes # (Auto) 0.7 x10^3/uL (0.0-1.1) Eosinophils # (Auto) 0.3 x10^3/uL (0.0-0.7) Basophils # (Auto) 0.1 x10^3/uL (0.0-0.2) Sodium Level 141 mmol/L (136-145) Potassium Level 4.4 mmol/L (3.5-5.1) Chloride Level 102 mmol/L (98-107) Carbon Dioxide Level 31 mmol/L (21-32) Anion Gap 8 (6-14) Blood Urea Nitrogen 11 mg/dL (7-20) Creatinine 0.9 mg/dL (0.6-1.0) Estimated GFR (Cockcroft-Gault) 73.5 Glucose Level 80 mg/dL (70-99) Calcium Level 9.6 mg/dL (8.5-10.1) Laboratory Tests Test 07/17/18 12:57 07/18/18 00:52 07/18/18 04:00 07/18/18 06:45 Glucose (Fingerstick) 137 mg/dL (70-99) 96 mg/dL (70-99) 84 mg/dL (70-99) White Blood Count 9.7 x10^3/uL (4.0-11.0) Red Blood Count 4.73 x10^6/uL (3.50-5.40) Hemoglobin 11.9 g/dL (12.0-15.5) Hematocrit 37.3 % (36.0-47.0) Mean Corpuscular Volume 79 fL (79-100) Mean Corpuscular Hemoglobin 25 pg (25-35) Mean Corpuscular Hemoglobin Concent 32 g/dL (31-37) Red Cell Distribution Width 17.4 % (11.5-14.5) Platelet Count 324 x10^3/uL (140-400) Neutrophils (%) (Auto) 69 % (31-73) Lymphocytes (%) (Auto) 21 % (24-48) Monocytes (%) (Auto) 7 % (0-9) Eosinophils (%) (Auto) 3 % (0-3) Basophils (%) (Auto) 1 % (0-3) Neutrophils # (Auto) 6.7 x10^3uL (1.8-7.7) Lymphocytes # (Auto) 2.0 x10^3/uL (1.0-4.8) Monocytes # (Auto) 0.7 x10^3/uL (0.0-1.1) Eosinophils # (Auto) 0.3 x10^3/uL (0.0-0.7) Basophils # (Auto) 0.1 x10^3/uL (0.0-0.2) Sodium Level 141 mmol/L (136-145) Potassium Level 4.4 mmol/L (3.5-5.1) Chloride Level 102 mmol/L (98-107) Carbon Dioxide Level 31 mmol/L (21-32) Anion Gap 8 (6-14) Blood Urea Nitrogen 11 mg/dL (7-20) Creatinine 0.9 mg/dL (0.6-1.0) Estimated GFR (Cockcroft-Gault) 73.5 Glucose Level 80 mg/dL (70-99) Calcium Level 9.6 mg/dL (8.5-10.1) Microbiology 07/13/18 Blood Culture - Final, Complete 07/13/18 Blood Culture Result 1 (VANITA) - Final, Complete 07/13/18 Antimicrobic Susceptibility - Final, Complete 07/13/18 AFB Specimen Processing Tissue - Final, Resulted 07/13/18 Acid Fast Bacilli Culture, Resulted Pending 07/13/18 Gram Stain - Final, Resulted 07/13/18 Fungal Culture, Resulted Pending 07/13/18 Fungal Culture Result 1, Resulted Pending Medications Current Medications Albuterol/ Ipratropium (Duoneb) 3 ml 1X ONCE NEB Last administered on at 07:24; Start 07/13/18 at 07:00; Stop 07/13/18 at 07:01; Status DC Ondansetron HCl (Zofran) 4 mg PRN Q8HRS PRN IV NAUSEA/VOMITING; Start at 08:30; Stop 07/14/18 at 08:29; Status DC Vancomycin HCl (Vanco Per Pharmacy) 1 each PRN DAILY PRN MC SEE COMMENTS Last administered on 07/16/18at 15:18; Start 07/13/18 at 08:30; Stop 07/17/18 at 13: 24; Status DC Piperacillin Sod/ Tazobactam Sod (Zosyn Per Pharmacy) 1 each PRN DAILY PRN MC SEE COMMENTS; Start 07/13/18 at 08:30; Stop 07/13/18 at 14:06; Status DC Levofloxacin/ Dextrose 150 ml @ 100 mls/hr 1X ONCE IV Last administered on at 09:51; Start 07/13/18 at 09:00; Stop 07/13/18 at 10:29; Status DC Albuterol Sulfate (Ventolin Neb Soln) 2.5 mg PRN Q3HRS PRN NEB SHORTNESS OF BREATH; Start 07/13/18 at 08:45; Stop 07/13/18 at 14:23; Status DC Sodium Chloride 500 ml @ 250 mls/hr 1X ONCE IV Last administered on at 08:42; Start 07/13/18 at 08:45; Stop 07/13/18 at 10:44; Status DC Piperacillin Sod/ Tazobactam Sod 3.375 gm/Sodium Chloride 50 ml @ 100 mls/hr 1X ONCE IV Last administered on 07/13/18at 08:54; Start 07/13/18 at 08:45; Stop 07/13/18 at 14:06; Status DC Vancomycin HCl 1.5 gm/Sodium Chloride 500 ml @ 250 mls/hr 1X ONCE IV Last administered on 07/13/18at 12:58; Start 07/13/18 at 09:00; Stop 07/13/18 at 10 :59; Status DC Piperacillin Sod/ Tazobactam Sod 3.375 gm/Sodium Chloride 50 ml @ 100 mls/hr Q6HRS IV Last administered on 07/13/18at 12:58; Start 07/13/18 at 13:00; Stop 07/13/18 at 14:06; Status DC Sodium Chloride (Normal Saline Flush) 3 ml QSHIFT PRN IV AFTER MEDS AND BLOOD DRAWS; Start 07/13/18 at 12:00 Lidocaine HCl 100 ml PRN 1X PRN MM MOUTH PAIN Last administered on 07/13/18at 12:03; Start 07/13/18 at 12:00; Stop 07/14/18 at 11:59; Status DC Lidocaine HCl (Lidocaine 1% 50ml Vial) 50 ml PRN 1X PRN INJ SEE COMMENTS Last administered on 07/13/18at 12:04; Start 07/13/18 at 12:00; Stop 07/14/18 at 11 :59; Status DC Ceftolozane/ Tazobactam 750 mg/ Sodium Chloride 100 ml @ 100 mls/hr Q8HRS IV Last administered on 07/18/18at 05:29; Start 07/13/18 at 14:30 Cetirizine HCl (ZyrTEC) 10 mg DAILY PO Last administered on 07/18/18at 08:54; Start 07/13/18 at 15:00 Fentanyl (Duragesic 50mcg/ Hr Patch) 1 patch Q3DAYS TD Last administered on 07/16/18at 08:59; Start 07/13/18 at 15:00 Lactobacillus Rhamnosus (Culturelle) 1 cap BID PO Last administered on at 08:54; Start 07/13/18 at 21:00 Metoclopramide HCl (Reglan) 5 mg QIDACHS PO Last administered on 07/18/18at 08: 54; Start 07/13/18 at 16:30 Ondansetron HCl (Zofran Odt) 4 mg QIDPRN PRN PEG NAUSEA/VOMITING; Start at 14:15 Oxycodone/ Acetaminophen (Percocet 7.5/ 325) 1 tab QID PRN PO SEVERE PAIN Last administered on 07/18/18 05:30; Start 07/13/18 at 14:15 Pantoprazole Sodium (Protonix) 40 mg BIDAC PO Last administered on 07/18/18 08 :54; Start 07/13/18 at 16:30 Cyproheptadine HCl (Periactin) 4 mg TID PO Last administered on 07/18/18 08:55 ; Start 07/13/18 at 15:00 Donepezil HCl (Aricept) 5 mg DAILY PEG Last administered on 07/18/18 08:54; Start 07/13/18 at 15:00 Gabapentin (Neurontin) 300 mg TID PO Last administered on 07/18/18 08:54; Start 07/13/18 at 21:00 Lidocaine (Lidoderm) 1 patch DAILY TD Last administered on 07/18/18 08:56; Start 07/13/18 at 15:00 Acetaminophen (Tylenol) 650 mg PRN Q6HRS PRN PO FEVER Last administered on 07/15 09:14; Start 07/13/18 at 14:15 Ondansetron HCl (Zofran) 4 mg PRN Q6HRS PRN IV NAUSEA/VOMITING Last administered on 07/18/18 05:29; Start 07/13/18 at 14:15 Morphine Sulfate (Morphine Sulfate) 2 mg PRN Q2HR PRN IV MODERATE TO SEVERE PAIN Last administered on 07/15/18 06:03; Start 07/13/18 at 14:15 Tramadol HCl (Ultram) 50 mg PRN Q6HRS PRN PO MILD TO MODERATE PAIN; Start at 14:15 Docusate Sodium (Colace) 100 mg PRN DAILY PRN PO CONSTIPATION Last administered on 07/17/18 17:45; Start 07/13/18 at 14:15 Albuterol/ Ipratropium (Duoneb) 3 ml RTQID NEB Last administered on 07/18/18 07:23; Start 07/13/18 at 16:00 Albuterol Sulfate (Ventolin Neb Soln) 2.5 mg PRN Q2HR PRN NEB SHORTNESS OF BREATH; Start 07/13/18 at 14:15 Guaifenesin (Mucinex) 600 mg BID PO Last administered on 07/18/18at 08:54; Start 07/13/18 at 21:00 Heparin Sodium (Porcine) (Heparin Sodium) 5,000 unit Q8HRS SQ Last administered on 07/18/18at 05:50; Start 07/13/18 at 22:00 Vancomycin HCl 1 gm/Sodium Chloride 250 ml @ 250 mls/hr Q18H IV Last administered on 07/17/18at 05:28; Start 07/14/18 at 06:00; Stop 07/17/18 at 13: 24; Status DC Vancomycin HCl (Vancomycin Trough Level) 1 each 1X ONCE MC ; Start 07/14/18 at 23:30; Stop 07/14/18 at 23:31; Status DC Vancomycin HCl (Vancomycin Trough Level) 1 each 1X ONCE MC ; Start 07/18/18 at 17:30; Stop 07/18/18 at 17:30; Status DC Dextrose (Dextrose 50%-Water Syringe) 25 gm STK-MED ONCE IV ; Start 07/15/18 at 06:41; Stop 07/15/18 at 06:42; Status DC Dextrose (Dextrose 50%-Water Syringe) 25 gm STK-MED ONCE IV ; Start 07/15/18 at 07:00; Stop 07/15/18 at 08:54; Status DC Albuterol/ Ipratropium (Duoneb) 3 ml RTQID NEB ; Start 07/16/18 at 20:00; Status UNV Active Scripts Active Zerbaxa 1-0.5 Gram Vial (Ceftolozane/Tazobactam) 1.5 Gm Vial 0.75 Gm IV Q8HRS 7 Days Atenolol-Chlorthal 50-25 Tb (Atenolol/Chlorthalidone) 1 Each Tablet 1 Tab PEG DAILY Gabapentin 300 Mg Capsule 300 Mg PO TID 30 Days Culturelle (Lactobacillus Rhamnosus Gg) 1 Each Cap.sprink 1 Cap PO BID 30 Days Reported Lidocaine 1 Each Adh..patch 1 Each TP DAILY Cetirizine Hcl 10 Mg Tablet 1 Tab PO DAILY Losartan Potassium 100 Mg Tablet 100 Mg PO DAILY Pantoprazole Sodium 40 Mg Tablet.dr 40 Mg PEG BID Donepezil Hcl 5 Mg Tablet 5 Mg PEG BID Reglan (Metoclopramide Hcl) 10 Mg Tablet 5 Mg PO QIDACHS Cyproheptadine Hcl 2 Mg/5 Ml Syrup 10 Ml PEG TID Percocet 7.5-325 Mg Tablet (Oxycodone/Acetaminophen) 1 Each Tablet 1 Tab PO QID PRN FENTANYL 50mcg/hr (Fentanyl) 1 Each Patch.td72 1 Patch TP Q3DAYS Ondansetron Odt (Ondansetron) 4 Mg Tab.rapdis 4 Mg PEG QIDPRN PRN Vitals/I & O Vital Sign - Last 24 Hours 07/17/18 07/17/18 07/17/18 07/17/18 09:47 09:49 09:53 11:00 Temp 98.0 98.1 98.7 98.0 98.1 98.7 Pulse 77 77 96 Resp 18 18 B/P (MAP) 160/77 (104) 160/77 (104) 161/85 (110) Pulse Ox 97 97 92 O2 Delivery Trach Collar O2 Flow Rate 8.0 8.0 8.0 07/17/18 07/17/18 07/17/18 07/17/18 11:24 15:00 15:37 18:50 Temp 98.1 98.1 Pulse 85 Resp 16 B/P (MAP) 142/74 (96) Pulse Ox 92 O2 Delivery Tracheal Collar Tracheal Collar Tracheal Collar Tracheal Collar O2 Flow Rate 8.0 8.0 07/17/18 07/17/18 07/17/18 07/17/18 19:00 19:24 20:03 22:32 Temp 99.4 97.5 99.4 97.5 Pulse 105 98 Resp 16 16 B/P (MAP) 149/73 (98) 166/75 (105) Pulse Ox 94 96 92 O2 Delivery Tracheal Collar Tracheal Collar Trach Collar Tracheal Collar O2 Flow Rate 5.0 8.0 8.0 5.0 07/18/18 07/18/18 07/18/18 07/18/18 02:44 05:30 06:31 06:31 Temp 98.4 97.9 98.4 97.9 Pulse 85 90 Resp 15 18 18 15 B/P (MAP) 162/93 (116) 142/62 (88) Pulse Ox 93 93 93 93 O2 Delivery Tracheal Collar Tracheal Collar O2 Flow Rate 5.0 5.0 5.0 5.0 07/18/18 07:26 Pulse Ox 96 O2 Delivery Tracheal Collar O2 Flow Rate 8.0 Intake and Output 07/17/18 07/17/18 07/18/18 15:00 23:00 07:00 Intake Total 680 ml Balance 680 ml Nutrition Consultation Dietary Evaluation: Recommendations by RD: Increase Calorie Intake Comments: REC continue TF per following: Jevity 1.5 bolus QID, 1 carton/237 ml per bolus, w/100 ml water flushes before and after each feeding Expected Outcomes/Goals: TF intake to meet >75% est needs - goal ongoing Malnutrition Findings: Body Fat Depletion (Non Severe: Mild Depletion Weight Status: Appropriate CUONG SHIRLEY MD Jul 18, 2018 09:12
--- NOTE | 2018-07-18 10:27 | PDOC ---
Infectious Disease Note Subjective Subjective Comfortable, no complaints Denies pain/SOA/chills No fevers ROS ROS per HPI otherwise neg Vital Sign Vital Signs Vital Signs Date Time Temp Pulse Resp B/P (MAP) Pulse Ox O2 Delivery O2 Flow Rate FiO2 07/18/18 08:00 Trach Collar 8.0 07/18/18 07:26 96 07/18/18 06:31 97.9 90 15 142/62 (88) 97.9 Physical Exam PHYSICAL EXAM GENERAL: Propped up in bed, alert, NAD, looks well HEENT: Oral cavity pink NECK: Trach to trach shield + secretions LUNGS: Clear anteriorly, nonlabored HEART: S1, S2, regular ABDOMEN: Soft, bowel sounds present, nontender. PEG tube intact. EXTREMITIES: No edema, no cyanosis. DERMATOLOGIC: Warm without generalized rash. NEUROLOGIC: Alert, responds appropriately Port - ok Labs Lab Laboratory Tests Test 07/17/18 12:57 07/18/18 00:52 07/18/18 04:00 07/18/18 06:45 Glucose (Fingerstick) 137 mg/dL (70-99) 96 mg/dL (70-99) 84 mg/dL (70-99) White Blood Count 9.7 x10^3/uL (4.0-11.0) Red Blood Count 4.73 x10^6/uL (3.50-5.40) Hemoglobin 11.9 g/dL (12.0-15.5) Hematocrit 37.3 % (36.0-47.0) Mean Corpuscular Volume 79 fL (79-100) Mean Corpuscular Hemoglobin 25 pg (25-35) Mean Corpuscular Hemoglobin Concent 32 g/dL (31-37) Red Cell Distribution Width 17.4 % (11.5-14.5) Platelet Count 324 x10^3/uL (140-400) Neutrophils (%) (Auto) 69 % (31-73) Lymphocytes (%) (Auto) 21 % (24-48) Monocytes (%) (Auto) 7 % (0-9) Eosinophils (%) (Auto) 3 % (0-3) Basophils (%) (Auto) 1 % (0-3) Neutrophils # (Auto) 6.7 x10^3uL (1.8-7.7) Lymphocytes # (Auto) 2.0 x10^3/uL (1.0-4.8) Monocytes # (Auto) 0.7 x10^3/uL (0.0-1.1) Eosinophils # (Auto) 0.3 x10^3/uL (0.0-0.7) Basophils # (Auto) 0.1 x10^3/uL (0.0-0.2) Sodium Level 141 mmol/L (136-145) Potassium Level 4.4 mmol/L (3.5-5.1) Chloride Level 102 mmol/L (98-107) Carbon Dioxide Level 31 mmol/L (21-32) Anion Gap 8 (6-14) Blood Urea Nitrogen 11 mg/dL (7-20) Creatinine 0.9 mg/dL (0.6-1.0) Estimated GFR (Cockcroft-Gault) 73.5 Glucose Level 80 mg/dL (70-99) Calcium Level 9.6 mg/dL (8.5-10.1) Micro 07/13. BLOOD CULTURE Final BLD CULT RESULT 1 Preliminary Comment Coagulase negative Staphylococcus species. 07/13. bronch Routine respiratory jewell AFB CULTURE GRAM STAIN Final Negative Objective Assessment Acute on chronic resp failure s/p bronch 07/13. routine jewell GPC bacteremia POA on 07/13 (1 of 2 bottles) CoNS, likely contaminate h/o MDR /CRE PSAE HCAP Leucocytosis - improved SANCHEZ - better Dysphagia, on tube feedings h/x lung and laryngeal ca h/o c. diff in 2016 h/o MRSA Encephalopathy likely multifactorial Plan Plan of Care Zerbaxa (started 07/13) D/c vanc one dose of Levaquin 07/13 Trough 15.0 Probiotics monitor labs Supportive care Hopefully home 07/19 Attending Co-Sign Attending Co-Sign The patient was seen and interviewed as well as examined at the bedside. The chart was reviewed. The case was discussed. Agree with the plan of care. RAISA VILLAR APRN Jul 18, 2018 10:27 GWEN MCQUEEN MD Jul 18, 2018 13:52
[2018-07-18 11:00] VITALS: BP 121/66
--- NOTE | 2018-07-18 13:32 | PDOC ---
PULMONARY PROGRESS NOTES Subjective no soa some trach secretions Vitals Vital Signs Date Time Temp Pulse Resp B/P (MAP) Pulse Ox O2 Delivery O2 Flow Rate FiO2 07/18/18 11:11 Tracheal Collar 8.0 07/18/18 11:00 97.9 94 16 121/66 (84) 86 97.9 General: Alert, No acute distress HEENT: Other Lungs: Other (decrease bases) Cardiovascular: S1, S2 Abdomen: Soft, Non-tender Neuro Exam: Alert Extremities: No Edema Skin: Warm Labs Laboratory Tests Test 07/16/18 23:57 07/17/18 05:00 07/17/18 05:55 07/17/18 12:57 Glucose (Fingerstick) 81 mg/dL (70-99) 82 mg/dL (70-99) 137 mg/dL (70-99) White Blood Count 6.6 x10^3/uL (4.0-11.0) Red Blood Count 4.28 x10^6/uL (3.50-5.40) Hemoglobin 10.6 g/dL (12.0-15.5) Hematocrit 34.5 % (36.0-47.0) Mean Corpuscular Volume 81 fL (79-100) Mean Corpuscular Hemoglobin 25 pg (25-35) Mean Corpuscular Hemoglobin Concent 31 g/dL (31-37) Red Cell Distribution Width 17.6 % (11.5-14.5) Platelet Count 316 x10^3/uL (140-400) Neutrophils (%) (Auto) 63 % (31-73) Lymphocytes (%) (Auto) 25 % (24-48) Monocytes (%) (Auto) 9 % (0-9) Eosinophils (%) (Auto) 3 % (0-3) Basophils (%) (Auto) 1 % (0-3) Neutrophils # (Auto) 4.1 x10^3uL (1.8-7.7) Lymphocytes # (Auto) 1.6 x10^3/uL (1.0-4.8) Monocytes # (Auto) 0.6 x10^3/uL (0.0-1.1) Eosinophils # (Auto) 0.2 x10^3/uL (0.0-0.7) Basophils # (Auto) 0.0 x10^3/uL (0.0-0.2) Sodium Level 139 mmol/L (136-145) Potassium Level 3.8 mmol/L (3.5-5.1) Chloride Level 101 mmol/L (98-107) Carbon Dioxide Level 28 mmol/L (21-32) Anion Gap 10 (6-14) Blood Urea Nitrogen 10 mg/dL (7-20) Creatinine 0.9 mg/dL (0.6-1.0) Estimated GFR (Cockcroft-Gault) 73.5 Glucose Level 105 mg/dL (70-99) Calcium Level 9.1 mg/dL (8.5-10.1) Test 07/18/18 00:52 07/18/18 04:00 07/18/18 06:45 07/18/18 12:05 Glucose (Fingerstick) 96 mg/dL (70-99) 84 mg/dL (70-99) 99 mg/dL (70-99) White Blood Count 9.7 x10^3/uL (4.0-11.0) Red Blood Count 4.73 x10^6/uL (3.50-5.40) Hemoglobin 11.9 g/dL (12.0-15.5) Hematocrit 37.3 % (36.0-47.0) Mean Corpuscular Volume 79 fL (79-100) Mean Corpuscular Hemoglobin 25 pg (25-35) Mean Corpuscular Hemoglobin Concent 32 g/dL (31-37) Red Cell Distribution Width 17.4 % (11.5-14.5) Platelet Count 324 x10^3/uL (140-400) Neutrophils (%) (Auto) 69 % (31-73) Lymphocytes (%) (Auto) 21 % (24-48) Monocytes (%) (Auto) 7 % (0-9) Eosinophils (%) (Auto) 3 % (0-3) Basophils (%) (Auto) 1 % (0-3) Neutrophils # (Auto) 6.7 x10^3uL (1.8-7.7) Lymphocytes # (Auto) 2.0 x10^3/uL (1.0-4.8) Monocytes # (Auto) 0.7 x10^3/uL (0.0-1.1) Eosinophils # (Auto) 0.3 x10^3/uL (0.0-0.7) Basophils # (Auto) 0.1 x10^3/uL (0.0-0.2) Sodium Level 141 mmol/L (136-145) Potassium Level 4.4 mmol/L (3.5-5.1) Chloride Level 102 mmol/L (98-107) Carbon Dioxide Level 31 mmol/L (21-32) Anion Gap 8 (6-14) Blood Urea Nitrogen 11 mg/dL (7-20) Creatinine 0.9 mg/dL (0.6-1.0) Estimated GFR (Cockcroft-Gault) 73.5 Glucose Level 80 mg/dL (70-99) Calcium Level 9.6 mg/dL (8.5-10.1) Laboratory Tests Test 07/18/18 00:52 07/18/18 04:00 07/18/18 06:45 07/18/18 12:05 Glucose (Fingerstick) 96 mg/dL (70-99) 84 mg/dL (70-99) 99 mg/dL (70-99) White Blood Count 9.7 x10^3/uL (4.0-11.0) Red Blood Count 4.73 x10^6/uL (3.50-5.40) Hemoglobin 11.9 g/dL (12.0-15.5) Hematocrit 37.3 % (36.0-47.0) Mean Corpuscular Volume 79 fL (79-100) Mean Corpuscular Hemoglobin 25 pg (25-35) Mean Corpuscular Hemoglobin Concent 32 g/dL (31-37) Red Cell Distribution Width 17.4 % (11.5-14.5) Platelet Count 324 x10^3/uL (140-400) Neutrophils (%) (Auto) 69 % (31-73) Lymphocytes (%) (Auto) 21 % (24-48) Monocytes (%) (Auto) 7 % (0-9) Eosinophils (%) (Auto) 3 % (0-3) Basophils (%) (Auto) 1 % (0-3) Neutrophils # (Auto) 6.7 x10^3uL (1.8-7.7) Lymphocytes # (Auto) 2.0 x10^3/uL (1.0-4.8) Monocytes # (Auto) 0.7 x10^3/uL (0.0-1.1) Eosinophils # (Auto) 0.3 x10^3/uL (0.0-0.7) Basophils # (Auto) 0.1 x10^3/uL (0.0-0.2) Sodium Level 141 mmol/L (136-145) Potassium Level 4.4 mmol/L (3.5-5.1) Chloride Level 102 mmol/L (98-107) Carbon Dioxide Level 31 mmol/L (21-32) Anion Gap 8 (6-14) Blood Urea Nitrogen 11 mg/dL (7-20) Creatinine 0.9 mg/dL (0.6-1.0) Estimated GFR (Cockcroft-Gault) 73.5 Glucose Level 80 mg/dL (70-99) Calcium Level 9.6 mg/dL (8.5-10.1) Medications Active Scripts Medications Dose Route/Sig Max Daily Dose Days Date Category Zerbaxa 1-0.5 Gram Vial (Ceftolozane/Tazobactam) 1.5 Gm Vial 0.75 Gm IV Q8HRS 7 06/19/18 Rx Atenolol-Chlorthal 50-25 Tb (Atenolol/Chlorthalidone) 1 Each Tablet 1 Tab PEG DAILY 06/15/18 Rx Lidocaine 1 Each Adh..patch 1 Each TP DAILY 06/14/18 Reported Cetirizine Hcl 10 Mg Tablet 1 Tab PO DAILY 06/14/18 Reported Losartan Potassium 100 Mg Tablet 100 Mg PO DAILY 06/14/18 Reported Gabapentin 300 Mg Capsule 300 Mg PO TID 30 02/18/18 Rx Culturelle (Lactobacillus Rhamnosus Gg) 1 Each Cap.sprink 1 Cap PO BID 30 07/07/17 Rx Pantoprazole Sodium 40 Mg Tablet.dr 40 Mg PEG BID 03/11/17 Reported Donepezil Hcl 5 Mg Tablet 5 Mg PEG BID 03/11/17 Reported Reglan (Metoclopramide Hcl) 10 Mg Tablet 5 Mg PO QIDACHS 03/11/17 Reported Cyproheptadine Hcl 2 Mg/5 Ml Syrup 10 Ml PEG TID 03/11/17 Reported Percocet 7.5-325 Mg Tablet (Oxycodone/Acetaminophen) 1 Each Tablet 1 Tab PO QID PRN 03/11/17 Reported FENTANYL 50mcg/hr (Fentanyl) 1 Each Patch.td72 1 Patch TP Q3DAYS 06/19/14 Reported Ondansetron Odt (Ondansetron) 4 Mg Tab.rapdis 4 Mg PEG QIDPRN PRN 06/19/14 Reported Comments BRONCH CULTURE Final Final report BRONCH RES 1 Final Comment Routine respiratory jewell Performed at: DA - [facility] [address] [facility] [address], [place], [place] [id number] Finance Intern: YANG Lawrence MD, Phone: [phone] Impression . 1. [id number]-aw-lfpnkyb hypoxic/ hypercapnic respiratory failure secondary to recurrent pneumonia and mucus plugging. clinically better 2. Abnormal chest x-ray with bilateral infiltrates, suggesting pneumonia. 3. History of lung cancer and laryngeal cancer, status post chemo and radiation, status post tracheostomy. She has ongoing left lower lobe mass-like consolidation, which is most likely a residual tumor on a previous CT. 4. Encephalopathy secondary to pneumonia and possible early sepsis.resolved 5. GPC bacteremia POA on 07/13 (1 of 2 bottles) , staph coag neg, contaminant Plan . 1. Continue with present trach collar . 2. s/p bronchoscopy. No growth on final cultures 3. empiric antibiotic 4. Infectious Disease following 5. Bronchodilators. 6. DVT prophylaxis. 7. Enteral nutrition. 8. ok with dc in am if ok by MARY JAMES MD Jul 18, 2018 13:32
[2018-07-18] MEDS ORDERED: SENNA LEAF EXTRACT 528 MG/15 ML ORAL SYRUP. PEG PRN (14:00)
[2018-07-18 15:00] VITALS: BP 151/90
[2018-07-18 19:00] VITALS: BP 147/79
--- NOTE | 2018-07-18 22:00 | RAD ---
KUB Clinical indications: Abdominal pain with palpable mass in the right side. FINDINGS: There is mild fecal retention throughout the colon and rectosigmoid region. No obstructive bowel pattern is seen. Coarse popcorn-like calcifications are seen within the central pelvis consistent with uterine fibroids. A PEG tube is present. Surgical clips are seen within the epigastric region. IMPRESSION: No acute abnormality. Calcified uterine fibroids. Electronically signed by: Mu Mead MD (07/18/2018 9:56 PM) [facility]
[2018-07-18 23:00] VITALS: BP 142/83
[2018-07-19] MEDS: oxyCODONE/APAP 7.5/325 1 TAB TABLET PO PRN (00:34)
[2018-07-19 03:00] VITALS: BP 158/87
--- NOTE | 2018-07-19 03:23 | RAD ---
ABDOMEN LTD Clinical Indication: NURSE NOTICE NEW ABD PALPABLE MASS RT TO MIDLINE UMBILICAL, PAINFUL Comparison: CT abdomen and pelvis without contrast, November 23, 2017. TECHNIQUE: Real-time ultrasound imaging in the ventral abdominal wall area of concern is performed. Findings: In the right ventral abdominal wall near the umbilicus there is heterogeneous very hypoechoic mass in the subcutaneous fat. Finding is superficial to the ventral abdominal wall. The appearance is multilobular. Color Doppler interrogation is negative. The hypoechogenicity is noncompressible. Finding measures up to 4.2 x 1.3 x 1.2 cm. No evidence of hernia. No correlate is seen on prior CT. IMPRESSION: Heterogeneous hypoechoic mass in the subcutaneous fat of the ventral abdominal wall in the area of concern. Sonographic appearance is nonspecific. Finding does not appear to be complex fluid. There is no evidence of hernia. Electronically signed by: Hayden Anand MD (07/19/2018 3:19 AM) [facility]
[2018-07-19] MEDS: NORMAL SALINE IV SCH (05:46)
[2018-07-19] MEDS: TAZOBACTAM IV SCH (05:46)
[2018-07-19] MEDS: CEFTOLOZANE IV SCH (05:46)
[2018-07-19 05:51] LABS: BASO % 0 % (0-3); EOS # 0.2 x10^3/uL (0.0-0.7); EOS % 3 % (0-3); HEMATOCRIT 34.5 % (36.0-47.0); HEMOGLOBIN 10.8 g/dL (12.0-15.5); LYMPH # 2.1 x10^3/uL (1.0-4.8); LYMPH % 28 % (24-48); MEAN CORPUSCULAR HEMOGLOBIN 25 pg (25-35); MEAN CORPUSCULAR HGB CONC 31 g/dL (31-37); MEAN CORPUSCULAR VOLUME 79 fL (79-100); MONO # 0.5 x10^3/uL (0.0-1.1); MONO % 7 % (0-9); NEUT # 4.8 x10^3uL (1.8-7.7); NEUT % 62 % (31-73); PLATELET COUNT 346 x10^3/uL (140-400); RED BLOOD COUNT 4.39 x10^6/uL (3.50-5.40); RED CELL DISTRIBUTION WIDTH 17.4 % (11.5-14.5); WHITE BLOOD COUNT 7.7 x10^3/uL (4.0-11.0)
[2018-07-19] MEDS: HEPARIN for SUB-Q USE 5,000 UNIT/ML VIAL. SQ SCH ×2 (05:55→14:29)
[2018-07-19 05:59] LABS: CALCIUM 9.6 mg/dL (8.5-10.1); CREATININE 0.9 mg/dL (0.6-1.0); GFR 73.5; POTASSIUM 3.9 mmol/L (3.5-5.1)
[2018-07-19 07:00] VITALS: BP 155/89
[2018-07-19] MEDS: IPRATRPIUM/ALBUTEROL 0.5/2.5MG 3 ML NEBU. NEB SCH ×4 (07:55→19:29)
[2018-07-19] MEDS: GABAPENTIN 300 MG CAPSULE. PO SCH ×2 (08:20→14:28)
[2018-07-19] MEDS: PANTOPRAZOLE 40 MG TABLET.DR. PO SCH ×2 (08:20→16:30)
[2018-07-19] MEDS: LACTOBACILLUS RHAMNOSUS GG 1 CAPSULE. PO SCH (08:20)
[2018-07-19] MEDS: CETIRIZINE HCL 10 MG TABLET. PO SCH (08:20)
[2018-07-19] MEDS: CYPROHEPTADINE 4 MG TABLET. PO SCH ×2 (08:20→14:28)
[2018-07-19] MEDS: METOCLOPRAMIDE 10 MG TABLET. PO SCH ×3 (08:21→16:30)
[2018-07-19] MEDS: fentaNYL 50MCG/HR PATCH 1 PATCH PATCH.TD72 TD SCH (08:21)
[2018-07-19] MEDS: LIDOCAINE (700MG/PATCH) PATCH. TD SCH (08:22)
[2018-07-19] MEDS: DONEPEZIL HCL 5 MG TABLET. PEG SCH (08:22)
--- NOTE | 2018-07-19 10:00 | PDOC ---
PULMONARY PROGRESS NOTES Subjective no soa some trach secretions Vitals Vital Signs Date Time Temp Pulse Resp B/P (MAP) Pulse Ox O2 Delivery O2 Flow Rate FiO2 07/19/18 08:21 20 90 Tracheal Collar 8.0 07/19/18 07:00 97.8 87 155/89 (111) 97.8 General: Alert, No acute distress HEENT: Other Lungs: Other Cardiovascular: S1, S2 Abdomen: Soft, Non-tender Neuro Exam: Alert Extremities: No Edema Skin: Warm Labs Laboratory Tests Test 07/17/18 12:57 07/18/18 00:52 07/18/18 04:00 07/18/18 06:45 Glucose (Fingerstick) 137 mg/dL (70-99) 96 mg/dL (70-99) 84 mg/dL (70-99) White Blood Count 9.7 x10^3/uL (4.0-11.0) Red Blood Count 4.73 x10^6/uL (3.50-5.40) Hemoglobin 11.9 g/dL (12.0-15.5) Hematocrit 37.3 % (36.0-47.0) Mean Corpuscular Volume 79 fL (79-100) Mean Corpuscular Hemoglobin 25 pg (25-35) Mean Corpuscular Hemoglobin Concent 32 g/dL (31-37) Red Cell Distribution Width 17.4 % (11.5-14.5) Platelet Count 324 x10^3/uL (140-400) Neutrophils (%) (Auto) 69 % (31-73) Lymphocytes (%) (Auto) 21 % (24-48) Monocytes (%) (Auto) 7 % (0-9) Eosinophils (%) (Auto) 3 % (0-3) Basophils (%) (Auto) 1 % (0-3) Neutrophils # (Auto) 6.7 x10^3uL (1.8-7.7) Lymphocytes # (Auto) 2.0 x10^3/uL (1.0-4.8) Monocytes # (Auto) 0.7 x10^3/uL (0.0-1.1) Eosinophils # (Auto) 0.3 x10^3/uL (0.0-0.7) Basophils # (Auto) 0.1 x10^3/uL (0.0-0.2) Sodium Level 141 mmol/L (136-145) Potassium Level 4.4 mmol/L (3.5-5.1) Chloride Level 102 mmol/L (98-107) Carbon Dioxide Level 31 mmol/L (21-32) Anion Gap 8 (6-14) Blood Urea Nitrogen 11 mg/dL (7-20) Creatinine 0.9 mg/dL (0.6-1.0) Estimated GFR (Cockcroft-Gault) 73.5 Glucose Level 80 mg/dL (70-99) Calcium Level 9.6 mg/dL (8.5-10.1) Test 07/18/18 12:05 07/18/18 18:07 07/18/18 20:20 07/19/18 00:05 Glucose (Fingerstick) 99 mg/dL (70-99) 81 mg/dL (70-99) 73 mg/dL (70-99) 88 mg/dL (70-99) Test 07/19/18 04:10 07/19/18 06:07 White Blood Count 7.7 x10^3/uL (4.0-11.0) Red Blood Count 4.39 x10^6/uL (3.50-5.40) Hemoglobin 10.8 g/dL (12.0-15.5) Hematocrit 34.5 % (36.0-47.0) Mean Corpuscular Volume 79 fL (79-100) Mean Corpuscular Hemoglobin 25 pg (25-35) Mean Corpuscular Hemoglobin Concent 31 g/dL (31-37) Red Cell Distribution Width 17.4 % (11.5-14.5) Platelet Count 346 x10^3/uL (140-400) Neutrophils (%) (Auto) 62 % (31-73) Lymphocytes (%) (Auto) 28 % (24-48) Monocytes (%) (Auto) 7 % (0-9) Eosinophils (%) (Auto) 3 % (0-3) Basophils (%) (Auto) 0 % (0-3) Neutrophils # (Auto) 4.8 x10^3uL (1.8-7.7) Lymphocytes # (Auto) 2.1 x10^3/uL (1.0-4.8) Monocytes # (Auto) 0.5 x10^3/uL (0.0-1.1) Eosinophils # (Auto) 0.2 x10^3/uL (0.0-0.7) Basophils # (Auto) 0.0 x10^3/uL (0.0-0.2) Sodium Level 138 mmol/L (136-145) Potassium Level 3.9 mmol/L (3.5-5.1) Chloride Level 99 mmol/L (98-107) Carbon Dioxide Level 31 mmol/L (21-32) Anion Gap 8 (6-14) Blood Urea Nitrogen 10 mg/dL (7-20) Creatinine 0.9 mg/dL (0.6-1.0) Estimated GFR (Cockcroft-Gault) 73.5 Glucose Level 75 mg/dL (70-99) Calcium Level 9.6 mg/dL (8.5-10.1) Glucose (Fingerstick) 85 mg/dL (70-99) Laboratory Tests Test 07/18/18 12:05 07/18/18 18:07 07/18/18 20:20 07/19/18 00:05 Glucose (Fingerstick) 99 mg/dL (70-99) 81 mg/dL (70-99) 73 mg/dL (70-99) 88 mg/dL (70-99) Test 07/19/18 04:10 07/19/18 06:07 White Blood Count 7.7 x10^3/uL (4.0-11.0) Red Blood Count 4.39 x10^6/uL (3.50-5.40) Hemoglobin 10.8 g/dL (12.0-15.5) Hematocrit 34.5 % (36.0-47.0) Mean Corpuscular Volume 79 fL (79-100) Mean Corpuscular Hemoglobin 25 pg (25-35) Mean Corpuscular Hemoglobin Concent 31 g/dL (31-37) Red Cell Distribution Width 17.4 % (11.5-14.5) Platelet Count 346 x10^3/uL (140-400) Neutrophils (%) (Auto) 62 % (31-73) Lymphocytes (%) (Auto) 28 % (24-48) Monocytes (%) (Auto) 7 % (0-9) Eosinophils (%) (Auto) 3 % (0-3) Basophils (%) (Auto) 0 % (0-3) Neutrophils # (Auto) 4.8 x10^3uL (1.8-7.7) Lymphocytes # (Auto) 2.1 x10^3/uL (1.0-4.8) Monocytes # (Auto) 0.5 x10^3/uL (0.0-1.1) Eosinophils # (Auto) 0.2 x10^3/uL (0.0-0.7) Basophils # (Auto) 0.0 x10^3/uL (0.0-0.2) Sodium Level 138 mmol/L (136-145) Potassium Level 3.9 mmol/L (3.5-5.1) Chloride Level 99 mmol/L (98-107) Carbon Dioxide Level 31 mmol/L (21-32) Anion Gap 8 (6-14) Blood Urea Nitrogen 10 mg/dL (7-20) Creatinine 0.9 mg/dL (0.6-1.0) Estimated GFR (Cockcroft-Gault) 73.5 Glucose Level 75 mg/dL (70-99) Calcium Level 9.6 mg/dL (8.5-10.1) Glucose (Fingerstick) 85 mg/dL (70-99) Medications Active Scripts Medications Dose Route/Sig Max Daily Dose Days Date Category Zerbaxa 1-0.5 Gram Vial (Ceftolozane/Tazobactam) 1.5 Gm Vial 0.75 Gm IV Q8HRS 7 06/19/18 Rx Atenolol-Chlorthal 50-25 Tb (Atenolol/Chlorthalidone) 1 Each Tablet 1 Tab PEG DAILY 06/15/18 Rx Lidocaine 1 Each Adh..patch 1 Each TP DAILY 06/14/18 Reported Cetirizine Hcl 10 Mg Tablet 1 Tab PO DAILY 06/14/18 Reported Losartan Potassium 100 Mg Tablet 100 Mg PO DAILY 06/14/18 Reported Gabapentin 300 Mg Capsule 300 Mg PO TID 30 02/18/18 Rx Culturelle (Lactobacillus Rhamnosus Gg) 1 Each Cap.sprink 1 Cap PO BID 30 07/07/17 Rx Pantoprazole Sodium 40 Mg Tablet.dr 40 Mg PEG BID 03/11/17 Reported Donepezil Hcl 5 Mg Tablet 5 Mg PEG BID 03/11/17 Reported Reglan (Metoclopramide Hcl) 10 Mg Tablet 5 Mg PO QIDACHS 03/11/17 Reported Cyproheptadine Hcl 2 Mg/5 Ml Syrup 10 Ml PEG TID 03/11/17 Reported Percocet 7.5-325 Mg Tablet (Oxycodone/Acetaminophen) 1 Each Tablet 1 Tab PO QID PRN 03/11/17 Reported FENTANYL 50mcg/hr (Fentanyl) 1 Each Patch.td72 1 Patch TP Q3DAYS 06/19/14 Reported Ondansetron Odt (Ondansetron) 4 Mg Tab.rapdis 4 Mg PEG QIDPRN PRN 06/19/14 Reported Comments BRONCH CULTURE Final Final report BRONCH RES 1 Final Comment Routine respiratory jewell Performed at: DA - [facility] [address] [facility] [address], [place], [place] [id number] Staff Forester: YANG Lawrence MD, Phone: [phone] Impression . 1. Pidmh-bg-yuhhurh hypoxic/ hypercapnic respiratory failure secondary to recurrent pneumonia and mucus plugging. clinically better 2. Abnormal chest x-ray with bilateral infiltrates, suggesting pneumonia. 3. History of lung cancer and laryngeal cancer, status post chemo and radiation, status post tracheostomy. She has ongoing left lower lobe mass-like consolidation, which is most likely a residual tumor on a previous CT. 4. Encephalopathy secondary to pneumonia and possible early sepsis.resolved 5. GPC bacteremia POA on 07/13 (1 of 2 bottles) , staph coag neg, contaminant Plan . PT FEELS BETTER TO D/C TODAY ANURAG LOO MD Jul 19, 2018 10:00
[2018-07-19] MEDS: ONDANSETRON PF 4 MG/2 ML VIAL. IV PRN (10:03)
[2018-07-19 11:00] VITALS: BP 122/71
--- NOTE | 2018-07-19 12:16 | PDOC ---
PROGRESS NOTES Chief Complaint Chief Complaint impression [id number] hypoxic and suspect hypercapnic respiratory failure secondary to recurrent pneumonia and mucus plugging, chronic trach Abnormal chest x-ray with bilateral infiltrates, more suggesting pneumonia. History of lung cancer and laryngeal cancer, status post chemo and radiation, status post tracheostomy. She has ongoing left lower lobe mass-like consolidation, which is most likely a residual tumor on a previous CT. 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 Mild dementia H/o HTN CKD stage 3 History of Present Illness History of Present Illness Pt seen and examined sitting in chair, chronic trach with trach shield, alert and cooperative Discussed with RN d/c today Vitals Vitals Vital Signs Date Time Temp Pulse Resp B/P (MAP) Pulse Ox O2 Delivery O2 Flow Rate FiO2 07/19/18 11:37 93 Tracheal Collar 8.0 07/19/18 11:00 97.9 101 18 122/71 (88) 97.9 Physical Exam Physical Exam GENERAL: Propped up in bed, alert, NAD, looks well HEENT: Oral cavity pink NECK: Trach to trach shield + secretions LUNGS: Clear anteriorly, nonlabored HEART: S1, S2, regular ABDOMEN: Soft, bowel sounds present, nontender. PEG tube intact. EXTREMITIES: No edema, no cyanosis. DERMATOLOGIC: Warm without generalized rash. NEUROLOGIC: Alert, responds appropriately Port - ok General: Alert, Cooperative, No acute distress Heart: Regular rate, Normal S1, Normal S2 Lungs: Clear, Other Abdomen: Soft, No tenderness Extremities: No clubbing, No cyanosis Skin: No rashes, No breakdown Labs LABS Laboratory Tests Test 07/18/18 18:07 07/18/18 20:20 07/19/18 00:05 07/19/18 04:10 Glucose (Fingerstick) 81 mg/dL (70-99) 73 mg/dL (70-99) 88 mg/dL (70-99) White Blood Count 7.7 x10^3/uL (4.0-11.0) Red Blood Count 4.39 x10^6/uL (3.50-5.40) Hemoglobin 10.8 g/dL (12.0-15.5) Hematocrit 34.5 % (36.0-47.0) Mean Corpuscular Volume 79 fL (79-100) Mean Corpuscular Hemoglobin 25 pg (25-35) Mean Corpuscular Hemoglobin Concent 31 g/dL (31-37) Red Cell Distribution Width 17.4 % (11.5-14.5) Platelet Count 346 x10^3/uL (140-400) Neutrophils (%) (Auto) 62 % (31-73) Lymphocytes (%) (Auto) 28 % (24-48) Monocytes (%) (Auto) 7 % (0-9) Eosinophils (%) (Auto) 3 % (0-3) Basophils (%) (Auto) 0 % (0-3) Neutrophils # (Auto) 4.8 x10^3uL (1.8-7.7) Lymphocytes # (Auto) 2.1 x10^3/uL (1.0-4.8) Monocytes # (Auto) 0.5 x10^3/uL (0.0-1.1) Eosinophils # (Auto) 0.2 x10^3/uL (0.0-0.7) Basophils # (Auto) 0.0 x10^3/uL (0.0-0.2) Sodium Level 138 mmol/L (136-145) Potassium Level 3.9 mmol/L (3.5-5.1) Chloride Level 99 mmol/L (98-107) Carbon Dioxide Level 31 mmol/L (21-32) Anion Gap 8 (6-14) Blood Urea Nitrogen 10 mg/dL (7-20) Creatinine 0.9 mg/dL (0.6-1.0) Estimated GFR (Cockcroft-Gault) 73.5 Glucose Level 75 mg/dL (70-99) Calcium Level 9.6 mg/dL (8.5-10.1) Test 07/19/18 06:07 Glucose (Fingerstick) 85 mg/dL (70-99) Comment Review of Relevant I have reviewed the following items miko (where applicable) has been applied. Labs Laboratory Tests Test 07/17/18 12:57 07/18/18 00:52 07/18/18 04:00 07/18/18 06:45 Glucose (Fingerstick) 137 mg/dL (70-99) 96 mg/dL (70-99) 84 mg/dL (70-99) White Blood Count 9.7 x10^3/uL (4.0-11.0) Red Blood Count 4.73 x10^6/uL (3.50-5.40) Hemoglobin 11.9 g/dL (12.0-15.5) Hematocrit 37.3 % (36.0-47.0) Mean Corpuscular Volume 79 fL (79-100) Mean Corpuscular Hemoglobin 25 pg (25-35) Mean Corpuscular Hemoglobin Concent 32 g/dL (31-37) Red Cell Distribution Width 17.4 % (11.5-14.5) Platelet Count 324 x10^3/uL (140-400) Neutrophils (%) (Auto) 69 % (31-73) Lymphocytes (%) (Auto) 21 % (24-48) Monocytes (%) (Auto) 7 % (0-9) Eosinophils (%) (Auto) 3 % (0-3) Basophils (%) (Auto) 1 % (0-3) Neutrophils # (Auto) 6.7 x10^3uL (1.8-7.7) Lymphocytes # (Auto) 2.0 x10^3/uL (1.0-4.8) Monocytes # (Auto) 0.7 x10^3/uL (0.0-1.1) Eosinophils # (Auto) 0.3 x10^3/uL (0.0-0.7) Basophils # (Auto) 0.1 x10^3/uL (0.0-0.2) Sodium Level 141 mmol/L (136-145) Potassium Level 4.4 mmol/L (3.5-5.1) Chloride Level 102 mmol/L (98-107) Carbon Dioxide Level 31 mmol/L (21-32) Anion Gap 8 (6-14) Blood Urea Nitrogen 11 mg/dL (7-20) Creatinine 0.9 mg/dL (0.6-1.0) Estimated GFR (Cockcroft-Gault) 73.5 Glucose Level 80 mg/dL (70-99) Calcium Level 9.6 mg/dL (8.5-10.1) Test 07/18/18 12:05 07/18/18 18:07 07/18/18 20:20 07/19/18 00:05 Glucose (Fingerstick) 99 mg/dL (70-99) 81 mg/dL (70-99) 73 mg/dL (70-99) 88 mg/dL (70-99) Test 07/19/18 04:10 07/19/18 06:07 White Blood Count 7.7 x10^3/uL (4.0-11.0) Red Blood Count 4.39 x10^6/uL (3.50-5.40) Hemoglobin 10.8 g/dL (12.0-15.5) Hematocrit 34.5 % (36.0-47.0) Mean Corpuscular Volume 79 fL (79-100) Mean Corpuscular Hemoglobin 25 pg (25-35) Mean Corpuscular Hemoglobin Concent 31 g/dL (31-37) Red Cell Distribution Width 17.4 % (11.5-14.5) Platelet Count 346 x10^3/uL (140-400) Neutrophils (%) (Auto) 62 % (31-73) Lymphocytes (%) (Auto) 28 % (24-48) Monocytes (%) (Auto) 7 % (0-9) Eosinophils (%) (Auto) 3 % (0-3) Basophils (%) (Auto) 0 % (0-3) Neutrophils # (Auto) 4.8 x10^3uL (1.8-7.7) Lymphocytes # (Auto) 2.1 x10^3/uL (1.0-4.8) Monocytes # (Auto) 0.5 x10^3/uL (0.0-1.1) Eosinophils # (Auto) 0.2 x10^3/uL (0.0-0.7) Basophils # (Auto) 0.0 x10^3/uL (0.0-0.2) Sodium Level 138 mmol/L (136-145) Potassium Level 3.9 mmol/L (3.5-5.1) Chloride Level 99 mmol/L (98-107) Carbon Dioxide Level 31 mmol/L (21-32) Anion Gap 8 (6-14) Blood Urea Nitrogen 10 mg/dL (7-20) Creatinine 0.9 mg/dL (0.6-1.0) Estimated GFR (Cockcroft-Gault) 73.5 Glucose Level 75 mg/dL (70-99) Calcium Level 9.6 mg/dL (8.5-10.1) Glucose (Fingerstick) 85 mg/dL (70-99) Laboratory Tests Test 07/18/18 18:07 07/18/18 20:20 07/19/18 00:05 07/19/18 04:10 Glucose (Fingerstick) 81 mg/dL (70-99) 73 mg/dL (70-99) 88 mg/dL (70-99) White Blood Count 7.7 x10^3/uL (4.0-11.0) Red Blood Count 4.39 x10^6/uL (3.50-5.40) Hemoglobin 10.8 g/dL (12.0-15.5) Hematocrit 34.5 % (36.0-47.0) Mean Corpuscular Volume 79 fL (79-100) Mean Corpuscular Hemoglobin 25 pg (25-35) Mean Corpuscular Hemoglobin Concent 31 g/dL (31-37) Red Cell Distribution Width 17.4 % (11.5-14.5) Platelet Count 346 x10^3/uL (140-400) Neutrophils (%) (Auto) 62 % (31-73) Lymphocytes (%) (Auto) 28 % (24-48) Monocytes (%) (Auto) 7 % (0-9) Eosinophils (%) (Auto) 3 % (0-3) Basophils (%) (Auto) 0 % (0-3) Neutrophils # (Auto) 4.8 x10^3uL (1.8-7.7) Lymphocytes # (Auto) 2.1 x10^3/uL (1.0-4.8) Monocytes # (Auto) 0.5 x10^3/uL (0.0-1.1) Eosinophils # (Auto) 0.2 x10^3/uL (0.0-0.7) Basophils # (Auto) 0.0 x10^3/uL (0.0-0.2) Sodium Level 138 mmol/L (136-145) Potassium Level 3.9 mmol/L (3.5-5.1) Chloride Level 99 mmol/L (98-107) Carbon Dioxide Level 31 mmol/L (21-32) Anion Gap 8 (6-14) Blood Urea Nitrogen 10 mg/dL (7-20) Creatinine 0.9 mg/dL (0.6-1.0) Estimated GFR (Cockcroft-Gault) 73.5 Glucose Level 75 mg/dL (70-99) Calcium Level 9.6 mg/dL (8.5-10.1) Test 07/19/18 06:07 Glucose (Fingerstick) 85 mg/dL (70-99) Microbiology 07/13/18 Blood Culture - Final, Complete 07/13/18 Blood Culture Result 1 (VANITA) - Final, Complete 07/13/18 Antimicrobic Susceptibility - Final, Complete 07/13/18 AFB Specimen Processing Tissue - Final, Resulted 07/13/18 Acid Fast Bacilli Culture, Resulted Pending 07/13/18 Gram Stain - Final, Resulted 07/13/18 Fungal Culture, Resulted Pending 07/13/18 Fungal Culture Result 1, Resulted Pending Medications Current Medications Albuterol/ Ipratropium (Duoneb) 3 ml 1X ONCE NEB Last administered on at 07:24; Start 07/13/18 at 07:00; Stop 07/13/18 at 07:01; Status DC Ondansetron HCl (Zofran) 4 mg PRN Q8HRS PRN IV NAUSEA/VOMITING; Start at 08:30; Stop 07/14/18 at 08:29; Status DC Vancomycin HCl (Vanco Per Pharmacy) 1 each PRN DAILY PRN MC SEE COMMENTS Last administered on 07/16/18at 15:18; Start 07/13/18 at 08:30; Stop 07/17/18 at 13: 24; Status DC Piperacillin Sod/ Tazobactam Sod (Zosyn Per Pharmacy) 1 each PRN DAILY PRN MC SEE COMMENTS; Start 07/13/18 at 08:30; Stop 07/13/18 at 14:06; Status DC Levofloxacin/ Dextrose 150 ml @ 100 mls/hr 1X ONCE IV Last administered on at 09:51; Start 07/13/18 at 09:00; Stop 07/13/18 at 10:29; Status DC Albuterol Sulfate (Ventolin Neb Soln) 2.5 mg PRN Q3HRS PRN NEB SHORTNESS OF BREATH; Start 07/13/18 at 08:45; Stop 07/13/18 at 14:23; Status DC Sodium Chloride 500 ml @ 250 mls/hr 1X ONCE IV Last administered on at 08:42; Start 07/13/18 at 08:45; Stop 07/13/18 at 10:44; Status DC Piperacillin Sod/ Tazobactam Sod 3.375 gm/Sodium Chloride 50 ml @ 100 mls/hr 1X ONCE IV Last administered on 07/13/18at 08:54; Start 07/13/18 at 08:45; Stop 07/13/18 at 14:06; Status DC Vancomycin HCl 1.5 gm/Sodium Chloride 500 ml @ 250 mls/hr 1X ONCE IV Last administered on 07/13/18at 12:58; Start 07/13/18 at 09:00; Stop 07/13/18 at 10 :59; Status DC Piperacillin Sod/ Tazobactam Sod 3.375 gm/Sodium Chloride 50 ml @ 100 mls/hr Q6HRS IV Last administered on 07/13/18at 12:58; Start 07/13/18 at 13:00; Stop 07/13/18 at 14:06; Status DC Sodium Chloride (Normal Saline Flush) 3 ml QSHIFT PRN IV AFTER MEDS AND BLOOD DRAWS; Start 07/13/18 at 12:00 Lidocaine HCl 100 ml PRN 1X PRN MM MOUTH PAIN Last administered on 07/13/18at 12:03; Start 07/13/18 at 12:00; Stop 07/14/18 at 11:59; Status DC Lidocaine HCl (Lidocaine 1% 50ml Vial) 50 ml PRN 1X PRN INJ SEE COMMENTS Last administered on 07/13/18at 12:04; Start 07/13/18 at 12:00; Stop 07/14/18 at 11 :59; Status DC Ceftolozane/ Tazobactam 750 mg/ Sodium Chloride 100 ml @ 100 mls/hr Q8HRS IV Last administered on 07/19/18at 05:46; Start 07/13/18 at 14:30 Cetirizine HCl (ZyrTEC) 10 mg DAILY PO Last administered on 07/19/18at 08:20; Start 07/13/18 at 15:00 Fentanyl (Duragesic 50mcg/ Hr Patch) 1 patch Q3DAYS TD Last administered on 08:21; Start 07/13/18 at 15:00 Lactobacillus Rhamnosus (Culturelle) 1 cap BID PO Last administered on 08:20; Start 07/13/18 at 21:00 Metoclopramide HCl (Reglan) 5 mg QIDACHS PO Last administered on 07/19/18 08: 21; Start 07/13/18 at 16:30 Ondansetron HCl (Zofran Odt) 4 mg QIDPRN PRN PEG NAUSEA/VOMITING; Start at 14:15 Oxycodone/ Acetaminophen (Percocet 7.5/ 325) 1 tab QID PRN PO SEVERE PAIN Last administered on 07/19/18 00:34; Start 07/13/18 at 14:15 Pantoprazole Sodium (Protonix) 40 mg BIDAC PO Last administered on 07/19/18 08 :20; Start 07/13/18 at 16:30 Cyproheptadine HCl (Periactin) 4 mg TID PO Last administered on 07/19/18 08:20 ; Start 07/13/18 at 15:00 Donepezil HCl (Aricept) 5 mg DAILY PEG Last administered on 07/19/18 08:22; Start 07/13/18 at 15:00 Gabapentin (Neurontin) 300 mg TID PO Last administered on 07/19/18 08:20; Start 07/13/18 at 21:00 Lidocaine (Lidoderm) 1 patch DAILY TD Last administered on 07/19/18 08:22; Start 07/13/18 at 15:00 Acetaminophen (Tylenol) 650 mg PRN Q6HRS PRN PO FEVER Last administered on 07/15 09:14; Start 07/13/18 at 14:15 Ondansetron HCl (Zofran) 4 mg PRN Q6HRS PRN IV NAUSEA/VOMITING Last administered on 07/19/18 10:03; Start 07/13/18 at 14:15 Morphine Sulfate (Morphine Sulfate) 2 mg PRN Q2HR PRN IV MODERATE TO SEVERE PAIN Last administered on 07/15/18 06:03; Start 07/13/18 at 14:15 Tramadol HCl (Ultram) 50 mg PRN Q6HRS PRN PO MILD TO MODERATE PAIN; Start at 14:15 Docusate Sodium (Colace) 100 mg PRN DAILY PRN PO CONSTIPATION Last administered on 07/17/18at 17:45; Start 07/13/18 at 14:15 Albuterol/ Ipratropium (Duoneb) 3 ml RTQID NEB Last administered on 07/19/18at 11:36; Start 07/13/18 at 16:00 Albuterol Sulfate (Ventolin Neb Soln) 2.5 mg PRN Q2HR PRN NEB SHORTNESS OF BREATH; Start 07/13/18 at 14:15 Guaifenesin (Mucinex) 600 mg BID PO Last administered on 07/19/18at 08:20; Start 07/13/18 at 21:00 Heparin Sodium (Porcine) (Heparin Sodium) 5,000 unit Q8HRS SQ Last administered on 07/19/18at 05:55; Start 07/13/18 at 22:00 Vancomycin HCl 1 gm/Sodium Chloride 250 ml @ 250 mls/hr Q18H IV Last administered on 07/17/18at 05:28; Start 07/14/18 at 06:00; Stop 07/17/18 at 13: 24; Status DC Vancomycin HCl (Vancomycin Trough Level) 1 each 1X ONCE MC ; Start 07/14/18 at 23:30; Stop 07/14/18 at 23:31; Status DC Vancomycin HCl (Vancomycin Trough Level) 1 each 1X ONCE MC ; Start 07/18/18 at 17:30; Stop 07/18/18 at 17:30; Status DC Dextrose (Dextrose 50%-Water Syringe) 25 gm STK-MED ONCE IV ; Start 07/15/18 at 06:41; Stop 07/15/18 at 06:42; Status DC Dextrose (Dextrose 50%-Water Syringe) 25 gm STK-MED ONCE IV ; Start 07/15/18 at 07:00; Stop 07/15/18 at 08:54; Status DC Albuterol/ Ipratropium (Duoneb) 3 ml RTQID NEB ; Start 07/16/18 at 20:00; Status UNV Senna (Senna Oral Syrup) 528 mg PRN DAILY PRN PEG CONSTIPATION Last administered on 07/18/18at 14:24; Start 07/18/18 at 14:00 Active Scripts Active Zerbaxa 1-0.5 Gram Vial (Ceftolozane/Tazobactam) 1.5 Gm Vial 0.75 Gm IV Q8HRS 7 Days Atenolol-Chlorthal 50-25 Tb (Atenolol/Chlorthalidone) 1 Each Tablet 1 Tab PEG DAILY Gabapentin 300 Mg Capsule 300 Mg PO TID 30 Days Culturelle (Lactobacillus Rhamnosus Gg) 1 Each Cap.sprink 1 Cap PO BID 30 Days Reported Lidocaine 1 Each Adh..patch 1 Each TP DAILY Cetirizine Hcl 10 Mg Tablet 1 Tab PO DAILY Losartan Potassium 100 Mg Tablet 100 Mg PO DAILY Pantoprazole Sodium 40 Mg Tablet.dr 40 Mg PEG BID Donepezil Hcl 5 Mg Tablet 5 Mg PEG BID Reglan (Metoclopramide Hcl) 10 Mg Tablet 5 Mg PO QIDACHS Cyproheptadine Hcl 2 Mg/5 Ml Syrup 10 Ml PEG TID Percocet 7.5-325 Mg Tablet (Oxycodone/Acetaminophen) 1 Each Tablet 1 Tab PO QID PRN FENTANYL 50mcg/hr (Fentanyl) 1 Each Patch.td72 1 Patch TP Q3DAYS Ondansetron Odt (Ondansetron) 4 Mg Tab.rapdis 4 Mg PEG QIDPRN PRN Vitals/I & O Vital Sign - Last 24 Hours 07/18/18 07/18/18 07/18/18 07/18/18 15:00 15:19 19:00 19:55 Temp 98.4 99.1 98.4 99.1 Pulse 87 94 Resp 18 18 B/P (MAP) 151/90 (110) 147/79 (101) Pulse Ox 95 88 96 O2 Delivery Tracheal Collar Tracheal Collar Tracheal Collar Tracheal Collar O2 Flow Rate 5.0 8.0 5.0 8.0 07/18/18 07/18/18 07/19/18 07/19/18 20:00 23:00 00:34 01:35 Temp 98.0 98.0 Pulse 93 Resp 20 B/P (MAP) 142/83 (102) Pulse Ox 95 O2 Delivery Trach Collar Tracheal Collar Tracheal Collar Tracheal Collar O2 Flow Rate 8.0 8.0 8.0 8.0 07/19/18 07/19/18 07/19/18 07/19/18 03:00 07:00 07:57 08:21 Temp 99.4 97.8 99.4 97.8 Pulse 89 87 Resp 18 18 20 B/P (MAP) 158/87 (110) 155/89 (111) Pulse Ox 98 97 90 90 O2 Delivery Tracheal Collar 5L Tracheal Collar Tracheal Collar O2 Flow Rate 8.0 8.0 8.0 07/19/18 07/19/18 11:00 11:37 Temp 97.9 97.9 Pulse 101 Resp 18 B/P (MAP) 122/71 (88) Pulse Ox 96 93 O2 Delivery 5L Tracheal Collar O2 Flow Rate 8.0 Intake and Output 07/18/18 07/18/18 07/19/18 15:00 23:00 07:00 Intake Total 100 ml Output Total 550 ml 450 ml Balance -450 ml -450 ml Nutrition Consultation Dietary Evaluation: Recommendations by RD: Increase Calorie Intake Comments: REC continue TF per following: Jevity 1.5 bolus QID, 1 carton/237 ml per bolus, w/100 ml water flushes before and after each feeding Expected Outcomes/Goals: TF intake to meet >75% est needs - goal ongoing Malnutrition Findings: Body Fat Depletion (Non Severe: Mild Depletion Weight Status: Appropriate CUONG SHIRLEY MD Jul 19, 2018 12:16
--- NOTE | 2018-07-19 12:18 | PDOC ---
Infectious Disease Note Subjective Subjective Feeling good Less tracheal secretions Denies cough/SOA/CP/F/C/S/N/V/D ROS ROS per HPI otherwise neg Vital Sign Vital Signs Vital Signs Date Time Temp Pulse Resp B/P (MAP) Pulse Ox O2 Delivery O2 Flow Rate FiO2 07/19/18 11:37 93 Tracheal Collar 8.0 07/19/18 11:00 97.9 101 18 122/71 (88) 97.9 Physical Exam PHYSICAL EXAM GENERAL: Sitting in the chair, alert, watching TV HEENT: Oral cavity pink NECK: Trach to trach shield FiO2 33% LUNGS: Clear anteriorly, nonlabored HEART: S1, S2, regular ABDOMEN: Soft, bowel sounds present, nontender. PEG tube intact. EXTREMITIES: No edema, no cyanosis. DERMATOLOGIC: Warm without generalized rash. NEUROLOGIC: Alert, responds appropriately Port - ok Labs Lab Laboratory Tests Test 07/18/18 18:07 07/18/18 20:20 07/19/18 00:05 07/19/18 04:10 Glucose (Fingerstick) 81 mg/dL (70-99) 73 mg/dL (70-99) 88 mg/dL (70-99) White Blood Count 7.7 x10^3/uL (4.0-11.0) Red Blood Count 4.39 x10^6/uL (3.50-5.40) Hemoglobin 10.8 g/dL (12.0-15.5) Hematocrit 34.5 % (36.0-47.0) Mean Corpuscular Volume 79 fL (79-100) Mean Corpuscular Hemoglobin 25 pg (25-35) Mean Corpuscular Hemoglobin Concent 31 g/dL (31-37) Red Cell Distribution Width 17.4 % (11.5-14.5) Platelet Count 346 x10^3/uL (140-400) Neutrophils (%) (Auto) 62 % (31-73) Lymphocytes (%) (Auto) 28 % (24-48) Monocytes (%) (Auto) 7 % (0-9) Eosinophils (%) (Auto) 3 % (0-3) Basophils (%) (Auto) 0 % (0-3) Neutrophils # (Auto) 4.8 x10^3uL (1.8-7.7) Lymphocytes # (Auto) 2.1 x10^3/uL (1.0-4.8) Monocytes # (Auto) 0.5 x10^3/uL (0.0-1.1) Eosinophils # (Auto) 0.2 x10^3/uL (0.0-0.7) Basophils # (Auto) 0.0 x10^3/uL (0.0-0.2) Sodium Level 138 mmol/L (136-145) Potassium Level 3.9 mmol/L (3.5-5.1) Chloride Level 99 mmol/L (98-107) Carbon Dioxide Level 31 mmol/L (21-32) Anion Gap 8 (6-14) Blood Urea Nitrogen 10 mg/dL (7-20) Creatinine 0.9 mg/dL (0.6-1.0) Estimated GFR (Cockcroft-Gault) 73.5 Glucose Level 75 mg/dL (70-99) Calcium Level 9.6 mg/dL (8.5-10.1) Test 07/19/18 06:07 Glucose (Fingerstick) 85 mg/dL (70-99) KUB Clinical indications: Abdominal pain with palpable mass in the right side. FINDINGS: There is mild fecal retention throughout the colon and rectosigmoid region. No obstructive bowel pattern is seen. Coarse popcorn-like calcifications are seen within the central pelvis consistent with uterine fibroids. A PEG tube is present. Surgical clips are seen within the epigastric region. IMPRESSION: No acute abnormality. Calcified uterine fibroids. Objective Assessment Acute on chronic resp failure s/p bronch 07/13. routine jewell GPC bacteremia POA on 07/13 (1 of 2 bottles) CoNS, likely contaminate h/o MDR /CRE PSAE HCAP Leucocytosis - improved SANCHEZ - better Dysphagia, on tube feedings h/x lung and laryngeal ca h/o c. diff in 2017 h/o MRSA Encephalopathy likely multifactorial Plan Plan of Care Zerbaxa (started 07/13) will d/c today Probiotics monitor labs Supportive care Hopefully home today Attending Co-Sign Attending Co-Sign The patient was seen and interviewed as well as examined at the bedside. The chart was reviewed. The case was discussed. Agree with the plan of care. RAISA VILLAR APRN Jul 19, 2018 12:18 GWEN MCQUEEN MD Jul 19, 2018 14:11
--- NOTE | 2018-07-19 13:36 | PDOC3 ---
Discharge Summary Date of Admission: Jul 13, 2018 Date of Discharge: Jul 19, 2018 Follow-Up: 1-2 days Admitting Diagnosis comment: discharge diagnosis Chief Complaint impression [id number] hypoxic and suspect hypercapnic respiratory failure secondary to recurrent pneumonia and mucus plugging, chronic trach Abnormal chest x-ray with bilateral infiltrates, more suggesting pneumonia. History of lung cancer and laryngeal cancer, status post chemo and radiation, status post tracheostomy. She has ongoing left lower lobe mass-like consolidation, which is most likely a residual tumor on a previous CT. 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 Mild dementia H/o HTN CKD stage 3 History of Present Illness History of Present Illness Pt seen and examined sitting in chair, chronic trach with trach shield, alert and cooperative Discussed with RN d/c today Vitals Vitals Vital Signs Date Time Temp Pulse Resp B/P (MAP) Pulse Ox O2 Delivery O2 Flow Rate FiO2 07/19/18 11:37 93 Tracheal Collar 8.0 07/19/18 11:00 97.9 101 18 122/71 (88) 97.9 Physical Exam Physical Exam GENERAL: Propped up in chair , alert, NAD, looks well HEENT: Oral cavity pink NECK: Trach to trach shield + secretions LUNGS: Clear anteriorly, nonlabored HEART: S1, S2, regular ABDOMEN: Soft, bowel sounds present, nontender. PEG tube intact. EXTREMITIES: No edema, no cyanosis. DERMATOLOGIC: Warm without generalized rash. NEUROLOGIC: Alert, responds appropriately Port - ok General: Alert, Cooperative, No acute distress Heart: Regular rate, Normal S1, Normal S2 Lungs: Clear, Other Abdomen: Soft, No tenderness Extremities: No clubbing, No cyanosis Skin: No rashes, No breakdown Brief Hospital Course Ms. Ch is a 78 old [sex] who presented with [pneumonia/ lung cancer ] CONDITION AT DISCHARGE: Improved Discharge Medications Current Medications Albuterol/ Ipratropium (Duoneb) 3 ml 1X ONCE NEB Last administered on at 07:24; Start 07/13/18 at 07:00; Stop 07/13/18 at 07:01; Status DC Ondansetron HCl (Zofran) 4 mg PRN Q8HRS PRN IV NAUSEA/VOMITING; Start at 08:30; Stop 07/14/18 at 08:29; Status DC Vancomycin HCl (Vanco Per Pharmacy) 1 each PRN DAILY PRN MC SEE COMMENTS Last administered on 07/16/18at 15:18; Start 07/13/18 at 08:30; Stop 07/17/18 at 13: 24; Status DC Piperacillin Sod/ Tazobactam Sod (Zosyn Per Pharmacy) 1 each PRN DAILY PRN MC SEE COMMENTS; Start 07/13/18 at 08:30; Stop 07/13/18 at 14:06; Status DC Levofloxacin/ Dextrose 150 ml @ 100 mls/hr 1X ONCE IV Last administered on at 09:51; Start 07/13/18 at 09:00; Stop 07/13/18 at 10:29; Status DC Albuterol Sulfate (Ventolin Neb Soln) 2.5 mg PRN Q3HRS PRN NEB SHORTNESS OF BREATH; Start 07/13/18 at 08:45; Stop 07/13/18 at 14:23; Status DC Sodium Chloride 500 ml @ 250 mls/hr 1X ONCE IV Last administered on at 08:42; Start 07/13/18 at 08:45; Stop 07/13/18 at 10:44; Status DC Piperacillin Sod/ Tazobactam Sod 3.375 gm/Sodium Chloride 50 ml @ 100 mls/hr 1X ONCE IV Last administered on 07/13/18at 08:54; Start 07/13/18 at 08:45; Stop 07/13/18 at 14:06; Status DC Vancomycin HCl 1.5 gm/Sodium Chloride 500 ml @ 250 mls/hr 1X ONCE IV Last administered on 07/13/18at 12:58; Start 07/13/18 at 09:00; Stop 07/13/18 at 10 :59; Status DC Piperacillin Sod/ Tazobactam Sod 3.375 gm/Sodium Chloride 50 ml @ 100 mls/hr Q6HRS IV Last administered on 07/13/18at 12:58; Start 07/13/18 at 13:00; Stop 07/13/18 at 14:06; Status DC Sodium Chloride (Normal Saline Flush) 3 ml QSHIFT PRN IV AFTER MEDS AND BLOOD DRAWS; Start 07/13/18 at 12:00 Lidocaine HCl 100 ml PRN 1X PRN MM MOUTH PAIN Last administered on 07/13/18at 12:03; Start 07/13/18 at 12:00; Stop 07/14/18 at 11:59; Status DC Lidocaine HCl (Lidocaine 1% 50ml Vial) 50 ml PRN 1X PRN INJ SEE COMMENTS Last administered on 07/13/18 12:04; Start 07/13/18 at 12:00; Stop 07/14/18 at 11 :59; Status DC Ceftolozane/ Tazobactam 750 mg/ Sodium Chloride 100 ml @ 100 mls/hr Q8HRS IV Last administered on 07/19/18 05:46; Start 07/13/18 at 14:30 Cetirizine HCl (ZyrTEC) 10 mg DAILY PO Last administered on 07/19/18 08:20; Start 07/13/18 at 15:00 Fentanyl (Duragesic 50mcg/ Hr Patch) 1 patch Q3DAYS TD Last administered on 08:21; Start 07/13/18 at 15:00 Lactobacillus Rhamnosus (Culturelle) 1 cap BID PO Last administered on 08:20; Start 07/13/18 at 21:00 Metoclopramide HCl (Reglan) 5 mg QIDACHS PO Last administered on 07/19/18 08: 21; Start 07/13/18 at 16:30 Ondansetron HCl (Zofran Odt) 4 mg QIDPRN PRN PEG NAUSEA/VOMITING; Start at 14:15 Oxycodone/ Acetaminophen (Percocet 7.5/ 325) 1 tab QID PRN PO SEVERE PAIN Last administered on 07/19/18 00:34; Start 07/13/18 at 14:15 Pantoprazole Sodium (Protonix) 40 mg BIDAC PO Last administered on 07/19/18 08 :20; Start 07/13/18 at 16:30 Cyproheptadine HCl (Periactin) 4 mg TID PO Last administered on 07/19/18 08:20 ; Start 07/13/18 at 15:00 Donepezil HCl (Aricept) 5 mg DAILY PEG Last administered on 07/19/18 08:22; Start 07/13/18 at 15:00 Gabapentin (Neurontin) 300 mg TID PO Last administered on 07/19/18 08:20; Start 07/13/18 at 21:00 Lidocaine (Lidoderm) 1 patch DAILY TD Last administered on 07/19/18 08:22; Start 07/13/18 at 15:00 Acetaminophen (Tylenol) 650 mg PRN Q6HRS PRN PO FEVER Last administered on 07/15 09:14; Start 07/13/18 at 14:15 Ondansetron HCl (Zofran) 4 mg PRN Q6HRS PRN IV NAUSEA/VOMITING Last administered on 07/19/18 10:03; Start 07/13/18 at 14:15 Morphine Sulfate (Morphine Sulfate) 2 mg PRN Q2HR PRN IV MODERATE TO SEVERE PAIN Last administered on 07/15/18 06:03; Start 07/13/18 at 14:15 Tramadol HCl (Ultram) 50 mg PRN Q6HRS PRN PO MILD TO MODERATE PAIN; Start at 14:15 Docusate Sodium (Colace) 100 mg PRN DAILY PRN PO CONSTIPATION Last administered on 07/17/18at 17:45; Start 07/13/18 at 14:15 Albuterol/ Ipratropium (Duoneb) 3 ml RTQID NEB Last administered on 07/19/18at 11:36; Start 07/13/18 at 16:00 Albuterol Sulfate (Ventolin Neb Soln) 2.5 mg PRN Q2HR PRN NEB SHORTNESS OF BREATH; Start 07/13/18 at 14:15 Guaifenesin (Mucinex) 600 mg BID PO Last administered on 07/19/18 08:20; Start 07/13/18 at 21:00 Heparin Sodium (Porcine) (Heparin Sodium) 5,000 unit Q8HRS SQ Last administered on 07/19/18at 05:55; Start 07/13/18 at 22:00 Vancomycin HCl 1 gm/Sodium Chloride 250 ml @ 250 mls/hr Q18H IV Last administered on 07/17/18 05:28; Start 07/14/18 at 06:00; Stop 07/17/18 at 13: 24; Status DC Vancomycin HCl (Vancomycin Trough Level) 1 each 1X ONCE MC ; Start 07/14/18 at 23:30; Stop 07/14/18 at 23:31; Status DC Vancomycin HCl (Vancomycin Trough Level) 1 each 1X ONCE MC ; Start 07/18/18 at 17:30; Stop 07/18/18 at 17:30; Status DC Dextrose (Dextrose 50%-Water Syringe) 25 gm STK-MED ONCE IV ; Start 07/15/18 at 06:41; Stop 07/15/18 at 06:42; Status DC Dextrose (Dextrose 50%-Water Syringe) 25 gm STK-MED ONCE IV ; Start 07/15/18 at 07:00; Stop 07/15/18 at 08:54; Status DC Albuterol/ Ipratropium (Duoneb) 3 ml RTQID NEB ; Start 07/16/18 at 20:00; Status UNV Senna (Senna Oral Syrup) 528 mg PRN DAILY PRN PEG CONSTIPATION Last administered on 07/18/18at 14:24; Start 07/18/18 at 14:00 Active Scripts Active Zerbaxa 1-0.5 Gram Vial (Ceftolozane/Tazobactam) 1.5 Gm Vial 0.75 Gm IV Q8HRS 7 Days Atenolol-Chlorthal 50-25 Tb (Atenolol/Chlorthalidone) 1 Each Tablet 1 Tab PEG DAILY Gabapentin 300 Mg Capsule 300 Mg PO TID 30 Days Culturelle (Lactobacillus Rhamnosus Gg) 1 Each Cap.sprink 1 Cap PO BID 30 Days Reported Lidocaine 1 Each Adh..patch 1 Each TP DAILY Cetirizine Hcl 10 Mg Tablet 1 Tab PO DAILY Losartan Potassium 100 Mg Tablet 100 Mg PO DAILY Pantoprazole Sodium 40 Mg Tablet.dr 40 Mg PEG BID Donepezil Hcl 5 Mg Tablet 5 Mg PEG BID Reglan (Metoclopramide Hcl) 10 Mg Tablet 5 Mg PO QIDACHS Cyproheptadine Hcl 2 Mg/5 Ml Syrup 10 Ml PEG TID Percocet 7.5-325 Mg Tablet (Oxycodone/Acetaminophen) 1 Each Tablet 1 Tab PO QID PRN FENTANYL 50mcg/hr (Fentanyl) 1 Each Patch.td72 1 Patch TP Q3DAYS Ondansetron Odt (Ondansetron) 4 Mg Tab.rapdis 4 Mg PEG QIDPRN PRN Vital Signs Vital Signs Date Time Temp Pulse Resp B/P (MAP) Pulse Ox O2 Delivery O2 Flow Rate FiO2 07/19/18 12:21 93 Tracheal Collar 8.0 07/19/18 11:00 97.9 101 18 122/71 (88) 97.9 Labs Laboratory Tests Test 07/18/18 00:52 07/18/18 04:00 07/18/18 06:45 07/18/18 12:05 Glucose (Fingerstick) 96 mg/dL (70-99) 84 mg/dL (70-99) 99 mg/dL (70-99) White Blood Count 9.7 x10^3/uL (4.0-11.0) Red Blood Count 4.73 x10^6/uL (3.50-5.40) Hemoglobin 11.9 g/dL (12.0-15.5) Hematocrit 37.3 % (36.0-47.0) Mean Corpuscular Volume 79 fL (79-100) Mean Corpuscular Hemoglobin 25 pg (25-35) Mean Corpuscular Hemoglobin Concent 32 g/dL (31-37) Red Cell Distribution Width 17.4 % (11.5-14.5) Platelet Count 324 x10^3/uL (140-400) Neutrophils (%) (Auto) 69 % (31-73) Lymphocytes (%) (Auto) 21 % (24-48) Monocytes (%) (Auto) 7 % (0-9) Eosinophils (%) (Auto) 3 % (0-3) Basophils (%) (Auto) 1 % (0-3) Neutrophils # (Auto) 6.7 x10^3uL (1.8-7.7) Lymphocytes # (Auto) 2.0 x10^3/uL (1.0-4.8) Monocytes # (Auto) 0.7 x10^3/uL (0.0-1.1) Eosinophils # (Auto) 0.3 x10^3/uL (0.0-0.7) Basophils # (Auto) 0.1 x10^3/uL (0.0-0.2) Sodium Level 141 mmol/L (136-145) Potassium Level 4.4 mmol/L (3.5-5.1) Chloride Level 102 mmol/L (98-107) Carbon Dioxide Level 31 mmol/L (21-32) Anion Gap 8 (6-14) Blood Urea Nitrogen 11 mg/dL (7-20) Creatinine 0.9 mg/dL (0.6-1.0) Estimated GFR (Cockcroft-Gault) 73.5 Glucose Level 80 mg/dL (70-99) Calcium Level 9.6 mg/dL (8.5-10.1) Test 07/18/18 18:07 07/18/18 20:20 07/19/18 00:05 07/19/18 04:10 Glucose (Fingerstick) 81 mg/dL (70-99) 73 mg/dL (70-99) 88 mg/dL (70-99) White Blood Count 7.7 x10^3/uL (4.0-11.0) Red Blood Count 4.39 x10^6/uL (3.50-5.40) Hemoglobin 10.8 g/dL (12.0-15.5) Hematocrit 34.5 % (36.0-47.0) Mean Corpuscular Volume 79 fL (79-100) Mean Corpuscular Hemoglobin 25 pg (25-35) Mean Corpuscular Hemoglobin Concent 31 g/dL (31-37) Red Cell Distribution Width 17.4 % (11.5-14.5) Platelet Count 346 x10^3/uL (140-400) Neutrophils (%) (Auto) 62 % (31-73) Lymphocytes (%) (Auto) 28 % (24-48) Monocytes (%) (Auto) 7 % (0-9) Eosinophils (%) (Auto) 3 % (0-3) Basophils (%) (Auto) 0 % (0-3) Neutrophils # (Auto) 4.8 x10^3uL (1.8-7.7) Lymphocytes # (Auto) 2.1 x10^3/uL (1.0-4.8) Monocytes # (Auto) 0.5 x10^3/uL (0.0-1.1) Eosinophils # (Auto) 0.2 x10^3/uL (0.0-0.7) Basophils # (Auto) 0.0 x10^3/uL (0.0-0.2) Sodium Level 138 mmol/L (136-145) Potassium Level 3.9 mmol/L (3.5-5.1) Chloride Level 99 mmol/L (98-107) Carbon Dioxide Level 31 mmol/L (21-32) Anion Gap 8 (6-14) Blood Urea Nitrogen 10 mg/dL (7-20) Creatinine 0.9 mg/dL (0.6-1.0) Estimated GFR (Cockcroft-Gault) 73.5 Glucose Level 75 mg/dL (70-99) Calcium Level 9.6 mg/dL (8.5-10.1) Test 07/19/18 06:07 Glucose (Fingerstick) 85 mg/dL (70-99) Laboratory Tests Test 07/18/18 18:07 07/18/18 20:20 07/19/18 00:05 07/19/18 04:10 Glucose (Fingerstick) 81 mg/dL (70-99) 73 mg/dL (70-99) 88 mg/dL (70-99) White Blood Count 7.7 x10^3/uL (4.0-11.0) Red Blood Count 4.39 x10^6/uL (3.50-5.40) Hemoglobin 10.8 g/dL (12.0-15.5) Hematocrit 34.5 % (36.0-47.0) Mean Corpuscular Volume 79 fL (79-100) Mean Corpuscular Hemoglobin 25 pg (25-35) Mean Corpuscular Hemoglobin Concent 31 g/dL (31-37) Red Cell Distribution Width 17.4 % (11.5-14.5) Platelet Count 346 x10^3/uL (140-400) Neutrophils (%) (Auto) 62 % (31-73) Lymphocytes (%) (Auto) 28 % (24-48) Monocytes (%) (Auto) 7 % (0-9) Eosinophils (%) (Auto) 3 % (0-3) Basophils (%) (Auto) 0 % (0-3) Neutrophils # (Auto) 4.8 x10^3uL (1.8-7.7) Lymphocytes # (Auto) 2.1 x10^3/uL (1.0-4.8) Monocytes # (Auto) 0.5 x10^3/uL (0.0-1.1) Eosinophils # (Auto) 0.2 x10^3/uL (0.0-0.7) Basophils # (Auto) 0.0 x10^3/uL (0.0-0.2) Sodium Level 138 mmol/L (136-145) Potassium Level 3.9 mmol/L (3.5-5.1) Chloride Level 99 mmol/L (98-107) Carbon Dioxide Level 31 mmol/L (21-32) Anion Gap 8 (6-14) Blood Urea Nitrogen 10 mg/dL (7-20) Creatinine 0.9 mg/dL (0.6-1.0) Estimated GFR (Cockcroft-Gault) 73.5 Glucose Level 75 mg/dL (70-99) Calcium Level 9.6 mg/dL (8.5-10.1) Test 07/19/18 06:07 Glucose (Fingerstick) 85 mg/dL (70-99) Allergies Allergies Coded Allergies Type Severity Reaction Last Updated Verified aspirin Allergy Intermediate hives 03/16/17 Yes I S O L A T I O N *CONTACT* Allergy Unknown 02/15/18 Yes Disposition/Orders: D/C to Home w/ HH Patient Instructions d/c planning 38 min CUONG SHIRLEY MD Jul 19, 2018 13:36
--- NOTE | 2018-07-19 13:37 | DISCH ---
DISCHARGE WITH HOME HEALTH DISCHARGE INFORMATION: Condition on Discharge: Guarded CODE STATUS: Code Status: Full HOME HEALTH: Face to Face: I certify this patient is under my care and that I, or a nurse practitioner or physician's drilling assistant working with me, had a face to face encounter that meets the physician face to face encounter requirements with this patient on []. Medical Complications: COPD Physical Therapy For: Evalulation/Treatment Occupational Therapy For: Evaluation/Treatment Speech Language Pathology For: Evaluation/Treatment Home Health Aide For: Self-care COOK 3 PASTRY For: Community Resources Pt Meets Homebound Status: Poor coordination w/ amb., Unsteady balance w/ amb, POST DISCHARGE ORDERS: Activity Instructions for Disc: Activity as tolerated Weight Bearing Status after Di: As tolerated DIET AFTER DISCHARGE: Cardiac Wound/Incision Care: No wound care needed CHECKS AFTER DISCHARGE: Checks after discharge: Check blood press - daily, Check your Temp as needed FOLLOW-UP: DC TO SNF LABS: BMP 06/22/18, Q 8 hours 750mg Zerbexa for MDRO PNA TREATMENT/EQUIPMENT ORDERS: Adaptive Equipment Issued: None Discharge Respiratory Equipmen: Oxygen, Nebulizer CERTIFICATION STATEMENT: Certification Statement: Certification Statement: Based on the above finding, I certify that this patient is confined to the home and needs intermittent prison care, physical therapy and/or speech therapy, or continues to need occupational therapy.~ This patient is under my care, and I have initiated the establishment of the plan of care.~ This patient will be followed by myself or a community physician who will periodically review the plan of care. Home Meds Active Scripts Ceftolozane/Tazobactam (Zerbaxa 1-0.5 Gram Vial) 1.5 Gm Vial, 0.75 GM IV Q8HRS for 7 Days, #11 EACH Prov:ARINA GALLEGOS MD 06/19/18 Atenolol/Chlorthalidone (ATENOLOL-CHLORTHAL 50-25 TB) 1 Each Tablet, 1 TAB PEG DAILY, #90 TAB 1 Refill Prov:RUDDY QUEZADA MD 06/15/18 Gabapentin (Gabapentin) 300 Mg Capsule, 300 MG PO TID for 30 Days, #90 CAP Prov:JAVIER IRVIN MD 02/18/18 Lactobacillus Rhamnosus Gg (CULTURELLE) 1 Each Cap.sprink, 1 CAP PO BID for 30 Days, #60 CAP Prov:JAVIER IRVIN MD 07/07/17 Reported Medications Lidocaine (Lidocaine) 1 Each Adh..patch, 1 EACH TP DAILY, PATCH 06/14/18 Cetirizine Hcl (CETIRIZINE HCL) 10 Mg Tablet, 1 TAB PO DAILY, #30 TAB 5 Refills 06/14/18 Losartan Potassium (LOSARTAN POTASSIUM) 100 Mg Tablet, 100 MG PO DAILY, TAB 06/14/18 Pantoprazole Sodium (PANTOPRAZOLE SODIUM) 40 Mg Tablet.dr, 40 MG PEG BID, TAB 03/11/17 Donepezil Hcl (DONEPEZIL HCL) 5 Mg Tablet, 5 MG PEG BID 03/11/17 Metoclopramide Hcl (REGLAN) 10 Mg Tablet, 5 MG PO QIDACHS 03/11/17 Cyproheptadine Hcl (CYPROHEPTADINE HCL) 2 Mg/5 Ml Syrup, 10 ML PEG TID, MISC 03/11/17 Oxycodone/Apap 7.5-325 (PERCOCET 7.5-325 MG TABLET) 1 Each Tablet, 1 TAB PO QID PRN for PAIN 03/11/17 Fentanyl (FENTANYL 50mcg/hr) 1 Each Patch.td72, 1 PATCH TP Q3DAYS 06/19/14 Ondansetron (ONDANSETRON ODT) 4 Mg Tab.rapdis, 4 MG PEG QIDPRN PRN for NAUSEA/ VOMITING 06/19/14 CUONG SHIRLEY MD Jul 19, 2018 13:37
[2018-07-19 15:00] VITALS: BP 123/73
[2018-07-19] MEDS ORDERED: HEPARIN PF 500 UNIT/5 ML DISP.SYRIN. IV ONE (18:45)
[2018-07-19 19:00] VITALS: BP 134/70
== END 2018-07-19 22:20 | disposition home health service (06) | DRG 853 ==
LOC: ER 06:51 → 1 WEST ICU 08:30 → 5 SOUTH 07-15 18:27
PROVIDERS: ADMIT Internal Medicine; ATTEND Internal Medicine
PROC: 0B9L8ZX Drainage of Left Lung, Via Natural or Artificial Opening Endoscopic, Diagnostic (ICD-10-PCS; principal; 2018-07-13)
PROC: 0B9F8ZX Drainage of Right Lower Lung Lobe, Via Natural or Artificial Opening Endoscopic, Diagnostic (ICD-10-PCS; 2018-07-13)
DX: A41.9 Sepsis, unspecified organism (principal); J18.9 Pneumonia, unspecified organism; J96.21 Acute and chronic respiratory failure with hypoxia; J96.22 Acute and chronic respiratory failure with hypercapnia; E43 Unspecified severe protein-calorie malnutrition; G93.49 Other encephalopathy; R64 Cachexia; I13.0 Hypertensive heart and chronic kidney disease with heart failure and stage 1 through stage 4 chronic kidney disease, or unspecified chronic kidney disease; J44.0 Chronic obstructive pulmonary disease with (acute) lower respiratory infection; N17.9 Acute kidney failure, unspecified; F03.90 Unspecified dementia, unspecified severity, without behavioral disturbance, psychotic disturbance, mood disturbance, and anxiety; R13.10 Dysphagia, unspecified; D63.8 Anemia in other chronic diseases classified elsewhere; I50.9 Heart failure, unspecified; N18.3 Chronic kidney disease, stage 3 (moderate); J98.09 Other diseases of bronchus, not elsewhere classified; T17.990A Other foreign object in respiratory tract, part unspecified in causing asphyxiation, initial encounter; G62.9 Polyneuropathy, unspecified; E78.5 Hyperlipidemia, unspecified; G47.30 Sleep apnea, unspecified; M19.90 Unspecified osteoarthritis, unspecified site; F41.9 Anxiety disorder, unspecified; Z51.5 Encounter for palliative care; Z92.3 Personal history of irradiation; Z86.14 Personal history of Methicillin resistant Staphylococcus aureus infection; Z87.01 Personal history of pneumonia (recurrent); Z85.118 Personal history of other malignant neoplasm of bronchus and lung; Z93.0 Tracheostomy status; Z93.1 Gastrostomy status; Z88.6 Allergy status to analgesic agent; Z85.21 Personal history of malignant neoplasm of larynx; Z82.49 Family history of ischemic heart disease and other diseases of the circulatory system; Z68.22 Body mass index [BMI] 22.0-22.9, adult; Z87.891 Personal history of nicotine dependence; Z99.81 Dependence on supplemental oxygen; Z92.21 Personal history of antineoplastic chemotherapy
CPT/HCPCS: 31622; 31720; 36415; 36600; 70450; 71045; 74018; 76705; 80048; 80202; 82805; 82962; 83605; 83880; 84145; 84484; 85025; 87040; 87070; 87102; 87116; 87186; 87205; 87641; 87804; 88112; 88305; 93005; 94640; 94760; 96365; 96375; J1644; J1956; J2270; J2405; J2543; J3370; J7040; J7042; J7050; J7620; J8597; 97110; 97530; 99285-25; C9452; J0695; J7030

== ENCOUNTER 2018-11-03 19:52 | Emergency (ER) | payer MEDICARE, OTHER ==
[~2018-11-03] VITALS: Ht 157.5 cm; Wt 54.0 kg
[~2018-11-03 19:52] MED LIST changes: +ALBU2.5V8 IH; -AMLO10TA6 PO; +AMLO10TA8 PO; +AMLO5TAB10 PEG; +AMLO5TAB10 PO; -AMLO5TAB7 PEG; +DOXY100T PO; +GABA300C18 PO; -GABA300C8 PO; +LOSA100T14 PO; -LOSA100T7 PO; -OXYC-323 PEG; -OXYC-327 PO; -OXYC-328 PEG; +OXYC1TAB15 PEG; +OXYC1TAB19 PO; +OXYC1TAB22 PEG; -PROAIR HFA8.5 GM IH
[2018-11-03] MEDS ORDERED: IPRATRPIUM/ALBUTEROL 0.5/2.5MG 3 ML NEBU. NEB ONE (20:15)
--- NOTE | 2018-11-03 20:46 | RAD ---
Indication:Dyspnea TECHNIQUE:Portable AP chest X-ray COMPARISON:10/19/2018 FINDINGS: Stable position of tracheostomy tube and right chest wall Chemo-Port. Heart is normal in size. Diffuse bilateral coarse interstitial opacities are seen. No focal consolidation. No pneumothorax or effusion. Lungs are hyperinflated. Visualized bony thorax within normal limits. IMPRESSION: Findings of COPD. Superimposed atypical/viral infection or interstitial pulmonary edema. Electronically signed by: Collin Glasgow DO (11/03/2018 8:43 PM) [facility]
[2018-11-03 21:05] LABS: BASO # 0.1 x10^3/uL (0.0-0.2); BASO % 1 % (0-3); EOS # 0.3 x10^3/uL (0.0-0.7); EOS % 3 % (0-3); HEMATOCRIT 31.7 % (36.0-47.0); HEMOGLOBIN 9.6 g/dL (12.0-15.5); LYMPH # 2.1 x10^3/uL (1.0-4.8); LYMPH % 18 % (24-48); MEAN CORPUSCULAR HEMOGLOBIN 24 pg (25-35); MEAN CORPUSCULAR HGB CONC 30 g/dL (31-37); MEAN CORPUSCULAR VOLUME 79 fL (79-100); MONO # 0.9 x10^3/uL (0.0-1.1); MONO % 8 % (0-9); NEUT # 8.5 x10^3uL (1.8-7.7); NEUT % 71 % (31-73); PLATELET COUNT 381 x10^3/uL (140-400); RED BLOOD COUNT 3.99 x10^6/uL (3.50-5.40); RED CELL DISTRIBUTION WIDTH 18.2 % (11.5-14.5); WHITE BLOOD COUNT 11.9 x10^3/uL (4.0-11.0)
--- NOTE | 2018-11-03 21:13 | PHYS DOC ---
Past Medical History Past Medical History: Cancer, Dementia, Hypertension, MRSA, Pneumonia, Other Additional Past Medical Histor: Lung CA Past Surgical History: Other Additional Past Surgical Histo: Cataract,PEG tube,CA trach,PORT Alcohol Use: None Drug Use: None Adult General Chief Complaint Chief Complaint: SHORTNESS OF BREATH HPI HPI Patient is a 78 year old [f__sex] who presents with [] Review of Systems Review of Systems Constitutional: Denies fever or chills [] Eyes: Denies change in visual acuity, redness, or eye pain [] HENT: Denies nasal congestion or sore throat [] Respiratory: Denies cough or shortness of breath [] Cardiovascular: No additional information not addressed in HPI [] GI: Denies abdominal pain, nausea, vomiting, bloody stools or diarrhea [] : Denies dysuria or hematuria [] Musculoskeletal: Denies back pain or joint pain [] Integument: Denies rash or skin lesions [] Neurologic: Denies headache, focal weakness or sensory changes [] Endocrine: Denies polyuria or polydipsia [] All other systems were reviewed and found to be within normal limits, except as documented in this note. Current Medications Current Medications Current Medications Medications (Trade) Dose Ordered Sig/Yuliana Start Time Stop Time Status Last Admin Dose Admin Albuterol/ Ipratropium (Duoneb) 3 ml 1X ONCE 11/03/18 20:15 11/03/18 20:19 DC 11/03/18 20:36 3 ML Fentanyl Citrate (Fentanyl 2ml Vial) 100 mcg STK-MED ONCE 11/03/18 23:42 11/03/18 23:43 DC Ondansetron HCl (Zofran) 4 mg 1X ONCE 11/03/18 23:30 11/03/18 23:31 DC 11/04/18 00:01 4 MG Allergies Allergies Allergies Coded Allergies Type Severity Reaction Last Updated Verified aspirin Allergy Intermediate hives 03/16/17 Yes I S O L A T I O N *CONTACT* Allergy Unknown 08/15/18 Yes Physical Exam Physical Exam Constitutional: Well developed, well nourished, no acute distress, non-toxic appearance. [] HENT: Normocephalic, atraumatic, bilateral external ears normal, oropharynx moist, no oral exudates, nose normal. [] Eyes: PERRLA, EOMI, conjunctiva normal, no discharge. [] Neck: Normal range of motion, no tenderness, supple, no stridor. [] Cardiovascular:Heart rate regular rhythm, no murmur [] Lungs & Thorax: Bilateral breath sounds clear to auscultation [] Abdomen: Bowel sounds normal, soft, no tenderness, no masses, no pulsatile masses. [] Skin: Warm, dry, no erythema, no rash. [] Back: No tenderness, no CVA tenderness. [] Extremities: No tenderness, no cyanosis, no clubbing, ROM intact, no edema. [] Neurologic: Alert and oriented X 3, normal motor function, normal sensory function, no focal deficits noted. [] Psychologic: Affect normal, judgement normal, mood normal. [] Current Patient Data Vital Signs Vital Signs Date Time Temp Pulse Resp B/P (MAP) Pulse Ox O2 Delivery O2 Flow Rate FiO2 11/03/18 20:40 100 Nasal Cannula 5.0 11/03/18 20:03 98.4 104 26 143/78 (99) 98.4 Lab Values Laboratory Tests Test 11/03/18 21:00 11/03/18 21:41 White Blood Count 11.9 x10^3/uL (4.0-11.0) H Red Blood Count 3.99 x10^6/uL (3.50-5.40) Hemoglobin 9.6 g/dL (12.0-15.5) L Hematocrit 31.7 % (36.0-47.0) L Mean Corpuscular Volume 79 fL (79-100) Mean Corpuscular Hemoglobin 24 pg (25-35) L Mean Corpuscular Hemoglobin Concent 30 g/dL (31-37) L Red Cell Distribution Width 18.2 % (11.5-14.5) H Platelet Count 381 x10^3/uL (140-400) Neutrophils (%) (Auto) 71 % (31-73) Lymphocytes (%) (Auto) 18 % (24-48) L Monocytes (%) (Auto) 8 % (0-9) Eosinophils (%) (Auto) 3 % (0-3) Basophils (%) (Auto) 1 % (0-3) Neutrophils # (Auto) 8.5 x10^3uL (1.8-7.7) H Lymphocytes # (Auto) 2.1 x10^3/uL (1.0-4.8) Monocytes # (Auto) 0.9 x10^3/uL (0.0-1.1) Eosinophils # (Auto) 0.3 x10^3/uL (0.0-0.7) Basophils # (Auto) 0.1 x10^3/uL (0.0-0.2) Sodium Level 141 mmol/L (136-145) Potassium Level 4.0 mmol/L (3.5-5.1) Chloride Level 103 mmol/L (98-107) Carbon Dioxide Level 35 mmol/L (21-32) H Anion Gap 3 (6-14) L Blood Urea Nitrogen 20 mg/dL (7-20) Creatinine 0.9 mg/dL (0.6-1.0) Estimated GFR (Cockcroft-Gault) 73.5 BUN/Creatinine Ratio 22 (6-20) H Glucose Level 92 mg/dL (70-99) Lactic Acid Level 1.3 mmol/L (0.4-2.0) Calcium Level 9.1 mg/dL (8.5-10.1) Magnesium Level 3.6 mg/dL (1.8-2.4) H Total Bilirubin 0.2 mg/dL (0.2-1.0) Aspartate Amino Transferase (AST) 22 U/L (15-37) Alanine Aminotransferase (ALT) 14 U/L (14-59) Alkaline Phosphatase 68 U/L (46-116) Creatine Kinase 39 U/L (26-192) Creatine Kinase MB (Mass) < 0.5 ng/mL (0.0-3.6) Creatine Kinase MB Relative Index % (0-4) Troponin I Quantitative 0.021 ng/mL (0.000-0.055) YG-Ckp-H-Type Natriuretic Peptide 256 pg/mL (0-449) Total Protein 8.6 g/dL (6.4-8.2) H Albumin 2.6 g/dL (3.4-5.0) L Albumin/Globulin Ratio 0.4 (1.0-1.7) L Influenza Type A Antigen Negative (NEGATIVE) Influenza Type B Antigen Negative (NEGATIVE) Urine Collection Type Unknown Urine Color Yellow Urine Clarity Clear Urine pH 8.0 Urine Specific [place] 1.020 Urine Protein 30 mg/dL (NEG-TRACE) Urine Glucose (UA) Negative mg/dL (NEG) Urine Ketones (Stick) Negative mg/dL (NEG) Urine Blood Negative (NEG) Urine Nitrite Negative (NEG) Urine Bilirubin Negative (NEG) Urine Urobilinogen Dipstick 0.2 mg/dL (0.2 mg/dL) Urine Leukocyte Esterase Small (NEG) Urine RBC 0 /HPF (0-2) Urine WBC Rare /HPF (0-4) Urine Squamous Epithelial Cells Mod /LPF Urine Bacteria Few /HPF (0-FEW) Urine Hyaline Casts Few /HPF Laboratory Tests 11/03/18 21:00 Laboratory Tests 11/03/18 21:00 EKG EKG @ 2006 Sinus tachycardia t 108bpm, NO ST elevation, J point elevation noted to V3, nonspecific t wave inversion noted to aVL, compared to prior EKG per MUSE review from 10/19/18 with change to V3, otherwise without significant change Radiology/Procedures Radiology/Procedures PROCEDURE: PORTABLE CHEST 1V Indication:Dyspnea TECHNIQUE:Portable AP chest X-ray COMPARISON:10/19/2018 FINDINGS: Stable position of tracheostomy tube and right chest wall Chemo-Port. Heart is normal in size. Diffuse bilateral coarse interstitial opacities are seen. No focal consolidation. No pneumothorax or effusion. Lungs are hyperinflated. Visualized bony thorax within normal limits. IMPRESSION: Findings of COPD. Superimposed atypical/viral infection or interstitial pulmonary edema. Electronically signed by: Collin Glasgow DO (11/03/2018 8:43 PM) [facility] Course & Med Decision Making Course & Med Decision Making Pertinent Labs and Imaging studies reviewed. (See chart for details) [] Dragon Disclaimer Dragon Disclaimer This electronic medical record was generated, in whole or in part, using a voice recognition dictation system. Departure Departure Impression: Primary Impression: Bronchitis Additional Impressions: Flank pain Nausea Disposition: 01 HOME, SELF-CARE Condition: STABLE Referrals: CATHERINE MOSCOSO MD (PCP) Patient Instructions: Acute Bronchitis, [id number], Flank Pain, Hkqp-by-Ctel , Nausea, Adult, Vzey-sg-Fovy Scripts Azithromycin (AZITHROMYCIN ORAL SUSP) 200 Mg/5 Ml Susp.recon 12 ML PEG UD, #100 ML Take 12mls the first day, then take 6mls for day 2-5. Prov: PERRY PAGAN DO 11/04/18 Prednisolone (PREDNISOLONE) 15 Mg/5 Ml Solution 10 ML PEG DAILY, #5 MISC Prov: PERRY PAGAN DO 11/04/18 Ondansetron (ONDANSETRON ODT) 4 Mg Tab.rapdis 1 TAB PO PRN Q6-8HRS PRN for NAUSEA, #16 TAB Prov: PERRY PAGAN DO 11/04/18 Problem Qualifiers PERRY PAGAN DO Nov 03, 2018 21:13
[2018-11-03 21:15] LABS: CALCIUM 9.1 mg/dL (8.5-10.1); CREATININE 0.9 mg/dL (0.6-1.0); GFR 73.5
[2018-11-03 21:21] LABS: ALBUMIN 2.6 g/dL (3.4-5.0); ALBUMIN/GLOBULIN RATIO 0.4 (1.0-1.7); MAGNESIUM 3.6 mg/dL (1.8-2.4); TOTAL BILIRUBIN 0.2 mg/dL (0.2-1.0); TOTAL PROTEIN 8.6 g/dL (6.4-8.2)
[2018-11-03 21:23] LABS: INFLUENZA A PATIENT NEGATIVE (NEGATIVE); INFLUENZA B PATIENT NEGATIVE (NEGATIVE)
[2018-11-03 21:30] LABS: CREATINE KINASE 39 U/L (26-192)
[2018-11-03 21:48] LABS: BILIRUBIN,URINE NEGATIVE (NEG); CLARITY,URINE CLEAR; COLOR,URINE YELLOW; NITRITE,URINE NEGATIVE (NEG); PROTEIN,URINE 30 mg/dL (NEG-TRACE); UROBILINOGEN,URINE 0.2 mg/dL (0.2 mg/dL)
[2018-11-03 22:06] LABS: BACTERIA,URINE FEW /HPF (0-FEW); RBC,URINE 0 /HPF (0-2); SQUAMOUS EPITHELIAL CELL,UR MOD /LPF; WBC,URINE RARE /HPF (0-4)
[2018-11-03 22:07] LABS: HYALINE CASTS, URINE FEW /HPF
[2018-11-03 23:19] VITALS: BP 165/81
[2018-11-03] MEDS ORDERED: ONDANSETRON PF 4 MG/2 ML VIAL. IV ONE (23:30)
[2018-11-03] MEDS ORDERED: fentaNYL PF VIAL 100 MCG/2 ML VIAL ONE (23:42)
[2018-11-03] MEDS ORDERED: fentaNYL PF VIAL 100 MCG/2 ML VIAL IV ONE (23:45)
--- NOTE | 2018-11-04 00:12 | RAD ---
PQRS Compliance Statement: One or more of the following individualized dose reduction techniques were utilized for this examination: 1. Automated exposure control 2. Adjustment of the mA and/or kV according to patient size 3. Use of iterative reconstruction technique CT abdomen/pelvis without contrast 11/03/2018 11:42 PM INDICATION: Right flank pain COMPARISON: CT chest, abdomen/pelvis July 20, 2017 TECHNIQUE: Multiple axial CT images of the abdomen and pelvis were obtained without intravenous contrast. Coronal and sagittal reformats are provided. FINDINGS: There is cylindrical bronchiectasis in the lower lobes with focal airspace consolidation the medial left lower lobe which may represent pulmonary infiltrate in the appropriate clinical setting. There is mucous plugging and tree-in-bud nodular airspace disease in the bilateral lower lobes compatible with bronchiolitis. Heart size is within normal limits. Evaluation of the solid abdominal viscera is limited by lack of intravenous contrast. No suspicious hepatic lesion is identified. Gallbladder is normal in appearance. Spleen and bilateral adrenal glands are normal in appearance. There is dilatation of the main pancreatic duct measuring up to 6 mm. Definite pancreatic mass is not visualized. Abdominal aorta is normal in course and caliber with dense calcified atheromatous plaque. There are no pathologically enlarged lymph nodes in abdomen and pelvis. There is no free fluid or free intraperitoneal air. Kidneys are symmetric in appearance. No definite renal calculi are visualized. Evaluation of the ureters is limited due to the lack of intraperitoneal fat. No definite calculi are identified along the course of the ureters or urinary bladder. Urinary bladder is within normal limits given degree of distention. Limited evaluation of the bowel secondary to lack of oral contrast. Gastrostomy tube is present. Postsurgical changes are identified in the epigastric region. Small and large bowel are normal in caliber. No evidence for bowel obstruction or inflammation. Normal appendix is suspected, however not confirmed. No pericecal inflammatory changes are identified. Calcified uterine fibroids are identified within the uterus. The there is mild dextroconvex curvature of the lumbar spine. There is osseous fusion of L5-S1. IMPRESSION: 1. Bronchiectasis, bronchitis and airspace consolidation the medial left lower lobe most favors pulmonary infiltrate in the appropriate clinical setting. Consideration may be given for atelectasis secondary to mucous plugging. Airspace consolidation in the right lower lobe may represent subsegmental atelectasis. Tree-in-bud nodular airspace disease in the bilateral lower lobes most favors respiratory bronchiolitis. 2. No definite calculi are identified in the kidneys, ureters or urinary bladder within limitations provided above. Appendix is not definitively visualized. However there are no pericecal inflammatory changes are noted. If there is persistent clinical concern, further evaluation with contrast (oral and IV contrast) imaging may be of benefit. 3. Dilated main pancreatic duct measuring up to 6 mm. Further characterization with MRCP is recommended. Electronically signed by: Genesis Trent MD (11/04/2018 12:09 AM) [facility]
[2018-11-04] MEDS ORDERED: HEPARIN PF 500 UNIT/5 ML DISP.SYRIN. IV ONE (00:45)
[2018-11-04] MEDS ORDERED: ONDA4TAB12 PO (00:45)
[2018-11-04] MEDS ORDERED: PRED15SO24 PEG (00:45)
[2018-11-04] MEDS ORDERED: AZIT200S4 PEG (00:45)
--- NOTE | 2018-11-04 08:05 | EKG ---
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
== END 2018-11-04 00:59 | disposition home or self-care (01) ==
LOC: ER 19:52
DX: J40 Bronchitis, not specified as acute or chronic (principal); R10.9 Unspecified abdominal pain; R11.0 Nausea; I10 Essential (primary) hypertension; F03.90 Unspecified dementia, unspecified severity, without behavioral disturbance, psychotic disturbance, mood disturbance, and anxiety; Z91.041 Radiographic dye allergy status; Z88.6 Allergy status to analgesic agent
CPT/HCPCS: 36415; 71045; 74176; 80053; 81001; 82553; 83605; 83735; 83880; 84484; 85025; 87040; 87086; 87804; 93005; 94640; 99284; J2405; J3010; J7620

== ENCOUNTER 2018-11-05 10:37 | Emergency (ER) | payer MEDICARE, OTHER ==
[~2018-11-05] VITALS: Ht 175.3 cm; Wt 54.0 kg
[~2018-11-05 10:37] MED LIST changes: +AZIT200S4 PEG; +ONDA4TAB12 PO; +PRED15SO24 PEG
[2018-11-05] MEDS ORDERED: MORPHINE SULFATE 4 MG/ML VIAL. IM ONE (11:15)
[2018-11-05 12:00] VITALS: BP 173/89
[2018-11-05] MEDS ORDERED: IOHEXOL 300 MG/ML 50 ML VIAL. PO ONE (12:00)
[2018-11-05] MEDS ORDERED: CONTRAST GIVEN. MC PRN (12:00)
--- NOTE | 2018-11-05 12:24 | RAD ---
MARLY, 11/05/2018: HISTORY: Gastric tube check A supine view of the abdomen was obtained following injection of nonionic contrast into the patient's gastrostomy tube as requested. The tube extends into the distal stomach. The injected contrast extends from the stomach into the proximal small bowel. No contrast extravasation is seen. The abdominal gas pattern is unremarkable. There are coarse pelvic calcifications compatible with uterine fibroids. Surgical clips are projected over the GE junction region. IMPRESSION: The gastrostomy tube extends into the distal stomach. Electronically signed by: Jarret Gallegos MD (11/05/2018 12:21 PM) [facility]
--- NOTE | 2018-11-05 12:49 | PHYS DOC ---
Past Medical History Past Medical History: Cancer, Dementia, Hypertension, MRSA, Pneumonia, Other Additional Past Medical Histor: Lung CA Past Surgical History: Other Additional Past Surgical Histo: Cataract,PEG tube,CA trach,PORT Alcohol Use: None Drug Use: None Adult General Chief Complaint Chief Complaint: GTUBE REPLACEMENT/MALFUNCTION HPI HPI Patient is a 78 year old female presents with G-tube dislodged occurred last night Current Medications Current Medications Current Medications Medications (Trade) Dose Ordered Sig/Yuliana Start Time Stop Time Status Last Admin Dose Admin Info (CONTRAST GIVEN -- Rx MONITORING) 1 each PRN DAILY PRN 11/05/18 12:00 11/07/18 11:59 11/05/18 12:17 1 EACH Iohexol (Omnipaque 300 Mg/ml) 50 ml 1X ONCE 11/05/18 12:00 11/05/18 12:01 DC 11/05/18 12:16 50 ML Morphine Sulfate (Morphine Sulfate) 2 mg 1X ONCE 11/05/18 11:15 11/05/18 11:16 DC 11/05/18 11:08 2 MG Allergies Allergies Allergies Coded Allergies Type Severity Reaction Last Updated Verified aspirin Allergy Intermediate hives 03/16/17 Yes I S O L A T I O N *CONTACT* Allergy Unknown 08/15/18 Yes Physical Exam Physical Exam Constitutional: Well developed, mild cachexia no acute distress, non-toxic appearance. [] HENT: Normocephalic, atraumatic, bilateral external ears normal, oropharynx moist, no oral exudates, nose normal. [] Eyes: PERRLA, EOMI, conjunctiva normal, no discharge. [] Neck: Normal range of motion, no tenderness, supple, no stridor. [] Lungs & Thorax: Mild increase in respiratory effort Abdomen: Bowel sounds normal, soft, minimal tenderness around the site of the G- tube there is some sort of excoriated skin there is a patent gastrostomy site Skin: See above Neurologic: Alert and oriented X 3, normal motor function, normal sensory function, no focal deficits noted. [] Psychologic: Affect normal, judgement normal, mood normal. [] Current Patient Data Vital Signs Vital Signs Date Time Temp Pulse Resp B/P (MAP) Pulse Ox O2 Delivery O2 Flow Rate FiO2 11/05/18 11:08 18 97 Nasal Cannula 5.0 11/05/18 10:59 98.0 119 173/89 (117) 98.0 EKG EKG [] Radiology/Procedures Radiology/Procedures [] Course & Med Decision Making Course & Med Decision Making Pertinent Labs and Imaging studies reviewed. (See chart for details) []Gastrostomy tube was easily replaced by me, hole looked a little tight she had a 20 [place] so I put an 18 [place] without any difficulty and confirmed placement with KUB family and patient were reassured and they voiced understanding of the instructions Dragon Disclaimer Dragon Disclaimer This electronic medical record was generated, in whole or in part, using a voice recognition dictation system. Departure Departure Impression: Primary Impression: PEG tube malfunction Disposition: HOME, SELF-CARE Condition: STABLE Referrals: CATHERINE MOSCOSO MD (PCP) Patient Instructions: Gastrostomy Tube, Adult KELVIN PICHARDO MD Nov 05, 2018 12:49
== END 2018-11-05 12:49 | disposition home or self-care (01) ==
LOC: ER 10:37
DX: K94.23 Gastrostomy malfunction (principal); I10 Essential (primary) hypertension; F03.90 Unspecified dementia, unspecified severity, without behavioral disturbance, psychotic disturbance, mood disturbance, and anxiety; Z88.6 Allergy status to analgesic agent; Z91.041 Radiographic dye allergy status; Y83.8 Other surgical procedures as the cause of abnormal reaction of the patient, or of later complication, without mention of misadventure at the time of the procedure; Y92.89 Other specified places as the place of occurrence of the external cause
CPT/HCPCS: 43762; 74018; 96372; 99284; J2270; Q9967

== ENCOUNTER 2018-12-02 13:17 | Inpatient (IN) | payer MEDICARE, OTHER ==
[~2018-12-02] VITALS: Ht 175.3 cm; Wt 49.5 kg
[2018-12-02] MEDS ORDERED: IPRATRPIUM/ALBUTEROL 0.5/2.5MG 3 ML NEBU. ONE (15:16)
[2018-12-02 15:44] LABS: BASO # 0.1 x10^3/uL (0.0-0.2); BASO % 0 % (0-3); EOS # 0.1 x10^3/uL (0.0-0.7); EOS % 1 % (0-3); HEMATOCRIT 31.1 % (36.0-47.0); HEMOGLOBIN 9.1 g/dL (12.0-15.5); LYMPH # 2.1 x10^3/uL (1.0-4.8); LYMPH % 15 % (24-48); MEAN CORPUSCULAR HEMOGLOBIN 22 pg (25-35); MEAN CORPUSCULAR HGB CONC 29 g/dL (31-37); MEAN CORPUSCULAR VOLUME 76 fL (79-100); MONO # 1.1 x10^3/uL (0.0-1.1); MONO % 8 % (0-9); NEUT # 10.9 x10^3uL (1.8-7.7); NEUT % 76 % (31-73); PLATELET COUNT 423 x10^3/uL (140-400); RED BLOOD COUNT 4.11 x10^6/uL (3.50-5.40); RED CELL DISTRIBUTION WIDTH 17.9 % (11.5-14.5); WHITE BLOOD COUNT 14.3 x10^3/uL (4.0-11.0)
--- NOTE | 2018-12-02 15:47 | RAD ---
Indication:cough TECHNIQUE:Portable AP chest X-ray COMPARISON:11/03/2018 FINDINGS: Tracheostomy tube noted. Stable position of right chest wall Chemo-Port with its tip in the SVC. Heart is normal in size. Diffuse bilateral interstitial opacities are seen. Patchy opacities in the right lung base. No pneumothorax or pleural effusion. Visualized bony thorax is within normal limits. IMPRESSION: Bilateral interstitial opacities may be secondary to atypical/viral infection or interstitial pulmonary edema. Patchy opacities in the right lung base may be secondary to aspiration or pneumonia. Electronically signed by: Collin Glasgow DO (12/02/2018 3:44 PM) [facility]
[2018-12-02 16:04] LABS: CREATININE 0.9 mg/dL (0.6-1.0); GFR 73.5; POTASSIUM 4.6 mmol/L (3.5-5.1)
[2018-12-02 16:10] LABS: ALBUMIN 2.8 g/dL (3.4-5.0); ALBUMIN/GLOBULIN RATIO 0.5 (1.0-1.7); PLT ESTIMATE INCREASED (ADEQUATE); TOTAL BILIRUBIN 0.3 mg/dL (0.2-1.0); TOTAL PROTEIN 8.2 g/dL (6.4-8.2)
[2018-12-02 16:11] LABS: ANISOCYTOSIS SLIGHT; HYPOCHROMIA MOD
[2018-12-02 16:14] LABS: MICROCYTOSIS MOD
--- NOTE | 2018-12-02 16:33 | PDOC1 ---
History and Physical Date of Admission Date of Admission DATE: 12/02/18 TIME: 16:33 Identification/Chief Complaint Chief Complaint seen in er ,patient has history of lung cancer and tracheostomy with recurrent infection. 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 The patient came in with shortness of breath, low-grade fever, leukocytosis. no chest pain at this time but primarily has cough with fever and an x-ray c/w pneumonia. has laryngeal cancer, history of dysphagia, PEG tube in place, tracheostomy in place. 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 Past Medical History Past Medical History Past Medical History Past Medical History: Cancer, Dementia, Hypertension, MRSA, Pneumonia, Other Additional Past Medical Histor: Lung CA Past Surgical History: Other Additional Past Surgical Histo: Cataract,PEG tube,CA trach,PORT Alcohol Use: None Drug Use: None Cardiovascular: HTN Pulmonary: COPD, Previously Intubated, Pneumonia, Other CENTRAL NERVOUS SYSTEM: Other GI: Other Heme/Onc: Anemia NOS, Cancer Hepatobiliary: No pertinent hx Psych: No pertinent hx Musculoskeletal: Osteoarthritis Rheumatologic: No pertinent hx Infectious disease: No pertinent hx Renal/: No pertinent hx Endocrine: No pertinent hx Past Surgical History Past Surgical History: Cataract Removal, Other Family History Family History: Chronic Fatigue, Heart Disease Social History Smoke: Quit ALCOHOL: none Drugs: None Current Medications Current Medications Current Medications Albuterol/ Ipratropium (Duoneb) 3 ml STK-MED ONCE .ROUTE ; Start 12/02/18 at 15: 16; Stop 12/02/18 at 15:17; Status DC Active Scripts Active Atenolol-Chlorthal 50-25 Tb (Atenolol/Chlorthalidone) 1 Each Tablet 1 Tab PEG DAILY Culturelle (Lactobacillus Rhamnosus Gg) 1 Each Cap.sprink 1 Cap PO BID 30 Days Reported Gabapentin (Gabapentin) 300 Mg Capsule 300 Mg PO BID PRN Amlodipine Besylate 5 Mg Tablet 5 Mg PO DAILY Pantoprazole Sodium 40 Mg Tablet.dr 40 Mg PEG BID Donepezil Hcl 5 Mg Tablet 5 Mg PEG BID Reglan (Metoclopramide Hcl) 10 Mg Tablet 5 Mg PO QIDACHS Cyproheptadine Hcl 2 Mg/5 Ml Syrup 10 Ml PEG TID Percocet 7.5-325 Mg Tablet (Oxycodone/Acetaminophen) 1 Each Tablet 1 Tab PO QID PRN FENTANYL 50mcg/hr (Fentanyl) 1 Each Patch.td72 1 Patch TP Q3DAYS Ondansetron Odt (Ondansetron) 4 Mg Tab.rapdis 4 Mg PEG QIDPRN PRN Allergies Allergies: Coded Allergies: aspirin (Verified Allergy, Intermediate, hives, 03/16/17) I S O L A T I O N *CONTACT* (Verified Allergy, Unknown, 08/15/18) ROS Review of System Musculoskeletal: Denies back pain or joint pain [] Integument: Denies rash or skin lesions [] Neurologic: Denies headache, focal weakness or sensory changes [] Endocrine: Denies polyuria or polydipsia [] 14 pt systems were reviewed and found to be within normal limits, except as documented General: YES: Chills, Fatigue, Malaise PSYCHOLOGICAL ROS: YES: Disorientation; No: Anxiety, Behavioral Disorder, Concentration difficultie, Decreased libido , Depression, Hallucinations, Hostility, Irritablity, Memory difficulties, Mood Swings, Obsessive thoughts, Physical abuse, Sexual abuse, Sleep disturbances, Suicidal ideation, Other Eyes: Yes Decreased vision; No Blurry vision, No Double vision, No Dry eyes, No Excessive tearing, No Eye Pain, No Itchy Eyes, No Loss of vision, No Photophobia, No Scotomata, No Uses contacts, No Uses glasses, No Other ALLERGY AND IMMUNOLOGY: No: Hives, Insect Bite Sensitivity, Itchy/Watery Eyes, Nasal Congestion, Post Nasal Drip, Seasonal Allergies, Other Hematological and Lymphatic: No: Bleeding Problems, Blood Clots, Blood Transfusions, Brusing, Night Sweats, Pallor, Swollen Lymph Nodes, Other ENDOCRINE: No: Breast Changes, Galactorrhea, Hair Pattern Changes, Hot Flashes , Malaise/lethargy, Mood Swings, Palpitations, Polydipsia/polyuria, Skin Changes , Temperature Intolerance, Unexpected Weight Changes, Other Respiratory: YES: Shortness of breath, Sputum Changes Cardiovascular: yes Paroxysmal Noc. Dyspnea Gastrointestinal: No Nausea, No Vomiting, No Abdominal Pain, No Diarrhea, No Constipation, No Melena, No Hematochezia, No Other Genitourinary: No Dysuria, No Frequency, No Incontinence, No Hematuria, No Retention, No Discharge, No Urgency, No Pain, No Flank Pain, No Other, No , No , No , No , No , No , No Musculoskeletal: No Gait Disturbance, No Joint Pain, No Joint Stiffness, No Joint Swelling, No Muscle Pain, No Muscular Weakness, No Pain In:, No Swelling In:, No Other Neurological: No Behavorial Changes, No Bowel/Bladder ControlChng, No Confusion , No Dizziness, No Gait Disturbance, No Headaches, No Impaired Coord/balance, No Memory Loss, No Numbness/Tingling, No Seizures, No Speech Problems, No Tremors, No Visual Changes, No Weakness, No Other Physical Exam Physical Exam Constitutional:malnourished, thin, mild acute distress, non-toxic appearance. [ ] HENT: Normocephalic, atraumatic, bilateral external ears normal, oropharynx moist, no oral exudates, nose normal. [] Eyes: PERRLA, EOMI, conjunctiva normal, no discharge. [] Neck: Normal range of motion, no tenderness, supple, no stridor. [] Cardiovascular:Heart rate regular rhythm, no murmur [] Lungs & Thorax: Bilateral breath sounds distant [] Abdomen: Bowel sounds normal, soft, no tenderness, no masses, no pulsatile masses. [] Skin: Warm, dry, no erythema, no rash. [] Back: No tenderness, no CVA tenderness. [] Extremities: No tenderness, no cyanosis, no clubbing, ROM intact, no edema. [] Neurologic: Alert no focal deficits noted. [] Psychologic: Affect normal, , mood flat . [] Vitals Vitals Vital Signs Date Time Temp Pulse Resp B/P (MAP) Pulse Ox O2 Delivery O2 Flow Rate FiO2 12/02/18 15:25 100 Nasal Cannula 5.0 12/02/18 14:54 98.9 88 20 139/67 (91) 98.9 Labs Labs Laboratory Tests Test 12/02/18 15:35 White Blood Count 14.3 x10^3/uL (4.0-11.0) Red Blood Count 4.11 x10^6/uL (3.50-5.40) Hemoglobin 9.1 g/dL (12.0-15.5) Hematocrit 31.1 % (36.0-47.0) Mean Corpuscular Volume 76 fL (79-100) Mean Corpuscular Hemoglobin 22 pg (25-35) Mean Corpuscular Hemoglobin Concent 29 g/dL (31-37) Red Cell Distribution Width 17.9 % (11.5-14.5) Platelet Count 423 x10^3/uL (140-400) Neutrophils (%) (Auto) 76 % (31-73) Lymphocytes (%) (Auto) 15 % (24-48) Monocytes (%) (Auto) 8 % (0-9) Eosinophils (%) (Auto) 1 % (0-3) Basophils (%) (Auto) 0 % (0-3) Neutrophils # (Auto) 10.9 x10^3uL (1.8-7.7) Lymphocytes # (Auto) 2.1 x10^3/uL (1.0-4.8) Monocytes # (Auto) 1.1 x10^3/uL (0.0-1.1) Eosinophils # (Auto) 0.1 x10^3/uL (0.0-0.7) Basophils # (Auto) 0.1 x10^3/uL (0.0-0.2) Platelet Estimate Increased (ADEQUATE) Large Platelets Occ Hypochromasia Mod Anisocytosis Slight Microcytosis Mod Sodium Level 138 mmol/L (136-145) Potassium Level 4.6 mmol/L (3.5-5.1) Chloride Level 100 mmol/L (98-107) Carbon Dioxide Level 33 mmol/L (21-32) Anion Gap 5 (6-14) Blood Urea Nitrogen 13 mg/dL (7-20) Creatinine 0.9 mg/dL (0.6-1.0) Estimated GFR (Cockcroft-Gault) 73.5 BUN/Creatinine Ratio 14 (6-20) Glucose Level 99 mg/dL (70-99) Calcium Level 9.0 mg/dL (8.5-10.1) Total Bilirubin 0.3 mg/dL (0.2-1.0) Aspartate Amino Transf (AST/SGOT) 13 U/L (15-37) Alanine Aminotransferase (ALT/SGPT) 10 U/L (14-59) Alkaline Phosphatase 61 U/L (46-116) Total Protein 8.2 g/dL (6.4-8.2) Albumin 2.8 g/dL (3.4-5.0) Albumin/Globulin Ratio 0.5 (1.0-1.7) Laboratory Tests Test 12/02/18 15:35 White Blood Count 14.3 x10^3/uL (4.0-11.0) Red Blood Count 4.11 x10^6/uL (3.50-5.40) Hemoglobin 9.1 g/dL (12.0-15.5) Hematocrit 31.1 % (36.0-47.0) Mean Corpuscular Volume 76 fL (79-100) Mean Corpuscular Hemoglobin 22 pg (25-35) Mean Corpuscular Hemoglobin Concent 29 g/dL (31-37) Red Cell Distribution Width 17.9 % (11.5-14.5) Platelet Count 423 x10^3/uL (140-400) Neutrophils (%) (Auto) 76 % (31-73) Lymphocytes (%) (Auto) 15 % (24-48) Monocytes (%) (Auto) 8 % (0-9) Eosinophils (%) (Auto) 1 % (0-3) Basophils (%) (Auto) 0 % (0-3) Neutrophils # (Auto) 10.9 x10^3uL (1.8-7.7) Lymphocytes # (Auto) 2.1 x10^3/uL (1.0-4.8) Monocytes # (Auto) 1.1 x10^3/uL (0.0-1.1) Eosinophils # (Auto) 0.1 x10^3/uL (0.0-0.7) Basophils # (Auto) 0.1 x10^3/uL (0.0-0.2) Platelet Estimate Increased (ADEQUATE) Large Platelets Occ Hypochromasia Mod Anisocytosis Slight Microcytosis Mod Sodium Level 138 mmol/L (136-145) Potassium Level 4.6 mmol/L (3.5-5.1) Chloride Level 100 mmol/L (98-107) Carbon Dioxide Level 33 mmol/L (21-32) Anion Gap 5 (6-14) Blood Urea Nitrogen 13 mg/dL (7-20) Creatinine 0.9 mg/dL (0.6-1.0) Estimated GFR (Cockcroft-Gault) 73.5 BUN/Creatinine Ratio 14 (6-20) Glucose Level 99 mg/dL (70-99) Calcium Level 9.0 mg/dL (8.5-10.1) Total Bilirubin 0.3 mg/dL (0.2-1.0) Aspartate Amino Transf (AST/SGOT) 13 U/L (15-37) Alanine Aminotransferase (ALT/SGPT) 10 U/L (14-59) Alkaline Phosphatase 61 U/L (46-116) Total Protein 8.2 g/dL (6.4-8.2) Albumin 2.8 g/dL (3.4-5.0) Albumin/Globulin Ratio 0.5 (1.0-1.7) Images Images STATUS: REG ER ORD. PHYSICIAN: NIMCO MICHAEL MD REASON: cough PROCEDURE: CHEST AP ONLY Indication:cough TECHNIQUE:Portable AP chest X-ray COMPARISON:11/03/2018 FINDINGS: Tracheostomy tube noted. Stable position of right chest wall Chemo-Port with its tip in the SVC. Heart is normal in size. Diffuse bilateral interstitial opacities are seen. Patchy opacities in the right lung base. No pneumothorax or pleural effusion. Visualized bony thorax is within normal limits. IMPRESSION: Bilateral interstitial opacities may be secondary to atypical/viral infection or interstitial pulmonary edema. Patchy opacities in the right lung base may be secondary to aspiration or pneumonia. Electronically signed by: Collin Meza DO (12/02/2018 3:44 PM) [facility] DICTATED and SIGNED BY: COLLIN MEZA DO DATE: 12/02/18 1544 VTE Prophylaxis Ordered VTE Prophylaxis Devices: No VTE Pharmacological Prophylaxi: Yes Assessment/Plan Assessment/Plan IMPRESSION 1. Efwud-ga-[id number] hypoxic respiratory failure secondary // suspected recurrent pneumonia. possible aspiration 2. Fever with abnormal chest x-ray with bilateral infiltrates, likely related to pneumonia. //history of multidrug resistant Pseudomonas aeruginosa pneumonia and methicillin resistant Staphylococcus aureus pneumonia. 3. chronic obstructive pulmonary disease with compensated respiratory acidosis and chronic hypoxic respiratory failure. 4. Leukocytosis // secondary to the infectious process 5. dementia 6. laryngeal cancer, 7.history of dysphagia, PEG tube in place, 8. tracheostomy in place PLAN PULM CONSULT Emperic iv antibiotics, zosyn, vanc ID CONSULT Supportive care. Overall, long-term prognosis is poor per my chart review//. Discussed family// patient dvt prophylaxis 69 min pt exam, chart review > 50% of time with exam, chart review, pt care coordination CUONG SHIRLEY MD Dec 02, 2018 16:33
[2018-12-02] MEDS ORDERED: IV NORMAL SALINE 1000ML BAG 1,000 ML IV SCH (16:39)
[2018-12-02] MEDS ORDERED: PIP/TAZO PER PHARMACY MC PRN (16:45)
[2018-12-02] MEDS ORDERED: ONDANSETRON PF 4 MG/2 ML VIAL. IV PRN (16:45)
--- NOTE | 2018-12-02 16:51 | PHYS DOC ---
Past Medical History Past Medical History: Cancer, Dementia, Hypertension, MRSA, Pneumonia, Other Additional Past Medical Histor: Lung CA Past Surgical History: Other Additional Past Surgical Histo: Cataract,PEG tube,CA trach,PORT Alcohol Use: None Drug Use: None Adult General Chief Complaint Chief Complaint: COUGH HPI HPI 78-year-old female presenting to the emergency department today with cough congestion for the past 2-3 days. She is been producing more sputum production which is yellow in color. No fevers at home. She is here with a family member. She denies any chest pain but because of her tracheostomy and chronic medical conditions is not verbal and mostly says yes or no. She is well-appearing and denies being in any pain. Review of systems is negative for abdominal pain fevers chills. She endorses having a cough. All other review of systems is negative unless otherwise noted in history of present illness. ED course: 78-year-old female presenting to the emergency department today with cough and congestion with a fever. On arrival she is afebrile with a normal heart rate. On examination she has rhonchi on the right more than left. Otherwise abdomen is soft and nontender. Patient is well-appearing. EKG obtained by myself and reviewed compared to previous on November 15, 2018 shows sinus rhythm with a regular rate. There are repolarization abnormalities in lead V2 and V3 and V4. I was able to communicate with Dr. Dyson our intern about this. He was able to review the EKG and does not believe this to be a STEMI. He was able to review both the EKG today and the previous. He asked that we repeat EKGs and get serial troponins. The patient does not have any chest pain at this time but primarily has cough with fever and an x- ray that shows a pneumonia. Dr. Torres and I spoke about the patient. He accepts the patient to the admission for hospitalization. We will place the patient in the cardiovascular care unit. Repeat EKG performed at 1647 shows repolarization abnormality without any acute evolving changes. Dr. Dyson was able to view this as well. Review of Systems Review of Systems Constitutional: Denies fever or chills [] Eyes: Denies change in visual acuity, redness, or eye pain [] HENT: Denies nasal congestion or sore throat [] Respiratory: Denies cough or shortness of breath [] Cardiovascular: No additional information not addressed in HPI [] GI: Denies abdominal pain, nausea, vomiting, bloody stools or diarrhea [] : Denies dysuria or hematuria [] Musculoskeletal: Denies back pain or joint pain [] Integument: Denies rash or skin lesions [] Neurologic: Denies headache, focal weakness or sensory changes [] Endocrine: Denies polyuria or polydipsia [] All other systems were reviewed and found to be within normal limits, except as documented in this note. Current Medications Current Medications Current Medications Medications (Trade) Dose Ordered Sig/Yuliana Start Time Stop Time Status Last Admin Dose Admin Albuterol/ Ipratropium (Duoneb) 3 ml STK-MED ONCE 12/02/18 15:16 12/02/18 15:17 DC Allergies Allergies Allergies Coded Allergies Type Severity Reaction Last Updated Verified aspirin Allergy Intermediate hives 03/16/17 Yes I S O L A T I O N *CONTACT* Allergy Unknown 08/15/18 Yes Physical Exam Physical Exam Constitutional: Well developed, well nourished, no acute distress, non-toxic appearance. [] HENT: Normocephalic, atraumatic, bilateral external ears normal, oropharynx moist, no oral exudates, nose normal. [] Eyes: PERRLA, EOMI, conjunctiva normal, no discharge. [] Neck: Normal range of motion, no tenderness, supple, no stridor. [] Cardiovascular:Heart rate regular rhythm, no murmur [] Lungs & Thorax: Bilateral breath sounds clear to auscultation [] Abdomen: Bowel sounds normal, soft, no tenderness, no masses, no pulsatile masses. [] Skin: Warm, dry, no erythema, no rash. [] Back: No tenderness, no CVA tenderness. [] Extremities: No tenderness, no cyanosis, no clubbing, ROM intact, no edema. [] Neurologic: Alert and oriented X 3, normal motor function, normal sensory function, no focal deficits noted. [] Psychologic: Affect normal, judgement normal, mood normal. [] Current Patient Data Vital Signs Vital Signs Date Time Temp Pulse Resp B/P (MAP) Pulse Ox O2 Delivery O2 Flow Rate FiO2 12/02/18 15:25 100 Nasal Cannula 5.0 12/02/18 14:54 98.9 88 20 139/67 (91) 98.9 Lab Values Laboratory Tests Test 12/02/18 15:35 White Blood Count 14.3 x10^3/uL (4.0-11.0) H Red Blood Count 4.11 x10^6/uL (3.50-5.40) Hemoglobin 9.1 g/dL (12.0-15.5) L Hematocrit 31.1 % (36.0-47.0) L Mean Corpuscular Volume 76 fL (79-100) L Mean Corpuscular Hemoglobin 22 pg (25-35) L Mean Corpuscular Hemoglobin Concent 29 g/dL (31-37) L Red Cell Distribution Width 17.9 % (11.5-14.5) H Platelet Count 423 x10^3/uL (140-400) H Neutrophils (%) (Auto) 76 % (31-73) H Lymphocytes (%) (Auto) 15 % (24-48) L Monocytes (%) (Auto) 8 % (0-9) Eosinophils (%) (Auto) 1 % (0-3) Basophils (%) (Auto) 0 % (0-3) Neutrophils # (Auto) 10.9 x10^3uL (1.8-7.7) H Lymphocytes # (Auto) 2.1 x10^3/uL (1.0-4.8) Monocytes # (Auto) 1.1 x10^3/uL (0.0-1.1) Eosinophils # (Auto) 0.1 x10^3/uL (0.0-0.7) Basophils # (Auto) 0.1 x10^3/uL (0.0-0.2) Platelet Estimate Increased (ADEQUATE) Large Platelets Occ Hypochromasia Mod Anisocytosis Slight Microcytosis Mod Sodium Level 138 mmol/L (136-145) Potassium Level 4.6 mmol/L (3.5-5.1) Chloride Level 100 mmol/L (98-107) Carbon Dioxide Level 33 mmol/L (21-32) H Anion Gap 5 (6-14) L Blood Urea Nitrogen 13 mg/dL (7-20) Creatinine 0.9 mg/dL (0.6-1.0) Estimated GFR (Cockcroft-Gault) 73.5 BUN/Creatinine Ratio 14 (6-20) Glucose Level 99 mg/dL (70-99) Calcium Level 9.0 mg/dL (8.5-10.1) Total Bilirubin 0.3 mg/dL (0.2-1.0) Aspartate Amino Transferase (AST) 13 U/L (15-37) L Alanine Aminotransferase (ALT) 10 U/L (14-59) L Alkaline Phosphatase 61 U/L (46-116) Total Protein 8.2 g/dL (6.4-8.2) Albumin 2.8 g/dL (3.4-5.0) L Albumin/Globulin Ratio 0.5 (1.0-1.7) L Laboratory Tests 12/02/18 15:35 Laboratory Tests 12/02/18 15:35 EKG EKG [] Radiology/Procedures Radiology/Procedures [] Course & Med Decision Making Course & Med Decision Making Pertinent Labs and Imaging studies reviewed. (See chart for details) [] Dragon Disclaimer Dragon Disclaimer This electronic medical record was generated, in whole or in part, using a voice recognition dictation system. Departure Departure Impression: Primary Impression: PNA (pneumonia) Additional Impression: Healthcare-associated pneumonia Disposition: ADMITTED INPATIENT Admitting Physician: Miguel Eng Condition: STABLE Referrals: CATHERINE MOSCOSO MD (PCP) Problem Qualifiers NIMCO MICHAEL MD Dec 02, 2018 16:51
[2018-12-02] MEDS ORDERED: VANCOMYCIN 1.25 GM in IV NORMAL SALINE 250ML 250 ML IV ONE (17:00)
[2018-12-02] MEDS ORDERED: PIPERACILLIN/TAZOBACTAM 4.5 GM in IV NORMAL SALINE 100ML 100 ML IV ONE (17:00)
[2018-12-02] MEDS: VANCOMYCIN PER PHARMACY MC PRN (17:23)
[2018-12-02 18:00] VITALS: BP 127/62
[2018-12-02] MEDS ORDERED: ALBU0.63 NEB (18:10)
[2018-12-02] MEDS ORDERED: IV NORMAL SALINE 1000ML BAG 750 ML IV ONE (19:00)
[2018-12-02] MEDS: MORPHINE SULFATE 2 MG/ML VIAL. IV PRN (20:23)
[2018-12-02 22:48] VITALS: BP 152/89
[2018-12-02] MEDS ORDERED: oxyCODONE/APAP 7.5/325 1 TAB TABLET PO PRN (23:30)
[2018-12-02] MEDS ORDERED: GABAPENTIN 300 MG CAPSULE. PO PRN (23:30)
[2018-12-03] VITALS (7 sets, daily range): BP systolic 135–195; BP diastolic 64–86
[2018-12-03] MEDS: PIPERACILLIN/TAZOBACTAM 3.375 GM in IV NORMAL SALINE 50ML 50 ML IV SCH ×5 (01:07→23:33)
[2018-12-03 05:20] LABS: CALCIUM 8.5 mg/dL (8.5-10.1); CREATININE 0.8 mg/dL (0.6-1.0); GFR 84.2; POTASSIUM 4.3 mmol/L (3.5-5.1)
[2018-12-03 05:40] LABS: BASO # 0.1 x10^3/uL (0.0-0.2); BASO % 1 % (0-3); EOS # 0.3 x10^3/uL (0.0-0.7); EOS % 3 % (0-3); HEMATOCRIT 28.8 % (36.0-47.0); HEMOGLOBIN 8.6 g/dL (12.0-15.5); LYMPH % 28 % (24-48); MEAN CORPUSCULAR HEMOGLOBIN 23 pg (25-35); MEAN CORPUSCULAR HGB CONC 30 g/dL (31-37); MEAN CORPUSCULAR VOLUME 76 fL (79-100); MONO # 0.7 x10^3/uL (0.0-1.1); MONO % 6 % (0-9); NEUT # 6.8 x10^3uL (1.8-7.7); NEUT % 62 % (31-73); PLATELET COUNT 399 x10^3/uL (140-400); RED BLOOD COUNT 3.78 x10^6/uL (3.50-5.40); RED CELL DISTRIBUTION WIDTH 17.6 % (11.5-14.5); WHITE BLOOD COUNT 10.9 x10^3/uL (4.0-11.0)
--- NOTE | 2018-12-03 06:24 | EKG ---
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
[2018-12-03] MEDS: MORPHINE SULFATE 2 MG/ML VIAL. IV PRN ×2 (06:35→14:16)
[2018-12-03] MEDS: ALBUTEROL SULFATE 2.5 MG/3 ML NEBU. NEB SCH ×4 (07:09→19:13)
[2018-12-03] MEDS ORDERED: METOCLOPRAMIDE 10 MG TABLET. PO SCH (07:30)
[2018-12-03] MEDS ORDERED: PANTOPRAZOLE 40 MG TABLET.DR. PO SCH (07:30)
--- NOTE | 2018-12-03 08:53 | EKG ---
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
[2018-12-03] MEDS ORDERED: LACTOBACILLUS RHAMNOSUS GG 1 CAPSULE. PO SCH (09:00)
[2018-12-03] MEDS ORDERED: NON FORMULARY ITEM (Albuterol Sulfate (Albuterol Sulfate Neb Soln) 1 VIAL) NEB SCH (09:00)
[2018-12-03] MEDS ORDERED: amLODIPine BESYLATE 5 MG TABLET PO SCH (09:00)
--- NOTE | 2018-12-03 09:08 | PDOC ---
Infectious Disease Note Vital Sign Vital Signs Vital Signs Date Time Temp Pulse Resp B/P (MAP) Pulse Ox O2 Delivery O2 Flow Rate FiO2 12/03/18 07:21 86 Tracheal Collar 5.0 12/03/18 07:00 97.0 85 20 177/84 (115) 97.0 Labs Lab Laboratory Tests Test 12/02/18 15:35 12/02/18 17:35 12/02/18 19:40 12/03/18 00:30 White Blood Count 14.3 x10^3/uL (4.0-11.0) Red Blood Count 4.11 x10^6/uL (3.50-5.40) Hemoglobin 9.1 g/dL (12.0-15.5) Hematocrit 31.1 % (36.0-47.0) Mean Corpuscular Volume 76 fL (79-100) Mean Corpuscular Hemoglobin 22 pg (25-35) Mean Corpuscular Hemoglobin Concent 29 g/dL (31-37) Red Cell Distribution Width 17.9 % (11.5-14.5) Platelet Count 423 x10^3/uL (140-400) Neutrophils (%) (Auto) 76 % (31-73) Lymphocytes (%) (Auto) 15 % (24-48) Monocytes (%) (Auto) 8 % (0-9) Eosinophils (%) (Auto) 1 % (0-3) Basophils (%) (Auto) 0 % (0-3) Neutrophils # (Auto) 10.9 x10^3uL (1.8-7.7) Lymphocytes # (Auto) 2.1 x10^3/uL (1.0-4.8) Monocytes # (Auto) 1.1 x10^3/uL (0.0-1.1) Eosinophils # (Auto) 0.1 x10^3/uL (0.0-0.7) Basophils # (Auto) 0.1 x10^3/uL (0.0-0.2) Platelet Estimate Increased (ADEQUATE) Large Platelets Occ Hypochromasia Mod Anisocytosis Slight Microcytosis Mod Sodium Level 138 mmol/L (136-145) Potassium Level 4.6 mmol/L (3.5-5.1) Chloride Level 100 mmol/L (98-107) Carbon Dioxide Level 33 mmol/L (21-32) Anion Gap 5 (6-14) Blood Urea Nitrogen 13 mg/dL (7-20) Creatinine 0.9 mg/dL (0.6-1.0) Estimated GFR (Cockcroft-Gault) 73.5 BUN/Creatinine Ratio 14 (6-20) Glucose Level 99 mg/dL (70-99) Calcium Level 9.0 mg/dL (8.5-10.1) Total Bilirubin 0.3 mg/dL (0.2-1.0) Aspartate Amino Transf (AST/SGOT) 13 U/L (15-37) Alanine Aminotransferase (ALT/SGPT) 10 U/L (14-59) Alkaline Phosphatase 61 U/L (46-116) Troponin I Quantitative 0.043 ng/mL (0.000-0.055) 0.040 ng/mL (0.000-0.055) 0.037 ng/mL (0.000-0.055) Total Protein 8.2 g/dL (6.4-8.2) Albumin 2.8 g/dL (3.4-5.0) Albumin/Globulin Ratio 0.5 (1.0-1.7) Lactic Acid Level 0.6 mmol/L (0.4-2.0) Test 12/03/18 04:30 White Blood Count 10.9 x10^3/uL (4.0-11.0) Red Blood Count 3.78 x10^6/uL (3.50-5.40) Hemoglobin 8.6 g/dL (12.0-15.5) Hematocrit 28.8 % (36.0-47.0) Mean Corpuscular Volume 76 fL (79-100) Mean Corpuscular Hemoglobin 23 pg (25-35) Mean Corpuscular Hemoglobin Concent 30 g/dL (31-37) Red Cell Distribution Width 17.6 % (11.5-14.5) Platelet Count 399 x10^3/uL (140-400) Neutrophils (%) (Auto) 62 % (31-73) Lymphocytes (%) (Auto) 28 % (24-48) Monocytes (%) (Auto) 6 % (0-9) Eosinophils (%) (Auto) 3 % (0-3) Basophils (%) (Auto) 1 % (0-3) Neutrophils # (Auto) 6.8 x10^3uL (1.8-7.7) Lymphocytes # (Auto) 3.0 x10^3/uL (1.0-4.8) Monocytes # (Auto) 0.7 x10^3/uL (0.0-1.1) Eosinophils # (Auto) 0.3 x10^3/uL (0.0-0.7) Basophils # (Auto) 0.1 x10^3/uL (0.0-0.2) Sodium Level 140 mmol/L (136-145) Potassium Level 4.3 mmol/L (3.5-5.1) Chloride Level 105 mmol/L (98-107) Carbon Dioxide Level 30 mmol/L (21-32) Anion Gap 5 (6-14) Blood Urea Nitrogen 9 mg/dL (7-20) Creatinine 0.8 mg/dL (0.6-1.0) Estimated GFR (Cockcroft-Gault) 84.2 Glucose Level 84 mg/dL (70-99) Calcium Level 8.5 mg/dL (8.5-10.1) Procalcitonin < 0.10 ng/mL (0.00-0.10) Objective Assessment pt seen, consult dictated Plan Plan of Care -- ASTER MATOS MD Dec 03, 2018 09:08
[2018-12-03 09:15] LABS: CHOLESTEROL/HDL RATIO 2.6
[2018-12-03] MEDS: DONEPEZIL HCL 5 MG TABLET. PEG SCH ×2 (09:24→20:52)
[2018-12-03] MEDS: CYPROHEPTADINE 4 MG TABLET. PEG SCH ×3 (09:24→20:52)
--- NOTE | 2018-12-03 10:32 | PDOC ---
PROGRESS NOTES Chief Complaint Chief Complaint history of lung cancer and tracheostomy with recurrent infection. 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 The patient came in with shortness of breath, low-grade fever, leukocytosis. no chest pain at this time but primarily has cough with fever and an x-ray c/w pneumonia. has laryngeal cancer, history of dysphagia, PEG tube in place, tracheostomy in place. 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 History of Present Illness History of Present Illness Assessment/Plan Assessment/Plan IMPRESSION 1. Mcxex-ah-rzwupew hypoxic respiratory failure secondary // suspected recurrent pneumonia. possible aspiration 2. Fever with abnormal chest x-ray with bilateral infiltrates, likely related to pneumonia. //history of multidrug resistant Pseudomonas aeruginosa pneumonia and methicillin resistant Staphylococcus aureus pneumonia. 3. chronic obstructive pulmonary disease with compensated respiratory acidosis and chronic hypoxic respiratory failure. 4. Leukocytosis // secondary to the infectious process 5. dementia 6. laryngeal cancer, 7.history of dysphagia, PEG tube in place, 8. tracheostomy in place 9. ASPIRATION PNEUMONIA PLAN PULM CONSULT Emperic iv antibiotics, zosyn, vanc ID CONSULT Supportive care. Overall, long-term prognosis is poor per my chart review//. Discussed family// patient dvt prophylaxis trach secretion for C and S. 41 min pt exam, chart review > 50% of time with exam, chart review, pt care coordination Vitals Vitals Vital Signs Date Time Temp Pulse Resp B/P (MAP) Pulse Ox O2 Delivery O2 Flow Rate FiO2 12/03/18 09:25 85 177/84 12/03/18 08:00 Trach Collar 10.0 12/03/18 07:21 86 12/03/18 07:00 97.0 20 97.0 Physical Exam Physical Exam Eyes: PERRLA, EOMI, conjunctiva normal, no discharge. [] Neck: Normal range of motion, no tenderness, supple, no stridor. [] Cardiovascular:Heart rate regular rhythm, no murmur [] Lungs & Thorax: Bilateral breath sounds distant [] Abdomen: Bowel sounds normal, soft, no tenderness, no masses, no pulsatile masses. [] Skin: Warm, dry, no erythema, no rash. [] Back: No tenderness, no CVA tenderness. [] Extremities: No tenderness, no cyanosis, no clubbing, ROM intact, no edema. [] Neurologic: Alert no focal deficits noted. [] Psychologic: Affect normal, , mood flat . [] General: Cooperative, mild distress Heart: Regular rate Lungs: Crackles, Other Abdomen: Soft Extremities: No cyanosis, No tenderness/swelling Labs LABS CT of the chest without contrast, 06/15/2018: HISTORY: Pneumonia Noncontrast scans were obtained as requested and compared to a study from 02/17/2018. Emphysematous changes are present in both lungs. There are scattered pleural/parenchymal scars. The previous study demonstrated bronchiectasis and moderate streaky right basilar opacities. There is now more dense infiltrate in the right lower lobe posteriorly compatible with superimposed pneumonia. Chronic atelectasis/consolidation posterior medially in the left lung base appears unchanged. No significant pleural fluid is evident. A tracheostomy tube is in satisfactory position. A right Port-A-Cath extends to the level of the atriocaval junction. There is moderate calcific plaquing of the thoracic aorta and its branches. Scattered coronary artery calcifications are present. The heart is generally enlarged. Borderline adenopathy at the AP window level is unchanged. A subcarinal density is more prominent than on the previous study, although the collapsed esophagus may be contributing to this density. There are surgical clips in the region of the GE junction. A portion of a gastrostomy tube is evident in the stomach IMPRESSION: 1. Emphysema with pleural/parenchymal scarring. 2. Worsening right lower lobe infiltrate compatible with pneumonia with underlying bronchiectasis. 3. Chronic atelectasis/consolidation posterior medially in the left lower lobe, similar to that seen on 02/17/2018 4. Borderline mediastinal adenopathy with probable slight worsening in the subcarinal region. 5. Cardiomegaly with calcific plaquing of the aorta and coronary arteries. PQRS Compliance Statement: One or more of the following individualized dose reduction techniques were utilized for this examination: 1. Automated exposure control 2. Adjustment of the mA and/or kV according to patient size 3. Use of iterative reconstruction technique Indication:cough TECHNIQUE:Portable AP chest X-ray COMPARISON:11/03/2018 FINDINGS: Tracheostomy tube noted. Stable position of right chest wall Chemo-Port with its tip in the SVC. Heart is normal in size. Diffuse bilateral interstitial opacities are seen. Patchy opacities in the right lung base. No pneumothorax or pleural effusion. Visualized bony thorax is within normal limits. IMPRESSION: Bilateral interstitial opacities may be secondary to atypical/viral infection or interstitial pulmonary edema. Patchy opacities in the right lung base may be secondary to aspiration or pneumonia. Electronically signed by: Collin Meza DO (12/02/2018 3:44 PM) [facility] DICTATED and SIGNED BY: COLLIN MEZA DO DATE: 12/02/18 1544 Laboratory Tests Test 12/02/18 15:35 12/02/18 17:35 12/02/18 19:40 12/03/18 00:30 White Blood Count 14.3 x10^3/uL (4.0-11.0) Red Blood Count 4.11 x10^6/uL (3.50-5.40) Hemoglobin 9.1 g/dL (12.0-15.5) Hematocrit 31.1 % (36.0-47.0) Mean Corpuscular Volume 76 fL (79-100) Mean Corpuscular Hemoglobin 22 pg (25-35) Mean Corpuscular Hemoglobin Concent 29 g/dL (31-37) Red Cell Distribution Width 17.9 % (11.5-14.5) Platelet Count 423 x10^3/uL (140-400) Neutrophils (%) (Auto) 76 % (31-73) Lymphocytes (%) (Auto) 15 % (24-48) Monocytes (%) (Auto) 8 % (0-9) Eosinophils (%) (Auto) 1 % (0-3) Basophils (%) (Auto) 0 % (0-3) Neutrophils # (Auto) 10.9 x10^3uL (1.8-7.7) Lymphocytes # (Auto) 2.1 x10^3/uL (1.0-4.8) Monocytes # (Auto) 1.1 x10^3/uL (0.0-1.1) Eosinophils # (Auto) 0.1 x10^3/uL (0.0-0.7) Basophils # (Auto) 0.1 x10^3/uL (0.0-0.2) Platelet Estimate Increased (ADEQUATE) Large Platelets Occ Hypochromasia Mod Anisocytosis Slight Microcytosis Mod Sodium Level 138 mmol/L (136-145) Potassium Level 4.6 mmol/L (3.5-5.1) Chloride Level 100 mmol/L (98-107) Carbon Dioxide Level 33 mmol/L (21-32) Anion Gap 5 (6-14) Blood Urea Nitrogen 13 mg/dL (7-20) Creatinine 0.9 mg/dL (0.6-1.0) Estimated GFR (Cockcroft-Gault) 73.5 BUN/Creatinine Ratio 14 (6-20) Glucose Level 99 mg/dL (70-99) Calcium Level 9.0 mg/dL (8.5-10.1) Total Bilirubin 0.3 mg/dL (0.2-1.0) Aspartate Amino Transf (AST/SGOT) 13 U/L (15-37) Alanine Aminotransferase (ALT/SGPT) 10 U/L (14-59) Alkaline Phosphatase 61 U/L (46-116) Troponin I Quantitative 0.043 ng/mL (0.000-0.055) 0.040 ng/mL (0.000-0.055) 0.037 ng/mL (0.000-0.055) Total Protein 8.2 g/dL (6.4-8.2) Albumin 2.8 g/dL (3.4-5.0) Albumin/Globulin Ratio 0.5 (1.0-1.7) Lactic Acid Level 0.6 mmol/L (0.4-2.0) Test 12/03/18 04:30 White Blood Count 10.9 x10^3/uL (4.0-11.0) Red Blood Count 3.78 x10^6/uL (3.50-5.40) Hemoglobin 8.6 g/dL (12.0-15.5) Hematocrit 28.8 % (36.0-47.0) Mean Corpuscular Volume 76 fL (79-100) Mean Corpuscular Hemoglobin 23 pg (25-35) Mean Corpuscular Hemoglobin Concent 30 g/dL (31-37) Red Cell Distribution Width 17.6 % (11.5-14.5) Platelet Count 399 x10^3/uL (140-400) Neutrophils (%) (Auto) 62 % (31-73) Lymphocytes (%) (Auto) 28 % (24-48) Monocytes (%) (Auto) 6 % (0-9) Eosinophils (%) (Auto) 3 % (0-3) Basophils (%) (Auto) 1 % (0-3) Neutrophils # (Auto) 6.8 x10^3uL (1.8-7.7) Lymphocytes # (Auto) 3.0 x10^3/uL (1.0-4.8) Monocytes # (Auto) 0.7 x10^3/uL (0.0-1.1) Eosinophils # (Auto) 0.3 x10^3/uL (0.0-0.7) Basophils # (Auto) 0.1 x10^3/uL (0.0-0.2) Sodium Level 140 mmol/L (136-145) Potassium Level 4.3 mmol/L (3.5-5.1) Chloride Level 105 mmol/L (98-107) Carbon Dioxide Level 30 mmol/L (21-32) Anion Gap 5 (6-14) Blood Urea Nitrogen 9 mg/dL (7-20) Creatinine 0.8 mg/dL (0.6-1.0) Estimated GFR (Cockcroft-Gault) 84.2 Glucose Level 84 mg/dL (70-99) Calcium Level 8.5 mg/dL (8.5-10.1) Triglycerides Level 85 mg/dL (0-150) Cholesterol Level 101 mg/dL (0-200) LDL Cholesterol, Calculated 45 mg/dL (0-100) VLDL Cholesterol, Calculated 17 mg/dL (0-40) Non-HDL Cholesterol Calculated 62 mg/dL (0-129) HDL Cholesterol 39 mg/dL (40-60) Cholesterol/HDL Ratio 2.6 Procalcitonin < 0.10 ng/mL (0.00-0.10) Assessment and Plan Assessmemt and Plan Problems Medical Problems: (1) Healthcare-associated pneumonia Status: Acute Comment Review of Relevant I have reviewed the following items miko (where applicable) has been applied. Labs Laboratory Tests Test 12/02/18 15:35 12/02/18 17:35 12/02/18 19:40 12/03/18 00:30 White Blood Count 14.3 x10^3/uL (4.0-11.0) Red Blood Count 4.11 x10^6/uL (3.50-5.40) Hemoglobin 9.1 g/dL (12.0-15.5) Hematocrit 31.1 % (36.0-47.0) Mean Corpuscular Volume 76 fL (79-100) Mean Corpuscular Hemoglobin 22 pg (25-35) Mean Corpuscular Hemoglobin Concent 29 g/dL (31-37) Red Cell Distribution Width 17.9 % (11.5-14.5) Platelet Count 423 x10^3/uL (140-400) Neutrophils (%) (Auto) 76 % (31-73) Lymphocytes (%) (Auto) 15 % (24-48) Monocytes (%) (Auto) 8 % (0-9) Eosinophils (%) (Auto) 1 % (0-3) Basophils (%) (Auto) 0 % (0-3) Neutrophils # (Auto) 10.9 x10^3uL (1.8-7.7) Lymphocytes # (Auto) 2.1 x10^3/uL (1.0-4.8) Monocytes # (Auto) 1.1 x10^3/uL (0.0-1.1) Eosinophils # (Auto) 0.1 x10^3/uL (0.0-0.7) Basophils # (Auto) 0.1 x10^3/uL (0.0-0.2) Platelet Estimate Increased (ADEQUATE) Large Platelets Occ Hypochromasia Mod Anisocytosis Slight Microcytosis Mod Sodium Level 138 mmol/L (136-145) Potassium Level 4.6 mmol/L (3.5-5.1) Chloride Level 100 mmol/L (98-107) Carbon Dioxide Level 33 mmol/L (21-32) Anion Gap 5 (6-14) Blood Urea Nitrogen 13 mg/dL (7-20) Creatinine 0.9 mg/dL (0.6-1.0) Estimated GFR (Cockcroft-Gault) 73.5 BUN/Creatinine Ratio 14 (6-20) Glucose Level 99 mg/dL (70-99) Calcium Level 9.0 mg/dL (8.5-10.1) Total Bilirubin 0.3 mg/dL (0.2-1.0) Aspartate Amino Transf (AST/SGOT) 13 U/L (15-37) Alanine Aminotransferase (ALT/SGPT) 10 U/L (14-59) Alkaline Phosphatase 61 U/L (46-116) Troponin I Quantitative 0.043 ng/mL (0.000-0.055) 0.040 ng/mL (0.000-0.055) 0.037 ng/mL (0.000-0.055) Total Protein 8.2 g/dL (6.4-8.2) Albumin 2.8 g/dL (3.4-5.0) Albumin/Globulin Ratio 0.5 (1.0-1.7) Lactic Acid Level 0.6 mmol/L (0.4-2.0) Test 12/03/18 04:30 White Blood Count 10.9 x10^3/uL (4.0-11.0) Red Blood Count 3.78 x10^6/uL (3.50-5.40) Hemoglobin 8.6 g/dL (12.0-15.5) Hematocrit 28.8 % (36.0-47.0) Mean Corpuscular Volume 76 fL (79-100) Mean Corpuscular Hemoglobin 23 pg (25-35) Mean Corpuscular Hemoglobin Concent 30 g/dL (31-37) Red Cell Distribution Width 17.6 % (11.5-14.5) Platelet Count 399 x10^3/uL (140-400) Neutrophils (%) (Auto) 62 % (31-73) Lymphocytes (%) (Auto) 28 % (24-48) Monocytes (%) (Auto) 6 % (0-9) Eosinophils (%) (Auto) 3 % (0-3) Basophils (%) (Auto) 1 % (0-3) Neutrophils # (Auto) 6.8 x10^3uL (1.8-7.7) Lymphocytes # (Auto) 3.0 x10^3/uL (1.0-4.8) Monocytes # (Auto) 0.7 x10^3/uL (0.0-1.1) Eosinophils # (Auto) 0.3 x10^3/uL (0.0-0.7) Basophils # (Auto) 0.1 x10^3/uL (0.0-0.2) Sodium Level 140 mmol/L (136-145) Potassium Level 4.3 mmol/L (3.5-5.1) Chloride Level 105 mmol/L (98-107) Carbon Dioxide Level 30 mmol/L (21-32) Anion Gap 5 (6-14) Blood Urea Nitrogen 9 mg/dL (7-20) Creatinine 0.8 mg/dL (0.6-1.0) Estimated GFR (Cockcroft-Gault) 84.2 Glucose Level 84 mg/dL (70-99) Calcium Level 8.5 mg/dL (8.5-10.1) Triglycerides Level 85 mg/dL (0-150) Cholesterol Level 101 mg/dL (0-200) LDL Cholesterol, Calculated 45 mg/dL (0-100) VLDL Cholesterol, Calculated 17 mg/dL (0-40) Non-HDL Cholesterol Calculated 62 mg/dL (0-129) HDL Cholesterol 39 mg/dL (40-60) Cholesterol/HDL Ratio 2.6 Procalcitonin < 0.10 ng/mL (0.00-0.10) Laboratory Tests Test 12/02/18 15:35 12/02/18 17:35 12/02/18 19:40 12/03/18 00:30 White Blood Count 14.3 x10^3/uL (4.0-11.0) Red Blood Count 4.11 x10^6/uL (3.50-5.40) Hemoglobin 9.1 g/dL (12.0-15.5) Hematocrit 31.1 % (36.0-47.0) Mean Corpuscular Volume 76 fL (79-100) Mean Corpuscular Hemoglobin 22 pg (25-35) Mean Corpuscular Hemoglobin Concent 29 g/dL (31-37) Red Cell Distribution Width 17.9 % (11.5-14.5) Platelet Count 423 x10^3/uL (140-400) Neutrophils (%) (Auto) 76 % (31-73) Lymphocytes (%) (Auto) 15 % (24-48) Monocytes (%) (Auto) 8 % (0-9) Eosinophils (%) (Auto) 1 % (0-3) Basophils (%) (Auto) 0 % (0-3) Neutrophils # (Auto) 10.9 x10^3uL (1.8-7.7) Lymphocytes # (Auto) 2.1 x10^3/uL (1.0-4.8) Monocytes # (Auto) 1.1 x10^3/uL (0.0-1.1) Eosinophils # (Auto) 0.1 x10^3/uL (0.0-0.7) Basophils # (Auto) 0.1 x10^3/uL (0.0-0.2) Platelet Estimate Increased (ADEQUATE) Large Platelets Occ Hypochromasia Mod Anisocytosis Slight Microcytosis Mod Sodium Level 138 mmol/L (136-145) Potassium Level 4.6 mmol/L (3.5-5.1) Chloride Level 100 mmol/L (98-107) Carbon Dioxide Level 33 mmol/L (21-32) Anion Gap 5 (6-14) Blood Urea Nitrogen 13 mg/dL (7-20) Creatinine 0.9 mg/dL (0.6-1.0) Estimated GFR (Cockcroft-Gault) 73.5 BUN/Creatinine Ratio 14 (6-20) Glucose Level 99 mg/dL (70-99) Calcium Level 9.0 mg/dL (8.5-10.1) Total Bilirubin 0.3 mg/dL (0.2-1.0) Aspartate Amino Transf (AST/SGOT) 13 U/L (15-37) Alanine Aminotransferase (ALT/SGPT) 10 U/L (14-59) Alkaline Phosphatase 61 U/L (46-116) Troponin I Quantitative 0.043 ng/mL (0.000-0.055) 0.040 ng/mL (0.000-0.055) 0.037 ng/mL (0.000-0.055) Total Protein 8.2 g/dL (6.4-8.2) Albumin 2.8 g/dL (3.4-5.0) Albumin/Globulin Ratio 0.5 (1.0-1.7) Lactic Acid Level 0.6 mmol/L (0.4-2.0) Test 12/03/18 04:30 White Blood Count 10.9 x10^3/uL (4.0-11.0) Red Blood Count 3.78 x10^6/uL (3.50-5.40) Hemoglobin 8.6 g/dL (12.0-15.5) Hematocrit 28.8 % (36.0-47.0) Mean Corpuscular Volume 76 fL (79-100) Mean Corpuscular Hemoglobin 23 pg (25-35) Mean Corpuscular Hemoglobin Concent 30 g/dL (31-37) Red Cell Distribution Width 17.6 % (11.5-14.5) Platelet Count 399 x10^3/uL (140-400) Neutrophils (%) (Auto) 62 % (31-73) Lymphocytes (%) (Auto) 28 % (24-48) Monocytes (%) (Auto) 6 % (0-9) Eosinophils (%) (Auto) 3 % (0-3) Basophils (%) (Auto) 1 % (0-3) Neutrophils # (Auto) 6.8 x10^3uL (1.8-7.7) Lymphocytes # (Auto) 3.0 x10^3/uL (1.0-4.8) Monocytes # (Auto) 0.7 x10^3/uL (0.0-1.1) Eosinophils # (Auto) 0.3 x10^3/uL (0.0-0.7) Basophils # (Auto) 0.1 x10^3/uL (0.0-0.2) Sodium Level 140 mmol/L (136-145) Potassium Level 4.3 mmol/L (3.5-5.1) Chloride Level 105 mmol/L (98-107) Carbon Dioxide Level 30 mmol/L (21-32) Anion Gap 5 (6-14) Blood Urea Nitrogen 9 mg/dL (7-20) Creatinine 0.8 mg/dL (0.6-1.0) Estimated GFR (Cockcroft-Gault) 84.2 Glucose Level 84 mg/dL (70-99) Calcium Level 8.5 mg/dL (8.5-10.1) Triglycerides Level 85 mg/dL (0-150) Cholesterol Level 101 mg/dL (0-200) LDL Cholesterol, Calculated 45 mg/dL (0-100) VLDL Cholesterol, Calculated 17 mg/dL (0-40) Non-HDL Cholesterol Calculated 62 mg/dL (0-129) HDL Cholesterol 39 mg/dL (40-60) Cholesterol/HDL Ratio 2.6 Procalcitonin < 0.10 ng/mL (0.00-0.10) Medications Current Medications Albuterol/ Ipratropium (Duoneb) 3 ml STK-MED ONCE .ROUTE ; Start 12/02/18 at 15: 16; Stop 12/02/18 at 15:17; Status DC Ondansetron HCl (Zofran) 4 mg PRN Q8HRS PRN IV NAUSEA/VOMITING; Start 12/02/18 at 16:45; Stop 12/03/18 at 16:44 Morphine Sulfate (Morphine Sulfate) 2 mg PRN Q2HR PRN IV PAIN Last administered on 12/03/18at 06:35; Start 12/02/18 at 16:45; Stop 12/03/18 at 16:44 Sodium Chloride 1,000 ml @ 100 mls/hr Q10H IV Last administered on 12/02/18at 19:41; Start 12/02/18 at 16:39; Stop 12/02/18 at 20:38; Status DC Vancomycin HCl (Vanco Per Pharmacy) 1 each PRN DAILY PRN MC SEE COMMENTS Last administered on 12/02/18at 17:23; Start 12/02/18 at 16:45 Piperacillin Sod/ Tazobactam Sod (Zosyn Per Pharmacy) 1 each PRN DAILY PRN MC SEE COMMENTS; Start 12/02/18 at 16:45 Vancomycin HCl 1.25 gm/Sodium Chloride 250 ml @ 167 mls/hr ONCE ONCE IV Last administered on 12/02/18at 19:39; Start 12/02/18 at 17:00; Stop 12/02/18 at 18:29 ; Status DC Piperacillin Sod/ Tazobactam Sod 4.5 gm/Sodium Chloride 100 ml @ 200 mls/hr ONCE ONCE IV Last administered on 12/02/18at 17:02; Start 12/02/18 at 17:00; Stop 12/02/18 at 17:29; Status DC Piperacillin Sod/ Tazobactam Sod 3.375 gm/Sodium Chloride 50 ml @ 100 mls/hr Q6HRS IV Last administered on 12/03/18at 06:29; Start 12/03/18 at 00:00 Vancomycin HCl 1 gm/Sodium Chloride 250 ml @ 250 mls/hr Q18H IV ; Start at 14:00 Vancomycin HCl (Vancomycin Trough Level) 1 each 1X ONCE MC ; Start 12/04/18 at 07:30; Stop 12/04/18 at 07:31 Sodium Chloride 750 ml @ 375 mls/hr 1X ONCE IV Last administered on at 19:31; Start 12/02/18 at 19:00; Stop 12/02/18 at 20:59; Status DC Amlodipine Besylate (Norvasc) 5 mg DAILY PO Last administered on 12/03/18 09: 25; Start 12/03/18 at 09:00; Stop 12/03/18 at 09:54; Status DC Fentanyl (Duragesic 50mcg/ Hr Patch) 1 patch Q3DAYS TD ; Start 12/05/18 at 09:00 Gabapentin (Neurontin) 300 mg PRN BID PRN PO PAIN; Start 12/02/18 at 23:30 Lactobacillus Rhamnosus (Culturelle) 1 cap BID PO Last administered on 09:24; Start 12/03/18 at 09:00; Stop 12/03/18 at 09:52; Status DC Metoclopramide HCl (Reglan) 5 mg QIDACHS PO Last administered on 12/03/18 09: 24; Start 12/03/18 at 07:30; Stop 12/03/18 at 09:54; Status DC Ondansetron HCl (Zofran Odt) 4 mg PRN QID PRN PEG NAUSEA/VOMITING; Start at 23:30 Oxycodone/ Acetaminophen (Percocet 7.5/ 325) 1 tab PRN QID PRN PO PAIN Last administered on 12/03/18 09:26; Start 12/02/18 at 23:30; Stop 12/03/18 at 09:54 ; Status DC Pantoprazole Sodium (Protonix) 40 mg BIDBFRMEAL PO Last administered on 09:24; Start 12/03/18 at 07:30; Stop 12/03/18 at 09:53; Status DC Non-Formulary Medication (Albuterol Sulfate (Albuterol Sulfate Neb Soln)) 1 vial QID NEB ; Start 12/03/18 at 09:00; Status UNV Cyproheptadine HCl (Periactin) 4 mg TID PEG Last administered on 12/03/18 09: 24; Start 12/03/18 at 09:00 Donepezil HCl (Aricept) 5 mg BID PEG Last administered on 12/03/18at 09:24; Start 12/03/18 at 09:00 Albuterol Sulfate (Ventolin Neb Soln) 2.5 mg RTQID NEB Last administered on at 07:09; Start 12/03/18 at 08:00 Lansoprazole (Prevacid) 30 mg BIDBFRMEAL PEG ; Start 12/03/18 at 16:30 Amlodipine Besylate (Norvasc) 5 mg DAILY PEG ; Start 12/03/18 at 09:54 Metoclopramide HCl (Reglan) 5 mg QIDACHS PEG ; Start 12/03/18 at 09:54 Oxycodone/ Acetaminophen (Percocet 7.5/ 325) 1 tab PRN QID PRN PEG PAIN; Start 12/03/18 at 09:54 Active Scripts Active Culturelle (Lactobacillus Rhamnosus Gg) 1 Each Cap.sprink 1 Cap PO BID 30 Days Reported Albuterol Sulfate Neb Soln (Albuterol Sulfate) 0.63 Mg/3 Ml Vial.neb 1 Vial NEB QID Gabapentin (Gabapentin) 300 Mg Capsule 300 Mg PO BID PRN Amlodipine Besylate 5 Mg Tablet 5 Mg PO DAILY Pantoprazole Sodium 40 Mg Tablet.dr 40 Mg PEG BID Donepezil Hcl 5 Mg Tablet 5 Mg PEG BID Reglan (Metoclopramide Hcl) 10 Mg Tablet 5 Mg PO QIDACHS Cyproheptadine Hcl 2 Mg/5 Ml Syrup 10 Ml PEG TID Percocet 7.5-325 Mg Tablet (Oxycodone/Acetaminophen) 1 Each Tablet 1 Tab PO QID PRN FENTANYL 50mcg/hr (Fentanyl) 1 Each Patch.td72 1 Patch TP Q3DAYS Ondansetron Odt (Ondansetron) 4 Mg Tab.rapdis 4 Mg PEG QIDPRN PRN Vitals/I & O Vital Sign - Last 24 Hours 12/02/18 12/02/18 12/02/18 12/02/18 14:54 15:09 15:25 16:09 Temp 98.9 98.9 Pulse 88 90 88 Resp 20 B/P (MAP) 139/67 (91) 137/92 (107) 135/65 (88) Pulse Ox 97 100 100 100 O2 Delivery Tracheal Collar Nasal Cannula Tracheal Collar O2 Flow Rate 5.0 5.0 5.0 5.0 12/02/18 12/02/18 12/02/18 12/02/18 17:09 18:00 18:00 20:00 Temp 99.1 99.1 Pulse 87 72 Resp 18 B/P (MAP) 136/65 (88) 127/62 (83) Pulse Ox 100 100 O2 Delivery Tracheal Collar Trach Collar Nasal Cannula Trach Collar O2 Flow Rate 5.0 5.0 5.0 5.0 12/02/18 12/02/18 12/03/18 12/03/18 20:53 22:48 02:43 07:00 Temp 98.9 99.0 97.0 98.9 99.0 97.0 Pulse 88 78 85 Resp 18 20 20 B/P (MAP) 152/89 (110) 142/78 (99) 177/84 (115) Pulse Ox 100 98 99 89 O2 Delivery Tracheal Collar Tracheal Collar Room Air O2 Flow Rate 5.0 5.0 5.0 12/03/18 12/03/18 12/03/18 07:21 08:00 09:25 Pulse 85 B/P (MAP) 177/84 Pulse Ox 86 O2 Delivery Tracheal Collar Trach Collar O2 Flow Rate 5.0 10.0 Intake and Output 12/02/18 12/02/18 12/03/18 15:00 23:00 07:00 Intake Total 100 ml 0 ml Output Total 100 ml Balance 100 ml -100 ml CUONG SHIRLEY MD Dec 03, 2018 10:32
--- NOTE | 2018-12-03 11:05 | CONS ---
DATE OF CONSULTATION: ATTENDING PHYSICIAN: Dr. Torres. REASON FOR CONSULTATION: Pneumonia. HISTORY OF PRESENT ILLNESS: The patient is a 78-year-old female who is very well known to us. She has history of lung cancer, history of laryngeal cancer, status post chronic tracheostomy and she has a history of recurrent pneumonias with multidrug resistant pseudomonas and MRSA in the past. She has frequent hospitalizations on a regular basis. She was brought into the hospital with complaint of shortness of breath. She often at times does not keep her trach collar in place. She has some more sputum production, which was yellow in color as reported. She had a cough with reportedly fever on admission as well. Her chest x-ray was reviewed by me. There appeared to be more prominent interstitial markings bilaterally and also volume loss in the left lower lobe. She was hospitalized and Infectious Disease was consulted and she was started on vancomycin and Zosyn. I have been asked to see her for further evaluation. There is no reported nausea, vomiting or diarrhea. She has been on PEG tube feeding. PAST MEDICAL HISTORY: History of lung cancer, history of laryngeal cancer, history of tracheostomy, history of MDR PSA pneumonia, history of MRSA pneumonias. PAST SURGICAL HISTORY: PEG tube and tracheostomy. ALLERGIES: ASPIRIN. MEDICATIONS: All reviewed, as listed in the MRAD. REVIEW OF SYSTEMS: Unable to obtain from the patient, but much of the system review was discussed in my history of present illness. SOCIAL HISTORY: He has history of tobacco use in the past. PHYSICAL EXAMINATION: VITAL SIGNS: Stable. Pulse ox 100% on trach collar. HEENT: Sclerae nonicteric. NECK: Supple. LUNGS: Diminished breath sounds. CARDIOVASCULAR: Regular rate. ABDOMEN: Soft. PEG tube is in place. EXTREMITIES: With no pitting edema. LABORATORY DATA: Reviewed. White cell count was 14.3 on admission; hemoglobin 9.1, now 8.6. Platelets are 423. BUN and creatinine normal. Troponin is less than 0.10. IMPRESSION: 1. [id number] respiratory failure secondary to clinically suspected pneumonia. The patient presented with leukocytosis and subjective low-grade fever and increased infiltrates on the chest x-ray. Procalcitonin, however, is normal. The possibility of mild superimposed congestive heart failure cannot be ruled out. 2. History of laryngeal and lung cancer, status post tracheostomy. 3. 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 4. History of chronic tracheostomy. RECOMMENDATIONS: 1. Obtain trach secretion for C and S. 2. Continue with present antibiotics. 3. Follow chest x-rays. 4. Continue present oxygen. 5. Enteral nutrition. 6. We will follow along with you. MARY LANIER MD DR: AINSLEY/sena JOB#: [id number] / [id number]
--- NOTE | 2018-12-03 11:18 | PDOC2 ---
CARDIAC CONSULT DATE OF CONSULT Date of Consult DATE: 12/03/18 TIME: 11:05 REASON FOR CONSULT Reason for Consult: Chest chest REFERRING PHYSICIAN Referring Physician: Dr. 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 Reports experiencing central chest aching, which prompted this consult. Patient reports pain is associated with cough. Worsened with deep breath. No dizziness, diaphoresis, palpitations, chest tenderness, orthopnea, or PND. PAST MEDICAL HISTORY Past Medical History Cardiovascular: HTN Pulmonary: COPD, Pneumonia, Other (lung cancer) CENTRAL NERVOUS SYSTEM: Other GI: dysphagia, esophageal stricture Heme/Onc: Anemia NOS, laryngeal Cancer Hepatobiliary: No pertinent hx Psych: No pertinent hx Musculoskeletal: Osteoarthritis Rheumatologic: No pertinent hx Infectious disease: MRSA, C-diff, pseudomonas Renal/: No pertinent hx Endocrine: No pertinent hx PAST SURGICAL HISTORY Past Surgical History Cataract Removal, Other (laryngectomy, PEG placement, tracheostomy,), colostomy FAMILY HISTORY Family History: Heart Disease SOCIAL HISTORY ALCOHOL: none Drugs: None CURRENT MEDICATIONS CURRENT MEDICATIONS Current Medications Medications (Trade) Dose Ordered Sig/Yuliana Route PRN Reason Start Time Stop Time Status Last Admin Dose Admin Morphine Sulfate (Morphine Sulfate) 2 mg PRN Q2HR PRN IV PAIN 12/02/18 16:45 12/03/18 16:44 12/03/18 06:35 Sodium Chloride 1,000 ml @ 100 mls/hr Q10H IV 12/02/18 16:39 12/02/18 20:38 DC 12/02/18 19:41 Vancomycin HCl (Vanco Per Pharmacy) 1 each PRN DAILY PRN MC SEE COMMENTS 12/02/18 16:45 12/02/18 17:23 Vancomycin HCl 1.25 gm/Sodium Chloride 250 ml @ 167 mls/hr ONCE ONCE IV 12/02/18 17:00 12/02/18 18:29 DC 12/02/18 19:39 Piperacillin Sod/ Tazobactam Sod 4.5 gm/Sodium Chloride 100 ml @ 200 mls/hr ONCE ONCE IV 12/02/18 17:00 12/02/18 17:29 DC 12/02/18 17:02 Piperacillin Sod/ Tazobactam Sod 3.375 gm/Sodium Chloride 50 ml @ 100 mls/hr Q6HRS IV 12/03/18 00:00 12/03/18 06:29 Sodium Chloride 750 ml @ 375 mls/hr 1X ONCE IV 12/02/18 19:00 12/02/18 20:59 DC 12/02/18 19:31 Amlodipine Besylate (Norvasc) 5 mg DAILY PO 12/03/18 09:00 12/03/18 09:54 DC 12/03/18 09:25 Lactobacillus Rhamnosus (Culturelle) 1 cap BID PO 12/03/18 09:00 12/03/18 09:52 DC 12/03/18 09:24 Metoclopramide HCl (Reglan) 5 mg QIDACHS PO 12/03/18 07:30 12/03/18 09:54 DC 12/03/18 09:24 Oxycodone/ Acetaminophen (Percocet 7.5/ 325) 1 tab PRN QID PRN PO PAIN 12/02/18 23:30 12/03/18 09:54 DC 12/03/18 09:26 Pantoprazole Sodium (Protonix) 40 mg BIDBFRMEAL PO 12/03/18 07:30 12/03/18 09:53 DC 12/03/18 09:24 Cyproheptadine HCl (Periactin) 4 mg TID PEG 12/03/18 09:00 12/03/18 09:24 Donepezil HCl (Aricept) 5 mg BID PEG 12/03/18 09:00 12/03/18 09:24 Albuterol Sulfate (Ventolin Neb Soln) 2.5 mg RTQID NEB 12/03/18 08:00 12/03/18 07:09 ALLERGIES ALLERGIES: Coded Allergies: aspirin (Verified Allergy, Intermediate, hives, 03/16/17) I S O L A T I O N *CONTACT* (Verified Allergy, Unknown, 08/15/18) ROS Review of System 14 point ROS conducted with pertinent positives noted above in HPI PHYSICAL EXAM PHYSICAL EXAM General: Alert, Cooperative, No acute distress HEENT: Atraumatic, Mucous membr. moist/pink Lungs: Other (basilar crackles, tracheostomy with trach shield) Heart: Regular rate (SR with first degree AV block), Other (2/6 systolic murmur to LLS border) Abdomen: Soft, No tenderness, Other (peg tube in place) Extremities: No cyanosis, No edema Skin: No breakdown, No significant lesion Neuro: Sensation intact Psych/Mental Status: Mental status NL MUSCULOSKELETAL: Osteoarthritic changes both hands VITALS VITALS Vital Signs Date Time Temp Pulse Resp B/P (MAP) Pulse Ox O2 Delivery O2 Flow Rate FiO2 12/03/18 09:25 85 177/84 12/03/18 08:00 Trach Collar 10.0 12/03/18 07:21 86 12/03/18 07:00 97.0 20 97.0 LABS Lab: Laboratory Tests Test 12/02/18 15:35 12/02/18 17:35 12/02/18 19:40 12/03/18 00:30 White Blood Count 14.3 x10^3/uL (4.0-11.0) Red Blood Count 4.11 x10^6/uL (3.50-5.40) Hemoglobin 9.1 g/dL (12.0-15.5) Hematocrit 31.1 % (36.0-47.0) Mean Corpuscular Volume 76 fL (79-100) Mean Corpuscular Hemoglobin 22 pg (25-35) Mean Corpuscular Hemoglobin Concent 29 g/dL (31-37) Red Cell Distribution Width 17.9 % (11.5-14.5) Platelet Count 423 x10^3/uL (140-400) Neutrophils (%) (Auto) 76 % (31-73) Lymphocytes (%) (Auto) 15 % (24-48) Monocytes (%) (Auto) 8 % (0-9) Eosinophils (%) (Auto) 1 % (0-3) Basophils (%) (Auto) 0 % (0-3) Neutrophils # (Auto) 10.9 x10^3uL (1.8-7.7) Lymphocytes # (Auto) 2.1 x10^3/uL (1.0-4.8) Monocytes # (Auto) 1.1 x10^3/uL (0.0-1.1) Eosinophils # (Auto) 0.1 x10^3/uL (0.0-0.7) Basophils # (Auto) 0.1 x10^3/uL (0.0-0.2) Platelet Estimate Increased (ADEQUATE) Large Platelets Occ Hypochromasia Mod Anisocytosis Slight Microcytosis Mod Sodium Level 138 mmol/L (136-145) Potassium Level 4.6 mmol/L (3.5-5.1) Chloride Level 100 mmol/L (98-107) Carbon Dioxide Level 33 mmol/L (21-32) Anion Gap 5 (6-14) Blood Urea Nitrogen 13 mg/dL (7-20) Creatinine 0.9 mg/dL (0.6-1.0) Estimated GFR (Cockcroft-Gault) 73.5 BUN/Creatinine Ratio 14 (6-20) Glucose Level 99 mg/dL (70-99) Calcium Level 9.0 mg/dL (8.5-10.1) Total Bilirubin 0.3 mg/dL (0.2-1.0) Aspartate Amino Transf (AST/SGOT) 13 U/L (15-37) Alanine Aminotransferase (ALT/SGPT) 10 U/L (14-59) Alkaline Phosphatase 61 U/L (46-116) Troponin I Quantitative 0.043 ng/mL (0.000-0.055) 0.040 ng/mL (0.000-0.055) 0.037 ng/mL (0.000-0.055) Total Protein 8.2 g/dL (6.4-8.2) Albumin 2.8 g/dL (3.4-5.0) Albumin/Globulin Ratio 0.5 (1.0-1.7) Lactic Acid Level 0.6 mmol/L (0.4-2.0) Test 12/03/18 04:30 White Blood Count 10.9 x10^3/uL (4.0-11.0) Red Blood Count 3.78 x10^6/uL (3.50-5.40) Hemoglobin 8.6 g/dL (12.0-15.5) Hematocrit 28.8 % (36.0-47.0) Mean Corpuscular Volume 76 fL (79-100) Mean Corpuscular Hemoglobin 23 pg (25-35) Mean Corpuscular Hemoglobin Concent 30 g/dL (31-37) Red Cell Distribution Width 17.6 % (11.5-14.5) Platelet Count 399 x10^3/uL (140-400) Neutrophils (%) (Auto) 62 % (31-73) Lymphocytes (%) (Auto) 28 % (24-48) Monocytes (%) (Auto) 6 % (0-9) Eosinophils (%) (Auto) 3 % (0-3) Basophils (%) (Auto) 1 % (0-3) Neutrophils # (Auto) 6.8 x10^3uL (1.8-7.7) Lymphocytes # (Auto) 3.0 x10^3/uL (1.0-4.8) Monocytes # (Auto) 0.7 x10^3/uL (0.0-1.1) Eosinophils # (Auto) 0.3 x10^3/uL (0.0-0.7) Basophils # (Auto) 0.1 x10^3/uL (0.0-0.2) Sodium Level 140 mmol/L (136-145) Potassium Level 4.3 mmol/L (3.5-5.1) Chloride Level 105 mmol/L (98-107) Carbon Dioxide Level 30 mmol/L (21-32) Anion Gap 5 (6-14) Blood Urea Nitrogen 9 mg/dL (7-20) Creatinine 0.8 mg/dL (0.6-1.0) Estimated GFR (Cockcroft-Gault) 84.2 Glucose Level 84 mg/dL (70-99) Calcium Level 8.5 mg/dL (8.5-10.1) Triglycerides Level 85 mg/dL (0-150) Cholesterol Level 101 mg/dL (0-200) LDL Cholesterol, Calculated 45 mg/dL (0-100) VLDL Cholesterol, Calculated 17 mg/dL (0-40) Non-HDL Cholesterol Calculated 62 mg/dL (0-129) HDL Cholesterol 39 mg/dL (40-60) Cholesterol/HDL Ratio 2.6 Procalcitonin < 0.10 ng/mL (0.00-0.10) ECHOCARDIOGRAM ECHOCARDIOGRAM <Conclusion> The left ventricle cavity is small. The left ventricle is hyperdynamic. LV ejection fraction is 60-65%. There is moderate concentric left ventricular hypertrophy. Doppler and Color Flow revealed trace aortic regurgitation. There is no significant aortic valvular stenosis. Doppler and Color Flow revealed trace mitral valve regurgitation. Doppler and Color Flow revealed mild tricuspid regurgitation. The PA pressure was estimated at 48 mmHg. DATE: 11/23/17 155 STRESS TEST STRESS TEST Conclusion 1. Lexiscan nuclear stress test done without complications. 2. No EKG evidence of stress-induced ischemia. 3. Nuclear imaging shows no reversible ischemia or infarction. 4. Normal left ventricular systolic function with an ejection fraction of greater than 70%. 5. Low risk Lexiscan nuclear stress test. DATE: 12/05/13 0943 ASSESSMENT/PLAN ASSESSMENT/PLAN 1. Acute on chronic respiratory failure with probable recurrent pneumonia and COPD. CXR with infiltrates. Continue treatment as per pulmonary and ID. 2. Chest pain, atypical. AMI ruled out. LVEF 60-65% per echo 11/2017 as noted above. Most probably due to persistent cough. Supportive care from a CV perspective. 3. Chronic diastolic CHF. NT Pro BNP WNL. Doubt overt HF 4. Hypertension; controlled. Resume Norvasc. Hydralazine IV PRN 5. Hx of laryngeal CA and SCC with trach 6. Hx of dysphagia with PEG 7. Dementia ANUJ DUNCAN APRN Dec 03, 2018 11:18
[2018-12-03] MEDS: METOCLOPRAMIDE 10 MG TABLET. PEG SCH ×3 (11:58→20:52)
--- NOTE | 2018-12-03 11:59 | CARD ---
MR#: [id number] Date of Study: 12/03/2018 Ordering Physician: ANUJ DUNCAN, Referring Physician: CUONG SHIRLEY, Tech: Cathi Romero [facility] APPROVED REPORT EXAM: Two-dimensional and M-mode echocardiogram with Doppler and color Doppler. Other Information Quality : AverageHR: 86bpm Rhythm : NSR INDICATION Chest Pain 2D DIMENSIONS RVDd3.1 (2.9-3.5cm)Left Atrium(2D)3.7 (1.6-4.0cm) IVSd1.7 (0.7-1.1cm)Aortic Root(2D)2.9 (2.0-3.7cm) LVDd3.8 (3.9-5.9cm)LVOT Diameter1.9 (1.8-2.4cm) PWd1.0 (0.7-1.1cm)LVDs2.1 (2.5-4.0cm) FS (%) 44.6 %SV48.6 ml M-Mode DIMENSIONS Left Atrium(MM)3.90 (2.5-4.0cm)Aortic Root3.00 (2.2-3.7cm) Aortic Valve AoV Peak Louie.175.9cm/sAoV VTI32.1cm AO Peak GR.12.4mmHgLVOT VTI 19.61cm AO Mean GR.6mmHgAVA (VTI)1.70cm2 Mitral Valve MV E Mqjgydib470.7cm/sMV E Peak Gr.12mmHg MV DECEL [id number] A Gisndjoj397.1cm/s MV E Mean Gr.5mmHgE/A Ratio0.7 MV A [id number] Tricuspid Valve TR P. Ilquohjm535mn/sRAP [id number] TR Peak Gr.[id number] LEFT VENTRICLE The left ventricle is normal size. There is mild to moderate concentric left ventricular hypertrophy. The left ventricular systolic function is normal and the ejection fraction is within normal range. T he Ejection Fraction is 60-65%. There is normal LV segmental wall motion. Transmitral Doppler flow pa ttern is abnormal. RIGHT VENTRICLE The right ventricle is normal size. There is normal right ventricular wall thickness. The right ventr icular systolic function is normal. ATRIA The left atrium is mildly dilated. The right atrium size is normal. The interatrial septum is intact with no evidence for an atrial septal defect or patent foramen ovale as noted on 2-D or Doppler imagi ng. AORTIC VALVE The aortic valve is mildly to moderately calcified. The aortic valve is trileaflet. Doppler and Color Flow revealed no significant aortic regurgitation. There is no significant aortic valvular stenosis. MITRAL VALVE Mitral annular calcification is moderate. The mitral valve is calcified and displays decreased openin g. There is no evidence of mitral valve prolapse. There is mild mitral valve stenosis. Doppler and Co avi-flow revealed mild mitral regurgitation. TRICUSPID VALVE The tricuspid valve is normal in structure and function. Doppler and Color Flow revealed mild tricusp id regurgitation. The PA pressure was estimated at 54 mmHg. There is no tricuspid valve prolapse or v egetation. There is no tricuspid valve stenosis. PULMONIC VALVE The pulmonary valve is normal in structure and function. Doppler and Color Flow revealed mild pulmoni c valvular regurgitation. There is no pulmonic valvular stenosis. GREAT VESSELS The aortic root is normal in size. The ascending aorta is normal in size. The IVC was not visualized. PERICARDIAL EFFUSION There is no evidence of significant pericardial effusion. Critical Notification Critical Value: No <Conclusion> The left ventricle is normal size. The left ventricular systolic function is normal and the ejection fraction is within normal range. The Ejection Fraction is 60-65%. There is mild to moderate concentric left ventricular hypertrophy. There is no significant aortic valvular stenosis. Doppler and Color Flow revealed no significant aortic regurgitation. Doppler and Color-flow revealed mild mitral regurgitation. There is mild mitral valve stenosis. Doppler and Color Flow revealed mild tricuspid regurgitation. The PA pressure was estimated at 54 mmHg. Signed by : Randal Ramesh MD Electronically Approved : 12/03/2018 11:59:07
[2018-12-03] MEDS: VANCOMYCIN PER PHARMACY MC PRN (14:06)
[2018-12-03] MEDS: VANCOMYCIN 1 GM in IV NORMAL SALINE 250ML 250 ML IV SCH (14:17)
[2018-12-03] MEDS: LANSOPRAZOLE 30 MG TAB.RAP.DR PEG SCH (18:00)
[2018-12-03] MEDS: oxyCODONE/APAP 7.5/325 1 TAB TABLET PEG PRN ×2 (18:00→21:58)
--- NOTE | 2018-12-03 21:46 | CONS ---
DATE OF CONSULTATION: 12/03/2018 REQUESTING PHYSICIAN: Miguel Torres M.D. REASON FOR CONSULTATION: Pneumonia/respiratory infection. HISTORY OF PRESENT ILLNESS: This is a 78-year-old -[place] female with multiple medical problems with multiple admissions for respiratory failure and infection, who came in with cough, not feeling well and hypoxia, may be low-grade fever she states. The patient has been admitted as a respiratory infection, started on vancomycin and Zosyn. Consult has been requested. PAST MEDICAL HISTORY: Positive for the patient had a history of lung cancer. The patient had radiation tracheostomy, history of laryngeal cancer, chronic dysphagia, PEG tube is in place. She has had an MDR pseudomonas, also MRSA and COPD. SOCIAL HISTORY: Negative for smoking, alcohol or drug use. ALLERGIES: No known drug allergies. CURRENT MEDICATIONS: Reviewed. REVIEW OF SYSTEMS: As per HPI. All other systems reviewed are negative. PHYSICAL EXAMINATION: GENERAL: Alert, oriented female, not in distress. VITAL SIGNS: Vitals are stable with T-max 99.1. HEENT: NAD. NECK: Supple. No JVP. No lymphadenopathy. LUNGS: Clear. Decreased breath sounds. HEART: S1 and S2 regular. No gallop or murmur. ABDOMEN: Soft and nontender. No organomegaly. EXTREMITIES: No edema or cyanosis. SKIN: Unremarkable. The patient has a tracheostomy with off and on drainage from there. LABORATORY DATA: White count on admission was 14.3 and now down to 10.9. BUN and creatinine is normal. Cultures are pending. LABORATORY DATA: A chest x-ray showed bilateral interstitial opacities and patchy opacities in the right lung base. IMPRESSION: 1. Hypoxic respiratory failure. 2. Respiratory infection. 3. History of lung cancer. 4. Tracheostomy. 5. History of laryngeal cancer. 6. Leukocytosis. PLAN: Recommend continue vancomycin and Zosyn for the time being, supportive care, suctioning and we will continue to follow. Thank you very much, Dr. Torres, for giving me the opportunity to participate in this patient's care. ASTER MATOS MD DR: BAUTISTA/sena JOB#: [id number] / [id number]
[2018-12-04] VITALS (7 sets, daily range): BP systolic 126–189; BP diastolic 54–89
[2018-12-04] MEDS: PIPERACILLIN/TAZOBACTAM 3.375 GM in IV NORMAL SALINE 50ML 50 ML IV SCH ×3 (06:00→17:45)
[2018-12-04] MEDS: ONDANSETRON ODT 4 MG TAB.RAPDIS. PEG PRN ×4 (06:45→22:11)
[2018-12-04] MEDS: oxyCODONE/APAP 7.5/325 1 TAB TABLET PEG PRN ×4 (07:05→22:11)
[2018-12-04] MEDS: ALBUTEROL SULFATE 2.5 MG/3 ML NEBU. NEB SCH ×4 (07:18→19:51)
[2018-12-04 07:45] LABS: BASO # 0.1 x10^3/uL (0.0-0.2); BASO % 1 % (0-3); EOS # 0.4 x10^3/uL (0.0-0.7); EOS % 4 % (0-3); HEMATOCRIT 33.1 % (36.0-47.0); HEMOGLOBIN 9.9 g/dL (12.0-15.5); LYMPH # 1.1 x10^3/uL (1.0-4.8); LYMPH % 11 % (24-48); MEAN CORPUSCULAR HEMOGLOBIN 22 pg (25-35); MEAN CORPUSCULAR HGB CONC 30 g/dL (31-37); MEAN CORPUSCULAR VOLUME 75 fL (79-100); MONO # 0.6 x10^3/uL (0.0-1.1); MONO % 6 % (0-9); NEUT # 8.6 x10^3uL (1.8-7.7); NEUT % 80 % (31-73); PLATELET COUNT 420 x10^3/uL (140-400); RED BLOOD COUNT 4.44 x10^6/uL (3.50-5.40); RED CELL DISTRIBUTION WIDTH 17.6 % (11.5-14.5); WHITE BLOOD COUNT 10.7 x10^3/uL (4.0-11.0)
[2018-12-04 08:00] LABS: ALBUMIN 2.4 g/dL (3.4-5.0); ALBUMIN/GLOBULIN RATIO 0.4 (1.0-1.7); CALCIUM 8.8 mg/dL (8.5-10.1); CREATININE 0.8 mg/dL (0.6-1.0); GFR 84.2; POTASSIUM 3.7 mmol/L (3.5-5.1); TOTAL BILIRUBIN 0.4 mg/dL (0.2-1.0)
[2018-12-04] MEDS: VANCOMYCIN PER PHARMACY MC PRN ×2 (08:59→09:04)
[2018-12-04] MEDS: CYPROHEPTADINE 4 MG TABLET. PEG SCH ×3 (09:02→20:35)
[2018-12-04] MEDS: METOCLOPRAMIDE 10 MG TABLET. PEG SCH ×4 (09:02→20:36)
[2018-12-04] MEDS: LANSOPRAZOLE 30 MG TAB.RAP.DR PEG SCH ×2 (09:02→15:41)
[2018-12-04] MEDS: amLODIPine BESYLATE 5 MG TABLET PEG SCH (09:03)
[2018-12-04] MEDS: DONEPEZIL HCL 5 MG TABLET. PEG SCH ×2 (09:03→20:36)
[2018-12-04] MEDS: VANCOMYCIN 1 GM in IV NORMAL SALINE 250ML 250 ML IV SCH ×2 (09:25→20:34)
--- NOTE | 2018-12-04 10:16 | PDOC ---
Infectious Disease Note Subjective Subjective Says not feeling any better + cough and chest congestion No F/chills/N/V/D ROS ROS per HPI Vital Sign Vital Signs Vital Signs Date Time Temp Pulse Resp B/P (MAP) Pulse Ox O2 Delivery O2 Flow Rate FiO2 12/04/18 09:31 18 97 10.0 12/04/18 09:03 62 135/54 12/04/18 08:00 Trach Collar 12/04/18 07:00 97.5 97.5 Physical Exam PHYSICAL EXAM GENERAL: Propped up in bed, resting quietly NECK: Trach LUNGS: Congested,,nonlabored HEART: S1 and S2 ABDOMEN: Soft and nontender. EXTREMITIES: No edema or cyanosis. SKIN: warm without rash MATH AND SCIENCES DEPARTMENT CHAIR: Arouses to name, responds appropriately Port - clean Labs Lab Laboratory Tests Test 12/04/18 07:20 White Blood Count 10.7 x10^3/uL (4.0-11.0) Red Blood Count 4.44 x10^6/uL (3.50-5.40) Hemoglobin 9.9 g/dL (12.0-15.5) Hematocrit 33.1 % (36.0-47.0) Mean Corpuscular Volume 75 fL (79-100) Mean Corpuscular Hemoglobin 22 pg (25-35) Mean Corpuscular Hemoglobin Concent 30 g/dL (31-37) Red Cell Distribution Width 17.6 % (11.5-14.5) Platelet Count 420 x10^3/uL (140-400) Neutrophils (%) (Auto) 80 % (31-73) Lymphocytes (%) (Auto) 11 % (24-48) Monocytes (%) (Auto) 6 % (0-9) Eosinophils (%) (Auto) 4 % (0-3) Basophils (%) (Auto) 1 % (0-3) Neutrophils # (Auto) 8.6 x10^3uL (1.8-7.7) Lymphocytes # (Auto) 1.1 x10^3/uL (1.0-4.8) Monocytes # (Auto) 0.6 x10^3/uL (0.0-1.1) Eosinophils # (Auto) 0.4 x10^3/uL (0.0-0.7) Basophils # (Auto) 0.1 x10^3/uL (0.0-0.2) Sodium Level 136 mmol/L (136-145) Potassium Level 3.7 mmol/L (3.5-5.1) Chloride Level 100 mmol/L (98-107) Carbon Dioxide Level 32 mmol/L (21-32) Anion Gap 4 (6-14) Blood Urea Nitrogen 10 mg/dL (7-20) Creatinine 0.8 mg/dL (0.6-1.0) Estimated GFR (Cockcroft-Gault) 84.2 BUN/Creatinine Ratio 13 (6-20) Glucose Level 164 mg/dL (70-99) Calcium Level 8.8 mg/dL (8.5-10.1) Total Bilirubin 0.4 mg/dL (0.2-1.0) Aspartate Amino Transf (AST/SGOT) 17 U/L (15-37) Alanine Aminotransferase (ALT/SGPT) 7 U/L (14-59) Alkaline Phosphatase 59 U/L (46-116) Total Protein 8.0 g/dL (6.4-8.2) Albumin 2.4 g/dL (3.4-5.0) Albumin/Globulin Ratio 0.4 (1.0-1.7) Vancomycin Level Trough 9.0 mcg/mL (10.0-20.0) Vancomycin Last Dose Date 12/03/18 Vancomycin Last Dose Time 1400 Micro 12/02/18 Blood Culture - Preliminary, Resulted NO GROWTH AFTER 1 DAY GRAM STAIN RESULT 1 Final Many gram positive cocci. GRAM STAIN RESULT 2 Final Many gram negative rods. Objective Assessment Hypoxic respiratory failure. Respiratory infection. GPC/GNR on gram stain History of lung cancer. Tracheostomy. History of laryngeal cancer. Leukocytosis,,improved Plan Plan of Care vancomycin and Zosyn Trough 9.0 Monitor labs/renal function closely f/u cultures Supportive care Patient seen, examined, I agree with above. Assessment and plan was coformulated with HORTICULTURAL MANAGER. RAISA VILLAR APRN Dec 04, 2018 10:16 ELIE MATOS MD Dec 04, 2018 15:06
--- NOTE | 2018-12-04 10:30 | PDOC ---
PROGRESS NOTES Chief Complaint Chief Complaint history of lung cancer and tracheostomy with recurrent infection. 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 The patient came in with shortness of breath, low-grade fever, leukocytosis. no chest pain at this time but primarily has cough with fever and an x-ray c/w pneumonia. has laryngeal cancer, history of dysphagia, PEG tube in place, tracheostomy in place. 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 History of Present Illness History of Present Illness Assessment/Plan Assessment/Plan IMPRESSION 1. Nlosy-is-raffeqi hypoxic respiratory failure secondary // suspected recurrent pneumonia. possible aspiration 2. Fever with abnormal chest x-ray with bilateral infiltrates, likely related to pneumonia. //history of multidrug resistant Pseudomonas aeruginosa pneumonia and methicillin resistant Staphylococcus aureus pneumonia. 3. chronic obstructive pulmonary disease with compensated respiratory acidosis and chronic hypoxic respiratory failure. 4. Leukocytosis // secondary to the infectious process 5. dementia 6. laryngeal cancer, 7.history of dysphagia, PEG tube in place, 8. tracheostomy in place 9. ASPIRATION PNEUMONIA PLAN PULM CONSULT Emperic iv antibiotics, zosyn, vanc ID CONSULT Supportive care. Overall, long-term prognosis is poor per my chart review//. Discussed family// patient dvt prophylaxis trach secretion for C and S. 31 min pt exam, chart review > 50% of time with exam, chart review, pt care coordination Vitals Vitals Vital Signs Date Time Temp Pulse Resp B/P (MAP) Pulse Ox O2 Delivery O2 Flow Rate FiO2 12/04/18 09:31 18 97 10.0 12/04/18 09:03 62 135/54 12/04/18 08:00 Trach Collar 12/04/18 07:00 97.5 97.5 Physical Exam Physical Exam GENERAL: Propped up in bed, resting quietly NECK: Trach LUNGS: Congested,,nonlabored HEART: S1 and S2 ABDOMEN: Soft and nontender. EXTREMITIES: No edema or cyanosis. SKIN: warm without rash BRANDS EDITOR: Arouses to name, responds appropriately Port - clean General: Cooperative, mild distress Heart: Regular rate Lungs: Crackles, Other Abdomen: Soft Extremities: No cyanosis, No tenderness/swelling Labs LABS Laboratory Tests Test 12/04/18 07:20 White Blood Count 10.7 x10^3/uL (4.0-11.0) Red Blood Count 4.44 x10^6/uL (3.50-5.40) Hemoglobin 9.9 g/dL (12.0-15.5) Hematocrit 33.1 % (36.0-47.0) Mean Corpuscular Volume 75 fL (79-100) Mean Corpuscular Hemoglobin 22 pg (25-35) Mean Corpuscular Hemoglobin Concent 30 g/dL (31-37) Red Cell Distribution Width 17.6 % (11.5-14.5) Platelet Count 420 x10^3/uL (140-400) Neutrophils (%) (Auto) 80 % (31-73) Lymphocytes (%) (Auto) 11 % (24-48) Monocytes (%) (Auto) 6 % (0-9) Eosinophils (%) (Auto) 4 % (0-3) Basophils (%) (Auto) 1 % (0-3) Neutrophils # (Auto) 8.6 x10^3uL (1.8-7.7) Lymphocytes # (Auto) 1.1 x10^3/uL (1.0-4.8) Monocytes # (Auto) 0.6 x10^3/uL (0.0-1.1) Eosinophils # (Auto) 0.4 x10^3/uL (0.0-0.7) Basophils # (Auto) 0.1 x10^3/uL (0.0-0.2) Sodium Level 136 mmol/L (136-145) Potassium Level 3.7 mmol/L (3.5-5.1) Chloride Level 100 mmol/L (98-107) Carbon Dioxide Level 32 mmol/L (21-32) Anion Gap 4 (6-14) Blood Urea Nitrogen 10 mg/dL (7-20) Creatinine 0.8 mg/dL (0.6-1.0) Estimated GFR (Cockcroft-Gault) 84.2 BUN/Creatinine Ratio 13 (6-20) Glucose Level 164 mg/dL (70-99) Calcium Level 8.8 mg/dL (8.5-10.1) Total Bilirubin 0.4 mg/dL (0.2-1.0) Aspartate Amino Transf (AST/SGOT) 17 U/L (15-37) Alanine Aminotransferase (ALT/SGPT) 7 U/L (14-59) Alkaline Phosphatase 59 U/L (46-116) Total Protein 8.0 g/dL (6.4-8.2) Albumin 2.4 g/dL (3.4-5.0) Albumin/Globulin Ratio 0.4 (1.0-1.7) Vancomycin Level Trough 9.0 mcg/mL (10.0-20.0) Vancomycin Last Dose Date 12/03/18 Vancomycin Last Dose Time 1400 Assessment and Plan Assessmemt and Plan Problems Medical Problems: (1) Healthcare-associated pneumonia Status: Acute Comment Review of Relevant I have reviewed the following items miko (where applicable) has been applied. Labs Laboratory Tests Test 12/02/18 15:35 12/02/18 17:35 12/02/18 19:40 12/03/18 00:30 White Blood Count 14.3 x10^3/uL (4.0-11.0) Red Blood Count 4.11 x10^6/uL (3.50-5.40) Hemoglobin 9.1 g/dL (12.0-15.5) Hematocrit 31.1 % (36.0-47.0) Mean Corpuscular Volume 76 fL (79-100) Mean Corpuscular Hemoglobin 22 pg (25-35) Mean Corpuscular Hemoglobin Concent 29 g/dL (31-37) Red Cell Distribution Width 17.9 % (11.5-14.5) Platelet Count 423 x10^3/uL (140-400) Neutrophils (%) (Auto) 76 % (31-73) Lymphocytes (%) (Auto) 15 % (24-48) Monocytes (%) (Auto) 8 % (0-9) Eosinophils (%) (Auto) 1 % (0-3) Basophils (%) (Auto) 0 % (0-3) Neutrophils # (Auto) 10.9 x10^3uL (1.8-7.7) Lymphocytes # (Auto) 2.1 x10^3/uL (1.0-4.8) Monocytes # (Auto) 1.1 x10^3/uL (0.0-1.1) Eosinophils # (Auto) 0.1 x10^3/uL (0.0-0.7) Basophils # (Auto) 0.1 x10^3/uL (0.0-0.2) Platelet Estimate Increased (ADEQUATE) Large Platelets Occ Hypochromasia Mod Anisocytosis Slight Microcytosis Mod Sodium Level 138 mmol/L (136-145) Potassium Level 4.6 mmol/L (3.5-5.1) Chloride Level 100 mmol/L (98-107) Carbon Dioxide Level 33 mmol/L (21-32) Anion Gap 5 (6-14) Blood Urea Nitrogen 13 mg/dL (7-20) Creatinine 0.9 mg/dL (0.6-1.0) Estimated GFR (Cockcroft-Gault) 73.5 BUN/Creatinine Ratio 14 (6-20) Glucose Level 99 mg/dL (70-99) Calcium Level 9.0 mg/dL (8.5-10.1) Total Bilirubin 0.3 mg/dL (0.2-1.0) Aspartate Amino Transf (AST/SGOT) 13 U/L (15-37) Alanine Aminotransferase (ALT/SGPT) 10 U/L (14-59) Alkaline Phosphatase 61 U/L (46-116) Troponin I Quantitative 0.043 ng/mL (0.000-0.055) 0.040 ng/mL (0.000-0.055) 0.037 ng/mL (0.000-0.055) Total Protein 8.2 g/dL (6.4-8.2) Albumin 2.8 g/dL (3.4-5.0) Albumin/Globulin Ratio 0.5 (1.0-1.7) Lactic Acid Level 0.6 mmol/L (0.4-2.0) Test 12/03/18 04:30 12/04/18 07:20 White Blood Count 10.9 x10^3/uL (4.0-11.0) 10.7 x10^3/uL (4.0-11.0) Red Blood Count 3.78 x10^6/uL (3.50-5.40) 4.44 x10^6/uL (3.50-5.40) Hemoglobin 8.6 g/dL (12.0-15.5) 9.9 g/dL (12.0-15.5) Hematocrit 28.8 % (36.0-47.0) 33.1 % (36.0-47.0) Mean Corpuscular Volume 76 fL (79-100) 75 fL (79-100) Mean Corpuscular Hemoglobin 23 pg (25-35) 22 pg (25-35) Mean Corpuscular Hemoglobin Concent 30 g/dL (31-37) 30 g/dL (31-37) Red Cell Distribution Width 17.6 % (11.5-14.5) 17.6 % (11.5-14.5) Platelet Count 399 x10^3/uL (140-400) 420 x10^3/uL (140-400) Neutrophils (%) (Auto) 62 % (31-73) 80 % (31-73) Lymphocytes (%) (Auto) 28 % (24-48) 11 % (24-48) Monocytes (%) (Auto) 6 % (0-9) 6 % (0-9) Eosinophils (%) (Auto) 3 % (0-3) 4 % (0-3) Basophils (%) (Auto) 1 % (0-3) 1 % (0-3) Neutrophils # (Auto) 6.8 x10^3uL (1.8-7.7) 8.6 x10^3uL (1.8-7.7) Lymphocytes # (Auto) 3.0 x10^3/uL (1.0-4.8) 1.1 x10^3/uL (1.0-4.8) Monocytes # (Auto) 0.7 x10^3/uL (0.0-1.1) 0.6 x10^3/uL (0.0-1.1) Eosinophils # (Auto) 0.3 x10^3/uL (0.0-0.7) 0.4 x10^3/uL (0.0-0.7) Basophils # (Auto) 0.1 x10^3/uL (0.0-0.2) 0.1 x10^3/uL (0.0-0.2) Sodium Level 140 mmol/L (136-145) 136 mmol/L (136-145) Potassium Level 4.3 mmol/L (3.5-5.1) 3.7 mmol/L (3.5-5.1) Chloride Level 105 mmol/L (98-107) 100 mmol/L (98-107) Carbon Dioxide Level 30 mmol/L (21-32) 32 mmol/L (21-32) Anion Gap 5 (6-14) 4 (6-14) Blood Urea Nitrogen 9 mg/dL (7-20) 10 mg/dL (7-20) Creatinine 0.8 mg/dL (0.6-1.0) 0.8 mg/dL (0.6-1.0) Estimated GFR (Cockcroft-Gault) 84.2 84.2 Glucose Level 84 mg/dL (70-99) 164 mg/dL (70-99) Calcium Level 8.5 mg/dL (8.5-10.1) 8.8 mg/dL (8.5-10.1) [id number]-Nqa-[id number]-Type Natriuretic Peptide 290 pg/mL (0-449) Triglycerides Level 85 mg/dL (0-150) Cholesterol Level 101 mg/dL (0-200) LDL Cholesterol, Calculated 45 mg/dL (0-100) VLDL Cholesterol, Calculated 17 mg/dL (0-40) Non-HDL Cholesterol Calculated 62 mg/dL (0-129) HDL Cholesterol 39 mg/dL (40-60) Cholesterol/HDL Ratio 2.6 Procalcitonin < 0.10 ng/mL (0.00-0.10) BUN/Creatinine Ratio 13 (6-20) Total Bilirubin 0.4 mg/dL (0.2-1.0) Aspartate Amino Transf (AST/SGOT) 17 U/L (15-37) Alanine Aminotransferase (ALT/SGPT) 7 U/L (14-59) Alkaline Phosphatase 59 U/L (46-116) Total Protein 8.0 g/dL (6.4-8.2) Albumin 2.4 g/dL (3.4-5.0) Albumin/Globulin Ratio 0.4 (1.0-1.7) Vancomycin Level Trough 9.0 mcg/mL (10.0-20.0) Vancomycin Last Dose Date 12/03/18 Vancomycin Last Dose Time 1400 Laboratory Tests Test 12/04/18 07:20 White Blood Count 10.7 x10^3/uL (4.0-11.0) Red Blood Count 4.44 x10^6/uL (3.50-5.40) Hemoglobin 9.9 g/dL (12.0-15.5) Hematocrit 33.1 % (36.0-47.0) Mean Corpuscular Volume 75 fL (79-100) Mean Corpuscular Hemoglobin 22 pg (25-35) Mean Corpuscular Hemoglobin Concent 30 g/dL (31-37) Red Cell Distribution Width 17.6 % (11.5-14.5) Platelet Count 420 x10^3/uL (140-400) Neutrophils (%) (Auto) 80 % (31-73) Lymphocytes (%) (Auto) 11 % (24-48) Monocytes (%) (Auto) 6 % (0-9) Eosinophils (%) (Auto) 4 % (0-3) Basophils (%) (Auto) 1 % (0-3) Neutrophils # (Auto) 8.6 x10^3uL (1.8-7.7) Lymphocytes # (Auto) 1.1 x10^3/uL (1.0-4.8) Monocytes # (Auto) 0.6 x10^3/uL (0.0-1.1) Eosinophils # (Auto) 0.4 x10^3/uL (0.0-0.7) Basophils # (Auto) 0.1 x10^3/uL (0.0-0.2) Sodium Level 136 mmol/L (136-145) Potassium Level 3.7 mmol/L (3.5-5.1) Chloride Level 100 mmol/L (98-107) Carbon Dioxide Level 32 mmol/L (21-32) Anion Gap 4 (6-14) Blood Urea Nitrogen 10 mg/dL (7-20) Creatinine 0.8 mg/dL (0.6-1.0) Estimated GFR (Cockcroft-Gault) 84.2 BUN/Creatinine Ratio 13 (6-20) Glucose Level 164 mg/dL (70-99) Calcium Level 8.8 mg/dL (8.5-10.1) Total Bilirubin 0.4 mg/dL (0.2-1.0) Aspartate Amino Transf (AST/SGOT) 17 U/L (15-37) Alanine Aminotransferase (ALT/SGPT) 7 U/L (14-59) Alkaline Phosphatase 59 U/L (46-116) Total Protein 8.0 g/dL (6.4-8.2) Albumin 2.4 g/dL (3.4-5.0) Albumin/Globulin Ratio 0.4 (1.0-1.7) Vancomycin Level Trough 9.0 mcg/mL (10.0-20.0) Vancomycin Last Dose Date 12/03/18 Vancomycin Last Dose Time 1400 Microbiology 12/02/18 Blood Culture - Preliminary, Resulted NO GROWTH AFTER 1 DAY 12/02/18 - Final, Resulted 12/02/18 - Final, Resulted 12/02/18 - Final, Resulted 12/02/18 - Final, Resulted 12/02/18 Gram Stain Evaluation - Final, Resulted 12/02/18 Sputum Culture, Resulted Pending Medications Current Medications Albuterol/ Ipratropium (Duoneb) 3 ml STK-MED ONCE .ROUTE ; Start 12/02/18 at 15: 16; Stop 12/02/18 at 15:17; Status DC Ondansetron HCl (Zofran) 4 mg PRN Q8HRS PRN IV NAUSEA/VOMITING; Start 12/02/18 at 16:45; Stop 12/03/18 at 16:44; Status DC Morphine Sulfate (Morphine Sulfate) 2 mg PRN Q2HR PRN IV PAIN Last administered on 12/03/18at 14:16; Start 12/02/18 at 16:45; Stop 12/03/18 at 16:44 ; Status DC Sodium Chloride 1,000 ml @ 100 mls/hr Q10H IV Last administered on 12/02/18at 19:41; Start 12/02/18 at 16:39; Stop 12/02/18 at 20:38; Status DC Vancomycin HCl (Vanco Per Pharmacy) 1 each PRN DAILY PRN MC SEE COMMENTS Last administered on 12/04/18at 09:04; Start 12/02/18 at 16:45 Piperacillin Sod/ Tazobactam Sod (Zosyn Per Pharmacy) 1 each PRN DAILY PRN MC SEE COMMENTS; Start 12/02/18 at 16:45 Vancomycin HCl 1.25 gm/Sodium Chloride 250 ml @ 167 mls/hr ONCE ONCE IV Last administered on 12/02/18at 19:39; Start 12/02/18 at 17:00; Stop 12/02/18 at 18:29 ; Status DC Piperacillin Sod/ Tazobactam Sod 4.5 gm/Sodium Chloride 100 ml @ 200 mls/hr ONCE ONCE IV Last administered on 12/02/18at 17:02; Start 12/02/18 at 17:00; Stop 12/02/18 at 17:29; Status DC Piperacillin Sod/ Tazobactam Sod 3.375 gm/Sodium Chloride 50 ml @ 100 mls/hr Q6HRS IV Last administered on 12/04/18at 06:00; Start 12/03/18 at 00:00 Vancomycin HCl 1 gm/Sodium Chloride 250 ml @ 250 mls/hr Q18H IV Last administered on 12/04/18at 09:25; Start 12/03/18 at 14:00; Stop 12/04/18 at 12:00 Vancomycin HCl (Vancomycin Trough Level) 1 each 1X ONCE MC ; Start 12/04/18 at 07:30; Stop 12/04/18 at 07:31; Status DC Sodium Chloride 750 ml @ 375 mls/hr 1X ONCE IV Last administered on at 19:31; Start 12/02/18 at 19:00; Stop 12/02/18 at 20:59; Status DC Amlodipine Besylate (Norvasc) 5 mg DAILY PO Last administered on 12/03/18at 09: 25; Start 12/03/18 at 09:00; Stop 12/03/18 at 09:54; Status DC Fentanyl (Duragesic 50mcg/ Hr Patch) 1 patch Q3DAYS TD ; Start 12/05/18 at 09:00 Gabapentin (Neurontin) 300 mg PRN BID PRN PO NEUROPATHIC PAIN; Start 12/02/18 at 23:30 Lactobacillus Rhamnosus (Culturelle) 1 cap BID PO Last administered on at 09:24; Start 12/03/18 at 09:00; Stop 12/03/18 at 09:52; Status DC Metoclopramide HCl (Reglan) 5 mg QIDACHS PO Last administered on 12/03/18at 09: 24; Start 12/03/18 at 07:30; Stop 12/03/18 at 09:54; Status DC Ondansetron HCl (Zofran Odt) 4 mg PRN QID PRN PEG NAUSEA/VOMITING Last administered on 12/04/18at 06:45; Start 12/02/18 at 23:30 Oxycodone/ Acetaminophen (Percocet 7.5/ 325) 1 tab PRN QID PRN PO PAIN Last administered on 12/03/18 09:26; Start 12/02/18 at 23:30; Stop 12/03/18 at 09:54 ; Status DC Pantoprazole Sodium (Protonix) 40 mg BIDBFRMEAL PO Last administered on 09:24; Start 12/03/18 at 07:30; Stop 12/03/18 at 09:53; Status DC Non-Formulary Medication (Albuterol Sulfate (Albuterol Sulfate Neb Soln)) 1 vial QID NEB ; Start 12/03/18 at 09:00; Status UNV Cyproheptadine HCl (Periactin) 4 mg TID PEG Last administered on 12/04/18 09: 02; Start 12/03/18 at 09:00 Donepezil HCl (Aricept) 5 mg BID PEG Last administered on 12/04/18 09:03; Start 12/03/18 at 09:00 Albuterol Sulfate (Ventolin Neb Soln) 2.5 mg RTQID NEB Last administered on 07:18; Start 12/03/18 at 08:00 Lansoprazole (Prevacid) 30 mg BIDBFRMEAL PEG Last administered on 12/04/18 09: 02; Start 12/03/18 at 16:30 Amlodipine Besylate (Norvasc) 5 mg DAILY PEG Last administered on 12/04/18 09: 03; Start 12/03/18 at 09:54 Metoclopramide HCl (Reglan) 5 mg QIDACHS PEG Last administered on 12/04/18 09: 02; Start 12/03/18 at 09:54 Oxycodone/ Acetaminophen (Percocet 7.5/ 325) 1 tab PRN QID PRN PEG PAIN Last administered on 12/04/18 07:05; Start 12/03/18 at 09:54 Hydralazine HCl (Apresoline Inj) 10 mg PRN Q4HRS PRN IVP ELEVATED BP, SEE COMMENTS; Start 12/03/18 at 16:15 Vancomycin HCl 1 gm/Sodium Chloride 250 ml @ 250 mls/hr Q12H IV ; Start at 21:00 Vancomycin HCl (Vancomycin Trough Level) 1 each 1X ONCE MC ; Start 12/05/18 at 20:30; Stop 12/05/18 at 20:31 Active Scripts Active Culturelle (Lactobacillus Rhamnosus Gg) 1 Each Cap.sprink 1 Cap PO BID 30 Days Reported Albuterol Sulfate Neb Soln (Albuterol Sulfate) 0.63 Mg/3 Ml Vial.neb 1 Vial NEB QID Gabapentin (Gabapentin) 300 Mg Capsule 300 Mg PO BID PRN Amlodipine Besylate 5 Mg Tablet 5 Mg PO DAILY Pantoprazole Sodium 40 Mg Tablet.dr 40 Mg PEG BID Donepezil Hcl 5 Mg Tablet 5 Mg PEG BID Reglan (Metoclopramide Hcl) 10 Mg Tablet 5 Mg PO QIDACHS Cyproheptadine Hcl 2 Mg/5 Ml Syrup 10 Ml PEG TID Percocet 7.5-325 Mg Tablet (Oxycodone/Acetaminophen) 1 Each Tablet 1 Tab PO QID PRN FENTANYL 50mcg/hr (Fentanyl) 1 Each Patch.td72 1 Patch TP Q3DAYS Ondansetron Odt (Ondansetron) 4 Mg Tab.rapdis 4 Mg PEG QIDPRN PRN Vitals/I & O Vital Sign - Last 24 Hours 12/03/18 12/03/18 12/03/18 12/03/18 11:00 11:46 14:16 14:46 Temp 96.5 96.5 Pulse 86 Resp 20 B/P (MAP) 141/64 (89) Pulse Ox 92 O2 Delivery Tracheal Collar Tracheal Collar O2 Flow Rate 10.0 10.0 10.0 12/03/18 12/03/18 12/03/18 12/03/18 15:41 15:43 15:52 19:16 Temp 97.3 97.3 Pulse 88 Resp 22 B/P (MAP) 195/86 (122) 142/65 (90) Pulse Ox 90 85 90 O2 Delivery Tracheal Collar Tracheal Collar Tracheal Collar O2 Flow Rate 10.0 10.0 12/03/18 12/03/18 12/03/18 12/03/18 19:20 19:50 21:58 23:00 Temp 98.0 98.0 Pulse 90 Resp 20 B/P (MAP) 145/67 (93) Pulse Ox 89 O2 Delivery Tracheal Collar Trach Collar Tracheal Collar Tracheal Collar O2 Flow Rate 10.0 10.0 10.0 3/22/19 3/23/19 3/23/19 3/23/19 23:33 03:05 07:00 07:05 Temp 98.1 98.6 97.5 98.1 98.6 97.5 Pulse 80 86 62 Resp 20 18 18 20 B/P (MAP) 135/65 (88) 161/89 (113) 135/54 (81) Pulse Ox 91 90 96 O2 Delivery BiPAP/CPAP Tracheal Collar Tracheal Collar Tracheal Collar O2 Flow Rate 10.0 10.0 10.0 10.0 12/04/18 12/04/18 12/04/18 12/04/18 07:18 08:00 09:03 09:31 Pulse 62 Resp 18 B/P (MAP) 135/54 Pulse Ox 97 97 O2 Delivery Tracheal Collar Trach Collar O2 Flow Rate 10.0 10.0 10.0 Intake and Output 12/03/18 12/03/18 12/04/18 15:00 23:00 07:00 Intake Total 637 ml 807 ml 450 ml Output Total 600 ml 1075 ml 400 ml Balance 37 ml -268 ml 50 ml Nutrition Consultation Dietary Evaluation: Recommendations by RD: Increase Calorie Intake Comments: Continue TF per current order: Jevity 1.5 bolus QID, 237 ml (1 can)/bolus, w/200 ml water flushes w/each bolus Expected Outcomes/Goals: TF infusion to meet >75% est needs Malnutrition Findings: Body Fat Depletion (Non Severe: Mod to Severe Weight Status: Underweight CUONG SHIRLEY MD Dec 04, 2018 10:30
--- NOTE | 2018-12-04 11:12 | PDOC ---
PULMONARY PROGRESS NOTES Subjective no soa Vitals Vital Signs Date Time Temp Pulse Resp B/P (MAP) Pulse Ox O2 Delivery O2 Flow Rate FiO2 12/04/18 09:31 18 97 10.0 12/04/18 09:03 62 135/54 12/04/18 08:00 Trach Collar 12/04/18 07:00 97.5 97.5 General: Alert, No acute distress Lungs: Crackles (bases), Other Cardiovascular: S1, S2 Abdomen: Soft, Non-tender Extremities: No Edema Skin: Warm Labs Laboratory Tests Test 12/02/18 15:35 12/02/18 17:35 12/02/18 19:40 12/03/18 00:30 White Blood Count 14.3 x10^3/uL (4.0-11.0) Red Blood Count 4.11 x10^6/uL (3.50-5.40) Hemoglobin 9.1 g/dL (12.0-15.5) Hematocrit 31.1 % (36.0-47.0) Mean Corpuscular Volume 76 fL (79-100) Mean Corpuscular Hemoglobin 22 pg (25-35) Mean Corpuscular Hemoglobin Concent 29 g/dL (31-37) Red Cell Distribution Width 17.9 % (11.5-14.5) Platelet Count 423 x10^3/uL (140-400) Neutrophils (%) (Auto) 76 % (31-73) Lymphocytes (%) (Auto) 15 % (24-48) Monocytes (%) (Auto) 8 % (0-9) Eosinophils (%) (Auto) 1 % (0-3) Basophils (%) (Auto) 0 % (0-3) Neutrophils # (Auto) 10.9 x10^3uL (1.8-7.7) Lymphocytes # (Auto) 2.1 x10^3/uL (1.0-4.8) Monocytes # (Auto) 1.1 x10^3/uL (0.0-1.1) Eosinophils # (Auto) 0.1 x10^3/uL (0.0-0.7) Basophils # (Auto) 0.1 x10^3/uL (0.0-0.2) Platelet Estimate Increased (ADEQUATE) Large Platelets Occ Hypochromasia Mod Anisocytosis Slight Microcytosis Mod Sodium Level 138 mmol/L (136-145) Potassium Level 4.6 mmol/L (3.5-5.1) Chloride Level 100 mmol/L (98-107) Carbon Dioxide Level 33 mmol/L (21-32) Anion Gap 5 (6-14) Blood Urea Nitrogen 13 mg/dL (7-20) Creatinine 0.9 mg/dL (0.6-1.0) Estimated GFR (Cockcroft-Gault) 73.5 BUN/Creatinine Ratio 14 (6-20) Glucose Level 99 mg/dL (70-99) Calcium Level 9.0 mg/dL (8.5-10.1) Total Bilirubin 0.3 mg/dL (0.2-1.0) Aspartate Amino Transf (AST/SGOT) 13 U/L (15-37) Alanine Aminotransferase (ALT/SGPT) 10 U/L (14-59) Alkaline Phosphatase 61 U/L (46-116) Troponin I Quantitative 0.043 ng/mL (0.000-0.055) 0.040 ng/mL (0.000-0.055) 0.037 ng/mL (0.000-0.055) Total Protein 8.2 g/dL (6.4-8.2) Albumin 2.8 g/dL (3.4-5.0) Albumin/Globulin Ratio 0.5 (1.0-1.7) Lactic Acid Level 0.6 mmol/L (0.4-2.0) Test 12/03/18 04:30 12/04/18 07:20 White Blood Count 10.9 x10^3/uL (4.0-11.0) 10.7 x10^3/uL (4.0-11.0) Red Blood Count 3.78 x10^6/uL (3.50-5.40) 4.44 x10^6/uL (3.50-5.40) Hemoglobin 8.6 g/dL (12.0-15.5) 9.9 g/dL (12.0-15.5) Hematocrit 28.8 % (36.0-47.0) 33.1 % (36.0-47.0) Mean Corpuscular Volume 76 fL (79-100) 75 fL (79-100) Mean Corpuscular Hemoglobin 23 pg (25-35) 22 pg (25-35) Mean Corpuscular Hemoglobin Concent 30 g/dL (31-37) 30 g/dL (31-37) Red Cell Distribution Width 17.6 % (11.5-14.5) 17.6 % (11.5-14.5) Platelet Count 399 x10^3/uL (140-400) 420 x10^3/uL (140-400) Neutrophils (%) (Auto) 62 % (31-73) 80 % (31-73) Lymphocytes (%) (Auto) 28 % (24-48) 11 % (24-48) Monocytes (%) (Auto) 6 % (0-9) 6 % (0-9) Eosinophils (%) (Auto) 3 % (0-3) 4 % (0-3) Basophils (%) (Auto) 1 % (0-3) 1 % (0-3) Neutrophils # (Auto) 6.8 x10^3uL (1.8-7.7) 8.6 x10^3uL (1.8-7.7) Lymphocytes # (Auto) 3.0 x10^3/uL (1.0-4.8) 1.1 x10^3/uL (1.0-4.8) Monocytes # (Auto) 0.7 x10^3/uL (0.0-1.1) 0.6 x10^3/uL (0.0-1.1) Eosinophils # (Auto) 0.3 x10^3/uL (0.0-0.7) 0.4 x10^3/uL (0.0-0.7) Basophils # (Auto) 0.1 x10^3/uL (0.0-0.2) 0.1 x10^3/uL (0.0-0.2) Sodium Level 140 mmol/L (136-145) 136 mmol/L (136-145) Potassium Level 4.3 mmol/L (3.5-5.1) 3.7 mmol/L (3.5-5.1) Chloride Level 105 mmol/L (98-107) 100 mmol/L (98-107) Carbon Dioxide Level 30 mmol/L (21-32) 32 mmol/L (21-32) Anion Gap 5 (6-14) 4 (6-14) Blood Urea Nitrogen 9 mg/dL (7-20) 10 mg/dL (7-20) Creatinine 0.8 mg/dL (0.6-1.0) 0.8 mg/dL (0.6-1.0) Estimated GFR (Cockcroft-Gault) 84.2 84.2 Glucose Level 84 mg/dL (70-99) 164 mg/dL (70-99) Calcium Level 8.5 mg/dL (8.5-10.1) 8.8 mg/dL (8.5-10.1) JT-Cav-F-Type Natriuretic Peptide 290 pg/mL (0-449) Triglycerides Level 85 mg/dL (0-150) Cholesterol Level 101 mg/dL (0-200) LDL Cholesterol, Calculated 45 mg/dL (0-100) VLDL Cholesterol, Calculated 17 mg/dL (0-40) Non-HDL Cholesterol Calculated 62 mg/dL (0-129) HDL Cholesterol 39 mg/dL (40-60) Cholesterol/HDL Ratio 2.6 Procalcitonin < 0.10 ng/mL (0.00-0.10) BUN/Creatinine Ratio 13 (6-20) Total Bilirubin 0.4 mg/dL (0.2-1.0) Aspartate Amino Transf (AST/SGOT) 17 U/L (15-37) Alanine Aminotransferase (ALT/SGPT) 7 U/L (14-59) Alkaline Phosphatase 59 U/L (46-116) Total Protein 8.0 g/dL (6.4-8.2) Albumin 2.4 g/dL (3.4-5.0) Albumin/Globulin Ratio 0.4 (1.0-1.7) Vancomycin Level Trough 9.0 mcg/mL (10.0-20.0) Vancomycin Last Dose Date 12/03/18 Vancomycin Last Dose Time 1400 Laboratory Tests Test 12/04/18 07:20 White Blood Count 10.7 x10^3/uL (4.0-11.0) Red Blood Count 4.44 x10^6/uL (3.50-5.40) Hemoglobin 9.9 g/dL (12.0-15.5) Hematocrit 33.1 % (36.0-47.0) Mean Corpuscular Volume 75 fL (79-100) Mean Corpuscular Hemoglobin 22 pg (25-35) Mean Corpuscular Hemoglobin Concent 30 g/dL (31-37) Red Cell Distribution Width 17.6 % (11.5-14.5) Platelet Count 420 x10^3/uL (140-400) Neutrophils (%) (Auto) 80 % (31-73) Lymphocytes (%) (Auto) 11 % (24-48) Monocytes (%) (Auto) 6 % (0-9) Eosinophils (%) (Auto) 4 % (0-3) Basophils (%) (Auto) 1 % (0-3) Neutrophils # (Auto) 8.6 x10^3uL (1.8-7.7) Lymphocytes # (Auto) 1.1 x10^3/uL (1.0-4.8) Monocytes # (Auto) 0.6 x10^3/uL (0.0-1.1) Eosinophils # (Auto) 0.4 x10^3/uL (0.0-0.7) Basophils # (Auto) 0.1 x10^3/uL (0.0-0.2) Sodium Level 136 mmol/L (136-145) Potassium Level 3.7 mmol/L (3.5-5.1) Chloride Level 100 mmol/L (98-107) Carbon Dioxide Level 32 mmol/L (21-32) Anion Gap 4 (6-14) Blood Urea Nitrogen 10 mg/dL (7-20) Creatinine 0.8 mg/dL (0.6-1.0) Estimated GFR (Cockcroft-Gault) 84.2 BUN/Creatinine Ratio 13 (6-20) Glucose Level 164 mg/dL (70-99) Calcium Level 8.8 mg/dL (8.5-10.1) Total Bilirubin 0.4 mg/dL (0.2-1.0) Aspartate Amino Transf (AST/SGOT) 17 U/L (15-37) Alanine Aminotransferase (ALT/SGPT) 7 U/L (14-59) Alkaline Phosphatase 59 U/L (46-116) Total Protein 8.0 g/dL (6.4-8.2) Albumin 2.4 g/dL (3.4-5.0) Albumin/Globulin Ratio 0.4 (1.0-1.7) Vancomycin Level Trough 9.0 mcg/mL (10.0-20.0) Vancomycin Last Dose Date 12/03/18 Vancomycin Last Dose Time 1400 Medications Active Scripts Medications Dose Route/Sig Max Daily Dose Days Date Category Albuterol Sulfate Neb Soln (Albuterol Sulfate) 0.63 Mg/3 Ml Vial.neb 1 Vial NEB QID 12/02/18 Reported Gabapentin (Gabapentin) 300 Mg Capsule 300 Mg PO BID PRN 10/19/18 Reported Amlodipine Besylate 5 Mg Tablet 5 Mg PO DAILY 10/19/18 Reported Culturelle (Lactobacillus Rhamnosus Gg) 1 Each Cap.sprink 1 Cap PO BID 30 07/07/17 Rx Pantoprazole Sodium 40 Mg Tablet.dr 40 Mg PEG BID 03/11/17 Reported Donepezil Hcl 5 Mg Tablet 5 Mg PEG BID 03/11/17 Reported Reglan (Metoclopramide Hcl) 10 Mg Tablet 5 Mg PO QIDACHS 03/11/17 Reported Cyproheptadine Hcl 2 Mg/5 Ml Syrup 10 Ml PEG TID 03/11/17 Reported Percocet 7.5-325 Mg Tablet (Oxycodone/Acetaminophen) 1 Each Tablet 1 Tab PO QID PRN 03/11/17 Reported FENTANYL 50mcg/hr (Fentanyl) 1 Each Patch.td72 1 Patch TP Q3DAYS 06/19/14 Reported Ondansetron Odt (Ondansetron) 4 Mg Tab.rapdis 4 Mg PEG QIDPRN PRN 06/19/14 Reported Impression . 1. [id number] respiratory failure secondary to clinically suspected pneumonia. The patient presented with leukocytosis and subjective low-grade fever and increased infiltrates on the chest x-ray. Procalcitonin, however, is normal. The possibility of mild superimposed congestive heart failure cannot be ruled out. 2. History of laryngeal and lung cancer, status post tracheostomy. 3. 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 4. History of chronic tracheostomy. Plan . 1. Obtain trach secretion for C and S. 2. Continue with present antibiotics. 3. Follow chest x-rays. 4. Continue present oxygen. 5. Enteral nutrition. MARY LANIER MD Dec 04, 2018 11:12
[2018-12-05] MEDS: PIPERACILLIN/TAZOBACTAM 3.375 GM in IV NORMAL SALINE 50ML 50 ML IV SCH ×4 (00:50→18:21)
[2018-12-05] MEDS ORDERED: GABAPENTIN 250 MG/5 ML ORAL SOLUTION. PEG PRN (01:00)
[2018-12-05 03:00] VITALS: BP 168/81
[2018-12-05] MEDS: oxyCODONE/APAP 7.5/325 1 TAB TABLET PEG PRN ×3 (05:47→21:31)
[2018-12-05] MEDS: ONDANSETRON ODT 4 MG TAB.RAPDIS. PEG PRN ×2 (05:47→12:06)
[2018-12-05 07:00] VITALS: BP 176/86
[2018-12-05 07:31] LABS: BASO % 1 % (0-3); EOS # 0.4 x10^3/uL (0.0-0.7); EOS % 5 % (0-3); HEMATOCRIT 30.7 % (36.0-47.0); HEMOGLOBIN 9.2 g/dL (12.0-15.5); LYMPH # 1.3 x10^3/uL (1.0-4.8); LYMPH % 15 % (24-48); MEAN CORPUSCULAR HEMOGLOBIN 22 pg (25-35); MEAN CORPUSCULAR HGB CONC 30 g/dL (31-37); MEAN CORPUSCULAR VOLUME 74 fL (79-100); MONO # 0.5 x10^3/uL (0.0-1.1); MONO % 6 % (0-9); NEUT # 6.5 x10^3uL (1.8-7.7); NEUT % 74 % (31-73); PLATELET COUNT 407 x10^3/uL (140-400); RED BLOOD COUNT 4.14 x10^6/uL (3.50-5.40); WHITE BLOOD COUNT 8.8 x10^3/uL (4.0-11.0)
[2018-12-05 07:56] LABS: ALBUMIN 2.3 g/dL (3.4-5.0); ALBUMIN/GLOBULIN RATIO 0.4 (1.0-1.7); CALCIUM 8.8 mg/dL (8.5-10.1); CREATININE 0.7 mg/dL (0.6-1.0); GFR 98.2; POTASSIUM 3.8 mmol/L (3.5-5.1); TOTAL BILIRUBIN 0.4 mg/dL (0.2-1.0); TOTAL PROTEIN 7.7 g/dL (6.4-8.2)
[2018-12-05] MEDS: ALBUTEROL SULFATE 2.5 MG/3 ML NEBU. NEB SCH ×4 (08:15→19:36)
[2018-12-05] MEDS: DONEPEZIL HCL 5 MG TABLET. PEG SCH ×2 (08:39→21:30)
[2018-12-05] MEDS: LANSOPRAZOLE 30 MG TAB.RAP.DR PEG SCH ×2 (08:39→15:40)
[2018-12-05] MEDS: CYPROHEPTADINE 4 MG TABLET. PEG SCH ×3 (08:39→21:30)
[2018-12-05] MEDS: fentaNYL 50MCG/HR PATCH 1 PATCH PATCH.TD72 TD SCH (08:39)
[2018-12-05] MEDS: METOCLOPRAMIDE 10 MG TABLET. PEG SCH ×4 (08:39→21:30)
[2018-12-05] MEDS: VANCOMYCIN 1 GM in IV NORMAL SALINE 250ML 250 ML IV SCH (08:39)
[2018-12-05] MEDS: amLODIPine BESYLATE 5 MG TABLET PEG SCH (08:40)
--- NOTE | 2018-12-05 09:44 | PDOC ---
PULMONARY PROGRESS NOTES Subjective no soa Vitals Vital Signs Date Time Temp Pulse Resp B/P (MAP) Pulse Ox O2 Delivery O2 Flow Rate FiO2 12/05/18 08:40 84 176/86 12/05/18 08:39 18 100 Tracheal Collar 10.0 12/05/18 07:00 99.0 99.0 General: Alert, No acute distress Lungs: Crackles (bases) Cardiovascular: S1, S2 Abdomen: Soft, Non-tender Extremities: No Edema Skin: Warm Labs Laboratory Tests Test 12/04/18 07:20 12/05/18 06:34 White Blood Count 10.7 x10^3/uL (4.0-11.0) 8.8 x10^3/uL (4.0-11.0) Red Blood Count 4.44 x10^6/uL (3.50-5.40) 4.14 x10^6/uL (3.50-5.40) Hemoglobin 9.9 g/dL (12.0-15.5) 9.2 g/dL (12.0-15.5) Hematocrit 33.1 % (36.0-47.0) 30.7 % (36.0-47.0) Mean Corpuscular Volume 75 fL (79-100) 74 fL (79-100) Mean Corpuscular Hemoglobin 22 pg (25-35) 22 pg (25-35) Mean Corpuscular Hemoglobin Concent 30 g/dL (31-37) 30 g/dL (31-37) Red Cell Distribution Width 17.6 % (11.5-14.5) 18.0 % (11.5-14.5) Platelet Count 420 x10^3/uL (140-400) 407 x10^3/uL (140-400) Neutrophils (%) (Auto) 80 % (31-73) 74 % (31-73) Lymphocytes (%) (Auto) 11 % (24-48) 15 % (24-48) Monocytes (%) (Auto) 6 % (0-9) 6 % (0-9) Eosinophils (%) (Auto) 4 % (0-3) 5 % (0-3) Basophils (%) (Auto) 1 % (0-3) 1 % (0-3) Neutrophils # (Auto) 8.6 x10^3uL (1.8-7.7) 6.5 x10^3uL (1.8-7.7) Lymphocytes # (Auto) 1.1 x10^3/uL (1.0-4.8) 1.3 x10^3/uL (1.0-4.8) Monocytes # (Auto) 0.6 x10^3/uL (0.0-1.1) 0.5 x10^3/uL (0.0-1.1) Eosinophils # (Auto) 0.4 x10^3/uL (0.0-0.7) 0.4 x10^3/uL (0.0-0.7) Basophils # (Auto) 0.1 x10^3/uL (0.0-0.2) 0.0 x10^3/uL (0.0-0.2) Sodium Level 136 mmol/L (136-145) 137 mmol/L (136-145) Potassium Level 3.7 mmol/L (3.5-5.1) 3.8 mmol/L (3.5-5.1) Chloride Level 100 mmol/L (98-107) 100 mmol/L (98-107) Carbon Dioxide Level 32 mmol/L (21-32) 32 mmol/L (21-32) Anion Gap 4 (6-14) 5 (6-14) Blood Urea Nitrogen 10 mg/dL (7-20) 7 mg/dL (7-20) Creatinine 0.8 mg/dL (0.6-1.0) 0.7 mg/dL (0.6-1.0) Estimated GFR (Cockcroft-Gault) 84.2 98.2 BUN/Creatinine Ratio 13 (6-20) 10 (6-20) Glucose Level 164 mg/dL (70-99) 91 mg/dL (70-99) Calcium Level 8.8 mg/dL (8.5-10.1) 8.8 mg/dL (8.5-10.1) Total Bilirubin 0.4 mg/dL (0.2-1.0) 0.4 mg/dL (0.2-1.0) Aspartate Amino Transf (AST/SGOT) 17 U/L (15-37) 16 U/L (15-37) Alanine Aminotransferase (ALT/SGPT) 7 U/L (14-59) 8 U/L (14-59) Alkaline Phosphatase 59 U/L (46-116) 54 U/L (46-116) Total Protein 8.0 g/dL (6.4-8.2) 7.7 g/dL (6.4-8.2) Albumin 2.4 g/dL (3.4-5.0) 2.3 g/dL (3.4-5.0) Albumin/Globulin Ratio 0.4 (1.0-1.7) 0.4 (1.0-1.7) Vancomycin Level Trough 9.0 mcg/mL (10.0-20.0) Vancomycin Last Dose Date 12/03/18 Vancomycin Last Dose Time 1400 Laboratory Tests Test 12/05/18 06:34 White Blood Count 8.8 x10^3/uL (4.0-11.0) Red Blood Count 4.14 x10^6/uL (3.50-5.40) Hemoglobin 9.2 g/dL (12.0-15.5) Hematocrit 30.7 % (36.0-47.0) Mean Corpuscular Volume 74 fL (79-100) Mean Corpuscular Hemoglobin 22 pg (25-35) Mean Corpuscular Hemoglobin Concent 30 g/dL (31-37) Red Cell Distribution Width 18.0 % (11.5-14.5) Platelet Count 407 x10^3/uL (140-400) Neutrophils (%) (Auto) 74 % (31-73) Lymphocytes (%) (Auto) 15 % (24-48) Monocytes (%) (Auto) 6 % (0-9) Eosinophils (%) (Auto) 5 % (0-3) Basophils (%) (Auto) 1 % (0-3) Neutrophils # (Auto) 6.5 x10^3uL (1.8-7.7) Lymphocytes # (Auto) 1.3 x10^3/uL (1.0-4.8) Monocytes # (Auto) 0.5 x10^3/uL (0.0-1.1) Eosinophils # (Auto) 0.4 x10^3/uL (0.0-0.7) Basophils # (Auto) 0.0 x10^3/uL (0.0-0.2) Sodium Level 137 mmol/L (136-145) Potassium Level 3.8 mmol/L (3.5-5.1) Chloride Level 100 mmol/L (98-107) Carbon Dioxide Level 32 mmol/L (21-32) Anion Gap 5 (6-14) Blood Urea Nitrogen 7 mg/dL (7-20) Creatinine 0.7 mg/dL (0.6-1.0) Estimated GFR (Cockcroft-Gault) 98.2 BUN/Creatinine Ratio 10 (6-20) Glucose Level 91 mg/dL (70-99) Calcium Level 8.8 mg/dL (8.5-10.1) Total Bilirubin 0.4 mg/dL (0.2-1.0) Aspartate Amino Transf (AST/SGOT) 16 U/L (15-37) Alanine Aminotransferase (ALT/SGPT) 8 U/L (14-59) Alkaline Phosphatase 54 U/L (46-116) Total Protein 7.7 g/dL (6.4-8.2) Albumin 2.3 g/dL (3.4-5.0) Albumin/Globulin Ratio 0.4 (1.0-1.7) Medications Active Scripts Medications Dose Route/Sig Max Daily Dose Days Date Category Albuterol Sulfate Neb Soln (Albuterol Sulfate) 0.63 Mg/3 Ml Vial.neb 1 Vial NEB QID 12/02/18 Reported Gabapentin (Gabapentin) 300 Mg Capsule 300 Mg PO BID PRN 10/19/18 Reported Amlodipine Besylate 5 Mg Tablet 5 Mg PO DAILY 10/19/18 Reported Culturelle (Lactobacillus Rhamnosus Gg) 1 Each Cap.sprink 1 Cap PO BID 30 07/07/17 Rx Pantoprazole Sodium 40 Mg Tablet.dr 40 Mg PEG BID 03/11/17 Reported Donepezil Hcl 5 Mg Tablet 5 Mg PEG BID 03/11/17 Reported Reglan (Metoclopramide Hcl) 10 Mg Tablet 5 Mg PO QIDACHS 03/11/17 Reported Cyproheptadine Hcl 2 Mg/5 Ml Syrup 10 Ml PEG TID 03/11/17 Reported Percocet 7.5-325 Mg Tablet (Oxycodone/Acetaminophen) 1 Each Tablet 1 Tab PO QID PRN 03/11/17 Reported FENTANYL 50mcg/hr (Fentanyl) 1 Each Patch.td72 1 Patch TP Q3DAYS 10/6/14 Reported Ondansetron Odt (Ondansetron) 4 Mg Tab.rapdis 4 Mg PEG QIDPRN PRN 06/19/14 Reported Impression . 1. [id number] respiratory failure secondary to clinically suspected pneumonia. The patient presented with leukocytosis and subjective low-grade fever and increased infiltrates on the chest x-ray. Procalcitonin, however, is normal. The possibility of mild superimposed congestive heart failure cannot be ruled out. 2. History of laryngeal and lung cancer, status post tracheostomy. 3. 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 4. History of chronic tracheostomy. Plan . 1. Obtain trach secretion for C and S. 2. Continue with present antibiotics./ improved wbc 3. Follow chest x-rays in am 4. Continue present oxygen. 5. Enteral nutrition. MARY LANIER MD Dec 05, 2018 09:44
--- NOTE | 2018-12-05 10:56 | PDOC ---
PROGRESS NOTES Chief Complaint Chief Complaint history of lung cancer and tracheostomy with recurrent infection. 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 The patient came in with shortness of breath, low-grade fever, leukocytosis. no chest pain at this time but primarily has cough with fever and an x-ray c/w pneumonia. has laryngeal cancer, history of dysphagia, PEG tube in place, tracheostomy in place. 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 History of Present Illness History of Present Illness Assessment/Plan Assessment/Plan IMPRESSION 1. [id number] hypoxic respiratory failure secondary // suspected recurrent pneumonia. possible aspiration 2. Fever with abnormal chest x-ray with bilateral infiltrates, likely related to pneumonia. //history of multidrug resistant Pseudomonas aeruginosa pneumonia and methicillin resistant Staphylococcus aureus pneumonia. 3. chronic obstructive pulmonary disease with compensated respiratory acidosis and chronic hypoxic respiratory failure. 4. Leukocytosis // secondary to the infectious process 5. dementia 6. laryngeal cancer, 7.history of dysphagia, PEG tube in place, 8. tracheostomy in place 9. ASPIRATION PNEUMONIA PLAN PULM CONSULT Emperic iv antibiotics, zosyn, vanc ID CONSULT Supportive care. Overall, long-term prognosis is poor per my chart review//. Discussed family// patient dvt prophylaxis trach secretion for C and S. 31 min pt exam, chart review > 50% of time with exam, chart review, pt care coordination Vitals Vitals Vital Signs Date Time Temp Pulse Resp B/P (MAP) Pulse Ox O2 Delivery O2 Flow Rate FiO2 12/05/18 08:40 84 176/86 12/05/18 08:39 18 100 Tracheal Collar 10.0 12/05/18 07:00 99.0 99.0 Physical Exam Physical Exam GENERAL: Propped up in bed, resting quietly NECK: Trach LUNGS: Congested,,nonlabored HEART: S1 and S2 ABDOMEN: Soft and nontender. EXTREMITIES: No edema or cyanosis. SKIN: warm without rash POWER TOOL REPAIRER: Arouses to name, responds appropriately Port - clean General: Cooperative, mild distress Heart: Regular rate Lungs: Crackles (bases) Abdomen: Soft Extremities: No cyanosis, No tenderness/swelling Labs LABS Laboratory Tests Test 12/05/18 06:34 White Blood Count 8.8 x10^3/uL (4.0-11.0) Red Blood Count 4.14 x10^6/uL (3.50-5.40) Hemoglobin 9.2 g/dL (12.0-15.5) Hematocrit 30.7 % (36.0-47.0) Mean Corpuscular Volume 74 fL (79-100) Mean Corpuscular Hemoglobin 22 pg (25-35) Mean Corpuscular Hemoglobin Concent 30 g/dL (31-37) Red Cell Distribution Width 18.0 % (11.5-14.5) Platelet Count 407 x10^3/uL (140-400) Neutrophils (%) (Auto) 74 % (31-73) Lymphocytes (%) (Auto) 15 % (24-48) Monocytes (%) (Auto) 6 % (0-9) Eosinophils (%) (Auto) 5 % (0-3) Basophils (%) (Auto) 1 % (0-3) Neutrophils # (Auto) 6.5 x10^3uL (1.8-7.7) Lymphocytes # (Auto) 1.3 x10^3/uL (1.0-4.8) Monocytes # (Auto) 0.5 x10^3/uL (0.0-1.1) Eosinophils # (Auto) 0.4 x10^3/uL (0.0-0.7) Basophils # (Auto) 0.0 x10^3/uL (0.0-0.2) Sodium Level 137 mmol/L (136-145) Potassium Level 3.8 mmol/L (3.5-5.1) Chloride Level 100 mmol/L (98-107) Carbon Dioxide Level 32 mmol/L (21-32) Anion Gap 5 (6-14) Blood Urea Nitrogen 7 mg/dL (7-20) Creatinine 0.7 mg/dL (0.6-1.0) Estimated GFR (Cockcroft-Gault) 98.2 BUN/Creatinine Ratio 10 (6-20) Glucose Level 91 mg/dL (70-99) Calcium Level 8.8 mg/dL (8.5-10.1) Total Bilirubin 0.4 mg/dL (0.2-1.0) Aspartate Amino Transf (AST/SGOT) 16 U/L (15-37) Alanine Aminotransferase (ALT/SGPT) 8 U/L (14-59) Alkaline Phosphatase 54 U/L (46-116) Total Protein 7.7 g/dL (6.4-8.2) Albumin 2.3 g/dL (3.4-5.0) Albumin/Globulin Ratio 0.4 (1.0-1.7) Assessment and Plan Assessmemt and Plan Problems Medical Problems: (1) Healthcare-associated pneumonia Status: Acute Comment Review of Relevant I have reviewed the following items miko (where applicable) has been applied. Labs Laboratory Tests Test 12/04/18 07:20 12/05/18 06:34 White Blood Count 10.7 x10^3/uL (4.0-11.0) 8.8 x10^3/uL (4.0-11.0) Red Blood Count 4.44 x10^6/uL (3.50-5.40) 4.14 x10^6/uL (3.50-5.40) Hemoglobin 9.9 g/dL (12.0-15.5) 9.2 g/dL (12.0-15.5) Hematocrit 33.1 % (36.0-47.0) 30.7 % (36.0-47.0) Mean Corpuscular Volume 75 fL (79-100) 74 fL (79-100) Mean Corpuscular Hemoglobin 22 pg (25-35) 22 pg (25-35) Mean Corpuscular Hemoglobin Concent 30 g/dL (31-37) 30 g/dL (31-37) Red Cell Distribution Width 17.6 % (11.5-14.5) 18.0 % (11.5-14.5) Platelet Count 420 x10^3/uL (140-400) 407 x10^3/uL (140-400) Neutrophils (%) (Auto) 80 % (31-73) 74 % (31-73) Lymphocytes (%) (Auto) 11 % (24-48) 15 % (24-48) Monocytes (%) (Auto) 6 % (0-9) 6 % (0-9) Eosinophils (%) (Auto) 4 % (0-3) 5 % (0-3) Basophils (%) (Auto) 1 % (0-3) 1 % (0-3) Neutrophils # (Auto) 8.6 x10^3uL (1.8-7.7) 6.5 x10^3uL (1.8-7.7) Lymphocytes # (Auto) 1.1 x10^3/uL (1.0-4.8) 1.3 x10^3/uL (1.0-4.8) Monocytes # (Auto) 0.6 x10^3/uL (0.0-1.1) 0.5 x10^3/uL (0.0-1.1) Eosinophils # (Auto) 0.4 x10^3/uL (0.0-0.7) 0.4 x10^3/uL (0.0-0.7) Basophils # (Auto) 0.1 x10^3/uL (0.0-0.2) 0.0 x10^3/uL (0.0-0.2) Sodium Level 136 mmol/L (136-145) 137 mmol/L (136-145) Potassium Level 3.7 mmol/L (3.5-5.1) 3.8 mmol/L (3.5-5.1) Chloride Level 100 mmol/L (98-107) 100 mmol/L (98-107) Carbon Dioxide Level 32 mmol/L (21-32) 32 mmol/L (21-32) Anion Gap 4 (6-14) 5 (6-14) Blood Urea Nitrogen 10 mg/dL (7-20) 7 mg/dL (7-20) Creatinine 0.8 mg/dL (0.6-1.0) 0.7 mg/dL (0.6-1.0) Estimated GFR (Cockcroft-Gault) 84.2 98.2 BUN/Creatinine Ratio 13 (6-20) 10 (6-20) Glucose Level 164 mg/dL (70-99) 91 mg/dL (70-99) Calcium Level 8.8 mg/dL (8.5-10.1) 8.8 mg/dL (8.5-10.1) Total Bilirubin 0.4 mg/dL (0.2-1.0) 0.4 mg/dL (0.2-1.0) Aspartate Amino Transf (AST/SGOT) 17 U/L (15-37) 16 U/L (15-37) Alanine Aminotransferase (ALT/SGPT) 7 U/L (14-59) 8 U/L (14-59) Alkaline Phosphatase 59 U/L (46-116) 54 U/L (46-116) Total Protein 8.0 g/dL (6.4-8.2) 7.7 g/dL (6.4-8.2) Albumin 2.4 g/dL (3.4-5.0) 2.3 g/dL (3.4-5.0) Albumin/Globulin Ratio 0.4 (1.0-1.7) 0.4 (1.0-1.7) Vancomycin Level Trough 9.0 mcg/mL (10.0-20.0) Vancomycin Last Dose Date 12/03/18 Vancomycin Last Dose Time 1400 Laboratory Tests Test 12/05/18 06:34 White Blood Count 8.8 x10^3/uL (4.0-11.0) Red Blood Count 4.14 x10^6/uL (3.50-5.40) Hemoglobin 9.2 g/dL (12.0-15.5) Hematocrit 30.7 % (36.0-47.0) Mean Corpuscular Volume 74 fL (79-100) Mean Corpuscular Hemoglobin 22 pg (25-35) Mean Corpuscular Hemoglobin Concent 30 g/dL (31-37) Red Cell Distribution Width 18.0 % (11.5-14.5) Platelet Count 407 x10^3/uL (140-400) Neutrophils (%) (Auto) 74 % (31-73) Lymphocytes (%) (Auto) 15 % (24-48) Monocytes (%) (Auto) 6 % (0-9) Eosinophils (%) (Auto) 5 % (0-3) Basophils (%) (Auto) 1 % (0-3) Neutrophils # (Auto) 6.5 x10^3uL (1.8-7.7) Lymphocytes # (Auto) 1.3 x10^3/uL (1.0-4.8) Monocytes # (Auto) 0.5 x10^3/uL (0.0-1.1) Eosinophils # (Auto) 0.4 x10^3/uL (0.0-0.7) Basophils # (Auto) 0.0 x10^3/uL (0.0-0.2) Sodium Level 137 mmol/L (136-145) Potassium Level 3.8 mmol/L (3.5-5.1) Chloride Level 100 mmol/L (98-107) Carbon Dioxide Level 32 mmol/L (21-32) Anion Gap 5 (6-14) Blood Urea Nitrogen 7 mg/dL (7-20) Creatinine 0.7 mg/dL (0.6-1.0) Estimated GFR (Cockcroft-Gault) 98.2 BUN/Creatinine Ratio 10 (6-20) Glucose Level 91 mg/dL (70-99) Calcium Level 8.8 mg/dL (8.5-10.1) Total Bilirubin 0.4 mg/dL (0.2-1.0) Aspartate Amino Transf (AST/SGOT) 16 U/L (15-37) Alanine Aminotransferase (ALT/SGPT) 8 U/L (14-59) Alkaline Phosphatase 54 U/L (46-116) Total Protein 7.7 g/dL (6.4-8.2) Albumin 2.3 g/dL (3.4-5.0) Albumin/Globulin Ratio 0.4 (1.0-1.7) Microbiology 12/02/18 Blood Culture - Preliminary, Resulted NO GROWTH AFTER 2 DAYS 12/02/18 - Final, Resulted 12/02/18 - Final, Resulted 12/02/18 - Final, Resulted 12/02/18 - Final, Resulted 12/02/18 Gram Stain Evaluation - Final, Resulted 12/02/18 Sputum Culture - Preliminary, Resulted 12/02/18 Sputum Result 1 - Final, Resulted Medications Current Medications Albuterol/ Ipratropium (Duoneb) 3 ml STK-MED ONCE .ROUTE ; Start 12/02/18 at 15: 16; Stop 12/02/18 at 15:17; Status DC Ondansetron HCl (Zofran) 4 mg PRN Q8HRS PRN IV NAUSEA/VOMITING; Start 12/02/18 at 16:45; Stop 12/03/18 at 16:44; Status DC Morphine Sulfate (Morphine Sulfate) 2 mg PRN Q2HR PRN IV PAIN Last administered on 12/03/18at 14:16; Start 12/02/18 at 16:45; Stop 12/03/18 at 16:44 ; Status DC Sodium Chloride 1,000 ml @ 100 mls/hr Q10H IV Last administered on 12/02/18at 19:41; Start 12/02/18 at 16:39; Stop 12/02/18 at 20:38; Status DC Vancomycin HCl (Vanco Per Pharmacy) 1 each PRN DAILY PRN MC SEE COMMENTS Last administered on 12/04/18at 09:04; Start 12/02/18 at 16:45 Piperacillin Sod/ Tazobactam Sod (Zosyn Per Pharmacy) 1 each PRN DAILY PRN MC SEE COMMENTS; Start 12/02/18 at 16:45 Vancomycin HCl 1.25 gm/Sodium Chloride 250 ml @ 167 mls/hr ONCE ONCE IV Last administered on 12/02/18at 19:39; Start 12/02/18 at 17:00; Stop 12/02/18 at 18:29 ; Status DC Piperacillin Sod/ Tazobactam Sod 4.5 gm/Sodium Chloride 100 ml @ 200 mls/hr ONCE ONCE IV Last administered on 12/02/18at 17:02; Start 12/02/18 at 17:00; Stop 12/02/18 at 17:29; Status DC Piperacillin Sod/ Tazobactam Sod 3.375 gm/Sodium Chloride 50 ml @ 100 mls/hr Q6HRS IV Last administered on 12/05/18at 05:48; Start 12/03/18 at 00:00 Vancomycin HCl 1 gm/Sodium Chloride 250 ml @ 250 mls/hr Q18H IV Last administered on 12/04/18at 09:25; Start 12/03/18 at 14:00; Stop 12/04/18 at 12:00 ; Status DC Vancomycin HCl (Vancomycin Trough Level) 1 each 1X ONCE MC ; Start 12/04/18 at 07:30; Stop 12/04/18 at 07:31; Status DC Sodium Chloride 750 ml @ 375 mls/hr 1X ONCE IV Last administered on at 19:31; Start 12/02/18 at 19:00; Stop 12/02/18 at 20:59; Status DC Amlodipine Besylate (Norvasc) 5 mg DAILY PO Last administered on 12/03/18at 09: 25; Start 12/03/18 at 09:00; Stop 12/03/18 at 09:54; Status DC Fentanyl (Duragesic 50mcg/ Hr Patch) 1 patch Q3DAYS TD Last administered on 08:39; Start 12/05/18 at 09:00 Gabapentin (Neurontin) 300 mg PRN BID PRN PO NEUROPATHIC PAIN; Start 12/02/18 at 23:30; Stop 12/05/18 at 06:04; Status DC Lactobacillus Rhamnosus (Culturelle) 1 cap BID PO Last administered on 09:24; Start 12/03/18 at 09:00; Stop 12/03/18 at 09:52; Status DC Metoclopramide HCl (Reglan) 5 mg QIDACHS PO Last administered on 12/03/18 09: 24; Start 12/03/18 at 07:30; Stop 12/03/18 at 09:54; Status DC Ondansetron HCl (Zofran Odt) 4 mg PRN QID PRN PEG NAUSEA/VOMITING Last administered on 12/05/18 05:47; Start 12/02/18 at 23:30 Oxycodone/ Acetaminophen (Percocet 7.5/ 325) 1 tab PRN QID PRN PO PAIN Last administered on 12/03/18 09:26; Start 12/02/18 at 23:30; Stop 12/03/18 at 09:54 ; Status DC Pantoprazole Sodium (Protonix) 40 mg BIDBFRMEAL PO Last administered on 09:24; Start 12/03/18 at 07:30; Stop 12/03/18 at 09:53; Status DC Non-Formulary Medication (Albuterol Sulfate (Albuterol Sulfate Neb Soln)) 1 vial QID NEB ; Start 12/03/18 at 09:00; Status UNV Cyproheptadine HCl (Periactin) 4 mg TID PEG Last administered on 12/05/18 08: 39; Start 12/03/18 at 09:00 Donepezil HCl (Aricept) 5 mg BID PEG Last administered on 12/05/18 08:39; Start 12/03/18 at 09:00 Albuterol Sulfate (Ventolin Neb Soln) 2.5 mg RTQID NEB Last administered on 08:15; Start 12/03/18 at 08:00 Lansoprazole (Prevacid) 30 mg BIDBFRMEAL PEG Last administered on 12/05/18 08: 39; Start 12/03/18 at 16:30 Amlodipine Besylate (Norvasc) 5 mg DAILY PEG Last administered on 12/05/18 08: 40; Start 12/03/18 at 09:54 Metoclopramide HCl (Reglan) 5 mg QIDACHS PEG Last administered on 12/05/18 08: 39; Start 12/03/18 at 09:54 Oxycodone/ Acetaminophen (Percocet 7.5/ 325) 1 tab PRN QID PRN PEG PAIN Last administered on 12/05/18 05:47; Start 12/03/18 at 09:54 Hydralazine HCl (Apresoline Inj) 10 mg PRN Q4HRS PRN IVP ELEVATED BP, SEE COMMENTS; Start 12/03/18 at 16:15 Vancomycin HCl 1 gm/Sodium Chloride 250 ml @ 250 mls/hr Q12H IV Last administered on 12/05/18 08:39; Start 12/04/18 at 21:00 Vancomycin HCl (Vancomycin Trough Level) 1 each 1X ONCE MC ; Start 12/05/18 at 20:30; Stop 12/05/18 at 20:31 Gabapentin (Neurontin Oral Soln) 250 mg PRN BID PRN PEG NEUROPATHIC PAIN Last administered on 12/05/18 01:15; Start 12/05/18 at 01:00 Active Scripts Active Culturelle (Lactobacillus Rhamnosus Gg) 1 Each Cap.sprink 1 Cap PO BID 30 Days Reported Albuterol Sulfate Neb Soln (Albuterol Sulfate) 0.63 Mg/3 Ml Vial.neb 1 Vial NEB QID Gabapentin (Gabapentin) 300 Mg Capsule 300 Mg PO BID PRN Amlodipine Besylate 5 Mg Tablet 5 Mg PO DAILY Pantoprazole Sodium 40 Mg Tablet.dr 40 Mg PEG BID Donepezil Hcl 5 Mg Tablet 5 Mg PEG BID Reglan (Metoclopramide Hcl) 10 Mg Tablet 5 Mg PO QIDACHS Cyproheptadine Hcl 2 Mg/5 Ml Syrup 10 Ml PEG TID Percocet 7.5-325 Mg Tablet (Oxycodone/Acetaminophen) 1 Each Tablet 1 Tab PO QID PRN FENTANYL 50mcg/hr (Fentanyl) 1 Each Patch.td72 1 Patch TP Q3DAYS Ondansetron Odt (Ondansetron) 4 Mg Tab.rapdis 4 Mg PEG QIDPRN PRN Vitals/I & O Vital Sign - Last 24 Hours 12/04/18 12/04/18 12/04/18 12/04/18 11:00 12:10 12:15 14:37 Temp 97.3 97.3 Pulse 93 Resp 20 22 B/P (MAP) 143/68 (93) Pulse Ox 99 98 99 99 O2 Delivery Tracheal Collar Tracheal Collar Tracheal Collar O2 Flow Rate 10.0 10.0 10.0 10.0 12/04/18 12/04/18 12/04/18 12/04/18 15:00 16:22 18:01 19:20 Temp 97.5 98.5 97.5 98.5 Pulse 76 92 Resp 20 17 B/P (MAP) 126/67 (86) 162/74 (103) Pulse Ox 100 96 96 96 O2 Delivery Tracheal Collar Tracheal Collar Tracheal Collar O2 Flow Rate 10.0 10.0 10.0 10.0 12/04/18 12/04/18 12/04/18 12/04/18 19:51 20:30 22:11 22:51 Temp 98.2 98.2 Pulse 91 Resp 16 16 B/P (MAP) 189/84 (119) Pulse Ox 97 94 O2 Delivery Tracheal Collar Trach Collar Tracheal Collar Tracheal Collar O2 Flow Rate 10.0 10.0 10.0 10.0 12/04/18 12/05/18 12/05/18 12/05/18 23:18 03:00 07:00 08:00 Temp 98.1 99.0 98.1 99.0 Pulse 87 93 86 Resp 18 17 B/P (MAP) 149/67 (94) 168/81 (110) 176/86 (116) Pulse Ox 94 100 O2 Delivery Nasal Cannula Nasal Cannula Trach Collar O2 Flow Rate 10.0 10.0 10.0 12/05/18 12/05/18 12/05/18 08:16 08:39 08:40 Pulse 84 Resp 18 B/P (MAP) 176/86 Pulse Ox 100 100 O2 Delivery Tracheal Collar Tracheal Collar O2 Flow Rate 10.0 10.0 Intake and Output 12/04/18 12/04/18 12/05/18 15:00 23:00 07:00 Intake Total 1900 ml 650 ml Output Total 800 ml 500 ml 300 ml Balance -800 ml 1400 ml 350 ml Nutrition Consultation Dietary Evaluation: Recommendations by RD: Increase Calorie Intake Comments: Continue TF per current order: Jevity 1.5 bolus QID, 237 ml (1 can)/bolus, w/200 ml water flushes w/each bolus Expected Outcomes/Goals: TF infusion to meet >75% est needs Malnutrition Findings: Body Fat Depletion (Non Severe: Mod to Severe Weight Status: Underweight CUONG SHIRLEY MD Dec 05, 2018 10:56
[2018-12-05 11:00] VITALS: BP 167/80
--- NOTE | 2018-12-05 11:08 | PDOC ---
Infectious Disease Note Subjective Subjective Says feeling about the same + cough and chest congestion No fevers/SOA ROS ROS per HPI Vital Sign Vital Signs Vital Signs Date Time Temp Pulse Resp B/P (MAP) Pulse Ox O2 Delivery O2 Flow Rate FiO2 12/05/18 08:40 84 176/86 12/05/18 08:39 18 100 Tracheal Collar 10.0 12/05/18 07:00 99.0 99.0 Physical Exam PHYSICAL EXAM GENERAL: Propped up in bed, resting quietly NECK: Trach LUNGS: Less congested, nonlabored HEART: S1 and S2 ABDOMEN: Soft and nontender. EXTREMITIES: No edema or cyanosis. SKIN: warm without rash NETWORK MGR: Arouses to name, responds appropriately Port - clean Labs Lab Laboratory Tests Test 12/05/18 06:34 White Blood Count 8.8 x10^3/uL (4.0-11.0) Red Blood Count 4.14 x10^6/uL (3.50-5.40) Hemoglobin 9.2 g/dL (12.0-15.5) Hematocrit 30.7 % (36.0-47.0) Mean Corpuscular Volume 74 fL (79-100) Mean Corpuscular Hemoglobin 22 pg (25-35) Mean Corpuscular Hemoglobin Concent 30 g/dL (31-37) Red Cell Distribution Width 18.0 % (11.5-14.5) Platelet Count 407 x10^3/uL (140-400) Neutrophils (%) (Auto) 74 % (31-73) Lymphocytes (%) (Auto) 15 % (24-48) Monocytes (%) (Auto) 6 % (0-9) Eosinophils (%) (Auto) 5 % (0-3) Basophils (%) (Auto) 1 % (0-3) Neutrophils # (Auto) 6.5 x10^3uL (1.8-7.7) Lymphocytes # (Auto) 1.3 x10^3/uL (1.0-4.8) Monocytes # (Auto) 0.5 x10^3/uL (0.0-1.1) Eosinophils # (Auto) 0.4 x10^3/uL (0.0-0.7) Basophils # (Auto) 0.0 x10^3/uL (0.0-0.2) Sodium Level 137 mmol/L (136-145) Potassium Level 3.8 mmol/L (3.5-5.1) Chloride Level 100 mmol/L (98-107) Carbon Dioxide Level 32 mmol/L (21-32) Anion Gap 5 (6-14) Blood Urea Nitrogen 7 mg/dL (7-20) Creatinine 0.7 mg/dL (0.6-1.0) Estimated GFR (Cockcroft-Gault) 98.2 BUN/Creatinine Ratio 10 (6-20) Glucose Level 91 mg/dL (70-99) Calcium Level 8.8 mg/dL (8.5-10.1) Total Bilirubin 0.4 mg/dL (0.2-1.0) Aspartate Amino Transf (AST/SGOT) 16 U/L (15-37) Alanine Aminotransferase (ALT/SGPT) 8 U/L (14-59) Alkaline Phosphatase 54 U/L (46-116) Total Protein 7.7 g/dL (6.4-8.2) Albumin 2.3 g/dL (3.4-5.0) Albumin/Globulin Ratio 0.4 (1.0-1.7) Micro 12/02/18 Blood Culture - Preliminary, Resulted NO GROWTH AFTER 2 DAY GRAM STAIN RESULT 1 Final Many gram positive cocci. GRAM STAIN RESULT 2 Final Many gram negative rods. SPUTUM CULT RES 1 Final Comment No growth in 36 - 48 hours. Objective Assessment Hypoxic respiratory failure. Respiratory infection. GPC/GNR on gram stain,,,no growth so far History of lung cancer. Tracheostomy. History of laryngeal cancer. Leukocytosis,,improved Plan Plan of Care vancomycin and Zosyn Trough 9.0 Monitor labs/renal function closely f/u cultures Supportive care RAISA VILLAR APRN Dec 05, 2018 11:08
[2018-12-05] MEDS ORDERED: CEFTOLOZANE IV SCH (14:30)
[2018-12-05] MEDS ORDERED: TAZOBACTAM IV SCH (14:30)
[2018-12-05] MEDS ORDERED: NORMAL SALINE IV SCH (14:30)
[2018-12-05 14:55] VITALS: BP 127/60
[2018-12-05 19:50] VITALS: BP 148/70
[2018-12-05 23:28] VITALS: BP_SYST 143; BP_SYST 144; BP_DIAS 67; BP_DIAS 76
[2018-12-06] VITALS (7 sets, daily range): BP systolic 132–198; BP diastolic 71–91
[2018-12-06] MEDS: PIPERACILLIN/TAZOBACTAM 3.375 GM in IV NORMAL SALINE 50ML 50 ML IV SCH ×4 (00:08→18:46)
[2018-12-06] MEDS: ALBUTEROL SULFATE 2.5 MG/3 ML NEBU. NEB SCH ×4 (07:18→19:25)
[2018-12-06] MEDS: CYPROHEPTADINE 4 MG TABLET. PEG SCH ×3 (08:00→21:20)
[2018-12-06] MEDS: DONEPEZIL HCL 5 MG TABLET. PEG SCH ×2 (08:00→21:20)
[2018-12-06] MEDS: METOCLOPRAMIDE 10 MG TABLET. PEG SCH ×4 (08:00→21:21)
[2018-12-06] MEDS: oxyCODONE/APAP 7.5/325 1 TAB TABLET PEG PRN ×3 (08:00→19:02)
[2018-12-06] MEDS: amLODIPine BESYLATE 5 MG TABLET PEG SCH (08:01)
[2018-12-06] MEDS: LANSOPRAZOLE 30 MG TAB.RAP.DR PEG SCH ×2 (08:01→18:47)
--- NOTE | 2018-12-06 08:14 | RAD ---
Chest radiograph 12/06/2018 8:00 AM INDICATION: Pneumonia COMPARISON: December 02, 2018 TECHNIQUE: Portable upright frontal view of the chest is provided. FINDINGS: The cardiomediastinal silhouette is similar in appearance. Tracheostomy tube and right chest wall infusion port catheter is in similar position. There is a trace left pleural effusion with adjacent compressive atelectasis versus infiltrate. No significant pulmonary vascular congestion. No pneumothorax. Mild chronic interstitial changes are identified bilaterally. There is subsegmental atelectasis at the right lung base. IMPRESSION: Aeration of lungs appears similar compared to prior examination. Electronically signed by: Genesis Trent MD (12/06/2018 8:12 AM) [id number]
--- NOTE | 2018-12-06 09:27 | PDOC ---
Infectious Disease Note Subjective: Subjective says has cough and congestion but improving some No fevers/SOA ROS: ROS Negative except for above. Vital Signs: Vital Signs Vital Signs Date Time Temp Pulse Resp B/P (MAP) Pulse Ox O2 Delivery O2 Flow Rate FiO2 12/06/18 09:18 100 8.0 12/06/18 08:01 83 158/74 12/06/18 08:00 Trach Collar 12/06/18 07:00 97.8 19 97.8 Physical Exam: PHYSICAL EXAM GENERAL: Propped up in bed, resting quietly NECK: Trach LUNGS: Less congested, nonlabored HEART: S1 and S2 ABDOMEN: Soft and nontender. EXTREMITIES: No edema or cyanosis. 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, responds appropriately Port - clean Medications: Inpatient Meds: Current Medications Medications (Trade) Dose Ordered Sig/Yuliana Start Time Stop Time Status Last Admin Dose Admin Albuterol Sulfate (Ventolin Neb Soln) 2.5 mg RTQID 12/03/18 08:00 12/06/18 07:18 Albuterol/ Ipratropium (Duoneb) 3 ml STK-MED ONCE 12/02/18 15:16 12/02/18 15:17 DC Amlodipine Besylate (Norvasc) 5 mg DAILY 12/03/18 09:54 12/06/18 08:01 Ceftolozane/ Tazobactam 750 mg/ Sodium Chloride 100 ml @ 100 mls/hr Q8HRS 12/05/18 14:30 12/05/18 16:42 DC 12/05/18 15:37 Cyproheptadine HCl (Periactin) 4 mg TID 12/03/18 09:00 12/06/18 08:00 Donepezil HCl (Aricept) 5 mg BID 12/03/18 09:00 12/06/18 08:00 Fentanyl (Duragesic 50mcg/ Hr Patch) 1 patch Q3DAYS 12/05/18 09:00 12/05/18 08:39 Gabapentin (Neurontin Oral Soln) 250 mg PRN BID PRN 12/05/18 01:00 12/05/18 01:15 Gabapentin (Neurontin) 300 mg PRN BID PRN 12/02/18 23:30 12/05/18 06:04 DC Hydralazine HCl (Apresoline Inj) 10 mg PRN Q4HRS PRN 12/03/18 16:15 Lactobacillus Rhamnosus (Culturelle) 1 cap BID 12/03/18 09:00 12/03/18 09:52 DC 12/03/18 09:24 Lansoprazole (Prevacid) 30 mg BIDBFRMEAL 12/03/18 16:30 12/06/18 08:01 Metoclopramide HCl (Reglan) 5 mg QIDACHS 12/03/18 09:54 12/06/18 08:00 Morphine Sulfate (Morphine Sulfate) 2 mg PRN Q2HR PRN 12/02/18 16:45 12/03/18 16:44 DC 12/03/18 14:16 Non-Formulary Medication (Albuterol Sulfate (Albuterol Sulfate Neb Soln)) 1 vial QID 12/03/18 09:00 UNV Ondansetron HCl (Zofran Odt) 4 mg PRN QID PRN 12/02/18 23:30 12/05/18 12:06 Ondansetron HCl (Zofran) 4 mg PRN Q8HRS PRN 12/02/18 16:45 12/03/18 16:44 DC Oxycodone/ Acetaminophen (Percocet 7.5/ 325) 1 tab PRN QID PRN 12/03/18 09:54 12/06/18 08:00 Pantoprazole Sodium (Protonix) 40 mg BIDBFRMEAL 12/03/18 07:30 12/03/18 09:53 DC 12/03/18 09:24 Piperacillin Sod/ Tazobactam Sod (Zosyn Per Pharmacy) 1 each PRN DAILY PRN 12/02/18 16:45 12/05/18 14:03 DC Piperacillin Sod/ Tazobactam Sod 3.375 gm/Sodium Chloride 50 ml @ 100 mls/hr Q6HRS 12/05/18 18:00 12/06/18 05:32 Piperacillin Sod/ Tazobactam Sod 4.5 gm/Sodium Chloride 100 ml @ 200 mls/hr ONCE ONCE 12/02/18 17:00 12/02/18 17:29 DC 12/02/18 17:02 Sodium Chloride 750 ml @ 375 mls/hr 1X ONCE 12/02/18 19:00 12/02/18 20:59 DC 12/02/18 19:31 Vancomycin HCl (Vanco Per Pharmacy) 1 each PRN DAILY PRN 12/02/18 16:45 12/05/18 14:04 DC 12/04/18 09:04 Vancomycin HCl (Vancomycin Trough Level) 1 each 1X ONCE 12/05/18 20:30 12/05/18 20:30 DC Vancomycin HCl 1.25 gm/Sodium Chloride 250 ml @ 167 mls/hr ONCE ONCE 12/02/18 17:00 12/02/18 18:29 DC 12/02/18 19:39 Vancomycin HCl 1 gm/Sodium Chloride 250 ml @ 250 mls/hr Q12H 12/04/18 21:00 12/05/18 14:03 DC 12/05/18 08:39 Labs: Micro RUN DATE: 12/05/18 PAGE 1 RUN TIME: 1110 [facility] [address] [place] [address] Jorge Tierney M.D., Hospital Coordinator PATIENT: BERNARDO DE LEON ACCT: [id number] LOC: [address] [place] [address] U : [id number] AGE/SX: 78/F ROOM: [facility] REG : 12/02/[address]: CUONG SHIRLEY MD : 1940 BED: 1 DIS : STATUS: ADM IN TLOC: SPEC #: [id number] DAVID: 12/02/18-0796 STATUS: RES REQ #: [id number] RECD: 12/02/[address] [facility] [address]: ORION PAZ APRN SOURCE: SPUTUM ENTR: 12/02/18 [facility] DR: NIMCO MICHAEL MD [facility]: CATHERINE BRYANT MD ORDERED: SPUTUM CULTURE Procedure Result GRAM STAIN WHITE BLOOD CELLS Final Many GRAM STAIN EPITHELIAL CELLS Final Moderate GRAM STAIN RESULT 1 Final Comment Many gram positive cocci. GRAM STAIN RESULT 2 Final Comment Many gram negative rods. GRAM STAIN EVALUATION Final Comment This specimen is of good quality and is acceptable for routine bacterial culture. Performed at: [address] [id number] Vehicle Safety Inspector: YANG Lawrence MD, Phone: [phone] SPUTUM CULTURE-LC Preliminary Preliminary report SPUTUM CULT RES 1 Final Comment Pseudomonas aeruginosa 3+ Performed at: [address] [id number] Vehicle Safety Inspector: YANG Lawrence MD, Phone: [phone] * This is a corrected result. * CONTINUED ON NEXT PAGE RUN DATE: 12/05/18 PAGE 2 RUN TIME: 1111 [facility] [address] [facility] [place] [address] Jorge Tierney M.D., Hospital Coordinator SPEC: [id number] PATIENT: BERNARDO DE LEON [id number] ( Continued) Procedure Result SPUTUM CULT RES 1 Final (continued) A prior result that was reported as final has been changed. BC NGTD Objective: Assessment: Hypoxic respiratory failure. Respiratory infection, PSAE could be likely colonization History of lung cancer. Tracheostomy. History of laryngeal cancer. Leukocytosis,,improved ? reactive Plan: Plan of Care Cont Zosyn Monitor labs f/u cultures Supportive care ELIE MATOS MD Dec 06, 2018 09:27
--- NOTE | 2018-12-06 09:28 | PDOC ---
PULMONARY PROGRESS NOTES Subjective PT WITH BLOODY NOSE NOW INCREASE BLOODY SECRETION FROM TRACH Vitals Vital Signs Date Time Temp Pulse Resp B/P (MAP) Pulse Ox O2 Delivery O2 Flow Rate FiO2 12/06/18 09:18 100 8.0 12/06/18 08:01 83 158/74 12/06/18 08:00 Trach Collar 12/06/18 07:00 97.8 19 97.8 ROS: No Nausea, No Chest Pain, No Abdominal Pain, No Increase Cough General: Alert, No acute distress Lungs: Crackles (bases) Cardiovascular: S1, S2 Abdomen: Soft, Non-tender Extremities: No Edema Skin: Warm Labs Laboratory Tests Test 12/05/18 06:34 White Blood Count 8.8 x10^3/uL (4.0-11.0) Red Blood Count 4.14 x10^6/uL (3.50-5.40) Hemoglobin 9.2 g/dL (12.0-15.5) Hematocrit 30.7 % (36.0-47.0) Mean Corpuscular Volume 74 fL (79-100) Mean Corpuscular Hemoglobin 22 pg (25-35) Mean Corpuscular Hemoglobin Concent 30 g/dL (31-37) Red Cell Distribution Width 18.0 % (11.5-14.5) Platelet Count 407 x10^3/uL (140-400) Neutrophils (%) (Auto) 74 % (31-73) Lymphocytes (%) (Auto) 15 % (24-48) Monocytes (%) (Auto) 6 % (0-9) Eosinophils (%) (Auto) 5 % (0-3) Basophils (%) (Auto) 1 % (0-3) Neutrophils # (Auto) 6.5 x10^3uL (1.8-7.7) Lymphocytes # (Auto) 1.3 x10^3/uL (1.0-4.8) Monocytes # (Auto) 0.5 x10^3/uL (0.0-1.1) Eosinophils # (Auto) 0.4 x10^3/uL (0.0-0.7) Basophils # (Auto) 0.0 x10^3/uL (0.0-0.2) Sodium Level 137 mmol/L (136-145) Potassium Level 3.8 mmol/L (3.5-5.1) Chloride Level 100 mmol/L (98-107) Carbon Dioxide Level 32 mmol/L (21-32) Anion Gap 5 (6-14) Blood Urea Nitrogen 7 mg/dL (7-20) Creatinine 0.7 mg/dL (0.6-1.0) Estimated GFR (Cockcroft-Gault) 98.2 BUN/Creatinine Ratio 10 (6-20) Glucose Level 91 mg/dL (70-99) Calcium Level 8.8 mg/dL (8.5-10.1) Total Bilirubin 0.4 mg/dL (0.2-1.0) Aspartate Amino Transf (AST/SGOT) 16 U/L (15-37) Alanine Aminotransferase (ALT/SGPT) 8 U/L (14-59) Alkaline Phosphatase 54 U/L (46-116) Total Protein 7.7 g/dL (6.4-8.2) Albumin 2.3 g/dL (3.4-5.0) Albumin/Globulin Ratio 0.4 (1.0-1.7) Medications Active Scripts Medications Dose Route/Sig Max Daily Dose Days Date Category Albuterol Sulfate Neb Soln (Albuterol Sulfate) 0.63 Mg/3 Ml Vial.neb 1 Vial NEB QID 12/02/18 Reported Gabapentin (Gabapentin) 300 Mg Capsule 300 Mg PO BID PRN 10/19/18 Reported Amlodipine Besylate 5 Mg Tablet 5 Mg PO DAILY 10/19/18 Reported Culturelle (Lactobacillus Rhamnosus Gg) 1 Each Cap.sprink 1 Cap PO BID 30 07/07/17 Rx Pantoprazole Sodium 40 Mg Tablet.dr 40 Mg PEG BID 03/11/17 Reported Donepezil Hcl 5 Mg Tablet 5 Mg PEG BID 03/11/17 Reported Reglan (Metoclopramide Hcl) 10 Mg Tablet 5 Mg PO QIDACHS 03/11/17 Reported Cyproheptadine Hcl 2 Mg/5 Ml Syrup 10 Ml PEG TID 03/11/17 Reported Percocet 7.5-325 Mg Tablet (Oxycodone/Acetaminophen) 1 Each Tablet 1 Tab PO QID PRN 03/11/17 Reported FENTANYL 50mcg/hr (Fentanyl) 1 Each Patch.td72 1 Patch TP Q3DAYS 06/19/14 Reported Ondansetron Odt (Ondansetron) 4 Mg Tab.rapdis 4 Mg PEG QIDPRN PRN 06/19/14 Reported Impression . 1. Kyqvg-ef-nbkveuf respiratory failure secondary to clinically suspected pneumonia. 2. History of laryngeal and lung cancer, status post tracheostomy. 3. 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 4. History of chronic tracheostomy. 5. HEMATOSTAXICS SPUTUM CULTURE-LC Preliminary Preliminary report SPUTUM CULT RES 1 Final Comment Pseudomonas aeruginosa 3+ Performed at: - [facility] [id number], [place], [place] [id number] Psychology Intern: YANG Lawrence MD, Phone: [phone] * This is a corrected result. * Plan . CONTINUE THE SAME SPOKE WITH RN AND RT 1. Obtain trach secretion for C and S. 2. Continue with present antibiotics./ improved wbc 3. Follow chest x-rays in am 4. Continue present oxygen. 5. Enteral nutrition. ANURAG LOO MD Dec 06, 2018 09:28
--- NOTE | 2018-12-06 13:54 | PDOC ---
PROGRESS NOTES Chief Complaint Chief Complaint history of lung cancer and tracheostomy with recurrent infection. 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 The patient came in with shortness of breath, low-grade fever, leukocytosis. no chest pain at this time but primarily has cough with fever and an x-ray c/w pneumonia. has laryngeal cancer, history of dysphagia, PEG tube in place, tracheostomy in place. 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 History of Present Illness History of Present Illness Assessment/Plan Assessment/Plan IMPRESSION 1. Xhaiz-rc-ejbedun hypoxic respiratory failure secondary // suspected recurrent pneumonia. possible aspiration 2. Fever with abnormal chest x-ray with bilateral infiltrates, likely related to pneumonia. //history of multidrug resistant Pseudomonas aeruginosa pneumonia and methicillin resistant Staphylococcus aureus pneumonia. 3. chronic obstructive pulmonary disease with compensated respiratory acidosis and chronic hypoxic respiratory failure. 4. Leukocytosis // secondary to the infectious process 5. dementia 6. laryngeal cancer, 7.history of dysphagia, PEG tube in place, 8. tracheostomy in place 9. ASPIRATION PNEUMONIA 10. EPISTAXIS PLAN PULM CONSULT Emperic iv antibiotics, zosyn, vanc ID CONSULT Supportive care. Overall, long-term prognosis is poor per my chart review//. Discussed family// patient dvt prophylaxis trach secretion for C and S. NOTED 44 min pt exam, chart review > 50% of time with exam, chart review, pt care coordination Vitals Vitals Vital Signs Date Time Temp Pulse Resp B/P (MAP) Pulse Ox O2 Delivery O2 Flow Rate FiO2 12/06/18 12:01 100 Tracheal Collar 8.0 12/06/18 11:00 97.4 87 18 151/72 (98) 97.4 Physical Exam Physical Exam GENERAL: Propped up in bed, resting quietly NECK: Trach LUNGS: Less congested, nonlabored HEART: S1 and S2 ABDOMEN: Soft and nontender. EXTREMITIES: No edema or cyanosis. 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 FINDINGS: The cardiomediastinal silhouette is similar in appearance. Tracheostomy tube and right chest wall infusion port catheter is in similar position. There is a trace left pleural effusion with adjacent compressive atelectasis versus infiltrate. No significant pulmonary vascular congestion. No pneumothorax. Mild chronic interstitial changes are identified bilaterally. There is subsegmental atelectasis at the right lung base. IMPRESSION: Aeration of lungs appears similar compared to prior examination. Electronically signed by: Genesis Trent MD (12/06/2018 8:12 AM) [facility] [id number] GRAM STAIN WHITE BLOOD CELLS Final Many GRAM STAIN EPITHELIAL CELLS Final Moderate GRAM STAIN RESULT 1 Final Comment Many gram positive cocci. GRAM STAIN RESULT 2 Final Comment Many gram negative rods. GRAM STAIN EVALUATION Final Comment This specimen is of good quality and is acceptable for routine bacterial culture. Performed at: [place] [id number] Chief Engineer Research: YANG Lawrence MD, Phone: [phone] SPUTUM CULTURE-LC Preliminary Preliminary report SPUTUM CULT RES 1 Final Comment Pseudomonas aeruginosa 3+ Performed at: [address] [id number] Chief Engineer Research: YANG Lawrence MD, Phone: [phone] * This is a corrected result. * Assessment and Plan Assessmemt and Plan Problems Medical Problems: (1) Healthcare-associated pneumonia Status: Acute Comment Review of Relevant I have reviewed the following items miko (where applicable) has been applied. Labs Laboratory Tests Test 12/05/18 06:34 White Blood Count 8.8 x10^3/uL (4.0-11.0) Red Blood Count 4.14 x10^6/uL (3.50-5.40) Hemoglobin 9.2 g/dL (12.0-15.5) Hematocrit 30.7 % (36.0-47.0) Mean Corpuscular Volume 74 fL (79-100) Mean Corpuscular Hemoglobin 22 pg (25-35) Mean Corpuscular Hemoglobin Concent 30 g/dL (31-37) Red Cell Distribution Width 18.0 % (11.5-14.5) Platelet Count 407 x10^3/uL (140-400) Neutrophils (%) (Auto) 74 % (31-73) Lymphocytes (%) (Auto) 15 % (24-48) Monocytes (%) (Auto) 6 % (0-9) Eosinophils (%) (Auto) 5 % (0-3) Basophils (%) (Auto) 1 % (0-3) Neutrophils # (Auto) 6.5 x10^3uL (1.8-7.7) Lymphocytes # (Auto) 1.3 x10^3/uL (1.0-4.8) Monocytes # (Auto) 0.5 x10^3/uL (0.0-1.1) Eosinophils # (Auto) 0.4 x10^3/uL (0.0-0.7) Basophils # (Auto) 0.0 x10^3/uL (0.0-0.2) Sodium Level 137 mmol/L (136-145) Potassium Level 3.8 mmol/L (3.5-5.1) Chloride Level 100 mmol/L (98-107) Carbon Dioxide Level 32 mmol/L (21-32) Anion Gap 5 (6-14) Blood Urea Nitrogen 7 mg/dL (7-20) Creatinine 0.7 mg/dL (0.6-1.0) Estimated GFR (Cockcroft-Gault) 98.2 BUN/Creatinine Ratio 10 (6-20) Glucose Level 91 mg/dL (70-99) Calcium Level 8.8 mg/dL (8.5-10.1) Total Bilirubin 0.4 mg/dL (0.2-1.0) Aspartate Amino Transf (AST/SGOT) 16 U/L (15-37) Alanine Aminotransferase (ALT/SGPT) 8 U/L (14-59) Alkaline Phosphatase 54 U/L (46-116) Total Protein 7.7 g/dL (6.4-8.2) Albumin 2.3 g/dL (3.4-5.0) Albumin/Globulin Ratio 0.4 (1.0-1.7) Microbiology 12/02/18 Blood Culture - Preliminary, Resulted NO GROWTH AFTER 3 DAYS 12/02/18 - Final, Resulted 12/02/18 - Final, Resulted 12/02/18 - Final, Resulted 12/02/18 - Final, Resulted 12/02/18 Gram Stain Evaluation - Final, Resulted 12/02/18 Sputum Culture - Preliminary, Resulted 12/02/18 Sputum Result 1 - Final, Resulted Medications Current Medications Albuterol/ Ipratropium (Duoneb) 3 ml STK-MED ONCE .ROUTE ; Start 12/02/18 at 15: 16; Stop 12/02/18 at 15:17; Status DC Ondansetron HCl (Zofran) 4 mg PRN Q8HRS PRN IV NAUSEA/VOMITING; Start 12/02/18 at 16:45; Stop 12/03/18 at 16:44; Status DC Morphine Sulfate (Morphine Sulfate) 2 mg PRN Q2HR PRN IV PAIN Last administered on 12/03/18at 14:16; Start 12/02/18 at 16:45; Stop 12/03/18 at 16:44 ; Status DC Sodium Chloride 1,000 ml @ 100 mls/hr Q10H IV Last administered on 12/02/18at 19:41; Start 12/02/18 at 16:39; Stop 12/02/18 at 20:38; Status DC Vancomycin HCl (Vanco Per Pharmacy) 1 each PRN DAILY PRN MC SEE COMMENTS Last administered on 12/04/18at 09:04; Start 12/02/18 at 16:45; Stop 12/05/18 at 14:04 ; Status DC Piperacillin Sod/ Tazobactam Sod (Zosyn Per Pharmacy) 1 each PRN DAILY PRN MC SEE COMMENTS; Start 12/02/18 at 16:45; Stop 12/05/18 at 14:03; Status DC Vancomycin HCl 1.25 gm/Sodium Chloride 250 ml @ 167 mls/hr ONCE ONCE IV Last administered on 12/02/18at 19:39; Start 12/02/18 at 17:00; Stop 12/02/18 at 18:29 ; Status DC Piperacillin Sod/ Tazobactam Sod 4.5 gm/Sodium Chloride 100 ml @ 200 mls/hr ONCE ONCE IV Last administered on 12/02/18at 17:02; Start 12/02/18 at 17:00; Stop 12/02/18 at 17:29; Status DC Piperacillin Sod/ Tazobactam Sod 3.375 gm/Sodium Chloride 50 ml @ 100 mls/hr Q6HRS IV Last administered on 12/05/18at 12:08; Start 12/03/18 at 00:00; Stop at 14:03; Status DC Vancomycin HCl 1 gm/Sodium Chloride 250 ml @ 250 mls/hr Q18H IV Last administered on 12/04/18at 09:25; Start 12/03/18 at 14:00; Stop 12/04/18 at 12:00 ; Status DC Vancomycin HCl (Vancomycin Trough Level) 1 each 1X ONCE MC ; Start 12/04/18 at 07:30; Stop 12/04/18 at 07:31; Status DC Sodium Chloride 750 ml @ 375 mls/hr 1X ONCE IV Last administered on at 19:31; Start 12/02/18 at 19:00; Stop 12/02/18 at 20:59; Status DC Amlodipine Besylate (Norvasc) 5 mg DAILY PO Last administered on 12/03/18at 09: 25; Start 12/03/18 at 09:00; Stop 12/03/18 at 09:54; Status DC Fentanyl (Duragesic 50mcg/ Hr Patch) 1 patch Q3DAYS TD Last administered on at 08:39; Start 12/05/18 at 09:00 Gabapentin (Neurontin) 300 mg PRN BID PRN PO NEUROPATHIC PAIN; Start 12/02/18 at 23:30; Stop 12/05/18 at 06:04; Status DC Lactobacillus Rhamnosus (Culturelle) 1 cap BID PO Last administered on at 09:24; Start 12/03/18 at 09:00; Stop 12/03/18 at 09:52; Status DC Metoclopramide HCl (Reglan) 5 mg QIDACHS PO Last administered on 12/03/18 09: 24; Start 12/03/18 at 07:30; Stop 12/03/18 at 09:54; Status DC Ondansetron HCl (Zofran Odt) 4 mg PRN QID PRN PEG NAUSEA/VOMITING Last administered on 12/05/18at 12:06; Start 12/02/18 at 23:30 Oxycodone/ Acetaminophen (Percocet 7.5/ 325) 1 tab PRN QID PRN PO PAIN Last administered on 12/03/18 09:26; Start 12/02/18 at 23:30; Stop 12/03/18 at 09:54 ; Status DC Pantoprazole Sodium (Protonix) 40 mg BIDBFRMEAL PO Last administered on 09:24; Start 12/03/18 at 07:30; Stop 12/03/18 at 09:53; Status DC Non-Formulary Medication (Albuterol Sulfate (Albuterol Sulfate Neb Soln)) 1 vial QID NEB ; Start 12/03/18 at 09:00; Status UNV Cyproheptadine HCl (Periactin) 4 mg TID PEG Last administered on 12/06/18 08: 00; Start 12/03/18 at 09:00 Donepezil HCl (Aricept) 5 mg BID PEG Last administered on 12/06/18 08:00; Start 12/03/18 at 09:00 Albuterol Sulfate (Ventolin Neb Soln) 2.5 mg RTQID NEB Last administered on 11:39; Start 12/03/18 at 08:00 Lansoprazole (Prevacid) 30 mg BIDBFRMEAL PEG Last administered on 12/06/18 08: 01; Start 12/03/18 at 16:30 Amlodipine Besylate (Norvasc) 5 mg DAILY PEG Last administered on 12/06/18 08: 01; Start 12/03/18 at 09:54 Metoclopramide HCl (Reglan) 5 mg QIDACHS PEG Last administered on 12/06/18 12: 36; Start 12/03/18 at 09:54 Oxycodone/ Acetaminophen (Percocet 7.5/ 325) 1 tab PRN QID PRN PEG PAIN Last administered on 12/06/18 08:00; Start 12/03/18 at 09:54 Hydralazine HCl (Apresoline Inj) 10 mg PRN Q4HRS PRN IVP ELEVATED BP, SEE COMMENTS; Start 12/03/18 at 16:15 Vancomycin HCl 1 gm/Sodium Chloride 250 ml @ 250 mls/hr Q12H IV Last administered on 12/05/18 08:39; Start 12/04/18 at 21:00; Stop 12/05/18 at 14:03 ; Status DC Vancomycin HCl (Vancomycin Trough Level) 1 each 1X ONCE MC ; Start 12/05/18 at 20:30; Stop 12/05/18 at 20:30; Status DC Gabapentin (Neurontin Oral Soln) 250 mg PRN BID PRN PEG NEUROPATHIC PAIN Last administered on 12/05/18at 01:15; Start 12/05/18 at 01:00 Ceftolozane/ Tazobactam 750 mg/ Sodium Chloride 100 ml @ 100 mls/hr Q8HRS IV Last administered on 12/05/18at 15:37; Start 12/05/18 at 14:30; Stop 12/05/18 at 16:42; Status DC Piperacillin Sod/ Tazobactam Sod 3.375 gm/Sodium Chloride 50 ml @ 100 mls/hr Q6HRS IV Last administered on 12/06/18at 12:36; Start 12/05/18 at 18:00 Active Scripts Active Culturelle (Lactobacillus Rhamnosus Gg) 1 Each Cap.sprink 1 Cap PO BID 30 Days Reported Albuterol Sulfate Neb Soln (Albuterol Sulfate) 0.63 Mg/3 Ml Vial.neb 1 Vial NEB QID Gabapentin (Gabapentin) 300 Mg Capsule 300 Mg PO BID PRN Amlodipine Besylate 5 Mg Tablet 5 Mg PO DAILY Pantoprazole Sodium 40 Mg Tablet.dr 40 Mg PEG BID Donepezil Hcl 5 Mg Tablet 5 Mg PEG BID Reglan (Metoclopramide Hcl) 10 Mg Tablet 5 Mg PO QIDACHS Cyproheptadine Hcl 2 Mg/5 Ml Syrup 10 Ml PEG TID Percocet 7.5-325 Mg Tablet (Oxycodone/Acetaminophen) 1 Each Tablet 1 Tab PO QID PRN FENTANYL 50mcg/hr (Fentanyl) 1 Each Patch.td72 1 Patch TP Q3DAYS Ondansetron Odt (Ondansetron) 4 Mg Tab.rapdis 4 Mg PEG QIDPRN PRN Vitals/I & O Vital Sign - Last 24 Hours 12/05/18 12/05/18 12/05/18 12/05/18 14:55 15:58 19:30 19:37 Temp 98.6 98.6 Pulse 77 Resp 17 B/P (MAP) 127/60 (82) Pulse Ox 100 100 100 O2 Delivery Tracheal Collar Tracheal Collar Trach Collar Tracheal Collar O2 Flow Rate 10.0 10.0 10.0 8.0 12/05/18 12/05/18 12/05/18 12/05/18 19:50 21:31 22:31 23:28 Temp 98.5 98.1 98.5 98.1 Pulse 83 87 Resp 20 20 20 20 B/P (MAP) 148/70 (96) 143/67 (92) Pulse Ox 97 100 O2 Delivery Tracheal Collar Tracheal Collar Tracheal Collar Tracheal Collar O2 Flow Rate 10.0 10.0 12/06/18 12/06/18 12/06/18 12/06/18 03:05 07:00 07:18 08:00 Temp 98.2 97.8 98.2 97.8 Pulse 78 86 Resp 20 19 B/P (MAP) 160/74 (102) 158/74 (102) Pulse Ox 96 89 100 100 O2 Delivery Tracheal Collar Tracheal Collar Tracheal Collar O2 Flow Rate 10.0 10.0 8.0 8.0 12/06/18 12/06/18 12/06/18 12/06/18 08:00 08:01 09:18 11:00 Temp 97.4 97.4 Pulse 83 87 Resp 18 B/P (MAP) 158/74 151/72 (98) Pulse Ox 100 90 O2 Delivery Trach Collar Tracheal Collar O2 Flow Rate 8.0 8.0 10.0 12/06/18 12:01 Pulse Ox 100 O2 Delivery Tracheal Collar O2 Flow Rate 8.0 Intake and Output 12/05/18 12/05/18 12/06/18 14:59 22:59 06:59 Intake Total 1700 ml 400 ml Output Total 200 ml 300 ml Balance 1500 ml 100 ml Nutrition Consultation Dietary Evaluation: Recommendations by RD: Increase Calorie Intake Comments: Continue TF per current order: Jevity 1.5 bolus QID, 237 ml (1 can)/bolus, w/200 ml water flushes w/each bolus Expected Outcomes/Goals: TF infusion to meet >75% est needs Malnutrition Findings: Body Fat Depletion (Non Severe: Mod to Severe Weight Status: Underweight CUONG SHIRLEY MD Dec 06, 2018 13:54
[2018-12-06] MEDS: ONDANSETRON ODT 4 MG TAB.RAPDIS. PEG PRN (21:20)
[2018-12-06] MEDS ORDERED: IBUPROFEN 100 MG/5 ML ORAL.SUSP. PO PRN (22:45)
[2018-12-06] MEDS ORDERED: ACETAMINOPHEN 650 MG/20.3 ML SOLUTION. PEG PRN (22:45)
[2018-12-06] MEDS: hydrALAZINE 20 MG/ML VIAL. IVP PRN (23:22)
[2018-12-06] MEDS: oxyCODONE/APAP 7.5/325 1 TAB TABLET PO PRN (23:23)
[2018-12-07] VITALS (7 sets, daily range): BP systolic 132–217; BP diastolic 60–91
[2018-12-07] MEDS: PIPERACILLIN/TAZOBACTAM 3.375 GM in IV NORMAL SALINE 50ML 50 ML IV SCH ×2 (00:05→05:37)
[2018-12-07] MEDS: oxyCODONE/APAP 7.5/325 1 TAB TABLET PO PRN ×4 (03:16→20:47)
[2018-12-07] MEDS: hydrALAZINE 20 MG/ML VIAL. IVP PRN (03:48)
[2018-12-07] MEDS: LANSOPRAZOLE 30 MG TAB.RAP.DR PEG SCH ×2 (07:20→16:30)
[2018-12-07] MEDS: METOCLOPRAMIDE 10 MG TABLET. PEG SCH ×4 (07:20→20:46)
[2018-12-07] MEDS: ALBUTEROL SULFATE 2.5 MG/3 ML NEBU. NEB SCH ×4 (07:54→20:00)
--- NOTE | 2018-12-07 08:41 | PDOC ---
Infectious Disease Note Vital Signs: Vital Signs Vital Signs Date Time Temp Pulse Resp B/P (MAP) Pulse Ox O2 Delivery O2 Flow Rate FiO2 12/07/18 07:18 16 99 Tracheal Collar 10.0 12/07/18 07:00 98.9 110 160/74 (102) 98.9 Medications: Inpatient Meds: Current Medications Medications (Trade) Dose Ordered Sig/Yuliana Start Time Stop Time Status Last Admin Dose Admin Acetaminophen (Tylenol) 650 mg PRN Q6HRS PRN 12/06/18 22:45 12/07/18 00:06 650 MG Albuterol Sulfate (Ventolin Neb Soln) 2.5 mg RTQID 12/03/18 08:00 12/07/18 07:54 2.5 MG Albuterol/ Ipratropium (Duoneb) 3 ml STK-MED ONCE 12/02/18 15:16 12/02/18 15:17 DC Amlodipine Besylate (Norvasc) 5 mg DAILY 12/03/18 09:54 12/06/18 08:01 5 MG Ceftolozane/ Tazobactam 750 mg/ Sodium Chloride 100 ml @ 100 mls/hr Q8HRS 12/05/18 14:30 12/05/18 16:42 DC 12/05/18 15:37 100 MLS/HR Cyproheptadine HCl (Periactin) 4 mg TID 12/03/18 09:00 12/06/18 21:20 4 MG Donepezil HCl (Aricept) 5 mg BID 12/03/18 09:00 12/06/18 21:20 5 MG Fentanyl (Duragesic 50mcg/ Hr Patch) 1 patch Q3DAYS 12/05/18 09:00 12/05/18 08:39 1 PATCH Gabapentin (Neurontin Oral Soln) 250 mg PRN BID PRN 12/05/18 01:00 12/05/18 01:15 250 MG Gabapentin (Neurontin) 300 mg PRN BID PRN 12/02/18 23:30 12/05/18 06:04 DC Hydralazine HCl (Apresoline Inj) 10 mg PRN Q4HRS PRN 12/03/18 16:15 12/07/18 03:48 10 MG Ibuprofen (Children'S Motrin) 400 mg PRN Q6HRS PRN 12/06/18 22:45 Lactobacillus Rhamnosus (Culturelle) 1 cap BID 12/03/18 09:00 12/03/18 09:52 DC 12/03/18 09:24 1 CAP Lansoprazole (Prevacid) 30 mg BIDBFRMEAL 12/03/18 16:30 12/07/18 07:20 30 MG Metoclopramide HCl (Reglan) 5 mg QIDACHS 12/03/18 09:54 12/07/18 07:20 5 MG Morphine Sulfate (Morphine Sulfate) 2 mg PRN Q2HR PRN 12/02/18 16:45 12/03/18 16:44 DC 12/03/18 14:16 2 MG Non-Formulary Medication (Albuterol Sulfate (Albuterol Sulfate Neb Soln)) 1 vial QID 12/03/18 09:00 UNV Ondansetron HCl (Zofran Odt) 4 mg PRN QID PRN 12/02/18 23:30 12/06/18 21:20 4 MG Ondansetron HCl (Zofran) 4 mg PRN Q8HRS PRN 12/02/18 16:45 12/03/18 16:44 DC Oxycodone/ Acetaminophen (Percocet 7.5/ 325) 1 tab PRN Q4HRS PRN 12/06/18 19:00 12/07/18 07:18 1 TAB Pantoprazole Sodium (Protonix) 40 mg BIDBFRMEAL 12/03/18 07:30 12/03/18 09:53 DC 12/03/18 09:24 40 MG Piperacillin Sod/ Tazobactam Sod (Zosyn Per Pharmacy) 1 each PRN DAILY PRN 12/02/18 16:45 12/05/18 14:03 DC Piperacillin Sod/ Tazobactam Sod 3.375 gm/Sodium Chloride 50 ml @ 100 mls/hr Q6HRS 12/05/18 18:00 12/07/18 05:37 100 MLS/HR Piperacillin Sod/ Tazobactam Sod 4.5 gm/Sodium Chloride 100 ml @ 200 mls/hr ONCE ONCE 12/02/18 17:00 12/02/18 17:29 DC 12/02/18 17:02 200 MLS/HR Sodium Chloride 750 ml @ 375 mls/hr 1X ONCE 12/02/18 19:00 12/02/18 20:59 DC 12/02/18 19:31 375 MLS/HR Vancomycin HCl (Vanco Per Pharmacy) 1 each PRN DAILY PRN 12/02/18 16:45 12/05/18 14:04 DC 12/04/18 09:04 1 EACH Vancomycin HCl (Vancomycin Trough Level) 1 each 1X ONCE 12/05/18 20:30 12/05/18 20:30 DC Vancomycin HCl 1.25 gm/Sodium Chloride 250 ml @ 167 mls/hr ONCE ONCE 12/02/18 17:00 12/02/18 18:29 DC 12/02/18 19:39 167 MLS/HR Vancomycin HCl 1 gm/Sodium Chloride 250 ml @ 250 mls/hr Q12H 12/04/18 21:00 12/05/18 14:03 DC 12/05/18 08:39 250 MLS/HR Labs: Micro RUN DATE: 12/05/18 PAGE 1 RUN TIME: 1110 [facility] [address] [place] [address] Jorge Tierney M.D., Jeeper Operator PATIENT: BERNARDO DE LEON ACCT: [id number] LOC: [address] [place] [address] U : [id number] AGE/SX: 78/F ROOM: 203 REG : 12/02/[address]: CUONG SHIRLEY MD : 1940 BED: 1 DIS : STATUS: ADM IN TLOC: SPEC #: [id number] DAVID: 12/02/18 STATUS: RES REQ #: [id number] RECD: 12/02/18 [facility] DR: ORION PAZ APRN SOURCE: SPUTUM ENTR: 12/02/[address] [facility] [address]: NIMCO MICHAEL [facility]: INDUCED CATHERINE MOSCOSO MD ORDERED: SPUTUM CULTURE Procedure Result GRAM STAIN WHITE BLOOD CELLS Final Many GRAM STAIN EPITHELIAL CELLS Final Moderate GRAM STAIN RESULT 1 Final Comment Many gram positive cocci. GRAM STAIN RESULT 2 Final Comment Many gram negative rods. GRAM STAIN EVALUATION Final Comment This specimen is of good quality and is acceptable for routine bacterial culture. Performed at: [address] [id number] Local Coordinator: YANG Lawrence MD, Phone: [phone] SPUTUM CULTURE-LC Preliminary Preliminary report SPUTUM CULT RES 1 Final Comment Pseudomonas aeruginosa 3+ Performed at: [address] [id number] Local Coordinator: YANG Lawrence MD, Phone: [phone] * This is a corrected result. * CONTINUED ON NEXT PAGE RUN DATE: 12/05/18 PAGE 2 RUN TIME: 1111 [facility] [address] [place] [address] Jorge Tierney M.D., Jeeper Operator SPEC: [id number] PATIENT: BERNARDO DE LEON [id number] ( Continued) Procedure Result SPUTUM CULT RES 1 Final (continued) A prior result that was reported as final has been changed. BC NGTD Objective: Assessment: Duplicate note Plan: Plan of Care as above ELIE MATOS MD Dec 07, 2018 08:41
--- NOTE | 2018-12-07 09:19 | PDOC ---
PULMONARY PROGRESS NOTES Subjective PT WITH BLOODY NOSE NOW INCREASE BLOODY SECRETION FROM TRACH Vitals Vital Signs Date Time Temp Pulse Resp B/P (MAP) Pulse Ox O2 Delivery O2 Flow Rate FiO2 12/07/18 07:18 16 99 Tracheal Collar 10.0 12/07/18 07:00 98.9 110 160/74 (102) 98.9 ROS: No Nausea, No Chest Pain, No Abdominal Pain, No Increase Cough General: Alert, No acute distress Lungs: Crackles (bases) Cardiovascular: S1, S2 Abdomen: Soft, Non-tender Extremities: No Edema Skin: Warm Medications Active Scripts Medications Dose Route/Sig Max Daily Dose Days Date Category Albuterol Sulfate Neb Soln (Albuterol Sulfate) 0.63 Mg/3 Ml Vial.neb 1 Vial NEB QID 12/02/18 Reported Gabapentin (Gabapentin) 300 Mg Capsule 300 Mg PO BID PRN 10/19/18 Reported Amlodipine Besylate 5 Mg Tablet 5 Mg PO DAILY 10/19/18 Reported Culturelle (Lactobacillus Rhamnosus Gg) 1 Each Cap.sprink 1 Cap PO BID 30 07/07/17 Rx Pantoprazole Sodium 40 Mg Tablet.dr 40 Mg PEG BID 03/11/17 Reported Donepezil Hcl 5 Mg Tablet 5 Mg PEG BID 03/11/17 Reported Reglan (Metoclopramide Hcl) 10 Mg Tablet 5 Mg PO QIDACHS 03/11/17 Reported Cyproheptadine Hcl 2 Mg/5 Ml Syrup 10 Ml PEG TID 03/11/17 Reported Percocet 7.5-325 Mg Tablet (Oxycodone/Acetaminophen) 1 Each Tablet 1 Tab PO QID PRN 03/11/17 Reported FENTANYL 50mcg/hr (Fentanyl) 1 Each Patch.td72 1 Patch TP Q3DAYS 06/19/14 Reported Ondansetron Odt (Ondansetron) 4 Mg Tab.rapdis 4 Mg PEG QIDPRN PRN 06/19/14 Reported Impression . 1. Pbxuq-[id number]-[id number] respiratory failure secondary to clinically suspected pneumonia. 2. History of laryngeal and lung cancer, status post tracheostomy. 3. 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 4. History of chronic tracheostomy. 5. HEMATOSTAXICS SPUTUM CULTURE-LC Preliminary Preliminary report SPUTUM CULT RES 1 Final Comment Pseudomonas aeruginosa 3+ Performed at: [place] [id number] [facility] [address], [place], [place] [id number] Bi Report Developer: YANG Lawrence MD, Phone: [phone] * This is a corrected result. * Plan . DALE IN AM WILL CONTINUE THE SAME FOR NOW SPOKE WITH RN AND RT ANURAG LOO MD Dec 07, 2018 09:19
[2018-12-07] MEDS: amLODIPine BESYLATE 5 MG TABLET PEG SCH (09:24)
[2018-12-07] MEDS: DONEPEZIL HCL 5 MG TABLET. PEG SCH ×2 (09:24→20:46)
[2018-12-07] MEDS: CYPROHEPTADINE 4 MG TABLET. PEG SCH ×3 (09:24→20:29)
[2018-12-07 09:26] LABS: PROTHROMBIN TIME PATIENT 14.8 SEC (11.7-14.0)
--- NOTE | 2018-12-07 09:26 | PDOC ---
Infectious Disease Note Subjective: Subjective pt says she has blood stained sputum yesterday today her resp status is waxing and waning had t max 99 says is hungry d/w RN ROS: ROS Negative except for above. Vital Signs: Vital Signs Vital Signs Date Time Temp Pulse Resp B/P (MAP) Pulse Ox O2 Delivery O2 Flow Rate FiO2 12/07/18 07:18 16 99 Tracheal Collar 10.0 12/07/18 07:00 98.9 110 160/74 (102) 98.9 Physical Exam: PHYSICAL EXAM GENERAL: Propped up in bed, resting quietly NECK: Trach LUNGS: Less congested, nonlabored HEART: S1 and S2 ABDOMEN: Soft and nontender. EXTREMITIES: No edema or cyanosis. 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 Port - clean Medications: Inpatient Meds: Current Medications Medications (Trade) Dose Ordered Sig/Yuliana Start Time Stop Time Status Last Admin Dose Admin Acetaminophen (Tylenol) 650 mg PRN Q6HRS PRN 12/06/18 22:45 12/07/18 00:06 650 MG Albuterol Sulfate (Ventolin Neb Soln) 2.5 mg RTQID 12/03/18 08:00 12/07/18 07:54 2.5 MG Albuterol/ Ipratropium (Duoneb) 3 ml STK-MED ONCE 12/02/18 15:16 12/02/18 15:17 DC Amlodipine Besylate (Norvasc) 5 mg DAILY 12/03/18 09:54 12/06/18 08:01 5 MG Ceftolozane/ Tazobactam 750 mg/ Sodium Chloride 100 ml @ 100 mls/hr Q8HRS 12/05/18 14:30 12/05/18 16:42 DC 12/05/18 15:37 100 MLS/HR Cyproheptadine HCl (Periactin) 4 mg TID 12/03/18 09:00 12/06/18 21:20 4 MG Donepezil HCl (Aricept) 5 mg BID 12/03/18 09:00 12/06/18 21:20 5 MG Fentanyl (Duragesic 50mcg/ Hr Patch) 1 patch Q3DAYS 12/05/18 09:00 12/05/18 08:39 1 PATCH Gabapentin (Neurontin Oral Soln) 250 mg PRN BID PRN 12/05/18 01:00 12/05/18 01:15 250 MG Gabapentin (Neurontin) 300 mg PRN BID PRN 12/02/18 23:30 12/05/18 06:04 DC Hydralazine HCl (Apresoline Inj) 10 mg PRN Q4HRS PRN 12/03/18 16:15 12/07/18 03:48 10 MG Ibuprofen (Children'S Motrin) 400 mg PRN Q6HRS PRN 12/06/18 22:45 Lactobacillus Rhamnosus (Culturelle) 1 cap BID 12/03/18 09:00 12/03/18 09:52 DC 12/03/18 09:24 1 CAP Lansoprazole (Prevacid) 30 mg BIDBFRMEAL 12/03/18 16:30 12/07/18 07:20 30 MG Metoclopramide HCl (Reglan) 5 mg QIDACHS 12/03/18 09:54 12/07/18 07:20 5 MG Morphine Sulfate (Morphine Sulfate) 2 mg PRN Q2HR PRN 12/02/18 16:45 12/03/18 16:44 DC 12/03/18 14:16 2 MG Non-Formulary Medication (Albuterol Sulfate (Albuterol Sulfate Neb Soln)) 1 vial QID 12/03/18 09:00 UNV Ondansetron HCl (Zofran Odt) 4 mg PRN QID PRN 12/02/18 23:30 12/06/18 21:20 4 MG Ondansetron HCl (Zofran) 4 mg PRN Q8HRS PRN 12/02/18 16:45 12/03/18 16:44 DC Oxycodone/ Acetaminophen (Percocet 7.5/ 325) 1 tab PRN Q4HRS PRN 12/06/18 19:00 12/07/18 07:18 1 TAB Pantoprazole Sodium (Protonix) 40 mg BIDBFRMEAL 12/03/18 07:30 12/03/18 09:53 DC 12/03/18 09:24 40 MG Piperacillin Sod/ Tazobactam Sod (Zosyn Per Pharmacy) 1 each PRN DAILY PRN 12/02/18 16:45 12/05/18 14:03 DC Piperacillin Sod/ Tazobactam Sod 3.375 gm/Sodium Chloride 50 ml @ 100 mls/hr Q6HRS 12/05/18 18:00 12/07/18 05:37 100 MLS/HR Piperacillin Sod/ Tazobactam Sod 4.5 gm/Sodium Chloride 100 ml @ 200 mls/hr ONCE ONCE 12/02/18 17:00 12/02/18 17:29 DC 12/02/18 17:02 200 MLS/HR Sodium Chloride 750 ml @ 375 mls/hr 1X ONCE 12/02/18 19:00 12/02/18 20:59 DC 12/02/18 19:31 375 MLS/HR Vancomycin HCl (Vanco Per Pharmacy) 1 each PRN DAILY PRN 12/02/18 16:45 12/05/18 14:04 DC 12/04/18 09:04 1 EACH Vancomycin HCl (Vancomycin Trough Level) 1 each 1X ONCE 12/05/18 20:30 12/05/18 20:30 DC Vancomycin HCl 1.25 gm/Sodium Chloride 250 ml @ 167 mls/hr ONCE ONCE 12/02/18 17:00 12/02/18 18:29 DC 12/02/18 19:39 167 MLS/HR Vancomycin HCl 1 gm/Sodium Chloride 250 ml @ 250 mls/hr Q12H 12/04/18 21:00 12/05/18 14:03 DC 12/05/18 08:39 250 MLS/HR Labs: Micro RUN DATE: 12/05/18 PAGE 1 RUN TIME: 1111 [facility] [address] [place] [address] Jorge Tierney M.D., [employer] Power Plant Manager PATIENT: BERNARDO DE LEON ACCT: [id number] LOC: [address] [place] [address] U : [id number] AGE/SX: 78/F ROOM: [facility] REG : 12/02/[address]: CUONG SHIRLEY MD : 1940 BED: 1 DIS : STATUS: ADM IN TLOC: SPEC #: [id number] DAVID: 12/02/18 STATUS: RES REQ #: [id number] RECD: 12/02/[address] [facility] [address]: ORION PAZ APRN SOURCE: SPUTUM ENTR: 12/02/[address] [facility] [address]: NIMCO MICHAEL MD SPDESC: INDUCED CATHERINE MOSCOSO MD ORDERED: SPUTUM CULTURE Procedure Result GRAM STAIN WHITE BLOOD CELLS Final Many GRAM STAIN EPITHELIAL CELLS Final Moderate GRAM STAIN RESULT 1 Final Comment Many gram positive cocci. GRAM STAIN RESULT 2 Final Comment Many gram negative rods. GRAM STAIN EVALUATION Final Comment This specimen is of good quality and is acceptable for routine bacterial culture. Performed at: - [facility], [place], [place] [id number] Healthcare Corporate Account Director: YANG Lawrence MD, Phone: [phone] SPUTUM CULTURE- Preliminary Preliminary report SPUTUM CULT RES 1 Final Comment Pseudomonas aeruginosa 3+ Performed at: DA - [facility] [place] [address] [facility] [address], [place], [place] [id number] Healthcare Corporate Account Director: YANG Lawrence MD, Phone: [phone] * This is a corrected result. * CONTINUED ON NEXT PAGE RUN DATE: 12/05/18 PAGE 2 RUN TIME: 1111 [facility] [address] [place] [address] Jorge Tierney M.D., Hydrogen Power Plant Manager SPEC: [id number] PATIENT: BERNARDO DE LEON [id number] ( Continued) Procedure Result SPUTUM CULT RES 1 Final (continued) A prior result that was reported as final has been changed. BC NGTD Objective: Assessment: Hypoxic respiratory failure. Respiratory infection, PSAE could be likely colonization but has waxing and waning of status, ? mucus plug History of lung cancer. Tracheostomy. History of laryngeal cancer. Leukocytosis,,improved ? reactive Plan: Plan of Care VIKA Kennedy Change to zerbaxa for now f/u trach cult Pulm following , Monitor labs Supportive care D/W pharmacy D/W ELIE VAZQUEZ MD Dec 07, 2018 09:26
[2018-12-07 09:37] LABS: CALCIUM 8.9 mg/dL (8.5-10.1); CREATININE 0.8 mg/dL (0.6-1.0); GFR 84.2; POTASSIUM 3.6 mmol/L (3.5-5.1)
[2018-12-07 09:52] LABS: BASO # 0.1 x10^3/uL (0.0-0.2); BASO % 0 % (0-3); EOS # 0.1 x10^3/uL (0.0-0.7); EOS % 1 % (0-3); HEMATOCRIT 32.3 % (36.0-47.0); HEMOGLOBIN 9.6 g/dL (12.0-15.5); LYMPH # 1.7 x10^3/uL (1.0-4.8); LYMPH % 13 % (24-48); MEAN CORPUSCULAR HEMOGLOBIN 22 pg (25-35); MEAN CORPUSCULAR HGB CONC 30 g/dL (31-37); MEAN CORPUSCULAR VOLUME 74 fL (79-100); MONO # 0.8 x10^3/uL (0.0-1.1); MONO % 6 % (0-9); NEUT # 10.8 x10^3uL (1.8-7.7); NEUT % 80 % (31-73); PLATELET COUNT 402 x10^3/uL (140-400); RED BLOOD COUNT 4.36 x10^6/uL (3.50-5.40); RED CELL DISTRIBUTION WIDTH 18.3 % (11.5-14.5); WHITE BLOOD COUNT 13.4 x10^3/uL (4.0-11.0)
--- NOTE | 2018-12-07 10:54 | PDOC ---
PROGRESS NOTES Chief Complaint Chief Complaint history of lung cancer and tracheostomy with recurrent infection. 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 The patient came in with shortness of breath, low-grade fever, leukocytosis. no chest pain at this time but primarily has cough with fever and an x-ray c/w pneumonia. has laryngeal cancer, history of dysphagia, PEG tube in place, tracheostomy in place. 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 History of Present Illness History of Present Illness Assessment/Plan Assessment/Plan IMPRESSION 1. [id number] hypoxic respiratory failure secondary // suspected recurrent pneumonia. possible aspiration 2. Fever with abnormal chest x-ray with bilateral infiltrates, likely related to pneumonia. //history of multidrug resistant Pseudomonas aeruginosa pneumonia and methicillin resistant Staphylococcus aureus pneumonia. 3. chronic obstructive pulmonary disease with compensated respiratory acidosis and chronic hypoxic respiratory failure. 4. Leukocytosis // secondary to the infectious process 5. dementia 6. laryngeal cancer, 7.history of dysphagia, PEG tube in place, 8. tracheostomy in place 9. ASPIRATION PNEUMONIA 10. EPISTAXIS PLAN PULM CONSULT Emperic iv antibiotics, d/c zosyn, vanc zerbaxa for now f/u trach cult ID CONSULT Supportive care. Overall, long-term prognosis is poor per my chart review//. Discussed family// patient dvt prophylaxis trach secretion for C and S. NOTED 42 min pt exam, chart review > 50% of time with exam, chart review, pt care coordination Vitals Vitals Vital Signs Date Time Temp Pulse Resp B/P (MAP) Pulse Ox O2 Delivery O2 Flow Rate FiO2 12/07/18 10:12 Trach Collar 10.0 12/07/18 10:11 99 12/07/18 09:24 110 160/74 12/07/18 07:18 16 12/07/18 07:00 98.9 98.9 Physical Exam Physical Exam GENERAL: Propped up in bed, resting quietly NECK: Trach LUNGS: Less congested, nonlabored HEART: S1 and S2 ABDOMEN: Soft and nontender. EXTREMITIES: No edema or cyanosis. 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 Port - clean General: Alert, Cooperative, mild distress Heart: Regular rate, Normal S1 Lungs: Crackles (bases) Abdomen: Soft, No tenderness, Other (VERY THIN) Extremities: No clubbing, No cyanosis, No tenderness/swelling Labs LABS Laboratory Tests Test 12/07/18 08:25 White Blood Count 13.4 x10^3/uL (4.0-11.0) Red Blood Count 4.36 x10^6/uL (3.50-5.40) Hemoglobin 9.6 g/dL (12.0-15.5) Hematocrit 32.3 % (36.0-47.0) Mean Corpuscular Volume 74 fL (79-100) Mean Corpuscular Hemoglobin 22 pg (25-35) Mean Corpuscular Hemoglobin Concent 30 g/dL (31-37) Red Cell Distribution Width 18.3 % (11.5-14.5) Platelet Count 402 x10^3/uL (140-400) Neutrophils (%) (Auto) 80 % (31-73) Lymphocytes (%) (Auto) 13 % (24-48) Monocytes (%) (Auto) 6 % (0-9) Eosinophils (%) (Auto) 1 % (0-3) Basophils (%) (Auto) 0 % (0-3) Neutrophils # (Auto) 10.8 x10^3uL (1.8-7.7) Lymphocytes # (Auto) 1.7 x10^3/uL (1.0-4.8) Monocytes # (Auto) 0.8 x10^3/uL (0.0-1.1) Eosinophils # (Auto) 0.1 x10^3/uL (0.0-0.7) Basophils # (Auto) 0.1 x10^3/uL (0.0-0.2) Prothrombin Time 14.8 SEC (11.7-14.0) Prothromb Time International Ratio 1.2 (0.8-1.1) Sodium Level 135 mmol/L (136-145) Potassium Level 3.6 mmol/L (3.5-5.1) Chloride Level 97 mmol/L (98-107) Carbon Dioxide Level 33 mmol/L (21-32) Anion Gap 5 (6-14) Blood Urea Nitrogen 8 mg/dL (7-20) Creatinine 0.8 mg/dL (0.6-1.0) Estimated GFR (Cockcroft-Gault) 84.2 Glucose Level 94 mg/dL (70-99) Calcium Level 8.9 mg/dL (8.5-10.1) Assessment and Plan Assessmemt and Plan Problems Medical Problems: (1) Healthcare-associated pneumonia Status: Acute Comment Review of Relevant I have reviewed the following items miko (where applicable) has been applied. Labs Laboratory Tests Test 12/07/18 08:25 White Blood Count 13.4 x10^3/uL (4.0-11.0) Red Blood Count 4.36 x10^6/uL (3.50-5.40) Hemoglobin 9.6 g/dL (12.0-15.5) Hematocrit 32.3 % (36.0-47.0) Mean Corpuscular Volume 74 fL (79-100) Mean Corpuscular Hemoglobin 22 pg (25-35) Mean Corpuscular Hemoglobin Concent 30 g/dL (31-37) Red Cell Distribution Width 18.3 % (11.5-14.5) Platelet Count 402 x10^3/uL (140-400) Neutrophils (%) (Auto) 80 % (31-73) Lymphocytes (%) (Auto) 13 % (24-48) Monocytes (%) (Auto) 6 % (0-9) Eosinophils (%) (Auto) 1 % (0-3) Basophils (%) (Auto) 0 % (0-3) Neutrophils # (Auto) 10.8 x10^3uL (1.8-7.7) Lymphocytes # (Auto) 1.7 x10^3/uL (1.0-4.8) Monocytes # (Auto) 0.8 x10^3/uL (0.0-1.1) Eosinophils # (Auto) 0.1 x10^3/uL (0.0-0.7) Basophils # (Auto) 0.1 x10^3/uL (0.0-0.2) Prothrombin Time 14.8 SEC (11.7-14.0) Prothromb Time International Ratio 1.2 (0.8-1.1) Sodium Level 135 mmol/L (136-145) Potassium Level 3.6 mmol/L (3.5-5.1) Chloride Level 97 mmol/L (98-107) Carbon Dioxide Level 33 mmol/L (21-32) Anion Gap 5 (6-14) Blood Urea Nitrogen 8 mg/dL (7-20) Creatinine 0.8 mg/dL (0.6-1.0) Estimated GFR (Cockcroft-Gault) 84.2 Glucose Level 94 mg/dL (70-99) Calcium Level 8.9 mg/dL (8.5-10.1) Laboratory Tests Test 12/07/18 08:25 White Blood Count 13.4 x10^3/uL (4.0-11.0) Red Blood Count 4.36 x10^6/uL (3.50-5.40) Hemoglobin 9.6 g/dL (12.0-15.5) Hematocrit 32.3 % (36.0-47.0) Mean Corpuscular Volume 74 fL (79-100) Mean Corpuscular Hemoglobin 22 pg (25-35) Mean Corpuscular Hemoglobin Concent 30 g/dL (31-37) Red Cell Distribution Width 18.3 % (11.5-14.5) Platelet Count 402 x10^3/uL (140-400) Neutrophils (%) (Auto) 80 % (31-73) Lymphocytes (%) (Auto) 13 % (24-48) Monocytes (%) (Auto) 6 % (0-9) Eosinophils (%) (Auto) 1 % (0-3) Basophils (%) (Auto) 0 % (0-3) Neutrophils # (Auto) 10.8 x10^3uL (1.8-7.7) Lymphocytes # (Auto) 1.7 x10^3/uL (1.0-4.8) Monocytes # (Auto) 0.8 x10^3/uL (0.0-1.1) Eosinophils # (Auto) 0.1 x10^3/uL (0.0-0.7) Basophils # (Auto) 0.1 x10^3/uL (0.0-0.2) Prothrombin Time 14.8 SEC (11.7-14.0) Prothromb Time International Ratio 1.2 (0.8-1.1) Sodium Level 135 mmol/L (136-145) Potassium Level 3.6 mmol/L (3.5-5.1) Chloride Level 97 mmol/L (98-107) Carbon Dioxide Level 33 mmol/L (21-32) Anion Gap 5 (6-14) Blood Urea Nitrogen 8 mg/dL (7-20) Creatinine 0.8 mg/dL (0.6-1.0) Estimated GFR (Cockcroft-Gault) 84.2 Glucose Level 94 mg/dL (70-99) Calcium Level 8.9 mg/dL (8.5-10.1) Microbiology 12/02/18 Blood Culture - Preliminary, Resulted NO GROWTH AFTER 4 DAYS 12/02/18 - Final, Resulted 12/02/18 - Final, Resulted 12/02/18 - Final, Resulted 12/02/18 - Final, Resulted 12/02/18 Gram Stain Evaluation - Final, Resulted 12/02/18 Sputum Culture - Preliminary, Resulted 12/02/18 Sputum Result 1 - Final, Resulted Medications Current Medications Albuterol/ Ipratropium (Duoneb) 3 ml STK-MED ONCE .ROUTE ; Start 12/02/18 at 15: 16; Stop 12/02/18 at 15:17; Status DC Ondansetron HCl (Zofran) 4 mg PRN Q8HRS PRN IV NAUSEA/VOMITING; Start 12/02/18 at 16:45; Stop 12/03/18 at 16:44; Status DC Morphine Sulfate (Morphine Sulfate) 2 mg PRN Q2HR PRN IV PAIN Last administered on 12/03/18at 14:16; Start 12/02/18 at 16:45; Stop 12/03/18 at 16:44 ; Status DC Sodium Chloride 1,000 ml @ 100 mls/hr Q10H IV Last administered on 12/02/18at 19:41; Start 12/02/18 at 16:39; Stop 12/02/18 at 20:38; Status DC Vancomycin HCl (Vanco Per Pharmacy) 1 each PRN DAILY PRN MC SEE COMMENTS Last administered on 12/04/18at 09:04; Start 12/02/18 at 16:45; Stop 12/05/18 at 14:04 ; Status DC Piperacillin Sod/ Tazobactam Sod (Zosyn Per Pharmacy) 1 each PRN DAILY PRN MC SEE COMMENTS; Start 12/02/18 at 16:45; Stop 12/05/18 at 14:03; Status DC Vancomycin HCl 1.25 gm/Sodium Chloride 250 ml @ 167 mls/hr ONCE ONCE IV Last administered on 12/02/18at 19:39; Start 12/02/18 at 17:00; Stop 12/02/18 at 18:29 ; Status DC Piperacillin Sod/ Tazobactam Sod 4.5 gm/Sodium Chloride 100 ml @ 200 mls/hr ONCE ONCE IV Last administered on 12/02/18at 17:02; Start 12/02/18 at 17:00; Stop 12/02/18 at 17:29; Status DC Piperacillin Sod/ Tazobactam Sod 3.375 gm/Sodium Chloride 50 ml @ 100 mls/hr Q6HRS IV Last administered on 12/05/18at 12:08; Start 12/03/18 at 00:00; Stop at 14:03; Status DC Vancomycin HCl 1 gm/Sodium Chloride 250 ml @ 250 mls/hr Q18H IV Last administered on 12/04/18at 09:25; Start 12/03/18 at 14:00; Stop 12/04/18 at 12:00 ; Status DC Vancomycin HCl (Vancomycin Trough Level) 1 each 1X ONCE MC ; Start 12/04/18 at 07:30; Stop 12/04/18 at 07:31; Status DC Sodium Chloride 750 ml @ 375 mls/hr 1X ONCE IV Last administered on at 19:31; Start 12/02/18 at 19:00; Stop 12/02/18 at 20:59; Status DC Amlodipine Besylate (Norvasc) 5 mg DAILY PO Last administered on 12/03/18at 09: 25; Start 12/03/18 at 09:00; Stop 12/03/18 at 09:54; Status DC Fentanyl (Duragesic 50mcg/ Hr Patch) 1 patch Q3DAYS TD Last administered on at 08:39; Start 12/05/18 at 09:00 Gabapentin (Neurontin) 300 mg PRN BID PRN PO NEUROPATHIC PAIN; Start 12/02/18 at 23:30; Stop 12/05/18 at 06:04; Status DC Lactobacillus Rhamnosus (Culturelle) 1 cap BID PO Last administered on at 09:24; Start 12/03/18 at 09:00; Stop 12/03/18 at 09:52; Status DC Metoclopramide HCl (Reglan) 5 mg QIDACHS PO Last administered on 12/03/18at 09: 24; Start 12/03/18 at 07:30; Stop 12/03/18 at 09:54; Status DC Ondansetron HCl (Zofran Odt) 4 mg PRN QID PRN PEG NAUSEA/VOMITING Last administered on 12/06/18 21:20; Start 12/02/18 at 23:30 Oxycodone/ Acetaminophen (Percocet 7.5/ 325) 1 tab PRN QID PRN PO PAIN Last administered on 12/03/18 09:26; Start 12/02/18 at 23:30; Stop 12/03/18 at 09:54 ; Status DC Pantoprazole Sodium (Protonix) 40 mg BIDBFRMEAL PO Last administered on 09:24; Start 12/03/18 at 07:30; Stop 12/03/18 at 09:53; Status DC Non-Formulary Medication (Albuterol Sulfate (Albuterol Sulfate Neb Soln)) 1 vial QID NEB ; Start 12/03/18 at 09:00; Status UNV Cyproheptadine HCl (Periactin) 4 mg TID PEG Last administered on 12/07/18 09: 24; Start 12/03/18 at 09:00 Donepezil HCl (Aricept) 5 mg BID PEG Last administered on 12/07/18 09:24; Start 12/03/18 at 09:00 Albuterol Sulfate (Ventolin Neb Soln) 2.5 mg RTQID NEB Last administered on 07:54; Start 12/03/18 at 08:00 Lansoprazole (Prevacid) 30 mg BIDBFRMEAL PEG Last administered on 12/07/18 07: 20; Start 12/03/18 at 16:30 Amlodipine Besylate (Norvasc) 5 mg DAILY PEG Last administered on 12/07/18 09: 24; Start 12/03/18 at 09:54 Metoclopramide HCl (Reglan) 5 mg QIDACHS PEG Last administered on 12/07/18 07: 20; Start 12/03/18 at 09:54 Oxycodone/ Acetaminophen (Percocet 7.5/ 325) 1 tab PRN QID PRN PEG PAIN Last administered on 12/06/18 19:02; Start 12/03/18 at 09:54; Stop 12/06/18 at 22:28 ; Status DC Hydralazine HCl (Apresoline Inj) 10 mg PRN Q4HRS PRN IVP ELEVATED BP, SEE COMMENTS Last administered on 12/07/18at 03:48; Start 12/03/18 at 16:15 Vancomycin HCl 1 gm/Sodium Chloride 250 ml @ 250 mls/hr Q12H IV Last administered on 12/05/18at 08:39; Start 12/04/18 at 21:00; Stop 12/05/18 at 14:03 ; Status DC Vancomycin HCl (Vancomycin Trough Level) 1 each 1X ONCE MC ; Start 12/05/18 at 20:30; Stop 12/05/18 at 20:30; Status DC Gabapentin (Neurontin Oral Soln) 250 mg PRN BID PRN PEG NEUROPATHIC PAIN Last administered on 12/05/18at 01:15; Start 12/05/18 at 01:00 Ceftolozane/ Tazobactam 750 mg/ Sodium Chloride 100 ml @ 100 mls/hr Q8HRS IV Last administered on 12/05/18at 15:37; Start 12/05/18 at 14:30; Stop 12/05/18 at 16:42; Status DC Piperacillin Sod/ Tazobactam Sod 3.375 gm/Sodium Chloride 50 ml @ 100 mls/hr Q6HRS IV Last administered on 12/07/18at 05:37; Start 12/05/18 at 18:00; Stop at 09:27; Status DC Oxycodone/ Acetaminophen (Percocet 7.5/ 325) 1 tab PRN Q4HRS PRN PO MODERATE TO SEVERE PAIN Last administered on 12/07/18at 07:18; Start 12/06/18 at 19:00 Acetaminophen (Tylenol) 650 mg PRN Q6HRS PRN PEG MILD PAIN / TEMP Last administered on 12/07/18at 00:06; Start 12/06/18 at 22:45 Ibuprofen (Children'S Motrin) 400 mg PRN Q6HRS PRN PO INFLAMMATION; Start 12/06 at 22:45 Ceftolozane/ Tazobactam 750 mg/ Sodium Chloride 100 ml @ 100 mls/hr Q8HRS IV ; Start 12/07/18 at 10:30 Active Scripts Active Culturelle (Lactobacillus Rhamnosus Gg) 1 Each Cap.sprink 1 Cap PO BID 30 Days Reported Albuterol Sulfate Neb Soln (Albuterol Sulfate) 0.63 Mg/3 Ml Vial.neb 1 Vial NEB QID Gabapentin (Gabapentin) 300 Mg Capsule 300 Mg PO BID PRN Amlodipine Besylate 5 Mg Tablet 5 Mg PO DAILY Pantoprazole Sodium 40 Mg Tablet.dr 40 Mg PEG BID Donepezil Hcl 5 Mg Tablet 5 Mg PEG BID Reglan (Metoclopramide Hcl) 10 Mg Tablet 5 Mg PO QIDACHS Cyproheptadine Hcl 2 Mg/5 Ml Syrup 10 Ml PEG TID Percocet 7.5-325 Mg Tablet (Oxycodone/Acetaminophen) 1 Each Tablet 1 Tab PO QID PRN FENTANYL 50mcg/hr (Fentanyl) 1 Each Patch.td72 1 Patch TP Q3DAYS Ondansetron Odt (Ondansetron) 4 Mg Tab.rapdis 4 Mg PEG QIDPRN PRN Vitals/I & O Vital Sign - Last 24 Hours 12/06/18 12/06/18 12/06/18 12/06/18 11:00 12:01 13:59 15:00 Temp 97.4 98.0 97.4 98.0 Pulse 87 106 Resp 18 20 B/P (MAP) 151/72 (98) 132/81 (98) Pulse Ox 90 100 100 70 O2 Delivery Tracheal Collar Tracheal Collar Tracheal Collar O2 Flow Rate 10.0 8.0 8.0 12/06/18 12/06/18 12/06/18 12/06/18 15:00 19:02 19:36 19:50 Temp 97.9 97.9 Pulse 102 Resp 14 20 B/P (MAP) 169/81 (110) Pulse Ox 70 93 O2 Delivery Tracheal Collar Tracheal Collar Tracheal Collar Tracheal Collar O2 Flow Rate 8.0 10.0 8.0 10.0 12/06/18 12/06/18 12/06/18 12/06/18 20:00 20:05 23:00 23:22 Temp 99.6 99.6 Pulse 107 125 Resp 14 22 B/P (MAP) 198/91 (126) 198/91 Pulse Ox 90 89 O2 Delivery Trach Collar Tracheal Collar Tracheal Collar O2 Flow Rate 10.0 10.0 10.0 3/12/06/18 12/07/18 12/07/18 23:23 23:30 03:16 03:35 Temp 99.2 99.2 Pulse 102 102 Resp 18 16 22 B/P (MAP) 158/71 (100) 217/91 (133) Pulse Ox 90 90 99 O2 Delivery Tracheal Collar Tracheal Collar O2 Flow Rate 10.0 10.0 10.0 12/07/18 12/07/18 12/07/18 12/07/18 03:48 04:17 04:18 07:00 Temp 98.9 98.9 Pulse 92 105 110 Resp 18 22 B/P (MAP) 198/91 132/60 (84) 160/74 (102) Pulse Ox 96 O2 Delivery Tracheal Collar O2 Flow Rate 10.0 12/07/18 12/07/18 12/07/18 12/07/18 07:18 08:00 09:24 10:11 Pulse 110 Resp 16 B/P (MAP) 160/74 Pulse Ox 99 99 O2 Delivery Tracheal Collar Trach Collar Tracheal Collar O2 Flow Rate 10.0 10.0 10.0 12/07/18 10:12 O2 Delivery Trach Collar O2 Flow Rate 10.0 Intake and Output 12/06/18 12/06/18 12/07/18 14:59 22:59 06:59 Intake Total 924 ml 250 ml 1040 ml Output Total 300 ml 1725 ml 600 ml Balance 624 ml -1475 ml 440 ml Nutrition Consultation Dietary Evaluation: Recommendations by RD: Increase Calorie Intake Comments: Continue TF per current order: Jevity 1.5 bolus QID, 237 ml (1 can)/bolus, w/200 ml water flushes w/each bolus Expected Outcomes/Goals: TF infusion to meet >75% est needs Malnutrition Findings: Body Fat Depletion (Non Severe: Mod to Severe Weight Status: Underweight CUONG SHIRLEY MD Dec 07, 2018 10:54
[2018-12-07] MEDS: TAZOBACTAM IV SCH ×2 (11:31→21:46)
[2018-12-07] MEDS: CEFTOLOZANE IV SCH ×2 (11:31→21:46)
[2018-12-07] MEDS: NORMAL SALINE IV SCH ×2 (11:31→21:46)
[2018-12-07] MEDS: ONDANSETRON PF 4 MG/2 ML VIAL. IV PRN ×2 (15:55→23:07)
[2018-12-08] VITALS (12 sets, daily range): BP systolic 144–188; BP diastolic 66–91
[2018-12-08] MEDS: oxyCODONE/APAP 7.5/325 1 TAB TABLET PO PRN ×5 (00:48→21:56)
[2018-12-08] MEDS: TAZOBACTAM IV SCH ×3 (05:55→21:56)
[2018-12-08] MEDS: NORMAL SALINE IV SCH ×3 (05:55→21:56)
[2018-12-08] MEDS: CEFTOLOZANE IV SCH ×3 (05:55→21:56)
[2018-12-08] MEDS: METOCLOPRAMIDE 10 MG TABLET. PEG SCH ×4 (07:30→21:56)
[2018-12-08] MEDS: LANSOPRAZOLE 30 MG TAB.RAP.DR PEG SCH ×2 (07:30→16:30)
[2018-12-08] MEDS: ALBUTEROL SULFATE 2.5 MG/3 ML NEBU. NEB SCH ×5 (07:43→20:28)
--- NOTE | 2018-12-08 08:02 | RAD ---
Portable chest, 12/07/2018: HISTORY: Respiratory distress, epigastric pain Comparison is made to yesterday's study. A right Port-A-Cath extends to the level the atrial caval junction. A tracheostomy tube is in satisfactory position. The heart size is unchanged. There are ongoing patchy bilateral pulmonary infiltrates including retrocardiac left basilar infiltrate partially obscuring the hemidiaphragm. These findings are unchanged. There is no definite pleural fluid or pneumothorax. No new abnormality is detected. IMPRESSION: No significant change since yesterday's study. Electronically signed by: Jarret Gallegos MD (12/08/2018 7:59 AM) [facility]
--- NOTE | 2018-12-08 08:06 | RAD ---
Portable abdomen, 12/07/2018: HISTORY: Abdominal pain A tube overlying the left upper quadrant is compatible with a gastrostomy tube. Gas is present in large and small bowel in a nonspecific pattern. Coarse pelvic calcifications are compatible with uterine fibroids. There are surgical clips project over the GE junction region. There is no evidence organomegaly. IMPRESSION: No acute abdominal abnormality is detected. Electronically signed by: Jarret Gallegos MD (12/08/2018 8:01 AM) [facility]
[2018-12-08] MEDS: amLODIPine BESYLATE 5 MG TABLET PEG SCH (09:00)
[2018-12-08] MEDS: DONEPEZIL HCL 5 MG TABLET. PEG SCH ×2 (09:00→21:56)
[2018-12-08] MEDS: CYPROHEPTADINE 4 MG TABLET. PEG SCH ×3 (09:00→21:56)
[2018-12-08 09:10] LABS: BASO % 0 % (0-3); EOS # 0.1 x10^3/uL (0.0-0.7); EOS % 0 % (0-3); HEMATOCRIT 32.1 % (36.0-47.0); HEMOGLOBIN 9.4 g/dL (12.0-15.5); LYMPH # 1.7 x10^3/uL (1.0-4.8); LYMPH % 11 % (24-48); MEAN CORPUSCULAR HEMOGLOBIN 22 pg (25-35); MEAN CORPUSCULAR HGB CONC 29 g/dL (31-37); MEAN CORPUSCULAR VOLUME 74 fL (79-100); MONO # 0.7 x10^3/uL (0.0-1.1); MONO % 5 % (0-9); NEUT # 12.2 x10^3uL (1.8-7.7); NEUT % 83 % (31-73); PLATELET COUNT 379 x10^3/uL (140-400); RED BLOOD COUNT 4.32 x10^6/uL (3.50-5.40); RED CELL DISTRIBUTION WIDTH 18.3 % (11.5-14.5); WHITE BLOOD COUNT 14.6 x10^3/uL (4.0-11.0)
--- NOTE | 2018-12-08 09:15 | PDOC ---
Infectious Disease Note Subjective: Subjective pt says is hungry cont to desaturate, awaiting bronch later today no f/c/n/v/d sepsis alert per RN this am ROS: ROS Negative except for above. Vital Signs: Vital Signs Vital Signs Date Time Temp Pulse Resp B/P (MAP) Pulse Ox O2 Delivery O2 Flow Rate FiO2 12/08/18 07:47 Tracheal Collar 8.0 12/08/18 07:00 97.9 104 18 144/71 (95) 93 97.9 Physical Exam: PHYSICAL EXAM GENERAL: sitting in chair resting quietly NECK: Trach + LUNGS:coarse bs, nonlabored HEART: S1 and S2 ABDOMEN: Soft and nontender. EXTREMITIES: No edema or cyanosis. 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: Arouses to name, responds appropriately Port - clean Medications: Inpatient Meds: Current Medications Medications (Trade) Dose Ordered Sig/Yuliana Start Time Stop Time Status Last Admin Dose Admin Acetaminophen (Tylenol) 650 mg PRN Q6HRS PRN 12/06/18 22:45 12/07/18 00:06 650 MG Albuterol Sulfate (Ventolin Neb Soln) 2.5 mg RTQID 12/03/18 08:00 12/08/18 07:43 2.5 MG Albuterol/ Ipratropium (Duoneb) 3 ml STK-MED ONCE 12/02/18 15:16 12/02/18 15:17 DC Amlodipine Besylate (Norvasc) 5 mg DAILY 12/03/18 09:54 12/07/18 09:24 5 MG Ceftolozane/ Tazobactam 750 mg/ Sodium Chloride 100 ml @ 100 mls/hr Q8HRS 12/07/18 10:30 12/08/18 05:55 100 MLS/HR Cyproheptadine HCl (Periactin) 4 mg TID 12/03/18 09:00 12/07/18 20:29 4 MG Donepezil HCl (Aricept) 5 mg BID 12/03/18 09:00 12/07/18 20:46 5 MG Fentanyl (Duragesic 50mcg/ Hr Patch) 1 patch Q3DAYS 12/05/18 09:00 12/05/18 08:39 1 PATCH Gabapentin (Neurontin Oral Soln) 250 mg PRN BID PRN 12/05/18 01:00 12/05/18 01:15 250 MG Gabapentin (Neurontin) 300 mg PRN BID PRN 12/02/18 23:30 12/05/18 06:04 DC Hydralazine HCl (Apresoline Inj) 10 mg PRN Q4HRS PRN 12/03/18 16:15 12/07/18 03:48 10 MG Ibuprofen (Children'S Motrin) 400 mg PRN Q6HRS PRN 12/06/18 22:45 12/07/18 14:25 400 MG Lactobacillus Rhamnosus (Culturelle) 1 cap BID 12/03/18 09:00 12/03/18 09:52 DC 12/03/18 09:24 1 CAP Lansoprazole (Prevacid) 30 mg BIDBFRMEAL 12/03/18 16:30 12/07/18 07:20 30 MG Metoclopramide HCl (Reglan) 5 mg QIDACHS 12/03/18 09:54 12/07/18 20:46 5 MG Morphine Sulfate (Morphine Sulfate) 2 mg PRN Q2HR PRN 12/02/18 16:45 12/03/18 16:44 DC 12/03/18 14:16 2 MG Non-Formulary Medication (Albuterol Sulfate (Albuterol Sulfate Neb Soln)) 1 vial QID 12/03/18 09:00 UNV Ondansetron HCl (Zofran Odt) 4 mg PRN QID PRN 12/02/18 23:30 12/06/18 21:20 4 MG Ondansetron HCl (Zofran) 4 mg PRN Q4HRS PRN 12/07/18 15:30 12/07/18 23:07 4 MG Oxycodone/ Acetaminophen (Percocet 7.5/ 325) 1 tab PRN Q4HRS PRN 12/06/18 19:00 12/08/18 06:33 1 TAB Pantoprazole Sodium (Protonix) 40 mg BIDBFRMEAL 12/03/18 07:30 12/03/18 09:53 DC 12/03/18 09:24 40 MG Piperacillin Sod/ Tazobactam Sod (Zosyn Per Pharmacy) 1 each PRN DAILY PRN 12/02/18 16:45 12/05/18 14:03 DC Piperacillin Sod/ Tazobactam Sod 3.375 gm/Sodium Chloride 50 ml @ 100 mls/hr Q6HRS 12/05/18 18:00 12/07/18 09:27 DC 12/07/18 05:37 100 MLS/HR Piperacillin Sod/ Tazobactam Sod 4.5 gm/Sodium Chloride 100 ml @ 200 mls/hr ONCE ONCE 12/02/18 17:00 12/02/18 17:29 DC 12/02/18 17:02 200 MLS/HR Sodium Chloride 750 ml @ 375 mls/hr 1X ONCE 12/02/18 19:00 12/02/18 20:59 DC 12/02/18 19:31 375 MLS/HR Vancomycin HCl (Vanco Per Pharmacy) 1 each PRN DAILY PRN 12/02/18 16:45 12/05/18 14:04 DC 12/04/18 09:04 1 EACH Vancomycin HCl (Vancomycin Trough Level) 1 each 1X ONCE 12/05/18 20:30 12/05/18 20:30 DC Vancomycin HCl 1.25 gm/Sodium Chloride 250 ml @ 167 mls/hr ONCE ONCE 12/02/18 17:00 12/02/18 18:29 DC 12/02/18 19:39 167 MLS/HR Vancomycin HCl 1 gm/Sodium Chloride 250 ml @ 250 mls/hr Q12H 12/04/18 21:00 12/05/18 14:03 DC 12/05/18 08:39 250 MLS/HR Labs: Lab Laboratory Tests Test 12/08/18 08:05 White Blood Count 14.6 x10^3/uL (4.0-11.0) Red Blood Count 4.32 x10^6/uL (3.50-5.40) Hemoglobin 9.4 g/dL (12.0-15.5) Hematocrit 32.1 % (36.0-47.0) Mean Corpuscular Volume 74 fL (79-100) Mean Corpuscular Hemoglobin 22 pg (25-35) Mean Corpuscular Hemoglobin Concent 29 g/dL (31-37) Red Cell Distribution Width 18.3 % (11.5-14.5) Platelet Count 379 x10^3/uL (140-400) Neutrophils (%) (Auto) 83 % (31-73) Lymphocytes (%) (Auto) 11 % (24-48) Monocytes (%) (Auto) 5 % (0-9) Eosinophils (%) (Auto) 0 % (0-3) Basophils (%) (Auto) 0 % (0-3) Neutrophils # (Auto) 12.2 x10^3uL (1.8-7.7) Lymphocytes # (Auto) 1.7 x10^3/uL (1.0-4.8) Monocytes # (Auto) 0.7 x10^3/uL (0.0-1.1) Eosinophils # (Auto) 0.1 x10^3/uL (0.0-0.7) Basophils # (Auto) 0.0 x10^3/uL (0.0-0.2) Micro RUN DATE: 12/07/18 PAGE 1 RUN TIME: 1027 [facility] [address] [place] [address] Jorge Tierney M.D., Hose Seamer PATIENT: BERNARDO DE LEON ACCT: [id number] LOC: [address] [place] [address] U : [id number] AGE/SX: 78/F ROOM: [facility] REG : 12/02/[address]: CUONG SHIRLEY MD : 1940 BED: 1 DIS : STATUS: ADM IN TLOC: SPEC #: [id number] DAVID: 12/02/18-1546 STATUS: RES REQ #: [id number] RECD: 12/02/[address] [facility] [address]: ORION PAZ APRN SOURCE: SPUTUM ENTR: 12/02/18 [facility] DR: NIMCO MICHAEL MD [facility]: INDUCED CATHERINE MOSCOSO MD ORDERED: SPUTUM CULTURE Procedure Result GRAM STAIN WHITE BLOOD CELLS Final Many GRAM STAIN EPITHELIAL CELLS Final Moderate GRAM STAIN RESULT 1 Final Comment Many gram positive cocci. GRAM STAIN RESULT 2 Final Comment Many gram negative rods. GRAM STAIN EVALUATION Final Comment This specimen is of good quality and is acceptable for routine bacterial culture. Performed at: [address] [id number] Laboratory Animal Care Veterinarian: YANG Lawrence MD, Phone: [phone] SPUTUM CULTURE- Preliminary Preliminary report SPUTUM CULT RES 1 Final Comment Pseudomonas aeruginosa 3+ Performed at: [address] [id number] Laboratory Animal Care Veterinarian: YANG Lawrence MD, Phone: [phone] * This is a corrected result. * CONTINUED ON NEXT PAGE RUN DATE: 12/07/18 PAGE 2 RUN TIME: 1027 [facility] [address] [place] [address] Jorge Tierney M.D., Hose Seamer SPEC: [id number] PATIENT: BERNARDO DE LEON [id number] ( Continued) Procedure Result SPUTUM CULT RES 1 Final (continued) A prior result that was reported as final has been changed. Objective: Assessment: Hypoxic respiratory failure. Respiratory infection, PSAE could be likely colonization but has waxing and waning of status, ? mucus plug History of lung cancer. Tracheostomy. History of laryngeal cancer. Leukocytosis, upward trend Plan: Plan of Care Per team they want to discharge pt today PSAE MICs still pending can send on empiric zerbaxa for 10 days trach c/s sent by pulm is pending still at this time Bronch pending for this pm D/W Primary team about above Prognosis poor D/W RN,SW script given as discharge is planned per primary team F/U with us if needed ELIE MATOS MD Dec 08, 2018 09:14
--- NOTE | 2018-12-08 09:24 | PDOC ---
PULMONARY PROGRESS NOTES Subjective PT NOT MORE SOA NOT MUCH IN COUGHING UP BLOOD Vitals Vital Signs Date Time Temp Pulse Resp B/P (MAP) Pulse Ox O2 Delivery O2 Flow Rate FiO2 12/08/18 07:47 Tracheal Collar 8.0 12/08/18 07:00 97.9 104 18 144/71 (95) 93 97.9 ROS: No Nausea, No Chest Pain, No Abdominal Pain, No Increase Cough General: Alert, No acute distress Lungs: Crackles (bases) Cardiovascular: S1, S2 Abdomen: Soft, Non-tender Extremities: No Edema Skin: Warm Labs Laboratory Tests Test 12/07/18 08:25 12/08/18 08:05 White Blood Count 13.4 x10^3/uL (4.0-11.0) 14.6 x10^3/uL (4.0-11.0) Red Blood Count 4.36 x10^6/uL (3.50-5.40) 4.32 x10^6/uL (3.50-5.40) Hemoglobin 9.6 g/dL (12.0-15.5) 9.4 g/dL (12.0-15.5) Hematocrit 32.3 % (36.0-47.0) 32.1 % (36.0-47.0) Mean Corpuscular Volume 74 fL (79-100) 74 fL (79-100) Mean Corpuscular Hemoglobin 22 pg (25-35) 22 pg (25-35) Mean Corpuscular Hemoglobin Concent 30 g/dL (31-37) 29 g/dL (31-37) Red Cell Distribution Width 18.3 % (11.5-14.5) 18.3 % (11.5-14.5) Platelet Count 402 x10^3/uL (140-400) 379 x10^3/uL (140-400) Neutrophils (%) (Auto) 80 % (31-73) 83 % (31-73) Lymphocytes (%) (Auto) 13 % (24-48) 11 % (24-48) Monocytes (%) (Auto) 6 % (0-9) 5 % (0-9) Eosinophils (%) (Auto) 1 % (0-3) 0 % (0-3) Basophils (%) (Auto) 0 % (0-3) 0 % (0-3) Neutrophils # (Auto) 10.8 x10^3uL (1.8-7.7) 12.2 x10^3uL (1.8-7.7) Lymphocytes # (Auto) 1.7 x10^3/uL (1.0-4.8) 1.7 x10^3/uL (1.0-4.8) Monocytes # (Auto) 0.8 x10^3/uL (0.0-1.1) 0.7 x10^3/uL (0.0-1.1) Eosinophils # (Auto) 0.1 x10^3/uL (0.0-0.7) 0.1 x10^3/uL (0.0-0.7) Basophils # (Auto) 0.1 x10^3/uL (0.0-0.2) 0.0 x10^3/uL (0.0-0.2) Prothrombin Time 14.8 SEC (11.7-14.0) Prothromb Time International Ratio 1.2 (0.8-1.1) Sodium Level 135 mmol/L (136-145) Potassium Level 3.6 mmol/L (3.5-5.1) Chloride Level 97 mmol/L (98-107) Carbon Dioxide Level 33 mmol/L (21-32) Anion Gap 5 (6-14) Blood Urea Nitrogen 8 mg/dL (7-20) Creatinine 0.8 mg/dL (0.6-1.0) Estimated GFR (Cockcroft-Gault) 84.2 Glucose Level 94 mg/dL (70-99) Calcium Level 8.9 mg/dL (8.5-10.1) Laboratory Tests Test 12/08/18 08:05 White Blood Count 14.6 x10^3/uL (4.0-11.0) Red Blood Count 4.32 x10^6/uL (3.50-5.40) Hemoglobin 9.4 g/dL (12.0-15.5) Hematocrit 32.1 % (36.0-47.0) Mean Corpuscular Volume 74 fL (79-100) Mean Corpuscular Hemoglobin 22 pg (25-35) Mean Corpuscular Hemoglobin Concent 29 g/dL (31-37) Red Cell Distribution Width 18.3 % (11.5-14.5) Platelet Count 379 x10^3/uL (140-400) Neutrophils (%) (Auto) 83 % (31-73) Lymphocytes (%) (Auto) 11 % (24-48) Monocytes (%) (Auto) 5 % (0-9) Eosinophils (%) (Auto) 0 % (0-3) Basophils (%) (Auto) 0 % (0-3) Neutrophils # (Auto) 12.2 x10^3uL (1.8-7.7) Lymphocytes # (Auto) 1.7 x10^3/uL (1.0-4.8) Monocytes # (Auto) 0.7 x10^3/uL (0.0-1.1) Eosinophils # (Auto) 0.1 x10^3/uL (0.0-0.7) Basophils # (Auto) 0.0 x10^3/uL (0.0-0.2) Medications Active Scripts Medications Dose Route/Sig Max Daily Dose Days Date Category Albuterol Sulfate Neb Soln (Albuterol Sulfate) 0.63 Mg/3 Ml Vial.neb 1 Vial NEB QID 12/02/18 Reported Gabapentin (Gabapentin) 300 Mg Capsule 300 Mg PO BID PRN 10/19/18 Reported Amlodipine Besylate 5 Mg Tablet 5 Mg PO DAILY 10/19/18 Reported Culturelle (Lactobacillus Rhamnosus Gg) 1 Each Cap.sprink 1 Cap PO BID 30 07/07/17 Rx Pantoprazole Sodium 40 Mg Tablet.dr 40 Mg PEG BID 03/11/17 Reported Donepezil Hcl 5 Mg Tablet 5 Mg PEG BID 03/11/17 Reported Reglan (Metoclopramide Hcl) 10 Mg Tablet 5 Mg PO QIDACHS 03/11/17 Reported Cyproheptadine Hcl 2 Mg/5 Ml Syrup 10 Ml PEG TID 03/11/17 Reported Percocet 7.5-325 Mg Tablet (Oxycodone/Acetaminophen) 1 Each Tablet 1 Tab PO QID PRN 03/11/17 Reported FENTANYL 50mcg/hr (Fentanyl) 1 Each Patch.td72 1 Patch TP Q3DAYS 06/19/14 Reported Ondansetron Odt (Ondansetron) 4 Mg Tab.rapdis 4 Mg PEG QIDPRN PRN 06/19/14 Reported Impression . 1. Kyfhc-ym-ydmpxrd respiratory failure secondary to clinically suspected pneumonia. 2. History of laryngeal and lung cancer, status post tracheostomy. 3. 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 4. History of chronic tracheostomy. 5. HEMATOSTAXICS 6. RECURRENT MUCUS PLUGGING SPUTUM CULTURE-LC Preliminary Preliminary report SPUTUM CULT RES 1 Final Comment Pseudomonas aeruginosa 3+ Performed at: - [facility] [address], [place], [place] [id number] Community Coordinator: YANG Lawrence MD, Phone: [phone] * This is a corrected result. * Plan . REVIEWED R/B/A TO BRONCH WITH PT SHE CONSENTED CONTINUE ANTIBX FOR NOW ENTERAL NUTRITION ANURAG LOO MD Dec 08, 2018 09:24
[2018-12-08] MEDS: fentaNYL 50MCG/HR PATCH 1 PATCH PATCH.TD72 TD SCH (09:26)
[2018-12-08] MEDS ORDERED: ALTEPLASE 2MG VIAL 10 MG in IV NORMAL SALINE 100ML 100 ML IV ONE (09:30)
[2018-12-08 09:39] LABS: CALCIUM 9.1 mg/dL (8.5-10.1); CREATININE 0.7 mg/dL (0.6-1.0); GFR 98.2; POTASSIUM 3.5 mmol/L (3.5-5.1)
[2018-12-08] MEDS ORDERED: ALTEPLASE 1MG SYRINGE. INT CAT ONE (10:00)
[2018-12-08] MEDS: hydrALAZINE 20 MG/ML VIAL. IVP PRN ×2 (10:58→16:28)
[2018-12-08] MEDS: ONDANSETRON PF 4 MG/2 ML VIAL. IV PRN ×2 (11:02→17:24)
[2018-12-08] MEDS ORDERED: PROPOFOL 0 ML IV ONE (12:43)
--- NOTE | 2018-12-08 12:50 | PDOC ---
PROGRESS NOTES Chief Complaint Chief Complaint history of lung cancer and tracheostomy with recurrent infection. 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 anemia of chronic disease aspiration pneumonia Epistaxis Full code History of Present Illness History of Present Illness She complaining of abdominal pain For bronchoscopy later Discussed with aids social worker, they're able to provide expensive by mouth antibiotics she is on here to home health came from ICU, for sepsis Plan: bronchial later, home with home health on discharge with by mouth antibiotic that is covered by her insurance ff up cultures and other labs Vitals Vitals Vital Signs Date Time Temp Pulse Resp B/P (MAP) Pulse Ox O2 Delivery O2 Flow Rate FiO2 12/08/18 12:18 Trach Collar 10.0 12/08/18 11:59 150/70 (96) 12/08/18 11:33 89 12/08/18 11:00 98.1 107 17 98.1 Physical Exam Physical Exam GENERAL: sitting in chair resting quietly NECK: Trach + LUNGS:coarse bs, nonlabored HEART: S1 and S2 ABDOMEN: Soft and nontender. EXTREMITIES: No edema or cyanosis. SKIN: warm without rash HOME THERAPY TEACHER: Arouses to name, responds appropriately Port - clean General: Alert, Cooperative, mild distress Heart: Regular rate, Normal S1 Lungs: Crackles (bases) Abdomen: Soft, No tenderness, Other (VERY THIN) Extremities: No clubbing, No cyanosis, No tenderness/swelling Labs LABS Laboratory Tests Test 12/08/18 08:05 12/08/18 08:15 White Blood Count 14.6 x10^3/uL (4.0-11.0) Red Blood Count 4.32 x10^6/uL (3.50-5.40) Hemoglobin 9.4 g/dL (12.0-15.5) Hematocrit 32.1 % (36.0-47.0) Mean Corpuscular Volume 74 fL (79-100) Mean Corpuscular Hemoglobin 22 pg (25-35) Mean Corpuscular Hemoglobin Concent 29 g/dL (31-37) Red Cell Distribution Width 18.3 % (11.5-14.5) Platelet Count 379 x10^3/uL (140-400) Neutrophils (%) (Auto) 83 % (31-73) Lymphocytes (%) (Auto) 11 % (24-48) Monocytes (%) (Auto) 5 % (0-9) Eosinophils (%) (Auto) 0 % (0-3) Basophils (%) (Auto) 0 % (0-3) Neutrophils # (Auto) 12.2 x10^3uL (1.8-7.7) Lymphocytes # (Auto) 1.7 x10^3/uL (1.0-4.8) Monocytes # (Auto) 0.7 x10^3/uL (0.0-1.1) Eosinophils # (Auto) 0.1 x10^3/uL (0.0-0.7) Basophils # (Auto) 0.0 x10^3/uL (0.0-0.2) Sodium Level 140 mmol/L (136-145) Potassium Level 3.5 mmol/L (3.5-5.1) Chloride Level 101 mmol/L (98-107) Carbon Dioxide Level 34 mmol/L (21-32) Anion Gap 5 (6-14) Blood Urea Nitrogen 8 mg/dL (7-20) Creatinine 0.7 mg/dL (0.6-1.0) Estimated GFR (Cockcroft-Gault) 98.2 Glucose Level 86 mg/dL (70-99) Calcium Level 9.1 mg/dL (8.5-10.1) Review of Systems Review of Systems comPlains of hemoptysis, abdominal pain, the rest of ROS 14 point negative Assessment and Plan Assessmemt and Plan Problems Medical Problems: (1) Healthcare-associated pneumonia Status: Acute Comment Review of Relevant I have reviewed the following items miko (where applicable) has been applied. Labs Laboratory Tests Test 12/07/18 08:25 12/08/18 08:05 12/08/18 08:15 White Blood Count 13.4 x10^3/uL (4.0-11.0) 14.6 x10^3/uL (4.0-11.0) Red Blood Count 4.36 x10^6/uL (3.50-5.40) 4.32 x10^6/uL (3.50-5.40) Hemoglobin 9.6 g/dL (12.0-15.5) 9.4 g/dL (12.0-15.5) Hematocrit 32.3 % (36.0-47.0) 32.1 % (36.0-47.0) Mean Corpuscular Volume 74 fL (79-100) 74 fL (79-100) Mean Corpuscular Hemoglobin 22 pg (25-35) 22 pg (25-35) Mean Corpuscular Hemoglobin Concent 30 g/dL (31-37) 29 g/dL (31-37) Red Cell Distribution Width 18.3 % (11.5-14.5) 18.3 % (11.5-14.5) Platelet Count 402 x10^3/uL (140-400) 379 x10^3/uL (140-400) Neutrophils (%) (Auto) 80 % (31-73) 83 % (31-73) Lymphocytes (%) (Auto) 13 % (24-48) 11 % (24-48) Monocytes (%) (Auto) 6 % (0-9) 5 % (0-9) Eosinophils (%) (Auto) 1 % (0-3) 0 % (0-3) Basophils (%) (Auto) 0 % (0-3) 0 % (0-3) Neutrophils # (Auto) 10.8 x10^3uL (1.8-7.7) 12.2 x10^3uL (1.8-7.7) Lymphocytes # (Auto) 1.7 x10^3/uL (1.0-4.8) 1.7 x10^3/uL (1.0-4.8) Monocytes # (Auto) 0.8 x10^3/uL (0.0-1.1) 0.7 x10^3/uL (0.0-1.1) Eosinophils # (Auto) 0.1 x10^3/uL (0.0-0.7) 0.1 x10^3/uL (0.0-0.7) Basophils # (Auto) 0.1 x10^3/uL (0.0-0.2) 0.0 x10^3/uL (0.0-0.2) Prothrombin Time 14.8 SEC (11.7-14.0) Prothromb Time International Ratio 1.2 (0.8-1.1) Sodium Level 135 mmol/L (136-145) 140 mmol/L (136-145) Potassium Level 3.6 mmol/L (3.5-5.1) 3.5 mmol/L (3.5-5.1) Chloride Level 97 mmol/L (98-107) 101 mmol/L (98-107) Carbon Dioxide Level 33 mmol/L (21-32) 34 mmol/L (21-32) Anion Gap 5 (6-14) 5 (6-14) Blood Urea Nitrogen 8 mg/dL (7-20) 8 mg/dL (7-20) Creatinine 0.8 mg/dL (0.6-1.0) 0.7 mg/dL (0.6-1.0) Estimated GFR (Cockcroft-Gault) 84.2 98.2 Glucose Level 94 mg/dL (70-99) 86 mg/dL (70-99) Calcium Level 8.9 mg/dL (8.5-10.1) 9.1 mg/dL (8.5-10.1) Laboratory Tests Test 12/08/18 08:05 12/08/18 08:15 White Blood Count 14.6 x10^3/uL (4.0-11.0) Red Blood Count 4.32 x10^6/uL (3.50-5.40) Hemoglobin 9.4 g/dL (12.0-15.5) Hematocrit 32.1 % (36.0-47.0) Mean Corpuscular Volume 74 fL (79-100) Mean Corpuscular Hemoglobin 22 pg (25-35) Mean Corpuscular Hemoglobin Concent 29 g/dL (31-37) Red Cell Distribution Width 18.3 % (11.5-14.5) Platelet Count 379 x10^3/uL (140-400) Neutrophils (%) (Auto) 83 % (31-73) Lymphocytes (%) (Auto) 11 % (24-48) Monocytes (%) (Auto) 5 % (0-9) Eosinophils (%) (Auto) 0 % (0-3) Basophils (%) (Auto) 0 % (0-3) Neutrophils # (Auto) 12.2 x10^3uL (1.8-7.7) Lymphocytes # (Auto) 1.7 x10^3/uL (1.0-4.8) Monocytes # (Auto) 0.7 x10^3/uL (0.0-1.1) Eosinophils # (Auto) 0.1 x10^3/uL (0.0-0.7) Basophils # (Auto) 0.0 x10^3/uL (0.0-0.2) Sodium Level 140 mmol/L (136-145) Potassium Level 3.5 mmol/L (3.5-5.1) Chloride Level 101 mmol/L (98-107) Carbon Dioxide Level 34 mmol/L (21-32) Anion Gap 5 (6-14) Blood Urea Nitrogen 8 mg/dL (7-20) Creatinine 0.7 mg/dL (0.6-1.0) Estimated GFR (Cockcroft-Gault) 98.2 Glucose Level 86 mg/dL (70-99) Calcium Level 9.1 mg/dL (8.5-10.1) Microbiology 12/02/18 Blood Culture - Final, Complete NO GROWTH AFTER 5 DAYS 12/02/18 - Final, Complete 12/02/18 - Final, Complete 12/02/18 - Final, Complete 12/02/18 - Final, Complete 12/02/18 Gram Stain Evaluation - Final, Complete 12/02/18 Sputum Culture - Final, Complete 12/02/18 Sputum Result 1 - Final, Complete 12/02/18 Antimicrobic Susceptibility - Final, Complete Medications Current Medications Albuterol/ Ipratropium (Duoneb) 3 ml STK-MED ONCE .ROUTE ; Start 12/02/18 at 15: 16; Stop 12/02/18 at 15:17; Status DC Ondansetron HCl (Zofran) 4 mg PRN Q8HRS PRN IV NAUSEA/VOMITING; Start 12/02/18 at 16:45; Stop 12/03/18 at 16:44; Status DC Morphine Sulfate (Morphine Sulfate) 2 mg PRN Q2HR PRN IV PAIN Last administered on 12/03/18at 14:16; Start 12/02/18 at 16:45; Stop 12/03/18 at 16:44 ; Status DC Sodium Chloride 1,000 ml @ 100 mls/hr Q10H IV Last administered on 12/02/18at 19:41; Start 12/02/18 at 16:39; Stop 12/02/18 at 20:38; Status DC Vancomycin HCl (Vanco Per Pharmacy) 1 each PRN DAILY PRN MC SEE COMMENTS Last administered on 12/04/18at 09:04; Start 12/02/18 at 16:45; Stop 12/05/18 at 14:04 ; Status DC Piperacillin Sod/ Tazobactam Sod (Zosyn Per Pharmacy) 1 each PRN DAILY PRN MC SEE COMMENTS; Start 12/02/18 at 16:45; Stop 12/05/18 at 14:03; Status DC Vancomycin HCl 1.25 gm/Sodium Chloride 250 ml @ 167 mls/hr ONCE ONCE IV Last administered on 12/02/18at 19:39; Start 12/02/18 at 17:00; Stop 12/02/18 at 18:29 ; Status DC Piperacillin Sod/ Tazobactam Sod 4.5 gm/Sodium Chloride 100 ml @ 200 mls/hr ONCE ONCE IV Last administered on 12/02/18at 17:02; Start 12/02/18 at 17:00; Stop 12/02/18 at 17:29; Status DC Piperacillin Sod/ Tazobactam Sod 3.375 gm/Sodium Chloride 50 ml @ 100 mls/hr Q6HRS IV Last administered on 12/05/18at 12:08; Start 12/03/18 at 00:00; Stop at 14:03; Status DC Vancomycin HCl 1 gm/Sodium Chloride 250 ml @ 250 mls/hr Q18H IV Last administered on 12/04/18at 09:25; Start 12/03/18 at 14:00; Stop 12/04/18 at 12:00 ; Status DC Vancomycin HCl (Vancomycin Trough Level) 1 each 1X ONCE MC ; Start 12/04/18 at 07:30; Stop 12/04/18 at 07:31; Status DC Sodium Chloride 750 ml @ 375 mls/hr 1X ONCE IV Last administered on at 19:31; Start 12/02/18 at 19:00; Stop 12/02/18 at 20:59; Status DC Amlodipine Besylate (Norvasc) 5 mg DAILY PO Last administered on 12/03/18at 09: 25; Start 12/03/18 at 09:00; Stop 12/03/18 at 09:54; Status DC Fentanyl (Duragesic 50mcg/ Hr Patch) 1 patch Q3DAYS TD Last administered on 09:26; Start 12/05/18 at 09:00 Gabapentin (Neurontin) 300 mg PRN BID PRN PO NEUROPATHIC PAIN; Start 12/02/18 at 23:30; Stop 12/05/18 at 06:04; Status DC Lactobacillus Rhamnosus (Culturelle) 1 cap BID PO Last administered on 09:24; Start 12/03/18 at 09:00; Stop 12/03/18 at 09:52; Status DC Metoclopramide HCl (Reglan) 5 mg QIDACHS PO Last administered on 12/03/18 09: 24; Start 12/03/18 at 07:30; Stop 12/03/18 at 09:54; Status DC Ondansetron HCl (Zofran Odt) 4 mg PRN QID PRN PEG NAUSEA/VOMITING Last administered on 12/06/18 21:20; Start 12/02/18 at 23:30 Oxycodone/ Acetaminophen (Percocet 7.5/ 325) 1 tab PRN QID PRN PO PAIN Last administered on 12/03/18 09:26; Start 12/02/18 at 23:30; Stop 12/03/18 at 09:54 ; Status DC Pantoprazole Sodium (Protonix) 40 mg BIDBFRMEAL PO Last administered on 09:24; Start 12/03/18 at 07:30; Stop 12/03/18 at 09:53; Status DC Non-Formulary Medication (Albuterol Sulfate (Albuterol Sulfate Neb Soln)) 1 vial QID NEB ; Start 12/03/18 at 09:00; Status UNV Cyproheptadine HCl (Periactin) 4 mg TID PEG Last administered on 12/07/18 20: 29; Start 12/03/18 at 09:00 Donepezil HCl (Aricept) 5 mg BID PEG Last administered on 12/07/18 20:46; Start 12/03/18 at 09:00 Albuterol Sulfate (Ventolin Neb Soln) 2.5 mg RTQID NEB Last administered on 11:31; Start 12/03/18 at 08:00 Lansoprazole (Prevacid) 30 mg BIDBFRMEAL PEG Last administered on 12/07/18 07: 20; Start 12/03/18 at 16:30 Amlodipine Besylate (Norvasc) 5 mg DAILY PEG Last administered on 12/07/18 09: 24; Start 12/03/18 at 09:54 Metoclopramide HCl (Reglan) 5 mg QIDACHS PEG Last administered on 12/07/18at 20: 46; Start 12/03/18 at 09:54 Oxycodone/ Acetaminophen (Percocet 7.5/ 325) 1 tab PRN QID PRN PEG PAIN Last administered on 12/06/18 19:02; Start 12/03/18 at 09:54; Stop 12/06/18 at 22:28 ; Status DC Hydralazine HCl (Apresoline Inj) 10 mg PRN Q4HRS PRN IVP ELEVATED BP, SEE COMMENTS Last administered on 12/08/18at 10:58; Start 12/03/18 at 16:15 Vancomycin HCl 1 gm/Sodium Chloride 250 ml @ 250 mls/hr Q12H IV Last administered on 12/05/18 08:39; Start 12/04/18 at 21:00; Stop 12/05/18 at 14:03 ; Status DC Vancomycin HCl (Vancomycin Trough Level) 1 each 1X ONCE MC ; Start 12/05/18 at 20:30; Stop 12/05/18 at 20:30; Status DC Gabapentin (Neurontin Oral Soln) 250 mg PRN BID PRN PEG NEUROPATHIC PAIN Last administered on 12/05/18at 01:15; Start 12/05/18 at 01:00 Ceftolozane/ Tazobactam 750 mg/ Sodium Chloride 100 ml @ 100 mls/hr Q8HRS IV Last administered on 12/05/18 15:37; Start 12/05/18 at 14:30; Stop 12/05/18 at 16:42; Status DC Piperacillin Sod/ Tazobactam Sod 3.375 gm/Sodium Chloride 50 ml @ 100 mls/hr Q6HRS IV Last administered on 12/07/18 05:37; Start 12/05/18 at 18:00; Stop at 09:27; Status DC Oxycodone/ Acetaminophen (Percocet 7.5/ 325) 1 tab PRN Q4HRS PRN PO MODERATE TO SEVERE PAIN Last administered on 12/08/18at 11:13; Start 12/06/18 at 19:00 Acetaminophen (Tylenol) 650 mg PRN Q6HRS PRN PEG MILD PAIN / TEMP Last administered on 12/07/18at 00:06; Start 12/06/18 at 22:45 Ibuprofen (Children'S Motrin) 400 mg PRN Q6HRS PRN PO INFLAMMATION Last administered on 12/07/18at 14:25; Start 12/06/18 at 22:45 Ceftolozane/ Tazobactam 750 mg/ Sodium Chloride 100 ml @ 100 mls/hr Q8HRS IV Last administered on 12/08/18at 05:55; Start 12/07/18 at 10:30 Ondansetron HCl (Zofran) 4 mg PRN Q4HRS PRN IV NAUSEA/VOMITING Last administered on 12/08/18at 11:02; Start 12/07/18 at 15:30 Alteplase, Recombinant 10 mg/ Sodium Chloride 100 ml @ 10 mls/hr 1X ONCE IV ; Start 12/08/18 at 09:30; Stop 12/08/18 at 19:29; Status UNV Alteplase, Recombinant (Cathflo For Central Catheter Clearance) 1 mg 1X ONCE INT CAT Last administered on 12/08/18at 11:07; Start 12/08/18 at 10:00; Stop at 10:01; Status DC Propofol 20 ml @ As Directed STK-MED ONCE IV ; Start 12/08/18 at 12:43; Stop at 12:44; Status DC Active Scripts Active Culturelle (Lactobacillus Rhamnosus Gg) 1 Each Cap.sprink 1 Cap PO BID 30 Days Reported Albuterol Sulfate Neb Soln (Albuterol Sulfate) 0.63 Mg/3 Ml Vial.neb 1 Vial NEB QID Gabapentin (Gabapentin) 300 Mg Capsule 300 Mg PO BID PRN Amlodipine Besylate 5 Mg Tablet 5 Mg PO DAILY Pantoprazole Sodium 40 Mg Tablet.dr 40 Mg PEG BID Donepezil Hcl 5 Mg Tablet 5 Mg PEG BID Reglan (Metoclopramide Hcl) 10 Mg Tablet 5 Mg PO QIDACHS Cyproheptadine Hcl 2 Mg/5 Ml Syrup 10 Ml PEG TID Percocet 7.5-325 Mg Tablet (Oxycodone/Acetaminophen) 1 Each Tablet 1 Tab PO QID PRN FENTANYL 50mcg/hr (Fentanyl) 1 Each Patch.td72 1 Patch TP Q3DAYS Ondansetron Odt (Ondansetron) 4 Mg Tab.rapdis 4 Mg PEG QIDPRN PRN Vitals/I & O Vital Sign - Last 24 Hours 12/07/18 12/07/18 12/07/18 12/07/18 12:55 15:00 15:49 19:00 Temp 99.3 98.5 99.3 98.5 Pulse 105 101 Resp 24 22 B/P (MAP) 161/70 (100) 160/74 (102) Pulse Ox 92 O2 Delivery Tracheal Collar Tracheal Collar Tracheal Collar Tracheal Collar O2 Flow Rate 8.0 92.0 8.0 92.0 12/07/18 12/07/18 12/07/18 12/08/18 20:00 20:47 23:00 00:48 Temp 98.5 98.5 Pulse 109 Resp 24 16 B/P (MAP) 161/72 (101) Pulse Ox 96 98 O2 Delivery Trach Collar Tracheal Collar Tracheal Collar trach shield O2 Flow Rate 40.0 10.0 40.0 12/08/18 12/08/18 12/08/18 12/08/18 01:48 03:00 06:33 07:00 Temp 98.5 97.9 98.5 97.9 Pulse 111 104 Resp 16 19 18 B/P (MAP) 165/70 (101) 144/71 (95) Pulse Ox 98 91 91 93 O2 Delivery tach shield Tracheal Collar O2 Flow Rate 40.0 40.0 5.0 12/08/18 12/08/18 12/08/18 12/08/18 07:33 07:47 09:26 10:58 Pulse 104 B/P (MAP) 183/85 O2 Delivery Tracheal Collar O2 Flow Rate 8.0 8.0 8.0 12/08/18 12/08/18 12/08/18 12/08/18 11:00 11:13 11:33 11:59 Temp 98.1 98.1 Pulse 107 Resp 17 B/P (MAP) 185/83 (117) 150/70 (96) Pulse Ox 96 89 O2 Delivery Room Air Tracheal Collar O2 Flow Rate 8.0 8.0 12/08/18 12:18 O2 Delivery Trach Collar O2 Flow Rate 10.0 Intake and Output 12/07/18 12/07/18 12/08/18 15:00 23:00 07:00 Intake Total 1694 ml 755 ml Output Total 200 ml 1200 ml 200 ml Balance 1494 ml -445 ml -200 ml Nutrition Consultation Dietary Evaluation: Recommendations by RD: Increase Calorie Intake Comments: Continue TF per current order: Jevity 1.5 bolus QID, 237 ml (1 can)/bolus, w/200 ml water flushes w/each bolus Expected Outcomes/Goals: TF infusion to meet >75% est needs - met, goal ongoing Malnutrition Findings: Body Fat Depletion (Non Severe: Mod to Severe Weight Status: Underweight HEAVEN KRAUS MD Dec 08, 2018 12:50
[2018-12-08] MEDS ORDERED: EPINEPHrine 1 MG/ML VIAL INJ PRN (14:00)
[2018-12-08] MEDS ORDERED: LIDOCAINE 1% Multi-Dose 20 ML VIAL. INJ PRN (14:00)
[2018-12-08] MEDS ORDERED: LIDOCAINE 4% TOPICAL 50 ML SOLUTION. MM PRN (14:00)
[2018-12-08] MEDS ORDERED: LIDOCAINE 2% VISCOUS 100 ML BOTTLE. MM PRN (14:00)
[2018-12-08] MEDS: IV RINGERS,LACTATED 1000ML 1,000 ML IV SCH (14:07)
[2018-12-08] MEDS ORDERED: EPINEPHrine 1 MG/ML VIAL ONE (14:16)
[2018-12-08] MEDS ORDERED: LIDOCAINE 4% TOPICAL 50 ML SOLUTION. ONE (14:16)
[2018-12-08] MEDS ORDERED: LIDOCAINE 2% VISCOUS 100 ML BOTTLE. ONE (14:16)
[2018-12-08] MEDS ORDERED: LIDOCAINE 1% Multi-Dose 20 ML VIAL. ONE (14:16)
--- NOTE | 2018-12-08 17:53 | EKG ---
[facility] [address] [place] [address] Test Date: 2018-12-08 Test Time: 17:30:45 Pat Name: BERNARDO DE LEON Department: Room: [facility] Gender: F Leaf Stamper: : 1940 Requested By: HEAVEN KRAUS Order Number: [id number] Reading MD: Glen Dyson MD Measurements Intervals Ashley Rate: 129 P: -3 IN: 154 QRS: -34 QRSD: 104 T: 82 QT: 296 QTc: 435 Interpretive Statements SINUS TACHYCARDIA LEFT ATRIAL ABNORMALITY ABNORMAL LEFT AXIS DEVIATION LEFT ANTERIOR FASCICULAR BLOCK LVH WITH REPOLARIZATION ABNORMALITY ABNORMAL ECG Electronically Signed On 12-12-2018 21:57:44 CDT by Glen Dyson MD
--- NOTE | 2018-12-08 19:13 | OP ---
DATE OF SURGERY: 12/08/2018 ATTENDING PHYSICIAN: Miguel Torres MD PROCEDURE: Bronchoscopy. INDICATIONS: The patient with hemoptysis. CONSENT: Risks, benefits, and alternatives were reviewed with the patient and she consented. SEDATION: Please see Anesthesia's notes. DESCRIPTION OF PROCEDURE: Timeout was performed prior to performing the procedure. The patient was sedated with the anesthesia. Vital signs and O2 saturation were maintained within normal limits. Bronchoscope was passed through an indwelling tracheostomy tube. The tracheostomy tube was properly positioned. There were thick white secretions, right greater than left. There was mucus plugging bilaterally, the right side greater than left. There was no evidence of bleeding. There was no evidence of endobronchial lesion. A lavage of the right lower lobe and left lower lobe was performed. The return was cloudy. FINDINGS: 1. Properly positioned tracheostomy tube. 2. No endobronchial lesion. 3. No active bleeding. PLAN: We will await the BAL results. The patient tolerated procedure well with no complications. ANURAG LOO MD DR: MAGGIE/sena JOB#: [id number] / [id number]
[2018-12-09 03:00] VITALS: BP 161/86
[2018-12-09] MEDS: IV RINGERS,LACTATED 1000ML 1,000 ML IV SCH ×2 (03:35→16:55)
[2018-12-09] MEDS: oxyCODONE/APAP 7.5/325 1 TAB TABLET PO PRN ×4 (03:52→16:28)
[2018-12-09] MEDS: NORMAL SALINE IV SCH ×2 (05:01→13:22)
[2018-12-09] MEDS: TAZOBACTAM IV SCH ×2 (05:01→13:22)
[2018-12-09] MEDS: CEFTOLOZANE IV SCH ×2 (05:01→13:22)
[2018-12-09 07:00] VITALS: BP 170/79
[2018-12-09] MEDS: CYPROHEPTADINE 4 MG TABLET. PEG SCH ×2 (07:54→13:39)
[2018-12-09] MEDS: amLODIPine BESYLATE 5 MG TABLET PEG SCH (07:54)
[2018-12-09] MEDS: LANSOPRAZOLE 30 MG TAB.RAP.DR PEG SCH ×2 (07:54→16:27)
[2018-12-09] MEDS: DONEPEZIL HCL 5 MG TABLET. PEG SCH (07:55)
[2018-12-09] MEDS: METOCLOPRAMIDE 10 MG TABLET. PEG SCH ×3 (07:55→16:27)
[2018-12-09] MEDS: ALBUTEROL SULFATE 2.5 MG/3 ML NEBU. NEB SCH ×3 (08:25→16:17)
[2018-12-09] MEDS ORDERED: LABETALOL 20 MG/4 ML DISP.SYRIN. IVP PRN (08:45)
--- NOTE | 2018-12-09 10:33 | PDOC ---
Infectious Disease Note Subjective: Subjective pt says continue to not feel well had nausea and vomiting had chestpain now better s/p bronch sepsis alert per RN yesterday ROS: ROS Negative except for above. Vital Signs: Vital Signs Vital Signs Date Time Temp Pulse Resp B/P (MAP) Pulse Ox O2 Delivery O2 Flow Rate FiO2 12/09/18 08:56 97 Tracheal Collar 10.0 12/09/18 07:54 96 170/79 12/09/18 07:00 97.7 16 97.7 Physical Exam: PHYSICAL EXAM GENERAL: sitting in chair resting quietly NECK: Trach + LUNGS:coarse bs, nonlabored HEART: S1 and S2 ABDOMEN: Soft and nontender. EXTREMITIES: No edema or cyanosis. SKIN: warm without rash CAN MAKER: Arouses to name, responds appropriately Port - clean Medications: Inpatient Meds: Current Medications Medications (Trade) Dose Ordered Sig/Yuliana Start Time Stop Time Status Last Admin Dose Admin Acetaminophen (Tylenol) 650 mg PRN Q6HRS PRN 12/06/18 22:45 12/07/18 00:06 650 MG Albuterol Sulfate (Ventolin Neb Soln) 2.5 mg RTQID 12/03/18 08:00 12/09/18 08:25 2.5 MG Albuterol/ Ipratropium (Duoneb) 3 ml STK-MED ONCE 12/02/18 15:16 12/02/18 15:17 DC Alteplase, Recombinant (Cathflo For Central Catheter Clearance) 1 mg 1X ONCE 12/08/18 10:00 12/08/18 10:01 DC 12/08/18 11:07 1 MG Alteplase, Recombinant 10 mg/ Sodium Chloride 100 ml @ 10 mls/hr 1X ONCE 12/08/18 09:30 12/08/18 19:29 UNV Amlodipine Besylate (Norvasc) 5 mg DAILY 12/03/18 09:54 12/09/18 07:54 5 MG Ceftolozane/ Tazobactam 750 mg/ Sodium Chloride 100 ml @ 100 mls/hr Q8HRS 12/07/18 10:30 12/09/18 05:01 100 MLS/HR Cyproheptadine HCl (Periactin) 4 mg TID 12/03/18 09:00 12/09/18 07:54 4 MG Donepezil HCl (Aricept) 5 mg BID 12/03/18 09:00 12/09/18 07:55 5 MG Epinephrine HCl (Adrenalin) 1 mg STK-MED ONCE 12/08/18 14:16 12/08/18 14:18 DC Fentanyl (Duragesic 50mcg/ Hr Patch) 1 patch Q3DAYS 12/05/18 09:00 12/08/18 09:26 1 PATCH Gabapentin (Neurontin Oral Soln) 250 mg PRN BID PRN 12/05/18 01:00 12/05/18 01:15 250 MG Gabapentin (Neurontin) 300 mg PRN BID PRN 12/02/18 23:30 12/05/18 06:04 DC Hydralazine HCl (Apresoline Inj) 10 mg PRN Q4HRS PRN 12/03/18 16:15 12/08/18 16:28 10 MG Ibuprofen (Children'S Motrin) 400 mg PRN Q6HRS PRN 12/06/18 22:45 12/07/18 14:25 400 MG Labetalol HCl (Normodyne Iv Push) 10 mg PRN Q2HR PRN 12/09/18 08:45 Lactobacillus Rhamnosus (Culturelle) 1 cap BID 12/03/18 09:00 12/03/18 09:52 DC 12/03/18 09:24 1 CAP Lansoprazole (Prevacid) 30 mg BIDBFRMEAL 12/03/18 16:30 12/09/18 07:54 30 MG Lidocaine HCl 50 ml STK-MED ONCE 12/08/18 14:16 12/08/18 14:18 DC Lidocaine HCl (Lidocaine 1% 20ml Vial) 20 ml STK-MED ONCE 12/08/18 14:16 12/08/18 14:18 DC Lidocaine HCl (Lidocaine 2% Viscous) 100 ml STK-MED ONCE 12/08/18 14:16 12/08/18 14:18 DC Metoclopramide HCl (Reglan) 5 mg QIDACHS 12/03/18 09:54 12/09/18 07:55 5 MG Morphine Sulfate (Morphine Sulfate) 2 mg PRN Q2HR PRN 12/02/18 16:45 12/03/18 16:44 DC 12/03/18 14:16 2 MG Non-Formulary Medication (Albuterol Sulfate (Albuterol Sulfate Neb Soln)) 1 vial QID 12/03/18 09:00 UNV Ondansetron HCl (Zofran Odt) 4 mg PRN QID PRN 12/02/18 23:30 12/06/18 21:20 4 MG Ondansetron HCl (Zofran) 4 mg PRN Q4HRS PRN 12/07/18 15:30 12/08/18 17:24 4 MG Oxycodone/ Acetaminophen (Percocet 7.5/ 325) 1 tab PRN Q4HRS PRN 12/06/18 19:00 12/09/18 07:56 1 TAB Pantoprazole Sodium (Protonix) 40 mg BIDBFRMEAL 12/03/18 07:30 12/03/18 09:53 DC 12/03/18 09:24 40 MG Piperacillin Sod/ Tazobactam Sod (Zosyn Per Pharmacy) 1 each PRN DAILY PRN 12/02/18 16:45 12/05/18 14:03 DC Piperacillin Sod/ Tazobactam Sod 3.375 gm/Sodium Chloride 50 ml @ 100 mls/hr Q6HRS 12/05/18 18:00 12/07/18 09:27 DC 12/07/18 05:37 100 MLS/HR Piperacillin Sod/ Tazobactam Sod 4.5 gm/Sodium Chloride 100 ml @ 200 mls/hr ONCE ONCE 12/02/18 17:00 12/02/18 17:29 DC 12/02/18 17:02 200 MLS/HR Propofol 0 ml @ As Directed STK-MED ONCE 12/08/18 12:43 12/08/18 12:44 DC Ringer's Solution 1,000 ml @ 75 mls/hr [id number] 12/08/18 14:15 12/08/18 14:07 75 MLS/HR Sodium Chloride 750 ml @ 375 mls/hr 1X ONCE 12/02/18 19:00 12/02/18 20:59 DC 12/02/18 19:31 375 MLS/HR Vancomycin HCl (Vanco Per Pharmacy) 1 each PRN DAILY PRN 12/02/18 16:45 12/05/18 14:04 DC 12/04/18 09:04 1 EACH Vancomycin HCl (Vancomycin Trough Level) 1 each 1X ONCE 12/05/18 20:30 12/05/18 20:30 DC Vancomycin HCl 1.25 gm/Sodium Chloride 250 ml @ 167 mls/hr ONCE ONCE 12/02/18 17:00 12/02/18 18:29 DC 12/02/18 19:39 167 MLS/HR Vancomycin HCl 1 gm/Sodium Chloride 250 ml @ 250 mls/hr Q12H 12/04/18 21:00 12/05/18 14:03 DC 12/05/18 08:39 250 MLS/HR Labs: Micro RUN DATE: 12/08/18 PAGE 1 RUN TIME: 1118 [facility] [address] [place] [address] Jorge Tierney M.D., [employer] Apprentice PATIENT: BERNARDO DE LEON ACCT: [id number] LOC: [address] [place] [address] U : [id number] AGE/SX: 78/F ROOM: [facility] REG : 12/02/[address]: CUONG SHIRLEY MD : 1940 BED: 1 DIS : STATUS: ADM IN TLOC: SPEC #: [id number] DAVID: 12/02/18 STATUS: COMP REQ #: [id number] RECD: 12/02/[address]: ORION PAZ APRN SOURCE: SPUTUM ENTR: 12/02/[address] [facility] [address]: NIMCO MICHAEL MD [facility]: CATHERINE BRYANT MD ORDERED: SPUTUM CULTURE Procedure Result GRAM STAIN WHITE BLOOD CELLS Final Many GRAM STAIN EPITHELIAL CELLS Final Moderate GRAM STAIN RESULT 1 Final Comment Many gram positive cocci. GRAM STAIN RESULT 2 Final Comment Many gram negative rods. GRAM STAIN EVALUATION Final Comment This specimen is of good quality and is acceptable for routine bacterial culture. Performed at: - [address], [place], [place] [id number] Continuous Towel Roller: YANG Lawrence MD, Phone: [phone] SPUTUM CULTURE- Final Final report SPUTUM CULT RES 1 Final Comment Carbapenem-resistant Pseudomonas aeruginosa 3+ Multi-Drug Resistant Organism * This is a corrected result. * A prior result that was reported as final has been changed. CONTINUED ON NEXT PAGE RUN DATE: 12/08/18 PAGE 2 RUN TIME: 5465 [facility] [address] [place] [address] Jorge Tierney M.D., Blacksmith Apprentice SPEC: [id number] PATIENT: BERNARDO DE LEON [id number] ( Continued) Procedure Result ANTIMICROBIAL SUSCEPTIBILITY Final Comment S = Susceptible; I = Intermediate; R = Resistant P = Positive; N = Negative MICS are expressed in micrograms per mL Antibiotic RSLT#1 RSLT#2 RSLT#3 RSLT#4 Amikacin S<=2 Cefepime R =32 Ceftazidime R>=64 Ciprofloxacin I =2 Gentamicin S<=1 Imipenem R>=16 Levofloxacin I =4 Meropenem I =8 Piperacillin R>=128 Ticarcillin R>=128 Tobramycin S<=1 Performed at: DA - [facility] [address] [facility] [address], [place], [place] [id number] Continuous Towel Roller: YANG Lawrence MD, Phone: [phone] Objective: Assessment: Hypoxic respiratory failure.Hemoptysis Respiratory infection CRE PSAE, S/P Bronch History of lung cancer. Tracheostomy. History of laryngeal cancer. Leukocytosis, upward trend Nausea and vomiting Plan: Plan of Care cont zerbaxa f/u bronch c/s Prognosis poor D/W RN ELIE MATOS MD Dec 09, 2018 10:33
[2018-12-09 11:00] VITALS: BP 152/78
--- NOTE | 2018-12-09 11:06 | PDOC ---
PULMONARY PROGRESS NOTES Subjective PT NOT MORE SOA NOT MUCH IN COUGHING UP BLOOD Vitals Vital Signs Date Time Temp Pulse Resp B/P (MAP) Pulse Ox O2 Delivery O2 Flow Rate FiO2 12/09/18 08:56 97 Tracheal Collar 10.0 12/09/18 07:54 96 170/79 12/09/18 07:00 97.7 16 97.7 ROS: No Nausea, No Chest Pain, No Abdominal Pain, No Increase Cough General: Alert, No acute distress Lungs: Crackles (bases) Cardiovascular: S1, S2 Abdomen: Soft, Non-tender Extremities: No Edema Skin: Warm Labs Laboratory Tests Test 12/08/18 08:05 12/08/18 08:15 White Blood Count 14.6 x10^3/uL (4.0-11.0) Red Blood Count 4.32 x10^6/uL (3.50-5.40) Hemoglobin 9.4 g/dL (12.0-15.5) Hematocrit 32.1 % (36.0-47.0) Mean Corpuscular Volume 74 fL (79-100) Mean Corpuscular Hemoglobin 22 pg (25-35) Mean Corpuscular Hemoglobin Concent 29 g/dL (31-37) Red Cell Distribution Width 18.3 % (11.5-14.5) Platelet Count 379 x10^3/uL (140-400) Neutrophils (%) (Auto) 83 % (31-73) Lymphocytes (%) (Auto) 11 % (24-48) Monocytes (%) (Auto) 5 % (0-9) Eosinophils (%) (Auto) 0 % (0-3) Basophils (%) (Auto) 0 % (0-3) Neutrophils # (Auto) 12.2 x10^3uL (1.8-7.7) Lymphocytes # (Auto) 1.7 x10^3/uL (1.0-4.8) Monocytes # (Auto) 0.7 x10^3/uL (0.0-1.1) Eosinophils # (Auto) 0.1 x10^3/uL (0.0-0.7) Basophils # (Auto) 0.0 x10^3/uL (0.0-0.2) Sodium Level 140 mmol/L (136-145) Potassium Level 3.5 mmol/L (3.5-5.1) Chloride Level 101 mmol/L (98-107) Carbon Dioxide Level 34 mmol/L (21-32) Anion Gap 5 (6-14) Blood Urea Nitrogen 8 mg/dL (7-20) Creatinine 0.7 mg/dL (0.6-1.0) Estimated GFR (Cockcroft-Gault) 98.2 Glucose Level 86 mg/dL (70-99) Calcium Level 9.1 mg/dL (8.5-10.1) Medications Active Scripts Medications Dose Route/Sig Max Daily Dose Days Date Category Albuterol Sulfate Neb Soln (Albuterol Sulfate) 0.63 Mg/3 Ml Vial.neb 1 Vial NEB QID 12/02/18 Reported Gabapentin (Gabapentin) 300 Mg Capsule 300 Mg PO BID PRN 10/19/18 Reported Amlodipine Besylate 5 Mg Tablet 5 Mg PO DAILY 10/19/18 Reported Culturelle (Lactobacillus Rhamnosus Gg) 1 Each Cap.sprink 1 Cap PO BID 30 07/07/17 Rx Pantoprazole Sodium 40 Mg Tablet.dr 40 Mg PEG BID 03/11/17 Reported Donepezil Hcl 5 Mg Tablet 5 Mg PEG BID 03/11/17 Reported Reglan (Metoclopramide Hcl) 10 Mg Tablet 5 Mg PO QIDACHS 03/11/17 Reported Cyproheptadine Hcl 2 Mg/5 Ml Syrup 10 Ml PEG TID 03/11/17 Reported Percocet 7.5-325 Mg Tablet (Oxycodone/Acetaminophen) 1 Each Tablet 1 Tab PO QID PRN 03/11/17 Reported FENTANYL 50mcg/hr (Fentanyl) 1 Each Patch.td72 1 Patch TP Q3DAYS 06/19/14 Reported Ondansetron Odt (Ondansetron) 4 Mg Tab.rapdis 4 Mg PEG QIDPRN PRN 06/19/14 Reported Impression . 1. Pxvdz-cs-nxkvour respiratory failure secondary to clinically suspected pneumonia. 2. History of laryngeal and lung cancer, status post tracheostomy. 3. 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 4. History of chronic tracheostomy. 5. HEMATOSTAXICS 6. RECURRENT MUCUS PLUGGING SPUTUM CULT RES 1 Final Comment Carbapenem-resistant Pseudomonas aeruginosa 3+ Multi-Drug Resistant Organism * This is a corrected result. * A prior result that was reported as final has been changed. CONTINUED ON NEXT PAGE RUN DATE: 12/08/18 PAGE 2 RUN TIME: 0785 [facility] [address] [place] [address] Jorge Tierney M.D., Janitorial Maintenance Worker SPEC: [id number] PATIENT: BERNARDO DE LEON [id number] ( Continued) Procedure Result ANTIMICROBIAL SUSCEPTIBILITY Final Comment S = Susceptible; I = Intermediate; R = Resistant P = Positive; N = Negative MICS are expressed in micrograms per mL Antibiotic RSLT#1 RSLT#2 RSLT#3 RSLT#4 Amikacin S<=2 Cefepime R =32 Ceftazidime R>=64 Ciprofloxacin I =2 Gentamicin S<=1 Imipenem R>=16 Levofloxacin I =4 Meropenem I =8 Piperacillin R>=128 Ticarcillin R>=128 Tobramycin S<=1 Performed at: [address], [place] [id number] Retail Route Supervisor: YANG Lawrence MD, Phone: [phone] SPUTUM CULTURE-LC Preliminary Preliminary report SPUTUM CULT RES 1 Final Comment Pseudomonas aeruginosa 3+ Performed at: [address], [place] [id number] Retail Route Supervisor: YANG Lawrence MD, Phone: [phone] * This is a corrected result. * Plan . ZEBREXA PER ID FRO CRE PSA S/P BRONCH TRANSFER NOW ANURAG COLÓN MD Dec 09, 2018 11:06
[2018-12-09] MEDS ORDERED: FENT1PAT17 TP (11:41)
[2018-12-09] MEDS ORDERED: OXYC1TAB19 PO (11:41)
--- NOTE | 2018-12-09 11:44 | PDOC3 ---
Discharge Summary Visit Information Date of Admission: Dec 02, 2018 Date of Discharge: Dec 09, 2018 Admitting Diagnosis Comment: History of lung cancer and tracheostomy with recurrent infection. 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 anemia of chronic disease aspiration pneumonia Epistaxis Full code Final Diagnosis Problems Medical Problems: (1) Healthcare-associated pneumonia Status: Acute Brief Hospital Course Allergies Allergies Coded Allergies Type Severity Reaction Last Updated Verified aspirin Allergy Intermediate hives 03/16/17 Yes I S O L A T I O N *CONTACT* Allergy Unknown 08/15/18 Yes Vital Signs Vital Signs Date Time Temp Pulse Resp B/P (MAP) Pulse Ox O2 Delivery O2 Flow Rate FiO2 12/09/18 08:56 97 Tracheal Collar 10.0 12/09/18 07:54 96 170/79 12/09/18 07:00 97.7 16 97.7 Lab Results Laboratory Tests Test 12/08/18 08:05 12/08/18 08:15 White Blood Count 14.6 x10^3/uL (4.0-11.0) Red Blood Count 4.32 x10^6/uL (3.50-5.40) Hemoglobin 9.4 g/dL (12.0-15.5) Hematocrit 32.1 % (36.0-47.0) Mean Corpuscular Volume 74 fL (79-100) Mean Corpuscular Hemoglobin 22 pg (25-35) Mean Corpuscular Hemoglobin Concent 29 g/dL (31-37) Red Cell Distribution Width 18.3 % (11.5-14.5) Platelet Count 379 x10^3/uL (140-400) Neutrophils (%) (Auto) 83 % (31-73) Lymphocytes (%) (Auto) 11 % (24-48) Monocytes (%) (Auto) 5 % (0-9) Eosinophils (%) (Auto) 0 % (0-3) Basophils (%) (Auto) 0 % (0-3) Neutrophils # (Auto) 12.2 x10^3uL (1.8-7.7) Lymphocytes # (Auto) 1.7 x10^3/uL (1.0-4.8) Monocytes # (Auto) 0.7 x10^3/uL (0.0-1.1) Eosinophils # (Auto) 0.1 x10^3/uL (0.0-0.7) Basophils # (Auto) 0.0 x10^3/uL (0.0-0.2) Sodium Level 140 mmol/L (136-145) Potassium Level 3.5 mmol/L (3.5-5.1) Chloride Level 101 mmol/L (98-107) Carbon Dioxide Level 34 mmol/L (21-32) Anion Gap 5 (6-14) Blood Urea Nitrogen 8 mg/dL (7-20) Creatinine 0.7 mg/dL (0.6-1.0) Estimated GFR (Cockcroft-Gault) 98.2 Glucose Level 86 mg/dL (70-99) Calcium Level 9.1 mg/dL (8.5-10.1) Brief Hospital Course Ms. Ch is a 78 old -Thai female who has a history of lung cancer or ENT cancer she's chronically trached PEG. She comes here quite frequently because of infections PNA and lots of secretions history of Pseudomonas in the sputum Had a bronch. Always comanage with pulmonary and ID. Insurance will cover for the IV antibiotic she gets at home with current home health. She already has an indwelling Port-A-Cath.. Cleared from ID and pulmonary to go home. Procedures performed from 12/08/18 Causes performed ID/pulmonary PSeudomonas in SPUTUM Suction prn aggressively Some bleeding with suctioning, not unusual Discharge Information Condition at Discharge: Improved, Stable Disposition/Orders: D/C to Home w/ HH Scheduled Albuterol Sulfate (Albuterol Sulfate Neb Soln) 0.63 Mg/3 Ml Vial.neb, 1 VIAL NEB QID for copd, #150 Ref 1 (Reported) Entered as Reported by: NAMITA MORRISON on 12/02/181809 Last Action: Converted on 12/02/182321 by CUONG SHIRLEY MD Amlodipine Besylate (Amlodipine Besylate) 5 Mg Tablet, 5 MG PO DAILY for htn, ( Reported) Entered as Reported by: ANGELINE JANG RN on 10/19/18 1321 Last Action: Continued on 12/02/182321 by CUONG SHIRLEY MD Cyproheptadine Hcl (Cyproheptadine Hcl) 2 Mg/5 Ml Syrup, 10 ML PEG TID, ( Reported) Entered as Reported by: JOSÉ LUIS HUTCHINS on 03/11/17257 Last Action: Converted on 12/02/182321 by CUONG SHIRLEY MD Donepezil Hcl (Donepezil Hcl) 5 Mg Tablet, 5 MG PEG BID, (Reported) Entered as Reported by: JOSÉ LUIS HUTCHINS on 03/11/17257 Last Action: Converted on 12/02/182321 by CUONG SHIRLEY MD Fentanyl (FENTANYL 50mcg/hr) 1 Each Patch.td72, 1 PATCH TP Q3DAYS for pain MDD 1 , #7 Prescribed by: HEAVEN KRAUS on 12/09/18 1141 Lactobacillus Rhamnosus Gg (Culturelle) 1 Each Cap.sprink, 1 CAP PO BID for 30 Days, #60 Prescribed by: JAVIER IRVIN MD on 07/07/17 1200 Last Action: Continued on 12/02/182321 by CUONG SHIRLEY MD Metoclopramide Hcl (Reglan) 10 Mg Tablet, 5 MG PO QIDACHS, (Reported) Entered as Reported by: JOSÉ LUIS HUTCHINS on 03/11/17257 Last Action: Continued on 12/02/182321 by CUONG SHIRLEY MD Pantoprazole Sodium (Pantoprazole Sodium) 40 Mg Tablet.dr, 40 MG PEG BID, ( Reported) Entered as Reported by: JOSÉ LUIS HUTCHINS on 03/11/17257 Last Action: Continued on 12/02/182321 by CUONG SHIRLEY MD Scheduled PRN Gabapentin (Gabapentin ) 300 Mg Capsule, 300 MG PO BID PRN for PAIN, (Reported ) Entered as Reported by: ANGELINE JANG, RN on 10/19/18 1339 Last Action: Continued on 12/02/182321 by CUONG SHIRLEY MD Ondansetron (Ondansetron Odt) 4 Mg Tab.rapdis, 4 MG PEG QIDPRN PRN for NAUSEA/ VOMITING, (Reported) Entered as Reported by: AYANA MORAN on 06/19/14 0573 Last Action: Continued on 12/02/182321 by CUONG SHIRLEY MD Oxycodone/Apap 7.5-325 (Percocet 7.5-325 Mg Tablet ) 1 Each Tablet, 1 TAB PO QID PRN for PAIN MDD 1, #30 Prescribed by: HEAVEN KRAUS on 12/09/18 1141 HEAVEN KRAUS MD Dec 09, 2018 11:44
--- NOTE | 2018-12-09 12:38 | SNU/HH DC ---
DISCHARGE WITH HOME HEALTH DISCHARGE INFORMATION: Discharge Date: Dec 09, 2018 Final Diagnosis: Problems Medical Problems: (1) Healthcare-associated pneumonia Status: Acute Condition on Discharge: Stable CODE STATUS: Code Status: Full HOME HEALTH: Face to Face: I certify this patient is under my care and that I, or a nurse practitioner or physician's butcher assistant working with me, had a face to face encounter that meets the physician face to face encounter requirements with this patient on []. Physical Therapy For: Evalulation/Treatment Occupational Therapy For: Evaluation/Treatment Speech Language Pathology For: Evaluation/Treatment Home Health Aide For: Self-care SCRUB NURSE For: Community Resources Pt Meets Homebound Status: Poor coordination w/ amb. POST DISCHARGE ORDERS: Activity Instructions for Disc: Activity as tolerated Weight Bearing Status after Di: As tolerated DIET AFTER DISCHARGE: bolus feeds Wound/Incision Care: No wound care needed CHECKS AFTER DISCHARGE: Checks after discharge: Check blood press - daily FOLLOW-UP: DC TO SNF LABS: BMP 06/22/18, Q 8 hours 750mg Zerbexa for MDRO PNA TREATMENT/EQUIPMENT ORDERS: Adaptive Equipment Issued: None, Bath Bench, Commode Discharge Respiratory Equipmen: Oxygen, Nebulizer CERTIFICATION STATEMENT: Certification Statement: Certification Statement: Based on the above finding, I certify that this patient is confined to the home and needs intermittent alf care, physical therapy and/or speech therapy, or continues to need occupational therapy.~ This patient is under my care, and I have initiated the establishment of the plan of care.~ This patient will be followed by myself or a community physician who will periodically review the plan of care. Home Meds Active Scripts Oxycodone/Apap 7.5-325 (PERCOCET 7.5-325 MG TABLET ) 1 Each Tablet, 1 TAB PO QID PRN for PAIN MDD 1, #30 TAB Prov:HEAVEN KRAUS MD 12/09/18 Fentanyl (FENTANYL 50mcg/hr) 1 Each Patch.td72, 1 PATCH TP Q3DAYS for pain MDD 1 , #7 PATCH Prov:HEAVEN KRAUS MD 12/09/18 Lactobacillus Rhamnosus Gg (CULTURELLE) 1 Each Cap.sprink, 1 CAP PO BID for 30 Days, #60 CAP Prov:JAVIER IRVIN MD 07/07/17 Reported Medications Albuterol Sulfate (ALBUTEROL SULFATE NEB SOLN) 0.63 Mg/3 Ml Vial.neb, 1 VIAL NEB QID for copd, #150 ML 1 Refill 12/02/18 Gabapentin (GABAPENTIN ) 300 Mg Capsule, 300 MG PO BID PRN for PAIN, CAP 10/19/18 Amlodipine Besylate (AMLODIPINE BESYLATE) 5 Mg Tablet, 5 MG PO DAILY for htn, TAB 10/19/18 Pantoprazole Sodium (PANTOPRAZOLE SODIUM) 40 Mg Tablet.dr, 40 MG PEG BID, TAB 03/11/17 Donepezil Hcl (DONEPEZIL HCL) 5 Mg Tablet, 5 MG PEG BID 03/11/17 Metoclopramide Hcl (REGLAN) 10 Mg Tablet, 5 MG PO QIDACHS 03/11/17 Cyproheptadine Hcl (CYPROHEPTADINE HCL) 2 Mg/5 Ml Syrup, 10 ML PEG TID, MISC 03/11/17 Ondansetron (ONDANSETRON ODT) 4 Mg Tab.rapdis, 4 MG PEG QIDPRN PRN for NAUSEA/ VOMITING 06/19/14 HEAVEN KRAUS MD Dec 09, 2018 12:38
[2018-12-09 15:00] VITALS: BP 130/79
== END 2018-12-09 18:15 | disposition home health service (06) | DRG 871 ==
LOC: ER 13:17 → 2 NORTH 17:00 → 5 NORTH 12-08 02:25
PROVIDERS: ADMIT Family Medicine; ATTEND Family Medicine
PROC: 0B9F8ZX Drainage of Right Lower Lung Lobe, Via Natural or Artificial Opening Endoscopic, Diagnostic (ICD-10-PCS; 2018-12-08)
PROC: 0B9J8ZX Drainage of Left Lower Lung Lobe, Via Natural or Artificial Opening Endoscopic, Diagnostic (ICD-10-PCS; principal; 2018-12-08 14:00)
DX: A41.9 Sepsis, unspecified organism (principal); J69.0 Pneumonitis due to inhalation of food and vomit; J96.21 Acute and chronic respiratory failure with hypoxia; R53.2 Functional quadriplegia; I50.32 Chronic diastolic (congestive) heart failure; I11.0 Hypertensive heart disease with heart failure; F03.90 Unspecified dementia, unspecified severity, without behavioral disturbance, psychotic disturbance, mood disturbance, and anxiety; M19.90 Unspecified osteoarthritis, unspecified site; D63.8 Anemia in other chronic diseases classified elsewhere; R04.0 Epistaxis; T17.990A Other foreign object in respiratory tract, part unspecified in causing asphyxiation, initial encounter; J44.9 Chronic obstructive pulmonary disease, unspecified; Z86.14 Personal history of Methicillin resistant Staphylococcus aureus infection; Z93.0 Tracheostomy status; Z85.118 Personal history of other malignant neoplasm of bronchus and lung; Z85.21 Personal history of malignant neoplasm of larynx; Z88.6 Allergy status to analgesic agent; Z93.1 Gastrostomy status; Z87.01 Personal history of pneumonia (recurrent); Z87.891 Personal history of nicotine dependence; Z79.899 Other long term (current) drug therapy; Z93.3 Colostomy status
CPT/HCPCS: 31622; 31720; 36415; 71045; 74018; 80048; 80053; 80061; 80202; 83605; 83880; 84145; 84484; 85025; 85610; 87040; 87070; 87186; 87205; 93005; 93306; 94640; 94760; 96365; J0360; J2270; J2405; J2543; J2704; J3370; J7030; J7050; J7120; J7613; J8597; Q0162; 99285-25; J0695

== ENCOUNTER 2018-12-13 10:15 | Inpatient (IN) | payer MEDICARE, OTHER ==
[~2018-12-13] VITALS: Ht 170.2 cm; Wt 46.8 kg
[2018-12-13] MEDS ORDERED: VANCOMYCIN PER PHARMACY MC PRN (10:30)
[2018-12-13] MEDS ORDERED: IV NORMAL SALINE 500ML BAG 500 ML IV ONE (10:30)
[2018-12-13] MEDS ORDERED: IPRATRPIUM/ALBUTEROL 0.5/2.5MG 3 ML NEBU. NEB ONE (10:30)
--- NOTE | 2018-12-13 10:33 | PHYS DOC ---
Past Medical History Past Medical History: Cancer, Dementia, Hypertension, MRSA, Pneumonia, Other Additional Past Medical Histor: Lung CA Past Surgical History: Other Additional Past Surgical Histo: Cataract,PEG tube,CA trach,PORT Alcohol Use: None Drug Use: None Adult General Chief Complaint Chief Complaint: DYSPNEA/RESPIRATOY DISTRESS [facility] HPI Patient is a 78 year old female who presents with chief complaint shortness of breath apparently oxygen was 50% on 5 L daughter told medics patient always takes oxygen off. They gave a DuoNeb he came up to 87 she feels a little better she has been coughing with mucus production she had a recent admit for pneumonia unfortunately she has a carbapenem resistant Pseudomonas in her sputum. Patient says she has some chest pain history is overall limited by her ability to communicate difficult to understand due to trach Review of Systems Review of Systems Constitutional: Denies fever or chills [] Eyes: Denies change in visual acuity, redness, or eye pain [] HENT: Denies nasal congestion or sore throat [] Respiratory: Denies cough or shortness of breath [] Cardiovascular: No additional information not addressed in HPI [] GI: Denies abdominal pain, nausea, vomiting, bloody stools or diarrhea [] : Denies dysuria or hematuria [] Musculoskeletal: Denies back pain or joint pain [] Integument: Denies rash or skin lesions [] Neurologic: Denies headache, focal weakness or sensory changes [] Endocrine: Denies polyuria or polydipsia [] All other systems were reviewed and found to be within normal limits, except as documented in this note. Current Medications Current Medications Current Medications Medications (Trade) Dose Ordered Sig/Yuliana Start Time Stop Time Status Last Admin Dose Admin Albuterol/ Ipratropium (Duoneb) 3 ml 1X ONCE 12/13/18 10:30 12/13/18 10:31 DC 12/13/18 10:30 3 ML Furosemide (Lasix) 20 mg 1X ONCE 12/13/18 12:15 12/13/18 12:17 DC Sodium Chloride 500 ml @ 500 mls/hr 1X ONCE 12/13/18 10:30 12/13/18 11:29 DC 12/13/18 10:30 500 MLS/HR Vancomycin HCl (Vanco Per Pharmacy) 1 each PRN DAILY PRN 12/13/18 10:30 12/13/18 13:28 1 EACH Vancomycin HCl 1.25 gm/Sodium Chloride 250 ml @ 166.667 mls/hr 1X ONCE 12/13/18 10:45 12/13/18 12:14 DC 12/13/18 10:53 166.667 MLS/HR Allergies Allergies Allergies Coded Allergies Type Severity Reaction Last Updated Verified aspirin Allergy Intermediate hives 03/16/17 Yes I S O L A T I O N *CONTACT* Allergy Unknown 08/15/18 Yes Physical Exam Physical Exam Constitutional: Well developed cachectic and chronically ill-appearing HENT: Normocephalic, atraumatic, bilateral external ears normal, oropharynx moist, no oral exudates, nose normal. [] Eyes: PERRLA, EOMI, conjunctiva normal, no discharge. [] Neck: Normal range of motion, no tenderness, supple, no stridor. [] Cardiovascular:Heart rate regular rhythm, 3-6 murmur] Lungs & Thorax: Coarse bilateral breath sounds right greater than left Abdomen: Bowel sounds normal, soft, no tenderness, no masses, no pulsatile masses. [] Skin: Warm, dry, no erythema, no rash. [] Back: No tenderness, no CVA tenderness. [] Extremities: No tenderness, no cyanosis, no clubbing, ROM intact, no edema. [] Neurologic: Alert and oriented X 2 , normal sensory function, no focal deficits noted. []Patient has some cachexia decreased strength of her lower extremities appears to be baseline Psychologic: Difficult to assess Current Patient Data Vital Signs Vital Signs Date Time Temp Pulse Resp B/P (MAP) Pulse Ox O2 Delivery O2 Flow Rate FiO2 12/13/18 11:00 98.6 116 16 136/61 (86) 97 Room Air 12.0 98.6 Lab Values Laboratory Tests Test 12/13/18 11:17 White Blood Count 14.9 x10^3/uL (4.0-11.0) H Red Blood Count 4.04 x10^6/uL (3.50-5.40) Hemoglobin 8.9 g/dL (12.0-15.5) L Hematocrit 30.5 % (36.0-47.0) L Mean Corpuscular Volume 75 fL (79-100) L Mean Corpuscular Hemoglobin 22 pg (25-35) L Mean Corpuscular Hemoglobin Concent 29 g/dL (31-37) L Red Cell Distribution Width 18.3 % (11.5-14.5) H Platelet Count 460 x10^3/uL (140-400) H Neutrophils (%) (Auto) 86 % (31-73) H Lymphocytes (%) (Auto) 5 % (24-48) L Monocytes (%) (Auto) 6 % (0-9) Eosinophils (%) (Auto) 2 % (0-3) Basophils (%) (Auto) 1 % (0-3) Neutrophils # (Auto) 12.8 x10^3uL (1.8-7.7) H Lymphocytes # (Auto) 0.8 x10^3/uL (1.0-4.8) L Monocytes # (Auto) 0.9 x10^3/uL (0.0-1.1) Eosinophils # (Auto) 0.3 x10^3/uL (0.0-0.7) Basophils # (Auto) 0.1 x10^3/uL (0.0-0.2) Segmented Neutrophils % 79 % (35-66) H Band Neutrophils % 3 % (0-9) Lymphocytes % 11 % (24-48) L Monocytes % 4 % (0-10) Eosinophils % 1 % (0-5) Basophils % 2 % (0-3) Nucleated Red Blood Cells 1 Platelet Estimate Increased (ADEQUATE) Hypochromasia Mod Poikilocytosis Slight Anisocytosis Slight Microcytosis Slight Prothrombin Time 13.7 SEC (11.7-14.0) Prothrombin Time INR 1.1 (0.8-1.1) Sodium Level 144 mmol/L (136-145) Potassium Level 3.8 mmol/L (3.5-5.1) Chloride Level 103 mmol/L (98-107) Carbon Dioxide Level 32 mmol/L (21-32) Anion Gap 9 (6-14) Blood Urea Nitrogen 12 mg/dL (7-20) Creatinine 1.0 mg/dL (0.6-1.0) Estimated GFR (Cockcroft-Gault) 65.1 BUN/Creatinine Ratio 12 (6-20) Glucose Level 166 mg/dL (70-99) H Calcium Level 8.6 mg/dL (8.5-10.1) Magnesium Level 2.3 mg/dL (1.8-2.4) Total Bilirubin 0.2 mg/dL (0.2-1.0) Aspartate Amino Transferase (AST) 18 U/L (15-37) Alanine Aminotransferase (ALT) 13 U/L (14-59) L Alkaline Phosphatase 60 U/L (46-116) Troponin I Quantitative 0.151 ng/mL (0.000-0.055) RK-Qvi-E-Type Natriuretic Peptide 5955 pg/mL (0-449) H Total Protein 8.0 g/dL (6.4-8.2) Albumin 2.5 g/dL (3.4-5.0) L Albumin/Globulin Ratio 0.5 (1.0-1.7) L Procalcitonin 0.14 ng/mL (0.00-0.10) H Laboratory Tests 12/13/18 11:17 Laboratory Tests 12/13/18 11:17 EKG EKG []EKG shows sinus tachycardia rate of 111 no acute ischemic changes noted interpreted by me the time of encounter. There is some borderline ST depression laterally QTC is 458 Radiology/Procedures Radiology/Procedures [] Impressions: IMPRESSION: 1. Moderate prominent appearing bilateral interstitial lung markings could be interstitial infiltrates or edema slightly increased since prior exam. 2. Mild increase in patchy bilateral lung airspace opacities likely atelectasis or infiltrates. Electronically signed by: Frankie Farmer MD (12/13/2018 11:16 AM) [id number] Course & Med Decision Making Course & Med Decision Making Pertinent Labs and Imaging studies reviewed. (See chart for details) []Hypoxia likely recurrent or worsening pneumonia patient is chronically ill- appearing has very complex infectious disease history in the past we started off with blood cultures lactic acid as well as vancomycin. On further questioning apparently the patient's daughter tells me that she did take a dose of her IV antibiotics earlier this morning so we will hold off on any further antibiotics at this time. Of note patient also does have an elevated BNP and a borderline elevated slightly elevated troponin troponins have been ordered to be cycled inpatient pulmonary edema as a possibility. Patient has some possible rate-related ST changes on EKG but no acute STEMI was identified. lasix was given. i spoke with dr arnett for admit who advised pulm and cards consult which were placed. iv lasix ordered prior to transfer to floor. Dragon Disclaimer Dragon Disclaimer This electronic medical record was generated, in whole or in part, using a voice recognition dictation system. Departure Departure Impression: Primary Impression: Hypoxia Additional Impression: CHF (congestive heart failure) Disposition: 09 ADMITTED INPATIENT Admitting Physician: Randall Arnett Condition: GUARDED Referrals: CATHERINE MOSCOSO MD (PCP) Problem Qualifiers KELVIN PICHARDO MD Dec 13, 2018 10:33
[2018-12-13] MEDS ORDERED: VANCOMYCIN 1.25 GM in IV NORMAL SALINE 250ML 250 ML IV ONE (10:45)
--- NOTE | 2018-12-13 11:20 | RAD ---
EXAM: CHEST 1 VIEW History: Pneumonia COMPARISON: 12/07/2018 TECHNIQUE: Single portable radiograph of the chest FINDINGS: Tracheostomy tube is in place. Right-sided Port-A-Cath is in place. Moderate prominent appearing bilateral interstitial lung markings with scattered diffuse patchy airspace opacities again identified slightly increased since prior exam. IMPRESSION: 1. Moderate prominent appearing bilateral interstitial lung markings could be interstitial infiltrates or edema slightly increased since prior exam. 2. Mild increase in patchy bilateral lung airspace opacities likely atelectasis or infiltrates. Electronically signed by: Frankie Farmer MD (12/13/2018 11:16 AM) [id number]
[2018-12-13 11:37] LABS: BASO # 0.1 x10^3/uL (0.0-0.2); BASO % 1 % (0-3); EOS # 0.3 x10^3/uL (0.0-0.7); EOS % 2 % (0-3); HEMATOCRIT 30.5 % (36.0-47.0); HEMOGLOBIN 8.9 g/dL (12.0-15.5); LYMPH # 0.8 x10^3/uL (1.0-4.8); LYMPH % 5 % (24-48); MEAN CORPUSCULAR HEMOGLOBIN 22 pg (25-35); MEAN CORPUSCULAR HGB CONC 29 g/dL (31-37); MEAN CORPUSCULAR VOLUME 75 fL (79-100); MONO # 0.9 x10^3/uL (0.0-1.1); MONO % 6 % (0-9); NEUT # 12.8 x10^3uL (1.8-7.7); NEUT % 86 % (31-73); PLATELET COUNT 460 x10^3/uL (140-400); RED BLOOD COUNT 4.04 x10^6/uL (3.50-5.40); RED CELL DISTRIBUTION WIDTH 18.3 % (11.5-14.5); WHITE BLOOD COUNT 14.9 x10^3/uL (4.0-11.0)
[2018-12-13 11:44] LABS: PROTHROMBIN TIME PATIENT 13.7 SEC (11.7-14.0)
[2018-12-13 11:52] LABS: CALCIUM 8.6 mg/dL (8.5-10.1); GFR 65.1; POTASSIUM 3.8 mmol/L (3.5-5.1)
[2018-12-13 12:00] LABS: ALBUMIN 2.5 g/dL (3.4-5.0); ALBUMIN/GLOBULIN RATIO 0.5 (1.0-1.7); MAGNESIUM 2.3 mg/dL (1.8-2.4); TOTAL BILIRUBIN 0.2 mg/dL (0.2-1.0)
--- NOTE | 2018-12-13 12:07 | EKG ---
[facility] [address] [place] [address] Test Date: 2018-12-13 Test Time: 10:28:13 Pat Name: BERNARDO DE LEON Department: Room: Gender: F Manager Audio: WATSON : 1940 Requested By: KELVIN PICHARDO Order Number: [id number] Reading MD: Glen Dyson MD Measurements Intervals Laie Rate: 111 P: 8 KS: 158 QRS: -19 QRSD: 84 T: 68 QT: 334 QTc: 458 Interpretive Statements SINUS TACHYCARDIA NON-SPECIFIC ST/T CHANGES CONSIDER LVH Electronically Signed On 12-13-2018 15:07:38 CDT by Glne Dyson MD
[2018-12-13] MEDS ORDERED: FUROSEMIDE 20 MG/2 ML VIAL. IVP ONE (12:15)
--- NOTE | 2018-12-13 13:31 | NUR ---
Pharmacy Vancomycin Dosing Note S:Consulted to monitor and dose vancomycin started 12/13/18. O:BERNARDO DE LEON is a 78 year old F with HCAP . Height: 5 feet, 7 inches Weight: 49.304834 kg [place] Body Weight: 61.60 Adjusted Body Weight: 56.56 Dosing Weight: Other Antibiotics: NONE LABS: Last BUN: 12 Last Creatinine: 1 Creatinine Clearance: 36 mL/min Last WBC: 14.9 Last Procalcitonin: 0.14 Tmax (past 24 hours): 98.6 Microbiology: 12/13 BCX PENDING I/O: - Drug Levels: Last level: on at Last dose given 12/13/18 at 1100 Vancomycin Dosing: Loading Dose: 1250 mg x1 Dosing Weight: Target Trough: 15-20 A: Based on: WEIGHT, CRCL~36, DOSING ON PREVIOUS ADMISSIONS, P: 1. INITIATE Vancomycin 750 mg IV q12h AFTER 1250 MG LOADING DOSE, 2. Follow up Trough level on 12/14/18 at 1030 3. Pharmacy will continue to monitor, follow and adjust therapy as needed. [facility], 12/13/18 0168
[2018-12-13 13:44] LABS: % BANDS 3 % (0-9); % BASOS 2 % (0-3); % EOS 1 % (0-5); % LYMPHS 11 % (24-48); % MONOS 4 % (0-10); % SEGS 79 % (35-66); NUCLEATED RBC 1; PLT ESTIMATE INCREASED (ADEQUATE)
[2018-12-13 13:45] LABS: ANISOCYTOSIS SLIGHT; HYPOCHROMIA MOD; MICROCYTOSIS SLIGHT; POIKILOCYTOSIS SLIGHT
--- NOTE | 2018-12-13 13:45 | NUR ---
RN NOTE patient triggered positive sepsis ICU charge Mis notified. Dr. Arnett notified no new orders continue with plan of care. ID consulted and following
--- NOTE | 2018-12-13 13:57 | PDOC2 ---
CARDIAC CONSULT DATE OF CONSULT Date of Consult DATE: 12/13/18 TIME: 13:49 REASON FOR CONSULT Reason for Consult: Shortness of breath. REFERRING PHYSICIAN Referring Physician: Dr. Loza SOURCE Source: Chart review, Patient HISTORY OF PRESENT ILLNESS HISTORY OF PRESENT ILLNESS This is a 78 yo female who presented secondary to shortness of breath and hypoxia. Has chronic trach s/ p laryngeal CA. Is dysphagic with PEG. Lives at home with family. Is on continues O2. Family reports she is noncompliant with oxygen at home; takes oxygen off. Oxygen was noted in the 50's. EMS was called. Oxygen saturated improved with breathing treatment. Denies any chest pain, palpitations, dizziness, diaphoresis, or nausea/vomiting. Does report chronic cough with sputum production. Has history of recurrent pneumonia with multidrug- resistant Pseudomonas aeruginosa and MRSA. PAST MEDICAL HISTORY Past Medical History Cardiovascular: HTN Pulmonary: COPD, recurrent Pneumonia, Other (lung cancer) CENTRAL NERVOUS SYSTEM: Other GI: dysphagia, esophageal stricture Heme/Onc: Anemia NOS, laryngeal Cancer Hepatobiliary: No pertinent hx Psych: No pertinent hx Musculoskeletal: Osteoarthritis Rheumatologic: No pertinent hx Infectious disease: MRSA, C-diff, pseudomonas Renal/: No pertinent hx Endocrine: No pertinent hx PAST SURGICAL HISTORY Past Surgical History Cataract Removal, Other (laryngectomy, PEG placement, tracheostomy,), colostomy FAMILY HISTORY Family History: Heart Disease SOCIAL HISTORY Social History ALCOHOL: none Drugs: None CURRENT MEDICATIONS CURRENT MEDICATIONS Current Medications Medications (Trade) Dose Ordered Sig/Yuliana Route PRN Reason Start Time Stop Time Status Last Admin Dose Admin Albuterol/ Ipratropium (Duoneb) 3 ml 1X ONCE NEB 12/13/18 10:30 12/13/18 10:31 DC 12/13/18 10:30 Sodium Chloride 500 ml @ 500 mls/hr 1X ONCE IV 12/13/18 10:30 12/13/18 11:29 DC 12/13/18 10:30 Vancomycin HCl (Vanco Per Pharmacy) 1 each PRN DAILY PRN MC SEE COMMENTS 12/13/18 10:30 12/13/18 13:28 Vancomycin HCl 1.25 gm/Sodium Chloride 250 ml @ 166.667 mls/hr 1X ONCE IV 12/13/18 10:45 12/13/18 12:14 DC 12/13/18 10:53 ALLERGIES ALLERGIES: Coded Allergies: aspirin (Verified Allergy, Intermediate, hives, 7/3/17) I S O L A T I O N *CONTACT* (Verified Allergy, Unknown, 08/15/18) ROS Review of System 14 point ROS conducted with pertinent positives noted above in HPI. PHYSICAL EXAM PHYSICAL EXAM General: Drowsy, No acute distress HEENT: Atraumatic, Mucous membr. moist/pink Lungs: Other (basilar crackles, tracheostomy with trach shield) Heart: Regular rate (SR with first degree AV block), Other (2/6 systolic murmur to LLS border) Abdomen: Soft, No tenderness, Other (peg tube in place) Extremities: No cyanosis, No edema Skin: No breakdown, No significant lesion Neuro: Sensation intact Psych/Mental Status: Mental status NL MUSCULOSKELETAL: Osteoarthritic changes both hands VITALS VITALS Vital Signs Date Time Temp Pulse Resp B/P (MAP) Pulse Ox O2 Delivery O2 Flow Rate FiO2 12/13/18 12:58 99 139/65 (89) 100 12/13/18 11:00 98.6 16 Room Air 12.0 98.6 LABS Lab: Laboratory Tests Test 12/13/18 11:17 White Blood Count 14.9 x10^3/uL (4.0-11.0) Red Blood Count 4.04 x10^6/uL (3.50-5.40) Hemoglobin 8.9 g/dL (12.0-15.5) Hematocrit 30.5 % (36.0-47.0) Mean Corpuscular Volume 75 fL (79-100) Mean Corpuscular Hemoglobin 22 pg (25-35) Mean Corpuscular Hemoglobin Concent 29 g/dL (31-37) Red Cell Distribution Width 18.3 % (11.5-14.5) Platelet Count 460 x10^3/uL (140-400) Neutrophils (%) (Auto) 86 % (31-73) Lymphocytes (%) (Auto) 5 % (24-48) Monocytes (%) (Auto) 6 % (0-9) Eosinophils (%) (Auto) 2 % (0-3) Basophils (%) (Auto) 1 % (0-3) Neutrophils # (Auto) 12.8 x10^3uL (1.8-7.7) Lymphocytes # (Auto) 0.8 x10^3/uL (1.0-4.8) Monocytes # (Auto) 0.9 x10^3/uL (0.0-1.1) Eosinophils # (Auto) 0.3 x10^3/uL (0.0-0.7) Basophils # (Auto) 0.1 x10^3/uL (0.0-0.2) Segmented Neutrophils % 79 % (35-66) Band Neutrophils % 3 % (0-9) Lymphocytes % 11 % (24-48) Monocytes % 4 % (0-10) Eosinophils % 1 % (0-5) Basophils % 2 % (0-3) Nucleated Red Blood Cells 1 Platelet Estimate Increased (ADEQUATE) Hypochromasia Mod Poikilocytosis Slight Anisocytosis Slight Microcytosis Slight Prothrombin Time 13.7 SEC (11.7-14.0) Prothromb Time International Ratio 1.1 (0.8-1.1) Sodium Level 144 mmol/L (136-145) Potassium Level 3.8 mmol/L (3.5-5.1) Chloride Level 103 mmol/L (98-107) Carbon Dioxide Level 32 mmol/L (21-32) Anion Gap 9 (6-14) Blood Urea Nitrogen 12 mg/dL (7-20) Creatinine 1.0 mg/dL (0.6-1.0) Estimated GFR (Cockcroft-Gault) 65.1 BUN/Creatinine Ratio 12 (6-20) Glucose Level 166 mg/dL (70-99) Calcium Level 8.6 mg/dL (8.5-10.1) Magnesium Level 2.3 mg/dL (1.8-2.4) Total Bilirubin 0.2 mg/dL (0.2-1.0) Aspartate Amino Transf (AST/SGOT) 18 U/L (15-37) Alanine Aminotransferase (ALT/SGPT) 13 U/L (14-59) Alkaline Phosphatase 60 U/L (46-116) Troponin I Quantitative 0.151 ng/mL (0.000-0.055) KR-Hkl-N-Type Natriuretic Peptide 5955 pg/mL (0-449) Total Protein 8.0 g/dL (6.4-8.2) Albumin 2.5 g/dL (3.4-5.0) Albumin/Globulin Ratio 0.5 (1.0-1.7) Procalcitonin 0.14 ng/mL (0.00-0.10) ECHOCARDIOGRAM ECHOCARDIOGRAM <Conclusion> The left ventricle cavity is small. The left ventricle is hyperdynamic. LV ejection fraction is 60-65%. There is moderate concentric left ventricular hypertrophy. Doppler and Color Flow revealed trace aortic regurgitation. There is no significant aortic valvular stenosis. Doppler and Color Flow revealed trace mitral valve regurgitation. Doppler and Color Flow revealed mild tricuspid regurgitation. The PA pressure was estimated at 48 mmHg. DATE: 11/23/17 1551 <Conclusion> The left ventricle is normal size. The left ventricular systolic function is normal and the ejection fraction is within normal range. The Ejection Fraction is 60-65%. There is mild to moderate concentric left ventricular hypertrophy. There is no significant aortic valvular stenosis. Doppler and Color Flow revealed no significant aortic regurgitation. Doppler and Color-flow revealed mild mitral regurgitation. There is mild mitral valve stenosis. Doppler and Color Flow revealed mild tricuspid regurgitation. The PA pressure was estimated at 54 mmHg. DATE: 12/03/18 1159 STRESS TEST STRESS TEST Conclusion 1. Lexiscan nuclear stress test done without complications. 2. No EKG evidence of stress-induced ischemia. 3. Nuclear imaging shows no reversible ischemia or infarction. 4. Normal left ventricular systolic function with an ejection fraction of greater than 70%. 5. Low risk Lexiscan nuclear stress test. DATE: 12/05/13 0943 ASSESSMENT/PLAN ASSESSMENT/PLAN 1. Acute on chronic respiratory failure; multifactorial with recurrent pneumonia, COPD, and mild HF. CXR with infiltrates. 2. 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 ID consulted. 3. Leukocytosis, lactic acidosis 4. Mild troponin elevation; highest 0.168. Most probable type II, demand ischemia with above culprits. Recent with preserved LV function as noted above. Add ASA 5. Mild acute on chronic diastolic CHF. . Received IV Lasix x1 dose. Further diuresis PRN 6. Hypertension; elevated. Resume Norvasc. Hydralazine IV PRN 7. Hx of laryngeal CA and SCC with trach 8. Hx of dysphagia with PEG 9. Dementia ANUJ DUNCAN APRN Dec 13, 2018 13:57
[2018-12-13 14:00] VITALS: BP 156/74
--- NOTE | 2018-12-13 14:25 | NUR ---
The patient, BERNARDO DE LEON, 78 y/o, F admitted by SAMMY WILEY III, DO, was given written information regarding hospital policies, unit procedures and contact persons. Valuables were checked, trach shield in place, peg tube patent
[2018-12-13] MEDS ORDERED: C.DIFF MED SCREEN BY RX. MC ONE (14:45)
--- NOTE | 2018-12-13 14:48 | PDOC ---
PULMONARY PROGRESS NOTES Vitals Vital Signs Date Time Temp Pulse Resp B/P (MAP) Pulse Ox O2 Delivery O2 Flow Rate FiO2 12/13/18 14:00 97.5 107 18 156/74 (101) 79 Tracheal Collar 97.5 12/13/18 11:00 12.0 General: Alert, No acute distress Lungs: Crackles Cardiovascular: S1, S2 Abdomen: Soft, Non-tender Extremities: No Edema Labs Laboratory Tests Test 12/13/18 11:17 White Blood Count 14.9 x10^3/uL (4.0-11.0) Red Blood Count 4.04 x10^6/uL (3.50-5.40) Hemoglobin 8.9 g/dL (12.0-15.5) Hematocrit 30.5 % (36.0-47.0) Mean Corpuscular Volume 75 fL (79-100) Mean Corpuscular Hemoglobin 22 pg (25-35) Mean Corpuscular Hemoglobin Concent 29 g/dL (31-37) Red Cell Distribution Width 18.3 % (11.5-14.5) Platelet Count 460 x10^3/uL (140-400) Neutrophils (%) (Auto) 86 % (31-73) Lymphocytes (%) (Auto) 5 % (24-48) Monocytes (%) (Auto) 6 % (0-9) Eosinophils (%) (Auto) 2 % (0-3) Basophils (%) (Auto) 1 % (0-3) Neutrophils # (Auto) 12.8 x10^3uL (1.8-7.7) Lymphocytes # (Auto) 0.8 x10^3/uL (1.0-4.8) Monocytes # (Auto) 0.9 x10^3/uL (0.0-1.1) Eosinophils # (Auto) 0.3 x10^3/uL (0.0-0.7) Basophils # (Auto) 0.1 x10^3/uL (0.0-0.2) Segmented Neutrophils % 79 % (35-66) Band Neutrophils % 3 % (0-9) Lymphocytes % 11 % (24-48) Monocytes % 4 % (0-10) Eosinophils % 1 % (0-5) Basophils % 2 % (0-3) Nucleated Red Blood Cells 1 Platelet Estimate Increased (ADEQUATE) Hypochromasia Mod Poikilocytosis Slight Anisocytosis Slight Microcytosis Slight Prothrombin Time 13.7 SEC (11.7-14.0) Prothromb Time International Ratio 1.1 (0.8-1.1) Sodium Level 144 mmol/L (136-145) Potassium Level 3.8 mmol/L (3.5-5.1) Chloride Level 103 mmol/L (98-107) Carbon Dioxide Level 32 mmol/L (21-32) Anion Gap 9 (6-14) Blood Urea Nitrogen 12 mg/dL (7-20) Creatinine 1.0 mg/dL (0.6-1.0) Estimated GFR (Cockcroft-Gault) 65.1 BUN/Creatinine Ratio 12 (6-20) Glucose Level 166 mg/dL (70-99) Calcium Level 8.6 mg/dL (8.5-10.1) Magnesium Level 2.3 mg/dL (1.8-2.4) Total Bilirubin 0.2 mg/dL (0.2-1.0) Aspartate Amino Transf (AST/SGOT) 18 U/L (15-37) Alanine Aminotransferase (ALT/SGPT) 13 U/L (14-59) Alkaline Phosphatase 60 U/L (46-116) Troponin I Quantitative 0.151 ng/mL (0.000-0.055) TZ-Snd-R-Type Natriuretic Peptide 5955 pg/mL (0-449) Total Protein 8.0 g/dL (6.4-8.2) Albumin 2.5 g/dL (3.4-5.0) Albumin/Globulin Ratio 0.5 (1.0-1.7) Procalcitonin 0.14 ng/mL (0.00-0.10) Laboratory Tests Test 12/13/18 11:17 White Blood Count 14.9 x10^3/uL (4.0-11.0) Red Blood Count 4.04 x10^6/uL (3.50-5.40) Hemoglobin 8.9 g/dL (12.0-15.5) Hematocrit 30.5 % (36.0-47.0) Mean Corpuscular Volume 75 fL (79-100) Mean Corpuscular Hemoglobin 22 pg (25-35) Mean Corpuscular Hemoglobin Concent 29 g/dL (31-37) Red Cell Distribution Width 18.3 % (11.5-14.5) Platelet Count 460 x10^3/uL (140-400) Neutrophils (%) (Auto) 86 % (31-73) Lymphocytes (%) (Auto) 5 % (24-48) Monocytes (%) (Auto) 6 % (0-9) Eosinophils (%) (Auto) 2 % (0-3) Basophils (%) (Auto) 1 % (0-3) Neutrophils # (Auto) 12.8 x10^3uL (1.8-7.7) Lymphocytes # (Auto) 0.8 x10^3/uL (1.0-4.8) Monocytes # (Auto) 0.9 x10^3/uL (0.0-1.1) Eosinophils # (Auto) 0.3 x10^3/uL (0.0-0.7) Basophils # (Auto) 0.1 x10^3/uL (0.0-0.2) Segmented Neutrophils % 79 % (35-66) Band Neutrophils % 3 % (0-9) Lymphocytes % 11 % (24-48) Monocytes % 4 % (0-10) Eosinophils % 1 % (0-5) Basophils % 2 % (0-3) Nucleated Red Blood Cells 1 Platelet Estimate Increased (ADEQUATE) Hypochromasia Mod Poikilocytosis Slight Anisocytosis Slight Microcytosis Slight Prothrombin Time 13.7 SEC (11.7-14.0) Prothromb Time International Ratio 1.1 (0.8-1.1) Sodium Level 144 mmol/L (136-145) Potassium Level 3.8 mmol/L (3.5-5.1) Chloride Level 103 mmol/L (98-107) Carbon Dioxide Level 32 mmol/L (21-32) Anion Gap 9 (6-14) Blood Urea Nitrogen 12 mg/dL (7-20) Creatinine 1.0 mg/dL (0.6-1.0) Estimated GFR (Cockcroft-Gault) 65.1 BUN/Creatinine Ratio 12 (6-20) Glucose Level 166 mg/dL (70-99) Calcium Level 8.6 mg/dL (8.5-10.1) Magnesium Level 2.3 mg/dL (1.8-2.4) Total Bilirubin 0.2 mg/dL (0.2-1.0) Aspartate Amino Transf (AST/SGOT) 18 U/L (15-37) Alanine Aminotransferase (ALT/SGPT) 13 U/L (14-59) Alkaline Phosphatase 60 U/L (46-116) Troponin I Quantitative 0.151 ng/mL (0.000-0.055) GJ-Uju-Z-Type Natriuretic Peptide 5955 pg/mL (0-449) Total Protein 8.0 g/dL (6.4-8.2) Albumin 2.5 g/dL (3.4-5.0) Albumin/Globulin Ratio 0.5 (1.0-1.7) Procalcitonin 0.14 ng/mL (0.00-0.10) Medications Active Scripts Medications Dose Route/Sig Max Daily Dose Days Date Category Percocet 7.5-325 Mg Tablet (Oxycodone/Acetaminophen) 1 Each Tablet 1 Tab PO QID PRN MDD 1 12/09/18 Rx FENTANYL 50mcg/hr (Fentanyl) 1 Each Patch.td72 1 Patch TP Q3DAYS MDD 1 12/09/18 Rx Albuterol Sulfate Neb Soln (Albuterol Sulfate) 0.63 Mg/3 Ml Vial.neb 1 Vial NEB QID 12/02/18 Reported Gabapentin (Gabapentin) 300 Mg Capsule 300 Mg PO BID PRN 10/19/18 Reported Amlodipine Besylate 5 Mg Tablet 5 Mg PO DAILY 10/19/18 Reported Culturelle (Lactobacillus Rhamnosus Gg) 1 Each Cap.sprink 1 Cap PO BID 30 07/07/17 Rx Pantoprazole Sodium 40 Mg Tablet.dr 40 Mg PEG BID 03/11/17 Reported Donepezil Hcl 5 Mg Tablet 5 Mg PEG BID 03/11/17 Reported Reglan (Metoclopramide Hcl) 10 Mg Tablet 5 Mg PO QIDACHS 03/11/17 Reported Cyproheptadine Hcl 2 Mg/5 Ml Syrup 10 Ml PEG TID 03/11/17 Reported Ondansetron Odt (Ondansetron) 4 Mg Tab.rapdis 4 Mg PEG QIDPRN PRN 06/19/14 Reported Impression . full note dictated will continue the same id consulted thanks ANURAG LOO MD Dec 13, 2018 14:48
[2018-12-13] MEDS: oxyCODONE/APAP 7.5/325 1 TAB TABLET PO PRN ×2 (15:29→22:43)
[2018-12-13] MEDS: NORMAL SALINE IV SCH ×2 (15:30→22:43)
[2018-12-13] MEDS: CEFTOLOZANE IV SCH ×2 (15:30→22:43)
[2018-12-13] MEDS: amLODIPine BESYLATE 5 MG TABLET PO SCH (15:30)
[2018-12-13] MEDS: TAZOBACTAM IV SCH ×2 (15:30→22:43)
--- NOTE | 2018-12-13 16:10 | HP ---
ADMIT DATE: 12/13/2018 CHIEF COMPLAINT: Shortness of breath. HISTORY OF PRESENT ILLNESS: The patient is a pleasant 78-year-old female, very well known to our service, we admit her a couple of times a month. She has a chronic trach from lung cancer. She does not eat. She also has a PEG. Basically, she presented with shortness of breath and cough and wheezing and her oxygen levels began to desaturate. She normally lives at home with her family. They noticed that her oxygen saturation got into the 50s even. She was brought in by ambulance. We gave her some DuoNeb. That got her oxygen level up to 87. A chest x-ray is showing some vascular congestion, possible pneumonia. I have discussed the case with the ER physician. We are going to admit the patient and consult Cardiology and Pulmonary. It should be noted that her symptoms are rated at 7/10. She has associated anxiety and she tried increasing her home meds but that was not working. PAST MEDICAL HISTORY: Lung cancer, chronic trach, chronic PEG, dementia, hypertension, MRSA, previous pneumonia, cataract surgery, right chest wall port. ALLERGIES: ASPIRIN. FAMILY HISTORY: Coronary artery disease. SOCIAL HISTORY: She quit smoking, no drinking or drugs. She lives at home with her family. We have been trying to go to a correction, but she really refuses to go there and the family is actually doing a pretty good job at taking care of her, although she has a lot of medical issues, they seem to be able to cope with it at this time. MEDICATIONS: She is on donepezil, albuterol, amlodipine, fentanyl, Percocet, ondansetron PEG feeds, Reglan and Culturelle. REVIEW OF SYSTEMS: Unable to obtain. The patient cannot talk. PHYSICAL EXAMINATION: VITAL SIGNS: Temperature is afebrile, pulse 110, respirations 16, blood pressure 136/61, O2 sat currently at 97%, but she was on 12 liters on her trach collar. HEART: Distant S1, S2. LUNGS: Bibasilar crackles. ABDOMEN: Soft. There is a PEG in place. EXTREMITIES: No cyanosis, clubbing or edema. Pedal pulses are intact. ENDOCRINE: No thyromegaly. NECK: She does have a trach in place, it is clean. LYMPHATICS: No cervical nodes. HEMATOPOIETIC: No bruising. PSYCHIATRIC: She is a little depressed. LABORATORY DATA: Electrolytes are normal, but her BNP is high at 5955. Troponin is 0.151. INR 1.1. White count is 15, hemoglobin 8.9, platelets 460. Chest x-ray shows pneumonia and/or heart failure. ASSESSMENT AND PLAN: Respiratory failure, multifactorial including probable acute on chronic systolic and diastolic heart failure and pneumonia in an elderly female who has known lung cancer and a tracheostomy. She is being admitted. We will start IV antibiotics, DuoNebs, IV Lasix. DVT prophylaxis. Full code. Home meds, frequent labs, IV vancomycin, serial enzymes, serial EKGs, consider echocardiogram if Cardiology agrees, tracheostomy care, PT, OT. PROGNOSIS: Very guarded at best. TOTAL TIME: 32 minutes. SAMMY WILEY DO DR: KADE/sena JOB#: [id number] / [id number]
[2018-12-13] MEDS: ALBUTEROL SULFATE 2.5 MG/3 ML NEBU. NEB SCH ×2 (16:28→19:15)
[2018-12-13] MEDS ORDERED: NON FORMULARY ITEM (Albuterol Sulfate (Albuterol Sulfate Neb Soln) 1 VIAL) NEB SCH (17:00)
[2018-12-13] MEDS: LANSOPRAZOLE 30 MG TAB.RAP.DR PEG SCH (17:31)
[2018-12-13] MEDS: METOCLOPRAMIDE 10 MG TABLET. PO SCH ×2 (17:31→20:26)
[2018-12-13 19:50] VITALS: BP 151/81
[2018-12-13] MEDS: DONEPEZIL HCL 5 MG TABLET. PO SCH (20:26)
[2018-12-13] MEDS: LACTOBACILLUS RHAMNOSUS GG 1 CAPSULE. PO SCH (20:26)
[2018-12-13 22:40] VITALS: BP 152/74
[2018-12-13] MEDS ORDERED: VANCOMYCIN 1 GM in IV NORMAL SALINE 250ML 250 ML IV SCH (23:00)
[2018-12-13] MEDS ORDERED: VANCOMYCIN 750 MG in IV NORMAL SALINE 250ML 250 ML IV SCH (23:00)
--- NOTE | 2018-12-13 23:42 | NUR ---
Pt. deep suctioned and increased 02 to 12 liters per trach shield. O2 stats are 92% at this time.
[2018-12-14 02:35] VITALS: BP 161/80
[2018-12-14 04:23] LABS: CREATININE 0.7 mg/dL (0.6-1.0); GFR 98.2
[2018-12-14] MEDS: oxyCODONE/APAP 7.5/325 1 TAB TABLET PO PRN ×3 (04:47→17:46)
[2018-12-14] MEDS: TAZOBACTAM IV SCH ×2 (04:47→13:40)
[2018-12-14] MEDS: NORMAL SALINE IV SCH ×2 (04:47→13:40)
[2018-12-14] MEDS: CEFTOLOZANE IV SCH ×2 (04:47→13:40)
--- NOTE | 2018-12-14 06:47 | CONS ---
DATE OF CONSULTATION: 12/13/2018 ATTENDING PHYSICIAN: Randall Arnett DO. REASON FOR CONSULTATION: The patient seen in pulmonary consultation at the request of Dr. Arnett for acute on chronic respiratory failure. HISTORY OF PRESENT ILLNESS: The patient is a 78-year-old with chronic tracheostomy tube in place. She has also had carbapenem resistant Pseudomonas in her sputum. She represented with O2 saturations down to 50% on 5 liters. She was seen in the Emergency Room, given some breathing treatments and admitted. I was asked to see her in consultation. Chest x-ray was reviewed, which revealed some moderate prominent bilateral interstitial lung markings. She also had increased patchy airspace opacities in the bases. The patient complains of being slightly more short of breath the last week. She denies nausea, vomiting. PAST MEDICAL HISTORY: Chronic respiratory failure, lung cancer, history of laryngeal carcinoma, multidrug resistant Pseudomonas, history of MRSA pneumonia. PAST SURGICAL HISTORY: Status post PEG and trach. REVIEW OF SYSTEMS: Unobtainable secondary to the patient's condition. She did undergo bronchoscopy during the last hospitalization revealing no mucus plugging. BAL final culture revealed Pseudomonas resistant to imipenem. The patient was discharged home on Zerbaxa. PHYSICAL EXAMINATION: GENERAL: She did not appear to be in any respiratory distress. VITAL SIGNS: Stable. O2 saturation was greater than 92%. HEENT: Eyes: The sclerae were nonicteric. NECK: Jugular venous distention could not be assessed. LUNGS: Bilateral crackles, no wheezes. CARDIOVASCULAR: Regular rate and rhythm with S1, S2, no S3. ABDOMEN: Soft, nontender, nondistended. EXTREMITIES: No clubbing, cyanosis or pitting edema. Chest x-ray was reviewed. LABORATORY DATA: Reviewed. White count was elevated. Hemoglobin and hematocrit were noted. IMPRESSION: 1. Acute on chronic respiratory failure. 2. 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 3. Abnormal x-ray, possible new pneumonia. 4. Status post trach and PEG. 5. History of laryngeal carcinoma. PLAN: 1. The patient was discharged home on Zerbaxa, we will await Infectious Disease Service input for antibiotic coverage. 2. Respiratory status is compensated. At this time, we will continue oxygen supplementation. 3. Continue home meds. I do appreciate the privilege in sharing in the patient's care. ANURAG LOO MD DR: Sujata JOB#: [id number] / [id number]
[2018-12-14 07:00] VITALS: BP 196/86
[2018-12-14] MEDS: ALBUTEROL SULFATE 2.5 MG/3 ML NEBU. NEB SCH ×4 (07:46→20:00)
[2018-12-14] MEDS ORDERED: ASPIRIN ENTERIC COATED 81 MG TABLET.DR. PO SCH (08:00)
[2018-12-14] MEDS: amLODIPine BESYLATE 5 MG TABLET PO SCH (08:12)
[2018-12-14] MEDS: METOCLOPRAMIDE 10 MG TABLET. PO SCH ×4 (08:12→21:36)
[2018-12-14] MEDS: DONEPEZIL HCL 5 MG TABLET. PO SCH ×2 (08:13→21:36)
[2018-12-14] MEDS: GABAPENTIN 300 MG CAPSULE. PO PRN (08:14)
[2018-12-14] MEDS: LACTOBACILLUS RHAMNOSUS GG 1 CAPSULE. PO SCH ×2 (08:14→21:36)
[2018-12-14] MEDS: LANSOPRAZOLE 30 MG TAB.RAP.DR PEG SCH ×2 (08:15→17:46)
--- NOTE | 2018-12-14 08:17 | PDOC ---
Infectious Disease Note Vital Sign Vital Signs Vital Signs Date Time Temp Pulse Resp B/P (MAP) Pulse Ox O2 Delivery O2 Flow Rate FiO2 12/14/18 07:47 100 Tracheal Collar 10.0 12/14/18 07:00 98.0 107 18 196/86 (122) 98.0 Labs Lab Laboratory Tests Test 12/13/18 11:17 12/13/18 15:00 12/13/18 18:30 12/14/18 03:20 White Blood Count 14.9 x10^3/uL (4.0-11.0) Red Blood Count 4.04 x10^6/uL (3.50-5.40) Hemoglobin 8.9 g/dL (12.0-15.5) Hematocrit 30.5 % (36.0-47.0) Mean Corpuscular Volume 75 fL (79-100) Mean Corpuscular Hemoglobin 22 pg (25-35) Mean Corpuscular Hemoglobin Concent 29 g/dL (31-37) Red Cell Distribution Width 18.3 % (11.5-14.5) Platelet Count 460 x10^3/uL (140-400) Neutrophils (%) (Auto) 86 % (31-73) Lymphocytes (%) (Auto) 5 % (24-48) Monocytes (%) (Auto) 6 % (0-9) Eosinophils (%) (Auto) 2 % (0-3) Basophils (%) (Auto) 1 % (0-3) Neutrophils # (Auto) 12.8 x10^3uL (1.8-7.7) Lymphocytes # (Auto) 0.8 x10^3/uL (1.0-4.8) Monocytes # (Auto) 0.9 x10^3/uL (0.0-1.1) Eosinophils # (Auto) 0.3 x10^3/uL (0.0-0.7) Basophils # (Auto) 0.1 x10^3/uL (0.0-0.2) Segmented Neutrophils % 79 % (35-66) Band Neutrophils % 3 % (0-9) Lymphocytes % 11 % (24-48) Monocytes % 4 % (0-10) Eosinophils % 1 % (0-5) Basophils % 2 % (0-3) Nucleated Red Blood Cells 1 Platelet Estimate Increased (ADEQUATE) Hypochromasia Mod Poikilocytosis Slight Anisocytosis Slight Microcytosis Slight Prothrombin Time 13.7 SEC (11.7-14.0) Prothromb Time International Ratio 1.1 (0.8-1.1) Sodium Level 144 mmol/L (136-145) Potassium Level 3.8 mmol/L (3.5-5.1) Chloride Level 103 mmol/L (98-107) Carbon Dioxide Level 32 mmol/L (21-32) Anion Gap 9 (6-14) Blood Urea Nitrogen 12 mg/dL (7-20) Creatinine 1.0 mg/dL (0.6-1.0) 0.7 mg/dL (0.6-1.0) Estimated GFR (Cockcroft-Gault) 65.1 98.2 BUN/Creatinine Ratio 12 (6-20) Glucose Level 166 mg/dL (70-99) Lactic Acid Level 2.8 mmol/L (0.4-2.0) Calcium Level 8.6 mg/dL (8.5-10.1) Magnesium Level 2.3 mg/dL (1.8-2.4) Total Bilirubin 0.2 mg/dL (0.2-1.0) Aspartate Amino Transf (AST/SGOT) 18 U/L (15-37) Alanine Aminotransferase (ALT/SGPT) 13 U/L (14-59) Alkaline Phosphatase 60 U/L (46-116) Troponin I Quantitative 0.151 ng/mL (0.000-0.055) 0.168 ng/mL (0.000-0.055) 0.152 ng/mL (0.000-0.055) SV-Tcd-G-Type Natriuretic Peptide 5955 pg/mL (0-449) Total Protein 8.0 g/dL (6.4-8.2) Albumin 2.5 g/dL (3.4-5.0) Albumin/Globulin Ratio 0.5 (1.0-1.7) Procalcitonin 0.14 ng/mL (0.00-0.10) Objective Assessment Acute Resp failure - better. ? plug Leukocytosis - ? reactive Lactic acidosis Elevated troponin H/o MDR pseudomonas - ? colonization HTN Plan Plan of Care Cont zerbaxa - clinically she looks well CBC/lactic this am F/u labs and cults Thank you # [id number] GWEN MCQUEEN MD Dec 14, 2018 08:17
[2018-12-14 08:31] LABS: BASO % 0 % (0-3); EOS # 0.4 x10^3/uL (0.0-0.7); EOS % 3 % (0-3); HEMATOCRIT 28.9 % (36.0-47.0); HEMOGLOBIN 8.6 g/dL (12.0-15.5); LYMPH # 2.1 x10^3/uL (1.0-4.8); LYMPH % 18 % (24-48); MEAN CORPUSCULAR HEMOGLOBIN 23 pg (25-35); MEAN CORPUSCULAR HGB CONC 30 g/dL (31-37); MEAN CORPUSCULAR VOLUME 75 fL (79-100); MONO # 0.8 x10^3/uL (0.0-1.1); MONO % 7 % (0-9); NEUT # 8.9 x10^3uL (1.8-7.7); NEUT % 73 % (31-73); PLATELET COUNT 438 x10^3/uL (140-400); RED BLOOD COUNT 3.83 x10^6/uL (3.50-5.40); RED CELL DISTRIBUTION WIDTH 18.8 % (11.5-14.5); WHITE BLOOD COUNT 12.2 x10^3/uL (4.0-11.0)
[2018-12-14] MEDS: fentaNYL 50MCG/HR PATCH 1 PATCH PATCH.TD72 TD SCH (08:34)
--- NOTE | 2018-12-14 09:34 | NUR ---
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 Most recent is a bronchwash on 12/08/18. Pt to be in contact precautions with addition of droplet if inducing a sputum, suctioning or intubating the patient.
[2018-12-14 11:00] VITALS: BP 158/67
--- NOTE | 2018-12-14 11:54 | PDOC ---
CARDIO Progress Notes Date and Time Date of Service 12/14/2018 Time of Evaluation 1120 Subjective Subjective: No Chest Pain, No shortness of breath, No Palpitations Vitals Vitals Vital Signs Date Time Temp Pulse Resp B/P (MAP) Pulse Ox O2 Delivery O2 Flow Rate FiO2 12/14/18 11:25 Tracheal Collar 10.0 12/14/18 11:00 97.5 158/67 (97) 97.5 12/14/18 08:12 107 12/14/18 07:47 100 12/14/18 07:00 18 Weight Weight [ ] Input and Output Intake and Output Intake and Output 12/14/18 07:00 Intake Total 1930 ml Output Total 1700 ml Balance 230 ml Intake Oral 0 ml IV Total 200 ml Tube Feeding 1360 ml Other 370 ml Output Urine Total 1700 ml Laboratory Labs Laboratory Tests Test 12/13/18 15:00 12/13/18 18:30 12/14/18 03:20 Troponin I Quantitative 0.168 ng/mL (0.000-0.055) 0.152 ng/mL (0.000-0.055) White Blood Count 12.2 x10^3/uL (4.0-11.0) Red Blood Count 3.83 x10^6/uL (3.50-5.40) Hemoglobin 8.6 g/dL (12.0-15.5) Hematocrit 28.9 % (36.0-47.0) Mean Corpuscular Volume 75 fL (79-100) Mean Corpuscular Hemoglobin 23 pg (25-35) Mean Corpuscular Hemoglobin Concent 30 g/dL (31-37) Red Cell Distribution Width 18.8 % (11.5-14.5) Platelet Count 438 x10^3/uL (140-400) Neutrophils (%) (Auto) 73 % (31-73) Lymphocytes (%) (Auto) 18 % (24-48) Monocytes (%) (Auto) 7 % (0-9) Eosinophils (%) (Auto) 3 % (0-3) Basophils (%) (Auto) 0 % (0-3) Neutrophils # (Auto) 8.9 x10^3uL (1.8-7.7) Lymphocytes # (Auto) 2.1 x10^3/uL (1.0-4.8) Monocytes # (Auto) 0.8 x10^3/uL (0.0-1.1) Eosinophils # (Auto) 0.4 x10^3/uL (0.0-0.7) Basophils # (Auto) 0.0 x10^3/uL (0.0-0.2) Creatinine 0.7 mg/dL (0.6-1.0) Estimated GFR (Cockcroft-Gault) 98.2 Microbiology Micro Microbiology 12/13/18 Blood Culture - Preliminary, Resulted NO GROWTH AFTER 1 DAY Physical Exam HEENT: Neck Supple W Full Motion Chest: Symmetric LUNGS: Other (basilar crackles; trac in place with O2) Heart: RRR (SR) Abdomen: Soft N/T Extremities: No Edema, No Calf Tenderness Neurology: alert, follow commands Assessment Assessment 1. Acute on chronic respiratory failure; multifactorial with recurrent pneumonia, COPD, and mild CHF. appears better 2. 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 ID and pulmonary following 3. Leukocytosis, lactic acidosis 4. Mild troponin elevation; highest 0.168, type 2 demand mediated. EF and WM nml with moderate pulmonary HTN. CP free, SR no ectopies 5. Mild acute on chronic diastolic CHF: compensated 6. Hypertension; labile episodes 7. Hx of laryngeal CA and SCC with trach 8. Hx of dysphagia with PEG with TF 9. Dementia Recommendations 1. Lasix PRN. Increase. Norvasc Hydralazine IV PRN 2. Nothing further cardiac locke. Will follow along peripherally KRISHAN LAZO APRN Dec 14, 2018 11:54
[2018-12-14] MEDS ORDERED: FUROSEMIDE 20 MG/2 ML VIAL. IVP ONE (12:00)
[2018-12-14] MEDS ORDERED: amLODIPine BESYLATE 5 MG TABLET PO ONE (12:00)
[2018-12-14] MEDS ORDERED: hydrALAZINE 20 MG/ML VIAL. IVP PRN (12:00)
--- NOTE | 2018-12-14 12:17 | PDOC ---
PULMONARY PROGRESS NOTES Subjective increase trach secretions Vitals Vital Signs Date Time Temp Pulse Resp B/P (MAP) Pulse Ox O2 Delivery O2 Flow Rate FiO2 12/14/18 11:44 95 Tracheal Collar 12.0 12/14/18 11:00 97.5 158/67 (97) 97.5 12/14/18 08:12 107 12/14/18 07:00 18 General: Alert, No acute distress Lungs: Other (rhonchi) Cardiovascular: S1, S2 Abdomen: Soft, Non-tender Neuro Exam: Alert Extremities: No Edema Skin: Warm Labs Laboratory Tests Test 12/13/18 11:17 12/13/18 15:00 12/13/18 18:30 12/14/18 03:20 White Blood Count 14.9 x10^3/uL (4.0-11.0) 12.2 x10^3/uL (4.0-11.0) Red Blood Count 4.04 x10^6/uL (3.50-5.40) 3.83 x10^6/uL (3.50-5.40) Hemoglobin 8.9 g/dL (12.0-15.5) 8.6 g/dL (12.0-15.5) Hematocrit 30.5 % (36.0-47.0) 28.9 % (36.0-47.0) Mean Corpuscular Volume 75 fL (79-100) 75 fL (79-100) Mean Corpuscular Hemoglobin 22 pg (25-35) 23 pg (25-35) Mean Corpuscular Hemoglobin Concent 29 g/dL (31-37) 30 g/dL (31-37) Red Cell Distribution Width 18.3 % (11.5-14.5) 18.8 % (11.5-14.5) Platelet Count 460 x10^3/uL (140-400) 438 x10^3/uL (140-400) Neutrophils (%) (Auto) 86 % (31-73) 73 % (31-73) Lymphocytes (%) (Auto) 5 % (24-48) 18 % (24-48) Monocytes (%) (Auto) 6 % (0-9) 7 % (0-9) Eosinophils (%) (Auto) 2 % (0-3) 3 % (0-3) Basophils (%) (Auto) 1 % (0-3) 0 % (0-3) Neutrophils # (Auto) 12.8 x10^3uL (1.8-7.7) 8.9 x10^3uL (1.8-7.7) Lymphocytes # (Auto) 0.8 x10^3/uL (1.0-4.8) 2.1 x10^3/uL (1.0-4.8) Monocytes # (Auto) 0.9 x10^3/uL (0.0-1.1) 0.8 x10^3/uL (0.0-1.1) Eosinophils # (Auto) 0.3 x10^3/uL (0.0-0.7) 0.4 x10^3/uL (0.0-0.7) Basophils # (Auto) 0.1 x10^3/uL (0.0-0.2) 0.0 x10^3/uL (0.0-0.2) Segmented Neutrophils % 79 % (35-66) Band Neutrophils % 3 % (0-9) Lymphocytes % 11 % (24-48) Monocytes % 4 % (0-10) Eosinophils % 1 % (0-5) Basophils % 2 % (0-3) Nucleated Red Blood Cells 1 Platelet Estimate Increased (ADEQUATE) Hypochromasia Mod Poikilocytosis Slight Anisocytosis Slight Microcytosis Slight Prothrombin Time 13.7 SEC (11.7-14.0) Prothromb Time International Ratio 1.1 (0.8-1.1) Sodium Level 144 mmol/L (136-145) Potassium Level 3.8 mmol/L (3.5-5.1) Chloride Level 103 mmol/L (98-107) Carbon Dioxide Level 32 mmol/L (21-32) Anion Gap 9 (6-14) Blood Urea Nitrogen 12 mg/dL (7-20) Creatinine 1.0 mg/dL (0.6-1.0) 0.7 mg/dL (0.6-1.0) Estimated GFR (Cockcroft-Gault) 65.1 98.2 BUN/Creatinine Ratio 12 (6-20) Glucose Level 166 mg/dL (70-99) Lactic Acid Level 2.8 mmol/L (0.4-2.0) Calcium Level 8.6 mg/dL (8.5-10.1) Magnesium Level 2.3 mg/dL (1.8-2.4) Total Bilirubin 0.2 mg/dL (0.2-1.0) Aspartate Amino Transf (AST/SGOT) 18 U/L (15-37) Alanine Aminotransferase (ALT/SGPT) 13 U/L (14-59) Alkaline Phosphatase 60 U/L (46-116) Troponin I Quantitative 0.151 ng/mL (0.000-0.055) 0.168 ng/mL (0.000-0.055) 0.152 ng/mL (0.000-0.055) HM-Dkb-I-Type Natriuretic Peptide 5955 pg/mL (0-449) Total Protein 8.0 g/dL (6.4-8.2) Albumin 2.5 g/dL (3.4-5.0) Albumin/Globulin Ratio 0.5 (1.0-1.7) Procalcitonin 0.14 ng/mL (0.00-0.10) Test 12/14/18 11:03 Lactic Acid Level 1.3 mmol/L (0.4-2.0) Laboratory Tests Test 12/13/18 15:00 12/13/18 18:30 12/14/18 03:20 12/14/18 11:03 Troponin I Quantitative 0.168 ng/mL (0.000-0.055) 0.152 ng/mL (0.000-0.055) White Blood Count 12.2 x10^3/uL (4.0-11.0) Red Blood Count 3.83 x10^6/uL (3.50-5.40) Hemoglobin 8.6 g/dL (12.0-15.5) Hematocrit 28.9 % (36.0-47.0) Mean Corpuscular Volume 75 fL (79-100) Mean Corpuscular Hemoglobin 23 pg (25-35) Mean Corpuscular Hemoglobin Concent 30 g/dL (31-37) Red Cell Distribution Width 18.8 % (11.5-14.5) Platelet Count 438 x10^3/uL (140-400) Neutrophils (%) (Auto) 73 % (31-73) Lymphocytes (%) (Auto) 18 % (24-48) Monocytes (%) (Auto) 7 % (0-9) Eosinophils (%) (Auto) 3 % (0-3) Basophils (%) (Auto) 0 % (0-3) Neutrophils # (Auto) 8.9 x10^3uL (1.8-7.7) Lymphocytes # (Auto) 2.1 x10^3/uL (1.0-4.8) Monocytes # (Auto) 0.8 x10^3/uL (0.0-1.1) Eosinophils # (Auto) 0.4 x10^3/uL (0.0-0.7) Basophils # (Auto) 0.0 x10^3/uL (0.0-0.2) Creatinine 0.7 mg/dL (0.6-1.0) Estimated GFR (Cockcroft-Gault) 98.2 Lactic Acid Level 1.3 mmol/L (0.4-2.0) Medications Active Scripts Medications Dose Route/Sig Max Daily Dose Days Date Category Percocet 7.5-325 Mg Tablet (Oxycodone/Acetaminophen) 1 Each Tablet 1 Tab PO QID PRN MDD 1 12/09/18 Rx FENTANYL 50mcg/hr (Fentanyl) 1 Each Patch.td72 1 Patch TP Q3DAYS MDD 1 12/09/18 Rx Albuterol Sulfate Neb Soln (Albuterol Sulfate) 0.63 Mg/3 Ml Vial.neb 1 Vial NEB QID 12/02/18 Reported Gabapentin (Gabapentin) 300 Mg Capsule 300 Mg PO BID PRN 10/19/18 Reported Amlodipine Besylate 5 Mg Tablet 5 Mg PO DAILY 10/19/18 Reported Culturelle (Lactobacillus Rhamnosus Gg) 1 Each Cap.sprink 1 Cap PO BID 30 07/07/17 Rx Pantoprazole Sodium 40 Mg Tablet.dr 40 Mg PEG BID 03/11/17 Reported Donepezil Hcl 5 Mg Tablet 5 Mg PEG BID 03/11/17 Reported Reglan (Metoclopramide Hcl) 10 Mg Tablet 5 Mg PO QIDACHS 03/11/17 Reported Cyproheptadine Hcl 2 Mg/5 Ml Syrup 10 Ml PEG TID 03/11/17 Reported Ondansetron Odt (Ondansetron) 4 Mg Tab.rapdis 4 Mg PEG QIDPRN PRN 06/19/14 Reported Impression . 1. Acute on chronic respiratory failure. 2. 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 3. Abnormal x-ray, possible new pneumonia. 4. Status post trach and PEG. 5. History of laryngeal carcinoma. Plan . 1. The patient was discharged home on Zerbaxa, Follow Infectious Disease Service input for antibiotic coverage. 2. Respiratory status is compensated. At this time, we will continue oxygen supplementation. 3. Continue home meds. 4. PRN Trach suction 5. repeat sputum for c/s d/w MARY Sebastian MD Dec 14, 2018 12:17
--- NOTE | 2018-12-14 12:41 | NUR ---
SS following for discharge planning. SS reviewed pt chart. Pt is from home with family and is currently on services with [facility], ; fax [phone]. Pt is also on services with [facility] for IV antibiotics at home. Pt has all needed trach and oxygen equipment at home. SS will continue to follow for discharge planning.
[2018-12-14] MEDS ORDERED: ALTEPLASE 1MG SYRINGE. INT CAT ONE (13:15)
--- NOTE | 2018-12-14 14:43 | PDOC ---
PROGRESS NOTES Chief Complaint Chief Complaint Assessment and plan Acute on chronic respiratory failure; multifactorial with recurrent pneumonia, COPD, and mild CHF. appears better H/o recurrent pneumonia with multidrug-resistant Pseudomonas and MRSA. ID and pulmonary following Leukocytosis, which seems to be reactive Elevated troponin; highest 0.168, type 2 secondary to demand mediated. EF and WM nml with moderate pulmonary HTN. Acute on chronic diastolic CHF: compensated Hypertension; labile episodes Hx of laryngeal CA and SCC with trach Hx of dysphagia with PEG with TF Dementia Continue with current antibiotics We'll follow recommendations from consultants Patient seems to be at baseline and seems to be stable from the medical standpoint of view Fluid discharge soon History of Present Illness History of Present Illness Patient with no acute events reported overnight. The patient responds to verbal stimuli and she seems to be quite happy when I mentioned discharge from the hospital. Unable to have a conversation due to tracheostomy but she does seem to understand and participates in the interaction Vitals Vitals Vital Signs Date Time Temp Pulse Resp B/P (MAP) Pulse Ox O2 Delivery O2 Flow Rate FiO2 12/14/18 14:29 97 Tracheal Collar 15.0 12/14/18 13:39 107 158/67 12/14/18 11:00 97.5 97.5 12/14/18 07:00 18 Physical Exam General: Alert, Cooperative, No acute distress Heart: Regular rate, Normal S1, Normal S2, Other (tachycardic) Lungs: Clear, Other (rhonchi) Abdomen: Normal bowel sounds, Soft Extremities: No clubbing, No cyanosis Skin: No rashes Labs LABS Laboratory Tests Test 12/13/18 15:00 12/13/18 18:30 12/14/18 03:20 12/14/18 11:03 Troponin I Quantitative 0.168 ng/mL (0.000-0.055) 0.152 ng/mL (0.000-0.055) White Blood Count 12.2 x10^3/uL (4.0-11.0) Red Blood Count 3.83 x10^6/uL (3.50-5.40) Hemoglobin 8.6 g/dL (12.0-15.5) Hematocrit 28.9 % (36.0-47.0) Mean Corpuscular Volume 75 fL (79-100) Mean Corpuscular Hemoglobin 23 pg (25-35) Mean Corpuscular Hemoglobin Concent 30 g/dL (31-37) Red Cell Distribution Width 18.8 % (11.5-14.5) Platelet Count 438 x10^3/uL (140-400) Neutrophils (%) (Auto) 73 % (31-73) Lymphocytes (%) (Auto) 18 % (24-48) Monocytes (%) (Auto) 7 % (0-9) Eosinophils (%) (Auto) 3 % (0-3) Basophils (%) (Auto) 0 % (0-3) Neutrophils # (Auto) 8.9 x10^3uL (1.8-7.7) Lymphocytes # (Auto) 2.1 x10^3/uL (1.0-4.8) Monocytes # (Auto) 0.8 x10^3/uL (0.0-1.1) Eosinophils # (Auto) 0.4 x10^3/uL (0.0-0.7) Basophils # (Auto) 0.0 x10^3/uL (0.0-0.2) Creatinine 0.7 mg/dL (0.6-1.0) Estimated GFR (Cockcroft-Gault) 98.2 Lactic Acid Level 1.3 mmol/L (0.4-2.0) Review of Systems Review of Systems Pertinent as per history of present illness otherwise negative Comment Review of Relevant I have reviewed the following items miko (where applicable) has been applied. Labs Laboratory Tests Test 12/13/18 11:17 12/13/18 15:00 12/13/18 18:30 12/14/18 03:20 White Blood Count 14.9 x10^3/uL (4.0-11.0) 12.2 x10^3/uL (4.0-11.0) Red Blood Count 4.04 x10^6/uL (3.50-5.40) 3.83 x10^6/uL (3.50-5.40) Hemoglobin 8.9 g/dL (12.0-15.5) 8.6 g/dL (12.0-15.5) Hematocrit 30.5 % (36.0-47.0) 28.9 % (36.0-47.0) Mean Corpuscular Volume 75 fL (79-100) 75 fL (79-100) Mean Corpuscular Hemoglobin 22 pg (25-35) 23 pg (25-35) Mean Corpuscular Hemoglobin Concent 29 g/dL (31-37) 30 g/dL (31-37) Red Cell Distribution Width 18.3 % (11.5-14.5) 18.8 % (11.5-14.5) Platelet Count 460 x10^3/uL (140-400) 438 x10^3/uL (140-400) Neutrophils (%) (Auto) 86 % (31-73) 73 % (31-73) Lymphocytes (%) (Auto) 5 % (24-48) 18 % (24-48) Monocytes (%) (Auto) 6 % (0-9) 7 % (0-9) Eosinophils (%) (Auto) 2 % (0-3) 3 % (0-3) Basophils (%) (Auto) 1 % (0-3) 0 % (0-3) Neutrophils # (Auto) 12.8 x10^3uL (1.8-7.7) 8.9 x10^3uL (1.8-7.7) Lymphocytes # (Auto) 0.8 x10^3/uL (1.0-4.8) 2.1 x10^3/uL (1.0-4.8) Monocytes # (Auto) 0.9 x10^3/uL (0.0-1.1) 0.8 x10^3/uL (0.0-1.1) Eosinophils # (Auto) 0.3 x10^3/uL (0.0-0.7) 0.4 x10^3/uL (0.0-0.7) Basophils # (Auto) 0.1 x10^3/uL (0.0-0.2) 0.0 x10^3/uL (0.0-0.2) Segmented Neutrophils % 79 % (35-66) Band Neutrophils % 3 % (0-9) Lymphocytes % 11 % (24-48) Monocytes % 4 % (0-10) Eosinophils % 1 % (0-5) Basophils % 2 % (0-3) Nucleated Red Blood Cells 1 Platelet Estimate Increased (ADEQUATE) Hypochromasia Mod Poikilocytosis Slight Anisocytosis Slight Microcytosis Slight Prothrombin Time 13.7 SEC (11.7-14.0) Prothromb Time International Ratio 1.1 (0.8-1.1) Sodium Level 144 mmol/L (136-145) Potassium Level 3.8 mmol/L (3.5-5.1) Chloride Level 103 mmol/L (98-107) Carbon Dioxide Level 32 mmol/L (21-32) Anion Gap 9 (6-14) Blood Urea Nitrogen 12 mg/dL (7-20) Creatinine 1.0 mg/dL (0.6-1.0) 0.7 mg/dL (0.6-1.0) Estimated GFR (Cockcroft-Gault) 65.1 98.2 BUN/Creatinine Ratio 12 (6-20) Glucose Level 166 mg/dL (70-99) Lactic Acid Level 2.8 mmol/L (0.4-2.0) Calcium Level 8.6 mg/dL (8.5-10.1) Magnesium Level 2.3 mg/dL (1.8-2.4) Total Bilirubin 0.2 mg/dL (0.2-1.0) Aspartate Amino Transf (AST/SGOT) 18 U/L (15-37) Alanine Aminotransferase (ALT/SGPT) 13 U/L (14-59) Alkaline Phosphatase 60 U/L (46-116) Troponin I Quantitative 0.151 ng/mL (0.000-0.055) 0.168 ng/mL (0.000-0.055) 0.152 ng/mL (0.000-0.055) RW-Nnq-E-Type Natriuretic Peptide 5955 pg/mL (0-449) Total Protein 8.0 g/dL (6.4-8.2) Albumin 2.5 g/dL (3.4-5.0) Albumin/Globulin Ratio 0.5 (1.0-1.7) Procalcitonin 0.14 ng/mL (0.00-0.10) Test 12/14/18 11:03 Lactic Acid Level 1.3 mmol/L (0.4-2.0) Laboratory Tests Test 12/13/18 15:00 12/13/18 18:30 12/14/18 03:20 12/14/18 11:03 Troponin I Quantitative 0.168 ng/mL (0.000-0.055) 0.152 ng/mL (0.000-0.055) White Blood Count 12.2 x10^3/uL (4.0-11.0) Red Blood Count 3.83 x10^6/uL (3.50-5.40) Hemoglobin 8.6 g/dL (12.0-15.5) Hematocrit 28.9 % (36.0-47.0) Mean Corpuscular Volume 75 fL (79-100) Mean Corpuscular Hemoglobin 23 pg (25-35) Mean Corpuscular Hemoglobin Concent 30 g/dL (31-37) Red Cell Distribution Width 18.8 % (11.5-14.5) Platelet Count 438 x10^3/uL (140-400) Neutrophils (%) (Auto) 73 % (31-73) Lymphocytes (%) (Auto) 18 % (24-48) Monocytes (%) (Auto) 7 % (0-9) Eosinophils (%) (Auto) 3 % (0-3) Basophils (%) (Auto) 0 % (0-3) Neutrophils # (Auto) 8.9 x10^3uL (1.8-7.7) Lymphocytes # (Auto) 2.1 x10^3/uL (1.0-4.8) Monocytes # (Auto) 0.8 x10^3/uL (0.0-1.1) Eosinophils # (Auto) 0.4 x10^3/uL (0.0-0.7) Basophils # (Auto) 0.0 x10^3/uL (0.0-0.2) Creatinine 0.7 mg/dL (0.6-1.0) Estimated GFR (Cockcroft-Gault) 98.2 Lactic Acid Level 1.3 mmol/L (0.4-2.0) Microbiology 12/13/18 Blood Culture - Preliminary, Resulted NO GROWTH AFTER 1 DAY Medications Current Medications Albuterol/ Ipratropium (Duoneb) 3 ml 1X ONCE NEB Last administered on at 10:30; Start 12/13/18 at 10:30; Stop 12/13/18 at 10:31; Status DC Sodium Chloride 500 ml @ 500 mls/hr 1X ONCE IV Last administered on 12/13/18at 10:30; Start 12/13/18 at 10:30; Stop 12/13/18 at 11:29; Status DC Vancomycin HCl (Vanco Per Pharmacy) 1 each PRN DAILY PRN MC SEE COMMENTS Last administered on 12/13/18at 13:28; Start 12/13/18 at 10:30; Stop 12/13/18 at 19:00; Status DC Vancomycin HCl 1.25 gm/Sodium Chloride 250 ml @ 166.667 mls/hr 1X ONCE IV Last administered on 12/13/18at 10:53; Start 12/13/18 at 10:45; Stop 12/13/18 at 12: 14; Status DC Furosemide (Lasix) 20 mg 1X ONCE IVP Last administered on 12/13/18at 15:30; Start 12/13/18 at 12:15; Stop 12/13/18 at 12:17; Status DC Vancomycin HCl 1 gm/Sodium Chloride 250 ml @ 250 mls/hr Q12H IV ; Start at 23:00; Stop 12/13/18 at 23:00; Status DC Vancomycin HCl 750 mg/Sodium Chloride 250 ml @ 250 mls/hr Q12H IV ; Start at 23:00; Stop 12/13/18 at 23:00; Status DC Vancomycin HCl (Vancomycin Trough Level) 1 each 1X ONCE MC ; Start 12/14/18 at 10:30; Stop 12/14/18 at 10:30; Status DC Pharmacy Consult (C.diff Med Screen By Rx) 1 each 1X ONCE MC ; Start 12/13/18 at 14:45; Stop 12/13/18 at 14:46; Status UNV Ceftolozane/ Tazobactam 750 mg/ Sodium Chloride 100 ml @ 100 mls/hr Q8HRS IV Last administered on 12/14/18at 13:40; Start 12/13/18 at 15:30 Amlodipine Besylate (Norvasc) 5 mg DAILY PO Last administered on 12/14/18at 08:12 ; Start 12/13/18 at 15:30; Stop 12/14/18 at 11:52; Status DC Fentanyl (Duragesic 50mcg/ Hr Patch) 1 patch Q3DAYS TD ; Start 12/14/18 at 09:00 Gabapentin (Neurontin) 300 mg PRN BID PRN PO NERVE PAIN Last administered on 08:14; Start 12/13/18 at 14:45 Lactobacillus Rhamnosus (Culturelle) 1 cap BID PO Last administered on 08:14; Start 12/13/18 at 21:00 Metoclopramide HCl (Reglan) 5 mg QIDACHS PO Last administered on 12/14/18 11:47 ; Start 12/13/18 at 16:30 Ondansetron HCl (Zofran Odt) 4 mg QIDPRN PRN PEG NAUSEA/VOMITING; Start at 14:45 Oxycodone/ Acetaminophen (Percocet 7.5/ 325) 1 tab PRN QID PRN PO PAIN Last administered on 12/14/18 11:44; Start 12/13/18 at 14:45 Lansoprazole (Prevacid) 30 mg BIDBFRMEAL PEG Last administered on 12/14/18 08: 15; Start 12/13/18 at 16:30 Non-Formulary Medication (Albuterol Sulfate (Albuterol Sulfate Neb Soln)) 1 vial QID NEB ; Start 12/13/18 at 17:00; Status UNV Donepezil HCl (Aricept) 5 mg BID PO Last administered on 12/14/18 08:13; Start 12/13/18 at 21:00 Albuterol Sulfate (Ventolin Neb Soln) 2.5 mg RTQID NEB Last administered on 12/14 14:27; Start 12/13/18 at 16:00 Aspirin (Ecotrin) 81 mg DAILYWBKFT PO ; Start 12/14/18 at 08:00; Status UNV Amlodipine Besylate (Norvasc) 10 mg DAILY PO ; Start 12/15/18 at 09:00 Furosemide (Lasix) 20 mg 1X ONCE IVP Last administered on 12/14/18 13:40; Start 12/14/18 at 12:00; Stop 12/14/18 at 12:02; Status DC Amlodipine Besylate (Norvasc) 5 mg 1X ONCE PO Last administered on 12/14/18 13 :39; Start 12/14/18 at 12:00; Stop 12/14/18 at 12:02; Status DC Hydralazine HCl (Apresoline Inj) 10 mg PRN Q4HRS PRN IVP ELEVATED BP, SEE COMMENTS; Start 12/14/18 at 12:00 Alteplase, Recombinant (Cathflo For Central Catheter Clearance) 1 mg 1X ONCE INT CAT ; Start 12/14/18 at 13:15; Stop 12/14/18 at 13:20; Status DC Active Scripts Active Percocet 7.5-325 Mg Tablet (Oxycodone/Acetaminophen) 1 Each Tablet 1 Tab PO QID PRN MDD 1 FENTANYL 50mcg/hr (Fentanyl) 1 Each Patch.td72 1 Patch TP Q3DAYS MDD 1 Culturelle (Lactobacillus Rhamnosus Gg) 1 Each Cap.sprink 1 Cap PO BID 30 Days Reported Albuterol Sulfate Neb Soln (Albuterol Sulfate) 0.63 Mg/3 Ml Vial.neb 1 Vial NEB QID Gabapentin (Gabapentin) 300 Mg Capsule 300 Mg PO BID PRN Amlodipine Besylate 5 Mg Tablet 5 Mg PO DAILY Pantoprazole Sodium 40 Mg Tablet.dr 40 Mg PEG BID Donepezil Hcl 5 Mg Tablet 5 Mg PEG BID Reglan (Metoclopramide Hcl) 10 Mg Tablet 5 Mg PO QIDACHS Cyproheptadine Hcl 2 Mg/5 Ml Syrup 10 Ml PEG TID Ondansetron Odt (Ondansetron) 4 Mg Tab.rapdis 4 Mg PEG QIDPRN PRN Vitals/I & O Vital Sign - Last 24 Hours 12/13/18 12/13/18 12/13/18 12/13/18 15:29 16:30 19:16 19:50 Temp 97.7 97.7 Pulse 96 Resp 18 B/P (MAP) 151/81 (104) Pulse Ox 79 92 95 98 O2 Delivery Tracheal Collar Tracheal Collar Tracheal Collar Tracheal Collar O2 Flow Rate 12.0 10.0 10.0 10.0 12/13/18 12/13/18 12/13/18 12/13/18 20:05 22:40 22:43 23:35 Temp 98.6 98.6 Pulse 102 Resp 20 B/P (MAP) 152/74 (100) Pulse Ox 96 98 98 O2 Delivery Trach Collar Tracheal Collar Tracheal Collar O2 Flow Rate 10.0 10.0 10.0 10.0 12/14/18 12/14/18 12/14/18 12/14/18 00:31 02:35 04:05 04:47 Temp 97.7 97.7 Pulse 92 Resp 18 B/P (MAP) 161/80 (107) Pulse Ox 98 97 100 O2 Delivery Tracheal Collar Tracheal Collar Tracheal Collar Tracheal Collar O2 Flow Rate 10.0 10.0 15.0 12/14/18 12/14/18 12/14/18 12/14/18 05:47 07:00 07:47 08:10 Temp 98.0 98.0 Pulse 107 Resp 18 B/P (MAP) 196/86 (122) Pulse Ox 100 98 100 O2 Delivery Tracheal Collar Tracheal Collar Tracheal Collar Trach Collar O2 Flow Rate 15.0 10.0 12/14/18 12/14/18 12/14/18 12/14/18 08:12 11:00 11:25 11:44 Temp 97.5 97.5 Pulse 107 B/P (MAP) 196/86 158/67 (97) Pulse Ox 95 O2 Delivery Tracheal Collar Tracheal Collar O2 Flow Rate 10.0 12.0 12/14/18 12/14/18 13:39 14:29 Pulse 107 B/P (MAP) 158/67 Pulse Ox 97 O2 Delivery Tracheal Collar O2 Flow Rate 15.0 Intake and Output 12/13/18 12/13/18 12/14/18 15:00 23:00 07:00 Intake Total 1590 ml 340 ml Output Total 300 ml 700 ml 700 ml Balance -300 ml 890 ml -360 ml HARDEEP LUEVANO MD Dec 14, 2018 14:43
[2018-12-14 15:00] VITALS: BP 154/84
--- NOTE | 2018-12-14 16:44 | NUR ---
Pharmacy Medication Review S: Consulted for medication review re: C.diff Risk Assessment score of 7 O: BERNARDO DE LEON is a 78 year old with: Previous C.diff infection: No Previous hospitalization: Within 30 days Recent antibiotics: Within 30 days Use of gastric acid suppressor: Yes Transfer from [facility]: No Current antibiotic regimen: Current acid suppression regimen: A: Patient has been identified as having risk factors for C.diff infection as noted above. P: ABX DE-ESCALATION RECOMMENDED: NO, ID SEEING PT PROBIOTIC ORDERED: NO, PT WITH PEG. C/I PER INSTITUTIONAL POLICY PPI CHANGED TO [id number]: NO, PT WITH HX GERD KATHIA GALVAN, [facility], 12/14/18 [id number]
[2018-12-14] MEDS: ONDANSETRON ODT 4 MG TAB.RAPDIS. PEG PRN ×2 (17:53→23:25)
--- NOTE | 2018-12-14 18:50 | CONS ---
DATE OF CONSULTATION: 12/14/2018 PATIENT LOCATION: Room 200. REQUESTING PHYSICIAN: Dr. Arnett. REASON FOR CONSULTATION: History of multidrug resistant Pseudomonas pneumonia. HISTORY OF PRESENT ILLNESS: The patient is a 78-year-old -[place] female admitted a week and a half ago or so on the 12/02/2018. At that time, sputum culture had grown out a Pseudomonas species that was CRE. She additionally underwent bronchoscopy on the that grew out a multidrug resistance CRE Pseudomonas as well. Initially, she was treated with Zosyn and then changed to Zerbaxa, but was discharged home on the . She returned to the Emergency Room on the with dyspnea and respiratory distress. She was on 50% oxygen O2 sat on 5 liters. Medics arrived and gave her DuoNeb, it came up to 87. She has had ongoing cough and sputum production. On arrival, she was afebrile. White blood cell count was 14.9. Lactic acid was 2.8. Procalcitonin was 0.14. She was given vancomycin and I was consulted. I added the Zerbaxa. Vancomycin has been discontinued. Currently, this morning the patient is a much better. She denies any fever or chills or sweats, but she felt like she was having some fevers at home and some sweats. She also had some vomiting with coughing, but otherwise states she was doing better, this morning she feels much, much better. PAST MEDICAL HISTORY: Positive for the CRE Pseudomonas mentioned above, history of previous MRSA, COPD, history of lung cancer, laryngeal cancer status post radiation. She has chronic dysphagia and history of radiation. She has a history of previous pneumonias. PAST SURGICAL HISTORY: Positive for post trach and PEG. REVIEW OF SYSTEMS: As mentioned above. She essentially nodded to questions. ALLERGIES: Listed as ASPIRIN. SOCIAL HISTORY: No tobacco or alcohol. FAMILY HISTORY: Noncontributory. CURRENT MEDICATIONS: Include the Zerbaxa. Vancomycin has been discontinued. She is on DuoNeb, Norvasc, Aricept, fentanyl, Neurontin, lactobacillus. Previously had Reglan, Zofran, Percocet. PHYSICAL EXAMINATION: VITAL SIGNS: She has been afebrile since her presentation. Current temperature is 98, pulse 107, respirations 18, blood pressure 196/86. She is satting 100% on 10 liters. CONSTITUTIONAL: She is very alert. She is cooperative. She is in no acute distress. HEENT: Oral cavity, pharynx is clear. Trach without signs of complications. LUNGS: Clear. She has a Port-A-Cath in the right chest. HEART: S1, S2. ABDOMEN: Soft, nontender, no guarding. PEG tube without complications. EXTREMITIES: No clubbing, cyanosis. Are thin. SKIN: Warm to touch without signs of rash. NEUROLOGIC: She is alert, follows simple commands. Affect is pleasant. LABORATORY DATA: From admission, white count 14.9, hemoglobin 8.9, platelets of 460 with 79 segs and 3 bands. Glucose was 166. BNP pro of 5955. Troponin was 0.151, peaked at 0.168, now down to 0.152. Procalcitonin was 0.14. Chest x-ray, moderate prominence appearing bilateral interstitial lung markings, mild increased patchy bilateral airspace disease, likely atelectasis or infiltrates. IMPRESSION: 1. Acute respiratory failure has improved, questionable plug. 2. Leukocytosis, questionable reactive. 3. Lactic acidosis. 4. Elevated troponin. 5. 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 6. Hypertension. RECOMMENDATIONS: 1. For now, I will continue the Zerbaxa. 2. Clinically, she looks well. 3. Obtain CBC with diff. 4. Prophylaxis this a.m. 5. Follow up labs and cultures. Thank you Dr. Arnett, for asking us to participate in this patient's care. Should you have further questions or concerns, please do not hesitate to contact me. GWEN MCQUEEN MD DR: KIMMY/sena JOB#: [id number] / [id number]
[2018-12-14 19:45] VITALS: BP 123/62
[2018-12-14] MEDS ORDERED: oxyCODONE/APAP 7.5/325 1 TAB TABLET PEG ONE (21:30)
[2018-12-14 23:05] VITALS: BP 154/68
[2018-12-15] MEDS: CEFTOLOZANE IV SCH ×4 (01:38→22:42)
[2018-12-15] MEDS: TAZOBACTAM IV SCH ×4 (01:38→22:42)
[2018-12-15] MEDS: NORMAL SALINE IV SCH ×4 (01:38→22:42)
[2018-12-15] MEDS: oxyCODONE/APAP 7.5/325 1 TAB TABLET PO PRN ×3 (01:44→15:26)
[2018-12-15 02:30] VITALS: BP 143/70
[2018-12-15 05:20] LABS: CREATININE 0.8 mg/dL (0.6-1.0); GFR 84.2
--- NOTE | 2018-12-15 06:09 | NUR ---
Pt. right side port cath bleeding and needle hub out of port. Port site continued to bleed and unable to access. Contacted Dr. Molina and new orders to place a peripheral line. 1 attempt and line placed.
[2018-12-15 07:00] VITALS: BP 168/76
[2018-12-15] MEDS: ALBUTEROL SULFATE 2.5 MG/3 ML NEBU. NEB SCH ×4 (08:43→20:07)
--- NOTE | 2018-12-15 09:08 | PDOC ---
Infectious Disease Note Subjective Subjective Doing ok but has some port pain and vomited last pm times one ROS ROS o/w neg Vital Sign Vital Signs Vital Signs Date Time Temp Pulse Resp B/P (MAP) Pulse Ox O2 Delivery O2 Flow Rate FiO2 12/15/18 08:43 93 Tracheal Collar 15.0 12/15/18 07:00 99.4 105 20 168/76 (106) 99.4 Physical Exam PHYSICAL EXAM CONSTITUTIONAL: She is very alert. She is cooperative. She is in no acute distress. Looks well HEENT: Oral cavity, pharynx is clear. Trach without signs of complications. LUNGS: Clear. She has a Port-A-Cath in the right chest.- no redness but some pain and trace edema HEART: S1, S2. ABDOMEN: Soft, nontender, no guarding. PEG tube without complications. EXTREMITIES: No clubbing, cyanosis. Are thin. SKIN: Warm to touch without signs of rash. NEUROLOGIC: She is alert, follows simple commands. Affect is pleasant. Labs Lab Laboratory Tests Test 12/14/18 11:03 12/15/18 04:25 Lactic Acid Level 1.3 mmol/L (0.4-2.0) Creatinine 0.8 mg/dL (0.6-1.0) Estimated GFR (Cockcroft-Gault) 84.2 Micro Microbiology 12/13/18 Blood Culture - Preliminary, Resulted NO GROWTH AFTER 1 DAY Objective Assessment Acute Resp failure - better. ? plug Malfunctioning Port Leukocytosis - ? reactive - some better. min elevation of Procalcitonin Lactic acidosis - better Elevated troponin H/o MDR pseudomonas - ? colonization HTN Plan Plan of Care Cont zerbaxa - clinically she looks well CBC/ this am Await IR eval F/u labs and cults D/w nursing GWEN MCQUEEN MD Dec 15, 2018 09:08
[2018-12-15] MEDS: GABAPENTIN 300 MG CAPSULE. PO PRN (09:13)
[2018-12-15] MEDS: amLODIPine BESYLATE 5 MG TABLET PO SCH (09:13)
[2018-12-15] MEDS: DONEPEZIL HCL 5 MG TABLET. PO SCH ×2 (09:14→21:00)
[2018-12-15] MEDS: LANSOPRAZOLE 30 MG TAB.RAP.DR PEG SCH ×2 (09:14→17:50)
[2018-12-15] MEDS: LACTOBACILLUS RHAMNOSUS GG 1 CAPSULE. PO SCH ×2 (09:14→21:00)
[2018-12-15] MEDS: METOCLOPRAMIDE 10 MG TABLET. PO SCH ×4 (09:14→21:00)
[2018-12-15] MEDS ORDERED: IOHEXOL 240 MG/ML 50ML VIAL. ONE (09:51)
--- NOTE | 2018-12-15 09:57 | RAD ---
EXAM: Chest, single view. HISTORY: Infiltrate. COMPARISON: 12/13/2018 FINDINGS: A frontal view of the chest is obtained. There is a right port catheter with the tip in the superior cavoatrial junction. There has been interval increase in partially consolidated left central interstitial infiltrate suspected slight decreased right upper lobe partially consolidated infiltrate.. This is superimposed on stable diffuse interstitial infiltrate. There is stable suspected left lower lobe consolidation and a small left pleural effusion. There is stable cardiomegaly. There is tracheostomy device overlying expected position. IMPRESSION: 1. Increased left central and decreased right upper lobe partially consolidated infiltrate superimposed on diffuse interstitial infiltrate. 2. Stable suspected left lower lobe consolidation and small pleural effusion. 3. Stable cardiomegaly. Electronically signed by: Argenis Ryan MD (12/15/2018 9:53 AM) [facility]
[2018-12-15 10:00] LABS: BASO # 0.2 x10^3/uL (0.0-0.2); BASO % 1 % (0-3); EOS # 0.3 x10^3/uL (0.0-0.7); EOS % 2 % (0-3); HEMATOCRIT 30.8 % (36.0-47.0); LYMPH # 1.6 x10^3/uL (1.0-4.8); LYMPH % 8 % (24-48); MEAN CORPUSCULAR HEMOGLOBIN 22 pg (25-35); MEAN CORPUSCULAR HGB CONC 29 g/dL (31-37); MEAN CORPUSCULAR VOLUME 76 fL (79-100); MONO # 1.1 x10^3/uL (0.0-1.1); MONO % 6 % (0-9); NEUT # 15.5 x10^3uL (1.8-7.7); NEUT % 83 % (31-73); PLATELET COUNT 498 x10^3/uL (140-400); RED BLOOD COUNT 4.06 x10^6/uL (3.50-5.40); WHITE BLOOD COUNT 18.6 x10^3/uL (4.0-11.0)
--- NOTE | 2018-12-15 10:28 | NUR ---
Pt to IR for Port check, accessed with sterile technique, contrast infected and placement confirmed with Xray. Pt tolerated well. Port left accessed, OSBALDO CRAWFORD
[2018-12-15] MEDS ORDERED: IOHEXOL 240 MG/ML 50ML VIAL. IV ONE (10:30)
[2018-12-15] MEDS ORDERED: CONTRAST GIVEN. MC PRN (10:45)
[2018-12-15 11:00] VITALS: BP 128/60
[2018-12-15] MEDS: ONDANSETRON PF 4 MG/2 ML VIAL. IV PRN ×2 (14:19→20:55)
[2018-12-15 15:00] VITALS: BP 131/60
[2018-12-15] MEDS: SCOPOLAMINE 1.5MG PATCH. TD SCH (15:25)
--- NOTE | 2018-12-15 15:32 | PDOC ---
PULMONARY PROGRESS NOTES Subjective trach secretions LESS Vitals Vital Signs Date Time Temp Pulse Resp B/P (MAP) Pulse Ox O2 Delivery O2 Flow Rate FiO2 12/15/18 15:26 93 Tracheal Collar 10.0 12/15/18 11:00 99.2 113 20 128/60 (82) 99.2 General: Alert, No acute distress Lungs: Other (rhonchi) Cardiovascular: S1, S2 Abdomen: Soft, Non-tender Neuro Exam: Alert Extremities: No Edema Skin: Warm Labs Laboratory Tests Test 12/13/18 18:30 12/14/18 03:20 12/14/18 11:03 12/15/18 04:25 Troponin I Quantitative 0.152 ng/mL (0.000-0.055) White Blood Count 12.2 x10^3/uL (4.0-11.0) 18.6 x10^3/uL (4.0-11.0) Red Blood Count 3.83 x10^6/uL (3.50-5.40) 4.06 x10^6/uL (3.50-5.40) Hemoglobin 8.6 g/dL (12.0-15.5) 9.0 g/dL (12.0-15.5) Hematocrit 28.9 % (36.0-47.0) 30.8 % (36.0-47.0) Mean Corpuscular Volume 75 fL (79-100) 76 fL (79-100) Mean Corpuscular Hemoglobin 23 pg (25-35) 22 pg (25-35) Mean Corpuscular Hemoglobin Concent 30 g/dL (31-37) 29 g/dL (31-37) Red Cell Distribution Width 18.8 % (11.5-14.5) 19.0 % (11.5-14.5) Platelet Count 438 x10^3/uL (140-400) 498 x10^3/uL (140-400) Neutrophils (%) (Auto) 73 % (31-73) 83 % (31-73) Lymphocytes (%) (Auto) 18 % (24-48) 8 % (24-48) Monocytes (%) (Auto) 7 % (0-9) 6 % (0-9) Eosinophils (%) (Auto) 3 % (0-3) 2 % (0-3) Basophils (%) (Auto) 0 % (0-3) 1 % (0-3) Neutrophils # (Auto) 8.9 x10^3uL (1.8-7.7) 15.5 x10^3uL (1.8-7.7) Lymphocytes # (Auto) 2.1 x10^3/uL (1.0-4.8) 1.6 x10^3/uL (1.0-4.8) Monocytes # (Auto) 0.8 x10^3/uL (0.0-1.1) 1.1 x10^3/uL (0.0-1.1) Eosinophils # (Auto) 0.4 x10^3/uL (0.0-0.7) 0.3 x10^3/uL (0.0-0.7) Basophils # (Auto) 0.0 x10^3/uL (0.0-0.2) 0.2 x10^3/uL (0.0-0.2) Creatinine 0.7 mg/dL (0.6-1.0) 0.8 mg/dL (0.6-1.0) Estimated GFR (Cockcroft-Gault) 98.2 84.2 Lactic Acid Level 1.3 mmol/L (0.4-2.0) Lipase 312 U/L (73-393) Laboratory Tests Test 12/15/18 04:25 White Blood Count 18.6 x10^3/uL (4.0-11.0) Red Blood Count 4.06 x10^6/uL (3.50-5.40) Hemoglobin 9.0 g/dL (12.0-15.5) Hematocrit 30.8 % (36.0-47.0) Mean Corpuscular Volume 76 fL (79-100) Mean Corpuscular Hemoglobin 22 pg (25-35) Mean Corpuscular Hemoglobin Concent 29 g/dL (31-37) Red Cell Distribution Width 19.0 % (11.5-14.5) Platelet Count 498 x10^3/uL (140-400) Neutrophils (%) (Auto) 83 % (31-73) Lymphocytes (%) (Auto) 8 % (24-48) Monocytes (%) (Auto) 6 % (0-9) Eosinophils (%) (Auto) 2 % (0-3) Basophils (%) (Auto) 1 % (0-3) Neutrophils # (Auto) 15.5 x10^3uL (1.8-7.7) Lymphocytes # (Auto) 1.6 x10^3/uL (1.0-4.8) Monocytes # (Auto) 1.1 x10^3/uL (0.0-1.1) Eosinophils # (Auto) 0.3 x10^3/uL (0.0-0.7) Basophils # (Auto) 0.2 x10^3/uL (0.0-0.2) Creatinine 0.8 mg/dL (0.6-1.0) Estimated GFR (Cockcroft-Gault) 84.2 Lipase 312 U/L (73-393) Medications Active Scripts Medications Dose Route/Sig Max Daily Dose Days Date Category Percocet 7.5-325 Mg Tablet (Oxycodone/Acetaminophen) 1 Each Tablet 1 Tab PO QID PRN MDD 1 12/09/18 Rx FENTANYL 50mcg/hr (Fentanyl) 1 Each Patch.td72 1 Patch TP Q3DAYS MDD 1 12/09/18 Rx Albuterol Sulfate Neb Soln (Albuterol Sulfate) 0.63 Mg/3 Ml Vial.neb 1 Vial NEB QID 12/02/18 Reported Gabapentin (Gabapentin) 300 Mg Capsule 300 Mg PO BID PRN 10/19/18 Reported Amlodipine Besylate 5 Mg Tablet 5 Mg PO DAILY 10/19/18 Reported Culturelle (Lactobacillus Rhamnosus Gg) 1 Each Cap.sprink 1 Cap PO BID 30 07/07/17 Rx Pantoprazole Sodium 40 Mg Tablet.dr 40 Mg PEG BID 03/11/17 Reported Donepezil Hcl 5 Mg Tablet 5 Mg PEG BID 03/11/17 Reported Reglan (Metoclopramide Hcl) 10 Mg Tablet 5 Mg PO QIDACHS 03/11/17 Reported Cyproheptadine Hcl 2 Mg/5 Ml Syrup 10 Ml PEG TID 03/11/17 Reported Ondansetron Odt (Ondansetron) 4 Mg Tab.rapdis 4 Mg PEG QIDPRN PRN 06/19/14 Reported Impression . 1. Acute on chronic respiratory failure. 2. 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 3. Abnormal x-ray, possible new pneumonia. 4. Status post trach and PEG. 5. History of laryngeal carcinoma. Plan . 1. Zerbaxa, per ID 2. continue oxygen supplementation. 3. Continue home meds. 4. PRN Trach suction 5. repeat sputum for c/s d/w MARY Sebastian MD Dec 15, 2018 15:32
--- NOTE | 2018-12-15 18:03 | PDOC ---
PROGRESS NOTES Chief Complaint Chief Complaint Assessment and plan Acute on chronic respiratory failure; multifactorial with recurrent pneumonia, COPD, and mild CHF. appears better H/o recurrent pneumonia with multidrug-resistant Pseudomonas and MRSA. ID and pulmonary following Leukocytosis, which seems to be reactive Elevated troponin; highest 0.168, type 2 secondary to demand mediated. EF and WM nml with moderate pulmonary HTN. Acute on chronic diastolic CHF: compensated Hypertension; labile episodes Hx of laryngeal CA and SCC with trach Hx of dysphagia with PEG with TF Dementia Continue with current antibiotics We'll follow recommendations from consultants IR to evaluate port today Patient seems to be at baseline and seems to be stable from the medical standpoint of view hope to discharge soon History of Present Illness History of Present Illness Patient with transient loss of iv access overnight, Ir will evaluate port, 22 g iv was started overnight. The patient responds to verbal stimuli and she seems to be quite happy when I mentioned discharge from the hospital. Unable to have a conversation due to tracheostomy but she does seem to understand and participates in the interaction Vitals Vitals Vital Signs Date Time Temp Pulse Resp B/P (MAP) Pulse Ox O2 Delivery O2 Flow Rate FiO2 12/15/18 16:26 93 Tracheal Collar 10.0 12/15/18 15:00 99.2 112 20 131/60 (83) 99.2 Physical Exam Physical Exam CONSTITUTIONAL: She is very alert. She is cooperative. She is in no acute distress. Looks well HEENT: Oral cavity, pharynx is clear. Trach without signs of complications. LUNGS: Clear. She has a Port-A-Cath in the right chest.- no redness but some pain and trace edema HEART: S1, S2. ABDOMEN: Soft, nontender, no guarding. PEG tube without complications. EXTREMITIES: No clubbing, cyanosis. Are thin. SKIN: Warm to touch without signs of rash. NEUROLOGIC: She is alert, follows simple commands. Affect is pleasant. General: Alert, Cooperative, No acute distress Heart: Regular rate, Normal S1, Normal S2, Other (tachycardic) Lungs: Other (rhonchi) Abdomen: Normal bowel sounds, Soft Extremities: No clubbing, No cyanosis Skin: No rashes Labs LABS Laboratory Tests Test 12/15/18 04:25 White Blood Count 18.6 x10^3/uL (4.0-11.0) Red Blood Count 4.06 x10^6/uL (3.50-5.40) Hemoglobin 9.0 g/dL (12.0-15.5) Hematocrit 30.8 % (36.0-47.0) Mean Corpuscular Volume 76 fL (79-100) Mean Corpuscular Hemoglobin 22 pg (25-35) Mean Corpuscular Hemoglobin Concent 29 g/dL (31-37) Red Cell Distribution Width 19.0 % (11.5-14.5) Platelet Count 498 x10^3/uL (140-400) Neutrophils (%) (Auto) 83 % (31-73) Lymphocytes (%) (Auto) 8 % (24-48) Monocytes (%) (Auto) 6 % (0-9) Eosinophils (%) (Auto) 2 % (0-3) Basophils (%) (Auto) 1 % (0-3) Neutrophils # (Auto) 15.5 x10^3uL (1.8-7.7) Lymphocytes # (Auto) 1.6 x10^3/uL (1.0-4.8) Monocytes # (Auto) 1.1 x10^3/uL (0.0-1.1) Eosinophils # (Auto) 0.3 x10^3/uL (0.0-0.7) Basophils # (Auto) 0.2 x10^3/uL (0.0-0.2) Creatinine 0.8 mg/dL (0.6-1.0) Estimated GFR (Cockcroft-Gault) 84.2 Lipase 312 U/L (73-393) Comment Review of Relevant I have reviewed the following items miko (where applicable) has been applied. Labs Laboratory Tests Test 12/13/18 18:30 12/14/18 03:20 12/14/18 11:03 12/15/18 04:25 Troponin I Quantitative 0.152 ng/mL (0.000-0.055) White Blood Count 12.2 x10^3/uL (4.0-11.0) 18.6 x10^3/uL (4.0-11.0) Red Blood Count 3.83 x10^6/uL (3.50-5.40) 4.06 x10^6/uL (3.50-5.40) Hemoglobin 8.6 g/dL (12.0-15.5) 9.0 g/dL (12.0-15.5) Hematocrit 28.9 % (36.0-47.0) 30.8 % (36.0-47.0) Mean Corpuscular Volume 75 fL (79-100) 76 fL (79-100) Mean Corpuscular Hemoglobin 23 pg (25-35) 22 pg (25-35) Mean Corpuscular Hemoglobin Concent 30 g/dL (31-37) 29 g/dL (31-37) Red Cell Distribution Width 18.8 % (11.5-14.5) 19.0 % (11.5-14.5) Platelet Count 438 x10^3/uL (140-400) 498 x10^3/uL (140-400) Neutrophils (%) (Auto) 73 % (31-73) 83 % (31-73) Lymphocytes (%) (Auto) 18 % (24-48) 8 % (24-48) Monocytes (%) (Auto) 7 % (0-9) 6 % (0-9) Eosinophils (%) (Auto) 3 % (0-3) 2 % (0-3) Basophils (%) (Auto) 0 % (0-3) 1 % (0-3) Neutrophils # (Auto) 8.9 x10^3uL (1.8-7.7) 15.5 x10^3uL (1.8-7.7) Lymphocytes # (Auto) 2.1 x10^3/uL (1.0-4.8) 1.6 x10^3/uL (1.0-4.8) Monocytes # (Auto) 0.8 x10^3/uL (0.0-1.1) 1.1 x10^3/uL (0.0-1.1) Eosinophils # (Auto) 0.4 x10^3/uL (0.0-0.7) 0.3 x10^3/uL (0.0-0.7) Basophils # (Auto) 0.0 x10^3/uL (0.0-0.2) 0.2 x10^3/uL (0.0-0.2) Creatinine 0.7 mg/dL (0.6-1.0) 0.8 mg/dL (0.6-1.0) Estimated GFR (Cockcroft-Gault) 98.2 84.2 Lactic Acid Level 1.3 mmol/L (0.4-2.0) Lipase 312 U/L (73-393) Laboratory Tests Test 12/15/18 04:25 White Blood Count 18.6 x10^3/uL (4.0-11.0) Red Blood Count 4.06 x10^6/uL (3.50-5.40) Hemoglobin 9.0 g/dL (12.0-15.5) Hematocrit 30.8 % (36.0-47.0) Mean Corpuscular Volume 76 fL (79-100) Mean Corpuscular Hemoglobin 22 pg (25-35) Mean Corpuscular Hemoglobin Concent 29 g/dL (31-37) Red Cell Distribution Width 19.0 % (11.5-14.5) Platelet Count 498 x10^3/uL (140-400) Neutrophils (%) (Auto) 83 % (31-73) Lymphocytes (%) (Auto) 8 % (24-48) Monocytes (%) (Auto) 6 % (0-9) Eosinophils (%) (Auto) 2 % (0-3) Basophils (%) (Auto) 1 % (0-3) Neutrophils # (Auto) 15.5 x10^3uL (1.8-7.7) Lymphocytes # (Auto) 1.6 x10^3/uL (1.0-4.8) Monocytes # (Auto) 1.1 x10^3/uL (0.0-1.1) Eosinophils # (Auto) 0.3 x10^3/uL (0.0-0.7) Basophils # (Auto) 0.2 x10^3/uL (0.0-0.2) Creatinine 0.8 mg/dL (0.6-1.0) Estimated GFR (Cockcroft-Gault) 84.2 Lipase 312 U/L (73-393) Microbiology 12/13/18 Blood Culture - Preliminary, Resulted NO GROWTH AFTER 2 DAYS Medications Current Medications Albuterol/ Ipratropium (Duoneb) 3 ml 1X ONCE NEB Last administered on at 10:30; Start 12/13/18 at 10:30; Stop 12/13/18 at 10:31; Status DC Sodium Chloride 500 ml @ 500 mls/hr 1X ONCE IV Last administered on 12/13/18at 10:30; Start 12/13/18 at 10:30; Stop 12/13/18 at 11:29; Status DC Vancomycin HCl (Vanco Per Pharmacy) 1 each PRN DAILY PRN MC SEE COMMENTS Last administered on 12/13/18at 13:28; Start 12/13/18 at 10:30; Stop 12/13/18 at 19:00; Status DC Vancomycin HCl 1.25 gm/Sodium Chloride 250 ml @ 166.667 mls/hr 1X ONCE IV Last administered on 12/13/18at 10:53; Start 12/13/18 at 10:45; Stop 12/13/18 at 12: 14; Status DC Furosemide (Lasix) 20 mg 1X ONCE IVP Last administered on 12/13/18at 15:30; Start 12/13/18 at 12:15; Stop 12/13/18 at 12:17; Status DC Vancomycin HCl 1 gm/Sodium Chloride 250 ml @ 250 mls/hr Q12H IV ; Start at 23:00; Stop 12/13/18 at 23:00; Status DC Vancomycin HCl 750 mg/Sodium Chloride 250 ml @ 250 mls/hr Q12H IV ; Start at 23:00; Stop 12/13/18 at 23:00; Status DC Vancomycin HCl (Vancomycin Trough Level) 1 each 1X ONCE MC ; Start 12/14/18 at 10:30; Stop 12/14/18 at 10:30; Status DC Pharmacy Consult (C.diff Med Screen By Rx) 1 each 1X ONCE MC ; Start 12/13/18 at 14:45; Stop 12/13/18 at 14:46; Status UNV Ceftolozane/ Tazobactam 750 mg/ Sodium Chloride 100 ml @ 100 mls/hr Q8HRS IV Last administered on 12/15/18at 14:19; Start 12/13/18 at 15:30 Amlodipine Besylate (Norvasc) 5 mg DAILY PO Last administered on 12/14/18at 08:12 ; Start 12/13/18 at 15:30; Stop 12/14/18 at 11:52; Status DC Fentanyl (Duragesic 50mcg/ Hr Patch) 1 patch Q3DAYS TD ; Start 12/14/18 at 09:00 Gabapentin (Neurontin) 300 mg PRN BID PRN PO NERVE PAIN Last administered on 09:13; Start 12/13/18 at 14:45 Lactobacillus Rhamnosus (Culturelle) 1 cap BID PO Last administered on 09:14; Start 12/13/18 at 21:00 Metoclopramide HCl (Reglan) 5 mg QIDACHS PO Last administered on 12/15/18 17:49 ; Start 12/13/18 at 16:30 Ondansetron HCl (Zofran Odt) 4 mg QIDPRN PRN PEG NAUSEA/VOMITING Last administered on 12/14/18 23:25; Start 12/13/18 at 14:45 Oxycodone/ Acetaminophen (Percocet 7.5/ 325) 1 tab PRN QID PRN PO PAIN Last administered on 12/15/18 15:26; Start 12/13/18 at 14:45 Lansoprazole (Prevacid) 30 mg BIDBFRMEAL PEG Last administered on 12/15/18 17: 50; Start 12/13/18 at 16:30 Non-Formulary Medication (Albuterol Sulfate (Albuterol Sulfate Neb Soln)) 1 vial QID NEB ; Start 12/13/18 at 17:00; Status UNV Donepezil HCl (Aricept) 5 mg BID PO Last administered on 12/15/18 09:14; Start 12/13/18 at 21:00 Albuterol Sulfate (Ventolin Neb Soln) 2.5 mg RTQID NEB Last administered on 12/15 16:18; Start 12/13/18 at 16:00 Aspirin (Ecotrin) 81 mg DAILYWBKFT PO ; Start 12/14/18 at 08:00; Status UNV Amlodipine Besylate (Norvasc) 10 mg DAILY PO Last administered on 12/15/18 09: 13; Start 12/15/18 at 09:00 Furosemide (Lasix) 20 mg 1X ONCE IVP Last administered on 12/14/18 13:40; Start 12/14/18 at 12:00; Stop 12/14/18 at 12:02; Status DC Amlodipine Besylate (Norvasc) 5 mg 1X ONCE PO Last administered on 12/14/18at 13 :39; Start 12/14/18 at 12:00; Stop 12/14/18 at 12:02; Status DC Hydralazine HCl (Apresoline Inj) 10 mg PRN Q4HRS PRN IVP ELEVATED BP, SEE COMMENTS; Start 12/14/18 at 12:00 Alteplase, Recombinant (Cathflo For Central Catheter Clearance) 1 mg 1X ONCE INT CAT Last administered on 12/14/18at 15:15; Start 12/14/18 at 13:15; Stop at 13:20; Status DC Oxycodone/ Acetaminophen (Percocet 7.5/ 325) 1 tab 1X ONCE PEG Last administered on 12/14/18at 21:36; Start 12/14/18 at 21:30; Stop 12/14/18 at 21:31; Status DC Iohexol (Omnipaque 240 Mg/ml) 50 ml STK-MED ONCE .ROUTE ; Start 12/15/18 at 09:51 ; Stop 12/15/18 at 09:52; Status DC Iohexol (Omnipaque 240 Mg/ml) 5 ml 1X ONCE IV ; Start 12/15/18 at 10:30; Stop at 10:33; Status DC Info (CONTRAST GIVEN -- Rx MONITORING) 1 each PRN DAILY PRN MC SEE COMMENTS; Start 12/15/18 at 10:45; Stop 12/17/18 at 10:44 Ondansetron HCl (Zofran) 4 mg PRN Q6HRS PRN IV NAUSEA/VOMITING Last administered on 12/15/18at 14:19; Start 12/15/18 at 14:15 Scopolamine (Transderm-Scop) 1 patch Q3DAYS TD Last administered on 12/15/18at 15 :25; Start 12/15/18 at 15:15 Active Scripts Active Percocet 7.5-325 Mg Tablet (Oxycodone/Acetaminophen) 1 Each Tablet 1 Tab PO QID PRN MDD 1 FENTANYL 50mcg/hr (Fentanyl) 1 Each Patch.td72 1 Patch TP Q3DAYS MDD 1 Culturelle (Lactobacillus Rhamnosus Gg) 1 Each Cap.sprink 1 Cap PO BID 30 Days Reported Albuterol Sulfate Neb Soln (Albuterol Sulfate) 0.63 Mg/3 Ml Vial.neb 1 Vial NEB QID Gabapentin (Gabapentin) 300 Mg Capsule 300 Mg PO BID PRN Amlodipine Besylate 5 Mg Tablet 5 Mg PO DAILY Pantoprazole Sodium 40 Mg Tablet.dr 40 Mg PEG BID Donepezil Hcl 5 Mg Tablet 5 Mg PEG BID Reglan (Metoclopramide Hcl) 10 Mg Tablet 5 Mg PO QIDACHS Cyproheptadine Hcl 2 Mg/5 Ml Syrup 10 Ml PEG TID Ondansetron Odt (Ondansetron) 4 Mg Tab.rapdis 4 Mg PEG QIDPRN PRN Vitals/I & O Vital Sign - Last 24 Hours 12/14/18 12/14/18 12/14/18 12/14/18 19:45 20:05 20:12 21:36 Temp 98.3 98.3 Pulse 100 Resp 20 B/P (MAP) 123/62 (82) Pulse Ox 94 93 O2 Delivery Tracheal Collar Trach Collar Tracheal Collar Room Air O2 Flow Rate 15.0 15.0 12/14/18 12/14/18 12/15/18 12/15/18 22:36 23:05 01:44 02:30 Temp 97.9 98.9 97.9 98.9 Pulse 109 113 Resp 22 20 B/P (MAP) 154/68 (96) 143/70 (94) Pulse Ox 87 95 O2 Delivery Tracheal Collar Tracheal Collar Tracheal Collar Tracheal Collar 12/15/18 12/15/18 12/15/18 12/15/18 07:00 08:00 08:43 09:13 Temp 99.4 99.4 Pulse 105 Resp 20 B/P (MAP) 168/76 (106) Pulse Ox 93 93 97 O2 Delivery Tracheal Collar Trach Collar Tracheal Collar Tracheal Collar O2 Flow Rate 10.0 15.0 12/15/18 12/15/18 12/15/18 12/15/18 09:13 11:00 12:22 15:00 Temp 99.2 99.2 99.2 99.2 Pulse 113 113 112 Resp 20 20 B/P (MAP) 168/76 128/60 (82) 131/60 (83) Pulse Ox 92 95 90 O2 Delivery Tracheal Collar Tracheal Collar Tracheal Collar O2 Flow Rate 10.0 12/15/18 12/15/18 12/15/18 15:26 16:18 16:26 Pulse Ox 93 93 93 O2 Delivery Tracheal Collar Tracheal Collar Tracheal Collar O2 Flow Rate 10.0 10.0 10.0 Intake and Output 12/14/18 12/14/18 12/15/18 15:00 23:00 07:00 Intake Total 2240 ml 1440 ml 930 ml Output Total 550 ml 900 ml Balance 1690 ml 1440 ml 30 ml Nutrition Consultation Dietary Evaluation: Recommendations by RD: Increase Calorie Intake Comments: Continue w/TF per current order: Jevity 1.5 bolus QID (1 carton/237 ml per bolus) w/200 ml water flushes QID Expected Outcomes/Goals: TF intake to meet >75% est needs Malnutrition Findings: Body Fat Depletion (Non Severe: Mild Depletion Weight Status: Appropriate HARDEEP LUEVANO MD Dec 15, 2018 18:03
[2018-12-15 19:00] VITALS: BP 119/57
--- NOTE | 2018-12-15 20:25 | RAD ---
Indication: PEG tube malfunction. TECHNIQUE: 2 AP views of the abdomen and pelvis COMPARISON: None FINDINGS: Activity seen with its tip projecting in the hypogastric region. Diffuse gas-filled bowel loops are seen, nonspecific. Calcified fibroids in the pelvis. IMPRESSION: The PEG tube projects over the hypogastrium. Intraluminal placement of PEG tube cannot be confirmed on a noncontrast exam. Further evaluation with injection of iodinated contrast through the PEG tube recommended. Electronically signed by: Collin Glasgow DO (12/15/2018 8:22 PM) [facility]
[2018-12-15] MEDS: MORPHINE SULFATE 2 MG/ML VIAL. IV PRN (20:56)
[2018-12-15 23:38] VITALS: BP 134/68
[2018-12-16] MEDS: MORPHINE SULFATE 2 MG/ML VIAL. IV PRN ×5 (00:51→18:28)
[2018-12-16 03:34] VITALS: BP 158/80
[2018-12-16 05:05] LABS: BASO # 0.1 x10^3/uL (0.0-0.2); BASO % 1 % (0-3); EOS # 0.1 x10^3/uL (0.0-0.7); EOS % 1 % (0-3); HEMOGLOBIN 9.1 g/dL (12.0-15.5); LYMPH # 2.1 x10^3/uL (1.0-4.8); LYMPH % 15 % (24-48); MEAN CORPUSCULAR HEMOGLOBIN 22 pg (25-35); MEAN CORPUSCULAR HGB CONC 29 g/dL (31-37); MEAN CORPUSCULAR VOLUME 75 fL (79-100); MONO # 0.8 x10^3/uL (0.0-1.1); MONO % 6 % (0-9); NEUT % 78 % (31-73); PLATELET COUNT 510 x10^3/uL (140-400); RED BLOOD COUNT 4.14 x10^6/uL (3.50-5.40); WHITE BLOOD COUNT 14.1 x10^3/uL (4.0-11.0)
[2018-12-16 05:11] LABS: ALBUMIN 2.7 g/dL (3.4-5.0); ALBUMIN/GLOBULIN RATIO 0.5 (1.0-1.7); CALCIUM 9.1 mg/dL (8.5-10.1); CREATININE 0.7 mg/dL (0.6-1.0); GFR 98.2; POTASSIUM 4.4 mmol/L (3.5-5.1); TOTAL BILIRUBIN 0.3 mg/dL (0.2-1.0); TOTAL PROTEIN 7.9 g/dL (6.4-8.2)
[2018-12-16] MEDS: TAZOBACTAM IV SCH ×3 (05:12→22:40)
[2018-12-16] MEDS: CEFTOLOZANE IV SCH ×3 (05:12→22:40)
[2018-12-16] MEDS: NORMAL SALINE IV SCH ×3 (05:12→22:40)
[2018-12-16 05:15] LABS: HEMATOCRIT 30.8 % (36.0-47.0)
[2018-12-16 07:00] VITALS: BP 160/74
--- NOTE | 2018-12-16 07:27 | PDOC ---
Infectious Disease Note Subjective Subjective Doing better. No gross pain. No F/C/S/N/V - breathing ok Vital Sign Vital Signs Vital Signs Date Time Temp Pulse Resp B/P (MAP) Pulse Ox O2 Delivery O2 Flow Rate FiO2 12/16/18 05:46 Tracheal Collar 12/16/18 05:12 10.0 12/16/18 03:35 98 12/16/18 03:34 98.8 95 18 158/80 (106) 98.8 Physical Exam PHYSICAL EXAM CONSTITUTIONAL: She is very alert. She is cooperative. She is in no acute distress. Looks well HEENT: Oral cavity, pharynx is clear. Trach without signs of complications. LUNGS: Clear. She has a Port-A-Cath in the right chest.- no redness - less edema HEART: S1, S2. ABDOMEN: Soft, nontender, no guarding. PEG tube without complications. EXTREMITIES: No clubbing, cyanosis. Are thin. SKIN: Warm to touch without signs of rash. NEUROLOGIC: She is alert, follows simple commands. Affect is pleasant. Labs Lab Laboratory Tests Test 12/16/18 04:00 White Blood Count 14.1 x10^3/uL (4.0-11.0) Red Blood Count 4.14 x10^6/uL (3.50-5.40) Hemoglobin 9.1 g/dL (12.0-15.5) Hematocrit 30.8 % (36.0-47.0) Mean Corpuscular Volume 75 fL (79-100) Mean Corpuscular Hemoglobin 22 pg (25-35) Mean Corpuscular Hemoglobin Concent 29 g/dL (31-37) Red Cell Distribution Width 19.0 % (11.5-14.5) Platelet Count 510 x10^3/uL (140-400) Neutrophils (%) (Auto) 78 % (31-73) Lymphocytes (%) (Auto) 15 % (24-48) Monocytes (%) (Auto) 6 % (0-9) Eosinophils (%) (Auto) 1 % (0-3) Basophils (%) (Auto) 1 % (0-3) Neutrophils # (Auto) 11.0 x10^3uL (1.8-7.7) Lymphocytes # (Auto) 2.1 x10^3/uL (1.0-4.8) Monocytes # (Auto) 0.8 x10^3/uL (0.0-1.1) Eosinophils # (Auto) 0.1 x10^3/uL (0.0-0.7) Basophils # (Auto) 0.1 x10^3/uL (0.0-0.2) Sodium Level 140 mmol/L (136-145) Potassium Level 4.4 mmol/L (3.5-5.1) Chloride Level 99 mmol/L (98-107) Carbon Dioxide Level 36 mmol/L (21-32) Anion Gap 5 (6-14) Blood Urea Nitrogen 9 mg/dL (7-20) Creatinine 0.7 mg/dL (0.6-1.0) Estimated GFR (Cockcroft-Gault) 98.2 BUN/Creatinine Ratio 13 (6-20) Glucose Level 88 mg/dL (70-99) Calcium Level 9.1 mg/dL (8.5-10.1) Total Bilirubin 0.3 mg/dL (0.2-1.0) Aspartate Amino Transf (AST/SGOT) 20 U/L (15-37) Alanine Aminotransferase (ALT/SGPT) 11 U/L (14-59) Alkaline Phosphatase 68 U/L (46-116) Total Protein 7.9 g/dL (6.4-8.2) Albumin 2.7 g/dL (3.4-5.0) Albumin/Globulin Ratio 0.5 (1.0-1.7) Micro Microbiology 12/13/18 Blood Culture - Preliminary, Resulted NO GROWTH AFTER 1 DAY Objective Assessment Acute Resp failure - better. ? plug Malfunctioning Port -s/p repair 12/15 Leukocytosis - ? reactive - some better. 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
[2018-12-16] MEDS: LANSOPRAZOLE 30 MG TAB.RAP.DR PEG SCH ×2 (07:30→18:01)
[2018-12-16] MEDS: METOCLOPRAMIDE 10 MG TABLET. PO SCH ×5 (07:30→20:43)
[2018-12-16] MEDS: ALBUTEROL SULFATE 2.5 MG/3 ML NEBU. NEB SCH ×4 (08:31→20:24)
[2018-12-16] MEDS: LACTOBACILLUS RHAMNOSUS GG 1 CAPSULE. PO SCH ×2 (09:00→20:42)
[2018-12-16] MEDS: amLODIPine BESYLATE 5 MG TABLET PO SCH (09:00)
[2018-12-16] MEDS: DONEPEZIL HCL 5 MG TABLET. PO SCH ×2 (09:00→20:43)
[2018-12-16] MEDS: ONDANSETRON PF 4 MG/2 ML VIAL. IV PRN ×2 (09:01→20:28)
--- NOTE | 2018-12-16 09:24 | PDOC2 ---
GI CONSULT Reason For Consult: PEG malfunction HPI: HPI: 78 y/o female admitted w/ SOA. H/o laryngeal cancer s/p chemo/rad w/ dysphagia requiring PEG since ~2008. Additional h/o lung cancer s/p radiation w/ resultant dysphagia requiring PEG since ~2008. EGD w/ PEG replacement by Dr. Taylor in 05/2016. Attempted endoscopic replacement in 03/2017 not successful due to upper esophageal stricture/extrinsic compression from trach and scar tissue - surgery replaced at bedside. Had also seen a couple times re: malpositioned/leaking PEG - bumper tightened. H/o GERD and suspected gastroparesis. From previous encounters - on Prevacid and Reglan. H/o C Diff. No previous colonoscopy. Past imaging w/ chronic mild dilatation of CBD. She has declined HIDA in the past. Iron deficient in 06/2017. D/w Dr. Taylor - he was called last night and told PEG wasn't functioning. Per RN - received in report that pt was c/o abd pain and receiving Percocet through PEG, then KUB was checked. History difficult from pt - report abd pain and nausea, says she stooled last night. 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 Vitals: Vitals: Vital Signs Date Time Temp Pulse Resp B/P (MAP) Pulse Ox O2 Delivery O2 Flow Rate FiO2 12/16/18 09:01 20 Tracheal Collar 10.0 12/16/18 08:31 100 12/16/18 07:00 98.4 89 160/74 (102) 98.4 Labs: Labs: Laboratory Tests Test 12/16/18 04:00 White Blood Count 14.1 x10^3/uL (4.0-11.0) Red Blood Count 4.14 x10^6/uL (3.50-5.40) Hemoglobin 9.1 g/dL (12.0-15.5) Hematocrit 30.8 % (36.0-47.0) Mean Corpuscular Volume 75 fL (79-100) Mean Corpuscular Hemoglobin 22 pg (25-35) Mean Corpuscular Hemoglobin Concent 29 g/dL (31-37) Red Cell Distribution Width 19.0 % (11.5-14.5) Platelet Count 510 x10^3/uL (140-400) Neutrophils (%) (Auto) 78 % (31-73) Lymphocytes (%) (Auto) 15 % (24-48) Monocytes (%) (Auto) 6 % (0-9) Eosinophils (%) (Auto) 1 % (0-3) Basophils (%) (Auto) 1 % (0-3) Neutrophils # (Auto) 11.0 x10^3uL (1.8-7.7) Lymphocytes # (Auto) 2.1 x10^3/uL (1.0-4.8) Monocytes # (Auto) 0.8 x10^3/uL (0.0-1.1) Eosinophils # (Auto) 0.1 x10^3/uL (0.0-0.7) Basophils # (Auto) 0.1 x10^3/uL (0.0-0.2) Sodium Level 140 mmol/L (136-145) Potassium Level 4.4 mmol/L (3.5-5.1) Chloride Level 99 mmol/L (98-107) Carbon Dioxide Level 36 mmol/L (21-32) Anion Gap 5 (6-14) Blood Urea Nitrogen 9 mg/dL (7-20) Creatinine 0.7 mg/dL (0.6-1.0) Estimated GFR (Cockcroft-Gault) 98.2 BUN/Creatinine Ratio 13 (6-20) Glucose Level 88 mg/dL (70-99) Calcium Level 9.1 mg/dL (8.5-10.1) Total Bilirubin 0.3 mg/dL (0.2-1.0) Aspartate Amino Transf (AST/SGOT) 20 U/L (15-37) Alanine Aminotransferase (ALT/SGPT) 11 U/L (14-59) Alkaline Phosphatase 68 U/L (46-116) Total Protein 7.9 g/dL (6.4-8.2) Albumin 2.7 g/dL (3.4-5.0) Albumin/Globulin Ratio 0.5 (1.0-1.7) Allergies: Coded Allergies: aspirin (Verified Allergy, Intermediate, hives, 03/16/17) I S O L A T I O N *CONTACT* (Verified Allergy, Unknown, 08/15/18) Medications: Current Medications Medications (Trade) Dose Ordered Sig/Yuliana Route PRN Reason Start Time Stop Time Status Last Admin Dose Admin Ondansetron HCl (Zofran) 4 mg PRN Q6HRS PRN IV NAUSEA/VOMITING 12/15/18 14:15 12/16/18 09:01 Scopolamine (Transderm-Scop) 1 patch Q3DAYS TD 12/15/18 15:15 12/15/18 15:25 Morphine Sulfate (Morphine Sulfate) 2 mg PRN Q2HR PRN IV PAIN 12/15/18 19:15 12/16/18 09:01 Imaging: Imaging: KUB IMPRESSION: The PEG tube projects over the hypogastrium. Intraluminal placement of PEG tube cannot be confirmed on a noncontrast exam. Further evaluation with injection of iodinated contrast through the PEG tube recommended. PE: GEN: NAD HEENT: trach LUNGS: diminished HEART: RRR ABD: NABS, S/ND, periumbilical tenderness, G tube EXTREMITY: No edema SKIN: No rashes, no jaundice NEURO/PSYCH: drowsy A/P: A/P: Acute/chronic resp failure Abd pain, nausea and/or PEG malfunction - details unclear -- Reviewed w/ Dr. Taylor - unclear if PEG functioning - check Gastrografin study or CT. Resume PPI - IV for now. Could also change to IV Reglan. Called by RN - now clear that PEG not functioning, unable to do KUB w/ Gastrografin. Reviewed again w/ Dr. Taylor - will ask surgery to see as previously unable to replace endoscopically 2/2 stricture/compression. LE ROSENTHAL Dec 16, 2018 09:24
[2018-12-16] MEDS ORDERED: IOHEXOL 300 MG/ML 50 ML VIAL. PO ONE (09:30)
[2018-12-16] MEDS ORDERED: CONTRAST GIVEN. MC PRN ×2 (09:45→13:45)
[2018-12-16 11:00] VITALS: BP 155/72
--- NOTE | 2018-12-16 11:45 | NUR ---
SS following up with discharge planning. SS discussed with pt's RN. [facility] recommended. SS contacted pt's Mark MARTINEZ, and discussed and Mark reported that pt and pt's sister would need to be in agreement. Pt's sister contacted pt's RN and stated that pt will not go to [facility]. Pt's sister reported that pt will return to home with continued services with [facility] and IV infusion with [facility]. Physician notified.
--- NOTE | 2018-12-16 12:12 | PDOC2 ---
CONSULT Date of Consult Date of Consult DATE: 12/16/18 TIME: 12:04 Reason for Consult Reason for Consult: peg malfunction Referring Physician Referring Physician: Dr Taylor Identification/Chief Complaint Chief Complaint SOA Source Source: Chart review, Patient History of Present Illness Reason for Visit: Admitted with SOA She has a hx of laryngeal cancer s/p chemo/rad w/ dysphagia requiring PEG since ~2008, has had previous issues with malfunction, last endoscopic replacement unable due to stricture/scar tissue, Dr Wang replaced at bedside Attempted contrast study, however would not pass through Past Medical History Cardiovascular: HTN Pulmonary: COPD, Previously Intubated, Pneumonia, Other CENTRAL NERVOUS SYSTEM: Other GI: Other Heme/Onc: Anemia NOS, Cancer Hepatobiliary: No pertinent hx Psych: No pertinent hx Musculoskeletal: Osteoarthritis Rheumatologic: No pertinent hx Infectious disease: No pertinent hx Renal/: No pertinent hx Endocrine: No pertinent hx Past Surgical History Past Surgical History: Cataract Removal, Other (peg, trach) Family History Family History: Heart Disease Social History Lives: with Family Domestic Violence: Neg Current Medications Current Medications Current Medications Albuterol/ Ipratropium (Duoneb) 3 ml 1X ONCE NEB Last administered on at 10:30; Start 12/13/18 at 10:30; Stop 12/13/18 at 10:31; Status DC Sodium Chloride 500 ml @ 500 mls/hr 1X ONCE IV Last administered on 12/13/18at 10:30; Start 12/13/18 at 10:30; Stop 12/13/18 at 11:29; Status DC Vancomycin HCl (Vanco Per Pharmacy) 1 each PRN DAILY PRN MC SEE COMMENTS Last administered on 12/13/18at 13:28; Start 12/13/18 at 10:30; Stop 12/13/18 at 19:00; Status DC Vancomycin HCl 1.25 gm/Sodium Chloride 250 ml @ 166.667 mls/hr 1X ONCE IV Last administered on 12/13/18at 10:53; Start 12/13/18 at 10:45; Stop 12/13/18 at 12: 14; Status DC Furosemide (Lasix) 20 mg 1X ONCE IVP Last administered on 12/13/18at 15:30; Start 12/13/18 at 12:15; Stop 12/13/18 at 12:17; Status DC Vancomycin HCl 1 gm/Sodium Chloride 250 ml @ 250 mls/hr Q12H IV ; Start at 23:00; Stop 12/13/18 at 23:00; Status DC Vancomycin HCl 750 mg/Sodium Chloride 250 ml @ 250 mls/hr Q12H IV ; Start at 23:00; Stop 12/13/18 at 23:00; Status DC Vancomycin HCl (Vancomycin Trough Level) 1 each 1X ONCE MC ; Start 12/14/18 at 10:30; Stop 12/14/18 at 10:30; Status DC Pharmacy Consult (C.diff Med Screen By Rx) 1 each 1X ONCE MC ; Start 12/13/18 at 14:45; Stop 12/13/18 at 14:46; Status UNV Ceftolozane/ Tazobactam 750 mg/ Sodium Chloride 100 ml @ 100 mls/hr Q8HRS IV Last administered on 12/16/18 05:12; Start 12/13/18 at 15:30 Amlodipine Besylate (Norvasc) 5 mg DAILY PO Last administered on 12/14/18 08:12 ; Start 12/13/18 at 15:30; Stop 12/14/18 at 11:52; Status DC Fentanyl (Duragesic 50mcg/ Hr Patch) 1 patch Q3DAYS TD ; Start 12/14/18 at 09:00 Gabapentin (Neurontin) 300 mg PRN BID PRN PO NERVE PAIN Last administered on 09:13; Start 12/13/18 at 14:45 Lactobacillus Rhamnosus (Culturelle) 1 cap BID PO Last administered on 09:14; Start 12/13/18 at 21:00 Metoclopramide HCl (Reglan) 5 mg QIDACHS PO Last administered on 12/15/18 17:49 ; Start 12/13/18 at 16:30 Ondansetron HCl (Zofran Odt) 4 mg QIDPRN PRN PEG NAUSEA/VOMITING Last administered on 12/14/18 23:25; Start 12/13/18 at 14:45 Oxycodone/ Acetaminophen (Percocet 7.5/ 325) 1 tab PRN QID PRN PO PAIN Last administered on 12/15/18 15:26; Start 12/13/18 at 14:45 Lansoprazole (Prevacid) 30 mg BIDBFRMEAL PEG Last administered on 12/15/18at 17: 50; Start 12/13/18 at 16:30 Non-Formulary Medication (Albuterol Sulfate (Albuterol Sulfate Neb Soln)) 1 vial QID NEB ; Start 12/13/18 at 17:00; Status UNV Donepezil HCl (Aricept) 5 mg BID PO Last administered on 12/15/18 09:14; Start 12/13/18 at 21:00 Albuterol Sulfate (Ventolin Neb Soln) 2.5 mg RTQID NEB Last administered on 12/16at 08:31; Start 12/13/18 at 16:00 Aspirin (Ecotrin) 81 mg DAILYWBKFT PO ; Start 12/14/18 at 08:00; Status UNV Amlodipine Besylate (Norvasc) 10 mg DAILY PO Last administered on 12/15/18at 09: 13; Start 12/15/18 at 09:00 Furosemide (Lasix) 20 mg 1X ONCE IVP Last administered on 12/14/18at 13:40; Start 12/14/18 at 12:00; Stop 12/14/18 at 12:02; Status DC Amlodipine Besylate (Norvasc) 5 mg 1X ONCE PO Last administered on 12/14/18at 13 :39; Start 12/14/18 at 12:00; Stop 12/14/18 at 12:02; Status DC Hydralazine HCl (Apresoline Inj) 10 mg PRN Q4HRS PRN IVP ELEVATED BP, SEE COMMENTS; Start 12/14/18 at 12:00 Alteplase, Recombinant (Cathflo For Central Catheter Clearance) 1 mg 1X ONCE INT CAT Last administered on 12/14/18at 15:15; Start 12/14/18 at 13:15; Stop at 13:20; Status DC Oxycodone/ Acetaminophen (Percocet 7.5/ 325) 1 tab 1X ONCE PEG Last administered on 12/14/18at 21:36; Start 12/14/18 at 21:30; Stop 12/14/18 at 21:31; Status DC Iohexol (Omnipaque 240 Mg/ml) 50 ml STK-MED ONCE .ROUTE ; Start 12/15/18 at 09:51 ; Stop 12/15/18 at 09:52; Status DC Iohexol (Omnipaque 240 Mg/ml) 5 ml 1X ONCE IV ; Start 12/15/18 at 10:30; Stop at 10:33; Status DC Info (CONTRAST GIVEN -- Rx MONITORING) 1 each PRN DAILY PRN MC SEE COMMENTS; Start 12/15/18 at 10:45; Stop 12/17/18 at 10:44 Ondansetron HCl (Zofran) 4 mg PRN Q6HRS PRN IV NAUSEA/VOMITING Last administered on 12/16/18at 09:01; Start 12/15/18 at 14:15 Scopolamine (Transderm-Scop) 1 patch Q3DAYS TD Last administered on 12/15/18at 15 :25; Start 12/15/18 at 15:15 Morphine Sulfate (Morphine Sulfate) 2 mg PRN Q2HR PRN IV PAIN Last administered on 12/16/18at 09:01; Start 12/15/18 at 19:15 Iohexol (Omnipaque 300 Mg/ml) 50 ml 1X ONCE PO ; Start 12/16/18 at 09:30; Stop 12/16/18 at 09:31; Status DC Info (CONTRAST GIVEN -- Rx MONITORING) 1 each PRN DAILY PRN MC SEE COMMENTS; Start 12/16/18 at 09:45; Stop 12/18/18 at 09:44 Pantoprazole Sodium (PROTONIX VIAL for IV PUSH) 40 mg DAILYAC IVP ; Start at 12:00 Active Scripts Active Percocet 7.5-325 Mg Tablet (Oxycodone/Acetaminophen) 1 Each Tablet 1 Tab PO QID PRN MDD 1 FENTANYL 50mcg/hr (Fentanyl) 1 Each Patch.td72 1 Patch TP Q3DAYS MDD 1 Culturelle (Lactobacillus Rhamnosus Gg) 1 Each Cap.sprink 1 Cap PO BID 30 Days Reported Albuterol Sulfate Neb Soln (Albuterol Sulfate) 0.63 Mg/3 Ml Vial.neb 1 Vial NEB QID Gabapentin (Gabapentin) 300 Mg Capsule 300 Mg PO BID PRN Amlodipine Besylate 5 Mg Tablet 5 Mg PO DAILY Pantoprazole Sodium 40 Mg Tablet.dr 40 Mg PEG BID Donepezil Hcl 5 Mg Tablet 5 Mg PEG BID Reglan (Metoclopramide Hcl) 10 Mg Tablet 5 Mg PO QIDACHS Cyproheptadine Hcl 2 Mg/5 Ml Syrup 10 Ml PEG TID Ondansetron Odt (Ondansetron) 4 Mg Tab.rapdis 4 Mg PEG QIDPRN PRN Allergies Allergies: Coded Allergies: aspirin (Verified Allergy, Intermediate, hives, 03/16/17) I S O L A T I O N *CONTACT* (Verified Allergy, Unknown, 08/15/18) ROS Review of System nods to answer questions General: No: Chills, Other (fevers) PSYCHOLOGICAL ROS: No: Depression Eyes: No Blurry vision, No Double vision HEENT: YES: Sore Throat; No: Heacaches Hematological and Lymphatic: No: Bleeding Problems, Blood Clots Respiratory: YES: Shortness of breath; No: Hemoptysis Cardiovascular: No Chest Pain, No Palpitations Gastrointestinal: Yes Nausea, Yes Abdominal Pain; No Vomiting Genitourinary: No Dysuria, No Retention Musculoskeletal: No Joint Pain, No Muscle Pain Neurological: No Impaired Coord/balance, No Numbness/Tingling Skin: No Pruritus, No Rash Physical Exam General: Alert, Cooperative, No acute distress HEENT: Other (trach in place) Lungs: Normal air movement Heart: Regular rate, Normal S1, Normal S2 Abdomen: Soft, Other (peg in place) Extremities: No clubbing, No cyanosis Skin: No rashes, No breakdown Neuro: Normal gait, Sensation intact Psych/Mental Status: Mental status NL, Mood NL MUSCULOSKELETAL: No deformity, No swelling Vitals VITALS Vital Signs Date Time Temp Pulse Resp B/P (MAP) Pulse Ox O2 Delivery O2 Flow Rate FiO2 12/16/18 11:00 97.5 94 18 155/72 (99) 99 Tracheal Collar 10.0 97.5 Labs Labs Laboratory Tests Test 12/15/18 04:25 12/16/18 04:00 White Blood Count 18.6 x10^3/uL (4.0-11.0) 14.1 x10^3/uL (4.0-11.0) Red Blood Count 4.06 x10^6/uL (3.50-5.40) 4.14 x10^6/uL (3.50-5.40) Hemoglobin 9.0 g/dL (12.0-15.5) 9.1 g/dL (12.0-15.5) Hematocrit 30.8 % (36.0-47.0) 30.8 % (36.0-47.0) Mean Corpuscular Volume 76 fL (79-100) 75 fL (79-100) Mean Corpuscular Hemoglobin 22 pg (25-35) 22 pg (25-35) Mean Corpuscular Hemoglobin Concent 29 g/dL (31-37) 29 g/dL (31-37) Red Cell Distribution Width 19.0 % (11.5-14.5) 19.0 % (11.5-14.5) Platelet Count 498 x10^3/uL (140-400) 510 x10^3/uL (140-400) Neutrophils (%) (Auto) 83 % (31-73) 78 % (31-73) Lymphocytes (%) (Auto) 8 % (24-48) 15 % (24-48) Monocytes (%) (Auto) 6 % (0-9) 6 % (0-9) Eosinophils (%) (Auto) 2 % (0-3) 1 % (0-3) Basophils (%) (Auto) 1 % (0-3) 1 % (0-3) Neutrophils # (Auto) 15.5 x10^3uL (1.8-7.7) 11.0 x10^3uL (1.8-7.7) Lymphocytes # (Auto) 1.6 x10^3/uL (1.0-4.8) 2.1 x10^3/uL (1.0-4.8) Monocytes # (Auto) 1.1 x10^3/uL (0.0-1.1) 0.8 x10^3/uL (0.0-1.1) Eosinophils # (Auto) 0.3 x10^3/uL (0.0-0.7) 0.1 x10^3/uL (0.0-0.7) Basophils # (Auto) 0.2 x10^3/uL (0.0-0.2) 0.1 x10^3/uL (0.0-0.2) Creatinine 0.8 mg/dL (0.6-1.0) 0.7 mg/dL (0.6-1.0) Estimated GFR (Cockcroft-Gault) 84.2 98.2 Lipase 312 U/L (73-393) Sodium Level 140 mmol/L (136-145) Potassium Level 4.4 mmol/L (3.5-5.1) Chloride Level 99 mmol/L (98-107) Carbon Dioxide Level 36 mmol/L (21-32) Anion Gap 5 (6-14) Blood Urea Nitrogen 9 mg/dL (7-20) BUN/Creatinine Ratio 13 (6-20) Glucose Level 88 mg/dL (70-99) Calcium Level 9.1 mg/dL (8.5-10.1) Total Bilirubin 0.3 mg/dL (0.2-1.0) Aspartate Amino Transf (AST/SGOT) 20 U/L (15-37) Alanine Aminotransferase (ALT/SGPT) 11 U/L (14-59) Alkaline Phosphatase 68 U/L (46-116) Total Protein 7.9 g/dL (6.4-8.2) Albumin 2.7 g/dL (3.4-5.0) Albumin/Globulin Ratio 0.5 (1.0-1.7) Laboratory Tests Test 12/16/18 04:00 White Blood Count 14.1 x10^3/uL (4.0-11.0) Red Blood Count 4.14 x10^6/uL (3.50-5.40) Hemoglobin 9.1 g/dL (12.0-15.5) Hematocrit 30.8 % (36.0-47.0) Mean Corpuscular Volume 75 fL (79-100) Mean Corpuscular Hemoglobin 22 pg (25-35) Mean Corpuscular Hemoglobin Concent 29 g/dL (31-37) Red Cell Distribution Width 19.0 % (11.5-14.5) Platelet Count 510 x10^3/uL (140-400) Neutrophils (%) (Auto) 78 % (31-73) Lymphocytes (%) (Auto) 15 % (24-48) Monocytes (%) (Auto) 6 % (0-9) Eosinophils (%) (Auto) 1 % (0-3) Basophils (%) (Auto) 1 % (0-3) Neutrophils # (Auto) 11.0 x10^3uL (1.8-7.7) Lymphocytes # (Auto) 2.1 x10^3/uL (1.0-4.8) Monocytes # (Auto) 0.8 x10^3/uL (0.0-1.1) Eosinophils # (Auto) 0.1 x10^3/uL (0.0-0.7) Basophils # (Auto) 0.1 x10^3/uL (0.0-0.2) Sodium Level 140 mmol/L (136-145) Potassium Level 4.4 mmol/L (3.5-5.1) Chloride Level 99 mmol/L (98-107) Carbon Dioxide Level 36 mmol/L (21-32) Anion Gap 5 (6-14) Blood Urea Nitrogen 9 mg/dL (7-20) Creatinine 0.7 mg/dL (0.6-1.0) Estimated GFR (Cockcroft-Gault) 98.2 BUN/Creatinine Ratio 13 (6-20) Glucose Level 88 mg/dL (70-99) Calcium Level 9.1 mg/dL (8.5-10.1) Total Bilirubin 0.3 mg/dL (0.2-1.0) Aspartate Amino Transf (AST/SGOT) 20 U/L (15-37) Alanine Aminotransferase (ALT/SGPT) 11 U/L (14-59) Alkaline Phosphatase 68 U/L (46-116) Total Protein 7.9 g/dL (6.4-8.2) Albumin 2.7 g/dL (3.4-5.0) Albumin/Globulin Ratio 0.5 (1.0-1.7) Assessment/Plan Assessment/Plan peg malfunction--will ask IR to evaluate for possible tube exchange NATIVIDAD GONZALEZ APRN Dec 16, 2018 12:12
[2018-12-16] MEDS: PANTOPRAZOLE IV PUSH 40 MG VIAL. IVP SCH (12:29)
--- NOTE | 2018-12-16 13:17 | RAD ---
Fluoroscopic evaluation right internal jugular port Indication: Port malfunction Discussion: Informed consent was obtained. The right upper chest prepped and draped using sterile barrier technique. Fluoroscopic evaluation demonstrates the right internal jugular port to be in expected position. The port was accessed using standard technique. The port was found to flush and aspirate normally. Contrast was administered which demonstrates no abnormal extravasation. The catheter is patent. Brisk dispersion of contrast in the right atrium noted. The port was flushed. The port was left accessed. Sterile dressings were applied. Fluoroscopy time: 0.1 Minutes Dose area product: 5 Gycm2 Impression: Normal appearance and function of the right internal jugular port
[2018-12-16] MEDS ORDERED: IOHEXOL 240 MG/ML 50ML VIAL. ONE (13:28)
--- NOTE | 2018-12-16 13:38 | PDOC ---
PROGRESS NOTES Chief Complaint Chief Complaint Assessment and plan Acute on chronic respiratory failure; multifactorial with recurrent pneumonia, COPD, and mild CHF. appears better PEG tube malfunction H/o recurrent pneumonia with multidrug-resistant Pseudomonas and MRSA. ID and pulmonary following Leukocytosis, which seems to be reactive Elevated troponin; highest 0.168, type 2 secondary to demand mediated. EF and WM nml with moderate pulmonary HTN. Acute on chronic diastolic CHF: compensated Hypertension; labile episodes Hx of laryngeal CA and SCC with trach Hx of dysphagia with PEG with TF Dementia Continue with current antibiotics gi consultation for PEG tube malfunction IR accesed PORT again, no issues. Patient seems to be at baseline and seems to be stable from the medical standpoint of view hope to discharge soon, she probably would benefit from [facility] but family not willing to transfer History of Present Illness History of Present Illness Patient with transient loss of iv access overnight, Ir will evaluate port, 22 g iv was started overnight. The patient responds to verbal stimuli and she seems to be quite happy when I mentioned discharge from the hospital. Unable to have a conversation due to tracheostomy but she does seem to understand and participates in the interaction Vitals Vitals Vital Signs Date Time Temp Pulse Resp B/P (MAP) Pulse Ox O2 Delivery O2 Flow Rate FiO2 12/16/18 12:28 96 Tracheal Collar 10.0 12/16/18 12:28 20 12/16/18 11:00 97.5 94 155/72 (99) 97.5 Physical Exam Physical Exam CONSTITUTIONAL: She is very alert. She is cooperative. She is in no acute distress. Looks well HEENT: Oral cavity, pharynx is clear. Trach without signs of complications. LUNGS: Clear. She has a Port-A-Cath in the right chest.- no redness - less edema HEART: S1, S2. ABDOMEN: Soft, nontender, no guarding. PEG tube without complications. EXTREMITIES: No clubbing, cyanosis. Are thin. SKIN: Warm to touch without signs of rash. NEUROLOGIC: She is alert, follows simple commands. Affect is pleasant. General: Alert, Cooperative, No acute distress Heart: Regular rate, Normal S1, Normal S2 Lungs: Other (rhonchi) Abdomen: Soft, Other (peg in place) Extremities: No clubbing, No cyanosis Skin: No rashes, No breakdown Labs LABS Laboratory Tests Test 12/16/18 04:00 White Blood Count 14.1 x10^3/uL (4.0-11.0) Red Blood Count 4.14 x10^6/uL (3.50-5.40) Hemoglobin 9.1 g/dL (12.0-15.5) Hematocrit 30.8 % (36.0-47.0) Mean Corpuscular Volume 75 fL (79-100) Mean Corpuscular Hemoglobin 22 pg (25-35) Mean Corpuscular Hemoglobin Concent 29 g/dL (31-37) Red Cell Distribution Width 19.0 % (11.5-14.5) Platelet Count 510 x10^3/uL (140-400) Neutrophils (%) (Auto) 78 % (31-73) Lymphocytes (%) (Auto) 15 % (24-48) Monocytes (%) (Auto) 6 % (0-9) Eosinophils (%) (Auto) 1 % (0-3) Basophils (%) (Auto) 1 % (0-3) Neutrophils # (Auto) 11.0 x10^3uL (1.8-7.7) Lymphocytes # (Auto) 2.1 x10^3/uL (1.0-4.8) Monocytes # (Auto) 0.8 x10^3/uL (0.0-1.1) Eosinophils # (Auto) 0.1 x10^3/uL (0.0-0.7) Basophils # (Auto) 0.1 x10^3/uL (0.0-0.2) Sodium Level 140 mmol/L (136-145) Potassium Level 4.4 mmol/L (3.5-5.1) Chloride Level 99 mmol/L (98-107) Carbon Dioxide Level 36 mmol/L (21-32) Anion Gap 5 (6-14) Blood Urea Nitrogen 9 mg/dL (7-20) Creatinine 0.7 mg/dL (0.6-1.0) Estimated GFR (Cockcroft-Gault) 98.2 BUN/Creatinine Ratio 13 (6-20) Glucose Level 88 mg/dL (70-99) Calcium Level 9.1 mg/dL (8.5-10.1) Total Bilirubin 0.3 mg/dL (0.2-1.0) Aspartate Amino Transf (AST/SGOT) 20 U/L (15-37) Alanine Aminotransferase (ALT/SGPT) 11 U/L (14-59) Alkaline Phosphatase 68 U/L (46-116) Total Protein 7.9 g/dL (6.4-8.2) Albumin 2.7 g/dL (3.4-5.0) Albumin/Globulin Ratio 0.5 (1.0-1.7) Comment Review of Relevant I have reviewed the following items miko (where applicable) has been applied. Labs Laboratory Tests Test 12/15/18 04:25 12/16/18 04:00 White Blood Count 18.6 x10^3/uL (4.0-11.0) 14.1 x10^3/uL (4.0-11.0) Red Blood Count 4.06 x10^6/uL (3.50-5.40) 4.14 x10^6/uL (3.50-5.40) Hemoglobin 9.0 g/dL (12.0-15.5) 9.1 g/dL (12.0-15.5) Hematocrit 30.8 % (36.0-47.0) 30.8 % (36.0-47.0) Mean Corpuscular Volume 76 fL (79-100) 75 fL (79-100) Mean Corpuscular Hemoglobin 22 pg (25-35) 22 pg (25-35) Mean Corpuscular Hemoglobin Concent 29 g/dL (31-37) 29 g/dL (31-37) Red Cell Distribution Width 19.0 % (11.5-14.5) 19.0 % (11.5-14.5) Platelet Count 498 x10^3/uL (140-400) 510 x10^3/uL (140-400) Neutrophils (%) (Auto) 83 % (31-73) 78 % (31-73) Lymphocytes (%) (Auto) 8 % (24-48) 15 % (24-48) Monocytes (%) (Auto) 6 % (0-9) 6 % (0-9) Eosinophils (%) (Auto) 2 % (0-3) 1 % (0-3) Basophils (%) (Auto) 1 % (0-3) 1 % (0-3) Neutrophils # (Auto) 15.5 x10^3uL (1.8-7.7) 11.0 x10^3uL (1.8-7.7) Lymphocytes # (Auto) 1.6 x10^3/uL (1.0-4.8) 2.1 x10^3/uL (1.0-4.8) Monocytes # (Auto) 1.1 x10^3/uL (0.0-1.1) 0.8 x10^3/uL (0.0-1.1) Eosinophils # (Auto) 0.3 x10^3/uL (0.0-0.7) 0.1 x10^3/uL (0.0-0.7) Basophils # (Auto) 0.2 x10^3/uL (0.0-0.2) 0.1 x10^3/uL (0.0-0.2) Creatinine 0.8 mg/dL (0.6-1.0) 0.7 mg/dL (0.6-1.0) Estimated GFR (Cockcroft-Gault) 84.2 98.2 Lipase 312 U/L (73-393) Sodium Level 140 mmol/L (136-145) Potassium Level 4.4 mmol/L (3.5-5.1) Chloride Level 99 mmol/L (98-107) Carbon Dioxide Level 36 mmol/L (21-32) Anion Gap 5 (6-14) Blood Urea Nitrogen 9 mg/dL (7-20) BUN/Creatinine Ratio 13 (6-20) Glucose Level 88 mg/dL (70-99) Calcium Level 9.1 mg/dL (8.5-10.1) Total Bilirubin 0.3 mg/dL (0.2-1.0) Aspartate Amino Transf (AST/SGOT) 20 U/L (15-37) Alanine Aminotransferase (ALT/SGPT) 11 U/L (14-59) Alkaline Phosphatase 68 U/L (46-116) Total Protein 7.9 g/dL (6.4-8.2) Albumin 2.7 g/dL (3.4-5.0) Albumin/Globulin Ratio 0.5 (1.0-1.7) Laboratory Tests Test 12/16/18 04:00 White Blood Count 14.1 x10^3/uL (4.0-11.0) Red Blood Count 4.14 x10^6/uL (3.50-5.40) Hemoglobin 9.1 g/dL (12.0-15.5) Hematocrit 30.8 % (36.0-47.0) Mean Corpuscular Volume 75 fL (79-100) Mean Corpuscular Hemoglobin 22 pg (25-35) Mean Corpuscular Hemoglobin Concent 29 g/dL (31-37) Red Cell Distribution Width 19.0 % (11.5-14.5) Platelet Count 510 x10^3/uL (140-400) Neutrophils (%) (Auto) 78 % (31-73) Lymphocytes (%) (Auto) 15 % (24-48) Monocytes (%) (Auto) 6 % (0-9) Eosinophils (%) (Auto) 1 % (0-3) Basophils (%) (Auto) 1 % (0-3) Neutrophils # (Auto) 11.0 x10^3uL (1.8-7.7) Lymphocytes # (Auto) 2.1 x10^3/uL (1.0-4.8) Monocytes # (Auto) 0.8 x10^3/uL (0.0-1.1) Eosinophils # (Auto) 0.1 x10^3/uL (0.0-0.7) Basophils # (Auto) 0.1 x10^3/uL (0.0-0.2) Sodium Level 140 mmol/L (136-145) Potassium Level 4.4 mmol/L (3.5-5.1) Chloride Level 99 mmol/L (98-107) Carbon Dioxide Level 36 mmol/L (21-32) Anion Gap 5 (6-14) Blood Urea Nitrogen 9 mg/dL (7-20) Creatinine 0.7 mg/dL (0.6-1.0) Estimated GFR (Cockcroft-Gault) 98.2 BUN/Creatinine Ratio 13 (6-20) Glucose Level 88 mg/dL (70-99) Calcium Level 9.1 mg/dL (8.5-10.1) Total Bilirubin 0.3 mg/dL (0.2-1.0) Aspartate Amino Transf (AST/SGOT) 20 U/L (15-37) Alanine Aminotransferase (ALT/SGPT) 11 U/L (14-59) Alkaline Phosphatase 68 U/L (46-116) Total Protein 7.9 g/dL (6.4-8.2) Albumin 2.7 g/dL (3.4-5.0) Albumin/Globulin Ratio 0.5 (1.0-1.7) Microbiology 12/13/18 Blood Culture - Preliminary, Resulted NO GROWTH AFTER 3 DAYS Medications Current Medications Albuterol/ Ipratropium (Duoneb) 3 ml 1X ONCE NEB Last administered on at 10:30; Start 12/13/18 at 10:30; Stop 12/13/18 at 10:31; Status DC Sodium Chloride 500 ml @ 500 mls/hr 1X ONCE IV Last administered on 12/13/18at 10:30; Start 12/13/18 at 10:30; Stop 12/13/18 at 11:29; Status DC Vancomycin HCl (Vanco Per Pharmacy) 1 each PRN DAILY PRN MC SEE COMMENTS Last administered on 12/13/18at 13:28; Start 12/13/18 at 10:30; Stop 12/13/18 at 19:00; Status DC Vancomycin HCl 1.25 gm/Sodium Chloride 250 ml @ 166.667 mls/hr 1X ONCE IV Last administered on 12/13/18at 10:53; Start 12/13/18 at 10:45; Stop 12/13/18 at 12: 14; Status DC Furosemide (Lasix) 20 mg 1X ONCE IVP Last administered on 12/13/18at 15:30; Start 12/13/18 at 12:15; Stop 12/13/18 at 12:17; Status DC Vancomycin HCl 1 gm/Sodium Chloride 250 ml @ 250 mls/hr Q12H IV ; Start at 23:00; Stop 12/13/18 at 23:00; Status DC Vancomycin HCl 750 mg/Sodium Chloride 250 ml @ 250 mls/hr Q12H IV ; Start at 23:00; Stop 12/13/18 at 23:00; Status DC Vancomycin HCl (Vancomycin Trough Level) 1 each 1X ONCE MC ; Start 12/14/18 at 10:30; Stop 12/14/18 at 10:30; Status DC Pharmacy Consult (C.diff Med Screen By Rx) 1 each 1X ONCE MC ; Start 12/13/18 at 14:45; Stop 12/13/18 at 14:46; Status UNV Ceftolozane/ Tazobactam 750 mg/ Sodium Chloride 100 ml @ 100 mls/hr Q8HRS IV Last administered on 12/16/18 05:12; Start 12/13/18 at 15:30 Amlodipine Besylate (Norvasc) 5 mg DAILY PO Last administered on 12/14/18 08:12 ; Start 12/13/18 at 15:30; Stop 12/14/18 at 11:52; Status DC Fentanyl (Duragesic 50mcg/ Hr Patch) 1 patch Q3DAYS TD ; Start 12/14/18 at 09:00 Gabapentin (Neurontin) 300 mg PRN BID PRN PO NERVE PAIN Last administered on 09:13; Start 12/13/18 at 14:45 Lactobacillus Rhamnosus (Culturelle) 1 cap BID PO Last administered on 09:14; Start 12/13/18 at 21:00 Metoclopramide HCl (Reglan) 5 mg QIDACHS PO Last administered on 12/15/18 17:49 ; Start 12/13/18 at 16:30 Ondansetron HCl (Zofran Odt) 4 mg QIDPRN PRN PEG NAUSEA/VOMITING Last administered on 12/14/18 23:25; Start 12/13/18 at 14:45 Oxycodone/ Acetaminophen (Percocet 7.5/ 325) 1 tab PRN QID PRN PO PAIN Last administered on 12/15/18 15:26; Start 12/13/18 at 14:45 Lansoprazole (Prevacid) 30 mg BIDBFRMEAL PEG Last administered on 12/15/18 17: 50; Start 12/13/18 at 16:30 Non-Formulary Medication (Albuterol Sulfate (Albuterol Sulfate Neb Soln)) 1 vial QID NEB ; Start 12/13/18 at 17:00; Status UNV Donepezil HCl (Aricept) 5 mg BID PO Last administered on 12/15/18 09:14; Start 12/13/18 at 21:00 Albuterol Sulfate (Ventolin Neb Soln) 2.5 mg RTQID NEB Last administered on 12/16 12:28; Start 12/13/18 at 16:00 Aspirin (Ecotrin) 81 mg DAILYWBKFT PO ; Start 12/14/18 at 08:00; Status UNV Amlodipine Besylate (Norvasc) 10 mg DAILY PO Last administered on 12/15/18at 09: 13; Start 12/15/18 at 09:00 Furosemide (Lasix) 20 mg 1X ONCE IVP Last administered on 12/14/18at 13:40; Start 12/14/18 at 12:00; Stop 12/14/18 at 12:02; Status DC Amlodipine Besylate (Norvasc) 5 mg 1X ONCE PO Last administered on 12/14/18at 13 :39; Start 12/14/18 at 12:00; Stop 12/14/18 at 12:02; Status DC Hydralazine HCl (Apresoline Inj) 10 mg PRN Q4HRS PRN IVP ELEVATED BP, SEE COMMENTS; Start 12/14/18 at 12:00 Alteplase, Recombinant (Cathflo For Central Catheter Clearance) 1 mg 1X ONCE INT CAT Last administered on 12/14/18at 15:15; Start 12/14/18 at 13:15; Stop at 13:20; Status DC Oxycodone/ Acetaminophen (Percocet 7.5/ 325) 1 tab 1X ONCE PEG Last administered on 12/14/18at 21:36; Start 12/14/18 at 21:30; Stop 12/14/18 at 21:31; Status DC Iohexol (Omnipaque 240 Mg/ml) 50 ml STK-MED ONCE .ROUTE ; Start 12/15/18 at 09:51 ; Stop 12/15/18 at 09:52; Status DC Iohexol (Omnipaque 240 Mg/ml) 5 ml 1X ONCE IV ; Start 12/15/18 at 10:30; Stop at 10:33; Status DC Info (CONTRAST GIVEN -- Rx MONITORING) 1 each PRN DAILY PRN MC SEE COMMENTS; Start 12/15/18 at 10:45; Stop 12/17/18 at 10:44 Ondansetron HCl (Zofran) 4 mg PRN Q6HRS PRN IV NAUSEA/VOMITING Last administered on 12/16/18at 09:01; Start 12/15/18 at 14:15 Scopolamine (Transderm-Scop) 1 patch Q3DAYS TD Last administered on 12/15/18at 15 :25; Start 12/15/18 at 15:15 Morphine Sulfate (Morphine Sulfate) 2 mg PRN Q2HR PRN IV PAIN Last administered on 12/16/18at 12:28; Start 12/15/18 at 19:15 Iohexol (Omnipaque 300 Mg/ml) 50 ml 1X ONCE PO ; Start 12/16/18 at 09:30; Stop 12/16/18 at 09:31; Status DC Info (CONTRAST GIVEN -- Rx MONITORING) 1 each PRN DAILY PRN MC SEE COMMENTS; Start 12/16/18 at 09:45; Stop 12/18/18 at 09:44 Pantoprazole Sodium (PROTONIX VIAL for IV PUSH) 40 mg DAILYAC IVP Last administered on 12/16/18at 12:29; Start 12/16/18 at 12:00 Iohexol (Omnipaque 240 Mg/ml) 50 ml STK-MED ONCE .ROUTE ; Start 12/16/18 at 13:28 ; Stop 12/16/18 at 13:29; Status DC Active Scripts Active Percocet 7.5-325 Mg Tablet (Oxycodone/Acetaminophen) 1 Each Tablet 1 Tab PO QID PRN MDD 1 FENTANYL 50mcg/hr (Fentanyl) 1 Each Patch.td72 1 Patch TP Q3DAYS MDD 1 Culturelle (Lactobacillus Rhamnosus Gg) 1 Each Cap.sprink 1 Cap PO BID 30 Days Reported Albuterol Sulfate Neb Soln (Albuterol Sulfate) 0.63 Mg/3 Ml Vial.neb 1 Vial NEB QID Gabapentin (Gabapentin) 300 Mg Capsule 300 Mg PO BID PRN Amlodipine Besylate 5 Mg Tablet 5 Mg PO DAILY Pantoprazole Sodium 40 Mg Tablet. 40 Mg PEG BID Donepezil Hcl 5 Mg Tablet 5 Mg PEG BID Reglan (Metoclopramide Hcl) 10 Mg Tablet 5 Mg PO QIDACHS Cyproheptadine Hcl 2 Mg/5 Ml Syrup 10 Ml PEG TID Ondansetron Odt (Ondansetron) 4 Mg Tab.rapdis 4 Mg PEG QIDPRN PRN Vitals/I & O Vital Sign - Last 24 Hours 12/15/18 12/15/18 12/15/18 12/15/18 15:00 15:26 16:18 16:26 Temp 99.2 99.2 Pulse 112 Resp 20 B/P (MAP) 131/60 (83) Pulse Ox 90 93 93 93 O2 Delivery Tracheal Collar Tracheal Collar Tracheal Collar Tracheal Collar O2 Flow Rate 10.0 10.0 10.0 12/15/18 12/15/18 12/15/18 12/15/18 19:00 19:50 20:07 20:56 Temp 98.5 98.5 Pulse 104 Resp 19 B/P (MAP) 119/57 (77) Pulse Ox 100 45 O2 Delivery Tracheal Collar Trach Collar Tracheal Collar Tracheal Collar O2 Flow Rate 10.0 10.0 10.0 10.0 12/15/18 12/16/18 12/16/18 12/16/18 23:38 00:01 00:51 03:34 Temp 98.2 98.8 98.2 98.8 Pulse 95 95 Resp 18 18 B/P (MAP) 134/68 (90) 158/80 (106) Pulse Ox 98 93 100 O2 Delivery Tracheal Collar Tracheal Collar Tracheal Collar Tracheal Collar O2 Flow Rate 10.0 10.0 10.0 10.0 12/16/18 12/16/18 12/16/18 12/16/18 03:35 05:12 05:46 07:00 Temp 98.4 98.4 Pulse 89 Resp 20 B/P (MAP) 160/74 (102) Pulse Ox 98 100 O2 Delivery Tracheal Collar Tracheal Collar Tracheal Collar Tracheal Collar O2 Flow Rate 10.0 10.0 10.0 12/16/18 12/16/18 12/16/18 12/16/18 08:00 08:31 09:01 11:00 Temp 97.5 97.5 Pulse 94 Resp 20 18 B/P (MAP) 155/72 (99) Pulse Ox 100 99 O2 Delivery Trach Collar Tracheal Collar Tracheal Collar Tracheal Collar O2 Flow Rate 10.0 10.0 10.0 10.0 12/16/18 12/16/18 12:28 12:28 Resp 20 Pulse Ox 96 O2 Delivery Tracheal Collar Tracheal Collar O2 Flow Rate 10.0 10.0 Intake and Output 12/15/18 12/15/18 12/16/18 14:59 22:59 06:59 Intake Total 1630 ml 150 ml 100 ml Output Total 300 ml 1150 ml 600 ml Balance 1330 ml -1000 ml -500 ml Nutrition Consultation Dietary Evaluation: Recommendations by RD: Increase Calorie Intake Comments: Continue w/TF per current order: Jevity 1.5 bolus QID (1 carton/237 ml per bolus) w/200 ml water flushes QID Expected Outcomes/Goals: TF intake to meet >75% est needs Malnutrition Findings: Body Fat Depletion (Non Severe: Mild Depletion Weight Status: Appropriate HARDEEP LUEVANO MD Dec 16, 2018 13:38
[2018-12-16] MEDS ORDERED: IOHEXOL 240 MG/ML 50ML VIAL. IJ ONE (13:45)
--- NOTE | 2018-12-16 14:43 | PDOC ---
PULMONARY PROGRESS NOTES Subjective trach secretions LESS Vitals Vital Signs Date Time Temp Pulse Resp B/P (MAP) Pulse Ox O2 Delivery O2 Flow Rate FiO2 12/16/18 12:28 96 Tracheal Collar 10.0 12/16/18 12:28 20 12/16/18 11:00 97.5 94 155/72 (99) 97.5 General: Alert, No acute distress Lungs: Other (rhonchi) Cardiovascular: S1, S2 Abdomen: Soft, Non-tender Neuro Exam: Alert Extremities: No Edema Skin: Warm Labs Laboratory Tests Test 12/15/18 04:25 12/16/18 04:00 White Blood Count 18.6 x10^3/uL (4.0-11.0) 14.1 x10^3/uL (4.0-11.0) Red Blood Count 4.06 x10^6/uL (3.50-5.40) 4.14 x10^6/uL (3.50-5.40) Hemoglobin 9.0 g/dL (12.0-15.5) 9.1 g/dL (12.0-15.5) Hematocrit 30.8 % (36.0-47.0) 30.8 % (36.0-47.0) Mean Corpuscular Volume 76 fL (79-100) 75 fL (79-100) Mean Corpuscular Hemoglobin 22 pg (25-35) 22 pg (25-35) Mean Corpuscular Hemoglobin Concent 29 g/dL (31-37) 29 g/dL (31-37) Red Cell Distribution Width 19.0 % (11.5-14.5) 19.0 % (11.5-14.5) Platelet Count 498 x10^3/uL (140-400) 510 x10^3/uL (140-400) Neutrophils (%) (Auto) 83 % (31-73) 78 % (31-73) Lymphocytes (%) (Auto) 8 % (24-48) 15 % (24-48) Monocytes (%) (Auto) 6 % (0-9) 6 % (0-9) Eosinophils (%) (Auto) 2 % (0-3) 1 % (0-3) Basophils (%) (Auto) 1 % (0-3) 1 % (0-3) Neutrophils # (Auto) 15.5 x10^3uL (1.8-7.7) 11.0 x10^3uL (1.8-7.7) Lymphocytes # (Auto) 1.6 x10^3/uL (1.0-4.8) 2.1 x10^3/uL (1.0-4.8) Monocytes # (Auto) 1.1 x10^3/uL (0.0-1.1) 0.8 x10^3/uL (0.0-1.1) Eosinophils # (Auto) 0.3 x10^3/uL (0.0-0.7) 0.1 x10^3/uL (0.0-0.7) Basophils # (Auto) 0.2 x10^3/uL (0.0-0.2) 0.1 x10^3/uL (0.0-0.2) Creatinine 0.8 mg/dL (0.6-1.0) 0.7 mg/dL (0.6-1.0) Estimated GFR (Cockcroft-Gault) 84.2 98.2 Lipase 312 U/L (73-393) Sodium Level 140 mmol/L (136-145) Potassium Level 4.4 mmol/L (3.5-5.1) Chloride Level 99 mmol/L (98-107) Carbon Dioxide Level 36 mmol/L (21-32) Anion Gap 5 (6-14) Blood Urea Nitrogen 9 mg/dL (7-20) BUN/Creatinine Ratio 13 (6-20) Glucose Level 88 mg/dL (70-99) Calcium Level 9.1 mg/dL (8.5-10.1) Total Bilirubin 0.3 mg/dL (0.2-1.0) Aspartate Amino Transf (AST/SGOT) 20 U/L (15-37) Alanine Aminotransferase (ALT/SGPT) 11 U/L (14-59) Alkaline Phosphatase 68 U/L (46-116) Total Protein 7.9 g/dL (6.4-8.2) Albumin 2.7 g/dL (3.4-5.0) Albumin/Globulin Ratio 0.5 (1.0-1.7) Laboratory Tests Test 12/16/18 04:00 White Blood Count 14.1 x10^3/uL (4.0-11.0) Red Blood Count 4.14 x10^6/uL (3.50-5.40) Hemoglobin 9.1 g/dL (12.0-15.5) Hematocrit 30.8 % (36.0-47.0) Mean Corpuscular Volume 75 fL (79-100) Mean Corpuscular Hemoglobin 22 pg (25-35) Mean Corpuscular Hemoglobin Concent 29 g/dL (31-37) Red Cell Distribution Width 19.0 % (11.5-14.5) Platelet Count 510 x10^3/uL (140-400) Neutrophils (%) (Auto) 78 % (31-73) Lymphocytes (%) (Auto) 15 % (24-48) Monocytes (%) (Auto) 6 % (0-9) Eosinophils (%) (Auto) 1 % (0-3) Basophils (%) (Auto) 1 % (0-3) Neutrophils # (Auto) 11.0 x10^3uL (1.8-7.7) Lymphocytes # (Auto) 2.1 x10^3/uL (1.0-4.8) Monocytes # (Auto) 0.8 x10^3/uL (0.0-1.1) Eosinophils # (Auto) 0.1 x10^3/uL (0.0-0.7) Basophils # (Auto) 0.1 x10^3/uL (0.0-0.2) Sodium Level 140 mmol/L (136-145) Potassium Level 4.4 mmol/L (3.5-5.1) Chloride Level 99 mmol/L (98-107) Carbon Dioxide Level 36 mmol/L (21-32) Anion Gap 5 (6-14) Blood Urea Nitrogen 9 mg/dL (7-20) Creatinine 0.7 mg/dL (0.6-1.0) Estimated GFR (Cockcroft-Gault) 98.2 BUN/Creatinine Ratio 13 (6-20) Glucose Level 88 mg/dL (70-99) Calcium Level 9.1 mg/dL (8.5-10.1) Total Bilirubin 0.3 mg/dL (0.2-1.0) Aspartate Amino Transf (AST/SGOT) 20 U/L (15-37) Alanine Aminotransferase (ALT/SGPT) 11 U/L (14-59) Alkaline Phosphatase 68 U/L (46-116) Total Protein 7.9 g/dL (6.4-8.2) Albumin 2.7 g/dL (3.4-5.0) Albumin/Globulin Ratio 0.5 (1.0-1.7) Medications Active Scripts Medications Dose Route/Sig Max Daily Dose Days Date Category Percocet 7.5-325 Mg Tablet (Oxycodone/Acetaminophen) 1 Each Tablet 1 Tab PO QID PRN MDD 1 12/09/18 Rx FENTANYL 50mcg/hr (Fentanyl) 1 Each Patch.td72 1 Patch TP Q3DAYS MDD 1 12/09/18 Rx Albuterol Sulfate Neb Soln (Albuterol Sulfate) 0.63 Mg/3 Ml Vial.neb 1 Vial NEB QID 12/02/18 Reported Gabapentin (Gabapentin) 300 Mg Capsule 300 Mg PO BID PRN 10/19/18 Reported Amlodipine Besylate 5 Mg Tablet 5 Mg PO DAILY 10/19/18 Reported Culturelle (Lactobacillus Rhamnosus Gg) 1 Each Cap.sprink 1 Cap PO BID 30 07/07/17 Rx Pantoprazole Sodium 40 Mg Tablet.dr 40 Mg PEG BID 03/11/17 Reported Donepezil Hcl 5 Mg Tablet 5 Mg PEG BID 03/11/17 Reported Reglan (Metoclopramide Hcl) 10 Mg Tablet 5 Mg PO QIDACHS 03/11/17 Reported Cyproheptadine Hcl 2 Mg/5 Ml Syrup 10 Ml PEG TID 03/11/17 Reported Ondansetron Odt (Ondansetron) 4 Mg Tab.rapdis 4 Mg PEG QIDPRN PRN 06/19/14 Reported Impression . 1. Acute on chronic respiratory failure. 2. 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 3. Abnormal x-ray, possible new pneumonia. 4. Status post trach and PEG. 5. History of laryngeal carcinoma. Plan . 1. Zerbaxa, per ID 2. continue oxygen supplementation. 3. Continue home meds. 4. PRN Trach suction 5. repeat sputum for c/s pending d/w MARY Sebastian MD Dec 16, 2018 14:43
[2018-12-16 14:52] VITALS: BP 177/75
--- NOTE | 2018-12-16 15:38 | NUR ---
BIBIANA following pt. Per pt's sister request, SW met with pt and sister. Discussed about LTAC at [facility]. Pt's sister also tried to encourage pt to consider but pt is declining LTAC placement at this time. Pt wants to continue HH with [facility] upon dc. RN aware.
--- NOTE | 2018-12-16 15:38 | NUR ---
Patient and her family are adamant this client has certain ways she wants things completed such as the manner in which she completes her feedings. Patient has requested her feedings are pushed quickly into her stomach through her tube. Nursing has attempted to educate the patient and her family regarding the possible risks associated with such a quick delivery of the liquid, but patient and family state she wants to do it her way regardless of the possibilities of risk.
[2018-12-16 19:00] VITALS: BP 133/73
[2018-12-16] MEDS: oxyCODONE/APAP 7.5/325 1 TAB TABLET PO PRN (20:43)
[2018-12-16 23:00] VITALS: BP 146/71
[2018-12-17 03:00] VITALS: BP 159/75
[2018-12-17] MEDS: CEFTOLOZANE IV SCH (06:12)
[2018-12-17] MEDS: NORMAL SALINE IV SCH (06:12)
[2018-12-17] MEDS: TAZOBACTAM IV SCH (06:12)
[2018-12-17 06:30] LABS: BASO # 0.1 x10^3/uL (0.0-0.2); BASO % 1 % (0-3); EOS # 0.2 x10^3/uL (0.0-0.7); EOS % 2 % (0-3); HEMOGLOBIN 9.4 g/dL (12.0-15.5); LYMPH # 1.8 x10^3/uL (1.0-4.8); LYMPH % 17 % (24-48); MEAN CORPUSCULAR HEMOGLOBIN 23 pg (25-35); MEAN CORPUSCULAR HGB CONC 30 g/dL (31-37); MEAN CORPUSCULAR VOLUME 74 fL (79-100); MONO # 0.8 x10^3/uL (0.0-1.1); MONO % 7 % (0-9); NEUT # 7.7 x10^3uL (1.8-7.7); NEUT % 73 % (31-73); PLATELET COUNT 548 x10^3/uL (140-400); RED BLOOD COUNT 4.16 x10^6/uL (3.50-5.40); RED CELL DISTRIBUTION WIDTH 19.1 % (11.5-14.5); WHITE BLOOD COUNT 10.6 x10^3/uL (4.0-11.0)
[2018-12-17 07:20] VITALS: BP 182/90
[2018-12-17] MEDS: ALBUTEROL SULFATE 2.5 MG/3 ML NEBU. NEB SCH ×4 (07:56→20:55)
[2018-12-17] MEDS: PANTOPRAZOLE IV PUSH 40 MG VIAL. IVP SCH (08:10)
[2018-12-17] MEDS: LANSOPRAZOLE 30 MG TAB.RAP.DR PEG SCH (08:12)
[2018-12-17] MEDS: METOCLOPRAMIDE 10 MG TABLET. PO SCH ×4 (08:15→22:10)
[2018-12-17] MEDS: DONEPEZIL HCL 5 MG TABLET. PO SCH ×2 (08:16→22:10)
[2018-12-17] MEDS: LACTOBACILLUS RHAMNOSUS GG 1 CAPSULE. PO SCH ×2 (08:16→22:10)
[2018-12-17] MEDS: amLODIPine BESYLATE 5 MG TABLET PO SCH (08:18)
[2018-12-17] MEDS: fentaNYL 50MCG/HR PATCH 1 PATCH PATCH.TD72 TD SCH (08:20)
[2018-12-17] MEDS: oxyCODONE/APAP 7.5/325 1 TAB TABLET PO PRN ×2 (08:21→16:45)
--- NOTE | 2018-12-17 08:35 | PDOC ---
Infectious Disease Note Subjective Subjective Doing better. No gross pain. No F/C/S/N/V - breathing ok Vital Sign Vital Signs Vital Signs Date Time Temp Pulse Resp B/P (MAP) Pulse Ox O2 Delivery O2 Flow Rate FiO2 12/17/18 08:21 20 100 Tracheal Collar 14.0 12/17/18 08:18 104 182/90 12/17/18 07:20 98.1 98.1 Physical Exam PHYSICAL EXAM CONSTITUTIONAL: She is very alert. She is cooperative. She is in no acute distress. Looks well HEENT: Oral cavity, pharynx is clear. Trach without signs of complications. LUNGS: Clear. She has a Port-A-Cath in the right chest.- no redness - less edema HEART: S1, S2. ABDOMEN: Soft, nontender, no guarding. PEG tube without complications. EXTREMITIES: No clubbing, cyanosis. Are thin. SKIN: Warm to touch without signs of rash. NEUROLOGIC: She is alert, follows simple commands. Affect is pleasant. Labs Lab Laboratory Tests Test 12/17/18 05:25 White Blood Count 10.6 x10^3/uL (4.0-11.0) Red Blood Count 4.16 x10^6/uL (3.50-5.40) Hemoglobin 9.4 g/dL (12.0-15.5) Hematocrit 31.0 % (36.0-47.0) Mean Corpuscular Volume 74 fL (79-100) Mean Corpuscular Hemoglobin 23 pg (25-35) Mean Corpuscular Hemoglobin Concent 30 g/dL (31-37) Red Cell Distribution Width 19.1 % (11.5-14.5) Platelet Count 548 x10^3/uL (140-400) Neutrophils (%) (Auto) 73 % (31-73) Lymphocytes (%) (Auto) 17 % (24-48) Monocytes (%) (Auto) 7 % (0-9) Eosinophils (%) (Auto) 2 % (0-3) Basophils (%) (Auto) 1 % (0-3) Neutrophils # (Auto) 7.7 x10^3uL (1.8-7.7) Lymphocytes # (Auto) 1.8 x10^3/uL (1.0-4.8) Monocytes # (Auto) 0.8 x10^3/uL (0.0-1.1) Eosinophils # (Auto) 0.2 x10^3/uL (0.0-0.7) Basophils # (Auto) 0.1 x10^3/uL (0.0-0.2) Micro Microbiology 12/13/18 Blood Culture - Preliminary, Resulted NO GROWTH AFTER 1 DAY Objective Assessment Acute Resp failure - better. ? plug Malfunctioning Port -s/p repair 12/15 Leukocytosis - ? reactive - some better. 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
--- NOTE | 2018-12-17 09:11 | PDOC ---
PULMONARY PROGRESS NOTES Subjective trach secretions LESS Vitals Vital Signs Date Time Temp Pulse Resp B/P (MAP) Pulse Ox O2 Delivery O2 Flow Rate FiO2 12/17/18 08:21 20 100 Tracheal Collar 14.0 12/17/18 08:18 104 182/90 12/17/18 07:20 98.1 98.1 General: Alert, No acute distress Lungs: Other (rhonchi) Cardiovascular: S1, S2 Abdomen: Soft, Non-tender Neuro Exam: Alert Extremities: No Edema Skin: Warm Labs Laboratory Tests Test 12/16/18 04:00 12/17/18 05:25 White Blood Count 14.1 x10^3/uL (4.0-11.0) 10.6 x10^3/uL (4.0-11.0) Red Blood Count 4.14 x10^6/uL (3.50-5.40) 4.16 x10^6/uL (3.50-5.40) Hemoglobin 9.1 g/dL (12.0-15.5) 9.4 g/dL (12.0-15.5) Hematocrit 30.8 % (36.0-47.0) 31.0 % (36.0-47.0) Mean Corpuscular Volume 75 fL (79-100) 74 fL (79-100) Mean Corpuscular Hemoglobin 22 pg (25-35) 23 pg (25-35) Mean Corpuscular Hemoglobin Concent 29 g/dL (31-37) 30 g/dL (31-37) Red Cell Distribution Width 19.0 % (11.5-14.5) 19.1 % (11.5-14.5) Platelet Count 510 x10^3/uL (140-400) 548 x10^3/uL (140-400) Neutrophils (%) (Auto) 78 % (31-73) 73 % (31-73) Lymphocytes (%) (Auto) 15 % (24-48) 17 % (24-48) Monocytes (%) (Auto) 6 % (0-9) 7 % (0-9) Eosinophils (%) (Auto) 1 % (0-3) 2 % (0-3) Basophils (%) (Auto) 1 % (0-3) 1 % (0-3) Neutrophils # (Auto) 11.0 x10^3uL (1.8-7.7) 7.7 x10^3uL (1.8-7.7) Lymphocytes # (Auto) 2.1 x10^3/uL (1.0-4.8) 1.8 x10^3/uL (1.0-4.8) Monocytes # (Auto) 0.8 x10^3/uL (0.0-1.1) 0.8 x10^3/uL (0.0-1.1) Eosinophils # (Auto) 0.1 x10^3/uL (0.0-0.7) 0.2 x10^3/uL (0.0-0.7) Basophils # (Auto) 0.1 x10^3/uL (0.0-0.2) 0.1 x10^3/uL (0.0-0.2) Sodium Level 140 mmol/L (136-145) Potassium Level 4.4 mmol/L (3.5-5.1) Chloride Level 99 mmol/L (98-107) Carbon Dioxide Level 36 mmol/L (21-32) Anion Gap 5 (6-14) Blood Urea Nitrogen 9 mg/dL (7-20) Creatinine 0.7 mg/dL (0.6-1.0) Estimated GFR (Cockcroft-Gault) 98.2 BUN/Creatinine Ratio 13 (6-20) Glucose Level 88 mg/dL (70-99) Calcium Level 9.1 mg/dL (8.5-10.1) Total Bilirubin 0.3 mg/dL (0.2-1.0) Aspartate Amino Transf (AST/SGOT) 20 U/L (15-37) Alanine Aminotransferase (ALT/SGPT) 11 U/L (14-59) Alkaline Phosphatase 68 U/L (46-116) Total Protein 7.9 g/dL (6.4-8.2) Albumin 2.7 g/dL (3.4-5.0) Albumin/Globulin Ratio 0.5 (1.0-1.7) Laboratory Tests Test 12/17/18 05:25 White Blood Count 10.6 x10^3/uL (4.0-11.0) Red Blood Count 4.16 x10^6/uL (3.50-5.40) Hemoglobin 9.4 g/dL (12.0-15.5) Hematocrit 31.0 % (36.0-47.0) Mean Corpuscular Volume 74 fL (79-100) Mean Corpuscular Hemoglobin 23 pg (25-35) Mean Corpuscular Hemoglobin Concent 30 g/dL (31-37) Red Cell Distribution Width 19.1 % (11.5-14.5) Platelet Count 548 x10^3/uL (140-400) Neutrophils (%) (Auto) 73 % (31-73) Lymphocytes (%) (Auto) 17 % (24-48) Monocytes (%) (Auto) 7 % (0-9) Eosinophils (%) (Auto) 2 % (0-3) Basophils (%) (Auto) 1 % (0-3) Neutrophils # (Auto) 7.7 x10^3uL (1.8-7.7) Lymphocytes # (Auto) 1.8 x10^3/uL (1.0-4.8) Monocytes # (Auto) 0.8 x10^3/uL (0.0-1.1) Eosinophils # (Auto) 0.2 x10^3/uL (0.0-0.7) Basophils # (Auto) 0.1 x10^3/uL (0.0-0.2) Medications Active Scripts Medications Dose Route/Sig Max Daily Dose Days Date Category Percocet 7.5-325 Mg Tablet (Oxycodone/Acetaminophen) 1 Each Tablet 1 Tab PO QID PRN MDD 1 12/09/18 Rx FENTANYL 50mcg/hr (Fentanyl) 1 Each Patch.td72 1 Patch TP Q3DAYS MDD 1 12/09/18 Rx Albuterol Sulfate Neb Soln (Albuterol Sulfate) 0.63 Mg/3 Ml Vial.neb 1 Vial NEB QID 12/02/18 Reported Gabapentin (Gabapentin) 300 Mg Capsule 300 Mg PO BID PRN 10/19/18 Reported Amlodipine Besylate 5 Mg Tablet 5 Mg PO DAILY 10/19/18 Reported Culturelle (Lactobacillus Rhamnosus Gg) 1 Each Cap.sprink 1 Cap PO BID 30 07/07/17 Rx Pantoprazole Sodium 40 Mg Tablet.dr 40 Mg PEG BID 03/11/17 Reported Donepezil Hcl 5 Mg Tablet 5 Mg PEG BID 03/11/17 Reported Reglan (Metoclopramide Hcl) 10 Mg Tablet 5 Mg PO QIDACHS 03/11/17 Reported Cyproheptadine Hcl 2 Mg/5 Ml Syrup 10 Ml PEG TID 03/11/17 Reported Ondansetron Odt (Ondansetron) 4 Mg Tab.rapdis 4 Mg PEG QIDPRN PRN 06/19/14 Reported Impression . 1. Acute on chronic respiratory failure. 2. 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 3. Abnormal x-ray, possible new pneumonia. 4. Status post trach and PEG. 5. History of laryngeal carcinoma. Plan . 1. d/w DR MCQUEEN. DC Zerbaxa,/ Had 10 days of Rx. clinically better 2. continue oxygen supplementation. 3. Continue home meds. 4. PRN Trach suction 5. dc plans per PCP d/w MARY Sebastian MD Dec 17, 2018 09:11
--- NOTE | 2018-12-17 09:24 | PDOC ---
Subjective: Subjective: She denies abd pain. Reports some nausea but none currently. Objective: Objective: D/w RN - PEG replaced w/ IR yesterday - functioning. Vital Signs: Vital Signs Date Time Temp Pulse Resp B/P (MAP) Pulse Ox O2 Delivery O2 Flow Rate FiO2 12/17/18 08:21 20 100 Tracheal Collar 14.0 12/17/18 08:18 104 182/90 12/17/18 07:20 98.1 98.1 Labs: Laboratory Tests Test 12/17/18 05:25 White Blood Count 10.6 x10^3/uL Red Blood Count 4.16 x10^6/uL Hemoglobin 9.4 g/dL Hematocrit 31.0 % Mean Corpuscular Volume 74 fL Mean Corpuscular Hemoglobin 23 pg Mean Corpuscular Hemoglobin Concent 30 g/dL Red Cell Distribution Width 19.1 % Platelet Count 548 x10^3/uL Neutrophils (%) (Auto) 73 % Lymphocytes (%) (Auto) 17 % Monocytes (%) (Auto) 7 % Eosinophils (%) (Auto) 2 % Basophils (%) (Auto) 1 % Neutrophils # (Auto) 7.7 x10^3uL Lymphocytes # (Auto) 1.8 x10^3/uL Monocytes # (Auto) 0.8 x10^3/uL Eosinophils # (Auto) 0.2 x10^3/uL Basophils # (Auto) 0.1 x10^3/uL PE: GEN: NAD HEENT: trach LUNGS: diminished ABD: soft, non-tender, BS+, G tube in place NEURO/PSYCH: A & O 3 - nod and shakes head A/P: Chronic resp failure w/ trach Chronic dysphagia w/ PEG - replaced by IR 12/16/18 Intermittent nausea - h/o suspected gastroparesis, remains on Reglan and PPI Chronic anemia - stable, iron deficient in 2017 -- Continue support per GI. LE ROSENTHAL Dec 17, 2018 09:24
[2018-12-17 11:00] VITALS: BP 136/66
--- NOTE | 2018-12-17 11:43 | PDOC ---
PROGRESS NOTES Chief Complaint Chief Complaint Acute on chronic respiratory failure- multifactorial with recurrent pneumonia, COPD, and mild CHF PEG tube exchanged 12/16/18 by IR H/o recurrent pneumonia with multidrug-resistant Pseudomonas and MRSA Leukocytosis, Elevated troponin; highest 0.168 2/2 demand ischemia, EF and WM nml with moderate pulmonary HTN. Acute on chronic diastolic CHF Hypertension Hx of laryngeal CA and SCC with trach Hx of dysphagia with PEG, receiving TF Dementia History of Present Illness History of Present Illness Pt seen and examined, sitting upright in bed, speaking to someone on the phone On 10L o2 w/ trach collar responding to questioning with nodding and attempts to verbalize responses Vitals Vitals Vital Signs Date Time Temp Pulse Resp B/P (MAP) Pulse Ox O2 Delivery O2 Flow Rate FiO2 12/17/18 08:21 20 100 Tracheal Collar 14.0 12/17/18 08:18 104 182/90 12/17/18 07:20 98.1 98.1 Physical Exam General: Alert, Cooperative, No acute distress, Other (attempts to verbalize responses) Heart: Regular rate, Normal S1, Normal S2 Lungs: Other (rhonchi that partially clear with coughing, mild crackles, On o2 , Trach collar inplace, Port-A-Cath right chest) Abdomen: Soft, No tenderness, Other (PEG Tube C/D/I s/p exchange 12/16) Extremities: No clubbing, No cyanosis Skin: No rashes, No breakdown Labs LABS Laboratory Tests Test 12/17/18 05:25 White Blood Count 10.6 x10^3/uL (4.0-11.0) Red Blood Count 4.16 x10^6/uL (3.50-5.40) Hemoglobin 9.4 g/dL (12.0-15.5) Hematocrit 31.0 % (36.0-47.0) Mean Corpuscular Volume 74 fL (79-100) Mean Corpuscular Hemoglobin 23 pg (25-35) Mean Corpuscular Hemoglobin Concent 30 g/dL (31-37) Red Cell Distribution Width 19.1 % (11.5-14.5) Platelet Count 548 x10^3/uL (140-400) Neutrophils (%) (Auto) 73 % (31-73) Lymphocytes (%) (Auto) 17 % (24-48) Monocytes (%) (Auto) 7 % (0-9) Eosinophils (%) (Auto) 2 % (0-3) Basophils (%) (Auto) 1 % (0-3) Neutrophils # (Auto) 7.7 x10^3uL (1.8-7.7) Lymphocytes # (Auto) 1.8 x10^3/uL (1.0-4.8) Monocytes # (Auto) 0.8 x10^3/uL (0.0-1.1) Eosinophils # (Auto) 0.2 x10^3/uL (0.0-0.7) Basophils # (Auto) 0.1 x10^3/uL (0.0-0.2) Review of Systems Review of Systems Denies N/V or F/C Assessment and Plan Assessmemt and Plan Assessment: Acute on chronic respiratory failure- multifactorial with recurrent pneumonia, COPD, and mild CHF PEG tube exchanged 12/16/18 by IR H/o recurrent pneumonia with multidrug-resistant Pseudomonas and MRSA Leukocytosis, improving Elevated troponin; highest 0.168 2/2 demand ischemia, EF and WM nml with moderate pulmonary HTN. Acute on chronic diastolic CHF Hypertension Hx of laryngeal CA and SCC with trach Hx of dysphagia with PEG, receiving TF Dementia Plan: D/c disposition pending, LTAC vs continued [facility] Trach and PEG in place, on TFs Abx d/c per ID, appreciate recommendations monitor for S&S of infection PT/OT/SLPeval, Consider PMV Recheck labs in am Home Rx Comment Review of Relevant I have reviewed the following items miko (where applicable) has been applied. Labs Laboratory Tests Test 12/16/18 04:00 12/17/18 05:25 White Blood Count 14.1 x10^3/uL (4.0-11.0) 10.6 x10^3/uL (4.0-11.0) Red Blood Count 4.14 x10^6/uL (3.50-5.40) 4.16 x10^6/uL (3.50-5.40) Hemoglobin 9.1 g/dL (12.0-15.5) 9.4 g/dL (12.0-15.5) Hematocrit 30.8 % (36.0-47.0) 31.0 % (36.0-47.0) Mean Corpuscular Volume 75 fL (79-100) 74 fL (79-100) Mean Corpuscular Hemoglobin 22 pg (25-35) 23 pg (25-35) Mean Corpuscular Hemoglobin Concent 29 g/dL (31-37) 30 g/dL (31-37) Red Cell Distribution Width 19.0 % (11.5-14.5) 19.1 % (11.5-14.5) Platelet Count 510 x10^3/uL (140-400) 548 x10^3/uL (140-400) Neutrophils (%) (Auto) 78 % (31-73) 73 % (31-73) Lymphocytes (%) (Auto) 15 % (24-48) 17 % (24-48) Monocytes (%) (Auto) 6 % (0-9) 7 % (0-9) Eosinophils (%) (Auto) 1 % (0-3) 2 % (0-3) Basophils (%) (Auto) 1 % (0-3) 1 % (0-3) Neutrophils # (Auto) 11.0 x10^3uL (1.8-7.7) 7.7 x10^3uL (1.8-7.7) Lymphocytes # (Auto) 2.1 x10^3/uL (1.0-4.8) 1.8 x10^3/uL (1.0-4.8) Monocytes # (Auto) 0.8 x10^3/uL (0.0-1.1) 0.8 x10^3/uL (0.0-1.1) Eosinophils # (Auto) 0.1 x10^3/uL (0.0-0.7) 0.2 x10^3/uL (0.0-0.7) Basophils # (Auto) 0.1 x10^3/uL (0.0-0.2) 0.1 x10^3/uL (0.0-0.2) Sodium Level 140 mmol/L (136-145) Potassium Level 4.4 mmol/L (3.5-5.1) Chloride Level 99 mmol/L (98-107) Carbon Dioxide Level 36 mmol/L (21-32) Anion Gap 5 (6-14) Blood Urea Nitrogen 9 mg/dL (7-20) Creatinine 0.7 mg/dL (0.6-1.0) Estimated GFR (Cockcroft-Gault) 98.2 BUN/Creatinine Ratio 13 (6-20) Glucose Level 88 mg/dL (70-99) Calcium Level 9.1 mg/dL (8.5-10.1) Total Bilirubin 0.3 mg/dL (0.2-1.0) Aspartate Amino Transf (AST/SGOT) 20 U/L (15-37) Alanine Aminotransferase (ALT/SGPT) 11 U/L (14-59) Alkaline Phosphatase 68 U/L (46-116) Total Protein 7.9 g/dL (6.4-8.2) Albumin 2.7 g/dL (3.4-5.0) Albumin/Globulin Ratio 0.5 (1.0-1.7) Laboratory Tests Test 12/17/18 05:25 White Blood Count 10.6 x10^3/uL (4.0-11.0) Red Blood Count 4.16 x10^6/uL (3.50-5.40) Hemoglobin 9.4 g/dL (12.0-15.5) Hematocrit 31.0 % (36.0-47.0) Mean Corpuscular Volume 74 fL (79-100) Mean Corpuscular Hemoglobin 23 pg (25-35) Mean Corpuscular Hemoglobin Concent 30 g/dL (31-37) Red Cell Distribution Width 19.1 % (11.5-14.5) Platelet Count 548 x10^3/uL (140-400) Neutrophils (%) (Auto) 73 % (31-73) Lymphocytes (%) (Auto) 17 % (24-48) Monocytes (%) (Auto) 7 % (0-9) Eosinophils (%) (Auto) 2 % (0-3) Basophils (%) (Auto) 1 % (0-3) Neutrophils # (Auto) 7.7 x10^3uL (1.8-7.7) Lymphocytes # (Auto) 1.8 x10^3/uL (1.0-4.8) Monocytes # (Auto) 0.8 x10^3/uL (0.0-1.1) Eosinophils # (Auto) 0.2 x10^3/uL (0.0-0.7) Basophils # (Auto) 0.1 x10^3/uL (0.0-0.2) Microbiology 12/13/18 Blood Culture - Preliminary, Resulted NO GROWTH AFTER 3 DAYS Medications Current Medications Albuterol/ Ipratropium (Duoneb) 3 ml 1X ONCE NEB Last administered on at 10:30; Start 12/13/18 at 10:30; Stop 12/13/18 at 10:31; Status DC Sodium Chloride 500 ml @ 500 mls/hr 1X ONCE IV Last administered on 12/13/18at 10:30; Start 12/13/18 at 10:30; Stop 12/13/18 at 11:29; Status DC Vancomycin HCl (Vanco Per Pharmacy) 1 each PRN DAILY PRN MC SEE COMMENTS Last administered on 12/13/18at 13:28; Start 12/13/18 at 10:30; Stop 12/13/18 at 19:00; Status DC Vancomycin HCl 1.25 gm/Sodium Chloride 250 ml @ 166.667 mls/hr 1X ONCE IV Last administered on 12/13/18at 10:53; Start 12/13/18 at 10:45; Stop 12/13/18 at 12: 14; Status DC Furosemide (Lasix) 20 mg 1X ONCE IVP Last administered on 12/13/18at 15:30; Start 12/13/18 at 12:15; Stop 12/13/18 at 12:17; Status DC Vancomycin HCl 1 gm/Sodium Chloride 250 ml @ 250 mls/hr Q12H IV ; Start at 23:00; Stop 12/13/18 at 23:00; Status DC Vancomycin HCl 750 mg/Sodium Chloride 250 ml @ 250 mls/hr Q12H IV ; Start at 23:00; Stop 12/13/18 at 23:00; Status DC Vancomycin HCl (Vancomycin Trough Level) 1 each 1X ONCE MC ; Start 12/14/18 at 10:30; Stop 12/14/18 at 10:30; Status DC Pharmacy Consult (C.diff Med Screen By Rx) 1 each 1X ONCE MC ; Start 12/13/18 at 14:45; Stop 12/13/18 at 14:46; Status UNV Ceftolozane/ Tazobactam 750 mg/ Sodium Chloride 100 ml @ 100 mls/hr Q8HRS IV Last administered on 12/17/18 06:12; Start 12/13/18 at 15:30; Stop 12/17/18 at 09: 24; Status DC Amlodipine Besylate (Norvasc) 5 mg DAILY PO Last administered on 12/14/18 08:12 ; Start 12/13/18 at 15:30; Stop 12/14/18 at 11:52; Status DC Fentanyl (Duragesic 50mcg/ Hr Patch) 1 patch Q3DAYS TD Last administered on 12/17 08:20; Start 12/14/18 at 09:00 Gabapentin (Neurontin) 300 mg PRN BID PRN PO NERVE PAIN Last administered on 09:13; Start 12/13/18 at 14:45 Lactobacillus Rhamnosus (Culturelle) 1 cap BID PO Last administered on 08:16; Start 12/13/18 at 21:00 Metoclopramide HCl (Reglan) 5 mg QIDACHS PO Last administered on 12/17/18 08:15 ; Start 12/13/18 at 16:30 Ondansetron HCl (Zofran Odt) 4 mg QIDPRN PRN PEG NAUSEA/VOMITING Last administered on 12/14/18 23:25; Start 12/13/18 at 14:45 Oxycodone/ Acetaminophen (Percocet 7.5/ 325) 1 tab PRN QID PRN PO PAIN Last administered on 12/17/18 08:21; Start 12/13/18 at 14:45 Lansoprazole (Prevacid) 30 mg BIDBFRMEAL PEG Last administered on 12/17/18 08: 12; Start 12/13/18 at 16:30; Stop 12/17/18 at 09:27; Status DC Non-Formulary Medication (Albuterol Sulfate (Albuterol Sulfate Neb Soln)) 1 vial QID NEB ; Start 12/13/18 at 17:00; Status UNV Donepezil HCl (Aricept) 5 mg BID PO Last administered on 12/17/18 08:16; Start 12/13/18 at 21:00 Albuterol Sulfate (Ventolin Neb Soln) 2.5 mg RTQID NEB Last administered on 4/5 /19at 07:56; Start 12/13/18 at 16:00 Aspirin (Ecotrin) 81 mg DAILYWBKFT PO ; Start 12/14/18 at 08:00; Status UNV Amlodipine Besylate (Norvasc) 10 mg DAILY PO Last administered on 12/17/18at 08: 18; Start 12/15/18 at 09:00 Furosemide (Lasix) 20 mg 1X ONCE IVP Last administered on 12/14/18at 13:40; Start 12/14/18 at 12:00; Stop 12/14/18 at 12:02; Status DC Amlodipine Besylate (Norvasc) 5 mg 1X ONCE PO Last administered on 12/14/18at 13 :39; Start 12/14/18 at 12:00; Stop 12/14/18 at 12:02; Status DC Hydralazine HCl (Apresoline Inj) 10 mg PRN Q4HRS PRN IVP ELEVATED BP, SEE COMMENTS; Start 12/14/18 at 12:00 Alteplase, Recombinant (Cathflo For Central Catheter Clearance) 1 mg 1X ONCE INT CAT Last administered on 12/14/18at 15:15; Start 12/14/18 at 13:15; Stop at 13:20; Status DC Oxycodone/ Acetaminophen (Percocet 7.5/ 325) 1 tab 1X ONCE PEG Last administered on 12/14/18at 21:36; Start 12/14/18 at 21:30; Stop 12/14/18 at 21:31; Status DC Iohexol (Omnipaque 240 Mg/ml) 50 ml STK-MED ONCE .ROUTE ; Start 12/15/18 at 09:51 ; Stop 12/15/18 at 09:52; Status DC Iohexol (Omnipaque 240 Mg/ml) 5 ml 1X ONCE IV Last administered on 12/15/18at 10 :30; Start 12/15/18 at 10:30; Stop 12/15/18 at 10:33; Status DC Info (CONTRAST GIVEN -- Rx MONITORING) 1 each PRN DAILY PRN MC SEE COMMENTS; Start 12/15/18 at 10:45; Stop 12/17/18 at 10:44; Status Cancel Ondansetron HCl (Zofran) 4 mg PRN Q6HRS PRN IV NAUSEA/VOMITING Last administered on 12/16/18at 20:28; Start 12/15/18 at 14:15 Scopolamine (Transderm-Scop) 1 patch Q3DAYS TD Last administered on 12/15/18at 15 :25; Start 12/15/18 at 15:15 Morphine Sulfate (Morphine Sulfate) 2 mg PRN Q2HR PRN IV PAIN Last administered on 12/16/18at 18:28; Start 12/15/18 at 19:15 Iohexol (Omnipaque 300 Mg/ml) 50 ml 1X ONCE PO ; Start 12/16/18 at 09:30; Stop 12/16/18 at 09:31; Status DC Info (CONTRAST GIVEN -- Rx MONITORING) 1 each PRN DAILY PRN MC SEE COMMENTS; Start 12/16/18 at 09:45; Stop 12/18/18 at 09:44; Status Cancel Pantoprazole Sodium (PROTONIX VIAL for IV PUSH) 40 mg DAILYAC IVP Last administered on 12/17/18at 08:10; Start 12/16/18 at 12:00; Stop 12/17/18 at 09:23; Status DC Iohexol (Omnipaque 240 Mg/ml) 50 ml STK-MED ONCE .ROUTE ; Start 12/16/18 at 13:28 ; Stop 12/16/18 at 13:29; Status DC Iohexol (Omnipaque 240 Mg/ml) 50 ml 1X ONCE IJ Last administered on 12/16/18at 13:55; Start 12/16/18 at 13:45; Stop 12/16/18 at 13:46; Status DC Info (CONTRAST GIVEN -- Rx MONITORING) 1 each PRN DAILY PRN MC SEE COMMENTS; Start 12/16/18 at 13:45; Stop 12/18/18 at 13:44 Lansoprazole (Prevacid) 30 mg BIDBFRMEAL FT ; Start 12/17/18 at 16:30 Active Scripts Active Percocet 7.5-325 Mg Tablet (Oxycodone/Acetaminophen) 1 Each Tablet 1 Tab PO QID PRN MDD 1 FENTANYL 50mcg/hr (Fentanyl) 1 Each Patch.td72 1 Patch TP Q3DAYS MDD 1 Culturelle (Lactobacillus Rhamnosus Gg) 1 Each Cap.sprink 1 Cap PO BID 30 Days Reported Albuterol Sulfate Neb Soln (Albuterol Sulfate) 0.63 Mg/3 Ml Vial.neb 1 Vial NEB QID Gabapentin (Gabapentin) 300 Mg Capsule 300 Mg PO BID PRN Amlodipine Besylate 5 Mg Tablet 5 Mg PO DAILY Pantoprazole Sodium 40 Mg Tablet.dr 40 Mg PEG BID Donepezil Hcl 5 Mg Tablet 5 Mg PEG BID Reglan (Metoclopramide Hcl) 10 Mg Tablet 5 Mg PO QIDACHS Cyproheptadine Hcl 2 Mg/5 Ml Syrup 10 Ml PEG TID Ondansetron Odt (Ondansetron) 4 Mg Tab.rapdis 4 Mg PEG QIDPRN PRN Vitals/I & O Vital Sign - Last 24 Hours 12/16/18 12/16/18 12/16/18 12/16/18 12:28 12:28 14:52 15:39 Temp 98.7 98.7 Pulse 95 Resp 20 20 B/P (MAP) 177/75 (109) Pulse Ox 96 97 100 O2 Delivery Tracheal Collar Tracheal Collar Tracheal Collar Tracheal Collar O2 Flow Rate 10.0 10.0 10.0 10.0 12/16/18 12/16/18 12/16/18 12/16/18 15:40 18:58 19:00 19:00 Temp 97.8 97.8 Pulse 112 Resp 22 18 B/P (MAP) 133/73 (93) Pulse Ox 100 85 97 O2 Delivery Tracheal Collar Tracheal Collar Tracheal Collar Tracheal Collar O2 Flow Rate 10.0 10.0 10.0 12/16/18 12/16/18 12/16/18 12/16/18 20:20 20:25 20:43 23:00 Temp 97.7 97.7 Pulse 105 Resp 22 18 B/P (MAP) 146/71 (96) Pulse Ox 100 94 O2 Delivery Trach Collar Tracheal Collar Tracheal Collar Tracheal Collar O2 Flow Rate 10.0 10.0 10.0 12/17/18 12/17/18 12/17/18 12/17/18 03:00 07:20 07:56 08:18 Temp 97.8 98.1 97.8 98.1 Pulse 87 104 104 Resp 18 16 B/P (MAP) 159/75 (103) 182/90 (120) 182/90 Pulse Ox 98 83 100 O2 Delivery Tracheal Collar Tracheal Collar Tracheal Collar O2 Flow Rate 10.0 10.0 10.0 12/17/18 12/17/18 08:20 08:21 Resp 20 20 Pulse Ox 100 100 O2 Delivery Tracheal Collar Tracheal Collar O2 Flow Rate 14.0 14.0 Intake and Output 12/16/18 12/16/18 12/17/18 15:00 23:00 07:00 Intake Total 500 ml 100 ml Balance 500 ml 100 ml Nutrition Consultation Dietary Evaluation: Recommendations by RD: Increase Calorie Intake Comments: Continue w/TF per current order: Jevity 1.5 bolus QID (1 carton/237 ml per bolus) w/200 ml water flushes QID Expected Outcomes/Goals: TF intake to meet >75% est needs Malnutrition Findings: Body Fat Depletion (Non Severe: Mild Depletion Weight Status: Appropriate SAMMY WILEY III DO Dec 17, 2018 11:43
--- NOTE | 2018-12-17 12:34 | PDOC ---
SURGICAL PROGRESS NOTE Subjective peg exchanged and working now Vital Signs Vital Signs Date Time Temp Pulse Resp B/P (MAP) Pulse Ox O2 Delivery O2 Flow Rate FiO2 12/17/18 11:57 98 Tracheal Collar 10.0 12/17/18 09:21 20 12/17/18 08:18 104 182/90 12/17/18 07:20 98.1 98.1 I&O Intake and Output 12/17/18 07:00 Intake Total 600 ml Balance 600 ml IV Total 100 ml Tube Feeding 500 ml # Voids 3 General: Alert Abdomen: Soft, Other (peg in place) Labs Laboratory Tests Test 12/16/18 04:00 12/17/18 05:25 White Blood Count 14.1 x10^3/uL (4.0-11.0) 10.6 x10^3/uL (4.0-11.0) Red Blood Count 4.14 x10^6/uL (3.50-5.40) 4.16 x10^6/uL (3.50-5.40) Hemoglobin 9.1 g/dL (12.0-15.5) 9.4 g/dL (12.0-15.5) Hematocrit 30.8 % (36.0-47.0) 31.0 % (36.0-47.0) Mean Corpuscular Volume 75 fL (79-100) 74 fL (79-100) Mean Corpuscular Hemoglobin 22 pg (25-35) 23 pg (25-35) Mean Corpuscular Hemoglobin Concent 29 g/dL (31-37) 30 g/dL (31-37) Red Cell Distribution Width 19.0 % (11.5-14.5) 19.1 % (11.5-14.5) Platelet Count 510 x10^3/uL (140-400) 548 x10^3/uL (140-400) Neutrophils (%) (Auto) 78 % (31-73) 73 % (31-73) Lymphocytes (%) (Auto) 15 % (24-48) 17 % (24-48) Monocytes (%) (Auto) 6 % (0-9) 7 % (0-9) Eosinophils (%) (Auto) 1 % (0-3) 2 % (0-3) Basophils (%) (Auto) 1 % (0-3) 1 % (0-3) Neutrophils # (Auto) 11.0 x10^3uL (1.8-7.7) 7.7 x10^3uL (1.8-7.7) Lymphocytes # (Auto) 2.1 x10^3/uL (1.0-4.8) 1.8 x10^3/uL (1.0-4.8) Monocytes # (Auto) 0.8 x10^3/uL (0.0-1.1) 0.8 x10^3/uL (0.0-1.1) Eosinophils # (Auto) 0.1 x10^3/uL (0.0-0.7) 0.2 x10^3/uL (0.0-0.7) Basophils # (Auto) 0.1 x10^3/uL (0.0-0.2) 0.1 x10^3/uL (0.0-0.2) Sodium Level 140 mmol/L (136-145) Potassium Level 4.4 mmol/L (3.5-5.1) Chloride Level 99 mmol/L (98-107) Carbon Dioxide Level 36 mmol/L (21-32) Anion Gap 5 (6-14) Blood Urea Nitrogen 9 mg/dL (7-20) Creatinine 0.7 mg/dL (0.6-1.0) Estimated GFR (Cockcroft-Gault) 98.2 BUN/Creatinine Ratio 13 (6-20) Glucose Level 88 mg/dL (70-99) Calcium Level 9.1 mg/dL (8.5-10.1) Total Bilirubin 0.3 mg/dL (0.2-1.0) Aspartate Amino Transf (AST/SGOT) 20 U/L (15-37) Alanine Aminotransferase (ALT/SGPT) 11 U/L (14-59) Alkaline Phosphatase 68 U/L (46-116) Total Protein 7.9 g/dL (6.4-8.2) Albumin 2.7 g/dL (3.4-5.0) Albumin/Globulin Ratio 0.5 (1.0-1.7) Reticulocyte Count (auto) 1.9 % (0.5-2.5) Iron Level 20 ug/dL (50-170) Total Iron Binding Capacity 357 ug/dL (250-450) Iron Saturation 6 % (15-34) Vitamin B12 Level 1644 pg/mL (247-911) Laboratory Tests Test 12/17/18 05:25 White Blood Count 10.6 x10^3/uL (4.0-11.0) Red Blood Count 4.16 x10^6/uL (3.50-5.40) Hemoglobin 9.4 g/dL (12.0-15.5) Hematocrit 31.0 % (36.0-47.0) Mean Corpuscular Volume 74 fL (79-100) Mean Corpuscular Hemoglobin 23 pg (25-35) Mean Corpuscular Hemoglobin Concent 30 g/dL (31-37) Red Cell Distribution Width 19.1 % (11.5-14.5) Platelet Count 548 x10^3/uL (140-400) Neutrophils (%) (Auto) 73 % (31-73) Lymphocytes (%) (Auto) 17 % (24-48) Monocytes (%) (Auto) 7 % (0-9) Eosinophils (%) (Auto) 2 % (0-3) Basophils (%) (Auto) 1 % (0-3) Neutrophils # (Auto) 7.7 x10^3uL (1.8-7.7) Lymphocytes # (Auto) 1.8 x10^3/uL (1.0-4.8) Monocytes # (Auto) 0.8 x10^3/uL (0.0-1.1) Eosinophils # (Auto) 0.2 x10^3/uL (0.0-0.7) Basophils # (Auto) 0.1 x10^3/uL (0.0-0.2) Reticulocyte Count (auto) 1.9 % (0.5-2.5) Iron Level 20 ug/dL (50-170) Total Iron Binding Capacity 357 ug/dL (250-450) Iron Saturation 6 % (15-34) Vitamin B12 Level 1644 pg/mL (247-911) Problem List peg now working available as needed NATIVIDAD GONZALEZ APRN Dec 17, 2018 12:34
--- NOTE | 2018-12-17 12:50 | RAD ---
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 Informed consent was obtained. The pre-existing catheter was evaluated and found to be completely obstructed. The retention balloon was deflated and the catheter removed. It was replaced with a new 18 Pashto catheter. The retention balloon was filled with 7 cc sterile water. He was retracting of the anterior gastric wall. Contrast administration confirmed appropriate placement. Total fluoroscopy time: 0.7 Minutes Dose area product:: 2 Gycm2 Impression: Fluoroscopically guided replacement of percutaneous gastrostomy
--- NOTE | 2018-12-17 14:23 | NUR ---
SW following pt. IV abx is discontinued. Please fax home health resumption orders to [facility], ; fax [phone].
[2018-12-17 15:00] VITALS: BP 156/82
--- NOTE | 2018-12-17 16:37 | NUR ---
Communication Evaluation completed. Pt able to communicate w/ gestures or verbally w/ use of finger occlusion or PMV valve. Pt has own PMV (speaking valve) present in container on side table and is independent in placement and use. Pt indicates her SOA and secretions make it more difficult to use currently. With PMV in place voice is mild-moderately hoarse w/ some breathiness but functional for words, phrases and some short sentences, as well as phone use. Articulation WFL. Receptive language appears WFL w/ pt able to readily follow 2 step directions and answer questions appropriately. Recommendations: No additional ST f/u as pt independent in use of PMV valve, functional communication w/ finger occlusion or PMV but w/ mild-moderate hoarseness and some breathiness. Use of PMV as pt comfortable with as currently she reports it increases her SOA. If pt is using PMV make sure it is removed at night. If SOA w/ PMV continues consider referral to RT for PMV schedule under RT supervision/precautions. Please refer to full report for additional details. D/w RN.
[2018-12-17] MEDS: LANSOPRAZOLE 30 MG TAB.RAP.DR FT SCH (16:41)
[2018-12-17] MEDS: FERROUS SULFATE ORAL 300 MG/5 ML SOLUTION. GT SCH (16:44)
[2018-12-17] MEDS ORDERED: FERROUS SULFATE ORAL 300 MG/5 ML SOLUTION. PO SCH (17:00)
[2018-12-17 19:00] VITALS: BP 156/86
[2018-12-17] MEDS: ONDANSETRON PF 4 MG/2 ML VIAL. IV PRN (22:02)
[2018-12-17] MEDS: MORPHINE SULFATE 2 MG/ML VIAL. IV PRN (22:03)
[2018-12-17 23:04] VITALS: BP 140/65
[2018-12-18] MEDS: oxyCODONE/APAP 7.5/325 1 TAB TABLET PO PRN ×2 (00:04→08:59)
[2018-12-18 03:04] VITALS: BP 147/80
[2018-12-18 07:00] VITALS: BP 160/87
--- NOTE | 2018-12-18 07:38 | PDOC ---
PULMONARY PROGRESS NOTES Subjective trach secretions LESS, no sob, has cough, no pain. Vitals Vital Signs Date Time Temp Pulse Resp B/P (MAP) Pulse Ox O2 Delivery O2 Flow Rate FiO2 12/18/18 03:04 98.5 86 20 147/80 (102) 99 Tracheal Collar 98.5 12/17/18 21:10 12.0 General: Alert, No acute distress Lungs: Other (rhonchi that partially clear with coughing, mild crackles, On o2 , Trach collar inplace, Port-A-Cath right chest) Cardiovascular: S1, S2 Abdomen: Soft, Non-tender Neuro Exam: Alert Extremities: No Edema Skin: Warm Labs Laboratory Tests Test 12/17/18 05:25 White Blood Count 10.6 x10^3/uL (4.0-11.0) Red Blood Count 4.16 x10^6/uL (3.50-5.40) Hemoglobin 9.4 g/dL (12.0-15.5) Hematocrit 31.0 % (36.0-47.0) Mean Corpuscular Volume 74 fL (79-100) Mean Corpuscular Hemoglobin 23 pg (25-35) Mean Corpuscular Hemoglobin Concent 30 g/dL (31-37) Red Cell Distribution Width 19.1 % (11.5-14.5) Platelet Count 548 x10^3/uL (140-400) Neutrophils (%) (Auto) 73 % (31-73) Lymphocytes (%) (Auto) 17 % (24-48) Monocytes (%) (Auto) 7 % (0-9) Eosinophils (%) (Auto) 2 % (0-3) Basophils (%) (Auto) 1 % (0-3) Neutrophils # (Auto) 7.7 x10^3uL (1.8-7.7) Lymphocytes # (Auto) 1.8 x10^3/uL (1.0-4.8) Monocytes # (Auto) 0.8 x10^3/uL (0.0-1.1) Eosinophils # (Auto) 0.2 x10^3/uL (0.0-0.7) Basophils # (Auto) 0.1 x10^3/uL (0.0-0.2) Reticulocyte Count (auto) 1.9 % (0.5-2.5) Iron Level 20 ug/dL (50-170) Total Iron Binding Capacity 357 ug/dL (250-450) Iron Saturation 6 % (15-34) Vitamin B12 Level 1644 pg/mL (247-911) Medications Active Scripts Medications Dose Route/Sig Max Daily Dose Days Date Category Percocet 7.5-325 Mg Tablet (Oxycodone/Acetaminophen) 1 Each Tablet 1 Tab PO QID PRN MDD 1 12/09/18 Rx FENTANYL 50mcg/hr (Fentanyl) 1 Each Patch.td72 1 Patch TP Q3DAYS MDD 1 12/09/18 Rx Albuterol Sulfate Neb Soln (Albuterol Sulfate) 0.63 Mg/3 Ml Vial.neb 1 Vial NEB QID 12/02/18 Reported Gabapentin (Gabapentin) 300 Mg Capsule 300 Mg PO BID PRN 10/19/18 Reported Amlodipine Besylate 5 Mg Tablet 5 Mg PO DAILY 10/19/18 Reported Culturelle (Lactobacillus Rhamnosus Gg) 1 Each Cap.sprink 1 Cap PO BID 30 07/07/17 Rx Pantoprazole Sodium 40 Mg Tablet.dr 40 Mg PEG BID 03/11/17 Reported Donepezil Hcl 5 Mg Tablet 5 Mg PEG BID 03/11/17 Reported Reglan (Metoclopramide Hcl) 10 Mg Tablet 5 Mg PO QIDACHS 03/11/17 Reported Cyproheptadine Hcl 2 Mg/5 Ml Syrup 10 Ml PEG TID 03/11/17 Reported Ondansetron Odt (Ondansetron) 4 Mg Tab.rapdis 4 Mg PEG QIDPRN PRN 06/19/14 Reported Impression . 1. Acute on chronic respiratory failure. 2. 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 3. Abnormal x-ray, possible new pneumonia. 4. Status post trach and PEG. 5. History of laryngeal carcinoma. Plan . 1. off Zerbaxa,/ Had 10 days of Rx. clinically better 2. continue oxygen supplementation. BD. 3. Continue home meds. 4. PRN Trach suction 5. dc plans per PCP d/w pt SUZANNE STEINER MD Dec 18, 2018 07:38
[2018-12-18] MEDS: ALBUTEROL SULFATE 2.5 MG/3 ML NEBU. NEB SCH ×2 (08:24→12:16)
[2018-12-18] MEDS: LANSOPRAZOLE 30 MG TAB.RAP.DR FT SCH (08:47)
[2018-12-18] MEDS: FERROUS SULFATE ORAL 300 MG/5 ML SOLUTION. GT SCH (08:47)
[2018-12-18] MEDS: METOCLOPRAMIDE 10 MG TABLET. PO SCH ×2 (08:48→12:03)
[2018-12-18] MEDS: amLODIPine BESYLATE 5 MG TABLET PO SCH (08:48)
[2018-12-18] MEDS: SCOPOLAMINE 1.5MG PATCH. TD SCH (08:48)
[2018-12-18] MEDS: LACTOBACILLUS RHAMNOSUS GG 1 CAPSULE. PO SCH (08:48)
[2018-12-18] MEDS: DONEPEZIL HCL 5 MG TABLET. PO SCH (08:48)
--- NOTE | 2018-12-18 10:26 | SNU/HH DC ---
DISCHARGE WITH HOME HEALTH DISCHARGE INFORMATION: Condition on Discharge: Stable CODE STATUS: Code Status: Full HOME HEALTH: Face to Face: I certify this patient is under my care and that I, or a nurse practitioner or physician's aquatics assistant department head working with me, had a face to face encounter that meets the physician face to face encounter requirements with this patient on []. Medical Complications: CVA Fci For: Enteral Feeding Care RN For Eval/Treatment: Yes Physical Therapy For: Evalulation/Treatment Occupational Therapy For: Evaluation/Treatment Home Health Aide For: Self-care [employer]ER For: Community Resources Pt Meets Homebound Status: Poor coordination w/ amb. POST DISCHARGE ORDERS: Activity Instructions for Disc: Activity as tolerated Weight Bearing Status after Di: As tolerated DIET AFTER DISCHARGE: ADA Wound/Incision Care: No wound care needed CHECKS AFTER DISCHARGE: Checks after discharge: Check blood press - daily FOLLOW-UP: DC TO SNF LABS: BMP 06/22/18, Q 8 hours 750mg Zerbexa for MDRO PNA TREATMENT/EQUIPMENT ORDERS: Adaptive Equipment Issued: None, Bath Bench, Commode Discharge Respiratory Equipmen: Oxygen, Nebulizer CERTIFICATION STATEMENT: Certification Statement: Certification Statement: Based on the above finding, I certify that this patient is confined to the home and needs intermittent [facility] care, physical therapy and/or speech therapy, or continues to need occupational therapy.~ This patient is under my care, and I have initiated the establishment of the plan of care.~ This patient will be followed by myself or a community physician who will periodically review the plan of care. Home Meds Active Scripts Oxycodone/Apap 7.5-325 (PERCOCET 7.5-325 MG TABLET ) 1 Each Tablet, 1 TAB PO QID PRN for PAIN MDD 1, #30 TAB Prov:HEAVEN KRAUS MD 12/09/18 Fentanyl (FENTANYL 50mcg/hr) 1 Each Patch.td72, 1 PATCH TP Q3DAYS for pain MDD 1 , #7 PATCH Prov:HEAVEN KRAUS MD 12/09/18 Lactobacillus Rhamnosus Gg (CULTURELLE) 1 Each Cap.sprink, 1 CAP PO BID for 30 Days, #60 CAP Prov:JAVIER IRVIN MD 07/07/17 Reported Medications Albuterol Sulfate (ALBUTEROL SULFATE NEB SOLN) 0.63 Mg/3 Ml Vial.neb, 1 VIAL NEB QID for copd, #150 ML 1 Refill 12/02/18 Gabapentin (GABAPENTIN ) 300 Mg Capsule, 300 MG PO BID PRN for PAIN, CAP 10/19/18 Amlodipine Besylate (AMLODIPINE BESYLATE) 5 Mg Tablet, 5 MG PO DAILY for htn, TAB 10/19/18 Pantoprazole Sodium (PANTOPRAZOLE SODIUM) 40 Mg Tablet.dr, 40 MG PEG BID, TAB 03/11/17 Donepezil Hcl (DONEPEZIL HCL) 5 Mg Tablet, 5 MG PEG BID 03/11/17 Metoclopramide Hcl (REGLAN) 10 Mg Tablet, 5 MG PO QIDACHS 03/11/17 Cyproheptadine Hcl (CYPROHEPTADINE HCL) 2 Mg/5 Ml Syrup, 10 ML PEG TID, MISC 03/11/17 Ondansetron (ONDANSETRON ODT) 4 Mg Tab.rapdis, 4 MG PEG QIDPRN PRN for NAUSEA/ VOMITING 06/19/14 SAMMY WILEY III DO Dec 18, 2018 10:25
--- NOTE | 2018-12-18 10:45 | PDOC ---
PROGRESS NOTES Chief Complaint Chief Complaint Acute on chronic respiratory failure- multifactorial with recurrent pneumonia, COPD, and mild CHF PEG tube exchanged 12/16/18 by IR H/o recurrent pneumonia with multidrug-resistant Pseudomonas and MRSA Leukocytosis Elevated troponin; highest 0.168 2/2 demand ischemia, EF and WM nml with moderate pulmonary HTN. Acute on chronic diastolic CHF Hypertension Hx of laryngeal CA and SCC with trach Hx of dysphagia with PEG, receiving TF Dementia History of Present Illness History of Present Illness Pt seen and examined, sitting upright in bed Trach collar and peg in place Wants to be d/c home with HH No new complaints Vitals Vitals Vital Signs Date Time Temp Pulse Resp B/P (MAP) Pulse Ox O2 Delivery O2 Flow Rate FiO2 12/18/18 08:48 86 160/87 12/18/18 08:25 99 12.0 12/18/18 07:00 98.1 16 Tracheal Collar 98.1 Physical Exam General: Alert, No acute distress, Other (Trach collar in place, C/D/I) Heart: Regular rate, Normal S1, Normal S2, No murmurs Lungs: Other (Slight wheeze, Trach collar inplace, Port-A-Cath right chest) Abdomen: Soft, Other (peg in place c/d/i) Extremities: No clubbing, No cyanosis Skin: No rashes, No breakdown, No significant lesion Review of Systems Review of Systems Denies F/C, N/V Assessment and Plan Assessmemt and Plan Assessment: Acute on chronic respiratory failure- multifactorial with recurrent pneumonia, COPD, and mild CHF PEG tube exchanged 12/16/18 by IR H/o recurrent pneumonia with multidrug-resistant Pseudomonas and MRSA Leukocytosis, improving Elevated troponin; highest 0.168 2/2 demand ischemia, EF and WM nml with moderate pulmonary HTN. 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 Labs Laboratory Tests Test 12/17/18 05:25 White Blood Count 10.6 x10^3/uL (4.0-11.0) Red Blood Count 4.16 x10^6/uL (3.50-5.40) Hemoglobin 9.4 g/dL (12.0-15.5) Hematocrit 31.0 % (36.0-47.0) Mean Corpuscular Volume 74 fL (79-100) Mean Corpuscular Hemoglobin 23 pg (25-35) Mean Corpuscular Hemoglobin Concent 30 g/dL (31-37) Red Cell Distribution Width 19.1 % (11.5-14.5) Platelet Count 548 x10^3/uL (140-400) Neutrophils (%) (Auto) 73 % (31-73) Lymphocytes (%) (Auto) 17 % (24-48) Monocytes (%) (Auto) 7 % (0-9) Eosinophils (%) (Auto) 2 % (0-3) Basophils (%) (Auto) 1 % (0-3) Neutrophils # (Auto) 7.7 x10^3uL (1.8-7.7) Lymphocytes # (Auto) 1.8 x10^3/uL (1.0-4.8) Monocytes # (Auto) 0.8 x10^3/uL (0.0-1.1) Eosinophils # (Auto) 0.2 x10^3/uL (0.0-0.7) Basophils # (Auto) 0.1 x10^3/uL (0.0-0.2) Reticulocyte Count (auto) 1.9 % (0.5-2.5) Iron Level 20 ug/dL (50-170) Total Iron Binding Capacity 357 ug/dL (250-450) Iron Saturation 6 % (15-34) Vitamin B12 Level 1644 pg/mL (247-911) Microbiology 12/13/18 Blood Culture - Preliminary, Resulted NO GROWTH AFTER 4 DAYS Medications Current Medications Albuterol/ Ipratropium (Duoneb) 3 ml 1X ONCE NEB Last administered on at 10:30; Start 12/13/18 at 10:30; Stop 12/13/18 at 10:31; Status DC Sodium Chloride 500 ml @ 500 mls/hr 1X ONCE IV Last administered on 12/13/18at 10:30; Start 12/13/18 at 10:30; Stop 12/13/18 at 11:29; Status DC Vancomycin HCl (Vanco Per Pharmacy) 1 each PRN DAILY PRN MC SEE COMMENTS Last administered on 12/13/18at 13:28; Start 12/13/18 at 10:30; Stop 12/13/18 at 19:00; Status DC Vancomycin HCl 1.25 gm/Sodium Chloride 250 ml @ 166.667 mls/hr 1X ONCE IV Last administered on 12/13/18at 10:53; Start 12/13/18 at 10:45; Stop 12/13/18 at 12: 14; Status DC Furosemide (Lasix) 20 mg 1X ONCE IVP Last administered on 12/13/18at 15:30; Start 12/13/18 at 12:15; Stop 12/13/18 at 12:17; Status DC Vancomycin HCl 1 gm/Sodium Chloride 250 ml @ 250 mls/hr Q12H IV ; Start at 23:00; Stop 12/13/18 at 23:00; Status DC Vancomycin HCl 750 mg/Sodium Chloride 250 ml @ 250 mls/hr Q12H IV ; Start at 23:00; Stop 12/13/18 at 23:00; Status DC Vancomycin HCl (Vancomycin Trough Level) 1 each 1X ONCE MC ; Start 12/14/18 at 10:30; Stop 12/14/18 at 10:30; Status DC Pharmacy Consult (C.diff Med Screen By Rx) 1 each 1X ONCE MC ; Start 12/13/18 at 14:45; Stop 12/13/18 at 14:46; Status UNV Ceftolozane/ Tazobactam 750 mg/ Sodium Chloride 100 ml @ 100 mls/hr Q8HRS IV Last administered on 12/17/18at 06:12; Start 12/13/18 at 15:30; Stop 12/17/18 at 09: 24; Status DC Amlodipine Besylate (Norvasc) 5 mg DAILY PO Last administered on 12/14/18at 08:12 ; Start 12/13/18 at 15:30; Stop 12/14/18 at 11:52; Status DC Fentanyl (Duragesic 50mcg/ Hr Patch) 1 patch Q3DAYS TD Last administered on 12/17at 08:20; Start 12/14/18 at 09:00 Gabapentin (Neurontin) 300 mg PRN BID PRN PO NERVE PAIN Last administered on 09:13; Start 12/13/18 at 14:45 Lactobacillus Rhamnosus (Culturelle) 1 cap BID PO Last administered on 08:48; Start 12/13/18 at 21:00 Metoclopramide HCl (Reglan) 5 mg QIDACHS PO Last administered on 12/18/18 08:48 ; Start 12/13/18 at 16:30 Ondansetron HCl (Zofran Odt) 4 mg QIDPRN PRN PEG NAUSEA/VOMITING Last administered on 12/14/18 23:25; Start 12/13/18 at 14:45 Oxycodone/ Acetaminophen (Percocet 7.5/ 325) 1 tab PRN QID PRN PO PAIN Last administered on 12/18/18 00:04; Start 12/13/18 at 14:45 Lansoprazole (Prevacid) 30 mg BIDBFRMEAL PEG Last administered on 12/17/18 08: 12; Start 12/13/18 at 16:30; Stop 12/17/18 at 09:27; Status DC Non-Formulary Medication (Albuterol Sulfate (Albuterol Sulfate Neb Soln)) 1 vial QID NEB ; Start 12/13/18 at 17:00; Status UNV Donepezil HCl (Aricept) 5 mg BID PO Last administered on 12/18/18 08:48; Start 12/13/18 at 21:00 Albuterol Sulfate (Ventolin Neb Soln) 2.5 mg RTQID NEB Last administered on 12/18 08:24; Start 12/13/18 at 16:00 Aspirin (Ecotrin) 81 mg DAILYWBKFT PO ; Start 12/14/18 at 08:00; Status UNV Amlodipine Besylate (Norvasc) 10 mg DAILY PO Last administered on 12/18/18 08: 48; Start 12/15/18 at 09:00 Furosemide (Lasix) 20 mg 1X ONCE IVP Last administered on 12/14/18 13:40; Start 12/14/18 at 12:00; Stop 12/14/18 at 12:02; Status DC Amlodipine Besylate (Norvasc) 5 mg 1X ONCE PO Last administered on 12/14/18at 13 :39; Start 12/14/18 at 12:00; Stop 12/14/18 at 12:02; Status DC Hydralazine HCl (Apresoline Inj) 10 mg PRN Q4HRS PRN IVP ELEVATED BP, SEE COMMENTS; Start 12/14/18 at 12:00 Alteplase, Recombinant (Cathflo For Central Catheter Clearance) 1 mg 1X ONCE INT CAT Last administered on 12/14/18at 15:15; Start 12/14/18 at 13:15; Stop at 13:20; Status DC Oxycodone/ Acetaminophen (Percocet 7.5/ 325) 1 tab 1X ONCE PEG Last administered on 12/14/18at 21:36; Start 12/14/18 at 21:30; Stop 12/14/18 at 21:31; Status DC Iohexol (Omnipaque 240 Mg/ml) 50 ml STK-MED ONCE .ROUTE ; Start 12/15/18 at 09:51 ; Stop 12/15/18 at 09:52; Status DC Iohexol (Omnipaque 240 Mg/ml) 5 ml 1X ONCE IV Last administered on 12/15/18at 10 :30; Start 12/15/18 at 10:30; Stop 12/15/18 at 10:33; Status DC Info (CONTRAST GIVEN -- Rx MONITORING) 1 each PRN DAILY PRN MC SEE COMMENTS; Start 12/15/18 at 10:45; Stop 12/17/18 at 10:44; Status Cancel Ondansetron HCl (Zofran) 4 mg PRN Q6HRS PRN IV NAUSEA/VOMITING Last administered on 12/17/18at 22:02; Start 12/15/18 at 14:15 Scopolamine (Transderm-Scop) 1 patch Q3DAYS TD Last administered on 12/18/18 08 :48; Start 12/15/18 at 15:15 Morphine Sulfate (Morphine Sulfate) 2 mg PRN Q2HR PRN IV PAIN Last administered on 12/17/18at 22:03; Start 12/15/18 at 19:15 Iohexol (Omnipaque 300 Mg/ml) 50 ml 1X ONCE PO ; Start 12/16/18 at 09:30; Stop 12/16/18 at 09:31; Status DC Info (CONTRAST GIVEN -- Rx MONITORING) 1 each PRN DAILY PRN MC SEE COMMENTS; Start 12/16/18 at 09:45; Stop 12/18/18 at 09:44; Status Cancel Pantoprazole Sodium (PROTONIX VIAL for IV PUSH) 40 mg DAILYAC IVP Last administered on 12/17/18at 08:10; Start 12/16/18 at 12:00; Stop 12/17/18 at 09:23; Status DC Iohexol (Omnipaque 240 Mg/ml) 50 ml STK-MED ONCE .ROUTE ; Start 12/16/18 at 13:28 ; Stop 12/16/18 at 13:29; Status DC Iohexol (Omnipaque 240 Mg/ml) 50 ml 1X ONCE IJ Last administered on 12/16/18at 13:55; Start 12/16/18 at 13:45; Stop 12/16/18 at 13:46; Status DC Info (CONTRAST GIVEN -- Rx MONITORING) 1 each PRN DAILY PRN MC SEE COMMENTS; Start 12/16/18 at 13:45; Stop 12/18/18 at 13:44 Lansoprazole (Prevacid) 30 mg BIDBFRMEAL FT Last administered on 12/18/18at 08:47 ; Start 12/17/18 at 16:30 Ferrous Sulfate (Iron Oral Solution) 300 mg BIDWMEALS PO ; Start 12/17/18 at 17: 00; Stop 12/17/18 at 17:00; Status DC Ferrous Sulfate (Iron Oral Solution) 300 mg BIDWMEALS GT Last administered on at 08:47; Start 12/17/18 at 17:00 Active Scripts Active Percocet 7.5-325 Mg Tablet (Oxycodone/Acetaminophen) 1 Each Tablet 1 Tab PO QID PRN MDD 1 FENTANYL 50mcg/hr (Fentanyl) 1 Each Patch.td72 1 Patch TP Q3DAYS MDD 1 Culturelle (Lactobacillus Rhamnosus Gg) 1 Each Cap.sprink 1 Cap PO BID 30 Days Reported Albuterol Sulfate Neb Soln (Albuterol Sulfate) 0.63 Mg/3 Ml Vial.neb 1 Vial NEB QID Gabapentin (Gabapentin) 300 Mg Capsule 300 Mg PO BID PRN Amlodipine Besylate 5 Mg Tablet 5 Mg PO DAILY Pantoprazole Sodium 40 Mg Tablet.dr 40 Mg PEG BID Donepezil Hcl 5 Mg Tablet 5 Mg PEG BID Reglan (Metoclopramide Hcl) 10 Mg Tablet 5 Mg PO QIDACHS Cyproheptadine Hcl 2 Mg/5 Ml Syrup 10 Ml PEG TID Ondansetron Odt (Ondansetron) 4 Mg Tab.rapdis 4 Mg PEG QIDPRN PRN Vitals/I & O Vital Sign - Last 24 Hours 12/17/18 12/17/18 12/17/18 12/17/18 11:00 11:57 12:20 15:00 Temp 97.0 98.3 97.0 98.3 Pulse 96 99 Resp 20 22 B/P (MAP) 136/66 (89) 156/82 (106) Pulse Ox 97 98 98 99 O2 Delivery Tracheal Collar Tracheal Collar Tracheal Collar O2 Flow Rate 10.0 10.0 10.0 10.0 12/17/18 12/17/18 12/17/18 12/17/18 15:34 16:45 17:45 19:00 Temp 98.4 98.4 Pulse 89 Resp 20 20 B/P (MAP) 156/86 (109) Pulse Ox 99 97 100 O2 Delivery Tracheal Collar Tracheal Collar Tracheal Collar O2 Flow Rate 10.0 14.0 14.0 12/17/18 12/17/18 12/17/18 12/17/18 20:05 21:10 22:03 22:33 Resp 22 20 Pulse Ox 100 O2 Delivery Trach Collar Tracheal Collar Tracheal Collar O2 Flow Rate 14.0 12.0 12/17/18 12/18/18 12/18/18 12/18/18 23:04 00:04 01:04 03:04 Temp 97.8 98.5 97.8 98.5 Pulse 99 86 Resp 20 22 22 20 B/P (MAP) 140/65 (90) 147/80 (102) Pulse Ox 95 99 O2 Delivery Tracheal Collar Tracheal Collar Tracheal Collar Tracheal Collar 12/18/18 12/18/18 12/18/18 07:00 08:25 08:48 Temp 98.1 98.1 Pulse 86 86 Resp 16 B/P (MAP) 160/87 (111) 160/87 Pulse Ox 98 99 O2 Delivery Tracheal Collar O2 Flow Rate 10.0 12.0 Intake and Output 12/17/18 12/17/18 12/18/18 14:59 22:59 06:59 Intake Total 880 ml 1000 ml 240 ml Output Total 0 ml Balance 880 ml 1000 ml 240 ml Nutrition Consultation Dietary Evaluation: Recommendations by RD: Increase Calorie Intake Comments: Continue w/TF per current order: Jevity 1.5 bolus QID (1 carton/237 ml per bolus) w/200 ml water flushes QID Expected Outcomes/Goals: TF intake to meet >75% est needs - goal ongoing Malnutrition Findings: Body Fat Depletion (Non Severe: Mild Depletion Weight Status: Appropriate CASTLE,NIAL K III DO Dec 18, 2018 10:45
[2018-12-18 11:00] VITALS: BP 110/49
[2018-12-18] MEDS: ONDANSETRON ODT 4 MG TAB.RAPDIS. PEG PRN (12:38)
--- NOTE | 2018-12-18 13:47 | NUR ---
Discharge Note: GISELLE DE LEON Discharge instructions and discharge home medications reviewed with Patient and a copy given. All questions have been answered and understanding verbalized. The following instructions and handouts were given: Patient given education regarding pneumonia. Discontinued lines and drains: Iv removed per protocol. Patient discharged home with home health.
--- NOTE | 2018-12-18 19:19 | DS ---
DATE OF DISCHARGE: 12/18/2018 ADMISSION DIAGNOSES: Multifactorial respiratory failure including probable congestive heart failure, pneumonia, history of lung cancer and tracheostomy. DISCHARGE DIAGNOSES: Resolving multifactorial respiratory failure, history of lung cancer, chronic tracheostomy, PEG tube, dementia, hypertension, methicillin-resistant Staphylococcus aureus, previous pneumonias, cataract surgery and right chest wall port. CONSULTS: General Surgery, Pulmonary and Infectious Disease. PROCEDURES: None. HOSPITAL COURSE: The patient is a pleasant elderly female well known to our service. Basically, she has lung cancer and has a tracheostomy. We admit her at least once a month. Once again, she presented with respiratory failure. She was short of breath. She was hypoxic. The chest x-ray was showing some vascular congestion and possible pneumonia. We admitted her. We gave her IV antibiotics and DuoNeb and the above consults were obtained. No procedures had to be performed. Over the last 5 days, she has improved. I examined her this morning. Her heart tones were normal. Her lungs were much clearer. She is in good spirits. She wants to go home. We plan to discharge with home health if okay with the consultants. DISPOSITION: Home with home health. ACTIVITY: As tolerated. DIET: Low sodium. MEDICATIONS: Please see the MRAD. Total time 38 minutes. SAMMY WILEY DO DR: KADE/sena JOB#: [id number] / [id number]
== END 2018-12-18 13:50 | disposition home health service (06) | DRG 871 ==
LOC: ER 10:15 → 2 NORTH 12:20 → 5 NORTH 12-16 13:17
PROVIDERS: ADMIT Internal Medicine; ATTEND Internal Medicine
PROC: B5131ZA Fluoroscopy of Right Jugular Veins using Low Osmolar Contrast, Guidance (ICD-10-PCS; 2018-12-16)
PROC: 0D20XUZ Change Feeding Device in Upper Intestinal Tract, External Approach (ICD-10-PCS; principal; 2018-12-17)
DX: A41.9 Sepsis, unspecified organism (principal); J18.9 Pneumonia, unspecified organism; J96.21 Acute and chronic respiratory failure with hypoxia; I50.43 Acute on chronic combined systolic (congestive) and diastolic (congestive) heart failure; K94.23 Gastrostomy malfunction; C34.90 Malignant neoplasm of unspecified part of unspecified bronchus or lung; E87.2 Acidosis; I24.8 Other forms of acute ischemic heart disease; J44.0 Chronic obstructive pulmonary disease with (acute) lower respiratory infection; I11.0 Hypertensive heart disease with heart failure; C32.9 Malignant neoplasm of larynx, unspecified; F03.90 Unspecified dementia, unspecified severity, without behavioral disturbance, psychotic disturbance, mood disturbance, and anxiety; F41.9 Anxiety disorder, unspecified; I27.20 Pulmonary hypertension, unspecified; K21.9 Gastro-esophageal reflux disease without esophagitis; R13.12 Dysphagia, oropharyngeal phase; Z16.19 Resistance to other specified beta lactam antibiotics; Z16.24 Resistance to multiple antibiotics; M19.90 Unspecified osteoarthritis, unspecified site; Z82.49 Family history of ischemic heart disease and other diseases of the circulatory system; Z85.118 Personal history of other malignant neoplasm of bronchus and lung; Z85.21 Personal history of malignant neoplasm of larynx; Z86.14 Personal history of Methicillin resistant Staphylococcus aureus infection; Z87.891 Personal history of nicotine dependence; Z91.19 Patient's noncompliance with other medical treatment and regimen; Z87.01 Personal history of pneumonia (recurrent); Z92.21 Personal history of antineoplastic chemotherapy; Z92.3 Personal history of irradiation; Z93.0 Tracheostomy status; Z93.3 Colostomy status; Z99.81 Dependence on supplemental oxygen; Z88.8 Allergy status to other drugs, medicaments and biological substances; Z45.2 Encounter for adjustment and management of vascular access device
CPT/HCPCS: 31720; 36415; 36598; 49450; 71045; 74018; 80053; 82565; 82607; 83540; 83550; 83605; 83690; 83735; 83880; 84145; 84484; 85007; 85025; 85045; 85610; 87040; 93005; 94640; 94760; 96361; 96365; B4087; C9113; J1940; J2270; J2405; J3370; J7040; J7050; J7613; J7620; J8597; Q0162; Q9966; 92522; 99285-25; J0695; J7030

== ENCOUNTER 2019-01-12 12:14 | Inpatient (IN) | payer MEDICARE, OTHER ==
[~2019-01-12] VITALS: Ht 172.7 cm; Wt 50.0 kg
[2019-01-12] MEDS ORDERED: IPRATRPIUM/ALBUTEROL 0.5/2.5MG 3 ML NEBU. NEB ONE (14:30)
--- NOTE | 2019-01-12 14:40 | PHYS DOC ---
Past Medical History Past Medical History: Cancer, COPD, Dementia, Hypertension, MRSA, Pneumonia, Other Additional Past Medical Histor: Lung CA Past Surgical History: Other Additional Past Surgical Histo: Cataract,PEG tube,CA trach,PORT Alcohol Use: None Drug Use: None Adult General Chief Complaint Chief Complaint: OTHER COMPLAINTS HPI HPI Patient is a 78-year-old female with a past history of lung cancer, reportedly in remission now, COPD, as well as a tracheostomy, who presents to the emergency department for evaluation. The patient's caregiver states that she came to the patient's home today and found that her oxygen saturation was very low, although the patient was not wearing her tracheostomy collar. She is supposed to be on 5 L via oxygen concentrator or oxygen bottle, but does not wear it all the time, and when the caregiver put the tracheostomy collar back on, she could only get her oxygen saturation up to the 80s, so EMS was called. The patient has been given breathing treatments at home. Patient denies any pain. Does admit to mild cough, and some shortness of breath. She denies any new pain. She has not had any nausea, vomiting, or diarrhea. There are no alleviating or exacerbating factors to the patient's symptoms. Discharge summary from her recent hospitalization has been reviewed. Review of Systems Review of Systems Constitutional: Denies fever or chills [] Eyes: Denies change in visual acuity, redness, or eye pain [] HENT: Denies nasal congestion or sore throat [] Respiratory: Admits to nonproductive cough and shortness of breath.[] Cardiovascular: No additional information not addressed in HPI [] GI: Denies abdominal pain, nausea, vomiting, bloody stools or diarrhea [] : Denies dysuria or hematuria [] Musculoskeletal: Denies back pain or joint pain [] Integument: Denies rash or skin lesions [] Neurologic: Denies headache, focal weakness or sensory changes [] Endocrine: Denies polyuria or polydipsia [] All other systems were reviewed and found to be within normal limits, except as documented in this note. Current Medications Current Medications Current Medications Medications (Trade) Dose Ordered Sig/Yuliana Start Time Stop Time Status Last Admin Dose Admin Albuterol/ Ipratropium (Duoneb) 3 ml 1X ONCE 01/12/19 14:30 01/12/19 14:35 DC 01/12/19 14:56 3 ML Piperacillin Sod/ Tazobactam Sod (Zosyn Per Pharmacy) 1 each PRN DAILY PRN 01/12/19 16:15 UNV Piperacillin Sod/ Tazobactam Sod 3.375 gm/Sodium Chloride 50 ml @ 100 mls/hr 1X ONCE 01/12/19 16:15 01/12/19 16:44 Vancomycin HCl (Vanco Per Pharmacy) 1 each PRN DAILY PRN 01/12/19 16:15 UNV Vancomycin HCl 1.25 gm/Sodium Chloride 250 ml @ 166.667 mls/hr 1X ONCE 01/12/19 16:15 01/12/19 17:44 Allergies Allergies Allergies Coded Allergies Type Severity Reaction Last Updated Verified aspirin Allergy Intermediate hives 03/16/17 Yes I S O L A T I O N *CONTACT* Allergy Unknown 08/15/18 Yes Physical Exam Physical Exam PHYSICAL EXAM: CONSTITUTIONAL: Thin appearing HEAD: normocephalic, atraumatic EENT: PERRL, EOMI. Conjunctivae normal color, sclerae non-icteric; moist mucous membranes. NECK: Supple, non-tender; no meningismus. LUNGS: There are diminished breath sounds in the left lung szymanski, there are scattered wheezes and rhonchi in the right lung, breathing even and unlabored. Normal air movement. HEART: Regular rate and rhythm, no murmur CHEST: No deformity; non-tender ABDOMEN: The abdomen is soft, and non-tender, no masses or bruits. EXTREM: Normal ROM; no deformity, no calf tenderness. Normal pulses palpable in all extremities. There is no pedal edema. SKIN: No rash; no diaphoresis NEURO: Alert; normal speech and cognition; CN's grossly intact; strength grossly intact without focal deficit. BACK: No CVA TTP. Current Patient Data Vital Signs Vital Signs Date Time Temp Pulse Resp B/P (MAP) Pulse Ox O2 Delivery O2 Flow Rate FiO2 01/12/19 14:59 89 Nasal Cannula 5.0 01/12/19 12:36 98.3 100 20 120/65 (83) 98.3 Lab Values Laboratory Tests Test 01/12/19 14:50 White Blood Count 25.8 x10^3/uL (4.0-11.0) H Red Blood Count 4.20 x10^6/uL (3.50-5.40) Hemoglobin 8.6 g/dL (12.0-15.5) L Hematocrit 30.1 % (36.0-47.0) L Mean Corpuscular Volume 72 fL (79-100) L Mean Corpuscular Hemoglobin 21 pg (25-35) L Mean Corpuscular Hemoglobin Concent 29 g/dL (31-37) L Red Cell Distribution Width 19.3 % (11.5-14.5) H Platelet Count 513 x10^3/uL (140-400) H Neutrophils (%) (Auto) 87 % (31-73) H Lymphocytes (%) (Auto) 8 % (24-48) L Monocytes (%) (Auto) 5 % (0-9) Eosinophils (%) (Auto) 0 % (0-3) Basophils (%) (Auto) 1 % (0-3) Neutrophils # (Auto) 22.3 x10^3uL (1.8-7.7) H Lymphocytes # (Auto) 2.0 x10^3/uL (1.0-4.8) Monocytes # (Auto) 1.3 x10^3/uL (0.0-1.1) H Eosinophils # (Auto) 0.0 x10^3/uL (0.0-0.7) Basophils # (Auto) 0.1 x10^3/uL (0.0-0.2) Platelet Estimate Pending Sodium Level 137 mmol/L (136-145) Potassium Level 4.5 mmol/L (3.5-5.1) Chloride Level 99 mmol/L (98-107) Carbon Dioxide Level 34 mmol/L (21-32) H Anion Gap 4 (6-14) L Blood Urea Nitrogen 17 mg/dL (7-20) Creatinine 0.8 mg/dL (0.6-1.0) Estimated GFR (Cockcroft-Gault) 84.2 Glucose Level 85 mg/dL (70-99) Calcium Level 9.2 mg/dL (8.5-10.1) Troponin I Quantitative 0.035 ng/mL (0.000-0.055) OQ-Ywl-G-Type Natriuretic Peptide 1551 pg/mL (0-449) H Laboratory Tests 01/12/19 14:50 Laboratory Tests 01/12/19 14:50 EKG EKG Normal sinus rhythm at a rate of 100 beats for minute, left axis deviation, normal intervals, left ventricular hypertrophy with repolarization abnormality without acute ischemic ST/T changes.[] Radiology/Procedures Radiology/Procedures [PROCEDURE: PORTABLE CHEST 1V EXAM: CHEST 1 VIEW History: Shortness of breath COMPARISON: 12/15/2018. Findings: Tracheostomy tube in place. Right-sided Port-A-Cath is unchanged. Increase in focal consolidation in the left upper lobe of the lung likely pneumonia or atelectasis with patchy diffuse airspace opacities in the left lung likely atelectasis or infiltrates. Small left pleural effusion. IMPRESSION: Increased focal consolidation left upper lobe of the lung likely pneumonia with patchy diffuse airspace opacity identified in the left lung likely atelectasis or infiltrates.] Course & Med Decision Making Course & Med Decision Making Pertinent Labs and Imaging studies reviewed. (See chart for details) []4:35 PM:The patient's condition remains stable. I spoke with the hospitalist, who accepted the patient to the hospital for further evaluation and treatment. Dragon Disclaimer Dragon Disclaimer This electronic medical record was generated, in whole or in part, using a voice recognition dictation system. Departure Departure Impression: Primary Impression: PNA (pneumonia) Additional Impressions: Dyspnea Hypoxic episode Disposition: ADMITTED INPATIENT Condition: STABLE Referrals: CATHERINE MOSCOSO MD (PCP) Problem Qualifiers MARYSE REDDY MD January 12, 2019 14:40
--- NOTE | 2019-01-12 14:54 | RAD ---
EXAM: CHEST 1 VIEW History: Shortness of breath COMPARISON: 12/15/2018. Findings: Tracheostomy tube in place. Right-sided Port-A-Cath is unchanged. Increase in focal consolidation in the left upper lobe of the lung likely pneumonia or atelectasis with patchy diffuse airspace opacities in the left lung likely atelectasis or infiltrates. Small left pleural effusion. IMPRESSION: Increased focal consolidation left upper lobe of the lung likely pneumonia with patchy diffuse airspace opacity identified in the left lung likely atelectasis or infiltrates. Electronically signed by: Frankie Farmer MD (01/12/2019 2:51 PM) [id number]
[2019-01-12 15:01] LABS: BASO # 0.1 x10^3/uL (0.0-0.2); BASO % 1 % (0-3); EOS % 0 % (0-3); HEMATOCRIT 30.1 % (36.0-47.0); HEMOGLOBIN 8.6 g/dL (12.0-15.5); LYMPH % 8 % (24-48); MEAN CORPUSCULAR HEMOGLOBIN 21 pg (25-35); MEAN CORPUSCULAR HGB CONC 29 g/dL (31-37); MEAN CORPUSCULAR VOLUME 72 fL (79-100); MONO # 1.3 x10^3/uL (0.0-1.1); MONO % 5 % (0-9); NEUT # 22.3 x10^3uL (1.8-7.7); NEUT % 87 % (31-73); PLATELET COUNT 513 x10^3/uL (140-400); RED CELL DISTRIBUTION WIDTH 19.3 % (11.5-14.5); WHITE BLOOD COUNT 25.8 x10^3/uL (4.0-11.0)
[2019-01-12 15:05] LABS: CALCIUM 9.2 mg/dL (8.5-10.1); CREATININE 0.8 mg/dL (0.6-1.0); GFR 84.2; POTASSIUM 4.5 mmol/L (3.5-5.1)
--- NOTE | 2019-01-12 16:13 | EKG ---
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
[2019-01-12] MEDS ORDERED: PIP/TAZO PER PHARMACY MC PRN (16:15)
[2019-01-12] MEDS ORDERED: VANCOMYCIN 1.25 GM in IV NORMAL SALINE 250ML 250 ML IV ONE (16:15)
[2019-01-12] MEDS ORDERED: PIPERACILLIN/TAZOBACTAM 3.375 GM in IV NORMAL SALINE 50ML 50 ML IV ONE (16:15)
--- NOTE | 2019-01-12 16:23 | PDOC1 ---
History and Physical Date of Admission Date of Admission DATE: 01/12/19 TIME: 16:17 Identification/Chief Complaint Chief Complaint Shortness of breath Source Source: Patient History of Present Illness History of Present Illness Patient is a 78yo complicated patient with chronic hypercapnic respiratory failure s/p trach, chronic dysphagia s/p PEG, h/o lung ca, and recent treatment for carbapenem resistant pseudomonas pneumonia who was brought in by her sister with worsening hypoxia at home with some increased secretions per trach, no mucous plugging. She was having difficulty with nebulizers at home as well as trach care and did not receive antibiotics, but has been hospitalized multiple times this year already. Her oxygen saturation was very low, although the patient was not wearing her tracheostomy collar. She is supposed to be on 5 L via oxygen concentrator. She has been using an IS at home since her last hospital stay, feels this was helping her until a couple days ago. Does admit to mild cough, and some shortness of breath. Her sister suctioned some thick secretions a few days ago and brushed the trach clean, but has not noted any more thick secretions. She denies any new pain. She can only wear her speaking valve for minutes at a time prior to O2 desaturations. Past Medical History Cardiovascular: HTN Pulmonary: COPD, Previously Intubated, Pneumonia, Other CENTRAL NERVOUS SYSTEM: Other GI: Other Heme/Onc: Anemia NOS, Cancer Hepatobiliary: No pertinent hx Psych: No pertinent hx Musculoskeletal: Osteoarthritis Rheumatologic: No pertinent hx Infectious disease: No pertinent hx Renal/: No pertinent hx Endocrine: No pertinent hx Past Surgical History Past Surgical History: Cataract Removal, Other Family History Family History: Heart Disease Social History Smoke: No ALCOHOL: none Drugs: None Current Medications Current Medications Current Medications Albuterol/ Ipratropium (Duoneb) 3 ml 1X ONCE NEB Last administered on 01/12/19at 14:56; Start 01/12/19 at 14:30; Stop 01/12/19 at 14:35; Status DC Piperacillin Sod/ Tazobactam Sod (Zosyn Per Pharmacy) 1 each PRN DAILY PRN MC SEE COMMENTS; Start 01/12/19 at 16:15; Status UNV Vancomycin HCl (Vanco Per Pharmacy) 1 each PRN DAILY PRN MC SEE COMMENTS; Start 01/12/19 at 16:15; Status UNV Vancomycin HCl 1.25 gm/Sodium Chloride 250 ml @ 166.667 mls/hr 1X ONCE IV ; Start 01/12/19 at 16:15; Stop 01/12/19 at 17:44 Piperacillin Sod/ Tazobactam Sod 3.375 gm/Sodium Chloride 50 ml @ 100 mls/hr 1X ONCE IV ; Start 01/12/19 at 16:15; Stop 01/12/19 at 16:44 Active Scripts Active Percocet 7.5-325 Mg Tablet (Oxycodone/Acetaminophen) 1 Each Tablet 1 Tab PO QID PRN MDD 1 FENTANYL 50mcg/hr (Fentanyl) 1 Each Patch.td72 1 Patch TP Q3DAYS MDD 1 Culturelle (Lactobacillus Rhamnosus Gg) 1 Each Cap.sprink 1 Cap PO BID 30 Days Reported Albuterol Sulfate Neb Soln (Albuterol Sulfate) 0.63 Mg/3 Ml Vial.neb 1 Vial NEB QID Gabapentin (Gabapentin) 300 Mg Capsule 300 Mg PO BID PRN Amlodipine Besylate 5 Mg Tablet 5 Mg PO DAILY Pantoprazole Sodium 40 Mg Tablet.dr 40 Mg PEG BID Donepezil Hcl 5 Mg Tablet 5 Mg PEG BID Reglan (Metoclopramide Hcl) 10 Mg Tablet 5 Mg PO QIDACHS Cyproheptadine Hcl 2 Mg/5 Ml Syrup 10 Ml PEG TID Ondansetron Odt (Ondansetron) 4 Mg Tab.rapdis 4 Mg PEG QIDPRN PRN Allergies Allergies: Coded Allergies: aspirin (Verified Allergy, Intermediate, hives, 03/16/17) I S O L A T I O N *CONTACT* (Verified Allergy, Unknown, 08/15/18) ROS General: YES: Fatigue, Malaise; No: Chills, Night Sweats, Appetite, Other PSYCHOLOGICAL ROS: No: Anxiety, Behavioral Disorder, Concentration difficultie, Decreased libido, Depression, Disorientation, Hallucinations, Hostility, Irri tablity, Memory difficulties, Mood Swings, Obsessive thoughts, Physical abuse, Sexual abuse, Sleep disturbances, Suicidal ideation, Other Eyes: No Blurry vision, No Decreased vision, No Double vision, No Dry eyes, No Excessive tearing, No Eye Pain, No Itchy Eyes, No Loss of vision, No Photophobia, No Scotomata, No Uses contacts, No Uses glasses, No Other HEENT: No: Heacaches, Visual Changes, Hearing change, Nasal congestion, Nasal discharge, Oral lesions, Sinus pain, Sore Throat, Epistaxis, Sneezing, Snoring, Tinnitus, Vertigo, Vocal changes, Other ALLERGY AND IMMUNOLOGY: No: Hives, Insect Bite Sensitivity, Itchy/Watery Eyes, Nasal Congestion, Post Nasal Drip, Seasonal Allergies, Other Hematological and Lymphatic: No: Bleeding Problems, Blood Clots, Blood Transfusions, Brusing, Night Sweats, Pallor, Swollen Lymph Nodes, Other ENDOCRINE: No: Breast Changes, Galactorrhea, Hair Pattern Changes, Hot Flashes, Malaise/lethargy, Mood Swings, Palpitations, Polydipsia/polyuria, Skin Changes, Temperature Intolerance, Unexpected Weight Changes, Other Breast: No New/Changing Breast Lumps, No Nipple changes, No Nipple discharge, No Other Respiratory: YES: Cough, Shortness of breath, SOB with excertion, Tachypnea; No: Hemoptysis, Orthopnea, Pleuritic Pain, Sputum Changes, Stridor, Wheezing, Other Cardiovascular: No Chest Pain, No Palpitations, No Orthopnea, No Paroxysmal Noc. Dyspnea, No Edema, No Lt Headedness, No Other Gastrointestinal: No Nausea, No Vomiting, No Abdominal Pain, No Diarrhea, No Constipation, No Melena, No Hematochezia, No Other Genitourinary: No Dysuria, No Frequency, No Incontinence, No Hematuria, No Retention, No Discharge, No Urgency, No Pain, No Flank Pain, No Other, No , No , No , No , No , No , No Musculoskeletal: No Gait Disturbance, No Joint Pain, No Joint Stiffness, No Joint Swelling, No Muscle Pain, No Muscular Weakness, No Pain In:, No Swelling In:, No Other Neurological: No Behavorial Changes, No Bowel/Bladder ControlChng, No Confusion, No Dizziness, No Gait Disturbance, No Headaches, No Impaired Coord/balance, No Memory Loss, No Numbness/Tingling, No Seizures, No Speech Problems, No Tremors, No Visual Changes, No Weakness, No Other Skin: No Dry Skin, No Eczema, No Hair Changes, No Lumps, No Mole Changes, No Mottling, No Nail Changes, No Pruritus, No Rash, No Skin Lesion Changes, No Other, No Acne Physical Exam General: Alert, Cooperative, mild distress HEENT: Atraumatic, PERRLA, EOMI, Mucous membr. moist/pink, Other (Trach site clean. Prominent maxillary bones, cachectic appearinig) Lungs: Other (Right sided rhonchi) Heart: S1S2, RRR Abdomen: Normal bowel sounds, Soft, No tenderness, No hepatosplenomegaly, No masses, Other (PEG site clean) Extremities: No clubbing, No cyanosis, No edema, Normal pulses, No tenderness/swelling Skin: No rashes, No breakdown, No significant lesion Neuro: Normal gait, Normal speech, Strength at 5/5 X4 ext, Normal tone, Sensation intact, Cranial nerves 3-12 NL, Reflexes 2+ Psych/Mental Status: Mental status NL, Mood NL Vitals Vitals Vital Signs Date Time Temp Pulse Resp B/P (MAP) Pulse Ox O2 Delivery O2 Flow Rate FiO2 01/12/19 14:59 89 Nasal Cannula 5.0 01/12/19 12:36 98.3 100 20 120/65 (83) 98.3 Labs Labs Laboratory Tests Test 01/12/19 14:50 White Blood Count 25.8 x10^3/uL (4.0-11.0) Red Blood Count 4.20 x10^6/uL (3.50-5.40) Hemoglobin 8.6 g/dL (12.0-15.5) Hematocrit 30.1 % (36.0-47.0) Mean Corpuscular Volume 72 fL (79-100) Mean Corpuscular Hemoglobin 21 pg (25-35) Mean Corpuscular Hemoglobin Concent 29 g/dL (31-37) Red Cell Distribution Width 19.3 % (11.5-14.5) Platelet Count 513 x10^3/uL (140-400) Neutrophils (%) (Auto) 87 % (31-73) Lymphocytes (%) (Auto) 8 % (24-48) Monocytes (%) (Auto) 5 % (0-9) Eosinophils (%) (Auto) 0 % (0-3) Basophils (%) (Auto) 1 % (0-3) Neutrophils # (Auto) 22.3 x10^3uL (1.8-7.7) Lymphocytes # (Auto) 2.0 x10^3/uL (1.0-4.8) Monocytes # (Auto) 1.3 x10^3/uL (0.0-1.1) Eosinophils # (Auto) 0.0 x10^3/uL (0.0-0.7) Basophils # (Auto) 0.1 x10^3/uL (0.0-0.2) Sodium Level 137 mmol/L (136-145) Potassium Level 4.5 mmol/L (3.5-5.1) Chloride Level 99 mmol/L (98-107) Carbon Dioxide Level 34 mmol/L (21-32) Anion Gap 4 (6-14) Blood Urea Nitrogen 17 mg/dL (7-20) Creatinine 0.8 mg/dL (0.6-1.0) Estimated GFR (Cockcroft-Gault) 84.2 Glucose Level 85 mg/dL (70-99) Calcium Level 9.2 mg/dL (8.5-10.1) Troponin I Quantitative 0.035 ng/mL (0.000-0.055) KT-Djb-S-Type Natriuretic Peptide 1551 pg/mL (0-449) Laboratory Tests Test 01/12/19 14:50 White Blood Count 25.8 x10^3/uL (4.0-11.0) Red Blood Count 4.20 x10^6/uL (3.50-5.40) Hemoglobin 8.6 g/dL (12.0-15.5) Hematocrit 30.1 % (36.0-47.0) Mean Corpuscular Volume 72 fL (79-100) Mean Corpuscular Hemoglobin 21 pg (25-35) Mean Corpuscular Hemoglobin Concent 29 g/dL (31-37) Red Cell Distribution Width 19.3 % (11.5-14.5) Platelet Count 513 x10^3/uL (140-400) Neutrophils (%) (Auto) 87 % (31-73) Lymphocytes (%) (Auto) 8 % (24-48) Monocytes (%) (Auto) 5 % (0-9) Eosinophils (%) (Auto) 0 % (0-3) Basophils (%) (Auto) 1 % (0-3) Neutrophils # (Auto) 22.3 x10^3uL (1.8-7.7) Lymphocytes # (Auto) 2.0 x10^3/uL (1.0-4.8) Monocytes # (Auto) 1.3 x10^3/uL (0.0-1.1) Eosinophils # (Auto) 0.0 x10^3/uL (0.0-0.7) Basophils # (Auto) 0.1 x10^3/uL (0.0-0.2) Sodium Level 137 mmol/L (136-145) Potassium Level 4.5 mmol/L (3.5-5.1) Chloride Level 99 mmol/L (98-107) Carbon Dioxide Level 34 mmol/L (21-32) Anion Gap 4 (6-14) Blood Urea Nitrogen 17 mg/dL (7-20) Creatinine 0.8 mg/dL (0.6-1.0) Estimated GFR (Cockcroft-Gault) 84.2 Glucose Level 85 mg/dL (70-99) Calcium Level 9.2 mg/dL (8.5-10.1) Troponin I Quantitative 0.035 ng/mL (0.000-0.055) OR-Oyj-B-Type Natriuretic Peptide 1551 pg/mL (0-449) Images Images CXR - Tracheostomy tube in place. Right-sided Port-A-Cath is unchanged. Increase in focal consolidation in the left upper lobe of the lung likely pneumonia or atelectasis with patchy diffuse airspace opacities in the left lung likely atelectasis or infiltrates. Small left pleural effusion. VTE Prophylaxis Ordered VTE Prophylaxis Devices: No VTE Pharmacological Prophylaxi: Yes Assessment/Plan Assessment/Plan A/P: HCAP - h/o Carbapenem resistant pseudomonas pneumonia - ID consult. Previously required Zerbexa. Will use empiric vancomycin and zosyn for now SIRS - meets sepsis criteria with her leukocytosis, tachycardia, RR and apparent pneumonia on CXR Acute on chronic hypercapnic respiratory failure - s/p. trach - o2 as needed, trach devendra oneill. Consult pulm Chronic dysphagia, chronically PEG on tube feeds - feeds herself via PEG Severe malnutrition - on jevity formula now with free water bolus 150cc every 4 hours Anemia of chronic disease - stable, will monitor CBC History of lung cancer and laryngeal cancer - s/p trach as above, stable Mild dementia - light during day, frequent redirection HTN - cont home meds FEN - PEG feeds PPX - Lovenox FULL CODE Inpatient for HCAP at least 2 midnights. ARINA GALLEGOS MD January 12, 2019 16:23
[2019-01-12 17:30] LABS: % BANDS 1 % (0-9); % LYMPHS 6 % (24-48); % MONOS 4 % (0-10); % SEGS 89 % (35-66); HYPOCHROMIA MOD; MICROCYTOSIS SLIGHT; NUCLEATED RBC 1; PLT ESTIMATE INCREASED (ADEQUATE); POLYCHROMASIA SLIGHT; SPHEROCYTES OCC; TOXIC GRANULATION SLIGHT; TOXIC VACUOLATION SLIGHT
[2019-01-12] MEDS ORDERED: oxyCODONE/APAP 5/325 1 TAB TABLET PO ONE (18:00)
[2019-01-12] MEDS: VANCOMYCIN PER PHARMACY MC PRN (18:38)
[2019-01-12] MEDS: fentaNYL PF VIAL 100 MCG/2 ML VIAL IV PRN ×2 (18:45→22:32)
--- NOTE | 2019-01-12 18:47 | NUR ---
Pharmacy Vancomycin Dosing Note S:Consulted to monitor and dose vancomycin started 01/12/19. O:BERNARDO DE LEON is a 78 year old F with Pneumonia . Height: 5 feet, 4 inches Weight: 46.009120 kg Foley Body Weight: 54.70 Adjusted Body Weight: 51.50 Dosing Weight: Actual Other Antibiotics: Zosyn 3.375gm IVPB q6hrs LABS: Last BUN: 17 Last Creatinine: 0.8 Creatinine Clearance: 34.7 mL/min Last WBC: 25.8 Last Procalcitonin: Tmax (past 24 hours): 98.3 Microbiology: I/O: Drug Levels: Last level: on at Last dose given 01/12/19 at 1818 Vancomycin Dosing: Loading Dose: 1250 mg x1 Dosing Weight: Actual Target Trough: 15-20 A: Based on weight and est. CrCl: P: 1. Start Vancomycin 1250mg, followed by Vancomycin 750 mg IV q24h. 2. Follow up Trough level on 01/14/19 at 1730. 3. Pharmacy will continue to monitor, follow and adjust therapy as needed. Shant [place] [facility], 01/12/19 [id number]
[2019-01-12 19:45] VITALS: BP 161/75
[2019-01-12] MEDS ORDERED: ONDANSETRON ODT 4 MG TAB.RAPDIS. PEG PRN (19:45)
[2019-01-12] MEDS: ENOXAPARIN 40 MG/0.4 ML SYRINGE. SQ SCH (20:43)
[2019-01-12] MEDS: METOCLOPRAMIDE 5 MG TABLET. PO SCH (20:44)
[2019-01-12] MEDS: GABAPENTIN 300 MG CAPSULE. PO SCH (20:44)
[2019-01-12] MEDS: LACTOBACILLUS RHAMNOSUS GG 1 CAPSULE. PO SCH (20:44)
[2019-01-12] MEDS: CYPROHEPTADINE 4 MG TABLET. PEG SCH (20:45)
[2019-01-12] MEDS: fentaNYL 50MCG/HR PATCH 1 PATCH PATCH.TD72 TD SCH (20:45)
[2019-01-12] MEDS ORDERED: NON FORMULARY ITEM (Albuterol Sulfate (Albuterol Sulfate Neb Soln) 1 VIAL) NEB SCH (21:00)
[2019-01-12] MEDS: ALBUTEROL SULFATE 2.5 MG/3 ML NEBU. NEB SCH (21:32)
[2019-01-12 23:23] VITALS: BP 145/58
[2019-01-13] MEDS: PIPERACILLIN/TAZOBACTAM 3.375 GM in IV NORMAL SALINE 50ML 50 ML IV SCH ×2 (00:24→06:13)
[2019-01-13 03:51] VITALS: BP 154/69
[2019-01-13 07:10] VITALS: BP 165/72
[2019-01-13] MEDS ORDERED: PANTOPRAZOLE IV PUSH 40 MG VIAL. IVP SCH (07:30)
[2019-01-13] MEDS: ALBUTEROL SULFATE 2.5 MG/3 ML NEBU. NEB SCH ×4 (08:09→20:00)
[2019-01-13] MEDS: oxyCODONE/APAP 7.5/325 1 TAB TABLET PO PRN ×2 (09:28→21:19)
[2019-01-13] MEDS: METOCLOPRAMIDE 5 MG TABLET. PO SCH ×4 (09:28→21:18)
[2019-01-13] MEDS: GABAPENTIN 300 MG CAPSULE. PO SCH ×2 (09:28→21:18)
[2019-01-13] MEDS: LANSOPRAZOLE 30 MG TAB.RAP.DR PEG SCH (09:28)
[2019-01-13] MEDS: LACTOBACILLUS RHAMNOSUS GG 1 CAPSULE. PO SCH ×2 (09:28→21:18)
[2019-01-13] MEDS: CYPROHEPTADINE 4 MG TABLET. PEG SCH ×3 (09:29→21:18)
[2019-01-13] MEDS: DONEPEZIL HCL 5 MG TABLET. PEG SCH ×2 (09:29→21:18)
[2019-01-13] MEDS: amLODIPine BESYLATE 5 MG TABLET PO SCH (09:29)
[2019-01-13 11:10] VITALS: BP 140/64
--- NOTE | 2019-01-13 11:32 | PDOC ---
Infectious Disease Note Vital Sign Vital Signs Vital Signs Date Time Temp Pulse Resp B/P (MAP) Pulse Ox O2 Delivery O2 Flow Rate FiO2 01/13/19 09:29 107 165/72 01/13/19 09:28 97 3.0 01/13/19 08:09 Tracheal Collar 01/13/19 07:10 100.0 20 100.0 Labs Lab Laboratory Tests Test 01/12/19 14:50 01/12/19 16:45 01/13/19 03:50 White Blood Count 25.8 x10^3/uL (4.0-11.0) Red Blood Count 4.20 x10^6/uL (3.50-5.40) Hemoglobin 8.6 g/dL (12.0-15.5) Hematocrit 30.1 % (36.0-47.0) Mean Corpuscular Volume 72 fL (79-100) Mean Corpuscular Hemoglobin 21 pg (25-35) Mean Corpuscular Hemoglobin Concent 29 g/dL (31-37) Red Cell Distribution Width 19.3 % (11.5-14.5) Platelet Count 513 x10^3/uL (140-400) Neutrophils (%) (Auto) 87 % (31-73) Lymphocytes (%) (Auto) 8 % (24-48) Monocytes (%) (Auto) 5 % (0-9) Eosinophils (%) (Auto) 0 % (0-3) Basophils (%) (Auto) 1 % (0-3) Neutrophils # (Auto) 22.3 x10^3uL (1.8-7.7) Lymphocytes # (Auto) 2.0 x10^3/uL (1.0-4.8) Monocytes # (Auto) 1.3 x10^3/uL (0.0-1.1) Eosinophils # (Auto) 0.0 x10^3/uL (0.0-0.7) Basophils # (Auto) 0.1 x10^3/uL (0.0-0.2) Segmented Neutrophils % 89 % (35-66) Band Neutrophils % 1 % (0-9) Lymphocytes % 6 % (24-48) Monocytes % 4 % (0-10) Nucleated Red Blood Cells 1 Toxic Granulation Slight Toxic Vacuolation Slight Platelet Estimate Increased (ADEQUATE) Polychromasia Slight Hypochromasia Mod Microcytosis Slight Spherocytes Occ Sodium Level 137 mmol/L (136-145) Potassium Level 4.5 mmol/L (3.5-5.1) Chloride Level 99 mmol/L (98-107) Carbon Dioxide Level 34 mmol/L (21-32) Anion Gap 4 (6-14) Blood Urea Nitrogen 17 mg/dL (7-20) Creatinine 0.8 mg/dL (0.6-1.0) Estimated GFR (Cockcroft-Gault) 84.2 Glucose Level 85 mg/dL (70-99) Calcium Level 9.2 mg/dL (8.5-10.1) Troponin I Quantitative 0.035 ng/mL (0.000-0.055) LP-Rzr-I-Type Natriuretic Peptide 1551 pg/mL (0-449) Lactic Acid Level < 0.3 mmol/L (0.4-2.0) Procalcitonin 0.26 ng/mL (0.00-0.10) Objective Assessment Fever Leukocytosis Hypoxia Pneumonia MDR PSA Plan Plan of Care vanc and zerbexa check cultures supportive care ASTER MATOS MD January 13, 2019 11:32
--- NOTE | 2019-01-13 12:39 | PDOC ---
PROGRESS NOTES Chief Complaint Chief Complaint HCAP SIRS Acute on chronic hypercapnic respiratory failure Chronic dysphagia, chronically PEG on tube feeds Hx of lung cancer and laryngeal cancer - s/p trach, stable HTN History of Present Illness History of Present Illness Patient seen and examined. Pt resting comfortably in NAD Discussed with Nurse Vitals Vitals Vital Signs Date Time Temp Pulse Resp B/P (MAP) Pulse Ox O2 Delivery O2 Flow Rate FiO2 01/13/19 12:15 97 Tracheal Collar 01/13/19 11:52 3.0 01/13/19 11:10 98.7 105 18 140/64 (89) 98.7 Physical Exam General: Alert, Cooperative, No acute distress Lungs: Crackles Abdomen: Normal bowel sounds, Soft, No tenderness, No hepatosplenomegaly, No masses, Other (PEG site clean) Extremities: No clubbing, No cyanosis, No edema, Normal pulses, No tenderness/swelling Skin: No rashes, No breakdown, No significant lesion Labs LABS Laboratory Tests Test 01/12/19 14:50 01/12/19 16:45 01/13/19 03:50 White Blood Count 25.8 x10^3/uL (4.0-11.0) Red Blood Count 4.20 x10^6/uL (3.50-5.40) Hemoglobin 8.6 g/dL (12.0-15.5) Hematocrit 30.1 % (36.0-47.0) Mean Corpuscular Volume 72 fL (79-100) Mean Corpuscular Hemoglobin 21 pg (25-35) Mean Corpuscular Hemoglobin Concent 29 g/dL (31-37) Red Cell Distribution Width 19.3 % (11.5-14.5) Platelet Count 513 x10^3/uL (140-400) Neutrophils (%) (Auto) 87 % (31-73) Lymphocytes (%) (Auto) 8 % (24-48) Monocytes (%) (Auto) 5 % (0-9) Eosinophils (%) (Auto) 0 % (0-3) Basophils (%) (Auto) 1 % (0-3) Neutrophils # (Auto) 22.3 x10^3uL (1.8-7.7) Lymphocytes # (Auto) 2.0 x10^3/uL (1.0-4.8) Monocytes # (Auto) 1.3 x10^3/uL (0.0-1.1) Eosinophils # (Auto) 0.0 x10^3/uL (0.0-0.7) Basophils # (Auto) 0.1 x10^3/uL (0.0-0.2) Segmented Neutrophils % 89 % (35-66) Band Neutrophils % 1 % (0-9) Lymphocytes % 6 % (24-48) Monocytes % 4 % (0-10) Nucleated Red Blood Cells 1 Toxic Granulation Slight Toxic Vacuolation Slight Platelet Estimate Increased (ADEQUATE) Polychromasia Slight Hypochromasia Mod Microcytosis Slight Spherocytes Occ Sodium Level 137 mmol/L (136-145) Potassium Level 4.5 mmol/L (3.5-5.1) Chloride Level 99 mmol/L (98-107) Carbon Dioxide Level 34 mmol/L (21-32) Anion Gap 4 (6-14) Blood Urea Nitrogen 17 mg/dL (7-20) Creatinine 0.8 mg/dL (0.6-1.0) Estimated GFR (Cockcroft-Gault) 84.2 Glucose Level 85 mg/dL (70-99) Calcium Level 9.2 mg/dL (8.5-10.1) Troponin I Quantitative 0.035 ng/mL (0.000-0.055) EF-Uoj-O-Type Natriuretic Peptide 1551 pg/mL (0-449) Lactic Acid Level < 0.3 mmol/L (0.4-2.0) Procalcitonin 0.26 ng/mL (0.00-0.10) Review of Systems Review of Systems ROS unable to obtain as patient was asleep during examination Assessment and Plan Assessmemt and Plan Problems Medical Problems: (1) Dyspnea Status: Acute Assessment: HCAP SIRS Acute on chronic hypercapnic respiratory failure Chronic dysphagia, chronically PEG on tube feeds Hx of lung cancer and laryngeal cancer - s/p trach, stable HTN Plan: IV Vanc and Zerbexa Duonebs Trach care 02 prn via Trach PT/OT Labs DVT PPx: Lovenox Pulm and ID consulted Home meds Comment Review of Relevant I have reviewed the following items miko (where applicable) has been applied. Labs Laboratory Tests Test 01/12/19 14:50 01/12/19 16:45 01/13/19 03:50 White Blood Count 25.8 x10^3/uL (4.0-11.0) Red Blood Count 4.20 x10^6/uL (3.50-5.40) Hemoglobin 8.6 g/dL (12.0-15.5) Hematocrit 30.1 % (36.0-47.0) Mean Corpuscular Volume 72 fL (79-100) Mean Corpuscular Hemoglobin 21 pg (25-35) Mean Corpuscular Hemoglobin Concent 29 g/dL (31-37) Red Cell Distribution Width 19.3 % (11.5-14.5) Platelet Count 513 x10^3/uL (140-400) Neutrophils (%) (Auto) 87 % (31-73) Lymphocytes (%) (Auto) 8 % (24-48) Monocytes (%) (Auto) 5 % (0-9) Eosinophils (%) (Auto) 0 % (0-3) Basophils (%) (Auto) 1 % (0-3) Neutrophils # (Auto) 22.3 x10^3uL (1.8-7.7) Lymphocytes # (Auto) 2.0 x10^3/uL (1.0-4.8) Monocytes # (Auto) 1.3 x10^3/uL (0.0-1.1) Eosinophils # (Auto) 0.0 x10^3/uL (0.0-0.7) Basophils # (Auto) 0.1 x10^3/uL (0.0-0.2) Segmented Neutrophils % 89 % (35-66) Band Neutrophils % 1 % (0-9) Lymphocytes % 6 % (24-48) Monocytes % 4 % (0-10) Nucleated Red Blood Cells 1 Toxic Granulation Slight Toxic Vacuolation Slight Platelet Estimate Increased (ADEQUATE) Polychromasia Slight Hypochromasia Mod Microcytosis Slight Spherocytes Occ Sodium Level 137 mmol/L (136-145) Potassium Level 4.5 mmol/L (3.5-5.1) Chloride Level 99 mmol/L (98-107) Carbon Dioxide Level 34 mmol/L (21-32) Anion Gap 4 (6-14) Blood Urea Nitrogen 17 mg/dL (7-20) Creatinine 0.8 mg/dL (0.6-1.0) Estimated GFR (Cockcroft-Gault) 84.2 Glucose Level 85 mg/dL (70-99) Calcium Level 9.2 mg/dL (8.5-10.1) Troponin I Quantitative 0.035 ng/mL (0.000-0.055) CX-Ept-C-Type Natriuretic Peptide 1551 pg/mL (0-449) Lactic Acid Level < 0.3 mmol/L (0.4-2.0) Procalcitonin 0.26 ng/mL (0.00-0.10) Laboratory Tests Test 01/12/19 14:50 01/12/19 16:45 01/13/19 03:50 White Blood Count 25.8 x10^3/uL (4.0-11.0) Red Blood Count 4.20 x10^6/uL (3.50-5.40) Hemoglobin 8.6 g/dL (12.0-15.5) Hematocrit 30.1 % (36.0-47.0) Mean Corpuscular Volume 72 fL (79-100) Mean Corpuscular Hemoglobin 21 pg (25-35) Mean Corpuscular Hemoglobin Concent 29 g/dL (31-37) Red Cell Distribution Width 19.3 % (11.5-14.5) Platelet Count 513 x10^3/uL (140-400) Neutrophils (%) (Auto) 87 % (31-73) Lymphocytes (%) (Auto) 8 % (24-48) Monocytes (%) (Auto) 5 % (0-9) Eosinophils (%) (Auto) 0 % (0-3) Basophils (%) (Auto) 1 % (0-3) Neutrophils # (Auto) 22.3 x10^3uL (1.8-7.7) Lymphocytes # (Auto) 2.0 x10^3/uL (1.0-4.8) Monocytes # (Auto) 1.3 x10^3/uL (0.0-1.1) Eosinophils # (Auto) 0.0 x10^3/uL (0.0-0.7) Basophils # (Auto) 0.1 x10^3/uL (0.0-0.2) Segmented Neutrophils % 89 % (35-66) Band Neutrophils % 1 % (0-9) Lymphocytes % 6 % (24-48) Monocytes % 4 % (0-10) Nucleated Red Blood Cells 1 Toxic Granulation Slight Toxic Vacuolation Slight Platelet Estimate Increased (ADEQUATE) Polychromasia Slight Hypochromasia Mod Microcytosis Slight Spherocytes Occ Sodium Level 137 mmol/L (136-145) Potassium Level 4.5 mmol/L (3.5-5.1) Chloride Level 99 mmol/L (98-107) Carbon Dioxide Level 34 mmol/L (21-32) Anion Gap 4 (6-14) Blood Urea Nitrogen 17 mg/dL (7-20) Creatinine 0.8 mg/dL (0.6-1.0) Estimated GFR (Cockcroft-Gault) 84.2 Glucose Level 85 mg/dL (70-99) Calcium Level 9.2 mg/dL (8.5-10.1) Troponin I Quantitative 0.035 ng/mL (0.000-0.055) IE-Nbo-Q-Type Natriuretic Peptide 1551 pg/mL (0-449) Lactic Acid Level < 0.3 mmol/L (0.4-2.0) Procalcitonin 0.26 ng/mL (0.00-0.10) Medications Current Medications Albuterol/ Ipratropium (Duoneb) 3 ml 1X ONCE NEB Last administered on 01/12/19at 14:56; Start 01/12/19 at 14:30; Stop 01/12/19 at 14:35; Status DC Piperacillin Sod/ Tazobactam Sod (Zosyn Per Pharmacy) 1 each PRN DAILY PRN MC SEE COMMENTS; Start 01/12/19 at 16:15 Vancomycin HCl (Vanco Per Pharmacy) 1 each PRN DAILY PRN MC SEE COMMENTS Last administered on 01/12/19at 18:38; Start 01/12/19 at 16:15 Vancomycin HCl 1.25 gm/Sodium Chloride 250 ml @ 166.667 mls/hr 1X ONCE IV Last administered on 01/12/19at 18:18; Start 01/12/19 at 16:15; Stop 01/12/19 at 17:44; Status DC Piperacillin Sod/ Tazobactam Sod 3.375 gm/Sodium Chloride 50 ml @ 100 mls/hr 1X ONCE IV Last administered on 01/12/19at 17:28; Start 01/12/19 at 16:15; Stop 01/12/19 at 16:44; Status DC Oxycodone/ Acetaminophen (Percocet 5/325) 1 tab 1X ONCE PO Last administered on 01/12/19at 18:18; Start 01/12/19 at 18:00; Stop 01/12/19 at 18:08; Status DC Fentanyl Citrate (Fentanyl 2ml Vial) 25 mcg PRN Q2HR PRN IV PAIN Last administered on 01/12/19at 22:32; Start 01/12/19 at 18:30 Piperacillin Sod/ Tazobactam Sod 3.375 gm/Sodium Chloride 50 ml @ 100 mls/hr Q6HRS IV Last administered on 01/13/19at 06:13; Start 01/13/19 at 00:00; Stop 01/13/19 at 11:26; Status DC Vancomycin HCl 750 mg/Sodium Chloride 250 ml @ 250 mls/hr Q24H IV ; Start 01/13/19 at 18:00 Vancomycin HCl (Vancomycin Trough Level) 1 each 1X ONCE MC ; Start 01/14/19 at 17:30; Stop 01/14/19 at 17:31 Amlodipine Besylate (Norvasc) 5 mg DAILY PO Last administered on 01/13/19at 09:29; Start 01/13/19 at 09:00 Fentanyl (Duragesic 50mcg/ Hr Patch) 1 patch Q3DAYS TD ; Start 01/15/19 at 09:00; Status UNV Gabapentin (Neurontin) 300 mg BID PO Last administered on 01/13/19at 09:28; Start 01/12/19 at 21:00 Lactobacillus Rhamnosus (Culturelle) 1 cap BID PO Last administered on 01/13/19 09:28; Start 01/12/19 at 21:00 Metoclopramide HCl (Reglan) 5 mg QIDACHS PO Last administered on 01/13/19 09:28; Start 01/12/19 at 21:00 Ondansetron HCl (Zofran Odt) 4 mg PRN Q6HRS PRN PEG NAUSEA/VOMITING; Start 01/12/19 at 19:45 Oxycodone/ Acetaminophen (Percocet 7.5/ 325) 1 tab PRN QID PRN PO MODERATE TO SEVERE PAIN Last administered on 01/13/19 09:28; Start 01/12/19 at 19:45 Non-Formulary Medication (Albuterol Sulfate (Albuterol Sulfate Neb Soln)) 1 vial QID NEB ; Start 01/12/19 at 21:00; Status UNV Cyproheptadine HCl (Periactin) 4 mg TID PEG Last administered on 01/13/19at 09:29; Start 01/12/19 at 21:00 Donepezil HCl (Aricept) 5 mg BID PEG Last administered on 01/13/19at 09:29; Start 01/13/19 at 09:00 Pantoprazole Sodium (PROTONIX VIAL for IV PUSH) 40 mg DAILYAC IVP ; Start 01/13/19 at 07:30; Status UNV Enoxaparin Sodium (Lovenox 40mg Syringe) 40 mg Q24H SQ Last administered on 01/12at 20:43; Start 01/12/19 at 20:00 Albuterol Sulfate (Ventolin Neb Soln) 2.5 mg RTQID NEB Last administered on 01/13/19at 12:14; Start 01/12/19 at 20:00 Lansoprazole (Prevacid) 30 mg DAILYAC PEG Last administered on 01/13/19at 09:28; Start 01/13/19 at 07:30 Fentanyl (Duragesic 50mcg/ Hr Patch) 1 patch Q3DAYS TD Last administered on 01/12/19at 20:45; Start 01/12/19 at 21:00 Ceftolozane/ Tazobactam 1500 mg/Sodium Chloride 100 ml @ 100 mls/hr Q8HRS IV ; Start 01/13/19 at 14:00 Active Scripts Active Percocet 7.5-325 Mg Tablet (Oxycodone/Acetaminophen) 1 Each Tablet 1 Tab PO QID PRN MDD 1 FENTANYL 50mcg/hr (Fentanyl) 1 Each Patch.td72 1 Patch TP Q3DAYS MDD 1 Culturelle (Lactobacillus Rhamnosus Gg) 1 Each Cap.sprink 1 Cap PO BID 30 Days Reported Albuterol Sulfate Neb Soln (Albuterol Sulfate) 0.63 Mg/3 Ml Vial.neb 1 Vial NEB QID Gabapentin (Gabapentin) 300 Mg Capsule 300 Mg PO BID PRN Amlodipine Besylate 5 Mg Tablet 5 Mg PO DAILY Pantoprazole Sodium 40 Mg Tablet.dr 40 Mg PEG BID Donepezil Hcl 5 Mg Tablet 5 Mg PEG BID Reglan (Metoclopramide Hcl) 10 Mg Tablet 5 Mg PO QIDACHS Cyproheptadine Hcl 2 Mg/5 Ml Syrup 10 Ml PEG TID Ondansetron Odt (Ondansetron) 4 Mg Tab.rapdis 4 Mg PEG QIDPRN PRN Vitals/I & O Vital Sign - Last 24 Hours 01/12/19 01/12/19 01/12/19 01/12/19 12:36 13:30 14:00 14:30 Temp 98.3 98.3 Pulse 100 108 94 96 Resp 20 22 24 B/P (MAP) 120/65 (83) 139/74 (95) 139/65 (89) 138/65 (89) Pulse Ox 99 96 94 90 O2 Delivery Tracheal Collar Tracheal Collar Tracheal Collar Tracheal Collar O2 Flow Rate 3.0 3.0 3.0 3.0 01/12/19 01/12/19 01/12/19 01/12/19 14:59 15:07 15:27 15:47 Pulse 98 102 98 B/P (MAP) 144/72 (96) 159/76 (103) 154/76 (102) Pulse Ox 89 91 94 94 O2 Delivery Nasal Cannula Tracheal Collar Tracheal Collar Tracheal Collar O2 Flow Rate 5.0 3.0 3.0 3.0 01/12/19 01/12/19 01/12/19 01/12/19 16:07 16:47 17:07 17:27 Pulse 98 100 98 96 B/P (MAP) 146/69 (94) 164/76 (105) 152/72 (98) 148/69 (95) Pulse Ox 100 96 98 97 O2 Delivery Tracheal Collar Tracheal Collar Tracheal Collar Tracheal Collar O2 Flow Rate 3.0 3.0 3.0 3.0 01/12/19 01/12/19 01/12/19 01/12/19 17:47 18:07 18:27 18:47 Pulse 112 114 108 104 B/P (MAP) 167/65 (99) 178/76 (110) 162/74 (103) 153/69 (97) Pulse Ox 90 90 95 97 O2 Delivery Tracheal Collar Tracheal Collar Tracheal Collar Tracheal Collar O2 Flow Rate 3.0 3.0 3.0 3.0 01/12/19 01/12/19 01/12/19 01/12/19 19:07 19:27 19:45 20:00 Temp 98.9 98.9 Pulse 102 104 105 Resp 16 B/P (MAP) 153/72 (99) 157/70 (99) 161/75 (103) Pulse Ox 96 97 92 O2 Delivery Tracheal Collar Tracheal Collar Tracheal Collar Trach Collar O2 Flow Rate 3.0 3.0 3.0 3.0 01/12/19 01/12/19 01/12/19 01/12/19 20:45 21:32 22:32 23:05 Resp 18 Pulse Ox 92 84 O2 Delivery Tracheal Collar Tracheal Collar Tracheal Collar O2 Flow Rate 3.0 6.0 3.0 01/12/19 01/13/19 01/13/19 01/13/19 23:23 03:51 07:10 08:00 Temp 99.1 99.5 100.0 99.1 99.5 100.0 Pulse 113 104 107 Resp 16 16 20 B/P (MAP) 145/58 (87) 154/69 (97) 165/72 (103) Pulse Ox 93 96 93 O2 Delivery Tracheal Collar Tracheal Collar Tracheal Collar Trach Collar O2 Flow Rate 3.0 01/13/19 01/13/19 01/13/19 01/13/19 08:09 09:28 09:29 11:10 Temp 98.7 98.7 Pulse 107 105 Resp 18 B/P (MAP) 165/72 140/64 (89) Pulse Ox 97 97 93 O2 Delivery Tracheal Collar Tracheal Collar O2 Flow Rate 3.0 01/13/19 01/13/19 11:52 12:15 Pulse Ox 93 97 O2 Delivery Tracheal Collar O2 Flow Rate 3.0 Intake and Output 01/12/19 01/12/19 01/13/19 14:59 22:59 06:59 Intake Total 50 ml 0 ml Balance 50 ml 0 ml CASTLE,NIAL K III DO January 13, 2019 12:39
--- NOTE | 2019-01-13 12:56 | CONS ---
DATE OF CONSULTATION: PULMONARY CONSULTATION ATTENDING PHYSICIAN: Ramone Pedraza MD. REASON FOR CONSULTATION: Pneumonia. HISTORY OF PRESENT ILLNESS: The patient is a 78-year-old female who has history of chronic hypoxic and hypercapnic respiratory failure, status post chronic tracheostomy. She has a history of lung cancer and laryngeal cancer, history of PEG tube and chronic tracheostomy and chronic dysphagia. She has spent much of her last 6 months in the hospital than at home. 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 The patient was brought into the hospital after she was found to be hypoxic. She was not wearing her oxygen via tracheostomy. She was supposed to be on 5 liters of oxygen. The patient had some cough. No shortness of breath. She is also complaining of abdominal pain. She has been constipated as well. Her sister suctioned some thick secretions. Her chest x-ray revealed consolidation in the left upper lobe, which is new. PAST MEDICAL HISTORY: Significant for hypertension, history of COPD, history of chronic respiratory failure, details of past medical history regarding cancer as previously. PAST SURGICAL HISTORY: As discussed previously, tracheostomy and PEG tube. ALLERGIES: ASPIRIN. REVIEW OF SYSTEMS: Could not be obtained from the patient, but she nods yes and no to questions. MEDICATIONS: Reviewed as listed in the MRAD including vancomycin and ceftolozane and piperacillin. SOCIAL HISTORY: She has history of tobacco use in the past. PHYSICAL EXAMINATION: VITAL SIGNS: Reviewed. Blood pressure is stable. T-max of 100. NECK: Supple. Trach in place. LUNGS: With diminished breath sounds. CARDIOVASCULAR: Regular rate and rhythm. ABDOMEN: Soft, nontender. PEG in place. EXTREMITIES: With no pitting edema. LABORATORY DATA: Reviewed. White cell count 25.8, hemoglobin 8.6 and platelets are 513. BUN is 17, creatinine 0.8. IMPRESSION: 1. Acute on chronic hypoxic respiratory failure secondary to new left upper lobe pneumonia. 2. Abnormal chest x-ray consistent with left upper lobe consolidation. 3. 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 4. Dysphagia. 5. History of lung cancer and laryngeal cancer, status post tracheostomy and chronic hypoxic respiratory failure. Many of her past admission with hypoxia are associated with having no oxygen through the trach. RECOMMENDATIONS: 1. Continue broad-spectrum antibiotics as recommended by Infectious Disease. 2. Follow sputum cultures. 3. Follow white cell count. She had initial marked leukocytosis. 4. Continue bronchodilators. 5. P.r.n. trach suction. 6. Follow up chest x-ray in 3-4 days. 7. Discuss with RN. MARY LANIER MD DR: AINSLEY/sena JOB#: [id number] / [id number]
[2019-01-13] MEDS: POLYETHYLENE GLYCOL 3350 17 GM PACKET. GT PRN (14:29)
[2019-01-13] MEDS: CEFTOLOZANE/TAZOBACTAM 1,500 MG in IV NORMAL SALINE 100ML 100 ML IV SCH ×2 (14:30→22:22)
[2019-01-13] MEDS: VANCOMYCIN PER PHARMACY MC PRN (14:47)
[2019-01-13 15:00] VITALS: BP 142/62
[2019-01-13] MEDS ORDERED: VANCOMYCIN 750 MG in IV NORMAL SALINE 250ML 250 ML IV SCH (18:00)
[2019-01-13] MEDS: ONDANSETRON PF 4 MG/2 ML VIAL. IV PRN (18:35)
[2019-01-13 19:00] VITALS: BP 167/77
[2019-01-13] MEDS: fentaNYL PF VIAL 100 MCG/2 ML VIAL IV PRN (20:06)
[2019-01-13] MEDS: ENOXAPARIN 40 MG/0.4 ML SYRINGE. SQ SCH (21:19)
[2019-01-13 23:00] VITALS: BP 125/60
[2019-01-14 03:00] VITALS: BP 156/78
--- NOTE | 2019-01-14 03:29 | CONS ---
DATE OF CONSULTATION: 01/13/2019 REQUESTING PHYSICIAN: Dr. Pedraza. REASON FOR CONSULTATION: Multidrug-resistant pseudomonas pneumonia. HISTORY OF PRESENT ILLNESS: This is a 78-year-old -Thai female with multiple medical problems, but more so bad lungs from prior surgery, cancer, COPD, etc. The patient has multidrug resistant pseudomonas infection in the past. The patient comes in back with shortness of breath, some abdominal pain, fever, and hypoxia. The patient is noted to have infiltrates. The patient was noted to have leukocytosis and fever. The patient has been put on vancomycin and Zosyn and consult has been requested. The patient denies any vomiting. Denies any chest pains. Denies any urinary symptoms or bowel symptoms. PAST MEDICAL HISTORY: Positive for COPD. The patient has anemia, history of lung cancer, laryngeal cancer status post radiation, chronic dysphagia. The patient has CRE pseudomonas infection and a PEG tube. SOCIAL HISTORY: Negative for smoking, alcohol, or illicit drug use. ALLERGIES: No known drug allergies. CURRENT MEDICATIONS: Reviewed. REVIEW OF SYSTEMS: As per HPI, all other systems reviewed are negative. PHYSICAL EXAMINATION: GENERAL: Alert, oriented female, not in any distress. VITAL SIGNS: Stable with a T-max 100.0. HEENT: NAD. NECK: Supple, no JVP, no lymphadenopathy. LUNGS: Clear. HEART: S1, S2 regular. No gallop or murmur. ABDOMEN: Soft, nontender, no organomegaly. EXTREMITIES: No edema or cyanosis. SKIN: Unremarkable. NEUROLOGIC: The patient is neurologically intact. LABORATORY DATA: White count is 25.8, hemoglobin 8.6, platelets are 513,000. BUN and creatinine is normal. Her 12/08/2018 bronchial cultures showed Pseudomonas, which was ESBL producing as well as multidrug resistant. Chest x-ray showed increased focal consolidation in the left upper lobe. IMPRESSION: 1. Fever. 2. Leukocytosis. 3. Pneumonia. 4. History of lung cancer. 5. History of laryngeal cancer. 6. Hypoxemia. RECOMMENDATION: Continue vancomycin, discontinue Zosyn, start Zerbaxa. Supportive care and we will follow the cultures and continue to adjust. Thank you very much, Dr. Pedraza, for giving me the opportunity to participate in this patient's care. ASTER MATOS MD DR: BAUTISTA/sena JOB#: [id number] / [id number]
[2019-01-14 05:35] LABS: CALCIUM 8.9 mg/dL (8.5-10.1); CREATININE 0.7 mg/dL (0.6-1.0); GFR 98.2; POTASSIUM 4.3 mmol/L (3.5-5.1)
[2019-01-14] MEDS: fentaNYL PF VIAL 100 MCG/2 ML VIAL IV PRN ×2 (05:37→22:22)
[2019-01-14 05:39] LABS: BASO # 0.1 x10^3/uL (0.0-0.2); BASO % 0 % (0-3); EOS # 0.1 x10^3/uL (0.0-0.7); EOS % 1 % (0-3); HEMATOCRIT 27.2 % (36.0-47.0); LYMPH # 1.7 x10^3/uL (1.0-4.8); LYMPH % 10 % (24-48); MEAN CORPUSCULAR HEMOGLOBIN 21 pg (25-35); MEAN CORPUSCULAR HGB CONC 30 g/dL (31-37); MEAN CORPUSCULAR VOLUME 73 fL (79-100); MONO # 0.9 x10^3/uL (0.0-1.1); MONO % 6 % (0-9); NEUT # 13.7 x10^3uL (1.8-7.7); NEUT % 83 % (31-73); PLATELET COUNT 466 x10^3/uL (140-400); RED BLOOD COUNT 3.75 x10^6/uL (3.50-5.40); RED CELL DISTRIBUTION WIDTH 18.8 % (11.5-14.5); WHITE BLOOD COUNT 16.5 x10^3/uL (4.0-11.0)
[2019-01-14] MEDS: CEFTOLOZANE/TAZOBACTAM 1,500 MG in IV NORMAL SALINE 100ML 100 ML IV SCH ×3 (06:39→22:21)
[2019-01-14] MEDS: LANSOPRAZOLE 30 MG TAB.RAP.DR PEG SCH (07:30)
[2019-01-14 07:40] VITALS: BP 170/76
[2019-01-14] MEDS: METOCLOPRAMIDE 5 MG TABLET. PO SCH ×4 (07:59→22:21)
[2019-01-14] MEDS: CYPROHEPTADINE 4 MG TABLET. PEG SCH ×3 (08:00→22:20)
[2019-01-14] MEDS: GABAPENTIN 300 MG CAPSULE. PO SCH ×2 (08:01→22:20)
[2019-01-14] MEDS: DONEPEZIL HCL 5 MG TABLET. PEG SCH ×2 (08:01→22:20)
[2019-01-14] MEDS: LACTOBACILLUS RHAMNOSUS GG 1 CAPSULE. PO SCH ×2 (08:01→22:20)
[2019-01-14] MEDS: amLODIPine BESYLATE 5 MG TABLET PO SCH (08:02)
[2019-01-14] MEDS: ALBUTEROL SULFATE 2.5 MG/3 ML NEBU. NEB SCH ×4 (08:25→20:49)
[2019-01-14] MEDS: oxyCODONE/APAP 7.5/325 1 TAB TABLET PO PRN ×3 (09:57→23:52)
--- NOTE | 2019-01-14 10:53 | PDOC ---
PULMONARY PROGRESS NOTES Subjective HAD EMESIS TODAY MODERATE TRACH SECRETIONS Vitals Vital Signs Date Time Temp Pulse Resp B/P (MAP) Pulse Ox O2 Delivery O2 Flow Rate FiO2 01/14/19 09:57 95 10.0 01/14/19 08:15 Tracheal Collar 01/14/19 08:02 104 170/76 01/14/19 07:40 98.2 16 98.2 General: Alert, No acute distress Lungs: Other (decrease bases) Cardiovascular: S1, S2 Abdomen: Soft, Non-tender Extremities: No Edema Labs Laboratory Tests Test 01/12/19 14:50 01/12/19 16:45 01/13/19 03:50 01/14/19 05:03 White Blood Count 25.8 x10^3/uL (4.0-11.0) 16.5 x10^3/uL (4.0-11.0) Red Blood Count 4.20 x10^6/uL (3.50-5.40) 3.75 x10^6/uL (3.50-5.40) Hemoglobin 8.6 g/dL (12.0-15.5) 8.0 g/dL (12.0-15.5) Hematocrit 30.1 % (36.0-47.0) 27.2 % (36.0-47.0) Mean Corpuscular Volume 72 fL (79-100) 73 fL (79-100) Mean Corpuscular Hemoglobin 21 pg (25-35) 21 pg (25-35) Mean Corpuscular Hemoglobin Concent 29 g/dL (31-37) 30 g/dL (31-37) Red Cell Distribution Width 19.3 % (11.5-14.5) 18.8 % (11.5-14.5) Platelet Count 513 x10^3/uL (140-400) 466 x10^3/uL (140-400) Neutrophils (%) (Auto) 87 % (31-73) 83 % (31-73) Lymphocytes (%) (Auto) 8 % (24-48) 10 % (24-48) Monocytes (%) (Auto) 5 % (0-9) 6 % (0-9) Eosinophils (%) (Auto) 0 % (0-3) 1 % (0-3) Basophils (%) (Auto) 1 % (0-3) 0 % (0-3) Neutrophils # (Auto) 22.3 x10^3uL (1.8-7.7) 13.7 x10^3uL (1.8-7.7) Lymphocytes # (Auto) 2.0 x10^3/uL (1.0-4.8) 1.7 x10^3/uL (1.0-4.8) Monocytes # (Auto) 1.3 x10^3/uL (0.0-1.1) 0.9 x10^3/uL (0.0-1.1) Eosinophils # (Auto) 0.0 x10^3/uL (0.0-0.7) 0.1 x10^3/uL (0.0-0.7) Basophils # (Auto) 0.1 x10^3/uL (0.0-0.2) 0.1 x10^3/uL (0.0-0.2) Segmented Neutrophils % 89 % (35-66) Band Neutrophils % 1 % (0-9) Lymphocytes % 6 % (24-48) Monocytes % 4 % (0-10) Nucleated Red Blood Cells 1 Toxic Granulation Slight Toxic Vacuolation Slight Platelet Estimate Increased (ADEQUATE) Polychromasia Slight Hypochromasia Mod Microcytosis Slight Spherocytes Occ Sodium Level 137 mmol/L (136-145) 139 mmol/L (136-145) Potassium Level 4.5 mmol/L (3.5-5.1) 4.3 mmol/L (3.5-5.1) Chloride Level 99 mmol/L (98-107) 101 mmol/L (98-107) Carbon Dioxide Level 34 mmol/L (21-32) 35 mmol/L (21-32) Anion Gap 4 (6-14) 3 (6-14) Blood Urea Nitrogen 17 mg/dL (7-20) 11 mg/dL (7-20) Creatinine 0.8 mg/dL (0.6-1.0) 0.7 mg/dL (0.6-1.0) Estimated GFR (Cockcroft-Gault) 84.2 98.2 Glucose Level 85 mg/dL (70-99) 85 mg/dL (70-99) Calcium Level 9.2 mg/dL (8.5-10.1) 8.9 mg/dL (8.5-10.1) Troponin I Quantitative 0.035 ng/mL (0.000-0.055) AS-Lfu-I-Type Natriuretic Peptide 1551 pg/mL (0-449) Lactic Acid Level < 0.3 mmol/L (0.4-2.0) Procalcitonin 0.26 ng/mL (0.00-0.10) Laboratory Tests Test 01/14/19 05:03 White Blood Count 16.5 x10^3/uL (4.0-11.0) Red Blood Count 3.75 x10^6/uL (3.50-5.40) Hemoglobin 8.0 g/dL (12.0-15.5) Hematocrit 27.2 % (36.0-47.0) Mean Corpuscular Volume 73 fL (79-100) Mean Corpuscular Hemoglobin 21 pg (25-35) Mean Corpuscular Hemoglobin Concent 30 g/dL (31-37) Red Cell Distribution Width 18.8 % (11.5-14.5) Platelet Count 466 x10^3/uL (140-400) Neutrophils (%) (Auto) 83 % (31-73) Lymphocytes (%) (Auto) 10 % (24-48) Monocytes (%) (Auto) 6 % (0-9) Eosinophils (%) (Auto) 1 % (0-3) Basophils (%) (Auto) 0 % (0-3) Neutrophils # (Auto) 13.7 x10^3uL (1.8-7.7) Lymphocytes # (Auto) 1.7 x10^3/uL (1.0-4.8) Monocytes # (Auto) 0.9 x10^3/uL (0.0-1.1) Eosinophils # (Auto) 0.1 x10^3/uL (0.0-0.7) Basophils # (Auto) 0.1 x10^3/uL (0.0-0.2) Sodium Level 139 mmol/L (136-145) Potassium Level 4.3 mmol/L (3.5-5.1) Chloride Level 101 mmol/L (98-107) Carbon Dioxide Level 35 mmol/L (21-32) Anion Gap 3 (6-14) Blood Urea Nitrogen 11 mg/dL (7-20) Creatinine 0.7 mg/dL (0.6-1.0) Estimated GFR (Cockcroft-Gault) 98.2 Glucose Level 85 mg/dL (70-99) Calcium Level 8.9 mg/dL (8.5-10.1) Medications Active Scripts Medications Dose Route/Sig Max Daily Dose Days Date Category Percocet 7.5-325 Mg Tablet (Oxycodone/Acetaminophen) 1 Each Tablet 1 Tab PO QID PRN MDD 1 12/09/18 Rx FENTANYL 50mcg/hr (Fentanyl) 1 Each Patch.td72 1 Patch TP Q3DAYS MDD 1 12/09/18 Rx Albuterol Sulfate Neb Soln (Albuterol Sulfate) 0.63 Mg/3 Ml Vial.neb 1 Vial NEB QID 12/02/18 Reported Gabapentin (Gabapentin) 300 Mg Capsule 300 Mg PO BID PRN 10/19/18 Reported Amlodipine Besylate 5 Mg Tablet 5 Mg PO DAILY 10/19/18 Reported Culturelle (Lactobacillus Rhamnosus Gg) 1 Each Cap.sprink 1 Cap PO BID 30 07/07/17 Rx Pantoprazole Sodium 40 Mg Tablet.dr 40 Mg PEG BID 03/11/17 Reported Donepezil Hcl 5 Mg Tablet 5 Mg PEG BID 03/11/17 Reported Reglan (Metoclopramide Hcl) 10 Mg Tablet 5 Mg PO QIDACHS 03/11/17 Reported Cyproheptadine Hcl 2 Mg/5 Ml Syrup 10 Ml PEG TID 03/11/17 Reported Ondansetron Odt (Ondansetron) 4 Mg Tab.rapdis 4 Mg PEG QIDPRN PRN 06/19/14 Reported Impression . 1. Acute on chronic hypoxic respiratory failure secondary to new left upper lobe pneumonia. likely aspiration 2. Abnormal chest x-ray consistent with left upper lobe consolidation. 3. 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 4. Dysphagia. 5. History of lung cancer and laryngeal cancer, status post tracheostomy and chronic hypoxic respiratory failure. Many of her past admission with hypoxia are associated with having no oxygen through the trach. 6. emesis per PCP Plan . 1. Continue broad-spectrum antibiotics as recommended by Infectious Disease. 2. Follow sputum cultures. 3. Follow white cell count. She had initial marked leukocytosis. 4. Continue bronchodilators. 5. P.r.n. trach suction.CHECK CULTURES 6. Follow up chest x-ray in 3-4 days. 7. Discuss with RN. MARY LANIER MD January 14, 2019 10:53
--- NOTE | 2019-01-14 11:08 | PDOC ---
PROGRESS NOTES Chief Complaint Chief Complaint HCAP SIRS Acute on chronic hypercapnic respiratory failure Chronic dysphagia, chronically PEG on tube feeds Hx of lung cancer and laryngeal cancer - s/p trach, stable HTN History of Present Illness History of Present Illness Patient seen and examined. Pt resting comfortably in NAD Pt unable to speak with trach Discussed with Nurse Vitals Vitals Vital Signs Date Time Temp Pulse Resp B/P (MAP) Pulse Ox O2 Delivery O2 Flow Rate FiO2 01/14/19 09:57 95 10.0 01/14/19 08:15 Tracheal Collar 01/14/19 08:02 104 170/76 01/14/19 07:40 98.2 16 98.2 Physical Exam General: Alert, Cooperative, No acute distress Lungs: Crackles, Other (decrease bases) Abdomen: Normal bowel sounds, Soft, No tenderness, No hepatosplenomegaly, No masses, Other (PEG site clean) Extremities: No clubbing, No cyanosis, No edema, Normal pulses, No tenderness/swelling Skin: No rashes, No breakdown, No significant lesion Labs LABS Laboratory Tests Test 01/14/19 05:03 White Blood Count 16.5 x10^3/uL (4.0-11.0) Red Blood Count 3.75 x10^6/uL (3.50-5.40) Hemoglobin 8.0 g/dL (12.0-15.5) Hematocrit 27.2 % (36.0-47.0) Mean Corpuscular Volume 73 fL (79-100) Mean Corpuscular Hemoglobin 21 pg (25-35) Mean Corpuscular Hemoglobin Concent 30 g/dL (31-37) Red Cell Distribution Width 18.8 % (11.5-14.5) Platelet Count 466 x10^3/uL (140-400) Neutrophils (%) (Auto) 83 % (31-73) Lymphocytes (%) (Auto) 10 % (24-48) Monocytes (%) (Auto) 6 % (0-9) Eosinophils (%) (Auto) 1 % (0-3) Basophils (%) (Auto) 0 % (0-3) Neutrophils # (Auto) 13.7 x10^3uL (1.8-7.7) Lymphocytes # (Auto) 1.7 x10^3/uL (1.0-4.8) Monocytes # (Auto) 0.9 x10^3/uL (0.0-1.1) Eosinophils # (Auto) 0.1 x10^3/uL (0.0-0.7) Basophils # (Auto) 0.1 x10^3/uL (0.0-0.2) Sodium Level 139 mmol/L (136-145) Potassium Level 4.3 mmol/L (3.5-5.1) Chloride Level 101 mmol/L (98-107) Carbon Dioxide Level 35 mmol/L (21-32) Anion Gap 3 (6-14) Blood Urea Nitrogen 11 mg/dL (7-20) Creatinine 0.7 mg/dL (0.6-1.0) Estimated GFR (Cockcroft-Gault) 98.2 Glucose Level 85 mg/dL (70-99) Calcium Level 8.9 mg/dL (8.5-10.1) Review of Systems Review of Systems Pt did not speak due to trach but indicated no GRIFFIN Indicated no abdominal pain Assessment and Plan Assessmemt and Plan Problems Medical Problems: (1) Dyspnea Status: Acute Assessment: HCAP SIRS Acute on chronic hypercapnic respiratory failure Chronic dysphagia, chronically PEG on tube feeds Hx of lung cancer and laryngeal cancer - s/p trach, stable HTN Plan: IV Vanc and Zerbexa Duonebs O2 per trach shield Continue nebulizer Home meds Labs DVT PPx: Lovenox Pulm and ID consulted Comment Review of Relevant I have reviewed the following items miko (where applicable) has been applied. Labs Laboratory Tests Test 01/12/19 14:50 01/12/19 16:45 01/13/19 03:50 01/14/19 05:03 White Blood Count 25.8 x10^3/uL (4.0-11.0) 16.5 x10^3/uL (4.0-11.0) Red Blood Count 4.20 x10^6/uL (3.50-5.40) 3.75 x10^6/uL (3.50-5.40) Hemoglobin 8.6 g/dL (12.0-15.5) 8.0 g/dL (12.0-15.5) Hematocrit 30.1 % (36.0-47.0) 27.2 % (36.0-47.0) Mean Corpuscular Volume 72 fL (79-100) 73 fL (79-100) Mean Corpuscular Hemoglobin 21 pg (25-35) 21 pg (25-35) Mean Corpuscular Hemoglobin Concent 29 g/dL (31-37) 30 g/dL (31-37) Red Cell Distribution Width 19.3 % (11.5-14.5) 18.8 % (11.5-14.5) Platelet Count 513 x10^3/uL (140-400) 466 x10^3/uL (140-400) Neutrophils (%) (Auto) 87 % (31-73) 83 % (31-73) Lymphocytes (%) (Auto) 8 % (24-48) 10 % (24-48) Monocytes (%) (Auto) 5 % (0-9) 6 % (0-9) Eosinophils (%) (Auto) 0 % (0-3) 1 % (0-3) Basophils (%) (Auto) 1 % (0-3) 0 % (0-3) Neutrophils # (Auto) 22.3 x10^3uL (1.8-7.7) 13.7 x10^3uL (1.8-7.7) Lymphocytes # (Auto) 2.0 x10^3/uL (1.0-4.8) 1.7 x10^3/uL (1.0-4.8) Monocytes # (Auto) 1.3 x10^3/uL (0.0-1.1) 0.9 x10^3/uL (0.0-1.1) Eosinophils # (Auto) 0.0 x10^3/uL (0.0-0.7) 0.1 x10^3/uL (0.0-0.7) Basophils # (Auto) 0.1 x10^3/uL (0.0-0.2) 0.1 x10^3/uL (0.0-0.2) Segmented Neutrophils % 89 % (35-66) Band Neutrophils % 1 % (0-9) Lymphocytes % 6 % (24-48) Monocytes % 4 % (0-10) Nucleated Red Blood Cells 1 Toxic Granulation Slight Toxic Vacuolation Slight Platelet Estimate Increased (ADEQUATE) Polychromasia Slight Hypochromasia Mod Microcytosis Slight Spherocytes Occ Sodium Level 137 mmol/L (136-145) 139 mmol/L (136-145) Potassium Level 4.5 mmol/L (3.5-5.1) 4.3 mmol/L (3.5-5.1) Chloride Level 99 mmol/L (98-107) 101 mmol/L (98-107) Carbon Dioxide Level 34 mmol/L (21-32) 35 mmol/L (21-32) Anion Gap 4 (6-14) 3 (6-14) Blood Urea Nitrogen 17 mg/dL (7-20) 11 mg/dL (7-20) Creatinine 0.8 mg/dL (0.6-1.0) 0.7 mg/dL (0.6-1.0) Estimated GFR (Cockcroft-Gault) 84.2 98.2 Glucose Level 85 mg/dL (70-99) 85 mg/dL (70-99) Calcium Level 9.2 mg/dL (8.5-10.1) 8.9 mg/dL (8.5-10.1) Troponin I Quantitative 0.035 ng/mL (0.000-0.055) ZW-[id number]-L-Type Natriuretic Peptide 1551 pg/mL (0-449) Lactic Acid Level < 0.3 mmol/L (0.4-2.0) Procalcitonin 0.26 ng/mL (0.00-0.10) Laboratory Tests Test 01/14/19 05:03 White Blood Count 16.5 x10^3/uL (4.0-11.0) Red Blood Count 3.75 x10^6/uL (3.50-5.40) Hemoglobin 8.0 g/dL (12.0-15.5) Hematocrit 27.2 % (36.0-47.0) Mean Corpuscular Volume 73 fL (79-100) Mean Corpuscular Hemoglobin 21 pg (25-35) Mean Corpuscular Hemoglobin Concent 30 g/dL (31-37) Red Cell Distribution Width 18.8 % (11.5-14.5) Platelet Count 466 x10^3/uL (140-400) Neutrophils (%) (Auto) 83 % (31-73) Lymphocytes (%) (Auto) 10 % (24-48) Monocytes (%) (Auto) 6 % (0-9) Eosinophils (%) (Auto) 1 % (0-3) Basophils (%) (Auto) 0 % (0-3) Neutrophils # (Auto) 13.7 x10^3uL (1.8-7.7) Lymphocytes # (Auto) 1.7 x10^3/uL (1.0-4.8) Monocytes # (Auto) 0.9 x10^3/uL (0.0-1.1) Eosinophils # (Auto) 0.1 x10^3/uL (0.0-0.7) Basophils # (Auto) 0.1 x10^3/uL (0.0-0.2) Sodium Level 139 mmol/L (136-145) Potassium Level 4.3 mmol/L (3.5-5.1) Chloride Level 101 mmol/L (98-107) Carbon Dioxide Level 35 mmol/L (21-32) Anion Gap 3 (6-14) Blood Urea Nitrogen 11 mg/dL (7-20) Creatinine 0.7 mg/dL (0.6-1.0) Estimated GFR (Cockcroft-Gault) 98.2 Glucose Level 85 mg/dL (70-99) Calcium Level 8.9 mg/dL (8.5-10.1) Microbiology 01/12/19 Blood Culture - Preliminary, Resulted NO GROWTH AFTER 1 DAY Medications Current Medications Albuterol/ Ipratropium (Duoneb) 3 ml 1X ONCE NEB Last administered on 01/12/19at 14:56; Start 01/12/19 at 14:30; Stop 01/12/19 at 14:35; Status DC Piperacillin Sod/ Tazobactam Sod (Zosyn Per Pharmacy) 1 each PRN DAILY PRN MC SEE COMMENTS; Start 01/12/19 at 16:15 Vancomycin HCl (Vanco Per Pharmacy) 1 each PRN DAILY PRN MC SEE COMMENTS Last administered on 01/13/19at 14:47; Start 01/12/19 at 16:15 Vancomycin HCl 1.25 gm/Sodium Chloride 250 ml @ 166.667 mls/hr 1X ONCE IV Last administered on 01/12/19at 18:18; Start 01/12/19 at 16:15; Stop 01/12/19 at 17:44; Status DC Piperacillin Sod/ Tazobactam Sod 3.375 gm/Sodium Chloride 50 ml @ 100 mls/hr 1X ONCE IV Last administered on 01/12/19at 17:28; Start 01/12/19 at 16:15; Stop 01/12/19 at 16:44; Status DC Oxycodone/ Acetaminophen (Percocet 5/325) 1 tab 1X ONCE PO Last administered on 01/12/19at 18:18; Start 01/12/19 at 18:00; Stop 01/12/19 at 18:08; Status DC Fentanyl Citrate (Fentanyl 2ml Vial) 25 mcg PRN Q2HR PRN IV PAIN Last administered on 01/14/19at 05:37; Start 01/12/19 at 18:30 Piperacillin Sod/ Tazobactam Sod 3.375 gm/Sodium Chloride 50 ml @ 100 mls/hr Q6HRS IV Last administered on 01/13/19at 06:13; Start 01/13/19 at 00:00; Stop 01/13/19 at 11:26; Status DC Vancomycin HCl 750 mg/Sodium Chloride 250 ml @ 250 mls/hr Q24H IV Last adminis tered on 01/13/19at 17:11; Start 01/13/19 at 18:00 Vancomycin HCl (Vancomycin Trough Level) 1 each 1X ONCE MC ; Start 01/14/19 at 1 7:30; Stop 01/14/19 at 17:31 Amlodipine Besylate (Norvasc) 5 mg DAILY PO Last administered on 01/14/19at 08:02; Start 01/13/19 at 09:00 Fentanyl (Duragesic 50mcg/ Hr Patch) 1 patch Q3DAYS TD ; Start 01/15/19 at 09:00; Status UNV Gabapentin (Neurontin) 300 mg BID PO Last administered on 01/14/19at 08:01; Start 01/12/19 at 21:00 Lactobacillus Rhamnosus (Culturelle) 1 cap BID PO Last administered on 01/14/19 08:01; Start 01/12/19 at 21:00 Metoclopramide HCl (Reglan) 5 mg QIDACHS PO Last administered on 01/14/19at 07 :59; Start 01/12/19 at 21:00 Ondansetron HCl (Zofran Odt) 4 mg PRN Q6HRS PRN PEG NAUSEA/VOMITING; Start 01/12/19 at 19:45 Oxycodone/ Acetaminophen (Percocet 7.5/ 325) 1 tab PRN QID PRN PO MODERATE TO SEVERE PAIN Last administered on 01/14/19 09:57; Start 01/12/19 at 19:45 Non-Formulary Medication (Albuterol Sulfate (Albuterol Sulfate Neb Soln)) 1 vial QID NEB ; Start 01/12/19 at 21:00; Status UNV Cyproheptadine HCl (Periactin) 4 mg TID PEG Last administered on 01/14/19 08:00; Start 01/12/19 at 21:00 Donepezil HCl (Aricept) 5 mg BID PEG Last administered on 01/14/19 08:01; Start 01/13/19 at 09:00 Pantoprazole Sodium (PROTONIX VIAL for IV PUSH) 40 mg DAILYAC IVP ; Start 01/13/19 at 07:30; Status UNV Enoxaparin Sodium (Lovenox 40mg Syringe) 40 mg Q24H SQ Last administered on 01/13/19 21:19; Start 01/12/19 at 20:00 Albuterol Sulfate (Ventolin Neb Soln) 2.5 mg RTQID NEB Last administered on 01/14/19 08:25; Start 01/12/19 at 20:00 Lansoprazole (Prevacid) 30 mg DAILYAC PEG Last administered on 01/14/19 07:30; Start 01/13/19 at 07:30 Fentanyl (Duragesic 50mcg/ Hr Patch) 1 patch Q3DAYS TD Last administered on 01/12/19 20:45; Start 01/12/19 at 21:00 Ceftolozane/ Tazobactam 1500 mg/Sodium Chloride 100 ml @ 100 mls/hr Q8HRS IV Last administered on 01/14/19 06:39; Start 01/13/19 at 14:00 Polyethylene Glycol (miraLAX PACKET) 17 gm PRN BID PRN GT CONSTIPATION Last administered on 01/13/19 14:29; Start 01/13/19 at 12:45 Ondansetron HCl (Zofran) 4 mg PRN Q8HRS PRN IV NAUSEA/VOMITING Last administered on 01/13/19 18:35; Start 01/13/19 at 18:45 Active Scripts Active Percocet 7.5-325 Mg Tablet (Oxycodone/Acetaminophen) 1 Each Tablet 1 Tab PO QID PRN MDD 1 FENTANYL 50mcg/hr (Fentanyl) 1 Each Patch.td72 1 Patch TP Q3DAYS MDD 1 Culturelle (Lactobacillus Rhamnosus Gg) 1 Each Cap.sprink 1 Cap PO BID 30 Days Reported Albuterol Sulfate Neb Soln (Albuterol Sulfate) 0.63 Mg/3 Ml Vial.neb 1 Vial NEB QID Gabapentin (Gabapentin) 300 Mg Capsule 300 Mg PO BID PRN Amlodipine Besylate 5 Mg Tablet 5 Mg PO DAILY Pantoprazole Sodium 40 Mg Tablet.dr 40 Mg PEG BID Donepezil Hcl 5 Mg Tablet 5 Mg PEG BID Reglan (Metoclopramide Hcl) 10 Mg Tablet 5 Mg PO QIDACHS Cyproheptadine Hcl 2 Mg/5 Ml Syrup 10 Ml PEG TID Ondansetron Odt (Ondansetron) 4 Mg Tab.rapdis 4 Mg PEG QIDPRN PRN Vitals/I & O Vital Sign - Last 24 Hours 01/13/19 01/13/19 01/13/19 01/13/19 11:10 11:52 12:15 15:00 Temp 98.7 98.7 98.7 98.7 Pulse 105 107 Resp 18 20 B/P (MAP) 140/64 (89) 142/62 (88) Pulse Ox 93 93 97 91 O2 Delivery Tracheal Collar Tracheal Collar Tracheal Collar 01/13/19 01/13/19 01/13/19 01/13/19 16:05 19:00 19:30 19:50 Temp 99.3 99.3 Pulse 116 Resp 20 B/P (MAP) 167/77 (107) Pulse Ox 91 85 85 O2 Delivery Tracheal Collar Tracheal Collar Trach Collar O2 Flow Rate 10.0 10.0 01/13/19 01/13/19 01/13/19 01/13/19 20:06 20:30 21:19 22:22 Pulse Ox 95 O2 Delivery Tracheal Collar Tracheal Collar Tracheal Collar O2 Flow Rate 10.0 10.0 10.0 10.0 01/13/19 01/14/19 01/14/19 01/14/19 23:00 03:00 05:37 06:38 Temp 98.7 99.1 98.7 99.1 Pulse 106 103 Resp 20 20 18 B/P (MAP) 125/60 (81) 156/78 (104) Pulse Ox 76 87 O2 Delivery Tracheal Collar Tracheal Collar Tracheal Collar O2 Flow Rate 10.0 01/14/19 01/14/19 01/14/19 01/14/19 07:40 08:00 08:02 08:15 Temp 98.2 98.2 Pulse 103 104 Resp 16 B/P (MAP) 170/76 (107) 170/76 Pulse Ox 92 95 O2 Delivery Tracheal Collar Trach Collar Tracheal Collar O2 Flow Rate 10.0 10.0 01/14/19 09:57 Pulse Ox 95 O2 Flow Rate 10.0 Intake and Output 01/13/19 01/13/19 01/14/19 14:59 22:59 06:59 Intake Total 1410 ml 1650 ml 300 ml Output Total 600 ml Balance 810 ml 1650 ml 300 ml Nutrition Consultation Dietary Evaluation: Comments: Continue with TF order Expected Outcomes/Goals: TF tolerance Malnutrition Findings: Body Fat Depletion (Non Severe: Mild Depletion Weight Status: Underweight RUSSLESAMMY III DO January 14, 2019 11:08
[2019-01-14 11:24] VITALS: BP 119/56
[2019-01-14] MEDS: VANCOMYCIN PER PHARMACY MC PRN ×2 (11:55→18:56)
--- NOTE | 2019-01-14 12:17 | PDOC ---
Infectious Disease Note Subjective Subjective feeling better ROS ROS no n/v/d/sob Vital Sign Vital Signs Vital Signs Date Time Temp Pulse Resp B/P (MAP) Pulse Ox O2 Delivery O2 Flow Rate FiO2 01/14/19 11:24 98.3 96 18 119/56 (77) 94 Tracheal Collar 98.3 01/14/19 09:57 10.0 Physical Exam PHYSICAL EXAM GENERAL: Alert, oriented female, not in any distress. VITAL SIGNS: Stable HEENT: NAD. NECK: Supple, no JVP, no lymphadenopathy. LUNGS: Clear. HEART: S1, S2 regular. No gallop or murmur. ABDOMEN: Soft, nontender, no organomegaly. EXTREMITIES: No edema or cyanosis. SKIN: Unremarkable. NEUROLOGIC: The patient is neurologically intact. Labs Lab Laboratory Tests Test 01/14/19 05:03 White Blood Count 16.5 x10^3/uL (4.0-11.0) Red Blood Count 3.75 x10^6/uL (3.50-5.40) Hemoglobin 8.0 g/dL (12.0-15.5) Hematocrit 27.2 % (36.0-47.0) Mean Corpuscular Volume 73 fL (79-100) Mean Corpuscular Hemoglobin 21 pg (25-35) Mean Corpuscular Hemoglobin Concent 30 g/dL (31-37) Red Cell Distribution Width 18.8 % (11.5-14.5) Platelet Count 466 x10^3/uL (140-400) Neutrophils (%) (Auto) 83 % (31-73) Lymphocytes (%) (Auto) 10 % (24-48) Monocytes (%) (Auto) 6 % (0-9) Eosinophils (%) (Auto) 1 % (0-3) Basophils (%) (Auto) 0 % (0-3) Neutrophils # (Auto) 13.7 x10^3uL (1.8-7.7) Lymphocytes # (Auto) 1.7 x10^3/uL (1.0-4.8) Monocytes # (Auto) 0.9 x10^3/uL (0.0-1.1) Eosinophils # (Auto) 0.1 x10^3/uL (0.0-0.7) Basophils # (Auto) 0.1 x10^3/uL (0.0-0.2) Sodium Level 139 mmol/L (136-145) Potassium Level 4.3 mmol/L (3.5-5.1) Chloride Level 101 mmol/L (98-107) Carbon Dioxide Level 35 mmol/L (21-32) Anion Gap 3 (6-14) Blood Urea Nitrogen 11 mg/dL (7-20) Creatinine 0.7 mg/dL (0.6-1.0) Estimated GFR (Cockcroft-Gault) 98.2 Glucose Level 85 mg/dL (70-99) Calcium Level 8.9 mg/dL (8.5-10.1) Micro BC 1/3 G + cocci Objective Assessment Fever Leukocytosis Hypoxia Pneumonia MDR PSA BC + G + cocci 1/3 likely contaminant Plan Plan of Care vanc and zerbexa check cultures supportive care ASTER MATOS MD January 14, 2019 12:17
--- NOTE | 2019-01-14 12:28 | NUR ---
SW following for discharge planning. Chart reviewed. Pt is from home with family and is currently on services with [facility], ; fax [phone]. Pt is also has been on services with [facility] for IV antibiotics at home. Pt has all needed trach and oxygen equipment at home. SW will continue to follow for discharge planning.
[2019-01-14 14:38] VITALS: BP 162/72
[2019-01-14 18:47] LABS: VANC TR 5.6 mcg/mL (10.0-20.0)
--- NOTE | 2019-01-14 18:58 | NUR ---
Pharmacy Vancomycin Dosing Note S: Consulted to monitor and dose vancomycin started 01/12/19. O: BERNARDO DE LEON is a 78 year old F with Bacteremia, Pneumonia Other Antibiotics: ZERBAXA LABS: Last BUN: 11 Last Creatinine: 0.7 Creatinine Clearance: 37 mL/min Last WBC: 16.5 Last Procalcitonin: 0.26 Tmax (past 24 hours): 100 Microbiology: Blood: GPC in 1 of 3 bottles (2 sets drawn) I/O: 3360/600 Drug Levels: Last Trough level: 5.6 on 01/14/19 at 1740 Last dose given 01/13/19 at 1711 Vancomycin Dosing: Dosing Weight: Actual Target Trough: 15-20 A: Based on: trough P: 1. Dose vancomycin 1000mg 1x then begin 750 mg IV q12h 2. Follow up Trough level on 01/16/19 at 0730 3. Pharmacy will continue to monitor, follow and adjust therapy as needed. Tenisha Noland Lucho, 01/14/19 [id number]
[2019-01-14 19:00] VITALS: BP 150/80
[2019-01-14] MEDS ORDERED: VANCOMYCIN 1 GM in IV NORMAL SALINE 250ML 250 ML IV ONE (19:30)
[2019-01-14] MEDS: ENOXAPARIN 40 MG/0.4 ML SYRINGE. SQ SCH (20:01)
[2019-01-14 23:00] VITALS: BP 162/67
--- NOTE | 2019-01-15 01:03 | CONS ---
DATE OF CONSULTATION: 01/14/2019 TYPE OF REPORT: Medical oncology consultation report. CONSULTATION REQUESTING PHYSICIAN: Randall Arnett D.O. REASON FOR CONSULTATION: Anemia and history of lung cancer and laryngeal cancer. The patient admitted for pneumonia. 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 She needed a PEG tube for nutrition. She was diagnosed with lung cancer involving the left lower lobe on 12/21/2009 and she was treated with radiation therapy. PET scan on 04/27/2015 revealed mediastinal lymphadenopathy. 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 She received Erbitux from 08/23/2015, which she completed on 10/04/2015 along with concurrent radiation therapy. She has not had any evidence of recurrent malignancy since then. She has had multiple bouts of pneumonia and she is now admitted to [facility] with pneumonia. PAST MEDICAL HISTORY: Cancer of the pharynx, cancer of the larynx, lung cancer, hypertension; dysphagia; COPD, coronary artery disease and history of pneumonia multiple times. SOCIAL HISTORY: She quit smoking in 2007. She has a 06-vcji-toco smoking history. FAMILY HISTORY: Positive for diabetes and colon cancer. REVIEW OF SYSTEMS: A 12-point review of system was performed. Pertinent positives are mentioned in the history of present illness. Rest of the system review is negative. PHYSICAL EXAMINATION: GENERAL APPEARANCE: The patient is a 78-year-old -[place] female who is in no acute cardiorespiratory distress. VITAL SIGNS: Blood pressure 119/56 and temperature 98.3. HEENT: Head: Atraumatic and normocephalic. Eyes: No icterus. NECK: Supple. She has a tracheostomy in place. CHEST: Bilaterally symmetrical. No crepitations or rhonchi heard. HEART: S1 and S2 normal. ABDOMEN: Soft and nontender. She has a PEG tube in place. CENTRAL NERVOUS SYSTEM: No focal deficits. LYMPHATICS: No lymphadenopathy. SKIN: No rashes. PSYCHOLOGIC: Mood and affect are appropriate. MUSCULOSKELETAL: No joint effusions. LABORATORY DATA: WBC 16.5, hemoglobin 8, platelet count 466 and MCV 73. Creatinine 0.7. RADIOLOGICAL STUDIES: She underwent a chest x-ray on 01/12/2019 that reveals increased consolidation in the left upper lobe. IMPRESSION AND PLAN: 1. Laryngeal cancer diagnosed on 07/23/2015 status post tracheostomy and status post radiation therapy along with cetuximab with no evidence of recurrent disease. 2. 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 3. 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 4. Anemia, which I suspect is due to chronic disease. She has had multiple bouts of pneumonia requiring hospitalization and antibiotics. I will also check reticulocyte count, iron studies, B12 and folic acid levels. 5. Pneumonia. Appreciate Infectious Disease and Pulmonary management. BRIJESH JARAMILLO MD DR: AMIRAH/sena JOB#: [id number] / [id number] [facility]ATA
[2019-01-15 03:00] VITALS: BP 157/83
[2019-01-15 04:43] LABS: BASO # 0.1 x10^3/uL (0.0-0.2); BASO % 1 % (0-3); EOS # 0.3 x10^3/uL (0.0-0.7); EOS % 2 % (0-3); HEMATOCRIT 29.5 % (36.0-47.0); HEMOGLOBIN 8.5 g/dL (12.0-15.5); LYMPH % 16 % (24-48); MEAN CORPUSCULAR HEMOGLOBIN 21 pg (25-35); MEAN CORPUSCULAR HGB CONC 29 g/dL (31-37); MEAN CORPUSCULAR VOLUME 72 fL (79-100); MONO # 0.5 x10^3/uL (0.0-1.1); MONO % 4 % (0-9); NEUT # 9.6 x10^3uL (1.8-7.7); NEUT % 77 % (31-73); PLATELET COUNT 490 x10^3/uL (140-400); RED BLOOD COUNT 4.11 x10^6/uL (3.50-5.40); WHITE BLOOD COUNT 12.4 x10^3/uL (4.0-11.0)
[2019-01-15 05:30] LABS: CALCIUM 9.3 mg/dL (8.5-10.1); CREATININE 0.7 mg/dL (0.6-1.0); GFR 98.2; POTASSIUM 4.2 mmol/L (3.5-5.1)
[2019-01-15] MEDS: CEFTOLOZANE/TAZOBACTAM 1,500 MG in IV NORMAL SALINE 100ML 100 ML IV SCH ×3 (06:29→22:19)
[2019-01-15] MEDS: oxyCODONE/APAP 7.5/325 1 TAB TABLET PO PRN ×3 (06:33→17:54)
[2019-01-15 07:00] VITALS: BP 191/87
[2019-01-15] MEDS: METOCLOPRAMIDE 5 MG TABLET. PO SCH ×4 (07:30→20:54)
[2019-01-15] MEDS: DONEPEZIL HCL 5 MG TABLET. PEG SCH ×2 (08:35→20:55)
[2019-01-15] MEDS: CYPROHEPTADINE 4 MG TABLET. PEG SCH ×3 (08:36→20:54)
[2019-01-15] MEDS: amLODIPine BESYLATE 5 MG TABLET PO SCH (08:36)
[2019-01-15] MEDS: GABAPENTIN 300 MG CAPSULE. PO SCH ×2 (08:36→20:54)
[2019-01-15] MEDS: LANSOPRAZOLE 30 MG TAB.RAP.DR PEG SCH (08:36)
[2019-01-15] MEDS: LACTOBACILLUS RHAMNOSUS GG 1 CAPSULE. PO SCH ×2 (08:36→20:54)
[2019-01-15] MEDS: fentaNYL 50MCG/HR PATCH 1 PATCH PATCH.TD72 TD SCH (08:37)
[2019-01-15] MEDS: VANCOMYCIN 750 MG in IV NORMAL SALINE 250ML 250 ML IV SCH ×2 (08:39→20:53)
[2019-01-15] MEDS: ONDANSETRON PF 4 MG/2 ML VIAL. IV PRN (08:55)
[2019-01-15] MEDS ORDERED: fentaNYL 50MCG/HR PATCH 1 PATCH PATCH.TD72 TD SCH (09:00)
[2019-01-15] MEDS: ALBUTEROL SULFATE 2.5 MG/3 ML NEBU. NEB SCH ×4 (09:21→20:00)
--- NOTE | 2019-01-15 10:38 | PDOC ---
PULMONARY PROGRESS NOTES Subjective NO SOA MODERATE TRACH SECRETIONS Vitals Vital Signs Date Time Temp Pulse Resp B/P (MAP) Pulse Ox O2 Delivery O2 Flow Rate FiO2 01/15/19 09:21 Tracheal Collar 10.0 01/15/19 08:37 95 01/15/19 08:36 104 191/87 01/15/19 07:00 97.7 17 97.7 General: Alert, No acute distress Lungs: Crackles Cardiovascular: S1, S2 Abdomen: Soft, Non-tender Extremities: No Edema Labs Laboratory Tests Test 01/14/19 05:03 01/14/19 17:40 01/15/19 04:30 White Blood Count 16.5 x10^3/uL (4.0-11.0) 12.4 x10^3/uL (4.0-11.0) Red Blood Count 3.75 x10^6/uL (3.50-5.40) 4.11 x10^6/uL (3.50-5.40) Hemoglobin 8.0 g/dL (12.0-15.5) 8.5 g/dL (12.0-15.5) Hematocrit 27.2 % (36.0-47.0) 29.5 % (36.0-47.0) Mean Corpuscular Volume 73 fL (79-100) 72 fL (79-100) Mean Corpuscular Hemoglobin 21 pg (25-35) 21 pg (25-35) Mean Corpuscular Hemoglobin Concent 30 g/dL (31-37) 29 g/dL (31-37) Red Cell Distribution Width 18.8 % (11.5-14.5) 19.0 % (11.5-14.5) Platelet Count 466 x10^3/uL (140-400) 490 x10^3/uL (140-400) Neutrophils (%) (Auto) 83 % (31-73) 77 % (31-73) Lymphocytes (%) (Auto) 10 % (24-48) 16 % (24-48) Monocytes (%) (Auto) 6 % (0-9) 4 % (0-9) Eosinophils (%) (Auto) 1 % (0-3) 2 % (0-3) Basophils (%) (Auto) 0 % (0-3) 1 % (0-3) Neutrophils # (Auto) 13.7 x10^3uL (1.8-7.7) 9.6 x10^3uL (1.8-7.7) Lymphocytes # (Auto) 1.7 x10^3/uL (1.0-4.8) 2.0 x10^3/uL (1.0-4.8) Monocytes # (Auto) 0.9 x10^3/uL (0.0-1.1) 0.5 x10^3/uL (0.0-1.1) Eosinophils # (Auto) 0.1 x10^3/uL (0.0-0.7) 0.3 x10^3/uL (0.0-0.7) Basophils # (Auto) 0.1 x10^3/uL (0.0-0.2) 0.1 x10^3/uL (0.0-0.2) Sodium Level 139 mmol/L (136-145) 140 mmol/L (136-145) Potassium Level 4.3 mmol/L (3.5-5.1) 4.2 mmol/L (3.5-5.1) Chloride Level 101 mmol/L (98-107) 102 mmol/L (98-107) Carbon Dioxide Level 35 mmol/L (21-32) 31 mmol/L (21-32) Anion Gap 3 (6-14) 7 (6-14) Blood Urea Nitrogen 11 mg/dL (7-20) 10 mg/dL (7-20) Creatinine 0.7 mg/dL (0.6-1.0) 0.7 mg/dL (0.6-1.0) Estimated GFR (Cockcroft-Gault) 98.2 98.2 Glucose Level 85 mg/dL (70-99) 85 mg/dL (70-99) Calcium Level 8.9 mg/dL (8.5-10.1) 9.3 mg/dL (8.5-10.1) Iron Level 10 ug/dL (50-170) Total Iron Binding Capacity 277 ug/dL (250-450) Iron Saturation 4 % (15-34) Ferritin 75 ng/mL (8-252) Vitamin B12 Level 1660 pg/mL (247-911) Vancomycin Level Trough 5.6 mcg/mL (10.0-20.0) Vancomycin Last Dose Date Unk Vancomycin Last Dose Time Unk Laboratory Tests Test 01/14/19 17:40 01/15/19 04:30 Iron Level 10 ug/dL (50-170) Total Iron Binding Capacity 277 ug/dL (250-450) Iron Saturation 4 % (15-34) Ferritin 75 ng/mL (8-252) Vitamin B12 Level 1660 pg/mL (247-911) Vancomycin Level Trough 5.6 mcg/mL (10.0-20.0) Vancomycin Last Dose Date Unk Vancomycin Last Dose Time Unk White Blood Count 12.4 x10^3/uL (4.0-11.0) Red Blood Count 4.11 x10^6/uL (3.50-5.40) Hemoglobin 8.5 g/dL (12.0-15.5) Hematocrit 29.5 % (36.0-47.0) Mean Corpuscular Volume 72 fL (79-100) Mean Corpuscular Hemoglobin 21 pg (25-35) Mean Corpuscular Hemoglobin Concent 29 g/dL (31-37) Red Cell Distribution Width 19.0 % (11.5-14.5) Platelet Count 490 x10^3/uL (140-400) Neutrophils (%) (Auto) 77 % (31-73) Lymphocytes (%) (Auto) 16 % (24-48) Monocytes (%) (Auto) 4 % (0-9) Eosinophils (%) (Auto) 2 % (0-3) Basophils (%) (Auto) 1 % (0-3) Neutrophils # (Auto) 9.6 x10^3uL (1.8-7.7) Lymphocytes # (Auto) 2.0 x10^3/uL (1.0-4.8) Monocytes # (Auto) 0.5 x10^3/uL (0.0-1.1) Eosinophils # (Auto) 0.3 x10^3/uL (0.0-0.7) Basophils # (Auto) 0.1 x10^3/uL (0.0-0.2) Sodium Level 140 mmol/L (136-145) Potassium Level 4.2 mmol/L (3.5-5.1) Chloride Level 102 mmol/L (98-107) Carbon Dioxide Level 31 mmol/L (21-32) Anion Gap 7 (6-14) Blood Urea Nitrogen 10 mg/dL (7-20) Creatinine 0.7 mg/dL (0.6-1.0) Estimated GFR (Cockcroft-Gault) 98.2 Glucose Level 85 mg/dL (70-99) Calcium Level 9.3 mg/dL (8.5-10.1) Medications Active Scripts Medications Dose Route/Sig Max Daily Dose Days Date Category Percocet 7.5-325 Mg Tablet (Oxycodone/Acetaminophen) 1 Each Tablet 1 Tab PO QID PRN MDD 1 12/09/18 Rx FENTANYL 50mcg/hr (Fentanyl) 1 Each Patch.td72 1 Patch TP Q3DAYS MDD 1 12/09/18 Rx Albuterol Sulfate Neb Soln (Albuterol Sulfate) 0.63 Mg/3 Ml Vial.neb 1 Vial NEB QID 12/02/18 Reported Gabapentin (Gabapentin) 300 Mg Capsule 300 Mg PO BID PRN 10/19/18 Reported Amlodipine Besylate 5 Mg Tablet 5 Mg PO DAILY 10/19/18 Reported Culturelle (Lactobacillus Rhamnosus Gg) 1 Each Cap.sprink 1 Cap PO BID 30 07/07/17 Rx Pantoprazole Sodium 40 Mg Tablet.dr 40 Mg PEG BID 03/11/17 Reported Donepezil Hcl 5 Mg Tablet 5 Mg PEG BID 03/11/17 Reported Reglan (Metoclopramide Hcl) 10 Mg Tablet 5 Mg PO QIDACHS 03/11/17 Reported Cyproheptadine Hcl 2 Mg/5 Ml Syrup 10 Ml PEG TID 03/11/17 Reported Ondansetron Odt (Ondansetron) 4 Mg Tab.rapdis 4 Mg PEG QIDPRN PRN 06/19/14 Reported Impression . 1. Acute on chronic hypoxic respiratory failure secondary to new left upper lobe pneumonia. likely aspiration 2. Abnormal chest x-ray consistent with left upper lobe consolidation. 3. 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 4. Dysphagia. 5. History of lung cancer and laryngeal cancer, status post tracheostomy and chronic hypoxic respiratory failure. Many of her past admission with hypoxia are associated with having no oxygen through the trach. 6. emesis per PCP Plan . 1. Continue broad-spectrum antibiotics as recommended by Infectious Disease. 2. Follow sputum cultures. 3. Follow white cell count. She had initial marked leukocytosis. 4. Continue bronchodilators. 5. P.r.n. trach suction.CHECK CULTURES 6. Follow up chest x-ray in 1-2 days. 7. Discuss with RN. MARY LANIER MD January 15, 2019 10:38
[2019-01-15 11:00] VITALS: BP 169/82
[2019-01-15] MEDS: POLYETHYLENE GLYCOL 3350 17 GM PACKET. GT PRN ×2 (11:23→21:01)
[2019-01-15 15:00] VITALS: BP 182/90
--- NOTE | 2019-01-15 15:18 | PDOC ---
Infectious Disease Note Subjective Subjective Copious tracheal secretions and frequent suctioning Not feeling very well No fevers last 24 hours ROS ROS per HPI Vital Sign Vital Signs Vital Signs Date Time Temp Pulse Resp B/P (MAP) Pulse Ox O2 Delivery O2 Flow Rate FiO2 01/15/19 12:37 95 10.0 01/15/19 11:58 Tracheal Collar 01/15/19 11:00 98.7 104 17 169/82 (111) 98.7 Physical Exam PHYSICAL EXAM GENERAL: Propped up in bed, weak appearing HEENT: Oral cavity clear NECK: Supple, no JVP, no lymphadenopathy. LUNGS: Diminished aeration, congested HEART: S1, S2 regular. ABDOMEN: Soft, nontender, PEG EXTREMITIES: No edema or cyanosis. SKIN: No rash NEUROLOGIC: Alert, responds appropriately Port clean Labs Lab Laboratory Tests Test 01/14/19 17:40 01/15/19 04:30 Iron Level 10 ug/dL (50-170) Total Iron Binding Capacity 277 ug/dL (250-450) Iron Saturation 4 % (15-34) Ferritin 75 ng/mL (8-252) Vitamin B12 Level 1660 pg/mL (247-911) Vancomycin Level Trough 5.6 mcg/mL (10.0-20.0) Vancomycin Last Dose Date Unk Vancomycin Last Dose Time Unk White Blood Count 12.4 x10^3/uL (4.0-11.0) Red Blood Count 4.11 x10^6/uL (3.50-5.40) Hemoglobin 8.5 g/dL (12.0-15.5) Hematocrit 29.5 % (36.0-47.0) Mean Corpuscular Volume 72 fL (79-100) Mean Corpuscular Hemoglobin 21 pg (25-35) Mean Corpuscular Hemoglobin Concent 29 g/dL (31-37) Red Cell Distribution Width 19.0 % (11.5-14.5) Platelet Count 490 x10^3/uL (140-400) Neutrophils (%) (Auto) 77 % (31-73) Lymphocytes (%) (Auto) 16 % (24-48) Monocytes (%) (Auto) 4 % (0-9) Eosinophils (%) (Auto) 2 % (0-3) Basophils (%) (Auto) 1 % (0-3) Neutrophils # (Auto) 9.6 x10^3uL (1.8-7.7) Lymphocytes # (Auto) 2.0 x10^3/uL (1.0-4.8) Monocytes # (Auto) 0.5 x10^3/uL (0.0-1.1) Eosinophils # (Auto) 0.3 x10^3/uL (0.0-0.7) Basophils # (Auto) 0.1 x10^3/uL (0.0-0.2) Sodium Level 140 mmol/L (136-145) Potassium Level 4.2 mmol/L (3.5-5.1) Chloride Level 102 mmol/L (98-107) Carbon Dioxide Level 31 mmol/L (21-32) Anion Gap 7 (6-14) Blood Urea Nitrogen 10 mg/dL (7-20) Creatinine 0.7 mg/dL (0.6-1.0) Estimated GFR (Cockcroft-Gault) 98.2 Glucose Level 85 mg/dL (70-99) Calcium Level 9.3 mg/dL (8.5-10.1) Micro 01/12. BLOOD CULTURE Final GRAM POSITIVE COCCI IN CLUSTERS IN 1 OF 3 BOTTLES (2 SETS Objective Assessment GPC bacteremia 1 of 3 bottles, from 01/12, likely contaminate. ID pending Fever better Leukocytosis - trending down Hypoxia Pneumonia h/o MDR PSA Plan Plan of Care vanc dosing per pharmacy and zerbexa Trough 5.6 f/u cultures Monitor WBC/temp and renal function closely supportive care D/w nursing Patient seen, examined, I agree with above assessment and plan formulated by [facility]. RAISA VILLAR APRN January 15, 2019 15:18 ELIE MATOS MD January 15, 2019 22:24
[2019-01-15] MEDS: VANCOMYCIN PER PHARMACY MC PRN (15:38)
--- NOTE | 2019-01-15 16:47 | PDOC ---
PROGRESS NOTES Chief Complaint Chief Complaint HCAP sepsis Acute on chronic hypercapnic respiratory failure Chronic dysphagia, chronically PEG on tube feeds Hx of lung cancer and laryngeal cancer - s/p trach, stable HTN History of Present Illness History of Present Illness Patient seen and examined. Pt resting comfortably in NAD Pt unable to speak with trach Discussed with Nurse Vitals Vitals Vital Signs Date Time Temp Pulse Resp B/P (MAP) Pulse Ox O2 Delivery O2 Flow Rate FiO2 01/15/19 15:26 Tracheal Collar 10.0 01/15/19 15:00 97.7 99 17 182/90 (120) 100 97.7 Physical Exam Physical Exam GENERAL: Propped up in bed, weak appearing HEENT: Oral cavity clear NECK: Supple, no JVP, no lymphadenopathy. LUNGS: Diminished aeration, congested HEART: S1, S2 regular. ABDOMEN: Soft, nontender, PEG EXTREMITIES: No edema or cyanosis. SKIN: No rash NEUROLOGIC: Alert, responds appropriately Port clean General: Alert, Cooperative, No acute distress Lungs: Crackles Abdomen: Normal bowel sounds, Soft, No tenderness, No hepatosplenomegaly, No masses, Other (PEG site clean) Extremities: No clubbing, No cyanosis, No edema, Normal pulses, No tenderness/swelling Skin: No rashes, No breakdown, No significant lesion Labs LABS Laboratory Tests Test 01/14/19 17:40 01/15/19 04:30 Iron Level 10 ug/dL (50-170) Total Iron Binding Capacity 277 ug/dL (250-450) Iron Saturation 4 % (15-34) Ferritin 75 ng/mL (8-252) Vitamin B12 Level 1660 pg/mL (247-911) Vancomycin Level Trough 5.6 mcg/mL (10.0-20.0) Vancomycin Last Dose Date Unk Vancomycin Last Dose Time Unk White Blood Count 12.4 x10^3/uL (4.0-11.0) Red Blood Count 4.11 x10^6/uL (3.50-5.40) Hemoglobin 8.5 g/dL (12.0-15.5) Hematocrit 29.5 % (36.0-47.0) Mean Corpuscular Volume 72 fL (79-100) Mean Corpuscular Hemoglobin 21 pg (25-35) Mean Corpuscular Hemoglobin Concent 29 g/dL (31-37) Red Cell Distribution Width 19.0 % (11.5-14.5) Platelet Count 490 x10^3/uL (140-400) Neutrophils (%) (Auto) 77 % (31-73) Lymphocytes (%) (Auto) 16 % (24-48) Monocytes (%) (Auto) 4 % (0-9) Eosinophils (%) (Auto) 2 % (0-3) Basophils (%) (Auto) 1 % (0-3) Neutrophils # (Auto) 9.6 x10^3uL (1.8-7.7) Lymphocytes # (Auto) 2.0 x10^3/uL (1.0-4.8) Monocytes # (Auto) 0.5 x10^3/uL (0.0-1.1) Eosinophils # (Auto) 0.3 x10^3/uL (0.0-0.7) Basophils # (Auto) 0.1 x10^3/uL (0.0-0.2) Sodium Level 140 mmol/L (136-145) Potassium Level 4.2 mmol/L (3.5-5.1) Chloride Level 102 mmol/L (98-107) Carbon Dioxide Level 31 mmol/L (21-32) Anion Gap 7 (6-14) Blood Urea Nitrogen 10 mg/dL (7-20) Creatinine 0.7 mg/dL (0.6-1.0) Estimated GFR (Cockcroft-Gault) 98.2 Glucose Level 85 mg/dL (70-99) Calcium Level 9.3 mg/dL (8.5-10.1) Assessment and Plan Assessmemt and Plan Problems Medical Problems: (1) Dyspnea Status: Acute Comment Review of Relevant I have reviewed the following items miko (where applicable) has been applied. Labs Laboratory Tests Test 01/14/19 05:03 01/14/19 17:40 01/15/19 04:30 White Blood Count 16.5 x10^3/uL (4.0-11.0) 12.4 x10^3/uL (4.0-11.0) Red Blood Count 3.75 x10^6/uL (3.50-5.40) 4.11 x10^6/uL (3.50-5.40) Hemoglobin 8.0 g/dL (12.0-15.5) 8.5 g/dL (12.0-15.5) Hematocrit 27.2 % (36.0-47.0) 29.5 % (36.0-47.0) Mean Corpuscular Volume 73 fL (79-100) 72 fL (79-100) Mean Corpuscular Hemoglobin 21 pg (25-35) 21 pg (25-35) Mean Corpuscular Hemoglobin Concent 30 g/dL (31-37) 29 g/dL (31-37) Red Cell Distribution Width 18.8 % (11.5-14.5) 19.0 % (11.5-14.5) Platelet Count 466 x10^3/uL (140-400) 490 x10^3/uL (140-400) Neutrophils (%) (Auto) 83 % (31-73) 77 % (31-73) Lymphocytes (%) (Auto) 10 % (24-48) 16 % (24-48) Monocytes (%) (Auto) 6 % (0-9) 4 % (0-9) Eosinophils (%) (Auto) 1 % (0-3) 2 % (0-3) Basophils (%) (Auto) 0 % (0-3) 1 % (0-3) Neutrophils # (Auto) 13.7 x10^3uL (1.8-7.7) 9.6 x10^3uL (1.8-7.7) Lymphocytes # (Auto) 1.7 x10^3/uL (1.0-4.8) 2.0 x10^3/uL (1.0-4.8) Monocytes # (Auto) 0.9 x10^3/uL (0.0-1.1) 0.5 x10^3/uL (0.0-1.1) Eosinophils # (Auto) 0.1 x10^3/uL (0.0-0.7) 0.3 x10^3/uL (0.0-0.7) Basophils # (Auto) 0.1 x10^3/uL (0.0-0.2) 0.1 x10^3/uL (0.0-0.2) Sodium Level 139 mmol/L (136-145) 140 mmol/L (136-145) Potassium Level 4.3 mmol/L (3.5-5.1) 4.2 mmol/L (3.5-5.1) Chloride Level 101 mmol/L (98-107) 102 mmol/L (98-107) Carbon Dioxide Level 35 mmol/L (21-32) 31 mmol/L (21-32) Anion Gap 3 (6-14) 7 (6-14) Blood Urea Nitrogen 11 mg/dL (7-20) 10 mg/dL (7-20) Creatinine 0.7 mg/dL (0.6-1.0) 0.7 mg/dL (0.6-1.0) Estimated GFR (Cockcroft-Gault) 98.2 98.2 Glucose Level 85 mg/dL (70-99) 85 mg/dL (70-99) Calcium Level 8.9 mg/dL (8.5-10.1) 9.3 mg/dL (8.5-10.1) Iron Level 10 ug/dL (50-170) Total Iron Binding Capacity 277 ug/dL (250-450) Iron Saturation 4 % (15-34) Ferritin 75 ng/mL (8-252) Vitamin B12 Level 1660 pg/mL (247-911) Vancomycin Level Trough 5.6 mcg/mL (10.0-20.0) Vancomycin Last Dose Date Unk Vancomycin Last Dose Time Unk Laboratory Tests Test 01/14/19 17:40 01/15/19 04:30 Iron Level 10 ug/dL (50-170) Total Iron Binding Capacity 277 ug/dL (250-450) Iron Saturation 4 % (15-34) Ferritin 75 ng/mL (8-252) Vitamin B12 Level 1660 pg/mL (247-911) Vancomycin Level Trough 5.6 mcg/mL (10.0-20.0) Vancomycin Last Dose Date Unk Vancomycin Last Dose Time Unk White Blood Count 12.4 x10^3/uL (4.0-11.0) Red Blood Count 4.11 x10^6/uL (3.50-5.40) Hemoglobin 8.5 g/dL (12.0-15.5) Hematocrit 29.5 % (36.0-47.0) Mean Corpuscular Volume 72 fL (79-100) Mean Corpuscular Hemoglobin 21 pg (25-35) Mean Corpuscular Hemoglobin Concent 29 g/dL (31-37) Red Cell Distribution Width 19.0 % (11.5-14.5) Platelet Count 490 x10^3/uL (140-400) Neutrophils (%) (Auto) 77 % (31-73) Lymphocytes (%) (Auto) 16 % (24-48) Monocytes (%) (Auto) 4 % (0-9) Eosinophils (%) (Auto) 2 % (0-3) Basophils (%) (Auto) 1 % (0-3) Neutrophils # (Auto) 9.6 x10^3uL (1.8-7.7) Lymphocytes # (Auto) 2.0 x10^3/uL (1.0-4.8) Monocytes # (Auto) 0.5 x10^3/uL (0.0-1.1) Eosinophils # (Auto) 0.3 x10^3/uL (0.0-0.7) Basophils # (Auto) 0.1 x10^3/uL (0.0-0.2) Sodium Level 140 mmol/L (136-145) Potassium Level 4.2 mmol/L (3.5-5.1) Chloride Level 102 mmol/L (98-107) Carbon Dioxide Level 31 mmol/L (21-32) Anion Gap 7 (6-14) Blood Urea Nitrogen 10 mg/dL (7-20) Creatinine 0.7 mg/dL (0.6-1.0) Estimated GFR (Cockcroft-Gault) 98.2 Glucose Level 85 mg/dL (70-99) Calcium Level 9.3 mg/dL (8.5-10.1) Microbiology 01/12/19 Blood Culture - Preliminary, Resulted NO GROWTH AFTER 2 DAYS Medications Current Medications Albuterol/ Ipratropium (Duoneb) 3 ml 1X ONCE NEB Last administered on 01/12/19at 14:56; Start 01/12/19 at 14:30; Stop 01/12/19 at 14:35; Status DC Piperacillin Sod/ Tazobactam Sod (Zosyn Per Pharmacy) 1 each PRN DAILY PRN MC SEE COMMENTS; Start 01/12/19 at 16:15; Status Cancel Vancomycin HCl (Vanco Per Pharmacy) 1 each PRN DAILY PRN MC SEE COMMENTS Last administered on 01/15/19at 15:38; Start 01/12/19 at 16:15 Vancomycin HCl 1.25 gm/Sodium Chloride 250 ml @ 166.667 mls/hr 1X ONCE IV Last administered on 01/12/19at 18:18; Start 01/12/19 at 16:15; Stop 01/12/19 at 17:44; Status DC Piperacillin Sod/ Tazobactam Sod 3.375 gm/Sodium Chloride 50 ml @ 100 mls/hr 1X ONCE IV Last administered on 01/12/19at 17:28; Start 01/12/19 at 16:15; Stop 01/12/19 at 16:44; Status DC Oxycodone/ Acetaminophen (Percocet 5/325) 1 tab 1X ONCE PO Last administered on 01/12/19at 18:18; Start 01/12/19 at 18:00; Stop 01/12/19 at 18:08; Status DC Fentanyl Citrate (Fentanyl 2ml Vial) 25 mcg PRN Q2HR PRN IV PAIN Last administered on 01/14/19at 22:22; Start 01/12/19 at 18:30 Piperacillin Sod/ Tazobactam Sod 3.375 gm/Sodium Chloride 50 ml @ 100 mls/hr Q6HRS IV Last administered on 01/13/19at 06:13; Start 01/13/19 at 00:00; Stop 01/13/19 at 11:26; Status DC Vancomycin HCl 750 mg/Sodium Chloride 250 ml @ 250 mls/hr Q24H IV Last administered on 01/13/19at 17:11; Start 01/13/19 at 18:00; Stop 01/14/19 at 18:54; Status DC Vancomycin HCl (Vancomycin Trough Level) 1 each 1X ONCE MC Last administered on 01/14/19at 17:30; Start 01/14/19 at 17:30; Stop 01/14/19 at 17:31; Status DC Amlodipine Besylate (Norvasc) 5 mg DAILY PO Last administered on 01/15/19at 08:36; Start 01/13/19 at 09:00 Fentanyl (Duragesic 50mcg/ Hr Patch) 1 patch Q3DAYS TD ; Start 01/15/19 at 09:00; Status UNV Gabapentin (Neurontin) 300 mg BID PO Last administered on 01/15/19at 08:36; Start 01/12/19 at 21:00 Lactobacillus Rhamnosus (Culturelle) 1 cap BID PO Last administered on 01/15/19 08:36; Start 01/12/19 at 21:00 Metoclopramide HCl (Reglan) 5 mg QIDACHS PO Last administered on 01/15/19 16:38; Start 01/12/19 at 21:00 Ondansetron HCl (Zofran Odt) 4 mg PRN Q6HRS PRN PEG NAUSEA/VOMITING; Start 01/12/19 at 19:45 Oxycodone/ Acetaminophen (Percocet 7.5/ 325) 1 tab PRN QID PRN PO MODERATE TO SEVERE PAIN Last administered on 01/15/19 11:23; Start 01/12/19 at 19:45 Non-Formulary Medication (Albuterol Sulfate (Albuterol Sulfate Neb Soln)) 1 vial QID NEB ; Start 01/12/19 at 21:00; Status UNV Cyproheptadine HCl (Periactin) 4 mg TID PEG Last administered on 01/15/19 14:37; Start 01/12/19 at 21:00 Donepezil HCl (Aricept) 5 mg BID PEG Last administered on 01/15/19 08:35; Start 01/13/19 at 09:00 Pantoprazole Sodium (PROTONIX VIAL for IV PUSH) 40 mg DAILYAC IVP ; Start 01/13/19 at 07:30; Status UNV Enoxaparin Sodium (Lovenox 40mg Syringe) 40 mg Q24H SQ Last administered on 01/14/19 20:01; Start 01/12/19 at 20:00 Albuterol Sulfate (Ventolin Neb Soln) 2.5 mg RTQID NEB Last administered on 01/15/19 15:23; Start 01/12/19 at 20:00 Lansoprazole (Prevacid) 30 mg DAILYAC PEG Last administered on 01/15/19 08:36; Start 01/13/19 at 07:30 Fentanyl (Duragesic 50mcg/ Hr Patch) 1 patch Q3DAYS TD Last administered on 01/15/19 08:37; Start 01/12/19 at 21:00 Ceftolozane/ Tazobactam 1500 mg/Sodium Chloride 100 ml @ 100 mls/hr Q8HRS IV Last administered on 5/4/19at 14:37; Start 01/13/19 at 14:00 Polyethylene Glycol (miraLAX PACKET) 17 gm PRN BID PRN GT CONSTIPATION Last administered on 01/15/19 11:23; Start 01/13/19 at 12:45 Ondansetron HCl (Zofran) 4 mg PRN Q8HRS PRN IV NAUSEA/VOMITING Last administered on 01/15/19 08:55; Start 01/13/19 at 18:45 Vancomycin HCl 1 gm/Sodium Chloride 250 ml @ 250 mls/hr 1X ONCE IV Last administered on 01/14/19at 20:01; Start 01/14/19 at 19:30; Stop 01/14/19 at 20:29; Status DC Vancomycin HCl 750 mg/Sodium Chloride 250 ml @ 250 mls/hr Q12H IV Last administered on 01/15/19at 08:39; Start 01/15/19 at 08:00 Vancomycin HCl (Vancomycin Trough Level) 1 each 1X ONCE MC ; Start 01/16/19 at 07:30; Stop 01/16/19 at 07:31 Active Scripts Active Percocet 7.5-325 Mg Tablet (Oxycodone/Acetaminophen) 1 Each Tablet 1 Tab PO QID PRN MDD 1 FENTANYL 50mcg/hr (Fentanyl) 1 Each Patch.td72 1 Patch TP Q3DAYS MDD 1 Culturelle (Lactobacillus Rhamnosus Gg) 1 Each Cap.sprink 1 Cap PO BID 30 Days Reported Albuterol Sulfate Neb Soln (Albuterol Sulfate) 0.63 Mg/3 Ml Vial.neb 1 Vial NEB QID Gabapentin (Gabapentin) 300 Mg Capsule 300 Mg PO BID PRN Amlodipine Besylate 5 Mg Tablet 5 Mg PO DAILY Pantoprazole Sodium 40 Mg Tablet. 40 Mg PEG BID Donepezil Hcl 5 Mg Tablet 5 Mg PEG BID Reglan (Metoclopramide Hcl) 10 Mg Tablet 5 Mg PO QIDACHS Cyproheptadine Hcl 2 Mg/5 Ml Syrup 10 Ml PEG TID Ondansetron Odt (Ondansetron) 4 Mg Tab.rapdis 4 Mg PEG QIDPRN PRN Vitals/I & O Vital Sign - Last 24 Hours 01/14/19 01/14/19 01/14/19 01/14/19 17:06 19:00 20:15 20:56 Temp 98.3 98.3 Pulse 95 Resp 20 B/P (MAP) 150/80 (103) Pulse Ox 100 90 100 O2 Delivery Trach Collar Tracheal Collar O2 Flow Rate 10.0 10.0 10.0 01/14/19 01/14/19 01/14/19 01/14/19 22:22 22:52 23:00 23:52 Temp 98.4 98.4 Pulse 106 Resp 20 B/P (MAP) 162/67 (98) Pulse Ox 89 O2 Delivery Tracheal Collar Tracheal Collar Tracheal Collar O2 Flow Rate 10.0 10.0 10.0 01/15/19 01/15/19 01/15/19 01/15/19 00:53 03:00 06:33 07:00 Temp 97.7 97.7 97.7 97.7 Pulse 93 104 Resp 20 17 B/P (MAP) 157/83 (107) 191/87 (121) Pulse Ox 95 95 O2 Delivery Tracheal Collar Tracheal Collar Nasal Cannula O2 Flow Rate 10.0 4.0 01/15/19 01/15/19 01/15/19 01/15/19 08:00 08:36 08:37 09:21 Pulse 104 B/P (MAP) 191/87 Pulse Ox 95 O2 Delivery Trach Collar Tracheal Collar O2 Flow Rate 10.0 4.0 10.0 01/15/19 01/15/19 01/15/19 01/15/19 11:00 11:23 11:58 12:23 Temp 98.7 98.7 Pulse 104 Resp 17 B/P (MAP) 169/82 (111) Pulse Ox 98 95 95 O2 Delivery Room Air Tracheal Collar O2 Flow Rate 10.0 10.0 10.0 01/15/19 01/15/19 01/15/19 12:37 15:00 15:26 Temp 97.7 97.7 Pulse 99 Resp 17 B/P (MAP) 182/90 (120) Pulse Ox 95 100 O2 Delivery Room Air Tracheal Collar O2 Flow Rate 10.0 10.0 Intake and Output 01/14/19 01/14/19 01/15/19 15:00 23:00 07:00 Intake Total 874 ml 900 ml Output Total 600 ml Balance 874 ml 900 ml -600 ml Nutrition Consultation Dietary Evaluation: Comments: Continue with TF order Expected Outcomes/Goals: TF tolerance Malnutrition Findings: Body Fat Depletion (Non Severe: Mild Depletion Weight Status: Underweight RUDDY QUEZADA MD January 15, 2019 16:47
[2019-01-15 19:40] VITALS: BP 191/94
[2019-01-15] MEDS: ENOXAPARIN 40 MG/0.4 ML SYRINGE. SQ SCH (20:54)
[2019-01-15] MEDS ORDERED: amLODIPine BESYLATE 5 MG TABLET PO ONE (21:00)
[2019-01-15] MEDS: fentaNYL PF VIAL 100 MCG/2 ML VIAL IV PRN (21:33)
[2019-01-15 22:18] VITALS: BP 179/83
[2019-01-16] MEDS: oxyCODONE/APAP 7.5/325 1 TAB TABLET PO PRN ×4 (00:05→22:08)
[2019-01-16 03:10] VITALS: BP 177/86
[2019-01-16] MEDS: fentaNYL PF VIAL 100 MCG/2 ML VIAL IV PRN ×2 (04:20→19:26)
[2019-01-16] MEDS: CEFTOLOZANE/TAZOBACTAM 1,500 MG in IV NORMAL SALINE 100ML 100 ML IV SCH ×3 (06:26→22:09)
[2019-01-16 07:00] VITALS: BP 177/89
[2019-01-16] MEDS: VANCOMYCIN 750 MG in IV NORMAL SALINE 250ML 250 ML IV SCH (08:00)
[2019-01-16] MEDS: ALBUTEROL SULFATE 2.5 MG/3 ML NEBU. NEB SCH ×4 (08:02→20:53)
[2019-01-16] MEDS: amLODIPine BESYLATE 10 MG TABLET PO SCH (08:28)
[2019-01-16] MEDS: LACTOBACILLUS RHAMNOSUS GG 1 CAPSULE. PO SCH ×2 (08:29→22:09)
[2019-01-16] MEDS: METOCLOPRAMIDE 5 MG TABLET. PO SCH ×4 (08:29→22:08)
[2019-01-16] MEDS: GABAPENTIN 300 MG CAPSULE. PO SCH ×2 (08:29→22:09)
[2019-01-16] MEDS: POLYETHYLENE GLYCOL 3350 17 GM PACKET. GT PRN (08:29)
[2019-01-16] MEDS: CYPROHEPTADINE 4 MG TABLET. PEG SCH ×3 (08:29→22:08)
[2019-01-16] MEDS: DONEPEZIL HCL 5 MG TABLET. PEG SCH ×2 (08:29→22:09)
[2019-01-16] MEDS: LANSOPRAZOLE 30 MG TAB.RAP.DR PEG SCH (08:29)
[2019-01-16 10:13] LABS: CALCIUM 9.7 mg/dL (8.5-10.1); CREATININE 0.8 mg/dL (0.6-1.0); GFR 84.2; POTASSIUM 3.8 mmol/L (3.5-5.1)
[2019-01-16 10:19] LABS: VANC TR 13.3 mcg/mL (10.0-20.0)
[2019-01-16 10:25] LABS: BASO # 0.1 x10^3/uL (0.0-0.2); BASO % 1 % (0-3); EOS # 0.2 x10^3/uL (0.0-0.7); EOS % 2 % (0-3); HEMATOCRIT 34.1 % (36.0-47.0); LYMPH # 1.5 x10^3/uL (1.0-4.8); LYMPH % 14 % (24-48); MEAN CORPUSCULAR HEMOGLOBIN 21 pg (25-35); MEAN CORPUSCULAR HGB CONC 29 g/dL (31-37); MEAN CORPUSCULAR VOLUME 71 fL (79-100); MONO # 0.4 x10^3/uL (0.0-1.1); MONO % 3 % (0-9); NEUT % 81 % (31-73); PLATELET COUNT 624 x10^3/uL (140-400); WHITE BLOOD COUNT 11.1 x10^3/uL (4.0-11.0)
[2019-01-16] MEDS: VANCOMYCIN PER PHARMACY MC PRN (10:42)
--- NOTE | 2019-01-16 10:51 | PDOC ---
Infectious Disease Note Subjective Subjective Feeling better ongoing tracheal secretions and frequent suctioning No fevers last 24 hours Denies SOA ROS ROS per HPI Vital Sign Vital Signs Vital Signs Date Time Temp Pulse Resp B/P (MAP) Pulse Ox O2 Delivery O2 Flow Rate FiO2 01/16/19 08:28 105 177/89 01/16/19 08:03 97 Tracheal Collar 10.0 01/16/19 07:00 97.8 20 97.8 Physical Exam PHYSICAL EXAM GENERAL: Propped up in bed, alert, HEENT: Oral cavity clear NECK: Supple, no JVP, no lymphadenopathy. LUNGS: Diminished aeration, congested HEART: S1, S2 regular. ABDOMEN: Soft, nontender, PEG EXTREMITIES: No edema or cyanosis. SKIN: No rash NEUROLOGIC: Alert, responds appropriately Port clean Labs Lab Laboratory Tests Test 01/16/19 10:00 White Blood Count 11.1 x10^3/uL (4.0-11.0) Red Blood Count 4.80 x10^6/uL (3.50-5.40) Hemoglobin 10.0 g/dL (12.0-15.5) Hematocrit 34.1 % (36.0-47.0) Mean Corpuscular Volume 71 fL (79-100) Mean Corpuscular Hemoglobin 21 pg (25-35) Mean Corpuscular Hemoglobin Concent 29 g/dL (31-37) Red Cell Distribution Width 19.0 % (11.5-14.5) Platelet Count 624 x10^3/uL (140-400) Neutrophils (%) (Auto) 81 % (31-73) Lymphocytes (%) (Auto) 14 % (24-48) Monocytes (%) (Auto) 3 % (0-9) Eosinophils (%) (Auto) 2 % (0-3) Basophils (%) (Auto) 1 % (0-3) Neutrophils # (Auto) 9.0 x10^3uL (1.8-7.7) Lymphocytes # (Auto) 1.5 x10^3/uL (1.0-4.8) Monocytes # (Auto) 0.4 x10^3/uL (0.0-1.1) Eosinophils # (Auto) 0.2 x10^3/uL (0.0-0.7) Basophils # (Auto) 0.1 x10^3/uL (0.0-0.2) Sodium Level 137 mmol/L (136-145) Potassium Level 3.8 mmol/L (3.5-5.1) Chloride Level 98 mmol/L (98-107) Carbon Dioxide Level 33 mmol/L (21-32) Anion Gap 6 (6-14) Blood Urea Nitrogen 14 mg/dL (7-20) Creatinine 0.8 mg/dL (0.6-1.0) Estimated GFR (Cockcroft-Gault) 84.2 Glucose Level 179 mg/dL (70-99) Calcium Level 9.7 mg/dL (8.5-10.1) Vancomycin Level Trough 13.3 mcg/mL (10.0-20.0) Vancomycin Last Dose Date 01/15/19 Vancomycin Last Dose Time 1999 Micro 01/12. BLOOD CULTURE Final GRAM POSITIVE COCCI IN CLUSTERS IN 1 OF 3 BOTTLES (2 SETS SPUTUM GRAM STAIN RESULT 1 Final Many gram negative rods. Few gram positive rods. Few gram positive cocci Objective Assessment GPC bacteremia 1 of 3 bottles, from 01/12, likely contaminant,final. ID pending Fever better Leukocytosis - trending down Hypoxia Pneumonia, sputum GS: GPC, GNR, GPR 01/14 h/o MDR PSA Plan Plan of Care vanc dosing per pharmacy and zerbaxa monitor renal functions closely Trough 13.3 Probiotics f/u final BC results f/u sputum c/s Today's CXR pending Monitor WBC/temp and renal function closely supportive care RAISA VILLAR APRN January 16, 2019 10:51 ELIE MATOS MD January 16, 2019 14:55
--- NOTE | 2019-01-16 10:57 | RAD ---
EXAM: Chest, single view. HISTORY: Port malfunction. COMPARISON: 01/12/2019 FINDINGS: A frontal view of the chest is obtained. There is a right chest wall port catheter with the tip in the superior cavoatrial junction or superior right atrium, stable in appearance. There is a tracheostomy device overlying the thoracic inlet. There is stable diffuse increased interstitial opacity. There has been interval decrease in previously demonstrated masslike consolidation within the left midlung. There is persistent partial consolidation of the left lower lobe. No pneumothorax is seen. There is a stable prominent cardiac silhouette. IMPRESSION: 1. Right port catheter unchanged in position. The tip is within the superior cavoatrial junction or superior right atrium. 2. Complete to near complete resolution of previously demonstrated masslike consolidation within the left midlung. There is stable suspected partial consolidation involving the left lower lobe. 3. Stable suspected diffuse interstitial infiltrate. Electronically signed by: Argeins Ryan MD (01/16/2019 10:54 AM) [facility]
[2019-01-16 11:00] VITALS: BP 164/79
--- NOTE | 2019-01-16 11:47 | PDOC ---
PULMONARY PROGRESS NOTES Subjective NO SOA MODERATE TRACH SECRETIONS Vitals Vital Signs Date Time Temp Pulse Resp B/P (MAP) Pulse Ox O2 Delivery O2 Flow Rate FiO2 01/16/19 08:28 105 177/89 01/16/19 08:03 97 Tracheal Collar 10.0 01/16/19 07:00 97.8 20 97.8 General: Alert, No acute distress Lungs: Crackles Cardiovascular: S1, S2 Abdomen: Soft, Non-tender Extremities: No Edema Labs Laboratory Tests Test 01/14/19 17:40 01/15/19 04:30 01/16/19 10:00 Iron Level 10 ug/dL (50-170) Total Iron Binding Capacity 277 ug/dL (250-450) Iron Saturation 4 % (15-34) Ferritin 75 ng/mL (8-252) Vitamin B12 Level 1660 pg/mL (247-911) Vancomycin Level Trough 5.6 mcg/mL (10.0-20.0) 13.3 mcg/mL (10.0-20.0) Vancomycin Last Dose Date Unk 01/15/19 Vancomycin Last Dose Time Unk 1999 White Blood Count 12.4 x10^3/uL (4.0-11.0) 11.1 x10^3/uL (4.0-11.0) Red Blood Count 4.11 x10^6/uL (3.50-5.40) 4.80 x10^6/uL (3.50-5.40) Hemoglobin 8.5 g/dL (12.0-15.5) 10.0 g/dL (12.0-15.5) Hematocrit 29.5 % (36.0-47.0) 34.1 % (36.0-47.0) Mean Corpuscular Volume 72 fL (79-100) 71 fL (79-100) Mean Corpuscular Hemoglobin 21 pg (25-35) 21 pg (25-35) Mean Corpuscular Hemoglobin Concent 29 g/dL (31-37) 29 g/dL (31-37) Red Cell Distribution Width 19.0 % (11.5-14.5) 19.0 % (11.5-14.5) Platelet Count 490 x10^3/uL (140-400) 624 x10^3/uL (140-400) Neutrophils (%) (Auto) 77 % (31-73) 81 % (31-73) Lymphocytes (%) (Auto) 16 % (24-48) 14 % (24-48) Monocytes (%) (Auto) 4 % (0-9) 3 % (0-9) Eosinophils (%) (Auto) 2 % (0-3) 2 % (0-3) Basophils (%) (Auto) 1 % (0-3) 1 % (0-3) Neutrophils # (Auto) 9.6 x10^3uL (1.8-7.7) 9.0 x10^3uL (1.8-7.7) Lymphocytes # (Auto) 2.0 x10^3/uL (1.0-4.8) 1.5 x10^3/uL (1.0-4.8) Monocytes # (Auto) 0.5 x10^3/uL (0.0-1.1) 0.4 x10^3/uL (0.0-1.1) Eosinophils # (Auto) 0.3 x10^3/uL (0.0-0.7) 0.2 x10^3/uL (0.0-0.7) Basophils # (Auto) 0.1 x10^3/uL (0.0-0.2) 0.1 x10^3/uL (0.0-0.2) Sodium Level 140 mmol/L (136-145) 137 mmol/L (136-145) Potassium Level 4.2 mmol/L (3.5-5.1) 3.8 mmol/L (3.5-5.1) Chloride Level 102 mmol/L (98-107) 98 mmol/L (98-107) Carbon Dioxide Level 31 mmol/L (21-32) 33 mmol/L (21-32) Anion Gap 7 (6-14) 6 (6-14) Blood Urea Nitrogen 10 mg/dL (7-20) 14 mg/dL (7-20) Creatinine 0.7 mg/dL (0.6-1.0) 0.8 mg/dL (0.6-1.0) Estimated GFR (Cockcroft-Gault) 98.2 84.2 Glucose Level 85 mg/dL (70-99) 179 mg/dL (70-99) Calcium Level 9.3 mg/dL (8.5-10.1) 9.7 mg/dL (8.5-10.1) Laboratory Tests Test 01/16/19 10:00 White Blood Count 11.1 x10^3/uL (4.0-11.0) Red Blood Count 4.80 x10^6/uL (3.50-5.40) Hemoglobin 10.0 g/dL (12.0-15.5) Hematocrit 34.1 % (36.0-47.0) Mean Corpuscular Volume 71 fL (79-100) Mean Corpuscular Hemoglobin 21 pg (25-35) Mean Corpuscular Hemoglobin Concent 29 g/dL (31-37) Red Cell Distribution Width 19.0 % (11.5-14.5) Platelet Count 624 x10^3/uL (140-400) Neutrophils (%) (Auto) 81 % (31-73) Lymphocytes (%) (Auto) 14 % (24-48) Monocytes (%) (Auto) 3 % (0-9) Eosinophils (%) (Auto) 2 % (0-3) Basophils (%) (Auto) 1 % (0-3) Neutrophils # (Auto) 9.0 x10^3uL (1.8-7.7) Lymphocytes # (Auto) 1.5 x10^3/uL (1.0-4.8) Monocytes # (Auto) 0.4 x10^3/uL (0.0-1.1) Eosinophils # (Auto) 0.2 x10^3/uL (0.0-0.7) Basophils # (Auto) 0.1 x10^3/uL (0.0-0.2) Sodium Level 137 mmol/L (136-145) Potassium Level 3.8 mmol/L (3.5-5.1) Chloride Level 98 mmol/L (98-107) Carbon Dioxide Level 33 mmol/L (21-32) Anion Gap 6 (6-14) Blood Urea Nitrogen 14 mg/dL (7-20) Creatinine 0.8 mg/dL (0.6-1.0) Estimated GFR (Cockcroft-Gault) 84.2 Glucose Level 179 mg/dL (70-99) Calcium Level 9.7 mg/dL (8.5-10.1) Vancomycin Level Trough 13.3 mcg/mL (10.0-20.0) Vancomycin Last Dose Date 01/15/19 Vancomycin Last Dose Time 1999 Medications Active Scripts Medications Dose Route/Sig Max Daily Dose Days Date Category Percocet 7.5-325 Mg Tablet (Oxycodone/Acetaminophen) 1 Each Tablet 1 Tab PO QID PRN MDD 1 12/09/18 Rx FENTANYL 50mcg/hr (Fentanyl) 1 Each Patch.td72 1 Patch TP Q3DAYS MDD 1 12/09/18 Rx Albuterol Sulfate Neb Soln (Albuterol Sulfate) 0.63 Mg/3 Ml Vial.neb 1 Vial NEB QID 12/02/18 Reported Gabapentin (Gabapentin) 300 Mg Capsule 300 Mg PO BID PRN 10/19/18 Reported Amlodipine Besylate 5 Mg Tablet 5 Mg PO DAILY 10/19/18 Reported Culturelle (Lactobacillus Rhamnosus Gg) 1 Each Cap.sprink 1 Cap PO BID 30 07/07/17 Rx Pantoprazole Sodium 40 Mg Tablet.dr 40 Mg PEG BID 03/11/17 Reported Donepezil Hcl 5 Mg Tablet 5 Mg PEG BID 03/11/17 Reported Reglan (Metoclopramide Hcl) 10 Mg Tablet 5 Mg PO QIDACHS 03/11/17 Reported Cyproheptadine Hcl 2 Mg/5 Ml Syrup 10 Ml PEG TID 03/11/17 Reported Ondansetron Odt (Ondansetron) 4 Mg Tab.rapdis 4 Mg PEG QIDPRN PRN 06/19/14 Reported Impression . 1. Acute on chronic hypoxic respiratory failure secondary to new left upper lobe pneumonia. likely aspiration 2. Abnormal chest x-ray consistent with left upper lobe consolidation. 3. 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 4. Dysphagia. 5. History of lung cancer and laryngeal cancer, status post tracheostomy and chronic hypoxic respiratory failure. Many of her past admission with hypoxia are associated with having no oxygen through the trach. 6. emesis per PCP Plan . 1. Continue broad-spectrum antibiotics as recommended by Infectious Disease. 2. Follow sputum cultures. 3. Follow white cell count. She had initial marked leukocytosis. 4. Continue bronchodilators. 5. P.r.n. trach suction.CHECK CULTURES 6. Follow up chest x-ray in am 7. Discuss with MARY YO MD January 16, 2019 11:47
[2019-01-16] MEDS: VANCOMYCIN 1 GM in IV NORMAL SALINE 250ML 250 ML IV SCH (12:07)
[2019-01-16] MEDS ORDERED: ALTEPLASE 1MG SYRINGE. INT CAT ONE (13:15)
--- NOTE | 2019-01-16 14:10 | PDOC ---
PROGRESS NOTES Chief Complaint Chief Complaint HCAP sepsis Acute on chronic hypercapnic respiratory failure Chronic dysphagia, chronically PEG on tube feeds Hx of lung cancer and laryngeal cancer - s/p trach, stable HTN History of Present Illness History of Present Illness looks more comfortable port not working, RN will replace, CXR today cont current Discussed with Nurse Vitals Vitals Vital Signs Date Time Temp Pulse Resp B/P (MAP) Pulse Ox O2 Delivery O2 Flow Rate FiO2 01/16/19 12:10 98 Tracheal Collar 10.0 01/16/19 11:00 98.9 104 20 164/79 (107) 98.9 Physical Exam Physical Exam GENERAL: Propped up in bed, alert, HEENT: Oral cavity clear NECK: Supple, no JVP, no lymphadenopathy. LUNGS: Diminished aeration, congested HEART: S1, S2 regular. ABDOMEN: Soft, nontender, PEG EXTREMITIES: No edema or cyanosis. SKIN: No rash NEUROLOGIC: Alert, responds appropriately Port clean General: Alert, Cooperative, No acute distress Lungs: Crackles Abdomen: Normal bowel sounds, Soft, No tenderness, No hepatosplenomegaly, No masses, Other (PEG site clean) Extremities: No clubbing, No cyanosis, No edema, Normal pulses, No tenderness/swelling Skin: No rashes, No breakdown, No significant lesion Labs LABS Laboratory Tests Test 01/16/19 10:00 White Blood Count 11.1 x10^3/uL (4.0-11.0) Red Blood Count 4.80 x10^6/uL (3.50-5.40) Hemoglobin 10.0 g/dL (12.0-15.5) Hematocrit 34.1 % (36.0-47.0) Mean Corpuscular Volume 71 fL (79-100) Mean Corpuscular Hemoglobin 21 pg (25-35) Mean Corpuscular Hemoglobin Concent 29 g/dL (31-37) Red Cell Distribution Width 19.0 % (11.5-14.5) Platelet Count 624 x10^3/uL (140-400) Neutrophils (%) (Auto) 81 % (31-73) Lymphocytes (%) (Auto) 14 % (24-48) Monocytes (%) (Auto) 3 % (0-9) Eosinophils (%) (Auto) 2 % (0-3) Basophils (%) (Auto) 1 % (0-3) Neutrophils # (Auto) 9.0 x10^3uL (1.8-7.7) Lymphocytes # (Auto) 1.5 x10^3/uL (1.0-4.8) Monocytes # (Auto) 0.4 x10^3/uL (0.0-1.1) Eosinophils # (Auto) 0.2 x10^3/uL (0.0-0.7) Basophils # (Auto) 0.1 x10^3/uL (0.0-0.2) Sodium Level 137 mmol/L (136-145) Potassium Level 3.8 mmol/L (3.5-5.1) Chloride Level 98 mmol/L (98-107) Carbon Dioxide Level 33 mmol/L (21-32) Anion Gap 6 (6-14) Blood Urea Nitrogen 14 mg/dL (7-20) Creatinine 0.8 mg/dL (0.6-1.0) Estimated GFR (Cockcroft-Gault) 84.2 Glucose Level 179 mg/dL (70-99) Calcium Level 9.7 mg/dL (8.5-10.1) Vancomycin Level Trough 13.3 mcg/mL (10.0-20.0) Vancomycin Last Dose Date 01/15/19 Vancomycin Last Dose Time 1999 Assessment and Plan Assessmemt and Plan Problems Medical Problems: (1) Dyspnea Status: Acute Comment Review of Relevant I have reviewed the following items miko (where applicable) has been applied. Labs Laboratory Tests Test 01/14/19 17:40 01/15/19 04:30 01/16/19 10:00 Iron Level 10 ug/dL (50-170) Total Iron Binding Capacity 277 ug/dL (250-450) Iron Saturation 4 % (15-34) Ferritin 75 ng/mL (8-252) Vitamin B12 Level 1660 pg/mL (247-911) Vancomycin Level Trough 5.6 mcg/mL (10.0-20.0) 13.3 mcg/mL (10.0-20.0) Vancomycin Last Dose Date Unk 01/15/19 Vancomycin Last Dose Time Un1999 White Blood Count 12.4 x10^3/uL (4.0-11.0) 11.1 x10^3/uL (4.0-11.0) Red Blood Count 4.11 x10^6/uL (3.50-5.40) 4.80 x10^6/uL (3.50-5.40) Hemoglobin 8.5 g/dL (12.0-15.5) 10.0 g/dL (12.0-15.5) Hematocrit 29.5 % (36.0-47.0) 34.1 % (36.0-47.0) Mean Corpuscular Volume 72 fL (79-100) 71 fL (79-100) Mean Corpuscular Hemoglobin 21 pg (25-35) 21 pg (25-35) Mean Corpuscular Hemoglobin Concent 29 g/dL (31-37) 29 g/dL (31-37) Red Cell Distribution Width 19.0 % (11.5-14.5) 19.0 % (11.5-14.5) Platelet Count 490 x10^3/uL (140-400) 624 x10^3/uL (140-400) Neutrophils (%) (Auto) 77 % (31-73) 81 % (31-73) Lymphocytes (%) (Auto) 16 % (24-48) 14 % (24-48) Monocytes (%) (Auto) 4 % (0-9) 3 % (0-9) Eosinophils (%) (Auto) 2 % (0-3) 2 % (0-3) Basophils (%) (Auto) 1 % (0-3) 1 % (0-3) Neutrophils # (Auto) 9.6 x10^3uL (1.8-7.7) 9.0 x10^3uL (1.8-7.7) Lymphocytes # (Auto) 2.0 x10^3/uL (1.0-4.8) 1.5 x10^3/uL (1.0-4.8) Monocytes # (Auto) 0.5 x10^3/uL (0.0-1.1) 0.4 x10^3/uL (0.0-1.1) Eosinophils # (Auto) 0.3 x10^3/uL (0.0-0.7) 0.2 x10^3/uL (0.0-0.7) Basophils # (Auto) 0.1 x10^3/uL (0.0-0.2) 0.1 x10^3/uL (0.0-0.2) Sodium Level 140 mmol/L (136-145) 137 mmol/L (136-145) Potassium Level 4.2 mmol/L (3.5-5.1) 3.8 mmol/L (3.5-5.1) Chloride Level 102 mmol/L (98-107) 98 mmol/L (98-107) Carbon Dioxide Level 31 mmol/L (21-32) 33 mmol/L (21-32) Anion Gap 7 (6-14) 6 (6-14) Blood Urea Nitrogen 10 mg/dL (7-20) 14 mg/dL (7-20) Creatinine 0.7 mg/dL (0.6-1.0) 0.8 mg/dL (0.6-1.0) Estimated GFR (Cockcroft-Gault) 98.2 84.2 Glucose Level 85 mg/dL (70-99) 179 mg/dL (70-99) Calcium Level 9.3 mg/dL (8.5-10.1) 9.7 mg/dL (8.5-10.1) Laboratory Tests Test 01/16/19 10:00 White Blood Count 11.1 x10^3/uL (4.0-11.0) Red Blood Count 4.80 x10^6/uL (3.50-5.40) Hemoglobin 10.0 g/dL (12.0-15.5) Hematocrit 34.1 % (36.0-47.0) Mean Corpuscular Volume 71 fL (79-100) Mean Corpuscular Hemoglobin 21 pg (25-35) Mean Corpuscular Hemoglobin Concent 29 g/dL (31-37) Red Cell Distribution Width 19.0 % (11.5-14.5) Platelet Count 624 x10^3/uL (140-400) Neutrophils (%) (Auto) 81 % (31-73) Lymphocytes (%) (Auto) 14 % (24-48) Monocytes (%) (Auto) 3 % (0-9) Eosinophils (%) (Auto) 2 % (0-3) Basophils (%) (Auto) 1 % (0-3) Neutrophils # (Auto) 9.0 x10^3uL (1.8-7.7) Lymphocytes # (Auto) 1.5 x10^3/uL (1.0-4.8) Monocytes # (Auto) 0.4 x10^3/uL (0.0-1.1) Eosinophils # (Auto) 0.2 x10^3/uL (0.0-0.7) Basophils # (Auto) 0.1 x10^3/uL (0.0-0.2) Sodium Level 137 mmol/L (136-145) Potassium Level 3.8 mmol/L (3.5-5.1) Chloride Level 98 mmol/L (98-107) Carbon Dioxide Level 33 mmol/L (21-32) Anion Gap 6 (6-14) Blood Urea Nitrogen 14 mg/dL (7-20) Creatinine 0.8 mg/dL (0.6-1.0) Estimated GFR (Cockcroft-Gault) 84.2 Glucose Level 179 mg/dL (70-99) Calcium Level 9.7 mg/dL (8.5-10.1) Vancomycin Level Trough 13.3 mcg/mL (10.0-20.0) Vancomycin Last Dose Date 01/15/19 Vancomycin Last Dose Time 1999 Microbiology 01/12/19 Blood Culture - Preliminary, Resulted NO GROWTH AFTER 3 DAYS 01/14/19 - Final, Resulted 01/14/19 - Final, Resulted 01/14/19 - Final, Resulted 01/14/19 - Final, Resulted 01/14/19 - Final, Resulted 01/14/19 Gram Stain Evaluation - Final, Resulted 01/14/19 Sputum Culture, Resulted Pending Medications Current Medications Albuterol/ Ipratropium (Duoneb) 3 ml 1X ONCE NEB Last administered on 01/12/19at 14:56; Start 01/12/19 at 14:30; Stop 01/12/19 at 14:35; Status DC Piperacillin Sod/ Tazobactam Sod (Zosyn Per Pharmacy) 1 each PRN DAILY PRN MC S EE COMMENTS; Start 01/12/19 at 16:15; Status Cancel Vancomycin HCl (Vanco Per Pharmacy) 1 each PRN DAILY PRN MC SEE COMMENTS Last administered on 01/16/19at 10:42; Start 01/12/19 at 16:15 Vancomycin HCl 1.25 gm/Sodium Chloride 250 ml @ 166.667 mls/hr 1X ONCE IV Last administered on 01/12/19 18:18; Start 01/12/19 at 16:15; Stop 01/12/19 at 17:44; Status DC Piperacillin Sod/ Tazobactam Sod 3.375 gm/Sodium Chloride 50 ml @ 100 mls/hr 1X ONCE IV Last administered on 01/12/19 17:28; Start 01/12/19 at 16:15; Stop 01/12/19 at 16:44; Status DC Oxycodone/ Acetaminophen (Percocet 5/325) 1 tab 1X ONCE PO Last administered on 01/12/19 18:18; Start 01/12/19 at 18:00; Stop 01/12/19 at 18:08; Status DC Fentanyl Citrate (Fentanyl 2ml Vial) 25 mcg PRN Q2HR PRN IV PAIN Last administered on 01/16/19 04:20; Start 01/12/19 at 18:30 Piperacillin Sod/ Tazobactam Sod 3.375 gm/Sodium Chloride 50 ml @ 100 mls/hr Q6HRS IV Last administered on 01/13/19 06:13; Start 01/13/19 at 00:00; Stop 01/13/19 at 11:26; Status DC Vancomycin HCl 750 mg/Sodium Chloride 250 ml @ 250 mls/hr Q24H IV Last administered on 01/13/19 17:11; Start 01/13/19 at 18:00; Stop 01/14/19 at 18:54; Status DC Vancomycin HCl (Vancomycin Trough Level) 1 each 1X ONCE MC Last administered on 01/14/19 17:30; Start 01/14/19 at 17:30; Stop 01/14/19 at 17:31; Status DC Amlodipine Besylate (Norvasc) 5 mg DAILY PO Last administered on 01/15/19 08:36 ; Start 01/13/19 at 09:00; Stop 01/15/19 at 20:49; Status DC Fentanyl (Duragesic 50mcg/ Hr Patch) 1 patch Q3DAYS TD ; Start 01/15/19 at 09:00; Status UNV Gabapentin (Neurontin) 300 mg BID PO Last administered on 01/16/19 08:29; Start 01/12/19 at 21:00 Lactobacillus Rhamnosus (Culturelle) 1 cap BID PO Last administered on 01/16/19 08:29; Start 01/12/19 at 21:00 Metoclopramide HCl (Reglan) 5 mg QIDACHS PO Last administered on 01/16/19 11:33; Start 01/12/19 at 21:00 Ondansetron HCl (Zofran Odt) 4 mg PRN Q6HRS PRN PEG NAUSEA/VOMITING; Start 01/12/19 at 19:45 Oxycodone/ Acetaminophen (Percocet 7.5/ 325) 1 tab PRN QID PRN PO MODERATE TO S EVERE PAIN Last administered on 01/16/19 06:40; Start 01/12/19 at 19:45 Non-Formulary Medication (Albuterol Sulfate (Albuterol Sulfate Neb Soln)) 1 vial QID NEB ; Start 01/12/19 at 21:00; Status UNV Cyproheptadine HCl (Periactin) 4 mg TID PEG Last administered on 01/16/19 13:26; Start 01/12/19 at 21:00 Donepezil HCl (Aricept) 5 mg BID PEG Last administered on 01/16/19 08:29; Start 01/13/19 at 09:00 Pantoprazole Sodium (PROTONIX VIAL for IV PUSH) 40 mg DAILYAC IVP ; Start 01/13/19 at 07:30; Status UNV Enoxaparin Sodium (Lovenox 40mg Syringe) 40 mg Q24H SQ Last administered on 01/15/19 20:54; Start 01/12/19 at 20:00 Albuterol Sulfate (Ventolin Neb Soln) 2.5 mg RTQID NEB Last administered on 01/16/19 12:10; Start 01/12/19 at 20:00 Lansoprazole (Prevacid) 30 mg DAILYAC PEG Last administered on 01/16/19 08:29; Start 01/13/19 at 07:30 Fentanyl (Duragesic 50mcg/ Hr Patch) 1 patch Q3DAYS TD Last administered on 01/15/19 08:37; Start 01/12/19 at 21:00 Ceftolozane/ Tazobactam 1500 mg/Sodium Chloride 100 ml @ 100 mls/hr Q8HRS IV Last administered on 01/16/19 13:26; Start 01/13/19 at 14:00 Polyethylene Glycol (miraLAX PACKET) 17 gm PRN BID PRN GT CONSTIPATION Last administered on 01/16/19 08:29; Start 01/13/19 at 12:45 Ondansetron HCl (Zofran) 4 mg PRN Q8HRS PRN IV NAUSEA/VOMITING Last administered on 01/15/19 08:55; Start 01/13/19 at 18:45 Vancomycin HCl 1 gm/Sodium Chloride 250 ml @ 250 mls/hr 1X ONCE IV Last administered on 01/14/19 20:01; Start 01/14/19 at 19:30; Stop 01/14/19 at 20:29; Status DC Vancomycin HCl 750 mg/Sodium Chloride 250 ml @ 250 mls/hr Q12H IV Last administered on 01/15/19 20:53; Start 01/15/19 at 08:00; Stop 01/16/19 at 10:34; Status DC Vancomycin HCl (Vancomycin Trough Level) 1 each 1X ONCE MC Last administered on 01/16/19at 07:30; Start 01/16/19 at 07:30; Stop 01/16/19 at 07:31; Status DC Amlodipine Besylate (Norvasc) 10 mg DAILY PO Last administered on 01/16/19 08:28; Start 01/16/19 at 09:00 Amlodipine Besylate (Norvasc) 5 mg 1X ONCE PO Last administered on 01/15/19 21:01; Start 01/15/19 at 21:00; Stop 01/15/19 at 21:01; Status DC Vancomycin HCl 1 gm/Sodium Chloride 250 ml @ 250 mls/hr Q12H IV Last administered on 01/16/19at 12:07; Start 01/16/19 at 11:00 Alteplase, Recombinant (Cathflo For Central Catheter Clearance) 1 mg 1X ONCE INT CAT ; Start 01/16/19 at 13:15; Stop 01/16/19 at 13:16; Status DC Active Scripts Active Percocet 7.5-325 Mg Tablet (Oxycodone/Acetaminophen) 1 Each Tablet 1 Tab PO QID PRN MDD 1 FENTANYL 50mcg/hr (Fentanyl) 1 Each Patch.td72 1 Patch TP Q3DAYS MDD 1 Culturelle (Lactobacillus Rhamnosus Gg) 1 Each Cap.sprink 1 Cap PO BID 30 Days Reported Albuterol Sulfate Neb Soln (Albuterol Sulfate) 0.63 Mg/3 Ml Vial.neb 1 Vial NEB QID Gabapentin (Gabapentin) 300 Mg Capsule 300 Mg PO BID PRN Amlodipine Besylate 5 Mg Tablet 5 Mg PO DAILY Pantoprazole Sodium 40 Mg Tablet.dr 40 Mg PEG BID Donepezil Hcl 5 Mg Tablet 5 Mg PEG BID Reglan (Metoclopramide Hcl) 10 Mg Tablet 5 Mg PO QIDACHS Cyproheptadine Hcl 2 Mg/5 Ml Syrup 10 Ml PEG TID Ondansetron Odt (Ondansetron) 4 Mg Tab.rapdis 4 Mg PEG QIDPRN PRN Vitals/I & O Vital Sign - Last 24 Hours 01/15/19 01/15/19 01/15/19 01/15/19 15:00 15:26 17:54 19:00 Temp 97.7 97.7 Pulse 99 Resp 17 B/P (MAP) 182/90 (120) Pulse Ox 100 100 O2 Delivery Room Air Tracheal Collar Tracheal Collar O2 Flow Rate 10.0 10.0 01/15/19 01/15/19 01/15/19 01/15/19 19:40 20:00 20:21 21:01 Temp 98.3 98.3 Pulse 106 109 Resp 20 B/P (MAP) 191/94 (126) 196/102 Pulse Ox 92 90 O2 Delivery Room Air Trach Collar O2 Flow Rate 10.0 10.0 01/15/19 01/15/19 01/15/19 01/16/19 21:33 22:18 22:19 00:05 Pulse 102 B/P (MAP) 179/83 (115) Pulse Ox 90 90 O2 Delivery Tracheal Collar Tracheal Collar Tracheal Collar O2 Flow Rate 10.0 10.0 01/16/19 01/16/19 01/16/19 01/16/19 03:10 04:20 04:50 06:40 Temp 98.2 98.2 Pulse 110 Resp 20 B/P (MAP) 177/86 (116) Pulse Ox 92 90 90 90 O2 Delivery Room Air O2 Flow Rate 10.0 10.0 10.0 01/16/19 01/16/19 01/16/19 01/16/19 07:00 07:40 08:00 08:03 Temp 97.8 97.8 Pulse 105 Resp 20 B/P (MAP) 177/89 (118) Pulse Ox 100 97 97 O2 Delivery Tracheal Collar Trach Collar Tracheal Collar O2 Flow Rate 10.0 10.0 10.0 01/16/19 01/16/19 01/16/19 08:28 11:00 12:10 Temp 98.9 98.9 Pulse 105 104 Resp 20 B/P (MAP) 177/89 164/79 (107) Pulse Ox 100 98 O2 Delivery Tracheal Collar Tracheal Collar O2 Flow Rate 10.0 Intake and Output 01/15/19 01/15/19 01/16/19 15:00 23:00 07:00 Intake Total 1337 ml 1630 ml 0 ml Output Total 700 ml 650 ml Balance 637 ml 980 ml 0 ml Nutrition Consultation Dietary Evaluation: Comments: Continue with TF order Expected Outcomes/Goals: TF tolerance Malnutrition Findings: Body Fat Depletion (Non Severe: Mild Depletion Weight Status: Underweight RUDDY QUEZADA MD January 16, 2019 14:10
--- NOTE | 2019-01-16 14:48 | PDOC ---
PROGRESS NOTES Subjective Subjective HPI - f/u of anemia ROS - no fever Objective Objective Vital Signs Date Time Temp Pulse Resp B/P (MAP) Pulse Ox O2 Delivery O2 Flow Rate FiO2 01/16/19 12:10 98 Tracheal Collar 10.0 01/16/19 11:00 98.9 104 20 164/79 (107) 98.9 Intake and Output 01/16/19 07:00 Intake Total 2967 ml Output Total 1350 ml Balance 1617 ml Intake Oral 0 ml IV Total 600 ml Tube Feeding 2367 ml Output Urine Total 1350 ml Gastric Drainage Total 0 ml # Voids 5 Physical Exam General: No acute distress Neck: No JVD Assessment Assessment Problems Medical Problems: (1) Dyspnea Status: Acute IMPRESSION AND PLAN: 1. Laryngeal cancer diagnosed on 07/23/2015 status post tracheostomy and status post radiation therapy along with cetuximab with no evidence of recurrent disease. 2. 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 3. 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 4. Anemia, which I suspect is due to chronic disease. She has had multiple bouts of pneumonia requiring hospitalization and antibiotics. Iron studies are consistent with anemia due to chronic disease. Hb now 10.0 5. Pneumonia. Appreciate Infectious Disease and Pulmonary management. Comment Review of Relevant I have reviewed the following items miko (where applicable) has been applied. Labs Laboratory Tests Test 01/14/19 17:40 01/15/19 04:30 01/16/19 10:00 Iron Level 10 ug/dL (50-170) Total Iron Binding Capacity 277 ug/dL (250-450) Iron Saturation 4 % (15-34) Ferritin 75 ng/mL (8-252) Vitamin B12 Level 1660 pg/mL (247-911) Vancomycin Level Trough 5.6 mcg/mL (10.0-20.0) 13.3 mcg/mL (10.0-20.0) Vancomycin Last Dose Date Unk 01/15/19 Vancomycin Last Dose Time Unk 1999 White Blood Count 12.4 x10^3/uL (4.0-11.0) 11.1 x10^3/uL (4.0-11.0) Red Blood Count 4.11 x10^6/uL (3.50-5.40) 4.80 x10^6/uL (3.50-5.40) Hemoglobin 8.5 g/dL (12.0-15.5) 10.0 g/dL (12.0-15.5) Hematocrit 29.5 % (36.0-47.0) 34.1 % (36.0-47.0) Mean Corpuscular Volume 72 fL (79-100) 71 fL (79-100) Mean Corpuscular Hemoglobin 21 pg (25-35) 21 pg (25-35) Mean Corpuscular Hemoglobin Concent 29 g/dL (31-37) 29 g/dL (31-37) Red Cell Distribution Width 19.0 % (11.5-14.5) 19.0 % (11.5-14.5) Platelet Count 490 x10^3/uL (140-400) 624 x10^3/uL (140-400) Neutrophils (%) (Auto) 77 % (31-73) 81 % (31-73) Lymphocytes (%) (Auto) 16 % (24-48) 14 % (24-48) Monocytes (%) (Auto) 4 % (0-9) 3 % (0-9) Eosinophils (%) (Auto) 2 % (0-3) 2 % (0-3) Basophils (%) (Auto) 1 % (0-3) 1 % (0-3) Neutrophils # (Auto) 9.6 x10^3uL (1.8-7.7) 9.0 x10^3uL (1.8-7.7) Lymphocytes # (Auto) 2.0 x10^3/uL (1.0-4.8) 1.5 x10^3/uL (1.0-4.8) Monocytes # (Auto) 0.5 x10^3/uL (0.0-1.1) 0.4 x10^3/uL (0.0-1.1) Eosinophils # (Auto) 0.3 x10^3/uL (0.0-0.7) 0.2 x10^3/uL (0.0-0.7) Basophils # (Auto) 0.1 x10^3/uL (0.0-0.2) 0.1 x10^3/uL (0.0-0.2) Sodium Level 140 mmol/L (136-145) 137 mmol/L (136-145) Potassium Level 4.2 mmol/L (3.5-5.1) 3.8 mmol/L (3.5-5.1) Chloride Level 102 mmol/L (98-107) 98 mmol/L (98-107) Carbon Dioxide Level 31 mmol/L (21-32) 33 mmol/L (21-32) Anion Gap 7 (6-14) 6 (6-14) Blood Urea Nitrogen 10 mg/dL (7-20) 14 mg/dL (7-20) Creatinine 0.7 mg/dL (0.6-1.0) 0.8 mg/dL (0.6-1.0) Estimated GFR (Cockcroft-Gault) 98.2 84.2 Glucose Level 85 mg/dL (70-99) 179 mg/dL (70-99) Calcium Level 9.3 mg/dL (8.5-10.1) 9.7 mg/dL (8.5-10.1) Laboratory Tests Test 01/16/19 10:00 White Blood Count 11.1 x10^3/uL (4.0-11.0) Red Blood Count 4.80 x10^6/uL (3.50-5.40) Hemoglobin 10.0 g/dL (12.0-15.5) Hematocrit 34.1 % (36.0-47.0) Mean Corpuscular Volume 71 fL (79-100) Mean Corpuscular Hemoglobin 21 pg (25-35) Mean Corpuscular Hemoglobin Concent 29 g/dL (31-37) Red Cell Distribution Width 19.0 % (11.5-14.5) Platelet Count 624 x10^3/uL (140-400) Neutrophils (%) (Auto) 81 % (31-73) Lymphocytes (%) (Auto) 14 % (24-48) Monocytes (%) (Auto) 3 % (0-9) Eosinophils (%) (Auto) 2 % (0-3) Basophils (%) (Auto) 1 % (0-3) Neutrophils # (Auto) 9.0 x10^3uL (1.8-7.7) Lymphocytes # (Auto) 1.5 x10^3/uL (1.0-4.8) Monocytes # (Auto) 0.4 x10^3/uL (0.0-1.1) Eosinophils # (Auto) 0.2 x10^3/uL (0.0-0.7) Basophils # (Auto) 0.1 x10^3/uL (0.0-0.2) Sodium Level 137 mmol/L (136-145) Potassium Level 3.8 mmol/L (3.5-5.1) Chloride Level 98 mmol/L (98-107) Carbon Dioxide Level 33 mmol/L (21-32) Anion Gap 6 (6-14) Blood Urea Nitrogen 14 mg/dL (7-20) Creatinine 0.8 mg/dL (0.6-1.0) Estimated GFR (Cockcroft-Gault) 84.2 Glucose Level 179 mg/dL (70-99) Calcium Level 9.7 mg/dL (8.5-10.1) Vancomycin Level Trough 13.3 mcg/mL (10.0-20.0) Vancomycin Last Dose Date 01/15/19 Vancomycin Last Dose Time 1999 Microbiology 01/12/19 Blood Culture - Preliminary, Resulted NO GROWTH AFTER 3 DAYS 01/14/19 - Final, Resulted 01/14/19 - Final, Resulted 01/14/19 - Final, Resulted 01/14/19 - Final, Resulted 01/14/19 - Final, Resulted 01/14/19 Gram Stain Evaluation - Final, Resulted 01/14/19 Sputum Culture, Resulted Pending Medications Current Medications Albuterol/ Ipratropium (Duoneb) 3 ml 1X ONCE NEB Last administered on 01/12/19at 14:56; Start 01/12/19 at 14:30; Stop 01/12/19 at 14:35; Status DC Piperacillin Sod/ Tazobactam Sod (Zosyn Per Pharmacy) 1 each PRN DAILY PRN MC SEE COMMENTS; Start 01/12/19 at 16:15; Status Cancel Vancomycin HCl (Vanco Per Pharmacy) 1 each PRN DAILY PRN MC SEE COMMENTS Last administered on 01/16/19at 10:42; Start 01/12/19 at 16:15 Vancomycin HCl 1.25 gm/Sodium Chloride 250 ml @ 166.667 mls/hr 1X ONCE IV Last administered on 01/12/19 18:18; Start 01/12/19 at 16:15; Stop 01/12/19 at 17:44; Status DC Piperacillin Sod/ Tazobactam Sod 3.375 gm/Sodium Chloride 50 ml @ 100 mls/hr 1X ONCE IV Last administered on 01/12/19at 17:28; Start 01/12/19 at 16:15; Stop 01/12/19 at 16:44; Status DC Oxycodone/ Acetaminophen (Percocet 5/325) 1 tab 1X ONCE PO Last administered on 01/12/19 18:18; Start 01/12/19 at 18:00; Stop 01/12/19 at 18:08; Status DC Fentanyl Citrate (Fentanyl 2ml Vial) 25 mcg PRN Q2HR PRN IV PAIN Last administered on 01/16/19 04:20; Start 01/12/19 at 18:30 Piperacillin Sod/ Tazobactam Sod 3.375 gm/Sodium Chloride 50 ml @ 100 mls/hr Q6HRS IV Last administered on 01/13/19at 06:13; Start 01/13/19 at 00:00; Stop 01/13/19 at 11:26; Status DC Vancomycin HCl 750 mg/Sodium Chloride 250 ml @ 250 mls/hr Q24H IV Last administered on 01/13/19 17:11; Start 01/13/19 at 18:00; Stop 01/14/19 at 18:54; Status DC Vancomycin HCl (Vancomycin Trough Level) 1 each 1X ONCE MC Last administered on 01/14/19at 17:30; Start 01/14/19 at 17:30; Stop 01/14/19 at 17:31; Status DC Amlodipine Besylate (Norvasc) 5 mg DAILY PO Last administered on 01/15/19 08:36; Start 01/13/19 at 09:00; Stop 01/15/19 at 20:49; Status DC Fentanyl (Duragesic 50mcg/ Hr Patch) 1 patch Q3DAYS TD ; Start 01/15/19 at 09:00; Status UNV Gabapentin (Neurontin) 300 mg BID PO Last administered on 01/16/19at 08:29; Start 01/12/19 at 21:00 Lactobacillus Rhamnosus (Culturelle) 1 cap BID PO Last administered on 01/16/19 08:29; Start 01/12/19 at 21:00 Metoclopramide HCl (Reglan) 5 mg QIDACHS PO Last administered on 01/16/19 11:33; Start 01/12/19 at 21:00 Ondansetron HCl (Zofran Odt) 4 mg PRN Q6HRS PRN PEG NAUSEA/VOMITING; Start 01/12/19 at 19:45 Oxycodone/ Acetaminophen (Percocet 7.5/ 325) 1 tab PRN QID PRN PO MODERATE TO SEVERE PAIN Last administered on 01/16/19 06:40; Start 01/12/19 at 19:45 Non-Formulary Medication (Albuterol Sulfate (Albuterol Sulfate Neb Soln)) 1 vial QID NEB ; Start 01/12/19 at 21:00; Status UNV Cyproheptadine HCl (Periactin) 4 mg TID PEG Last administered on 01/16/19 13:26; Start 01/12/19 at 21:00 Donepezil HCl (Aricept) 5 mg BID PEG Last administered on 01/16/19 08:29; Start 01/13/19 at 09:00 Pantoprazole Sodium (PROTONIX VIAL for IV PUSH) 40 mg DAILYAC IVP ; Start 01/13/19 at 07:30; Status UNV Enoxaparin Sodium (Lovenox 40mg Syringe) 40 mg Q24H SQ Last administered on 01/15/19 20:54; Start 01/12/19 at 20:00 Albuterol Sulfate (Ventolin Neb Soln) 2.5 mg RTQID NEB Last administered on 01/16/19 12:10; Start 01/12/19 at 20:00 Lansoprazole (Prevacid) 30 mg DAILYAC PEG Last administered on 01/16/19 08:29; Start 01/13/19 at 07:30 Fentanyl (Duragesic 50mcg/ Hr Patch) 1 patch Q3DAYS TD Last administered on 01/15/19 08:37; Start 01/12/19 at 21:00 Ceftolozane/ Tazobactam 1500 mg/Sodium Chloride 100 ml @ 100 mls/hr Q8HRS IV Last administered on 5/5/19at 13:26; Start 01/13/19 at 14:00 Polyethylene Glycol (miraLAX PACKET) 17 gm PRN BID PRN GT CONSTIPATION Last administered on 01/16/19 08:29; Start 01/13/19 at 12:45 Ondansetron HCl (Zofran) 4 mg PRN Q8HRS PRN IV NAUSEA/VOMITING Last administered on 01/15/19 08:55; Start 01/13/19 at 18:45 Vancomycin HCl 1 gm/Sodium Chloride 250 ml @ 250 mls/hr 1X ONCE IV Last administered on 01/14/19 20:01; Start 01/14/19 at 19:30; Stop 01/14/19 at 20:29; Status DC Vancomycin HCl 750 mg/Sodium Chloride 250 ml @ 250 mls/hr Q12H IV Last administered on 01/15/19 20:53; Start 01/15/19 at 08:00; Stop 01/16/19 at 10:34; Status DC Vancomycin HCl (Vancomycin Trough Level) 1 each 1X ONCE MC Last administered on 01/16/19at 07:30; Start 01/16/19 at 07:30; Stop 01/16/19 at 07:31; Status DC Amlodipine Besylate (Norvasc) 10 mg DAILY PO Last administered on 01/16/19 08:28; Start 01/16/19 at 09:00 Amlodipine Besylate (Norvasc) 5 mg 1X ONCE PO Last administered on 01/15/19 21:01; Start 01/15/19 at 21:00; Stop 01/15/19 at 21:01; Status DC Vancomycin HCl 1 gm/Sodium Chloride 250 ml @ 250 mls/hr Q12H IV Last administered on 01/16/19at 12:07; Start 01/16/19 at 11:00 Alteplase, Recombinant (Cathflo For Central Catheter Clearance) 1 mg 1X ONCE INT CAT ; Start 01/16/19 at 13:15; Stop 01/16/19 at 13:16; Status DC Active Scripts Active Percocet 7.5-325 Mg Tablet (Oxycodone/Acetaminophen) 1 Each Tablet 1 Tab PO QID PRN MDD 1 FENTANYL 50mcg/hr (Fentanyl) 1 Each Patch.td72 1 Patch TP Q3DAYS MDD 1 Culturelle (Lactobacillus Rhamnosus Gg) 1 Each Cap.sprink 1 Cap PO BID 30 Days Reported Albuterol Sulfate Neb Soln (Albuterol Sulfate) 0.63 Mg/3 Ml Vial.neb 1 Vial NEB QID Gabapentin (Gabapentin) 300 Mg Capsule 300 Mg PO BID PRN Amlodipine Besylate 5 Mg Tablet 5 Mg PO DAILY Pantoprazole Sodium 40 Mg Tablet.dr 40 Mg PEG BID Donepezil Hcl 5 Mg Tablet 5 Mg PEG BID Reglan (Metoclopramide Hcl) 10 Mg Tablet 5 Mg PO QIDACHS Cyproheptadine Hcl 2 Mg/5 Ml Syrup 10 Ml PEG TID Ondansetron Odt (Ondansetron) 4 Mg Tab.rapdis 4 Mg PEG QIDPRN PRN Vitals/I & O Vital Sign - Last 24 Hours 01/15/19 01/15/19 01/15/19 01/15/19 15:00 15:26 17:54 19:00 Temp 97.7 97.7 Pulse 99 Resp 17 B/P (MAP) 182/90 (120) Pulse Ox 100 100 O2 Delivery Room Air Tracheal Collar Tracheal Collar O2 Flow Rate 10.0 10.0 01/15/19 01/15/19 01/15/19 01/15/19 19:40 20:00 20:21 21:01 Temp 98.3 98.3 Pulse 106 109 Resp 20 B/P (MAP) 191/94 (126) 196/102 Pulse Ox 92 90 O2 Delivery Room Air Trach Collar O2 Flow Rate 10.0 10.0 01/15/19 01/15/19 01/15/19 01/16/19 21:33 22:18 22:19 00:05 Pulse 102 B/P (MAP) 179/83 (115) Pulse Ox 90 90 O2 Delivery Tracheal Collar Tracheal Collar Tracheal Collar O2 Flow Rate 10.0 10.0 01/16/19 01/16/19 01/16/19 01/16/19 03:10 04:20 04:50 06:40 Temp 98.2 98.2 Pulse 110 Resp 20 B/P (MAP) 177/86 (116) Pulse Ox 92 90 90 90 O2 Delivery Room Air O2 Flow Rate 10.0 10.0 10.0 01/16/19 01/16/19 01/16/19 01/16/19 07:00 07:40 08:00 08:03 Temp 97.8 97.8 Pulse 105 Resp 20 B/P (MAP) 177/89 (118) Pulse Ox 100 97 97 O2 Delivery Tracheal Collar Trach Collar Tracheal Collar O2 Flow Rate 10.0 10.0 10.0 01/16/19 01/16/19 01/16/19 08:28 11:00 12:10 Temp 98.9 98.9 Pulse 105 104 Resp 20 B/P (MAP) 177/89 164/79 (107) Pulse Ox 100 98 O2 Delivery Tracheal Collar Tracheal Collar O2 Flow Rate 10.0 Intake and Output 01/15/19 01/15/19 01/16/19 15:00 23:00 07:00 Intake Total 1337 ml 1630 ml 0 ml Output Total 700 ml 650 ml Balance 637 ml 980 ml 0 ml Nutrition Consultation Dietary Evaluation: Comments: Continue with TF order Expected Outcomes/Goals: TF tolerance Malnutrition Findings: Body Fat Depletion (Non Severe: Mild Depletion Weight Status: Underweight BRIJESH JARAMILLO MD January 16, 2019 14:48
[2019-01-16 15:00] VITALS: BP 166/80
[2019-01-16] MEDS: ONDANSETRON PF 4 MG/2 ML VIAL. IV PRN (15:00)
[2019-01-16 19:56] VITALS: BP 154/72
[2019-01-16] MEDS: ENOXAPARIN 40 MG/0.4 ML SYRINGE. SQ SCH (22:08)
[2019-01-16 23:15] VITALS: BP 115/67
[2019-01-17] MEDS: VANCOMYCIN 1 GM in IV NORMAL SALINE 250ML 250 ML IV SCH ×2 (00:08→11:54)
[2019-01-17 03:30] VITALS: BP 177/64
[2019-01-17] MEDS: CEFTOLOZANE/TAZOBACTAM 1,500 MG in IV NORMAL SALINE 100ML 100 ML IV SCH ×3 (05:28→21:30)
[2019-01-17] MEDS: oxyCODONE/APAP 7.5/325 1 TAB TABLET PO PRN ×3 (05:28→19:04)
[2019-01-17 05:54] LABS: BASO # 0.1 x10^3/uL (0.0-0.2); BASO % 1 % (0-3); EOS # 0.2 x10^3/uL (0.0-0.7); EOS % 2 % (0-3); HEMATOCRIT 29.5 % (36.0-47.0); HEMOGLOBIN 8.6 g/dL (12.0-15.5); LYMPH % 17 % (24-48); MEAN CORPUSCULAR HEMOGLOBIN 21 pg (25-35); MEAN CORPUSCULAR HGB CONC 29 g/dL (31-37); MEAN CORPUSCULAR VOLUME 71 fL (79-100); MONO # 0.5 x10^3/uL (0.0-1.1); MONO % 5 % (0-9); NEUT # 8.6 x10^3uL (1.8-7.7); NEUT % 75 % (31-73); PLATELET COUNT 498 x10^3/uL (140-400); RED BLOOD COUNT 4.17 x10^6/uL (3.50-5.40); RED CELL DISTRIBUTION WIDTH 18.7 % (11.5-14.5); WHITE BLOOD COUNT 11.4 x10^3/uL (4.0-11.0)
[2019-01-17 06:12] LABS: CALCIUM 9.1 mg/dL (8.5-10.1); CREATININE 0.7 mg/dL (0.6-1.0); GFR 98.2
[2019-01-17 07:00] VITALS: BP 140/74
--- NOTE | 2019-01-17 07:59 | RAD ---
Portable chest, 01/17/2019: HISTORY: Pneumonia Comparison is made to a study from 01/16/2019. The right Port-A-Cath and tracheostomy tube are unchanged in positions. The heart is mildly enlarged. There are patchy bilateral pulmonary infiltrates which are unchanged. No significant pleural fluid is seen. No new abnormality is detected. IMPRESSION: No significant change since yesterday's exam. Electronically signed by: Jarret Gallegos MD (01/17/2019 7:56 AM) [facility]
[2019-01-17] MEDS: ALBUTEROL SULFATE 2.5 MG/3 ML NEBU. NEB SCH ×4 (08:44→20:50)
--- NOTE | 2019-01-17 08:58 | PDOC ---
Infectious Disease Note Subjective Subjective Resting, feels better less sob and cough less abdo discomfort No fevers Vital Sign Vital Signs Vital Signs Date Time Temp Pulse Resp B/P (MAP) Pulse Ox O2 Delivery O2 Flow Rate FiO2 01/17/19 07:00 98.4 91 18 140/74 (96) 100 Tracheal Collar 98.4 01/17/19 06:28 10.0 Physical Exam PHYSICAL EXAM GENERAL: Appears comfortable NECK: Trach shield LUNGS: Improved aeration, less congestion, nonlabored HEART: S1, S2 regular. ABDOMEN: Soft, PEG EXTREMITIES: No edema or cyanosis. SKIN: No rash NEUROLOGIC: Sleeping Port clean Labs Lab Laboratory Tests Test 01/16/19 10:00 01/17/19 05:30 White Blood Count 11.1 x10^3/uL (4.0-11.0) 11.4 x10^3/uL (4.0-11.0) Red Blood Count 4.80 x10^6/uL (3.50-5.40) 4.17 x10^6/uL (3.50-5.40) Hemoglobin 10.0 g/dL (12.0-15.5) 8.6 g/dL (12.0-15.5) Hematocrit 34.1 % (36.0-47.0) 29.5 % (36.0-47.0) Mean Corpuscular Volume 71 fL (79-100) 71 fL (79-100) Mean Corpuscular Hemoglobin 21 pg (25-35) 21 pg (25-35) Mean Corpuscular Hemoglobin Concent 29 g/dL (31-37) 29 g/dL (31-37) Red Cell Distribution Width 19.0 % (11.5-14.5) 18.7 % (11.5-14.5) Platelet Count 624 x10^3/uL (140-400) 498 x10^3/uL (140-400) Neutrophils (%) (Auto) 81 % (31-73) 75 % (31-73) Lymphocytes (%) (Auto) 14 % (24-48) 17 % (24-48) Monocytes (%) (Auto) 3 % (0-9) 5 % (0-9) Eosinophils (%) (Auto) 2 % (0-3) 2 % (0-3) Basophils (%) (Auto) 1 % (0-3) 1 % (0-3) Neutrophils # (Auto) 9.0 x10^3uL (1.8-7.7) 8.6 x10^3uL (1.8-7.7) Lymphocytes # (Auto) 1.5 x10^3/uL (1.0-4.8) 2.0 x10^3/uL (1.0-4.8) Monocytes # (Auto) 0.4 x10^3/uL (0.0-1.1) 0.5 x10^3/uL (0.0-1.1) Eosinophils # (Auto) 0.2 x10^3/uL (0.0-0.7) 0.2 x10^3/uL (0.0-0.7) Basophils # (Auto) 0.1 x10^3/uL (0.0-0.2) 0.1 x10^3/uL (0.0-0.2) Sodium Level 137 mmol/L (136-145) 139 mmol/L (136-145) Potassium Level 3.8 mmol/L (3.5-5.1) 4.0 mmol/L (3.5-5.1) Chloride Level 98 mmol/L (98-107) 100 mmol/L (98-107) Carbon Dioxide Level 33 mmol/L (21-32) 34 mmol/L (21-32) Anion Gap 6 (6-14) 5 (6-14) Blood Urea Nitrogen 14 mg/dL (7-20) 12 mg/dL (7-20) Creatinine 0.8 mg/dL (0.6-1.0) 0.7 mg/dL (0.6-1.0) Estimated GFR (Cockcroft-Gault) 84.2 98.2 Glucose Level 179 mg/dL (70-99) 88 mg/dL (70-99) Calcium Level 9.7 mg/dL (8.5-10.1) 9.1 mg/dL (8.5-10.1) Vancomycin Level Trough 13.3 mcg/mL (10.0-20.0) Vancomycin Last Dose Date 01/15/19 Vancomycin Last Dose Time 01/16. CXR 1. Right port catheter unchanged in position. The tip is within the superior cavoatrial junction or superior right atrium. 2. Complete to near complete resolution of previously demonstrated masslike consolidation within the left midlung. There is stable suspected partial consolidation involving the left lower lobe. 3. Stable suspected diffuse interstitial infiltrate. 01/17. CXR No significant change since yesterday's exam. Micro 01/12. BLD CULT RESULT 1 Final Staphylococcus hominis MICS are expressed in micrograms per mL Antibiotic RSLT#1 Ciprofloxacin S =1 Clindamycin S<=0.25 Erythromycin R>=8 Gentamicin S<=0.5 Levofloxacin S =0.25 Nitrofurantoin S<=16 Oxacillin R =1 Penicillin R>=0.5 Rifampin S<=0.5 Tetracycline R>=16 Trimethoprim/Sulfa R =80 Vancomycin S =1 SPUTUM SPUTUM CULT RES 2 Final Comment Routine respiratory jewell Objective Assessment GPC bacteremia 1 of 3 bottles, from 01/12, likely contaminate. Staph hominis Fever better Leukocytosis - trending down Hypoxia Pneumonia, sputum GS: GPC, GNR, GPR 01/14 cx N resp jewell h/o MDR PSA Plan Plan of Care DC Vanc cont zerbaxa Trough 13.3 Probiotics Monitor WBC/temp and renal function closely supportive care Patient seen, examined, I agree with above Assessment and plan by [employer]. RAISA VILLAR APRN January 17, 2019 08:58 ELIE MATOS MD January 17, 2019 13:41
--- NOTE | 2019-01-17 09:03 | PDOC ---
PROGRESS NOTES Subjective Subjective HPI -f/u of Anemia ROS - no fever Objective Objective Vital Signs Date Time Temp Pulse Resp B/P (MAP) Pulse Ox O2 Delivery O2 Flow Rate FiO2 01/17/19 07:00 98.4 91 18 140/74 (96) 100 Tracheal Collar 98.4 01/17/19 06:28 10.0 Intake and Output 01/17/19 07:00 Intake Total 2137 ml Output Total 0 ml Balance 2137 ml Intake Oral 0 ml Tube Feeding 1787 ml Blood Product IV Normal Saline Flush 350 ml Gastric Drainage Total 0 ml # Voids 2 Physical Exam General: No acute distress Neck: No JVD Assessment Assessment Problems Medical Problems: (1) Dyspnea Status: Acute IMPRESSION AND PLAN: 1. Laryngeal cancer diagnosed on 07/23/2015 status post tracheostomy and status post radiation therapy along with cetuximab with no evidence of recurrent disease. 2. 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 3. 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 4. Anemia, which I suspect is due to chronic disease. She has had multiple bouts of pneumonia requiring hospitalization and antibiotics. Iron studies are consistent with anemia due to chronic disease. Hb now 8.6 5. Pneumonia. Appreciate Infectious Disease and Pulmonary management. Comment Review of Relevant I have reviewed the following items miko (where applicable) has been applied. Labs Laboratory Tests Test 01/16/19 10:00 01/17/19 05:30 White Blood Count 11.1 x10^3/uL (4.0-11.0) 11.4 x10^3/uL (4.0-11.0) Red Blood Count 4.80 x10^6/uL (3.50-5.40) 4.17 x10^6/uL (3.50-5.40) Hemoglobin 10.0 g/dL (12.0-15.5) 8.6 g/dL (12.0-15.5) Hematocrit 34.1 % (36.0-47.0) 29.5 % (36.0-47.0) Mean Corpuscular Volume 71 fL (79-100) 71 fL (79-100) Mean Corpuscular Hemoglobin 21 pg (25-35) 21 pg (25-35) Mean Corpuscular Hemoglobin Concent 29 g/dL (31-37) 29 g/dL (31-37) Red Cell Distribution Width 19.0 % (11.5-14.5) 18.7 % (11.5-14.5) Platelet Count 624 x10^3/uL (140-400) 498 x10^3/uL (140-400) Neutrophils (%) (Auto) 81 % (31-73) 75 % (31-73) Lymphocytes (%) (Auto) 14 % (24-48) 17 % (24-48) Monocytes (%) (Auto) 3 % (0-9) 5 % (0-9) Eosinophils (%) (Auto) 2 % (0-3) 2 % (0-3) Basophils (%) (Auto) 1 % (0-3) 1 % (0-3) Neutrophils # (Auto) 9.0 x10^3uL (1.8-7.7) 8.6 x10^3uL (1.8-7.7) Lymphocytes # (Auto) 1.5 x10^3/uL (1.0-4.8) 2.0 x10^3/uL (1.0-4.8) Monocytes # (Auto) 0.4 x10^3/uL (0.0-1.1) 0.5 x10^3/uL (0.0-1.1) Eosinophils # (Auto) 0.2 x10^3/uL (0.0-0.7) 0.2 x10^3/uL (0.0-0.7) Basophils # (Auto) 0.1 x10^3/uL (0.0-0.2) 0.1 x10^3/uL (0.0-0.2) Sodium Level 137 mmol/L (136-145) 139 mmol/L (136-145) Potassium Level 3.8 mmol/L (3.5-5.1) 4.0 mmol/L (3.5-5.1) Chloride Level 98 mmol/L (98-107) 100 mmol/L (98-107) Carbon Dioxide Level 33 mmol/L (21-32) 34 mmol/L (21-32) Anion Gap 6 (6-14) 5 (6-14) Blood Urea Nitrogen 14 mg/dL (7-20) 12 mg/dL (7-20) Creatinine 0.8 mg/dL (0.6-1.0) 0.7 mg/dL (0.6-1.0) Estimated GFR (Cockcroft-Gault) 84.2 98.2 Glucose Level 179 mg/dL (70-99) 88 mg/dL (70-99) Calcium Level 9.7 mg/dL (8.5-10.1) 9.1 mg/dL (8.5-10.1) Vancomycin Level Trough 13.3 mcg/mL (10.0-20.0) Vancomycin Last Dose Date 01/15/19 Vancomycin Last Dose Time 1999 Laboratory Tests Test 01/16/19 10:00 01/17/19 05:30 White Blood Count 11.1 x10^3/uL (4.0-11.0) 11.4 x10^3/uL (4.0-11.0) Red Blood Count 4.80 x10^6/uL (3.50-5.40) 4.17 x10^6/uL (3.50-5.40) Hemoglobin 10.0 g/dL (12.0-15.5) 8.6 g/dL (12.0-15.5) Hematocrit 34.1 % (36.0-47.0) 29.5 % (36.0-47.0) Mean Corpuscular Volume 71 fL (79-100) 71 fL (79-100) Mean Corpuscular Hemoglobin 21 pg (25-35) 21 pg (25-35) Mean Corpuscular Hemoglobin Concent 29 g/dL (31-37) 29 g/dL (31-37) Red Cell Distribution Width 19.0 % (11.5-14.5) 18.7 % (11.5-14.5) Platelet Count 624 x10^3/uL (140-400) 498 x10^3/uL (140-400) Neutrophils (%) (Auto) 81 % (31-73) 75 % (31-73) Lymphocytes (%) (Auto) 14 % (24-48) 17 % (24-48) Monocytes (%) (Auto) 3 % (0-9) 5 % (0-9) Eosinophils (%) (Auto) 2 % (0-3) 2 % (0-3) Basophils (%) (Auto) 1 % (0-3) 1 % (0-3) Neutrophils # (Auto) 9.0 x10^3uL (1.8-7.7) 8.6 x10^3uL (1.8-7.7) Lymphocytes # (Auto) 1.5 x10^3/uL (1.0-4.8) 2.0 x10^3/uL (1.0-4.8) Monocytes # (Auto) 0.4 x10^3/uL (0.0-1.1) 0.5 x10^3/uL (0.0-1.1) Eosinophils # (Auto) 0.2 x10^3/uL (0.0-0.7) 0.2 x10^3/uL (0.0-0.7) Basophils # (Auto) 0.1 x10^3/uL (0.0-0.2) 0.1 x10^3/uL (0.0-0.2) Sodium Level 137 mmol/L (136-145) 139 mmol/L (136-145) Potassium Level 3.8 mmol/L (3.5-5.1) 4.0 mmol/L (3.5-5.1) Chloride Level 98 mmol/L (98-107) 100 mmol/L (98-107) Carbon Dioxide Level 33 mmol/L (21-32) 34 mmol/L (21-32) Anion Gap 6 (6-14) 5 (6-14) Blood Urea Nitrogen 14 mg/dL (7-20) 12 mg/dL (7-20) Creatinine 0.8 mg/dL (0.6-1.0) 0.7 mg/dL (0.6-1.0) Estimated GFR (Cockcroft-Gault) 84.2 98.2 Glucose Level 179 mg/dL (70-99) 88 mg/dL (70-99) Calcium Level 9.7 mg/dL (8.5-10.1) 9.1 mg/dL (8.5-10.1) Vancomycin Level Trough 13.3 mcg/mL (10.0-20.0) Vancomycin Last Dose Date 01/15/19 Vancomycin Last Dose Time 1999 Microbiology 01/12/19 Blood Culture - Preliminary, Resulted NO GROWTH AFTER 4 DAYS 01/14/19 - Final, Resulted 01/14/19 - Final, Resulted 01/14/19 - Final, Resulted 01/14/19 - Final, Resulted 01/14/19 - Final, Resulted 01/14/19 Gram Stain Evaluation - Final, Resulted 01/14/19 Sputum Culture - Preliminary, Resulted 01/14/19 Sputum Result 1 - Final, Resulted 01/14/19 Sputum Result 2 - Final, Resulted Medications Current Medications Albuterol/ Ipratropium (Duoneb) 3 ml 1X ONCE NEB Last administered on 01/12/19at 14:56; Start 01/12/19 at 14:30; Stop 01/12/19 at 14:35; Status DC Piperacillin Sod/ Tazobactam Sod (Zosyn Per Pharmacy) 1 each PRN DAILY PRN MC SEE COMMENTS; Start 01/12/19 at 16:15; Status Cancel Vancomycin HCl (Vanco Per Pharmacy) 1 each PRN DAILY PRN MC SEE COMMENTS Last administered on 01/16/19at 10:42; Start 01/12/19 at 16:15 Vancomycin HCl 1.25 gm/Sodium Chloride 250 ml @ 166.667 mls/hr 1X ONCE IV Last administered on 01/12/19at 18:18; Start 01/12/19 at 16:15; Stop 01/12/19 at 17:44; Status DC Piperacillin Sod/ Tazobactam Sod 3.375 gm/Sodium Chloride 50 ml @ 100 mls/hr 1X ONCE IV Last administered on 01/12/19at 17:28; Start 01/12/19 at 16:15; Stop 01/12/19 at 16:44; Status DC Oxycodone/ Acetaminophen (Percocet 5/325) 1 tab 1X ONCE PO Last administered on 01/12/19at 18:18; Start 01/12/19 at 18:00; Stop 01/12/19 at 18:08; Status DC Fentanyl Citrate (Fentanyl 2ml Vial) 25 mcg PRN Q2HR PRN IV PAIN Last administered on 01/16/19at 19:26; Start 01/12/19 at 18:30 Piperacillin Sod/ Tazobactam Sod 3.375 gm/Sodium Chloride 50 ml @ 100 mls/hr Q6HRS IV Last administered on 01/13/19 06:13; Start 01/13/19 at 00:00; Stop 01/13/19 at 11:26; Status DC Vancomycin HCl 750 mg/Sodium Chloride 250 ml @ 250 mls/hr Q24H IV Last administered on 01/13/19 17:11; Start 01/13/19 at 18:00; Stop 01/14/19 at 18:54; Status DC Vancomycin HCl (Vancomycin Trough Level) 1 each 1X ONCE MC Last administered on 01/14/19 17:30; Start 01/14/19 at 17:30; Stop 01/14/19 at 17:31; Status DC Amlodipine Besylate (Norvasc) 5 mg DAILY PO Last administered on 01/15/19 08:36; Start 01/13/19 at 09:00; Stop 01/15/19 at 20:49; Status DC Fentanyl (Duragesic 50mcg/ Hr Patch) 1 patch Q3DAYS TD ; Start 01/15/19 at 09:00; Status UNV Gabapentin (Neurontin) 300 mg BID PO Last administered on 01/16/19 22:09; Start 01/12/19 at 21:00 Lactobacillus Rhamnosus (Culturelle) 1 cap BID PO Last administered on 01/16/19 22:09; Start 01/12/19 at 21:00 Metoclopramide HCl (Reglan) 5 mg QIDACHS PO Last administered on 01/16/19 22:08; Start 01/12/19 at 21:00 Ondansetron HCl (Zofran Odt) 4 mg PRN Q6HRS PRN PEG NAUSEA/VOMITING Last administered on 01/16/19 19:14; Start 01/12/19 at 19:45 Oxycodone/ Acetaminophen (Percocet 7.5/ 325) 1 tab PRN QID PRN PO MODERATE TO SEVERE PAIN Last administered on 01/17/19 05:28; Start 01/12/19 at 19:45 Non-Formulary Medication (Albuterol Sulfate (Albuterol Sulfate Neb Soln)) 1 vial QID NEB ; Start 01/12/19 at 21:00; Status UNV Cyproheptadine HCl (Periactin) 4 mg TID PEG Last administered on 01/16/19 22:08; Start 01/12/19 at 21:00 Donepezil HCl (Aricept) 5 mg BID PEG Last administered on 01/16/19 22:09; Start 01/13/19 at 09:00 Pantoprazole Sodium (PROTONIX VIAL for IV PUSH) 40 mg DAILYAC IVP ; Start 01/13/19 at 07:30; Status UNV Enoxaparin Sodium (Lovenox 40mg Syringe) 40 mg Q24H SQ Last administered on 01/16/19 22:08; Start 01/12/19 at 20:00 Albuterol Sulfate (Ventolin Neb Soln) 2.5 mg RTQID NEB Last administered on 01/17/19 08:44; Start 01/12/19 at 20:00 Lansoprazole (Prevacid) 30 mg DAILYAC PEG Last administered on 01/16/19 08:29; Start 01/13/19 at 07:30 Fentanyl (Duragesic 50mcg/ Hr Patch) 1 patch Q3DAYS TD Last administered on 01/15/19 08:37; Start 01/12/19 at 21:00 Ceftolozane/ Tazobactam 1500 mg/Sodium Chloride 100 ml @ 100 mls/hr Q8HRS IV Last administered on 01/17/19 05:28; Start 01/13/19 at 14:00 Polyethylene Glycol (miraLAX PACKET) 17 gm PRN BID PRN GT CONSTIPATION Last administered on 01/16/19 08:29; Start 01/13/19 at 12:45 Ondansetron HCl (Zofran) 4 mg PRN Q8HRS PRN IV NAUSEA/VOMITING Last administered on 01/16/19 15:00; Start 01/13/19 at 18:45 Vancomycin HCl 1 gm/Sodium Chloride 250 ml @ 250 mls/hr 1X ONCE IV Last administered on 01/14/19 20:01; Start 01/14/19 at 19:30; Stop 01/14/19 at 20:29; Status DC Vancomycin HCl 750 mg/Sodium Chloride 250 ml @ 250 mls/hr Q12H IV Last administered on 01/15/19 20:53; Start 01/15/19 at 08:00; Stop 01/16/19 at 10:34; Status DC Vancomycin HCl (Vancomycin Trough Level) 1 each 1X ONCE MC Last administered on 01/16/19at 07:30; Start 01/16/19 at 07:30; Stop 01/16/19 at 07:31; Status DC Amlodipine Besylate (Norvasc) 10 mg DAILY PO Last administered on 01/16/19at 08:28; Start 01/16/19 at 09:00 Amlodipine Besylate (Norvasc) 5 mg 1X ONCE PO Last administered on 01/15/19at 21:01; Start 01/15/19 at 21:00; Stop 01/15/19 at 21:01; Status DC Vancomycin HCl 1 gm/Sodium Chloride 250 ml @ 250 mls/hr Q12H IV Last administered on 01/17/19at 00:08; Start 01/16/19 at 11:00 Alteplase, Recombinant (Cathflo For Central Catheter Clearance) 1 mg 1X ONCE INT CAT Last administered on 01/16/19at 16:01; Start 01/16/19 at 13:15; Stop 01/16/19 at 13:16; Status DC Active Scripts Active Percocet 7.5-325 Mg Tablet (Oxycodone/Acetaminophen) 1 Each Tablet 1 Tab PO QID PRN MDD 1 FENTANYL 50mcg/hr (Fentanyl) 1 Each Patch.td72 1 Patch TP Q3DAYS MDD 1 Culturelle (Lactobacillus Rhamnosus Gg) 1 Each Cap.sprink 1 Cap PO BID 30 Days Reported Albuterol Sulfate Neb Soln (Albuterol Sulfate) 0.63 Mg/3 Ml Vial.neb 1 Vial NEB QID Gabapentin (Gabapentin) 300 Mg Capsule 300 Mg PO BID PRN Amlodipine Besylate 5 Mg Tablet 5 Mg PO DAILY Pantoprazole Sodium 40 Mg Tablet. 40 Mg PEG BID Donepezil Hcl 5 Mg Tablet 5 Mg PEG BID Reglan (Metoclopramide Hcl) 10 Mg Tablet 5 Mg PO QIDACHS Cyproheptadine Hcl 2 Mg/5 Ml Syrup 10 Ml PEG TID Ondansetron Odt (Ondansetron) 4 Mg Tab.rapdis 4 Mg PEG QIDPRN PRN Vitals/I & O Vital Sign - Last 24 Hours 01/16/19 01/16/19 01/16/19 01/16/19 11:00 12:10 15:00 16:34 Temp 98.9 98.2 98.9 98.2 Pulse 104 113 Resp 20 20 B/P (MAP) 164/79 (107) 166/80 (108) Pulse Ox 100 98 100 O2 Delivery Tracheal Collar Tracheal Collar Tracheal Collar Tracheal Collar O2 Flow Rate 10.0 10.0 01/16/19 01/16/19 01/16/19 01/16/19 19:26 19:56 20:00 20:00 Temp 98.9 98.9 Pulse 108 Resp 20 B/P (MAP) 154/72 (99) Pulse Ox 100 95 95 O2 Delivery Tracheal Collar Trach Collar O2 Flow Rate 10.0 10.0 10.0 01/16/19 01/16/19 01/16/19 01/17/19 20:54 22:08 23:15 03:30 Temp 98.7 98.7 98.7 98.7 Pulse 101 99 Resp 20 18 B/P (MAP) 115/67 (83) 177/64 (101) Pulse Ox 94 94 99 93 O2 Delivery Tracheal Collar Tracheal Collar Tracheal Collar O2 Flow Rate 10.0 10.0 01/17/19 01/17/19 01/17/19 05:28 06:28 07:00 Temp 98.4 98.4 Pulse 91 Resp 18 B/P (MAP) 140/74 (96) Pulse Ox 93 93 100 O2 Delivery Tracheal Collar O2 Flow Rate 10.0 10.0 Intake and Output 01/16/19 01/16/19 01/17/19 15:00 23:00 07:00 Intake Total 1260 ml 877 ml 0 ml Output Total 0 ml Balance 1260 ml 877 ml 0 ml Nutrition Consultation Dietary Evaluation: Comments: Continue with TF order Expected Outcomes/Goals: TF tolerance Malnutrition Findings: Body Fat Depletion (Non Severe: Mild Depletion Weight Status: Underweight BRIJESH JARAMILLO MD January 17, 2019 09:03
[2019-01-17] MEDS: GABAPENTIN 300 MG CAPSULE. PO SCH ×2 (09:36→21:30)
[2019-01-17] MEDS: DONEPEZIL HCL 5 MG TABLET. PEG SCH ×2 (09:36→21:30)
[2019-01-17] MEDS: CYPROHEPTADINE 4 MG TABLET. PEG SCH ×3 (09:36→21:30)
[2019-01-17] MEDS: METOCLOPRAMIDE 5 MG TABLET. PO SCH ×4 (09:36→21:30)
[2019-01-17] MEDS: LACTOBACILLUS RHAMNOSUS GG 1 CAPSULE. PO SCH ×2 (09:36→21:29)
[2019-01-17] MEDS: amLODIPine BESYLATE 10 MG TABLET PO SCH (09:37)
[2019-01-17] MEDS: LANSOPRAZOLE 30 MG TAB.RAP.DR PEG SCH (09:37)
[2019-01-17] MEDS: fentaNYL PF VIAL 100 MCG/2 ML VIAL IV PRN ×3 (10:07→21:49)
[2019-01-17 11:00] VITALS: BP 137/72
--- NOTE | 2019-01-17 11:16 | NUR ---
IP: Pt has a hx of CR-PSA and ESBL in sputum/brochwash on 12/08/18. Pt to be in strict contact precautions at all times.
--- NOTE | 2019-01-17 11:21 | PDOC ---
PULMONARY PROGRESS NOTES Subjective NO SOA LESS TRACH SECRETIONS Vitals Vital Signs Date Time Temp Pulse Resp B/P (MAP) Pulse Ox O2 Delivery O2 Flow Rate FiO2 01/17/19 11:00 98.8 109 18 137/72 (93) 100 Tracheal Collar 98.8 01/17/19 10:07 10.0 General: Alert, No acute distress Lungs: Crackles Cardiovascular: S1, S2 Abdomen: Soft, Non-tender Extremities: No Edema Labs Laboratory Tests Test 01/16/19 10:00 01/17/19 05:30 White Blood Count 11.1 x10^3/uL (4.0-11.0) 11.4 x10^3/uL (4.0-11.0) Red Blood Count 4.80 x10^6/uL (3.50-5.40) 4.17 x10^6/uL (3.50-5.40) Hemoglobin 10.0 g/dL (12.0-15.5) 8.6 g/dL (12.0-15.5) Hematocrit 34.1 % (36.0-47.0) 29.5 % (36.0-47.0) Mean Corpuscular Volume 71 fL (79-100) 71 fL (79-100) Mean Corpuscular Hemoglobin 21 pg (25-35) 21 pg (25-35) Mean Corpuscular Hemoglobin Concent 29 g/dL (31-37) 29 g/dL (31-37) Red Cell Distribution Width 19.0 % (11.5-14.5) 18.7 % (11.5-14.5) Platelet Count 624 x10^3/uL (140-400) 498 x10^3/uL (140-400) Neutrophils (%) (Auto) 81 % (31-73) 75 % (31-73) Lymphocytes (%) (Auto) 14 % (24-48) 17 % (24-48) Monocytes (%) (Auto) 3 % (0-9) 5 % (0-9) Eosinophils (%) (Auto) 2 % (0-3) 2 % (0-3) Basophils (%) (Auto) 1 % (0-3) 1 % (0-3) Neutrophils # (Auto) 9.0 x10^3uL (1.8-7.7) 8.6 x10^3uL (1.8-7.7) Lymphocytes # (Auto) 1.5 x10^3/uL (1.0-4.8) 2.0 x10^3/uL (1.0-4.8) Monocytes # (Auto) 0.4 x10^3/uL (0.0-1.1) 0.5 x10^3/uL (0.0-1.1) Eosinophils # (Auto) 0.2 x10^3/uL (0.0-0.7) 0.2 x10^3/uL (0.0-0.7) Basophils # (Auto) 0.1 x10^3/uL (0.0-0.2) 0.1 x10^3/uL (0.0-0.2) Sodium Level 137 mmol/L (136-145) 139 mmol/L (136-145) Potassium Level 3.8 mmol/L (3.5-5.1) 4.0 mmol/L (3.5-5.1) Chloride Level 98 mmol/L (98-107) 100 mmol/L (98-107) Carbon Dioxide Level 33 mmol/L (21-32) 34 mmol/L (21-32) Anion Gap 6 (6-14) 5 (6-14) Blood Urea Nitrogen 14 mg/dL (7-20) 12 mg/dL (7-20) Creatinine 0.8 mg/dL (0.6-1.0) 0.7 mg/dL (0.6-1.0) Estimated GFR (Cockcroft-Gault) 84.2 98.2 Glucose Level 179 mg/dL (70-99) 88 mg/dL (70-99) Calcium Level 9.7 mg/dL (8.5-10.1) 9.1 mg/dL (8.5-10.1) Vancomycin Level Trough 13.3 mcg/mL (10.0-20.0) Vancomycin Last Dose Date 01/15/19 Vancomycin Last Dose Time 1999 Laboratory Tests Test 01/17/19 05:30 White Blood Count 11.4 x10^3/uL (4.0-11.0) Red Blood Count 4.17 x10^6/uL (3.50-5.40) Hemoglobin 8.6 g/dL (12.0-15.5) Hematocrit 29.5 % (36.0-47.0) Mean Corpuscular Volume 71 fL (79-100) Mean Corpuscular Hemoglobin 21 pg (25-35) Mean Corpuscular Hemoglobin Concent 29 g/dL (31-37) Red Cell Distribution Width 18.7 % (11.5-14.5) Platelet Count 498 x10^3/uL (140-400) Neutrophils (%) (Auto) 75 % (31-73) Lymphocytes (%) (Auto) 17 % (24-48) Monocytes (%) (Auto) 5 % (0-9) Eosinophils (%) (Auto) 2 % (0-3) Basophils (%) (Auto) 1 % (0-3) Neutrophils # (Auto) 8.6 x10^3uL (1.8-7.7) Lymphocytes # (Auto) 2.0 x10^3/uL (1.0-4.8) Monocytes # (Auto) 0.5 x10^3/uL (0.0-1.1) Eosinophils # (Auto) 0.2 x10^3/uL (0.0-0.7) Basophils # (Auto) 0.1 x10^3/uL (0.0-0.2) Sodium Level 139 mmol/L (136-145) Potassium Level 4.0 mmol/L (3.5-5.1) Chloride Level 100 mmol/L (98-107) Carbon Dioxide Level 34 mmol/L (21-32) Anion Gap 5 (6-14) Blood Urea Nitrogen 12 mg/dL (7-20) Creatinine 0.7 mg/dL (0.6-1.0) Estimated GFR (Cockcroft-Gault) 98.2 Glucose Level 88 mg/dL (70-99) Calcium Level 9.1 mg/dL (8.5-10.1) Medications Active Scripts Medications Dose Route/Sig Max Daily Dose Days Date Category Percocet 7.5-325 Mg Tablet (Oxycodone/Acetaminophen) 1 Each Tablet 1 Tab PO QID PRN MDD 1 12/09/18 Rx FENTANYL 50mcg/hr (Fentanyl) 1 Each Patch.td72 1 Patch TP Q3DAYS MDD 1 12/09/18 Rx Albuterol Sulfate Neb Soln (Albuterol Sulfate) 0.63 Mg/3 Ml Vial.neb 1 Vial NEB QID 12/02/18 Reported Gabapentin (Gabapentin) 300 Mg Capsule 300 Mg PO BID PRN 10/19/18 Reported Amlodipine Besylate 5 Mg Tablet 5 Mg PO DAILY 10/19/18 Reported Culturelle (Lactobacillus Rhamnosus Gg) 1 Each Cap.sprink 1 Cap PO BID 30 07/07/17 Rx Pantoprazole Sodium 40 Mg Tablet.dr 40 Mg PEG BID 03/11/17 Reported Donepezil Hcl 5 Mg Tablet 5 Mg PEG BID 03/11/17 Reported Reglan (Metoclopramide Hcl) 10 Mg Tablet 5 Mg PO QIDACHS 03/11/17 Reported Cyproheptadine Hcl 2 Mg/5 Ml Syrup 10 Ml PEG TID 03/11/17 Reported Ondansetron Odt (Ondansetron) 4 Mg Tab.rapdis 4 Mg PEG QIDPRN PRN 06/19/14 Reported Comments CXR 01/16, 01/17 Resolved RICHARD consolidation c/w 01/12 Impression . 1. Acute on chronic hypoxic respiratory failure secondary to new left upper lobe pneumonia. likely aspiration, now resolved. ( PSA on sputum awaiting drug S) 2. Abnormal chest x-ray consistent with left upper lobe consolidation. resolved 3. 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 4. Dysphagia. 5. Laryngeal cancer diagnosed on 07/23/2015 status post tracheostomy and status post radiation therapy along with cetuximab with no evidence of recurrent disease. 6. 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 7. 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 Plan . 1. Continue broad-spectrum antibiotics as recommended by Infectious Disease. 2. PSA on sputum cultures. await ID rec regarding change to PO/ await drug S 3. Follow white cell count. She had initial marked leukocytosis. 4. Continue bronchodilators. 5. P.r.n. trach suction. 6. Discuss with RN./ MARY HAMM MD January 17, 2019 11:21
--- NOTE | 2019-01-17 11:49 | PDOC ---
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 status post recent bronch 01/01/19 Acute on chronic hypercapnic respiratory failure Chronic dysphagia, chronically PEG on tube feeds Hx of lung cancer and laryngeal cancer - s/p trach, stable HTN History of Present Illness History of Present Illness Looks well and comfortable Minimal secretions per chart She goes home with home health and is a full code-family aggressive WBC 11 with no fevers, hemoglobin 8.6 with platelets chronically high 498 Cultures I have reviewed and discussed with pulmonary She always grows pseudomonas and MRSA etc. on the sputum otherwise she is nontoxic-appearing Plan follow ID and pulmonary conditions Otherwise other supportive meds/CPM Full code We'll go back to home with home health family on discharge once switched to PO abx - Sometime this week Vitals Vitals Vital Signs Date Time Temp Pulse Resp B/P (MAP) Pulse Ox O2 Delivery O2 Flow Rate FiO2 01/17/19 11:33 Tracheal Collar 10.0 01/17/19 11:00 98.8 109 18 137/72 (93) 100 98.8 Physical Exam Physical Exam GENERAL: Appears comfortable NECK: Trach shield LUNGS: Improved aeration, less congestion, nonlabored HEART: S1, S2 regular. ABDOMEN: Soft, PEG EXTREMITIES: No edema or cyanosis. SKIN: No rash NEUROLOGIC: Sleeping Port clean General: Alert, Oriented X3, Cooperative, No acute distress Heart: Regular rate Lungs: Crackles Abdomen: Normal bowel sounds, Soft, No tenderness, No hepatosplenomegaly, No masses, Other (PEG site clean) Extremities: No clubbing, No cyanosis, No edema, Normal pulses, No tenderness/swelling Skin: No rashes, No breakdown, No significant lesion Labs LABS Laboratory Tests Test 01/17/19 05:30 White Blood Count 11.4 x10^3/uL (4.0-11.0) Red Blood Count 4.17 x10^6/uL (3.50-5.40) Hemoglobin 8.6 g/dL (12.0-15.5) Hematocrit 29.5 % (36.0-47.0) Mean Corpuscular Volume 71 fL (79-100) Mean Corpuscular Hemoglobin 21 pg (25-35) Mean Corpuscular Hemoglobin Concent 29 g/dL (31-37) Red Cell Distribution Width 18.7 % (11.5-14.5) Platelet Count 498 x10^3/uL (140-400) Neutrophils (%) (Auto) 75 % (31-73) Lymphocytes (%) (Auto) 17 % (24-48) Monocytes (%) (Auto) 5 % (0-9) Eosinophils (%) (Auto) 2 % (0-3) Basophils (%) (Auto) 1 % (0-3) Neutrophils # (Auto) 8.6 x10^3uL (1.8-7.7) Lymphocytes # (Auto) 2.0 x10^3/uL (1.0-4.8) Monocytes # (Auto) 0.5 x10^3/uL (0.0-1.1) Eosinophils # (Auto) 0.2 x10^3/uL (0.0-0.7) Basophils # (Auto) 0.1 x10^3/uL (0.0-0.2) Sodium Level 139 mmol/L (136-145) Potassium Level 4.0 mmol/L (3.5-5.1) Chloride Level 100 mmol/L (98-107) Carbon Dioxide Level 34 mmol/L (21-32) Anion Gap 5 (6-14) Blood Urea Nitrogen 12 mg/dL (7-20) Creatinine 0.7 mg/dL (0.6-1.0) Estimated GFR (Cockcroft-Gault) 98.2 Glucose Level 88 mg/dL (70-99) Calcium Level 9.1 mg/dL (8.5-10.1) Review of Systems Review of Systems A 14 point ROS was completed with the following noted as positive: Other systems reviewed and negative. \CONSTITUTIONAL: No fever or chills EYES: No recent changes SKIN: No rash or itching CARDIOVASCULAR: No chest pain, syncope, palpitations, or edema RESPIRATORY: No SOB or cough GASTROINTESTINAL: No nausea, vomiting or abdominal pain NEUROLOGICAL: No headaches or weakness ENDOCRINE: No cold or heat intolerance GENITOURINARY: No urgency or frequency of urination MUSCULOSKELETAL: No back pain or joint pain LYMPHATICS: No enlarged lymph nodes PSYCHIATRIC: No anxiety or depression Assessment and Plan Assessmemt and Plan Problems Medical Problems: (1) Dyspnea Status: Acute Comment Review of Relevant I have reviewed the following items miko (where applicable) has been applied. Labs Laboratory Tests Test 01/16/19 10:00 01/17/19 05:30 White Blood Count 11.1 x10^3/uL (4.0-11.0) 11.4 x10^3/uL (4.0-11.0) Red Blood Count 4.80 x10^6/uL (3.50-5.40) 4.17 x10^6/uL (3.50-5.40) Hemoglobin 10.0 g/dL (12.0-15.5) 8.6 g/dL (12.0-15.5) Hematocrit 34.1 % (36.0-47.0) 29.5 % (36.0-47.0) Mean Corpuscular Volume 71 fL (79-100) 71 fL (79-100) Mean Corpuscular Hemoglobin 21 pg (25-35) 21 pg (25-35) Mean Corpuscular Hemoglobin Concent 29 g/dL (31-37) 29 g/dL (31-37) Red Cell Distribution Width 19.0 % (11.5-14.5) 18.7 % (11.5-14.5) Platelet Count 624 x10^3/uL (140-400) 498 x10^3/uL (140-400) Neutrophils (%) (Auto) 81 % (31-73) 75 % (31-73) Lymphocytes (%) (Auto) 14 % (24-48) 17 % (24-48) Monocytes (%) (Auto) 3 % (0-9) 5 % (0-9) Eosinophils (%) (Auto) 2 % (0-3) 2 % (0-3) Basophils (%) (Auto) 1 % (0-3) 1 % (0-3) Neutrophils # (Auto) 9.0 x10^3uL (1.8-7.7) 8.6 x10^3uL (1.8-7.7) Lymphocytes # (Auto) 1.5 x10^3/uL (1.0-4.8) 2.0 x10^3/uL (1.0-4.8) Monocytes # (Auto) 0.4 x10^3/uL (0.0-1.1) 0.5 x10^3/uL (0.0-1.1) Eosinophils # (Auto) 0.2 x10^3/uL (0.0-0.7) 0.2 x10^3/uL (0.0-0.7) Basophils # (Auto) 0.1 x10^3/uL (0.0-0.2) 0.1 x10^3/uL (0.0-0.2) Sodium Level 137 mmol/L (136-145) 139 mmol/L (136-145) Potassium Level 3.8 mmol/L (3.5-5.1) 4.0 mmol/L (3.5-5.1) Chloride Level 98 mmol/L (98-107) 100 mmol/L (98-107) Carbon Dioxide Level 33 mmol/L (21-32) 34 mmol/L (21-32) Anion Gap 6 (6-14) 5 (6-14) Blood Urea Nitrogen 14 mg/dL (7-20) 12 mg/dL (7-20) Creatinine 0.8 mg/dL (0.6-1.0) 0.7 mg/dL (0.6-1.0) Estimated GFR (Cockcroft-Gault) 84.2 98.2 Glucose Level 179 mg/dL (70-99) 88 mg/dL (70-99) Calcium Level 9.7 mg/dL (8.5-10.1) 9.1 mg/dL (8.5-10.1) Vancomycin Level Trough 13.3 mcg/mL (10.0-20.0) Vancomycin Last Dose Date 01/15/19 Vancomycin Last Dose Time 1999 Laboratory Tests Test 01/17/19 05:30 White Blood Count 11.4 x10^3/uL (4.0-11.0) Red Blood Count 4.17 x10^6/uL (3.50-5.40) Hemoglobin 8.6 g/dL (12.0-15.5) Hematocrit 29.5 % (36.0-47.0) Mean Corpuscular Volume 71 fL (79-100) Mean Corpuscular Hemoglobin 21 pg (25-35) Mean Corpuscular Hemoglobin Concent 29 g/dL (31-37) Red Cell Distribution Width 18.7 % (11.5-14.5) Platelet Count 498 x10^3/uL (140-400) Neutrophils (%) (Auto) 75 % (31-73) Lymphocytes (%) (Auto) 17 % (24-48) Monocytes (%) (Auto) 5 % (0-9) Eosinophils (%) (Auto) 2 % (0-3) Basophils (%) (Auto) 1 % (0-3) Neutrophils # (Auto) 8.6 x10^3uL (1.8-7.7) Lymphocytes # (Auto) 2.0 x10^3/uL (1.0-4.8) Monocytes # (Auto) 0.5 x10^3/uL (0.0-1.1) Eosinophils # (Auto) 0.2 x10^3/uL (0.0-0.7) Basophils # (Auto) 0.1 x10^3/uL (0.0-0.2) Sodium Level 139 mmol/L (136-145) Potassium Level 4.0 mmol/L (3.5-5.1) Chloride Level 100 mmol/L (98-107) Carbon Dioxide Level 34 mmol/L (21-32) Anion Gap 5 (6-14) Blood Urea Nitrogen 12 mg/dL (7-20) Creatinine 0.7 mg/dL (0.6-1.0) Estimated GFR (Cockcroft-Gault) 98.2 Glucose Level 88 mg/dL (70-99) Calcium Level 9.1 mg/dL (8.5-10.1) Microbiology 01/12/19 Blood Culture - Preliminary, Resulted NO GROWTH AFTER 4 DAYS 01/14/19 - Final, Resulted 01/14/19 - Final, Resulted 01/14/19 - Final, Resulted 01/14/19 - Final, Resulted 01/14/19 - Final, Resulted 01/14/19 Gram Stain Evaluation - Final, Resulted 01/14/19 Sputum Culture - Preliminary, Resulted 01/14/19 Sputum Result 1 - Final, Resulted 01/14/19 Sputum Result 2 - Final, Resulted 01/14/19 - Final, Resulted Medications Current Medications Albuterol/ Ipratropium (Duoneb) 3 ml 1X ONCE NEB Last administered on 01/12/19at 14:56; Start 01/12/19 at 14:30; Stop 01/12/19 at 14:35; Status DC Piperacillin Sod/ Tazobactam Sod (Zosyn Per Pharmacy) 1 each PRN DAILY PRN MC SEE COMMENTS; Start 01/12/19 at 16:15; Status Cancel Vancomycin HCl (Vanco Per Pharmacy) 1 each PRN DAILY PRN MC SEE COMMENTS Last administered on 01/16/19 10:42; Start 01/12/19 at 16:15 Vancomycin HCl 1.25 gm/Sodium Chloride 250 ml @ 166.667 mls/hr 1X ONCE IV Last administered on 01/12/19 18:18; Start 01/12/19 at 16:15; Stop 01/12/19 at 17:44; Status DC Piperacillin Sod/ Tazobactam Sod 3.375 gm/Sodium Chloride 50 ml @ 100 mls/hr 1X ONCE IV Last administered on 01/12/19 17:28; Start 01/12/19 at 16:15; Stop 01/12/19 at 16:44; Status DC Oxycodone/ Acetaminophen (Percocet 5/325) 1 tab 1X ONCE PO Last administered on 01/12/19 18:18; Start 01/12/19 at 18:00; Stop 01/12/19 at 18:08; Status DC Fentanyl Citrate (Fentanyl 2ml Vial) 25 mcg PRN Q2HR PRN IV PAIN Last administered on 01/17/19 10:07; Start 01/12/19 at 18:30 Piperacillin Sod/ Tazobactam Sod 3.375 gm/Sodium Chloride 50 ml @ 100 mls/hr Q6HRS IV Last administered on 01/13/19 06:13; Start 01/13/19 at 00:00; Stop 01/13/19 at 11:26; Status DC Vancomycin HCl 750 mg/Sodium Chloride 250 ml @ 250 mls/hr Q24H IV Last administered on 01/13/19 17:11; Start 01/13/19 at 18:00; Stop 01/14/19 at 18:54; Status DC Vancomycin HCl (Vancomycin Trough Level) 1 each 1X ONCE MC Last administered on 01/14/19 17:30; Start 01/14/19 at 17:30; Stop 01/14/19 at 17:31; Status DC Amlodipine Besylate (Norvasc) 5 mg DAILY PO Last administered on 01/15/19 08:36; Start 01/13/19 at 09:00; Stop 01/15/19 at 20:49; Status DC Fentanyl (Duragesic 50mcg/ Hr Patch) 1 patch Q3DAYS TD ; Start 01/15/19 at 09:00; Status UNV Gabapentin (Neurontin) 300 mg BID PO Last administered on 01/17/19 09:36; Start 01/12/19 at 21:00 Lactobacillus Rhamnosus (Culturelle) 1 cap BID PO Last administered on 01/17/19 09:36; Start 01/12/19 at 21:00 Metoclopramide HCl (Reglan) 5 mg QIDACHS PO Last administered on 01/17/19 09: 36; Start 01/12/19 at 21:00 Ondansetron HCl (Zofran Odt) 4 mg PRN Q6HRS PRN PEG NAUSEA/VOMITING Last administered on 01/16/19 19:14; Start 01/12/19 at 19:45 Oxycodone/ Acetaminophen (Percocet 7.5/ 325) 1 tab PRN QID PRN PO MODERATE TO SEVERE PAIN Last administered on 01/17/19 05:28; Start 01/12/19 at 19:45 Non-Formulary Medication (Albuterol Sulfate (Albuterol Sulfate Neb Soln)) 1 vial QID NEB ; Start 01/12/19 at 21:00; Status UNV Cyproheptadine HCl (Periactin) 4 mg TID PEG Last administered on 01/17/19 09: 36; Start 01/12/19 at 21:00 Donepezil HCl (Aricept) 5 mg BID PEG Last administered on 01/17/19 09:36; Start 01/13/19 at 09:00 Pantoprazole Sodium (PROTONIX VIAL for IV PUSH) 40 mg DAILYAC IVP ; Start 01/13/19 at 07:30; Status UNV Enoxaparin Sodium (Lovenox 40mg Syringe) 40 mg Q24H SQ Last administered on 01/16/19 22:08; Start 01/12/19 at 20:00 Albuterol Sulfate (Ventolin Neb Soln) 2.5 mg RTQID NEB Last administered on 01/17/19 11:35; Start 01/12/19 at 20:00 Lansoprazole (Prevacid) 30 mg DAILYAC PEG Last administered on 01/17/19 09:37; Start 01/13/19 at 07:30 Fentanyl (Duragesic 50mcg/ Hr Patch) 1 patch Q3DAYS TD Last administered on 01/15/19 08:37; Start 01/12/19 at 21:00 Ceftolozane/ Tazobactam 1500 mg/Sodium Chloride 100 ml @ 100 mls/hr Q8HRS IV Last administered on 01/17/19 05:28; Start 01/13/19 at 14:00 Polyethylene Glycol (miraLAX PACKET) 17 gm PRN BID PRN GT CONSTIPATION Last administered on 01/16/19 08:29; Start 01/13/19 at 12:45 Ondansetron HCl (Zofran) 4 mg PRN Q8HRS PRN IV NAUSEA/VOMITING Last admi nistered on 01/16/19 15:00; Start 01/13/19 at 18:45 Vancomycin HCl 1 gm/Sodium Chloride 250 ml @ 250 mls/hr 1X ONCE IV Last ad ministered on 01/14/19 20:01; Start 01/14/19 at 19:30; Stop 01/14/19 at 20:29; Status DC Vancomycin HCl 750 mg/Sodium Chloride 250 ml @ 250 mls/hr Q12H IV Last administered on 01/15/19 20:53; Start 01/15/19 at 08:00; Stop 01/16/19 at 10:34; Status DC Vancomycin HCl (Vancomycin Trough Level) 1 each 1X ONCE MC Last administered on 01/16/19 07:30; Start 01/16/19 at 07:30; Stop 01/16/19 at 07:31; Status DC Amlodipine Besylate (Norvasc) 10 mg DAILY PO Last administered on 01/17/19 09:37; Start 01/16/19 at 09:00 Amlodipine Besylate (Norvasc) 5 mg 1X ONCE PO Last administered on 01/15/19 21:01; Start 01/15/19 at 21:00; Stop 01/15/19 at 21:01; Status DC Vancomycin HCl 1 gm/Sodium Chloride 250 ml @ 250 mls/hr Q12H IV Last administered on 01/17/19 00:08; Start 01/16/19 at 11:00 Alteplase, Recombinant (Cathflo For Central Catheter Clearance) 1 mg 1X ONCE INT CAT Last administered on 01/16/19at 16:01; Start 01/16/19 at 13:15; Stop 01/16/19 at 13:16; Status DC Active Scripts Active Percocet 7.5-325 Mg Tablet (Oxycodone/Acetaminophen) 1 Each Tablet 1 Tab PO QID PRN MDD 1 FENTANYL 50mcg/hr (Fentanyl) 1 Each Patch.td72 1 Patch TP Q3DAYS MDD 1 Culturelle (Lactobacillus Rhamnosus Gg) 1 Each Cap.sprink 1 Cap PO BID 30 Days Reported Albuterol Sulfate Neb Soln (Albuterol Sulfate) 0.63 Mg/3 Ml Vial.neb 1 Vial NEB QID Gabapentin (Gabapentin) 300 Mg Capsule 300 Mg PO BID PRN Amlodipine Besylate 5 Mg Tablet 5 Mg PO DAILY Pantoprazole Sodium 40 Mg Tablet.dr 40 Mg PEG BID Donepezil Hcl 5 Mg Tablet 5 Mg PEG BID Reglan (Metoclopramide Hcl) 10 Mg Tablet 5 Mg PO QIDACHS Cyproheptadine Hcl 2 Mg/5 Ml Syrup 10 Ml PEG TID Ondansetron Odt (Ondansetron) 4 Mg Tab.rapdis 4 Mg PEG QIDPRN PRN Vitals/I & O Vital Sign - Last 24 Hours 01/16/19 01/16/19 01/16/19 01/16/19 12:10 15:00 16:34 19:26 Temp 98.2 98.2 Pulse 113 Resp 20 B/P (MAP) 166/80 (108) Pulse Ox 98 100 100 O2 Delivery Tracheal Collar Tracheal Collar Tracheal Collar O2 Flow Rate 10.0 10.0 10.0 01/16/19 01/16/19 01/16/19 01/16/19 19:56 20:00 20:00 20:54 Temp 98.9 98.9 Pulse 108 Resp 20 B/P (MAP) 154/72 (99) Pulse Ox 95 95 94 O2 Delivery Tracheal Collar Trach Collar Tracheal Collar O2 Flow Rate 10.0 10.0 10.0 01/16/19 01/16/19 01/17/19 01/17/19 22:08 23:15 03:30 05:28 Temp 98.7 98.7 98.7 98.7 Pulse 101 99 Resp 20 18 B/P (MAP) 115/67 (83) 177/64 (101) Pulse Ox 94 99 93 93 O2 Delivery Tracheal Collar Tracheal Collar O2 Flow Rate 10.0 10.0 01/17/19 01/17/19 01/17/19 01/17/19 06:28 07:00 08:44 09:37 Temp 98.4 98.4 Pulse 91 91 Resp 18 B/P (MAP) 140/74 (96) 140/74 Pulse Ox 93 100 96 O2 Delivery Tracheal Collar Tracheal Collar O2 Flow Rate 10.0 10.0 01/17/19 01/17/19 01/17/19 10:07 11:00 11:33 Temp 98.8 98.8 Pulse 109 Resp 18 18 B/P (MAP) 137/72 (93) Pulse Ox 100 100 O2 Delivery Tracheal Collar Tracheal Collar Tracheal Collar O2 Flow Rate 10.0 10.0 Intake and Output 01/16/19 01/16/19 01/17/19 15:00 23:00 07:00 Intake Total 1260 ml 877 ml 0 ml Output Total 0 ml Balance 1260 ml 877 ml 0 ml Nutrition Consultation Dietary Evaluation: Comments: Continue with TF order Expected Outcomes/Goals: TF tolerance- met, goal ongoing Malnutrition Findings: Body Fat Depletion (Non Severe: Mild Depletion Weight Status: Underweight HEAVEN KRAUS MD January 17, 2019 11:48
[2019-01-17 15:00] VITALS: BP 121/67
[2019-01-17] MEDS ORDERED: NITROGLYCERIN SUBLINGUAL 0.4 MG BOTTLE OF 25. SL ONE (19:00)
--- NOTE | 2019-01-17 19:27 | NUR ---
Patient complained of chest heaviness, 5/10 started at 1840 not aggravated by coughing or deep breathing. VS BP 151/74 HR 109 RR 18 O2 sat 100% with O2 at 10LPM via trach collar. Paged Dr. Arnett at 1850, responded at bedside and has seen patient. Order for repeat CXR received.
[2019-01-17 19:56] VITALS: BP 142/73
--- NOTE | 2019-01-17 20:11 | RAD ---
EXAM: Chest, single view. HISTORY: Pneumonia. COMPARISON: Radiograph obtained on the same date. FINDINGS: A frontal view of the chest is obtained. There is diffuse interstitial infiltrate. There is suspected superimposed partial left lower lobe consolidation. There are suspected small pleural effusions. There is no pneumothorax. There is cardiomegaly. There is a right chest wall port catheter in the superior cavoatrial junction. There is a tracheostomy device overlying the thoracic inlet. There is lucency overlying the left lung apex due to overlying artifact rather than pneumothorax. IMPRESSION: 1. Stable diffuse interstitial infiltrate with suspected partial left lower lobe consolidation and small pleural effusions. 2. Stable cardiomegaly. Electronically signed by: Argenis Ryan MD (01/17/2019 8:08 PM) [facility]
[2019-01-17] MEDS: ENOXAPARIN 40 MG/0.4 ML SYRINGE. SQ SCH (21:29)
[2019-01-17 23:45] VITALS: BP 132/68
[2019-01-18] MEDS: oxyCODONE/APAP 7.5/325 1 TAB TABLET PO PRN ×3 (00:12→22:52)
[2019-01-18 03:29] VITALS: BP 176/96
[2019-01-18 03:56] LABS: BASO # 0.1 x10^3/uL (0.0-0.2); BASO % 1 % (0-3); EOS # 0.2 x10^3/uL (0.0-0.7); EOS % 2 % (0-3); HEMATOCRIT 26.3 % (36.0-47.0); HEMOGLOBIN 7.7 g/dL (12.0-15.5); LYMPH # 1.9 x10^3/uL (1.0-4.8); LYMPH % 18 % (24-48); MEAN CORPUSCULAR HEMOGLOBIN 21 pg (25-35); MEAN CORPUSCULAR HGB CONC 29 g/dL (31-37); MEAN CORPUSCULAR VOLUME 71 fL (79-100); MONO # 0.5 x10^3/uL (0.0-1.1); MONO % 5 % (0-9); NEUT # 7.7 x10^3uL (1.8-7.7); NEUT % 74 % (31-73); PLATELET COUNT 437 x10^3/uL (140-400); RED BLOOD COUNT 3.73 x10^6/uL (3.50-5.40); RED CELL DISTRIBUTION WIDTH 19.3 % (11.5-14.5); WHITE BLOOD COUNT 10.4 x10^3/uL (4.0-11.0)
[2019-01-18 04:10] LABS: CALCIUM 9.1 mg/dL (8.5-10.1); CREATININE 0.6 mg/dL (0.6-1.0); GFR 117.3
[2019-01-18] MEDS: fentaNYL PF VIAL 100 MCG/2 ML VIAL IV PRN ×2 (05:13→07:34)
[2019-01-18] MEDS: CEFTOLOZANE/TAZOBACTAM 1,500 MG in IV NORMAL SALINE 100ML 100 ML IV SCH ×3 (05:53→23:10)
[2019-01-18] MEDS: ALBUTEROL SULFATE 2.5 MG/3 ML NEBU. NEB SCH ×4 (07:14→19:33)
[2019-01-18 07:20] VITALS: BP 179/88
[2019-01-18] MEDS: LANSOPRAZOLE 30 MG TAB.RAP.DR PEG SCH (07:33)
[2019-01-18] MEDS: METOCLOPRAMIDE 5 MG TABLET. PO SCH ×4 (07:33→21:17)
[2019-01-18] MEDS: DONEPEZIL HCL 5 MG TABLET. PEG SCH ×2 (08:24→21:18)
[2019-01-18] MEDS: GABAPENTIN 300 MG CAPSULE. PO SCH ×2 (08:24→21:18)
[2019-01-18] MEDS: amLODIPine BESYLATE 10 MG TABLET PO SCH (08:24)
[2019-01-18] MEDS: fentaNYL 50MCG/HR PATCH 1 PATCH PATCH.TD72 TD SCH (08:25)
[2019-01-18] MEDS: LACTOBACILLUS RHAMNOSUS GG 1 CAPSULE. PO SCH ×2 (08:25→21:17)
[2019-01-18] MEDS: CYPROHEPTADINE 4 MG TABLET. PEG SCH ×3 (08:25→21:17)
[2019-01-18] MEDS ORDERED: IRON SUCROSE COMPLEX 500 MG in IV NORMAL SALINE 250ML 250 ML IV ONE (09:00)
--- NOTE | 2019-01-18 09:09 | PDOC ---
PROGRESS NOTES Subjective Subjective HPI - f/u of Anemia ROS - no CP Objective Objective Vital Signs Date Time Temp Pulse Resp B/P (MAP) Pulse Ox O2 Delivery O2 Flow Rate FiO2 01/18/19 08:25 97 10.0 01/18/19 08:24 102 179/88 01/18/19 07:34 16 01/18/19 07:20 98.3 Tracheal Collar 98.3 Intake and Output 01/18/19 07:00 Intake Total 1620 ml Output Total 500 ml Balance 1120 ml Intake Oral 0 ml Tube Feeding 1620 ml Output Urine Total 500 ml # Voids 6 Physical Exam General: Alert, Oriented X3, No acute distress Psych/Mental Status: Mental status NL Assessment Assessment Problems Medical Problems: (1) Dyspnea Status: Acute IMPRESSION AND PLAN: 1. Laryngeal cancer diagnosed on 07/23/2015 status post tracheostomy and status post radiation therapy along with cetuximab with no evidence of recurrent disease. 2. 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 3. 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 4. Anemia, which I suspect is due to chronic disease. She has had multiple bouts of pneumonia requiring hospitalization and antibiotics. Iron studies are consistent with anemia due to chronic disease. Hb now worse at 7.7. I will give venofer 500 mg IV 01/18/19 in view of worsening anemia and low iron saturation. 5. Pneumonia. Appreciate Infectious Disease and Pulmonary management. Comment Review of Relevant I have reviewed the following items miko (where applicable) has been applied. Labs Laboratory Tests Test 01/16/19 10:00 01/17/19 05:30 01/18/19 03:40 White Blood Count 11.1 x10^3/uL (4.0-11.0) 11.4 x10^3/uL (4.0-11.0) 10.4 x10^3/uL (4.0-11.0) Red Blood Count 4.80 x10^6/uL (3.50-5.40) 4.17 x10^6/uL (3.50-5.40) 3.73 x10^6/uL (3.50-5.40) Hemoglobin 10.0 g/dL (12.0-15.5) 8.6 g/dL (12.0-15.5) 7.7 g/dL (12.0-15.5) Hematocrit 34.1 % (36.0-47.0) 29.5 % (36.0-47.0) 26.3 % (36.0-47.0) Mean Corpuscular Volume 71 fL (79-100) 71 fL (79-100) 71 fL (79-100) Mean Corpuscular Hemoglobin 21 pg (25-35) 21 pg (25-35) 21 pg (25-35) Mean Corpuscular Hemoglobin Concent 29 g/dL (31-37) 29 g/dL (31-37) 29 g/dL (31-37) Red Cell Distribution Width 19.0 % (11.5-14.5) 18.7 % (11.5-14.5) 19.3 % (11.5-14.5) Platelet Count 624 x10^3/uL (140-400) 498 x10^3/uL (140-400) 437 x10^3/uL (140-400) Neutrophils (%) (Auto) 81 % (31-73) 75 % (31-73) 74 % (31-73) Lymphocytes (%) (Auto) 14 % (24-48) 17 % (24-48) 18 % (24-48) Monocytes (%) (Auto) 3 % (0-9) 5 % (0-9) 5 % (0-9) Eosinophils (%) (Auto) 2 % (0-3) 2 % (0-3) 2 % (0-3) Basophils (%) (Auto) 1 % (0-3) 1 % (0-3) 1 % (0-3) Neutrophils # (Auto) 9.0 x10^3uL (1.8-7.7) 8.6 x10^3uL (1.8-7.7) 7.7 x10^3uL (1.8-7.7) Lymphocytes # (Auto) 1.5 x10^3/uL (1.0-4.8) 2.0 x10^3/uL (1.0-4.8) 1.9 x10^3/uL (1.0-4.8) Monocytes # (Auto) 0.4 x10^3/uL (0.0-1.1) 0.5 x10^3/uL (0.0-1.1) 0.5 x10^3/uL (0.0-1.1) Eosinophils # (Auto) 0.2 x10^3/uL (0.0-0.7) 0.2 x10^3/uL (0.0-0.7) 0.2 x10^3/uL (0.0-0.7) Basophils # (Auto) 0.1 x10^3/uL (0.0-0.2) 0.1 x10^3/uL (0.0-0.2) 0.1 x10^3/uL (0.0-0.2) Sodium Level 137 mmol/L (136-145) 139 mmol/L (136-145) 138 mmol/L (136-145) Potassium Level 3.8 mmol/L (3.5-5.1) 4.0 mmol/L (3.5-5.1) 4.0 mmol/L (3.5-5.1) Chloride Level 98 mmol/L (98-107) 100 mmol/L (98-107) 102 mmol/L (98-107) Carbon Dioxide Level 33 mmol/L (21-32) 34 mmol/L (21-32) 35 mmol/L (21-32) Anion Gap 6 (6-14) 5 (6-14) 1 (6-14) Blood Urea Nitrogen 14 mg/dL (7-20) 12 mg/dL (7-20) 11 mg/dL (7-20) Creatinine 0.8 mg/dL (0.6-1.0) 0.7 mg/dL (0.6-1.0) 0.6 mg/dL (0.6-1.0) Estimated GFR (Cockcroft-Gault) 84.2 98.2 117.3 Glucose Level 179 mg/dL (70-99) 88 mg/dL (70-99) 88 mg/dL (70-99) Calcium Level 9.7 mg/dL (8.5-10.1) 9.1 mg/dL (8.5-10.1) 9.1 mg/dL (8.5-10.1) Vancomycin Level Trough 13.3 mcg/mL (10.0-20.0) Vancomycin Last Dose Date 01/15/19 Vancomycin Last Dose Time 1999 Laboratory Tests Test 01/18/19 03:40 White Blood Count 10.4 x10^3/uL (4.0-11.0) Red Blood Count 3.73 x10^6/uL (3.50-5.40) Hemoglobin 7.7 g/dL (12.0-15.5) Hematocrit 26.3 % (36.0-47.0) Mean Corpuscular Volume 71 fL (79-100) Mean Corpuscular Hemoglobin 21 pg (25-35) Mean Corpuscular Hemoglobin Concent 29 g/dL (31-37) Red Cell Distribution Width 19.3 % (11.5-14.5) Platelet Count 437 x10^3/uL (140-400) Neutrophils (%) (Auto) 74 % (31-73) Lymphocytes (%) (Auto) 18 % (24-48) Monocytes (%) (Auto) 5 % (0-9) Eosinophils (%) (Auto) 2 % (0-3) Basophils (%) (Auto) 1 % (0-3) Neutrophils # (Auto) 7.7 x10^3uL (1.8-7.7) Lymphocytes # (Auto) 1.9 x10^3/uL (1.0-4.8) Monocytes # (Auto) 0.5 x10^3/uL (0.0-1.1) Eosinophils # (Auto) 0.2 x10^3/uL (0.0-0.7) Basophils # (Auto) 0.1 x10^3/uL (0.0-0.2) Sodium Level 138 mmol/L (136-145) Potassium Level 4.0 mmol/L (3.5-5.1) Chloride Level 102 mmol/L (98-107) Carbon Dioxide Level 35 mmol/L (21-32) Anion Gap 1 (6-14) Blood Urea Nitrogen 11 mg/dL (7-20) Creatinine 0.6 mg/dL (0.6-1.0) Estimated GFR (Cockcroft-Gault) 117.3 Glucose Level 88 mg/dL (70-99) Calcium Level 9.1 mg/dL (8.5-10.1) Microbiology 01/12/19 Blood Culture - Final, Complete NO GROWTH AFTER 5 DAYS 01/14/19 - Final, Resulted 01/14/19 - Final, Resulted 01/14/19 - Final, Resulted 01/14/19 - Final, Resulted 01/14/19 - Final, Resulted 01/14/19 Gram Stain Evaluation - Final, Resulted 01/14/19 Sputum Culture - Preliminary, Resulted 01/14/19 Sputum Result 1 - Final, Resulted 01/14/19 Sputum Result 2 - Final, Resulted 01/14/19 - Final, Resulted Medications Current Medications Albuterol/ Ipratropium (Duoneb) 3 ml 1X ONCE NEB Last administered on 01/12/19at 14:56; Start 01/12/19 at 14:30; Stop 01/12/19 at 14:35; Status DC Piperacillin Sod/ Tazobactam Sod (Zosyn Per Pharmacy) 1 each PRN DAILY PRN MC SEE COMMENTS; Start 01/12/19 at 16:15; Status Cancel Vancomycin HCl (Vanco Per Pharmacy) 1 each PRN DAILY PRN MC SEE COMMENTS Last administered on 01/16/19at 10:42; Start 01/12/19 at 16:15; Stop 01/17/19 at 13:44; Status DC Vancomycin HCl 1.25 gm/Sodium Chloride 250 ml @ 166.667 mls/hr 1X ONCE IV Last administered on 01/12/19at 18:18; Start 01/12/19 at 16:15; Stop 01/12/19 at 17:44; Status DC Piperacillin Sod/ Tazobactam Sod 3.375 gm/Sodium Chloride 50 ml @ 100 mls/hr 1X ONCE IV Last administered on 01/12/19at 17:28; Start 01/12/19 at 16:15; Stop 01/12/19 at 16:44; Status DC Oxycodone/ Acetaminophen (Percocet 5/325) 1 tab 1X ONCE PO Last administered on 01/12/19at 18:18; Start 01/12/19 at 18:00; Stop 01/12/19 at 18:08; Status DC Fentanyl Citrate (Fentanyl 2ml Vial) 25 mcg PRN Q2HR PRN IV PAIN Last administered on 01/18/19 07:34; Start 01/12/19 at 18:30 Piperacillin Sod/ Tazobactam Sod 3.375 gm/Sodium Chloride 50 ml @ 100 mls/hr Q6HRS IV Last administered on 01/13/19 06:13; Start 01/13/19 at 00:00; Stop 01/13/19 at 11:26; Status DC Vancomycin HCl 750 mg/Sodium Chloride 250 ml @ 250 mls/hr Q24H IV Last administered on 01/13/19 17:11; Start 01/13/19 at 18:00; Stop 01/14/19 at 18:54; Status DC Vancomycin HCl (Vancomycin Trough Level) 1 each 1X ONCE MC Last administered on 01/14/19 17:30; Start 01/14/19 at 17:30; Stop 01/14/19 at 17:31; Status DC Amlodipine Besylate (Norvasc) 5 mg DAILY PO Last administered on 01/15/19 08:36; Start 01/13/19 at 09:00; Stop 01/15/19 at 20:49; Status DC Fentanyl (Duragesic 50mcg/ Hr Patch) 1 patch Q3DAYS TD ; Start 01/15/19 at 09:00; Status UNV Gabapentin (Neurontin) 300 mg BID PO Last administered on 01/18/19 08:24; Start 01/12/19 at 21:00 Lactobacillus Rhamnosus (Culturelle) 1 cap BID PO Last administered on 01/18/19 08:25; Start 01/12/19 at 21:00 Metoclopramide HCl (Reglan) 5 mg QIDACHS PO Last administered on 01/18/19 07:33; Start 01/12/19 at 21:00 Ondansetron HCl (Zofran Odt) 4 mg PRN Q6HRS PRN PEG NAUSEA/VOMITING Last administered on 01/16/19 19:14; Start 01/12/19 at 19:45 Oxycodone/ Acetaminophen (Percocet 7.5/ 325) 1 tab PRN QID PRN PO MODERATE TO SEVERE PAIN Last administered on 01/18/19 00:12; Start 01/12/19 at 19:45 Non-Formulary Medication (Albuterol Sulfate (Albuterol Sulfate Neb Soln)) 1 vial QID NEB ; Start 01/12/19 at 21:00; Status UNV Cyproheptadine HCl (Periactin) 4 mg TID PEG Last administered on 01/18/19 08:25; Start 01/12/19 at 21:00 Donepezil HCl (Aricept) 5 mg BID PEG Last administered on 01/18/19 08:24; Start 01/13/19 at 09:00 Pantoprazole Sodium (PROTONIX VIAL for IV PUSH) 40 mg DAILYAC IVP ; Start 01/13/19 at 07:30; Status UNV Enoxaparin Sodium (Lovenox 40mg Syringe) 40 mg Q24H SQ Last administered on 01/17/19 21:29; Start 01/12/19 at 20:00 Albuterol Sulfate (Ventolin Neb Soln) 2.5 mg RTQID NEB Last administered on 01/18/19 07:14; Start 01/12/19 at 20:00 Lansoprazole (Prevacid) 30 mg DAILYAC PEG Last administered on 01/18/19 07:33; Start 01/13/19 at 07:30 Fentanyl (Duragesic 50mcg/ Hr Patch) 1 patch Q3DAYS TD Last administered on 01/18/19 08:25; Start 01/12/19 at 21:00 Ceftolozane/ Tazobactam 1500 mg/Sodium Chloride 100 ml @ 100 mls/hr Q8HRS IV Last administered on 01/18/19 05:53; Start 01/13/19 at 14:00 Polyethylene Glycol (miraLAX PACKET) 17 gm PRN BID PRN GT CONSTIPATION Last administered on 01/16/19 08:29; Start 01/13/19 at 12:45 Ondansetron HCl (Zofran) 4 mg PRN Q8HRS PRN IV NAUSEA/VOMITING Last administered on 01/16/19 15:00; Start 01/13/19 at 18:45 Vancomycin HCl 1 gm/Sodium Chloride 250 ml @ 250 mls/hr 1X ONCE IV Last administered on 01/14/19 20:01; Start 01/14/19 at 19:30; Stop 01/14/19 at 20:29; Status DC Vancomycin HCl 750 mg/Sodium Chloride 250 ml @ 250 mls/hr Q12H IV Last administered on 5/4/19at 20:53; Start 01/15/19 at 08:00; Stop 01/16/19 at 10:34; Status DC Vancomycin HCl (Vancomycin Trough Level) 1 each 1X ONCE MC Last administered on 01/16/19at 07:30; Start 01/16/19 at 07:30; Stop 01/16/19 at 07:31; Status DC Amlodipine Besylate (Norvasc) 10 mg DAILY PO Last administered on 01/18/19at 08:24; Start 01/16/19 at 09:00 Amlodipine Besylate (Norvasc) 5 mg 1X ONCE PO Last administered on 01/15/19at 21:01; Start 01/15/19 at 21:00; Stop 01/15/19 at 21:01; Status DC Vancomycin HCl 1 gm/Sodium Chloride 250 ml @ 250 mls/hr Q12H IV Last a dministered on 01/17/19at 11:54; Start 01/16/19 at 11:00; Stop 01/17/19 at 13:42; Status DC Alteplase, Recombinant (Cathflo For Central Catheter Clearance) 1 mg 1X ONCE INT CAT Last administered on 01/16/19at 16:01; Start 01/16/19 at 13:15; Stop 01/16/19 at 13:16; Status DC Nitroglycerin (Nitrostat) 0.4 mg STK-MED ONCE SL ; Start 01/17/19 at 19:00; Stop 01/17/19 at 19:01; Status DC Iron Sucrose 500 mg/Sodium Chloride 275 ml @ 78.571 mls/ hr 1X ONCE IV ; Start 01/18/19 at 09:00; Stop 01/18/19 at 12:29 Active Scripts Active Percocet 7.5-325 Mg Tablet (Oxycodone/Acetaminophen) 1 Each Tablet 1 Tab PO QID PRN MDD 1 FENTANYL 50mcg/hr (Fentanyl) 1 Each Patch.td72 1 Patch TP Q3DAYS MDD 1 Culturelle (Lactobacillus Rhamnosus Gg) 1 Each Cap.sprink 1 Cap PO BID 30 Days Reported Albuterol Sulfate Neb Soln (Albuterol Sulfate) 0.63 Mg/3 Ml Vial.neb 1 Vial NEB QID Gabapentin (Gabapentin) 300 Mg Capsule 300 Mg PO BID PRN Amlodipine Besylate 5 Mg Tablet 5 Mg PO DAILY Pantoprazole Sodium 40 Mg Tablet.dr 40 Mg PEG BID Donepezil Hcl 5 Mg Tablet 5 Mg PEG BID Reglan (Metoclopramide Hcl) 10 Mg Tablet 5 Mg PO QIDACHS Cyproheptadine Hcl 2 Mg/5 Ml Syrup 10 Ml PEG TID Ondansetron Odt (Ondansetron) 4 Mg Tab.rapdis 4 Mg PEG QIDPRN PRN Vitals/I & O Vital Sign - Last 24 Hours 01/17/19 01/17/19 01/17/19 01/17/19 09:37 10:07 11:00 11:33 Temp 98.8 98.8 Pulse 91 109 Resp 18 18 B/P (MAP) 140/74 137/72 (93) Pulse Ox 100 100 O2 Delivery Tracheal Collar Tracheal Collar Tracheal Collar O2 Flow Rate 10.0 10.0 01/17/19 01/17/19 01/17/19 01/17/19 12:24 13:25 15:00 16:45 Temp 98.6 98.6 Pulse 99 Resp 18 19 18 B/P (MAP) 121/67 (85) Pulse Ox 100 99 O2 Delivery Tracheal Collar Tracheal Collar O2 Flow Rate 10.0 10.0 01/17/19 01/17/19 01/17/19 01/17/19 17:14 17:45 19:04 19:56 Temp 98.0 98.0 Pulse 99 Resp 18 19 16 20 B/P (MAP) 142/73 (96) Pulse Ox 99 100 O2 Delivery Trach collar Tracheal Collar O2 Flow Rate 10.0 10.0 01/17/19 01/17/19 01/17/19 01/17/19 20:00 20:07 20:51 21:49 Pulse Ox 100 100 100 O2 Delivery Trach Collar Tracheal Collar O2 Flow Rate 10.0 10.0 10.0 01/17/19 01/18/19 01/18/19 01/18/19 23:45 01:25 03:29 05:13 Temp 98.3 97.4 98.3 97.4 Pulse 90 109 Resp 20 16 B/P (MAP) 132/68 (89) 176/96 (122) Pulse Ox 100 96 O2 Delivery Tracheal Collar Tracheal Collar O2 Flow Rate 10.0 10.0 01/18/19 01/18/19 01/18/19 01/18/19 06:07 07:17 07:20 07:34 Temp 98.3 98.3 Pulse 102 Resp 14 16 B/P (MAP) 179/88 (118) Pulse Ox 96 97 100 97 O2 Delivery Tracheal Collar Tracheal Collar O2 Flow Rate 10.0 10.0 10.0 01/18/19 01/18/19 08:24 08:25 Pulse 102 B/P (MAP) 179/88 Pulse Ox 97 O2 Flow Rate 10.0 Intake and Output 01/17/19 01/17/19 01/18/19 15:00 23:00 07:00 Intake Total 1080 ml 540 ml 0 ml Output Total 500 ml Balance 1080 ml 540 ml -500 ml Nutrition Consultation Dietary Evaluation: Comments: Continue with TF order Expected Outcomes/Goals: TF tolerance- met, goal ongoing Malnutrition Findings: Body Fat Depletion (Non Severe: Mild Depletion Weight Status: Underweight BRIJESH JARAMILLO MD January 18, 2019 09:09
[2019-01-18] MEDS: ONDANSETRON PF 4 MG/2 ML VIAL. IV PRN (09:11)
--- NOTE | 2019-01-18 09:25 | PDOC ---
PULMONARY PROGRESS NOTES Subjective NOT MORE SOA Vitals Vital Signs Date Time Temp Pulse Resp B/P (MAP) Pulse Ox O2 Delivery O2 Flow Rate FiO2 01/18/19 08:25 97 10.0 01/18/19 08:24 102 179/88 01/18/19 07:34 16 01/18/19 07:20 98.3 Tracheal Collar 98.3 General: Alert, No acute distress Lungs: Crackles Cardiovascular: S1, S2 Abdomen: Soft, Non-tender Extremities: No Edema Labs Laboratory Tests Test 01/16/19 10:00 01/17/19 05:30 01/18/19 03:40 White Blood Count 11.1 x10^3/uL (4.0-11.0) 11.4 x10^3/uL (4.0-11.0) 10.4 x10^3/uL (4.0-11.0) Red Blood Count 4.80 x10^6/uL (3.50-5.40) 4.17 x10^6/uL (3.50-5.40) 3.73 x10^6/uL (3.50-5.40) Hemoglobin 10.0 g/dL (12.0-15.5) 8.6 g/dL (12.0-15.5) 7.7 g/dL (12.0-15.5) Hematocrit 34.1 % (36.0-47.0) 29.5 % (36.0-47.0) 26.3 % (36.0-47.0) Mean Corpuscular Volume 71 fL (79-100) 71 fL (79-100) 71 fL (79-100) Mean Corpuscular Hemoglobin 21 pg (25-35) 21 pg (25-35) 21 pg (25-35) Mean Corpuscular Hemoglobin Concent 29 g/dL (31-37) 29 g/dL (31-37) 29 g/dL (31-37) Red Cell Distribution Width 19.0 % (11.5-14.5) 18.7 % (11.5-14.5) 19.3 % (11.5-14.5) Platelet Count 624 x10^3/uL (140-400) 498 x10^3/uL (140-400) 437 x10^3/uL (140-400) Neutrophils (%) (Auto) 81 % (31-73) 75 % (31-73) 74 % (31-73) Lymphocytes (%) (Auto) 14 % (24-48) 17 % (24-48) 18 % (24-48) Monocytes (%) (Auto) 3 % (0-9) 5 % (0-9) 5 % (0-9) Eosinophils (%) (Auto) 2 % (0-3) 2 % (0-3) 2 % (0-3) Basophils (%) (Auto) 1 % (0-3) 1 % (0-3) 1 % (0-3) Neutrophils # (Auto) 9.0 x10^3uL (1.8-7.7) 8.6 x10^3uL (1.8-7.7) 7.7 x10^3uL (1.8-7.7) Lymphocytes # (Auto) 1.5 x10^3/uL (1.0-4.8) 2.0 x10^3/uL (1.0-4.8) 1.9 x10^3/uL (1.0-4.8) Monocytes # (Auto) 0.4 x10^3/uL (0.0-1.1) 0.5 x10^3/uL (0.0-1.1) 0.5 x10^3/uL (0.0-1.1) Eosinophils # (Auto) 0.2 x10^3/uL (0.0-0.7) 0.2 x10^3/uL (0.0-0.7) 0.2 x10^3/uL (0.0-0.7) Basophils # (Auto) 0.1 x10^3/uL (0.0-0.2) 0.1 x10^3/uL (0.0-0.2) 0.1 x10^3/uL (0.0-0.2) Sodium Level 137 mmol/L (136-145) 139 mmol/L (136-145) 138 mmol/L (136-145) Potassium Level 3.8 mmol/L (3.5-5.1) 4.0 mmol/L (3.5-5.1) 4.0 mmol/L (3.5-5.1) Chloride Level 98 mmol/L (98-107) 100 mmol/L (98-107) 102 mmol/L (98-107) Carbon Dioxide Level 33 mmol/L (21-32) 34 mmol/L (21-32) 35 mmol/L (21-32) Anion Gap 6 (6-14) 5 (6-14) 1 (6-14) Blood Urea Nitrogen 14 mg/dL (7-20) 12 mg/dL (7-20) 11 mg/dL (7-20) Creatinine 0.8 mg/dL (0.6-1.0) 0.7 mg/dL (0.6-1.0) 0.6 mg/dL (0.6-1.0) Estimated GFR (Cockcroft-Gault) 84.2 98.2 117.3 Glucose Level 179 mg/dL (70-99) 88 mg/dL (70-99) 88 mg/dL (70-99) Calcium Level 9.7 mg/dL (8.5-10.1) 9.1 mg/dL (8.5-10.1) 9.1 mg/dL (8.5-10.1) Vancomycin Level Trough 13.3 mcg/mL (10.0-20.0) Vancomycin Last Dose Date 01/15/19 Vancomycin Last Dose Time 1999 Laboratory Tests Test 01/18/19 03:40 White Blood Count 10.4 x10^3/uL (4.0-11.0) Red Blood Count 3.73 x10^6/uL (3.50-5.40) Hemoglobin 7.7 g/dL (12.0-15.5) Hematocrit 26.3 % (36.0-47.0) Mean Corpuscular Volume 71 fL (79-100) Mean Corpuscular Hemoglobin 21 pg (25-35) Mean Corpuscular Hemoglobin Concent 29 g/dL (31-37) Red Cell Distribution Width 19.3 % (11.5-14.5) Platelet Count 437 x10^3/uL (140-400) Neutrophils (%) (Auto) 74 % (31-73) Lymphocytes (%) (Auto) 18 % (24-48) Monocytes (%) (Auto) 5 % (0-9) Eosinophils (%) (Auto) 2 % (0-3) Basophils (%) (Auto) 1 % (0-3) Neutrophils # (Auto) 7.7 x10^3uL (1.8-7.7) Lymphocytes # (Auto) 1.9 x10^3/uL (1.0-4.8) Monocytes # (Auto) 0.5 x10^3/uL (0.0-1.1) Eosinophils # (Auto) 0.2 x10^3/uL (0.0-0.7) Basophils # (Auto) 0.1 x10^3/uL (0.0-0.2) Sodium Level 138 mmol/L (136-145) Potassium Level 4.0 mmol/L (3.5-5.1) Chloride Level 102 mmol/L (98-107) Carbon Dioxide Level 35 mmol/L (21-32) Anion Gap 1 (6-14) Blood Urea Nitrogen 11 mg/dL (7-20) Creatinine 0.6 mg/dL (0.6-1.0) Estimated GFR (Cockcroft-Gault) 117.3 Glucose Level 88 mg/dL (70-99) Calcium Level 9.1 mg/dL (8.5-10.1) Medications Active Scripts Medications Dose Route/Sig Max Daily Dose Days Date Category Percocet 7.5-325 Mg Tablet (Oxycodone/Acetaminophen) 1 Each Tablet 1 Tab PO QID PRN MDD 1 12/09/18 Rx FENTANYL 50mcg/hr (Fentanyl) 1 Each Patch.td72 1 Patch TP Q3DAYS MDD 1 12/09/18 Rx Albuterol Sulfate Neb Soln (Albuterol Sulfate) 0.63 Mg/3 Ml Vial.neb 1 Vial NEB QID 12/02/18 Reported Gabapentin (Gabapentin) 300 Mg Capsule 300 Mg PO BID PRN 10/19/18 Reported Amlodipine Besylate 5 Mg Tablet 5 Mg PO DAILY 10/19/18 Reported Culturelle (Lactobacillus Rhamnosus Gg) 1 Each Cap.sprink 1 Cap PO BID 30 07/07/17 Rx Pantoprazole Sodium 40 Mg Tablet.dr 40 Mg PEG BID 03/11/17 Reported Donepezil Hcl 5 Mg Tablet 5 Mg PEG BID 03/11/17 Reported Reglan (Metoclopramide Hcl) 10 Mg Tablet 5 Mg PO QIDACHS 03/11/17 Reported Cyproheptadine Hcl 2 Mg/5 Ml Syrup 10 Ml PEG TID 03/11/17 Reported Ondansetron Odt (Ondansetron) 4 Mg Tab.rapdis 4 Mg PEG QIDPRN PRN 06/19/14 Reported Comments CXR 01/16, 01/17 Resolved RICHARD consolidation c/w 01/12 Impression . 1. Acute on chronic hypoxic respiratory failure secondary to new left upper lobe pneumonia. likely aspiration, now resolved. 2. Abnormal chest x-ray consistent with left upper lobe consolidation. resolved 3. 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 4. Dysphagia. 5. Laryngeal cancer diagnosed on 07/23/2015 status post tracheostomy and status post radiation therapy along with cetuximab with no evidence of recurrent disease. 6. 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 7. 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 ID NOTE Pneumonia, sputum culture grew N resp jewell and PSA susceptibilities pending h/o MDR PSA Plan . ANTIBX PER ID RESP STATUS IS IMPROVING LESS SECRETION 02 NEBS PULMONARY HYGIENE ANURAG LOO MD January 18, 2019 09:25
--- NOTE | 2019-01-18 09:26 | PDOC ---
Infectious Disease Note Subjective Subjective c/o nausea Some SOA and increase work of breathing No fevers/chills Vital Sign Vital Signs Vital Signs Date Time Temp Pulse Resp B/P (MAP) Pulse Ox O2 Delivery O2 Flow Rate FiO2 01/18/19 08:25 97 10.0 01/18/19 08:24 102 179/88 01/18/19 07:34 16 01/18/19 07:20 98.3 Tracheal Collar 98.3 Physical Exam PHYSICAL EXAM GENERAL: Propped up in bed, alert, NAD HENT: Oral cavity clear NECK: Trach shield LUNGS: congested, tachypneic HEART: S1, S2 ABDOMEN: Soft, NT, PEG EXTREMITIES: No edema or cyanosis. SKIN: No rash NEUROLOGIC: Alert, responding appropriately Port clean Labs Lab Laboratory Tests Test 01/18/19 03:40 White Blood Count 10.4 x10^3/uL (4.0-11.0) Red Blood Count 3.73 x10^6/uL (3.50-5.40) Hemoglobin 7.7 g/dL (12.0-15.5) Hematocrit 26.3 % (36.0-47.0) Mean Corpuscular Volume 71 fL (79-100) Mean Corpuscular Hemoglobin 21 pg (25-35) Mean Corpuscular Hemoglobin Concent 29 g/dL (31-37) Red Cell Distribution Width 19.3 % (11.5-14.5) Platelet Count 437 x10^3/uL (140-400) Neutrophils (%) (Auto) 74 % (31-73) Lymphocytes (%) (Auto) 18 % (24-48) Monocytes (%) (Auto) 5 % (0-9) Eosinophils (%) (Auto) 2 % (0-3) Basophils (%) (Auto) 1 % (0-3) Neutrophils # (Auto) 7.7 x10^3uL (1.8-7.7) Lymphocytes # (Auto) 1.9 x10^3/uL (1.0-4.8) Monocytes # (Auto) 0.5 x10^3/uL (0.0-1.1) Eosinophils # (Auto) 0.2 x10^3/uL (0.0-0.7) Basophils # (Auto) 0.1 x10^3/uL (0.0-0.2) Sodium Level 138 mmol/L (136-145) Potassium Level 4.0 mmol/L (3.5-5.1) Chloride Level 102 mmol/L (98-107) Carbon Dioxide Level 35 mmol/L (21-32) Anion Gap 1 (6-14) Blood Urea Nitrogen 11 mg/dL (7-20) Creatinine 0.6 mg/dL (0.6-1.0) Estimated GFR (Cockcroft-Gault) 117.3 Glucose Level 88 mg/dL (70-99) Calcium Level 9.1 mg/dL (8.5-10.1) Micro 01/12. BLD CULT RESULT 1 Final Staphylococcus hominis MICS are expressed in micrograms per mL Antibiotic RSLT#1 Ciprofloxacin S =1 Clindamycin S<=0.25 Erythromycin R>=8 Gentamicin S<=0.5 Levofloxacin S =0.25 Nitrofurantoin S<=16 Oxacillin R =1 Penicillin R>=0.5 Rifampin S<=0.5 Tetracycline R>=16 Trimethoprim/Sulfa R =80 Vancomycin S =1 SPUTUM SPUTUM CULT RES 2 Final Comment Routine respiratory jewell SPUTUM CULT RES 3 Final Comment Pseudomonas aeruginosa Objective Assessment GPC bacteremia 1 of 3 bottles, from 01/12, likely contaminate. Staph hominis Fever better Leukocytosis - trending down Hypoxia Pneumonia, sputum culture grew N resp jewell and PSA susceptibilities pending h/o MDR PSA Plan Plan of Care Cont Zerbaxa (since 01/13) F/U susceptibilities Zerbaxa and Vabomere added to testing, d/w micro Probiotics Pt seen and examined , agree with above chato junior p RAISA VILLAR APRN January 18, 2019 09:26 ELIE MATOS MD January 18, 2019 11:32
--- NOTE | 2019-01-18 09:54 | PDOC ---
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 status post recent bronch 01/01/19 Acute on chronic hypercapnic respiratory failure Chronic dysphagia, chronically PEG on tube feeds Hx of lung cancer and laryngeal cancer - s/p trach, stable HTN History of Present Illness History of Present Illness Almost rapid response yesterday-some hypoxia and SOA Colleague had to come at bedside Chest x-ray ordered during the night which showed similar chest x-ray findings in the morning She just needed to be suctioned She gets a bit uncomfortable with deep suctioning Chart looks good No fever, ID and pulmonary on board On Zerbaxa IV every 8 Plan: we'll DC with home health once on by mouth antibiotics Continue same for now Vitals Vitals Vital Signs Date Time Temp Pulse Resp B/P (MAP) Pulse Ox O2 Delivery O2 Flow Rate FiO2 01/18/19 08:25 97 10.0 01/18/19 08:24 102 179/88 01/18/19 07:34 16 01/18/19 07:20 98.3 Tracheal Collar 98.3 Physical Exam Physical Exam GENERAL: Propped up in bed, alert, NAD HENT: Oral cavity clear NECK: Trach shield LUNGS: congested, tachypneic HEART: S1, S2 ABDOMEN: Soft, NT, PEG EXTREMITIES: No edema or cyanosis. SKIN: No rash NEUROLOGIC: Alert, responding appropriately Port clean General: Alert, Oriented X3, No acute distress Heart: Regular rate Lungs: Crackles Abdomen: Normal bowel sounds, Soft, No tenderness, No hepatosplenomegaly, No masses, Other (PEG site clean) Extremities: No clubbing, No cyanosis, No edema, Normal pulses, No tenderness/swelling Skin: No rashes, No breakdown, No significant lesion Labs LABS Laboratory Tests Test 01/18/19 03:40 White Blood Count 10.4 x10^3/uL (4.0-11.0) Red Blood Count 3.73 x10^6/uL (3.50-5.40) Hemoglobin 7.7 g/dL (12.0-15.5) Hematocrit 26.3 % (36.0-47.0) Mean Corpuscular Volume 71 fL (79-100) Mean Corpuscular Hemoglobin 21 pg (25-35) Mean Corpuscular Hemoglobin Concent 29 g/dL (31-37) Red Cell Distribution Width 19.3 % (11.5-14.5) Platelet Count 437 x10^3/uL (140-400) Neutrophils (%) (Auto) 74 % (31-73) Lymphocytes (%) (Auto) 18 % (24-48) Monocytes (%) (Auto) 5 % (0-9) Eosinophils (%) (Auto) 2 % (0-3) Basophils (%) (Auto) 1 % (0-3) Neutrophils # (Auto) 7.7 x10^3uL (1.8-7.7) Lymphocytes # (Auto) 1.9 x10^3/uL (1.0-4.8) Monocytes # (Auto) 0.5 x10^3/uL (0.0-1.1) Eosinophils # (Auto) 0.2 x10^3/uL (0.0-0.7) Basophils # (Auto) 0.1 x10^3/uL (0.0-0.2) Sodium Level 138 mmol/L (136-145) Potassium Level 4.0 mmol/L (3.5-5.1) Chloride Level 102 mmol/L (98-107) Carbon Dioxide Level 35 mmol/L (21-32) Anion Gap 1 (6-14) Blood Urea Nitrogen 11 mg/dL (7-20) Creatinine 0.6 mg/dL (0.6-1.0) Estimated GFR (Cockcroft-Gault) 117.3 Glucose Level 88 mg/dL (70-99) Calcium Level 9.1 mg/dL (8.5-10.1) Review of Systems Review of Systems A 14 point ROS was completed with the following noted as positive: Other systems reviewed and negative. \CONSTITUTIONAL: No fever or chills EYES: No recent changes SKIN: No rash or itching CARDIOVASCULAR: No chest pain, syncope, palpitations, or edema RESPIRATORY: No SOB or cough GASTROINTESTINAL: No nausea, vomiting or abdominal pain NEUROLOGICAL: No headaches or weakness ENDOCRINE: No cold or heat intolerance GENITOURINARY: No urgency or frequency of urination MUSCULOSKELETAL: No back pain or joint pain LYMPHATICS: No enlarged lymph nodes PSYCHIATRIC: No anxiety or depression Assessment and Plan Assessmemt and Plan Problems Medical Problems: (1) Dyspnea Status: Acute Comment Review of Relevant I have reviewed the following items miko (where applicable) has been applied. Labs Laboratory Tests Test 5/5/19 10:00 01/17/19 05:30 01/18/19 03:40 White Blood Count 11.1 x10^3/uL (4.0-11.0) 11.4 x10^3/uL (4.0-11.0) 10.4 x10^3/uL (4.0-11.0) Red Blood Count 4.80 x10^6/uL (3.50-5.40) 4.17 x10^6/uL (3.50-5.40) 3.73 x10^6/uL (3.50-5.40) Hemoglobin 10.0 g/dL (12.0-15.5) 8.6 g/dL (12.0-15.5) 7.7 g/dL (12.0-15.5) Hematocrit 34.1 % (36.0-47.0) 29.5 % (36.0-47.0) 26.3 % (36.0-47.0) Mean Corpuscular Volume 71 fL (79-100) 71 fL (79-100) 71 fL (79-100) Mean Corpuscular Hemoglobin 21 pg (25-35) 21 pg (25-35) 21 pg (25-35) Mean Corpuscular Hemoglobin Concent 29 g/dL (31-37) 29 g/dL (31-37) 29 g/dL (31-37) Red Cell Distribution Width 19.0 % (11.5-14.5) 18.7 % (11.5-14.5) 19.3 % (11.5-14.5) Platelet Count 624 x10^3/uL (140-400) 498 x10^3/uL (140-400) 437 x10^3/uL (140-400) Neutrophils (%) (Auto) 81 % (31-73) 75 % (31-73) 74 % (31-73) Lymphocytes (%) (Auto) 14 % (24-48) 17 % (24-48) 18 % (24-48) Monocytes (%) (Auto) 3 % (0-9) 5 % (0-9) 5 % (0-9) Eosinophils (%) (Auto) 2 % (0-3) 2 % (0-3) 2 % (0-3) Basophils (%) (Auto) 1 % (0-3) 1 % (0-3) 1 % (0-3) Neutrophils # (Auto) 9.0 x10^3uL (1.8-7.7) 8.6 x10^3uL (1.8-7.7) 7.7 x10^3uL (1.8-7.7) Lymphocytes # (Auto) 1.5 x10^3/uL (1.0-4.8) 2.0 x10^3/uL (1.0-4.8) 1.9 x10^3/uL (1.0-4.8) Monocytes # (Auto) 0.4 x10^3/uL (0.0-1.1) 0.5 x10^3/uL (0.0-1.1) 0.5 x10^3/uL (0.0-1.1) Eosinophils # (Auto) 0.2 x10^3/uL (0.0-0.7) 0.2 x10^3/uL (0.0-0.7) 0.2 x10^3/uL (0.0-0.7) Basophils # (Auto) 0.1 x10^3/uL (0.0-0.2) 0.1 x10^3/uL (0.0-0.2) 0.1 x10^3/uL (0.0-0.2) Sodium Level 137 mmol/L (136-145) 139 mmol/L (136-145) 138 mmol/L (136-145) Potassium Level 3.8 mmol/L (3.5-5.1) 4.0 mmol/L (3.5-5.1) 4.0 mmol/L (3.5-5.1) Chloride Level 98 mmol/L (98-107) 100 mmol/L (98-107) 102 mmol/L (98-107) Carbon Dioxide Level 33 mmol/L (21-32) 34 mmol/L (21-32) 35 mmol/L (21-32) Anion Gap 6 (6-14) 5 (6-14) 1 (6-14) Blood Urea Nitrogen 14 mg/dL (7-20) 12 mg/dL (7-20) 11 mg/dL (7-20) Creatinine 0.8 mg/dL (0.6-1.0) 0.7 mg/dL (0.6-1.0) 0.6 mg/dL (0.6-1.0) Estimated GFR (Cockcroft-Gault) 84.2 98.2 117.3 Glucose Level 179 mg/dL (70-99) 88 mg/dL (70-99) 88 mg/dL (70-99) Calcium Level 9.7 mg/dL (8.5-10.1) 9.1 mg/dL (8.5-10.1) 9.1 mg/dL (8.5-10.1) Vancomycin Level Trough 13.3 mcg/mL (10.0-20.0) Vancomycin Last Dose Date 01/15/19 Vancomycin Last Dose Time 1999 Laboratory Tests Test 01/18/19 03:40 White Blood Count 10.4 x10^3/uL (4.0-11.0) Red Blood Count 3.73 x10^6/uL (3.50-5.40) Hemoglobin 7.7 g/dL (12.0-15.5) Hematocrit 26.3 % (36.0-47.0) Mean Corpuscular Volume 71 fL (79-100) Mean Corpuscular Hemoglobin 21 pg (25-35) Mean Corpuscular Hemoglobin Concent 29 g/dL (31-37) Red Cell Distribution Width 19.3 % (11.5-14.5) Platelet Count 437 x10^3/uL (140-400) Neutrophils (%) (Auto) 74 % (31-73) Lymphocytes (%) (Auto) 18 % (24-48) Monocytes (%) (Auto) 5 % (0-9) Eosinophils (%) (Auto) 2 % (0-3) Basophils (%) (Auto) 1 % (0-3) Neutrophils # (Auto) 7.7 x10^3uL (1.8-7.7) Lymphocytes # (Auto) 1.9 x10^3/uL (1.0-4.8) Monocytes # (Auto) 0.5 x10^3/uL (0.0-1.1) Eosinophils # (Auto) 0.2 x10^3/uL (0.0-0.7) Basophils # (Auto) 0.1 x10^3/uL (0.0-0.2) Sodium Level 138 mmol/L (136-145) Potassium Level 4.0 mmol/L (3.5-5.1) Chloride Level 102 mmol/L (98-107) Carbon Dioxide Level 35 mmol/L (21-32) Anion Gap 1 (6-14) Blood Urea Nitrogen 11 mg/dL (7-20) Creatinine 0.6 mg/dL (0.6-1.0) Estimated GFR (Cockcroft-Gault) 117.3 Glucose Level 88 mg/dL (70-99) Calcium Level 9.1 mg/dL (8.5-10.1) Microbiology 01/12/19 Blood Culture - Final, Complete NO GROWTH AFTER 5 DAYS 01/14/19 - Final, Resulted 01/14/19 - Final, Resulted 01/14/19 - Final, Resulted 01/14/19 - Final, Resulted 01/14/19 - Final, Resulted 01/14/19 Gram Stain Evaluation - Final, Resulted 01/14/19 Sputum Culture - Preliminary, Resulted 01/14/19 Sputum Result 1 - Final, Resulted 01/14/19 Sputum Result 2 - Final, Resulted 01/14/19 - Final, Resulted Medications Current Medications Albuterol/ Ipratropium (Duoneb) 3 ml 1X ONCE NEB Last administered on 01/12/19at 14:56; Start 01/12/19 at 14:30; Stop 01/12/19 at 14:35; Status DC Piperacillin Sod/ Tazobactam Sod (Zosyn Per Pharmacy) 1 each PRN DAILY PRN MC SEE COMMENTS; Start 01/12/19 at 16:15; Status Cancel Vancomycin HCl (Vanco Per Pharmacy) 1 each PRN DAILY PRN MC SEE COMMENTS Last administered on 01/16/19at 10:42; Start 01/12/19 at 16:15; Stop 01/17/19 at 13:44; Status DC Vancomycin HCl 1.25 gm/Sodium Chloride 250 ml @ 166.667 mls/hr 1X ONCE IV Last administered on 01/12/19at 18:18; Start 01/12/19 at 16:15; Stop 01/12/19 at 17:44; Status DC Piperacillin Sod/ Tazobactam Sod 3.375 gm/Sodium Chloride 50 ml @ 100 mls/hr 1X ONCE IV Last administered on 01/12/19 17:28; Start 01/12/19 at 16:15; Stop 01/12/19 at 16:44; Status DC Oxycodone/ Acetaminophen (Percocet 5/325) 1 tab 1X ONCE PO Last administered on 01/12/19 18:18; Start 01/12/19 at 18:00; Stop 01/12/19 at 18:08; Status DC Fentanyl Citrate (Fentanyl 2ml Vial) 25 mcg PRN Q2HR PRN IV PAIN Last administered on 01/18/19 07:34; Start 01/12/19 at 18:30 Piperacillin Sod/ Tazobactam Sod 3.375 gm/Sodium Chloride 50 ml @ 100 mls/hr Q6HRS IV Last administered on 01/13/19 06:13; Start 01/13/19 at 00:00; Stop 01/13/19 at 11:26; Status DC Vancomycin HCl 750 mg/Sodium Chloride 250 ml @ 250 mls/hr Q24H IV Last administered on 01/13/19 17:11; Start 01/13/19 at 18:00; Stop 01/14/19 at 18:54; Status DC Vancomycin HCl (Vancomycin Trough Level) 1 each 1X ONCE MC Last administered on 01/14/19 17:30; Start 01/14/19 at 17:30; Stop 01/14/19 at 17:31; Status DC Amlodipine Besylate (Norvasc) 5 mg DAILY PO Last administered on 01/15/19 08:36; Start 01/13/19 at 09:00; Stop 01/15/19 at 20:49; Status DC Fentanyl (Duragesic 50mcg/ Hr Patch) 1 patch Q3DAYS TD ; Start 01/15/19 at 09:00; Status UNV Gabapentin (Neurontin) 300 mg BID PO Last administered on 01/18/19 08:24; Start 01/12/19 at 21:00 Lactobacillus Rhamnosus (Culturelle) 1 cap BID PO Last administered on 01/18/19 08:25; Start 01/12/19 at 21:00 Metoclopramide HCl (Reglan) 5 mg QIDACHS PO Last administered on 01/18/19 07 :33; Start 01/12/19 at 21:00 Ondansetron HCl (Zofran Odt) 4 mg PRN Q6HRS PRN PEG NAUSEA/VOMITING Last administered on 01/16/19 19:14; Start 01/12/19 at 19:45 Oxycodone/ Acetaminophen (Percocet 7.5/ 325) 1 tab PRN QID PRN PO MODERATE TO SEVERE PAIN Last administered on 01/18/19 00:12; Start 01/12/19 at 19:45 Non-Formulary Medication (Albuterol Sulfate (Albuterol Sulfate Neb Soln)) 1 vial QID NEB ; Start 01/12/19 at 21:00; Status UNV Cyproheptadine HCl (Periactin) 4 mg TID PEG Last administered on 01/18/19 08 :25; Start 01/12/19 at 21:00 Donepezil HCl (Aricept) 5 mg BID PEG Last administered on 01/18/19 08:24; Start 01/13/19 at 09:00 Pantoprazole Sodium (PROTONIX VIAL for IV PUSH) 40 mg DAILYAC IVP ; Start 01/13/19 at 07:30; Status UNV Enoxaparin Sodium (Lovenox 40mg Syringe) 40 mg Q24H SQ Last administered on 01/17/19 21:29; Start 01/12/19 at 20:00 Albuterol Sulfate (Ventolin Neb Soln) 2.5 mg RTQID NEB Last administered on 01/18/19 07:14; Start 01/12/19 at 20:00 Lansoprazole (Prevacid) 30 mg DAILYAC PEG Last administered on 01/18/19 07:33; Start 01/13/19 at 07:30 Fentanyl (Duragesic 50mcg/ Hr Patch) 1 patch Q3DAYS TD Last administered on 01/18/19 08:25; Start 01/12/19 at 21:00 Ceftolozane/ Tazobactam 1500 mg/Sodium Chloride 100 ml @ 100 mls/hr Q8HRS IV Last administered on 01/18/19 05:53; Start 01/13/19 at 14:00 Polyethylene Glycol (miraLAX PACKET) 17 gm PRN BID PRN GT CONSTIPATION Last administered on 5/5/19at 08:29; Start 01/13/19 at 12:45 Ondansetron HCl (Zofran) 4 mg PRN Q8HRS PRN IV NAUSEA/VOMITING Last adm inistered on 01/18/19at 09:11; Start 01/13/19 at 18:45 Vancomycin HCl 1 gm/Sodium Chloride 250 ml @ 250 mls/hr 1X ONCE IV Last a dministered on 01/14/19 20:01; Start 01/14/19 at 19:30; Stop 01/14/19 at 20:29; Status DC Vancomycin HCl 750 mg/Sodium Chloride 250 ml @ 250 mls/hr Q12H IV Last administered on 01/15/19at 20:53; Start 01/15/19 at 08:00; Stop 01/16/19 at 10:34; Status DC Vancomycin HCl (Vancomycin Trough Level) 1 each 1X ONCE MC Last administered on 01/16/19at 07:30; Start 01/16/19 at 07:30; Stop 01/16/19 at 07:31; Status DC Amlodipine Besylate (Norvasc) 10 mg DAILY PO Last administered on 01/18/19at 08:24; Start 01/16/19 at 09:00 Amlodipine Besylate (Norvasc) 5 mg 1X ONCE PO Last administered on 01/15/19at 21:01; Start 01/15/19 at 21:00; Stop 01/15/19 at 21:01; Status DC Vancomycin HCl 1 gm/Sodium Chloride 250 ml @ 250 mls/hr Q12H IV Last administered on 01/17/19at 11:54; Start 01/16/19 at 11:00; Stop 01/17/19 at 13:42; Status DC Alteplase, Recombinant (Cathflo For Central Catheter Clearance) 1 mg 1X ONCE INT CAT Last administered on 01/16/19at 16:01; Start 01/16/19 at 13:15; Stop 01/16/19 at 13:16; Status DC Nitroglycerin (Nitrostat) 0.4 mg STK-MED ONCE SL ; Start 01/17/19 at 19:00; Stop 01/17/19 at 19:01; Status DC Iron Sucrose 500 mg/Sodium Chloride 275 ml @ 78.571 mls/ hr 1X ONCE IV ; Start 01/18/19 at 09:00; Stop 01/18/19 at 12:29 Active Scripts Active Percocet 7.5-325 Mg Tablet (Oxycodone/Acetaminophen) 1 Each Tablet 1 Tab PO QID PRN MDD 1 FENTANYL 50mcg/hr (Fentanyl) 1 Each Patch.td72 1 Patch TP Q3DAYS MDD 1 Culturelle (Lactobacillus Rhamnosus Gg) 1 Each Cap.sprink 1 Cap PO BID 30 Days Reported Albuterol Sulfate Neb Soln (Albuterol Sulfate) 0.63 Mg/3 Ml Vial.neb 1 Vial NEB QID Gabapentin (Gabapentin) 300 Mg Capsule 300 Mg PO BID PRN Amlodipine Besylate 5 Mg Tablet 5 Mg PO DAILY Pantoprazole Sodium 40 Mg Tablet.dr 40 Mg PEG BID Donepezil Hcl 5 Mg Tablet 5 Mg PEG BID Reglan (Metoclopramide Hcl) 10 Mg Tablet 5 Mg PO QIDACHS Cyproheptadine Hcl 2 Mg/5 Ml Syrup 10 Ml PEG TID Ondansetron Odt (Ondansetron) 4 Mg Tab.rapdis 4 Mg PEG QIDPRN PRN Vitals/I & O Vital Sign - Last 24 Hours 01/17/19 01/17/19 01/17/19 01/17/19 10:07 11:00 11:33 12:24 Temp 98.8 98.8 Pulse 109 Resp 18 18 18 B/P (MAP) 137/72 (93) Pulse Ox 100 100 100 O2 Delivery Tracheal Collar Tracheal Collar Tracheal Collar O2 Flow Rate 10.0 10.0 10.0 01/17/19 01/17/19 01/17/19 01/17/19 13:25 15:00 16:45 17:14 Temp 98.6 98.6 Pulse 99 Resp 19 18 18 B/P (MAP) 121/67 (85) Pulse Ox 99 99 O2 Delivery Tracheal Collar Tracheal Collar O2 Flow Rate 10.0 10.0 01/17/19 01/17/19 01/17/19 01/17/19 17:45 19:04 19:56 20:00 Temp 98.0 98.0 Pulse 99 Resp 19 16 20 B/P (MAP) 142/73 (96) Pulse Ox 100 O2 Delivery Trach collar Tracheal Collar Trach Collar O2 Flow Rate 10.0 10.0 01/17/19 01/17/19 01/17/19 01/17/19 20:07 20:51 21:49 23:45 Temp 98.3 98.3 Pulse 90 Resp 20 B/P (MAP) 132/68 (89) Pulse Ox 100 100 100 100 O2 Delivery Tracheal Collar Tracheal Collar O2 Flow Rate 10.0 10.0 01/18/19 01/18/19 01/18/19 01/18/19 01:25 03:29 05:13 06:07 Temp 97.4 97.4 Pulse 109 Resp 16 B/P (MAP) 176/96 (122) Pulse Ox 96 96 O2 Delivery Tracheal Collar O2 Flow Rate 10.0 10.0 10.0 01/18/19 01/18/19 01/18/19 01/18/19 07:17 07:20 07:34 08:24 Temp 98.3 98.3 Pulse 102 102 Resp 14 16 B/P (MAP) 179/88 (118) 179/88 Pulse Ox 97 100 97 O2 Delivery Tracheal Collar Tracheal Collar O2 Flow Rate 10.0 10.0 01/18/19 08:25 Pulse Ox 97 O2 Flow Rate 10.0 Intake and Output 01/17/19 01/17/19 01/18/19 15:00 23:00 07:00 Intake Total 1080 ml 540 ml 0 ml Output Total 500 ml Balance 1080 ml 540 ml -500 ml Nutrition Consultation Dietary Evaluation: Comments: Continue with TF order Expected Outcomes/Goals: TF tolerance- met, goal ongoing Malnutrition Findings: Body Fat Depletion (Non Severe: Mild Depletion Weight Status: Underweight HEAVEN KRAUS MD January 18, 2019 09:54
[2019-01-18 11:15] VITALS: BP 138/69
[2019-01-18 15:00] VITALS: BP 147/79
[2019-01-18 19:59] VITALS: BP 132/75
[2019-01-18] MEDS: ENOXAPARIN 40 MG/0.4 ML SYRINGE. SQ SCH (21:18)
[2019-01-18 23:55] VITALS: BP 107/61
[2019-01-19 03:27] VITALS: BP 132/71
[2019-01-19] MEDS: CEFTOLOZANE/TAZOBACTAM 1,500 MG in IV NORMAL SALINE 100ML 100 ML IV SCH ×3 (05:56→23:32)
[2019-01-19 06:57] LABS: BASO # 0.1 x10^3/uL (0.0-0.2); BASO % 1 % (0-3); EOS # 0.2 x10^3/uL (0.0-0.7); EOS % 2 % (0-3); HEMATOCRIT 26.2 % (36.0-47.0); HEMOGLOBIN 7.7 g/dL (12.0-15.5); LYMPH # 1.6 x10^3/uL (1.0-4.8); LYMPH % 16 % (24-48); MEAN CORPUSCULAR HEMOGLOBIN 21 pg (25-35); MEAN CORPUSCULAR HGB CONC 30 g/dL (31-37); MEAN CORPUSCULAR VOLUME 72 fL (79-100); MONO # 0.5 x10^3/uL (0.0-1.1); MONO % 5 % (0-9); NEUT # 7.7 x10^3uL (1.8-7.7); NEUT % 77 % (31-73); PLATELET COUNT 411 x10^3/uL (140-400); RED BLOOD COUNT 3.64 x10^6/uL (3.50-5.40); WHITE BLOOD COUNT 10.1 x10^3/uL (4.0-11.0)
[2019-01-19 07:00] VITALS: BP 160/84
[2019-01-19 07:03] LABS: CALCIUM 9.2 mg/dL (8.5-10.1); CREATININE 0.7 mg/dL (0.6-1.0); GFR 98.2; POTASSIUM 3.8 mmol/L (3.5-5.1)
[2019-01-19] MEDS: METOCLOPRAMIDE 5 MG TABLET. PO SCH ×4 (07:55→21:38)
[2019-01-19] MEDS: LANSOPRAZOLE 30 MG TAB.RAP.DR PEG SCH (07:55)
[2019-01-19] MEDS: oxyCODONE/APAP 7.5/325 1 TAB TABLET PO PRN ×3 (07:56→22:00)
[2019-01-19] MEDS: CYPROHEPTADINE 4 MG TABLET. PEG SCH ×3 (08:00→21:38)
[2019-01-19] MEDS: GABAPENTIN 300 MG CAPSULE. PO SCH ×2 (08:01→21:38)
[2019-01-19] MEDS: DONEPEZIL HCL 5 MG TABLET. PEG SCH ×2 (08:01→21:38)
[2019-01-19] MEDS: LACTOBACILLUS RHAMNOSUS GG 1 CAPSULE. PO SCH ×2 (08:01→21:38)
[2019-01-19] MEDS: amLODIPine BESYLATE 10 MG TABLET PO SCH (08:03)
[2019-01-19] MEDS: ALBUTEROL SULFATE 2.5 MG/3 ML NEBU. NEB SCH ×4 (08:21→21:25)
--- NOTE | 2019-01-19 09:15 | PDOC ---
PULMONARY PROGRESS NOTES Subjective NOT MORE SOA Vitals Vital Signs Date Time Temp Pulse Resp B/P (MAP) Pulse Ox O2 Delivery O2 Flow Rate FiO2 01/19/19 08:21 92 Tracheal Collar 10.0 01/19/19 08:03 91 146/83 01/19/19 07:56 18 01/19/19 07:00 98.4 98.4 General: Alert, No acute distress Lungs: Crackles Cardiovascular: S1, S2 Abdomen: Soft, Non-tender Extremities: No Edema Labs Laboratory Tests Test 01/18/19 03:40 01/19/19 06:00 White Blood Count 10.4 x10^3/uL (4.0-11.0) 10.1 x10^3/uL (4.0-11.0) Red Blood Count 3.73 x10^6/uL (3.50-5.40) 3.64 x10^6/uL (3.50-5.40) Hemoglobin 7.7 g/dL (12.0-15.5) 7.7 g/dL (12.0-15.5) Hematocrit 26.3 % (36.0-47.0) 26.2 % (36.0-47.0) Mean Corpuscular Volume 71 fL (79-100) 72 fL (79-100) Mean Corpuscular Hemoglobin 21 pg (25-35) 21 pg (25-35) Mean Corpuscular Hemoglobin Concent 29 g/dL (31-37) 30 g/dL (31-37) Red Cell Distribution Width 19.3 % (11.5-14.5) 19.0 % (11.5-14.5) Platelet Count 437 x10^3/uL (140-400) 411 x10^3/uL (140-400) Neutrophils (%) (Auto) 74 % (31-73) 77 % (31-73) Lymphocytes (%) (Auto) 18 % (24-48) 16 % (24-48) Monocytes (%) (Auto) 5 % (0-9) 5 % (0-9) Eosinophils (%) (Auto) 2 % (0-3) 2 % (0-3) Basophils (%) (Auto) 1 % (0-3) 1 % (0-3) Neutrophils # (Auto) 7.7 x10^3uL (1.8-7.7) 7.7 x10^3uL (1.8-7.7) Lymphocytes # (Auto) 1.9 x10^3/uL (1.0-4.8) 1.6 x10^3/uL (1.0-4.8) Monocytes # (Auto) 0.5 x10^3/uL (0.0-1.1) 0.5 x10^3/uL (0.0-1.1) Eosinophils # (Auto) 0.2 x10^3/uL (0.0-0.7) 0.2 x10^3/uL (0.0-0.7) Basophils # (Auto) 0.1 x10^3/uL (0.0-0.2) 0.1 x10^3/uL (0.0-0.2) Sodium Level 138 mmol/L (136-145) 137 mmol/L (136-145) Potassium Level 4.0 mmol/L (3.5-5.1) 3.8 mmol/L (3.5-5.1) Chloride Level 102 mmol/L (98-107) 98 mmol/L (98-107) Carbon Dioxide Level 35 mmol/L (21-32) 36 mmol/L (21-32) Anion Gap 1 (6-14) 3 (6-14) Blood Urea Nitrogen 11 mg/dL (7-20) 10 mg/dL (7-20) Creatinine 0.6 mg/dL (0.6-1.0) 0.7 mg/dL (0.6-1.0) Estimated GFR (Cockcroft-Gault) 117.3 98.2 Glucose Level 88 mg/dL (70-99) 90 mg/dL (70-99) Calcium Level 9.1 mg/dL (8.5-10.1) 9.2 mg/dL (8.5-10.1) Laboratory Tests Test 01/19/19 06:00 White Blood Count 10.1 x10^3/uL (4.0-11.0) Red Blood Count 3.64 x10^6/uL (3.50-5.40) Hemoglobin 7.7 g/dL (12.0-15.5) Hematocrit 26.2 % (36.0-47.0) Mean Corpuscular Volume 72 fL (79-100) Mean Corpuscular Hemoglobin 21 pg (25-35) Mean Corpuscular Hemoglobin Concent 30 g/dL (31-37) Red Cell Distribution Width 19.0 % (11.5-14.5) Platelet Count 411 x10^3/uL (140-400) Neutrophils (%) (Auto) 77 % (31-73) Lymphocytes (%) (Auto) 16 % (24-48) Monocytes (%) (Auto) 5 % (0-9) Eosinophils (%) (Auto) 2 % (0-3) Basophils (%) (Auto) 1 % (0-3) Neutrophils # (Auto) 7.7 x10^3uL (1.8-7.7) Lymphocytes # (Auto) 1.6 x10^3/uL (1.0-4.8) Monocytes # (Auto) 0.5 x10^3/uL (0.0-1.1) Eosinophils # (Auto) 0.2 x10^3/uL (0.0-0.7) Basophils # (Auto) 0.1 x10^3/uL (0.0-0.2) Sodium Level 137 mmol/L (136-145) Potassium Level 3.8 mmol/L (3.5-5.1) Chloride Level 98 mmol/L (98-107) Carbon Dioxide Level 36 mmol/L (21-32) Anion Gap 3 (6-14) Blood Urea Nitrogen 10 mg/dL (7-20) Creatinine 0.7 mg/dL (0.6-1.0) Estimated GFR (Cockcroft-Gault) 98.2 Glucose Level 90 mg/dL (70-99) Calcium Level 9.2 mg/dL (8.5-10.1) Medications Active Scripts Medications Dose Route/Sig Max Daily Dose Days Date Category Percocet 7.5-325 Mg Tablet (Oxycodone/Acetaminophen) 1 Each Tablet 1 Tab PO QID PRN MDD 1 12/09/18 Rx FENTANYL 50mcg/hr (Fentanyl) 1 Each Patch.td72 1 Patch TP Q3DAYS MDD 1 12/09/18 Rx Albuterol Sulfate Neb Soln (Albuterol Sulfate) 0.63 Mg/3 Ml Vial.neb 1 Vial NEB QID 12/02/18 Reported Gabapentin (Gabapentin) 300 Mg Capsule 300 Mg PO BID PRN 10/19/18 Reported Amlodipine Besylate 5 Mg Tablet 5 Mg PO DAILY 10/19/18 Reported Culturelle (Lactobacillus Rhamnosus Gg) 1 Each Cap.sprink 1 Cap PO BID 30 07/07/17 Rx Pantoprazole Sodium 40 Mg Tablet.dr 40 Mg PEG BID 03/11/17 Reported Donepezil Hcl 5 Mg Tablet 5 Mg PEG BID 03/11/17 Reported Reglan (Metoclopramide Hcl) 10 Mg Tablet 5 Mg PO QIDACHS 03/11/17 Reported Cyproheptadine Hcl 2 Mg/5 Ml Syrup 10 Ml PEG TID 03/11/17 Reported Ondansetron Odt (Ondansetron) 4 Mg Tab.rapdis 4 Mg PEG QIDPRN PRN 06/19/14 Reported Comments CXR 01/16, 01/17 Resolved RICHARD consolidation c/w 01/12 Impression . 1. Acute on chronic hypoxic respiratory failure secondary to new left upper lobe pneumonia. likely aspiration, now resolved. 2. Abnormal chest x-ray consistent with left upper lobe consolidation. resolved 3. 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 4. Dysphagia. 5. Laryngeal cancer diagnosed on 07/23/2015 status post tracheostomy and status post radiation therapy along with cetuximab with no evidence of recurrent disease. 6. 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 7. 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 ID NOTE Pneumonia, sputum culture grew N resp jewell and PSA susceptibilities pending h/o MDR PSA Plan . NOTHING TO ADD WILL CONTINUE THE SAME ANTIBX PER ID RESP STATUS IS IMPROVING LESS SECRETION 02 [facility] PULMONARY HYGIENE ANURAG LOO MD January 19, 2019 09:15
[2019-01-19 11:00] VITALS: BP 107/63
--- NOTE | 2019-01-19 11:58 | PDOC ---
Infectious Disease Note Subjective: Subjective c/o nausea Some SOA and increase work of breathing No fevers/chills ROS: ROS Negative except for above. Vital Signs: Vital Signs Vital Signs Date Time Temp Pulse Resp B/P (MAP) Pulse Ox O2 Delivery O2 Flow Rate FiO2 01/19/19 11:00 98.0 90 20 107/63 (78) 95 Tracheal Collar 98.0 01/19/19 09:00 10.0 Physical Exam: PHYSICAL EXAM GENERAL: Propped up in bed, alert, NAD HENT: Oral cavity clear NECK: Trach shield LUNGS: congested, tachypneic HEART: S1, S2 ABDOMEN: Soft, NT, PEG EXTREMITIES: No edema or cyanosis. SKIN: No rash NEUROLOGIC: Alert, responding appropriately Port clean Medications: Inpatient Meds: Current Medications Medications (Trade) Dose Ordered Sig/Yuliana Start Time Stop Time Status Last Admin Dose Admin Albuterol Sulfate (Ventolin Neb Soln) 2.5 mg RTQID 01/12/19 20:00 01/19/19 08:21 2.5 MG Albuterol/ Ipratropium (Duoneb) 3 ml 1X ONCE 01/12/19 14:30 01/12/19 14:35 DC 01/12/19 14:56 3 ML Alteplase, Recombinant (Cathflo For Central Catheter Clearance) 1 mg 1X ONCE 01/16/19 13:15 01/16/19 13:16 DC 01/16/19 16:01 1 MG Amlodipine Besylate (Norvasc) 5 mg 1X ONCE 01/15/19 21:00 01/15/19 21:01 DC 01/15/19 21:01 5 MG Ceftolozane/ Tazobactam 1500 mg/Sodium Chloride 100 ml @ 100 mls/hr Q8HRS 01/13/19 14:00 01/19/19 05:56 100 MLS/HR Cyproheptadine HCl (Periactin) 4 mg TID 01/12/19 21:00 01/19/19 08:00 4 MG Donepezil HCl (Aricept) 5 mg BID 01/13/19 09:00 01/19/19 08:01 5 MG Enoxaparin Sodium (Lovenox 40mg Syringe) 40 mg Q24H 01/12/19 20:00 01/18/19 21:18 40 MG Fentanyl (Duragesic 50mcg/ Hr Patch) 1 patch Q3DAYS 01/12/19 21:00 01/18/19 08:25 1 PATCH Fentanyl Citrate (Fentanyl 2ml Vial) 25 mcg PRN Q2HR PRN 01/12/19 18:30 01/18/19 07:34 25 MCG Gabapentin (Neurontin) 300 mg BID 01/12/19 21:00 01/19/19 08:01 300 MG Iron Sucrose 500 mg/Sodium Chloride 275 ml @ 78.571 mls/ hr 1X ONCE 01/18/19 09:00 01/18/19 12:29 DC 01/18/19 11:40 78.571 MLS/HR Lactobacillus Rhamnosus (Culturelle) 1 cap BID 01/12/19 21:00 01/19/19 08:01 1 CAP Lansoprazole (Prevacid) 30 mg DAILYAC 01/13/19 07:30 01/19/19 07:55 30 MG Metoclopramide HCl (Reglan) 5 mg QIDACHS 01/12/19 21:00 01/19/19 11:36 5 MG Nitroglycerin (Nitrostat) 0.4 mg STK-MED ONCE 01/17/19 19:00 01/17/19 19:01 DC Non-Formulary Medication (Albuterol Sulfate (Albuterol Sulfate Neb Soln)) 1 vial QID 01/12/19 21:00 UNV Ondansetron HCl (Zofran Odt) 4 mg PRN Q6HRS PRN 01/12/19 19:45 01/16/19 19:14 4 MG Ondansetron HCl (Zofran) 4 mg PRN Q8HRS PRN 01/13/19 18:45 01/18/19 09:11 4 MG Oxycodone/ Acetaminophen (Percocet 5/325) 1 tab 1X ONCE 01/12/19 18:00 01/12/19 18:08 DC 01/12/19 18:18 1 TAB Oxycodone/ Acetaminophen (Percocet 7.5/ 325) 1 tab PRN QID PRN 01/12/19 19:45 01/19/19 07:56 1 TAB Pantoprazole Sodium (PROTONIX VIAL for IV PUSH) 40 mg DAILYAC 01/13/19 07:30 UNV Piperacillin Sod/ Tazobactam Sod (Zosyn Per Pharmacy) 1 each PRN DAILY PRN 01/12/19 16:15 Cancel Piperacillin Sod/ Tazobactam Sod 3.375 gm/Sodium Chloride 50 ml @ 100 mls/hr Q6HRS 01/13/19 00:00 01/13/19 11:26 DC 01/13/19 06:13 100 MLS/HR Polyethylene Glycol (miraLAX PACKET) 17 gm PRN BID PRN 01/13/19 12:45 01/16/19 08:29 17 GM Vancomycin HCl (Vanco Per Pharmacy) 1 each PRN DAILY PRN 01/12/19 16:15 01/17/19 13:44 DC 01/16/19 10:42 1 EACH Vancomycin HCl (Vancomycin Trough Level) 1 each 1X ONCE 01/16/19 07:30 01/16/19 07:31 DC 01/16/19 07:30 1 EACH Vancomycin HCl 1.25 gm/Sodium Chloride 250 ml @ 166.667 mls/hr 1X ONCE 01/12/19 16:15 01/12/19 17:44 DC 01/12/19 18:18 166.667 MLS/HR Vancomycin HCl 750 mg/Sodium Chloride 250 ml @ 250 mls/hr Q12H 01/15/19 08:00 01/16/19 10:34 DC 01/15/19 20:53 250 MLS/HR Vancomycin HCl 1 gm/Sodium Chloride 250 ml @ 250 mls/hr Q12H 01/16/19 11:00 01/17/19 13:42 DC 01/17/19 11:54 250 MLS/HR Labs: Lab Laboratory Tests Test 01/19/19 06:00 White Blood Count 10.1 x10^3/uL (4.0-11.0) Red Blood Count 3.64 x10^6/uL (3.50-5.40) Hemoglobin 7.7 g/dL (12.0-15.5) Hematocrit 26.2 % (36.0-47.0) Mean Corpuscular Volume 72 fL (79-100) Mean Corpuscular Hemoglobin 21 pg (25-35) Mean Corpuscular Hemoglobin Concent 30 g/dL (31-37) Red Cell Distribution Width 19.0 % (11.5-14.5) Platelet Count 411 x10^3/uL (140-400) Neutrophils (%) (Auto) 77 % (31-73) Lymphocytes (%) (Auto) 16 % (24-48) Monocytes (%) (Auto) 5 % (0-9) Eosinophils (%) (Auto) 2 % (0-3) Basophils (%) (Auto) 1 % (0-3) Neutrophils # (Auto) 7.7 x10^3uL (1.8-7.7) Lymphocytes # (Auto) 1.6 x10^3/uL (1.0-4.8) Monocytes # (Auto) 0.5 x10^3/uL (0.0-1.1) Eosinophils # (Auto) 0.2 x10^3/uL (0.0-0.7) Basophils # (Auto) 0.1 x10^3/uL (0.0-0.2) Sodium Level 137 mmol/L (136-145) Potassium Level 3.8 mmol/L (3.5-5.1) Chloride Level 98 mmol/L (98-107) Carbon Dioxide Level 36 mmol/L (21-32) Anion Gap 3 (6-14) Blood Urea Nitrogen 10 mg/dL (7-20) Creatinine 0.7 mg/dL (0.6-1.0) Estimated GFR (Cockcroft-Gault) 98.2 Glucose Level 90 mg/dL (70-99) Calcium Level 9.2 mg/dL (8.5-10.1) Micro RUN DATE: 01/19/19 PAGE 1 RUN TIME: 1021 [facility] [address] [place] [address] Jorge Tierney M.D., Color Corrector PATIENT: BERNARDO DE LEON ACCT: [id number] LOC: [address] [place] [address] U: [id number] AGE/SX: 78/F ROOM: 674 RE01/12/[address]: ARINA GALLEGOS MD : 1940 BED: 1 DIS: STATUS: ADM IN TLOC: SPEC #: [id number] DAVID: 01/14/19 STATUS: COMP REQ #: [id number] RECD: 01/14/[address] [facility] [address]: MARY LANIER MD SOURCE: SPUTUM ENTR: 01/14/19-[address]: ASTER MATOS MD SPDESC: CATHERINE MOSCOSO MD, CHRISTOPHER S MD ORDERED: SPUTUM CULTURE COMMENTS: Specimen Comment: Test(s) Lower Respiratory Culture called t 01/18/2019 at 14 Specimen Comment: :15 EST --- Procedure Result GRAM STAIN WHITE BLOOD CELLS Final Few GRAM STAIN EPITHELIAL CELLS Final Few GRAM STAIN RESULT 1 Final Comment Many gram negative rods. GRAM STAIN RESULT 2 Final Comment Few gram positive rods. GRAM STAIN RESULT 3 Final Comment Few gram positive cocci GRAM STAIN EVALUATION Final Comment This specimen is of good quality and is acceptable for routine bacterial culture. Performed at: DA - [facility] [place] [address] [facility] [address], [place], [place] [id number] Director Dance: YANG Lawrence MD, Phone: [phone] SPUTUM CULTURE-LC Final Final report CONTINUED ON NEXT PAGE RUN DATE: 01/19/19 PAGE 2 RUN TIME: 10[facility] [address] [place] [address] Jorge Tierney M.D., Color Corrector SPEC: [id number] PATIENT: BERNARDO DE LEON [id number] (Continued) - Procedure Result SPUTUM CULT RES 1 Final Comment Achromobacter xylosoxidans ssp. xylosoxidans 3+ Multi-Drug Resistant Organism * This is a corrected result. * A prior result that was reported as final has been changed. 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 * This is a corrected result. * A prior result that was reported as final has been changed. SPUTUM CULT RES 3 Final Comment Routine respiratory jewell 1+ * This is a corrected result. * A prior result that was reported as final has been changed. ANTIMICROBIAL SUSCEPTIBILITY Final Comment S = Susceptible; I = Intermediate; R = Resistant P = Positive; N = Negative MICS are expressed in micrograms per mL Antibiotic RSLT#1 RSLT#2 RSLT#3 RSLT#4 Amikacin R>=64 S<=2 Cefepime R>=64 R =32 Cefotaxime R>=64 Ceftazidime S =4 R>=64 Ceftriaxone R>=64 Ciprofloxacin R>=4 I =2 Gentamicin R>=16 S<=1 CONTINUED ON NEXT PAGE RUN DATE: 01/19/19 PAGE 3 RUN TIME: [facility] [address] [place] [address] Jorge Tierney M.D., Color Corrector SPEC: [id number] PATIENT: BERNARDO DE LEON [id number] (Continued) Procedure Result ANTIMICROBIAL SUSCEPTIBILITY Final (continued) Imipenem S =4 R>=16 Levofloxacin I =4 Meropenem S<=0.25 I =8 Piperacillin R>=128 Tetracycline R>=16 Ticarcillin S<=8 R>=128 Tobramycin R>=16 S<=1 Performed at: DA - [facility] [place] [address] [facility] [address], [place], [place] [id number] Director Dance: YANG Lawrence MD, Phone: [phone] * This is a corrected result. * A prior result that was reported as final has been changed. Objective: Assessment: GPC bacteremia 1 of 3 bottles, from 01/12,staph hominis likely contaminant, Fever better Leukocytosis - trending down Hypoxia Pneumonia, sputum MDR PSAE,Achromobacter h/o MDR PSA Plan: Plan of Care Cont merrem Off Zerbaxa 01/18 F/U susceptibilities Zerbaxa and Vabomere added to testing, d/w micro Probiotics D/W ELIE VAZQUEZ MD January 19, 2019 11:58
--- NOTE | 2019-01-19 12:48 | PDOC ---
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 status post recent bronch 01/01/19 Acute on chronic hypercapnic respiratory failure Chronic dysphagia, chronically PEG on tube feeds Hx of lung cancer and laryngeal cancer - s/p trach, stable HTN History of Present Illness History of Present Illness Same Deep suctioning hurts her causes her discomfort but that's what she needs As per ID note: Cont merrem Off Zerbaxa 01/18 F/U susceptibilities Zerbaxa and Vabomere added to testing, d/w micro Probiotics Plan: we'll DC with home health once on by mouth antibiotics Continue same for now, not ready to dc as cultures not finalized Vitals Vitals Vital Signs Date Time Temp Pulse Resp B/P (MAP) Pulse Ox O2 Delivery O2 Flow Rate FiO2 01/19/19 12:30 95 Tracheal Collar 10.0 01/19/19 11:00 98.0 90 20 107/63 (78) 98.0 Physical Exam Physical Exam GENERAL: Propped up in bed, alert, NAD HENT: Oral cavity clear NECK: Trach shield LUNGS: congested, tachypneic HEART: S1, S2 ABDOMEN: Soft, NT, PEG EXTREMITIES: No edema or cyanosis. SKIN: No rash NEUROLOGIC: Alert, responding appropriately Port clean General: Alert, Oriented X3, No acute distress Heart: Regular rate Lungs: Crackles Abdomen: Normal bowel sounds, Soft, No tenderness, No hepatosplenomegaly, No masses, Other (PEG site clean) Extremities: No clubbing, No cyanosis, No edema, Normal pulses, No tenderness/swelling Skin: No rashes, No breakdown, No significant lesion Labs LABS Laboratory Tests Test 01/19/19 06:00 White Blood Count 10.1 x10^3/uL (4.0-11.0) Red Blood Count 3.64 x10^6/uL (3.50-5.40) Hemoglobin 7.7 g/dL (12.0-15.5) Hematocrit 26.2 % (36.0-47.0) Mean Corpuscular Volume 72 fL (79-100) Mean Corpuscular Hemoglobin 21 pg (25-35) Mean Corpuscular Hemoglobin Concent 30 g/dL (31-37) Red Cell Distribution Width 19.0 % (11.5-14.5) Platelet Count 411 x10^3/uL (140-400) Neutrophils (%) (Auto) 77 % (31-73) Lymphocytes (%) (Auto) 16 % (24-48) Monocytes (%) (Auto) 5 % (0-9) Eosinophils (%) (Auto) 2 % (0-3) Basophils (%) (Auto) 1 % (0-3) Neutrophils # (Auto) 7.7 x10^3uL (1.8-7.7) Lymphocytes # (Auto) 1.6 x10^3/uL (1.0-4.8) Monocytes # (Auto) 0.5 x10^3/uL (0.0-1.1) Eosinophils # (Auto) 0.2 x10^3/uL (0.0-0.7) Basophils # (Auto) 0.1 x10^3/uL (0.0-0.2) Sodium Level 137 mmol/L (136-145) Potassium Level 3.8 mmol/L (3.5-5.1) Chloride Level 98 mmol/L (98-107) Carbon Dioxide Level 36 mmol/L (21-32) Anion Gap 3 (6-14) Blood Urea Nitrogen 10 mg/dL (7-20) Creatinine 0.7 mg/dL (0.6-1.0) Estimated GFR (Cockcroft-Gault) 98.2 Glucose Level 90 mg/dL (70-99) Calcium Level 9.2 mg/dL (8.5-10.1) Review of Systems Review of Systems A 14 point ROS was completed with the following noted as positive: Other systems reviewed and negative. \CONSTITUTIONAL: No fever or chills EYES: No recent changes SKIN: No rash or itching CARDIOVASCULAR: No chest pain, syncope, palpitations, or edema RESPIRATORY: No SOB or cough GASTROINTESTINAL: No nausea, vomiting or abdominal pain NEUROLOGICAL: No headaches or weakness ENDOCRINE: No cold or heat intolerance GENITOURINARY: No urgency or frequency of urination MUSCULOSKELETAL: No back pain or joint pain LYMPHATICS: No enlarged lymph nodes PSYCHIATRIC: No anxiety or depression Assessment and Plan Assessmemt and Plan Problems Medical Problems: (1) Dyspnea Status: Acute Comment Review of Relevant I have reviewed the following items miko (where applicable) has been applied. Labs Laboratory Tests Test 01/18/19 03:40 01/19/19 06:00 White Blood Count 10.4 x10^3/uL (4.0-11.0) 10.1 x10^3/uL (4.0-11.0) Red Blood Count 3.73 x10^6/uL (3.50-5.40) 3.64 x10^6/uL (3.50-5.40) Hemoglobin 7.7 g/dL (12.0-15.5) 7.7 g/dL (12.0-15.5) Hematocrit 26.3 % (36.0-47.0) 26.2 % (36.0-47.0) Mean Corpuscular Volume 71 fL (79-100) 72 fL (79-100) Mean Corpuscular Hemoglobin 21 pg (25-35) 21 pg (25-35) Mean Corpuscular Hemoglobin Concent 29 g/dL (31-37) 30 g/dL (31-37) Red Cell Distribution Width 19.3 % (11.5-14.5) 19.0 % (11.5-14.5) Platelet Count 437 x10^3/uL (140-400) 411 x10^3/uL (140-400) Neutrophils (%) (Auto) 74 % (31-73) 77 % (31-73) Lymphocytes (%) (Auto) 18 % (24-48) 16 % (24-48) Monocytes (%) (Auto) 5 % (0-9) 5 % (0-9) Eosinophils (%) (Auto) 2 % (0-3) 2 % (0-3) Basophils (%) (Auto) 1 % (0-3) 1 % (0-3) Neutrophils # (Auto) 7.7 x10^3uL (1.8-7.7) 7.7 x10^3uL (1.8-7.7) Lymphocytes # (Auto) 1.9 x10^3/uL (1.0-4.8) 1.6 x10^3/uL (1.0-4.8) Monocytes # (Auto) 0.5 x10^3/uL (0.0-1.1) 0.5 x10^3/uL (0.0-1.1) Eosinophils # (Auto) 0.2 x10^3/uL (0.0-0.7) 0.2 x10^3/uL (0.0-0.7) Basophils # (Auto) 0.1 x10^3/uL (0.0-0.2) 0.1 x10^3/uL (0.0-0.2) Sodium Level 138 mmol/L (136-145) 137 mmol/L (136-145) Potassium Level 4.0 mmol/L (3.5-5.1) 3.8 mmol/L (3.5-5.1) Chloride Level 102 mmol/L (98-107) 98 mmol/L (98-107) Carbon Dioxide Level 35 mmol/L (21-32) 36 mmol/L (21-32) Anion Gap 1 (6-14) 3 (6-14) Blood Urea Nitrogen 11 mg/dL (7-20) 10 mg/dL (7-20) Creatinine 0.6 mg/dL (0.6-1.0) 0.7 mg/dL (0.6-1.0) Estimated GFR (Cockcroft-Gault) 117.3 98.2 Glucose Level 88 mg/dL (70-99) 90 mg/dL (70-99) Calcium Level 9.1 mg/dL (8.5-10.1) 9.2 mg/dL (8.5-10.1) Laboratory Tests Test 01/19/19 06:00 White Blood Count 10.1 x10^3/uL (4.0-11.0) Red Blood Count 3.64 x10^6/uL (3.50-5.40) Hemoglobin 7.7 g/dL (12.0-15.5) Hematocrit 26.2 % (36.0-47.0) Mean Corpuscular Volume 72 fL (79-100) Mean Corpuscular Hemoglobin 21 pg (25-35) Mean Corpuscular Hemoglobin Concent 30 g/dL (31-37) Red Cell Distribution Width 19.0 % (11.5-14.5) Platelet Count 411 x10^3/uL (140-400) Neutrophils (%) (Auto) 77 % (31-73) Lymphocytes (%) (Auto) 16 % (24-48) Monocytes (%) (Auto) 5 % (0-9) Eosinophils (%) (Auto) 2 % (0-3) Basophils (%) (Auto) 1 % (0-3) Neutrophils # (Auto) 7.7 x10^3uL (1.8-7.7) Lymphocytes # (Auto) 1.6 x10^3/uL (1.0-4.8) Monocytes # (Auto) 0.5 x10^3/uL (0.0-1.1) Eosinophils # (Auto) 0.2 x10^3/uL (0.0-0.7) Basophils # (Auto) 0.1 x10^3/uL (0.0-0.2) Sodium Level 137 mmol/L (136-145) Potassium Level 3.8 mmol/L (3.5-5.1) Chloride Level 98 mmol/L (98-107) Carbon Dioxide Level 36 mmol/L (21-32) Anion Gap 3 (6-14) Blood Urea Nitrogen 10 mg/dL (7-20) Creatinine 0.7 mg/dL (0.6-1.0) Estimated GFR (Cockcroft-Gault) 98.2 Glucose Level 90 mg/dL (70-99) Calcium Level 9.2 mg/dL (8.5-10.1) Microbiology 01/12/19 Blood Culture - Final, Complete NO GROWTH AFTER 5 DAYS 01/14/19 - Final, Complete 01/14/19 - Final, Complete 01/14/19 - Final, Complete 01/14/19 - Final, Complete 01/14/19 - Final, Complete 01/14/19 Gram Stain Evaluation - Final, Complete 01/14/19 Sputum Culture - Final, Complete 01/14/19 Sputum Result 1 - Final, Complete 01/14/19 Sputum Result 2 - Final, Complete 01/14/19 - Final, Complete 01/14/19 Antimicrobic Susceptibility - Final, Complete Medications Current Medications Albuterol/ Ipratropium (Duoneb) 3 ml 1X ONCE NEB Last administered on 01/12/19at 14:56; Start 01/12/19 at 14:30; Stop 01/12/19 at 14:35; Status DC Piperacillin Sod/ Tazobactam Sod (Zosyn Per Pharmacy) 1 each PRN DAILY PRN MC SEE COMMENTS; Start 01/12/19 at 16:15; Status Cancel Vancomycin HCl (Vanco Per Pharmacy) 1 each PRN DAILY PRN MC SEE COMMENTS Last administered on 01/16/19at 10:42; Start 01/12/19 at 16:15; Stop 01/17/19 at 13:44; Status DC Vancomycin HCl 1.25 gm/Sodium Chloride 250 ml @ 166.667 mls/hr 1X ONCE IV Last administered on 01/12/19 18:18; Start 01/12/19 at 16:15; Stop 01/12/19 at 17:44; Status DC Piperacillin Sod/ Tazobactam Sod 3.375 gm/Sodium Chloride 50 ml @ 100 mls/hr 1X ONCE IV Last administered on 01/12/19at 17:28; Start 01/12/19 at 16:15; Stop 01/12/19 at 16:44; Status DC Oxycodone/ Acetaminophen (Percocet 5/325) 1 tab 1X ONCE PO Last administered on 01/12/19 18:18; Start 01/12/19 at 18:00; Stop 01/12/19 at 18:08; Status DC Fentanyl Citrate (Fentanyl 2ml Vial) 25 mcg PRN Q2HR PRN IV PAIN Last administered on 01/18/19at 07:34; Start 01/12/19 at 18:30 Piperacillin Sod/ Tazobactam Sod 3.375 gm/Sodium Chloride 50 ml @ 100 mls/hr Q6HRS IV Last administered on 01/13/19 06:13; Start 01/13/19 at 00:00; Stop 01/13/19 at 11:26; Status DC Vancomycin HCl 750 mg/Sodium Chloride 250 ml @ 250 mls/hr Q24H IV Last administered on 01/13/19 17:11; Start 01/13/19 at 18:00; Stop 01/14/19 at 18:54; Status DC Vancomycin HCl (Vancomycin Trough Level) 1 each 1X ONCE MC Last administered on 01/14/19 17:30; Start 01/14/19 at 17:30; Stop 01/14/19 at 17:31; Status DC Amlodipine Besylate (Norvasc) 5 mg DAILY PO Last administered on 01/15/19 08:36; Start 01/13/19 at 09:00; Stop 01/15/19 at 20:49; Status DC Fentanyl (Duragesic 50mcg/ Hr Patch) 1 patch Q3DAYS TD ; Start 01/15/19 at 09:00; Status UNV Gabapentin (Neurontin) 300 mg BID PO Last administered on 01/19/19 08:01; Start 01/12/19 at 21:00 Lactobacillus Rhamnosus (Culturelle) 1 cap BID PO Last administered on 01/19/19 08:01; Start 01/12/19 at 21:00 Metoclopramide HCl (Reglan) 5 mg QIDACHS PO Last administered on 01/19/19 11:36; Start 01/12/19 at 21:00 Ondansetron HCl (Zofran Odt) 4 mg PRN Q6HRS PRN PEG NAUSEA/VOMITING Last administered on 01/16/19 19:14; Start 01/12/19 at 19:45 Oxycodone/ Acetaminophen (Percocet 7.5/ 325) 1 tab PRN QID PRN PO MODERATE TO SEVERE PAIN Last administered on 01/19/19 07:56; Start 01/12/19 at 19:45 Non-Formulary Medication (Albuterol Sulfate (Albuterol Sulfate Neb Soln)) 1 vial QID NEB ; Start 01/12/19 at 21:00; Status UNV Cyproheptadine HCl (Periactin) 4 mg TID PEG Last administered on 01/19/19 08:00; Start 01/12/19 at 21:00 Donepezil HCl (Aricept) 5 mg BID PEG Last administered on 01/19/19 08:01; Start 01/13/19 at 09:00 Pantoprazole Sodium (PROTONIX VIAL for IV PUSH) 40 mg DAILYAC IVP ; Start 01/13/19 at 07:30; Status UNV Enoxaparin Sodium (Lovenox 40mg Syringe) 40 mg Q24H SQ Last administered on 01/18/19 21:18; Start 01/12/19 at 20:00 Albuterol Sulfate (Ventolin Neb Soln) 2.5 mg RTQID NEB Last administered on 01/19/19 12:30; Start 01/12/19 at 20:00 Lansoprazole (Prevacid) 30 mg DAILYAC PEG Last administered on 01/19/19 07:55; Start 01/13/19 at 07:30 Fentanyl (Duragesic 50mcg/ Hr Patch) 1 patch Q3DAYS TD Last administered on 01/18/19 08:25; Start 01/12/19 at 21:00 Ceftolozane/ Tazobactam 1500 mg/Sodium Chloride 100 ml @ 100 mls/hr Q8HRS IV Last administered on 01/19/19 05:56; Start 01/13/19 at 14:00 Polyethylene Glycol (miraLAX PACKET) 17 gm PRN BID PRN GT CONSTIPATION Last administered on 01/16/19 08:29; Start 01/13/19 at 12:45 Ondansetron HCl (Zofran) 4 mg PRN Q8HRS PRN IV NAUSEA/VOMITING Last administered on 01/18/19 09:11; Start 01/13/19 at 18:45 Vancomycin HCl 1 gm/Sodium Chloride 250 ml @ 250 mls/hr 1X ONCE IV Last administered on 01/14/19 20:01; Start 01/14/19 at 19:30; Stop 01/14/19 at 20:29; Status DC Vancomycin HCl 750 mg/Sodium Chloride 250 ml @ 250 mls/hr Q12H IV Last administered on 01/15/19 20:53; Start 01/15/19 at 08:00; Stop 01/16/19 at 10:34; Status DC Vancomycin HCl (Vancomycin Trough Level) 1 each 1X ONCE MC Last administered on 01/16/19 07:30; Start 01/16/19 at 07:30; Stop 01/16/19 at 07:31; Status DC Amlodipine Besylate (Norvasc) 10 mg DAILY PO Last administered on 01/19/19 08:03; Start 01/16/19 at 09:00 Amlodipine Besylate (Norvasc) 5 mg 1X ONCE PO Last administered on 01/15/19 21:01; Start 01/15/19 at 21:00; Stop 01/15/19 at 21:01; Status DC Vancomycin HCl 1 gm/Sodium Chloride 250 ml @ 250 mls/hr Q12H IV Last administered on 01/17/19 11:54; Start 01/16/19 at 11:00; Stop 01/17/19 at 13:42; Status DC Alteplase, Recombinant (Cathflo For Central Catheter Clearance) 1 mg 1X ONCE INT CAT Last administered on 5/5/19at 16:01; Start 01/16/19 at 13:15; Stop 01/16/19 at 13:16; Status DC Nitroglycerin (Nitrostat) 0.4 mg STK-MED ONCE SL ; Start 01/17/19 at 19:00; Stop 01/17/19 at 19:01; Status DC Iron Sucrose 500 mg/Sodium Chloride 275 ml @ 78.571 mls/ hr 1X ONCE IV Last administered on 01/18/19at 11:40; Start 01/18/19 at 09:00; Stop 01/18/19 at 12:29; Status DC Active Scripts Active Percocet 7.5-325 Mg Tablet (Oxycodone/Acetaminophen) 1 Each Tablet 1 Tab PO QID PRN MDD 1 FENTANYL 50mcg/hr (Fentanyl) 1 Each Patch.td72 1 Patch TP Q3DAYS MDD 1 Culturelle (Lactobacillus Rhamnosus Gg) 1 Each Cap.sprink 1 Cap PO BID 30 Days Reported Albuterol Sulfate Neb Soln (Albuterol Sulfate) 0.63 Mg/3 Ml Vial.neb 1 Vial NEB QID Gabapentin (Gabapentin) 300 Mg Capsule 300 Mg PO BID PRN Amlodipine Besylate 5 Mg Tablet 5 Mg PO DAILY Pantoprazole Sodium 40 Mg Tablet.dr 40 Mg PEG BID Donepezil Hcl 5 Mg Tablet 5 Mg PEG BID Reglan (Metoclopramide Hcl) 10 Mg Tablet 5 Mg PO QIDACHS Cyproheptadine Hcl 2 Mg/5 Ml Syrup 10 Ml PEG TID Ondansetron Odt (Ondansetron) 4 Mg Tab.rapdis 4 Mg PEG QIDPRN PRN Vitals/I & O Vital Sign - Last 24 Hours 01/18/19 01/18/19 01/18/19 01/18/19 15:00 16:09 17:15 19:33 Temp 98.5 98.5 Pulse 97 Resp 16 14 B/P (MAP) 147/79 (101) Pulse Ox 98 96 96 95 O2 Delivery Tracheal Collar Tracheal Collar Tracheal Collar O2 Flow Rate 10.0 10.0 10.0 01/18/19 01/18/19 01/18/19 01/18/19 19:59 20:00 22:52 23:55 Temp 98.1 97.6 98.1 97.6 Pulse 98 96 Resp 20 18 16 B/P (MAP) 132/75 (94) 107/61 (76) Pulse Ox 97 97 93 O2 Delivery Tracheal Collar Trach Collar Tracheal Collar O2 Flow Rate 10.0 10.0 01/19/19 01/19/19 01/19/19 01/19/19 03:27 07:00 07:56 08:00 Temp 98.2 98.4 98.2 98.4 Pulse 104 100 Resp 16 14 18 B/P (MAP) 132/71 (91) 160/84 (109) Pulse Ox 92 90 92 O2 Delivery Tracheal Collar Tracheal Collar Tracheal Collar Trach Collar O2 Flow Rate 10.0 10.0 01/19/19 01/19/19 01/19/19 01/19/19 08:03 08:21 09:00 11:00 Temp 98.0 98.0 Pulse 91 90 Resp 19 20 B/P (MAP) 146/83 107/63 (78) Pulse Ox 92 92 95 O2 Delivery Tracheal Collar Tracheal Collar Tracheal Collar O2 Flow Rate 10.0 10.0 01/19/19 12:30 Pulse Ox 95 O2 Delivery Tracheal Collar O2 Flow Rate 10.0 Intake and Output 01/18/19 01/18/19 01/19/19 15:00 23:00 07:00 Intake Total 457 ml 855 ml 0 ml Output Total 800 ml Balance 457 ml 855 ml -800 ml Nutrition Consultation Dietary Evaluation: Comments: Continue with TF order Expected Outcomes/Goals: TF tolerance- met, goal ongoing Malnutrition Findings: Body Fat Depletion (Non Severe: Mild Depletion Weight Status: Underweight HEAVEN KRAUS MD January 19, 2019 12:48
[2019-01-19 15:00] VITALS: BP 113/54
--- NOTE | 2019-01-19 18:31 | NUR ---
Patient has been asking additional Jevity during feeding time. She tolerates feeding well, no nausea, vomiting noted.
[2019-01-19 19:48] VITALS: BP 120/65
[2019-01-19] MEDS: ENOXAPARIN 40 MG/0.4 ML SYRINGE. SQ SCH (21:39)
[2019-01-19 23:58] VITALS: BP 156/70
[2019-01-20 03:20] VITALS: BP 161/84
[2019-01-20] MEDS: oxyCODONE/APAP 7.5/325 1 TAB TABLET PO PRN ×3 (03:30→13:49)
[2019-01-20] MEDS: CEFTOLOZANE/TAZOBACTAM 1,500 MG in IV NORMAL SALINE 100ML 100 ML IV SCH (05:56)
[2019-01-20 06:22] LABS: CALCIUM 9.5 mg/dL (8.5-10.1); CREATININE 0.7 mg/dL (0.6-1.0); GFR 98.2
[2019-01-20 07:27] LABS: BASO # 0.1 x10^3/uL (0.0-0.2); BASO % 1 % (0-3); EOS # 0.2 x10^3/uL (0.0-0.7); EOS % 2 % (0-3); HEMATOCRIT 27.2 % (36.0-47.0); HEMOGLOBIN 7.7 g/dL (12.0-15.5); LYMPH # 2.3 x10^3/uL (1.0-4.8); LYMPH % 22 % (24-48); MEAN CORPUSCULAR HEMOGLOBIN 20 pg (25-35); MEAN CORPUSCULAR HGB CONC 29 g/dL (31-37); MEAN CORPUSCULAR VOLUME 71 fL (79-100); MONO # 0.6 x10^3/uL (0.0-1.1); MONO % 5 % (0-9); NEUT # 7.5 x10^3uL (1.8-7.7); NEUT % 71 % (31-73); PLATELET COUNT 426 x10^3/uL (140-400); RED BLOOD COUNT 3.81 x10^6/uL (3.50-5.40); RED CELL DISTRIBUTION WIDTH 20.1 % (11.5-14.5); WHITE BLOOD COUNT 10.6 x10^3/uL (4.0-11.0)
[2019-01-20] MEDS: ALBUTEROL SULFATE 2.5 MG/3 ML NEBU. NEB SCH ×3 (08:27→16:39)
--- NOTE | 2019-01-20 08:31 | NUR ---
[facility] following pt. Pt on IV abx and awaiting on cultures. Plan is home with [facility] once pt is ready to dc. Will continue to follow.
[2019-01-20] MEDS: METOCLOPRAMIDE 5 MG TABLET. PO SCH ×3 (08:40→17:59)
[2019-01-20] MEDS: CYPROHEPTADINE 4 MG TABLET. PEG SCH ×2 (08:40→13:53)
[2019-01-20] MEDS: LACTOBACILLUS RHAMNOSUS GG 1 CAPSULE. PO SCH (08:40)
[2019-01-20] MEDS: GABAPENTIN 300 MG CAPSULE. PO SCH (08:41)
[2019-01-20] MEDS: DONEPEZIL HCL 5 MG TABLET. PEG SCH (08:41)
[2019-01-20] MEDS: amLODIPine BESYLATE 10 MG TABLET PO SCH (08:45)
[2019-01-20] MEDS: LANSOPRAZOLE 30 MG TAB.RAP.DR PEG SCH (08:45)
--- NOTE | 2019-01-20 09:02 | PDOC ---
PULMONARY PROGRESS NOTES Subjective NOT MORE SOA Vitals Vital Signs Date Time Temp Pulse Resp B/P (MAP) Pulse Ox O2 Delivery O2 Flow Rate FiO2 01/20/19 08:45 101 161/84 01/20/19 08:41 60 10.0 01/20/19 08:33 Tracheal Collar 01/20/19 04:30 18 01/20/19 03:20 98.2 98.2 General: Alert, No acute distress Lungs: Crackles Cardiovascular: S1, S2 Abdomen: Soft, Non-tender Extremities: No Edema Labs Laboratory Tests Test 01/19/19 06:00 01/19/19 13:52 01/20/19 06:00 White Blood Count 10.1 x10^3/uL (4.0-11.0) 10.6 x10^3/uL (4.0-11.0) Red Blood Count 3.64 x10^6/uL (3.50-5.40) 3.81 x10^6/uL (3.50-5.40) Hemoglobin 7.7 g/dL (12.0-15.5) 7.7 g/dL (12.0-15.5) Hematocrit 26.2 % (36.0-47.0) 27.2 % (36.0-47.0) Mean Corpuscular Volume 72 fL (79-100) 71 fL (79-100) Mean Corpuscular Hemoglobin 21 pg (25-35) 20 pg (25-35) Mean Corpuscular Hemoglobin Concent 30 g/dL (31-37) 29 g/dL (31-37) Red Cell Distribution Width 19.0 % (11.5-14.5) 20.1 % (11.5-14.5) Platelet Count 411 x10^3/uL (140-400) 426 x10^3/uL (140-400) Neutrophils (%) (Auto) 77 % (31-73) 71 % (31-73) Lymphocytes (%) (Auto) 16 % (24-48) 22 % (24-48) Monocytes (%) (Auto) 5 % (0-9) 5 % (0-9) Eosinophils (%) (Auto) 2 % (0-3) 2 % (0-3) Basophils (%) (Auto) 1 % (0-3) 1 % (0-3) Neutrophils # (Auto) 7.7 x10^3uL (1.8-7.7) 7.5 x10^3uL (1.8-7.7) Lymphocytes # (Auto) 1.6 x10^3/uL (1.0-4.8) 2.3 x10^3/uL (1.0-4.8) Monocytes # (Auto) 0.5 x10^3/uL (0.0-1.1) 0.6 x10^3/uL (0.0-1.1) Eosinophils # (Auto) 0.2 x10^3/uL (0.0-0.7) 0.2 x10^3/uL (0.0-0.7) Basophils # (Auto) 0.1 x10^3/uL (0.0-0.2) 0.1 x10^3/uL (0.0-0.2) Sodium Level 137 mmol/L (136-145) 137 mmol/L (136-145) Potassium Level 3.8 mmol/L (3.5-5.1) 4.0 mmol/L (3.5-5.1) Chloride Level 98 mmol/L (98-107) 100 mmol/L (98-107) Carbon Dioxide Level 36 mmol/L (21-32) 34 mmol/L (21-32) Anion Gap 3 (6-14) 3 (6-14) Blood Urea Nitrogen 10 mg/dL (7-20) 10 mg/dL (7-20) Creatinine 0.7 mg/dL (0.6-1.0) 0.7 mg/dL (0.6-1.0) Estimated GFR (Cockcroft-Gault) 98.2 98.2 Glucose Level 90 mg/dL (70-99) 86 mg/dL (70-99) Calcium Level 9.2 mg/dL (8.5-10.1) 9.5 mg/dL (8.5-10.1) Erythrocyte Sedimentation Rate 64 (0-25) Laboratory Tests Test 01/19/19 13:52 01/20/19 06:00 Erythrocyte Sedimentation Rate 64 (0-25) White Blood Count 10.6 x10^3/uL (4.0-11.0) Red Blood Count 3.81 x10^6/uL (3.50-5.40) Hemoglobin 7.7 g/dL (12.0-15.5) Hematocrit 27.2 % (36.0-47.0) Mean Corpuscular Volume 71 fL (79-100) Mean Corpuscular Hemoglobin 20 pg (25-35) Mean Corpuscular Hemoglobin Concent 29 g/dL (31-37) Red Cell Distribution Width 20.1 % (11.5-14.5) Platelet Count 426 x10^3/uL (140-400) Neutrophils (%) (Auto) 71 % (31-73) Lymphocytes (%) (Auto) 22 % (24-48) Monocytes (%) (Auto) 5 % (0-9) Eosinophils (%) (Auto) 2 % (0-3) Basophils (%) (Auto) 1 % (0-3) Neutrophils # (Auto) 7.5 x10^3uL (1.8-7.7) Lymphocytes # (Auto) 2.3 x10^3/uL (1.0-4.8) Monocytes # (Auto) 0.6 x10^3/uL (0.0-1.1) Eosinophils # (Auto) 0.2 x10^3/uL (0.0-0.7) Basophils # (Auto) 0.1 x10^3/uL (0.0-0.2) Sodium Level 137 mmol/L (136-145) Potassium Level 4.0 mmol/L (3.5-5.1) Chloride Level 100 mmol/L (98-107) Carbon Dioxide Level 34 mmol/L (21-32) Anion Gap 3 (6-14) Blood Urea Nitrogen 10 mg/dL (7-20) Creatinine 0.7 mg/dL (0.6-1.0) Estimated GFR (Cockcroft-Gault) 98.2 Glucose Level 86 mg/dL (70-99) Calcium Level 9.5 mg/dL (8.5-10.1) Medications Active Scripts Medications Dose Route/Sig Max Daily Dose Days Date Category Percocet 7.5-325 Mg Tablet (Oxycodone/Acetaminophen) 1 Each Tablet 1 Tab PO QID PRN MDD 1 12/09/18 Rx FENTANYL 50mcg/hr (Fentanyl) 1 Each Patch.td72 1 Patch TP Q3DAYS MDD 1 12/09/18 Rx Albuterol Sulfate Neb Soln (Albuterol Sulfate) 0.63 Mg/3 Ml Vial.neb 1 Vial NEB QID 12/02/18 Reported Gabapentin (Gabapentin) 300 Mg Capsule 300 Mg PO BID PRN 10/19/18 Reported Amlodipine Besylate 5 Mg Tablet 5 Mg PO DAILY 10/19/18 Reported Culturelle (Lactobacillus Rhamnosus Gg) 1 Each Cap.sprink 1 Cap PO BID 30 07/07/17 Rx Pantoprazole Sodium 40 Mg Tablet.dr 40 Mg PEG BID 03/11/17 Reported Donepezil Hcl 5 Mg Tablet 5 Mg PEG BID 03/11/17 Reported Reglan (Metoclopramide Hcl) 10 Mg Tablet 5 Mg PO QIDACHS 03/11/17 Reported Cyproheptadine Hcl 2 Mg/5 Ml Syrup 10 Ml PEG TID 03/11/17 Reported Ondansetron Odt (Ondansetron) 4 Mg Tab.rapdis 4 Mg PEG QIDPRN PRN 06/19/14 Reported Comments CXR 01/16, 01/17 Resolved RICHARD consolidation c/w 01/12 Impression . 1. Acute on chronic hypoxic respiratory failure secondary to new left upper lobe pneumonia. likely aspiration, now resolved. 2. Abnormal chest x-ray consistent with left upper lobe consolidation. resolved 3. 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 4. Dysphagia. 5. Laryngeal cancer diagnosed on 07/23/2015 status post tracheostomy and status post radiation therapy along with cetuximab with no evidence of recurrent disease. 6. 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 7. 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 ID NOTE Pneumonia, sputum culture grew N resp jewell and PSA susceptibilities pending h/o MDR PSA --------- Procedure Result SPUTUM CULTURE-LC Final (continued) A prior result that was reported as final has been changed. SPUTUM CULT RES 1 Final Comment Achromobacter xylosoxidans ssp. xylosoxidans 3+ Multi-Drug Resistant Organism * This is a corrected result. * A prior result that was reported as final has been changed. 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 * This is a corrected result. * A prior result that was reported as final has been changed. SPUTUM CULT RES 3 Final Comment Routine respiratory jewell 1+ * This is a corrected result. * A prior result that was reported as final has been changed. ANTIMICROBIAL SUSCEPTIBILITY Final Comment S = Susceptible; I = Intermediate; R = Resistant P = Positive; N = Negative MICS are expressed in micrograms per mL Antibiotic RSLT#1 RSLT#2 RSLT#3 RSLT#4 Amikacin R>=64 S<=2 Cefepime R>=64 R =32 Cefotaxime R>=64 CONTINUED ON NEXT PAGE RUN DATE: 01/19/19 PAGE 3 RUN TIME: [id number] [facility] [address] [place] [address] Jorge Tierney M.D., Entry Level Programmer ------- SPEC: [id number] PATIENT: BERNARDO DE LEON [id number] (Continued) Procedure Result ------ ANTIMICROBIAL SUSCEPTIBILITY Final (continued) Ceftazidime S =4 R>=64 Ceftriaxone R>=64 Ciprofloxacin R>=4 I =2 Gentamicin R>=16 S<=1 Imipenem S =4 R>=16 Levofloxacin I =4 Meropenem S<=0.25 I =8 Piperacillin R>=128 Tetracycline R>=16 Ticarcillin S<=8 R>=128 Tobramycin R>=16 S<=1 Performed at: DA - [facility] [address] [facility], [place], [place] [id number] Employee Representative: YANG Lawrence MD, Phone: [phone] * This is a corrected result. * A prior result that was reported as final has been changed. Plan . D/C HOME PER ANURAG ELLER MD January 20, 2019 09:02
[2019-01-20] MEDS: ONDANSETRON PF 4 MG/2 ML VIAL. IV PRN (09:03)
--- NOTE | 2019-01-20 09:25 | PDOC ---
PROGRESS NOTES Subjective Subjective HPI - f/u of Anemia ROS - no fever Objective Objective Vital Signs Date Time Temp Pulse Resp B/P (MAP) Pulse Ox O2 Delivery O2 Flow Rate FiO2 01/20/19 08:45 101 161/84 01/20/19 08:41 60 10.0 01/20/19 08:33 Tracheal Collar 01/20/19 04:30 18 01/20/19 03:20 98.2 98.2 Intake and Output 01/20/19 07:00 Intake Total 3000 ml Balance 3000 ml Intake Oral 0 ml Tube Feeding 2800 ml Other 200 ml # Voids 8 # Bowel Movements 2 Physical Exam General: Alert, No acute distress Neck: No JVD Assessment Assessment Problems Medical Problems: (1) Dyspnea Status: Acute IMPRESSION AND PLAN: 1. Laryngeal cancer diagnosed on 07/23/2015 status post tracheostomy and status post radiation therapy along with cetuximab with no evidence of recurrent disease. 2. 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 3. 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 4. Anemia, which I suspect is due to chronic disease. She has had multiple bouts of pneumonia requiring hospitalization and antibiotics. Iron studies are consistent with anemia due to chronic disease. Hb now worse at 7.7. s/p venofer 500 mg IV 01/18/19 in view of worsening anemia and low iron saturation. Monitor cbc 5. Pneumonia. Appreciate Infectious Disease and Pulmonary management. Comment Review of Relevant I have reviewed the following items miko (where applicable) has been applied. Labs Laboratory Tests Test 01/19/19 06:00 01/19/19 13:52 01/20/19 06:00 White Blood Count 10.1 x10^3/uL (4.0-11.0) 10.6 x10^3/uL (4.0-11.0) Red Blood Count 3.64 x10^6/uL (3.50-5.40) 3.81 x10^6/uL (3.50-5.40) Hemoglobin 7.7 g/dL (12.0-15.5) 7.7 g/dL (12.0-15.5) Hematocrit 26.2 % (36.0-47.0) 27.2 % (36.0-47.0) Mean Corpuscular Volume 72 fL (79-100) 71 fL (79-100) Mean Corpuscular Hemoglobin 21 pg (25-35) 20 pg (25-35) Mean Corpuscular Hemoglobin Concent 30 g/dL (31-37) 29 g/dL (31-37) Red Cell Distribution Width 19.0 % (11.5-14.5) 20.1 % (11.5-14.5) Platelet Count 411 x10^3/uL (140-400) 426 x10^3/uL (140-400) Neutrophils (%) (Auto) 77 % (31-73) 71 % (31-73) Lymphocytes (%) (Auto) 16 % (24-48) 22 % (24-48) Monocytes (%) (Auto) 5 % (0-9) 5 % (0-9) Eosinophils (%) (Auto) 2 % (0-3) 2 % (0-3) Basophils (%) (Auto) 1 % (0-3) 1 % (0-3) Neutrophils # (Auto) 7.7 x10^3uL (1.8-7.7) 7.5 x10^3uL (1.8-7.7) Lymphocytes # (Auto) 1.6 x10^3/uL (1.0-4.8) 2.3 x10^3/uL (1.0-4.8) Monocytes # (Auto) 0.5 x10^3/uL (0.0-1.1) 0.6 x10^3/uL (0.0-1.1) Eosinophils # (Auto) 0.2 x10^3/uL (0.0-0.7) 0.2 x10^3/uL (0.0-0.7) Basophils # (Auto) 0.1 x10^3/uL (0.0-0.2) 0.1 x10^3/uL (0.0-0.2) Sodium Level 137 mmol/L (136-145) 137 mmol/L (136-145) Potassium Level 3.8 mmol/L (3.5-5.1) 4.0 mmol/L (3.5-5.1) Chloride Level 98 mmol/L (98-107) 100 mmol/L (98-107) Carbon Dioxide Level 36 mmol/L (21-32) 34 mmol/L (21-32) Anion Gap 3 (6-14) 3 (6-14) Blood Urea Nitrogen 10 mg/dL (7-20) 10 mg/dL (7-20) Creatinine 0.7 mg/dL (0.6-1.0) 0.7 mg/dL (0.6-1.0) Estimated GFR (Cockcroft-Gault) 98.2 98.2 Glucose Level 90 mg/dL (70-99) 86 mg/dL (70-99) Calcium Level 9.2 mg/dL (8.5-10.1) 9.5 mg/dL (8.5-10.1) Erythrocyte Sedimentation Rate 64 (0-25) Laboratory Tests Test 01/19/19 13:52 01/20/19 06:00 Erythrocyte Sedimentation Rate 64 (0-25) White Blood Count 10.6 x10^3/uL (4.0-11.0) Red Blood Count 3.81 x10^6/uL (3.50-5.40) Hemoglobin 7.7 g/dL (12.0-15.5) Hematocrit 27.2 % (36.0-47.0) Mean Corpuscular Volume 71 fL (79-100) Mean Corpuscular Hemoglobin 20 pg (25-35) Mean Corpuscular Hemoglobin Concent 29 g/dL (31-37) Red Cell Distribution Width 20.1 % (11.5-14.5) Platelet Count 426 x10^3/uL (140-400) Neutrophils (%) (Auto) 71 % (31-73) Lymphocytes (%) (Auto) 22 % (24-48) Monocytes (%) (Auto) 5 % (0-9) Eosinophils (%) (Auto) 2 % (0-3) Basophils (%) (Auto) 1 % (0-3) Neutrophils # (Auto) 7.5 x10^3uL (1.8-7.7) Lymphocytes # (Auto) 2.3 x10^3/uL (1.0-4.8) Monocytes # (Auto) 0.6 x10^3/uL (0.0-1.1) Eosinophils # (Auto) 0.2 x10^3/uL (0.0-0.7) Basophils # (Auto) 0.1 x10^3/uL (0.0-0.2) Sodium Level 137 mmol/L (136-145) Potassium Level 4.0 mmol/L (3.5-5.1) Chloride Level 100 mmol/L (98-107) Carbon Dioxide Level 34 mmol/L (21-32) Anion Gap 3 (6-14) Blood Urea Nitrogen 10 mg/dL (7-20) Creatinine 0.7 mg/dL (0.6-1.0) Estimated GFR (Cockcroft-Gault) 98.2 Glucose Level 86 mg/dL (70-99) Calcium Level 9.5 mg/dL (8.5-10.1) Microbiology 01/12/19 Blood Culture - Final, Complete NO GROWTH AFTER 5 DAYS 01/14/19 - Final, Complete 01/14/19 - Final, Complete 01/14/19 - Final, Complete 01/14/19 - Final, Complete 01/14/19 - Final, Complete 01/14/19 Gram Stain Evaluation - Final, Complete 01/14/19 Sputum Culture - Final, Complete 01/14/19 Sputum Result 1 - Final, Complete 01/14/19 Sputum Result 2 - Final, Complete 01/14/19 - Final, Complete 01/14/19 Antimicrobic Susceptibility - Final, Complete Medications Current Medications Albuterol/ Ipratropium (Duoneb) 3 ml 1X ONCE NEB Last administered on 01/12/19at 14:56; Start 01/12/19 at 14:30; Stop 01/12/19 at 14:35; Status DC Piperacillin Sod/ Tazobactam Sod (Zosyn Per Pharmacy) 1 each PRN DAILY PRN MC SEE COMMENTS; Start 01/12/19 at 16:15; Status Cancel Vancomycin HCl (Vanco Per Pharmacy) 1 each PRN DAILY PRN MC SEE COMMENTS Last administered on 01/16/19at 10:42; Start 01/12/19 at 16:15; Stop 01/17/19 at 13:44; Status DC Vancomycin HCl 1.25 gm/Sodium Chloride 250 ml @ 166.667 mls/hr 1X ONCE IV Last administered on 01/12/19at 18:18; Start 01/12/19 at 16:15; Stop 01/12/19 at 17:44; Status DC Piperacillin Sod/ Tazobactam Sod 3.375 gm/Sodium Chloride 50 ml @ 100 mls/hr 1X ONCE IV Last administered on 01/12/19at 17:28; Start 01/12/19 at 16:15; Stop 01/12/19 at 16:44; Status DC Oxycodone/ Acetaminophen (Percocet 5/325) 1 tab 1X ONCE PO Last administered on 01/12/19at 18:18; Start 01/12/19 at 18:00; Stop 01/12/19 at 18:08; Status DC Fentanyl Citrate (Fentanyl 2ml Vial) 25 mcg PRN Q2HR PRN IV PAIN Last administered on 01/18/19 07:34; Start 01/12/19 at 18:30 Piperacillin Sod/ Tazobactam Sod 3.375 gm/Sodium Chloride 50 ml @ 100 mls/hr Q6HRS IV Last administered on 01/13/19 06:13; Start 01/13/19 at 00:00; Stop 01/13/19 at 11:26; Status DC Vancomycin HCl 750 mg/Sodium Chloride 250 ml @ 250 mls/hr Q24H IV Last administered on 01/13/19 17:11; Start 01/13/19 at 18:00; Stop 01/14/19 at 18:54; Status DC Vancomycin HCl (Vancomycin Trough Level) 1 each 1X ONCE MC Last administered on 01/14/19 17:30; Start 01/14/19 at 17:30; Stop 01/14/19 at 17:31; Status DC Amlodipine Besylate (Norvasc) 5 mg DAILY PO Last administered on 01/15/19 08:36; Start 01/13/19 at 09:00; Stop 01/15/19 at 20:49; Status DC Fentanyl (Duragesic 50mcg/ Hr Patch) 1 patch Q3DAYS TD ; Start 01/15/19 at 09:00; Status UNV Gabapentin (Neurontin) 300 mg BID PO Last administered on 01/20/19 08:41; Start 01/12/19 at 21:00 Lactobacillus Rhamnosus (Culturelle) 1 cap BID PO Last administered on 01/20/19 08:40; Start 01/12/19 at 21:00 Metoclopramide HCl (Reglan) 5 mg QIDACHS PO Last administered on 01/20/19 08:40; Start 01/12/19 at 21:00 Ondansetron HCl (Zofran Odt) 4 mg PRN Q6HRS PRN PEG NAUSEA/VOMITING Last administered on 01/16/19 19:14; Start 01/12/19 at 19:45 Oxycodone/ Acetaminophen (Percocet 7.5/ 325) 1 tab PRN QID PRN PO MODERATE TO SEVERE PAIN Last administered on 01/20/19 08:41; Start 01/12/19 at 19:45 Non-Formulary Medication (Albuterol Sulfate (Albuterol Sulfate Neb Soln)) 1 vial QID NEB ; Start 01/12/19 at 21:00; Status UNV Cyproheptadine HCl (Periactin) 4 mg TID PEG Last administered on 01/20/19 08:40; Start 01/12/19 at 21:00 Donepezil HCl (Aricept) 5 mg BID PEG Last administered on 01/20/19 08:41; Start 01/13/19 at 09:00 Pantoprazole Sodium (PROTONIX VIAL for IV PUSH) 40 mg DAILYAC IVP ; Start 01/13/19 at 07:30; Status UNV Enoxaparin Sodium (Lovenox 40mg Syringe) 40 mg Q24H SQ Last administered on 01/19/19 21:39; Start 01/12/19 at 20:00 Albuterol Sulfate (Ventolin Neb Soln) 2.5 mg RTQID NEB Last administered on 01/20/19 08:27; Start 01/12/19 at 20:00 Lansoprazole (Prevacid) 30 mg DAILYAC PEG Last administered on 01/20/19 08:45; Start 01/13/19 at 07:30 Fentanyl (Duragesic 50mcg/ Hr Patch) 1 patch Q3DAYS TD Last administered on 01/18/19 08:25; Start 01/12/19 at 21:00 Ceftolozane/ Tazobactam 1500 mg/Sodium Chloride 100 ml @ 100 mls/hr Q8HRS IV Last administered on 01/20/19 05:56; Start 01/13/19 at 14:00 Polyethylene Glycol (miraLAX PACKET) 17 gm PRN BID PRN GT CONSTIPATION Last administered on 01/16/19 08:29; Start 01/13/19 at 12:45 Ondansetron HCl (Zofran) 4 mg PRN Q8HRS PRN IV NAUSEA/VOMITING Last administered on 01/20/19 09:03; Start 01/13/19 at 18:45 Vancomycin HCl 1 gm/Sodium Chloride 250 ml @ 250 mls/hr 1X ONCE IV Last administered on 01/14/19 20:01; Start 01/14/19 at 19:30; Stop 01/14/19 at 20:29; Status DC Vancomycin HCl 750 mg/Sodium Chloride 250 ml @ 250 mls/hr Q12H IV Last administered on 01/15/19 20:53; Start 01/15/19 at 08:00; Stop 01/16/19 at 10:34; Status DC Vancomycin HCl (Vancomycin Trough Level) 1 each 1X ONCE MC Last administered on 01/16/19 07:30; Start 01/16/19 at 07:30; Stop 01/16/19 at 07:31; Status DC Amlodipine Besylate (Norvasc) 10 mg DAILY PO Last administered on 01/20/19 0 8:45; Start 01/16/19 at 09:00 Amlodipine Besylate (Norvasc) 5 mg 1X ONCE PO Last administered on 01/15/19 21:01; Start 01/15/19 at 21:00; Stop 01/15/19 at 21:01; Status DC Vancomycin HCl 1 gm/Sodium Chloride 250 ml @ 250 mls/hr Q12H IV Last administered on 01/17/19 11:54; Start 01/16/19 at 11:00; Stop 01/17/19 at 13:42; Status DC Alteplase, Recombinant (Cathflo For Central Catheter Clearance) 1 mg 1X ONCE INT CAT Last administered on 01/16/19 16:01; Start 01/16/19 at 13:15; Stop 01/16/19 at 13:16; Status DC Nitroglycerin (Nitrostat) 0.4 mg STK-MED ONCE SL ; Start 01/17/19 at 19:00; Stop 01/17/19 at 19:01; Status DC Iron Sucrose 500 mg/Sodium Chloride 275 ml @ 78.571 mls/ hr 1X ONCE IV Last administered on 01/18/19at 11:40; Start 01/18/19 at 09:00; Stop 01/18/19 at 12:29; Status DC Active Scripts Active Percocet 7.5-325 Mg Tablet (Oxycodone/Acetaminophen) 1 Each Tablet 1 Tab PO QID PRN MDD 1 FENTANYL 50mcg/hr (Fentanyl) 1 Each Patch.td72 1 Patch TP Q3DAYS MDD 1 Culturelle (Lactobacillus Rhamnosus Gg) 1 Each Cap.sprink 1 Cap PO BID 30 Days Reported Albuterol Sulfate Neb Soln (Albuterol Sulfate) 0.63 Mg/3 Ml Vial.neb 1 Vial NEB QID Gabapentin (Gabapentin) 300 Mg Capsule 300 Mg PO BID PRN Amlodipine Besylate 5 Mg Tablet 5 Mg PO DAILY Pantoprazole Sodium 40 Mg Tablet.dr 40 Mg PEG BID Donepezil Hcl 5 Mg Tablet 5 Mg PEG BID Reglan (Metoclopramide Hcl) 10 Mg Tablet 5 Mg PO QIDACHS Cyproheptadine Hcl 2 Mg/5 Ml Syrup 10 Ml PEG TID Ondansetron Odt (Ondansetron) 4 Mg Tab.rapdis 4 Mg PEG QIDPRN PRN Vitals/I & O Vital Sign - Last 24 Hours 01/19/19 01/19/19 01/19/19 01/19/19 11:00 12:30 15:00 15:47 Temp 98.0 98.5 98.0 98.5 Pulse 90 101 Resp 20 18 B/P (MAP) 107/63 (78) 113/54 (73) Pulse Ox 95 95 98 O2 Delivery Tracheal Collar Tracheal Collar Tracheal Collar Tracheal Collar O2 Flow Rate 10.0 10.0 01/19/19 01/19/19 01/19/19 01/19/19 15:59 16:59 19:48 20:30 Temp 98.4 98.4 Pulse 100 Resp 19 20 B/P (MAP) 120/65 (83) Pulse Ox 98 95 O2 Delivery Tracheal Collar Tracheal Collar Trach Collar O2 Flow Rate 10.0 10.0 01/19/19 01/19/19 01/20/19 01/20/19 22:00 23:58 03:20 03:30 Temp 97.8 98.2 97.8 98.2 Pulse 114 100 Resp 18 20 16 18 B/P (MAP) 156/70 (98) 161/84 (109) Pulse Ox 60 91 94 O2 Delivery Tracheal Collar Tracheal Collar 01/20/19 01/20/19 01/20/19 01/20/19 04:30 08:33 08:41 08:45 Pulse 101 Resp 18 B/P (MAP) 161/84 Pulse Ox 60 60 O2 Delivery Tracheal Collar Tracheal Collar O2 Flow Rate 10.0 10.0 Intake and Output 01/19/19 01/19/19 01/20/19 15:00 23:00 07:00 Intake Total 1640 ml 1360 ml 0 ml Balance 1640 ml 1360 ml 0 ml Nutrition Consultation Dietary Evaluation: Comments: Continue with TF order Expected Outcomes/Goals: TF tolerance- met, goal ongoing Malnutrition Findings: Body Fat Depletion (Non Severe: Mild Depletion Weight Status: Underweight BRIJESH JARAMILLO MD January 20, 2019 09:25
[2019-01-20 10:00] VITALS: BP 161/85
--- NOTE | 2019-01-20 10:46 | PDOC ---
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 status post recent bronch 01/01/19 Acute on chronic hypercapnic respiratory failure Chronic dysphagia, chronically PEG on tube feeds Hx of lung cancer and laryngeal cancer - s/p trach, stable HTN History of Present Illness History of Present Illness She asks me when she can go home Same Deep suctioning hurts her causes her discomfort but that's what she needs As per ID note: Cont merrem Off Zerbaxa 01/18 F/U susceptibilities Zerbaxa and Vabomere added to testing, d/w micro Probiotics We are still waiting on final culture identification sensitivities Plan: we'll DC with home health once on by mouth antibiotics Continue same for now, not ready to dc as cultures not finalized Vitals Vitals Vital Signs Date Time Temp Pulse Resp B/P (MAP) Pulse Ox O2 Delivery O2 Flow Rate FiO2 01/20/19 08:45 101 161/84 01/20/19 08:41 60 10.0 01/20/19 08:33 Tracheal Collar 01/20/19 04:30 18 01/20/19 03:20 98.2 98.2 Physical Exam Physical Exam GENERAL: Propped up in bed, alert, NAD HENT: Oral cavity clear NECK: Trach shield LUNGS: congested, tachypneic HEART: S1, S2 ABDOMEN: Soft, NT, PEG EXTREMITIES: No edema or cyanosis. SKIN: No rash NEUROLOGIC: Alert, responding appropriately Port clean General: Alert, No acute distress Heart: Regular rate Lungs: Crackles Abdomen: Normal bowel sounds, Soft, No tenderness, No hepatosplenomegaly, No masses, Other (PEG site clean) Extremities: No clubbing, No cyanosis, No edema, Normal pulses, No tenderness/swelling Skin: No rashes, No breakdown, No significant lesion Labs LABS Laboratory Tests Test 01/19/19 13:52 01/20/19 06:00 Erythrocyte Sedimentation Rate 64 (0-25) White Blood Count 10.6 x10^3/uL (4.0-11.0) Red Blood Count 3.81 x10^6/uL (3.50-5.40) Hemoglobin 7.7 g/dL (12.0-15.5) Hematocrit 27.2 % (36.0-47.0) Mean Corpuscular Volume 71 fL (79-100) Mean Corpuscular Hemoglobin 20 pg (25-35) Mean Corpuscular Hemoglobin Concent 29 g/dL (31-37) Red Cell Distribution Width 20.1 % (11.5-14.5) Platelet Count 426 x10^3/uL (140-400) Neutrophils (%) (Auto) 71 % (31-73) Lymphocytes (%) (Auto) 22 % (24-48) Monocytes (%) (Auto) 5 % (0-9) Eosinophils (%) (Auto) 2 % (0-3) Basophils (%) (Auto) 1 % (0-3) Neutrophils # (Auto) 7.5 x10^3uL (1.8-7.7) Lymphocytes # (Auto) 2.3 x10^3/uL (1.0-4.8) Monocytes # (Auto) 0.6 x10^3/uL (0.0-1.1) Eosinophils # (Auto) 0.2 x10^3/uL (0.0-0.7) Basophils # (Auto) 0.1 x10^3/uL (0.0-0.2) Sodium Level 137 mmol/L (136-145) Potassium Level 4.0 mmol/L (3.5-5.1) Chloride Level 100 mmol/L (98-107) Carbon Dioxide Level 34 mmol/L (21-32) Anion Gap 3 (6-14) Blood Urea Nitrogen 10 mg/dL (7-20) Creatinine 0.7 mg/dL (0.6-1.0) Estimated GFR (Cockcroft-Gault) 98.2 Glucose Level 86 mg/dL (70-99) Calcium Level 9.5 mg/dL (8.5-10.1) Review of Systems Review of Systems A 14 point ROS was completed with the following noted as positive: Other systems reviewed and negative. \CONSTITUTIONAL: No fever or chills EYES: No recent changes SKIN: No rash or itching CARDIOVASCULAR: No chest pain, syncope, palpitations, or edema RESPIRATORY: No SOB or cough GASTROINTESTINAL: No nausea, vomiting or abdominal pain NEUROLOGICAL: No headaches or weakness ENDOCRINE: No cold or heat intolerance GENITOURINARY: No urgency or frequency of urination MUSCULOSKELETAL: No back pain or joint pain LYMPHATICS: No enlarged lymph nodes PSYCHIATRIC: No anxiety or depression Assessment and Plan Assessmemt and Plan Problems Medical Problems: (1) Dyspnea Status: Acute Comment Review of Relevant I have reviewed the following items miko (where applicable) has been applied. Labs Laboratory Tests Test 01/19/19 06:00 01/19/19 13:52 01/20/19 06:00 White Blood Count 10.1 x10^3/uL (4.0-11.0) 10.6 x10^3/uL (4.0-11.0) Red Blood Count 3.64 x10^6/uL (3.50-5.40) 3.81 x10^6/uL (3.50-5.40) Hemoglobin 7.7 g/dL (12.0-15.5) 7.7 g/dL (12.0-15.5) Hematocrit 26.2 % (36.0-47.0) 27.2 % (36.0-47.0) Mean Corpuscular Volume 72 fL (79-100) 71 fL (79-100) Mean Corpuscular Hemoglobin 21 pg (25-35) 20 pg (25-35) Mean Corpuscular Hemoglobin Concent 30 g/dL (31-37) 29 g/dL (31-37) Red Cell Distribution Width 19.0 % (11.5-14.5) 20.1 % (11.5-14.5) Platelet Count 411 x10^3/uL (140-400) 426 x10^3/uL (140-400) Neutrophils (%) (Auto) 77 % (31-73) 71 % (31-73) Lymphocytes (%) (Auto) 16 % (24-48) 22 % (24-48) Monocytes (%) (Auto) 5 % (0-9) 5 % (0-9) Eosinophils (%) (Auto) 2 % (0-3) 2 % (0-3) Basophils (%) (Auto) 1 % (0-3) 1 % (0-3) Neutrophils # (Auto) 7.7 x10^3uL (1.8-7.7) 7.5 x10^3uL (1.8-7.7) Lymphocytes # (Auto) 1.6 x10^3/uL (1.0-4.8) 2.3 x10^3/uL (1.0-4.8) Monocytes # (Auto) 0.5 x10^3/uL (0.0-1.1) 0.6 x10^3/uL (0.0-1.1) Eosinophils # (Auto) 0.2 x10^3/uL (0.0-0.7) 0.2 x10^3/uL (0.0-0.7) Basophils # (Auto) 0.1 x10^3/uL (0.0-0.2) 0.1 x10^3/uL (0.0-0.2) Sodium Level 137 mmol/L (136-145) 137 mmol/L (136-145) Potassium Level 3.8 mmol/L (3.5-5.1) 4.0 mmol/L (3.5-5.1) Chloride Level 98 mmol/L (98-107) 100 mmol/L (98-107) Carbon Dioxide Level 36 mmol/L (21-32) 34 mmol/L (21-32) Anion Gap 3 (6-14) 3 (6-14) Blood Urea Nitrogen 10 mg/dL (7-20) 10 mg/dL (7-20) Creatinine 0.7 mg/dL (0.6-1.0) 0.7 mg/dL (0.6-1.0) Estimated GFR (Cockcroft-Gault) 98.2 98.2 Glucose Level 90 mg/dL (70-99) 86 mg/dL (70-99) Calcium Level 9.2 mg/dL (8.5-10.1) 9.5 mg/dL (8.5-10.1) Erythrocyte Sedimentation Rate 64 (0-25) Laboratory Tests Test 01/19/19 13:52 01/20/19 06:00 Erythrocyte Sedimentation Rate 64 (0-25) White Blood Count 10.6 x10^3/uL (4.0-11.0) Red Blood Count 3.81 x10^6/uL (3.50-5.40) Hemoglobin 7.7 g/dL (12.0-15.5) Hematocrit 27.2 % (36.0-47.0) Mean Corpuscular Volume 71 fL (79-100) Mean Corpuscular Hemoglobin 20 pg (25-35) Mean Corpuscular Hemoglobin Concent 29 g/dL (31-37) Red Cell Distribution Width 20.1 % (11.5-14.5) Platelet Count 426 x10^3/uL (140-400) Neutrophils (%) (Auto) 71 % (31-73) Lymphocytes (%) (Auto) 22 % (24-48) Monocytes (%) (Auto) 5 % (0-9) Eosinophils (%) (Auto) 2 % (0-3) Basophils (%) (Auto) 1 % (0-3) Neutrophils # (Auto) 7.5 x10^3uL (1.8-7.7) Lymphocytes # (Auto) 2.3 x10^3/uL (1.0-4.8) Monocytes # (Auto) 0.6 x10^3/uL (0.0-1.1) Eosinophils # (Auto) 0.2 x10^3/uL (0.0-0.7) Basophils # (Auto) 0.1 x10^3/uL (0.0-0.2) Sodium Level 137 mmol/L (136-145) Potassium Level 4.0 mmol/L (3.5-5.1) Chloride Level 100 mmol/L (98-107) Carbon Dioxide Level 34 mmol/L (21-32) Anion Gap 3 (6-14) Blood Urea Nitrogen 10 mg/dL (7-20) Creatinine 0.7 mg/dL (0.6-1.0) Estimated GFR (Cockcroft-Gault) 98.2 Glucose Level 86 mg/dL (70-99) Calcium Level 9.5 mg/dL (8.5-10.1) Microbiology 01/12/19 Blood Culture - Final, Complete NO GROWTH AFTER 5 DAYS 01/14/19 - Final, Complete 01/14/19 - Final, Complete 01/14/19 - Final, Complete 01/14/19 - Final, Complete 01/14/19 - Final, Complete 01/14/19 Gram Stain Evaluation - Final, Complete 01/14/19 Sputum Culture - Final, Complete 01/14/19 Sputum Result 1 - Final, Complete 01/14/19 Sputum Result 2 - Final, Complete 01/14/19 - Final, Complete 01/14/19 Antimicrobic Susceptibility - Final, Complete Medications Current Medications Albuterol/ Ipratropium (Duoneb) 3 ml 1X ONCE NEB Last administered on 01/12/19at 14:56; Start 01/12/19 at 14:30; Stop 01/12/19 at 14:35; Status DC Piperacillin Sod/ Tazobactam Sod (Zosyn Per Pharmacy) 1 each PRN DAILY PRN MC SEE COMMENTS; Start 01/12/19 at 16:15; Status Cancel Vancomycin HCl (Vanco Per Pharmacy) 1 each PRN DAILY PRN MC SEE COMMENTS Last administered on 01/16/19at 10:42; Start 01/12/19 at 16:15; Stop 01/17/19 at 13:44; Status DC Vancomycin HCl 1.25 gm/Sodium Chloride 250 ml @ 166.667 mls/hr 1X ONCE IV Last administered on 01/12/19 18:18; Start 01/12/19 at 16:15; Stop 01/12/19 at 17:44; Status DC Piperacillin Sod/ Tazobactam Sod 3.375 gm/Sodium Chloride 50 ml @ 100 mls/hr 1X ONCE IV Last administered on 01/12/19at 17:28; Start 01/12/19 at 16:15; Stop 01/12/19 at 16:44; Status DC Oxycodone/ Acetaminophen (Percocet 5/325) 1 tab 1X ONCE PO Last administered on 01/12/19 18:18; Start 01/12/19 at 18:00; Stop 01/12/19 at 18:08; Status DC Fentanyl Citrate (Fentanyl 2ml Vial) 25 mcg PRN Q2HR PRN IV PAIN Last administered on 01/18/19at 07:34; Start 01/12/19 at 18:30 Piperacillin Sod/ Tazobactam Sod 3.375 gm/Sodium Chloride 50 ml @ 100 mls/hr Q6HRS IV Last administered on 01/13/19 06:13; Start 01/13/19 at 00:00; Stop 01/13/19 at 11:26; Status DC Vancomycin HCl 750 mg/Sodium Chloride 250 ml @ 250 mls/hr Q24H IV Last administered on 01/13/19 17:11; Start 01/13/19 at 18:00; Stop 01/14/19 at 18:54; Status DC Vancomycin HCl (Vancomycin Trough Level) 1 each 1X ONCE MC Last administered on 01/14/19at 17:30; Start 01/14/19 at 17:30; Stop 01/14/19 at 17:31; Status DC Amlodipine Besylate (Norvasc) 5 mg DAILY PO Last administered on 01/15/19 08:36; Start 01/13/19 at 09:00; Stop 01/15/19 at 20:49; Status DC Fentanyl (Duragesic 50mcg/ Hr Patch) 1 patch Q3DAYS TD ; Start 01/15/19 at 09:00; Status UNV Gabapentin (Neurontin) 300 mg BID PO Last administered on 01/20/19 08:41; Start 01/12/19 at 21:00 Lactobacillus Rhamnosus (Culturelle) 1 cap BID PO Last administered on 01/20/19 08:40; Start 01/12/19 at 21:00 Metoclopramide HCl (Reglan) 5 mg QIDACHS PO Last administered on 01/20/19 08:40; Start 01/12/19 at 21:00 Ondansetron HCl (Zofran Odt) 4 mg PRN Q6HRS PRN PEG NAUSEA/VOMITING Last administered on 01/16/19 19:14; Start 01/12/19 at 19:45 Oxycodone/ Acetaminophen (Percocet 7.5/ 325) 1 tab PRN QID PRN PO MODERATE TO SEVERE PAIN Last administered on 01/20/19 08:41; Start 01/12/19 at 19:45 Non-Formulary Medication (Albuterol Sulfate (Albuterol Sulfate Neb Soln)) 1 vial QID NEB ; Start 01/12/19 at 21:00; Status UNV Cyproheptadine HCl (Periactin) 4 mg TID PEG Last administered on 01/20/19 08:40; Start 01/12/19 at 21:00 Donepezil HCl (Aricept) 5 mg BID PEG Last administered on 01/20/19 08:41; Start 01/13/19 at 09:00 Pantoprazole Sodium (PROTONIX VIAL for IV PUSH) 40 mg DAILYAC IVP ; Start 01/13/19 at 07:30; Status UNV Enoxaparin Sodium (Lovenox 40mg Syringe) 40 mg Q24H SQ Last administered on 01/19/19 21:39; Start 01/12/19 at 20:00 Albuterol Sulfate (Ventolin Neb Soln) 2.5 mg RTQID NEB Last administered on 01/20/19 08:27; Start 01/12/19 at 20:00 Lansoprazole (Prevacid) 30 mg DAILYAC PEG Last administered on 01/20/19 08:45; Start 01/13/19 at 07:30 Fentanyl (Duragesic 50mcg/ Hr Patch) 1 patch Q3DAYS TD Last administered on 01/18/19 08:25; Start 01/12/19 at 21:00 Ceftolozane/ Tazobactam 1500 mg/Sodium Chloride 100 ml @ 100 mls/hr Q8HRS IV Last administered on 01/20/19 05:56; Start 01/13/19 at 14:00 Polyethylene Glycol (miraLAX PACKET) 17 gm PRN BID PRN GT CONSTIPATION Last administered on 01/16/19 08:29; Start 01/13/19 at 12:45 Ondansetron HCl (Zofran) 4 mg PRN Q8HRS PRN IV NAUSEA/VOMITING Last administered on 01/20/19 09:03; Start 01/13/19 at 18:45 Vancomycin HCl 1 gm/Sodium Chloride 250 ml @ 250 mls/hr 1X ONCE IV Last administered on 01/14/19 20:01; Start 01/14/19 at 19:30; Stop 01/14/19 at 20:29; Status DC Vancomycin HCl 750 mg/Sodium Chloride 250 ml @ 250 mls/hr Q12H IV Last administered on 01/15/19 20:53; Start 01/15/19 at 08:00; Stop 01/16/19 at 10:34; Status DC Vancomycin HCl (Vancomycin Trough Level) 1 each 1X ONCE MC Last administered on 01/16/19 07:30; Start 01/16/19 at 07:30; Stop 01/16/19 at 07:31; Status DC Amlodipine Besylate (Norvasc) 10 mg DAILY PO Last administered on 01/20/19 08:45; Start 01/16/19 at 09:00 Amlodipine Besylate (Norvasc) 5 mg 1X ONCE PO Last administered on 01/15/19 21:01; Start 01/15/19 at 21:00; Stop 01/15/19 at 21:01; Status DC Vancomycin HCl 1 gm/Sodium Chloride 250 ml @ 250 mls/hr Q12H IV Last administered on 01/17/19at 11:54; Start 01/16/19 at 11:00; Stop 01/17/19 at 13:42; Status DC Alteplase, Recombinant (Cathflo For Central Catheter Clearance) 1 mg 1X ONCE INT CAT Last administered on 01/16/19at 16:01; Start 01/16/19 at 13:15; Stop 01/16/19 at 13:16; Status DC Nitroglycerin (Nitrostat) 0.4 mg STK-MED ONCE SL ; Start 01/17/19 at 19:00; Stop 01/17/19 at 19:01; Status DC Iron Sucrose 500 mg/Sodium Chloride 275 ml @ 78.571 mls/ hr 1X ONCE IV Last administered on 01/18/19at 11:40; Start 01/18/19 at 09:00; Stop 01/18/19 at 12:29; Status DC Active Scripts Active Percocet 7.5-325 Mg Tablet (Oxycodone/Acetaminophen) 1 Each Tablet 1 Tab PO QID PRN MDD 1 FENTANYL 50mcg/hr (Fentanyl) 1 Each Patch.td72 1 Patch TP Q3DAYS MDD 1 Culturelle (Lactobacillus Rhamnosus Gg) 1 Each Cap.sprink 1 Cap PO BID 30 Days Reported Albuterol Sulfate Neb Soln (Albuterol Sulfate) 0.63 Mg/3 Ml Vial.neb 1 Vial NEB QID Gabapentin (Gabapentin) 300 Mg Capsule 300 Mg PO BID PRN Amlodipine Besylate 5 Mg Tablet 5 Mg PO DAILY Pantoprazole Sodium 40 Mg Tablet.dr 40 Mg PEG BID Donepezil Hcl 5 Mg Tablet 5 Mg PEG BID Reglan (Metoclopramide Hcl) 10 Mg Tablet 5 Mg PO QIDACHS Cyproheptadine Hcl 2 Mg/5 Ml Syrup 10 Ml PEG TID Ondansetron Odt (Ondansetron) 4 Mg Tab.rapdis 4 Mg PEG QIDPRN PRN Vitals/I & O Vital Sign - Last 24 Hours 01/19/19 01/19/19 01/19/19 01/19/19 11:00 12:30 15:00 15:47 Temp 98.0 98.5 98.0 98.5 Pulse 90 101 Resp 20 18 B/P (MAP) 107/63 (78) 113/54 (73) Pulse Ox 95 95 98 O2 Delivery Tracheal Collar Tracheal Collar Tracheal Collar Tracheal Collar O2 Flow Rate 10.0 10.0 01/19/19 01/19/19 01/19/19 01/19/19 15:59 16:59 19:48 20:30 Temp 98.4 98.4 Pulse 100 Resp 19 20 B/P (MAP) 120/65 (83) Pulse Ox 98 95 O2 Delivery Tracheal Collar Tracheal Collar Trach Collar O2 Flow Rate 10.0 10.0 01/19/19 01/19/19 01/20/19 01/20/19 22:00 23:58 03:20 03:30 Temp 97.8 98.2 97.8 98.2 Pulse 114 100 Resp 18 20 16 18 B/P (MAP) 156/70 (98) 161/84 (109) Pulse Ox 60 91 94 O2 Delivery Tracheal Collar Tracheal Collar 01/20/19 01/20/19 01/20/19 01/20/19 04:30 08:33 08:41 08:45 Pulse 101 Resp 18 B/P (MAP) 161/84 Pulse Ox 60 60 O2 Delivery Tracheal Collar Tracheal Collar O2 Flow Rate 10.0 10.0 Intake and Output 01/19/19 01/19/19 01/20/19 15:00 23:00 07:00 Intake Total 1640 ml 1360 ml 0 ml Balance 1640 ml 1360 ml 0 ml Nutrition Consultation Dietary Evaluation: Comments: Continue with TF order Expected Outcomes/Goals: TF tolerance- met, goal ongoing Malnutrition Findings: Body Fat Depletion (Non Severe: Mild Depletion Weight Status: Underweight HEAVEN KRAUS MD January 20, 2019 10:46
--- NOTE | 2019-01-20 11:12 | PDOC ---
Infectious Disease Note Subjective: Subjective c/o nausea off and on no vomiting Some SOA and increase work of breathing No fevers/chills ROS: ROS Negative except for above. Vital Signs: Vital Signs Vital Signs Date Time Temp Pulse Resp B/P (MAP) Pulse Ox O2 Delivery O2 Flow Rate FiO2 01/20/19 08:45 101 161/84 01/20/19 08:41 60 10.0 01/20/19 08:33 Tracheal Collar 01/20/19 04:30 18 01/20/19 03:20 98.2 98.2 Physical Exam: PHYSICAL EXAM GENERAL: Propped up in bed, alert, NAD HENT: Oral cavity clear NECK: Trach shield LUNGS: congested, tachypneic HEART: S1, S2 ABDOMEN: Soft, NT, PEG EXTREMITIES: No edema or cyanosis. SKIN: No rash NEUROLOGIC: Alert, responding appropriately Port clean Medications: Inpatient Meds: Current Medications Medications (Trade) Dose Ordered Sig/Yuliana Start Time Stop Time Status Last Admin Dose Admin Albuterol Sulfate (Ventolin Neb Soln) 2.5 mg RTQID 01/12/19 20:00 01/20/19 08:27 2.5 MG Albuterol/ Ipratropium (Duoneb) 3 ml 1X ONCE 01/12/19 14:30 01/12/19 14:35 DC 01/12/19 14:56 3 ML Alteplase, Recombinant (Cathflo For Central Catheter Clearance) 1 mg 1X ONCE 01/16/19 13:15 01/16/19 13:16 DC 01/16/19 16:01 1 MG Amlodipine Besylate (Norvasc) 5 mg 1X ONCE 01/15/19 21:00 01/15/19 21:01 DC 01/15/19 21:01 5 MG Ceftolozane/ Tazobactam 1500 mg/Sodium Chloride 100 ml @ 100 mls/hr Q8HRS 01/13/19 14:00 01/20/19 05:56 100 MLS/HR Cyproheptadine HCl (Periactin) 4 mg TID 01/12/19 21:00 01/20/19 08:40 4 MG Donepezil HCl (Aricept) 5 mg BID 01/13/19 09:00 01/20/19 08:41 5 MG Enoxaparin Sodium (Lovenox 40mg Syringe) 40 mg Q24H 01/12/19 20:00 01/19/19 21:39 40 MG Fentanyl (Duragesic 50mcg/ Hr Patch) 1 patch Q3DAYS 01/12/19 21:00 01/18/19 08:25 1 PATCH Fentanyl Citrate (Fentanyl 2ml Vial) 25 mcg PRN Q2HR PRN 01/12/19 18:30 01/18/19 07:34 25 MCG Gabapentin (Neurontin) 300 mg BID 01/12/19 21:00 01/20/19 08:41 300 MG Iron Sucrose 500 mg/Sodium Chloride 275 ml @ 78.571 mls/ hr 1X ONCE 01/18/19 09:00 01/18/19 12:29 DC 01/18/19 11:40 78.571 MLS/HR Lactobacillus Rhamnosus (Culturelle) 1 cap BID 01/12/19 21:00 01/20/19 08:40 1 CAP Lansoprazole (Prevacid) 30 mg DAILYAC 01/13/19 07:30 01/20/19 08:45 30 MG Metoclopramide HCl (Reglan) 5 mg QIDACHS 01/12/19 21:00 01/20/19 08:40 5 MG Nitroglycerin (Nitrostat) 0.4 mg STK-MED ONCE 01/17/19 19:00 01/17/19 19:01 DC Non-Formulary Medication (Albuterol Sulfate (Albuterol Sulfate Neb Soln)) 1 vial QID 01/12/19 21:00 UNV Ondansetron HCl (Zofran Odt) 4 mg PRN Q6HRS PRN 01/12/19 19:45 01/16/19 19:14 4 MG Ondansetron HCl (Zofran) 4 mg PRN Q8HRS PRN 01/13/19 18:45 01/20/19 09:03 4 MG Oxycodone/ Acetaminophen (Percocet 5/325) 1 tab 1X ONCE 01/12/19 18:00 01/12/19 18:08 DC 01/12/19 18:18 1 TAB Oxycodone/ Acetaminophen (Percocet 7.5/ 325) 1 tab PRN QID PRN 01/12/19 19:45 01/20/19 08:41 1 TAB Pantoprazole Sodium (PROTONIX VIAL for IV PUSH) 40 mg DAILYAC 01/13/19 07:30 UNV Piperacillin Sod/ Tazobactam Sod (Zosyn Per Pharmacy) 1 each PRN DAILY PRN 01/12/19 16:15 Cancel Piperacillin Sod/ Tazobactam Sod 3.375 gm/Sodium Chloride 50 ml @ 100 mls/hr Q6HRS 01/13/19 00:00 01/13/19 11:26 DC 01/13/19 06:13 100 MLS/HR Polyethylene Glycol (miraLAX PACKET) 17 gm PRN BID PRN 01/13/19 12:45 01/16/19 08:29 17 GM Vancomycin HCl (Vanco Per Pharmacy) 1 each PRN DAILY PRN 01/12/19 16:15 01/17/19 13:44 DC 01/16/19 10:42 1 EACH Vancomycin HCl (Vancomycin Trough Level) 1 each 1X ONCE 01/16/19 07:30 01/16/19 07:31 DC 01/16/19 07:30 1 EACH Vancomycin HCl 1.25 gm/Sodium Chloride 250 ml @ 166.667 mls/hr 1X ONCE 01/12/19 16:15 01/12/19 17:44 DC 01/12/19 18:18 166.667 MLS/HR Vancomycin HCl 750 mg/Sodium Chloride 250 ml @ 250 mls/hr Q12H 01/15/19 08:00 01/16/19 10:34 DC 01/15/19 20:53 250 MLS/HR Vancomycin HCl 1 gm/Sodium Chloride 250 ml @ 250 mls/hr Q12H 01/16/19 11:00 01/17/19 13:42 DC 01/17/19 11:54 250 MLS/HR Labs: Lab Laboratory Tests Test 01/19/19 13:52 01/20/19 06:00 Erythrocyte Sedimentation Rate 64 (0-25) White Blood Count 10.6 x10^3/uL (4.0-11.0) Red Blood Count 3.81 x10^6/uL (3.50-5.40) Hemoglobin 7.7 g/dL (12.0-15.5) Hematocrit 27.2 % (36.0-47.0) Mean Corpuscular Volume 71 fL (79-100) Mean Corpuscular Hemoglobin 20 pg (25-35) Mean Corpuscular Hemoglobin Concent 29 g/dL (31-37) Red Cell Distribution Width 20.1 % (11.5-14.5) Platelet Count 426 x10^3/uL (140-400) Neutrophils (%) (Auto) 71 % (31-73) Lymphocytes (%) (Auto) 22 % (24-48) Monocytes (%) (Auto) 5 % (0-9) Eosinophils (%) (Auto) 2 % (0-3) Basophils (%) (Auto) 1 % (0-3) Neutrophils # (Auto) 7.5 x10^3uL (1.8-7.7) Lymphocytes # (Auto) 2.3 x10^3/uL (1.0-4.8) Monocytes # (Auto) 0.6 x10^3/uL (0.0-1.1) Eosinophils # (Auto) 0.2 x10^3/uL (0.0-0.7) Basophils # (Auto) 0.1 x10^3/uL (0.0-0.2) Sodium Level 137 mmol/L (136-145) Potassium Level 4.0 mmol/L (3.5-5.1) Chloride Level 100 mmol/L (98-107) Carbon Dioxide Level 34 mmol/L (21-32) Anion Gap 3 (6-14) Blood Urea Nitrogen 10 mg/dL (7-20) Creatinine 0.7 mg/dL (0.6-1.0) Estimated GFR (Cockcroft-Gault) 98.2 Glucose Level 86 mg/dL (70-99) Calcium Level 9.5 mg/dL (8.5-10.1) Micro RUN DATE: 01/19/19 PAGE 1 RUN TIME: 1029 [facility] [address] [place] [address] Jorge Tierney M.D., Customer Development Manager PATIENT: BERNARDO DE LEON ACCT: [id number] LOC: [address] [place] [address] U: [id number] AGE/SX: 78/F ROOM: 674 RE01/12/[address]: ARINA GALLEGOS MD : 1940 BED: 1 DIS: STATUS: ADM IN TLOC: SPEC #: [id number] DAVID: 01/14/19 STATUS: COMP REQ #: [id number] RECD: 01/14/19-1012 [facility] DR: MARY LANIER MD SOURCE: SPUTUM ENTR: 01/14/19-[address] [facility] [address]: ASTER MATOS MD SPDESC: CATHERINE MOSCOSO MD, CHRISTOPHER S MD ORDERED: SPUTUM CULTURE COMMENTS: Specimen Comment: Test(s) Lower Respiratory Culture called t 01/18/2019 at 14 Specimen Comment: :15 EST Procedure Result ----- GRAM STAIN WHITE BLOOD CELLS Final Few GRAM STAIN EPITHELIAL CELLS Final Few GRAM STAIN RESULT 1 Final Comment Many gram negative rods. GRAM STAIN RESULT 2 Final Comment Few gram positive rods. GRAM STAIN RESULT 3 Final Comment Few gram positive cocci GRAM STAIN EVALUATION Final Comment This specimen is of good quality and is acceptable for routine bacterial culture. [facility]formed at: [facility] [address], [place], [place] [id number] Auricular Therapist: YANG Lawrence MD, Phone: [phone] SPUTUM CULTURE-LC Final Final report CONTINUED ON NEXT PAGE RUN DATE: 01/19/19 PAGE 2 RUN TIME: 1021 [facility] [address] [place] [address] Jorge Tierney M.D., Customer Development Manager SPEC: [id number] PATIENT: BERNARDO DE LEON [id number] (Continued) Procedure Result SPUTUM CULT RES 1 Final Comment Achromobacter xylosoxidans ssp. xylosoxidans 3+ Multi-Drug Resistant Organism * This is a corrected result. * A prior result that was reported as final has been changed. 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 * This is a corrected result. * A prior result that was reported as final has been changed. SPUTUM CULT RES 3 Final Comment Routine respiratory jewell 1+ * This is a corrected result. * A prior result that was reported as final has been changed. ANTIMICROBIAL SUSCEPTIBILITY Final Comment S = Susceptible; I = Intermediate; R = Resistant P = Positive; N = Negative MICS are expressed in micrograms per mL Antibiotic RSLT#1 RSLT#2 RSLT#3 RSLT#4 Amikacin R>=64 S<=2 Cefepime R>=64 R =32 Cefotaxime R>=64 Ceftazidime S =4 R>=64 Ceftriaxone R>=64 Ciprofloxacin R>=4 I =2 Gentamicin R>=16 S<=1 CONTINUED ON NEXT PAGE RUN DATE: 01/19/19 PAGE 3 RUN TIME: 1021 [facility] [address] [facility] [place] [address] Jorge Tierney M.D., Customer Development Manager SPEC: [id number] PATIENT: BERNARDO DE LEON [id number] (Continued) Procedure Result ANTIMICROBIAL SUSCEPTIBILITY Final (continued) Imipenem S =4 R>=16 Levofloxacin I =4 Meropenem S<=0.25 I =8 Piperacillin R>=128 Tetracycline R>=16 Ticarcillin S<=8 R>=128 Tobramycin R>=16 S<=1 Performed at: DA - [facility] [address], [place], [place] [id number] Auricular Therapist: YANG Lawrence MD, Phone: [phone] * This is a corrected result. * A prior result that was reported as final has been changed. 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
--- NOTE | 2019-01-20 11:38 | NUR ---
BIBIANA following. BIBIANA phoned and faxed Rx for IV abx to [facility] infusion and [facility] . From previous admission, pt does have full coverage for home infusion. Awaiting to hear back from [facility] to coordinate dc. BIBIANA left a voice mail to Pt's DPOA, Mark and discussed plan with pt's daughter, Frieda via phone. Discussed with Physician.
--- NOTE | 2019-01-20 11:52 | SNU/HH DC ---
DISCHARGE WITH HOME HEALTH DISCHARGE INFORMATION: Discharge Date: January 20, 2019 Final Diagnosis: Problems Medical Problems: (1) Dyspnea Status: Acute Condition on Discharge: Stable CODE STATUS: Code Status: Full HOME HEALTH: Face to Face: I certify this patient is under my care and that I, or a nurse practitioner or physician's insurance claims assistant working with me, had a face to face encounter that meets the physician face to face encounter requirements with this patient on []. Medical Complications: Pneumonia RN For Eval/Treatment: Yes Physical Therapy For: Evalulation/Treatment Occupational Therapy For: Evaluation/Treatment Speech Language Pathology For: Swallow Cognition Home Health Aide For: Self-care BEHAVIORAL HEALTH TECH For: Community Resources Pt Meets Homebound Status: Unsteady balance w/ amb, POST DISCHARGE ORDERS: Activity Instructions for Disc: Activity as tolerated Weight Bearing Status after Di: No restrictions DIET AFTER DISCHARGE: bolus feeds Wound/Incision Care: No wound care needed CHECKS AFTER DISCHARGE: Checks after discharge: Check blood press - daily FOLLOW-UP: Follow up with: id 2 -4 weeks DC TO SNF LABS: BMP 06/22/18, Q 8 hours 750mg Zerbexa for MDRO PNA TREATMENT/EQUIPMENT ORDERS: Adaptive Equipment Issued: None, Bath Bench, Commode Discharge Respiratory Equipmen: Oxygen CERTIFICATION STATEMENT: Certification Statement: Certification Statement: Based on the above finding, I certify that this patient is confined to the home and needs intermittent usp care, physical therapy and/or speech therapy, or continues to need occupational therapy.~ This patient is under my care, and I have initiated the establishment of the plan of care.~ This patient will be followed by myself or a community physician who will periodically review the plan of care. Home Meds Active Scripts Oxycodone/Apap 7.5-325 (PERCOCET 7.5-325 MG TABLET ) 1 Each Tablet, 1 TAB PO QID PRN for PAIN MDD 1, #30 TAB Prov:HEAVEN KRAUS MD 12/09/18 Fentanyl (FENTANYL 50mcg/hr) 1 Each Patch.td72, 1 PATCH TP Q3DAYS for pain MDD 1, #7 PATCH Prov:HEAVEN KRAUS MD 12/09/18 Lactobacillus Rhamnosus Gg (CULTURELLE) 1 Each Cap.sprink, 1 CAP PO BID for 30 Days, #60 CAP Prov:JAVIER IRVIN MD 07/07/17 Reported Medications Albuterol Sulfate (ALBUTEROL SULFATE NEB SOLN) 0.63 Mg/3 Ml Vial.neb, 1 VIAL NEB QID for copd, #150 ML 1 Refill 12/02/18 Gabapentin (GABAPENTIN ) 300 Mg Capsule, 300 MG PO BID PRN for PAIN, CAP 10/19/18 Amlodipine Besylate (AMLODIPINE BESYLATE) 5 Mg Tablet, 5 MG PO DAILY for htn, TAB 10/19/18 Pantoprazole Sodium (PANTOPRAZOLE SODIUM) 40 Mg Tablet.dr, 40 MG PEG BID, TAB 03/11/17 Donepezil Hcl (DONEPEZIL HCL) 5 Mg Tablet, 5 MG PEG BID 03/11/17 Metoclopramide Hcl (REGLAN) 10 Mg Tablet, 5 MG PO QIDACHS 03/11/17 Cyproheptadine Hcl (CYPROHEPTADINE HCL) 2 Mg/5 Ml Syrup, 10 ML PEG TID, MISC 03/11/17 Ondansetron (ONDANSETRON ODT) 4 Mg Tab.rapdis, 4 MG PEG QIDPRN PRN for NAUSEA/VOMITING 06/19/14 HEAVEN KRAUS MD January 20, 2019 11:52
--- NOTE | 2019-01-20 11:54 | PDOC3 ---
Discharge Summary Visit Information Date of Admission: January 12, 2019 Date of Discharge: January 20, 2019 Admitting Diagnosis Comment: HCAP sepsis History of pseudomonas and MRSA in the sputum status post recent bronch 01/01/19 Acute on chronic hypercapnic respiratory failure Chronic dysphagia, chronically PEG on tube feeds Hx of lung cancer and laryngeal cancer - s/p trach, stable HTN Final Diagnosis Problems Medical Problems: (1) Dyspnea Status: Acute Brief Hospital Course Allergies Allergies Coded Allergies Type Severity Reaction Last Updated Verified aspirin Allergy Intermediate hives 03/16/17 Yes I S O L A T I O N *CONTACT* Allergy Unknown 08/15/18 Yes Vital Signs Vital Signs Date Time Temp Pulse Resp B/P (MAP) Pulse Ox O2 Delivery O2 Flow Rate FiO2 01/20/19 10:00 102 17 161/85 (110) 99 Tracheal Collar 01/20/19 08:41 10.0 01/20/19 03:20 98.2 98.2 Lab Results Laboratory Tests Test 01/19/19 06:00 01/19/19 13:52 01/20/19 06:00 White Blood Count 10.1 x10^3/uL (4.0-11.0) 10.6 x10^3/uL (4.0-11.0) Red Blood Count 3.64 x10^6/uL (3.50-5.40) 3.81 x10^6/uL (3.50-5.40) Hemoglobin 7.7 g/dL (12.0-15.5) 7.7 g/dL (12.0-15.5) Hematocrit 26.2 % (36.0-47.0) 27.2 % (36.0-47.0) Mean Corpuscular Volume 72 fL (79-100) 71 fL (79-100) Mean Corpuscular Hemoglobin 21 pg (25-35) 20 pg (25-35) Mean Corpuscular Hemoglobin Concent 30 g/dL (31-37) 29 g/dL (31-37) Red Cell Distribution Width 19.0 % (11.5-14.5) 20.1 % (11.5-14.5) Platelet Count 411 x10^3/uL (140-400) 426 x10^3/uL (140-400) Neutrophils (%) (Auto) 77 % (31-73) 71 % (31-73) Lymphocytes (%) (Auto) 16 % (24-48) 22 % (24-48) Monocytes (%) (Auto) 5 % (0-9) 5 % (0-9) Eosinophils (%) (Auto) 2 % (0-3) 2 % (0-3) Basophils (%) (Auto) 1 % (0-3) 1 % (0-3) Neutrophils # (Auto) 7.7 x10^3uL (1.8-7.7) 7.5 x10^3uL (1.8-7.7) Lymphocytes # (Auto) 1.6 x10^3/uL (1.0-4.8) 2.3 x10^3/uL (1.0-4.8) Monocytes # (Auto) 0.5 x10^3/uL (0.0-1.1) 0.6 x10^3/uL (0.0-1.1) Eosinophils # (Auto) 0.2 x10^3/uL (0.0-0.7) 0.2 x10^3/uL (0.0-0.7) Basophils # (Auto) 0.1 x10^3/uL (0.0-0.2) 0.1 x10^3/uL (0.0-0.2) Sodium Level 137 mmol/L (136-145) 137 mmol/L (136-145) Potassium Level 3.8 mmol/L (3.5-5.1) 4.0 mmol/L (3.5-5.1) Chloride Level 98 mmol/L (98-107) 100 mmol/L (98-107) Carbon Dioxide Level 36 mmol/L (21-32) 34 mmol/L (21-32) Anion Gap 3 (6-14) 3 (6-14) Blood Urea Nitrogen 10 mg/dL (7-20) 10 mg/dL (7-20) Creatinine 0.7 mg/dL (0.6-1.0) 0.7 mg/dL (0.6-1.0) Estimated GFR (Cockcroft-Gault) 98.2 98.2 Glucose Level 90 mg/dL (70-99) 86 mg/dL (70-99) Calcium Level 9.2 mg/dL (8.5-10.1) 9.5 mg/dL (8.5-10.1) Erythrocyte Sedimentation Rate 64 (0-25) Laboratory Tests Test 01/19/19 13:52 01/20/19 06:00 Erythrocyte Sedimentation Rate 64 (0-25) White Blood Count 10.6 x10^3/uL (4.0-11.0) Red Blood Count 3.81 x10^6/uL (3.50-5.40) Hemoglobin 7.7 g/dL (12.0-15.5) Hematocrit 27.2 % (36.0-47.0) Mean Corpuscular Volume 71 fL (79-100) Mean Corpuscular Hemoglobin 20 pg (25-35) Mean Corpuscular Hemoglobin Concent 29 g/dL (31-37) Red Cell Distribution Width 20.1 % (11.5-14.5) Platelet Count 426 x10^3/uL (140-400) Neutrophils (%) (Auto) 71 % (31-73) Lymphocytes (%) (Auto) 22 % (24-48) Monocytes (%) (Auto) 5 % (0-9) Eosinophils (%) (Auto) 2 % (0-3) Basophils (%) (Auto) 1 % (0-3) Neutrophils # (Auto) 7.5 x10^3uL (1.8-7.7) Lymphocytes # (Auto) 2.3 x10^3/uL (1.0-4.8) Monocytes # (Auto) 0.6 x10^3/uL (0.0-1.1) Eosinophils # (Auto) 0.2 x10^3/uL (0.0-0.7) Basophils # (Auto) 0.1 x10^3/uL (0.0-0.2) Sodium Level 137 mmol/L (136-145) Potassium Level 4.0 mmol/L (3.5-5.1) Chloride Level 100 mmol/L (98-107) Carbon Dioxide Level 34 mmol/L (21-32) Anion Gap 3 (6-14) Blood Urea Nitrogen 10 mg/dL (7-20) Creatinine 0.7 mg/dL (0.6-1.0) Estimated GFR (Cockcroft-Gault) 98.2 Glucose Level 86 mg/dL (70-99) Calcium Level 9.5 mg/dL (8.5-10.1) Brief Hospital Course Ms. Ch is a 78 old AA female, came in a again for Sepsis, CAP, trached, pEGd, lots of secretions, FULL CODE, aggressive care per pt and family, CO managed with ID and pulmo, NEeds deep suctioning, NO change in home meds, HAs a xavi cath Merrem x 1 0 days thru port Dwn ID, pulmo, SW 2 notes today Proc: none Discharge Information Condition at Discharge: Improved, Stable Disposition/Orders: D/C to Home w/ HH Scheduled Albuterol Sulfate (Albuterol Sulfate Neb Soln) 0.63 Mg/3 Ml Vial.neb, 1 VIAL NEB QID for copd, #150 Ref 1 (Reported) Entered as Reported by: NAMITA MORRISON on 12/02/18 1810 Last Action: Converted on 01/12/191948 by ARINA GALLEGOS MD Amlodipine Besylate (Amlodipine Besylate) 5 Mg Tablet, 5 MG PO DAILY for htn, (Reported) Entered as Reported by: ANGELINE JANG RN on 10/19/18 1321 Last Action: Continued on 01/12/191948 by ARINA GALLEGOS MD Cyproheptadine Hcl (Cyproheptadine Hcl) 2 Mg/5 Ml Syrup, 10 ML PEG TID, (Reported) Entered as Reported by: JOSÉ LUIS HUTCHINS on 03/11/17 0258 Last Action: Converted on 01/12/191948 by ARINA GALLEGOS MD Donepezil Hcl (Donepezil Hcl) 5 Mg Tablet, 5 MG PEG BID, (Reported) Entered as Reported by: JOSÉ LUIS HUTCHINS on 03/11/17 0258 Last Action: Converted on 01/12/191948 by ARINA GALLEGOS MD Fentanyl (FENTANYL 50mcg/hr) 1 Each Patch.td72, 1 PATCH TP Q3DAYS for pain MDD 1, #7 Prescribed by: HEAVEN KRAUS on 12/09/18 1141 Last Action: Continued on 01/12/191948 by ARINA GALLEGOS MD Lactobacillus Rhamnosus Gg (Culturelle) 1 Each Cap.sprink, 1 CAP PO BID for 30 Days, #60 Prescribed by: JAVIER IRVIN MD on 07/07/17 1200 Last Action: Continued on 01/12/191948 by ARINA GALLEGOS MD Metoclopramide Hcl (Reglan) 10 Mg Tablet, 5 MG PO QIDACHS, (Reported) Entered as Reported by: JOSÉ LUIS HUTCHINS on 03/11/17 0258 Last Action: Continued on 01/12/191948 by ARINA GALLEGOS MD Pantoprazole Sodium (Pantoprazole Sodium) 40 Mg Tablet.dr, 40 MG PEG BID, (Reported) Entered as Reported by: JOSÉ LUIS HUTCHINS on 03/11/17 0258 Scheduled PRN Gabapentin (Gabapentin ) 300 Mg Capsule, 300 MG PO BID PRN for PAIN, (Reported) Entered as Reported by: ANGELINE JANG RN on 10/19/18 1339 Last Action: Continued on 01/12/191948 by ARINA GALLEGOS MD Ondansetron (Ondansetron Odt) 4 Mg Tab.rapdis, 4 MG PEG QIDPRN PRN for NAUSEA/VOMITING, (Reported) Entered as Reported by: AYANA MORAN on 06/19/14 0358 Last Action: Continued on 01/12/191948 by ARINA GALLEGOS MD Oxycodone/Apap 7.5-325 (Percocet 7.5-325 Mg Tablet ) 1 Each Tablet, 1 TAB PO QID PRN for PAIN MDD 1, #30 Prescribed by: HEAVEN KRAUS on 12/09/18 1141 Last Action: Continued on 01/12/191948 by MD NAYANA CATHERINE CHERRIE Y MD January 20, 2019 11:54
[2019-01-20] MEDS ORDERED: FERR325T14 PO (12:03)
[2019-01-20] MEDS ORDERED: MEROPENEM 500 MG in IV NORMAL SALINE 50ML 50 ML IV SCH (14:00)
--- NOTE | 2019-01-20 14:15 | NUR ---
BIBIANA following pt. Spoke with Sophia at [facility] and they are waiting to confirm on benefits for home infusion. Will continue to follow.
--- NOTE | 2019-01-20 16:40 | NUR ---
BIBIANA following pt. Pt does have full coverage for home infusion. [facility] will be delivering drug today and will contact family. Spoke with Sushila at [facility] and they will be visiting pt tomorrow. Pt's daughter, Frieda confirmed she will be at home and requested for transportation. BIBIANA arranged transportation via [employer] between [phone]. BIBIANA left a voice mail to pt's Mark MARTINEZ about plan. LORENA CRAWFORD..
--- NOTE | 2019-01-20 19:19 | NUR ---
Discharge Note: BERNARDO DE LEON [address] [place] [address] Discharge instructions and discharge home medications reviewed with Family Member and a copy given. All questions have been answered and understanding verbalized. The following instructions and handouts were given: DIET, ACTIVITY, MEDICATION LIST, AND FOLLOW-UP INSTRUCTIONS. Discontinued lines and drains: Port A Cath intact. Patient discharged to Home with home health with Family Member via Wheelchair
--- NOTE | 2019-01-20 19:20 | NUR ---
PORT A CATH REACCESSED WITH 3/4 IN 20G AND DRESSING CHANGE PRIOR TO D/C. D/C CARE INSTRUCTIONS GIVEN TO FAMILY PATIENT TO RECEIVE IV ANTIBIOTICS FOR TEN DAYS.
== END 2019-01-20 18:00 | disposition home health service (06) | DRG 871 ==
LOC: ER 12:14 → 6 SOUTH 16:35
PROVIDERS: ADMIT Internal Medicine; ATTEND Internal Medicine
DX: A41.9 Sepsis, unspecified organism (principal); J69.0 Pneumonitis due to inhalation of food and vomit; J96.22 Acute and chronic respiratory failure with hypercapnia; E43 Unspecified severe protein-calorie malnutrition; J96.21 Acute and chronic respiratory failure with hypoxia; Z68.1 Body mass index [BMI] 19.9 or less, adult; I10 Essential (primary) hypertension; D63.8 Anemia in other chronic diseases classified elsewhere; F03.90 Unspecified dementia, unspecified severity, without behavioral disturbance, psychotic disturbance, mood disturbance, and anxiety; R13.10 Dysphagia, unspecified; M19.90 Unspecified osteoarthritis, unspecified site; K59.00 Constipation, unspecified; I25.10 Atherosclerotic heart disease of native coronary artery without angina pectoris; J44.9 Chronic obstructive pulmonary disease, unspecified; Z87.891 Personal history of nicotine dependence; Z92.3 Personal history of irradiation; Z92.21 Personal history of antineoplastic chemotherapy; Z83.3 Family history of diabetes mellitus; Z80.0 Family history of malignant neoplasm of digestive organs; Z85.118 Personal history of other malignant neoplasm of bronchus and lung; Z93.1 Gastrostomy status; Z85.819 Personal history of malignant neoplasm of unspecified site of lip, oral cavity, and pharynx; Z85.21 Personal history of malignant neoplasm of larynx; Z93.0 Tracheostomy status; Z88.6 Allergy status to analgesic agent; Z82.49 Family history of ischemic heart disease and other diseases of the circulatory system; Z87.01 Personal history of pneumonia (recurrent); Z79.899 Other long term (current) drug therapy
CPT/HCPCS: 31720; 36415; 36600; 71045; 80048; 80202; 82607; 82728; 83540; 83550; 83605; 83880; 84145; 84484; 85007; 85025; 85651; 87040; 87070; 87077; 87186; 87205; 93005; 94640; 94760; 96365; 96367; J1650; J1756; J2185; J2405; J2543; J3010; J3370; J7050; J7613; J7620; J8597; Q0162; 97110; 97116; 97530; 97535; 99285-25; J0695; J7030

== ENCOUNTER → 2019-03-11 | Outpatient (CLI) | payer MEDICARE, OTHER ==
[~2019-03-11] MED LIST changes: +FERR325T14 PO; +LIDO700A21 TP; -LIDO700A39 TP; -PANT40TA5 PEG; +PANT40TA77 PEG
--- NOTE | 2019-03-11 17:00 | RAD ---
Radionuclide bone scan, 03/11/2019: HISTORY: Laryngeal cancer, bone pain Whole-body imaging was performed following IV injection of 25 mCi of technetium 99m MDP. No previous bone scan is available at this time for comparison purposes. The following findings are delineated: 1. There is mildly increased activity at the knees, hands, wrists and shoulders compatible with arthritis. 2. No significant abnormal spinal activity is seen. 3. Activity of the radionuclide about the skeleton and major joints is symmetric. 4. Normal activity is evident in the kidneys and bladder. IMPRESSION: No bone scan findings to suggest osseous metastatic disease. Electronically signed by: Jarret Gallegos MD (03/11/2019 4:57 PM) [facility]
== END | disposition home or self-care (01) ==
LOC: NM 08:24
PROVIDERS: ATTEND Internal Medicine Hematology & Oncology
DX: C32.9 Malignant neoplasm of larynx, unspecified (principal); M89.8X9 Other specified disorders of bone, unspecified site
CPT/HCPCS: 78306; A9503

== ENCOUNTER → 2019-05-23 | Day surgery (SDC) | payer MEDICARE, OTHER ==
[~2019-05-23] MED LIST changes: +VALS160T3 PO
--- NOTE | 2019-05-23 13:56 | NUR ---
pt had bedside care by Dr Camacho with bedside PEG tube consult,, Peg tube change to new !8G. well tolerated. Addendum: 05/23/19 at 1405 by KELLIE SULLIVAN RN [employer] lot [id number] 07/01/2020 ref [id number]
--- NOTE | 2019-05-23 14:09 | PDOC1 ---
History and Physical Date of Admission Date of Admission DATE: 05/23/19 TIME: 14:03 Source Source: Chart review History of Present Illness History of Present Illness 79 y/o female, tube-feeding dependent after therapy for prior laryngeal cancer. Current g-tube failing; will not stay on feeding adaptor as worn attachment. Needs replacing. Unable to place endoscopically due to inability to intubate esophagus from past radiation, etc. Past Medical History Cardiovascular: HTN Pulmonary: COPD, Previously Intubated, Pneumonia, Other CENTRAL NERVOUS SYSTEM: Other GI: Other Heme/Onc: Anemia NOS, Cancer Hepatobiliary: No pertinent hx Psych: No pertinent hx Musculoskeletal: Osteoarthritis Rheumatologic: No pertinent hx Infectious disease: No pertinent hx Renal/: No pertinent hx Endocrine: No pertinent hx Past Surgical History Past Surgical History: Cataract Removal, Other Family History Family History: Heart Disease Social History ALCOHOL: none Drugs: None Current Medications Current Medications Active Scripts Active Ferrous Sulfate 325 Mg Tablet 1 Tab PO DAILY Percocet 7.5-325 Mg Tablet (Oxycodone/Acetaminophen) 1 Each Tablet 1 Tab PO QID PRN MDD 1 FENTANYL 50mcg/hr (Fentanyl) 1 Each Patch.td72 1 Patch TP Q3DAYS MDD 1 Culturelle (Lactobacillus Rhamnosus Gg) 1 Each Cap.sprink 1 Cap PO BID 30 Days Reported Diovan (Valsartan) 160 Mg Tablet 160 Mg PO DAILY Albuterol Sulfate Neb Soln (Albuterol Sulfate) 0.63 Mg/3 Ml Vial.neb 1 Vial NEB QID Gabapentin (Gabapentin) 300 Mg Capsule 300 Mg PO BID PRN Amlodipine Besylate 5 Mg Tablet 5 Mg PO DAILY Pantoprazole Sodium (Pantoprazole Sodium) 40 Mg Tablet. 40 Mg PEG BID Donepezil Hcl 5 Mg Tablet 5 Mg PEG BID Reglan (Metoclopramide Hcl) 10 Mg Tablet 5 Mg PO QIDACHS Cyproheptadine Hcl 2 Mg/5 Ml Syrup 10 Ml PEG TID Ondansetron Odt (Ondansetron) 4 Mg Tab.rapdis 4 Mg PEG QIDPRN PRN Allergies Allergies: Coded Allergies: aspirin (Verified Allergy, Intermediate, hives, 05/23/19) I S O L A T I O N *CONTACT* (Verified Allergy, Unknown, 08/15/18) ROS Review of System Otherwise negative. Physical Exam General: Oriented X3, Cooperative, No acute distress Lungs: Clear to auscultation, Other (trach) Heart: S1S2, RRR, no gallops, no murmurs Abdomen: Normal bowel sounds, Soft, No tenderness, No hepatosplenomegaly, No masses, Other (PEG present) Rectal Exam: not examined Extremities: No clubbing, No cyanosis, No edema Skin: No significant lesion Neuro: Normal tone, Sensation intact, Cranial nerves 3-12 NL, Reflexes 2+ Psych/Mental Status: Mental status NL, Mood NL VTE Prophylaxis Ordered VTE Prophylaxis Devices: No VTE Pharmacological Prophylaxi: No Assessment/Plan Assessment/Plan IMP: Worn g-tube. PLAN: Old tube removed and new tube placed externally. Tolerated well. Call if any recurrent issues. If larger bore tube desired, Interventional Radiology would have to place as tract would have to be dilated. PERRY MARION MD May 23, 2019 14:09
[2019-05-23 14:12] VITALS: BP 161/85
== END | disposition home or self-care (01) ==
LOC: SURG 13:20
PROVIDERS: ATTEND Internal Medicine Gastroenterology
DX: K94.23 Gastrostomy malfunction (principal); I10 Essential (primary) hypertension; J44.9 Chronic obstructive pulmonary disease, unspecified; M19.90 Unspecified osteoarthritis, unspecified site; Z98.890 Other specified postprocedural states; Z82.49 Family history of ischemic heart disease and other diseases of the circulatory system; Z79.899 Other long term (current) drug therapy; Z87.01 Personal history of pneumonia (recurrent); Z88.6 Allergy status to analgesic agent; Z91.041 Radiographic dye allergy status
CPT/HCPCS: G0463

== ENCOUNTER 2019-06-27 19:57 | Inpatient (IN) | payer MEDICARE, OTHER ==
[~2019-06-27] VITALS: Ht 162.6 cm; Wt 48.3 kg
--- NOTE | 2019-06-27 20:13 | PHYS DOC ---
Past Medical History Past Medical History: Cancer, COPD, Dementia, Hypertension, MRSA, Pneumonia, Other Additional Past Medical Histor: Lung CA Past Surgical History: Other Additional Past Surgical Histo: Cataract,PEG tube,CA trach,PORT Alcohol Use: None Drug Use: None Adult General Chief Complaint Chief Complaint: OVERDOSE HPI HPI Patient is a 79-year-old female who arrives via EMS from home with report of mental status change. Patient reportedly had been checked on this evening and patient found by family to be unresponsive. They placed an O2 sat probe on her finger and found her oxygen saturation to be in the 30s. EMS was then called and upon EMS arrival, patient was unresponsive. An IV was established and patient given a total of 1 mg of Narcan after which patient became responsive. EMS reports that they did suction quite a bit of purulent sputum from patient's tracheostomy tube and oxygen levels came up. Patient now returned to baseline and oxygen level in the 90s on 12 L of blow-by oxygen. Additional history is limited as patient is nonverbal.[] Review of Systems Review of Systems Constitutional: No reported fever[] Respiratory: Positive shortness of breath [] Cardiovascular: No additional information not addressed in HPI [] GI: Positive vomiting noted by EMS[] Neurologic: Positive mental status changes [] Unable to fully obtain review of systems due to patient nonverbal status. Current Medications Current Medications Current Medications Medications (Trade) Dose Ordered Sig/Yuliana Start Time Stop Time Status Last Admin Dose Admin Albuterol/ Ipratropium (Duoneb) 3 ml 1X ONCE 06/27/19 20:15 06/27/19 20:16 DC 06/27/19 20:51 3 ML Lorazepam (Ativan Inj) 2 mg 1X ONCE 06/27/19 21:00 06/27/19 21:01 DC 06/27/19 20:56 2 MG Sodium Chloride 1,000 ml @ 125 mls/hr 1X ONCE 06/27/19 20:15 06/28/19 04:14 06/27/19 21:15 125 MLS/HR Allergies Allergies Allergies Coded Allergies Type Severity Reaction Last Updated Verified aspirin Allergy Intermediate hives 05/23/19 Yes I S O L A T I O N *CONTACT* Allergy Unknown 08/15/18 Yes Physical Exam Physical Exam Constitutional: Cachectic, no acute distress. [] HENT: Normocephalic, atraumatic, bilateral external ears normal, oropharynx dry, no oral exudates, nose normal. [] Eyes: PERRLA, EOMI, conjunctiva normal, no discharge. [] Neck: Normal range of motion, no tenderness, supple, tracheostomy tube in place with purulent sputum noted around tube. [] Cardiovascular: Tachycardic rate with regular rhythm[] Lungs & Thorax: Coarse rhonchi are noted bilaterally to auscultation [] Abdomen: Bowel sounds normal, soft. [] Skin: Warm, dry, no erythema, no rash. [] Extremities: No tenderness, no cyanosis, no clubbing, ROM intact, no edema. [] Neurologic: Awake and alert, no obvious focal deficits noted. [] Current Patient Data Vital Signs Vital Signs Date Time Temp Pulse Resp B/P (MAP) Pulse Ox O2 Delivery O2 Flow Rate FiO2 06/27/19 20:40 100 Ventilator Lab Values Laboratory Tests Test 06/27/19 20:52 White Blood Count 17.4 x10^3/uL (4.0-11.0) H Red Blood Count 3.77 x10^6/uL (3.50-5.40) Hemoglobin 10.1 g/dL (12.0-15.5) L Hematocrit 32.0 % (36.0-47.0) L Mean Corpuscular Volume 85 fL (79-100) Mean Corpuscular Hemoglobin 27 pg (25-35) Mean Corpuscular Hemoglobin Concent 32 g/dL (31-37) Red Cell Distribution Width 16.2 % (11.5-14.5) H Platelet Count 335 x10^3/uL (140-400) Neutrophils (%) (Auto) 93 % (31-73) H Lymphocytes (%) (Auto) 3 % (24-48) L Monocytes (%) (Auto) 3 % (0-9) Eosinophils (%) (Auto) 0 % (0-3) Basophils (%) (Auto) 0 % (0-3) Neutrophils # (Auto) 16.3 x10^3/uL (1.8-7.7) H Lymphocytes # (Auto) 0.5 x10^3/uL (1.0-4.8) L Monocytes # (Auto) 0.6 x10^3/uL (0.0-1.1) Eosinophils # (Auto) 0.0 x10^3/uL (0.0-0.7) Basophils # (Auto) 0.1 x10^3/uL (0.0-0.2) Platelet Estimate Pending Prothrombin Time 13.7 SEC (11.7-14.0) Prothrombin Time INR 1.1 (0.8-1.1) Sodium Level 136 mmol/L (136-145) Potassium Level 4.1 mmol/L (3.5-5.1) Chloride Level 99 mmol/L (98-107) Carbon Dioxide Level 33 mmol/L (21-32) H Anion Gap 4 (6-14) L Blood Urea Nitrogen 18 mg/dL (7-20) Creatinine 1.0 mg/dL (0.6-1.0) Estimated GFR (Cockcroft-Gault) 64.9 Glucose Level 262 mg/dL (70-99) H Calcium Level 9.1 mg/dL (8.5-10.1) Magnesium Level 2.4 mg/dL (1.8-2.4) Total Bilirubin 0.2 mg/dL (0.2-1.0) Direct Bilirubin 0.1 mg/dL (0.0-0.2) Aspartate Amino Transferase (AST) 35 U/L (15-37) Alanine Aminotransferase (ALT) 28 U/L (14-59) Alkaline Phosphatase 97 U/L (46-116) Total Protein 7.7 g/dL (6.4-8.2) Albumin 2.8 g/dL (3.4-5.0) L Acetaminophen Level < 2 mcg/ml (10-30) L Acetaminophen Last Dose Date Acetaminophen Last Dose Time Laboratory Tests 06/27/19 20:52 Laboratory Tests 06/27/19 20:52 EKG EKG [] Radiology/Procedures Radiology/Procedures [] Course & Med Decision Making Course & Med Decision Making Pertinent Labs and Imaging studies reviewed. (See chart for details) [] Dragon Disclaimer Dragon Disclaimer This electronic medical record was generated, in whole or in part, using a voice recognition dictation system. Departure Departure Impression: Primary Impression: Aspiration pneumonia Disposition: ADMITTED INPATIENT Admitting Physician: DELIA (Dr. Arnett) Condition: GUARDED Referrals: CATHERINE MOSCOSO MD (PCP) Problem Qualifiers Primary Impression: Aspiration pneumonia Aspiration pneumonia type: unspecified Laterality: bilateral Lung location: unspecified part of lung Qualified Codes: J69.0 - Pneumonitis due to inhalation of food and vomit ANA CUADRA Jr. DO Jun 27, 2019 20:13
[2019-06-27] MEDS ORDERED: IV NORMAL SALINE 1000ML BAG 1,000 ML IV ONE (20:15)
[2019-06-27] MEDS ORDERED: IPRATRPIUM/ALBUTEROL 0.5/2.5MG 3 ML NEBU. NEB ONE (20:15)
[2019-06-27 21:02] LABS: BASO # 0.1 x10^3/uL (0.0-0.2); BASO % 0 % (0-3); EOS % 0 % (0-3); HEMOGLOBIN 10.1 g/dL (12.0-15.5); LYMPH # 0.5 x10^3/uL (1.0-4.8); LYMPH % 3 % (24-48); MEAN CORPUSCULAR HEMOGLOBIN 27 pg (25-35); MEAN CORPUSCULAR HGB CONC 32 g/dL (31-37); MEAN CORPUSCULAR VOLUME 85 fL (79-100); MONO # 0.6 x10^3/uL (0.0-1.1); MONO % 3 % (0-9); NEUT # 16.3 x10^3/uL (1.8-7.7); NEUT % 93 % (31-73); PLATELET COUNT 335 x10^3/uL (140-400); RED BLOOD COUNT 3.77 x10^6/uL (3.50-5.40); RED CELL DISTRIBUTION WIDTH 16.2 % (11.5-14.5); WHITE BLOOD COUNT 17.4 x10^3/uL (4.0-11.0)
[2019-06-27 21:11] LABS: CALCIUM 9.1 mg/dL (8.5-10.1); GFR 64.9; POTASSIUM 4.1 mmol/L (3.5-5.1); PROTHROMBIN TIME PATIENT 13.7 SEC (11.7-14.0)
[2019-06-27 21:17] LABS: ALBUMIN 2.8 g/dL (3.4-5.0); DIRECT BILIRUBIN 0.1 mg/dL (0.0-0.2); MAGNESIUM 2.4 mg/dL (1.8-2.4); TOTAL BILIRUBIN 0.2 mg/dL (0.2-1.0); TOTAL PROTEIN 7.7 g/dL (6.4-8.2)
[2019-06-27 21:18] LABS: ACETAMIN < 2 mcg/ml (10-30)
[2019-06-27 21:20] LABS: BILIRUBIN,URINE NEGATIVE (NEG); CLARITY,URINE CLEAR; COLOR,URINE YELLOW; NITRITE,URINE NEGATIVE (NEG); PROTEIN,URINE NEGATIVE (NEG-TRACE); UROBILINOGEN,URINE 0.2 mg/dL (0.2 mg/dL)
[2019-06-27 21:24] LABS: BACTERIA,URINE 0 /HPF (0-FEW); WBC,URINE OCC /HPF (0-4)
[2019-06-27 21:25] LABS: HYALINE CASTS, URINE MODERATE /HPF; SQUAMOUS EPITHELIAL CELL,UR OCC /LPF
[2019-06-27 21:28] LABS: % BANDS 5 % (0-9); % LYMPHS 4 % (24-48); % MONOS 3 % (0-10); % SEGS 88 % (35-66); PLT ESTIMATE ADEQUATE (ADEQUATE)
[2019-06-27] MEDS ORDERED: PIPERACILLIN/TAZOBACTAM 3.375 GM in IV NORMAL SALINE 50ML 50 ML IV ONE (21:30)
[2019-06-27] MEDS ORDERED: VANCOMYCIN 1GM IVPB FOR OMNI 250 ML IV ONE (21:30)
[2019-06-27] MEDS ORDERED: VANCOMYCIN 1.25 GM in IV NORMAL SALINE 250ML 250 ML IV ONE (21:45)
--- NOTE | 2019-06-27 21:58 | RAD ---
CT abdomen and pelvis without contrast PQRS statement: CT scans at this facility use dose reduction including either automated exposure control, iterative reconstructions, and /or weight based radiation dosing via mA and kV modification when appropriate to reduce radiation dose to as low as reasonably achievable. HISTORY: Vomiting. COMPARISON: CT abdomen and pelvis February 22, 2019. TECHNIQUE: Helical multiplanar reconstructed noncontrast imaging abdomen and pelvis was acquired. Abdomen findings: Subpleural linear densities and dependent opacities of the lower lobe similar to prior imaging in February 2019. Chronic interstitial disease lung bases stable. Cardiomegaly stable. Fibrosis or collapse of the medial basilar left lower lobe although a component could represent loculated pleural fluid, stable. Common bile duct diameter upper limits of normal measuring 8 mm although similar to the prior study. Liver, gallbladder, pancreas, spleen, kidneys and adrenal glands are unremarkable. Surgical changes about the gastroesophageal junction. The distal appendix diameter is upper limits of normal measuring 9 mm lateral the cecum however there is no inflammatory changes no surrounding edema evident. There is a moderate volume of stool within the colon. No evidence of bowel obstruction or inflammatory change of the small bowel. Rectosigmoid colonic wall thickening is present could be muscular hypertrophy or mild inflammatory thickening from distal colitis. Extensive calcified plaque of the abdominal aorta and iliac arteries. No abdominal free fluid. Bones unremarkable. Pelvis findings: Rectosigmoid moderate volume of stool and wall thickening. Numerous calcified uterine fibroids. Ovaries obscured by surrounding bowel loops likely due to ovarian atrophy. Bladder collapsed with a catheter in. Left gluteus intramuscular lipoma again noted. IMPRESSION: 1. Wall thickening of the rectosigmoid colon could be muscular hypertrophy from poor luminal distention versus mild inflammatory thickening from distal colitis. 2. No evidence of appendicitis. 3. Calcified uterine fibroids. 4. Chronic interstitial lung disease at the lung bases along with chronic opacities which could be due to confluent areas of fibrosis versus chronic/recurrent infection. Electronically signed by: Clarke Hector MD (06/27/2019 9:55 PM) [facility]
[2019-06-27] MEDS ORDERED: MORPHINE SULFATE 2 MG/ML VIAL. IV PRN (22:30)
[2019-06-27] MEDS ORDERED: ONDANSETRON PF 4 MG/2 ML VIAL. IV PRN (22:30)
--- NOTE | 2019-06-27 22:57 | RAD ---
AP chest x-ray HISTORY: Dyspnea. COMPARISON: CT chest February 21, 2019. FINDINGS: Right jugular portacatheter tip atrial caval junction. Tracheostomy. Heart size stable. No pneumothorax. No pleural effusions evident. Diffuse pulmonary coarse interstitial markings are present likely changes of chronic interstitial disease. Retrocardiac left lower lobe opacity stable likely chronic atelectasis or scarring. This is similar to x-rays back to January 2019. Bones unremarkable. IMPRESSION: Changes of chronic lung disease as described above. Stable exam. Electronically signed by: Clarke Hector MD (06/27/2019 10:54 PM) [facility]
[2019-06-27 23:21] LABS: BASE EXCESS COOX 5 mmol/L (-3-3); HCO3 COOX 32 mmol/L (21-28); METHEMOGLOBIN 0.6 % (0.0-1.9); OXYHEMOGLOBIN 98.5 %; PCO2 COOX 55 mmHg (35-46); SAT O2 COOX 99 % (92-99)
[2019-06-27 23:23] LABS: PO2 COOX 519 mmHg (65-108)
[2019-06-28] VITALS (26 sets, daily range): BP systolic 78–166; BP diastolic 50–80
[2019-06-28] MEDS ORDERED: NOREPINEPHRIN 8MG/250ML PREMIX 250 ML IV PRN (00:15)
[2019-06-28] MEDS ORDERED: PIP/TAZO PER PHARMACY MC PRN (00:15)
[2019-06-28] MEDS ORDERED: GABA300C18 PO (00:49)
[2019-06-28] MEDS ORDERED: LORA0.5T96 PO (00:50)
[2019-06-28] MEDS: VANCOMYCIN PER PHARMACY MC PRN ×3 (03:12→14:12)
--- NOTE | 2019-06-28 03:12 | NUR ---
Pharmacy Vancomycin Dosing Note S:Consulted to monitor and dose vancomycin started 06/27/19. O:BERNARDO DE LEON is a 79 year old F with Pneumonia ASPIRATION PNEUMONIA . Height: 5 feet, 4 inches Weight: 49.164589 kg [place] Body Weight: 54.70 Adjusted Body Weight: 52.42 Dosing Weight: Actual Other Antibiotics: ZOSYN 3.375 Q6H LABS: Last BUN: 18 Last Creatinine: 1 Creatinine Clearance: 36 mL/min Last WBC: 17.4 Last Procalcitonin: Tmax (past 24 hours): Microbiology: I/O: Drug Levels: Last level: on at Last dose given 06/27/19 at 2345 Vancomycin Dosing: Loading Dose: 1250 mg x1 Dosing Weight: Actual Target Trough: 15-20 A: Based on: WT AND CRCL P: 1. Begin Vancomycin 750 mg IV q24h 2. Follow up Trough level on 06/29/19 at 2330 3. Pharmacy will continue to monitor, follow and adjust therapy as needed. SAMANTHA SEBASTIAN RPH, 06/28/19311 Signed: 06/28/19 at 311 by SAMANTHA SEBASTIAN RPH PHA
--- NOTE | 2019-06-28 05:48 | EKG ---
[facility] [address] [place] [address] Test Date: 2019-06-27 Test Time: 21:25:18 Pat Name: BERNARDO DE LEON Department: Room: [facility] 1 Gender: F Processing Rep: : 1940 Requested By: ANA CUADRA Order Number: [id number] Reading MD: Glen Dyson MD Measurements Intervals [place] Rate: 116 P: 44 RI: 190 QRS: 17 QRSD: 94 T: 72 QT: 316 QTc: 445 Interpretive Statements SINUS TACHYCARDIA Electronically Signed On 07-04-2019 9:43:57 CDT by Glen Dyson MD
[2019-06-28] MEDS: PIPERACILLIN/TAZOBACTAM 3.375 GM in IV NORMAL SALINE 50ML 50 ML IV SCH ×3 (06:33→19:12)
[2019-06-28 06:39] LABS: CALCIUM 8.8 mg/dL (8.5-10.1); CREATININE 0.8 mg/dL (0.6-1.0); GFR 83.9; POTASSIUM 4.2 mmol/L (3.5-5.1)
[2019-06-28 06:49] LABS: BASO # 0.1 x10^3/uL (0.0-0.2); BASO % 0 % (0-3); EOS % 0 % (0-3); HEMATOCRIT 29.7 % (36.0-47.0); HEMOGLOBIN 9.5 g/dL (12.0-15.5); LYMPH # 1.8 x10^3/uL (1.0-4.8); LYMPH % 13 % (24-48); MEAN CORPUSCULAR HEMOGLOBIN 27 pg (25-35); MEAN CORPUSCULAR HGB CONC 32 g/dL (31-37); MEAN CORPUSCULAR VOLUME 84 fL (79-100); MONO # 0.6 x10^3/uL (0.0-1.1); MONO % 4 % (0-9); NEUT % 82 % (31-73); PLATELET COUNT 332 x10^3/uL (140-400); RED BLOOD COUNT 3.54 x10^6/uL (3.50-5.40); RED CELL DISTRIBUTION WIDTH 16.2 % (11.5-14.5); WHITE BLOOD COUNT 13.4 x10^3/uL (4.0-11.0)
[2019-06-28] MEDS: IPRATRPIUM/ALBUTEROL 0.5/2.5MG 3 ML NEBU. NEB SCH ×2 (08:38→12:00)
[2019-06-28 08:51] LABS: BASE EXCESS ABG 1 mmol/L (-3-3); HCO3 ABG 25 mmol/L (21-28); PCO2 ABG 40 mmHg (35-46); PO2 ABG 169 mmHg (65-108); SAT O2 ABG 99 % (92-99)
[2019-06-28 08:54] LABS: FIO2 ABG 35
[2019-06-28] MEDS: IV NORMAL SALINE 1000ML BAG 1,000 ML IV SCH ×2 (09:14→19:12)
--- NOTE | 2019-06-28 09:21 | PDOC ---
PULMONARY PROGRESS NOTES Vitals Vital Signs Date Time Temp Pulse Resp B/P (MAP) Pulse Ox O2 Delivery O2 Flow Rate FiO2 06/28/19 08:38 100 Ventilator 06/28/19 06:00 82 15 121/63 (82) 06/28/19 04:00 98.4 98.4 06/27/19 20:30 10.0 General: Alert, No acute distress Lungs: Crackles Cardiovascular: S1, S2 Abdomen: Soft, Non-tender Extremities: No Edema Labs Laboratory Tests Test 06/27/19 20:52 06/27/19 21:10 06/27/19 23:23 06/28/19 06:00 White Blood Count 17.4 x10^3/uL (4.0-11.0) 13.4 x10^3/uL (4.0-11.0) Red Blood Count 3.77 x10^6/uL (3.50-5.40) 3.54 x10^6/uL (3.50-5.40) Hemoglobin 10.1 g/dL (12.0-15.5) 9.5 g/dL (12.0-15.5) Hematocrit 32.0 % (36.0-47.0) 29.7 % (36.0-47.0) Mean Corpuscular Volume 85 fL (79-100) 84 fL (79-100) Mean Corpuscular Hemoglobin 27 pg (25-35) 27 pg (25-35) Mean Corpuscular Hemoglobin Concent 32 g/dL (31-37) 32 g/dL (31-37) Red Cell Distribution Width 16.2 % (11.5-14.5) 16.2 % (11.5-14.5) Platelet Count 335 x10^3/uL (140-400) 332 x10^3/uL (140-400) Neutrophils (%) (Auto) 93 % (31-73) 82 % (31-73) Lymphocytes (%) (Auto) 3 % (24-48) 13 % (24-48) Monocytes (%) (Auto) 3 % (0-9) 4 % (0-9) Eosinophils (%) (Auto) 0 % (0-3) 0 % (0-3) Basophils (%) (Auto) 0 % (0-3) 0 % (0-3) Neutrophils # (Auto) 16.3 x10^3/uL (1.8-7.7) 11.0 x10^3/uL (1.8-7.7) Lymphocytes # (Auto) 0.5 x10^3/uL (1.0-4.8) 1.8 x10^3/uL (1.0-4.8) Monocytes # (Auto) 0.6 x10^3/uL (0.0-1.1) 0.6 x10^3/uL (0.0-1.1) Eosinophils # (Auto) 0.0 x10^3/uL (0.0-0.7) 0.0 x10^3/uL (0.0-0.7) Basophils # (Auto) 0.1 x10^3/uL (0.0-0.2) 0.1 x10^3/uL (0.0-0.2) Segmented Neutrophils % 88 % (35-66) Band Neutrophils % 5 % (0-9) Lymphocytes % 4 % (24-48) Monocytes % 3 % (0-10) Platelet Estimate Adequate (ADEQUATE) Prothrombin Time 13.7 SEC (11.7-14.0) Prothromb Time International Ratio 1.1 (0.8-1.1) Sodium Level 136 mmol/L (136-145) 140 mmol/L (136-145) Potassium Level 4.1 mmol/L (3.5-5.1) 4.2 mmol/L (3.5-5.1) Chloride Level 99 mmol/L (98-107) 105 mmol/L (98-107) Carbon Dioxide Level 33 mmol/L (21-32) 32 mmol/L (21-32) Anion Gap 4 (6-14) 3 (6-14) Blood Urea Nitrogen 18 mg/dL (7-20) 12 mg/dL (7-20) Creatinine 1.0 mg/dL (0.6-1.0) 0.8 mg/dL (0.6-1.0) Estimated GFR (Cockcroft-Gault) 64.9 83.9 Glucose Level 262 mg/dL (70-99) 87 mg/dL (70-99) Lactic Acid Level 1.7 mmol/L (0.4-2.0) Calcium Level 9.1 mg/dL (8.5-10.1) 8.8 mg/dL (8.5-10.1) Magnesium Level 2.4 mg/dL (1.8-2.4) Total Bilirubin 0.2 mg/dL (0.2-1.0) Direct Bilirubin 0.1 mg/dL (0.0-0.2) Aspartate Amino Transf (AST/SGOT) 35 U/L (15-37) Alanine Aminotransferase (ALT/SGPT) 28 U/L (14-59) Alkaline Phosphatase 97 U/L (46-116) Total Protein 7.7 g/dL (6.4-8.2) Albumin 2.8 g/dL (3.4-5.0) Acetaminophen Level < 2 mcg/ml (10-30) Acetaminophen Last Dose Date Acetaminophen Last Dose Time Urine Collection Type Unknown Urine Color Yellow Urine Clarity Clear Urine pH 7.0 Urine Specific [place] 1.015 Urine Protein Negative mg/dL (NEG-TRACE) Urine Glucose (UA) 500 mg/dL (NEG) Urine Ketones (Stick) Negative mg/dL (NEG) Urine Blood Negative (NEG) Urine Nitrite Negative (NEG) Urine Bilirubin Negative (NEG) Urine Urobilinogen Dipstick 0.2 mg/dL (0.2 mg/dL) Urine Leukocyte Esterase Negative (NEG) Urine RBC 3-5 /HPF (0-2) Urine WBC Occ /HPF (0-4) Urine Squamous Epithelial Cells Occ /LPF Urine Bacteria 0 /HPF (0-FEW) Urine Hyaline Casts Moderate /HPF O2 Saturation 99 % (92-99) Arterial Blood pH 7.38 (7.35-7.45) Arterial Blood pCO2 at Patient Temp 55 mmHg (35-46) Arterial Blood pO2 at Patient Temp 519 mmHg (65-108) Arterial Blood HCO3 32 mmol/L (21-28) Arterial Blood Base Excess 5 mmol/L (-3-3) Oxyhemoglobin 98.5 % Methemoglobin 0.6 % (0.0-1.9) Carbon Monoxide, Quantitative 0.3 % (0.0-1.9) FiO2 100 Test 06/28/19 08:00 O2 Saturation 99 % (92-99) Arterial Blood pH 7.41 (7.35-7.45) Arterial Blood pCO2 at Patient Temp 40 mmHg (35-46) Arterial Blood pO2 at Patient Temp 169 mmHg (65-108) Arterial Blood HCO3 25 mmol/L (21-28) Arterial Blood Base Excess 1 mmol/L (-3-3) FiO2 35 Laboratory Tests Test 06/27/19 20:52 06/27/19 21:10 06/27/19 23:23 06/28/19 06:00 White Blood Count 17.4 x10^3/uL (4.0-11.0) 13.4 x10^3/uL (4.0-11.0) Red Blood Count 3.77 x10^6/uL (3.50-5.40) 3.54 x10^6/uL (3.50-5.40) Hemoglobin 10.1 g/dL (12.0-15.5) 9.5 g/dL (12.0-15.5) Hematocrit 32.0 % (36.0-47.0) 29.7 % (36.0-47.0) Mean Corpuscular Volume 85 fL (79-100) 84 fL (79-100) Mean Corpuscular Hemoglobin 27 pg (25-35) 27 pg (25-35) Mean Corpuscular Hemoglobin Concent 32 g/dL (31-37) 32 g/dL (31-37) Red Cell Distribution Width 16.2 % (11.5-14.5) 16.2 % (11.5-14.5) Platelet Count 335 x10^3/uL (140-400) 332 x10^3/uL (140-400) Neutrophils (%) (Auto) 93 % (31-73) 82 % (31-73) Lymphocytes (%) (Auto) 3 % (24-48) 13 % (24-48) Monocytes (%) (Auto) 3 % (0-9) 4 % (0-9) Eosinophils (%) (Auto) 0 % (0-3) 0 % (0-3) Basophils (%) (Auto) 0 % (0-3) 0 % (0-3) Neutrophils # (Auto) 16.3 x10^3/uL (1.8-7.7) 11.0 x10^3/uL (1.8-7.7) Lymphocytes # (Auto) 0.5 x10^3/uL (1.0-4.8) 1.8 x10^3/uL (1.0-4.8) Monocytes # (Auto) 0.6 x10^3/uL (0.0-1.1) 0.6 x10^3/uL (0.0-1.1) Eosinophils # (Auto) 0.0 x10^3/uL (0.0-0.7) 0.0 x10^3/uL (0.0-0.7) Basophils # (Auto) 0.1 x10^3/uL (0.0-0.2) 0.1 x10^3/uL (0.0-0.2) Segmented Neutrophils % 88 % (35-66) Band Neutrophils % 5 % (0-9) Lymphocytes % 4 % (24-48) Monocytes % 3 % (0-10) Platelet Estimate Adequate (ADEQUATE) Prothrombin Time 13.7 SEC (11.7-14.0) Prothromb Time International Ratio 1.1 (0.8-1.1) Sodium Level 136 mmol/L (136-145) 140 mmol/L (136-145) Potassium Level 4.1 mmol/L (3.5-5.1) 4.2 mmol/L (3.5-5.1) Chloride Level 99 mmol/L (98-107) 105 mmol/L (98-107) Carbon Dioxide Level 33 mmol/L (21-32) 32 mmol/L (21-32) Anion Gap 4 (6-14) 3 (6-14) Blood Urea Nitrogen 18 mg/dL (7-20) 12 mg/dL (7-20) Creatinine 1.0 mg/dL (0.6-1.0) 0.8 mg/dL (0.6-1.0) Estimated GFR (Cockcroft-Gault) 64.9 83.9 Glucose Level 262 mg/dL (70-99) 87 mg/dL (70-99) Lactic Acid Level 1.7 mmol/L (0.4-2.0) Calcium Level 9.1 mg/dL (8.5-10.1) 8.8 mg/dL (8.5-10.1) Magnesium Level 2.4 mg/dL (1.8-2.4) Total Bilirubin 0.2 mg/dL (0.2-1.0) Direct Bilirubin 0.1 mg/dL (0.0-0.2) Aspartate Amino Transf (AST/SGOT) 35 U/L (15-37) Alanine Aminotransferase (ALT/SGPT) 28 U/L (14-59) Alkaline Phosphatase 97 U/L (46-116) Total Protein 7.7 g/dL (6.4-8.2) Albumin 2.8 g/dL (3.4-5.0) Acetaminophen Level < 2 mcg/ml (10-30) Acetaminophen Last Dose Date Acetaminophen Last Dose Time Urine Collection Type Unknown Urine Color Yellow Urine Clarity Clear Urine pH 7.0 Urine Specific [place] 1.015 Urine Protein Negative mg/dL (NEG-TRACE) Urine Glucose (UA) 500 mg/dL (NEG) Urine Ketones (Stick) Negative mg/dL (NEG) Urine Blood Negative (NEG) Urine Nitrite Negative (NEG) Urine Bilirubin Negative (NEG) Urine Urobilinogen Dipstick 0.2 mg/dL (0.2 mg/dL) Urine Leukocyte Esterase Negative (NEG) Urine RBC 3-5 /HPF (0-2) Urine WBC Occ /HPF (0-4) Urine Squamous Epithelial Cells Occ /LPF Urine Bacteria 0 /HPF (0-FEW) Urine Hyaline Casts Moderate /HPF O2 Saturation 99 % (92-99) Arterial Blood pH 7.38 (7.35-7.45) Arterial Blood pCO2 at Patient Temp 55 mmHg (35-46) Arterial Blood pO2 at Patient Temp 519 mmHg (65-108) Arterial Blood HCO3 32 mmol/L (21-28) Arterial Blood Base Excess 5 mmol/L (-3-3) Oxyhemoglobin 98.5 % Methemoglobin 0.6 % (0.0-1.9) Carbon Monoxide, Quantitative 0.3 % (0.0-1.9) FiO2 100 Test 06/28/19 08:00 O2 Saturation 99 % (92-99) Arterial Blood pH 7.41 (7.35-7.45) Arterial Blood pCO2 at Patient Temp 40 mmHg (35-46) Arterial Blood pO2 at Patient Temp 169 mmHg (65-108) Arterial Blood HCO3 25 mmol/L (21-28) Arterial Blood Base Excess 1 mmol/L (-3-3) FiO2 35 Medications Active Scripts Medications Dose Route/Sig Max Daily Dose Days Date Category Ativan (Lorazepam) 0.5 Mg Tablet 0.5 Mg PO DAILY 10/15/19 Reported Gabapentin (Gabapentin) 300 Mg Capsule 300 Mg PO HS 06/28/19 Reported Diovan (Valsartan) 160 Mg Tablet 160 Mg PO DAILY 05/23/19 Reported Ferrous Sulfate 325 Mg Tablet 1 Tab PO DAILY 01/20/19 Rx Percocet 7.5-325 Mg Tablet (Oxycodone/Acetaminophen) 1 Each Tablet 1 Tab PO QID PRN MDD 1 12/09/18 Rx FENTANYL 50mcg/hr (Fentanyl) 1 Each Patch.td72 1 Patch TP Q3DAYS MDD 1 12/09/18 Rx Albuterol Sulfate Neb Soln (Albuterol Sulfate) 0.63 Mg/3 Ml Vial.neb 1 Vial NEB QID 12/02/18 Reported Gabapentin (Gabapentin) 300 Mg Capsule 300 Mg PO BID PRN 10/19/18 Reported Amlodipine Besylate 5 Mg Tablet 5 Mg PO DAILY 10/19/18 Reported Culturelle (Lactobacillus Rhamnosus Gg) 1 Each Cap.sprink 1 Cap PO BID 30 07/07/17 Rx Pantoprazole Sodium (Pantoprazole Sodium) 40 Mg Tablet.dr 40 Mg PEG BID 03/11/17 Reported Donepezil Hcl 5 Mg Tablet 5 Mg PEG BID 03/11/17 Reported Reglan (Metoclopramide Hcl) 10 Mg Tablet 5 Mg PO QIDACHS 03/11/17 Reported Cyproheptadine Hcl 2 Mg/5 Ml Syrup 10 Ml PEG TID 03/11/17 Reported Ondansetron Odt (Ondansetron) 4 Mg Tab.rapdis 4 Mg PEG QIDPRN PRN 06/19/14 Reported Impression . full note dictated a/c resp failure pneumonia see orders will wean as tolerated ANURAG LOO MD Jun 28, 2019 09:21
--- NOTE | 2019-06-28 09:32 | NUR ---
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 Pt to be in contact precautions.
--- NOTE | 2019-06-28 09:38 | CONS ---
DATE OF CONSULTATION: 06/28/2019 ATTENDING PHYSICIAN: Dr. Arnett. REASON FOR CONSULTATION: The patient is seen in pulmonary consultation at the request of Dr. Arnett for acute on chronic respiratory failure, requiring mechanical ventilation. HISTORY OF PRESENT ILLNESS: The patient is a 79-year-old with multiple comorbidities. She has a history of lung cancer, status post chronic trach in place. At home, she is taken care of by the family. She is on trach shield. The patient was found unresponsive by family members. O2 saturation on finger found saturations in the 30s. EMS was summoned. Upon EMS arrival, the patient was unresponsive. They gave her 1 mg of Narcan and became responsive. They placed her on oxygen supplementation and transferred to the Emergency Department. She was placed on mechanical ventilation. She is currently in the Intensive Care Unit. She is awake, alert, following commands. She does not appear to be in any respiratory distress. Her white count was elevated at 17,000. Arterial blood gas revealed a pH of 7.38, PaCO2 of 55, PaO2 of 519 last evening in the Emergency Room. This morning, she had a pO2 of 169 with a pH of 7.41, and PaCO2 of 40. She underwent imaging studies. Chest x-ray revealed chronic changes, no new infiltrates. She did undergo CT abdomen and pelvis revealing wall thickening of the rectosigmoid colon. No evidence of appendicitis. There were chronic interstitial lung disease changes in the bases of the lungs, possibly compatible with some infection. PAST MEDICAL HISTORY: Remarkable for: 1. Lung cancer status post chronic tracheotomy, recurrent pseudomonas infection. 2. Hypertension. 3. COPD. 4. Previous MRSA pneumonia. PAST SURGICAL HISTORY: Status post trach and PEG. ALLERGIES: ASPIRIN. REVIEW OF SYSTEMS: Unobtainable secondary to the patient's condition. CURRENT MEDICATIONS: List was reviewed. She is currently receiving Zosyn and vancomycin. PHYSICAL EXAMINATION: GENERAL: The patient was in no respiratory distress. VITAL SIGNS: Stable, on assist control ventilation. HEENT: Eyes, the sclerae were nonicteric. NECK: Tracheostomy tube in place. CHEST: Full expansion. LUNGS: Bilateral rhonchi with no wheezes. CARDIOVASCULAR: Regular rate and rhythm with S1 and S2, no S3. ABDOMEN: Soft, nontender, nondistended. EXTREMITIES: No clubbing, cyanosis or edema. LABORATORY DATA: White count was 17,000. INR was 1.1. Electrolytes were noted. UA was noted. Toxicology screen revealed acetaminophen level less than 2. IMPRESSION: 1. Acute on chronic respiratory failure. 2. Bilateral pulmonary infiltrates, best seen on CT abdomen revealing evidence of consolidation. 3. Suspect pneumonia, gram-positive/gram-negative. 4. Lung cancer, status post tracheotomy. 5. Severe protein malnutrition, present upon admission. 6. History of methicillin-resistant Staphylococcus aureus and Pseudomonas infection and pneumonia in the past. 7. Status post PEG. 8. Leukocytosis. PLAN: 1. We will continue current support with assist control ventilation. 2. IV antibiotics. 3. Nebulized treatments. 4. DVT/GI prophylaxis. 5. Consult dietitian for protein malnutrition. I do appreciate the privilege in sharing the patient's care. ANURAG LOO MD DR: MAGGIE/sena JOB#: [id number] / [id number]
--- NOTE | 2019-06-28 10:19 | NUR ---
SS following for discharge planning. SS reviewed pt chart. Pt is from home with family and currently has all needed trach and oxygen equipment at home. Pt was previously on services from past admissions with [facility], ; fax [phone], and [facility], ; fax [phone]. SS and Gwen MCCARTY, have discussed LTAC placement and LTC placement in the past with pt and DPOA and pt and DPOA have declined in past admissions. Pt is high risk readmission risk if returning to home. SS will continue to follow for discharge planning.
[2019-06-28] MEDS ORDERED: ALBUTEROL SULFATE 2.5 MG/3 ML NEBU. NEB PRN (12:00)
--- NOTE | 2019-06-28 12:13 | HP ---
ADMIT DATE: 06/28/2019 CHIEF COMPLAINT: Overdose. HISTORY OF PRESENT ILLNESS: The patient is a pleasant 79-year-old female, well known to my service. She has lung cancer and has a tracheostomy. I have asked her to consider going to a shelter because she is quite ill, but for the past couple years, she has consistently refused to go to a shelter. Once again, she presents with mental status change. She has taken too much of her meds (narcotics). I discussed the case with ER physician. She also appears to have pneumonia. We are going to admit the patient to the ICU. PAST MEDICAL HISTORY: Lung cancer, COPD, tracheostomy, dementia, hypertension, MRSA, pneumonia, cataracts, PEG placement, Port-A-Cath. ALLERGIES: ASPIRIN. FAMILY HISTORY: Coronary disease. SOCIAL HISTORY: She quit smoking. No drinking or drugs. Lives at home with her family. MEDICATIONS: Reviewed, please refer to the MRAD. REVIEW OF SYSTEMS: Unable to obtain. PHYSICAL EXAMINATION: VITALS: Within normal limits and are stable. GENERAL: No apparent distress. Alert and oriented. She is quite cachectic. HEENT: Head is normocephalic, atraumatic, pupils were equally round and reactive to light and accommodation. She has a clean trach. NECK: Supple, no JVD, no thyromegaly was noted. LUNGS: Clear to auscultation in all lung szymanski without rhonchi or wheezing. HEART: RRR, S1, S2 present. Peripheral pulses intact, no obvious murmurs were noted. ABDOMEN: Soft, nontender. Positive bowel sounds no organomegaly, normal bowel sounds. She has a PEG in place. EXTREMITIES: Without any cyanosis, clubbing, or edema. Pedal pulses intact, Homans sign is negative. NEUROLOGIC: She is very weak and unable to talk at this time. PSYCHIATRIC: Normal affect, normal mood. Stable. SKIN: No ulcerations or rashes, good skin turgor, no jaundice. VASCULAR: Good capillary refill, neurovascular bundle appears to be intact. Chest x-ray shows pneumonia. White count 17. ASSESSMENT AND PLAN: Overdose of narcotics and pneumonia. The patient has been admitted. Consult Pulmonary. IV antibiotics, DuoNeb, oxygen, trach care, home meds, DVT prophylaxis, full code. PROGNOSIS: Guarded. NIAL Rayne WILEY DO DR: Willie JOB#: [id number] / [id number]
[2019-06-28] MEDS: ALBUTEROL SULFATE 2.5 MG/3 ML NEBU. NEB SCH ×3 (12:20→19:51)
--- NOTE | 2019-06-28 14:12 | NUR ---
Pharmacy Vancomycin Dosing Note S: Consulted to monitor and dose vancomycin started 06/27/19. O: BERNARDO DE LEON is a 79 year old F with Pneumonia, ASPIRATION PNEUMONIA . Other Antibiotics: ZOSYN 3.375 Q6H LABS: Last BUN: 12 Last Creatinine: 0.8 Creatinine Clearance: 36 mL/min Last WBC: 13.4 Last Procalcitonin: Tmax (past 24 hours): 98.8 Microbiology: I/O: 993/775 Drug Levels: Last level: on at Last dose given 06/27/19 at 2345 Vancomycin Dosing: Dosing Weight: Actual Target Trough: 15-20 A: Based on: VANCO DOSE LAST ADMISSION P: 1. Begin Vancomycin 1000 mg IV q12h 2. Follow up Trough level on 06/29/19 at 1430 3. Pharmacy will continue to monitor, follow and adjust therapy as needed. JOSESITO ARCE, [facility], 06/28/19 [id number]
[2019-06-28] MEDS: ENOXAPARIN 40 MG/0.4 ML SYRINGE. SQ SCH (15:43)
[2019-06-28] MEDS: VANCOMYCIN 1 GM in IV NORMAL SALINE 250ML 250 ML IV SCH (15:43)
[2019-06-29] VITALS (24 sets, daily range): BP systolic 124–176; BP diastolic 64–96
[2019-06-29] MEDS ORDERED: VANCOMYCIN 750 MG in IV NORMAL SALINE 250ML 250 ML IV SCH ×2
[2019-06-29] MEDS: PIPERACILLIN/TAZOBACTAM 3.375 GM in IV NORMAL SALINE 50ML 50 ML IV SCH ×5 (00:30→23:52)
[2019-06-29] MEDS: MORPHINE SULFATE 2 MG/ML VIAL. IV PRN ×4 (00:30→11:50)
--- NOTE | 2019-06-29 00:36 | NUR ---
Patient complaining of pain 04/23, no pain medication on board. Previously had Morphine 2 mg Q2H PRN, but was an ED bridge order. Medication seemed to work well for patient. Dr. Pedraza paged at [phone], called back at [phone]. Updated on situation, orders received to continue Morphine 2 mg Q2H PRN for pain.
--- NOTE | 2019-06-29 02:59 | NUR ---
Patient states she is not having pain since receiving pain medication, but temperature is 100.1 and HR is in 120s. BP elevated into 170s. Dr. Keila sharp, updated on patient condition, orders received to give PRN Tylenol for temperature and Metoprolol 2.5 mg Q4H PRN.
[2019-06-29] MEDS ORDERED: ACETAMINOPHEN 650 MG SUPP.RECT. RC PRN (03:00)
[2019-06-29] MEDS: VANCOMYCIN 1 GM in IV NORMAL SALINE 250ML 250 ML IV SCH ×2 (03:11→15:06)
[2019-06-29] MEDS: IV NORMAL SALINE 1000ML BAG 1,000 ML IV SCH ×3 (03:11→23:45)
[2019-06-29] MEDS: METOPROLOL TARTRATE 5 MG/5 ML VIAL. IVP PRN ×2 (03:12→13:18)
[2019-06-29 05:55] LABS: BASO # 0.1 x10^3/uL (0.0-0.2); BASO % 1 % (0-3); EOS # 0.1 x10^3/uL (0.0-0.7); EOS % 0 % (0-3); HEMATOCRIT 30.8 % (36.0-47.0); HEMOGLOBIN 9.9 g/dL (12.0-15.5); LYMPH # 1.6 x10^3/uL (1.0-4.8); LYMPH % 13 % (24-48); MEAN CORPUSCULAR HEMOGLOBIN 27 pg (25-35); MEAN CORPUSCULAR HGB CONC 32 g/dL (31-37); MEAN CORPUSCULAR VOLUME 84 fL (79-100); MONO # 0.7 x10^3/uL (0.0-1.1); MONO % 6 % (0-9); NEUT # 9.7 x10^3/uL (1.8-7.7); NEUT % 80 % (31-73); PLATELET COUNT 303 x10^3/uL (140-400); RED BLOOD COUNT 3.65 x10^6/uL (3.50-5.40); RED CELL DISTRIBUTION WIDTH 16.1 % (11.5-14.5); WHITE BLOOD COUNT 12.1 x10^3/uL (4.0-11.0)
[2019-06-29 06:12] LABS: CALCIUM 9.1 mg/dL (8.5-10.1); CREATININE 0.9 mg/dL (0.6-1.0); GFR 73.3; POTASSIUM 3.7 mmol/L (3.5-5.1)
[2019-06-29] MEDS: ALBUTEROL SULFATE 2.5 MG/3 ML NEBU. NEB SCH ×4 (07:45→20:11)
[2019-06-29 08:01] LABS: BASE EXCESS ABG 0 mmol/L (-3-3); HCO3 ABG 25 mmol/L (21-28); PCO2 ABG 41 mmHg (35-46); PO2 ABG 111 mmHg (65-108); SAT O2 ABG 98 % (92-99)
[2019-06-29 08:27] LABS: FIO2 ABG 35
[2019-06-29] MEDS: VANCOMYCIN PER PHARMACY MC PRN ×2 (09:28→14:40)
--- NOTE | 2019-06-29 09:46 | PDOC ---
PULMONARY PROGRESS NOTES Subjective PT AWAKE AND ALERT DOING BETTER NOW ON TS TRIAL Vitals Vital Signs Date Time Temp Pulse Resp B/P (MAP) Pulse Ox O2 Delivery O2 Flow Rate FiO2 06/29/19 09:04 22 100 Ventilator 06/29/19 08:00 99.5 107 148/70 (96) 99.5 ROS: No Nausea, No Chest Pain, No Abdominal Pain, No Increase Cough General: Alert, No acute distress Lungs: Crackles Cardiovascular: S1, S2 Abdomen: Soft, Non-tender Neuro Exam: Alert Extremities: No Edema Skin: Warm Labs Laboratory Tests Test 06/27/19 20:52 06/27/19 21:10 06/27/19 23:23 06/28/19 06:00 White Blood Count 17.4 x10^3/uL (4.0-11.0) 13.4 x10^3/uL (4.0-11.0) Red Blood Count 3.77 x10^6/uL (3.50-5.40) 3.54 x10^6/uL (3.50-5.40) Hemoglobin 10.1 g/dL (12.0-15.5) 9.5 g/dL (12.0-15.5) Hematocrit 32.0 % (36.0-47.0) 29.7 % (36.0-47.0) Mean Corpuscular Volume 85 fL (79-100) 84 fL (79-100) Mean Corpuscular Hemoglobin 27 pg (25-35) 27 pg (25-35) Mean Corpuscular Hemoglobin Concent 32 g/dL (31-37) 32 g/dL (31-37) Red Cell Distribution Width 16.2 % (11.5-14.5) 16.2 % (11.5-14.5) Platelet Count 335 x10^3/uL (140-400) 332 x10^3/uL (140-400) Neutrophils (%) (Auto) 93 % (31-73) 82 % (31-73) Lymphocytes (%) (Auto) 3 % (24-48) 13 % (24-48) Monocytes (%) (Auto) 3 % (0-9) 4 % (0-9) Eosinophils (%) (Auto) 0 % (0-3) 0 % (0-3) Basophils (%) (Auto) 0 % (0-3) 0 % (0-3) Neutrophils # (Auto) 16.3 x10^3/uL (1.8-7.7) 11.0 x10^3/uL (1.8-7.7) Lymphocytes # (Auto) 0.5 x10^3/uL (1.0-4.8) 1.8 x10^3/uL (1.0-4.8) Monocytes # (Auto) 0.6 x10^3/uL (0.0-1.1) 0.6 x10^3/uL (0.0-1.1) Eosinophils # (Auto) 0.0 x10^3/uL (0.0-0.7) 0.0 x10^3/uL (0.0-0.7) Basophils # (Auto) 0.1 x10^3/uL (0.0-0.2) 0.1 x10^3/uL (0.0-0.2) Segmented Neutrophils % 88 % (35-66) Band Neutrophils % 5 % (0-9) Lymphocytes % 4 % (24-48) Monocytes % 3 % (0-10) Platelet Estimate Adequate (ADEQUATE) Prothrombin Time 13.7 SEC (11.7-14.0) Prothromb Time International Ratio 1.1 (0.8-1.1) Sodium Level 136 mmol/L (136-145) 140 mmol/L (136-145) Potassium Level 4.1 mmol/L (3.5-5.1) 4.2 mmol/L (3.5-5.1) Chloride Level 99 mmol/L (98-107) 105 mmol/L (98-107) Carbon Dioxide Level 33 mmol/L (21-32) 32 mmol/L (21-32) Anion Gap 4 (6-14) 3 (6-14) Blood Urea Nitrogen 18 mg/dL (7-20) 12 mg/dL (7-20) Creatinine 1.0 mg/dL (0.6-1.0) 0.8 mg/dL (0.6-1.0) Estimated GFR (Cockcroft-Gault) 64.9 83.9 Glucose Level 262 mg/dL (70-99) 87 mg/dL (70-99) Lactic Acid Level 1.7 mmol/L (0.4-2.0) Calcium Level 9.1 mg/dL (8.5-10.1) 8.8 mg/dL (8.5-10.1) Magnesium Level 2.4 mg/dL (1.8-2.4) Total Bilirubin 0.2 mg/dL (0.2-1.0) Direct Bilirubin 0.1 mg/dL (0.0-0.2) Aspartate Amino Transf (AST/SGOT) 35 U/L (15-37) Alanine Aminotransferase (ALT/SGPT) 28 U/L (14-59) Alkaline Phosphatase 97 U/L (46-116) Total Protein 7.7 g/dL (6.4-8.2) Albumin 2.8 g/dL (3.4-5.0) Acetaminophen Level < 2 mcg/ml (10-30) Acetaminophen Last Dose Date Acetaminophen Last Dose Time Urine Collection Type Unknown Urine Color Yellow Urine Clarity Clear Urine pH 7.0 Urine Specific [place] 1.015 Urine Protein Negative mg/dL (NEG-TRACE) Urine Glucose (UA) 500 mg/dL (NEG) Urine Ketones (Stick) Negative mg/dL (NEG) Urine Blood Negative (NEG) Urine Nitrite Negative (NEG) Urine Bilirubin Negative (NEG) Urine Urobilinogen Dipstick 0.2 mg/dL (0.2 mg/dL) Urine Leukocyte Esterase Negative (NEG) Urine RBC 3-5 /HPF (0-2) Urine WBC Occ /HPF (0-4) Urine Squamous Epithelial Cells Occ /LPF Urine Bacteria 0 /HPF (0-FEW) Urine Hyaline Casts Moderate /HPF O2 Saturation 99 % (92-99) Arterial Blood pH 7.38 (7.35-7.45) Arterial Blood pCO2 at Patient Temp 55 mmHg (35-46) Arterial Blood pO2 at Patient Temp 519 mmHg (65-108) Arterial Blood HCO3 32 mmol/L (21-28) Arterial Blood Base Excess 5 mmol/L (-3-3) Oxyhemoglobin 98.5 % Methemoglobin 0.6 % (0.0-1.9) Carbon Monoxide, Quantitative 0.3 % (0.0-1.9) FiO2 100 Test 06/28/19 07:30 06/28/19 08:00 06/29/19 05:40 06/29/19 07:45 Nasal Screen MRSA (PCR) Negative (Negative) O2 Saturation 99 % (92-99) 98 % (92-99) Arterial Blood pH 7.41 (7.35-7.45) 7.41 (7.35-7.45) Arterial Blood pCO2 at Patient Temp 40 mmHg (35-46) 41 mmHg (35-46) Arterial Blood pO2 at Patient Temp 169 mmHg (65-108) 111 mmHg (65-108) Arterial Blood HCO3 25 mmol/L (21-28) 25 mmol/L (21-28) Arterial Blood Base Excess 1 mmol/L (-3-3) 0 mmol/L (-3-3) FiO2 35 35 White Blood Count 12.1 x10^3/uL (4.0-11.0) Red Blood Count 3.65 x10^6/uL (3.50-5.40) Hemoglobin 9.9 g/dL (12.0-15.5) Hematocrit 30.8 % (36.0-47.0) Mean Corpuscular Volume 84 fL (79-100) Mean Corpuscular Hemoglobin 27 pg (25-35) Mean Corpuscular Hemoglobin Concent 32 g/dL (31-37) Red Cell Distribution Width 16.1 % (11.5-14.5) Platelet Count 303 x10^3/uL (140-400) Neutrophils (%) (Auto) 80 % (31-73) Lymphocytes (%) (Auto) 13 % (24-48) Monocytes (%) (Auto) 6 % (0-9) Eosinophils (%) (Auto) 0 % (0-3) Basophils (%) (Auto) 1 % (0-3) Neutrophils # (Auto) 9.7 x10^3/uL (1.8-7.7) Lymphocytes # (Auto) 1.6 x10^3/uL (1.0-4.8) Monocytes # (Auto) 0.7 x10^3/uL (0.0-1.1) Eosinophils # (Auto) 0.1 x10^3/uL (0.0-0.7) Basophils # (Auto) 0.1 x10^3/uL (0.0-0.2) Sodium Level 141 mmol/L (136-145) Potassium Level 3.7 mmol/L (3.5-5.1) Chloride Level 104 mmol/L (98-107) Carbon Dioxide Level 28 mmol/L (21-32) Anion Gap 9 (6-14) Blood Urea Nitrogen 6 mg/dL (7-20) Creatinine 0.9 mg/dL (0.6-1.0) Estimated GFR (Cockcroft-Gault) 73.3 Glucose Level 105 mg/dL (70-99) Calcium Level 9.1 mg/dL (8.5-10.1) Laboratory Tests Test 06/29/19 05:40 06/29/19 07:45 White Blood Count 12.1 x10^3/uL (4.0-11.0) Red Blood Count 3.65 x10^6/uL (3.50-5.40) Hemoglobin 9.9 g/dL (12.0-15.5) Hematocrit 30.8 % (36.0-47.0) Mean Corpuscular Volume 84 fL (79-100) Mean Corpuscular Hemoglobin 27 pg (25-35) Mean Corpuscular Hemoglobin Concent 32 g/dL (31-37) Red Cell Distribution Width 16.1 % (11.5-14.5) Platelet Count 303 x10^3/uL (140-400) Neutrophils (%) (Auto) 80 % (31-73) Lymphocytes (%) (Auto) 13 % (24-48) Monocytes (%) (Auto) 6 % (0-9) Eosinophils (%) (Auto) 0 % (0-3) Basophils (%) (Auto) 1 % (0-3) Neutrophils # (Auto) 9.7 x10^3/uL (1.8-7.7) Lymphocytes # (Auto) 1.6 x10^3/uL (1.0-4.8) Monocytes # (Auto) 0.7 x10^3/uL (0.0-1.1) Eosinophils # (Auto) 0.1 x10^3/uL (0.0-0.7) Basophils # (Auto) 0.1 x10^3/uL (0.0-0.2) Sodium Level 141 mmol/L (136-145) Potassium Level 3.7 mmol/L (3.5-5.1) Chloride Level 104 mmol/L (98-107) Carbon Dioxide Level 28 mmol/L (21-32) Anion Gap 9 (6-14) Blood Urea Nitrogen 6 mg/dL (7-20) Creatinine 0.9 mg/dL (0.6-1.0) Estimated GFR (Cockcroft-Gault) 73.3 Glucose Level 105 mg/dL (70-99) Calcium Level 9.1 mg/dL (8.5-10.1) O2 Saturation 98 % (92-99) Arterial Blood pH 7.41 (7.35-7.45) Arterial Blood pCO2 at Patient Temp 41 mmHg (35-46) Arterial Blood pO2 at Patient Temp 111 mmHg (65-108) Arterial Blood HCO3 25 mmol/L (21-28) Arterial Blood Base Excess 0 mmol/L (-3-3) FiO2 35 Medications Active Scripts Medications Dose Route/Sig Max Daily Dose Days Date Category Ativan (Lorazepam) 0.5 Mg Tablet 0.5 Mg PO DAILY 06/28/19 Reported Gabapentin (Gabapentin) 300 Mg Capsule 300 Mg PO HS 06/28/19 Reported Diovan (Valsartan) 160 Mg Tablet 160 Mg PO DAILY 05/23/19 Reported Ferrous Sulfate 325 Mg Tablet 1 Tab PO DAILY 01/20/19 Rx Percocet 7.5-325 Mg Tablet (Oxycodone/Acetaminophen) 1 Each Tablet 1 Tab PO QID PRN MDD 1 12/09/18 Rx FENTANYL 50mcg/hr (Fentanyl) 1 Each Patch.td72 1 Patch TP Q3DAYS MDD 1 12/09/18 Rx Albuterol Sulfate Neb Soln (Albuterol Sulfate) 0.63 Mg/3 Ml Vial.neb 1 Vial NEB QID 12/02/18 Reported Gabapentin (Gabapentin) 300 Mg Capsule 300 Mg PO BID PRN 10/19/18 Reported Amlodipine Besylate 5 Mg Tablet 5 Mg PO DAILY 10/19/18 Reported Culturelle (Lactobacillus Rhamnosus Gg) 1 Each Cap.sprink 1 Cap PO BID 30 07/07/17 Rx Pantoprazole Sodium (Pantoprazole Sodium) 40 Mg Tablet.dr 40 Mg PEG BID 03/11/17 Reported Donepezil Hcl 5 Mg Tablet 5 Mg PEG BID 03/11/17 Reported Reglan (Metoclopramide Hcl) 10 Mg Tablet 5 Mg PO QIDACHS 03/11/17 Reported Cyproheptadine Hcl 2 Mg/5 Ml Syrup 10 Ml PEG TID 03/11/17 Reported Ondansetron Odt (Ondansetron) 4 Mg Tab.rapdis 4 Mg PEG QIDPRN PRN 06/19/14 Reported Impression . IMPRESSION: 1. Acute on chronic respiratory failure. 2. Bilateral pulmonary infiltrates, best seen on CT abdomen revealing evidence of consolidation. 3. Suspect pneumonia, gram-positive/gram-negative. 4. Lung cancer, status post tracheotomy. 5. Severe protein malnutrition, present upon admission. 6. History of methicillin-resistant Staphylococcus aureus and Pseudomonas infection and pneumonia in the past. 7. Status post PEG. 8. Leukocytosis. Plan . WILL NEED VENT QHS LOTS OF SECRETIONS AT TIMES RESP RATE RISES D/W RT ANTIBX 1. We will continue current support with assist control ventilation. 2. IV antibiotics. 3. Nebulized treatments. 4. DVT/GI prophylaxis. 5. Consult dietitian for protein malnutrition. ANURAG LOO MD Jun 29, 2019 09:46
--- NOTE | 2019-06-29 10:09 | NUR ---
Patient placed on cpap trial. ABG results sent to Dr Hodge. Patient placed on trach shield during the day with Vent QHS x 3 days.
--- NOTE | 2019-06-29 12:08 | PDOC ---
[employer] PROGRESS NOTE Chief Complaint Chief Complaint Aspiration Pneumonia. History of Present Illness History of Present Illness Patient is a 79 year old female admitted for Aspiration pneumonia. Patient was seen and examined in the ICU. She appeared with no acute distress, and her trach. shield was intact. Vitals/I&O Vitals/I&O: Vital Signs Date Time Temp Pulse Resp B/P (MAP) Pulse Ox O2 Delivery O2 Flow Rate FiO2 06/29/19 11:50 28 93 Tracheal Collar 10.0 06/29/19 10:00 106 172/89 (116) 06/29/19 08:00 99.5 99.5 I & O 06/28/19 06/28/19 06/29/19 14:59 22:59 06:59 Intake Total 50 ml 50 ml 1529 ml Output Total 950 ml 1130 ml 2135 ml Balance -900 ml -1080 ml -606 ml Physical Exam General: Alert, Oriented X3, Cooperative, No acute distress, Other (Neck: Trach. collar intact ) Heart: Regular rate, Normal S1, Normal S2, No murmurs Lungs: Wheezing, Crackles Abdomen: Normal bowel sounds, Soft, No tenderness, No hepatosplenomegaly Extremities: No clubbing, No cyanosis, No edema, Normal pulses Skin: No rashes, No breakdown, No significant lesion Labs Labs: Laboratory Tests Test 06/29/19 05:40 06/29/19 07:45 White Blood Count 12.1 x10^3/uL (4.0-11.0) Red Blood Count 3.65 x10^6/uL (3.50-5.40) Hemoglobin 9.9 g/dL (12.0-15.5) Hematocrit 30.8 % (36.0-47.0) Mean Corpuscular Volume 84 fL (79-100) Mean Corpuscular Hemoglobin 27 pg (25-35) Mean Corpuscular Hemoglobin Concent 32 g/dL (31-37) Red Cell Distribution Width 16.1 % (11.5-14.5) Platelet Count 303 x10^3/uL (140-400) Neutrophils (%) (Auto) 80 % (31-73) Lymphocytes (%) (Auto) 13 % (24-48) Monocytes (%) (Auto) 6 % (0-9) Eosinophils (%) (Auto) 0 % (0-3) Basophils (%) (Auto) 1 % (0-3) Neutrophils # (Auto) 9.7 x10^3/uL (1.8-7.7) Lymphocytes # (Auto) 1.6 x10^3/uL (1.0-4.8) Monocytes # (Auto) 0.7 x10^3/uL (0.0-1.1) Eosinophils # (Auto) 0.1 x10^3/uL (0.0-0.7) Basophils # (Auto) 0.1 x10^3/uL (0.0-0.2) Sodium Level 141 mmol/L (136-145) Potassium Level 3.7 mmol/L (3.5-5.1) Chloride Level 104 mmol/L (98-107) Carbon Dioxide Level 28 mmol/L (21-32) Anion Gap 9 (6-14) Blood Urea Nitrogen 6 mg/dL (7-20) Creatinine 0.9 mg/dL (0.6-1.0) Estimated GFR (Cockcroft-Gault) 73.3 Glucose Level 105 mg/dL (70-99) Calcium Level 9.1 mg/dL (8.5-10.1) O2 Saturation 98 % (92-99) Arterial Blood pH 7.41 (7.35-7.45) Arterial Blood pCO2 at Patient Temp 41 mmHg (35-46) Arterial Blood pO2 at Patient Temp 111 mmHg (65-108) Arterial Blood HCO3 25 mmol/L (21-28) Arterial Blood Base Excess 0 mmol/L (-3-3) FiO2 35 Review of Systems Review of Systems: Patient denies SOB or N/V Assessment and Plan Assessmemt and Plan Problems Medical Problems: (1) Aspiration pneumonia Status: Acute Assessment: Aspiration Pneumonia Trach Lung ca Plan: 1. ICU monitoring 2. Continue Antibiotics 3. DUONEBS 4. Trach. Care 5. 02 per trach. shield 6. DVT prophylaxis 7. Full code Total time 34 min Comment Review of Relevant I have reviewed the following items miko (where applicable) has been applied. Medications: Current Medications Medications (Trade) Dose Ordered Sig/Yuliana Route PRN Reason Start Time Stop Time Status Last Admin Dose Admin Albuterol Sulfate (Ventolin Neb Soln) 2.5 mg QID NEB 06/28/19 13:00 06/29/19 11:34 Enoxaparin Sodium (Lovenox 40mg Syringe) 40 mg Q24H SQ 06/28/19 15:00 06/28/19 15:43 Vancomycin HCl 1 gm/Sodium Chloride 250 ml @ 250 mls/hr Q12H IV 06/28/19 15:00 06/29/19 03:11 Morphine Sulfate (Morphine Sulfate) 2 mg PRN Q2HR PRN IV SEVERE PAIN 7-10 06/29/19 00:00 06/29/19 11:50 Acetaminophen (Tylenol Supp) 650 mg PRN Q6HRS PRN RC MILD PAIN / TEMP 06/29/19 03:00 06/29/19 03:11 Metoprolol Tartrate (Lopressor Vial) 2.5 mg PRN Q4HRS PRN IVP HEART RATE 06/29/19 03:00 06/29/19 03:12 SAMMY WILEY III DO Jun 29, 2019 12:08
[2019-06-29 14:38] LABS: VANC TR 16.4 mcg/mL (10.0-20.0)
--- NOTE | 2019-06-29 14:40 | NUR ---
Pharmacy Vancomycin Dosing Note S: Consulted to monitor and dose vancomycin started 06/27/19. O: BERNARDO DE LEON is a 79 year old F with ASPIRATION PNEUMONIA . Other Antibiotics: ZOSYN 3.375 Q6H LABS: Last BUN: 6 Last Creatinine: 0.9 Creatinine Clearance: 36 mL/min Last WBC: 12.1 Last Procalcitonin: Tmax (past 24 hours): 100.6 Microbiology: BLOOD: NGTD (1 DAY) I/O: 1629/4215 Drug Levels: Last Trough level: 16.4 on 06/29/19 at 1410 Last dose given 06/29/19 at 0311 Vancomycin Dosing: Dosing Weight: Actual Target Trough: 15-20 A: Based on: trough P: 1. Continue Vancomycin 1000 mg IV q12h 2. Follow up Trough level in 5 days if needed 3. Pharmacy will continue to monitor, follow and adjust therapy as needed. Tenisha Noland RPH, 06/29/19 [id number]
[2019-06-29] MEDS: ENOXAPARIN 40 MG/0.4 ML SYRINGE. SQ SCH (15:06)
[2019-06-29] MEDS ORDERED: LOSARTAN POTASSIUM 50 MG TABLET. PO ONE (17:00)
[2019-06-29] MEDS ORDERED: PANTOPRAZOLE 40 MG TABLET.DR. PO SCH (17:00)
[2019-06-29] MEDS ORDERED: fentaNYL 50MCG/HR PATCH 1 PATCH PATCH.TD72 TD SCH (17:00)
[2019-06-29] MEDS ORDERED: amLODIPine BESYLATE 5 MG TABLET PO ONE (17:00)
[2019-06-29] MEDS: METOCLOPRAMIDE 5 MG TABLET. PO SCH ×2 (17:15→21:03)
[2019-06-29] MEDS: LANSOPRAZOLE 30 MG TAB.RAP.DR FT SCH (17:16)
[2019-06-29] MEDS: oxyCODONE/APAP 7.5/325 1 TAB TABLET PO PRN (17:16)
[2019-06-29] MEDS: DONEPEZIL HCL 5 MG TABLET. PEG SCH (21:03)
[2019-06-29] MEDS: GABAPENTIN 300 MG CAPSULE. PO SCH (21:03)
[2019-06-29] MEDS: ONDANSETRON ODT 4 MG TAB.RAPDIS. PEG PRN (23:52)
[2019-06-30] VITALS (24 sets, daily range): BP systolic 99–199; BP diastolic 55–98
[2019-06-30] MEDS: IV NORMAL SALINE 1000ML BAG 1,000 ML IV SCH ×3 (02:39→23:00)
[2019-06-30] MEDS: VANCOMYCIN 1 GM in IV NORMAL SALINE 250ML 250 ML IV SCH ×2 (02:40→14:37)
[2019-06-30] MEDS: PIPERACILLIN/TAZOBACTAM 3.375 GM in IV NORMAL SALINE 50ML 50 ML IV SCH ×3 (06:07→17:09)
[2019-06-30 06:42] LABS: CREATININE 0.8 mg/dL (0.6-1.0); GFR 83.9
[2019-06-30] MEDS: ALBUTEROL SULFATE 2.5 MG/3 ML NEBU. NEB SCH ×4 (07:58→20:45)
[2019-06-30] MEDS: DONEPEZIL HCL 5 MG TABLET. PEG SCH ×2 (08:49→20:45)
[2019-06-30] MEDS: FERROUS SULFATE 325 MG TABLET. PO SCH (08:49)
[2019-06-30] MEDS: LANSOPRAZOLE 30 MG TAB.RAP.DR FT SCH ×2 (08:49→17:10)
[2019-06-30] MEDS: LOSARTAN POTASSIUM 50 MG TABLET. PO SCH (08:51)
[2019-06-30] MEDS: METOCLOPRAMIDE 5 MG TABLET. PO SCH ×4 (08:51→20:46)
[2019-06-30] MEDS: LORazepam 0.5 MG TABLET PO SCH (08:51)
[2019-06-30] MEDS: oxyCODONE/APAP 7.5/325 1 TAB TABLET PO PRN ×3 (08:51→20:45)
[2019-06-30] MEDS: fentaNYL 50MCG/HR PATCH 1 PATCH PATCH.TD72 TD SCH (08:52)
--- NOTE | 2019-06-30 09:16 | PDOC ---
PULMONARY PROGRESS NOTES Subjective PT AWAKE AND ALERT NO NEW COMPPLAINTS Vitals Vital Signs Date Time Temp Pulse Resp B/P (MAP) Pulse Ox O2 Delivery O2 Flow Rate FiO2 06/30/19 08:52 16 100 Ventilator 06/30/19 08:51 87 153/72 06/30/19 04:00 98.3 98.3 06/30/19 00:00 10.0 ROS: No Nausea, No Chest Pain, No Abdominal Pain, No Increase Cough General: Alert, No acute distress Lungs: Wheezing, Crackles Cardiovascular: S1, S2 Abdomen: Soft, Non-tender Neuro Exam: Alert Extremities: No Edema Skin: Warm Labs Laboratory Tests Test 06/29/19 05:40 06/29/19 07:45 06/29/19 14:10 06/30/19 06:28 White Blood Count 12.1 x10^3/uL (4.0-11.0) Red Blood Count 3.65 x10^6/uL (3.50-5.40) Hemoglobin 9.9 g/dL (12.0-15.5) Hematocrit 30.8 % (36.0-47.0) Mean Corpuscular Volume 84 fL (79-100) Mean Corpuscular Hemoglobin 27 pg (25-35) Mean Corpuscular Hemoglobin Concent 32 g/dL (31-37) Red Cell Distribution Width 16.1 % (11.5-14.5) Platelet Count 303 x10^3/uL (140-400) Neutrophils (%) (Auto) 80 % (31-73) Lymphocytes (%) (Auto) 13 % (24-48) Monocytes (%) (Auto) 6 % (0-9) Eosinophils (%) (Auto) 0 % (0-3) Basophils (%) (Auto) 1 % (0-3) Neutrophils # (Auto) 9.7 x10^3/uL (1.8-7.7) Lymphocytes # (Auto) 1.6 x10^3/uL (1.0-4.8) Monocytes # (Auto) 0.7 x10^3/uL (0.0-1.1) Eosinophils # (Auto) 0.1 x10^3/uL (0.0-0.7) Basophils # (Auto) 0.1 x10^3/uL (0.0-0.2) Sodium Level 141 mmol/L (136-145) Potassium Level 3.7 mmol/L (3.5-5.1) Chloride Level 104 mmol/L (98-107) Carbon Dioxide Level 28 mmol/L (21-32) Anion Gap 9 (6-14) Blood Urea Nitrogen 6 mg/dL (7-20) Creatinine 0.9 mg/dL (0.6-1.0) 0.8 mg/dL (0.6-1.0) Estimated GFR (Cockcroft-Gault) 73.3 83.9 Glucose Level 105 mg/dL (70-99) Calcium Level 9.1 mg/dL (8.5-10.1) O2 Saturation 98 % (92-99) Arterial Blood pH 7.41 (7.35-7.45) Arterial Blood pCO2 at Patient Temp 41 mmHg (35-46) Arterial Blood pO2 at Patient Temp 111 mmHg (65-108) Arterial Blood HCO3 25 mmol/L (21-28) Arterial Blood Base Excess 0 mmol/L (-3-3) FiO2 35 Vancomycin Level Trough 16.4 mcg/mL (10.0-20.0) Vancomycin Last Dose Date 06/29/19 Vancomycin Last Dose Time 0300 Laboratory Tests Test 06/29/19 14:10 06/30/19 06:28 Vancomycin Level Trough 16.4 mcg/mL (10.0-20.0) Vancomycin Last Dose Date 06/29/19 Vancomycin Last Dose Time 0300 Creatinine 0.8 mg/dL (0.6-1.0) Estimated GFR (Cockcroft-Gault) 83.9 Medications Active Scripts Medications Dose Route/Sig Max Daily Dose Days Date Category Ativan (Lorazepam) 0.5 Mg Tablet 0.5 Mg PO DAILY 06/28/19 Reported Gabapentin (Gabapentin) 300 Mg Capsule 300 Mg PO HS 06/28/19 Reported Diovan (Valsartan) 160 Mg Tablet 160 Mg PO DAILY 05/23/19 Reported Ferrous Sulfate 325 Mg Tablet 1 Tab PO DAILY 01/20/19 Rx Percocet 7.5-325 Mg Tablet (Oxycodone/Acetaminophen) 1 Each Tablet 1 Tab PO QID PRN MDD 1 12/09/18 Rx FENTANYL 50mcg/hr (Fentanyl) 1 Each Patch.td72 1 Patch TP Q3DAYS MDD 1 12/09/18 Rx Albuterol Sulfate Neb Soln (Albuterol Sulfate) 0.63 Mg/3 Ml Vial.neb 1 Vial NEB QID 12/02/18 Reported Gabapentin (Gabapentin) 300 Mg Capsule 300 Mg PO BID PRN 10/19/18 Reported Amlodipine Besylate 5 Mg Tablet 5 Mg PO DAILY 10/19/18 Reported Culturelle (Lactobacillus Rhamnosus Gg) 1 Each Cap.sprink 1 Cap PO BID 30 07/07/17 Rx Pantoprazole Sodium (Pantoprazole Sodium) 40 Mg Tablet.dr 40 Mg PEG BID 03/11/17 Reported Donepezil Hcl 5 Mg Tablet 5 Mg PEG BID 03/11/17 Reported Reglan (Metoclopramide Hcl) 10 Mg Tablet 5 Mg PO QIDACHS 03/11/17 Reported Cyproheptadine Hcl 2 Mg/5 Ml Syrup 10 Ml PEG TID 03/11/17 Reported Ondansetron Odt (Ondansetron) 4 Mg Tab.rapdis 4 Mg PEG QIDPRN PRN 06/19/14 Reported Impression . IMPRESSION: 1. Acute on chronic respiratory failure. 2. Bilateral pulmonary infiltrates, best seen on CT abdomen revealing evidence of consolidation. 3. Suspect pneumonia, gram-positive/gram-negative. 4. Lung cancer, status post tracheotomy. 5. Severe protein malnutrition, present upon admission. 6. History of methicillin-resistant Staphylococcus aureus and Pseudomonas infection and pneumonia in the past. 7. Status post PEG. 8. Leukocytosis. Plan . ANTIBX STEROIDS WILL NEED VENT QHS LOTS OF SECRETIONS AT TIMES RESP RATE RISES D/W RT ANTIBX NUTRITION SUPPORT ANURAG LOO MD Jun 30, 2019 09:16
[2019-06-30] MEDS: amLODIPine BESYLATE 5 MG TABLET PO SCH (09:36)
[2019-06-30] MEDS: VANCOMYCIN PER PHARMACY MC PRN (11:22)
--- NOTE | 2019-06-30 12:13 | PDOC ---
[employer] PROGRESS NOTE Chief Complaint Chief Complaint Aspiration Pneumonia. History of Present Illness History of Present Illness Patient is a 79 year old female admitted for Aspiration pneumonia. Patient was seen and examined in the ICU. She appeared with no acute distress, and her trach. shield was intact. Vitals/I&O Vitals/I&O: Vital Signs Date Time Temp Pulse Resp B/P (MAP) Pulse Ox O2 Delivery O2 Flow Rate FiO2 06/30/19 11:18 100 Tracheal Collar 8.0 06/30/19 10:00 74 16 136/69 (91) 06/30/19 08:00 98.4 98.4 I & O 06/29/19 06/29/19 06/30/19 15:00 23:00 07:00 Intake Total 1500 ml Output Total 1985 ml 935 ml 390 ml Balance -1985 ml 565 ml -390 ml Physical Exam General: Alert, Oriented X3, Cooperative, No acute distress, Other (Neck: Trach. collar intact ) Heart: Regular rate, Normal S1, Normal S2, No murmurs Lungs: Wheezing, Crackles Abdomen: Normal bowel sounds, Soft, No tenderness, No hepatosplenomegaly Extremities: No clubbing, No cyanosis, No edema, Normal pulses Skin: No rashes, No breakdown, No significant lesion Labs Labs: Laboratory Tests Test 06/29/19 14:10 06/30/19 06:28 Vancomycin Level Trough 16.4 mcg/mL (10.0-20.0) Vancomycin Last Dose Date 06/29/19 Vancomycin Last Dose Time 0300 Creatinine 0.8 mg/dL (0.6-1.0) Estimated GFR (Cockcroft-Gault) 83.9 Assessment and Plan Assessmemt and Plan Problems Medical Problems: (1) Aspiration pneumonia Status: Acute Assessment: Aspiration pneumonia, Stage 4 lung cancer Plan: 1. 02 per trach. Shield 2. Continue IV antibiotics (Zosyn) 3. Trach. Care 4. DVT prophylaxis 5. PT/OT 6. Home care 7. Full code Total time 32 min Comment Review of Relevant I have reviewed the following items miko (where applicable) has been applied. Medications: Current Medications Medications (Trade) Dose Ordered Sig/Yuliana Route PRN Reason Start Time Stop Time Status Last Admin Dose Admin Vancomycin HCl (Vancomycin Trough Level) 1 each 1X ONCE MC 06/29/19 14:30 06/29/19 14:31 DC 06/29/19 14:30 Amlodipine Besylate (Norvasc) 5 mg DAILY PO 06/30/19 09:00 06/30/19 09:36 Donepezil HCl (Aricept) 5 mg BID PEG 06/29/19 21:00 06/30/19 08:49 Ferrous Sulfate (Feosol) 325 mg DAILY08 PO 06/30/19 08:00 06/30/19 08:49 Metoclopramide HCl (Reglan) 5 mg QIDACHS PO 06/29/19 16:45 06/30/19 12:02 Ondansetron HCl (Zofran Odt) 4 mg QIDPRN PRN PEG NAUSEA/VOMITING 06/29/19 16:45 06/29/19 23:52 Oxycodone/ Acetaminophen (Percocet 7.5/ 325) 1 tab PRN QID PRN PO MODERATE TO SEVERE PAIN 06/29/19 16:45 06/30/19 08:51 Losartan Potassium (Cozaar) 100 mg DAILY PO 06/30/19 09:00 06/30/19 08:51 Gabapentin (Neurontin) 300 mg HS PO 06/29/19 21:00 06/29/19 21:03 Lorazepam (Ativan) 0.5 mg DAILY PO 06/30/19 09:00 06/30/19 08:51 Amlodipine Besylate (Norvasc) 5 mg 1X ONCE PO 06/29/19 17:00 06/29/19 17:01 DC 06/29/19 17:17 Losartan Potassium (Cozaar) 100 mg 1X ONCE PO 06/29/19 17:00 06/29/19 17:01 DC 06/29/19 17:17 Fentanyl (Duragesic 50mcg/ Hr Patch) 1 patch Q3DAYS TD 06/30/19 09:00 06/30/19 08:52 Lansoprazole (Prevacid) 30 mg BIDBFRMEAL FT 06/29/19 17:30 06/30/19 08:49 SAMMY WILEY III DO Jun 30, 2019 12:12
[2019-06-30] MEDS: ENOXAPARIN 40 MG/0.4 ML SYRINGE. SQ SCH (14:36)
[2019-06-30] MEDS: ONDANSETRON ODT 4 MG TAB.RAPDIS. PEG PRN (20:45)
[2019-06-30] MEDS: GABAPENTIN 300 MG CAPSULE. PO SCH (20:45)
[2019-07-01] VITALS (23 sets, daily range): BP systolic 111–167; BP diastolic 36–91
[2019-07-01] MEDS: PIPERACILLIN/TAZOBACTAM 3.375 GM in IV NORMAL SALINE 50ML 50 ML IV SCH ×4 (01:12→17:29)
[2019-07-01] MEDS: oxyCODONE/APAP 7.5/325 1 TAB TABLET PO PRN ×4 (01:12→22:55)
[2019-07-01] MEDS: VANCOMYCIN 1 GM in IV NORMAL SALINE 250ML 250 ML IV SCH ×2 (02:31→16:10)
[2019-07-01] MEDS: IV NORMAL SALINE 1000ML BAG 1,000 ML IV SCH ×3 (05:19→21:14)
[2019-07-01 06:15] LABS: BASO % 1 % (0-3); EOS # 0.5 x10^3/uL (0.0-0.7); EOS % 6 % (0-3); HEMATOCRIT 27.7 % (36.0-47.0); HEMOGLOBIN 8.8 g/dL (12.0-15.5); LYMPH # 1.7 x10^3/uL (1.0-4.8); LYMPH % 24 % (24-48); MEAN CORPUSCULAR HEMOGLOBIN 27 pg (25-35); MEAN CORPUSCULAR HGB CONC 32 g/dL (31-37); MEAN CORPUSCULAR VOLUME 85 fL (79-100); MONO # 0.5 x10^3/uL (0.0-1.1); MONO % 7 % (0-9); NEUT # 4.7 x10^3/uL (1.8-7.7); NEUT % 63 % (31-73); PLATELET COUNT 267 x10^3/uL (140-400); RED BLOOD COUNT 3.27 x10^6/uL (3.50-5.40); RED CELL DISTRIBUTION WIDTH 16.1 % (11.5-14.5); WHITE BLOOD COUNT 7.4 x10^3/uL (4.0-11.0)
[2019-07-01 06:32] LABS: ALBUMIN/GLOBULIN RATIO 0.4 (1.0-1.7); CALCIUM 8.3 mg/dL (8.5-10.1); CREATININE 0.9 mg/dL (0.6-1.0); GFR 73.3; POTASSIUM 3.7 mmol/L (3.5-5.1); TOTAL BILIRUBIN 0.4 mg/dL (0.2-1.0); TOTAL PROTEIN 6.5 g/dL (6.4-8.2)
[2019-07-01] MEDS: METOCLOPRAMIDE 5 MG TABLET. PO SCH ×4 (07:30→21:13)
[2019-07-01] MEDS: ALBUTEROL SULFATE 2.5 MG/3 ML NEBU. NEB SCH ×4 (08:57→19:36)
[2019-07-01] MEDS: amLODIPine BESYLATE 5 MG TABLET PO SCH (09:00)
[2019-07-01] MEDS: LOSARTAN POTASSIUM 50 MG TABLET. PO SCH (09:00)
[2019-07-01] MEDS: LANSOPRAZOLE 30 MG TAB.RAP.DR FT SCH ×3 (09:00→17:28)
--- NOTE | 2019-07-01 09:00 | NUR ---
SS following up with discharge planning. Pt remains in ICU level care. Pt's family continues to remain resistant to LTC placement, LTAC, or hospice care for pt. Pt's family currently wanting pt to return to home with continued services for oxygen and home healthcare. Pt is a high risk readmission risk. SS will continue to follow for discharge planning.
[2019-07-01] MEDS: LORazepam 0.5 MG TABLET PO SCH (09:01)
[2019-07-01] MEDS: FERROUS SULFATE 325 MG TABLET. PO SCH (09:01)
[2019-07-01] MEDS: DONEPEZIL HCL 5 MG TABLET. PEG SCH ×2 (09:01→21:13)
--- NOTE | 2019-07-01 10:54 | PDOC ---
PULMONARY PROGRESS NOTES Subjective PT AWAKE AND ALERT NO NEW COMPPLAINTS Vitals Vital Signs Date Time Temp Pulse Resp B/P (MAP) Pulse Ox O2 Delivery O2 Flow Rate FiO2 07/01/19 09:00 68 117/55 07/01/19 08:53 100 Ventilator 07/01/19 08:12 18 10.0 07/01/19 04:00 98.8 98.8 ROS: No Nausea, No Chest Pain, No Abdominal Pain, No Increase Cough General: Alert, No acute distress Lungs: Wheezing, Crackles Cardiovascular: S1, S2 Abdomen: Soft, Non-tender Neuro Exam: Alert Extremities: No Edema Skin: Warm Labs Laboratory Tests Test 06/29/19 14:10 06/30/19 06:28 07/01/19 06:03 Vancomycin Level Trough 16.4 mcg/mL (10.0-20.0) Vancomycin Last Dose Date 06/29/19 Vancomycin Last Dose Time 0300 Creatinine 0.8 mg/dL (0.6-1.0) 0.9 mg/dL (0.6-1.0) Estimated GFR (Cockcroft-Gault) 83.9 73.3 White Blood Count 7.4 x10^3/uL (4.0-11.0) Red Blood Count 3.27 x10^6/uL (3.50-5.40) Hemoglobin 8.8 g/dL (12.0-15.5) Hematocrit 27.7 % (36.0-47.0) Mean Corpuscular Volume 85 fL (79-100) Mean Corpuscular Hemoglobin 27 pg (25-35) Mean Corpuscular Hemoglobin Concent 32 g/dL (31-37) Red Cell Distribution Width 16.1 % (11.5-14.5) Platelet Count 267 x10^3/uL (140-400) Neutrophils (%) (Auto) 63 % (31-73) Lymphocytes (%) (Auto) 24 % (24-48) Monocytes (%) (Auto) 7 % (0-9) Eosinophils (%) (Auto) 6 % (0-3) Basophils (%) (Auto) 1 % (0-3) Neutrophils # (Auto) 4.7 x10^3/uL (1.8-7.7) Lymphocytes # (Auto) 1.7 x10^3/uL (1.0-4.8) Monocytes # (Auto) 0.5 x10^3/uL (0.0-1.1) Eosinophils # (Auto) 0.5 x10^3/uL (0.0-0.7) Basophils # (Auto) 0.0 x10^3/uL (0.0-0.2) Sodium Level 145 mmol/L (136-145) Potassium Level 3.7 mmol/L (3.5-5.1) Chloride Level 110 mmol/L (98-107) Carbon Dioxide Level 29 mmol/L (21-32) Anion Gap 6 (6-14) Blood Urea Nitrogen 7 mg/dL (7-20) BUN/Creatinine Ratio 8 (6-20) Glucose Level 79 mg/dL (70-99) Calcium Level 8.3 mg/dL (8.5-10.1) Total Bilirubin 0.4 mg/dL (0.2-1.0) Aspartate Amino Transf (AST/SGOT) 17 U/L (15-37) Alanine Aminotransferase (ALT/SGPT) 10 U/L (14-59) Alkaline Phosphatase 67 U/L (46-116) Total Protein 6.5 g/dL (6.4-8.2) Albumin 2.0 g/dL (3.4-5.0) Albumin/Globulin Ratio 0.4 (1.0-1.7) Laboratory Tests Test 07/01/19 06:03 White Blood Count 7.4 x10^3/uL (4.0-11.0) Red Blood Count 3.27 x10^6/uL (3.50-5.40) Hemoglobin 8.8 g/dL (12.0-15.5) Hematocrit 27.7 % (36.0-47.0) Mean Corpuscular Volume 85 fL (79-100) Mean Corpuscular Hemoglobin 27 pg (25-35) Mean Corpuscular Hemoglobin Concent 32 g/dL (31-37) Red Cell Distribution Width 16.1 % (11.5-14.5) Platelet Count 267 x10^3/uL (140-400) Neutrophils (%) (Auto) 63 % (31-73) Lymphocytes (%) (Auto) 24 % (24-48) Monocytes (%) (Auto) 7 % (0-9) Eosinophils (%) (Auto) 6 % (0-3) Basophils (%) (Auto) 1 % (0-3) Neutrophils # (Auto) 4.7 x10^3/uL (1.8-7.7) Lymphocytes # (Auto) 1.7 x10^3/uL (1.0-4.8) Monocytes # (Auto) 0.5 x10^3/uL (0.0-1.1) Eosinophils # (Auto) 0.5 x10^3/uL (0.0-0.7) Basophils # (Auto) 0.0 x10^3/uL (0.0-0.2) Sodium Level 145 mmol/L (136-145) Potassium Level 3.7 mmol/L (3.5-5.1) Chloride Level 110 mmol/L (98-107) Carbon Dioxide Level 29 mmol/L (21-32) Anion Gap 6 (6-14) Blood Urea Nitrogen 7 mg/dL (7-20) Creatinine 0.9 mg/dL (0.6-1.0) Estimated GFR (Cockcroft-Gault) 73.3 BUN/Creatinine Ratio 8 (6-20) Glucose Level 79 mg/dL (70-99) Calcium Level 8.3 mg/dL (8.5-10.1) Total Bilirubin 0.4 mg/dL (0.2-1.0) Aspartate Amino Transf (AST/SGOT) 17 U/L (15-37) Alanine Aminotransferase (ALT/SGPT) 10 U/L (14-59) Alkaline Phosphatase 67 U/L (46-116) Total Protein 6.5 g/dL (6.4-8.2) Albumin 2.0 g/dL (3.4-5.0) Albumin/Globulin Ratio 0.4 (1.0-1.7) Medications Active Scripts Medications Dose Route/Sig Max Daily Dose Days Date Category Ativan (Lorazepam) 0.5 Mg Tablet 0.5 Mg PO DAILY 06/28/19 Reported Gabapentin (Gabapentin) 300 Mg Capsule 300 Mg PO HS 06/28/19 Reported Diovan (Valsartan) 160 Mg Tablet 160 Mg PO DAILY 05/23/19 Reported Ferrous Sulfate 325 Mg Tablet 1 Tab PO DAILY 01/20/19 Rx Percocet 7.5-325 Mg Tablet (Oxycodone/Acetaminophen) 1 Each Tablet 1 Tab PO QID PRN MDD 1 12/09/18 Rx FENTANYL 50mcg/hr (Fentanyl) 1 Each Patch.td72 1 Patch TP Q3DAYS MDD 1 12/09/18 Rx Albuterol Sulfate Neb Soln (Albuterol Sulfate) 0.63 Mg/3 Ml Vial.neb 1 Vial NEB QID 12/02/18 Reported Gabapentin (Gabapentin) 300 Mg Capsule 300 Mg PO BID PRN 10/19/18 Reported Amlodipine Besylate 5 Mg Tablet 5 Mg PO DAILY 10/19/18 Reported Culturelle (Lactobacillus Rhamnosus Gg) 1 Each Cap.sprink 1 Cap PO BID 30 07/07/17 Rx Pantoprazole Sodium (Pantoprazole Sodium) 40 Mg Tablet.dr 40 Mg PEG BID 03/11/17 Reported Donepezil Hcl 5 Mg Tablet 5 Mg PEG BID 03/11/17 Reported Reglan (Metoclopramide Hcl) 10 Mg Tablet 5 Mg PO QIDACHS 03/11/17 Reported Cyproheptadine Hcl 2 Mg/5 Ml Syrup 10 Ml PEG TID 03/11/17 Reported Ondansetron Odt (Ondansetron) 4 Mg Tab.rapdis 4 Mg PEG QIDPRN PRN 06/19/14 Reported Impression . IMPRESSION: 1. Acute on chronic respiratory failure. 2. Bilateral pulmonary infiltrates, best seen on CT abdomen revealing evidence of consolidation. 3. Suspect pneumonia, gram-positive/gram-negative. 4. Lung cancer, status post tracheotomy. 5. Severe protein malnutrition, present upon admission. 6. History of methicillin-resistant Staphylococcus aureus and Pseudomonas infection and pneumonia in the past. 7. Status post PEG. 8. Leukocytosis. Plan . ANTIBX STEROIDS WILL NEED VENT QHS LOTS OF SECRETIONS AT TIMES RESP RATE RISES D/W RT ANTIBX NUTRITION SUPPORT AUNRAG LOO MD Jul 01, 2019 10:54
[2019-07-01] MEDS: VANCOMYCIN PER PHARMACY MC PRN (10:58)
--- NOTE | 2019-07-01 15:28 | PDOC ---
PROGRESS NOTES Chief Complaint Chief Complaint Aspiration Pneumonia. 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 s/p radiation and chemo, trach done at [facility] July 2015. now s/p Erbitux, completed here in September 2015. 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 History of Present Illness History of Present Illness Bel looks pretty good, She was seen and examined in the ICU. She appeared with no acute distress, and her trach. shield was intact. needs vent at night, Vitals Vitals Vital Signs Date Time Temp Pulse Resp B/P (MAP) Pulse Ox O2 Delivery O2 Flow Rate FiO2 07/01/19 14:00 84 20 128/59 (82) 100 Tracheal Collar 10.0 07/01/19 12:00 98.0 98.0 Physical Exam General: Alert, Oriented X3, Cooperative, No acute distress, Other (Neck: Trach. collar intact ) Heart: Regular rate, Normal S1, Normal S2, No murmurs Lungs: Wheezing, Crackles Abdomen: Normal bowel sounds, Soft, No tenderness, No hepatosplenomegaly Extremities: No clubbing, No cyanosis, No edema, Normal pulses Skin: No rashes, No breakdown, No significant lesion Labs LABS Laboratory Tests Test 07/01/19 06:03 White Blood Count 7.4 x10^3/uL (4.0-11.0) Red Blood Count 3.27 x10^6/uL (3.50-5.40) Hemoglobin 8.8 g/dL (12.0-15.5) Hematocrit 27.7 % (36.0-47.0) Mean Corpuscular Volume 85 fL (79-100) Mean Corpuscular Hemoglobin 27 pg (25-35) Mean Corpuscular Hemoglobin Concent 32 g/dL (31-37) Red Cell Distribution Width 16.1 % (11.5-14.5) Platelet Count 267 x10^3/uL (140-400) Neutrophils (%) (Auto) 63 % (31-73) Lymphocytes (%) (Auto) 24 % (24-48) Monocytes (%) (Auto) 7 % (0-9) Eosinophils (%) (Auto) 6 % (0-3) Basophils (%) (Auto) 1 % (0-3) Neutrophils # (Auto) 4.7 x10^3/uL (1.8-7.7) Lymphocytes # (Auto) 1.7 x10^3/uL (1.0-4.8) Monocytes # (Auto) 0.5 x10^3/uL (0.0-1.1) Eosinophils # (Auto) 0.5 x10^3/uL (0.0-0.7) Basophils # (Auto) 0.0 x10^3/uL (0.0-0.2) Sodium Level 145 mmol/L (136-145) Potassium Level 3.7 mmol/L (3.5-5.1) Chloride Level 110 mmol/L (98-107) Carbon Dioxide Level 29 mmol/L (21-32) Anion Gap 6 (6-14) Blood Urea Nitrogen 7 mg/dL (7-20) Creatinine 0.9 mg/dL (0.6-1.0) Estimated GFR (Cockcroft-Gault) 73.3 BUN/Creatinine Ratio 8 (6-20) Glucose Level 79 mg/dL (70-99) Calcium Level 8.3 mg/dL (8.5-10.1) Total Bilirubin 0.4 mg/dL (0.2-1.0) Aspartate Amino Transf (AST/SGOT) 17 U/L (15-37) Alanine Aminotransferase (ALT/SGPT) 10 U/L (14-59) Alkaline Phosphatase 67 U/L (46-116) Total Protein 6.5 g/dL (6.4-8.2) Albumin 2.0 g/dL (3.4-5.0) Albumin/Globulin Ratio 0.4 (1.0-1.7) Assessment and Plan Assessmemt and Plan Problems Medical Problems: (1) Aspiration pneumonia Status: Acute Comment Review of Relevant I have reviewed the following items miko (where applicable) has been applied. Labs Laboratory Tests Test 06/30/19 06:28 07/01/19 06:03 Creatinine 0.8 mg/dL (0.6-1.0) 0.9 mg/dL (0.6-1.0) Estimated GFR (Cockcroft-Gault) 83.9 73.3 White Blood Count 7.4 x10^3/uL (4.0-11.0) Red Blood Count 3.27 x10^6/uL (3.50-5.40) Hemoglobin 8.8 g/dL (12.0-15.5) Hematocrit 27.7 % (36.0-47.0) Mean Corpuscular Volume 85 fL (79-100) Mean Corpuscular Hemoglobin 27 pg (25-35) Mean Corpuscular Hemoglobin Concent 32 g/dL (31-37) Red Cell Distribution Width 16.1 % (11.5-14.5) Platelet Count 267 x10^3/uL (140-400) Neutrophils (%) (Auto) 63 % (31-73) Lymphocytes (%) (Auto) 24 % (24-48) Monocytes (%) (Auto) 7 % (0-9) Eosinophils (%) (Auto) 6 % (0-3) Basophils (%) (Auto) 1 % (0-3) Neutrophils # (Auto) 4.7 x10^3/uL (1.8-7.7) Lymphocytes # (Auto) 1.7 x10^3/uL (1.0-4.8) Monocytes # (Auto) 0.5 x10^3/uL (0.0-1.1) Eosinophils # (Auto) 0.5 x10^3/uL (0.0-0.7) Basophils # (Auto) 0.0 x10^3/uL (0.0-0.2) Sodium Level 145 mmol/L (136-145) Potassium Level 3.7 mmol/L (3.5-5.1) Chloride Level 110 mmol/L (98-107) Carbon Dioxide Level 29 mmol/L (21-32) Anion Gap 6 (6-14) Blood Urea Nitrogen 7 mg/dL (7-20) BUN/Creatinine Ratio 8 (6-20) Glucose Level 79 mg/dL (70-99) Calcium Level 8.3 mg/dL (8.5-10.1) Total Bilirubin 0.4 mg/dL (0.2-1.0) Aspartate Amino Transf (AST/SGOT) 17 U/L (15-37) Alanine Aminotransferase (ALT/SGPT) 10 U/L (14-59) Alkaline Phosphatase 67 U/L (46-116) Total Protein 6.5 g/dL (6.4-8.2) Albumin 2.0 g/dL (3.4-5.0) Albumin/Globulin Ratio 0.4 (1.0-1.7) Laboratory Tests Test 07/01/19 06:03 White Blood Count 7.4 x10^3/uL (4.0-11.0) Red Blood Count 3.27 x10^6/uL (3.50-5.40) Hemoglobin 8.8 g/dL (12.0-15.5) Hematocrit 27.7 % (36.0-47.0) Mean Corpuscular Volume 85 fL (79-100) Mean Corpuscular Hemoglobin 27 pg (25-35) Mean Corpuscular Hemoglobin Concent 32 g/dL (31-37) Red Cell Distribution Width 16.1 % (11.5-14.5) Platelet Count 267 x10^3/uL (140-400) Neutrophils (%) (Auto) 63 % (31-73) Lymphocytes (%) (Auto) 24 % (24-48) Monocytes (%) (Auto) 7 % (0-9) Eosinophils (%) (Auto) 6 % (0-3) Basophils (%) (Auto) 1 % (0-3) Neutrophils # (Auto) 4.7 x10^3/uL (1.8-7.7) Lymphocytes # (Auto) 1.7 x10^3/uL (1.0-4.8) Monocytes # (Auto) 0.5 x10^3/uL (0.0-1.1) Eosinophils # (Auto) 0.5 x10^3/uL (0.0-0.7) Basophils # (Auto) 0.0 x10^3/uL (0.0-0.2) Sodium Level 145 mmol/L (136-145) Potassium Level 3.7 mmol/L (3.5-5.1) Chloride Level 110 mmol/L (98-107) Carbon Dioxide Level 29 mmol/L (21-32) Anion Gap 6 (6-14) Blood Urea Nitrogen 7 mg/dL (7-20) Creatinine 0.9 mg/dL (0.6-1.0) Estimated GFR (Cockcroft-Gault) 73.3 BUN/Creatinine Ratio 8 (6-20) Glucose Level 79 mg/dL (70-99) Calcium Level 8.3 mg/dL (8.5-10.1) Total Bilirubin 0.4 mg/dL (0.2-1.0) Aspartate Amino Transf (AST/SGOT) 17 U/L (15-37) Alanine Aminotransferase (ALT/SGPT) 10 U/L (14-59) Alkaline Phosphatase 67 U/L (46-116) Total Protein 6.5 g/dL (6.4-8.2) Albumin 2.0 g/dL (3.4-5.0) Albumin/Globulin Ratio 0.4 (1.0-1.7) Microbiology 06/27/19 - Final, Complete 06/27/19 - Final, Complete 06/27/19 - Final, Complete 06/27/19 Gram Stain Evaluation - Final, Complete 06/27/19 Sputum Culture - Final, Complete 06/27/19 Sputum Result 1 - Final, Complete 06/27/19 Sputum Result 2 - Final, Complete 06/27/19 Antimicrobic Susceptibility - Final, Complete 06/27/19 Blood Culture - Preliminary, Resulted NO GROWTH AFTER 3 DAYS Medications Current Medications Albuterol/ Ipratropium (Duoneb) 3 ml 1X ONCE NEB Last administered on 06/27/19at 20:51; Start 06/27/19 at 20:15; Stop 06/27/19 at 20:16; Status DC Sodium Chloride 1,000 ml @ 125 mls/hr 1X ONCE IV Last administered on 06/27/19at 21:15; Start 06/27/19 at 20:15; Stop 06/28/19 at 04:14; Status DC Lorazepam (Ativan Inj) 2 mg 1X ONCE IVP Last administered on 06/27/19at 20:56; Start 06/27/19 at 21:00; Stop 06/27/19 at 21:01; Status DC Vancomycin HCl 250 ml @ 250 mls/hr 1X ONCE IV ; Start 06/27/19 at 21:30; Stop 06/27/19 at 22:29; Status UNV Piperacillin Sod/ Tazobactam Sod 3.375 gm/Sodium Chloride 50 ml @ 100 mls/hr 1X ONCE IV Last administered on 06/27/19at 22:33; Start 06/27/19 at 21:30; Stop 06/27/19 at 21:59; Status DC Vancomycin HCl 1.25 gm/Sodium Chloride 250 ml @ 167 mls/hr ONCE ONCE IV Last administered on 06/27/19at 23:50; Start 06/27/19 at 21:45; Stop 06/27/19 at 23:14; Status DC Ondansetron HCl (Zofran) 4 mg PRN Q8HRS PRN IV NAUSEA/VOMITING 1ST CHOICE; Start 06/27/19 at 22:30; Stop 06/28/19 at 22:29; Status DC Morphine Sulfate (Morphine Sulfate) 2 mg PRN Q2HR PRN IV SEVERE PAIN 7-10; Start 06/27/19 at 22:30; Stop 06/28/19 at 22:29; Status DC Albuterol/ Ipratropium (Duoneb) 3 ml RTQID NEB Last administered on 06/28/19at 08:38; Start 06/28/19 at 08:00; Stop 06/28/19 at 16:03; Status DC Norepinephrine Bitartrate 250 ml @ 9.355 mls/ hr CONT PRN IV SEE I/O RECORD Last administered on 06/28/19at 00:22; Start 06/28/19 at 00:15 Piperacillin Sod/ Tazobactam Sod (Zosyn Per Pharmacy) 1 each PRN DAILY PRN MC SEE COMMENTS; Start 06/28/19 at 00:15 Vancomycin HCl (Vanco Per Pharmacy) 1 each PRN DAILY PRN MC SEE COMMENTS Last administered on 07/01/19at 10:58; Start 06/28/19 at 00:15 Piperacillin Sod/ Tazobactam Sod 3.375 gm/Sodium Chloride 50 ml @ 100 mls/hr Q6HRS IV Last administered on 07/01/19at 12:10; Start 06/28/19 at 06:00 Vancomycin HCl 750 mg/Sodium Chloride 250 ml @ 250 mls/hr Q24H IV ; Start 06/29/19 at 00:00; Stop 06/28/19 at 14:07; Status DC Vancomycin HCl (Vancomycin Trough Level) 1 each 1X ONCE MC Last administered on 06/29/19at 14:30; Start 06/29/19 at 14:30; Stop 06/29/19 at 14:31; Status DC Sodium Chloride 1,000 ml @ 75 mls/hr [id number] IV Last administered on 07/01/19at 05:19; Start 06/28/19 at 07:45 Albuterol Sulfate (Ventolin Neb Soln) 2.5 mg QID NEB Last administered on 07/01/19 12:58; Start 06/28/19 at 13:00 Albuterol Sulfate (Ventolin Neb Soln) 2.5 mg PRN Q3HRS PRN NEB SOA; Start 06/28/19 at 12:00 Enoxaparin Sodium (Lovenox 40mg Syringe) 40 mg Q24H SQ Last administered on 06/30/19 14:36; Start 06/28/19 at 15:00 Vancomycin HCl 1 gm/Sodium Chloride 250 ml @ 250 mls/hr Q12H IV Last administered on 07/01/19 02:31; Start 06/28/19 at 15:00 Morphine Sulfate (Morphine Sulfate) 2 mg PRN Q2HR PRN IV SEVERE PAIN 7-10 Last administered on 06/29/19 11:50; Start 06/29/19 at 00:00; Stop 06/29/19 at 18:02; Status DC Acetaminophen (Tylenol Supp) 650 mg PRN Q6HRS PRN RC MILD PAIN / TEMP Last administered on 06/29/19 03:11; Start 06/29/19 at 03:00 Metoprolol Tartrate (Lopressor Vial) 2.5 mg PRN Q4HRS PRN IVP HEART RATE Last administered on 06/29/19 13:18; Start 06/29/19 at 03:00 Amlodipine Besylate (Norvasc) 5 mg DAILY PO Last administered on 07/01/19at 09:00; Start 06/30/19 at 09:00 Donepezil HCl (Aricept) 5 mg BID PEG Last administered on 07/01/19 09:01; Start 06/29/19 at 21:00 Ferrous Sulfate (Feosol) 325 mg DAILY08 PO Last administered on 07/01/19 09:01; Start 06/30/19 at 08:00 Metoclopramide HCl (Reglan) 5 mg QIDACHS PO Last administered on 06/30/19 17:11; Start 06/29/19 at 16:45 Ondansetron HCl (Zofran Odt) 4 mg QIDPRN PRN PEG NAUSEA/VOMITING Last administered on 06/30/19at 20:45; Start 06/29/19 at 16:45 Oxycodone/ Acetaminophen (Percocet 7.5/ 325) 1 tab PRN QID PRN PO MODERATE TO SEVERE PAIN Last administered on 07/01/19at 12:09; Start 06/29/19 at 16:45 Pantoprazole Sodium (Protonix) 40 mg BIDAC PO ; Start 06/29/19 at 17:00; Stop 06/29/19 at 17:08; Status DC Losartan Potassium (Cozaar) 100 mg DAILY PO Last administered on 07/01/19at 09:00; Start 06/30/19 at 09:00 Gabapentin (Neurontin) 300 mg HS PO Last administered on 06/30/19at 20:45; Start 06/29/19 at 21:00 Lorazepam (Ativan) 0.5 mg DAILY PO Last administered on 07/01/19at 09:01; Start 06/30/19 at 09:00 Fentanyl (Duragesic 50mcg/ Hr Patch) 1 patch Q3DAYS TD ; Start 06/29/19 at 17:00; Stop 06/29/19 at 16:57; Status DC Amlodipine Besylate (Norvasc) 5 mg 1X ONCE PO Last administered on 06/29/19at 17:17; Start 06/29/19 at 17:00; Stop 06/29/19 at 17:01; Status DC Losartan Potassium (Cozaar) 100 mg 1X ONCE PO Last administered on 06/29/19at 17:17; Start 06/29/19 at 17:00; Stop 06/29/19 at 17:01; Status DC Fentanyl (Duragesic 50mcg/ Hr Patch) 1 patch Q3DAYS TD Last administered on 06/30/19at 08:52; Start 06/30/19 at 09:00 Lansoprazole (Prevacid) 30 mg BIDBFRMEAL FT Last administered on 07/01/19at 12:10; Start 06/29/19 at 17:30 Active Scripts Active Ferrous Sulfate 325 Mg Tablet 1 Tab PO DAILY Percocet 7.5-325 Mg Tablet (Oxycodone/Acetaminophen) 1 Each Tablet 1 Tab PO QID PRN MDD 1 FENTANYL 50mcg/hr (Fentanyl) 1 Each Patch.td72 1 Patch TP Q3DAYS MDD 1 Culturelle (Lactobacillus Rhamnosus Gg) 1 Each Cap.sprink 1 Cap PO BID 30 Days Reported Ativan (Lorazepam) 0.5 Mg Tablet 0.5 Mg PO DAILY Gabapentin (Gabapentin) 300 Mg Capsule 300 Mg PO HS Diovan (Valsartan) 160 Mg Tablet 160 Mg PO DAILY Albuterol Sulfate Neb Soln (Albuterol Sulfate) 0.63 Mg/3 Ml Vial.neb 1 Vial NEB QID Gabapentin (Gabapentin) 300 Mg Capsule 300 Mg PO BID PRN Amlodipine Besylate 5 Mg Tablet 5 Mg PO DAILY Pantoprazole Sodium (Pantoprazole Sodium) 40 Mg Tablet.dr 40 Mg PEG BID Donepezil Hcl 5 Mg Tablet 5 Mg PEG BID Reglan (Metoclopramide Hcl) 10 Mg Tablet 5 Mg PO QIDACHS Cyproheptadine Hcl 2 Mg/5 Ml Syrup 10 Ml PEG TID Ondansetron Odt (Ondansetron) 4 Mg Tab.rapdis 4 Mg PEG QIDPRN PRN Vitals/I & O Vital Sign - Last 24 Hours 06/30/19 06/30/19 06/30/19 06/30/19 15:29 16:00 16:00 17:00 Temp 97.9 97.9 Pulse 80 83 Resp 19 21 B/P (MAP) 138/62 (87) 160/77 (104) Pulse Ox 100 100 100 O2 Delivery Tracheal Collar Tracheal Collar Trach Collar Tracheal Collar O2 Flow Rate 8.0 10.0 10.0 10.0 06/30/19 06/30/19 06/30/19 06/30/19 17:11 18:00 19:00 20:00 Temp 97.9 97.9 Pulse 82 84 78 Resp 21 18 17 16 B/P (MAP) 175/85 (115) 175/85 (115) 144/65 (91) Pulse Ox 100 100 100 100 O2 Delivery Tracheal Collar Tracheal Collar Tracheal Collar Tracheal Collar O2 Flow Rate 10.0 10.0 10.0 10.0 06/30/19 06/30/19 06/30/19 06/30/19 20:00 20:45 20:46 21:00 Pulse 80 Resp 20 18 B/P (MAP) 174/86 (115) Pulse Ox 100 100 100 O2 Delivery Trach Collar Tracheal Collar Tracheal Collar Tracheal Collar O2 Flow Rate 10.0 8.0 10.0 06/30/19 06/30/19 06/30/19 07/01/19 21:50 22:00 23:00 00:00 Pulse 90 81 Resp 17 17 B/P (MAP) 146/63 (90) 125/60 (81) Pulse Ox 100 100 100 O2 Delivery Tracheal Collar Tracheal Collar Tracheal Collar Mechanical Ventilator O2 Flow Rate 10.0 10.0 10.0 07/01/19 07/01/19 07/01/19 07/01/19 00:04 01:00 01:12 02:00 Temp 99.0 99.0 Pulse 63 Resp 16 B/P (MAP) 112/57 (75) Pulse Ox 100 100 100 100 O2 Delivery Ventilator Ventilator Ventilator O2 Flow Rate 10.0 07/01/19 07/01/19 07/01/19 07/01/19 02:00 02:32 03:00 04:00 Pulse 63 60 Resp 15 18 B/P (MAP) 127/61 (83) 147/69 (95) Pulse Ox 100 100 100 O2 Delivery Ventilator Ventilator Ventilator Mechanical Ventilator 07/01/19 07/01/19 07/01/19 07/01/19 04:00 04:25 05:00 06:00 Temp 98.8 98.8 Pulse 60 72 64 Resp 15 18 18 B/P (MAP) 147/69 (95) 161/78 (105) 146/67 (93) Pulse Ox 100 100 100 100 O2 Delivery Ventilator Ventilator Ventilator Ventilator 07/01/19 07/01/19 07/01/19 07/01/19 06:09 06:18 07:00 08:00 Pulse 72 Resp 16 B/P (MAP) 111/50 (70) Pulse Ox 100 100 100 O2 Delivery Ventilator Ventilator Ventilator Trach Collar O2 Flow Rate 10.0 07/01/19 07/01/19 07/01/19 07/01/19 08:00 08:11 08:12 08:53 Temp 99.0 99.0 Pulse 72 Resp 19 17 18 B/P (MAP) 112/53 (72) Pulse Ox 100 100 100 100 O2 Delivery Ventilator Ventilator Tracheal Collar Ventilator O2 Flow Rate 10.0 07/01/19 07/01/19 07/01/19 07/01/19 09:00 09:00 09:00 10:00 Pulse 68 66 68 74 Resp 16 20 B/P (MAP) 117/55 (75) 117/55 117/55 140/65 (90) Pulse Ox 100 100 O2 Delivery Tracheal Collar Tracheal Collar O2 Flow Rate 10.0 10.0 07/01/19 07/01/19 07/01/19 07/01/19 11:00 12:00 12:00 12:09 Temp 98.0 98.0 Pulse 102 92 Resp 33 25 24 B/P (MAP) 141/67 (91) 143/36 (71) Pulse Ox 100 100 100 O2 Delivery Tracheal Collar Trach Collar Tracheal Collar Tracheal Collar O2 Flow Rate 10.0 10.0 10.0 10.0 07/01/19 07/01/19 07/01/19 07/01/19 13:00 13:02 13:54 14:00 Pulse 86 84 Resp 20 20 20 B/P (MAP) 122/53 (76) 128/59 (82) Pulse Ox 100 100 100 100 O2 Delivery Tracheal Collar Tracheal Collar Tracheal Collar Tracheal Collar O2 Flow Rate 10.0 8.0 10.0 10.0 Intake and Output 06/30/19 06/30/19 07/01/19 14:59 22:59 06:59 Intake Total 870 ml 2415 ml 660 ml Output Total 580 ml 1510 ml 765 ml Balance 290 ml 905 ml -105 ml Nutrition Consultation Dietary Evaluation: Recommendations by RD: Increase Calorie Intake Comments: Continue w/TFs as ordered - Jevity 1.5 bolus feeds 4x/day (1 carton/237 ml per feeding) w/200 ml water flushes w/each feeding Expected Outcomes/Goals: Initiation of TFs within 24 - 48 hrs - met, new goal established New goal 07/01: TF infusion to meet >75% est needs Malnutrition Findings: Body Fat Depletion (Non Severe: Mod to Severe Weight Status: Underweight RUDDY QUEZADA MD Jul 01, 2019 15:28
[2019-07-01] MEDS: ENOXAPARIN 40 MG/0.4 ML SYRINGE. SQ SCH (16:10)
[2019-07-01] MEDS: GABAPENTIN 300 MG CAPSULE. PO SCH (21:13)
[2019-07-02] VITALS (16 sets, daily range): BP systolic 145–186; BP diastolic 71–96
[2019-07-02] MEDS: PIPERACILLIN/TAZOBACTAM 3.375 GM in IV NORMAL SALINE 50ML 50 ML IV SCH ×3 (00:02→11:43)
[2019-07-02] MEDS: VANCOMYCIN 1 GM in IV NORMAL SALINE 250ML 250 ML IV SCH ×2 (02:59→15:25)
[2019-07-02] MEDS: oxyCODONE/APAP 7.5/325 1 TAB TABLET PO PRN ×2 (05:10→15:25)
[2019-07-02 05:58] LABS: BASO % 1 % (0-3); EOS # 0.4 x10^3/uL (0.0-0.7); EOS % 7 % (0-3); HEMATOCRIT 28.6 % (36.0-47.0); LYMPH # 1.9 x10^3/uL (1.0-4.8); LYMPH % 28 % (24-48); MEAN CORPUSCULAR HEMOGLOBIN 27 pg (25-35); MEAN CORPUSCULAR HGB CONC 32 g/dL (31-37); MEAN CORPUSCULAR VOLUME 85 fL (79-100); MONO # 0.4 x10^3/uL (0.0-1.1); MONO % 5 % (0-9); NEUT % 60 % (31-73); PLATELET COUNT 294 x10^3/uL (140-400); RED BLOOD COUNT 3.38 x10^6/uL (3.50-5.40); RED CELL DISTRIBUTION WIDTH 16.2 % (11.5-14.5); WHITE BLOOD COUNT 6.7 x10^3/uL (4.0-11.0)
[2019-07-02 06:24] LABS: ALBUMIN 2.1 g/dL (3.4-5.0); ALBUMIN/GLOBULIN RATIO 0.5 (1.0-1.7); CALCIUM 8.8 mg/dL (8.5-10.1); CREATININE 0.8 mg/dL (0.6-1.0); GFR 83.9; POTASSIUM 3.5 mmol/L (3.5-5.1); TOTAL BILIRUBIN 0.3 mg/dL (0.2-1.0); TOTAL PROTEIN 6.6 g/dL (6.4-8.2)
--- NOTE | 2019-07-02 06:44 | PDOC ---
PULMONARY PROGRESS NOTES Subjective on vent, mod large trach secretion, no pain, no sob, has cough Vitals Vital Signs Date Time Temp Pulse Resp B/P (MAP) Pulse Ox O2 Delivery O2 Flow Rate FiO2 07/02/19 06:10 20 07/02/19 06:00 71 155/73 (100) 100 Ventilator 07/02/19 04:00 97.2 97.2 07/02/19 04:00 10.0 Comments ros as mentioned as above other sys otherwise neg ROS: No Nausea, No Chest Pain, No Abdominal Pain, No Increase Cough General: Alert, No acute distress HEENT: Other (nc at perrl nose throat clear neck trach site ok no lad no thyromegaly) Lungs: Crackles Cardiovascular: S1, S2 Abdomen: Soft, Non-tender Neuro Exam: Alert Extremities: No Edema Skin: Warm Labs Laboratory Tests Test 07/01/19 06:03 07/02/19 05:54 White Blood Count 7.4 x10^3/uL (4.0-11.0) 6.7 x10^3/uL (4.0-11.0) Red Blood Count 3.27 x10^6/uL (3.50-5.40) 3.38 x10^6/uL (3.50-5.40) Hemoglobin 8.8 g/dL (12.0-15.5) 9.0 g/dL (12.0-15.5) Hematocrit 27.7 % (36.0-47.0) 28.6 % (36.0-47.0) Mean Corpuscular Volume 85 fL (79-100) 85 fL (79-100) Mean Corpuscular Hemoglobin 27 pg (25-35) 27 pg (25-35) Mean Corpuscular Hemoglobin Concent 32 g/dL (31-37) 32 g/dL (31-37) Red Cell Distribution Width 16.1 % (11.5-14.5) 16.2 % (11.5-14.5) Platelet Count 267 x10^3/uL (140-400) 294 x10^3/uL (140-400) Neutrophils (%) (Auto) 63 % (31-73) 60 % (31-73) Lymphocytes (%) (Auto) 24 % (24-48) 28 % (24-48) Monocytes (%) (Auto) 7 % (0-9) 5 % (0-9) Eosinophils (%) (Auto) 6 % (0-3) 7 % (0-3) Basophils (%) (Auto) 1 % (0-3) 1 % (0-3) Neutrophils # (Auto) 4.7 x10^3/uL (1.8-7.7) 4.0 x10^3/uL (1.8-7.7) Lymphocytes # (Auto) 1.7 x10^3/uL (1.0-4.8) 1.9 x10^3/uL (1.0-4.8) Monocytes # (Auto) 0.5 x10^3/uL (0.0-1.1) 0.4 x10^3/uL (0.0-1.1) Eosinophils # (Auto) 0.5 x10^3/uL (0.0-0.7) 0.4 x10^3/uL (0.0-0.7) Basophils # (Auto) 0.0 x10^3/uL (0.0-0.2) 0.0 x10^3/uL (0.0-0.2) Sodium Level 145 mmol/L (136-145) Potassium Level 3.7 mmol/L (3.5-5.1) Chloride Level 110 mmol/L (98-107) Carbon Dioxide Level 29 mmol/L (21-32) Anion Gap 6 (6-14) Blood Urea Nitrogen 7 mg/dL (7-20) Creatinine 0.9 mg/dL (0.6-1.0) Estimated GFR (Cockcroft-Gault) 73.3 BUN/Creatinine Ratio 8 (6-20) Glucose Level 79 mg/dL (70-99) Calcium Level 8.3 mg/dL (8.5-10.1) Total Bilirubin 0.4 mg/dL (0.2-1.0) Aspartate Amino Transf (AST/SGOT) 17 U/L (15-37) Alanine Aminotransferase (ALT/SGPT) 10 U/L (14-59) Alkaline Phosphatase 67 U/L (46-116) Total Protein 6.5 g/dL (6.4-8.2) Albumin 2.0 g/dL (3.4-5.0) Albumin/Globulin Ratio 0.4 (1.0-1.7) Laboratory Tests Test 07/02/19 05:54 White Blood Count 6.7 x10^3/uL (4.0-11.0) Red Blood Count 3.38 x10^6/uL (3.50-5.40) Hemoglobin 9.0 g/dL (12.0-15.5) Hematocrit 28.6 % (36.0-47.0) Mean Corpuscular Volume 85 fL (79-100) Mean Corpuscular Hemoglobin 27 pg (25-35) Mean Corpuscular Hemoglobin Concent 32 g/dL (31-37) Red Cell Distribution Width 16.2 % (11.5-14.5) Platelet Count 294 x10^3/uL (140-400) Neutrophils (%) (Auto) 60 % (31-73) Lymphocytes (%) (Auto) 28 % (24-48) Monocytes (%) (Auto) 5 % (0-9) Eosinophils (%) (Auto) 7 % (0-3) Basophils (%) (Auto) 1 % (0-3) Neutrophils # (Auto) 4.0 x10^3/uL (1.8-7.7) Lymphocytes # (Auto) 1.9 x10^3/uL (1.0-4.8) Monocytes # (Auto) 0.4 x10^3/uL (0.0-1.1) Eosinophils # (Auto) 0.4 x10^3/uL (0.0-0.7) Basophils # (Auto) 0.0 x10^3/uL (0.0-0.2) Medications Active Scripts Medications Dose Route/Sig Max Daily Dose Days Date Category Ativan (Lorazepam) 0.5 Mg Tablet 0.5 Mg PO DAILY 06/28/19 Reported Gabapentin (Gabapentin) 300 Mg Capsule 300 Mg PO HS 06/28/19 Reported Diovan (Valsartan) 160 Mg Tablet 160 Mg PO DAILY 05/23/19 Reported Ferrous Sulfate 325 Mg Tablet 1 Tab PO DAILY 01/20/19 Rx Percocet 7.5-325 Mg Tablet (Oxycodone/Acetaminophen) 1 Each Tablet 1 Tab PO QID PRN MDD 1 12/09/18 Rx FENTANYL 50mcg/hr (Fentanyl) 1 Each Patch.td72 1 Patch TP Q3DAYS MDD 1 12/09/18 Rx Albuterol Sulfate Neb Soln (Albuterol Sulfate) 0.63 Mg/3 Ml Vial.neb 1 Vial NEB QID 12/02/18 Reported Gabapentin (Gabapentin) 300 Mg Capsule 300 Mg PO BID PRN 10/19/18 Reported Amlodipine Besylate 5 Mg Tablet 5 Mg PO DAILY 10/19/18 Reported Culturelle (Lactobacillus Rhamnosus Gg) 1 Each Cap.sprink 1 Cap PO BID 30 07/07/17 Rx Pantoprazole Sodium (Pantoprazole Sodium) 40 Mg Tablet. 40 Mg PEG BID 03/11/17 Reported Donepezil Hcl 5 Mg Tablet 5 Mg PEG BID 03/11/17 Reported Reglan (Metoclopramide Hcl) 10 Mg Tablet 5 Mg PO QIDACHS 03/11/17 Reported Cyproheptadine Hcl 2 Mg/5 Ml Syrup 10 Ml PEG TID 03/11/17 Reported Ondansetron Odt (Ondansetron) 4 Mg Tab.rapdis 4 Mg PEG QIDPRN PRN 06/19/14 Reported Impression . IMPRESSION: 1. Acute on chronic respiratory failure. 2. Bilateral pulmonary infiltrates, best seen on CT abdomen revealing evidence of consolidation. 3. Suspect pneumonia, gram-positive/gram-negative. 4. Lung cancer, status post tracheotomy. 5. Severe protein malnutrition, present upon admission. 6. History of methicillin-resistant Staphylococcus aureus and Pseudomonas infection and pneumonia in the past. 7. Status post PEG. 8. Leukocytosis. resolved Plan . ANTIBX, sputum resistant pseudomonas id consulted off STEROIDS WILL NEED VENT QHS LOTS OF SECRETIONS AT TIMES RESP RATE RISES NUTRITION SUPPORT D/W RT, rn, SUZANNE Adams MD Jul 02, 2019 06:44
[2019-07-02] MEDS: METOCLOPRAMIDE 5 MG TABLET. PO SCH ×4 (08:12→20:53)
[2019-07-02] MEDS: LOSARTAN POTASSIUM 50 MG TABLET. PO SCH (08:12)
[2019-07-02] MEDS: DONEPEZIL HCL 5 MG TABLET. PEG SCH ×2 (08:12→20:53)
[2019-07-02] MEDS: FERROUS SULFATE 325 MG TABLET. PO SCH (08:12)
[2019-07-02] MEDS: LORazepam 0.5 MG TABLET PO SCH (08:12)
[2019-07-02] MEDS: amLODIPine BESYLATE 5 MG TABLET PO SCH (08:12)
[2019-07-02] MEDS: IV NORMAL SALINE 1000ML BAG 1,000 ML IV SCH (08:13)
[2019-07-02] MEDS: ALBUTEROL SULFATE 2.5 MG/3 ML NEBU. NEB SCH ×3 (09:25→17:10)
--- NOTE | 2019-07-02 11:07 | NUR ---
Order received from Dr. Watson for MOF status.
--- NOTE | 2019-07-02 12:30 | NUR ---
Pt transferred to room 554. Belongings transferred with pt.
--- NOTE | 2019-07-02 12:33 | PDOC ---
PROGRESS NOTES Chief Complaint Chief Complaint Aspiration Pneumonia. 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 s/p radiation and chemo, trach done at [facility] July 2015. now s/p Erbitux, completed here in September 2015. 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 History of Present Illness History of Present Illness doing better growing MDR pseudomonas out of sputum, may be colonized, consult ID, try to DC soon She was seen and examined in the ICU. She appeared with no acute distress, and her trach. shield was intact. needs vent at night, Vitals Vitals Vital Signs Date Time Temp Pulse Resp B/P (MAP) Pulse Ox O2 Delivery O2 Flow Rate FiO2 07/02/19 11:00 91 21 158/71 (100) 100 Tracheal Collar 07/02/19 09:37 8.0 07/02/19 08:00 98.8 98.8 Physical Exam General: Alert, Oriented X3, Cooperative, No acute distress, Other (Neck: Trach. collar intact ) Heart: Regular rate, Normal S1, Normal S2, No murmurs Lungs: Wheezing, Crackles Abdomen: Normal bowel sounds, Soft, No tenderness, No hepatosplenomegaly Extremities: No clubbing, No cyanosis, No edema, Normal pulses Skin: No rashes, No breakdown, No significant lesion Labs LABS Laboratory Tests Test 07/02/19 05:54 White Blood Count 6.7 x10^3/uL (4.0-11.0) Red Blood Count 3.38 x10^6/uL (3.50-5.40) Hemoglobin 9.0 g/dL (12.0-15.5) Hematocrit 28.6 % (36.0-47.0) Mean Corpuscular Volume 85 fL (79-100) Mean Corpuscular Hemoglobin 27 pg (25-35) Mean Corpuscular Hemoglobin Concent 32 g/dL (31-37) Red Cell Distribution Width 16.2 % (11.5-14.5) Platelet Count 294 x10^3/uL (140-400) Neutrophils (%) (Auto) 60 % (31-73) Lymphocytes (%) (Auto) 28 % (24-48) Monocytes (%) (Auto) 5 % (0-9) Eosinophils (%) (Auto) 7 % (0-3) Basophils (%) (Auto) 1 % (0-3) Neutrophils # (Auto) 4.0 x10^3/uL (1.8-7.7) Lymphocytes # (Auto) 1.9 x10^3/uL (1.0-4.8) Monocytes # (Auto) 0.4 x10^3/uL (0.0-1.1) Eosinophils # (Auto) 0.4 x10^3/uL (0.0-0.7) Basophils # (Auto) 0.0 x10^3/uL (0.0-0.2) Sodium Level 143 mmol/L (136-145) Potassium Level 3.5 mmol/L (3.5-5.1) Chloride Level 107 mmol/L (98-107) Carbon Dioxide Level 29 mmol/L (21-32) Anion Gap 7 (6-14) Blood Urea Nitrogen 7 mg/dL (7-20) Creatinine 0.8 mg/dL (0.6-1.0) Estimated GFR (Cockcroft-Gault) 83.9 BUN/Creatinine Ratio 9 (6-20) Glucose Level 80 mg/dL (70-99) Calcium Level 8.8 mg/dL (8.5-10.1) Total Bilirubin 0.3 mg/dL (0.2-1.0) Aspartate Amino Transf (AST/SGOT) 13 U/L (15-37) Alanine Aminotransferase (ALT/SGPT) 9 U/L (14-59) Alkaline Phosphatase 64 U/L (46-116) Total Protein 6.6 g/dL (6.4-8.2) Albumin 2.1 g/dL (3.4-5.0) Albumin/Globulin Ratio 0.5 (1.0-1.7) Assessment and Plan Assessmemt and Plan Problems Medical Problems: (1) Aspiration pneumonia Status: Acute Comment Review of Relevant I have reviewed the following items miko (where applicable) has been applied. Labs Laboratory Tests Test 07/01/19 06:03 07/02/19 05:54 White Blood Count 7.4 x10^3/uL (4.0-11.0) 6.7 x10^3/uL (4.0-11.0) Red Blood Count 3.27 x10^6/uL (3.50-5.40) 3.38 x10^6/uL (3.50-5.40) Hemoglobin 8.8 g/dL (12.0-15.5) 9.0 g/dL (12.0-15.5) Hematocrit 27.7 % (36.0-47.0) 28.6 % (36.0-47.0) Mean Corpuscular Volume 85 fL (79-100) 85 fL (79-100) Mean Corpuscular Hemoglobin 27 pg (25-35) 27 pg (25-35) Mean Corpuscular Hemoglobin Concent 32 g/dL (31-37) 32 g/dL (31-37) Red Cell Distribution Width 16.1 % (11.5-14.5) 16.2 % (11.5-14.5) Platelet Count 267 x10^3/uL (140-400) 294 x10^3/uL (140-400) Neutrophils (%) (Auto) 63 % (31-73) 60 % (31-73) Lymphocytes (%) (Auto) 24 % (24-48) 28 % (24-48) Monocytes (%) (Auto) 7 % (0-9) 5 % (0-9) Eosinophils (%) (Auto) 6 % (0-3) 7 % (0-3) Basophils (%) (Auto) 1 % (0-3) 1 % (0-3) Neutrophils # (Auto) 4.7 x10^3/uL (1.8-7.7) 4.0 x10^3/uL (1.8-7.7) Lymphocytes # (Auto) 1.7 x10^3/uL (1.0-4.8) 1.9 x10^3/uL (1.0-4.8) Monocytes # (Auto) 0.5 x10^3/uL (0.0-1.1) 0.4 x10^3/uL (0.0-1.1) Eosinophils # (Auto) 0.5 x10^3/uL (0.0-0.7) 0.4 x10^3/uL (0.0-0.7) Basophils # (Auto) 0.0 x10^3/uL (0.0-0.2) 0.0 x10^3/uL (0.0-0.2) Sodium Level 145 mmol/L (136-145) 143 mmol/L (136-145) Potassium Level 3.7 mmol/L (3.5-5.1) 3.5 mmol/L (3.5-5.1) Chloride Level 110 mmol/L (98-107) 107 mmol/L (98-107) Carbon Dioxide Level 29 mmol/L (21-32) 29 mmol/L (21-32) Anion Gap 6 (6-14) 7 (6-14) Blood Urea Nitrogen 7 mg/dL (7-20) 7 mg/dL (7-20) Creatinine 0.9 mg/dL (0.6-1.0) 0.8 mg/dL (0.6-1.0) Estimated GFR (Cockcroft-Gault) 73.3 83.9 BUN/Creatinine Ratio 8 (6-20) 9 (6-20) Glucose Level 79 mg/dL (70-99) 80 mg/dL (70-99) Calcium Level 8.3 mg/dL (8.5-10.1) 8.8 mg/dL (8.5-10.1) Total Bilirubin 0.4 mg/dL (0.2-1.0) 0.3 mg/dL (0.2-1.0) Aspartate Amino Transf (AST/SGOT) 17 U/L (15-37) 13 U/L (15-37) Alanine Aminotransferase (ALT/SGPT) 10 U/L (14-59) 9 U/L (14-59) Alkaline Phosphatase 67 U/L (46-116) 64 U/L (46-116) Total Protein 6.5 g/dL (6.4-8.2) 6.6 g/dL (6.4-8.2) Albumin 2.0 g/dL (3.4-5.0) 2.1 g/dL (3.4-5.0) Albumin/Globulin Ratio 0.4 (1.0-1.7) 0.5 (1.0-1.7) Laboratory Tests Test 07/02/19 05:54 White Blood Count 6.7 x10^3/uL (4.0-11.0) Red Blood Count 3.38 x10^6/uL (3.50-5.40) Hemoglobin 9.0 g/dL (12.0-15.5) Hematocrit 28.6 % (36.0-47.0) Mean Corpuscular Volume 85 fL (79-100) Mean Corpuscular Hemoglobin 27 pg (25-35) Mean Corpuscular Hemoglobin Concent 32 g/dL (31-37) Red Cell Distribution Width 16.2 % (11.5-14.5) Platelet Count 294 x10^3/uL (140-400) Neutrophils (%) (Auto) 60 % (31-73) Lymphocytes (%) (Auto) 28 % (24-48) Monocytes (%) (Auto) 5 % (0-9) Eosinophils (%) (Auto) 7 % (0-3) Basophils (%) (Auto) 1 % (0-3) Neutrophils # (Auto) 4.0 x10^3/uL (1.8-7.7) Lymphocytes # (Auto) 1.9 x10^3/uL (1.0-4.8) Monocytes # (Auto) 0.4 x10^3/uL (0.0-1.1) Eosinophils # (Auto) 0.4 x10^3/uL (0.0-0.7) Basophils # (Auto) 0.0 x10^3/uL (0.0-0.2) Sodium Level 143 mmol/L (136-145) Potassium Level 3.5 mmol/L (3.5-5.1) Chloride Level 107 mmol/L (98-107) Carbon Dioxide Level 29 mmol/L (21-32) Anion Gap 7 (6-14) Blood Urea Nitrogen 7 mg/dL (7-20) Creatinine 0.8 mg/dL (0.6-1.0) Estimated GFR (Cockcroft-Gault) 83.9 BUN/Creatinine Ratio 9 (6-20) Glucose Level 80 mg/dL (70-99) Calcium Level 8.8 mg/dL (8.5-10.1) Total Bilirubin 0.3 mg/dL (0.2-1.0) Aspartate Amino Transf (AST/SGOT) 13 U/L (15-37) Alanine Aminotransferase (ALT/SGPT) 9 U/L (14-59) Alkaline Phosphatase 64 U/L (46-116) Total Protein 6.6 g/dL (6.4-8.2) Albumin 2.1 g/dL (3.4-5.0) Albumin/Globulin Ratio 0.5 (1.0-1.7) Microbiology 06/27/19 - Final, Complete 06/27/19 - Final, Complete 06/27/19 - Final, Complete 06/27/19 Gram Stain Evaluation - Final, Complete 06/27/19 Sputum Culture - Final, Complete 06/27/19 Sputum Result 1 - Final, Complete 06/27/19 Sputum Result 2 - Final, Complete 06/27/19 Antimicrobic Susceptibility - Final, Complete 06/27/19 Blood Culture - Preliminary, Resulted NO GROWTH AFTER 4 DAYS Medications Current Medications Albuterol/ Ipratropium (Duoneb) 3 ml 1X ONCE NEB Last administered on 06/27/19at 20:51; Start 06/27/19 at 20:15; Stop 06/27/19 at 20:16; Status DC Sodium Chloride 1,000 ml @ 125 mls/hr 1X ONCE IV Last administered on 06/27/19at 21:15; Start 06/27/19 at 20:15; Stop 06/28/19 at 04:14; Status DC Lorazepam (Ativan Inj) 2 mg 1X ONCE IVP Last administered on 06/27/19at 20:56; Start 06/27/19 at 21:00; Stop 06/27/19 at 21:01; Status DC Vancomycin HCl 250 ml @ 250 mls/hr 1X ONCE IV ; Start 06/27/19 at 21:30; Stop 06/27/19 at 22:29; Status UNV Piperacillin Sod/ Tazobactam Sod 3.375 gm/Sodium Chloride 50 ml @ 100 mls/hr 1X ONCE IV Last administered on 06/27/19at 22:33; Start 06/27/19 at 21:30; Stop 06/27/19 at 21:59; Status DC Vancomycin HCl 1.25 gm/Sodium Chloride 250 ml @ 167 mls/hr ONCE ONCE IV Last administered on 06/27/19at 23:50; Start 06/27/19 at 21:45; Stop 06/27/19 at 23:14; Status DC Ondansetron HCl (Zofran) 4 mg PRN Q8HRS PRN IV NAUSEA/VOMITING 1ST CHOICE; Start 06/27/19 at 22:30; Stop 06/28/19 at 22:29; Status DC Morphine Sulfate (Morphine Sulfate) 2 mg PRN Q2HR PRN IV SEVERE PAIN 7-10; Start 06/27/19 at 22:30; Stop 06/28/19 at 22:29; Status DC Albuterol/ Ipratropium (Duoneb) 3 ml RTQID NEB Last administered on 06/28/19at 08:38; Start 06/28/19 at 08:00; Stop 06/28/19 at 16:03; Status DC Norepinephrine Bitartrate 250 ml @ 9.355 mls/ hr CONT PRN IV SEE I/O RECORD Last administered on 06/28/19at 00:22; Start 06/28/19 at 00:15 Piperacillin Sod/ Tazobactam Sod (Zosyn Per Pharmacy) 1 each PRN DAILY PRN MC SEE COMMENTS; Start 06/28/19 at 00:15 Vancomycin HCl (Vanco Per Pharmacy) 1 each PRN DAILY PRN MC SEE COMMENTS Last administered on 07/01/19at 10:58; Start 06/28/19 at 00:15 Piperacillin Sod/ Tazobactam Sod 3.375 gm/Sodium Chloride 50 ml @ 100 mls/hr Q6HRS IV Last administered on 07/02/19at 11:43; Start 06/28/19 at 06:00 Vancomycin HCl 750 mg/Sodium Chloride 250 ml @ 250 mls/hr Q24H IV ; Start 06/29/19 at 00:00; Stop 06/28/19 at 14:07; Status DC Vancomycin HCl (Vancomycin Trough Level) 1 each 1X ONCE MC Last administered on 06/29/19at 14:30; Start 06/29/19 at 14:30; Stop 06/29/19 at 14:31; Status DC Sodium Chloride 1,000 ml @ 75 mls/hr [id number] IV Last administered on 07/02/19at 08:13; Start 06/28/19 at 07:45 Albuterol Sulfate (Ventolin Neb Soln) 2.5 mg QID NEB Last administered on 07/02/19at 09:25; Start 06/28/19 at 13:00 Albuterol Sulfate (Ventolin Neb Soln) 2.5 mg PRN Q3HRS PRN NEB SOA; Start 06/28/19 at 12:00 Enoxaparin Sodium (Lovenox 40mg Syringe) 40 mg Q24H SQ Last administered on 07/01/19 16:10; Start 06/28/19 at 15:00 Vancomycin HCl 1 gm/Sodium Chloride 250 ml @ 250 mls/hr Q12H IV Last administered on 07/02/19 02:59; Start 06/28/19 at 15:00 Morphine Sulfate (Morphine Sulfate) 2 mg PRN Q2HR PRN IV SEVERE PAIN 7-10 Last administered on 06/29/19 11:50; Start 06/29/19 at 00:00; Stop 06/29/19 at 18:02; Status DC Acetaminophen (Tylenol Supp) 650 mg PRN Q6HRS PRN RC MILD PAIN / TEMP Last administered on 06/29/19 03:11; Start 06/29/19 at 03:00 Metoprolol Tartrate (Lopressor Vial) 2.5 mg PRN Q4HRS PRN IVP HEART RATE Last administered on 06/29/19 13:18; Start 06/29/19 at 03:00 Amlodipine Besylate (Norvasc) 5 mg DAILY PO Last administered on 07/02/19 08:12; Start 06/30/19 at 09:00 Donepezil HCl (Aricept) 5 mg BID PEG Last administered on 07/02/19 08:12; Start 06/29/19 at 21:00 Ferrous Sulfate (Feosol) 325 mg DAILY08 PO Last administered on 07/02/19 08:12; Start 06/30/19 at 08:00 Metoclopramide HCl (Reglan) 5 mg QIDACHS PO Last administered on 07/02/19 11:43; Start 06/29/19 at 16:45 Ondansetron HCl (Zofran Odt) 4 mg QIDPRN PRN PEG NAUSEA/VOMITING Last administered on 06/30/19 20:45; Start 06/29/19 at 16:45 Oxycodone/ Acetaminophen (Percocet 7.5/ 325) 1 tab PRN QID PRN PO MODERATE TO SEVERE PAIN Last administered on 07/02/19 05:10; Start 06/29/19 at 16:45 Pantoprazole Sodium (Protonix) 40 mg BIDAC PO ; Start 06/29/19 at 17:00; Stop 06/29/19 at 17:08; Status DC Losartan Potassium (Cozaar) 100 mg DAILY PO Last administered on 07/02/19at 08:12; Start 06/30/19 at 09:00 Gabapentin (Neurontin) 300 mg HS PO Last administered on 07/01/19at 21:13; Start 06/29/19 at 21:00 Lorazepam (Ativan) 0.5 mg DAILY PO Last administered on 07/02/19at 08:12; Start 06/30/19 at 09:00 Fentanyl (Duragesic 50mcg/ Hr Patch) 1 patch Q3DAYS TD ; Start 06/29/19 at 17:00; Stop 06/29/19 at 16:57; Status DC Amlodipine Besylate (Norvasc) 5 mg 1X ONCE PO Last administered on 06/29/19at 17:17; Start 06/29/19 at 17:00; Stop 06/29/19 at 17:01; Status DC Losartan Potassium (Cozaar) 100 mg 1X ONCE PO Last administered on 06/29/19at 17:17; Start 06/29/19 at 17:00; Stop 06/29/19 at 17:01; Status DC Fentanyl (Duragesic 50mcg/ Hr Patch) 1 patch Q3DAYS TD Last administered on 06/30/19at 08:52; Start 06/30/19 at 09:00 Lansoprazole (Prevacid) 30 mg BIDBFRMEAL FT Last administered on 07/01/19at 17:28; Start 06/29/19 at 17:30 Active Scripts Active Ferrous Sulfate 325 Mg Tablet 1 Tab PO DAILY Percocet 7.5-325 Mg Tablet (Oxycodone/Acetaminophen) 1 Each Tablet 1 Tab PO QID PRN MDD 1 FENTANYL 50mcg/hr (Fentanyl) 1 Each Patch.td72 1 Patch TP Q3DAYS MDD 1 Culturelle (Lactobacillus Rhamnosus Gg) 1 Each Cap.sprink 1 Cap PO BID 30 Days Reported Ativan (Lorazepam) 0.5 Mg Tablet 0.5 Mg PO DAILY Gabapentin (Gabapentin) 300 Mg Capsule 300 Mg PO HS Diovan (Valsartan) 160 Mg Tablet 160 Mg PO DAILY Albuterol Sulfate Neb Soln (Albuterol Sulfate) 0.63 Mg/3 Ml Vial.neb 1 Vial NEB QID Gabapentin (Gabapentin) 300 Mg Capsule 300 Mg PO BID PRN Amlodipine Besylate 5 Mg Tablet 5 Mg PO DAILY Pantoprazole Sodium (Pantoprazole Sodium) 40 Mg Tablet.dr 40 Mg PEG BID Donepezil Hcl 5 Mg Tablet 5 Mg PEG BID Reglan (Metoclopramide Hcl) 10 Mg Tablet 5 Mg PO QIDACHS Cyproheptadine Hcl 2 Mg/5 Ml Syrup 10 Ml PEG TID Ondansetron Odt (Ondansetron) 4 Mg Tab.rapdis 4 Mg PEG QIDPRN PRN Vitals/I & O Vital Sign - Last 24 Hours 07/01/19 07/01/19 07/01/19 07/01/19 13:00 13:02 13:54 14:00 Pulse 86 84 Resp 20 20 20 B/P (MAP) 122/53 (76) 128/59 (82) Pulse Ox 100 100 100 100 O2 Delivery Tracheal Collar Tracheal Collar Tracheal Collar Tracheal Collar O2 Flow Rate 10.0 8.0 10.0 10.0 07/01/19 07/01/19 07/01/19 07/01/19 15:00 16:00 16:00 16:31 Temp 98.4 98.4 Pulse 78 77 Resp 18 22 B/P (MAP) 121/62 (81) 140/71 (94) Pulse Ox 100 100 100 O2 Delivery Tracheal Collar Trach Collar Tracheal Collar Tracheal Collar O2 Flow Rate 10.0 10.0 10.0 8.0 07/01/19 07/01/19 07/01/19 07/01/19 17:00 18:00 19:00 19:36 Pulse 78 86 84 Resp 16 20 19 B/P (MAP) 161/76 (104) 164/74 (104) 166/84 (111) Pulse Ox 100 100 100 97 O2 Delivery Tracheal Collar Tracheal Collar Tracheal Collar Tracheal Collar O2 Flow Rate 10.0 10.0 8.0 07/01/19 07/01/19 07/01/19 07/01/19 20:00 20:00 21:00 22:00 Temp 98.2 98.2 Pulse 86 84 92 Resp 15 15 21 B/P (MAP) 160/80 (106) 167/91 (116) 156/66 (96) Pulse Ox 100 100 100 O2 Delivery Trach Collar Tracheal Collar Tracheal Collar Tracheal Collar 07/01/19 07/01/19 07/01/19 07/01/19 22:55 23:00 23:30 23:55 Pulse 87 Resp 20 19 16 B/P (MAP) 164/74 (104) Pulse Ox 97 100 O2 Delivery Tracheal Collar Ventilator 07/02/19 07/02/19 07/02/19 07/02/19 00:00 00:00 01:00 02:00 Temp 98.4 98.4 Pulse 78 78 74 Resp 16 18 16 B/P (MAP) 164/81 (108) 145/78 (100) 158/78 (104) Pulse Ox 97 96 94 O2 Delivery Tracheal Collar Trach Collar Ventilator Tracheal Collar O2 Flow Rate 10.0 07/02/19 07/02/19 07/02/19 07/02/19 02:45 03:00 04:00 04:00 Temp 97.2 97.2 Pulse 68 73 Resp 19 19 B/P (MAP) 186/77 (113) 166/74 (104) Pulse Ox 100 94 93 O2 Delivery Ventilator Tracheal Collar Trach Collar Ventilator O2 Flow Rate 10.0 07/02/19 07/02/19 07/02/19 07/02/19 05:00 05:10 05:30 06:00 Pulse 72 71 Resp 20 20 15 B/P (MAP) 168/88 (114) 155/73 (100) Pulse Ox 94 100 100 O2 Delivery Ventilator Ventilator Ventilator 07/02/19 07/02/19 07/02/19 07/02/19 06:10 07:00 08:00 08:00 Temp 98.8 98.8 Pulse 67 72 Resp 20 15 20 B/P (MAP) 165/77 (106) 175/81 (112) Pulse Ox 100 100 O2 Delivery Ventilator Trach Collar Ventilator O2 Flow Rate 10.0 07/02/19 07/02/19 07/02/19 07/02/19 08:12 08:12 09:00 09:37 Pulse 67 67 68 Resp 20 B/P (MAP) 165/77 165/77 182/79 (113) Pulse Ox 100 100 O2 Delivery Tracheal Collar Tracheal Collar O2 Flow Rate 8.0 07/02/19 07/02/19 10:00 11:00 Pulse 86 91 Resp 24 21 B/P (MAP) 173/81 (111) 158/71 (100) Pulse Ox 100 100 O2 Delivery Tracheal Collar Tracheal Collar Intake and Output 07/01/19 07/01/19 07/02/19 14:59 22:59 06:59 Intake Total 2704 ml 2066 ml 30 ml Output Total 830 ml 1890 ml 700 ml Balance 1874 ml 176 ml -670 ml Nutrition Consultation Dietary Evaluation: Recommendations by RD: Increase Calorie Intake Comments: Continue w/TFs as ordered - Jevity 1.5 bolus feeds 4x/day (1 carton/237 ml per feeding) w/200 ml water flushes w/each feeding Expected Outcomes/Goals: Initiation of TFs within 24 - 48 hrs - met, new goal established New goal 07/01: TF infusion to meet >75% est needs Malnutrition Findings: Body Fat Depletion (Non Severe: Mod to Severe Weight Status: Underweight RUDDY QUEZADA MD Jul 02, 2019 12:33
[2019-07-02] MEDS: ENOXAPARIN 40 MG/0.4 ML SYRINGE. SQ SCH (15:25)
[2019-07-02] MEDS: CEFTOLOZANE/TAZOBACTAM 1,500 MG in IV NORMAL SALINE 100ML 100 ML IV SCH (17:21)
[2019-07-02] MEDS: LANSOPRAZOLE 30 MG TAB.RAP.DR FT SCH (17:21)
[2019-07-02] MEDS: ONDANSETRON ODT 4 MG TAB.RAPDIS. PEG PRN (17:21)
[2019-07-02] MEDS ORDERED: oxyCODONE/APAP 7.5/325 1 TAB TABLET PEG ONE (20:30)
[2019-07-02] MEDS: GABAPENTIN 300 MG CAPSULE. PO SCH (20:53)
[2019-07-03] MEDS: oxyCODONE/APAP 7.5/325 1 TAB TABLET PO PRN ×4 (02:22→21:54)
[2019-07-03] MEDS: IV NORMAL SALINE 1000ML BAG 1,000 ML IV SCH ×3 (02:23→22:51)
[2019-07-03 03:04] VITALS: BP 181/93
[2019-07-03 05:26] LABS: BASO % 1 % (0-3); EOS # 0.3 x10^3/uL (0.0-0.7); EOS % 4 % (0-3); HEMATOCRIT 33.2 % (36.0-47.0); HEMOGLOBIN 10.7 g/dL (12.0-15.5); LYMPH # 1.6 x10^3/uL (1.0-4.8); LYMPH % 22 % (24-48); MEAN CORPUSCULAR HEMOGLOBIN 27 pg (25-35); MEAN CORPUSCULAR HGB CONC 32 g/dL (31-37); MEAN CORPUSCULAR VOLUME 83 fL (79-100); MONO # 0.4 x10^3/uL (0.0-1.1); MONO % 5 % (0-9); NEUT # 5.1 x10^3/uL (1.8-7.7); NEUT % 69 % (31-73); PLATELET COUNT 322 x10^3/uL (140-400); RED BLOOD COUNT 3.99 x10^6/uL (3.50-5.40); RED CELL DISTRIBUTION WIDTH 15.7 % (11.5-14.5); WHITE BLOOD COUNT 7.4 x10^3/uL (4.0-11.0)
[2019-07-03 05:43] LABS: ALBUMIN 2.5 g/dL (3.4-5.0); ALBUMIN/GLOBULIN RATIO 0.5 (1.0-1.7); CALCIUM 9.4 mg/dL (8.5-10.1); CREATININE 0.7 mg/dL (0.6-1.0); GFR 97.9; POTASSIUM 3.3 mmol/L (3.5-5.1); TOTAL BILIRUBIN 0.3 mg/dL (0.2-1.0)
[2019-07-03] MEDS: CEFTOLOZANE/TAZOBACTAM 1,500 MG in IV NORMAL SALINE 100ML 100 ML IV SCH ×3 (06:21→22:21)
[2019-07-03] MEDS: hydrALAZINE 20 MG/ML VIAL. IVP PRN ×2 (06:23→21:54)
[2019-07-03 07:00] VITALS: BP 152/76
[2019-07-03] MEDS: ALBUTEROL SULFATE 2.5 MG/3 ML NEBU. NEB SCH ×4 (07:39→19:29)
--- NOTE | 2019-07-03 07:51 | PDOC ---
PULMONARY PROGRESS NOTES Subjective on trach mask since yesterday, mod trach secretion, no sob, has cough Vitals Vital Signs Date Time Temp Pulse Resp B/P (MAP) Pulse Ox O2 Delivery O2 Flow Rate FiO2 07/03/19 07:43 100 Tracheal Collar 8.0 07/03/19 06:23 100 187/107 07/03/19 03:04 97.5 97.5 07/03/19 02:22 20 Comments ros as mentioned as above other sys otherwise neg ROS: No Nausea, No Chest Pain, No Abdominal Pain, No Increase Cough General: Alert, No acute distress HEENT: Other (nc at perrl nose throat clear neck trach site ok no lad no thyromegaly) Lungs: Crackles Cardiovascular: S1, S2 Abdomen: Soft, Non-tender Neuro Exam: Alert Extremities: No Edema Skin: Warm Labs Laboratory Tests Test 07/02/19 05:54 07/03/19 04:00 White Blood Count 6.7 x10^3/uL (4.0-11.0) 7.4 x10^3/uL (4.0-11.0) Red Blood Count 3.38 x10^6/uL (3.50-5.40) 3.99 x10^6/uL (3.50-5.40) Hemoglobin 9.0 g/dL (12.0-15.5) 10.7 g/dL (12.0-15.5) Hematocrit 28.6 % (36.0-47.0) 33.2 % (36.0-47.0) Mean Corpuscular Volume 85 fL (79-100) 83 fL (79-100) Mean Corpuscular Hemoglobin 27 pg (25-35) 27 pg (25-35) Mean Corpuscular Hemoglobin Concent 32 g/dL (31-37) 32 g/dL (31-37) Red Cell Distribution Width 16.2 % (11.5-14.5) 15.7 % (11.5-14.5) Platelet Count 294 x10^3/uL (140-400) 322 x10^3/uL (140-400) Neutrophils (%) (Auto) 60 % (31-73) 69 % (31-73) Lymphocytes (%) (Auto) 28 % (24-48) 22 % (24-48) Monocytes (%) (Auto) 5 % (0-9) 5 % (0-9) Eosinophils (%) (Auto) 7 % (0-3) 4 % (0-3) Basophils (%) (Auto) 1 % (0-3) 1 % (0-3) Neutrophils # (Auto) 4.0 x10^3/uL (1.8-7.7) 5.1 x10^3/uL (1.8-7.7) Lymphocytes # (Auto) 1.9 x10^3/uL (1.0-4.8) 1.6 x10^3/uL (1.0-4.8) Monocytes # (Auto) 0.4 x10^3/uL (0.0-1.1) 0.4 x10^3/uL (0.0-1.1) Eosinophils # (Auto) 0.4 x10^3/uL (0.0-0.7) 0.3 x10^3/uL (0.0-0.7) Basophils # (Auto) 0.0 x10^3/uL (0.0-0.2) 0.0 x10^3/uL (0.0-0.2) Sodium Level 143 mmol/L (136-145) 144 mmol/L (136-145) Potassium Level 3.5 mmol/L (3.5-5.1) 3.3 mmol/L (3.5-5.1) Chloride Level 107 mmol/L (98-107) 107 mmol/L (98-107) Carbon Dioxide Level 29 mmol/L (21-32) 30 mmol/L (21-32) Anion Gap 7 (6-14) 7 (6-14) Blood Urea Nitrogen 7 mg/dL (7-20) 7 mg/dL (7-20) Creatinine 0.8 mg/dL (0.6-1.0) 0.7 mg/dL (0.6-1.0) Estimated GFR (Cockcroft-Gault) 83.9 97.9 BUN/Creatinine Ratio 9 (6-20) 10 (6-20) Glucose Level 80 mg/dL (70-99) 72 mg/dL (70-99) Calcium Level 8.8 mg/dL (8.5-10.1) 9.4 mg/dL (8.5-10.1) Total Bilirubin 0.3 mg/dL (0.2-1.0) 0.3 mg/dL (0.2-1.0) Aspartate Amino Transf (AST/SGOT) 13 U/L (15-37) 17 U/L (15-37) Alanine Aminotransferase (ALT/SGPT) 9 U/L (14-59) 8 U/L (14-59) Alkaline Phosphatase 64 U/L (46-116) 68 U/L (46-116) Total Protein 6.6 g/dL (6.4-8.2) 8.0 g/dL (6.4-8.2) Albumin 2.1 g/dL (3.4-5.0) 2.5 g/dL (3.4-5.0) Albumin/Globulin Ratio 0.5 (1.0-1.7) 0.5 (1.0-1.7) Laboratory Tests Test 07/03/19 04:00 White Blood Count 7.4 x10^3/uL (4.0-11.0) Red Blood Count 3.99 x10^6/uL (3.50-5.40) Hemoglobin 10.7 g/dL (12.0-15.5) Hematocrit 33.2 % (36.0-47.0) Mean Corpuscular Volume 83 fL (79-100) Mean Corpuscular Hemoglobin 27 pg (25-35) Mean Corpuscular Hemoglobin Concent 32 g/dL (31-37) Red Cell Distribution Width 15.7 % (11.5-14.5) Platelet Count 322 x10^3/uL (140-400) Neutrophils (%) (Auto) 69 % (31-73) Lymphocytes (%) (Auto) 22 % (24-48) Monocytes (%) (Auto) 5 % (0-9) Eosinophils (%) (Auto) 4 % (0-3) Basophils (%) (Auto) 1 % (0-3) Neutrophils # (Auto) 5.1 x10^3/uL (1.8-7.7) Lymphocytes # (Auto) 1.6 x10^3/uL (1.0-4.8) Monocytes # (Auto) 0.4 x10^3/uL (0.0-1.1) Eosinophils # (Auto) 0.3 x10^3/uL (0.0-0.7) Basophils # (Auto) 0.0 x10^3/uL (0.0-0.2) Sodium Level 144 mmol/L (136-145) Potassium Level 3.3 mmol/L (3.5-5.1) Chloride Level 107 mmol/L (98-107) Carbon Dioxide Level 30 mmol/L (21-32) Anion Gap 7 (6-14) Blood Urea Nitrogen 7 mg/dL (7-20) Creatinine 0.7 mg/dL (0.6-1.0) Estimated GFR (Cockcroft-Gault) 97.9 BUN/Creatinine Ratio 10 (6-20) Glucose Level 72 mg/dL (70-99) Calcium Level 9.4 mg/dL (8.5-10.1) Total Bilirubin 0.3 mg/dL (0.2-1.0) Aspartate Amino Transf (AST/SGOT) 17 U/L (15-37) Alanine Aminotransferase (ALT/SGPT) 8 U/L (14-59) Alkaline Phosphatase 68 U/L (46-116) Total Protein 8.0 g/dL (6.4-8.2) Albumin 2.5 g/dL (3.4-5.0) Albumin/Globulin Ratio 0.5 (1.0-1.7) Medications Active Scripts Medications Dose Route/Sig Max Daily Dose Days Date Category Ativan (Lorazepam) 0.5 Mg Tablet 0.5 Mg PO DAILY 06/28/19 Reported Gabapentin (Gabapentin) 300 Mg Capsule 300 Mg PO HS 06/28/19 Reported Diovan (Valsartan) 160 Mg Tablet 160 Mg PO DAILY 05/23/19 Reported Ferrous Sulfate 325 Mg Tablet 1 Tab PO DAILY 01/20/19 Rx Percocet 7.5-325 Mg Tablet (Oxycodone/Acetaminophen) 1 Each Tablet 1 Tab PO QID PRN MDD 1 12/09/18 Rx FENTANYL 50mcg/hr (Fentanyl) 1 Each Patch.td72 1 Patch TP Q3DAYS MDD 1 12/09/18 Rx Albuterol Sulfate Neb Soln (Albuterol Sulfate) 0.63 Mg/3 Ml Vial.neb 1 Vial NEB QID 12/02/18 Reported Gabapentin (Gabapentin) 300 Mg Capsule 300 Mg PO BID PRN 2/5/19 Reported Amlodipine Besylate 5 Mg Tablet 5 Mg PO DAILY 10/19/18 Reported Culturelle (Lactobacillus Rhamnosus Gg) 1 Each Cap.sprink 1 Cap PO BID 30 07/07/17 Rx Pantoprazole Sodium (Pantoprazole Sodium) 40 Mg Tablet.dr 40 Mg PEG BID 03/11/17 Reported Donepezil Hcl 5 Mg Tablet 5 Mg PEG BID 03/11/17 Reported Reglan (Metoclopramide Hcl) 10 Mg Tablet 5 Mg PO QIDACHS 03/11/17 Reported Cyproheptadine Hcl 2 Mg/5 Ml Syrup 10 Ml PEG TID 03/11/17 Reported Ondansetron Odt (Ondansetron) 4 Mg Tab.rapdis 4 Mg PEG QIDPRN PRN 06/19/14 Reported Impression . IMPRESSION: 1. Acute on chronic respiratory failure. 2. Bilateral pulmonary infiltrates, best seen on CT abdomen revealing evidence of consolidation. 3. Suspect pneumonia, gram-positive/gram-negative. 4. Lung cancer, status post tracheotomy. 5. Severe protein malnutrition, present upon admission. 6. History of methicillin-resistant Staphylococcus aureus and Pseudomonas infection and pneumonia in the past. 7. Status post PEG. 8. Leukocytosis. resolved Plan . ANTIBX, sputum resistant pseudomonas await id consult off STEROIDS 02 titration BD NUTRITION SUPPORT D/W RT, rn, pt SUZANNE STEINER MD Jul 03, 2019 07:51
[2019-07-03] MEDS: amLODIPine BESYLATE 5 MG TABLET PO SCH (08:47)
[2019-07-03] MEDS: LANSOPRAZOLE 30 MG TAB.RAP.DR FT SCH ×2 (08:47→17:24)
[2019-07-03] MEDS: FERROUS SULFATE 325 MG TABLET. PO SCH (08:47)
[2019-07-03] MEDS: LOSARTAN POTASSIUM 50 MG TABLET. PO SCH (08:48)
[2019-07-03] MEDS: fentaNYL 50MCG/HR PATCH 1 PATCH PATCH.TD72 TD SCH (08:48)
[2019-07-03] MEDS: METOCLOPRAMIDE 5 MG TABLET. PO SCH ×4 (08:48→21:53)
[2019-07-03] MEDS: LORazepam 0.5 MG TABLET PO SCH (08:48)
[2019-07-03] MEDS: DONEPEZIL HCL 5 MG TABLET. PEG SCH ×2 (08:48→21:53)
--- NOTE | 2019-07-03 10:18 | PDOC ---
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 trach Chronic dysphagia, chronically PEG on tube feeds Severe malnutrition Anemia of chronic disease History of lung cancer and laryngeal cancer. 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 s/p radiation and chemo, trach done at [facility] July 2015. now s/p Erbitux, completed here in September 2015. 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 History of Present Illness History of Present Illness Ms Ch is a 79-year-old with Lung cancer status post chronic tracheotomy, recurrent pseudomonas infections, Hypertension, COPD, and previous MRSA pneumonia coming from home per family unresponsive. She is on trach shield. O2 saturation on finger found saturations in the 30s. EMS gave her 1 mg of Narcan and became responsive. They placed her on oxygen supplementation and transferred to the Emergency Department. She was placed on mechanical ventilation. Initially admitted to Intensive Care Unit. She is awake, alert, following commands. She does not appear to be in any respiratory distress. Her white count was elevated at 17,000. Arterial blood gas revealed a pH of 7.38, PaCO2 of 55, PaO2 of 519 initially with repeat pO2 of 169 with a pH of 7.41, and PaCO2 of 40. Chest x-ray revealed chronic changes, no new infiltrates. She did undergo CT abdomen and pelvis revealing wall thickening of the rectosigmoid colon. No evidence of appendicitis. There were chronic interstitial lung disease changes in the bases of the lungs, possibly compatible with some infection. Found growing MDR pseudomonas out of sputum, may be colonized, consult ID, try to DC soon. ID consulted, started on Zerbaxa. She appeared with no acute distress, and her trach. shield was intact. Needs vent at night, she is able to cap her trach and ask me when she can go home. Vitals Vitals Vital Signs Date Time Temp Pulse Resp B/P (MAP) Pulse Ox O2 Delivery O2 Flow Rate FiO2 07/03/19 09:20 98.1 98 24 95 Venturi Mask 98.1 07/03/19 08:48 8.0 Physical Exam General: Alert, Oriented X3, Cooperative, No acute distress, Other (Neck: Trach. collar intact ) Heart: Regular rate, Normal S1, Normal S2, No murmurs Lungs: Crackles Abdomen: Normal bowel sounds, Soft, No tenderness, No hepatosplenomegaly Extremities: No clubbing, No cyanosis, No edema, Normal pulses Skin: No rashes, No breakdown, No significant lesion Labs LABS Laboratory Tests Test 07/03/19 04:00 White Blood Count 7.4 x10^3/uL (4.0-11.0) Red Blood Count 3.99 x10^6/uL (3.50-5.40) Hemoglobin 10.7 g/dL (12.0-15.5) Hematocrit 33.2 % (36.0-47.0) Mean Corpuscular Volume 83 fL (79-100) Mean Corpuscular Hemoglobin 27 pg (25-35) Mean Corpuscular Hemoglobin Concent 32 g/dL (31-37) Red Cell Distribution Width 15.7 % (11.5-14.5) Platelet Count 322 x10^3/uL (140-400) Neutrophils (%) (Auto) 69 % (31-73) Lymphocytes (%) (Auto) 22 % (24-48) Monocytes (%) (Auto) 5 % (0-9) Eosinophils (%) (Auto) 4 % (0-3) Basophils (%) (Auto) 1 % (0-3) Neutrophils # (Auto) 5.1 x10^3/uL (1.8-7.7) Lymphocytes # (Auto) 1.6 x10^3/uL (1.0-4.8) Monocytes # (Auto) 0.4 x10^3/uL (0.0-1.1) Eosinophils # (Auto) 0.3 x10^3/uL (0.0-0.7) Basophils # (Auto) 0.0 x10^3/uL (0.0-0.2) Sodium Level 144 mmol/L (136-145) Potassium Level 3.3 mmol/L (3.5-5.1) Chloride Level 107 mmol/L (98-107) Carbon Dioxide Level 30 mmol/L (21-32) Anion Gap 7 (6-14) Blood Urea Nitrogen 7 mg/dL (7-20) Creatinine 0.7 mg/dL (0.6-1.0) Estimated GFR (Cockcroft-Gault) 97.9 BUN/Creatinine Ratio 10 (6-20) Glucose Level 72 mg/dL (70-99) Calcium Level 9.4 mg/dL (8.5-10.1) Total Bilirubin 0.3 mg/dL (0.2-1.0) Aspartate Amino Transf (AST/SGOT) 17 U/L (15-37) Alanine Aminotransferase (ALT/SGPT) 8 U/L (14-59) Alkaline Phosphatase 68 U/L (46-116) Total Protein 8.0 g/dL (6.4-8.2) Albumin 2.5 g/dL (3.4-5.0) Albumin/Globulin Ratio 0.5 (1.0-1.7) Assessment and Plan Assessmemt and Plan Problems Medical Problems: (1) Aspiration pneumonia Status: Acute Comment Review of Relevant I have reviewed the following items miko (where applicable) has been applied. Labs Laboratory Tests Test 07/02/19 05:54 07/03/19 04:00 White Blood Count 6.7 x10^3/uL (4.0-11.0) 7.4 x10^3/uL (4.0-11.0) Red Blood Count 3.38 x10^6/uL (3.50-5.40) 3.99 x10^6/uL (3.50-5.40) Hemoglobin 9.0 g/dL (12.0-15.5) 10.7 g/dL (12.0-15.5) Hematocrit 28.6 % (36.0-47.0) 33.2 % (36.0-47.0) Mean Corpuscular Volume 85 fL (79-100) 83 fL (79-100) Mean Corpuscular Hemoglobin 27 pg (25-35) 27 pg (25-35) Mean Corpuscular Hemoglobin Concent 32 g/dL (31-37) 32 g/dL (31-37) Red Cell Distribution Width 16.2 % (11.5-14.5) 15.7 % (11.5-14.5) Platelet Count 294 x10^3/uL (140-400) 322 x10^3/uL (140-400) Neutrophils (%) (Auto) 60 % (31-73) 69 % (31-73) Lymphocytes (%) (Auto) 28 % (24-48) 22 % (24-48) Monocytes (%) (Auto) 5 % (0-9) 5 % (0-9) Eosinophils (%) (Auto) 7 % (0-3) 4 % (0-3) Basophils (%) (Auto) 1 % (0-3) 1 % (0-3) Neutrophils # (Auto) 4.0 x10^3/uL (1.8-7.7) 5.1 x10^3/uL (1.8-7.7) Lymphocytes # (Auto) 1.9 x10^3/uL (1.0-4.8) 1.6 x10^3/uL (1.0-4.8) Monocytes # (Auto) 0.4 x10^3/uL (0.0-1.1) 0.4 x10^3/uL (0.0-1.1) Eosinophils # (Auto) 0.4 x10^3/uL (0.0-0.7) 0.3 x10^3/uL (0.0-0.7) Basophils # (Auto) 0.0 x10^3/uL (0.0-0.2) 0.0 x10^3/uL (0.0-0.2) Sodium Level 143 mmol/L (136-145) 144 mmol/L (136-145) Potassium Level 3.5 mmol/L (3.5-5.1) 3.3 mmol/L (3.5-5.1) Chloride Level 107 mmol/L (98-107) 107 mmol/L (98-107) Carbon Dioxide Level 29 mmol/L (21-32) 30 mmol/L (21-32) Anion Gap 7 (6-14) 7 (6-14) Blood Urea Nitrogen 7 mg/dL (7-20) 7 mg/dL (7-20) Creatinine 0.8 mg/dL (0.6-1.0) 0.7 mg/dL (0.6-1.0) Estimated GFR (Cockcroft-Gault) 83.9 97.9 BUN/Creatinine Ratio 9 (6-20) 10 (6-20) Glucose Level 80 mg/dL (70-99) 72 mg/dL (70-99) Calcium Level 8.8 mg/dL (8.5-10.1) 9.4 mg/dL (8.5-10.1) Total Bilirubin 0.3 mg/dL (0.2-1.0) 0.3 mg/dL (0.2-1.0) Aspartate Amino Transf (AST/SGOT) 13 U/L (15-37) 17 U/L (15-37) Alanine Aminotransferase (ALT/SGPT) 9 U/L (14-59) 8 U/L (14-59) Alkaline Phosphatase 64 U/L (46-116) 68 U/L (46-116) Total Protein 6.6 g/dL (6.4-8.2) 8.0 g/dL (6.4-8.2) Albumin 2.1 g/dL (3.4-5.0) 2.5 g/dL (3.4-5.0) Albumin/Globulin Ratio 0.5 (1.0-1.7) 0.5 (1.0-1.7) Laboratory Tests Test 07/03/19 04:00 White Blood Count 7.4 x10^3/uL (4.0-11.0) Red Blood Count 3.99 x10^6/uL (3.50-5.40) Hemoglobin 10.7 g/dL (12.0-15.5) Hematocrit 33.2 % (36.0-47.0) Mean Corpuscular Volume 83 fL (79-100) Mean Corpuscular Hemoglobin 27 pg (25-35) Mean Corpuscular Hemoglobin Concent 32 g/dL (31-37) Red Cell Distribution Width 15.7 % (11.5-14.5) Platelet Count 322 x10^3/uL (140-400) Neutrophils (%) (Auto) 69 % (31-73) Lymphocytes (%) (Auto) 22 % (24-48) Monocytes (%) (Auto) 5 % (0-9) Eosinophils (%) (Auto) 4 % (0-3) Basophils (%) (Auto) 1 % (0-3) Neutrophils # (Auto) 5.1 x10^3/uL (1.8-7.7) Lymphocytes # (Auto) 1.6 x10^3/uL (1.0-4.8) Monocytes # (Auto) 0.4 x10^3/uL (0.0-1.1) Eosinophils # (Auto) 0.3 x10^3/uL (0.0-0.7) Basophils # (Auto) 0.0 x10^3/uL (0.0-0.2) Sodium Level 144 mmol/L (136-145) Potassium Level 3.3 mmol/L (3.5-5.1) Chloride Level 107 mmol/L (98-107) Carbon Dioxide Level 30 mmol/L (21-32) Anion Gap 7 (6-14) Blood Urea Nitrogen 7 mg/dL (7-20) Creatinine 0.7 mg/dL (0.6-1.0) Estimated GFR (Cockcroft-Gault) 97.9 BUN/Creatinine Ratio 10 (6-20) Glucose Level 72 mg/dL (70-99) Calcium Level 9.4 mg/dL (8.5-10.1) Total Bilirubin 0.3 mg/dL (0.2-1.0) Aspartate Amino Transf (AST/SGOT) 17 U/L (15-37) Alanine Aminotransferase (ALT/SGPT) 8 U/L (14-59) Alkaline Phosphatase 68 U/L (46-116) Total Protein 8.0 g/dL (6.4-8.2) Albumin 2.5 g/dL (3.4-5.0) Albumin/Globulin Ratio 0.5 (1.0-1.7) Microbiology 06/27/19 - Final, Complete 06/27/19 - Final, Complete 06/27/19 - Final, Complete 06/27/19 Gram Stain Evaluation - Final, Complete 06/27/19 Sputum Culture - Final, Complete 06/27/19 Sputum Result 1 - Final, Complete 06/27/19 Sputum Result 2 - Final, Complete 06/27/19 Antimicrobic Susceptibility - Final, Complete 06/27/19 Blood Culture - Final, Complete NO GROWTH AFTER 5 DAYS Medications Current Medications Albuterol/ Ipratropium (Duoneb) 3 ml 1X ONCE NEB Last administered on 06/27/19at 20:51; Start 06/27/19 at 20:15; Stop 06/27/19 at 20:16; Status DC Sodium Chloride 1,000 ml @ 125 mls/hr 1X ONCE IV Last administered on 06/27/19at 21:15; Start 06/27/19 at 20:15; Stop 06/28/19 at 04:14; Status DC Lorazepam (Ativan Inj) 2 mg 1X ONCE IVP Last administered on 06/27/19at 20:56; Start 06/27/19 at 21:00; Stop 06/27/19 at 21:01; Status DC Vancomycin HCl 250 ml @ 250 mls/hr 1X ONCE IV ; Start 06/27/19 at 21:30; Stop 06/27/19 at 22:29; Status UNV Piperacillin Sod/ Tazobactam Sod 3.375 gm/Sodium Chloride 50 ml @ 100 mls/hr 1X ONCE IV Last administered on 06/27/19at 22:33; Start 06/27/19 at 21:30; Stop 06/27/19 at 21:59; Status DC Vancomycin HCl 1.25 gm/Sodium Chloride 250 ml @ 167 mls/hr ONCE ONCE IV Last administered on 06/27/19at 23:50; Start 06/27/19 at 21:45; Stop 06/27/19 at 23:14; Status DC Ondansetron HCl (Zofran) 4 mg PRN Q8HRS PRN IV NAUSEA/VOMITING 1ST CHOICE; Start 06/27/19 at 22:30; Stop 06/28/19 at 22:29; Status DC Morphine Sulfate (Morphine Sulfate) 2 mg PRN Q2HR PRN IV SEVERE PAIN 7-10; Start 06/27/19 at 22:30; Stop 06/28/19 at 22:29; Status DC Albuterol/ Ipratropium (Duoneb) 3 ml RTQID NEB Last administered on 06/28/19at 08:38; Start 06/28/19 at 08:00; Stop 06/28/19 at 16:03; Status DC Norepinephrine Bitartrate 250 ml @ 9.355 mls/ hr CONT PRN IV SEE I/O RECORD Last administered on 06/28/19at 00:22; Start 06/28/19 at 00:15; Stop 07/02/19 at 13:40; Status DC Piperacillin Sod/ Tazobactam Sod (Zosyn Per Pharmacy) 1 each PRN DAILY PRN MC SEE COMMENTS; Start 06/28/19 at 00:15; Stop 07/02/19 at 16:54; Status DC Vancomycin HCl (Vanco Per Pharmacy) 1 each PRN DAILY PRN MC SEE COMMENTS Last administered on 07/01/19at 10:58; Start 06/28/19 at 00:15; Stop 07/02/19 at 16:54; Status DC Piperacillin Sod/ Tazobactam Sod 3.375 gm/Sodium Chloride 50 ml @ 100 mls/hr Q6HRS IV Last administered on 07/02/19at 11:43; Start 06/28/19 at 06:00; Stop 07/02/19 at 16:54; Status DC Vancomycin HCl 750 mg/Sodium Chloride 250 ml @ 250 mls/hr Q24H IV ; Start 06/29/19 at 00:00; Stop 06/28/19 at 14:07; Status DC Vancomycin HCl (Vancomycin Trough Level) 1 each 1X ONCE MC Last administered on 06/29/19 14:30; Start 06/29/19 at 14:30; Stop 06/29/19 at 14:31; Status DC Sodium Chloride 1,000 ml @ 75 mls/hr [id number] IV Last administered on 07/03/19at 02:23; Start 06/28/19 at 07:45 Albuterol Sulfate (Ventolin Neb Soln) 2.5 mg QID NEB Last administered on 07/03/19at 07:39; Start 06/28/19 at 13:00 Albuterol Sulfate (Ventolin Neb Soln) 2.5 mg PRN Q3HRS PRN NEB SOA; Start 06/28/19 at 12:00 Enoxaparin Sodium (Lovenox 40mg Syringe) 40 mg Q24H SQ Last administered on 07/02/19at 15:25; Start 06/28/19 at 15:00 Vancomycin HCl 1 gm/Sodium Chloride 250 ml @ 250 mls/hr Q12H IV Last administered on 07/02/19at 15:25; Start 06/28/19 at 15:00; Stop 07/02/19 at 16:54; Status DC Morphine Sulfate (Morphine Sulfate) 2 mg PRN Q2HR PRN IV SEVERE PAIN 7-10 Last administered on 06/29/19at 11:50; Start 06/29/19 at 00:00; Stop 06/29/19 at 18:02; Status DC Acetaminophen (Tylenol Supp) 650 mg PRN Q6HRS PRN RC MILD PAIN / TEMP Last administered on 06/29/19at 03:11; Start 06/29/19 at 03:00 Metoprolol Tartrate (Lopressor Vial) 2.5 mg PRN Q4HRS PRN IVP HEART RATE Last administered on 06/29/19 13:18; Start 06/29/19 at 03:00 Amlodipine Besylate (Norvasc) 5 mg DAILY PO Last administered on 07/03/19 08:47; Start 06/30/19 at 09:00 Donepezil HCl (Aricept) 5 mg BID PEG Last administered on 07/03/19 08:48; Start 06/29/19 at 21:00 Ferrous Sulfate (Feosol) 325 mg DAILY08 PO Last administered on 07/03/19 08:47; Start 06/30/19 at 08:00 Metoclopramide HCl (Reglan) 5 mg QIDACHS PO Last administered on 07/03/19 08:48; Start 06/29/19 at 16:45 Ondansetron HCl (Zofran Odt) 4 mg QIDPRN PRN PEG NAUSEA/VOMITING Last administered on 07/02/19 17:21; Start 06/29/19 at 16:45 Oxycodone/ Acetaminophen (Percocet 7.5/ 325) 1 tab PRN QID PRN PO MODERATE TO SEVERE PAIN Last administered on 07/03/19 08:47; Start 06/29/19 at 16:45 Pantoprazole Sodium (Protonix) 40 mg BIDAC PO ; Start 06/29/19 at 17:00; Stop 06/29/19 at 17:08; Status DC Losartan Potassium (Cozaar) 100 mg DAILY PO Last administered on 07/03/19 08:48; Start 06/30/19 at 09:00 Gabapentin (Neurontin) 300 mg HS PO Last administered on 07/02/19 20:53; Start 06/29/19 at 21:00 Lorazepam (Ativan) 0.5 mg DAILY PO Last administered on 07/03/19 08:48; Start 06/30/19 at 09:00 Fentanyl (Duragesic 50mcg/ Hr Patch) 1 patch Q3DAYS TD ; Start 06/29/19 at 17:00; Stop 06/29/19 at 16:57; Status DC Amlodipine Besylate (Norvasc) 5 mg 1X ONCE PO Last administered on 06/29/19 17:17; Start 06/29/19 at 17:00; Stop 06/29/19 at 17:01; Status DC Losartan Potassium (Cozaar) 100 mg 1X ONCE PO Last administered on 06/29/19at 17:17; Start 06/29/19 at 17:00; Stop 06/29/19 at 17:01; Status DC Fentanyl (Duragesic 50mcg/ Hr Patch) 1 patch Q3DAYS TD Last administered on 07/03/19at 08:48; Start 06/30/19 at 09:00 Lansoprazole (Prevacid) 30 mg BIDBFRMEAL FT Last administered on 07/03/19 08:47; Start 06/29/19 at 17:30 Ceftolozane/ Tazobactam 1500 mg/Sodium Chloride 100 ml @ 100 mls/hr Q8HRS IV Last administered on 07/03/19at 06:21; Start 07/02/19 at 17:30 Oxycodone/ Acetaminophen (Percocet 7.5/ 325) 1 tab 1X ONCE PEG Last administered on 07/02/19at 20:55; Start 07/02/19 at 20:30; Stop 07/02/19 at 20:31; Status DC Hydralazine HCl (Apresoline Inj) 10 mg PRN Q4HRS PRN IVP ELEVATED BP, SEE COMMENTS Last administered on 07/03/19at 06:23; Start 07/03/19 at 05:45 Active Scripts Active Ferrous Sulfate 325 Mg Tablet 1 Tab PO DAILY Percocet 7.5-325 Mg Tablet (Oxycodone/Acetaminophen) 1 Each Tablet 1 Tab PO QID PRN MDD 1 FENTANYL 50mcg/hr (Fentanyl) 1 Each Patch.td72 1 Patch TP Q3DAYS MDD 1 Culturelle (Lactobacillus Rhamnosus Gg) 1 Each Cap.sprink 1 Cap PO BID 30 Days Reported Ativan (Lorazepam) 0.5 Mg Tablet 0.5 Mg PO DAILY Gabapentin (Gabapentin) 300 Mg Capsule 300 Mg PO HS Diovan (Valsartan) 160 Mg Tablet 160 Mg PO DAILY Albuterol Sulfate Neb Soln (Albuterol Sulfate) 0.63 Mg/3 Ml Vial.neb 1 Vial NEB QID Gabapentin (Gabapentin) 300 Mg Capsule 300 Mg PO BID PRN Amlodipine Besylate 5 Mg Tablet 5 Mg PO DAILY Pantoprazole Sodium (Pantoprazole Sodium) 40 Mg Tablet.dr 40 Mg PEG BID Donepezil Hcl 5 Mg Tablet 5 Mg PEG BID Reglan (Metoclopramide Hcl) 10 Mg Tablet 5 Mg PO QIDACHS Cyproheptadine Hcl 2 Mg/5 Ml Syrup 10 Ml PEG TID Ondansetron Odt (Ondansetron) 4 Mg Tab.rapdis 4 Mg PEG QIDPRN PRN Vitals/I & O Vital Sign - Last 24 Hours 07/02/19 07/02/19 07/02/19 07/02/19 11:00 12:45 13:00 15:00 Temp 98.1 98.3 98.1 98.3 Pulse 91 87 90 Resp 21 16 16 B/P (MAP) 158/71 (100) 163/76 (105) 156/79 (104) Pulse Ox 100 99 100 O2 Delivery Tracheal Collar Tracheal Collar Trach Collar Tracheal Collar O2 Flow Rate 8.0 10.0 10.0 07/02/19 07/02/19 07/02/19 07/02/19 15:25 16:30 17:13 19:00 Temp 98.1 98.1 Pulse 102 Resp 20 B/P (MAP) 156/77 (103) Pulse Ox 100 95 O2 Delivery Tracheal Collar Tracheal Collar O2 Flow Rate 8.0 8.0 8.0 07/02/19 07/02/19 07/02/19 07/02/19 20:00 20:04 20:55 23:01 Temp 98.3 98.3 Pulse 90 Resp 20 20 B/P (MAP) 179/96 (123) Pulse Ox 98 98 97 O2 Delivery Trach Collar Tracheal Collar Tracheal Collar Tracheal Collar O2 Flow Rate 8.0 8.0 8.0 07/03/19 07/03/19 07/03/19 07/03/19 02:22 03:04 06:23 07:00 Temp 97.5 98.1 97.5 98.1 Pulse 90 100 98 Resp 20 24 B/P (MAP) 181/93 (122) 187/107 152/76 (101) Pulse Ox 97 96 O2 Delivery Tracheal Collar Venturi Mask O2 Flow Rate 8.0 8.0 07/03/19 07/03/19 07/03/19 07/03/19 07:43 08:47 08:47 08:48 Pulse 98 98 B/P (MAP) 152/76 152/76 Pulse Ox 100 O2 Delivery Tracheal Collar O2 Flow Rate 8.0 8.0 07/03/19 07/03/19 08:48 09:20 Temp 98.1 98.1 Pulse 98 Resp 24 B/P (MAP) Pulse Ox 95 O2 Delivery Venturi Mask O2 Flow Rate 8.0 Intake and Output 07/02/19 07/02/19 07/03/19 14:59 22:59 06:59 Intake Total 915 ml 1500 ml Output Total 255 ml 1700 ml 2700 ml Balance 660 ml -200 ml -2700 ml Nutrition Consultation Dietary Evaluation: Recommendations by RD: Increase Calorie Intake Comments: Continue w/TFs as ordered - Jevity 1.5 bolus feeds 4x/day (1 carton/237 ml per feeding) w/200 ml water flushes w/each feeding Expected Outcomes/Goals: Initiation of TFs within 24 - 48 hrs - met, new goal established New goal 07/01: TF infusion to meet >75% est needs Malnutrition Findings: Body Fat Depletion (Non Severe: Mod to Severe Weight Status: Underweight ARINA GALLEGOS MD Jul 03, 2019 10:18
--- NOTE | 2019-07-03 10:43 | CONS ---
DATE OF CONSULTATION: 07/03/2019 REFERRING PHYSICIAN: Leslie Watson MD REASON FOR CONSULTATION: MDR Pseudomonas pneumonia. HISTORY OF PRESENT ILLNESS: The patient is a 79-year-old female with history of lung cancer with history of multidrug resistant Pseudomonas infection in the past, presented to the ER with mental status changes. She was found to be unresponsive, hypoxic. After receiving 1 mg of Narcan, she became responsive. The patient had a lot of purulent sputum from her tracheostomy tube and oxygen levels came up. She required 12 liters of high flow oxygen. She was admitted to ICU. She had leukocytosis. She was started on Zosyn and vancomycin. Blood cultures were done, which are negative. Sputum culture is positive for gram-positive cocci and multidrug resistant, carbapenem-resistant Pseudomonas aeruginosa. ID consult has been requested for antibiotic management. Today, the patient states she is getting a little better. Denies any fevers, chills, nausea, vomiting, diarrhea, abdominal pain. She has a Nolasco in place, which was placed when she presented to the ER. PAST MEDICAL HISTORY: Lung cancer, status post chronic tracheostomy, recurrent multidrug resistant Pseudomonas infection, hypertension, COPD, previous MRSA and pneumonia. PAST SURGICAL HISTORY: Status post trach and PEG. ALLERGIES: ASPIRIN. REVIEW OF SYSTEMS: Negative except for above in HPI. CURRENT MEDICATIONS: Previously was on Zosyn and vancomycin, now on Zerbaxa. Other medications reviewed in medication list. PHYSICAL EXAMINATION: VITAL SIGNS: Temperature 98.1, respiratory rate 24, blood pressure 152/76, oxygen saturation 95% on Ventimask. GENERAL: Alert and oriented x 3 female, cachectic, lying in bed comfortably, in no acute distress, pleasant, cooperative. HEENT: Normocephalic, atraumatic, anicteric. NECK: Supple, no JVD. Tracheostomy in place. Clear bilaterally, a few scattered rhonchi present. No wheezing. HEART: S1, S2. No gallops or murmurs. ABDOMEN: Soft, nontender, nondistended. PEG tube site looks okay. GENITOURINARY: Nolasco in place. EXTREMITIES: No edema, no cyanosis. CENTRAL NERVOUS SYSTEM: Alert and oriented x 3, grossly nonfocal. MUSCULOSKELETAL: No muscular atrophy present. No other changes. DERMATOLOGIC: Warm, dry. No generalized rash. LABORATORY DATA: WBC 7.4, hemoglobin 10.7, hematocrit 33.2, platelets 322. Sodium 144, potassium 3.3, chloride 107, bicarbonate 30, BUN 7, creatinine 0.7. Calcium 9.4, albumin 2.5. UA negative. Nasal MRSA screen negative. MICROBIOLOGY: Blood culture negative. Sputum culture positive for MDRO and CRE Pseudomonas aeruginosa. IMPRESSION: 1. Multidrug resistant CRE Pseudomonas pneumonia, on Zerbaxa since 07/02/2019. Could be colonization as pt's resp status improved without directed therapy. Has h/o recurrent mucus plugging and h/o previous MDR PSAE Resp infection in the past 2. Acute respiratory failure with underlying chronic respiratory failure. 3. History of lung cancer, status post trach. 4. Status post PEG tube. 5. Protein-calorie malnutrition. 6. Leukocytosis, resolved. RECOMMENDATIONS: 1. Continue with Zerbaxa for now 2. Continue supportive care. 3. Follow up labs and cultures. Thank you for consulting Infectious Disease to participate in this patient's care. If you have any questions, do not hesitate to contact us. Follow up labs and cultures. ELIE MATOS MD DR: HARI/sena JOB#: [id number] / [id number] CATA
[2019-07-03 11:27] VITALS: BP 136/65
[2019-07-03] MEDS ORDERED: MORPHINE SULFATE 2 MG/ML VIAL. IM ONE (12:15)
[2019-07-03] MEDS ORDERED: MORPHINE SULFATE 2 MG/ML VIAL. IV ONE (12:15)
[2019-07-03] MEDS: ENOXAPARIN 40 MG/0.4 ML SYRINGE. SQ SCH (14:59)
[2019-07-03 15:43] VITALS: BP 157/78
[2019-07-03] MEDS: ONDANSETRON ODT 4 MG TAB.RAPDIS. PEG PRN (18:05)
[2019-07-03] MEDS ORDERED: ONDANSETRON PF 4 MG/2 ML VIAL. IVP PRN (18:45)
--- NOTE | 2019-07-03 19:48 | NUR ---
Rapid Note After patients feed at 1700, patient stated feeling nauseous, patient was given SL Zofran. Patient stated patient did not work. Paged Dr. Pedraza and got an order for IV Zofran. Went into patients room to administer patients IV Zofran and patient started complaining of chest pain. Vitals were taken patients blood pressure 140's/80's heart rate in the 120's patients O2 in the 80's. This RN told patient that she needed to be suctioned. Rapid was called. Respiratory showed up and ICU nurse and Nursing Safemaker. This RN was already suctioning patient. Patient was suctioned a few times and oxygen level came up to the low 90's. Respiratory administered a breathing treatment and patient was suction a few more times. Dr. Pedraza was paged and ordered to transfer patient to [facility], troponin levels and patient to be monitored. After a few more times of suctioning patient, patients oxygen levels came up to 96%. Patients daughter at the bedside. Patients belongings were packed. Report was called to YVETTE Conti on . Patient was transferred with all belongings to room 202 via bed accompanied by YVETTE Mattson, and respiratory therapist.
[2019-07-03 19:49] VITALS: BP 171/78
--- NOTE | 2019-07-03 20:12 | NUR ---
Rapid Response called. Patient transferred to [facility] per Dr. Pedraza at 1930. When RN arrived at 1900, patient had multiple mucous plugs, was suctioned several times, breathing treatment given. Patient was able to cough with trach suctioning and treatment. SpO2 went from 85% to 95% after treatment and suctioning. Patient able answer questions, A/O. Stable upon leaving room. Patient's HR 105, SpO2 96%. Family member at bedside, notified of transfer of patient.
[2019-07-03] MEDS: GABAPENTIN 300 MG CAPSULE. PO SCH (21:53)
[2019-07-03 23:18] VITALS: BP 143/64
[2019-07-04 04:34] VITALS: BP 174/82
[2019-07-04] MEDS: CEFTOLOZANE/TAZOBACTAM 1,500 MG in IV NORMAL SALINE 100ML 100 ML IV SCH ×3 (06:08→22:00)
[2019-07-04 06:51] LABS: BASO % 0 % (0-3); EOS # 0.2 x10^3/uL (0.0-0.7); EOS % 2 % (0-3); HEMATOCRIT 31.8 % (36.0-47.0); HEMOGLOBIN 9.9 g/dL (12.0-15.5); LYMPH # 1.8 x10^3/uL (1.0-4.8); LYMPH % 15 % (24-48); MEAN CORPUSCULAR HEMOGLOBIN 26 pg (25-35); MEAN CORPUSCULAR HGB CONC 31 g/dL (31-37); MEAN CORPUSCULAR VOLUME 83 fL (79-100); MONO # 0.5 x10^3/uL (0.0-1.1); MONO % 4 % (0-9); NEUT # 9.6 x10^3/uL (1.8-7.7); NEUT % 80 % (31-73); PLATELET COUNT 283 x10^3/uL (140-400); RED BLOOD COUNT 3.84 x10^6/uL (3.50-5.40); RED CELL DISTRIBUTION WIDTH 16.4 % (11.5-14.5); WHITE BLOOD COUNT 12.1 x10^3/uL (4.0-11.0)
[2019-07-04 07:15] LABS: ALBUMIN 2.3 g/dL (3.4-5.0); ALBUMIN/GLOBULIN RATIO 0.5 (1.0-1.7); CALCIUM 8.6 mg/dL (8.5-10.1); CREATININE 0.7 mg/dL (0.6-1.0); GFR 97.9; POTASSIUM 3.3 mmol/L (3.5-5.1); TOTAL BILIRUBIN 0.2 mg/dL (0.2-1.0); TOTAL PROTEIN 6.6 g/dL (6.4-8.2)
[2019-07-04] MEDS: ALBUTEROL SULFATE 2.5 MG/3 ML NEBU. NEB SCH ×4 (07:17→19:52)
[2019-07-04 07:20] VITALS: BP 190/90
[2019-07-04] MEDS: LANSOPRAZOLE 30 MG TAB.RAP.DR FT SCH ×2 (08:01→16:40)
[2019-07-04] MEDS: LORazepam 0.5 MG TABLET PO SCH (08:01)
[2019-07-04] MEDS: oxyCODONE/APAP 7.5/325 1 TAB TABLET PO PRN ×4 (08:02→22:20)
[2019-07-04] MEDS: FERROUS SULFATE 325 MG TABLET. PO SCH (08:02)
[2019-07-04] MEDS: LOSARTAN POTASSIUM 50 MG TABLET. PO SCH (08:02)
[2019-07-04] MEDS: METOCLOPRAMIDE 5 MG TABLET. PO SCH ×4 (08:02→22:13)
[2019-07-04] MEDS: DONEPEZIL HCL 5 MG TABLET. PEG SCH ×2 (08:02→22:14)
[2019-07-04] MEDS: amLODIPine BESYLATE 5 MG TABLET PO SCH (08:02)
--- NOTE | 2019-07-04 09:15 | PDOC ---
PULMONARY PROGRESS NOTES Subjective PT WITH NO INCREASE SOA TRACH SHIELD SECRETION STILL AN ISSUE Vitals Vital Signs Date Time Temp Pulse Resp B/P (MAP) Pulse Ox O2 Delivery O2 Flow Rate FiO2 07/04/19 08:02 100 190/90 07/04/19 07:20 97.8 16 100 Tracheal Collar 15.0 97.8 ROS: No Nausea, No Chest Pain, No Abdominal Pain, No Increase Cough General: Alert, No acute distress HEENT: Other Lungs: Crackles Cardiovascular: S1, S2 Abdomen: Soft, Non-tender Neuro Exam: Alert Extremities: No Edema Skin: Warm Labs Laboratory Tests Test 07/03/19 04:00 07/03/19 19:29 07/04/19 00:20 07/04/19 06:25 White Blood Count 7.4 x10^3/uL (4.0-11.0) 12.1 x10^3/uL (4.0-11.0) Red Blood Count 3.99 x10^6/uL (3.50-5.40) 3.84 x10^6/uL (3.50-5.40) Hemoglobin 10.7 g/dL (12.0-15.5) 9.9 g/dL (12.0-15.5) Hematocrit 33.2 % (36.0-47.0) 31.8 % (36.0-47.0) Mean Corpuscular Volume 83 fL (79-100) 83 fL (79-100) Mean Corpuscular Hemoglobin 27 pg (25-35) 26 pg (25-35) Mean Corpuscular Hemoglobin Concent 32 g/dL (31-37) 31 g/dL (31-37) Red Cell Distribution Width 15.7 % (11.5-14.5) 16.4 % (11.5-14.5) Platelet Count 322 x10^3/uL (140-400) 283 x10^3/uL (140-400) Neutrophils (%) (Auto) 69 % (31-73) 80 % (31-73) Lymphocytes (%) (Auto) 22 % (24-48) 15 % (24-48) Monocytes (%) (Auto) 5 % (0-9) 4 % (0-9) Eosinophils (%) (Auto) 4 % (0-3) 2 % (0-3) Basophils (%) (Auto) 1 % (0-3) 0 % (0-3) Neutrophils # (Auto) 5.1 x10^3/uL (1.8-7.7) 9.6 x10^3/uL (1.8-7.7) Lymphocytes # (Auto) 1.6 x10^3/uL (1.0-4.8) 1.8 x10^3/uL (1.0-4.8) Monocytes # (Auto) 0.4 x10^3/uL (0.0-1.1) 0.5 x10^3/uL (0.0-1.1) Eosinophils # (Auto) 0.3 x10^3/uL (0.0-0.7) 0.2 x10^3/uL (0.0-0.7) Basophils # (Auto) 0.0 x10^3/uL (0.0-0.2) 0.0 x10^3/uL (0.0-0.2) Sodium Level 144 mmol/L (136-145) 147 mmol/L (136-145) Potassium Level 3.3 mmol/L (3.5-5.1) 3.3 mmol/L (3.5-5.1) Chloride Level 107 mmol/L (98-107) 108 mmol/L (98-107) Carbon Dioxide Level 30 mmol/L (21-32) 32 mmol/L (21-32) Anion Gap 7 (6-14) 7 (6-14) Blood Urea Nitrogen 7 mg/dL (7-20) 8 mg/dL (7-20) Creatinine 0.7 mg/dL (0.6-1.0) 0.7 mg/dL (0.6-1.0) Estimated GFR (Cockcroft-Gault) 97.9 97.9 BUN/Creatinine Ratio 10 (6-20) 11 (6-20) Glucose Level 72 mg/dL (70-99) 82 mg/dL (70-99) Calcium Level 9.4 mg/dL (8.5-10.1) 8.6 mg/dL (8.5-10.1) Total Bilirubin 0.3 mg/dL (0.2-1.0) 0.2 mg/dL (0.2-1.0) Aspartate Amino Transf (AST/SGOT) 17 U/L (15-37) 19 U/L (15-37) Alanine Aminotransferase (ALT/SGPT) 8 U/L (14-59) 15 U/L (14-59) Alkaline Phosphatase 68 U/L (46-116) 66 U/L (46-116) Total Protein 8.0 g/dL (6.4-8.2) 6.6 g/dL (6.4-8.2) Albumin 2.5 g/dL (3.4-5.0) 2.3 g/dL (3.4-5.0) Albumin/Globulin Ratio 0.5 (1.0-1.7) 0.5 (1.0-1.7) Troponin I Quantitative < 0.017 ng/mL (0.000-0.055) < 0.017 ng/mL (0.000-0.055) < 0.017 ng/mL (0.000-0.055) Laboratory Tests Test 07/03/19 19:29 07/04/19 00:20 07/04/19 06:25 Troponin I Quantitative < 0.017 ng/mL (0.000-0.055) < 0.017 ng/mL (0.000-0.055) < 0.017 ng/mL (0.000-0.055) White Blood Count 12.1 x10^3/uL (4.0-11.0) Red Blood Count 3.84 x10^6/uL (3.50-5.40) Hemoglobin 9.9 g/dL (12.0-15.5) Hematocrit 31.8 % (36.0-47.0) Mean Corpuscular Volume 83 fL (79-100) Mean Corpuscular Hemoglobin 26 pg (25-35) Mean Corpuscular Hemoglobin Concent 31 g/dL (31-37) Red Cell Distribution Width 16.4 % (11.5-14.5) Platelet Count 283 x10^3/uL (140-400) Neutrophils (%) (Auto) 80 % (31-73) Lymphocytes (%) (Auto) 15 % (24-48) Monocytes (%) (Auto) 4 % (0-9) Eosinophils (%) (Auto) 2 % (0-3) Basophils (%) (Auto) 0 % (0-3) Neutrophils # (Auto) 9.6 x10^3/uL (1.8-7.7) Lymphocytes # (Auto) 1.8 x10^3/uL (1.0-4.8) Monocytes # (Auto) 0.5 x10^3/uL (0.0-1.1) Eosinophils # (Auto) 0.2 x10^3/uL (0.0-0.7) Basophils # (Auto) 0.0 x10^3/uL (0.0-0.2) Sodium Level 147 mmol/L (136-145) Potassium Level 3.3 mmol/L (3.5-5.1) Chloride Level 108 mmol/L (98-107) Carbon Dioxide Level 32 mmol/L (21-32) Anion Gap 7 (6-14) Blood Urea Nitrogen 8 mg/dL (7-20) Creatinine 0.7 mg/dL (0.6-1.0) Estimated GFR (Cockcroft-Gault) 97.9 BUN/Creatinine Ratio 11 (6-20) Glucose Level 82 mg/dL (70-99) Calcium Level 8.6 mg/dL (8.5-10.1) Total Bilirubin 0.2 mg/dL (0.2-1.0) Aspartate Amino Transf (AST/SGOT) 19 U/L (15-37) Alanine Aminotransferase (ALT/SGPT) 15 U/L (14-59) Alkaline Phosphatase 66 U/L (46-116) Total Protein 6.6 g/dL (6.4-8.2) Albumin 2.3 g/dL (3.4-5.0) Albumin/Globulin Ratio 0.5 (1.0-1.7) Medications Active Scripts Medications Dose Route/Sig Max Daily Dose Days Date Category Ativan (Lorazepam) 0.5 Mg Tablet 0.5 Mg PO DAILY 06/28/19 Reported Gabapentin (Gabapentin) 300 Mg Capsule 300 Mg PO HS 06/28/19 Reported Diovan (Valsartan) 160 Mg Tablet 160 Mg PO DAILY 05/23/19 Reported Ferrous Sulfate 325 Mg Tablet 1 Tab PO DAILY 01/20/19 Rx Percocet 7.5-325 Mg Tablet (Oxycodone/Acetaminophen) 1 Each Tablet 1 Tab PO QID PRN MDD 1 12/09/18 Rx FENTANYL 50mcg/hr (Fentanyl) 1 Each Patch.td72 1 Patch TP Q3DAYS MDD 1 12/09/18 Rx Albuterol Sulfate Neb Soln (Albuterol Sulfate) 0.63 Mg/3 Ml Vial.neb 1 Vial NEB QID 12/02/18 Reported Gabapentin (Gabapentin) 300 Mg Capsule 300 Mg PO BID PRN 10/19/18 Reported Amlodipine Besylate 5 Mg Tablet 5 Mg PO DAILY 10/19/18 Reported Culturelle (Lactobacillus Rhamnosus Gg) 1 Each Cap.sprink 1 Cap PO BID 30 07/07/17 Rx Pantoprazole Sodium (Pantoprazole Sodium) 40 Mg Tablet.dr 40 Mg PEG BID 03/11/17 Reported Donepezil Hcl 5 Mg Tablet 5 Mg PEG BID 03/11/17 Reported Reglan (Metoclopramide Hcl) 10 Mg Tablet 5 Mg PO QIDACHS 03/11/17 Reported Cyproheptadine Hcl 2 Mg/5 Ml Syrup 10 Ml PEG TID 03/11/17 Reported Ondansetron Odt (Ondansetron) 4 Mg Tab.rapdis 4 Mg PEG QIDPRN PRN 06/19/14 Reported Impression . IMPRESSION: 1. Acute on chronic respiratory failure. 2. Bilateral pulmonary infiltrates, best seen on CT abdomen revealing evidence of consolidation. 3. Suspect pneumonia, gram-positive/gram-negative. 4. Lung cancer, status post tracheotomy. 5. Severe protein malnutrition, present upon admission. 6. History of methicillin-resistant Staphylococcus aureus and Pseudomonas infection and pneumonia in the past. 7. Status post PEG. 8. Leukocytosis. resolved Plan . ANTIBX PER ID off STEROIDS TRACH TORRES 02 titration BD NUTRITION SUPPORT ANURAG LOO MD Jul 04, 2019 09:15
--- NOTE | 2019-07-04 09:49 | PDOC ---
Infectious Disease Note Subjective: Subjective pt moved to 2 nd floor pt without complaints this am ROS: ROS Negative otherwise. Vital Signs: Vital Signs Vital Signs Date Time Temp Pulse Resp B/P (MAP) Pulse Ox O2 Delivery O2 Flow Rate FiO2 07/04/19 08:02 100 190/90 07/04/19 07:20 97.8 16 100 Tracheal Collar 15.0 97.8 Physical Exam: PHYSICAL EXAM GENERAL: Alert and oriented x 3 female, cachectic, lying in bed comfortably, in no acute distress, pleasant, cooperative. HEENT: Normocephalic, atraumatic, anicteric. NECK: Supple, no JVD. Tracheostomy in place. Clear bilaterally, a few scattered rhonchi present. No wheezing. HEART: S1, S2. No gallops or murmurs. ABDOMEN: Soft, nontender, nondistended. PEG tube site looks okay. GENITOURINARY: Nolasco in place. EXTREMITIES: No edema, no cyanosis. CENTRAL NERVOUS SYSTEM: Alert and oriented x 3, grossly nonfocal. MUSCULOSKELETAL: No muscular atrophy present. No other changes. DERMATOLOGIC: Warm, dry. No generalized rash. Medications: Inpatient Meds: Current Medications Medications (Trade) Dose Ordered Sig/Yuliana Start Time Stop Time Status Last Admin Dose Admin Acetaminophen (Tylenol Supp) 650 mg PRN Q6HRS PRN 06/29/19 03:00 06/29/19 03:11 650 MG Albuterol Sulfate (Ventolin Neb Soln) 2.5 mg PRN Q3HRS PRN 06/28/19 12:00 Albuterol/ Ipratropium (Duoneb) 3 ml RTQID 06/28/19 08:00 06/28/19 16:03 DC 06/28/19 08:38 3 ML Amlodipine Besylate (Norvasc) 5 mg 1X ONCE 06/29/19 17:00 06/29/19 17:01 DC 06/29/19 17:17 5 MG Ceftolozane/ Tazobactam 1500 mg/Sodium Chloride 100 ml @ 100 mls/hr Q8HRS 07/02/19 17:30 07/04/19 06:08 100 MLS/HR Donepezil HCl (Aricept) 5 mg BID 06/29/19 21:00 07/04/19 08:02 5 MG Enoxaparin Sodium (Lovenox 40mg Syringe) 40 mg Q24H 06/28/19 15:00 07/03/19 14:59 40 MG Fentanyl (Duragesic 50mcg/ Hr Patch) 1 patch Q3DAYS 06/30/19 09:00 07/03/19 08:48 1 PATCH Ferrous Sulfate (Feosol) 325 mg DAILY08 06/30/19 08:00 07/04/19 08:02 325 MG Gabapentin (Neurontin) 300 mg HS 06/29/19 21:00 07/03/19 21:53 300 MG Hydralazine HCl (Apresoline Inj) 10 mg PRN Q4HRS PRN 07/03/19 05:45 07/03/19 21:54 10 MG Lansoprazole (Prevacid) 30 mg BIDBFRMEAL 06/29/19 17:30 07/04/19 08:01 30 MG Lorazepam (Ativan Inj) 2 mg 1X ONCE 06/27/19 21:00 06/27/19 21:01 DC 06/27/19 20:56 2 MG Lorazepam (Ativan) 0.5 mg DAILY 06/30/19 09:00 07/04/19 08:01 0.5 MG Losartan Potassium (Cozaar) 100 mg 1X ONCE 06/29/19 17:00 06/29/19 17:01 DC 06/29/19 17:17 100 MG Metoclopramide HCl (Reglan) 5 mg QIDACHS 06/29/19 16:45 07/04/19 08:02 5 MG Metoprolol Tartrate (Lopressor Vial) 2.5 mg PRN Q4HRS PRN 06/29/19 03:00 06/29/19 13:18 2.5 MG Morphine Sulfate (Morphine Sulfate) 2 mg 1X ONCE 07/03/19 12:15 07/03/19 12:24 DC 07/03/19 12:27 2 MG Norepinephrine Bitartrate 250 ml @ 9.355 mls/ hr CONT PRN 06/28/19 00:15 07/02/19 13:40 DC 06/28/19 00:22 9.355 MLS/HR Ondansetron HCl (Zofran Odt) 4 mg QIDPRN PRN 06/29/19 16:45 07/03/19 18:05 4 MG Ondansetron HCl (Zofran) 4 mg PRN Q6HRS PRN 07/03/19 18:45 07/03/19 19:00 4 MG Oxycodone/ Acetaminophen (Percocet 7.5/ 325) 1 tab 1X ONCE 07/02/19 20:30 07/02/19 20:31 DC 07/02/19 20:55 1 TAB Pantoprazole Sodium (Protonix) 40 mg BIDAC 06/29/19 17:00 06/29/19 17:08 DC Piperacillin Sod/ Tazobactam Sod (Zosyn Per Pharmacy) 1 each PRN DAILY PRN 06/28/19 00:15 07/02/19 16:54 DC Piperacillin Sod/ Tazobactam Sod 3.375 gm/Sodium Chloride 50 ml @ 100 mls/hr Q6HRS 06/28/19 06:00 07/02/19 16:54 DC 07/02/19 11:43 100 MLS/HR Sodium Chloride 1,000 ml @ 75 mls/hr [id number] 06/28/19 07:45 07/03/19 22:51 75 MLS/HR Vancomycin HCl (Vanco Per Pharmacy) 1 each PRN DAILY PRN 06/28/19 00:15 07/02/19 16:54 DC 07/01/19 10:58 1 EACH Vancomycin HCl (Vancomycin Trough Level) 1 each 1X ONCE 06/29/19 14:30 06/29/19 14:31 DC 06/29/19 14:30 1 EACH Vancomycin HCl 1.25 gm/Sodium Chloride 250 ml @ 167 mls/hr ONCE ONCE 06/27/19 21:45 06/27/19 23:14 DC 06/27/19 23:50 167 MLS/HR Vancomycin HCl 750 mg/Sodium Chloride 250 ml @ 250 mls/hr Q24H 06/29/19 00:00 06/28/19 14:07 DC Vancomycin HCl 1 gm/Sodium Chloride 250 ml @ 250 mls/hr Q12H 06/28/19 15:00 07/02/19 16:54 DC 07/02/19 15:25 250 MLS/HR Labs: Lab Laboratory Tests Test 07/03/19 19:29 07/04/19 00:20 07/04/19 06:25 Troponin I Quantitative < 0.017 ng/mL (0.000-0.055) < 0.017 ng/mL (0.000-0.055) < 0.017 ng/mL (0.000-0.055) White Blood Count 12.1 x10^3/uL (4.0-11.0) Red Blood Count 3.84 x10^6/uL (3.50-5.40) Hemoglobin 9.9 g/dL (12.0-15.5) Hematocrit 31.8 % (36.0-47.0) Mean Corpuscular Volume 83 fL (79-100) Mean Corpuscular Hemoglobin 26 pg (25-35) Mean Corpuscular Hemoglobin Concent 31 g/dL (31-37) Red Cell Distribution Width 16.4 % (11.5-14.5) Platelet Count 283 x10^3/uL (140-400) Neutrophils (%) (Auto) 80 % (31-73) Lymphocytes (%) (Auto) 15 % (24-48) Monocytes (%) (Auto) 4 % (0-9) Eosinophils (%) (Auto) 2 % (0-3) Basophils (%) (Auto) 0 % (0-3) Neutrophils # (Auto) 9.6 x10^3/uL (1.8-7.7) Lymphocytes # (Auto) 1.8 x10^3/uL (1.0-4.8) Monocytes # (Auto) 0.5 x10^3/uL (0.0-1.1) Eosinophils # (Auto) 0.2 x10^3/uL (0.0-0.7) Basophils # (Auto) 0.0 x10^3/uL (0.0-0.2) Sodium Level 147 mmol/L (136-145) Potassium Level 3.3 mmol/L (3.5-5.1) Chloride Level 108 mmol/L (98-107) Carbon Dioxide Level 32 mmol/L (21-32) Anion Gap 7 (6-14) Blood Urea Nitrogen 8 mg/dL (7-20) Creatinine 0.7 mg/dL (0.6-1.0) Estimated GFR (Cockcroft-Gault) 97.9 BUN/Creatinine Ratio 11 (6-20) Glucose Level 82 mg/dL (70-99) Calcium Level 8.6 mg/dL (8.5-10.1) Total Bilirubin 0.2 mg/dL (0.2-1.0) Aspartate Amino Transf (AST/SGOT) 19 U/L (15-37) Alanine Aminotransferase (ALT/SGPT) 15 U/L (14-59) Alkaline Phosphatase 66 U/L (46-116) Total Protein 6.6 g/dL (6.4-8.2) Albumin 2.3 g/dL (3.4-5.0) Albumin/Globulin Ratio 0.5 (1.0-1.7) Objective: Assessment: 1. Multidrug resistant CRE Pseudomonas pneumonia, on Zerbaxa since 07/02/2019. Could be colonization as pt's resp status improved without directed therapy. Has h/o recurrent mucus plugging and h/o previous MDR PSAE Resp infection in the past 2. Acute respiratory failure with underlying chronic respiratory failure. 3. History of lung cancer, status post trach. 4. Status post PEG tube. 5. Protein-calorie malnutrition. 6. Leukocytosis, resolved. Plan: Plan of Care Continue with Zerbaxa for now Continue supportive care. Follow up labs and cultures. aggressive pulm care as you are doing d/w ELIE Griffin MD Jul 04, 2019 09:49
[2019-07-04 10:23] VITALS: BP 130/61
--- NOTE | 2019-07-04 11:08 | EKG ---
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
--- NOTE | 2019-07-04 12:06 | NUR ---
SS following up with discharge planning. Pt transferred to Cardiac floor over the weekend. Pt wanting to return to home at discharge with continued oxygen services and home healthcare. SS will continue to follow for discharge planning.
--- NOTE | 2019-07-04 12:11 | PDOC ---
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 trach Chronic dysphagia, chronically PEG on tube feeds Severe malnutrition Anemia of chronic disease History of lung cancer and laryngeal cancer. 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 s/p radiation and chemo, trach done at [facility] July 2015. now s/p Erbitux, completed here in September 2015. 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 History of Present Illness History of Present Illness cont current broad abx started for MDR pseudomonas, may be colonized, pulm and ID following Vitals Vitals Vital Signs Date Time Temp Pulse Resp B/P (MAP) Pulse Ox O2 Delivery O2 Flow Rate FiO2 07/04/19 11:41 99 Tracheal Collar 8.0 07/04/19 10:23 97.0 90 16 130/61 (84) 97.0 Physical Exam Physical Exam GENERAL: Alert and oriented x 3 female, cachectic, lying in bed comfortably, in no acute distress, pleasant, cooperative. HEENT: Normocephalic, atraumatic, anicteric. NECK: Supple, no JVD. Tracheostomy in place. Clear bilaterally, a few scattered rhonchi present. No wheezing. HEART: S1, S2. No gallops or murmurs. ABDOMEN: Soft, nontender, nondistended. PEG tube site looks okay. GENITOURINARY: Nolasco in place. EXTREMITIES: No edema, no cyanosis. CENTRAL NERVOUS SYSTEM: Alert and oriented x 3, grossly nonfocal. MUSCULOSKELETAL: No muscular atrophy present. No other changes. DERMATOLOGIC: Warm, dry. No generalized rash. General: Alert, Oriented X3, Cooperative, No acute distress, Other (Neck: Trach. collar intact ) Heart: Regular rate, Normal S1, Normal S2, No murmurs Lungs: Crackles Abdomen: Normal bowel sounds, Soft, No tenderness, No hepatosplenomegaly Extremities: No clubbing, No cyanosis, No edema, Normal pulses Skin: No rashes, No breakdown, No significant lesion Labs LABS Laboratory Tests Test 07/03/19 19:29 07/04/19 00:20 07/04/19 06:25 Troponin I Quantitative < 0.017 ng/mL (0.000-0.055) < 0.017 ng/mL (0.000-0.055) < 0.017 ng/mL (0.000-0.055) White Blood Count 12.1 x10^3/uL (4.0-11.0) Red Blood Count 3.84 x10^6/uL (3.50-5.40) Hemoglobin 9.9 g/dL (12.0-15.5) Hematocrit 31.8 % (36.0-47.0) Mean Corpuscular Volume 83 fL (79-100) Mean Corpuscular Hemoglobin 26 pg (25-35) Mean Corpuscular Hemoglobin Concent 31 g/dL (31-37) Red Cell Distribution Width 16.4 % (11.5-14.5) Platelet Count 283 x10^3/uL (140-400) Neutrophils (%) (Auto) 80 % (31-73) Lymphocytes (%) (Auto) 15 % (24-48) Monocytes (%) (Auto) 4 % (0-9) Eosinophils (%) (Auto) 2 % (0-3) Basophils (%) (Auto) 0 % (0-3) Neutrophils # (Auto) 9.6 x10^3/uL (1.8-7.7) Lymphocytes # (Auto) 1.8 x10^3/uL (1.0-4.8) Monocytes # (Auto) 0.5 x10^3/uL (0.0-1.1) Eosinophils # (Auto) 0.2 x10^3/uL (0.0-0.7) Basophils # (Auto) 0.0 x10^3/uL (0.0-0.2) Sodium Level 147 mmol/L (136-145) Potassium Level 3.3 mmol/L (3.5-5.1) Chloride Level 108 mmol/L (98-107) Carbon Dioxide Level 32 mmol/L (21-32) Anion Gap 7 (6-14) Blood Urea Nitrogen 8 mg/dL (7-20) Creatinine 0.7 mg/dL (0.6-1.0) Estimated GFR (Cockcroft-Gault) 97.9 BUN/Creatinine Ratio 11 (6-20) Glucose Level 82 mg/dL (70-99) Calcium Level 8.6 mg/dL (8.5-10.1) Total Bilirubin 0.2 mg/dL (0.2-1.0) Aspartate Amino Transf (AST/SGOT) 19 U/L (15-37) Alanine Aminotransferase (ALT/SGPT) 15 U/L (14-59) Alkaline Phosphatase 66 U/L (46-116) Total Protein 6.6 g/dL (6.4-8.2) Albumin 2.3 g/dL (3.4-5.0) Albumin/Globulin Ratio 0.5 (1.0-1.7) Assessment and Plan Assessmemt and Plan Problems Medical Problems: (1) Aspiration pneumonia Status: Acute Comment Review of Relevant I have reviewed the following items miko (where applicable) has been applied. Labs Laboratory Tests Test 07/03/19 04:00 07/03/19 19:29 07/04/19 00:20 07/04/19 06:25 White Blood Count 7.4 x10^3/uL (4.0-11.0) 12.1 x10^3/uL (4.0-11.0) Red Blood Count 3.99 x10^6/uL (3.50-5.40) 3.84 x10^6/uL (3.50-5.40) Hemoglobin 10.7 g/dL (12.0-15.5) 9.9 g/dL (12.0-15.5) Hematocrit 33.2 % (36.0-47.0) 31.8 % (36.0-47.0) Mean Corpuscular Volume 83 fL (79-100) 83 fL (79-100) Mean Corpuscular Hemoglobin 27 pg (25-35) 26 pg (25-35) Mean Corpuscular Hemoglobin Concent 32 g/dL (31-37) 31 g/dL (31-37) Red Cell Distribution Width 15.7 % (11.5-14.5) 16.4 % (11.5-14.5) Platelet Count 322 x10^3/uL (140-400) 283 x10^3/uL (140-400) Neutrophils (%) (Auto) 69 % (31-73) 80 % (31-73) Lymphocytes (%) (Auto) 22 % (24-48) 15 % (24-48) Monocytes (%) (Auto) 5 % (0-9) 4 % (0-9) Eosinophils (%) (Auto) 4 % (0-3) 2 % (0-3) Basophils (%) (Auto) 1 % (0-3) 0 % (0-3) Neutrophils # (Auto) 5.1 x10^3/uL (1.8-7.7) 9.6 x10^3/uL (1.8-7.7) Lymphocytes # (Auto) 1.6 x10^3/uL (1.0-4.8) 1.8 x10^3/uL (1.0-4.8) Monocytes # (Auto) 0.4 x10^3/uL (0.0-1.1) 0.5 x10^3/uL (0.0-1.1) Eosinophils # (Auto) 0.3 x10^3/uL (0.0-0.7) 0.2 x10^3/uL (0.0-0.7) Basophils # (Auto) 0.0 x10^3/uL (0.0-0.2) 0.0 x10^3/uL (0.0-0.2) Sodium Level 144 mmol/L (136-145) 147 mmol/L (136-145) Potassium Level 3.3 mmol/L (3.5-5.1) 3.3 mmol/L (3.5-5.1) Chloride Level 107 mmol/L (98-107) 108 mmol/L (98-107) Carbon Dioxide Level 30 mmol/L (21-32) 32 mmol/L (21-32) Anion Gap 7 (6-14) 7 (6-14) Blood Urea Nitrogen 7 mg/dL (7-20) 8 mg/dL (7-20) Creatinine 0.7 mg/dL (0.6-1.0) 0.7 mg/dL (0.6-1.0) Estimated GFR (Cockcroft-Gault) 97.9 97.9 BUN/Creatinine Ratio 10 (6-20) 11 (6-20) Glucose Level 72 mg/dL (70-99) 82 mg/dL (70-99) Calcium Level 9.4 mg/dL (8.5-10.1) 8.6 mg/dL (8.5-10.1) Total Bilirubin 0.3 mg/dL (0.2-1.0) 0.2 mg/dL (0.2-1.0) Aspartate Amino Transf (AST/SGOT) 17 U/L (15-37) 19 U/L (15-37) Alanine Aminotransferase (ALT/SGPT) 8 U/L (14-59) 15 U/L (14-59) Alkaline Phosphatase 68 U/L (46-116) 66 U/L (46-116) Total Protein 8.0 g/dL (6.4-8.2) 6.6 g/dL (6.4-8.2) Albumin 2.5 g/dL (3.4-5.0) 2.3 g/dL (3.4-5.0) Albumin/Globulin Ratio 0.5 (1.0-1.7) 0.5 (1.0-1.7) Troponin I Quantitative < 0.017 ng/mL (0.000-0.055) < 0.017 ng/mL (0.000-0.055) < 0.017 ng/mL (0.000-0.055) Laboratory Tests Test 07/03/19 19:29 07/04/19 00:20 07/04/19 06:25 Troponin I Quantitative < 0.017 ng/mL (0.000-0.055) < 0.017 ng/mL (0.000-0.055) < 0.017 ng/mL (0.000-0.055) White Blood Count 12.1 x10^3/uL (4.0-11.0) Red Blood Count 3.84 x10^6/uL (3.50-5.40) Hemoglobin 9.9 g/dL (12.0-15.5) Hematocrit 31.8 % (36.0-47.0) Mean Corpuscular Volume 83 fL (79-100) Mean Corpuscular Hemoglobin 26 pg (25-35) Mean Corpuscular Hemoglobin Concent 31 g/dL (31-37) Red Cell Distribution Width 16.4 % (11.5-14.5) Platelet Count 283 x10^3/uL (140-400) Neutrophils (%) (Auto) 80 % (31-73) Lymphocytes (%) (Auto) 15 % (24-48) Monocytes (%) (Auto) 4 % (0-9) Eosinophils (%) (Auto) 2 % (0-3) Basophils (%) (Auto) 0 % (0-3) Neutrophils # (Auto) 9.6 x10^3/uL (1.8-7.7) Lymphocytes # (Auto) 1.8 x10^3/uL (1.0-4.8) Monocytes # (Auto) 0.5 x10^3/uL (0.0-1.1) Eosinophils # (Auto) 0.2 x10^3/uL (0.0-0.7) Basophils # (Auto) 0.0 x10^3/uL (0.0-0.2) Sodium Level 147 mmol/L (136-145) Potassium Level 3.3 mmol/L (3.5-5.1) Chloride Level 108 mmol/L (98-107) Carbon Dioxide Level 32 mmol/L (21-32) Anion Gap 7 (6-14) Blood Urea Nitrogen 8 mg/dL (7-20) Creatinine 0.7 mg/dL (0.6-1.0) Estimated GFR (Cockcroft-Gault) 97.9 BUN/Creatinine Ratio 11 (6-20) Glucose Level 82 mg/dL (70-99) Calcium Level 8.6 mg/dL (8.5-10.1) Total Bilirubin 0.2 mg/dL (0.2-1.0) Aspartate Amino Transf (AST/SGOT) 19 U/L (15-37) Alanine Aminotransferase (ALT/SGPT) 15 U/L (14-59) Alkaline Phosphatase 66 U/L (46-116) Total Protein 6.6 g/dL (6.4-8.2) Albumin 2.3 g/dL (3.4-5.0) Albumin/Globulin Ratio 0.5 (1.0-1.7) Microbiology 06/27/19 - Final, Complete 06/27/19 - Final, Complete 06/27/19 - Final, Complete 06/27/19 Gram Stain Evaluation - Final, Complete 06/27/19 Sputum Culture - Final, Complete 06/27/19 Sputum Result 1 - Final, Complete 06/27/19 Sputum Result 2 - Final, Complete 06/27/19 Antimicrobic Susceptibility - Final, Complete 06/27/19 Blood Culture - Final, Complete NO GROWTH AFTER 5 DAYS Medications Current Medications Albuterol/ Ipratropium (Duoneb) 3 ml 1X ONCE NEB Last administered on 06/27/19at 20:51; Start 06/27/19 at 20:15; Stop 06/27/19 at 20:16; Status DC Sodium Chloride 1,000 ml @ 125 mls/hr 1X ONCE IV Last administered on 06/27/19at 21:15; Start 06/27/19 at 20:15; Stop 06/28/19 at 04:14; Status DC Lorazepam (Ativan Inj) 2 mg 1X ONCE IVP Last administered on 06/27/19at 20:56; Start 06/27/19 at 21:00; Stop 06/27/19 at 21:01; Status DC Vancomycin HCl 250 ml @ 250 mls/hr 1X ONCE IV ; Start 06/27/19 at 21:30; Stop 06/27/19 at 22:29; Status UNV Piperacillin Sod/ Tazobactam Sod 3.375 gm/Sodium Chloride 50 ml @ 100 mls/hr 1X ONCE IV Last administered on 06/27/19at 22:33; Start 06/27/19 at 21:30; Stop 06/27/19 at 21:59; Status DC Vancomycin HCl 1.25 gm/Sodium Chloride 250 ml @ 167 mls/hr ONCE ONCE IV Last administered on 06/27/19at 23:50; Start 06/27/19 at 21:45; Stop 06/27/19 at 23:14; Status DC Ondansetron HCl (Zofran) 4 mg PRN Q8HRS PRN IV NAUSEA/VOMITING 1ST CHOICE; Start 06/27/19 at 22:30; Stop 06/28/19 at 22:29; Status DC Morphine Sulfate (Morphine Sulfate) 2 mg PRN Q2HR PRN IV SEVERE PAIN 7-10; Start 06/27/19 at 22:30; Stop 06/28/19 at 22:29; Status DC Albuterol/ Ipratropium (Duoneb) 3 ml RTQID NEB Last administered on 06/28/19at 08:38; Start 06/28/19 at 08:00; Stop 06/28/19 at 16:03; Status DC Norepinephrine Bitartrate 250 ml @ 9.355 mls/ hr CONT PRN IV SEE I/O RECORD Last administered on 06/28/19at 00:22; Start 06/28/19 at 00:15; Stop 07/02/19 at 13:40; Status DC Piperacillin Sod/ Tazobactam Sod (Zosyn Per Pharmacy) 1 each PRN DAILY PRN MC SEE COMMENTS; Start 06/28/19 at 00:15; Stop 07/02/19 at 16:54; Status DC Vancomycin HCl (Vanco Per Pharmacy) 1 each PRN DAILY PRN MC SEE COMMENTS Last administered on 07/01/19at 10:58; Start 06/28/19 at 00:15; Stop 07/02/19 at 16:54; Status DC Piperacillin Sod/ Tazobactam Sod 3.375 gm/Sodium Chloride 50 ml @ 100 mls/hr Q6HRS IV Last administered on 07/02/19at 11:43; Start 06/28/19 at 06:00; Stop 07/02/19 at 16:54; Status DC Vancomycin HCl 750 mg/Sodium Chloride 250 ml @ 250 mls/hr Q24H IV ; Start 06/29/19 at 00:00; Stop 06/28/19 at 14:07; Status DC Vancomycin HCl (Vancomycin Trough Level) 1 each 1X ONCE MC Last administered on 06/29/19at 14:30; Start 06/29/19 at 14:30; Stop 06/29/19 at 14:31; Status DC Sodium Chloride 1,000 ml @ 75 mls/hr [id number] IV Last administered on 07/03/19at 22:51; Start 06/28/19 at 07:45 Albuterol Sulfate (Ventolin Neb Soln) 2.5 mg QID NEB Last administered on 07/04/19at 11:40; Start 06/28/19 at 13:00 Albuterol Sulfate (Ventolin Neb Soln) 2.5 mg PRN Q3HRS PRN NEB SOA; Start 06/28/19 at 12:00 Enoxaparin Sodium (Lovenox 40mg Syringe) 40 mg Q24H SQ Last administered on 07/03/19at 14:59; Start 06/28/19 at 15:00 Vancomycin HCl 1 gm/Sodium Chloride 250 ml @ 250 mls/hr Q12H IV Last administered on 07/02/19at 15:25; Start 06/28/19 at 15:00; Stop 07/02/19 at 16:54; Status DC Morphine Sulfate (Morphine Sulfate) 2 mg PRN Q2HR PRN IV SEVERE PAIN 7-10 Last administered on 06/29/19at 11:50; Start 06/29/19 at 00:00; Stop 06/29/19 at 18:02; Status DC Acetaminophen (Tylenol Supp) 650 mg PRN Q6HRS PRN RC MILD PAIN / TEMP Last administered on 06/29/19at 03:11; Start 06/29/19 at 03:00 Metoprolol Tartrate (Lopressor Vial) 2.5 mg PRN Q4HRS PRN IVP HEART RATE Last administered on 06/29/19at 13:18; Start 06/29/19 at 03:00 Amlodipine Besylate (Norvasc) 5 mg DAILY PO Last administered on 07/04/19at 08:02; Start 06/30/19 at 09:00 Donepezil HCl (Aricept) 5 mg BID PEG Last administered on 07/04/19 08:02; Start 06/29/19 at 21:00 Ferrous Sulfate (Feosol) 325 mg DAILY08 PO Last administered on 07/04/19 08:02; Start 06/30/19 at 08:00 Metoclopramide HCl (Reglan) 5 mg QIDACHS PO Last administered on 07/04/19at 08:02; Start 06/29/19 at 16:45 Ondansetron HCl (Zofran Odt) 4 mg QIDPRN PRN PEG NAUSEA/VOMITING Last administered on 07/03/19at 18:05; Start 06/29/19 at 16:45 Oxycodone/ Acetaminophen (Percocet 7.5/ 325) 1 tab PRN QID PRN PO MODERATE TO SEVERE PAIN Last administered on 07/03/19at 21:54; Start 06/29/19 at 16:45 Pantoprazole Sodium (Protonix) 40 mg BIDAC PO ; Start 06/29/19 at 17:00; Stop 06/29/19 at 17:08; Status DC Losartan Potassium (Cozaar) 100 mg DAILY PO Last administered on 07/04/19at 08:02; Start 06/30/19 at 09:00 Gabapentin (Neurontin) 300 mg HS PO Last administered on 07/03/19 21:53; Start 06/29/19 at 21:00 Lorazepam (Ativan) 0.5 mg DAILY PO Last administered on 07/04/19 08:01; Start 06/30/19 at 09:00 Fentanyl (Duragesic 50mcg/ Hr Patch) 1 patch Q3DAYS TD ; Start 06/29/19 at 17:00; Stop 06/29/19 at 16:57; Status DC Amlodipine Besylate (Norvasc) 5 mg 1X ONCE PO Last administered on 06/29/19 17:17; Start 06/29/19 at 17:00; Stop 06/29/19 at 17:01; Status DC Losartan Potassium (Cozaar) 100 mg 1X ONCE PO Last administered on 06/29/19 17:17; Start 06/29/19 at 17:00; Stop 06/29/19 at 17:01; Status DC Fentanyl (Duragesic 50mcg/ Hr Patch) 1 patch Q3DAYS TD Last administered on 07/03/19at 08:48; Start 06/30/19 at 09:00 Lansoprazole (Prevacid) 30 mg BIDBFRMEAL FT Last administered on 07/04/19 08:01; Start 06/29/19 at 17:30 Ceftolozane/ Tazobactam 1500 mg/Sodium Chloride 100 ml @ 100 mls/hr Q8HRS IV Last administered on 07/04/19 06:08; Start 07/02/19 at 17:30 Oxycodone/ Acetaminophen (Percocet 7.5/ 325) 1 tab 1X ONCE PEG Last administered on 07/02/19at 20:55; Start 07/02/19 at 20:30; Stop 07/02/19 at 20:31; Status DC Hydralazine HCl (Apresoline Inj) 10 mg PRN Q4HRS PRN IVP ELEVATED BP, SEE COMMENTS Last administered on 07/03/19at 21:54; Start 07/03/19 at 05:45 Morphine Sulfate (Morphine Sulfate) 2 mg 1X ONCE IM ; Start 07/03/19 at 12:15; Stop 07/03/19 at 12:16; Status Cancel Morphine Sulfate (Morphine Sulfate) 2 mg 1X ONCE IV Last administered on 07/03/19at 12:27; Start 07/03/19 at 12:15; Stop 07/03/19 at 12:24; Status DC Ondansetron HCl (Zofran) 4 mg PRN Q6HRS PRN IVP NAUSEA/VOMITING Last administered on 07/03/19at 19:00; Start 07/03/19 at 18:45 Active Scripts Active Ferrous Sulfate 325 Mg Tablet 1 Tab PO DAILY Percocet 7.5-325 Mg Tablet (Oxycodone/Acetaminophen) 1 Each Tablet 1 Tab PO QID PRN MDD 1 FENTANYL 50mcg/hr (Fentanyl) 1 Each Patch.td72 1 Patch TP Q3DAYS MDD 1 Culturelle (Lactobacillus Rhamnosus Gg) 1 Each Cap.sprink 1 Cap PO BID 30 Days Reported Ativan (Lorazepam) 0.5 Mg Tablet 0.5 Mg PO DAILY Gabapentin (Gabapentin) 300 Mg Capsule 300 Mg PO HS Diovan (Valsartan) 160 Mg Tablet 160 Mg PO DAILY Albuterol Sulfate Neb Soln (Albuterol Sulfate) 0.63 Mg/3 Ml Vial.neb 1 Vial NEB QID Gabapentin (Gabapentin) 300 Mg Capsule 300 Mg PO BID PRN Amlodipine Besylate 5 Mg Tablet 5 Mg PO DAILY Pantoprazole Sodium (Pantoprazole Sodium) 40 Mg Tablet.dr 40 Mg PEG BID Donepezil Hcl 5 Mg Tablet 5 Mg PEG BID Reglan (Metoclopramide Hcl) 10 Mg Tablet 5 Mg PO QIDACHS Cyproheptadine Hcl 2 Mg/5 Ml Syrup 10 Ml PEG TID Ondansetron Odt (Ondansetron) 4 Mg Tab.rapdis 4 Mg PEG QIDPRN PRN Vitals/I & O Vital Sign - Last 24 Hours 07/03/19 07/03/19 07/03/19 07/03/19 12:27 13:09 13:10 14:59 O2 Delivery Tracheal Collar Tracheal Collar O2 Flow Rate 8.0 8.0 8.0 8.0 07/03/19 07/03/19 07/03/19 07/03/19 15:32 15:43 16:00 19:05 Temp 98.9 98.9 Pulse 103 Resp 20 B/P (MAP) 157/78 (104) Pulse Ox 100 93 91 O2 Delivery Tracheal Collar Venturi Mask Tracheal Collar O2 Flow Rate 8.0 8.0 8.0 15.0 07/03/19 07/03/19 07/03/19 07/03/19 19:49 20:00 21:54 21:54 Temp 98.8 98.8 Pulse 113 113 Resp 26 20 B/P (MAP) 171/78 (109) 171/78 Pulse Ox 95 96 O2 Delivery Tracheal Collar Trach Collar Tracheal Collar O2 Flow Rate 15.0 15.0 15.0 07/03/19 07/04/19 07/04/19 07/04/19 23:18 00:15 03:00 04:15 Temp 99.2 99.2 Pulse 103 Resp 20 B/P (MAP) 143/64 (90) Pulse Ox 99 100 100 O2 Delivery Tracheal Collar Tracheal Collar Tracheal Collar O2 Flow Rate 15.0 8.0 07/04/19 07/04/19 07/04/19 07/04/19 04:34 07:17 07:20 08:02 Temp 97.7 97.8 97.7 97.8 Pulse 89 86 100 Resp 16 16 B/P (MAP) 174/82 (112) 190/90 (123) 190/90 Pulse Ox 100 99 100 O2 Delivery Tracheal Collar Tracheal Collar Tracheal Collar O2 Flow Rate 15.0 8.0 15.0 07/04/19 07/04/19 07/04/19 08:02 10:23 11:41 Temp 97.0 97.0 Pulse 100 90 Resp 16 B/P (MAP) 190/90 130/61 (84) Pulse Ox 100 99 O2 Delivery Tracheal Collar Tracheal Collar O2 Flow Rate 15.0 8.0 Intake and Output 07/03/19 07/03/19 07/04/19 15:00 23:00 07:00 Intake Total 1335 ml 1400 ml 0 ml Output Total 700 ml 200 ml 850 ml Balance 635 ml 1200 ml -850 ml Nutrition Consultation Dietary Evaluation: Recommendations by RD: Increase Calorie Intake Comments: Continue w/TFs as ordered - Jevity 1.5 bolus feeds 4x/day (1 carton/237 ml per feeding) w/200 ml water flushes w/each feeding Expected Outcomes/Goals: Initiation of TFs within 24 - 48 hrs - met, new goal established New goal 07/01: TF infusion to meet >75% est needs Malnutrition Findings: Body Fat Depletion (Non Severe: Mod to Severe Weight Status: Underweight RUDDY QUEZADA MD Jul 04, 2019 12:11
[2019-07-04 14:28] VITALS: BP 143/65
--- NOTE | 2019-07-04 15:46 | RAD ---
EXAM: ABDOMEN ONE VIEW. HISTORY: Nausea and vomiting. COMPARISON: 12/15/2018, 06/27/2019. FINDINGS: A frontal view of the abdomen is obtained. There are no distended small bowel loops. There is gas distally. There are surgical clips at the hiatus. A gastrostomy catheter is noted. Multiple calcifications in the pelvis measure up to 2.9 cm and are consistent with degenerated fibroids. IMPRESSION: 1. No evidence of obstruction. Electronically signed by: Danny Nevarez MD (07/04/2019 3:43 PM) [facility]
[2019-07-04] MEDS: IV NORMAL SALINE 1000ML BAG 1,000 ML IV SCH (16:39)
[2019-07-04] MEDS: ENOXAPARIN 40 MG/0.4 ML SYRINGE. SQ SCH (16:40)
[2019-07-04 19:29] VITALS: BP 148/69
--- NOTE | 2019-07-04 22:00 | NUR ---
PT 2200 IV abt held d/t day RN Isis diaz at 1845, pharmacy instructed to give nest dose at 0400 in am. will cont to monitor pt safety and status. pmrn
[2019-07-04] MEDS: GABAPENTIN 300 MG CAPSULE. PO SCH (22:14)
[2019-07-04 23:02] VITALS: BP 165/74
[2019-07-05] MEDS: hydrALAZINE 20 MG/ML VIAL. IVP PRN (03:22)
[2019-07-05] MEDS: oxyCODONE/APAP 7.5/325 1 TAB TABLET PO PRN ×2 (03:35→09:12)
[2019-07-05] MEDS: CEFTOLOZANE/TAZOBACTAM 1,500 MG in IV NORMAL SALINE 100ML 100 ML IV SCH (05:22)
[2019-07-05] MEDS: IV NORMAL SALINE 1000ML BAG 1,000 ML IV SCH (05:23)
[2019-07-05 05:52] LABS: BASO # 0.1 x10^3/uL (0.0-0.2); BASO % 1 % (0-3); EOS # 0.4 x10^3/uL (0.0-0.7); EOS % 4 % (0-3); HEMATOCRIT 30.7 % (36.0-47.0); HEMOGLOBIN 9.8 g/dL (12.0-15.5); LYMPH # 2.3 x10^3/uL (1.0-4.8); LYMPH % 22 % (24-48); MEAN CORPUSCULAR HEMOGLOBIN 27 pg (25-35); MEAN CORPUSCULAR HGB CONC 32 g/dL (31-37); MEAN CORPUSCULAR VOLUME 83 fL (79-100); MONO # 0.5 x10^3/uL (0.0-1.1); MONO % 5 % (0-9); NEUT # 7.2 x10^3/uL (1.8-7.7); NEUT % 69 % (31-73); PLATELET COUNT 268 x10^3/uL (140-400); RED BLOOD COUNT 3.71 x10^6/uL (3.50-5.40); RED CELL DISTRIBUTION WIDTH 16.1 % (11.5-14.5); WHITE BLOOD COUNT 10.5 x10^3/uL (4.0-11.0)
[2019-07-05] MEDS: LANSOPRAZOLE 30 MG TAB.RAP.DR FT SCH (05:56)
[2019-07-05] MEDS: METOCLOPRAMIDE 5 MG TABLET. PO SCH ×2 (05:56→12:28)
[2019-07-05 06:07] LABS: ALBUMIN 2.2 g/dL (3.4-5.0); ALBUMIN/GLOBULIN RATIO 0.4 (1.0-1.7); CALCIUM 8.7 mg/dL (8.5-10.1); CREATININE 0.7 mg/dL (0.6-1.0); GFR 97.9; POTASSIUM 3.3 mmol/L (3.5-5.1); TOTAL BILIRUBIN 0.2 mg/dL (0.2-1.0); TOTAL PROTEIN 7.2 g/dL (6.4-8.2)
[2019-07-05 07:00] VITALS: BP 172/61
[2019-07-05] MEDS: ALBUTEROL SULFATE 2.5 MG/3 ML NEBU. NEB SCH ×2 (07:58→11:45)
--- NOTE | 2019-07-05 07:58 | PDOC ---
Infectious Disease Note Subjective: Subjective pt without complaints this am wants to go home ROS: ROS Negative otherwise. Vital Signs: Vital Signs Vital Signs Date Time Temp Pulse Resp B/P (MAP) Pulse Ox O2 Delivery O2 Flow Rate FiO2 07/05/19 04:35 Tracheal Collar 8.0 07/05/19 03:35 40 07/05/19 03:22 96 212/97 07/05/19 02:39 98.2 18 98.2 Physical Exam: PHYSICAL EXAM GENERAL: Alert and oriented x 3 female, cachectic, lying in bed comfortably, in no acute distress, pleasant, cooperative. HEENT: Normocephalic, atraumatic, anicteric. NECK: Supple, no JVD. Tracheostomy in place. Clear bilaterally, a few scattered rhonchi present. No wheezing. HEART: S1, S2. No gallops or murmurs. ABDOMEN: Soft, nontender, nondistended. PEG tube site looks okay. GENITOURINARY: Nolasco in place. EXTREMITIES: No edema, no cyanosis. CENTRAL NERVOUS SYSTEM: Alert and oriented x 3, grossly nonfocal. MUSCULOSKELETAL: No muscular atrophy present. No other changes. DERMATOLOGIC: Warm, dry. No generalized rash. Medications: Inpatient Meds: Current Medications Medications (Trade) Dose Ordered Sig/Yuliana Start Time Stop Time Status Last Admin Dose Admin Acetaminophen (Tylenol Supp) 650 mg PRN Q6HRS PRN 06/29/19 03:00 06/29/19 03:11 650 MG Albuterol Sulfate (Ventolin Neb Soln) 2.5 mg PRN Q3HRS PRN 06/28/19 12:00 Albuterol/ Ipratropium (Duoneb) 3 ml RTQID 06/28/19 08:00 06/28/19 16:03 DC 06/28/19 08:38 3 ML Amlodipine Besylate (Norvasc) 5 mg 1X ONCE 06/29/19 17:00 06/29/19 17:01 DC 06/29/19 17:17 5 MG Ceftolozane/ Tazobactam 1500 mg/Sodium Chloride 100 ml @ 100 mls/hr Q8HRS 07/02/19 17:30 07/05/19 05:22 100 MLS/HR Donepezil HCl (Aricept) 5 mg BID 06/29/19 21:00 07/04/19 22:14 5 MG Enoxaparin Sodium (Lovenox 40mg Syringe) 40 mg Q24H 06/28/19 15:00 07/04/19 16:40 40 MG Fentanyl (Duragesic 50mcg/ Hr Patch) 1 patch Q3DAYS 06/30/19 09:00 07/03/19 08:48 1 PATCH Ferrous Sulfate (Feosol) 325 mg DAILY08 06/30/19 08:00 07/04/19 08:02 325 MG Gabapentin (Neurontin) 300 mg HS 06/29/19 21:00 07/04/19 22:14 300 MG Hydralazine HCl (Apresoline Inj) 10 mg PRN Q4HRS PRN 07/03/19 05:45 07/05/19 03:22 10 MG Influenza Virus Vaccine Quadrival (Afluria Quad 2019-20 (3yr Up) Syringe) 0.5 ml ONCE ONCE 07/05/19 09:00 07/05/19 09:01 Lansoprazole (Prevacid) 30 mg BIDBFRMEAL 06/29/19 17:30 07/05/19 05:56 30 MG Lorazepam (Ativan Inj) 2 mg 1X ONCE 06/27/19 21:00 06/27/19 21:01 DC 06/27/19 20:56 2 MG Lorazepam (Ativan) 0.5 mg DAILY 06/30/19 09:00 07/04/19 08:01 0.5 MG Losartan Potassium (Cozaar) 100 mg 1X ONCE 06/29/19 17:00 06/29/19 17:01 DC 06/29/19 17:17 100 MG Metoclopramide HCl (Reglan) 5 mg QIDACHS 06/29/19 16:45 07/05/19 05:56 5 MG Metoprolol Tartrate (Lopressor Vial) 2.5 mg PRN Q4HRS PRN 06/29/19 03:00 06/29/19 13:18 2.5 MG Morphine Sulfate (Morphine Sulfate) 2 mg 1X ONCE 07/03/19 12:15 07/03/19 12:24 DC 07/03/19 12:27 2 MG Norepinephrine Bitartrate 250 ml @ 9.355 mls/ hr CONT PRN 06/28/19 00:15 07/02/19 13:40 DC 06/28/19 00:22 9.355 MLS/HR Ondansetron HCl (Zofran Odt) 4 mg QIDPRN PRN 06/29/19 16:45 07/03/19 18:05 4 MG Ondansetron HCl (Zofran) 4 mg PRN Q6HRS PRN 07/03/19 18:45 07/03/19 19:00 4 MG Oxycodone/ Acetaminophen (Percocet 7.5/ 325) 1 tab 1X ONCE 07/02/19 20:30 07/02/19 20:31 DC 07/02/19 20:55 1 TAB Pantoprazole Sodium (Protonix) 40 mg BIDAC 06/29/19 17:00 06/29/19 17:08 DC Piperacillin Sod/ Tazobactam Sod (Zosyn Per Pharmacy) 1 each PRN DAILY PRN 06/28/19 00:15 07/02/19 16:54 DC Piperacillin Sod/ Tazobactam Sod 3.375 gm/Sodium Chloride 50 ml @ 100 mls/hr Q6HRS 06/28/19 06:00 07/02/19 16:54 DC 07/02/19 11:43 100 MLS/HR Sodium Chloride 1,000 ml @ 75 mls/hr [id number] 06/28/19 07:45 07/05/19 05:23 75 MLS/HR Vancomycin HCl (Vanco Per Pharmacy) 1 each PRN DAILY PRN 06/28/19 00:15 07/02/19 16:54 DC 07/01/19 10:58 1 EACH Vancomycin HCl (Vancomycin Trough Level) 1 each 1X ONCE 06/29/19 14:30 06/29/19 14:31 DC 06/29/19 14:30 1 EACH Vancomycin HCl 1.25 gm/Sodium Chloride 250 ml @ 167 mls/hr ONCE ONCE 06/27/19 21:45 06/27/19 23:14 DC 06/27/19 23:50 167 MLS/HR Vancomycin HCl 750 mg/Sodium Chloride 250 ml @ 250 mls/hr Q24H 06/29/19 00:00 06/28/19 14:07 DC Vancomycin HCl 1 gm/Sodium Chloride 250 ml @ 250 mls/hr Q12H 06/28/19 15:00 07/02/19 16:54 DC 07/02/19 15:25 250 MLS/HR Labs: Lab Laboratory Tests Test 07/05/19 05:30 White Blood Count 10.5 x10^3/uL (4.0-11.0) Red Blood Count 3.71 x10^6/uL (3.50-5.40) Hemoglobin 9.8 g/dL (12.0-15.5) Hematocrit 30.7 % (36.0-47.0) Mean Corpuscular Volume 83 fL (79-100) Mean Corpuscular Hemoglobin 27 pg (25-35) Mean Corpuscular Hemoglobin Concent 32 g/dL (31-37) Red Cell Distribution Width 16.1 % (11.5-14.5) Platelet Count 268 x10^3/uL (140-400) Neutrophils (%) (Auto) 69 % (31-73) Lymphocytes (%) (Auto) 22 % (24-48) Monocytes (%) (Auto) 5 % (0-9) Eosinophils (%) (Auto) 4 % (0-3) Basophils (%) (Auto) 1 % (0-3) Neutrophils # (Auto) 7.2 x10^3/uL (1.8-7.7) Lymphocytes # (Auto) 2.3 x10^3/uL (1.0-4.8) Monocytes # (Auto) 0.5 x10^3/uL (0.0-1.1) Eosinophils # (Auto) 0.4 x10^3/uL (0.0-0.7) Basophils # (Auto) 0.1 x10^3/uL (0.0-0.2) Sodium Level 144 mmol/L (136-145) Potassium Level 3.3 mmol/L (3.5-5.1) Chloride Level 106 mmol/L (98-107) Carbon Dioxide Level 32 mmol/L (21-32) Anion Gap 6 (6-14) Blood Urea Nitrogen 7 mg/dL (7-20) Creatinine 0.7 mg/dL (0.6-1.0) Estimated GFR (Cockcroft-Gault) 97.9 BUN/Creatinine Ratio 10 (6-20) Glucose Level 91 mg/dL (70-99) Calcium Level 8.7 mg/dL (8.5-10.1) Total Bilirubin 0.2 mg/dL (0.2-1.0) Aspartate Amino Transf (AST/SGOT) 20 U/L (15-37) Alanine Aminotransferase (ALT/SGPT) 13 U/L (14-59) Alkaline Phosphatase 64 U/L (46-116) Total Protein 7.2 g/dL (6.4-8.2) Albumin 2.2 g/dL (3.4-5.0) Albumin/Globulin Ratio 0.4 (1.0-1.7) Objective: Assessment: 1. Multidrug resistant CRE Pseudomonas pneumonia, on Zerbaxa since 07/02/2019. Could be colonization as pt's resp status improved without directed therapy. Has h/o recurrent mucus plugging and h/o previous MDR PSAE Resp infection in the past 2. Acute respiratory failure with underlying chronic respiratory failure. 3. History of lung cancer, status post trach. 4. Status post PEG tube. 5. Protein-calorie malnutrition. 6. Leukocytosis, resolved. Plan: Plan of Care Pt is clinically stable dc zerbaxa Pt has been treated with vanc and zosyn before that Continue supportive care. Follow up labs and cultures. aggressive pulm care ok to dc home from id standpoint on empiric augmentin d/w ELIE Griffin MD Jul 05, 2019 07:58
[2019-07-05] MEDS ORDERED: FLU VAX QS 2019-20 (36MOS+)/PF 0.5 ML SYRINGE. VAX IM ONE (09:00)
[2019-07-05] MEDS ORDERED: AMOXICILLIN/K CLAV 500/125MG TABLET. PO SCH (09:00)
[2019-07-05] MEDS: DONEPEZIL HCL 5 MG TABLET. PEG SCH (09:07)
[2019-07-05] MEDS: FERROUS SULFATE 325 MG TABLET. PO SCH (09:07)
[2019-07-05] MEDS: LOSARTAN POTASSIUM 50 MG TABLET. PO SCH (09:08)
[2019-07-05] MEDS: amLODIPine BESYLATE 5 MG TABLET PO SCH (09:08)
[2019-07-05] MEDS: LORazepam 0.5 MG TABLET PO SCH (09:09)
--- NOTE | 2019-07-05 09:34 | PDOC ---
PULMONARY PROGRESS NOTES Subjective BACK ON TS Vitals Vital Signs Date Time Temp Pulse Resp B/P (MAP) Pulse Ox O2 Delivery O2 Flow Rate FiO2 07/05/19 09:12 14 100 Tracheal Collar 8.0 07/05/19 09:08 97 172/61 07/05/19 07:00 97.8 97.8 ROS: No Nausea, No Chest Pain, No Abdominal Pain, No Increase Cough General: Alert, No acute distress HEENT: Other Lungs: Crackles Cardiovascular: S1, S2 Abdomen: Soft, Non-tender Neuro Exam: Alert Extremities: No Edema Skin: Warm Labs Laboratory Tests Test 07/03/19 19:29 07/04/19 00:20 07/04/19 06:25 07/05/19 05:30 Troponin I Quantitative < 0.017 ng/mL (0.000-0.055) < 0.017 ng/mL (0.000-0.055) < 0.017 ng/mL (0.000-0.055) White Blood Count 12.1 x10^3/uL (4.0-11.0) 10.5 x10^3/uL (4.0-11.0) Red Blood Count 3.84 x10^6/uL (3.50-5.40) 3.71 x10^6/uL (3.50-5.40) Hemoglobin 9.9 g/dL (12.0-15.5) 9.8 g/dL (12.0-15.5) Hematocrit 31.8 % (36.0-47.0) 30.7 % (36.0-47.0) Mean Corpuscular Volume 83 fL (79-100) 83 fL (79-100) Mean Corpuscular Hemoglobin 26 pg (25-35) 27 pg (25-35) Mean Corpuscular Hemoglobin Concent 31 g/dL (31-37) 32 g/dL (31-37) Red Cell Distribution Width 16.4 % (11.5-14.5) 16.1 % (11.5-14.5) Platelet Count 283 x10^3/uL (140-400) 268 x10^3/uL (140-400) Neutrophils (%) (Auto) 80 % (31-73) 69 % (31-73) Lymphocytes (%) (Auto) 15 % (24-48) 22 % (24-48) Monocytes (%) (Auto) 4 % (0-9) 5 % (0-9) Eosinophils (%) (Auto) 2 % (0-3) 4 % (0-3) Basophils (%) (Auto) 0 % (0-3) 1 % (0-3) Neutrophils # (Auto) 9.6 x10^3/uL (1.8-7.7) 7.2 x10^3/uL (1.8-7.7) Lymphocytes # (Auto) 1.8 x10^3/uL (1.0-4.8) 2.3 x10^3/uL (1.0-4.8) Monocytes # (Auto) 0.5 x10^3/uL (0.0-1.1) 0.5 x10^3/uL (0.0-1.1) Eosinophils # (Auto) 0.2 x10^3/uL (0.0-0.7) 0.4 x10^3/uL (0.0-0.7) Basophils # (Auto) 0.0 x10^3/uL (0.0-0.2) 0.1 x10^3/uL (0.0-0.2) Sodium Level 147 mmol/L (136-145) 144 mmol/L (136-145) Potassium Level 3.3 mmol/L (3.5-5.1) 3.3 mmol/L (3.5-5.1) Chloride Level 108 mmol/L (98-107) 106 mmol/L (98-107) Carbon Dioxide Level 32 mmol/L (21-32) 32 mmol/L (21-32) Anion Gap 7 (6-14) 6 (6-14) Blood Urea Nitrogen 8 mg/dL (7-20) 7 mg/dL (7-20) Creatinine 0.7 mg/dL (0.6-1.0) 0.7 mg/dL (0.6-1.0) Estimated GFR (Cockcroft-Gault) 97.9 97.9 BUN/Creatinine Ratio 11 (6-20) 10 (6-20) Glucose Level 82 mg/dL (70-99) 91 mg/dL (70-99) Calcium Level 8.6 mg/dL (8.5-10.1) 8.7 mg/dL (8.5-10.1) Total Bilirubin 0.2 mg/dL (0.2-1.0) 0.2 mg/dL (0.2-1.0) Aspartate Amino Transf (AST/SGOT) 19 U/L (15-37) 20 U/L (15-37) Alanine Aminotransferase (ALT/SGPT) 15 U/L (14-59) 13 U/L (14-59) Alkaline Phosphatase 66 U/L (46-116) 64 U/L (46-116) Total Protein 6.6 g/dL (6.4-8.2) 7.2 g/dL (6.4-8.2) Albumin 2.3 g/dL (3.4-5.0) 2.2 g/dL (3.4-5.0) Albumin/Globulin Ratio 0.5 (1.0-1.7) 0.4 (1.0-1.7) Laboratory Tests Test 07/05/19 05:30 White Blood Count 10.5 x10^3/uL (4.0-11.0) Red Blood Count 3.71 x10^6/uL (3.50-5.40) Hemoglobin 9.8 g/dL (12.0-15.5) Hematocrit 30.7 % (36.0-47.0) Mean Corpuscular Volume 83 fL (79-100) Mean Corpuscular Hemoglobin 27 pg (25-35) Mean Corpuscular Hemoglobin Concent 32 g/dL (31-37) Red Cell Distribution Width 16.1 % (11.5-14.5) Platelet Count 268 x10^3/uL (140-400) Neutrophils (%) (Auto) 69 % (31-73) Lymphocytes (%) (Auto) 22 % (24-48) Monocytes (%) (Auto) 5 % (0-9) Eosinophils (%) (Auto) 4 % (0-3) Basophils (%) (Auto) 1 % (0-3) Neutrophils # (Auto) 7.2 x10^3/uL (1.8-7.7) Lymphocytes # (Auto) 2.3 x10^3/uL (1.0-4.8) Monocytes # (Auto) 0.5 x10^3/uL (0.0-1.1) Eosinophils # (Auto) 0.4 x10^3/uL (0.0-0.7) Basophils # (Auto) 0.1 x10^3/uL (0.0-0.2) Sodium Level 144 mmol/L (136-145) Potassium Level 3.3 mmol/L (3.5-5.1) Chloride Level 106 mmol/L (98-107) Carbon Dioxide Level 32 mmol/L (21-32) Anion Gap 6 (6-14) Blood Urea Nitrogen 7 mg/dL (7-20) Creatinine 0.7 mg/dL (0.6-1.0) Estimated GFR (Cockcroft-Gault) 97.9 BUN/Creatinine Ratio 10 (6-20) Glucose Level 91 mg/dL (70-99) Calcium Level 8.7 mg/dL (8.5-10.1) Total Bilirubin 0.2 mg/dL (0.2-1.0) Aspartate Amino Transf (AST/SGOT) 20 U/L (15-37) Alanine Aminotransferase (ALT/SGPT) 13 U/L (14-59) Alkaline Phosphatase 64 U/L (46-116) Total Protein 7.2 g/dL (6.4-8.2) Albumin 2.2 g/dL (3.4-5.0) Albumin/Globulin Ratio 0.4 (1.0-1.7) Medications Active Scripts Medications Dose Route/Sig Max Daily Dose Days Date Category Ativan (Lorazepam) 0.5 Mg Tablet 0.5 Mg PO DAILY 06/28/19 Reported Gabapentin (Gabapentin) 300 Mg Capsule 300 Mg PO HS 06/28/19 Reported Diovan (Valsartan) 160 Mg Tablet 160 Mg PO DAILY 05/23/19 Reported Ferrous Sulfate 325 Mg Tablet 1 Tab PO DAILY 01/20/19 Rx Percocet 7.5-325 Mg Tablet (Oxycodone/Acetaminophen) 1 Each Tablet 1 Tab PO QID PRN MDD 1 12/09/18 Rx FENTANYL 50mcg/hr (Fentanyl) 1 Each Patch.td72 1 Patch TP Q3DAYS MDD 1 12/09/18 Rx Albuterol Sulfate Neb Soln (Albuterol Sulfate) 0.63 Mg/3 Ml Vial.neb 1 Vial NEB QID 12/02/18 Reported Gabapentin (Gabapentin) 300 Mg Capsule 300 Mg PO BID PRN 10/19/18 Reported Amlodipine Besylate 5 Mg Tablet 5 Mg PO DAILY 10/19/18 Reported Culturelle (Lactobacillus Rhamnosus Gg) 1 Each Cap.sprink 1 Cap PO BID 30 07/07/17 Rx Pantoprazole Sodium (Pantoprazole Sodium) 40 Mg Tablet.dr 40 Mg PEG BID 03/11/17 Reported Donepezil Hcl 5 Mg Tablet 5 Mg PEG BID 03/11/17 Reported Reglan (Metoclopramide Hcl) 10 Mg Tablet 5 Mg PO QIDACHS 03/11/17 Reported Cyproheptadine Hcl 2 Mg/5 Ml Syrup 10 Ml PEG TID 03/11/17 Reported Ondansetron Odt (Ondansetron) 4 Mg Tab.rapdis 4 Mg PEG QIDPRN PRN 06/19/14 Reported Impression . IMPRESSION: 1. Acute on chronic respiratory failure. 2. Bilateral pulmonary infiltrates, best seen on CT abdomen revealing evidence of consolidation. 3. Suspect pneumonia, gram-positive/gram-negative. 4. Lung cancer, status post tracheotomy. 5. Severe protein malnutrition, present upon admission. 6. History of methicillin-resistant Staphylococcus aureus and Pseudomonas infection and pneumonia in the past. 7. Status post PEG. 8. Leukocytosis. resolved Plan . D/W TEAM OK TO D/C PSA IN SPUTUM IS NOT NEW I THINK SHE IS COLONIZE AGREE WITH ID PT WANTS TO GO HOME ANURAG LOO MD Jul 05, 2019 09:34
[2019-07-05] MEDS ORDERED: AMOX1TAB10 PO (10:59)
--- NOTE | 2019-07-05 11:00 | SNU/HH DC ---
DISCHARGE WITH HOME HEALTH DISCHARGE INFORMATION: Discharge Date: Jul 05, 2019 Final Diagnosis: Problems Medical Problems: (1) Aspiration pneumonia Status: Acute Condition on Discharge: Stable HOME HEALTH: Face to Face: I certify this patient is under my care and that I, had a face to face encounter that meets the physician face to face encounter requirements with this patient on 07/05 Medical Complications: Pneumonia Chcf For: Enteral Feeding Care, Medication Management RN For Eval/Treatment: Yes Physical Therapy For: Evalulation/Treatment Occupational Therapy For: Evaluation/Treatment Pt Meets Homebound Status: Extreme weakness w/ amb., Other: (almost bedbound) POST DISCHARGE ORDERS: Activity Instructions for Disc: Activity as tolerated Weight Bearing Status after Di: No restrictions DIET AFTER DISCHARGE: bolus feeds Wound/Incision Care: No wound care needed CHECKS AFTER DISCHARGE: Checks after discharge: Check blood press - daily FOLLOW-UP: DC TO SNF LABS: BMP 06/22/18, Q 8 hours 750mg Zerbexa for MDRO PNA TREATMENT/EQUIPMENT ORDERS: Adaptive Equipment Issued: None, Bath Bench, Commode Discharge Respiratory Equipmen: Oxygen CERTIFICATION STATEMENT: Certification Statement: Certification Statement: Based on the above finding, I certify that this patient is confined to the home and needs intermittent longterm care, physical therapy and/or speech therapy, or continues to need occupational therapy.~ This patient is under my care, and I have initiated the establishment of the plan of care.~ This patient will be followed by myself or a community physician who will periodically review the plan of care. Home Meds Active Scripts Ferrous Sulfate (FERROUS SULFATE) 325 Mg Tablet, 1 TAB PO DAILY for PHU, #30 TAB 3 Refills Prov:HEAVEN KRAUS MD 01/20/19 Oxycodone/Apap 7.5-325 (PERCOCET 7.5-325 MG TABLET ) 1 Each Tablet, 1 TAB PO QID PRN for PAIN MDD 1, #30 TAB Prov:HEAVEN KRAUS MD 12/09/18 Fentanyl (FENTANYL 50mcg/hr) 1 Each Patch.td72, 1 PATCH TP Q3DAYS for pain MDD 1, #7 PATCH Prov:HEAVEN KRAUS MD 12/09/18 Lactobacillus Rhamnosus Gg (CULTURELLE) 1 Each Cap.sprink, 1 CAP PO BID for 30 Days, #60 CAP Prov:JAVIER IRVIN MD 07/07/17 Reported Medications Lorazepam (ATIVAN) 0.5 Mg Tablet, 0.5 MG PO DAILY for Anxiety, TAB 06/28/19 Gabapentin (GABAPENTIN ) 300 Mg Capsule, 300 MG PO HS for NEUROGENIC PAIN, CAP 06/28/19 Valsartan (DIOVAN) 160 Mg Tablet, 160 MG PO DAILY for bp, TAB 05/23/19 Albuterol Sulfate (ALBUTEROL SULFATE NEB SOLN) 0.63 Mg/3 Ml Vial.neb, 1 VIAL NEB QID for copd, #150 ML 1 Refill 12/02/18 Gabapentin (GABAPENTIN ) 300 Mg Capsule, 300 MG PO BID PRN for PAIN, CAP 10/19/18 Amlodipine Besylate (AMLODIPINE BESYLATE) 5 Mg Tablet, 5 MG PO DAILY for htn, TAB 10/19/18 Pantoprazole Sodium (PANTOPRAZOLE SODIUM ) 40 Mg Tablet.dr, 40 MG PEG BID, TAB 03/11/17 Donepezil Hcl (DONEPEZIL HCL) 5 Mg Tablet, 5 MG PEG BID 03/11/17 Metoclopramide Hcl (REGLAN) 10 Mg Tablet, 5 MG PO QIDACHS 03/11/17 Cyproheptadine Hcl (CYPROHEPTADINE HCL) 2 Mg/5 Ml Syrup, 10 ML PEG TID, MISC 03/11/17 Ondansetron (ONDANSETRON ODT) 4 Mg Tab.rapdis, 4 MG PEG QIDPRN PRN for NAUSEA/VOMITING 06/19/14 RUDDY QUEZADA MD Jul 05, 2019 11:00
[2019-07-05 11:30] VITALS: BP 167/84
--- NOTE | 2019-07-05 12:12 | NUR ---
SS following up with discharge planning. Discharge orders received for home healthcare. SS spoke with pt and pt's DPOA and verified that they wanted to return to services with [facility], ; fax [phone]. Pt and pt's DPOA verified. SS phoned and faxed discharge orders and referral to [facility]. Pt's DPOA reported that family was unable to pick pt up today and requested transportation. Pt will discharge today and return to home via [facility] ambulance, , at 1530. Pt and pt's family notified.
[2019-07-05] MEDS ORDERED: ACETAMINOPHEN 650 MG/20.3 ML SOLUTION. PEG ONE (13:00)
[2019-07-05] MEDS ORDERED: HEPARIN PF 500 UNIT/5 ML DISP.SYRIN. IVP ONE (13:15)
--- NOTE | 2019-07-05 15:15 | NUR ---
#4 Shiley cuffed tracheostomy tube removed and replaced with a #6 cuffless fenestrated tracheostomy tube without incident Tube secured with trach tube [place] [employer]
--- NOTE | 2019-07-05 16:37 | NUR ---
Discharge Note: BERNARDO DE LEON Discharge instructions and discharge home medications reviewed with Patient and a copy given. All questions have been answered and understanding verbalized. Patient was taken by sister via private vehicle.
== END 2019-07-05 15:00 | disposition home health service (06) | DRG 207 ==
LOC: ER 19:57 → 1 WEST ICU 22:16 → 5 SOUTH 07-02 13:04 → 2 NORTH 07-03 19:45
PROVIDERS: ADMIT Internal Medicine; ATTEND Internal Medicine
PROC: 5A1955Z Respiratory Ventilation, Greater than 96 Consecutive Hours (ICD-10-PCS; principal; 2019-06-27)
DX: J15.1 Pneumonia due to Pseudomonas (principal); E43 Unspecified severe protein-calorie malnutrition; J96.21 Acute and chronic respiratory failure with hypoxia; J96.22 Acute and chronic respiratory failure with hypercapnia; Z68.1 Body mass index [BMI] 19.9 or less, adult; J84.9 Interstitial pulmonary disease, unspecified; Z16.24 Resistance to multiple antibiotics; Z16.19 Resistance to other specified beta lactam antibiotics; J44.0 Chronic obstructive pulmonary disease with (acute) lower respiratory infection; T40.601A Poisoning by unspecified narcotics, accidental (unintentional), initial encounter; J69.0 Pneumonitis due to inhalation of food and vomit; J15.6 Pneumonia due to other Gram-negative bacteria; J15.9 Unspecified bacterial pneumonia; F03.90 Unspecified dementia, unspecified severity, without behavioral disturbance, psychotic disturbance, mood disturbance, and anxiety; I11.0 Hypertensive heart disease with heart failure; I50.9 Heart failure, unspecified; D63.8 Anemia in other chronic diseases classified elsewhere; R13.10 Dysphagia, unspecified; Z92.21 Personal history of antineoplastic chemotherapy; Z92.3 Personal history of irradiation; Z85.21 Personal history of malignant neoplasm of larynx; Z86.14 Personal history of Methicillin resistant Staphylococcus aureus infection; Z87.01 Personal history of pneumonia (recurrent); Z85.118 Personal history of other malignant neoplasm of bronchus and lung; Z88.6 Allergy status to analgesic agent; Z88.8 Allergy status to other drugs, medicaments and biological substances; Z93.0 Tracheostomy status; Z87.891 Personal history of nicotine dependence; Y92.89 Other specified places as the place of occurrence of the external cause; Z93.1 Gastrostomy status; Z82.49 Family history of ischemic heart disease and other diseases of the circulatory system
CPT/HCPCS: 36415; 36600; 71045; 74018; 74176; 80048; 80053; 80076; 80202; 80329; 81001; 82565; 82805; 83605; 83735; 84484; 85007; 85025; 85610; 87040; 87070; 87186; 87205; 87641; 93005; 94002; 94003; 94640; 94760; 96365; 96375; J0360; J1650; J2060; J2270; J2405; J2543; J3370; J3490; J7030; J7050; J7613; J7620; J8597; Q0162; 92524; 97530; 99285-25; G0378; G0480; J0695

== ENCOUNTER 2019-07-12 06:02 | Emergency (ER) | payer MEDICARE, OTHER ==
[~2019-07-12] VITALS: Ht 165.1 cm; Wt 52.2 kg
[~2019-07-12 06:02] MED LIST changes: +LORA0.5T96 PO
[2019-07-12 06:17] VITALS: BP 131/67
--- NOTE | 2019-07-12 06:34 | PHYS DOC ---
Past Medical History Past Medical History: No Pertinent History Additional Past Medical Histor: Lung CA Past Surgical History: Other Additional Past Surgical Histo: Cataract,PEG tube,CA trach,PORT Alcohol Use: None Drug Use: None Adult General Chief Complaint Chief Complaint: GTUBE REPLACEMENT/MALFUNCTION [facility] HPI Patient is a 79-year-old female who presents after her G-tube fell out somewhere around 10:30 PM last night. Patient needs tube replaced. She denies any chest pain or shortness breath. She denies any abdominal pain.[] Review of Systems Review of Systems Constitutional: Denies fever or chills [] Respiratory: Denies cough or shortness of breath [] Cardiovascular: No additional information not addressed in HPI [] GI: Denies abdominal pain, nausea or vomiting[] Neurologic: Denies headache, focal weakness or sensory changes [] Allergies Allergies Allergies Coded Allergies Type Severity Reaction Last Updated Verified aspirin Allergy Intermediate hives 05/23/19 Yes Physical Exam Physical Exam Constitutional: Well developed, well nourished, no acute distress, non-toxic appearance. [] Cardiovascular:Heart rate regular rhythm, no murmur [] Lungs & Thorax: Bilateral breath sounds clear to auscultation [] Abdomen: Bowel sounds normal, soft, no tenderness. Stoma is clean dry and intact. [] Skin: Warm, dry, no erythema, no rash. [] Current Patient Data Vital Signs Vital Signs Date Time Temp Pulse Resp B/P (MAP) Pulse Ox O2 Delivery O2 Flow Rate FiO2 07/12/19 06:17 98.9 18 131/67 (88) 98 T-Tube 98.9 EKG EKG [] Radiology/Procedures Radiology/Procedures [] Course & Med Decision Making Course & Med Decision Making Pertinent Labs and Imaging studies reviewed. (See chart for details) Stoma site cleaned and draped in normal sterile fashion and an 18 Malay gastrostomy tube with 20 mL balloon was placed without difficulty and balloon inflated to 15 mL. Dragon Disclaimer Dragon Disclaimer This electronic medical record was generated, in whole or in part, using a voice recognition dictation system. Departure Departure Impression: Primary Impression: Dislodged gastrostomy tube Disposition: HOME, SELF-CARE Condition: STABLE Referrals: NO PCP (PCP) Patient Instructions: Gastrostomy Tube, Adult ANA CUADRA Jr. DO Jul 12, 2019 06:34
== END 2019-07-12 06:50 | disposition home or self-care (01) ==
LOC: ER 06:02
DX: K94.23 Gastrostomy malfunction (principal); Z88.6 Allergy status to analgesic agent; Y83.8 Other surgical procedures as the cause of abnormal reaction of the patient, or of later complication, without mention of misadventure at the time of the procedure; Y92.89 Other specified places as the place of occurrence of the external cause
CPT/HCPCS: 43762; 99284

== ENCOUNTER 2019-09-03 08:06 | Emergency (ER) | payer MEDICARE, OTHER ==
[~2019-09-03] VITALS: Ht 167.6 cm; Wt 49.0 kg
[2019-09-03 08:25] VITALS: BP 146/70
--- NOTE | 2019-09-03 08:54 | PHYS DOC ---
Past Medical History Additional Past Medical Histor: Lung CA Past Surgical History: Other Additional Past Surgical Histo: Cataract,PEG tube,CA trach,PORT Alcohol Use: None Drug Use: None Adult General Chief Complaint Chief Complaint: PEG tube came out HPI HPI Patient is a 79 year old female patient with history of laryngeal cancer with tracheostomy and PEG tube in place who presents with complaint of "PEG tube came out". Patient is nonverbal and her sister states her PEG tube came out a few hours ago maybe at 7 AM. Patient denies any problem. Review of Systems Review of Systems Constitutional: Denies fever or chills [] Eyes: Denies change in visual acuity, redness, or eye pain [] HENT: Denies nasal congestion or sore throat [] Respiratory: Denies cough or shortness of breath [] Cardiovascular: No additional information not addressed in HPI [] GI: Denies abdominal pain, nausea, vomiting, bloody stools or diarrhea [] : Denies dysuria or hematuria [] Musculoskeletal: Denies back pain or joint pain [] Integument: Denies rash or skin lesions [] Neurologic: Denies headache, focal weakness or sensory changes [] Endocrine: Denies polyuria or polydipsia [] All other systems were reviewed and found to be within normal limits, except as documented in this note. Allergies Allergies Allergies Coded Allergies Type Severity Reaction Last Updated Verified aspirin Allergy Intermediate hives 05/23/19 Yes Physical Exam Physical Exam Constitutional: Very thin patient , no distress, non-toxic appearance. [] HENT: Normocephalic, atraumatic. Eyes: PERRLA, EOMI, conjunctiva normal, no discharge. [] Neck: Tracheostomy tube in place Cardiovascular:Heart rate regular rhythm, no murmur [] Lungs & Thorax: Bilateral breath sounds clear to auscultation [] Abdomen: Bowel sounds normal, soft, no tenderness, no masses, no pulsatile masses. Orifice of PEG tube in left upper quadrant without sign of infection[] Skin: Warm, dry, no erythema, no rash. [] Back: No tenderness, no CVA tenderness. [] Extremities: No tenderness, no cyanosis, no clubbing, ROM intact, no edema. [] Neurologic: Alert and oriented, no focal deficits noted. [] Psychologic: Affect normal. Current Patient Data Vital Signs Vital Signs Date Time Temp Pulse Resp B/P (MAP) Pulse Ox O2 Delivery O2 Flow Rate FiO2 09/03/19 08:25 98.3 103 18 146/70 (95) 98 Simple Mask 5.0 98.3 EKG EKG [] Radiology/Procedures Radiology/Procedures PEG tube replacement 18 Croatian PEG tube was placed without problem with good irrigation of fluid. Course & Med Decision Making Course & Med Decision Making Evaluation of patient in ER showed 79-year-old female patient with dislodged PICU that was placed without problem in ER with 18 Croatian PEG tube. Dragon Disclaimer Dragon Disclaimer This electronic medical record was generated, in whole or in part, using a voice recognition dictation system. Departure Departure Impression: Primary Impression: PEG tube malfunction Disposition: HOME, SELF-CARE (0853) Condition: IMPROVED Referrals: CATHERINE MOSCOSO MD (PCP) Patient Instructions: PEG, Home Care, [id number] Additional Instructions: Continue her home medication Follow-up with your primary care physician in 3-5 days Return to ER if not getting better Thank you for visiting [facility]. We appreciate you trusting us with your care. If any additional problems come up don't hesitate to return to visit us. Please follow up with your primary care provider so they can plan additional care if needed and know about the problem that you had. If symptoms worsen come back to the Emergency Department. Any concerning symptoms that start such as chest pain, shortness of air, weakness or numbness on one side of the body, running high fevers or any other concerning symptoms return to the ER. YANA HICKS MD Sep 03, 2019 08:54
== END 2019-09-03 09:03 | disposition home or self-care (01) ==
LOC: ER 08:06
DX: K94.23 Gastrostomy malfunction (principal); Y83.8 Other surgical procedures as the cause of abnormal reaction of the patient, or of later complication, without mention of misadventure at the time of the procedure; Z85.118 Personal history of other malignant neoplasm of bronchus and lung; Z88.6 Allergy status to analgesic agent
CPT/HCPCS: 43762; 99284

== ENCOUNTER → 2019-09-20 | Outpatient (CLI) | payer MEDICARE, OTHER ==
[2019-09-03 08:25] VITALS: BP 146/70
[~2019-09-20] MED LIST changes: +CONTRAST GIVEN. MC PRN
[2019-09-20 12:41] LABS: CREATININE 0.7 mg/dL (0.6-1.0); GFR 97.9
[2019-09-20] MEDS: IOHEXOL 300 MG/ML 100ML VIAL. IV ONE (12:45)
[2019-09-20] MEDS: HEPARIN PF 500 UNIT/5 ML DISP.SYRIN. IVP ONE (13:00)
--- NOTE | 2019-09-21 13:18 | RAD ---
Examination: CT SOFT TISSUE NECK W/CONTRAST History: Hypopharyngeal cancer Comparison/Correlation: 03/13/2019 CT cervical spine without contrast, 07/20/2015 CT neck with contrast Findings: Axial images of the neck were obtained following IV contrast. Sagittal and coronal reformatted images were provided. Visualized posterior fossa is unremarkable. The nasopharynx and oropharynx are symmetric. Superior hypopharynx is also symmetric. Epiglottis is normal. At the right false cord level, there is notable asymmetry with heterogeneous enhancing mass measuring 1.7 cm anteroposterior by 1.1 cm transverse by nearly 1 cm longitudinal. Effacement of the right piriform sinus noted. Tracheostomy tube is present. No enlarged cervical lymph nodes. Facet joint degenerative changes present. Significant C5-6 and C6-7 disc space narrowing is evident. Impression on the neural foramina is noted primarily in the right at these levels. No enlarged cervical lymph nodes evident. Marked emphysematous involvement of the lung apices noted. Note is made of proximal left internal carotid arterial narrowing of approximately 66 percent with calcific plaque evident. This is best seen on coronal image 34 of series 5. Impression: Mass at the right false cord level with effacement of the right piriform sinus. Correlate with reported history of hypopharyngeal cancer. No enlarged cervical lymph nodes. Left proximal internal carotid arterial stenosis of approximately 66 percent. PQRS Compliance Statement: One or more of the following individualized dose reduction techniques were utilized for this examination: 1. Automated exposure control 2. Adjustment of the mA and/or kV according to patient size 3. Use of iterative reconstruction technique Electronically signed by: Joshua Coburn MD (09/21/2019 1:15 PM) [place]
== END | disposition home or self-care (01) ==
LOC: CT 12:53
PROVIDERS: ATTEND Radiology Radiation Oncology
DX: C13.9 Malignant neoplasm of hypopharynx, unspecified (principal); J43.9 Emphysema, unspecified; I65.22 Occlusion and stenosis of left carotid artery
CPT/HCPCS: 36415; 70491; 82565; Q9967

== ENCOUNTER → 2020-01-23 | Outpatient (CLI) | payer MEDICARE, OTHER ==
[~2020-01-23] MED LIST changes: -CONTRAST GIVEN. MC PRN
--- NOTE | 2020-01-23 16:21 | RAD ---
EXAM: 1. CT NECK SOFT TISSUES WITHOUT CONTRAST. 2. CT CHEST WITHOUT CONTRAST. HISTORY: Laryngeal squamous cell carcinoma. TECHNIQUE: Computed tomography of the neck soft tissues and chest was performed without intravenous contrast. One or more of the following individualized dose reduction techniques were utilized for this examination: 1. Automated exposure control. 2. Adjustment of the mA and/or kV according to patient size. 3. Use of iterative reconstruction technique. COMPARISON: 09/20/2019, 06/15/2018. FINDINGS: Bone windows reveal no suspicious lesions. Thoracotomy defect is noted along the right anterolateral rib. Images of the upper abdomen demonstrate a gastrostomy catheter in the stomach. There are postoperative changes at the hiatus. There are limitations on the neck soft tissues examination from exclusion of the anterosuperior aspects of the pharynx and face from the [id number]. A tracheostomy appliance is in expected position. A right-sided port catheter has its tip in the superior cavoatrial junction. The previously noted mass along the right false cord is less well-defined without contrast. There is a residual region of ill-defined soft tissue thickening of the retropharyngeal soft tissues without a clear definable mass. There are no pathologically enlarged cervical lymph nodes. The parotid glands and submandibular glands are severely atrophic bilaterally. The thyroid gland is atrophic without focal lesions. There is a loculated small pleural effusion in the medial left lung base, adjacent to chronic atelectasis of the medial aspect of the left lower lobe. Regions of consolidation, nodular infiltrates and interstitial line thickening throughout both bases are associated with bronchiectasis on the right greater than left, and are consistent with chronic aspiration. These have increased. Centrilobular and paraseptal emphysema are moderate. A small nodule on series 8 image 110 in the left upper lobe measures 6 x 4 mm and was not clearly seen previously. This is indeterminate but may be inflammatory given the aforementioned findings. The main pulmonary artery measures 3.1 cm. The heart is at least mildly enlarged. There are no pathologically enlarged mediastinal or axillary lymph nodes. IMPRESSION: 1. Limitations secondary to exclusion of portions of the anatomy from the [id number] and the lack of contrast enhancement. The previously noted right false cord mass appears less prominent, though the difference may be technical. Postcontrast examinations may be more useful on future follow-up. 2. No pathologically enlarged cervical lymph nodes. 3. Diffuse nodular infiltrates, bronchiectasis and septal line thickening throughout the bases are consistent with chronic aspiration and are increased. 4. A 6 mm nodule in the left upper lobe appears new but may be postinflammatory given the aforementioned findings. Attention on further follow-up. 5. Moderate centrilobular emphysema. Electronically signed by: Danny Nevarez MD (01/23/2020 4:18 PM) [id number]
== END | disposition home or self-care (01) ==
LOC: CT 13:20
PROVIDERS: ATTEND Internal Medicine Hematology & Oncology
DX: C32.9 Malignant neoplasm of larynx, unspecified (principal); J43.2 Centrilobular emphysema; K11.0 Atrophy of salivary gland; J90 Pleural effusion, not elsewhere classified; J98.11 Atelectasis; I11.0 Hypertensive heart disease with heart failure; I50.9 Heart failure, unspecified; F17.200 Nicotine dependence, unspecified, uncomplicated; Z88.8 Allergy status to other drugs, medicaments and biological substances; Z92.21 Personal history of antineoplastic chemotherapy
CPT/HCPCS: 70490; 71250

== ENCOUNTER 2020-01-31 04:00 | Emergency (ER) | payer MEDICARE, OTHER ==
[~2020-01-31] VITALS: Ht 175.3 cm; Wt 52.3 kg
[2020-01-31 04:04] VITALS: BP 163/74
--- NOTE | 2020-01-31 04:12 | PHYS DOC ---
Past Medical History Past Medical History: Cancer Additional Past Medical Histor: Lung CA Past Surgical History: Other Additional Past Surgical Histo: Cataract,PEG tube,CA trach,PORT Smoking Status: Never Smoker Alcohol Use: None Drug Use: None General Adult EDM: Chief Complaint: GTUBE REPLACEMENT/MALFUNCTION HPI: HPI: Patient is a 79 year old female with chronic PEG tube presents with report that her PEG tube fell out. Per [facility] review a similar issue brought patient to ED in Aug 2019. At that time a 19F PEG was replaced. Review of Systems: Review of Systems: Constitutional: Denies fever or chills Eyes: Denies redness or eye pain HENT: Denies nasal congestion or sore throat Respiratory: Denies cough or shortness of breath Cardiovascular: Denies chest pain or palpitations GI: Denies abdominal pain, nausea, or vomiting : Denies dysuria or hematuria Musculoskeletal: Denies back pain or joint pain Integument: Denies rash or skin lesions Neurologic: Denies headache, focal weakness or sensory changes Complete systems were reviewed and found to be within normal limits, except as documented in this note. Allergies: Allergies: Allergies Coded Allergies Type Severity Reaction Last Updated Verified aspirin Allergy Intermediate hives 05/23/19 Yes Physical Exam: PE: Constitutional: Well developed, well nourished, no acute distress, non-toxic appearance HENT: Normocephalic, atraumatic, trach noted Eyes: Conjunctiva normal, no discharge Neck: Normal range of motion, supple Lungs & Thorax: No respiratory distress, equal chest rise and fall Abdomen: Soft, no tenderness, PEG stoma without surrounding erythema Skin: Warm, dry, no erythema, no rash Neurologic: Alert, speech normal EKG: EKG: [] Radiology/Procedures: Radiology/Procedures: [] Course & Med Decision Making: Course & Med Decision Making Patient presents to ER for replacement of PEG tube. PEG tube replaced with success. Patient stable for discharge with outpatient follow-up with PCP. Discussed findings and plan with patient, who acknowledges understanding and agreement. Román Disclaimer: Román Disclaimer: This electronic medical record was generated, in whole or in part, using a voice recognition dictation system. Additional Procedures Additional Procedures : Additional Procedures: gastric tube replacement Progress Verbal consent obtained. Time out performed. Hand hygiene utilized. Wound cleaned with ChloraPrep. 18 Haitian PEG replaced and 20mls of sterile saline used to inflate balloon. Buttress adjusted. Water flushed without difficulty or discomfort. Patient tolerated procedure well and without difficulty. Departure Departure Impression: Primary Impression: PEG tube malfunction Disposition: HOME, SELF-CARE Condition: STABLE Referrals: CATHERINE MOSCOSO MD (PCP) Patient Instructions: PEG, Home Care, [id number] PERRY PAGAN DO January 31, 2020 04:12
== END 2020-01-31 04:23 | disposition home or self-care (01) ==
LOC: ER 04:00
DX: K94.23 Gastrostomy malfunction (principal); Z85.118 Personal history of other malignant neoplasm of bronchus and lung; Z98.890 Other specified postprocedural states; Z88.6 Allergy status to analgesic agent
CPT/HCPCS: 43763; 99284

== ENCOUNTER 2020-02-16 10:29 | Emergency (ER) | payer MEDICARE, OTHER ==
[~2020-02-16] VITALS: Ht 175.3 cm; Wt 52.3 kg
[2020-02-16] MEDS ORDERED: IV NORMAL SALINE 500ML BAG 500 ML IV ONE (11:00)
[2020-02-16] MEDS ORDERED: fentaNYL PF VIAL 100 MCG/2 ML VIAL IV ONE (11:00)
[2020-02-16] MEDS ORDERED: ONDANSETRON PF 4 MG/2 ML VIAL. IV ONE (11:00)
--- NOTE | 2020-02-16 11:23 | RAD ---
AP view of the abdomen Clinical indications: G-tube pain. FINDINGS: Gastrostomy tube is seen within the upper mid abdomen. Surgical clips are seen in the epigastric region. No obstructive bowel pattern is seen. Multiple calcified fibroids of the pelvis are seen. No lytic process is seen. IMPRESSION: No obstructive bowel pattern. Calcified uterine fibroids. Electronically signed by: Mu Mead MD (02/16/2020 11:21 AM) [id number]
--- NOTE | 2020-02-16 11:42 | PHYS DOC ---
Past Medical History Past Medical History: Cancer Additional Past Medical Histor: Lung CA Past Surgical History: Other Additional Past Surgical Histo: Cataract,PEG tube,CA trach,PORT Smoking Status: Never Smoker Alcohol Use: None Drug Use: None General Adult EDM: Chief Complaint: GI PROBLEM HPI: HPI: Patient is a 79-year-old female with a history of a G-tube who presents today with some abdominal pain. She states the G-tube pulled out a little bit and when she injected meds and fluids this morning she felt a little bit more pain. She still has pain currently but no fever chills or sweats no nausea or vomiting. She states she is passing gas. She denies any melena or hematemesis. She states she did not meet any resistance or have pain while she was pushing the fluids and medicines through the tube. [] Review of Systems: Review of Systems: Constitutional: Denies fever or chills. [] Eyes: Denies change in visual acuity. [] HENT: Denies nasal congestion or sore throat. [] Respiratory: Denies cough or shortness of breath. [] Cardiovascular: Denies chest pain or edema. [] GI: Per HPI. [] : Denies dysuria. [] Musculoskeletal: Denies back pain or joint pain. [] Integument: Denies rash. [] Neurologic: Denies headache, focal weakness or sensory changes. [] Endocrine: Denies polyuria or polydipsia. [] Lymphatic: Denies swollen glands. [] Psychiatric: Denies depression or anxiety. [] Heart Score: Risk Factors: Risk Factors: DM, Current or recent (<one month) smoker, HTN, HLP, family history of CAD, obesity. Risk Scores: Score 0 - 3: 2.5% MACE over next 6 weeks - Discharge Home Score 4 - 6: 20.3% MACE over next 6 weeks - Admit for Clinical Observation Score 7 - 10: 72.7% MACE over next 6 weeks - Early Invasive Strategies Current Medications: Current Medications Medications (Trade) Dose Ordered Sig/Yuliana Start Time Stop Time Status Last Admin Dose Admin Fentanyl Citrate (Fentanyl 2ml Vial) 25 mcg 1X ONCE 02/16/20 11:00 02/16/20 11:01 DC Ondansetron HCl (Zofran) 4 mg 1X ONCE 02/16/20 11:00 02/16/20 11:01 DC Sodium Chloride 500 ml @ 500 mls/hr 1X ONCE 02/16/20 11:00 02/16/20 11:59 Allergies: Allergies: Allergies Coded Allergies Type Severity Reaction Last Updated Verified aspirin Allergy Intermediate hives 05/23/19 Yes Physical Exam: PE: Constitutional: Frail elderly she does not appear to be in any distress and does not appear acutely ill. [] HENT: Normocephalic, atraumatic, bilateral external ears normal, oropharynx mika st, no oral exudates, nose normal. [] Eyes: PERRLA, EOMI, conjunctiva normal, no discharge. [] Neck: Normal range of motion, no tenderness, supple, no stridor. [] Cardiovascular:Heart rate regular rhythm, no murmur [] Lungs & Thorax: Bilateral breath sounds clear to auscultation [] Abdomen: Bowel sounds normal, soft, no tenderness, no masses, G-tube is pulled back but it was easily pushed in was pulled back against the balloon I do not believe the tube was ever dislodged. [] Skin: Warm, dry, no erythema, no rash. [] Back: No tenderness, no CVA tenderness. [] Extremities: No tenderness, no cyanosis, no clubbing, ROM intact, no edema. [] Neurologic: Alert and oriented X 3, normal motor function, normal sensory function, no focal deficits noted. [] Psychologic: Anxious [] Current Patient Data: Vital Signs: Vital Signs Date Time Temp Pulse Resp B/P (MAP) Pulse Ox O2 Delivery O2 Flow Rate FiO2 02/16/20 10:35 98.4 100 21 184/97 (126) 99 Room Air 98.4 EKG: EKG: [] Radiology/Procedures: Radiology/Procedures: []REASON: G-tube pain PROCEDURE: KUB AP view of the abdomen Clinical indications: G-tube pain. FINDINGS: Gastrostomy tube is seen within the upper mid abdomen. Surgical clips are seen in the epigastric region. No obstructive bowel pattern is seen. Multiple calcified fibroids of the pelvis are seen. No lytic process is seen. IMPRESSION: No obstructive bowel pattern. Calcified uterine fibroids. Course & Med Decision Making: Course & Med Decision Making Pertinent Labs and Imaging studies reviewed. (See chart for details) [ED course: Evaluation reveals a 79-year-old female who is G-tube was pulled back a little bit. The balloon was still inflated and intact. I was able to advance the G-tube 3 or 4 cm where the gasket was up against the abdominal wall. She tolerated this well. There was no evidence of free air in the abdomen on her KUB.] Román Disclaimer: Dragon Disclaimer: This electronic medical record was generated, in whole or in part, using a voice recognition dictation system. Departure Departure Impression: Primary Impression: Malfunction of gastrostomy tube Disposition: HOME, SELF-CARE Condition: STABLE Referrals: CATHERINE MOSCOSO MD (PCP) Patient Instructions: Gastrostomy Tube, Adult Additional Instructions: Return to the emergency department with any new or concerning symptoms Justicifation of Admission Dx: Justifications for Admission: Justification of Admission Dx: No KAYY GARCIA DO Feb 16, 2020 11:42
[2020-02-16 12:22] LABS: BILIRUBIN,URINE NEGATIVE (NEG); CLARITY,URINE CLEAR; COLOR,URINE YELLOW; NITRITE,URINE NEGATIVE (NEG); PH,URINE 7.5 (<5.0-8.0); PROTEIN,URINE 100 mg/dL (NEG-TRACE); UROBILINOGEN,URINE 0.2 mg/dL (0.2 mg/dL)
[2020-02-16 12:28] LABS: AMORPHOUS SEDIMENT,UR PRESENT /HPF; BACTERIA,URINE FEW /HPF (0-FEW); HYALINE CASTS, URINE OCCASIONAL /HPF; RBC,URINE RARE /HPF (0-2); SQUAMOUS EPITHELIAL CELL,UR FEW /LPF
[2020-02-16 12:41] LABS: BASO # 0.1 x10^3/uL (0.0-0.2); BASO % 1 % (0-3); EOS # 0.1 x10^3/uL (0.0-0.7); EOS % 1 % (0-3); HEMATOCRIT 39.6 % (36.0-47.0); LYMPH # 2.3 x10^3/uL (1.0-4.8); LYMPH % 25 % (24-48); MEAN CORPUSCULAR HEMOGLOBIN 28 pg (25-35); MEAN CORPUSCULAR HGB CONC 33 g/dL (31-37); MEAN CORPUSCULAR VOLUME 86 fL (79-100); MONO # 0.4 x10^3/uL (0.0-1.1); MONO % 4 % (0-9); NEUT # 6.3 x10^3/uL (1.8-7.7); NEUT % 69 % (31-73); PLATELET COUNT 302 x10^3/uL (140-400); RED BLOOD COUNT 4.62 x10^6/uL (3.50-5.40); RED CELL DISTRIBUTION WIDTH 14.9 % (11.5-14.5); WHITE BLOOD COUNT 9.1 x10^3/uL (4.0-11.0)
[2020-02-16 12:54] LABS: CALCIUM 9.7 mg/dL (8.5-10.1); CREATININE 0.9 mg/dL (0.6-1.0); GFR 73.3; POTASSIUM 4.2 mmol/L (3.5-5.1)
[2020-02-16 13:04] LABS: ALBUMIN/GLOBULIN RATIO 0.5 (1.0-1.7); TOTAL BILIRUBIN 1.2 mg/dL (0.2-1.0); TOTAL PROTEIN 8.8 g/dL (6.4-8.2)
[2020-02-16 13:06] VITALS: BP 102/96
[2020-02-16] MEDS ORDERED: HEPARIN PF 500 UNIT/5 ML DISP.SYRIN. IVP ONE (13:45)
== END 2020-02-16 13:50 | disposition home or self-care (01) ==
LOC: ER 10:29
DX: K94.23 Gastrostomy malfunction (principal); R10.9 Unspecified abdominal pain; Z85.118 Personal history of other malignant neoplasm of bronchus and lung; Z88.6 Allergy status to analgesic agent
CPT/HCPCS: 36415; 74018; 80053; 81001; 83690; 85025; 87086; 96374; 96375; 99284; J1642; J2405; J3010; J7040

== ENCOUNTER 2020-03-19 07:08 | Outpatient (CLI) | payer MEDICARE, OTHER ==
[~2020-03-19] VITALS: Ht 175.3 cm; Wt 52.6 kg
[2020-03-19 07:30] VITALS: BP 174/91
[2020-03-19] MEDS ORDERED: IOHEXOL 240 MG/ML 50ML VIAL. ONE (08:33)
[2020-03-19] MEDS ORDERED: IOHEXOL 240 MG/ML 50ML VIAL. IJ ONE (08:45)
[2020-03-19] MEDS ORDERED: CONTRAST GIVEN. MC PRN (09:00)
--- NOTE | 2020-03-19 09:30 | NUR ---
Discharge Note: BERNARDO DE LEON Discharge instructions and discharge home medications reviewed with Family Member and a copy given. All questions have been answered and understanding verbalized. The following instructions and handouts were given: gastric tube replacement. Discontinued lines and drains: No IV this visit. Patient discharged to home with daughter via wheelchair to private vehicle.
--- NOTE | 2020-03-19 16:02 | RAD ---
Fluoroscopic guided replacement of gastrostomy tube 03/19/2020 Indication: Pre-existing gastrostomy tube malfunction. Routine exchange. 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 Informed consent was obtained. The pre-existing catheter was evaluated and found to be completely obstructed. The retention balloon was deflated and the catheter removed. It was replaced with a new 18 [place]ian catheter. The retention balloon was filled with 6 cc sterile water. The balloon was retracted against the anterior gastric wall, and the catheter secured with variable sella. Contrast was administered to confirm appropriate placement. Total fluoroscopy time: 0.5 minutes Dose area product:: 1 Gycm2 Impression: Fluoroscopically guided replacement of percutaneous gastrostomy
== END 2020-03-19 09:30 | disposition home or self-care (01) ==
LOC: INTRAD 07:08
PROVIDERS: ATTEND Internal Medicine Gastroenterology
DX: K94.23 Gastrostomy malfunction (principal)
CPT/HCPCS: 49450; C1769; Q9966

== ENCOUNTER → 2020-05-04 | Outpatient (CLI) | payer MEDICARE, OTHER ==
--- NOTE | 2020-05-04 09:29 | RAD ---
EXAM: Chest ultrasound. HISTORY: Palpable focus chest wall. Recent fall. COMPARISON: None. FINDINGS: Sonographic evaluation of the site of palpable concern along the right ribs. This reveals only normal subcutaneous fat, the underlying ribs and intercostal musculature. No mass or fluid collection is identified. No mass could be palpated currently. IMPRESSION: 1. No sonographic correlate for a palpable focus. Only normal structures are seen. Recommend ongoing clinical follow-up of palpable foci. Electronically signed by: Danny Nevarez MD (05/04/2020 9:26 AM) [id number]
== END | disposition home or self-care (01) ==
LOC: US 08:49
PROVIDERS: ATTEND Internal Medicine Hematology & Oncology
DX: C32.9 Malignant neoplasm of larynx, unspecified (principal); R22.2 Localized swelling, mass and lump, trunk
CPT/HCPCS: 76604